=== PATIENT | male | born 1960 | race Hispanic/Latino ===

== ENCOUNTER 2019-03-11 22:20 | Emergency (ER) | payer OTHER ==
--- OUTSIDE RECORDS SUMMARY | 2019-03-11 22:22 | XMS REPORT | Summary of Care ---
:1960 Author Organization [facility] Address [address] [place] [id number] Care Team Providers Name Role Phone Oriana Albrecht MD Primary Care Provider Christos Brown MD Unavailable Unavailable Lawrence Goff MD Unavailable Reason for Visit Reason Comments Forms Encounter Details Date Type Department Care Team Description 11/08/2018 Telephone [facility] Cardiology- Andrea Cabrera MD Forms [place] [address] [facility] 146 [facility], [address] [place] [address] [place] [address] Allergies No Known Allergiesdocumented as of this encounter (statuses as of 11/18/2018) Medications Medication Sig Dispensed Refills Start Date End Date Status aspirin 81 mg chewable Take 1 tablet by 90 tablet 1 12/17/2015 Active tablet mouth daily. acetaminophen (TYLENOL Take 500 mg by 0 Active EXTRA STRENGTH) 500 mg mouth every 6 tablet (six) hours as needed for Pain. Blood-Glucose Meter Use TID, DX 1 Kit 0 03/30/2017 Active KitIndications: Type 2 E11.9 (Brand diabetes mellitus upon insurance without complication, approval) with long-term current use of insulin Insulin [place], Use as directed 1 Box 6 09/07/2017 Active Disposable, 30 gauge x 5/16" Ndle ipratropium 0.03 % Use 2 Sprays in 30 mL 3 03/21/2018 Active nasal each nostril 3 sprayIndications: (three) times Rhinorrhea daily. nitroglycerin Place 1 tablet 1 Bottle 3 03/21/2018 Active (NITROSTAT) 0.4 mg under the tongue sublingual every 5 (five) tabletIndications: minutes as Coronary artery needed for Chest disease involving pain. [place] coronary artery of [place] heart without angina pectoris insulin degludec inject 24 Units 3 Syringe 3 04/05/2018 Active (TRESIBA FLEXTOUCH under the skin U-100) 100 unit/mL (3 at bedtime. mL) InPnIndications: Type 2 diabetes mellitus without complication, without long-term current use of insulin Insulin Syringe-Needle Inject insulin 2 100 Syringe 11 06/19/2018 Active U-100 0.5 mL 31 gauge times a day. Dx x 09/05 code E11.9. SyrgIndications: Type 2 diabetes mellitus without complication, without long-term current use of insulin Insulin [place], Use with KwikPen 100 Each 3 06/19/2018 Active Disposable, once a day. (ULTRA-THIN II INS PEN E11.9 NEEDLES) 29 gauge x 1/2" NdleIndications: Type 2 diabetes mellitus without complication, with long-term current use of insulin lancets (FREESTYLE Use TID, DX 100 Each 06/19/2018 Active LANCETS) 28 gauge Misc E11.9 (Brand upon insurance approval) lancets-blood glucose 1 Each 3 (three) 100 Each 11 06/19/2018 Active strips 30 gauge Cmpk times daily. Use TID, DX E11.9 (Brand upon insurance approval) Patient request Verio flex one touch. ACCU-CHEK [place] strip Use as directed, 100 Strip 11 07/04/2018 Active TID, DX:E11.9 allopurinol 100 mg Take 1 tablet by 90 tablet 3 07/23/2018 Active tabletIndications: mouth daily. Primary osteoarthritis of left knee atorvastatin 80 mg TAKE 1 TABLET BY 90 tablet 1 09/13/2018 Active tabletIndications: MOUTH ONCE DAILY Chronic combined systolic and diastolic congestive heart failure metFORMIN 1,000 mg TAKE ONE TABLET 90 tablet 3 09/17/2018 Active tabletIndications: BY MOUTH ONCE Type 2 diabetes DAILY WITH mellitus without BREAKFAST complication, without long-term current use of insulin glipiZIDE XL 10 mg 24 Take 2 tablets 180 tablet 1 09/17/2018 Active hr tabletIndications: by mouth daily Type 2 diabetes with breakfast. mellitus without complication, without long-term current use of insulin isosorbide mononitrate Take 1 tablet by 30 tablet 2 09/18/2018 Active 30 mg 24 hr mouth daily. tabletIndications: Essential hypertension, Chronic combined systolic and diastolic congestive heart failure spironolactone 25 mg Take 1 tablet by 30 tablet 3 09/18/2018 Active tabletIndications: mouth daily. Chronic combined systolic and diastolic congestive heart failure clopidogrel 75 mg TAKE 1 TABLET BY 90 tablet 1 09/18/2018 Active tabletIndications: MOUTH ONCE DAILY Chronic combined systolic and diastolic congestive heart failure lisinopril 5 mg Take 2 tablets 30 tablet 2 09/18/2018 Active tabletIndications: by mouth daily. Essential hypertension, Type 2 diabetes mellitus without complication, without long-term current use of insulin metoprolol succinate TAKE 1 TABLET BY 30 tablet 2 09/18/2018 Active XL 50 mg 24 hr MOUTH ONCE DAILY tabletIndications: Essential hypertension furosemide 40 mg Take 0.5 tablets 45 tablet 0 11/05/2018 Active tabletIndications: by mouth daily. Essential hypertension documented as of this encounter (statuses as of 11/18/2018) Active Problems Problem Noted Date Dyspnea 07/24/2017 CASPER (dyspnea on exertion) 05/11/2017 Type 2 diabetes mellitus without complication, without long-term current 01/03 use of insulin KENYA (acute kidney injury) 09/05/2016 S/P ICD (internal cardiac defibrillator) procedure 08/08/2016 NSTEMI (non-ST elevated myocardial infarction) 12/13/2015 Hyperglycemia 12/13/2015 Chest pain 12/12/2015 Coronary artery disease involving [place] coronary artery without angina 2015 pectoris Essential hypertension 06/15/2014 Overview: ICD10 Diagnosis 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 S/p PCI ? vessel Ischemic cardiomyopathy 06/15/2014 Overview: EF 20% per pt 10/04 Smoking 1/2 pack a day or less 06/15/2014 Thyroid disease documented as of this encounter (statuses as of 11/18/2018) Resolved Problems Problem Noted Date Resolved Date Left ventricular apical thrombus 12/13/2015 01/12/2016 Overview: Likely LV apical thrombus but needs contrast ECHO to confirm. DM (diabetes mellitus) 06/15/2014 05/22/2016 documented as of this encounter (statuses as of 11/18/2018) Immunizations Name Administration Dates Next Due Influenza Virus Vaccine 01/24/2018 Influenza Virus Vaccine Quad IM 3+ YRS 02/12/2017, 02/03/2016 Pneumococcal Polysaccharide, PPSV23 (PNEUMOVAX) 01/24/2018, 02/03/2016 documented as of this encounter Social History Tobacco Use Types Packs/Day Years Used Date Former Smoker Cigarettes 1.5 25 Quit: 04/23/2015 Smokeless Tobacco: Never Used Alcohol Use Drinks/Week oz/Week Comments Yes 0 Standard drinks or equivalent 0.0 once a month Sex Assigned at Date Recorded Not on file Job Start Date Occupation Industry Not on file Not on file Not on file Travel History Travel Start Travel End No recent travel history available. documented as of this encounter Last Filed Vital Signs Not on filedocumented in this encounter Plan of Treatment Date Type Specialty Care Team Description 12/09/2018 Laboratory Only Flying Squad Worker, Adc Cardio Fac 1, Adc Cardio Fac Room 12/13/2018 Nurse Visit Cardiology Visit, Adc Nurse 05/05/2019 Office Visit Cardiology Andrea Cabrera MD [address] [place] [address] [phone] Health Maintenance Due Date Last Done Comments COLONOSCOPY 06/26/2011 LUNG CANCER SCREEN: 2016 Recommended for age 55-80 with 30 + pack year history FOOT EXAM 05/10/2018 05/10/2017, 05/10/2017, 12/20/2015 EYE EXAM 07/23/2018 07/23/2017 (Previously completed), 12/03/2013 (Previously completed) URINE MICROALBUMIN 08/15/2018 08/15/2017, 12/20/2015 INFLUENZA VACCINE 12/22/2018 01/24/2018, 02/12/2017, 02/03/2016 HgA1C 01/04/2019 07/04/2018, 03/26/2018, 11/07/2017, Additional history exists DTaP,Tdap,and Td Vaccines 03/21/2019 Postponed from (1 - Tdap) 1980 (Insurance / Financial) Zoster Recombinant Vaccine 03/21/2019 Postponed from (SHINGRIX) (1 of 2) 06/26/2011 (Insurance / Financial) LDL-C 03/26/2019 03/26/2018, 09/01/2016, 11/23/2015 CREATININE (SERUM) 11/07/2019 11/06/2018, 03/26/2018, 02/11/2018, Additional history exists HEPATITIS C (HCV) SCREEN Completed 08/15/2017 PNEUMOCOCCAL 0-64 YEARS Completed 01/24/2018, 02/03/2016 COMBINED SERIES documented as of this encounter Implants Implanted Type Area Almond Cutting Machine Tender Device Identifier Shelf Expiration Model / Date Serial / Lot Pacemaker PACEMAKER Chest documented as of this encounter Results Not on filedocumented in this encounter Insurance Payer Benefit Plan / Subscriber ID Effective Phone Address Type Group Dates [facility] MEDICARE [id number] 2016-Prese Medicare Adv HEALTHCARE - COMPLETE nt O MANAGED MEDICARE documented as of this encounter
--- OUTSIDE RECORDS SUMMARY | 2019-03-11 22:22 | XMS REPORT ---
:1960 Author Organization [facility] Address [address] [place] [address] Care Team Providers Name Role Phone Unavailable Unavailable Unavailable Problems This patient has no known problems. Allergies, Adverse Reactions, Alerts This patient has no known allergies or adverse reactions. Medications This patient has no known medications. Encounters Start End Encounter Admission Attending Care Care Encounter Date/Time Date/Time Type Type Clinicians Facility Department ID 2019-01-16 2019-01-16 Outpatient E [facility] [id number] 11:09:00 11:09:00
--- OUTSIDE RECORDS SUMMARY | 2019-03-11 22:23 | XMS REPORT | Summary of Care ---
:1960 Author Organization [facility] Address [address] [place] [address] Care Team Providers Name Role Phone Oriana Albrecht MD Primary Care Provider Christos Brown MD Unavailable Unavailable Lawrence Goff MD Unavailable Reason for Visit Reason Comments Forms Encounter Details Date Type Department Care Team Description 12/04/2018 Telephone [facility] Cardiology- Andrea Cabrera MD Forms [place] 146 [facility] 146 [facility], [address] [place] [address] [place] [address] Allergies No Known Allergiesdocumented as of this encounter (statuses as of 12/05/2018) Medications Medication Sig Dispensed Refills Start Date [...] with long-term current use of insulin Insulin [place], Use as directed 1 Box 6 09/07/2017 [...] artery needed for Chest disease involving pain. [place] coronary artery of [place] heart without angina pectoris insulin degludec inject [...] without long-term current use of insulin Insulin [place], Use with KwikPen 100 Each 3 06/19/2018 [...] as of this encounter (statuses as of 12/05/2018) Active Problems Problem Noted Date Dyspnea 07/24/2017 CASPER (dyspnea on exertion) 05/11/2017 Type 2 diabetes mellitus without complication, without long-term current 01/03 use of insulin KENYA (acute kidney injury) 09/05/2016 S/P ICD (internal cardiac defibrillator) procedure 08/08/2016 NSTEMI (non-ST elevated myocardial infarction) 12/13/2015 Hyperglycemia 12/13/2015 Chest pain 12/12/2015 Coronary artery disease involving [place] coronary artery without angina 2015 pectoris Essential hypertension 06/15/2014 Overview: ICD10 Diagnosis 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 S/p PCI ? vessel Ischemic cardiomyopathy 06/15/2014 Overview: EF 20% per pt 10/04 Smoking 1/2 pack a day or less 06/15/2014 Thyroid disease documented as of this encounter (statuses as of 12/05/2018) Resolved Problems Problem Noted Date Resolved Date Left ventricular apical thrombus 12/13/2015 01/12/2016 Overview: Likely LV apical thrombus but needs contrast ECHO to confirm. DM (diabetes mellitus) 06/15/2014 05/22/2016 documented as of this encounter (statuses as of 12/05/2018) Immunizations Name Administration Dates Next Due Influenza [...] Specialty Care Team Description 12/09/2018 Laboratory Only Contact Worker, Adc Cardio Fac 1, Adc Cardio Fac Room 12/13/2018 Nurse Visit Cardiology Visit, Adc Nurse 05/05/2019 Office Visit Cardiology Andrea Cabrera MD [address] [place] [address] [phone] Health Maintenance Due Date Last Done Comments COLONOSCOPY 06/26/2011 LUNG CANCER SCREEN: 2016 Recommended for age 55-80 with 30 + pack year history FOOT EXAM 05/10/2018 05/10/2017, 05/10/2017, 12/20/2015 EYE EXAM 07/23/2018 07/23/2017 (Previously completed), 12/03/2013 (Previously completed) URINE MICROALBUMIN 08/15/2018 08/15/2017, 12/20/2015 INFLUENZA VACCINE (#1) 2018 01/24/2018, 02/12/2017, 02/03/2016 HgA1C 01/04/2019 07/04/2018, 03/26/2018, [...] of this encounter Implants Implanted Type Area Plasma Processing Technician Device Identifier Shelf Expiration Model / Date Serial / Lot Pacemaker PACEMAKER Chest documented as of this encounter Results Not on filedocumented in this encounter Insurance Payer Benefit Plan / Subscriber ID Effective Phone Address Type Group Dates [facility] MEDICARE [id number] 2016-Prese Medicare Adv HEALTHCARE - COMPLETE nt O MANAGED MEDICARE documented as of this encounter
--- OUTSIDE RECORDS SUMMARY | 2019-03-11 22:23 | XMS REPORT | Summary of Care ---
:1960 Author Organization [facility] Address [address] [place], [place] [id number] Care Team Providers Name Role Phone Oriana Albrecht MD Primary Care Provider Christos Brown MD Unavailable Unavailable Lawrence Goff MD Unavailable Encounter Details Date Type Department Care Team Description 11/16/2018 Orders Only [facility] Doctor Unassigned, No [address] [place] [address] [place] [address] [address] [place] [address] Allergies No Known Allergiesdocumented as of this encounter (statuses as of 11/19/2018) Medications Medication Sig Dispensed Refills Start Date [...] with long-term current use of insulin Insulin [place], Use as directed 1 Box 6 09/07/2017 [...] artery needed for Chest disease involving pain. [place] coronary artery of [place] heart without angina pectoris insulin degludec inject [...] without long-term current use of insulin Insulin [place], Use with KwikPen 100 Each 3 06/19/2018 Active Disposable, once a day. (ULTRA-THIN II INS PEN E11.9 NEEDLES) 29 gauge x 1/2" NdleIndications: Type 2 diabetes mellitus without complication, with long-term current use of insulin lancets (FREESTYLE Use TID, DX 100 Each 06/19/2018 Active LANCETS) 28 gauge Misc E11.9 (Brand upon insurance approval) lancets-blood glucose 1 Each 3 (three) 100 Each 06/19/2018 Active strips 30 gauge Cmpk times [...] as of this encounter (statuses as of 11/19/2018) Active Problems Problem Noted Date Dyspnea 07/24/2017 CASPER (dyspnea on exertion) 05/11/2017 Type 2 diabetes mellitus without complication, without long-term current 01/03 use of insulin KENYA (acute kidney injury) 09/05/2016 S/P ICD (internal cardiac defibrillator) procedure 08/08/2016 NSTEMI (non-ST elevated myocardial infarction) 12/13/2015 Hyperglycemia 12/13/2015 Chest pain 12/12/2015 Coronary artery disease involving [place] coronary artery without angina 2015 pectoris Essential hypertension 06/15/2014 Overview: ICD10 Diagnosis Term Nurse Clinical Utility Acute on chronic combined systolic and diastolic congestive heart failure Overview: ICD10 Diagnosis Term Nurse Clinical Utility Hypothyroidism 06/15/2014 Myocardial infarction 06/15/2014 Overview: Indigestion -STEMI 10/04. S/p PCI ? vessel Ischemic cardiomyopathy 06/15/2014 Overview: EF 20% per pt 10/04 Smoking 1/2 pack a day or less 06/15/2014 Thyroid disease documented as of this encounter (statuses as of 11/19/2018) Resolved Problems Problem Noted Date Resolved Date Left ventricular apical thrombus 12/13/2015 01/12/2016 Overview: Likely LV apical thrombus but needs contrast ECHO to confirm. DM (diabetes mellitus) 06/15/2014 05/22/2016 documented as of this encounter (statuses as of 11/19/2018) Immunizations Name Administration Dates Next Due Influenza [...] Specialty Care Team Description 12/09/2018 Laboratory Only Continuous Dryout Operator, Adc Cardio Fac 1, Adc Cardio Fac Room 12/13/2018 Nurse Visit Cardiology Visit, Adc Nurse 05/05/2019 Office Visit Cardiology Andrea Cabrera MD [address] [place] [address] [place] [phone] Health Maintenance Due Date Last Done Comments [...] of this encounter Implants Implanted Type Area Controller Repairer And Tester Device Identifier Shelf Expiration Model / Date Serial / Lot Pacemaker PACEMAKER Chest documented as of this encounter Procedures Procedure Name Priority Date/Time Associated Diagnosis Comments PHYSICIAN CERTIFICATION Routine 11/16/2018 12:01 AM STATEMENT CDT documented in this encounter Results Not on filedocumented in this encounter Insurance Payer Benefit Plan / Subscriber ID Effective Phone Address Type Group Dates [facility] MEDICARE [id number] 2016-[facility] Medicare Adv HEALTHCARE - COMPLETE nt O MANAGED MEDICARE documented as of this encounter
--- OUTSIDE RECORDS SUMMARY | 2019-03-11 22:23 | XMS REPORT | Summary of Care ---
:1960 Author Organization [facility] Address [address] [place] [address] Care Team Providers Name Role Phone Oriana Albrecht MD Primary Care Provider Christos Brown MD Unavailable Unavailable Lawrence Goff MD Unavailable Reason for Visit Reason Comments Pacemaker Check NURSE VISIT Encounter Details Date Type Department Care Team Description 12/20/2018 Nurse Visit [facility] Andrea Cabrera MD [address] [place] [address] [address] [place] [address] Encounter for Cardiology- [place] Visit, Adc Nurse interrogation of [address] [place] [address], [address] (Primary Dx) [place] [address] Allergies No Known Allergiesdocumented as of this encounter (statuses as of 12/20/2018) Medications Medication Sig Dispensed Refills Start Date [...] with long-term current use of insulin Insulin [place], Use as directed 1 Box 6 09/07/2017 [...] artery needed for Chest disease involving pain. [place] coronary artery of [place] heart without angina pectoris insulin degludec inject [...] without long-term current use of insulin Insulin [place], Use with KwikPen 100 Each 3 06/19/2018 [...] as of this encounter (statuses as of 12/20/2018) Active Problems Problem Noted Date Dyspnea 07/24/2017 CASPER (dyspnea on exertion) 05/11/2017 Type 2 diabetes mellitus without complication, without long-term current 01/03 use of insulin KENYA (acute kidney injury) 09/05/2016 S/P ICD (internal cardiac defibrillator) procedure 08/08/2016 NSTEMI (non-ST elevated myocardial infarction) 12/13/2015 Hyperglycemia 12/13/2015 Chest pain 12/12/2015 Coronary artery disease involving [place] coronary artery without angina 2015 pectoris Essential hypertension 06/15/2014 Overview: ICD10 Diagnosis 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 S/p PCI ? vessel Ischemic cardiomyopathy 06/15/2014 Overview: EF 20% per pt 10/04 Smoking 1/2 pack a day or less 06/15/2014 Thyroid disease documented as of this encounter (statuses as of 12/20/2018) Resolved Problems Problem Noted Date Resolved Date Left ventricular apical thrombus 12/13/2015 01/12/2016 Overview: Likely LV apical thrombus but needs contrast ECHO to confirm. DM (diabetes mellitus) 06/15/2014 05/22/2016 documented as of this encounter (statuses as of 12/20/2018) Immunizations Name Administration Dates Next Due Influenza [...] Signs Not on filedocumented in this encounter Progress Notes Fawn Escalante RN - 12/20/2018 10:30 AM CDTPatient here for pacemaker check. [employer] sales development representative at bedside and performed download. Report given to MD for review/interpretation. Patient scheduled for f/u as recommended. Normal device function, no events. documented in this encounter Plan of Treatment Date Type Specialty Care Team Description 03/12/2019 Nurse Visit Cardiology Visit, Adc Nurse 05/05/2019 Office Visit Cardiology Andrea Cabrera MD [address] [place] [address] [place] [phone] Health Maintenance Due Date Last Done Comments [...] of this encounter Implants Implanted Type Area Interlocker Device Identifier Shelf Expiration Model / Date Serial / Lot Pacemaker PACEMAKER Chest documented as of this encounter Results Not on filedocumented in this encounter Visit Diagnoses Diagnosis Encounter for interrogation of cardiac defibrillator - Primary Fitting and adjustment of automatic implantable cardiac defibrillator documented in this encounter Insurance Payer Benefit Plan / Subscriber ID Effective Phone Address Type Group Dates [employer] MEDICARE [id number] 2016-Prese Medicare Adv HEALTHCARE - COMPLETE nt O MANAGED MEDICARE documented as of this encounter
--- OUTSIDE RECORDS SUMMARY | 2019-03-11 22:24 | XMS REPORT | Summary of Care ---
:1960 Author Organization [facility] - [facility] Address [address] [place] [address] Care Team Providers Name Role Phone Oriana Albrecht MD Primary Care Provider Christos Brown MD Unavailable Unavailable Lawrence Goff MD Unavailable Reason for Visit Reason Comments Pacemaker Check NURSE VISIT Encounter Details Date Type Department Care Team Description 12/20/2018 Nurse Visit [facility] Andrea Cabrera MD [address] [place] [address] [address] [place] [address] Encounter for interrogation of cardiac defibrillator ( Primary Dx); Cardiology- [place] Visit, Adc Nurse Chronic systolic heart failure; [address] [place] [address] Coronary artery disease involving [place] coronary artery of [place] heart without angina pectoris; Drive, [address] CASPER (dyspnea on exertion) [place] [address] Allergies No Known Allergiesdocumented as of this encounter (statuses as of 12/24/2018) Medications Medication Sig Dispensed Refills Start Date [...] with long-term current use of insulin Insulin [place], Use as directed 1 Box 6 09/07/2017 [...] artery needed for Chest disease involving pain. [place] coronary artery of [place] heart without angina pectoris insulin degludec inject [...] without long-term current use of insulin Insulin [place], Use with KwikPen 100 Each 3 06/19/2018 Active Disposable, once a day. (ULTRA-THIN II INS PEN E11.9 NEEDLES) 29 gauge x 1/2" NdleIndications: Type 2 diabetes mellitus without complication, with long-term current use of insulin lancets (FREESTYLE Use TID, DX 100 Each 11 06/19/2018 Active LANCETS) 28 gauge Misc E11.9 [...] as of this encounter (statuses as of 12/24/2018) Active Problems Problem Noted Date Dyspnea 07/24/2017 CASPER (dyspnea on exertion) 05/11/2017 Type 2 diabetes mellitus without complication, without long-term current 01/03 use of insulin KENYA (acute kidney injury) 09/05/2016 S/P ICD (internal cardiac defibrillator) procedure 08/08/2016 NSTEMI (non-ST elevated myocardial infarction) 12/13/2015 Hyperglycemia 12/13/2015 Chest pain 12/12/2015 Coronary artery disease involving [place] coronary artery without angina 2015 pectoris Essential hypertension 06/15/2014 Overview: ICD10 Diagnosis Term Reconditioner Utility Acute on chronic combined systolic and diastolic congestive heart failure Overview: ICD10 Diagnosis Term Reconditioner Utility Hypothyroidism 06/15/2014 Myocardial infarction 06/15/2014 Overview: Indigestion -STEMI 10/04. S/p PCI ? vessel Ischemic cardiomyopathy 06/15/2014 Overview: EF 20% per pt 10/04 Smoking 1/2 pack a day or less 06/15/2014 Thyroid disease documented as of this encounter (statuses as of 12/24/2018) Resolved Problems Problem Noted Date Resolved Date Left ventricular apical thrombus 12/13/2015 01/12/2016 Overview: Likely LV apical thrombus but needs contrast ECHO to confirm. DM (diabetes mellitus) 06/15/2014 05/22/2016 documented as of this encounter (statuses as of 12/24/2018) Immunizations Name Administration Dates Next Due Influenza [...] on filedocumented in this encounter Progress Notes Lucia Craft MD - 12/20/2018 10:30 AM CDTEP Cardiac Device Check Evaluation performed: Interrogation and programing single lead ICD Device: [employer] Inventra VR-T DX Mode: VDI 40 bpm Battery: 100 % Right Ventricular Lead: Sensin.6 mV Impedance: 461 Ohms Threshold: 1.1 V @ 0.4 ms Shock Impedance: 76 Ohms Zones: 2 zones VF 270 1 * Burst - 1 * 45.0 1 * 45.0 6 * 45.0 VT2 340 - - 1 * 45.0 1 * 45.0 6 * 45.0 Atr. Mon 300 Jim. Mon 400 Arrhythmias: none Recommendations: Normal functioning device and leads. Follow up in 6 months. Kunal Craft MD Breast Splitter, Division of Cardiology [facility] Fawn Ulloa RN - 12/20/2018 10:30 AM CDTPatient here for pacemaker check. [employer] sales representative at bedside and performed download. Report given to MD for review/interpretation. Patient scheduled for f/u as recommended. Normal device function, no events. documented in this encounter Plan of Treatment Date Type Specialty Care Team Description 01/09/2019 Laboratory Only Analysis Manager, Adc Cardio Fac 1, Adc Cardio Fac Room 03/12/2019 Nurse Visit Cardiology Visit, Adc Nurse 05/05/2019 Office Visit Cardiology Andrea Cabrera MD [address] [place] [address] [place] [address] Health Maintenance Due Date Last Done Comments [...] of this encounter Implants Implanted Type Area Computer Support Specialist Device Identifier Shelf Expiration Model / Date Serial / Lot Pacemaker PACEMAKER Chest documented as of this encounter Results Not on filedocumented in this encounter Visit Diagnoses Diagnosis Encounter for interrogation of cardiac defibrillator - Primary Fitting and adjustment of automatic implantable cardiac defibrillator Chronic systolic heart failure Coronary artery disease involving [place] coronary artery of [place] heart without angina pectoris CASPER (dyspnea on exertion) Other dyspnea and respiratory abnormality documented in this encounter Insurance Payer Benefit Plan / Subscriber ID Effective Phone Address Type Group Dates [place] AARP MEDICARE [id number] 2016-Prese Medicare Adv HEALTHCARE - COMPLETE nt [facility] [place] MEDICARE documented as of this encounter
--- OUTSIDE RECORDS SUMMARY | 2019-03-11 22:24 | XMS REPORT | Summary of Care ---
:1960 Author Organization [facility] - Health Address [address] [place] [address] Care Team Providers Name Role Phone Oriana Albrecht MD Primary Care Provider Christos Brown MD Unavailable Unavailable Lawrence Goff MD Unavailable Reason for Visit Reason Comments Lab Results Encounter Details Date Type Department Care Team Description 01/07/2019 Telephone [facility] Pediatric and Oriana Albrecht, Lab Results Adult Primary Care- MD Gomes [address] [place] [address] [address] [facility] , [address] [place] [address] [place] [address] Allergies No Known Allergiesdocumented as of this encounter (statuses as of 01/10/2019) Medications Medication Sig Dispensed Refills Start Date [...] with long-term current use of insulin Insulin [place], Use as directed 1 Box 6 09/07/2017 [...] artery needed for Chest disease involving pain. [place] coronary artery of [place] heart without angina pectoris insulin degludec inject [...] without long-term current use of insulin Insulin [place], Use with KwikPen 100 Each 3 06/19/2018 [...] as of this encounter (statuses as of 01/10/2019) Active Problems Problem Noted Date Dyspnea 07/24/2017 CASPER (dyspnea on exertion) 05/11/2017 Type 2 diabetes mellitus without complication, without long-term current 01/03 use of insulin KENYA (acute kidney injury) 09/05/2016 S/P ICD (internal cardiac defibrillator) procedure 08/08/2016 NSTEMI (non-ST elevated myocardial infarction) 12/13/2015 Hyperglycemia 12/13/2015 Chest pain 12/12/2015 Coronary artery disease involving [place] coronary artery without angina 2015 pectoris Essential hypertension 06/15/2014 Overview: ICD10 Diagnosis Term Microsoft Developer Utility Acute on chronic combined systolic and diastolic congestive heart failure Overview: ICD10 Diagnosis Term Microsoft Developer Utility Hypothyroidism 06/15/2014 Myocardial infarction 06/15/2014 Overview: Indigestion -STEMI 10/04. S/p PCI ? vessel Ischemic cardiomyopathy 06/15/2014 Overview: EF 20% per pt 10/04 Smoking 1/2 pack a day or less 06/15/2014 Thyroid disease documented as of this encounter (statuses as of 01/10/2019) Resolved Problems Problem Noted Date Resolved Date Left ventricular apical thrombus 12/13/2015 01/12/2016 Overview: Likely LV apical thrombus but needs contrast ECHO to confirm. DM (diabetes mellitus) 06/15/2014 05/22/2016 documented as of this encounter (statuses as of 01/10/2019) Immunizations Name Administration Dates Next Due Influenza [...] Treatment Date Type Specialty Care Team Description 01/24/2019 Office Visit Internal Medicine Oriana Albrecht MD [address] [place] [address] [facility] [address] [place], [place] [id number] 03/12/2019 Nurse Visit Cardiology Visit, Adc Nurse 05/05/2019 Office Visit Cardiology Andrea Cabrera MD [address] [place] [address] [address] [place], [place] [phone] Health Maintenance Due Date Last Done Comments [...] of this encounter Implants Implanted Type Area Rfid Developer Device Identifier Shelf Expiration Model / Date Serial / Lot Pacemaker PACEMAKER Chest documented as of this encounter Results Not on filedocumented in this encounter Insurance Payer Benefit Plan / Subscriber ID Effective Phone Address Type Group Dates [place] AARP MEDICARE [id number] 2016-Prese Medicare Adv HEALTHCARE - COMPLETE nt [place] MANAGED MEDICARE documented as of this encounter
--- OUTSIDE RECORDS SUMMARY | 2019-03-11 22:24 | XMS REPORT | Summary of Care ---
:1960 Author Organization [facility] - [facility] Address [address] [place] [address] Care Team Providers Name Role Phone Oriana Albrecht MD Primary Care Provider Christos Brown MD Unavailable Unavailable Lawrence Goff MD Unavailable Reason for Visit Reason Comments Pacemaker Check NURSE VISIT Encounter Details Date Type Department Care Team Description 12/20/2018 Nurse Visit [facility] Andrea Cabrera MD [address] [place] [address] DR[address] [place] [address] Encounter for Cardiology- [place] Visit, Adc Nurse interrogation of [address] [place] [address], [address] (Primary Dx) [place] [address] Allergies No Known Allergiesdocumented as [...] with long-term current use of insulin Insulin [place], Use as directed 1 Box 6 09/07/2017 [...] artery needed for Chest disease involving pain. [place] coronary artery of [place] heart without angina pectoris insulin degludec inject [...] without long-term current use of insulin Insulin [place], Use with KwikPen 100 Each 3 06/19/2018 [...] Chest pain 12/12/2015 Coronary artery disease involving [place] coronary artery without angina 2015 pectoris Essential hypertension 06/15/2014 Overview: ICD10 Diagnosis Term Hog Slaughterer Utility Acute on chronic combined systolic and diastolic congestive heart failure Overview: ICD10 Diagnosis Term Hog Slaughterer Utility Hypothyroidism 06/15/2014 Myocardial infarction 06/15/2014 Overview: [...] AM CDTPatient here for pacemaker check. [employer] business services representative at bedside and performed download. Report given to MD for review/interpretation. Patient scheduled for f/u as recommended. Normal device function, no events. documented in this encounter Plan of Treatment Date Type Specialty Care Team Description 01/09/2019 Laboratory Only Pricing Intern, Adc Cardio Fac 1, Adc Cardio Fac Room 03/12/2019 Nurse Visit Cardiology Visit, Adc Nurse 05/05/2019 Office Visit Cardiology Andrea Cabrera MD [address] [place] [address] [phone] Health Maintenance Due Date Last Done Comments [...] of this encounter Implants Implanted Type Area Lead Pressman Roto Gravure Printing Device Identifier Shelf Expiration Model / Date [...] Address Type Group Dates [place] AARP MEDICARE [id number] 2016-Prese Medicare Adv HEALTHCARE - COMPLETE nt [place] MANAGED MEDICARE documented as of this encounter
--- OUTSIDE RECORDS SUMMARY | 2019-03-11 22:24 | XMS REPORT | Summary of Care ---
:1960 Author Organization [facility] - [facility] Address [address] [place] [address] Care Team Providers Name Role Phone Oriana Albrecht MD Primary Care Provider Christos Brown MD Unavailable Unavailable Lawrence Goff MD Unavailable Reason for Referral (Routine) Status Reason Specialty Diagnoses / Procedures Referred By Contact Referred To Contact Closed Cardiology Diagnoses Chronic systolic heart failure Andrea Cabrera MD Procedures ECHO ROUTINE W/DOPPLER COLOR Preferred Location: [address] [place] [address] Reason for Visit (Routine) Status Reason Specialty Diagnoses / Procedures Referred By Contact Referred To Contact Closed Cardiology Diagnoses Chronic systolic heart failure Andrea Cabrera MD Procedures ECHO ROUTINE W/DOPPLER COLOR Preferred Location: [address] [place] [address] Encounter Details Date Type Department Care Team Description 01/09/2019 Laboratory Only [facility] Lucia Craft MD [address] [place] [phone] Chronic systolic Cardiology- [facility], [facility] Cardio Fac heart failure [address] [place] [address], [facility] Cardio Fac [facility], [address] [place] [phone] Allergies No Known Allergiesdocumented as of this encounter (statuses as of 01/09/2019) Medications Medication Sig Dispensed Refills Start Date [...] with long-term current use of insulin Insulin [place], Use as directed 1 Box 6 09/07/2017 Active Disposable, 30 gauge x /16" Ndle ipratropium 0.03 % Use 2 Sprays in 30 mL 3 03/21/2018 Active nasal each nostril 3 sprayIndications: (three) times Rhinorrhea daily. nitroglycerin Place 1 tablet 1 Bottle 3 03/21/2018 Active (NITROSTAT) 0.4 mg under the tongue sublingual every 5 (five) tabletIndications: minutes as Coronary artery needed for Chest disease involving pain. [place] coronary artery of [place] heart without angina pectoris insulin degludec inject [...] without long-term current use of insulin Insulin [place], Use with KwikPen 100 Each 3 06/19/2018 [...] Active tabletIndications: by mouth daily. Essential hypertension Hospital, Clinic, or Other Ordered Dose Route Frequency Start Date End Date Status Facility Administered Medication sulfur hexafluoride 5 mL IV ONCE 01/09/2019 01/09/2019 Ended microsphr (LUMASON) injection 5 mL documented as of this encounter (statuses as of 01/09/2019) Active Problems Problem Noted Date Dyspnea 07/24/2017 CASPER (dyspnea on exertion) 05/11/2017 Type 2 diabetes mellitus without complication, without long-term current 01/03 use of insulin KENYA (acute kidney injury) 09/05/2016 S/P ICD (internal cardiac defibrillator) procedure 08/08/2016 NSTEMI (non-ST elevated myocardial infarction) 12/13/2015 Hyperglycemia 12/13/2015 Chest pain 12/12/2015 Coronary artery disease involving [place] coronary artery without angina 2015 pectoris Essential hypertension 06/15/2014 Overview: ICD10 Diagnosis Term Public Relations Professional Utility Acute on chronic combined systolic and diastolic congestive heart failure Overview: ICD10 Diagnosis Term Public Relations Professional Utility Hypothyroidism 06/15/2014 Myocardial infarction 06/15/2014 Overview: Indigestion -STEMI 10/04. S/p PCI ? vessel Ischemic cardiomyopathy 06/15/2014 Overview: EF 20% per pt 10/04 Smoking 1/2 pack a day or less 06/15/2014 Thyroid disease documented as of this encounter (statuses as of 01/09/2019) Resolved Problems Problem Noted Date Resolved Date Left ventricular apical thrombus 12/13/2015 01/12/2016 Overview: Likely LV apical thrombus but needs contrast ECHO to confirm. DM (diabetes mellitus) 06/15/2014 05/22/2016 documented as of this encounter (statuses as of 01/09/2019) Immunizations Name Administration Dates Next Due Influenza [...] of this encounter Last Filed Vital Signs Vital Sign Reading Time Taken Comments Blood Pressure 164/85 01/09/2019 9:09 AM CDT Pulse 66 01/09/2019 9:09 AM CDT Temperature - - Respiratory Rate - - Oxygen Saturation - - Inhaled Oxygen Concentration - - Weight 86.2 kg (190 lb) 01/09/2019 9:09 AM CDT Height 175.3 cm (5' 9") 01/09/2019 9:09 AM CDT Body Mass Index 28.06 01/09/2019 9:09 AM CDT documented in this encounter Plan of Treatment Date Type Specialty Care Team Description 01/24/2019 Office Visit Internal Medicine Oriana Albrecht MD [address] [place] [address] [address] [place], [place] [address] 03/12/2019 Nurse Visit Cardiology Visit, Adc Nurse 05/05/2019 Office Visit Cardiology Andrea Cabrera MD [address] [place] [address] [address] [place] [address] Health Maintenance Due Date Last Done [...] of this encounter Implants Implanted Type Area Industrial Controller Device Identifier Shelf Expiration Model / Date Serial / Lot Pacemaker PACEMAKER Chest documented as of this encounter Results Not on filedocumented in this encounter Visit Diagnoses Diagnosis Chronic systolic heart failure documented in this encounter Administered Medications Medication Order MAR Action Action Date Dose Rate Site sulfur hexafluoride microsphr Given 01/09/2019 9:35 AM CDT 5 mL (LUMASON) injection 5 mL 5 mL, Intravenous, ONCE, 1 dose, [place] 01/09/19 at 1045, Routine documented in this encounter Insurance Payer Benefit Plan / Subscriber ID Effective Phone Address Type Group Dates [place] AARP MEDICARE [id number] 2016-Prese Medicare Adv HEALTHCARE - COMPLETE nt [place] MANAGED MEDICARE documented as of this encounter
[2019-03-11] MEDS ORDERED: ALBUTEROL 2.5 MG/3 ML NEB SOL ONE (22:46)
[2019-03-11] MEDS ORDERED: IPRATROPIUM BROM 0.5MG/2.5ML ONE (22:46)
--- NOTE | 2019-03-11 23:34 | EDPHYS ---
Physician Documentation [facility] Name: Srinivasa Hernandez Age: 58 yrs Sex: Male : 1960 Arrival Date: 03/11/2019 Time: 22:23 Bed 24 Private MD: ED Physician Tyler Fletcher HPI: 03/12 06:31 This 58 yrs old Male presents to ER via EMS with complaints of Shortness Of tw4 Breath, Cough, Nausea. 06:31 The patient has shortness of breath at rest. Duration: The symptoms are continuous, and tw4 are unchanged since they started. The patient's shortness of breath has no apparent modifying factors. Associated signs and symptoms: The patient has no apparent associated signs or symptoms. Severity of symptoms: At their worst the symptoms were moderate in the emergency department the symptoms are unchanged. The patient has not experienced similar symptoms in the past. 06:31 Onset: The symptoms/episode began/occurred 4 month(s) ago, and became worse today. tw4 Historical: - Allergies: 03/11 22:39 No Known Allergies; tr5 - Home Meds: 22:39 Aspirin Oral [Active]; clopidogrel Oral [Active]; Furosemide Oral [Active]; lisinopril tr5 Oral [Active]; Metformin Oral [Active]; Spironolactone Oral [Active]; 22:58 glipizide 10 mg Oral tab [Active]; atorvastatin 80 mg oral tab [Active]; Metoprolol tr5 Tartrate Oral [Active]; isosorbide mononitrate 30 mg Oral Tb24 [Active]; - PMHx: 22:39 Diabetes - IDDM; Hypertension; lifevest in place; Myocardial infarction; tr5 - PSHx: 22:39 CABG; Heart stents; tr5 - Immunization history:: Adult Immunizations up to date. - Social history:: Smoking status: Patient/guardian denies using tobacco. - Ebola Screening: : No symptoms or risks identified at this time. ROS: 03/12 06:31 Constitutional: Negative for fever, chills, and weight loss, Eyes: Negative for injury, tw4 pain, redness, and discharge, Cardiovascular: Negative for chest pain, palpitations, and edema, Abdomen/GI: Negative for abdominal pain, nausea, vomiting, diarrhea, and constipation, Back: Negative for injury and pain, MS/Extremity: Negative for injury and deformity, Skin: Negative for injury, rash, and discoloration, Neuro: Negative for headache, weakness, numbness, tingling, and seizure. Respiratory: Positive for cough, shortness of breath. Exam: 06:36 Constitutional: This is a well developed, well nourished patient who is awake, alert, tw4 and in no acute distress. Head/Face: Normocephalic, atraumatic. Chest/axilla: Normal chest wall appearance and motion. Nontender with no deformity. No lesions are appreciated. Cardiovascular: Regular rate and rhythm with a normal S1 and S2. No gallops, murmurs, or rubs. Normal PMI, no JVD. No pulse deficits. Abdomen/GI: Soft, non-tender, with normal bowel sounds. No distension or tympany. No guarding or rebound. No evidence of tenderness throughout. Back: No spinal tenderness. No costovertebral tenderness. Full range of motion. Skin: Warm, dry with normal turgor. Normal color with no rashes, no lesions, and no evidence of cellulitis. MS/ Extremity: Pulses equal, no cyanosis. Neurovascular intact. Full, normal range of motion. Neuro: Awake and alert, GCS 15, oriented to person, place, time, and situation. Cranial nerves II-XII grossly intact. Motor strength 5/5 in all extremities. Sensory grossly intact. Cerebellar exam normal. Normal gait. Vital Signs: 03/11 22:24 BP 161 / 81; Pulse 83; Resp 16; Temp 97.7(O); Pulse Ox 100% ; lt1 23:40 BP 145 / 66; Pulse 82; Resp 16; Pulse Ox 99% on R/A; tr5 MDM: 22:26 Patient medically screened. tw4 03/12 06:36 Differential diagnosis: asthma, CHF exacerbation, pneumonia, pulmonary edema, Pulmonary tw4 Embolism reactive airway disease. Antibiotic administration: Not indicated. Data reviewed: vital signs, nurses notes. Data reviewed: radiologic studies, plain films. Data interpreted: Pulse oximetry: Interpretation: normal. Test interpretation: by ED physician or midlevel provider: plain radiologic studies. Counseling: I had a detailed discussion with the patient and/or guardian regarding: the historical points, exam findings, and any diagnostic results supporting the discharge/admit diagnosis, radiology results. Medication response: albuterol nebulizer treatment(s) markedly relieved the patient's wheezing. Response to treatment: the patient's symptoms have resolved after treatment, and as a result, I will discharge patient. Special discussion: I discussed with the patient/guardian in detail that at this point there is no indication for admission to the hospital. It is understood, however, that if the symptoms persist or worsen the patient needs to return immediately for re-evaluation. 03/11 22:27 Order name: CXR XRAY tw4 Administered Medications: 03/11 22:53 Drug: DuoNeb (3:1) (2.5 mg - 0.5 mg) 3 ml Route: Nebulizer; tr5 Disposition: 03/12 06:38 Chart complete. tw4 Disposition: 03/11/19 23:34 Discharged to Home. Impression: Acute bronchospasm. - Condition is Stable. - Discharge Instructions: Bronchospasm, Adult, How to Use an Inhaler. - Prescriptions for Medrol (Isak) 4 mg Oral Tablets, Dose Pack - take 1 tablet by ORAL route as directed - follow package instructions; 1 packet. Albuterol Sulfate 90 mcg/actuation - inhale 1-2 puff by INHALATION route every 4-6 hours; 1 Inhaler. - Medication Reconciliation Form, Thank You Letter, Antibiotic Education, Prescription Opioid Use form. - Follow up: Private Physician; When: Upon discharge from the Emergency Department; Reason: Recheck today's complaints, Continuance of care. - Problem is new. - Symptoms have improved. Signatures: Dispatcher [employer] Tyler Felipe MD MD tw4 Davin Zvaala RN RN tr5 Corrections: (The following items were deleted from the chart) 03/11 23:42 23:34 03/11/2019 23:34 Discharged to Home. Impression: Acute bronchospasm. Condition is tr5 Stable. Forms are Medication Reconciliation Form, Thank You Letter, Antibiotic Education, Prescription Opioid Use. Follow up: Private Physician; When: Upon discharge from the Emergency Department; Reason: Recheck today's complaints, Continuance of care. Problem is new. Symptoms have improved. tw4 03/12 06:36 06:31 Onset: The symptoms/episode began/occurred today, tw4 tw4
--- NOTE | 2019-03-11 23:34 | ER ---
Nurse's Notes [facility] Name: Srinivasa Hernandez Age: 58 yrs Sex: Male : 1960 Arrival Date: 03/11/2019 Time: 22:23 Bed 24 Private MD: Diagnosis: Acute bronchospasm Presentation: 03/11 22:24 Presenting complaint: EMS states: He has been having nausea, shortness of breath and a tr5 cough for about 2 days now and his son noticed it got worse so called ems. Transition of care: patient was not received from another setting of care. Onset of symptoms was March 11, 2019. Risk Assessment: Do you want to hurt yourself or someone else? Patient reports no desire to harm self or others. Initial Sepsis Screen: Does the patient meet any 2 criteria? No. Patient's initial sepsis screen is negative. Does the patient have a suspected source of infection? No. Patient's initial sepsis screen is negative. Care prior to arrival: Glucose check: 134. 22:24 Method Of Arrival: EMS: [facility] tr5 22:24 Acuity: MARILUZ 3 tr5 Historical: - Allergies: 22:39 No Known Allergies; tr5 - Home Meds: 22:39 Aspirin Oral [Active]; clopidogrel Oral [Active]; Furosemide Oral [Active]; lisinopril tr5 Oral [Active]; Metformin Oral [Active]; Spironolactone Oral [Active]; 22:58 glipizide 10 mg Oral tab [Active]; atorvastatin 80 mg oral tab [Active]; Metoprolol tr5 Tartrate Oral [Active]; isosorbide mononitrate 30 mg Oral Tb24 [Active]; - PMHx: 22:39 Diabetes - IDDM; Hypertension; lifevest in place; Myocardial infarction; tr5 - PSHx: 22:39 CABG; Heart stents; tr5 - Immunization history:: Adult Immunizations up to date. - Social history:: Smoking status: Patient/guardian denies using tobacco. - Ebola Screening: : No symptoms or risks identified at this time. Screenin:58 Abuse screen: Denies threats or abuse. Nutritional screening: No deficits noted. tr5 Tuberculosis screening: No symptoms or risk factors identified. Fall Risk None identified. Assessment: 23:06 General: Appears in no apparent distress. Behavior is calm, cooperative, appropriate tr5 for age. Pain: Denies pain. Neuro: Level of Consciousness is awake, alert, obeys commands, Oriented to person, place, time, Blood Bank Technician are equal bilaterally. Cardiovascular: Heart tones present Capillary refill < 3 seconds Pulses are all present. Edema is absent. Rhythm is regular. Respiratory: Reports shortness of breath cough that is Airway is patent Respiratory effort is even, unlabored, Respiratory pattern is symmetrical, Breath sounds are diminished bilaterally. GI: Reports nausea. : No signs and/or symptoms were reported regarding the genitourinary system. EENT: No signs and/or symptoms were reported regarding the EENT system. Derm: No signs and/or symptoms reported regarding the dermatologic system. Musculoskeletal: No signs and/or symptoms reported regarding the musculoskeletal system. Vital Signs: 22:24 BP 161 / 81; Pulse 83; Resp 16; Temp 97.7(O); Pulse Ox 100% ; lt1 23:40 BP 145 / 66; Pulse 82; Resp 16; Pulse Ox 99% on R/A; tr5 ED Course: 22:23 Patient arrived in ED. tr5 22:26 Tyler Fletcher MD is Attending Physician. tw4 22:36 Triage completed. tr5 22:39 Arm band placed on right wrist. tr5 22:43 Davin Zavala RN is Primary Nurse. tr5 22:58 Bed in low position. Call light in reach. Side rails up X 1. tr5 23:06 CXR XRAY In Process Unspecified. EDMS 23:40 No provider procedures requiring assistance completed. Patient did not have IV access tr5 during this emergency room visit. Administered Medications: 22:53 Drug: DuoNeb (3:1) (2.5 mg - 0.5 mg) 3 ml Route: Nebulizer; tr5 Outcome: 23:34 Discharge ordered by . tw4 23:40 Discharged to home ambulatory. tr5 23:40 Condition: stable 23:40 Discharge instructions given to patient, family, Instructed on discharge instructions, follow up and referral plans. medication usage, Demonstrated understanding of instructions, follow-up care, medications, Prescriptions given X 2. 23:42 Patient left the ED. tr5 Signatures: Dispatcher [employer] EDMS Tyler Fletcher MD MD tw4 Larissa Carrillo lt1 Davin Zavala, RN RN tr5
[2019-03-11 23:54] VITALS: TEMP 97.7
[2019-03-11 23:55] VITALS: BP 145/66; O2SAT 99
--- NOTE | 2019-03-12 07:50 | RAD REPORT ---
EXAM DESCRIPTION: RAD - Chest Single View - 03/11/2019 11:07 pm CLINICAL HISTORY: COUGH Chest pain. COMPARISON: Chest Single View dated 06/21/2018; CHEST SINGLE VIEW dated 09/17/2014; CHEST SINGLE VIEW d ated 02/27/2014; CHEST PA AND LAT 2 VIEW dated 02/25/2014 FINDINGS: Portable technique limits examination quality. Mild interstitial pulmonary edema. The heart is moderately enlarged with sternotomy wires present. Si ngle lead pacer/defibrillator device present. Deformity of the right posterolateral superior thoracic cage. IMPRESSION: Mild CHF versus volume overload pattern.
== END 2019-03-11 23:42 | disposition home or self-care (01) ==
LOC: ER 22:20
DX: J98.01 Acute bronchospasm (principal); I10 Essential (primary) hypertension; I25.2 Old myocardial infarction; E11.8 Type 2 diabetes mellitus with unspecified complications; Z79.4 Long term (current) use of insulin; Z95.1 Presence of aortocoronary bypass graft; Z95.5 Presence of coronary angioplasty implant and graft
CPT/HCPCS: 71045; 94640; 99284

== ENCOUNTER 2019-12-24 17:25 | Observation (INO) | payer OTHER ==
--- OUTSIDE RECORDS SUMMARY | 2019-12-24 17:27 | XMS REPORT | Continuity of Care Document ---
:1960 Author Organization [facility] t Address [address] [place] [address] Care Team Providers Name Role Phone Trena LOPEZ, Oriana Velasco Attending Clinician [phone] Doctor Unassigned, Name Attending Clinician Unavailable Problems This patient has no known problems. Allergies, Adverse Reactions, Alerts This patient has no known allergies or adverse reactions. Medications This patient has no known medications. Procedures This patient has no known procedures. Encounters Start End Encounter Admission Attending Care Care Encounter Source Date/Time Date/Time Type Type Clinicians Facility Department ID 2019-11-18 2019-11-18 Refill [facility] [id number] 00:00:00 00:00:00 Oriana Gomes [id number] [place] [id number] Professio [id number] [address] 2019-06-30 2019-06-30 Orders Doctor GARRETT [id number] 00:00:00 00:00:00 Only UnassignedSHIKHA [id number] [place] [facility] [id number] 2019 2019 Telephone Trena [facility] [id number] 00:00:00 00:00:00 Oriana Gomes [id number] [place] [id number] Jr [id number] [address] 2019-06-11 2019-06-11 Orders Doctor GARRETT [id number] 00:00:00 00:00:00 Only Unassigned, SHIKHA [id number] [place] [facility] [id number] [id number] 2019-01-16 2019-01-16 Outpatient E [facility] [id number] 11:09:00 [facility]:09:00 [facility] Results This patient has no known results.
--- OUTSIDE RECORDS SUMMARY | 2019-12-24 17:27 | XMS REPORT | Summary of Care ---
:1960 Author Organization [facility] - Health Address [address] [place] [id number] Care Team Providers Name Role Phone Oriana Albrecht MD Primary Care Provider [phone] Leila Brown MD Unavailable Unavailable MD Shell Unavailable Reason for Visit Reason Comments Refill Request Encounter Details Date Type Department Care Team Description 11/18/2019 Refill [facility] and Susanne Albrecht, Refill Request Adult Primary Care- [address] [facility] [address] [place] [address] [place] [address] [phone] Allergies No Known Allergiesdocumented as of this encounter (statuses as of 11/18/2019) Medications Medication Sig Dispensed Refills Start Date End Date Status aspirin 81 mg Take 1 tablet 90 tablet 1 12/17/2015 A ctive chewable tablet by mouth daily. acetaminophen Take 500 mg by 0 A ctive (TYLENOL EXTRA mouth every 6 STRENGTH) 500 mg (six) hours as tablet needed for Pain. Blood-Glucose Meter Use TID, DX 1 Kit 0 03/30/2017 Active KitIndications: E11.9 (Brand Type 2 diabetes upon insurance mellitus without approval) complication, with long-term current use of insulin Insulin [place], Use as 1 Box 6 09/07/2017 Ac tive Disposable, 30 directed gauge x 5/16" Ndle ipratropium 0.03 % Use 2 Sprays 30 mL 3 03/21/2018 Active nasal in each sprayIndications: nostril 3 Rhinorrhea (three) times daily. nitroglycerin Place 1 tablet 1 Bottle 3 03/21/2018 Active (NITROSTAT) 0.4 mg under the sublingual tongue every tabletIndications: 5 (five) Coronary artery minutes as disease involving needed for [place] coronary Chest pain. artery of [place] heart without angina pectoris Insulin Inject insulin 100 Syringe 11 06/19/2018 Ac tive Syringe-Needle 2 times a day. U-100 0.5 mL 31 Dx code E11.9. gauge x 5/16 SyrgIndications: Type 2 diabetes mellitus without complication, without long-term current use of insulin lancets (FREESTYLE Use TID, DX 100 Each 06/19/2018 Active LANCETS) 28 gauge E11.9 (Brand SynGen upon insurance approval) lancets-blood 1 Each 3 100 Each 11 06/19/2018 Activ e glucose strips 30 (three) times gauge Cmpk daily. Use TID, DX E11.9 (Brand upon insurance approval) Patient request Verio flex one touch. ACCU-CHEK MASON Use as 100 Strip 11 07/04/2018 Act kerry strip directed, TID, DX:E11.9 allopurinol 100 mg Take 1 tablet 90 tablet 3 07/23/2018 Active tabletIndications: by mouth Primary daily. 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 Chronic combined systolic and diastolic congestive heart failure furosemide 40 mg Take 0.5 45 tablet 1 05/21/2019 Ac tive tabletIndications: tablets by Essential mouth daily. hypertension isosorbide Take 1 tablet 30 tablet 0 05/24/2019 Acti ve mononitrate 30 mg by mouth 24 hr daily. tabletIndications: Essential hypertension, Chronic combined systolic and diastolic congestive heart failure metoprolol TAKE 1 TABLET 30 tablet 0 05/24/2019 Acti ve succinate XL 50 mg BY MOUTH ONCE 24 hr DAILY tabletIndications: Essential hypertension lisinopril 5 mg Take 2 tablets 30 tablet 0 05/24/2019 Active tabletIndications: by mouth Essential daily. hypertension, Type 2 diabetes mellitus without complication, without long-term current use of insulin glipiZIDE XL 10 mg Take 2 tablets 180 tablet 3 06/01/2019 Active 24 hr by mouth daily tabletIndications: with Type 2 diabetes breakfast. mellitus without complication, without long-term current use of insulin TRESIBA FLEXTOUCH INJECT 24 15 mL 0 06/05/2019 A ctive U-100 100 unit/mL UNITS UNDER (3 mL) THE SKIN AT InPnIndications: BEDTIME Type 2 diabetes mellitus without complication, without long-term current use of insulin Insulin [place], USE 100 Each 0 11/18/2019 Ac tive Disposable, (BD DIRECTED WITH INSULIN PEN NEEDLE KWIKPEN ONCE UF) 29 gauge x 1/2" A DAY NdleIndications: Type 2 diabetes mellitus without complication, with long-term current use of insulin Insulin [place], Use with 100 Each 3 06/19/2018 Di scontinued Disposable, KwikPen once a 0 (ULTRA-THIN II INS day. E11.9 PEN NEEDLES) 29 gauge x 1/2" NdleIndications: Type 2 diabetes mellitus without complication, with long-term current use of insulin documented as of this encounter (statuses as of 11/18/2019) Active Problems Problem Noted Date Dyspnea 07/24/2017 CASPER (dyspnea on exertion) 05/11/2017 Type 2 diabetes mellitus without complication, without long-term current 01/03/2017 use of insulin KENYA (acute kidney injury) 09/05/2016 S/P ICD (internal cardiac defibrillator) procedure NSTEMI (non-ST elevated myocardial infarction) 016 Hyperglycemia 12/13/2015 Chest pain 12/12/2015 Coronary artery disease involving [place] coronary riki ry without angina 11/23/2015 pectoris Essential hypertension 06/15/2014 Overview: ICD10 Diagnosis Term Telemarketer Supervisor Utility Acute on chronic combined systolic and diastolic conge stive heart failure 06/15/2014 Overview: ICD10 Diagnosis Term Telemarketer Supervisor Utility Hypothyroidism 06/15/2014 Myocardial infarction 06/15/2014 Overview: Indigestion -STEMI 10/04. S/p PCI ? renetta henriquez Ischemic cardiomyopathy 06/15/2014 Overview: EF 20% per pt 10/04 Smoking 1/2 pack a day or less 06/15/2014 Thyroid disease documented as of this encounter (statuses as of 11/18/2019) Resolved Problems Problem Noted Date Resolved Date Left ventricular apical thrombus 12/13/2015 016 Overview: Likely LV apical thrombus but needs cont rast ECHO to confirm. DM (diabetes mellitus) 06/15/2014 05/22/2016 documented as of this encounter (statuses as of 11/18/2019) Immunizations Name Administration Dates Next Due Influenza Virus Vaccine 01/24/2018 Influenza Virus Vaccine Quad IM 3+ YRS 02/12/2017, 6 Pneumococcal Polysaccharide, PPSV23 (PNEUMOVAX) 01/24/2018, 02/03/2016 documented as of this encounter Social History Tobacco Use Types Packs/Day Years Used Date Former Smoker Cigarettes 1.5 25 Quit: 04/23/19 16 Smokeless Tobacco: Never Used Alcohol Use Drinks/Week [...] filedocumented in this encounter Plan of Treatment Health Maintenance Due Date Last Done Comments DTaP,Tdap,and Td Vaccines (1 - 1972 Tdap) Depression Screening 1973 Zoster Recombinant Vaccine 06/26/2011 (SHINGRIX) (1 of 2) LUNG CANCER SCREEN: Recommended 2016 for age 55-80 with 30 + pack year history FOOT EXAM 05/10/2018 05/10/2017, 05/10/2017, 12/20/2015 EYE EXAM 07/23/2018 07/23/2017 (Previously completed), 12/03/2013 (Previously completed) HgA1C 07/29/2019 01/27/2019, 07/04/2018, 03/26/2018, Additional history exists CREATININE (SERUM) 11/07/2019 11/06/2018, 03/26/2018, 02/11/2018, Additional history exists INFLUENZA VACCINE (#1) 2019 01/24/2018, 02/12/2017, 02/03/2016 COLON CANCER SCREENING ANNUAL 01/11/2020 01/10/2019 FIT/FOBT LDL-C 01/28/2020 01/27/2019, 03/26/2018, 09/01/2016, Additional history exists URINE MICROALBUMIN 01/28/2020 01/27/2019, 08/15/2017, 12/20/2015 HEPATITIS C (HCV) SCREEN Completed 08/15/2017 PNEUMOCOCCAL 0-64 YEARS COMBINED Completed 01/24/2018, SERIES documented as of this encounter Implants Implanted Type Area Learning Development Specialist Device Identifier Shelf Exp iration Model / Date Serial / L ot Pacemaker PACEMAKER Chest documented as of this encounter Results Not on filedocumented in this encounter Visit Diagnoses Diagnosis Type 2 diabetes mellitus without complic ation, with long-term current use of insulin documented in this encounter
[2019-12-24 19:37] LABS: Absolute Lymphocytes (CBC) 1.6 K/uL (0.7-4.9); Basophils % 0.7 % (0-1.3); Hematocrit 35.7 % (39.6-49.0); Lymphocytes % 22.7 % (15.3-44.8); MPV 8.6 fL (7.6-11.3); Protime INR 0.97; RBC Red Blood Cell Count 3.99 M/uL (4.33-5.43)
[2019-12-24] MEDS ORDERED: NA CHLORIDE 0.9% 1,000 ML ONE (19:38)
[2019-12-24] MEDS ORDERED: ONDANSETRON 4 MG/2 ML VIAL ONE (19:38)
[2019-12-24] MEDS ORDERED: FAMOTIDINE 20 MG/2 ML VIAL IV ONE (19:38)
[2019-12-24] MEDS ORDERED: PIPER/TAZO/NS 3.375gm 3.375 GM/100 ML BAG ONE (19:38)
[2019-12-24] MEDS ORDERED: MORPHINE 2 MG/ML SYR ONE (19:38)
[2019-12-24 19:56] LABS: ALT/SGPT 24 U/L (12-78); AST/SGOT 20 U/L (15-37); Albumin 3.4 g/dL (3.4-5.0); Alkaline Phosphatase 118 U/L (45-117); BUN Blood Urea Nitrogen 47 mg/dL (7-18); Bicarbonate 20 mmol/L (21-32); Bilirubin Direct 0.1 mg/dL (0-0.2); Bilirubin Total 0.4 mg/dL (0.2-1.0); Glucose Level 83 mg/dL (74-106); Magnesium 2.2 mg/dL (1.8-2.4); NT PRO-BNP 2250 pg/mL (<125); Potassium 4.9 mmol/L (3.5-5.1); Protein, Total 7.7 g/dL (6.4-8.2); Sodium Level 140 mmol/L (136-145); Troponin (Emerg Dept Use Only) < 0.02 ng/mL (0.0-0.045)
--- NOTE | 2019-12-24 20:21 | RAD REPORT ---
EXAM DESCRIPTION: CT - Abdomen Pelvis Wo Contrast - 12/24/2019 7:58 pm CLINICAL HISTORY: Abdominal pain COMPARISON: None TECHNIQUE: Computed axial tomography of the abdomen and pelvis was obtained. IV and oral contrast we re not requested. All CT scans are performed using dose optimization technique as appropriate and may include automated exposure control or mA/KV adjustment according to patient size. FINDINGS: The evaluation of solid organs, vessels and bowel is limited secondary to the lack of con trast administration. The liver, spleen, pancreas, adrenals and kidneys appear grossly normal. The appendix is normal. There is no evidence of diverticulitis. Small inguinal hernias contain fat The wall of proximal duodenum appears thickened IMPRESSION: Apparent thickening of the wall of the proximal duodenum may indicate inflammation
--- NOTE | 2019-12-24 20:24 | RAD REPORT ---
EXAM DESCRIPTION: Kellie Single View12/24/2019 7:55 pm CLINICAL HISTORY: Abdominal pain COMPARISON: 2014 FINDINGS: The lungs appear clear of acute infiltrate. The heart is normal size Pacemaker leads are in place. Postsurgical changes involve the chest IMPRESSION: No acute abnormalities displayed
--- NOTE | 2019-12-24 20:34 | EDPHYS ---
Physician Documentation [facility] Name: Srinivasa Hernandez Age: 59 yrs Sex: Male : 1960 Arrival Date: 12/24/2019 Time: 17:30 Bed 6 Private MD: Eduard Friedman ED Physician Rich Ramirez HPI: 12/23 19:09 This 59 yrs old Male presents to ER via Ambulatory with complaints of jameson Abdominal Pain. 19:09 The patient presents with abdominal pain abdominal distention in the epigastric area, jameson in the upper abdomen. Onset: The symptoms/episode began/occurred 3 day(s) ago. The symptoms do not radiate. Associated signs and symptoms: none. The symptoms are described as constant, crampy. Modifying factors: The symptoms are alleviated by nothing, the symptoms are aggravated by food. Severity of pain: At its worst the pain was moderate in the emergency department the pain is unchanged. Historical: - Allergies: 17:36 No Known Drug Allergies; ll1 - PMHx: 17:36 Diabetes - IDDM; Myocardial infarction; Hypertension; lifevest in place; ll1 - PSHx: 17:36 CABG; Heart stents; ll1 - Immunization history:: Adult Immunizations up to date, Flu vaccine is up to date. - Social history:: Smoking status: Smoking status: Patient reports the use of cigarette tobacco products, denies chronic smoking, but will smoke occasionally, Patient uses alcohol, only on a social basis. Patient/guardian denies using street drugs. - Family history:: not pertinent. ROS: 19:09 Constitutional: Negative for fever, chills, and weight loss, Eyes: Negative for injury, jameson pain, redness, and discharge, ENT: Negative for injury, pain, and discharge, Neck: Negative for injury, pain, and swelling, Cardiovascular: Negative for chest pain, palpitations, and edema, Respiratory: Negative for shortness of breath, cough, wheezing, and pleuritic chest pain, Back: Negative for injury and pain, : Negative for injury, bleeding, discharge, and swelling, MS/Extremity: Negative for injury and deformity, Skin: Negative for injury, rash, and discoloration, Neuro: Negative for headache, weakness, numbness, tingling, and seizure. 19:09 Abdomen/GI: Positive for abdominal pain, abdominal distension, of the right upper quadrant. Exam: 19:09 Constitutional: This is a well developed, well nourished patient who is awake, alert, jameson and in no acute distress. Head/Face: Normocephalic, atraumatic. Eyes: Pupils equal round and reactive to light, extra-ocular motions intact. Lids and lashes normal. Conjunctiva and sclera are non-icteric and not injected. Cornea within normal limits. Periorbital areas with no swelling, redness, or edema. ENT: Nares patent. No nasal discharge, no septal abnormalities noted. Tympanic membranes are normal and external auditory canals are clear. Oropharynx with no redness, swelling, or masses, exudates, or evidence of obstruction, uvula midline. Mucous membranes moist. Neck: Trachea midline, no thyromegaly or masses palpated, and no cervical lymphadenopathy. Supple, full range of motion without nuchal rigidity, or vertebral point tenderness. No Meningismus. Chest/axilla: Normal chest wall appearance and motion. Nontender with no deformity. No lesions are appreciated. Cardiovascular: Regular rate and rhythm with a normal S1 and S2. No gallops, murmurs, or rubs. Normal PMI, no JVD. No pulse deficits. Respiratory: Lungs have equal breath sounds bilaterally, clear to auscultation and percussion. No rales, rhonchi or wheezes noted. No increased work of breathing, no retractions or nasal flaring. Back: No spinal tenderness. No costovertebral tenderness. Full range of motion. Male : Normal genitalia with no discharge or lesions. Skin: Warm, dry with normal turgor. Normal color with no rashes, no lesions, and no evidence of cellulitis. MS/ Extremity: Pulses equal, no cyanosis. Neurovascular intact. Full, normal range of motion. Neuro: Awake and alert, GCS 15, oriented to person, place, time, and situation. Cranial nerves II-XII grossly intact. Motor strength 5/5 in all extremities. Sensory grossly intact. Cerebellar exam normal. Normal gait. Psych: Awake, alert, with orientation to person, place and time. Behavior, mood, and affect are within normal limits. 19:09 Abdomen/GI: Inspection: abdomen appears normal, Bowel sounds: normal, active, Palpation: moderate abdominal tenderness, in the right upper quadrant, Liver: no appreciated palpable abnormalities, Hernia: not appreciated. 20:35 ECG was reviewed by the Attending Physician. [facility] Vital Signs: 17:34 BP 131 / 69; Pulse 82; Resp 18; Temp 98.1; Pulse Ox 100% ; Weight 83.91 kg; Height 5 ll1 ft. 9 in. (175.26 cm); Pain 7/10; 20:00 BP 138 / 72; Pulse 66; Resp 18; Pulse Ox 100% on R/A; wh 21:15 BP 150 / 75; Pulse 65; Resp 18; Pulse Ox 100% on R/A; wh 17:34 Body Mass Index 27.32 (83.91 kg, 175.26 cm) ll1 MDM: 18:42 Patient medically screened. [facility] 19:11 Differential diagnosis: bowel obstruction, cholecystitis, Cholelithiasis, jameson diverticulitis, gastritis, gastroesophageal reflux disease, non-specific abd pain, pancreatitis, Peptic Ulcer Disease, Perf. Duodenal Ulcer, Perf. Gastric Ulcer, Pyelonephritis. Data reviewed: vital signs, nurses notes, lab test result(s), EKG, radiologic studies, CT scan, plain films, ultrasound. Data interpreted: monitoring tech: rate is 82 beats/min, rhythm is regular, Pulse oximetry: on room air is 100 %. Test interpretation: by ED physician or midlevel provider: ECG, plain radiologic studies. Counseling: I had a detailed discussion with the patient and/or guardian regarding: the historical points, exam findings, and any diagnostic results supporting the discharge/admit diagnosis, lab results, radiology results. 20:29 ED course: all labs discussed with patient, Ludin Pickering on the case, admit dr kristine barba consult dr cameron and dr bell. 12/23 19:08 Order name: Basic Metabolic Panel; Complete Time: 20:28 [facility] 12/23 19:08 Order name: CBC with Diff; Complete Time: 20:28 [facility] 12/23 19:08 Order name: LFT's; Complete Time: 20:28 [facility] 12/23 19:08 Order name: Magnesium; Complete Time: 20:28 [facility] 12/23 19:08 Order name: NT PRO-BNP; Complete Time: 20:28 [facility] 12/23 19:08 Order name: PT-INR; Complete Time: 20:28 [facility] 12/23 19:08 Order name: Troponin (emerg Dept Use Only); Complete Time: 20:28 [facility] 12/23 19:08 Order name: XRAY Chest (1 view); Complete Time: 20:28 [facility] 12/23 19:08 Order name: US Abdomen Limited; Complete Time: 20:48 [facility] 12/23 19:56 Order name: Abdomen ; Complete Time: 20:28 EDMD 12/23 19:08 Order name: EKG; Complete Time: 19:10 [facility] 12/23 19:08 Order name: Cardiac monitoring; Complete Time: :27 [facility] 12/23 19:08 Order name: EKG - Nurse/Tech; Complete Time: :27 [facility] 12/23 19:08 Order name: IV Saline Lock; Complete Time: :27 [facility] 12/23 19:08 Order name: Labs collected and sent; Complete Time: :28 [facility] 12/23 19:08 Order name: O2 Per Protocol; Complete Time: :28 [facility] 12/23 19:08 Order name: O2 Sat Monitoring; Complete Time: 19:28 [facility] EC:35 Rate is 82 beats/min. Rhythm is regular. QRS Edroy is Normal. W[place] interval is normal. QRS jameson interval is normal. QT interval is normal. No Q waves. T waves are Normal. T waves are Inverted in leads I, aVL, V4, V5, V6. No ST changes noted. Clinical impression: Normal ECG. Interpreted by me. Reviewed by me. Administered Medications: 19:27 Drug: NS 0.9% 1000 ml Route: IV; Rate: 125 ml/hr; Site: right forearm; 20:37 Follow up: Response: No adverse reaction; IV Status: Infusion continued upon admission 19:29 Drug: Pepcid 20 mg Route: IVP; Site: right forearm; 20:37 Follow up: Response: No adverse reaction wh 19:31 Drug: morphine 2 mg Route: IVP; Site: right forearm; wh 20:38 Follow up: Response: No adverse reaction; Pain is decreased; RASS: Alert and Calm (0) 19:33 Drug: Zofran (Ondansetron) 4 mg Route: IVP; Site: right forearm; wh 20:38 Follow up: Response: No adverse reaction; Nausea is decreased 19:35 Drug: Zosyn 3.375 grams Route: IVPB; Infused Over: 60 mins; Site: right forearm; 20:37 Follow up: Response: No adverse reaction; IV Status: Completed infusion 20:37 Drug: ProTONIX 40 mg Route: IVP; Site: right forearm; 21:27 Follow up: Response: No adverse reaction Disposition: 12/24/19 20:34 Hospitalization ordered by Shad Ahn for Inpatient Admission. Preliminary diagnosis are Abdominal tenderness, Duodenitis without bleeding, Type 1 diabetes mellitus, Unspecified kidney failure - acute on chronic. - Bed requested for Telemetry/MedSurg (Inpatient). - Status is Inpatient Admission. mw2 - Condition is Fair. - Problem is new. - Symptoms have improved. Signatures: Dispatcher [employer] EDMS Rich Ramirez MD MD cha Attema, Lee, ODD TICKET CLERK-C ODD TICKET CLERK-Cla1 María Skinner, RN RN tl1 Kimber Phillips Monica, Samy mw2 Yeimy Santos RN RN ll1 Corrections: (The following items were deleted from the chart) 19:56 19:10 Abdomen Pelvis W Con+CT.RAD.BRZ ordered. [facility] 21:19 20:34 Hospitalization Ordered by Shad Ahn MD for Inpatient Admission. Preliminary tl1 diagnosis is Abdominal tenderness; Duodenitis without bleeding; Type 1 diabetes mellitus; Unspecified kidney failure - acute on chronic. Bed requested for Telemetry/MedSurg (Inpatient). Status is Inpatient Admission. Condition is Fair. Problem is new. Symptoms have improved. [facility] 21:39 21:19 12/24/2019 20:34 Hospitalization Ordered by Shad Ahn MD for Inpatient mw2 Admission. Preliminary diagnosis is Abdominal tenderness; Duodenitis without bleeding; Type 1 diabetes mellitus; Unspecified kidney failure - acute on chronic. Bed requested for Telemetry/MedSurg (Inpatient). Status is Inpatient Admission. Condition is Fair. Problem is new. Symptoms have improved. tl1
--- NOTE | 2019-12-24 20:34 | ER ---
Nurse's Notes [facility] Name: Srinivasa Hernandez Age: 59 yrs Sex: Male : 1960 Arrival Date: 12/24/2019 Time: 17:30 Bed 6 Private MD: Eduard Friedman Diagnosis: Abdominal tenderness;Duodenitis without bleeding;Type 1 diabetes mellitus;Unspecified kidney failure-acute on chronic Presentation: 12/23 17:34 Chief complaint: Patient states: RUQ abd pain for 3 days, worse today. Denies N/V/D, no ll1 fever. Coronavirus screen: Client denies travel out of the [place] in the last 14 days. At this time, the client does not indicate any symptoms associated with coronavirus-19. Ebola Screen: Patient denies travel to an Ebola-affected area in the 21 days before illness onset. Initial Sepsis Screen: Does the patient meet any 2 criteria? No. Patient's initial sepsis screen is negative. Risk Assessment: Do you want to hurt yourself or someone else? Patient reports no desire to harm self or others. Onset of symptoms was December 22, 2019. 17:34 Method Of Arrival: Ambulatory ll1 17:34 Acuity: MARILUZ 3 ll1 19:15 Initial Sepsis Screen: Does the patient have a suspected source of infection? Yes: wh Acute abdominal pain. Historical: - Allergies: 17:36 No Known Drug Allergies; ll1 - PMHx: 17:36 Diabetes - IDDM; Myocardial infarction; Hypertension; lifevest in place; ll1 - PSHx: 17:36 CABG; Heart stents; ll1 - Immunization history:: Adult Immunizations up to date, Flu vaccine is up to date. - Social history:: Smoking status: Smoking status: Patient reports the use of cigarette tobacco products, denies chronic smoking, but will smoke occasionally, Patient uses alcohol, only on a social basis. Patient/guardian denies using street drugs. - Family history:: not pertinent. Screenin:15 Abuse screen: Denies threats or abuse. Denies injuries from another. Nutritional wh screening: No deficits noted. Tuberculosis screening: No symptoms or risk factors identified. Fall Risk None identified. Assessment: 19:10 General: Appears in no apparent distress. Behavior is calm, cooperative, appropriate wh for age. Pain: Complains of pain in right upper quadrant Pain does not radiate. Pain currently is 6 out of 10 on a pain scale. Pain began 2-3 days ago. Neuro: Level of Consciousness is awake, alert, obeys commands, Oriented to person, place, time, situation, Appropriate for age. Cardiovascular: Heart tones S1 S2. Respiratory: Airway is patent Respiratory effort is even, unlabored, Respiratory pattern is regular, symmetrical, Breath sounds are clear bilaterally. GI: Abdomen is flat, non-distended, Bowel sounds present X 4 quads. Abd is soft Abdomen is tender to palpation in right upper quadrant. : No signs and/or symptoms were reported regarding the genitourinary system. EENT: No signs and/or symptoms were reported regarding the EENT system. Derm: Skin is intact, is healthy with good turgor, Skin is pink, warm \T\ dry. normal. Musculoskeletal: Circulation, motion, and sensation intact. 20:20 Reassessment: Patient appears in no apparent distress at this time. No changes from previously documented assessment. Patient and/or family updated on plan of care and expected duration. Pain level reassessed. Patient is alert, oriented x 3, equal unlabored respirations, skin warm/dry/pink. 21:25 Reassessment: No changes from previously documented assessment. Patient and/or family wh updated on plan of care and expected duration. Pain level reassessed. Patient is alert, oriented x 3, equal unlabored respirations, skin warm/dry/pink. Explained POC need for admit. Vital Signs: 17:34 BP 131 / 69; Pulse 82; Resp 18; Temp 98.1; Pulse Ox 100% ; Weight 83.91 kg; Height 5 ll1 ft. 9 in. (175.26 cm); Pain 7/10; 20:00 BP 138 / 72; Pulse 66; Resp 18; Pulse Ox 100% on R/A; wh 21:15 BP 150 / 75; Pulse 65; Resp 18; Pulse Ox 100% on R/A; wh 17:34 Body Mass Index 27.32 (83.91 kg, 175.26 cm) ll1 ED Course: 17:30 Patient arrived in ED. ds1 17:31 Eduard Friedman is Private Physician. ds1 17:35 Triage completed. ll1 17:37 Arm band placed on. ll1 18:42 Rich Ramirez MD is Attending Physician. [facility] 19:15 Patient has correct armband on for positive identification. Bed in low position. Call light in reach. Side rails up X 1. Pulse ox on. NIBP on. 19:35 Kimber Phillips is Primary Nurse. 19:35 Inserted saline lock: 20 gauge in right forearm, using aseptic technique. Blood oe collected. 19:55 XRAY Chest (1 view) In Process Unspecified. EDMS 19:58 Abdomen In Process Unspecified. EDMS 20:30 US Abdomen Limited In Process Unspecified. EDMS 20:31 Shad Ahn MD is Hospitalizing Provider. [facility] 21:37 No provider procedures requiring assistance completed. Patient admitted, IV remains in place. Administered Medications: 19:27 Drug: NS 0.9% 1000 ml Route: IV; Rate: 125 ml/hr; Site: right forearm; 20:37 Follow up: Response: No adverse reaction; IV Status: Infusion continued upon admission 19:29 Drug: Pepcid 20 mg Route: IVP; Site: right forearm; 20:37 Follow up: Response: No adverse reaction 19:31 Drug: morphine 2 mg Route: IVP; Site: right forearm; 20:38 Follow up: Response: No adverse reaction; Pain is decreased; RASS: Alert and Calm (0) 19:33 Drug: Zofran (Ondansetron) 4 mg Route: IVP; Site: right forearm; 20:38 Follow up: Response: No adverse reaction; Nausea is decreased 19:35 Drug: Zosyn 3.375 grams Route: IVPB; Infused Over: 60 mins; Site: right forearm; 20:37 Follow up: Response: No adverse reaction; IV Status: Completed infusion 20:37 Drug: ProTONIX 40 mg Route: IVP; Site: right forearm; 21:27 Follow up: Response: No adverse reaction Outcome: 20:34 Decision to Hospitalize by Provider. [facility] 21:37 Admitted to Med/surg accompanied by tech, via wheelchair, room 208, with chart, Report called to Rossana MORGAN 21:37 Condition: stable 21:37 Instructed on the need for admit. 21:39 Patient left the ED. mw2 Signatures: Dispatcher [employer] Rich Desai MD MD cha Sanford, Demi ds1 Kirill [place] Winsy wh Monica, Samy mw2 Yeimy Santos, RN RN ll1
[2019-12-24] MEDS ORDERED: PANTOPRAZOLE 40 MG INJ ONE (20:45)
--- NOTE | 2019-12-24 20:45 | RAD REPORT ---
EXAM DESCRIPTION: US - Abdomen Exam Limited - 12/24/2019 8:30 pm CLINICAL HISTORY: Abdominal pain. COMPARISON: None. FINDINGS: The gallbladder wall is not thickened. A gallstone is not seen. The biliary tree is normal caliber. IMPRESSION: Unremarkable gallbladder ultrasound.
--- NOTE | 2019-12-24 21:15 | P.HP ---
Certification for Inpatient Patient admitted to: Inpatient With expected LOS: >2 Midnights Patient will require the following post-hospital care: None Practitioner: I am a practitioner with admitting privileges, knowledge of patient current condition, hospital course, and medical plan of care. Services: Services provided to patient in accordance with Admission requirements found in Title 42 Section 412.3 of the Code of Federal Regulations <RaheelLudin - Last Filed: 12/24/19 21:08> Patient History Date of Service: 12/24/19 Primary Care Provider: Angela Reason for admission: Duodenitis, ARF History of Present Illness: 51-year-old male with history of diabetes mellitus type 2, chronic kidney disease, CHF, CAD, hypertension presents emergency department for upper abdominal pain. Patient reports he has had the pain since approximately Sunday or Sunday. Patient was evaluated in the emergency department and found to have duodenitis with wall thickening of the duodenum on the CT scan. Patient does have upper quadrant and right upper quadrant pain, ultrasound was performed in the emergency department which did not show any acute findings of the gallbladder, liver function within normal limits at this time. ED provider wishes to admit patient for further evaluation and management. When I saw the patient in the emergency department he was awake, alert, oriented x3. Patient complaining of upper abdominal pain which is since greatly improved after the administration of morphine in the emergency department. Patient has been started on broad-spectrum antibiotics in the emergency department. Patient does not appear septic at this time vital signs within normal limits. The p atient be admitted for further evaluation and management. 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 - Family History Mother -: Heart disease, Lung disease - Social History Smoking Status: Current every day smoker Alcohol use: Yes CD- Drugs: No Caffeine use: No Place of Residence: Home <Ludin Pickering - Last Filed: 12/24/19 21:08> Date of Service: 12/25/19 <Shad Ahn - Last Filed: 12/25/19 21:16> Allergies No Known Drug Allergies Allergy (Verified 12/24/19 23:03) Unknown Home Medications: Aspirin [Aspir-Low] 81 mg PO DAILY 06/22/18 Atorvastatin Calcium [Lipitor] 80 mg PO DAILY 06/22/18 Clopidogrel Bisulfate [Plavix*] 75 mg PO DAILY 06/22/18 Furosemide 1 tab PO PRN PRN 06/22/18 Insulin Degludec [Tresiba Flextouch U-100] 24 unit SQ DAILY 06/22/18 Isosorbide Mononitrate [Isosorbide Mononitrate ER] 30 mg PO DAILY 06/22/18 Metoprolol Succinate 1 tab PO DAILY 06/22/18 Nitroglycerin [Nitrostat*] 0.4 mg SL PRN PRN 06/22/18 lisinopriL [Lisinopril] 1 tab PO DAILY 06/22/18 Spironolactone 25 mg PO DAILY 12/25/19 Review of Systems 10-point ROS is otherwise unremarkable Gastrointestinal: Nausea, Abdominal Pain <Ludin Pickering - Last Filed: 12/24/19 21:08> Physical Examination - Physical Exam General: Alert, In no apparent distress, Oriented x3 HEENT: Atraumatic, Normocephalic, Mucous membr. moist/pink Neck: Supple Respiratory: Clear to auscultation bilaterally, Normal air movement Cardiovascular: No edema, Regular rate/rhythm, Normal S1 S2 Capillary refill: <2 Seconds Gastrointestinal: Normal bowel sounds, No masses, No rebound, No guarding, Tenderness (Abdominal tenderness right upper quadrant and epigastric region) Musculoskeletal: No contractures, No erythema, No tenderness Integumentary: No significant lesion, No tenderness/swelling, No erythema, No warmth Neurological: Normal speech, Normal strength at 5/5 x4 extr, Normal tone, Sensation intact - Studies Laboratory Data (last 24 hrs) 12/24/19 19:23: PT 11.4, INR 0.97 12/24/19 19:23: WBC 7.0, Hgb 11.8 L, Hct 35.7 L, Plt Count 226 12/24/19 19:23: Sodium 140, Potassium 4.9, BUN 47 H, Creatinine 2.41 H, Glucose 83, Magnesium 2.2, Total Bilirubin 0.4, AST 20, ALT 24, Alkaline Phosphatase 118 H <Ludin Pickering - Last Filed: 12/24/19 21:08> Assessment and Plan - Plan Assessment Duodenitis without hemorrhage Acute renal failure on chronic kidney disease Chronic systolic congestive heart failure Diabetes mellitus type 2-insulin dependent CAD COPD Tobacco abuse Plan Duodenitis without hemorrhage: Continue with IV antibiotics, pain medication as needed. Initiated PPI therapy, clear liquid diet at this time. NPO after midnight. GI consult in place. Will continue to monitor closely for any signs of bleeding. DVT prophylaxis with heparin 5000 units subcutaneous twice daily. Acute renal failure on chronic kidney disease: Patient reports he has been working outside Unsocial in the heat. Patient denies any use of NSAIDs or recent antibiotic use. Suspect either pre renal or cardiorenal syndrome. Will continue gentle hydration at this time and reassess renal function in the morning. Nephrology consult in place. Chronic systolic congestive heart failure: Patient without any signs overload at this time. Will continue to monitor closely. Will continue home medications. Diabetes mellitus type 2-insulin dependent: Will continue patient's home medications, a.c. HS Accu-Cheks, sliding scale insulin therapy. CAD: Continue patient's home medications. COPD: Appears stable. Will provide medications as needed. Tobacco abuse: Discussed need for cessation with patient, offered nicotine patch patient refused Discharge Plan: Home Plan to discharge in: 48 Hours - Advance Directives Does patient have a Living Will: No Does patient have a Durable POA for Healthcare: No - Code Status/Comfort Care Code Status Assessed: Yes (Patient is full code) Critical Care: No Time Spent Managing Pts Care (In Minutes): 55 <Ludin Pickering - Last Filed: 12/24/19 21:08> Physician Review Additional Text: Plan of care discussed with Ludin Pickering, and I agree with plan as noted above. <Shad Ahn - Last Filed: 12/25/19 21:16>
[2019-12-24] MEDS ORDERED: ONDANSETRON 4 MG/2 ML VIAL IV PRN (21:53)
[2019-12-24] MEDS ORDERED: MORPHINE 2 MG/ML SYR IV PRN (21:53)
[2019-12-24] MEDS ORDERED: D50W 25 GM/50 ML SYRINGE/VIAL IV PRN (21:53)
[2019-12-24] MEDS ORDERED: HYDROCODONE/APAP 7.5/325 MG TAB PO PRN (21:53)
[2019-12-24] MEDS ORDERED: GLUCAGON 1 MG/VIAL IM PRN (21:53)
[2019-12-24] MEDS ORDERED: ACETAMINOPHEN 500 MG TAB PO PRN (21:53)
[2019-12-24] MEDS ORDERED: NA CHLORIDE 0.9% 1,000 ML IV SCH (22:00)
[2019-12-25] MEDS: METRONIDAZOLE 500mg IVPB 500 MG/100 ML BAG IV SCH ×3 (00:09→16:46)
[2019-12-25] MEDS: CIPROFLOXACIN 400mg IV 400 MG/200 ML BAG IV SCH ×3 (00:41→21:28)
[2019-12-25 05:58] LABS: Basophils % 0.9 % (0-1.3); Hematocrit 34.2 % (39.6-49.0); Lymphocytes % 21.5 % (15.3-44.8); MPV 8.6 fL (7.6-11.3); RBC Red Blood Cell Count 3.85 M/uL (4.33-5.43)
[2019-12-25 06:19] LABS: Potassium 4.7 mmol/L (3.5-5.1); Uric Acid 11.1 mg/dL (3.5-7.2)
[2019-12-25] MEDS: INSULIN -REGULAR HUMAN 50 UNIT/0.5 ML ML SQ SCH ×4 (07:30→21:00)
[2019-12-25] MEDS ORDERED: INSULIN GLARGINE 100 UNITS/ML SQ SCH (08:00)
[2019-12-25] MEDS: HEPARIN 5000 UNIT/ML 1 ML VIAL SQ SCH (08:30)
[2019-12-25] MEDS: PANTOPRAZOLE 40 MG INJ IVP SCH (08:33)
[2019-12-25] MEDS: SODIUM CHLORIDE 0.9% 10ML INJ IV PRN (08:34)
--- NOTE | 2019-12-25 08:59 | RAD REPORT ---
EXAM DESCRIPTION: US - Renal Ultrasound-Complete - 12/25/2019 7:52 am CLINICAL HISTORY: ARF Flank pain. COMPARISON: Abdomen Exam Limited dated 12/24/2019; Abdomen Pelvis Wo Contrast dated 12/24/2019 FINDINGS: Both kidneys are normal in size, shape and echotexture. The right kidney measures 10.1 x 5.8 x 4.6 cm. No hydronephrosis, focal mass or perinephric fluid. The left kidney measures 10.4 x 5.4 x 5.3 cm. No hydronephrosis, focal mass or perinephric fluid. The urinary bladder is incompletely distended without gross abnormality seen. IMPRESSION: Unremarkable renal sonogram.
[2019-12-25] MEDS ORDERED: CIPROFLOXACIN 400mg IV 400 MG/200 ML BAG IV SCH (09:00)
--- NOTE | 2019-12-25 10:50 | PN ---
Date of Progress Note: 12/24/2019 Subjective: Patient was admitted with acute kidney injury on advanced chronic kidney disease. Patient required to initiate dialysis. Patient is tolerating the dialysis. Patient had workup as outpatient of possible pancreatic mass to undergo biopsy suspected of abscess. The patient will undergo CT today to confirm possible access. Physical Examination: Vital Signs: Blood pressure 155/81, pulse of 71. Chest: Clear to auscultation. Heart: S1, S2 regular. Abdomen: Soft, nontender. Extremities: No edema. Neurologic: Alert and oriented x3. No focal. Laboratory Data: WBC 1.8, H and H 8.2/25.4, platelets 71. Sodium 142, potassium 4.2, bicarb 19, chloride 113, BUN 48, creatinine 4.8, calcium 7.1, magnesium 1.8. Current Medications: The patient on is heparin, Epogen 8000 with each dialysis, calcium carbonate 1000 t.i.d., amlodipine, atorvastatin, Pepcid, Zofran, and calcitriol. Assessment And Plan: 1. End-stage renal disease. We will continue the patient on dialysis Sunday, Sunday, Sunday. Patient is going to be scheduled for dialysis today and we will follow up. 2. Hypertension, controlled, optimal. 3. Anemia of chronic kidney disease/MDS. Continue Retacrit. 4. Secondary hyperparathyroid. Continue calcium carbonate and calcitriol. 5. 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 Corrected with dialysis. 6. Pancreatic abscess. Follow up with ID and GI. time spent discussing the case with (the staff and other transformation consultant and the patient) face to face with the patient and reviewing clinical data and placing order 35 min PRAKASH Voice ID: [id number] Report ID: [id number] ABHI
[2019-12-25] MEDS ORDERED: D5 0.45 NS 1,000 ML IV SCH (11:00)
[2019-12-25] MEDS: D5 0.45 NS 1,000 ML IV SCH ×2 (12:45→21:28)
--- NOTE | 2019-12-25 13:36 | CON ---
Date of Consultation: 12/25/2019 Reason For Consultation: Elevated BUN and creatinine fluid management. History Of Present Illness: This is a pleasant 59-year-old gentleman with significant past medical history of diabetes since age 36-year-old, complicated with neuropathy, no retinopathy, hypertension, hyperlipidemia, coronary artery disease status post ID back in September 2013, status post CABG back in March 2015, questionable complicated with congestive heart failure, chronic kidney disease with baseline creatinine of 1.5, GFR of 46 back in June 2018, the patient was in his regular state of health. Patient came to the hospital complaining of epigastric pain, found to have duodenitis. Primary workup showed elevation in BUN and creatinine with creatinine up to 2.4. GFR down to 28. The patient was started on hydration. Creatinine slightly better 2.2 with GFR of 31. The patient apparently at home being on MARIELLE inhibitor, Lasix, and metformin. The patient denied taking any nonsteroidal. No IV contrast. No recent change in his medication. Patient admits that he has been working outside in the heat in the last couple of days. Also workup showed some proteinuria, significant +3, not quantify it. Past Medical History: Includes, 1. Diabetes complicated with neuropathy. No retinopathy. 2. Hypertension. 3. Coronary artery artery disease status post ID back in September 2013, CABG in March 2015. 4. Chronic kidney disease, baseline creatinine 1.5, GFR 46 back in June 2018. Allergies: NO KNOWN DRUGS ALLERGIES. Social History: Lives with family. Denied drinking. Active smoker. Denies drugs abuse. Family History: Positive for diabetes, lung disease and coronary artery disease. Past Surgical History: Includes, 1. PTCA. 2. Coronary artery bypass grafting. 3. pacemaker placement. Review of Systems: Head and Neck: No red eye. No ear pain. GI: Has epigastric pain, has nausea, occasional vomiting. : No polyuria, no dysuria, no hematuria. SKEIN WINDER: Not applicable. Respiratory: No shortness of breath. Cardiovascular: No leg swelling. Endocrine: No polydipsia. Skin: No rash. Neuro: Has neuropathy. Musculoskeletal: Generalized fatigue. Home Medications: Include lisinopril, allopurinol, nitroglycerin, metformin, metoprolol, isosorbide, glipizide, Lasix, Plavix, tessalon, atorvastatin, and aspirin. Current Medications: In the hospital include ciprofloxacin, IV fluid, heparin, Flagyl. Physical Examination: Vital Signs: When I saw the patient, patient is lying in bed, comfortable, not in any distress. Vital Signs: Blood pressure 134/60, pulse of 68, afebrile. Chest: Clear to auscultation. Heart: S1, S2. Regular. Abdomen: Soft, nontender. Extremities: No edema. Neurologic: Alert and oriented x3. No focal. Lab Data: BNP 2250. Sodium 140, potassium 4.7, bicarb 21, BUN 42, creatinine 2.2, uric acid 11.1, calcium 8.3, magnesium of 2. WBC 4.7, H and H 11.5/34.2, platelet 206. Assessment And Plan: 1. Acute kidney injury, normal size kidney as ultrasound show 10.1/10.4, no hydronephrosis, proteinuric, possible nephrotic with anemia acute component, mostly secondary to prerenal dehydration superimposed with high uric acid and superimposed with metformin, lisinopril, and Lasix. Patient look to me still on the dry side. I am going to continue hydration. Agree with holding metformin, Lasix and lisinopril for the time being. I will send for quantification for the proteinuria given the presence of the anemia. We will rule out light chain disease. We will send for plain UA to evaluate. 2. 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 I am going to send for protein creatinine, PTH and vitamin D, and we will monitor. 3. Hypertension with the presence of acute kidney injury. Hold lisinopril and Lasix and we will follow up. Continue current treatment. 4. Gastroenteritis. The patient is on Cipro and Flagyl, which is appropriate dose. Continue PPI. Follow up with the primary. 5. Diabetes with the presence of acute kidney injury. I agree with holding the metformin. Blood sugar being controlled. I am going to increase IV fluid to 100 per hour. 6. Coronary artery disease, congestive heart failure, looked to me the patient is still on the dry side. Keep holding Lasix. We will follow up with the primary. Thank you Dr. Ahn for allowing us to participate in the care of your patient. time spend to coordinate the care , speaking with other Physician and team staff , face to face with the patient and placing order 65 min DODIE/KIM Voice ID: [id number] Report ID: [id number] MTDWill
[2019-12-25 16:19] LABS: Urine Appearance CLEAR; Urine Bilirubin NEGATIVE (NEG); Urine Blood TRACE (NEG); Urine Color YELLOW; Urine Glucose 1+ (NEG); Urine Protein 2+ (NEG); Urine Urobilinogen 0.2 mg/dL (0.2-1.0)
[2019-12-25 16:24] LABS: Urine Protein/Creatinine Ratio 2.84 ratio (<0.15)
[2019-12-25 16:25] LABS: Urine Microscopic Reflex ORDER UMIC
[2019-12-25 16:33] LABS: Urine Bacteria <20 /HPF (NONE SEEN); Urine Culture Reflex Order NOT NEEDED; Urine Mucus 1+ /HPF (NONE SEEN)
--- NOTE | 2019-12-25 17:39 | P.PN ---
Subjective Date of Service: 12/25/19 Primary Care Provider: Angela Chief Complaint: Duodenitis, ARF Subjective: No new changes Review of Systems 10-point ROS is otherwise unremarkable Physical Examination - Vital Signs Temperature: 97.3 F Blood Pressure: 143/72 Pulse: 65 Respirations: 16 Pulse Ox (%): 100 - Physical Exam General: Alert, In no apparent distress HEENT: Sclerae nonicteric Neck: No LAD Respiratory: Clear to auscultation bilaterally, Normal air movement Cardiovascular: Regular rate/rhythm, Normal S1 S2 Gastrointestinal: Soft and benign, Tenderness (epigastric, mild) Musculoskeletal: No erythema, No tenderness Integumentary: No rashes Neurological: Normal speech, Normal affect - Studies Laboratory Data (last 24 hrs) 12/24/19 19:23: PT 11.4, INR 0.97 12/24/19 19:23: WBC 7.0, Hgb 11.8 L, Hct 35.7 L, Plt Count 226 12/24/19 19:23: Sodium 140, Potassium 4.9, BUN 47 H, Creatinine 2.41 H, Glucose 83, Magnesium 2.2, Total Bilirubin 0.4, AST 20, ALT 24, Alkaline Phosphatase 118 H Assessment & Plan Physician Review Additional Text: Duodenitis without hemorrhage Acute renal failure on chronic kidney disease Chronic systolic congestive heart failure Diabetes mellitus type 2-insulin dependent CAD COPD Tobacco abuse Plan Duodenitis without hemorrhage: Continue with IV antibiotics, pain medication as needed. PPI Was NPO this morning for possible procedure, pending GI evaluation. Will continue to monitor closely for any signs of bleeding. DVT prophylaxis with heparin 5000 units subcutaneous twice daily. 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 Patient denies any use of NSAIDs or recent antibiotic use. Likely prerenal - pt reports not drinking much water when working in heat. Nephrology consulted, holding nephrotoxic meds Chronic systolic congestive heart failure: Patient without any signs overload at this time. Will continue to monitor closely. Hold home Lasix Diabetes mellitus type 2-insulin dependent: Will continue patient's home medications, a.c. HS Accu-Cheks, sliding scale insulin therapy. CAD: Continue patient's home medications. COPD: Appears stable. Will provide medications as needed. Tobacco abuse: Discussed need for cessation with patient, offered nicotine patch patient refused Time Spent Managing Pts Care (In Minutes): 35
[2019-12-25] MEDS ORDERED: NITROGLYCERIN 0.4 MG/TAB SL PRN (17:40)
[2019-12-26] MEDS: METRONIDAZOLE 500mg IVPB 500 MG/100 ML BAG IV SCH ×3 (00:57→16:51)
[2019-12-26 04:27] LABS: Absolute Lymphocytes (CBC) 0.9 K/uL (0.7-4.9); Basophils % 0.9 % (0-1.3); Hematocrit 33.4 % (39.6-49.0); Lymphocytes % 21.8 % (15.3-44.8); MPV 8.8 fL (7.6-11.3); RBC Red Blood Cell Count 3.79 M/uL (4.33-5.43)
[2019-12-26 05:04] LABS: Albumin 2.6 g/dL (3.4-5.0); Ferritin 38.7 ng/mL (26-388); Magnesium 1.6 mg/dL (1.8-2.4); Phosphorus 2.5 mg/dL (2.5-4.9)
[2019-12-26] MEDS: INSULIN -REGULAR HUMAN 50 UNIT/0.5 ML ML SQ SCH ×4 (07:30→21:00)
[2019-12-26] MEDS: D5 0.45 NS 1,000 ML IV SCH (08:00)
[2019-12-26] MEDS: CIPROFLOXACIN 400mg IV 400 MG/200 ML BAG IV SCH ×2 (08:19→20:55)
[2019-12-26] MEDS: PANTOPRAZOLE 40 MG INJ IVP SCH (08:20)
[2019-12-26] MEDS: SODIUM CHLORIDE 0.9% 10ML INJ IV PRN (08:20)
[2019-12-26] MEDS: ATORVASTATIN 80 MG TAB PO SCH (08:21)
[2019-12-26] MEDS: allopurinoL 100 MG TAB PO SCH (08:21)
[2019-12-26] MEDS: METOPROLOL XL 50 MG TAB PO SCH (08:21)
[2019-12-26] MEDS: ISOSORBIDE MONO SR 30 MG TAB PO SCH (08:22)
[2019-12-26] MEDS ORDERED: D5 0.45 NS 1,000 ML IV SCH (10:14)
--- NOTE | 2019-12-26 10:23 | P.PN ---
Subjective Date of Service: 12/26/19 Primary Care Provider: Miller Chief Complaint: Duodenitis, ARF Subjective Pt admitted with duodenitis , found to have Chandni , he has CKD baseline Cr ~1.6 , now off lasix , and MARIELLE Today no new complaints or overnight events Stable VS will reduce IVF rate scheduled for EGD today Physical exam general: AAOX3, NAD , o Neck; Supple, No elevated JVD hear: RRR, normal S1,2 no murmur or rub Chest: CTAB, no rlaes or wheezes Abdomen: Soft , Nt Extremities No edema or ulcer Assessment And Plan: CHANDNI on CKD III due to dehydration +MARIELLE and diuretics will cont to hold lasix and Diuretics US no hydro will reduce IVF rate renal dose meds HTN BP controlled Dueodenitis scheduled for EGD today on Cipro and flagyl DM as per primary team CAD HX of CABG and CHF euvolemic will cont to hold lasix and Diuretics Physical Examination - Vital Signs Temperature: 97.6 F Blood Pressure: 150/69 Pulse: 72 Respirations: 18 Pulse Ox (%): 100 Assessment And Plan Physician Review Additional Text: Plan of care discussed with Ludin Pickering, and I agree with plan as noted above.
--- NOTE | 2019-12-26 11:15 | EKG ---
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
[2019-12-26] MEDS ORDERED: NA CHLORIDE 0.9% 1,000 ML ONE (14:13)
[2019-12-26] MEDS ORDERED: LIDOCAINE 1% MPF 5 ML VIAL ONE (15:15)
[2019-12-26] MEDS ORDERED: propofoL 200 MG/20 ML VIAL IV ONE (15:16)
[2019-12-26] MEDS ORDERED: EPINEPHRINE/PF 1 MG/ML AMP ONE (15:18)
--- NOTE | 2019-12-26 15:54 | ENDO RPT ---
[address], [address] EGD PROCEDURE REPORT EXAM DATE: 12/26/2019 PATIENT NAME: Srinivasa Hernandez MR#: [id number] BIRTHDATE: 1960 ATTENDING: Butr Resendiz Dr STATUS: inpatient - 7 HYDRAULIC REPAIRER: Monie Keyes RN and Amanda Batista CST INDICATIONS: The patient is a 59 yr old Male here for an EGD due to right upper quadrant abdominal pain and CT abdomen/pelvis revealing duodenitis PROCEDURE PERFORMED: EGD with biopsy MEDICATIONS: Per Anesthesia. TOPICAL ANESTHETIC: none CONSENT: The patient understands the risks and benefits of the procedure and understands that these risks include, but are not limited to: sedation, allergic reaction, infection, perforation and/or bleeding. Alternative means of evaluation and treatment include, among others: physical exam, x-rays, and/or surgical intervention. The patient elects to proceed with this endoscopic procedure. DESCRIPTION OF PROCEDURE: During intra-op preparation period all mechanical medical equipment was checked for proper function. Hand hygiene and appropriate measures for infection prevention was taken. Procedure, possible complications, and alternatives including but not limited to the possibility of bleeding, perforation, tear, infection, sepsis, need for surgery, need for blood transfusion, and anesthesia related complications were explained to the patient. After the risks, benefits and alternatives of the procedure were thoroughly explained, Informed consent was verified, confirmed and timeout was successfully executed by the treatment team. The patient was placed in the left lateral position. The patient was anesthetized with topical anesthesia. Through the anesthetized oropharyngeal area, the scope was passed without any difficulty. The [id number] ([id number]) endoscope was introduced through the mouth and advanced to the second portion of the duodenum. Retroflexed views revealed no abnormalities. The gastroscope was then slowly withdrawn and removed. LA Class A esophagitis was found in the lower esophagus. Multiple erosions were found in the antrum. Multiple biopsies were obtained and sent to pathology. Duodenitis was found in the bulb of the duodenum. Multiple (3) clean-based ulcers (2 mm at 1 o'clock, 6 mm at 11 o'clock, 5 mm at 6 o'clock) were found in the bulb of the duodenum. ADVERSE EVENTS: There were no complications. IMPRESSIONS: 1. LA Class A esophagitis in the lower esophagus 2. Multiple (3) erosions in the pre-pyloric antrum 3. Duodenitis in the bulb of the duodenum 4. Multiple (3) clean-based ulcers (2 mm at 1 o'clock, 6 mm at 11 o'clock, 5 mm at 6 o'clock) in the bulb of the duodenum RECOMMENDATIONS: 1. await biopsy results 2. acid suppression therapy REPEAT EXAM: Burt Resendiz Dr eSigned: Burt Resendiz Dr 12/26/2019 3:53 PM cc: CPT CODES: ICD9 CODES: PATIENT NAME: Srinivasa Hernandez MR#: [id number]
--- NOTE | 2019-12-26 17:45 | P.PN ---
Subjective Date of Service: 12/26/19 Primary Care Provider: Angela Chief Complaint: Duodenitis, ARF Subjective: No new changes (continues with nausea, and abdominal pain) Physical Examination - Vital Signs Temperature: 97 F Blood Pressure: 119/67 Pulse: 64 Respirations: 12 Pulse Ox (%): 97 - Physical Exam General: Alert, Mild distress HEENT: Sclerae nonicteric Neck: Supple, JVD not distended Respiratory: Clear to auscultation bilaterally, Normal air movement Cardiovascular: Regular rate/rhythm, Normal S1 S2 Gastrointestinal: Non-distended, Tenderness (epigastric) Musculoskeletal: No tenderness Integumentary: No rashes Neurological: Normal speech, Normal affect Assessment & Plan Physician Review Additional Text: Duodenitis without hemorrhage Acute renal failure on chronic kidney disease Chronic systolic congestive heart failure Diabetes mellitus type 2-insulin dependent CAD COPD Tobacco abuse Plan Duodenitis without hemorrhage: Continue with IV antibiotics, pain medication as needed. 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 Patient denies any use of NSAIDs or recent antibiotic use. Likely prerenal - pt reports not drinking much water when working in heat. Nephrology consulted, holding nephrotoxic meds Improvement with IV fluid Chronic systolic congestive heart failure: Patient without any signs overload at this time. Will continue to monitor closely. Hold home Lasix Diabetes mellitus type 2-insulin dependent: Will continue patient's home medications, a.c. HS Accu-Cheks, sliding scale insulin therapy. CAD: Continue patient's home medications. COPD: Appears stable. Will provide medications as needed. Tobacco abuse: Discussed need for cessation with patient, offered nicotine patch patient refused Time Spent Managing Pts Care (In Minutes): 35
--- NOTE | 2019-12-26 19:49 | CON ---
Date of Consultation: 12/26/2019 Reason For Consultation: Right upper quadrant pain with CT scan revealing duodenitis. History Of Present Illness: The patient is a 59-year-old male with history of diabetes, hyp ertension, hyperlipidemia, chronic kidney disease, COPD, coronary artery disease status post [place], stat us post CABG. The patient presented to the hospital with right upper quadrant pain over past 6 days, maximum 8/10, now down on pain medications. The patient states that he has never had this pain befo re. He denies any nausea, vomiting, fevers, chills, night sweats, melena, hematochezia, melena, coff ee-ground emesis, hematuria, dysuria, polydipsia. Pain does not radiate anywhere. He states it stay s in the right upper quadrant area. CT abdomen and pelvis revealed duodenitis. The ultrasound of th e abdomen was negative. Biopsies were unremarkable for other possible etiology it appears as per ED review and evaluation, and ongoing evaluation was followed by primary care. Past Medical History: Significant for diabetes, hypertension, coronary artery disease, status post c oronary stents and CABG, congestive heart failure. COPD, hyperlipidemia, gouty arthropathy, chronic kidney disease, pacemaker defibrillator. Medications: Medications at home included aspirin, Lipitor, Plavix, Lasix, Tresiba which is insulin degludec, Isordil, metoprolol, Nitrostat, lisinopril, spironolactone 25 mg. Allergies: NKDA. Social History: He is currently going through a divorce. He states 3 children. Tobacco half pack p er day. Occasional alcohol with occasional beer. Family History: Father of myocardial infarction. Mother of cancer. Per the chart review, also she had lung disease and heart disease. Review of Systems: The patient has right upper quadrant pain, but denies any melena, hematochezia, hematemesis, coffee-g round emesis, hematuria, dysuria, polydipsia, chest pain, shortness of breath, seizure, syncope, lowe r extremity edema, muscle aches, joint aches, backaches, depression, anxiety. Physical Examination: Vital Signs: The patient is 5 feet 9 inches, 178 pounds, BMI 26.3 kg/sq m. Temperature 97 degrees F ahrenheit, pulse 64, respirations 12, blood pressure 119/67, O2 saturation 100%. General: He is a well-nourished, well-developed male, somewhat obese, lying in bed, in no acute dist ress. HEENT: Normocephalic, atraumatic. Anicteric. Pupils equal, round, and reactive to light. Extraocu lar movements intact. Oropharynx is clear. Neck: Supple. No masses. Respirations: Clear to auscultation bilaterally. Cardiac: Regular rate and rhythm. No gallops or rubs. Abdomen: Positive bowel sounds. Soft, nondistended. Mild tenderness in the right upper quadrant ar ea. No peritoneal or Santos sign. No rebound. Extremities: No clubbing, cyanosis, or edema. 2+ pulses. Neurologic: Oriented x3. Grossly nonfocal. 5/5 motor strength. Sensation intact to light touch. Laboratory Data: White count of 4.1, hemoglobin 11.6, this is somewhat low, normal being 13.6 to 17. 9. He has an MCV of 88, platelet count of 192, polys of 63%, lymphocytes 22%, monocytes of 12%, eosi nophils 3%, basophils 1%. PT of 11.4, INR 0.97. The patient has a sodium 141, potassium 5.0, chlori de 114, bicarb 23, BUN of 31, creatinine of 1.97 down from 2.41 on admission, glucose 127, calcium 8. 1, phosphorus 2.5, magnesium 1.6, ferritin of 38.7. Yesterday, the patient had a total bilirubin of 0.4, direct bilirubin of 0.1, AST of 20, ALT of 24, alkaline phosphatase 180. CK 137, troponin I les s than 0.02. B-type natriuretic peptide elevated at 2250. Serum protein of 7.7, albumin 3.7. UA sh owed 1+ glucose, trace blood, 5 to 10 squamous epithelial cells, no white blood cells, 5 to 10 red bl ood cells, 1+ mucus, 2+ urine protein. CT abdomen and pelvis revealed duodenitis in the proximal duo denum. Ultrasound of the abdomen was negative. Impression: 1.Right upper quadrant pain, maximum 8/10, now down to 0 over the past 6 days. The patient is on p. r.n. pain medicine now in hospital, doing much better. CT abdomen and pelvis revealed duodenitis of the proximal duodenum. Ultrasound of the abdomen was negative. Labs did not reveal any other possib le findings excluding his right upper quadrant pain. 2.Anemia. Hemoglobin 11.6. 3.History of diabetes, hypertension, coronary artery disease, status post coronary artery bypass gra ft and myocardial infarction, cardiac stents, hyperlipidemia, congestive heart failure, chronic kidne y disease, chronic obstructive pulmonary disease, gouty arthropathy, and pacemaker defibrillator plac ement. Recommendations: 1.PPI. 2.EGD. 3.Monitor labs. 4.P.r.n. pain medicines continued. KIM/KIM Voice ID: [id number] Report ID: [id number]
[2019-12-26] MEDS: HEPARIN 5000 UNIT/ML 1 ML VIAL SQ SCH (20:55)
[2019-12-27] MEDS: METRONIDAZOLE 500mg IVPB 500 MG/100 ML BAG IV SCH ×2 (01:26→08:17)
[2019-12-27 06:00] LABS: Albumin 2.7 g/dL (3.4-5.0); Magnesium 1.6 mg/dL (1.8-2.4); Phosphorus 2.8 mg/dL (2.5-4.9); Potassium 5.1 mmol/L (3.5-5.1)
[2019-12-27 06:58] LABS: Absolute Lymphocytes (CBC) 0.8 K/uL (0.7-4.9); Hematocrit 34.4 % (39.6-49.0); Lymphocytes % 21.7 % (15.3-44.8); MPV 8.5 fL (7.6-11.3); RBC Red Blood Cell Count 3.91 M/uL (4.33-5.43)
[2019-12-27 07:30] VITALS: BMI 26.5
[2019-12-27] MEDS: INSULIN -REGULAR HUMAN 50 UNIT/0.5 ML ML SQ SCH (07:30)
[2019-12-27] MEDS ORDERED: MAGNESIUM SULFATE 1 gm IVPB 1 GM/100 ML BAG IV ONE (07:36)
[2019-12-27] MEDS: CIPROFLOXACIN 400mg IV 400 MG/200 ML BAG IV SCH (08:16)
[2019-12-27] MEDS: allopurinoL 100 MG TAB PO SCH (08:17)
[2019-12-27] MEDS: PANTOPRAZOLE 40 MG INJ IVP SCH (08:17)
[2019-12-27] MEDS: ATORVASTATIN 80 MG TAB PO SCH (08:17)
[2019-12-27] MEDS: METOPROLOL XL 50 MG TAB PO SCH (08:17)
[2019-12-27] MEDS: ISOSORBIDE MONO SR 30 MG TAB PO SCH (08:17)
[2019-12-27] MEDS: HEPARIN 5000 UNIT/ML 1 ML VIAL SQ SCH (08:18)
[2019-12-27 08:28] VITALS: BP 165/82
[2019-12-27 08:39] VITALS: O2SAT 99
[2019-12-27 10:04] VITALS: TEMP 97.9
--- NOTE | 2019-12-27 12:12 | P.DS ---
Admission Date: 12/24/19 Discharge Date: 12/27/19 Primary Care Provider: Angela Disposition: ROUTINE DISCHARGE Discharge Condition: GOOD Reason for Admission: Duodenitis, ARF Consultations: GI - Dr. Resendiz Procedures: CT 12/23:IMPRESSION: Apparent thickening of the wall of the proximal duodenum may indicate inflammation Renal U/S: IMPRESSION: Unremarkable renal sonogram. RUQ U/S: IMPRESSION: Unremarkable gallbladder ultrasound. EGD (12/26/19): 1. LA class A esophagitis in the lower esophagus 2. Multiple (3) erosions in the pre-pyloric antrum 3. Duodenitis in the bulb of the duodenum 4. Multiple (3) clean based ulcers (2 mm at 1 o'clock, 6 mm at 11 o'clock, 5 mm at 6 o'clock) in the bulb of the duodenum Biopsies performed Problem list Duodenitis without hemorrhage KENYA on chronic kidney disease Chronic systolic congestive heart failure Diabetes mellitus type 2-insulin dependent CAD COPD Tobacco abuse Brief History of Present Illness: 51-year-old male with history of DM 2, CKD, CHF, CAD, HTN so presented to the ED with approximately 3-5 days of upper abdominal pain, associated with nausea and vomiting. The pain was described as constant and crampy. It was aggravated by food, alleviated by nothing. Hospital Course: The patient was admitted due to severe epigastric pain, found to have wall thickening of the duodenum on CT scan consistent with duodenitis. Associated with some nausea and decreased p.o. intake. He was also found to have an KENYA (Cr: 2.41) which was felt to be pre renal and improved with IV fluids. He was initially empirically treated with Cipro and Flagyl until the EGD results, patient never appeared septic. Due to the severity of his pain and the CT findings, GI (Dr. Resendiz) was consulted. The patient underwent EGD on 12/26/2019 and was found to have multiple duodenal ulcerations. Biopsies were taken. Patient was monitored overnight, hemoglobin remained stable, and patient felt well. On day of discharge, the patient reported minimal to no pain, and able to tolerate p.o. intake. He was discharged home with a new prescription for Protonix, and to follow up with GI. Vital Signs/Physical Exam: Temp Pulse Resp BP Pulse Ox 97.9 F 74 18 165/82 H 100 12/27/19 08:00 12/27/19 08:17 12/27/19 08:00 12/27/19 08:17 12/27/19 08:00 General: Alert, In no apparent distress HEENT: Sclerae nonicteric Neck: Supple, No LAD Respiratory: Clear to auscultation bilaterally, Normal air movement Cardiovascular: No edema, Regular rate/rhythm, Normal S1 S2 Gastrointestinal: Soft and benign, Non-distended, No tenderness Musculoskeletal: No tenderness Integumentary: No rashes Neurological: Normal speech, Normal affect Laboratory Data at Discharge: WBC 3.5 K/uL (4.3-10.9) L D 12/27/19 06:40 Hgb 11.7 g/dL (13.6-17.9) L 12/27/19 06:40 Hct 34.4 % (39.6-49.0) L 12/27/19 06:40 Plt Count 182 K/uL (152-406) 12/27/19 06:40 PT 11.4 SECONDS (9.5-12.5) 12/24/19 19:23 INR 0.97 12/24/19 19:23 Sodium 141 mmol/L (136-145) 12/27/19 05:26 Potassium 5.1 mmol/L (3.5-5.1) 12/27/19 05:26 BUN 29 mg/dL (7-18) H 12/27/19 05:26 Creatinine 2.01 mg/dL (0.55-1.3) H 12/27/19 05:26 Glucose 186 mg/dL (74-106) H 12/27/19 05:26 Uric Acid 11.1 mg/dL (3.5-7.2) H 12/25/19 05:47 Phosphorus 2.8 mg/dL (2.5-4.9) 12/27/19 05:26 Magnesium 1.6 mg/dL (1.8-2.4) L 12/27/19 05:26 Total Bilirubin 0.4 mg/dL (0.2-1.0) 12/24/19 19:23 AST 20 U/L (15-37) 12/24/19 19:23 ALT 24 U/L (12-78) 12/24/19 19:23 Alkaline Phosphatase 118 U/L (45-117) H 12/24/19 19:23 Home Medications: Aspirin [Aspir-Low] 81 mg PO DAILY 06/22/18 Atorvastatin Calcium [Lipitor] 80 mg PO DAILY 06/22/18 Clopidogrel Bisulfate [Plavix*] 75 mg PO DAILY 06/22/18 Furosemide 1 tab PO PRN PRN 06/22/18 Insulin Degludec [Tresiba Flextouch U-100] 24 unit SQ DAILY 06/22/18 Isosorbide Mononitrate [Isosorbide Mononitrate ER] 30 mg PO DAILY 06/22/18 Metoprolol Succinate 1 tab PO DAILY 06/22/18 Nitroglycerin [Nitrostat*] 0.4 mg SL PRN PRN 06/22/18 lisinopriL [Lisinopril] 1 tab PO DAILY 06/22/18 Spironolactone 25 mg PO DAILY 12/25/19 Pantoprazole Sodium [Protonix] 40 mg PO DAILY 30 Days #30 tablet. 12/27/19 New Medications: Pantoprazole Sodium [Protonix] 40 mg PO DAILY 30 Days #30 tablet. Patient Discharge Instructions: Follow up with Dr. Resendiz. Follow up with your PCP within 1 week to check on your bloodwork (kidney function). Hold Lasix (furosemide) and lisinopril until seen by your PCP. Diet: AHA Activity: Ad jazmin Followup: Burt Resendiz MD [ASSOCIATE-ACTIVE - CAN ADMIT] - Time spent managing pt's care (in minutes): 35
[2019-12-30 22:17] LABS: Albumin, (SPE) 2.8 g/dL (3.8-4.8); Alpha-1-Globulins 0.3 g/dL (0.2-0.3); Alpha-2-Globulins 0.6 g/dL (0.5-0.9); INTERPRETATION REPORT
[2019-12-31 11:41] LABS: Vitamin D 1,25-Dihydroxy Total 19 pg/mL (18-72); Vitamin D,1,25-OH2, D2 <8 pg/mL
== END 2019-12-27 12:02 | disposition home or self-care (01) ==
LOC: ER 17:25 → INTOOBSV 21:02 → 2ND 21:02
PROVIDERS: ADMIT Emergency Medicine; ATTEND Hospitalist
PROC: 0DB68ZX Excision of Stomach, Via Natural or Artificial Opening Endoscopic, Diagnostic (ICD-10-PCS; principal; 2019-12-26 13:30)
DX: K29.80 Duodenitis without bleeding (principal); K20.9 Esophagitis, unspecified; K26.9 Duodenal ulcer, unspecified as acute or chronic, without hemorrhage or perforation; K25.9 Gastric ulcer, unspecified as acute or chronic, without hemorrhage or perforation; K29.50 Unspecified chronic gastritis without bleeding; N17.9 Acute kidney failure, unspecified; E11.22 Type 2 diabetes mellitus with diabetic chronic kidney disease; I13.0 Hypertensive heart and chronic kidney disease with heart failure and stage 1 through stage 4 chronic kidney disease, or unspecified chronic kidney disease; N25.81 Secondary hyperparathyroidism of renal origin; N18.6 End stage renal disease; Z99.2 Dependence on renal dialysis; D63.1 Anemia in chronic kidney disease; E11.21 Type 2 diabetes mellitus with diabetic nephropathy; K85.90 Acute pancreatitis without necrosis or infection, unspecified; E85.81 Light chain (AL) amyloidosis; I50.22 Chronic systolic (congestive) heart failure; K52.9 Noninfective gastroenteritis and colitis, unspecified; I25.10 Atherosclerotic heart disease of native coronary artery without angina pectoris; J44.9 Chronic obstructive pulmonary disease, unspecified; I25.2 Old myocardial infarction; E78.5 Hyperlipidemia, unspecified; F17.210 Nicotine dependence, cigarettes, uncomplicated; Z79.4 Long term (current) use of insulin; Z79.82 Long term (current) use of aspirin; Z79.02 Long term (current) use of antithrombotics/antiplatelets; Z79.899 Other long term (current) drug therapy; Z95.1 Presence of aortocoronary bypass graft; Z95.5 Presence of coronary angioplasty implant and graft; Z95.810 Presence of automatic (implantable) cardiac defibrillator
CPT/HCPCS: 96365; 93005; 87040 ×2; 85025 ×4; 80048 ×2; 36415 ×3; 83735 ×4; 82550; 88312; 85610; 85044; 82565; 82947 ×10; 80076; 84550; 88305; 82652; 80069 ×2; 82570; 84484; 82728; 82746; 82607; 83970; 83880; 84156; 84165; 74176; 71045; 76705; 76770; 96375; 99285; 43239; J2704; J1644 ×2; C9113 ×4; J3475; J2543; J2270; G0378 ×7; J7799; J7030 ×3; J2405; J0744 ×6; 81003; 81015; J0171

== ENCOUNTER 2020-08-26 10:56 | Emergency (ER) | payer OTHER ==
--- OUTSIDE RECORDS SUMMARY | 2020-08-26 10:58 | XMS REPORT | Continuity of Care Document ---
:1960 Author Organization [facility] t Address [address] [place] [address] Care Team Providers Name Role Phone Lawrence Goff MD Attending Clinician [phone] Kathy LOPEZ, Nnamdi Attending Clinician Trena LOPEZ, Oriana Velasco Attending Clinician [phone] Doctor Unassigned, Name Attending Clinician Unavailable Problems This patient has no known problems. Allergies, Adverse Reactions, Alerts This patient has no known allergies or adverse reactions. Medications This patient has no known medications. Procedures This patient has no known procedures. Encounters Start End Encounter Admission Attending Care Care Encounter Source Date/Time Date/Time Type Type Clinicians Facility Department ID 2020-04-26 2020-04-26 [facility] Eben Cantu [id number] 10:15:00 23:59:00 Encounter Lawrence scherer [id number] [facility] [id number] 2020-01-19 2020-01-19 Hospital Alondra Chavez [id number] 11:45:00 23:59:00 Encounter Nnamdi Quintero [id number] [facility] [id number] 2020-01-13 2020-01-13 Telephone BRITT Albrecht [id number] 00:00:00 00:00:00 Oriana Gomes [id number] [place] [id number] Professio [id number] [address] 2020-01-09 2020-01-09 [facility] [id number] 00:00:00 00:00:00 Orianagrace Ignacioton [id number] [place] [id number] Professio [phone] [address] 2020-01-09 2020-01-09 Orders Doctor GARRETT [id number] 00:00:00 00:00:00 Only Unassigned, SHIKHA [id number] [place] [facility] [id number] 2019-11-18 2019-11-18 [place] [id number] 00:00:00 00:00:00 Oriana A [place] [id number] [place] [id number] [facility] [id number] [address] 2019-06-30 2019-06-30 Orders Doctor GARRETT [id number] 00:00:00 00:00:00 Only Unassigned, SHIKHA [id number] [place] [facility] [id number] [facility] [id number] 00:00:00 00:00:00 Oriana A [place] [id number] [place] [id number] [facility] [id number] [address] 2019-06-11 2019-06-11 Orders Doctor GARRETT [id number] 00:00:00 00:00:00 Only Unassigned, SHIKHA [id number] [place] [id number] [id number] 2019-01-16 2019-01-16 Outpatient E [facility] [id number] 11:09:00 11:09:00 Vickie velasco [facility] l Results This patient has no known results.
[2020-08-26 11:28] LABS: Absolute Lymphocytes (CBC) 0.9 K/uL (0.7-4.9); Basophils % 0.8 % (0-1.3); Hematocrit 34.4 % (39.6-49.0); Lymphocytes % 15.1 % (15.3-44.8); MPV 9.3 fL (7.6-11.3); Protime INR 1.05; RBC Red Blood Cell Count 3.94 M/uL (4.33-5.43)
[2020-08-26] MEDS ORDERED: FUROSEMIDE 40 MG/4 ML VIAL ONE (11:38)
[2020-08-26] MEDS ORDERED: LEVALBUTEROL 1.25 MG/3 ML NEB ONE (11:38)
[2020-08-26 11:41] LABS: ALT/SGPT 19 U/L (12-78); AST/SGOT 15 U/L (15-37); Albumin 2.5 g/dL (3.4-5.0); Alkaline Phosphatase 157 U/L (45-117); BUN Blood Urea Nitrogen 26 mg/dL (7-18); Bicarbonate 23 mmol/L (21-32); Bilirubin Direct 0.1 mg/dL (0-0.2); Bilirubin Total 0.4 mg/dL (0.2-1.0); Glucose Level 255 mg/dL (74-106); Magnesium 1.8 mg/dL (1.8-2.4); NT PRO-BNP 4469 pg/mL (<125); Potassium 4.3 mmol/L (3.5-5.1); Protein, Total 6.7 g/dL (6.4-8.2); Sodium Level 139 mmol/L (136-145); Troponin (Emerg Dept Use Only) < 0.02 ng/mL (0.0-0.045)
--- NOTE | 2020-08-26 11:55 | RAD REPORT ---
EXAM DESCRIPTION: RAD - Chest Single View - 08/26/2020 11:48 am CLINICAL HISTORY: shortness of breath Chest pain. COMPARISON: Chest Single View dated 12/24/2019; Chest Single View dated 03/11/2019; Chest Single View dated 06/21/2018; CHEST SINGLE VIEW dated 09/17/2014 FINDINGS: Portable technique limits examination quality. Mild to moderate left lung base infiltrate/pleural effusions suspected. The lungs are otherwise clear . The heart is normal in size. Sternotomy wires with single lead pacer/ defibrillator device. IMPRESSION: Mild to moderate left lung base infiltrate/ pleural effusion is suspected.
--- NOTE | 2020-08-26 13:56 | EDPHYS ---
[facility] Name: Srinivasa Hernandez Age: 60 yrs Sex: Male : 1960 Arrival Date: 08/26/2020 Time: 10:58 Bed 4 Private MD: ED Physician Rich Ramirez HPI: 08/26 11:07 This 60 yrs old Male presents to ER via Unassigned with complaints of jmm Shortness Of Breath. 11:07 The patient has shortness of breath at rest. Onset: The symptoms/episode began/occurred jmm gradually, 1 week(s) ago. Duration: The symptoms are continuous, and are steadily getting worse. The patient's shortness of breath is aggravated by nothing, is alleviated by nothing. Associated signs and symptoms: Pertinent negatives: chest pain, fever. The patient has experienced similar episodes in the past, CHF. Patient states running out of his lasix. . Historical: - Allergies: 11:02 No Known Drug Allergies; ll1 - PMHx: 11:02 Diabetes - IDDM; Hypertension; lifevest in place; Myocardial infarction; ll1 - PSHx: 11:02 CABG; Heart stents; ll1 - Immunization history:: Client reports having NOT received the Covid vaccine. Flu vaccine is up to date. - Social history:: Smoking status: Patient reports the use of cigarette tobacco products, denies chronic smoking, but will smoke occasionally, smokes one-half pack cigarettes per day. ROS: 11:07 Constitutional: Negative for fever, chills, and weight loss, Cardiovascular: Negative jmm for chest pain, palpitations, and edema. 11:07 Respiratory: Positive for shortness of breath. 11:07 All other systems are negative. Exam: 11:07 Constitutional: This is a well developed, well nourished patient who is awake, alert, jmm and in no acute distress. Head/Face: atraumatic. Eyes: EOMI, no conjunctival erythema appreciated ENT: Moist Mucus Membranes Neck: Trachea midline, Supple Chest/axilla: Normal chest wall appearance and motion. Cardiovascular: Regular rate and rhythm. No edema appreciated Respiratory: Normal respirations, no respiratory distress appreciated Abdomen/GI: Non distended, soft Back: Normal ROM Skin: General appearance color normal 11:07 Musculoskeletal/extremity: mild pedal edema bilaterally. 11:07 Skin: Appearance: Color: normal in color. 11:07 Neuro: Motor: is normal. 11:07 Psych: Behavior/mood is pleasant, cooperative. Vital Signs: 11:07 BP 149 / 85; Pulse 80; Resp 18; Temp 97.7; Pulse Ox 99% on R/A; Weight 86.18 kg; Height ll1 5 ft. 9 in. (175.26 cm); Pain 0/10; 13:54 BP 135 / 70; Pulse 77; Resp 17; Pulse Ox 100% on R/A; ll1 11:07 Body Mass Index 28.06 (86.18 kg, 175.26 cm) ll1 MDM: 11:05 Patient medically screened. [facility] 13:52 Data reviewed: vital signs, nurses notes. Counseling: I had a detailed discussion with gayle the patient and/or guardian regarding: the historical points, exam findings, and any diagnostic results supporting the discharge/admit diagnosis, lab results, radiology results, the need for outpatient follow up, to return to the emergency department if symptoms worsen or persist or if there are any questions or concerns that arise at home. ED course: Patient states feeling much better. No signs of resp distress. patient advised to follow up with pcp. patient understood and agrees with the plan of care. . 08/26 11:06 Order name: Basic Metabolic Panel [facility] 08/26 11:06 Order name: CBC with Diff [facility] 08/26 11:06 Order name: LFT's; Complete Time: 11:42 [facility] 08/26 11:06 Order name: Magnesium; Complete Time: 11:42 [facility] 08/26 11:06 Order name: NT PRO-BNP; Complete Time: 11:42 [facility] 08/26 11:06 Order name: PT-INR; Complete Time: 11:34 [facility] 08/26 11:06 Order name: Troponin (emerg Dept Use Only); Complete Time: 11:42 [facility] 08/26 11:06 Order name: XRAY Chest (1 view) [facility] 08/26 11:06 Order name: EKG; Complete Time: 11:07 [facility] 08/26 11:07 Order name: Basic Metabolic Panel; Complete Time: 11:42 [facility] 08/26 11:07 Order name: CBC with Automated Diff; Complete Time: 11:34 [facility] 05/06 11:56 Order name: RAD; Complete Time: 11:58 [facility] 08/26 11:06 Order name: Cardiac monitoring; Complete Time: 11:17 [facility] 08/26 11:06 Order name: EKG - Nurse/Tech; Complete Time: 11:17 [facility] 08/26 11:06 Order name: IV Saline Lock; Complete Time: 11:09 [facility] 08/26 11:06 Order name: Labs collected and sent; Complete Time: 11: [facility] 08/26 11:06 Order name: O2 Per Protocol; Complete Time: 11: [facility] 08/26 11:06 Order name: O2 Sat Monitoring; Complete Time: 11: [facility] Administered Medications: 11:31 Drug: Lasix (furosemide) 40 mg Route: IVP; Site: right forearm; ll1 13:55 Follow up: Response: No adverse reaction; RASS: Alert and Calm (0) ll1 11:31 Drug: Xopenex (levalbuterol) (3) 1.25 mg Route: Inhalation; ll1 13:55 Follow up: Response: No adverse reaction; RASS: Alert and Calm (0) ll1 Disposition: 08/27 07:25 Co-signature as Attending Physician, Rich Ramirez MD I agree with the assessment and jameson plan of care. Disposition: 08/26/20 13:55 Discharged to Home. Impression: Combined systolic (congestive) and diastolic (congestive) heart failure. - Condition is Stable. - Discharge Instructions: Heart Failure. - Prescriptions for furosemide 40 mg Oral tablet - take 1 tablet by ORAL route once daily; 30 tablet. Albuterol Sulfate 90 mcg/actuation - inhale 1-2 puff by INHALATION route every 4-6 hours; 1 Inhaler. - Medication Reconciliation Form, Thank You Letter, Antibiotic Education, Prescription Opioid Use form. - Follow up: Private Physician; When: 2 - 3 days; Reason: Recheck today's complaints, Continuance of care, Re-evaluation by your physician. Signatures: Dispatcher [employer] Rich Desai MD MD cha Mickail, Joel, PA PA jmm Lewis, Lynsay, RN RN ll1 Corrections: (The following items were deleted from the chart) 08/26 14:09 13:55 08/26/2020 13:55 Discharged to Home. Impression: Combined systolic (congestive) ll1 and diastolic (congestive) heart failure. Condition is Stable. Forms are Medication Reconciliation Form, Thank You Letter, Antibiotic Education, Prescription Opioid Use. Follow up: Private Physician; When: 2 - 3 days; Reason: Recheck today's complaints, Continuance of care, Re-evaluation by your physician. gayle
--- NOTE | 2020-08-26 13:56 | ER ---
Nurse's Notes [facility] Name: Srinivasa Hernandez Age: 60 yrs Sex: Male : 1960 Arrival Date: 08/26/2020 Time: 10:58 Bed 4 Private MD: Diagnosis: Combined systolic (congestive) and diastolic (congestive) heart failure Presentation: 08/26 11:07 Chief complaint: Patient states: SOB and cough for 1 week. No fever. States he has CHF, ll1 out of Lasix he states. Coronavirus screen: Client denies travel out of the [place] in the last 14 days. cough unrelated to allergies, difficulty breathing, shortness of breath, Client presents with at least one sign or symptom that may indicate coronavirus-19. Standard/surgical mask placed on the client. Ebola Screen: Patient denies travel to an Ebola-affected area in the 21 days before illness onset. Initial Sepsis Screen: Does the patient meet any 2 criteria? No. Patient's initial sepsis screen is negative. Does the patient have a suspected source of infection? Yes: Productive cough/pneumonia. Risk Assessment: Do you want to hurt yourself or someone else? Patient reports no desire to harm self or others. Onset of symptoms was August 21, 2020. 11:07 Method Of Arrival: Ambulatory ll1 11:07 Acuity: MARILUZ 3 ll1 Triage Assessment: 14:20 Respiratory: Reports shortness of breath. ll1 Historical: - Allergies: 11:02 No Known Drug Allergies; ll1 - PMHx: 11:02 Diabetes - IDDM; Hypertension; lifevest in place; Myocardial infarction; ll1 - PSHx: 11:02 CABG; Heart stents; ll1 - Immunization history:: Client reports having NOT received the Covid vaccine. Flu vaccine is up to date. - Social history:: Smoking status: Patient reports the use of cigarette tobacco products, denies chronic smoking, but will smoke occasionally, smokes one-half pack cigarettes per day. Screenin:34 Abuse screen: Denies threats or abuse. Nutritional screening: No deficits noted. ll1 Tuberculosis screening: No symptoms or risk factors identified. Fall Risk IV access (20 points). Gait- Weak (10 pts.). Total Pete Fall Scale indicates Low Risk Score (25-44 pts). Fall prevention measures have been instituted. Side Rails Up X 2 Frequent Obs/Assesments occuring As available Patient and Family Educated on Fall Prevention Program and strategies. Assessment: 11:33 General: Appears in no apparent distress. distressed, Behavior is calm, cooperative, ll1 appropriate for age. Pain: Denies pain. Neuro: No deficits noted. Cardiovascular: No deficits noted. Cardiovascular: Denies chest pain, Heart tones S1 S2 Capillary refill < 3 seconds Clubbing of nail beds is absent Patient's skin is warm and dry. Rhythm is regular Parent/caregiver reports patient has had shortness of breath. Respiratory: Airway is patent Trachea midline Respiratory effort is even, unlabored, Respiratory pattern is regular, symmetrical, Breath sounds are coarse bilaterally. Onset: The symptoms/episode began/occurred the patient has mild shortness of breath. 12:30 Reassessment: No changes from previously documented assessment. Patient and/or family ll1 updated on plan of care and expected duration. Pain level reassessed. 13:30 Reassessment: No changes from previously documented assessment. Patient and/or family ll1 updated on plan of care and expected duration. Pain level reassessed. Vital Signs: 11:07 BP 149 / 85; Pulse 80; Resp 18; Temp 97.7; Pulse Ox 99% on R/A; Weight 86.18 kg; Height ll1 5 ft. 9 in. (175.26 cm); Pain 0/10; 13:54 BP 135 / 70; Pulse 77; Resp 17; Pulse Ox 100% on R/A; ll1 11:07 Body Mass Index 28.06 (86.18 kg, 175.26 cm) ll1 ED Course: 10:58 Patient arrived in ED. ds1 11:01 Kalin Dowell PA is PHCP. jmm 11:01 Rich Ramirez MD is Attending Physician. jmm 11:01 Yeimy Santos RN is Primary Nurse. ll1 11:01 Arm band placed on Patient placed in an exam room, on a stretcher. ll1 11:08 Triage completed. ll1 11:20 EKG done, by ED staff, reviewed by Kalin SILVESTRE. jd3 11:34 Patient has correct armband on for positive identification. Bed in low position. Call ll1 light in reach. Side rails up X 1. rail transit operator on. Pulse ox on. NIBP on. 14:08 No provider procedures requiring assistance completed. IV discontinued, intact, ll1 bleeding controlled, No redness/swelling at site. Pressure dressing applied. Administered Medications: 11:31 Drug: Lasix (furosemide) 40 mg Route: IVP; Site: right forearm; ll1 13:55 Follow up: Response: No adverse reaction; RASS: Alert and Calm (0) ll1 11:31 Drug: Xopenex (levalbuterol) (3) 1.25 mg Route: Inhalation; ll1 13:55 Follow up: Response: No adverse reaction; RASS: Alert and Calm (0) 1 Outcome: 13:55 Discharge ordered by . gayle 14:09 Patient left the ED. 1 14:09 Discharged to home ambulatory. 1 14:09 Condition: stable 14:09 Discharge instructions given to patient, Instructed on discharge instructions, follow up and referral plans. medication usage, Demonstrated understanding of instructions, follow-up care, medications, Prescriptions given X 2. Signatures: Kalin Dowell PA PA jmm Sanford, Demi ds1 Maximo Tellez, RN RN jYeimy Ardon RN RN ll1
[2020-08-26 14:25] VITALS: TEMP 97.7
[2020-08-26 14:26] VITALS: BP 135/70; O2SAT 100
--- NOTE | 2020-08-27 07:51 | EKG ---
Test Date: 2020-08-26 Test Time: 11:15:53 [place]: KERRY MEASUREMENT RESULTS: Intervals: Rate: 74 CT: 162 QRSD: 112 QT: 404 QTc: 448 [place]: P: 49 CT: 162 QRS: -31 T: 122 INTERPRETIVE STATEMENTS: Normal sinus rhythm Left axis deviation ST & T wave abnormality, consider lateral ischemia Abnormal ECG Compared to ECG 12/24/2019 19:22:36 ST (T wave) deviation now present Possible ischemia now present T-wave abnormality no longer present Electronically Signed On 08-27-20 07:48:25 CDT by Gurdeep Whitaker
== END 2020-08-26 14:09 | disposition home or self-care (01) ==
LOC: ER 10:56
DX: I50.40 Unspecified combined systolic (congestive) and diastolic (congestive) heart failure (principal); I10 Essential (primary) hypertension; F17.210 Nicotine dependence, cigarettes, uncomplicated; Z95.1 Presence of aortocoronary bypass graft; Z95.818 Presence of other cardiac implants and grafts
CPT/HCPCS: 93005; 85025; 80048; 36415; 83735; 85610; 80076; 84484; 83880; 71045; 96374; 99285; J1940

== ENCOUNTER 2021-02-18 10:29 | Observation (INO) | payer OTHER ==
[2021-02-18 11:03] LABS: Basophils % 0.8 % (0-1.3); Hematocrit 36.3 % (39.6-49.0); MPV 8.7 fL (7.6-11.3); RBC Red Blood Cell Count 4.09 M/uL (4.33-5.43)
[2021-02-18 11:08] LABS: Protime INR 0.97
[2021-02-18 11:20] LABS: ALT/SGPT 19 U/L (12-78); AST/SGOT 20 U/L (15-37); Albumin 2.4 g/dL (3.4-5.0); Alkaline Phosphatase 173 U/L (45-117); BUN Blood Urea Nitrogen 22 mg/dL (7-18); Bicarbonate 24 mmol/L (21-32); Bilirubin Direct 0.1 mg/dL (0-0.2); Bilirubin Total 0.4 mg/dL (0.2-1.0); Glucose Level 239 mg/dL (74-106); Magnesium 1.7 mg/dL (1.8-2.4); NT PRO-BNP 6043 pg/mL (<125); Potassium 3.8 mmol/L (3.5-5.1); Protein, Total 7.1 g/dL (6.4-8.2); Sodium Level 140 mmol/L (136-145); Troponin (Emerg Dept Use Only) < 0.02 ng/mL (0.0-0.045)
--- NOTE | 2021-02-18 12:04 | RAD REPORT ---
EXAM DESCRIPTION: RAD - Chest Single View - 02/18/2021 10:58 am CLINICAL HISTORY: CONGESTION COMPARISON: Chest Single View dated 08/26/2020; Chest Single View dated 12/24/2019; Chest Single View da an[place]ia 03/11/2019; Chest Single View dated 06/21/2018; Abdomen Pelvis Wo Contrast dated 12/24/2019 FINDINGS: Lines: Pacemaker. Lungs: Mild pulmonary edema. Pleural: Left pleural effusion. Cardiac: Mild cardiomegaly. Bones: No acute fractures. Sternotomy. Chronic deformity of the right chest wall. Other: IMPRESSION: Left pleural effusion likely secondary to pulmonary edema. Pneumonia at the left lung ba se difficult to entirely exclude, however.
[2021-02-18] MEDS ORDERED: ASPIRIN 81 MG CHEWABLE TABLET ONE (12:05)
--- NOTE | 2021-02-18 12:24 | EDPHYS ---
Physician Documentation [facility] Name: Srinivasa Hernandez Age: 60 yrs Sex: Male : 1960 Arrival Date: 02/18/2021 Time: 10:32 Bed 5 Private MD: Eduard Friedman ED Physician Bakari Webster HPI: 02/18 11:00 This 60 yrs old Male presents to ER via Ambulatory with complaints of Chest ma2 Pain. 11:28 The patient or guardian reports chest pain that is located primarily in the substernal ma2 area. Onset: gradually, 1 day(s) ago. Associated signs and symptoms: Pertinent negatives: cough, headache, lightheadedness, nausea, shortness of breath, syncope. Severity of pain: At its worst the pain was moderate in the emergency department the pain is unchanged. The patient has experienced similar episodes in the past. Historical: - Allergies: 10:39 No Known Drug Allergies; ll1 - PMHx: 10:39 Diabetes - IDDM; Hypertension; lifevest in place; Myocardial infarction; ll1 - PSHx: 10:39 defib; triple bypass; ll1 - Immunization history:: Client reports having NOT received the Covid vaccine. Flu vaccine is up to date. - Social history:: Smoking status: Patient reports the use of cigarette tobacco products, smokes one-half pack cigarettes per day, Patient/guardian denies using alcohol, street drugs, The patient lives with family. - Family history:: not pertinent. ROS: 11:28 Constitutional: Negative for fever, chills, and weight loss. ma2 11:28 All other systems are negative. Exam: 11:28 Constitutional: This is a well developed, well nourished patient who is awake, alert, ma2 and in no acute distress. Head/Face: Normocephalic, atraumatic. Eyes: Pupils equal round and reactive to light, extra-ocular motions intact. Lids and lashes normal. Conjunctiva and sclera are non-icteric and not injected. Cornea within normal limits. Periorbital areas with no swelling, redness, or edema. ENT: Nares patent. No nasal discharge, no septal abnormalities noted. Tympanic membranes are normal and external auditory canals are clear. Oropharynx with no redness, swelling, or masses, exudates, or evidence of obstruction, uvula midline. Mucous membranes moist. Neck: Trachea midline, no thyromegaly or masses palpated, and no cervical lymphadenopathy. Supple, full range of motion without nuchal rigidity, or vertebral point tenderness. No Meningismus. Chest/axilla: Normal chest wall appearance and motion. Nontender with no deformity. No lesions are appreciated. Cardiovascular: Regular rate and rhythm with a normal S1 and S2. No gallops, murmurs, or rubs. Normal PMI, no JVD. No pulse deficits. Respiratory: Lungs have equal breath sounds bilaterally, clear to auscultation and percussion. No rales, rhonchi or wheezes noted. No increased work of breathing, no retractions or nasal flaring. Abdomen/GI: Soft, non-tender, with normal bowel sounds. No distension or tympany. No guarding or rebound. No evidence of tenderness throughout. Skin: Warm, dry with normal turgor. Normal color with no rashes, no lesions, and no evidence of cellulitis. MS/ Extremity: Pulses equal, no cyanosis. Neurovascular intact. Full, normal range of motion. Neuro: Awake and alert, GCS 15, oriented to person, place, time, and situation. Cranial nerves II-XII grossly intact. Motor strength 5/5 in all extremities. Sensory grossly intact. Cerebellar exam normal. Normal gait. Vital Signs: 10:37 BP 170 / 96; Pulse 93; Resp 18; Temp 97.4; Pulse Ox 99% ; Weight 81.65 kg; Height 5 ft. ll1 9 in. (175.26 cm); Pain 3/10; 11:41 BP 159 / 95; Pulse 83; Resp 17; Pulse Ox 100% on R/A; ap3 13:36 BP 164 / 93; Pulse 78; Resp 21; Pulse Ox 100% on R/A; ap3 14:24 BP 143 / 78; Pulse 80; Resp 18 S; Pulse Ox 98% ; aa5 17:00 BP 155 / 80; Pulse 82; Resp 16 S; Temp 98.0(TE); Pulse Ox 99% on R/A; aa5 10:37 Body Mass Index 26.58 (81.65 kg, 175.26 cm) ll1 MDM: 10:45 Patient medically screened. ma2 11:28 Differential diagnosis: abnormal EKG, anxiety, gastroesophageal reflux disease (GERD), ma2 stable angina. The patient was given aspirin in the Emergency Department. Data reviewed: vital signs, nurses notes, EMS record. 12:23 HEART Score: History: ECG: Age: Risk Factors: Troponin:. Counseling: I had a detailed ma2 discussion with the patient and/or guardian regarding: the historical points, exam findings, and any diagnostic results supporting the discharge/admit diagnosis, the presence of at least one elevated blood pressure reading (>120/80) during this emergency department visit, the need for outpatient follow up. Response to treatment: the patient's symptoms have markedly improved after treatment. 02/18 10:46 Order name: Basic Metabolic Panel; Complete Time: 11:29 ma2 02/18 10:46 Order name: CBC with Diff; Complete Time: 11:17 ma2 02/18 10:46 Order name: LFT's; Complete Time: 11:29 ma2 02/18 10:46 Order name: Magnesium; Complete Time: 11:29 ma2 02/18 10:46 Order name: NT PRO-BNP; Complete Time: 11:29 ma2 02/18 10:46 Order name: PT-INR; Complete Time: 11:17 ma2 02/18 10:46 Order name: Troponin (emerg Dept Use Only); Complete Time: 11:29 ma2 02/18 10:46 Order name: XRAY Chest (1 view); Complete Time: 12:21 ma2 02/18 10:46 Order name: EKG; Complete Time: 10:47 ma2 02/18 12:54 Order name: SARS-COV-2 RT PCR (Document "Date of Onset" if Symptomatic) 02/18 13:13 Order name: CONS Physician Consult EDND 02/18 13:21 Order name: Echo with Doppler EDND 02/18 10:46 Order name: Cardiac monitoring; Complete Time: 10:53 ma2 02/18 10:46 Order name: EKG - Nurse/Tech; Complete Time: 10:53 ma2 02/18 10:46 Order name: IV Saline Lock; Complete Time: 11:03 ma2 02/18 10:46 Order name: Labs collected and sent; Complete Time: 11:03 ma2 02/18 10:46 Order name: O2 Per Protocol; Complete Time: 10:53 ma2 02/18 10:46 Order name: O2 Sat Monitoring; Complete Time: 10:53 ma2 02/18 14:20 Order name: Diet Heart Healthy; Complete Time: 14:21 iw Administered Medications: 11:41 Drug: Aspirin Chewable Tablet 324 mg Route: PO; ap3 12:30 Follow up: Response: No adverse reaction aa5 12:08 Drug: Lasix (furosemide) 20 mg Route: IVP; Site: left antecubital; ap3 12:20 Follow up: Response: No adverse reaction aa5 Disposition Summary: 02/18/21 12:24 Hospitalization Ordered Hospitalization Status: Observation ma2 Provider: Shad Ahn ma2 Location: Telemetry/MedSurg (observation) ma2 Condition: Stable ma2 Problem: new ma2 Symptoms: are unchanged ma2 Bed/Room Type: Standard [facility] Room Assignment: 212(02/18/21 16:52) eb Diagnosis - Chest pain, unspecified ma2 - Acute diastolic (congestive) heart failure ma2 Forms: - Medication Reconciliation Form ma2 - SBAR form ma2 Signatures: Dispatcher [employer] Araceli Nugent, RN RN aa5 Bakari Webster MD MD ma2 Janet Hernandez RN RN ap3 Oriana Tapia Lynsay RN RN ll1 Corrections: (The following items were deleted from the chart) 16:15 12:24 ma2 aa5 16:15 16:15 423 aa5 aa5 16:52 16:15 aa5 eb
--- NOTE | 2021-02-18 12:24 | ER ---
Nurse's Notes [facility] Name: Srinivasa Hernandez Age: 60 yrs Sex: Male : 1960 Arrival Date: 02/18/2021 Time: 10:32 Bed 5 Private MD: Eduard Friedman Diagnosis: Chest pain, unspecified;Acute diastolic (congestive) heart failure Presentation: 02/18 10:37 Chief complaint: Patient states: R sided CP since last night, constant. Slight cough ll1 for 1 week. No fever. Coronavirus screen: Vaccine status: Patient reports being unvaccinated. Client denies travel out of the [place] in the last 14 days. cough unrelated to allergies, Client presents with at least one sign or symptom that may indicate coronavirus-19. Standard/surgical mask placed on the client. Ebola Screen: Patient denies travel to an Ebola-affected area in the 21 days before illness onset. Initial Sepsis Screen: Does the patient meet any 2 criteria? HR > 90 bpm. No. Patient's initial sepsis screen is negative. Does the patient have a suspected source of infection? Yes: Productive cough/pneumonia. Risk Assessment: Do you want to hurt yourself or someone else? Patient reports no desire to harm self or others. Onset of symptoms was February 17, 2021. 10:37 Method Of Arrival: Ambulatory ll1 10:37 Acuity: MARILUZ 3 ll1 Historical: - Allergies: 10:39 No Known Drug Allergies; ll1 - PMHx: 10:39 Diabetes - IDDM; Hypertension; lifevest in place; Myocardial infarction; ll1 - PSHx: 10:39 defib; triple bypass; ll1 - Immunization history:: Client reports having NOT received the Covid vaccine. Flu vaccine is up to date. - Social history:: Smoking status: Patient reports the use of cigarette tobacco products, smokes one-half pack cigarettes per day, Patient/guardian denies using alcohol, street drugs, The patient lives with family. - Family history:: not pertinent. Screenin:45 Abuse screen: Denies threats or abuse. Nutritional screening: No deficits noted. aa5 Tuberculosis screening: No symptoms or risk factors identified. Fall Risk None identified. Assessment: 10:40 General: Appears comfortable, Behavior is calm, cooperative. Pain: Complains of pain in aa5 anterior aspect of right upper chest Pain does not radiate. Pain currently is 2 out of 10 on a pain scale. Quality of pain is described as aching, Pain began 1 day ago. Is continuous. Neuro: Level of Consciousness is awake, alert, obeys commands, Oriented to person, place, time, situation. Cardiovascular: Heart tones S1 S2 present Rhythm is sinus rhythm. Respiratory: Reports smoker's cough Airway is patent Respiratory effort is even, unlabored, Respiratory pattern is regular, symmetrical, Breath sounds are clear bilaterally. GI: Abdomen is flat, non-distended, Patient currently denies diarrhea, nausea, vomiting. : No signs and/or symptoms were reported regarding the genitourinary system. EENT: No signs and/or symptoms were reported regarding the EENT system. Derm: Skin is pink, warm \T\ dry. Musculoskeletal: Range of motion: intact in all extremities. 11:41 Reassessment: Patient and/or family updated on plan of care and expected duration. Pain ap3 level reassessed. Patient is alert, oriented x 3, equal unlabored respirations, skin warm/dry/pink. 13:00 Reassessment: Dr. Ahn (hospitalist) at bedside . aa5 13:10 Reassessment: Patient is alert, oriented x 3, equal unlabored respirations, skin aa5 warm/dry/pink. 14:00 Reassessment: Patient is alert, oriented x 3, equal unlabored respirations, skin aa5 warm/dry/pink. Pt currently refusing COVID-19 swab needed for appropriate room assignment as explained to pt. supervisor picking crew and charge nurse notified at this time.. 14:15 Reassessment: Pt's came out of pt's room and stated pt is agreeing to covid-19 aa5 swab at this time. COVID-19 swab collected at this time. . 15:30 Reassessment: Patient is alert, oriented x 3, equal unlabored respirations, skin aa5 warm/dry/pink. 16:30 Reassessment: Patient is alert, oriented x 3, equal unlabored respirations, skin aa5 warm/dry/pink. 17:02 Reassessment: Attempted to give report to admitting nurse, nurse currently unavailable, aa5 nurse to call back for report. . 17:10 Reassessment: Patient is alert, oriented x 3, equal unlabored respirations, skin aa5 warm/dry/pink. Pt ate dinner and tolerated well. Awaiting [id number] report to be transported to Room 212, pt notified of wait time. . 17:30 Reassessment: Unsuccessful attempt to call report to admitting nurse. . aa5 18:15 Reassessment: Patient is alert, oriented x 3, equal unlabored respirations, skin aa5 warm/dry/pink. Vital Signs: 10:37 BP 170 / 96; Pulse 93; Resp 18; Temp 97.4; Pulse Ox 99% ; Weight 81.65 kg; Height 5 ft. ll1 9 in. (175.26 cm); Pain 3/10; 11:41 BP 159 / 95; Pulse 83; Resp 17; Pulse Ox 100% on R/A; ap3 13:36 BP 164 / 93; Pulse 78; Resp 21; Pulse Ox 100% on R/A; ap3 14:24 BP 143 / 78; Pulse 80; Resp 18 S; Pulse Ox 98% ; aa5 17:00 BP 155 / 80; Pulse 82; Resp 16 S; Temp 98.0(TE); Pulse Ox 99% on R/A; aa5 10:37 Body Mass Index 26.58 (81.65 kg, 175.26 cm) ll1 ED Course: 10:32 Patient arrived in ED. am2 10:33 Eduard Friedman is Private Physician. am2 10:33 Araceli Ortiz, RN is Primary Nurse. aa5 10:37 Arm band placed on Patient placed in an exam room, on a stretcher. ll1 10:39 Triage completed. ll1 10:40 Patient has correct armband on for positive identification. Bed in low position. Call aa5 light in reach. Side rails up X2. lunchroom monitor on. Pulse ox on. NIBP on. 10:45 Bakari Webster MD is Attending Physician. ma2 10:45 Missed attempt(s): 20 gauge in right antecubital area. aa5 10:50 Initial lab(s) drawn, by me, sent to lab. Inserted saline lock: 22 gauge in left aa5 antecubital area, using aseptic technique. Blood collected. 10:50 No provider procedures requiring assistance completed. Patient maintains SpO2 aa5 saturation greater than 95% on room air. 10:58 XRAY Chest (1 view) In Process Unspecified. EDMS 12:23 Shad Ahn MD is Hospitalizing Provider. ma2 13:49 ultrasound at the bedside. ap3 18:13 Patient admitted, IV remains in place. aa5 Administered Medications: 11:41 Drug: Aspirin Chewable Tablet 324 mg Route: PO; ap3 12:30 Follow up: Response: No adverse reaction aa5 12:08 Drug: Lasix (furosemide) 20 mg Route: IVP; Site: left antecubital; ap3 12:20 Follow up: Response: No adverse reaction aa5 Output: 17:10 Urine: 1000ml (Voided); Total: 1000ml. aa5 Outcome: 12:24 Decision to Hospitalize by Provider. ma2 18:13 Admitted to Tele accompanied by tech, via wheelchair, with chart, Report called to aaBabak Leong RN 18:13 Condition: stable 18:13 Instructed on the need for admit, Demonstrated understanding of instructions. 18:40 Patient left the ED. aa5 Signatures: Dispatcher [employer] EDMS Rachel Carson RN RN iw Araceli Ortiz RN RN aa5 Janet Dobbins Mohammad, MD MD ma2 Janet Hernandez RN RN ap3 Yeimy Santos RN RN ll1 Corrections: (The following items were deleted from the chart) 10:39 10:37 BP 170 / 96; Pulse 83bpm; Resp 18bpm; Pulse Ox 99%; Temp 97.4F; 81.65 kg; Height ll1 5 ft. 9 in.; BMI: 26.5; Pain 3/10; ll1 18:56 18:50 Patient left the ED. iw aa5
[2021-02-18] MEDS ORDERED: FUROSEMIDE 20 MG/ 2ML VIAL ONE (12:31)
--- NOTE | 2021-02-18 13:23 | P.HP ---
Certification for Inpatient Patient admitted to: Observation With expected LOS: <2 Midnights Practitioner: I am a practitioner with admitting privileges, knowledge of patient current condition, hospital course, and medical plan of care. Services: Services provided to patient in accordance with Admission requirements found in Title 42 Section 412.3 of the Code of Federal Regulations Patient History Date of Service: 02/18/21 Reason for admission: Chest pain, shortness of breath History of Present Illness: 60-year-old male, PMH: CAD s/p stents and CABG, DM2 (insulin-dependent), COPD, CHF, hyperlipidemia, CKD 4 Presents to the ED due to chest pain and shortness of breath. States chest pain began yesterday, difficult to describe/characterize it. It is substernal. Nothing seems to aggravate or alleviate the pain. It lasts few minutes at a time. This is a new pain for him. Does not feel similar to when he had prior cardiac events. This occurred while he was watching TV. Shortness of breath has been getting worse over the last week. He states he ran out of his Lasix (takes only as needed). He also noted some increased in his lower extremity swelling during this time as well. In the ED, EKG with no acute ischemic findings, initial troponin negative, chest x-ray consistent with some CHF exacerbation, BNP elevated, patient slightly tachypneic, but not significantly hypoxic. ED physician is asked to admit patient for ACS rule out and diuresis. Allergies No Known Drug Allergies Allergy (Verified 12/24/19 23:03) Unknown Home Medications: Aspirin [Aspir-Low] 81 mg PO DAILY 06/22/18 Atorvastatin Calcium [Lipitor] 80 mg PO DAILY 06/22/18 Clopidogrel Bisulfate [Plavix*] 75 mg PO DAILY 06/22/18 Furosemide 1 tab PO PRN PRN 06/22/18 Insulin Degludec [Tresiba Flextouch U-100] 24 unit SQ DAILY 06/22/18 Isosorbide Mononitrate [Isosorbide Mononitrate ER] 30 mg PO DAILY 06/22/18 Metoprolol Succinate 1 tab PO DAILY 06/22/18 Nitroglycerin [Nitrostat*] 0.4 mg SL PRN PRN 06/22/18 lisinopriL [Lisinopril] 1 tab PO DAILY 03/02/19 Spironolactone 25 mg PO DAILY 12/25/19 Pantoprazole Sodium [Protonix] 40 mg PO DAILY 30 Days #30 tablet. 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 - Family History Mother -: Heart disease, Lung disease - Social History Smoking Status: Current every day smoker (Half a pack a day) Alcohol use: Yes CD- Drugs: No Caffeine use: No Place of Residence: Home Review of Systems 10-point ROS is otherwise unremarkable Physical Examination - Physical Exam General: Alert, Oriented x3, Mild distress HEENT: Mucous membr. moist/pink, Sclerae nonicteric Neck: Supple Respiratory: Diminished (At bases bilaterally) Cardiovascular: Edema (1+ to 2+ bilateral lower extremity edema to knees) Capillary refill: <2 Seconds Gastrointestinal: Soft and benign, Non-distended, No tenderness Integumentary: No rashes, No significant lesion Neurological: Normal speech, Normal strength at 5/5 x4 extr, Normal affect - Studies Laboratory Data (last 24 hrs) 02/18/21 10:50: PT 11.2, INR 0.97 02/18/21 10:50: WBC 6.80, Hgb 12.2 L, Hct 36.3 L, Plt Count 233 02/18/21 10:50: Sodium 140, Potassium 3.8, BUN 22 H, Creatinine 2.32 H, Glucose 239 H, Magnesium 1.7 L, Total Bilirubin 0.4, AST 20, ALT 19, Alkaline Phosphatase 173 H Assessment and Plan - Advance Directives Does patient have a Living Will: No Does patient have a Durable POA for Healthcare: No Physician Review Additional Text: Problem list Chest pain Acute on chronic CHF exacerbation CAD s/p stents, CABG COPD Hyperlipidemia [id number] DM2 CKD4 Patient with significant cardiac history Will bring patient in for observation, trend troponin Cardiology consulted Aspirin, beta-hector, statin Obtain/confirm home medications and restart as appropriate, continue home aspirin/Plavix will diurese with IV Lasix Monitor on telemetry Echocardiogram ordered VTE: Lovenox Code: Full Dispo: Anticipate discharge in ~1 day, pending negative troponins and improvement in breathing Time Spent Managing Pts Care (In Minutes): 60
[2021-02-18] MEDS: FUROSEMIDE 40 MG/4 ML VIAL IV SCH (17:00)
[2021-02-18 19:32] VITALS: BMI 26.6
[2021-02-18] MEDS: INSULIN -REGULAR HUMAN 50 UNIT/0.5 ML ML SQ SCH ×2 (20:20→20:28)
[2021-02-18] MEDS ORDERED: ONDANSETRON 4 MG/2 ML VIAL IV PRN (20:20)
[2021-02-19 05:52] LABS: Absolute Lymphocytes (CBC) 0.8 K/uL (0.7-4.9); Basophils % 0.6 % (0-1.3); Hematocrit 35.9 % (39.6-49.0); Lymphocytes % 14.8 % (15.3-44.8); MPV 8.9 fL (7.6-11.3); RBC Red Blood Cell Count 4.06 M/uL (4.33-5.43)
[2021-02-19 06:07] LABS: Albumin 2.1 g/dL (3.4-5.0); Bilirubin Total 0.3 mg/dL (0.2-1.0); Magnesium 1.7 mg/dL (1.8-2.4); Potassium 3.6 mmol/L (3.5-5.1); Protein, Total 6.6 g/dL (6.4-8.2); Troponin I 0.02 ng/mL (0.0-0.045)
[2021-02-19] MEDS: INSULIN -REGULAR HUMAN 50 UNIT/0.5 ML ML SQ SCH (07:30)
[2021-02-19 08:46] VITALS: O2SAT 96
[2021-02-19] MEDS ORDERED: SPIRONOLACTONE 25 MG TABLET PO SCH (09:00)
[2021-02-19] MEDS ORDERED: MAGNESIUM SULFATE 1 gm IVPB 1 GM/100 ML BAG IV ONE (09:00)
[2021-02-19] MEDS ORDERED: ENOXAPARIN 40 MG/0.4 ML SQ SCH (09:00)
[2021-02-19] MEDS ORDERED: METOPROLOL XL 50 MG TAB PO SCH (09:00)
[2021-02-19] MEDS ORDERED: ATORVASTATIN 80 MG TAB PO SCH (09:00)
[2021-02-19] MEDS ORDERED: POTASSIUM CL SA 10 MEQ TAB PO ONE (09:00)
[2021-02-19] MEDS ORDERED: CLOPIDOGREL 75 MG TABLET PO SCH (09:00)
[2021-02-19] MEDS ORDERED: lisinopriL 5 MG TAB PO SCH (09:00)
[2021-02-19] MEDS ORDERED: ASPIRIN EC 81 MG TAB PO SCH (09:00)
[2021-02-19] MEDS: FUROSEMIDE 40 MG/4 ML VIAL IV SCH (09:35)
[2021-02-19 09:38] VITALS: BP 161/82
[2021-02-19] MEDS ORDERED: SPIRONOLACTONE 25 MG TABLET ONE (09:53)
[2021-02-19] MEDS ORDERED: lisinopriL 5 MG TAB ONE (09:53)
[2021-02-19 10:12] VITALS: TEMP 98.9
--- NOTE | 2021-02-19 14:23 | EKG ---
Test Date: 2021-02-18 Test Time: 10:40:03 Glass Blower: ALP MEASUREMENT RESULTS: Intervals: Rate: 85 WI: 150 QRSD: 108 QT: 380 QTc: 452 [place]: P: 58 WI: 150 QRS: -63 T: 81 INTERPRETIVE STATEMENTS: Normal sinus rhythm Possible Left atrial enlargement Left anterior fascicular block Nonspecific T wave abnormality Abnormal ECG Compared to ECG 08/26/2020 11:15:53 Left anterior fascicular block now present T-wave abnormality now present Left-axis deviation no longer present ST (T wave) deviation no longer present Possible ischemia no longer present Electronically Signed On 02-19-21 14:21:45 CDT by Gurdeep Whitaker
--- NOTE | 2021-02-19 15:55 | P.DS ---
Admission Date: 02/18/21 Discharge Date: 02/19/21 Disposition: ROUTINE DISCHARGE Discharge Condition: GOOD Reason for Admission: Chest pain, shortness of breath Procedures: CXR (02/18): FINDINGS: Lines: Pacemaker. Lungs: Mild pulmonary edema. Pleural: Left pleural effusion. Cardiac: Mild cardiomegaly. Bones: No acute fractures. Sternotomy. Chronic deformity of the right chest wall. Other: IMPRESSION: Left pleural effusion likely secondary to pulmonary edema. Pneumonia at the left lung base difficult to entirely exclude, however. Problem list Chest pain Acute on chronic CHF exacerbation (systolic CHF, last known EF: 35-39%) CAD s/p stents, CABG COPD, chronic Hyperlipidemia Lox-gygviep-awxdnnrsz DM2 CKD4 Brief History of Present Illness: 60-year-old male, PMH: CAD s/p stents and CABG, DM2 (insulin-dependent), COPD, CHF, hyperlipidemia, CKD 4 Presents to the ED due to chest pain and shortness of breath. States chest pain began yesterday, difficult to describe/characterize it. It is substernal. Nothing seems to aggravate or alleviate the pain. It lasts few minutes at a time. This is a new pain for him. Does not feel similar to when he had prior cardiac events. This occurred while he was watching TV. Shortness of breath has been getting worse over the last week. He states he ran out of his Lasix (takes only as needed). He also noted some increased in his lower extremity swelling during this time as well. In the ED, EKG with no acute ischemic findings, initial troponin negative, chest x-ray consistent with some CHF exacerbation, BNP elevated, patient slightly tachypneic, but not significantly hypoxic. ED physician is asked to admit patient for ACS rule out and diuresis. Hospital Course: Patient was found to have acute on chronic systolic CHF exacerbation. EKG and troponins remained negative/no signs of acute ischemia. Case was discussed with cardiology. Patient was effectively ruled out for ACS, and had improvement of his breathing with diuresis. He did not require oxygen supplementation. Suspect his exacerbation occurred due to running out of Lasix at home over the last week. Patient was discharged home to resume his home medications as previously prescribed. He was sent with a refill for his Lasix and he is to continue taking this daily until he follows up with cardiology. An echocardiogram was obtained prior to discharge. He will follow up with cardiology to review the results in the next few days. Vital Signs/Physical Exam: Physical Exam General: Alert, Oriented x3, NAD HEENT: Mucous membr. moist/pink, Sclerae nonicteric Respiratory: Diminished at bases bilaterally, mild crackles at bases. nonlabored on room air Cardiovascular: Edema 1+ b/l lower extremity edema to knees Gastrointestinal: Soft and benign, Non-distended, No tenderness Integumentary: No rashes, No significant lesion Neurological: Normal speech, Normal strength at 5/5 x4 extr, Normal affect Temp Pulse Resp BP Pulse Ox 98.9 F 88 23 H 161/82 H 97 02/19/21 08:00 02/19/21 09:38 02/19/21 08:00 02/19/21 09:38 02/19/21 08:00 Laboratory Data at Discharge: WBC 5.50 K/uL (4.3-10.9) D 02/19/21 05:07 Hgb 12.1 g/dL (13.6-17.9) L 02/19/21 05:07 Hct 35.9 % (39.6-49.0) L 02/19/21 05:07 Plt Count 230 K/uL (152-406) 02/19/21 05:07 PT 11.2 SECONDS (9.5-12.5) 02/18/21 10:50 INR 0.97 02/18/21 10:50 Sodium 142 mmol/L (136-145) 02/19/21 05:07 Potassium 3.6 mmol/L (3.5-5.1) 02/19/21 05:07 BUN 22 mg/dL (7-18) H 02/19/21 05:07 Creatinine 2.18 mg/dL (0.55-1.3) H 02/19/21 05:07 Glucose 181 mg/dL (74-106) H 02/19/21 05:07 Magnesium 1.7 mg/dL (1.8-2.4) L 02/19/21 05:07 Total Bilirubin 0.3 mg/dL (0.2-1.0) 02/19/21 05:07 AST 18 U/L (15-37) 02/19/21 05:07 ALT 15 U/L (12-78) 02/19/21 05:07 Alkaline Phosphatase 134 U/L (45-117) H 02/19/21 05:07 Troponin I 0.02 ng/mL (0.0-0.045) 02/19/21 05:07 Triglycerides 105 mg/dL (<150) 02/19/21 05:07 Cholesterol 128 mg/dL (<200) 02/19/21 05:07 HDL Cholesterol 42 mg/dL (40-60) 02/19/21 05:07 Cholesterol/HDL Ratio 3.05 02/19/21 05:07 Home Medications: Aspirin [Aspir-Low] 81 mg PO DAILY 06/22/18 Atorvastatin Calcium [Lipitor] 80 mg PO DAILY 06/22/18 Clopidogrel Bisulfate [Plavix*] 75 mg PO DAILY 06/22/18 Insulin Degludec [Tresiba Flextouch U-100] 24 unit SQ DAILY 06/22/18 Metoprolol Succinate 1 tab PO DAILY 06/22/18 Nitroglycerin [Nitrostat*] 0.4 mg SL PRN PRN 06/22/18 lisinopriL [Lisinopril] 1 tab PO DAILY 06/22/18 Spironolactone 25 mg PO DAILY 12/25/19 Pantoprazole Sodium [Protonix] 40 mg PO DAILY 30 Days #30 tablet. 12/27/19 Furosemide 1 tab PO PRN PRN 30 Days #30 tab 02/19/21 New Medications: Furosemide 1 tab PO PRN PRN 30 Days #30 tab PRN Reason: Edema Physician Discharge Instructions: You were found to have volume overload consistent with a mild CHF exacerbation. You improved with IV lasix, and recommend continuing to take lasix at home. A refill of your prescription has been sent. Your chest pain was evaluated by EKG and troponin (cardiac enzymes), which did not show any signs of heart damage / acute ischemia. Follow up with Dr. Whitaker in the next week. Call his office Sunday. Diet: ADA Activity: Ad jazmin Followup: Eduard Friedman PA [Primary Care Provider] - Gurdeep Whitaker MD [ACTIVE - CAN ADMIT] - Time spent managing pt's care (in minutes): 45
--- NOTE | 2021-02-21 07:14 | ECHO ---
HEIGHT: 5 ft 9 in WEIGHT: 180 lb 0 oz DATE OF STUDY: 02/18/[address]: Shad Ahn MD 2-DIMENSIONAL: YES M.MODE: YES DOPPLER: YES COLOR FLOW: YES TDS: PORTABLE: DEFINITY: BUBBLE STUDY: DIAGNOSIS: CHEST PAIN/ CONGESTIVE HEART FAILURE CARDIAC HISTORY: CATHERIZATION: SURGERY: PROSTHETIC VALVE: PACEMAKER: MEASUREMENTS (cm) DIASTOLIC (NORMALS) SYSTOLIC (NORMALS) IVSd 0.9 (0.6-1.2) LA Diam 4.1 (1.9-4.0) LVEF 29% LVIDd 5.2 (3.5-5.7) LVIDs 4.5 (2.0-3.5) %FS 14% LVPWd 0.9 (0.6-1.2) Ao Diam 2.9 (2.0-3.7) 2 DIMENSIONAL ASSESSMENT: RIGHT ATRIUM: NORMAL LEFT ATRIUM: DILATED RIGHT VENTRICLE: NORMAL LEFT VENTRICLE: NORMAL SIZE TRICUSPID VALVE: NORMAL MITRAL VALVE: NORMAL PULMONIC VALVE: NORMAL AORTIC VALVE: NORMAL PERICARDIAL EFFUSION: NONE AORTIC ROOT: NORMAL LEFT VENTRICULAR WALL MOTION: SEVERE GLOBAL HYPOKINESIS DOPPLER/COLOR FLOW: MILD TRICUSPID REGURGITATION. MILD PULMONARY HYPERTENSION COMMENTS: SEVERE GLOBAL HYPOKINESIS - EJECTION FRACTION 25-30%. MILD TRICUSPID REGURGITATION. MILD PULMONARY HYPERTENSION. RIGHT VENTRICULAR SYSTOLIC PRESSURE 43 mmHg. LEFT ATRIAL ENLARGEMENT. TECHNOLOGIST: DESHAWN WELLS
--- OUTSIDE RECORDS SUMMARY | 2021-03-04 18:48 | XMS REPORT | Continuity of Care Document ---
:1960 Author Organization [facility] t Address [address] [place] [address] Care Team Providers Name Role Phone ORIANA ALBRECHT Primary Care Physician Unavailable SARIKA Attending Clinician Unavailable Sarika LOPEZ Attending Clinician Shell LOPEZ Attending Clinician Kathy LOPEZ Attending Clinician Sravan Albrecht MD Attending Clinician Doctor Unassigned, Name Attending Clinician Unavailable Payers Payer Name Policy Type Policy Number Effective Date Expiration Date Elana blancalata SYEDA/ODILON [id number] 2021 MEDICARE ADVANTAGE 00:00:00 Problems Condition Condition Condition Status Onset Resolution Last Treating Co mments Source Name Details Category Date Date Treatment Clinician Date HFrEF HFrEF Disease Active 2020-04 Univers (heart (heart 1-09 ity of failure failure 00:00: [place] with with 00 Medical reduced reduced Branch ejection ejection fraction) fraction) Dyspnea Dyspnea Disease Active Univers 4-03 ity of 00:00: [place] 00 Medical Branch CASPER CASPER Disease Active Univers (dyspnea (dyspnea 1-19 ity of on on 00:00: [place] exertion) exertion) 00 Medi billy Branch Type 2 Type 2 Disease Active Univers diabetes diabetes 9-13 ity of mellitus mellitus 00:00: [place] without without 00 Medical complicati complicati Br anch on, on, without without long-term long-term current current use of use of insulin insulin KENYA (acute KENYA (acute Disease Active U nivers kidney kidney 5-16 ity of injury) injury) 00:00: [place] 00 Medical Branch S/P ICD S/P ICD Disease Active Univers (internal (internal 4-18 ity of cardiac cardiac 00:00: [place] defibrilla defibrilla 00 Me dical tor) tor) Branch procedure procedure NSTEMI NSTEMI Disease Active Univers (non-ST (non-ST 8-22 ity of elevated elevated 00:00: [place] myocardial myocardial 00 Me dical infarction infarction Br anch ) ) Hyperglyce Hyperglyce Disease Active U nivers suzanna suzanna 8-22 ity of 00:00: [place] 00 Medical Branch Chest pain Chest pain Disease Active U nivers 8-21 ity of 00:00: [place] 00 Medical Branch Coronary Coronary Disease Active Unive rs artery artery 8-02 ity of disease disease 00:00: [place] involving involving 00 Medi billy twenty-nine palms twenty-nine palms 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 ICD10 Diagnosis Term Stemmer Machine Utility Acute on Acute on Disease Active Overview: Un soraya chronic chronic 2-23 Formattin ity o f combined combined 00:00: g of this [place] as systolic systolic 00 note Medica l and and might be Branch diastolic diastolic different congestive congestive from the heart heart original. failure failure ICD10 Diagnosis Term [employer] Utility Hypothyroi Hypothyroi Disease Active U nivers dism dism 2-23 ity of 00:00: [place] 00 Medical Branch Myocardial Myocardial Disease Active Overview : Univers infarction infarction 2-23 Formattin ity of 00:00: g of this [place] 00 note Medical might be Branch different from the original. Indigesti on -STEMI 10/04. S/p PCI ? vessel Smoking Smoking Disease Active Univers 1/2 pack a 1/2 pack a 2-23 it y of day or day or 00:00: [place] less less 00 Medical Branch Ischemic Ischemic Disease Active Overview: Un soraya cardiomyop cardiomyop 2-23 Formattin ity of athy athy 00:00: g of this [place] 00 note Medical might be Branch different from the original. EF 20% per pt 10/04 Thyroid Thyroid Disease Active Univers disease disease ity of [facility] Allergies, Adverse Reactions, Alerts Allergy Allergy Status Severity Reaction(s) Onset Inactive Treating Comm ents Source Name Type Date Date Clinician NO KNOWN Drug Active Univers ALLERGIE Class ity of S [facility] Social History Social Habit Start Date Stop Date Quantity Comments Source Exposure to Not sure University of SARS-CoV-2 [place] Medical (event) Branch History SDOH University o f Alcohol Frequency [place] M edical Branch History SDVA University o f Alcohol Std [place] Medical Drinks Branch History SDVA University o f Alcohol Binge [place] Medic al Branch Alcohol intake 2021-03-01 2021-03-01 0 /d University of 00:00:00 00:00:00 [facility] Alcohol Comment 2015-12-10 2015-12-10 once a month Univers ity of 00:00:00 00:00:00 [facility] History of 2015-04-23 Cigarette Smoker Universi ty of tobacco use 00:00:00 [facility] Sex Ass[birth year] At [birth year] Universit y of 00:00:00 00:00:00 [facility] Smoking Status Start Date Stop Date Source Former smoker 2018-10-30 00:00:00 2018-10-30 00:00:00 [facility] Medications Ordered Filled Start Stop Current Ordering Indication Dosage Frequency Signature Comments Components Source Medication Medication Date Date Medication? Clinician (SIG) Name Name pantoprazol 2020-04 Yes 40mg Take 40 mg Univers e 40 mg EC 05-01 by mouth ity o f tablet 09:07: daily. [place] 06 [facility] Branch acetaminoph 2020-04 Yes 500mg Take 500 U nivers en (TYLENOL 1-09 mg by ity of EXTRA 09:04: mouth [place] STRENGTH) 16 every 6 Medical 500 mg (six) Branch tablet hours as needed for Pain. metoprolol 2020-04 Yes [id number] 50mg Take 1 U nivers succinate 1-09 tablet by ity o f XL 50 mg 24 00:00: mouth [place] hr tablet 00 daily. Medical TAKE 1 Branch TABLET BY MOUTH ONCE DAILY Insulin Yes [id number] USE Uni vers [place], 7-28 DIRECTED ity of Disposable, 00:00: WITH [place] (BD INSULIN 00 KWIKPEN Medic al PEN NEEDLE ONCE A Branch UF) 29 DAY gauge x 1/2" Ndle TRESIBA Yes [id number] INJECT 24 Univers FLEXTOUCH 2-13 UNITS ity of U-100 100 00:00: UNDER THE [place] as unit/mL (3 00 SKIN AT Medic al mL) InPn BEDTIME Branch glipiZIDE Yes [id number] 20mg Take 2 U nivers XL 10 mg 24 -09 tablets by it y of hr tablet 00:00: mouth [place] 00 daily with Medical breakfast. Branch isosorbide 2020- No [id number] 30mg Take 1 Univers mononitrate 05-24 9100 tablet by it y of 30 mg 24 hr 00:00: 00:00 mouth [place] tablet 00 :00 daily. Medical Branch metoprolol 2020- No [id number] TAKE 1 Univers succinate 05-24 TABLET BY ity of XL 50 mg 24 00:00: 00:00 MOUTH ONCE [place] hr tablet 00 :00 DAILY Medical Branch lisinopril 2020- No [id number] 10mg Take 2 Univers 5 mg tablet 05-24 tablets by i ty of 00:00: 00:00 mouth [place] 00 :00 daily. Medical Branch furosemide Yes [id number] 20mg Take 0.5 Univers 40 mg 1-29 tablets by ity of tablet 00:00: mouth [place] 00 daily. Medical Branch spironolact Yes [id number] 25mg Take 1 Univers one 25 mg 1-06 9100 tablet by ity o f tablet 00:00: mouth [place] 00 daily. Medical Branch clopidogrel 2018-04 Yes [id number] TAKE 1 Univers 75 mg 0-29 9100 TABLET BY ity of tablet 00:00: MOUTH ONCE [place] 00 DAILY Medical Branch atorvastati 2018- Yes [id number] TAKE 1 Univers n 80 mg 0-24 9100 TABLET BY ity of tablet 00:00: MOUTH ONCE [place] 00 DAILY Medical Branch metFORMIN 2018- Yes [id number] TAKE ONE Univers 1,000 mg 0-03 TABLET BY ity of tablet 00:00: MOUTH ONCE [place] 00 DAILY WITH Medical BREAKFAST Branch allopurinol Yes [id number] 100mg Take 1 Univers 100 mg 4- 9109 tablet by ity of tablet 00:00: mouth [place] 00 daily. Medical Branch ACCU-CHEK Yes Use as Univer s MASON strip 3-14 directed, ity of 00:00: TID, [place] 00 DX:E11.9 Medical Branch Insulin 2018- Yes [id number] Inject Uni vers Syringe-Nee 2-27 insulin 2 ity of dle U-100 00:00: times a [place] 0.5 mL day. Dx Medical gauge x code Branch 09/05 Syrg E11.9. lancets Yes Use TID, Univer s (FREESTYLE 2-27 DX E11.9 ity o f LANCETS) 28 00:00: ([facility] upon Medical insurance Branch approval) lancets-blo Yes 1{each} 1 Each 3 Univers od glucose 2-27 (three) ity of strips 30 00:00: times [place] gauge Cmpk 00 daily. Use Med ical TID, DX Branch E11.9 (Brand upon insurance approval) Patient request Verio flex one touch. ipratropium 2017-04 Yes [id number] 2{spray Use 2 Univers 0.03 % 1-29 } Sprays in ity of nasal spray 00:00: each [place] 00 nostril 3 Medical (three) Branch times daily. nitroglycer 2017-[id number] 1 Univers in 1-29 tablet ity of (NITROSTAT) 00:00: under the [place] 0.4 mg 00 tongue Medical sublingual every 5 Branc h tablet (five) minutes as needed for Chest pain. Insulin Yes Use as Univers [place], 5-18 directed ity of Disposable, 00:00: [place] 30 gauge x 00 Medical 09/05" Ndle Branch Blood-Gluco 2016-04 Yes [id number] Use TID, Univers se Meter 2-08 DX E11.9 ity of Kit 00:00: (Brand [place] 00 upon Medical insurance Branch approval) aspirin 81 Yes 81mg Take 1 Unive rs mg chewable 8-26 tablet by ity of tablet 00:00: mouth [place] 00 daily. Medical Branch Immunizations Ordered Filled Immunization Date Status Comments [facility] e Immunization Name Name TDAP 2020-01-09 Completed University of 00:00:00 [facility] Influenza Virus 2020-01-09 Completed Universit y of Vaccine Recomb Quad 00:00:00 [facility] IM, Preserv and ABX Branc h Free 18-64 YRS Influenza Virus 2018-01-24 Completed Universit y of Vaccine 00:00:00 [facility] Pneumococcal 2018-01-24 Completed University o f Polysaccharide, 00:00:00 [place] Med ical PPSV23 (PNEUMOVAX) Branch Influenza Virus 2018-01-24 Completed Universit y of Vaccine Quad .5 mL 00:00:00 [place] Medical IM 6+ MO Branch Influenza Virus 2017-02-12 Completed Universit y of Vaccine Quad IM 3+ 00:00:00 [facility] Influ[facility] Virus 2016-02-03 Completed Universit y of Vaccine Quad IM 3+ 00:00:00 [facility] Pneumococcal 2016-02-03 Completed University o f Polysaccharide, 00:00:00 [place] Med ical PPSV23 (PNEUMOVAX) [place] Vital Signs Vital Name Observation Time Observation Value Comments Source Systolic blood 2021-03-01 15:08:00 152 mm[Hg] [facility] Diastolic blood 2021-03-01 15:08:00 90 mm[Hg] [facility] Heart rate 2021-03-01 15:00:00 82 /min [facility] Body height 2021-03-01 15:00:00 175.3 cm [facility] Body weight 2021-03-01 15:00:00 86.183 kg [facility] BMI 2021-03-01 15:00:00 28.06 kg/m2 [facility] Oxygen saturation 2021-03-01 15:00:00 99 /min [facility] in Arterial blood [facility] Br anch by Pulse oximetry Procedures This patient has no known procedures. Encounters Start End Encounter Admission Attending Care Care Encounter Source Date/Time Date/Time Type Type Clinicians Facility Department ID 2021-03-07 2021-03-07 Outpatient Jacinta BAUM [facility] [id number] -[id number] [facility] 09:00:00 09:00:00 ANDREA [id number] ity o f [facility] 2021-03-07 2021-03-07 Outpatient Jacinta BAUM [facility] [id number] Univers 09:00:00 09:00:00 ANDREA harding o jyoti [facility] 2021-03-01 2021-03-01 Outpatient R SARIKA, [facility] [id number] Univers 09:00:00 09:30:40 ANDREA montes [facility] 2021-03-01 2021-03-01 [facility] [id number] Univers 08:55:17 09:30:40 Visit Andrea HONG [id number] ity [facility] [id number] Alba VIVAS [phone] Tn dical [address] 2020-04-26 2020-04-26 [facility] Eben Cantu [id number] 10:15:00 23:59:00 Encounter Lawrence scherer Shikha [id number] [facility] [id number] 2020-01-19 2020-01-19 Hospital Kathy Alondra [id number] 11:45:00 23:59:00 Encounter Nnamdijyoti Quintero [id number] [facility] [id number] 2020-01-13 2020-01-13 Telephone [facility] [id number] 00:00:00 00:00:00 Oriana Hong [id number] [place] [id number] Professio [id number] [address] 2020-01-09 2020-01-09 Telephone [facility] [id number] 00:00:00 00:00:00 Oriana Hong [id number] [place] [id number] Professio [id number] [address] 2020-01-09 2020-01-09 Orders Doctor TUCKER [id number] 00:00:00 00:00:00 Only Unassigned, SHIKHA [id number] [facility] [id number] 2019-11-18 2019-11-18 Refill Albrecht, [facility] [id number] 00:00:00 00:00:00 Oriana Hong [id number] [place] [id number] Professio [id number] [address] 2019-06-30 2019-06-30 Orders Doctor GARRETT [id number] 00:00:00 00:00:00 Only Unassigned, SHIKHA [id number] [facility] [id number] 2019 2019 [facility] [id number] 00:00:00 00:00:00 Oriana Hong [id number] [place] [id number] Professio [id number] [address] 2019-06-11 2019-06-11 Orders Doctor GARRETT [id number] 00:00:00 00:00:00 Only Unassigned, SHIKHA [id number] [facility] [id number] 2019-01-16 2019-01-16 Outpatient E [facility] [id number] 11:09:00 11:09:00 [facility] l Results This patient has no known results.
== END 2021-02-19 10:54 | disposition home or self-care (01) ==
LOC: ER 10:29 → ERHOLD 13:12 → 2ND 18:15
PROVIDERS: ADMIT Hospitalist; ATTEND Hospitalist
DX: I13.0 Hypertensive heart and chronic kidney disease with heart failure and stage 1 through stage 4 chronic kidney disease, or unspecified chronic kidney disease (principal); I50.23 Acute on chronic systolic (congestive) heart failure; N18.4 Chronic kidney disease, stage 4 (severe); E11.22 Type 2 diabetes mellitus with diabetic chronic kidney disease; I25.10 Atherosclerotic heart disease of native coronary artery without angina pectoris; J44.9 Chronic obstructive pulmonary disease, unspecified; E78.5 Hyperlipidemia, unspecified; I25.2 Old myocardial infarction; M10.9 Gout, unspecified; F17.210 Nicotine dependence, cigarettes, uncomplicated; Z95.810 Presence of automatic (implantable) cardiac defibrillator; Z95.1 Presence of aortocoronary bypass graft; Z95.5 Presence of coronary angioplasty implant and graft; Z79.02 Long term (current) use of antithrombotics/antiplatelets; Z79.82 Long term (current) use of aspirin; Z79.4 Long term (current) use of insulin; Z79.899 Other long term (current) drug therapy; Z20.822 Contact with and (suspected) exposure to COVID-19; Z82.49 Family history of ischemic heart disease and other diseases of the circulatory system
CPT/HCPCS: 93005; 93306; 85025 ×2; 80048; 36415; 83735 ×2; 85610; 80061; 82947 ×2; 80076; 84484 ×3; 80053; 83880; 71045; 94760 ×2; 96374; 99285; U0003; J1940 ×2; J1650; J3475; G0378 ×3

== ENCOUNTER 2022-04-24 16:42 | Inpatient (IN) | payer OTHER ==
--- OUTSIDE RECORDS SUMMARY | 2022-04-24 16:51 | XMS REPORT | Continuity of Care Document ---
:1960 Author Organization [facility] t Address [address] [place] [address] Care Team Providers Name Role Phone Nancy Rodriguez MD Primary Care Physician Nancy Rodriguez Attending Clinician Unavailable Andrea Baum MD Attending Clinician Doctor Unassigned, [place] Attending Clinician Unavailable Brenda Rhoades MD Attending Clinician ANDREA BAUM Attending Clinician Unavailable SALVATORE POLANCO Attending Clinician Unavailable Salvatore Polanco MD Attending Clinician BRENDA RHOADES Attending Clinician Unavailable BRENDA RHOADES Attending Clinician Unavailable Oriana Albrecht MD Attending Clinician [phone] 1, [facility] Bed Attending Clinician Unavailable Only, [facility] Test Attending Clinician Unavailable Prasanth Orellana MD Attending Clinician PRASANTH ORELLANA Attending Clinician Unavailable Tech, [facility] Attending Clinician Unavailable Maxx MORGAN, Yvonne Ochoa Attending Clinician Unavailable Enio Gross MD Attending Clinician Nir Verdugo MD Attending Clinician Francisca Goff MD Attending Clinician [phone] Marnie, Remote Device Check At Home - Attending Clinician Unava ilFRANCISCA Frankel Attending Clinician Unavailable Visit, [facility] Nurse Attending Clinician Unavailable Venancio LOPEZ, Lucia Bravo Attending Clinician Tech, [facility] Cardio Fac Attending Clinician Unavailable 1, [facility] Card[facility] Room Attending Clinician Unavailable SALVATORE POLANCO Admitting Clinician Unavailable Nir Verdugo MD Admitting Clinician ANDREA BAUM Admitting Clinician Unavailable Payers Payer Name Policy Type Policy Number Effective Date Expiration Date [facility]/AARP [id number] 2021 2021 MEDICARE 00:00:00 00:00:00 ADVANTAGE AARP MEDICARE 53 [id number] 2021 Common Spir it ADVANTAGE 00:00:00 - [facility] Problems Condition Condition Condition Status Onset Resolution Last Treating Co mments Source Name Details Category Date Date Treatment Clinician Date Troponin I Troponin I Disease Active 2020-04 U nivers above above 1-18 [place] 00 [place] Acute Acute Disease Active 2020-04 Univers right-side right-side 1-17 it y of d CHF d CHF 00:00: [place] (congestiv (congestiv 00 Me dical e heart e heart Branch failure) failure) HFrEF HFrEF Disease Active 2020-04 Univers (heart [...] disease disease 00:00: [place] involving involving 00 [facility] cahto cahto 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 failure failure ICD10 Diagnosis Term Counter Professional Utility Hypothyroi Hypothyroi Disease Active U nivers [...] y of day or day or 00:00: [facility] Medical Branch Ischemic Ischemic Disease Active Overview: Un [place] cardiomyop cardiomyop 2-23 Formattin ity of alvarado childers 00:00: g of this note Medical might be Branch different from the original. EF 20% per pt 10/04 [id number] Coronary Problem Comm on artery Spirit disease - [facility] involving [facility] coronary Medical artery of Center cahto heart without angina pectoris [id number] Anemia of Problem Com mon chronic Spirit disease - [facility] [id number] GERD Problem Common without Spirit esophagiti - [facility] s [facility] [id number] assisted Problem Com mon (current) Spirit use of - [facility] insulin [facility] [id number] Chronic Problem Commo n kidney Spirit disease, - [facility] stage 3b [facility] [id number] Mixed Problem Common hyperlipid Spirit emia - [facility] [id number] Cardiac Problem Commo n defibrilla Spirit tor in - [facility] [id number] Hypertensi Problem Com mon ve heart Spirit disease - [facility] with heart failure [facility] [id number] Type 2 Problem Common diabetes Spirit mellitus - [facility] without St complicati [facility] [id number] Type 2 [place] [id number] diabetes Spirit mellitus - [facility] with other diabetic [facility] kidney Medical complicati Center on [id number] Diabetes Problem Common mellitus Spirit due to - [facility] underlying [facility] with Medical diabetic Center chronic kidney disease Tobacco Smokes 1/2 Problem Comm on user pack per Spirit day - [facility] Thyroid Thyroid Disease Active Univers disease [facility] [place] [facility] Allergies, Adverse Reactions, Alerts Allergy Allergy Status Severity Reaction(s) Onset Inactive Treating Comm ents Source Name Type Date Date Clinician NO KNOWN Drug Active Univers ALLERGIE Class [facility] [place] [facility] Social History Social Habit Start Date Stop Date Quantity Comments Source History of Tobacco Current Smoker Co mmon Spirit - Use [facility] Sex Assigned At Common Sp yuliet - [facility] Exposure to Not sure University of SARS-CoV-2 (event) [place] [facility] History SDOH University o f Alcohol Frequency [place] M edical Branch History SDOH University o f Alcohol Std Drinks [place] [facility] [place] History SDOH University o f Alcohol Binge [facility] al Branch Alcohol intake 2021-03-01 2021-03-01 0 /d University of 00:00:00 00:00:00 [facility] Alcohol Comment 2015-12-10 2015-12-10 once a month Univers ity of 00:00:00 00:00:00 [facility] Cigarettes smoked 2015-12-10 2015-12-10 Univers ity of current (pack per 00:00:00 00:00:00 [facility] ) - Reported Branch Cigarette 2015-12-10 2015-12-10 University of pack-years 00:00:00 00:00:00 [facility] Tobacco use and 2015-12-10 2015-12-10 Smokeless Universit y of exposure 00:00:00 00:00:00 tobacco non-user [facility] Smoking Status Start Date Stop Date Source Current Smoker 2022-03-29 00:00:00 Common [facility] t - [facility] Ex-smoker 2015-12-10 00:00:00 2015-12-10 00:00:00 Universi [facility] Medications Ordered Filled Start Stop Current Ordering Indication Dosage Frequency Signature Comments Components Source Medication Medication Date Date Medication? Clinician (SIG) Name Name metoprolol 2022-0 Yes [id number] 50mg Take 1 U nivers succinate 1-02 tablet by ity o f XL 50 mg 24 00:00: [place] tablet 00 the Medical morning. Branch TAKE 1 TABLET BY MOUTH ONCE DAILY Lisinopril Lisinopril 2020-04 No 1{table QD Lisinopril 5 MG 5 MG 2-06 t} 5 MG 00:00: 00 Glimepiride Glimepiride 2020-04 No 1{table QD Glimepirid 1 MG 1 MG 2-06 t_with_ e 1 MG 00:00: break 00 st_or_t he_firs t_main_ meal_of _the_da y} Lisinopril Lisinopril 2020-04 No 1{table QD Lisinopril 5 MG 5 MG 2-06 t} 5 MG 00:00: 00 Glimepiride Glimepiride 2020-04 No 1{table QD Glimepirid 1 MG 1 MG 2-06 t_with_ e 1 MG 00:00: break 00 st_or_t he_firs t_main_ meal_of _the_da y} Glimepiride Glimepiride 2020- No 1{table QD Glimepirid 1 MG 1 MG 2-06 t_with_ e 1 MG 00:00: st_or_t he_firs t_main_ meal_of _the_da y} Lisinopril Lisinopril 2020- No 1{table QD Lisinopril 5 MG 5 MG 2-06 t} 5 MG 00:00: 00 Glimepiride Glimepiride 2020- No 1{table QD Glimepirid 1 MG 1 MG 2-06 t_with_ e 1 MG 00:00: st_or_t he_firs t_main_ meal_of _the_da y} Lisinopril Lisinopril 2020- No 1{table QD Lisinopril 5 MG 5 MG 2-06 t} 5 MG 00:00: 00 Lisinopril Lisinopril 2020- No 1{table QD Lisinopril 5 MG 5 MG 2-06 t} 5 MG 00:00: 00 Glimepiride Glimepiride 2020- No 1{table QD Glimepirid 1 MG 1 MG 2-06 t_with_ e 1 MG 00:00: st_or_t he_firs t_main_ meal_of _the_da y} Lisinopril Lisinopril 2020- No 1{table QD Lisinopril 5 MG 5 MG 2-06 t} 5 MG 00:00: 00 Glimepiride Glimepiride 2020- No 1{table QD Glimepirid 1 MG 1 MG 2-06 t_with_ e 1 MG 00:00: st_or_t he_firs t_main_ meal_of _the_da y} Lisinopril Lisinopril 2020- No 1{table QD Lisinopril 5 MG 5 MG 2-06 t} 5 MG 00:00: 00 Glimepiride Glimepiride 2020- No 1{table QD Glimepirid 1 MG 1 MG 2-06 t_with_ e 1 MG 00:00: st_or_t he_firs t_main_ meal_of _the_da y} Glimepiride Glimepiride 2020-04 No 1{table QD Glimepirid 1 MG 1 MG 2-06 t_with_ e 1 MG 00:00: st_or_t he_firs t_main_ meal_of _the_da y} Lisinopril Lisinopril 2020-04 No 1{table QD Lisinopril 5 MG 5 MG 2-06 t} 5 MG 00:00: 00 Glimepiride Glimepiride 2020-04 No 1{table QD Glimepirid 1 MG 1 MG 2-06 t_with_ e 1 MG 00:00: st_or_t he_firs t_main_ meal_of _the_da y} Lisinopril Lisinopril 2020-04 No 1{table QD Lisinopril 5 MG 5 MG 2-06 t} 5 MG 00:00: 00 magnesium 2020-04 Yes [id number] 400mg Take 400 Univers oxide 420 1-20 9100 mg by ity of mg Tab 00:00: mouth [place] 00 daily. Medical Branch magnesium 2020-04 Yes [id number] 400mg Take 400 Univers oxide 420 1-20 9100 mg by ity of mg Tab 00:00: mouth [place] 00 daily. Medical Branch magnesium 2020- Yes [id number] 400mg Take 400 Univers oxide 420 1-20 9100 mg by ity of mg Tab 00:00: mouth [place] 00 daily. Medical Branch magnesium 2020-04 Yes [id number] 400mg Take 400 Univers oxide 420 1-20 9100 mg by ity of mg Tab 00:00: mouth [place] 00 daily. Medical Branch magnesium 2020- Yes [id number] 400mg Take 400 Univers oxide 420 1-20 9100 mg by ity of mg Tab 00:00: mouth [place] 00 daily. Medical Branch magnesium 2020-04 Yes [id number] 400mg Take 400 Univers oxide 420 1-20 9100 mg by ity of mg Tab 00:00: mouth [place] 00 daily. Medical Branch magnesium 2020- Yes [id number] 400mg Take 400 Univers oxide 420 1-20 9100 mg by ity of mg Tab 00:00: mouth [place] 00 daily. Medical Branch magnesium 2020-04 Yes [id number] 400mg Take 400 Univers oxide 420 1-20 9100 mg by ity of mg Tab 00:00: mouth [place] 00 daily. Medical Branch magnesium 2020-04 Yes [id number] 400mg Take 400 Univers oxide 420 1-20 9100 mg by ity of mg Tab 00:00: mouth [place] 00 daily. Medical Branch magnesium 2020-04 Yes [id number] 400mg Take 400 Univers oxide 420 1-20 9100 mg by ity of mg Tab 00:00: mouth [place] 00 daily. Medical Branch acetaminoph 2020-04 Yes 500mg Take 500 U nivers en (TYLENOL 1-19 mg by ity of EXTRA 13:10: mouth [place] STRENGTH) 17 every 6 Medical 500 mg (six) Branch tablet hours as needed for Pain. pantoprazol 2020-04 Yes 40mg Take 40 mg Univers e 40 mg EC 1-19 by mouth ity o f tablet 13:10: daily. [place] [address] Medical Branch acetaminoph 2020-04 Yes 500mg Take 500 U nivers en (TYLENOL 1-19 mg by ity of EXTRA 13:10: mouth [place] STRENGTH) 17 every 6 Medical 500 mg (six) Branch tablet hours as needed for Pain. pantoprazol 2020-04 Yes 40mg Take 40 mg Univers e 40 mg EC 1-19 by mouth ity o f tablet 13:10: daily. [address] Branch acetaminoph 2020-04 Yes 500mg Take 500 U nivers en (TYLENOL 1-19 mg by ity of EXTRA 13:10: mouth [place] STRENGTH) 17 every 6 Medical 500 mg (six) Branch tablet hours as needed for Pain. pantoprazol 2020-04 Yes 40mg Take 40 mg Univers e 40 mg EC 1-19 by mouth ity o f tablet 13:10: daily. [address] Branch acetaminoph 2020-04 Yes 500mg Take 500 U nivers en (TYLENOL 1-19 mg by ity of EXTRA 13:10: mouth [place] STRENGTH) 17 every 6 Medical 500 mg (six) Branch tablet hours as needed for Pain. pantoprazol 2020-04 Yes 40mg Take 40 mg Univers e 40 mg EC 1-19 by mouth ity o f tablet 13:10: daily. [address] acetaminoph 2020-04 Yes 500mg Take 500 U nivers en (TYLENOL 1-19 mg by ity of EXTRA 13:10: mouth [place] STRENGTH) 17 every 6 Medical 500 mg (six) Branch tablet hours as needed for Pain. pantoprazol 2020-04 Yes 40mg Take 40 mg Univers e 40 mg EC 1-19 by mouth ity o f tablet 13:10: daily. [address] acetaminoph 2020-04 Yes 500mg Take 500 U nivers en (TYLENOL 1-19 mg by ity of EXTRA 13:10: mouth [place] STRENGTH) 17 every 6 Medical 500 mg (six) Branch tablet hours as needed for Pain. pantoprazol 2020-04 Yes 40mg Take 40 mg Univers e 40 mg EC 1-19 by mouth ity o f tablet 13:10: daily. [address] acetaminoph 2020-04 Yes 500mg Take 500 U nivers en (TYLENOL 1-19 mg by ity of EXTRA 13:10: mouth [place] STRENGTH) 17 every 6 Medical 500 mg (six) Branch tablet hours as needed for Pain. pantoprazol 2020-04 Yes 40mg Take 40 mg Univers e 40 mg EC 1-19 by mouth ity o f tablet 13:10: daily. [address] acetaminoph 2020-04 Yes 500mg Take 500 U nivers en (TYLENOL 1-19 mg by ity of EXTRA 13:10: mouth [place] STRENGTH) 17 every 6 Medical 500 mg (six) Branch tablet hours as needed for Pain. pantoprazol 2020-04 Yes 40mg Take 40 mg Univers e 40 mg EC 1-19 by mouth ity o f tablet 13:10: daily. [address] acetaminoph 2020-04 Yes 500mg Take 500 U nivers en (TYLENOL 1-19 mg by ity of EXTRA 13:10: mouth [place] STRENGTH) 17 every 6 Medical 500 mg (six) Branch tablet hours as needed for Pain. pantoprazol 2020-04 Yes 40mg Take 40 mg Univers e 40 mg EC 1-19 by mouth ity o f tablet 13:10: daily. [address] acetaminoph 2020-04 Yes 500mg Take 500 U nivers en (TYLENOL 1-19 mg by ity of EXTRA 13:10: mouth [place] STRENGTH) 17 every 6 Medical 500 mg (six) Branch tablet hours as needed for Pain. pantoprazol 2020-04 Yes 40mg Take 40 mg Univers e 40 mg EC 1-19 by mouth ity o f tablet 13:10: daily. [address] Branch acetaminoph 2020-04 Yes 500mg Take 500 U nivers en (TYLENOL 1-19 mg by ity of EXTRA 13:10: mouth [place] STRENGTH) 17 every 6 Medical 500 mg (six) Branch tablet hours as needed for Pain. pantoprazol 2020-04 Yes 40mg Take 40 mg Univers e 40 mg EC 1-19 by mouth ity o f tablet 13:10: daily. [address] Branch furosemide 2020-04 Yes [id number] 40mg Take 1 U nivers 40 mg 1-19 tablet by ity of tablet 00:00: mouth [place] 00 every Medical morning Branch and evening. spironolact 2020-04 Yes [id number] 25mg Take 1 Univers one 25 mg 1-19 9100 tablet by ity o f tablet 00:00: mouth 2 [place] 00 (two) Medical times Branch daily. furosemide 2020-04 Yes [id number] 40mg Take 1 U nivers 40 mg 1-19 tablet by ity of tablet 00:00: mouth [place] 00 every Medical morning Branch and evening. spironolact 2020-04 Yes [id number] 25mg Take 1 Univers one 25 mg 1-19 9100 tablet by ity o f tablet 00:00: mouth 2 [place] 00 (two) Medical times Branch daily. furosemide 2020-04 Yes [id number] 40mg Take 1 U nivers 40 mg 1-19 tablet by ity of tablet 00:00: mouth [place] 00 every Medical morning Branch and evening. spironolact 2020-04 Yes [id number] 25mg Take 1 Univers one 25 mg 1-19 9100 tablet by ity o f tablet 00:00: mouth 2 [place] 00 (two) Medical times Branch daily. furosemide 2020-04 Yes [id number] 40mg Take 1 U nivers 40 mg 1-19 tablet by ity of tablet 00:00: mouth [place] 00 every Medical morning Branch and evening. spironolact 2020-04 Yes [id number] 25mg Take 1 Univers one 25 mg 1-19 9100 tablet by ity o f tablet 00:00: mouth 2 [place] 00 (two) Medical times Branch daily. furosemide 2020-04 Yes [id number] 40mg Take 1 U nivers 40 mg 1-19 tablet by ity of tablet 00:00: mouth [place] 00 every Medical morning Branch and evening. spironolact 2020-04 Yes [id number] 25mg Take 1 Univers one 25 mg 1-19 9100 tablet by ity o f tablet 00:00: mouth 2 00 (two) Medical times Branch daily. furosemide 2020-04 Yes [id number] 40mg Take 1 U nivers 40 mg 1-19 tablet by ity of tablet 00:00: mouth [place] 00 every Medical morning Branch and evening. spironolact 2020-04 Yes [id number] 25mg Take 1 Univers one 25 mg 1-19 9100 tablet by ity o f tablet 00:00: mouth 2 (two) Medical times Branch daily. furosemide 2020-04 Yes [id number] 40mg Take 1 U nivers 40 mg 1-19 tablet by ity of tablet 00:00: mouth [place] 00 every Medical morning Branch and evening. spironolact 2020-04 Yes [id number] 25mg Take 1 Univers one 25 mg 1-19 9100 tablet by ity o f tablet 00:00: mouth 2 (two) Medical times Branch daily. furosemide 2020-04 Yes [id number] 40mg Take 1 U nivers 40 mg 1-19 tablet by ity of tablet 00:00: mouth [place] 00 every Medical morning Branch and evening. spironolact 2020-04 Yes [id number] 25mg Take 1 Univers one 25 mg 1-19 9100 tablet by ity o f tablet 00:00: mouth 2 (two) Medical times Branch daily. furosemide 2020-04 Yes [id number] 40mg Take 1 U nivers 40 mg 1-19 tablet by ity of tablet 00:00: mouth [place] 00 every Medical morning Branch and evening. spironolact 2020-04 Yes [id number] 25mg Take 1 Univers one 25 mg 1-19 9100 tablet by ity o f tablet 00:00: mouth 2 [place] (two) Medical times Branch daily. furosemide 2020-04 Yes [id number] 40mg Take 1 U nivers 40 mg 1-19 tablet by ity of tablet 00:00: mouth [place] 00 every Medical morning Branch and evening. spironolact 2020-04 Yes [id number] 25mg Take 1 Univers one 25 mg 05-1100 tablet by ity o f tablet 00:00: mouth 2 [place] 00 (two) Medical times Branch daily. metoprolol 2020-04 Yes [id number] 50mg Take 1 U nivers succinate 1-09 tablet by ity o f XL 50 mg 24 00:00: mouth [place] hr tablet 00 daily. Medical TAKE 1 Branch TABLET BY MOUTH ONCE DAILY metoprolol 2020-04 Yes [id number] 50mg Take 1 U nivers succinate 1-09 tablet by ity o f XL 50 mg 24 00:00: mouth [place] hr tablet 00 daily. Medical TAKE 1 Branch TABLET BY MOUTH ONCE DAILY metoprolol 2020-04 Yes [id number] 50mg Take 1 U nivers succinate 1-09 tablet by ity o f XL 50 mg 24 00:00: mouth [place] hr tablet 00 daily. Medical TAKE 1 Branch TABLET BY MOUTH ONCE DAILY metoprolol 2020-04 Yes [id number] 50mg Take 1 U nivers succinate 1-09 tablet by ity o f XL 50 mg 24 00:00: mouth [place] hr tablet 00 daily. Medical TAKE 1 Branch TABLET BY MOUTH ONCE DAILY metoprolol 2020-04 Yes [id number] 50mg Take 1 U nivers succinate 1-09 tablet by ity o f XL 50 mg 24 00:00: mouth [place] hr tablet 00 daily. Medical TAKE 1 Branch TABLET BY MOUTH ONCE DAILY metoprolol 2020-04 Yes [id number] 50mg Take 1 U nivers succinate 1-09 tablet by ity o f XL 50 mg 24 00:00: mouth [place] hr tablet 00 daily. Medical TAKE 1 Branch TABLET BY MOUTH ONCE DAILY metoprolol 2020-04 Yes [id number] 50mg Take 1 U nivers succinate 1-09 tablet by ity o f XL 50 mg 24 00:00: mouth [place] hr tablet 00 daily. Medical TAKE 1 Branch TABLET BY MOUTH ONCE DAILY metoprolol 2020-04 Yes [id number] 50mg Take 1 U nivers succinate 1-09 tablet by ity o f XL 50 mg 24 00:00: mouth [place] hr tablet 00 daily. Medical TAKE 1 Branch TABLET BY MOUTH ONCE DAILY metoprolol 2020-04 Yes [id number] 50mg Take 1 U nivers succinate 1-09 tablet by ity o f XL 50 mg 24 00:00: mouth [place] hr tablet 00 daily. Medical TAKE 1 Branch TABLET BY MOUTH ONCE DAILY metoprolol 2020-04 Yes [id number] 50mg Take 1 U nivers succinate 05-01 tablet by ity o f XL 50 mg 24 00:00: mouth [place] hr tablet 00 daily. Medical TAKE 1 Branch TABLET BY MOUTH ONCE DAILY metoprolol 2020-043- No [id number] 50mg Take 1 Univers succinate 05-01 tablet by ity of XL 50 mg 24 00:00: 00:00 mouth [place] hr tablet 00 :00 daily. Medical TAKE 1 Branch TABLET BY MOUTH ONCE DAILY Insulin 2020-0 Yes [id number] USE Uni vers [place], 7 DIRECTED ity of Disposable, 00:00: WITH [place] (BD INSULIN 00 KWIKPEN Medic al PEN NEEDLE ONCE A DAY [facility]) 29 gauge x 1/2" Ndle Insulin 2020-0 Yes [id number] USE Uni vers [place], 11-17 DIRECTED ity of Disposable, 00:00: WITH [place] (BD INSULIN 00 KWIKPEN Medic al PEN NEEDLE ONCE A DAY [facility]) 29 gauge x 1/2" Ndle Insulin 2020-0 Yes [id number] USE Uni vers [place], 11-17 DIRECTED ity of Disposable, 00:00: WITH [place] (BD INSULIN 00 KWIKPEN Medic al PEN NEEDLE ONCE A DAY [facility]) 29 gauge x 1/2" Ndle Insulin 2020-0 Yes [id number] USE Uni vers [place], 11-17 DIRECTED ity of Disposable, 00:00: WITH [place] (BD INSULIN 00 KWIKPEN Medic al PEN NEEDLE ONCE A DAY [facility]) 29 gauge x 1/2" Ndle Insulin 2020-0 Yes [id number] USE Uni vers [place], 11-17 DIRECTED ity of Disposable, 00:00: WITH [place] (BD INSULIN 00 KWIKPEN Medic al PEN NEEDLE ONCE A DAY [facility]) 29 gauge x 1/2" Ndle Insulin 2020-0 Yes [id number] USE Uni vers [place], 11-17 DIRECTED ity of Disposable, 00:00: WITH [place] (BD INSULIN 00 KWIKPEN Medic al PEN NEEDLE ONCE A DAY [facility]) 29 gauge x 1/2" Ndle Insulin 2020-0 Yes [id number] USE Uni vers [place], 11-17 DIRECTED ity of Disposable, 00:00: WITH [place] (BD INSULIN 00 KWIKPEN Medic al PEN NEEDLE ONCE A DAY [facility]) 29 gauge x 1/2" Ndle Insulin 2020-0 Yes [id number] USE Uni vers [place], 11-17 DIRECTED ity of Disposable, 00:00: WITH [place] (BD INSULIN 00 KWIKPEN Medic al PEN NEEDLE ONCE A DAY [facility]) 29 gauge x 1/2" Ndle Insulin 2020-0 Yes [id number] USE Uni vers [place], 11-17 DIRECTED ity of Disposable, 00:00: WITH [place] (BD INSULIN 00 KWIKPEN Medic al PEN NEEDLE ONCE A DAY [facility]) 29 gauge x 1/2" Ndle Insulin 2020-0 Yes [id number] USE Uni vers [place], 11-17 DIRECTED ity of Disposable, 00:00: WITH [place] (BD INSULIN 00 KWIKPEN Medic al PEN NEEDLE ONCE A DAY [facility]) 29 gauge x 1/2" Ndle Insulin 2020-0 Yes [id number] USE Uni vers [place], 11-17 DIRECTED ity of Disposable, 00:00: WITH [place] (BD INSULIN 00 KWIKPEN Medic al PEN NEEDLE ONCE A DAY [facility]) 29 gauge x 1/2" Ndle TRESIBA 2020-0 Yes [id number] INJECT 24 Univers FLEXTOUCH 2-13 UNITS ity of U-100 100 00:00: UNDER THE [place] as unit/mL (3 00 SKIN AT Medica l mL) [facility] Branch [facility] [id number] INJECT 24 Univers FLEXTOUCH 2-13 UNITS ity of U-100 100 00:00: UNDER THE [place] unit/mL (3 00 SKIN AT Medica l mL) In BEDTIME Branch TRESIBA 2020-0 Yes [id number] INJECT 24 Univers FLEXTOUCH 2-13 UNITS ity of U-100 100 00:00: UNDER THE [place] unit/mL (3 00 SKIN AT Medica l mL) In BEDTIME Branch TRESIBA 2020-0 Yes [id number] INJECT 24 Univers FLEXTOUCH 2-13 UNITS ity of U-100 100 00:00: UNDER THE [place] unit/mL (3 00 SKIN AT Medica l mL) [facility] BEDTIME Branch [facility] Yes [id number] INJECT 24 Univers FLEXTOUCH 2-13 UNITS ity of U-100 100 00:00: UNDER THE [place] unit/mL (3 00 SKIN AT Medica l mL) In BEDTIME [facility] Yes [id number] INJECT 24 Univers FLEXTOUCH 2-13 UNITS ity of U-100 100 00:00: UNDER THE [place] unit/mL (3 00 SKIN AT Medica l mL) In BEDTIME [facility] Yes [id number] INJECT 24 Univers FLEXTOUCH 2-13 UNITS ity of U-100 100 00:00: UNDER THE [place] unit/mL (3 00 SKIN AT Medica l mL) In BEDTIME [facility] Yes [id number] INJECT 24 Univers FLEXTOUCH 2-13 UNITS ity of U-100 100 00:00: UNDER THE [place] unit/mL (3 00 SKIN AT Medica l mL) [facility] [id number] INJECT 24 Univers FLEXTOUCH 2-13 UNITS ity of U-100 100 00:00: UNDER THE [place] unit/mL (3 00 SKIN AT Medica l mL[facility] [id number] INJECT 24 Univers FLEXTOUCH 2-13 UNITS ity of U-100 100 00:00: UNDER THE [place] unit/mL (3 00 SKIN AT Medica l mL) [facility] Yes [id number] INJECT 24 Univers FLEXTOUCH 2-13 UNITS ity of U-100 100 00:00: UNDER THE [place] as unit/mL (3 00 SKIN AT Medica l mL) [facility] glipiZIDE 2020- No [id number] 20mg Take 2 Univers XL 10 mg 24 06-01 tablets by i ty of hr tablet 00:00: 00:00 mouth [place] 00 :00 daily with Medical breakfast. Branch isosorbide 2020- No [id number] 30mg Take 1 Univers mononitrate 05-24 9100 tablet by it y of 30 mg 24 hr 00:00: 00:[place] tablet [place] :00 daily. Medical Branch metoprolol 2020- No [id number] TAKE 1 [facility] succinate 05-24 TABLET BY ity of XL 50 mg 24 00:00: 00:00 MOUTH ONCE [place] hr tablet 00 :00 DAILY Medical Branch lisinopril 2020- No [id number] 10mg Take 2 [facility] 5 mg tablet 05-24 tablets by i ty of 00:00: 00:00 mouth [place] 00 :00 daily. Medical Branch furosemide 2020- No [id number] 20mg Take 0.5 [facility] 40 mg 05-21 tablets by ity of tablet 00:00: 00:00 mouth [place] 00 :00 daily. Medical Branch spironolact 2020- No [id number] 25mg Take 1 [facility] one 25 mg 04-28 9100 tablet by ity of tablet 00:00: 00:00 mouth [place] 00 :00 daily. [facility] Branch clopidogrel 2019- Yes [id number] TAKE 1 [facility] 75 mg 0-29 9100 TABLET BY ity of tablet 00:00: MOUTH ONCE [place] DAILY Medical Branch clopidogrel 2019- Yes [id number] TAKE 1 [facility] 75 mg 0-29 9100 TABLET BY ity of tablet 00:00: MOUTH ONCE [place] DAILY Medical Branch clopidogrel 2019- Yes [id number] TAKE 1 [facility] 75 mg 0-29 9100 TABLET BY ity of tablet 00:00: MOUTH ONCE [place] DAILY Medical Branch clopidogrel 2019- Yes [id number] TAKE 1 [facility] 75 mg 0-29 9100 TABLET BY ity of tablet 00:00: MOUTH ONCE [place] DAILY [facility] Branch clopidogrel 2019- Yes [id number] TAKE 1 [facility] 75 mg 0-29 9100 TABLET BY ity of tablet 00:00: MOUTH ONCE [place] DAILY Medical Branch clopidogrel 2019- Yes [id number] TAKE 1 [facility] 75 mg 0-29 9100 TABLET BY ity of tablet 00:00: MOUTH ONCE [place] DAILY Medical Branch clopidogrel 2019-1 Yes [id number] TAKE 1 [facility] 75 mg 0-29 9100 TABLET BY ity of tablet 00:00: MOUTH ONCE [place] DAILY Medical Branch clopidogrel 2019- Yes [id number] TAKE 1 [facility] 75 mg 0-29 9100 TABLET BY ity of tablet 00:00: MOUTH ONCE [place] DAILY Medical Branch clopidogrel 2019- Yes [id number] TAKE 1 [facility] 75 mg 0-29 9100 TABLET BY ity of tablet 00:00: MOUTH ONCE [place] DAILY Medical Branch clopidogrel 2019- Yes [id number] TAKE 1 [facility] 75 mg 0-29 9100 TABLET BY ity of tablet 00:00: MOUTH ONCE Medical Branch clopidogrel 2018-04 Yes [id number] TAKE 1 [facility] 75 mg 0-29 9100 TABLET BY ity of tablet 00:00: MOUTH ONCE [facility] Branch atorvastati 2018-04 Yes [id number] TAKE 1 [facility] n 80 mg 0-24 9100 TABLET BY ity of tablet 00:00: MOUTH ONCE Medical Branch atorvastati 2018-04 Yes [id number] TAKE 1 [facility] n 80 mg 0-24 9100 TABLET BY ity of tablet 00:00: MOUTH ONCE Medical Branch atorvastati 2018-04 Yes [id number] TAKE 1 [facility] n 80 mg 0-24 9100 TABLET BY ity of tablet 00:00: MOUTH ONCE [facility] atorvastati 2018-04 Yes [id number] TAKE 1 Univers n 80 mg 0-24 9100 TABLET BY ity of tablet 00:00: MOUTH ONCE Medical Branch atorvastati 2018-04 Yes [id number] TAKE 1 [facility] n 80 mg 0-24 9100 TABLET BY ity of tablet 00:00: MOUTH ONCE [facility] atorvastati 2018-04 Yes [id number] TAKE 1 Univers n 80 mg 0-24 9100 TABLET BY ity of tablet 00:00: MOUTH ONCE [facility] atorvastati 2018-04 Yes [id number] TAKE 1 [facility] n 80 mg 0-24 9100 TABLET BY ity of tablet 00:00: MOUTH ONCE Medical Branch atorvastati 2018-04 Yes [id number] TAKE 1 [facility] n 80 mg 0-24 9100 TABLET BY ity of tablet 00:00: MOUTH ONCE Medical Branch atorvastati 2018-04 Yes [id number] TAKE 1 [facility] n 80 mg 0-24 9100 TABLET BY ity of tablet 00:00: MOUTH ONCE Medical Branch atorvastati 2018-04 Yes [id number] TAKE 1 [facility] n 80 mg 0-24 9100 TABLET BY ity of tablet 00:00: MOUTH ONCE [facility] atorvastati 2018-04 Yes [id number] TAKE 1 Univers n 80 mg 0-24 9100 TABLET BY ity of tablet 00:00: MOUTH ONCE [place] 00 DAILY Medical Branch metFORMIN 2018- 2021- No [id number] TAKE ONE [facility] 1,000 mg 0-03 11-17 TABLET BY ity o f tablet 00:00: 00:[place]TH [place]CE [place] 00 :[place] DAILY WITH [facility] allopurinol Yes [id number] 100mg Take 1 [facility] 100 mg 4-02 9109 tablet by ity of tablet 00:00: mouth [place] 00 daily. Medical Branch allopurinol 2018- Yes [id number] 100mg Take 1 [facility] 100 mg 4-02 9109 tablet by ity of tablet 00:00: mouth [place] 00 daily. Medical Branch allopurinol 2018- Yes [id number] 100mg Take 1 [facility] 100 mg 4-02 9109 tablet by ity of tablet 00:00: mouth [place] 00 daily. [facility] Branch allopurinol 2018- Yes [id number] 100mg Take 1 [facility] 100 mg 4-02 9109 tablet by ity of tablet 00:00: mouth [place] 00 daily. Medical Branch allopurinol 2018- Yes [id number] 100mg Take 1 [facility] 100 mg 4-02 9109 tablet by ity of tablet 00:00: mouth [place] 00 daily. Medical Branch allopurinol 2018- Yes [id number] 100mg Take 1 [facility] 100 mg 4-02 9109 tablet by ity of tablet 00:00: mouth [place] 00 daily. [facility] Branch allopurinol 2018- Yes [id number] 100mg Take 1 [facility] 100 mg 4-02 9109 tablet by ity of tablet 00:00: mouth [place] 00 daily. Medical Branch allopurinol 2018- Yes [id number] 100mg Take 1 [facility] 100 mg 4-02 9109 tablet by ity of tablet 00:00: mouth [place] 00 daily. Medical Branch allopurinol 2018- Yes [id number] 100mg Take 1 [facility] 100 mg 4-02 9109 tablet by ity of tablet 00:00: mouth [place] 00 daily. [facility] Branch allopurinol 2018- Yes [id number] 100mg Take 1 [facility] 100 mg 4-02 9109 tablet by ity of tablet 00:00: mouth [place] 00 daily. [facility] Branch allopurinol 2018- Yes [id number] 100mg Take 1 [facility] 100 mg 4-02 9109 tablet by ity of tablet 00:00: mouth [place] 00 daily. Medical Branch ACCU-CHEK 2019-0 Yes Use as Univer s FERNANDA strip 3-14 directed, ity of 00:00: TID, [place] 00 DX:E11.9 Medical Branch ACCU-CHEK 2019-0 Yes Use as Univer s FERNANDA strip 3-14 directed, ity of 00:00: TID, 00 DX:E11.9 Medical Branch ACCU-CHEK 2019-0 Yes Use as Univer s FERNANDA strip 3-14 directed, ity of 00:00: TID, [place] 00 DX:E11.9 Medical Branch ACCU-CHEK 2019-0 Yes Use as Univer s FERNANDA strip 3-14 directed, ity of 00:00: TID, 00 DX:E11.9 Medical Branch ACCU-CHEK 2019-0 Yes Use as Univer s FERNANDA strip 3-14 directed, ity of 00:00: TID, 00 DX:E11.9 Medical Branch ACCU-CHEK 2019-0 Yes Use as Univer s FERNANDA strip 3-14 directed, ity of 00:00: TID, 00 DX:E11.9 Medical Branch ACCU-CHEK 2019-0 Yes Use as Univer s FERNANDA strip 3-14 directed, ity of 00:00: TID, 00 DX:E11.9 Medical Branch ACCU-CHEK 2019-0 Yes Use as Univer s FERNANDA strip 3-14 directed, ity of 00:00: TID, 00 DX:E11.9 Medical Branch ACCU-CHEK 2019-0 Yes Use as Univer s FERNANDA strip 3-14 directed, ity of 00:00: TID, [place] 00 DX:E11.9 Medical Branch ACCU-CHEK 2019-0 Yes Use as Univer s FERNANDA strip 3-14 directed, ity of 00:00: TID, [place] 00 DX:E11.9 Medical Branch ACCU-CHEK 2019-0 Yes Use as Univer s FERNANDA strip 3-14 directed, ity of 00:00: TID, [place] 00 DX:E11.9 Medical Branch Insulin 2019-0 Yes [id number] Inject Uni vers Syringe-Nee 2-27 insulin 2 ity of dle U-100 00:00: times a [place] 0.5 mL day. Dx Medical gauge x code Branch 5/16 Syrg E11.9. lancets Yes Use TID, Univer s (FREESTYLE 2-27 DX E11.9 ity o f LANCETS) 28 00:00: (Brand [place] gauge Misc 00 upon Medical insurance Branch approval) lancets-blo 2018- Yes 1{each} 1 Each 3 Univers od glucose 2-27 (three) ity of strips 30 00:00: times [place] gauge Cmpk 00 daily. Use Med ical TID, DX Branch E11.9 (Brand upon insurance approval) Patient request Verio flex one touch. Insulin 2018- Yes [id number] Inject Uni vers Syringe-Nee 2-27 insulin 2 ity of dle U-100 00:00: times a [place] 0.5 mL day. Dx Medical gauge x code Branch 5/16 Syrg E11.9. lancets Yes Use TID, Univer s (FREESTYLE 2-27 DX E11.9 ity o f LANCETS) 28 00:00: (Brand [place] gauge Misc 00 upon Medical insurance Branch approval) lancets-blo Yes 1{each} 1 Each 3 Univers od glucose 2-27 (three) ity of strips 30 00:00: times [place] gauge Cmpk 00 daily. Use Med ical TID, DX Branch E11.9 (Brand upon insurance approval) Patient request Verio flex one touch. Insulin 2018- Yes [id number] Inject Uni vers Syringe-Nee 2-27 insulin 2 ity of dle U-100 00:00: times a [place] 0.5 mL day. Dx Medical gauge x code Branch 5/16 Syrg E11.9. lancets Yes Use TID, Univer s (FREESTYLE 2-27 DX E11.9 ity o f LANCETS) 28 00:00: (Brand [place] gauge Misc 00 upon Medical insurance Branch approval) lancets-blo 2018- Yes 1{each} 1 Each 3 Univers od glucose 2-27 (three) ity of strips 30 00:00: times [place] gauge Cmpk 00 daily. Use Med ical TID, DX Branch E11.9 (Brand upon insurance approval) Patient request Verio flex one touch. Insulin 2018- Yes [id number] Inject Uni vers Syringe-Nee 2-27 insulin 2 ity of dle U-100 00:00: times a [place] 0.5 mL day. Dx Medical gauge x code Branch 5/16 Syrg E11.9. lancets Yes Use TID, Univer s (FREESTYLE 2-27 DX E11.9 ity o f LANCETS) 28 00:00: (Brand [place] gauge Misc 00 upon Medical insurance Branch approval) lancets-blo 2018- Yes 1{each} 1 Each 3 Univers od glucose 2-27 (three) ity of strips 30 00:00: times [place] gauge Cmpk 00 daily. Use Med ical TID, DX Branch E11.9 (Brand upon insurance approval) Patient request Verio flex one touch. Insulin 2018- Yes [id number] Inject Uni vers Syringe-Nee 2-27 insulin 2 ity of dle U-100 00:00: times a [place] 0.5 mL day. Dx Medical gauge x code Branch 5/16 Syrg E11.9. lancets Yes Use TID, Univer s (FREESTYLE 2-27 DX E11.9 ity o f LANCETS) 28 00:00: (Brand [place] gauge Misc 00 upon Medical insurance Branch approval) lancets-blo 2018- Yes 1{each} 1 Each 3 Univers od glucose 2-27 (three) ity of strips 30 00:00: times [place] gauge Cmpk 00 daily. Use Med ical TID, DX Branch E11.9 (Brand upon insurance approval) Patient request Verio flex one touch. Insulin 2018- Yes [id number] Inject Uni vers Syringe-Nee 2-27 insulin 2 ity of dle U-100 00:00: times a [place] 0.5 mL day. Dx Medical gauge x code Branch 5/16 Syrg E11.9. lancets 2018- Yes Use TID, Univer s (FREESTYLE 2-27 DX E11.9 ity o f LANCETS) 28 00:00: (Brand [place] gauge Misc 00 upon Medical insurance Branch approval) lancets-blo 2018- Yes 1{each} 1 Each 3 Univers od glucose 2-27 (three) ity of strips 30 00:00: times [place] gauge Cmpk 00 daily. Use Med ical TID, DX Branch E11.9 (Brand upon insurance approval) Patient request Verio flex one touch. Insulin 2019- Yes [id number] Inject Uni vers Syringe-Nee 2-27 insulin 2 ity of dle U-100 00:00: times a [place] 0.5 mL day. Dx Medical gauge x code Branch 5/16 Syrg E11.9. lancets Yes Use TID, Univer s (FREESTYLE 2-27 DX E11.9 ity o f LANCETS) 28 00:00: (Brand [place] gauge Misc 00 upon Medical insurance Branch approval) lancets-blo Yes 1{each} 1 Each 3 Univers od glucose 2-27 (three) ity of strips 30 00:00: times [place] gauge Cmpk 00 daily. Use Med ical TID, DX Branch E11.9 (Brand upon insurance approval) Patient request Verio flex one touch. Insulin 2018- Yes [id number] Inject Uni vers Syringe-Nee 2-27 insulin 2 ity of dle U-100 00:00: times a [place] 0.5 mL day. Dx Medical gauge x code Branch 5/16 Syrg E11.9. lancets Yes Use TID, Univer s (FREESTYLE 2-27 DX E11.9 ity o f LANCETS) 28 00:00: (Brand [place] gauge Misc upon Medical insurance Branch approval) lancets-blo 2018- Yes 1{each} 1 Each 3 Univers od glucose 2-27 (three) ity of strips 30 00:00: times [place] gauge Cmpk 00 daily. Use Med ical TID, DX Branch E11.9 (Brand upon insurance approval) Patient request Verio flex one touch. Insulin 2018- Yes [id number] Inject Uni vers Syringe-Nee 2-27 insulin 2 ity of dle U-100 00:00: times a [place] 0.5 mL day. Dx Medical gauge x code Branch 5/16 Syrg E11.9. lancets 2018- Yes Use TID, Univer s (FREESTYLE 2-27 DX E11.9 ity o f LANCETS) 28 00:00: (Brand [place] gauge Misc 00 upon Medical insurance Branch approval) lancets-blo 2018- Yes 1{each} 1 Each 3 Univers od glucose 2-27 (three) ity of strips 30 00:00: times [place] gauge Cmpk 00 daily. Use Med ical TID, DX Branch E11.9 (Brand upon insurance approval) Patient request Verio flex one touch. Insulin 2019 Yes [id number] Inject Uni vers Syringe-Nee 2-27 insulin 2 ity of dle U-100 00:00: times a [place] 0.5 mL day. Dx Medical gauge x code Branch 5/16 Syrg E11.9. lancets Yes Use TID, Univer s (FREESTYLE 2-27 DX E11.9 ity o f LANCETS) 28 00:00: (Brand [place] gauge Misc 00 upon Medical insurance Branch approval) lancets-blo Yes 1{each} 1 Each 3 Univers od glucose 2-27 (three) ity of strips 30 00:00: times [place] gauge Cmpk 00 daily. Use Med ical TID, DX Branch E11.9 (Brand upon insurance approval) Patient request Verio flex one touch. Insulin Yes [id number] Inject Uni vers Syringe-Nee 2-27 insulin 2 ity of dle U-100 00:00: times a [place] 0.5 mL day. Dx Medical gauge x code Branch 5/16 Syrg E11.9. lancets Yes Use TID, Univer s (FREESTYLE 2-27 DX E11.9 ity o f LANCETS) 28 00:00: (Brand [place] gauge Misc 00 upon Medical insurance Branch approval) lancets-blo 2018- Yes 1{each} 1 Each 3 Univers od glucose 2-27 (three) ity of strips 30 00:00: times [place] gauge Cmpk 00 daily. Use Med ical TID, DX Branch E11.9 (Brand upon insurance approval) Patient request Verio flex one touch. ipratropium 2017-04 Yes [id number] 2{spray Use 2 Univers 0.03 % - } Sprays in ity of nasal spray 00:00: each [place] 00 nostril 3 Medical (three) Branch times daily. nitroglycer 2017-[id number] 1 Univers in 1-29 tablet ity of (NITROSTAT) 00:00: under the [place] 0.4 mg 00 tongue Medical sublingual every 5 Branch tablet (five) minutes as needed for Chest pain. ipratropium 2017-04 Yes [id number] 2{spray Use 2 Univers 0.03 % 1-29 } Sprays in ity of nasal spray 00:00: each [place] 00 nostril 3 Medical (three) Branch times daily. nitroglycer 2017-[id number] 1 Univers in 1-29 tablet ity of (NITROSTAT) 00:00: under the [place] 0.4 mg 00 tongue Medical sublingual every 5 Branch tablet (five) minutes as needed for Chest pain. ipratropium 2017-04 Yes [id number] 2{spray Use 2 Univers 0.03 % -29 } Sprays in ity of nasal spray 00:00: each [place] nostril 3 Medical (three) Branch times daily. nitroglycer 2017-[id number] 1 Univers in 1-29 tablet ity of (NITROSTAT) 00:00: under the [place] 0.4 mg 00 tongue Medical sublingual every 5 Branch tablet (five) minutes as needed for Chest pain. ipratropium 2017-04 Yes [id number] 2{spray Use 2 Univers 0.03 % 1-29 } Sprays in ity of nasal spray 00:00: each [place] nostril 3 Medical (three) Branch times daily. nitroglycer 2017-[id number] 1 Univers in 1-29 tablet ity of (NITROSTAT) 00:00: under the [place] 0.4 mg 00 tongue Medical sublingual every 5 Branch tablet (five) minutes as needed for Chest pain. ipratropium 2017-04 Yes [id number] 2{spray Use 2 Univers 0.03 % 29 } Sprays in ity of nasal spray 00:00: each [place] nostril 3 Medical (three) Branch times daily. nitroglycer 2017-[id number] 1 Univers in 1-29 tablet ity of (NITROSTAT) 00:00: under the [place] 0.4 mg 00 tongue Medical sublingual every 5 Branch tablet (five) minutes as needed for Chest pain. ipratropium 2017-04 Yes [id number] 2{spray Use 2 Univers 0.03 % -29 } Sprays in ity of nasal spray 00:00: each [place] nostril 3 Medical (three) Branch times daily. nitroglycer 2017-[id number] 1 Univers in 1-29 tablet ity of (NITROSTAT) 00:00: under the [place] 0.4 mg 00 tongue Medical sublingual every 5 Branch tablet (five) minutes as needed for Chest pain. ipratropium 2017-04 Yes [id number] 2{spray Use 2 Univers 0.03 % 29 } Sprays in ity of nasal spray 00:00: each [place] nostril 3 Medical (three) Branch times daily. nitroglycer 2017-[id number] 1 Univers in 1-29 tablet ity of (NITROSTAT) 00:00: under the [place] 0.4 mg 00 tongue Medical sublingual every 5 Branch tablet (five) minutes as needed for Chest pain. ipratropium 2017-04 Yes [id number] 2{spray Use 2 Univers 0.03 % 29 } Sprays in ity of nasal spray 00:00: each [place] nostril 3 Medical (three) Branch times daily. nitroglycer 2017-[id number] 1 Univers in -29 tablet ity of (NITROSTAT) 00:00: under the [place] 0.4 mg 00 tongue Medical sublingual every 5 Branch tablet (five) minutes as needed for Chest pain. ipratropium 2017-04 Yes [id number] 2{spray Use 2 Univers 0.03 % 29 } Sprays in ity of nasal spray 00:00: each [place] nostril 3 Medical (three) Branch times daily. nitroglycer 2017-[id number] 1 Univers in 1-29 tablet ity of (NITROSTAT) 00:00: under the [place] 0.4 mg 00 tongue Medical sublingual every 5 Branch tablet (five) minutes as needed for Chest pain. ipratropium 2017-04 Yes [id number] 2{spray Use 2 Univers 0.03 % -29 } Sprays in ity of nasal spray 00:00: each [place] nostril 3 Medical (three) Branch times daily. nitroglycer 2017-[id number] 1 Univers in 1-29 tablet ity of (NITROSTAT) 00:00: under the [place] 0.4 mg 00 tongue Medical sublingual every 5 Branch tablet (five) minutes as needed for Chest pain. ipratropium 2017-04 Yes [id number] 2{spray Use 2 Univers 0.03 % 05-21 } Sprays in ity of nasal spray 00:00: each [place] 00 nostril 3 Medical (three) Branch times daily. nitroglycer 2017-[id number] 1 Univers in 05-21 tablet ity of (NITROSTAT) 00:00: under the [place] 0.4 mg 00 tongue Medical sublingual every 5 Branch tablet (five) minutes as needed for Chest pain. Insulin 2017-0 Yes Use as [facility] [place], 5-18 directed ity of Disposable, 00:00: [place] 30 gauge x 00 Medical 5/16" Ndle Branch Insulin 2018-0 Yes Use as [facility] [place], 5-18 directed ity of Disposable, 00:00: [place] 30 gauge x 00 Medical 5/16" Ndle Branch Insulin 2017-0 Yes Use as [facility] [place], 5-18 directed ity of Disposable, 00:00: [place] 30 gauge x 00 Medical 5/16" Ndle Branch Insulin 2018-0 Yes Use as [facility] [place], 5-18 directed ity of Disposable, 00:00: [place] 30 gauge x 00 Medical 5/16" Ndle Branch Insulin 2018-0 Yes Use as [facility] [place], 5-18 directed ity of Disposable, 00:00: [place] 30 gauge x 00 Medical 5/16" Ndle Branch Insulin 2018-0 Yes Use as [facility] [place], 5-18 directed ity of Disposable, 00:00: [place] 30 gauge x 00 Medical 5/16" Ndle Branch Insulin 2018-0 Yes Use as [facility] [place], 5-18 directed ity of Disposable, 00:00: [place] 30 gauge x 00 Medical 5/16" Ndle Branch Insulin 2018-0 Yes Use as [facility] [place], 5-18 directed ity of Disposable, 00:00: [place] 30 gauge x 00 Medical 5/16" Ndle Branch Insulin 2018-0 Yes Use as [facility] [place], 5-18 directed ity of Disposable, 00:00: [place] 30 gauge x 00 Medical 5/16" Ndle Branch Insulin 2018-0 Yes Use as [facility] [place], 5-18 directed ity of Disposable, 00:00: [place] 30 gauge x 00 Medical 5/16" Ndle Branch Insulin 2018-0 Yes Use as [facility] [place], 5-18 directed ity of Disposable, 00:00: [place] 30 gauge x 00 Medical 5/16" Ndle Branch Blood-Gluco 2017-1 Yes [id number] Use TID, Univers se Meter 2-08 DX E11.9 ity of Kit 00:00: ([facility] upon Medical insurance Branch approval) Blood-Gluco 2016- Yes [id number] Use TID, Univers se Meter 2-08 DX E11.9 ity of Kit 00:00: ([facility] upon Medical insurance Branch approval) Blood-Gluco 2016- Yes [id number] Use TID, Univers se Meter 2-08 DX E11.9 ity of Kit 00:00: ([facility] upon [facility] Branch approval) Blood-Gluco 2016- Yes [id number] Use TID, Univers se Meter 2-08 DX E11.9 ity of Kit 00:00: ([facility] Branch approval) Blood-Gluco 2016- Yes [id number] Use TID, Univers se Meter 2-08 DX E11.9 ity of Kit 00:00: ([facility] upon [facility] insurance Branch approval) Blood-Gluco 2016- Yes [id number] Use TID, Univers se Meter 2-08 DX E11.9 ity of Kit 00:00: ([facility] insurance Branch approval) Blood-Gluco 2016- Yes [id number] Use TID, Univers se Meter 2-08 DX E11.9 ity of Kit 00:00: ([facility] insurance Branch approval) Blood-Gluco 2017- Yes [id number] Use TID, Univers se Meter 2-08 DX E11.9 ity of Kit 00:00: ([facility] upon [facility] insurance Branch approval) Blood-Gluco 2016- Yes [id number] Use TID, Univers se Meter 2-08 DX E11.9 ity of Kit 00:00: ([facility] Branch approval) Blood-Gluco 2016- Yes [id number] Use TID, Univers se Meter 2-08 DX E11.9 ity of Kit 00:00: ([facility] upon [facility] Branch approval) Blood-Gluco 2017- Yes [id number] Use TID, Univers se Meter 2-08 DX E11.9 ity of Kit 00:00: (Brand [place] 00 upon Medical insurance Branch approval) aspirin 81 2016-0 Yes 81mg Take 1 Unive rs mg chewable 8-26 tablet by ity of tablet 00:00: mouth [place] 00 daily. Medical Branch aspirin 81 2016-0 Yes 81mg Take 1 Unive rs mg chewable 8-26 tablet by ity of tablet 00:00: mouth [place] 00 daily. Medical Branch aspirin 81 2016-0 Yes 81mg Take 1 Unive rs mg chewable 8-26 tablet by ity of tablet 00:00: mouth [place] 00 daily. Medical Branch aspirin 81 2016-0 Yes 81mg Take 1 Unive rs mg chewable 8-26 tablet by ity of tablet 00:00: mouth [place] 00 daily. Medical Branch aspirin 81 2016-0 Yes 81mg Take 1 Unive rs mg chewable 8-26 tablet by ity of tablet 00:00: mouth [place] 00 daily. Medical Branch aspirin 81 2016-0 Yes 81mg Take 1 Unive rs mg chewable 8-26 tablet by ity of tablet 00:00: mouth [place] 00 daily. Medical Branch aspirin 81 2016-0 Yes 81mg Take 1 Unive rs mg chewable 8-26 tablet by ity of tablet 00:00: mouth [place] 00 daily. Medical Branch aspirin 81 2016-0 Yes 81mg Take 1 Unive rs mg chewable 8-26 tablet by ity of tablet 00:00: mouth [place] 00 daily. Medical Branch aspirin 81 2016-0 Yes 81mg Take 1 Unive rs mg chewable 8-26 tablet by ity of tablet 00:00: mouth [place] 00 daily. Medical Branch aspirin 81 2016-0 Yes 81mg Take 1 Unive rs mg chewable 8-26 tablet by ity of tablet 00:00: mouth [place] 00 daily. Medical Branch aspirin 81 2016-0 Yes 81mg Take 1 Unive rs mg chewable 8-26 tablet by ity of tablet 00:00: mouth [place] 00 daily. Medical Branch Furosemide Furosemide No 1{table BID Furosemide 40 MG 40 MG t} 40 MG Aspirin 81 Aspirin 81 No 1{table QD Aspirin 81 MG MG t} MG Clopidogrel Clopidogrel No 1{table QD Clopidogre Bisulfate Bisulfate t} l 75 MG 75 MG Bisulfate 75 MG Pantoprazol Pantoprazol No 1{table QD Pantoprazo e Sodium 40 e Sodium 40 t} le Sodium MG MG 40 MG Ipratropium Ipratropium No 2{spray BID Ipratropiu [place] s_in_ea m [place] 0.03 % 0.03 % ch_nost 0.03 % ril} Atorvastati Atorvastati No 1{table QD Atorvastat n Calcium n Calcium t} in Calcium 80 MG 80 MG 80 MG Blood Blood No Blood Glucose Glucose Glucose Monitor Monitor Monitor System System System w/Device w/Device w/Device Klor-Con Klor-Con No 1{table QD Klor-Con M20 20 MEQ M20 20 MEQ t_with_ M20 20 MEQ food} Acetaminoph Acetaminoph No 1{table QID Acetaminop en Extra en Extra t_as_ne hen Extra Strength Strength eded} Strength 500 MG 500 MG 500 MG Tresiba Tresiba No QD Tresiba FlexTouch FlexTouch FlexTouch 100 UNIT/ML 100 UNIT/ML 100 UNIT/ML Metoprolol Metoprolol No 1{capsu QD Metoprolol Succinate Succinate le} Succinate 50 MG 50 MG 50 MG Nitroglycer Nitroglycer No Nitroglyce in 0.4 MG in 0.4 MG rin 0.4 MG Magnesium Magnesium No 1{table QD Magnesium Oxide 420 Oxide 420 t_as_ne Oxide 420 MG MG eded} MG Allopurinol Allopurinol No 1{table QD Allopurino 100 MG 100 MG t} l 100 MG Accu check Accu check No BID Accu check [place] test [place]anda test [place] test strips strips strips Blood Blood No Blood Glucose Glucose Glucose Meter Meter Meter Spironolact Spironolact No 1{table BID Spironolac one 25 MG one 25 MG t} tone 25 MG Insulin Insulin No Insulin Syringe-Nee Syringe-Nee Syringe-Ne dle U-100 dle U-100 edle U-100 31G X 5/16" 31G X 5/16" 31G X 0.5 ML 0.5 ML 5/16" 0.5 ML Furosemide Furosemide No 1{table BID Furosemide 40 MG 40 MG t} 40 MG Aspirin 81 Aspirin 81 No 1{table QD Aspirin 81 MG MG t} MG Clopidogrel Clopidogrel No 1{table QD Clopidogre Bisulfate Bisulfate t} l 75 MG 75 MG Bisulfate 75 MG Pantoprazol Pantoprazol No 1{table QD Pantoprazo e Sodium 40 e Sodium 40 t} le Sodium MG MG 40 MG Ipratropium Ipratropium No 2{spray BID Ipratropiu [place] s_in_ea m [place] 0.03 % 0.03 % ch_nost 0.03 % ril} Atorvastati Atorvastati No 1{table QD Atorvastat n Calcium n Calcium t} in Calcium 80 MG 80 MG 80 MG Blood Blood No Blood Glucose Glucose Glucose Monitor Monitor Monitor System System System w/Device w/Device w/Device Klor-Con Klor-Con No 1{table QD Klor-Con M20 20 MEQ M20 20 MEQ t_with_ M20 20 MEQ food} Acetaminoph Acetaminoph No 1{table QID Acetaminop en Extra en Extra t_as_ne hen Extra Strength Strength eded} Strength 500 MG 500 MG 500 MG Tresiba Tresiba No QD Tresiba FlexTouch FlexTouch FlexTouch 100 UNIT/ML 100 UNIT/ML 100 UNIT/ML Metoprolol Metoprolol No 1{capsu QD Metoprolol Succinate Succinate le} Succinate 50 MG 50 MG 50 MG Nitroglycer Nitroglycer No Nitroglyce in 0.4 MG in 0.4 MG rin 0.4 MG Magnesium Magnesium No 1{table QD Magnesium Oxide 420 Oxide 420 t_as_ne Oxide 420 MG MG eded} MG Allopurinol Allopurinol No 1{table QD Allopurino 100 MG 100 MG t} l 100 MG Accu check Accu check No BID Accu check Fernanda test Fernanda test Fernanda test strips strips strips Blood Blood No Blood Glucose Glucose Glucose Meter Meter Meter Spironolact Spironolact No 1{table BID Spironolac one 25 MG one 25 MG t} tone 25 MG Insulin Insulin No Insulin Syringe-Nee Syringe-Nee Syringe-Ne dle U-100 dle U-100 edle U-100 31G X 5/16" 31G X 5/16" 31G X 0.5 ML 0.5 ML 5/16" 0.5 ML Aspirin 81 Aspirin 81 No 1{table QD Aspirin 81 MG MG t} MG Insulin Insulin No Insulin Syringe-Nee Syringe-Nee Syringe-Ne dle U-100 dle U-100 edle U-100 31G X 5/16" 31G X 16" 31G X 0.5 ML 0.5 ML 16" 0.5 ML Clopidogrel Clopidogrel No 1{table QD Clopidogre Bisulfate Bisulfate t} l 75 MG 75 MG Bisulfate 75 MG Allopurinol Allopurinol No 1{table QD Allopurino 100 MG 100 MG t} l 100 MG Ipratropium Ipratropium No 2{spray BID Ipratropiu [place] Hel[place] s_in_ea m [place] 0.03 % 0.03 % ch_nost 0.03 % ril} Atorvastati Atorvastati No 1{table QD Atorvastat n Calcium n Calcium t} in Calcium 80 MG 80 MG 80 MG Blood Blood No Blood Glucose Glucose Glucose Monitor Monitor Monitor System System System w/Device w/Device w/Device Klor-Con Klor-Con No 1{table QD Klor-Con M20 20 MEQ M20 20 MEQ t_with_ M20 20 MEQ food} Acetaminoph Acetaminoph No 1{table QID Acetaminop en Extra en Extra t_as_ne hen Extra Strength Strength eded} Strength 500 MG 500 MG 500 MG Tresiba Tresiba No QD Tresiba FlexTouch FlexTouch FlexTouch 100 UNIT/ML 100 UNIT/ML 100 UNIT/ML Nitroglycer Nitroglycer No Nitroglyce in 0.4 MG in 0.4 MG rin 0.4 MG Pantoprazol Pantoprazol No 1{table QD Pantoprazo e Sodium 40 e Sodium 40 t} le Sodium MG MG 40 MG Furosemide Furosemide No 1{table BID Furosemide 40 MG 40 MG t} 40 MG Accu check Accu check No BID Accu check Fernanda test Fernanda test Fernanda test strips strips strips Spironolact Spironolact No 1{table BID Spironolac one 25 MG one 25 MG t} tone 25 MG Metoprolol Metoprolol No 1{capsu QD Metoprolol Succinate Succinate le} Succinate 50 MG 50 MG 50 MG Blood Blood No Blood Glucose Glucose Glucose Meter Meter Meter Magnesium Magnesium No 1{table QD Magnesium Oxide 420 Oxide 420 t_as_ne Oxide 420 MG MG eded} MG Aspirin 81 Aspirin 81 No 1{table QD Aspirin 81 MG MG t} MG Insulin Insulin No Insulin Syringe-Nee Syringe-Nee Syringe-Ne dle U-100 dle U-100 edle U-100 31G X 5/16" 31G X 5/16" 31G X 0.5 ML 0.5 ML /16" 0.5 ML Clopidogrel Clopidogrel No 1{table QD Clopidogre Bisulfate Bisulfate t} l 75 MG 75 MG Bisulfate 75 MG Allopurinol Allopurinol No 1{table QD Allopurino 100 MG 100 MG t} l 100 MG Ipratropium Ipratropium No 2{spray BID Ipratropiu [place] s_in_ea m [place] 0.03 % 0.03 % ch_nost 0.03 % ril} Atorvastati Atorvastati No 1{table QD Atorvastat n Calcium n Calcium t} in Calcium 80 MG 80 MG 80 MG Blood Blood No Blood Glucose Glucose Glucose Monitor Monitor Monitor System System System w/Device w/Device w/Device Klor-Con Klor-Con No 1{table QD Klor-Con M20 20 MEQ M20 20 MEQ t_with_ M20 20 MEQ food} Acetaminoph Acetaminoph No 1{table QID Acetaminop en Extra en Extra t_as_ne hen Extra Strength Strength eded} Strength 500 MG 500 MG 500 MG Tresiba Tresiba No QD Tresiba FlexTouch FlexTouch FlexTouch 100 UNIT/ML 100 UNIT/ML 100 UNIT/ML Nitroglycer Nitroglycer No Nitroglyce in 0.4 MG in 0.4 MG rin 0.4 MG Pantoprazol Pantoprazol No 1{table QD Pantoprazo e Sodium 40 e Sodium 40 t} le Sodium MG MG 40 MG Furosemide Furosemide No 1{table BID Furosemide 40 MG 40 MG t} 40 MG Accu check Accu check No BID Accu check Fernanda test Fernanda test Fernanda test strips strips strips Spironolact Spironolact No 1{table BID Spironolac one 25 MG one 25 MG t} tone 25 MG Metoprolol Metoprolol No 1{capsu QD Metoprolol Succinate Succinate le} Succinate 50 MG 50 MG 50 MG Blood Blood No Blood Glucose Glucose Glucose Meter Meter Meter Magnesium Magnesium No 1{table QD Magnesium Oxide 420 Oxide 420 t_as_ne Oxide 420 MG MG eded} MG Ipratropium Ipratropium No 2{spray BID Ipratropiu [place] s_in_ea m [place] 0.03 % 0.03 % ch_nost 0.03 % ril} Blood Blood No Blood Glucose Glucose Glucose Monitor Monitor Monitor System System System w/Device w/Device w/Device Nitroglycer Nitroglycer No Nitroglyce in 0.4 MG in 0.4 MG rin 0.4 MG Clopidogrel Clopidogrel No 1{table QD Clopidogre Bisulfate Bisulfate t} l 75 MG 75 MG Bisulfate 75 MG Furosemide Furosemide No 1{table BID Furosemide 40 MG 40 MG t} 40 MG Atorvastati Atorvastati No 1{table QD Atorvastat n Calcium n Calcium t} in Calcium 80 MG 80 MG 80 MG Klor-Con Klor-Con No 1{table QD Klor-Con M20 20 MEQ M20 20 MEQ t_with_ M20 20 MEQ food} Acetaminoph Acetaminoph No 1{table QID Acetaminop en Extra en Extra t_as_ne hen Extra Strength Strength eded} Strength 500 MG 500 MG 500 MG Tresiba Tresiba No QD Tresiba FlexTouch FlexTouch FlexTouch 100 UNIT/ML 100 UNIT/ML 100 UNIT/ML Accu check Accu check No BID Accu check Fernanda test Fernanda test Fernanda test strips strips strips Metoprolol Metoprolol No 1{capsu QD Metoprolol Succinate Succinate le} Succinate 50 MG 50 MG 50 MG Spironolact Spironolact No 1{table BID Spironolac one 25 MG one 25 MG t} tone 25 MG Insulin Insulin No Insulin Syringe-Nee Syringe-Nee Syringe-Ne dle U-100 dle U-100 edle U-100 31G X 5/16" 31G X 5/16" 31G X 0.5 ML 0.5 ML 5/16" 0.5 ML Pantoprazol Pantoprazol No 1{table QD Pantoprazo e Sodium 40 e Sodium 40 t} le Sodium MG MG 40 MG Magnesium Magnesium No 1{table QD Magnesium Oxide 420 Oxide 420 t_as_ne Oxide 420 MG MG eded} MG Blood Blood No Blood Glucose Glucose Glucose Meter Meter Meter Allopurinol Allopurinol No 1{table QD Allopurino 100 MG 100 MG t} l 100 MG Aspirin 81 Aspirin 81 No 1{table QD Aspirin 81 MG MG t} MG Allopurinol Allopurinol No 1{table QD Allopurino 100 MG 100 MG t} l 100 MG Insulin Insulin No Insulin Syringe-Nee Syringe-Nee Syringe-Ne dle U-100 dle U-100 edle U-100 31G X 5/16" 31G X /16" 31G X 0.5 ML 0.5 ML /16" 0.5 ML Acetaminoph Acetaminoph No 1{table QID Acetaminop en Extra en Extra t_as_ne hen Extra Strength Strength eded} Strength 500 MG 500 MG 500 MG Blood Blood No Blood Glucose Glucose Glucose Monitor Monitor Monitor System System System w/Device w/Device w/Device Pantoprazol Pantoprazol No 1{table QD Pantoprazo e Sodium 40 e Sodium 40 t} le Sodium MG MG 40 MG Atorvastati Atorvastati No 1{table QD Atorvastat n Calcium n Calcium t} in Calcium 80 MG 80 MG 80 MG Tresiba Tresiba No QD Tresiba FlexTouch FlexTouch FlexTouch 100 UNIT/ML 100 UNIT/ML 100 UNIT/ML Blood Blood No Blood Glucose Glucose Glucose Meter Meter Meter Ranexa 500 Ranexa 500 No 1{table BID Ranexa 500 MG MG t} MG Metoprolol Metoprolol No 1{table BID Metoprolol Tartrate 25 Tartrate 25 t_with_ Tartrate MG MG food} 25 MG Klor-Con Klor-Con No 1{table QD Klor-Con M20 20 MEQ M20 20 MEQ t_with_ M20 20 MEQ food} Ipratropium Ipratropium No 2{spray BID Ipratropiu [place] Hel[place] s_in_ea m [place] 0.03 % 0.03 % ch_nost 0.03 % ril} Magnesium Magnesium No 1{table QD Magnesium Oxide 420 Oxide 420 t_as_ne Oxide 420 MG MG eded} MG Accu check Accu check No BID Accu check Fernanda test Fernanda test Fernanda test strips strips strips Furosemide Furosemide No 1{table BID Furosemide 40 MG 40 MG t} 40 MG Clopidogrel Clopidogrel No 1{table QD Clopidogre Bisulfate Bisulfate t} l 75 MG 75 MG Bisulfate 75 MG Nitroglycer Nitroglycer No Nitroglyce in 0.4 MG in 0.4 MG rin 0.4 MG Aspirin 81 Aspirin 81 No 1{table QD Aspirin 81 MG MG t} MG Allopurinol Allopurinol No 1{table QD Allopurino 100 MG 100 MG t} l 100 MG Insulin Insulin No Insulin Syringe-Nee Syringe-Nee Syringe-Ne dle U-100 dle U-100 edle U-100 31G X 5/16" 31G X /16" 31G X 0.5 ML 0.5 ML /16" 0.5 ML Acetaminoph Acetaminoph No 1{table QID Acetaminop en Extra en Extra t_as_ne hen Extra Strength Strength eded} Strength 500 MG 500 MG 500 MG Blood Blood No Blood Glucose Glucose Glucose Monitor Monitor Monitor System System System w/Device w/Device w/Device Pantoprazol Pantoprazol No 1{table QD Pantoprazo e Sodium 40 e Sodium 40 t} le Sodium MG MG 40 MG Atorvastati Atorvastati No 1{table QD Atorvastat n Calcium n Calcium t} in Calcium 80 MG 80 MG 80 MG Tresiba Tresiba No QD Tresiba FlexTouch FlexTouch FlexTouch 100 UNIT/ML 100 UNIT/ML 100 UNIT/ML Blood Blood No Blood Glucose Glucose Glucose Meter Meter Meter Ranexa 500 Ranexa 500 No 1{table BID Ranexa 500 MG MG t} MG Metoprolol Metoprolol No 1{table BID Metoprolol Tartrate 25 Tartrate 25 t_with_ Tartrate MG MG food} 25 MG Klor-Con Klor-Con No 1{table QD Klor-Con M20 20 MEQ M20 20 MEQ t_with_ M20 20 MEQ food} Ipratropium Ipratropium No 2{spray BID Ipratropiu [place] s_in_ea m [place] 0.03 % 0.03 % ch_nost 0.03 % ril} Magnesium Magnesium No 1{table QD Magnesium Oxide 420 Oxide 420 t_as_ne Oxide 420 MG MG eded} MG Accu check Accu check No BID Accu check Fernanda test Fernanda test Fernanda test strips strips strips Furosemide Furosemide No 1{table BID Furosemide 40 MG 40 MG t} 40 MG Clopidogrel Clopidogrel No 1{table QD Clopidogre Bisulfate Bisulfate t} l 75 MG 75 MG Bisulfate 75 MG Nitroglycer Nitroglycer No Nitroglyce in 0.4 MG in 0.4 MG rin 0.4 MG Aspirin 81 Aspirin 81 No 1{table QD Aspirin 81 MG MG t} MG Metoprolol Metoprolol No 1{table BID Metoprolol Tartrate 50 Tartrate 50 t_with_ Tartrate MG MG food} 50 MG Pantoprazol Pantoprazol No 1{table QD Pantoprazo e Sodium 40 e Sodium 40 t} le Sodium MG MG 40 MG Tylenol 8 Tylenol 8 No 2{table TID Tylenol 8 Hour 650 MG Hour 650 MG ts_as_n Hour 650 eeded} MG Clopidogrel Clopidogrel No 1{table QD Clopidogre Bisulfate Bisulfate t} l 75 MG 75 MG Bisulfate 75 MG Allopurinol Allopurinol No 1{table QD Allopurino 100 MG 100 MG t} l 100 MG Ipratropium Ipratropium No 2{spray BID Ipratropiu [place] s_in_ea m [place] 0.03 % 0.03 % ch_nost 0.03 % ril} Atorvastati Atorvastati No 1{table QD Atorvastat n Calcium n Calcium t} in Calcium 80 MG 80 MG 80 MG Nitroglycer Nitroglycer No Nitroglyce in 0.4 MG in 0.4 MG rin 0.4 MG Blood Blood No Blood Glucose Glucose Glucose Monitor Monitor Monitor System System System w/Device w/Device w/Device Klor-Con Klor-Con No 1{table QD Klor-Con M20 20 MEQ M20 20 MEQ t_with_ M20 20 MEQ food} Magnesium Magnesium No 1{table QD Magnesium Oxide 420 Oxide 420 t_as_ne Oxide 420 MG MG eded} MG Insulin Insulin No QD Insulin Syringe-Nee Syringe-Nee Syringe-Ne dle U-100 dle U-100 edle U-100 31G X 5/16" 31G X 5/16" 31G X 0.5 ML 0.5 ML 5/16" 0.5 ML Ranexa 500 Ranexa 500 No 1{table BID Ranexa 500 MG MG t} MG Aspirin 81 Aspirin 81 No 1{table QD Aspirin 81 MG MG t} MG Acetaminoph Acetaminoph No 1{table QID Acetaminop en Extra en Extra t_as_ne hen Extra Strength Strength eded} Strength 500 MG 500 MG 500 MG Furosemide Furosemide No 1{table BID Furosemide 40 MG 40 MG t} 40 MG Blood Blood No Blood Glucose Glucose Glucose Meter Meter Meter Tresiba Tresiba No QD Tresiba FlexTouch FlexTouch FlexTouch 100 UNIT/ML 100 UNIT/ML 100 UNIT/ML Pantoprazol Pantoprazol No 1{table QD Pantoprazo e Sodium 40 e Sodium 40 t} le Sodium MG MG 40 MG Tresiba Tresiba No QD Tresiba FlexTouch FlexTouch FlexTouch 100 UNIT/ML 100 UNIT/ML 100 UNIT/ML Aspirin 81 Aspirin 81 No 1{table QD Aspirin 81 MG MG t} MG Metoprolol Metoprolol No 1{table BID Metoprolol Tartrate 50 Tartrate 50 t_with_ Tartrate MG MG food} 50 MG Nitroglycer Nitroglycer No Nitroglyce in 0.4 MG in 0.4 MG rin 0.4 MG Tylenol 8 Tylenol 8 No 2{table TID Tylenol 8 Hour 650 MG Hour 650 MG ts_as_n Hour 650 eeded} MG Furosemide Furosemide No Furosemide 40 MG 40 MG 40 MG Atorvastati Atorvastati No 1{table QD Atorvastat n Calcium n Calcium t} in Calcium 80 MG 80 MG 80 MG Blood Blood No Blood Glucose Glucose Glucose Monitor Monitor Monitor System System System w/Device w/Device w/Device Magnesium Magnesium No 1{table QD Magnesium Oxide 420 Oxide 420 t_as_ne Oxide 420 MG MG eded} MG Clopidogrel Clopidogrel No 1{table QD Clopidogre Bisulfate Bisulfate t} l 75 MG 75 MG Bisulfate 75 MG Allopurinol Allopurinol No 1{table QD Allopurino 100 MG 100 MG t} l 100 MG Acetaminoph Acetaminoph No 1{table QID Acetaminop en Extra en Extra t_as_ne hen Extra Strength Strength eded} Strength 500 MG 500 MG 500 MG Klor-Con Klor-Con No 1{table QD Klor-Con M20 20 MEQ M20 20 MEQ t_with_ M20 20 MEQ food} Ipratropium Ipratropium No 2{spray BID Ipratropiu [place] s_in_ea m [place] 0.03 % 0.03 % ch_nost 0.03 % ril} Blood Blood No Blood Glucose Glucose Glucose Meter Meter Meter Insulin Insulin No QD Insulin Syringe-Nee Syringe-Nee Syringe-Ne dle U-100 dle U-100 edle U-100 31G X 5/16" 31G X 5/16" 31G X 0.5 ML 0.5 ML 5/16" 0.5 ML Ranexa 500 Ranexa 500 No 1{table BID Ranexa 500 MG MG t} MG Furosemide Furosemide No Furosemide 40 MG 40 MG 40 MG Tylenol 8 Tylenol 8 No 2{table TID Tylenol 8 Hour 650 MG Hour 650 MG ts_as_n Hour 650 eeded} MG Lisinopril Lisinopril No 1{table QD Lisinopril 5 MG 5 MG t} 5 MG Ranexa 500 Ranexa 500 No 1{table BID Ranexa 500 MG MG t} MG Pantoprazol Pantoprazol No Pantoprazo e Sodium 40 e Sodium 40 le Sodium MG MG 40 MG Clopidogrel Clopidogrel No 1{table QD Clopidogre Bisulfate Bisulfate t} l 75 MG 75 MG Bisulfate 75 MG Blood Blood No Blood Glucose Glucose Glucose Meter Meter Meter Aspirin 81 Aspirin 81 No 1{table QD Aspirin 81 MG MG t} MG Acetaminoph Acetaminoph No 1{table QID Acetaminop en Extra en Extra t_as_ne hen Extra Strength Strength eded} Strength 500 MG 500 MG 500 MG Furosemide Furosemide No 1{table BID Furosemide 40 MG 40 MG t} 40 MG Blood Blood No Blood Glucose Glucose Glucose Monitor Monitor Monitor System System System w/Device w/Device w/Device Ipratropium Ipratropium No 2{spray BID Ipratropiu [place] s_in_ea m [place] 0.03 % 0.03 % ch_nost 0.03 % ril} Nitroglycer Nitroglycer No Nitroglyce in 0.4 MG in 0.4 MG rin 0.4 MG Allopurinol Allopurinol No 1{table QD Allopurino 100 MG 100 MG t} l 100 MG Tresiba Tresiba No QD Tresiba FlexTouch FlexTouch FlexTouch 100 UNIT/ML 100 UNIT/ML 100 UNIT/ML Atorvastati Atorvastati No 1{table QD Atorvastat n Calcium n Calcium t} in Calcium 80 MG 80 MG 80 MG Insulin Insulin No QD Insulin Syringe-Nee Syringe-Nee Syringe-Ne dle U-100 dle U-100 edle U-100 31G X 5/16" 31G X 5/16" 31G X 0.5 ML 0.5 ML 5/16" 0.5 ML Glimepiride Glimepiride No Glimepirid 1 MG 1 MG e 1 MG Lisinopril Lisinopril No Lisinopril 5 MG 5 MG 5 MG Klor-Con Klor-Con No 1{table QD Klor-Con M20 20 MEQ M20 20 MEQ t_with_ M20 20 MEQ food} Magnesium Magnesium No 1{table QD Magnesium Oxide 420 Oxide 420 t_as_ne Oxide 420 MG MG eded} MG Metoprolol Metoprolol No 1{table BID Metoprolol Tartrate 50 Tartrate 50 t_with_ Tartrate MG MG food} 50 MG Spironolact Spironolact No Spironolac one 25 MG one 25 MG tone 25 MG Clopidogrel Clopidogrel No 1{table QD Clopidogre Bisulfate Bisulfate t} l 75 MG 75 MG Bisulfate 75 MG Furosemide Furosemide No Furosemide 40 MG 40 MG 40 MG Furosemide Furosemide No 1{table BID Furosemide 40 MG 40 MG t} 40 MG Aspirin 81 Aspirin 81 No 1{table QD Aspirin 81 MG MG t} MG Nitroglycer Nitroglycer No Nitroglyce in 0.4 MG in 0.4 MG rin 0.4 MG Ranexa 500 Ranexa 500 No 1{table BID Ranexa 500 MG MG t} MG Clopidogrel Clopidogrel No 1{table QD Clopidogre Bisulfate Bisulfate t} l 75 MG 75 MG Bisulfate 75 MG Allopurinol Allopurinol No 1{table QD Allopurino 100 MG 100 MG t} l 100 MG Lisinopril Lisinopril No Lisinopril 5 MG 5 MG 5 MG Acetaminoph Acetaminoph No 1{table QID Acetaminop en Extra en Extra t_as_ne hen Extra Strength Strength eded} Strength 500 MG 500 MG 500 MG Blood Blood No Blood Glucose Glucose Glucose Meter Meter Meter Blood Blood No Blood Glucose Glucose Glucose Monitor Monitor Monitor System System System w/Device w/Device w/Device Glimepiride Glimepiride No Glimepirid 1 MG 1 MG e 1 MG Ipratropium Ipratropium No 2{spray BID Ipratropiu [place] s_in_ea m [place] 0.03 % 0.03 % ch_nost 0.03 % ril} Metoprolol Metoprolol No 1{table BID Metoprolol Tartrate 50 Tartrate 50 t_with_ Tartrate MG MG food} 50 MG Spironolact Spironolact No Spironolac one 25 MG one 25 MG tone 25 MG Klor-Con Klor-Con No 1{table QD Klor-Con M20 20 MEQ M20 20 MEQ t_with_ M20 20 MEQ food} Furosemide Furosemide No Furosemide 40 MG 40 MG 40 MG Pantoprazol Pantoprazol No Pantoprazo e Sodium 40 e Sodium 40 le Sodium MG MG 40 MG Tresiba Tresiba No QD Tresiba FlexTouch FlexTouch FlexTouch 100 UNIT/ML 100 UNIT/ML 100 UNIT/ML Atorvastati Atorvastati No 1{table QD Atorvastat n Calcium n Calcium t} in Calcium 80 MG 80 MG 80 MG Lisinopril Lisinopril No 1{table QD Lisinopril 5 MG 5 MG t} 5 MG Magnesium Magnesium No 1{table QD Magnesium Oxide 420 Oxide 420 t_as_ne Oxide 420 MG MG eded} MG Insulin Insulin No QD Insulin Syringe-Nee Syringe-Nee Syringe-Ne dle U-100 dle U-100 edle U-100 31G X 5/16" 31G X 5/16" 31G X 0.5 ML 0.5 ML 5/16" 0.5 ML Tylenol 8 Tylenol 8 No 2{table TID Tylenol 8 Hour 650 MG Hour 650 MG ts_as_n Hour 650 eeded} MG Clopidogrel Clopidogrel No 1{table QD Clopidogre Bisulfate Bisulfate t} l 75 MG 75 MG Bisulfate 75 MG Furosemide Furosemide No Furosemide 40 MG 40 MG 40 MG Furosemide Furosemide No 1{table BID Furosemide 40 MG 40 MG t} 40 MG Furosemide Furosemide No 1{table BID Furosemide 40 MG 40 MG t} 40 MG Aspirin 81 Aspirin 81 No 1{table QD Aspirin 81 MG MG t} MG Nitroglycer Nitroglycer No Nitroglyce in 0.4 MG in 0.4 MG rin 0.4 MG Ranexa 500 Ranexa 500 No 1{table BID Ranexa 500 MG MG t} MG Allopurinol Allopurinol No 1{table QD Allopurino 100 MG 100 MG t} l 100 MG Lisinopril Lisinopril No Lisinopril 5 MG 5 MG 5 MG Acetaminoph Acetaminoph No 1{table QID Acetaminop en Extra en Extra t_as_ne hen Extra Strength Strength eded} Strength 500 MG 500 MG 500 MG Blood Blood No Blood Glucose Glucose Glucose Meter Meter Meter Blood Blood No Blood Glucose Glucose Glucose Monitor Monitor Monitor System System System w/Device w/Device w/Device Glimepiride Glimepiride No Glimepirid 1 MG 1 MG e 1 MG Aspirin 81 Aspirin 81 No 1{table QD Aspirin 81 MG MG t} MG Ipratropium Ipratropium No 2{spray BID Ipratropiu [place] s_in_ea m [place] 0.03 % 0.03 % ch_nost 0.03 % ril} Metoprolol Metoprolol No 1{table BID Metoprolol Tartrate 50 Tartrate 50 t_with_ Tartrate MG MG food} 50 MG Spironolact Spironolact No Spironolac one 25 MG one 25 MG tone 25 MG Klor-Con Klor-Con No 1{table QD Klor-Con M20 20 MEQ M20 20 MEQ t_with_ M20 20 MEQ food} Pantoprazol Pantoprazol No Pantoprazo e Sodium 40 e Sodium 40 le Sodium MG MG 40 MG Tresiba Tresiba No QD Tresiba FlexTouch FlexTouch FlexTouch 100 UNIT/ML 100 UNIT/ML 100 UNIT/ML Atorvastati Atorvastati No 1{table QD Atorvastat n Calcium n Calcium t} in Calcium 80 MG 80 MG 80 MG Lisinopril Lisinopril No 1{table QD Lisinopril 5 MG 5 MG t} 5 MG Magnesium Magnesium No 1{table QD Magnesium Oxide 420 Oxide 420 t_as_ne Oxide 420 MG MG eded} MG Insulin Insulin No QD Insulin Syringe-Nee Syringe-Nee Syringe-Ne dle U-100 dle U-100 edle U-100 31G X 5/16" 31G X 5/16" 31G X 0.5 ML 0.5 ML /16" 0.5 ML Nitroglycer Nitroglycer No Nitroglyce in 0.4 MG in 0.4 MG rin 0.4 MG Tylenol 8 Tylenol 8 No 2{table TID Tylenol 8 Hour 650 MG Hour 650 MG ts_as_n Hour 650 eeded} MG Tylenol 8 Tylenol 8 No 2{table TID Tylenol 8 Hour 650 MG Hour 650 MG ts_as_n Hour 650 eeded} MG Atorvastati Atorvastati No Atorvastat n Calcium n Calcium in Calcium 80 MG 80 MG 80 MG Clopidogrel Clopidogrel No 1{table QD Clopidogre Bisulfate Bisulfate t} l 75 MG 75 MG Bisulfate 75 MG Pantoprazol Pantoprazol No Pantoprazo e Sodium 40 e Sodium 40 le Sodium MG MG 40 MG Furosemide Furosemide No Furosemide 40 MG 40 MG 40 MG Blood Blood No Blood Glucose Glucose Glucose Meter Meter Meter Ranexa 500 Ranexa 500 No 1{table BID Ranexa 500 MG MG t} MG Ranexa 500 Ranexa 500 No 1{table BID Ranexa 500 MG MG t} MG Blood Blood No Blood Glucose Glucose Glucose Monitor Monitor Monitor System System System w/Device w/Device w/Device Acetaminoph Acetaminoph No 1{table QID Acetaminop en Extra en Extra t_as_ne hen Extra Strength Strength eded} Strength 500 MG 500 MG 500 MG Magnesium Magnesium No 1{table QD Magnesium Oxide 420 Oxide 420 t_as_ne Oxide 420 MG MG eded} MG Ipratropium Ipratropium No 2{spray BID Ipratropiu [place] s_in_ea m [place] 0.03 % 0.03 % ch_nost 0.03 % ril} Nitroglycer Nitroglycer No Nitroglyce in 0.4 MG in 0.4 MG rin 0.4 MG Allopurinol Allopurinol No 1{table QD Allopurino 100 MG 100 MG t} l 100 MG Tresiba Tresiba No QD Tresiba FlexTouch FlexTouch FlexTouch 100 UNIT/ML 100 UNIT/ML 100 UNIT/ML Klor-Con Klor-Con No 1{table QD Klor-Con M20 20 MEQ M20 20 MEQ t_with_ M20 20 MEQ food} Insulin Insulin No QD Insulin Syringe-Nee Syringe-Nee Syringe-Ne dle U-100 dle U-100 edle U-100 31G X 5/16" 31G X 5/16" 31G X 0.5 ML 0.5 ML 5/16" 0.5 ML Allopurinol Allopurinol No 1{table QD Allopurino 100 MG 100 MG t} l 100 MG Glimepiride Glimepiride No Glimepirid 1 MG 1 MG e 1 MG Aspirin 81 Aspirin 81 No 1{table QD Aspirin 81 MG MG t} MG Furosemide Furosemide No 1{table BID Furosemide 40 MG 40 MG t} 40 MG Lisinopril Lisinopril No Lisinopril 5 MG 5 MG 5 MG Metoprolol Metoprolol No 1{table BID Metoprolol Tartrate 50 Tartrate 50 t_with_ Tartrate MG MG food} 50 MG Spironolact Spironolact No Spironolac one 25 MG one 25 MG tone 25 MG Lisinopril Lisinopril No Lisinopril 5 MG 5 MG 5 MG Atorvastati Atorvastati No Atorvastat n Calcium n Calcium in Calcium 80 MG 80 MG 80 MG Tylenol 8 Tylenol 8 No 2{table TID Tylenol 8 Hour 650 MG Hour 650 MG ts_as_n Hour 650 eeded} MG Spironolact Spironolact No Spironolac one 25 MG one 25 MG tone 25 MG Lisinopril Lisinopril No Lisinopril 5 MG 5 MG 5 MG Acetaminoph Acetaminoph No 1{table QID Acetaminop en Extra en Extra t_as_ne hen Extra Strength Strength eded} Strength 500 MG 500 MG 500 MG Insulin Insulin No QD Insulin Syringe-Nee Syringe-Nee Syringe-Ne dle U-100 dle U-100 edle U-100 31G X 5/16" 31G X 5/16" 31G X 0.5 ML 0.5 ML 5/16" 0.5 ML Ranexa 500 Ranexa 500 No 1{table BID Ranexa 500 MG MG t} MG Ipratropium Ipratropium No 2{spray BID Ipratropiu [place] s_in_ea m [place] 0.03 % 0.03 % ch_nost 0.03 % ril} Glimepiride Glimepiride No Glimepirid 1 MG 1 MG e 1 MG Furosemide Furosemide No 1{table BID Furosemide 40 MG 40 MG t} 40 MG Furosemide Furosemide No Furosemide 40 MG 40 MG 40 MG Nitroglycer Nitroglycer No Nitroglyce in 0.4 MG in 0.4 MG rin 0.4 MG Aspirin 81 Aspirin 81 No 1{table QD Aspirin 81 MG MG t} MG Allopurinol Allopurinol No 1{table QD Allopurino 100 MG 100 MG t} l 100 MG Blood Blood No Blood Glucose Glucose Glucose Meter Meter Meter Blood Blood No Blood Glucose Glucose Glucose Meter Meter Meter Blood Blood No Blood Glucose Glucose Glucose Monitor Monitor Monitor System System System w/Device w/Device w/Device Pantoprazol Pantoprazol No Pantoprazo e Sodium 40 e Sodium 40 le Sodium MG MG 40 MG Clopidogrel Clopidogrel No 1{table QD Clopidogre Bisulfate Bisulfate t} l 75 MG 75 MG Bisulfate 75 MG Klor-Con Klor-Con No 1{table QD Klor-Con M20 20 MEQ M20 20 MEQ t_with_ M20 20 MEQ food} Lisinopril Lisinopril No 1{table QD Lisinopril 5 MG 5 MG t} 5 MG Tresiba Tresiba No QD Tresiba FlexTouch FlexTouch FlexTouch 100 UNIT/ML 100 UNIT/ML 100 UNIT/ML Metoprolol Metoprolol No 1{table BID Metoprolol Tartrate 50 Tartrate 50 t_with_ Tartrate MG MG food} 50 MG Acetaminoph Acetaminoph No 1{table QID Acetaminop en Extra en Extra t_as_ne hen Extra Strength Strength eded} Strength 500 MG 500 MG 500 MG Magnesium Magnesium No 1{table QD Magnesium Oxide 420 Oxide 420 t_as_ne Oxide 420 MG MG eded} MG Blood Blood No Blood Glucose Glucose Glucose Monitor Monitor Monitor System System System w/Device w/Device w/Device Glimepiride Glimepiride No Glimepirid 1 MG 1 MG e 1 MG Ipratropium Ipratropium No 2{spray BID Ipratropiu [place] s_in_ea m [place] 0.03 % 0.03 % ch_nost 0.03 % ril} Metoprolol Metoprolol No 1{table BID Metoprolol Tartrate 50 Tartrate 50 t_with_ Tartrate MG MG food} 50 MG Spironolact Spironolact No Spironolac one 25 MG one 25 MG tone 25 MG Klor-Con Klor-Con No 1{table QD Klor-Con M20 20 MEQ M20 20 MEQ t_with_ M20 20 MEQ food} Pantoprazol Pantoprazol No Pantoprazo e Sodium 40 e Sodium 40 le Sodium MG MG 40 MG Tresiba Tresiba No QD Tresiba FlexTouch FlexTouch FlexTouch 100 UNIT/ML 100 UNIT/ML 100 UNIT/ML Atorvastati Atorvastati No 1{table QD Atorvastat n Calcium n Calcium t} in Calcium 80 MG 80 MG 80 MG Lisinopril Lisinopril No 1{table QD Lisinopril 5 MG 5 MG t} 5 MG Magnesium Magnesium No 1{table QD Magnesium Oxide 420 Oxide 420 t_as_ne Oxide 420 MG MG eded} MG Insulin Insulin No QD Insulin Syringe-Nee Syringe-Nee Syringe-Ne dle U-100 dle U-100 edle U-100 31G X 5/16" 31G X 5/16" 31G X 0.5 ML 0.5 ML 5/16" 0.5 ML Tylenol 8 Tylenol 8 No 2{table TID Tylenol 8 Hour 650 MG Hour 650 MG ts_as_n Hour 650 eeded} MG Clopidogrel Clopidogrel No 1{table QD Clopidogre Bisulfate Bisulfate t} l 75 MG 75 MG Bisulfate 75 MG Furosemide Furosemide No Furosemide 40 MG 40 MG 40 MG Furosemide Furosemide No 1{table BID Furosemide 40 MG 40 MG t} 40 MG Aspirin 81 Aspirin 81 No 1{table QD Aspirin 81 MG MG t} MG Nitroglycer Nitroglycer No Nitroglyce in 0.4 MG in 0.4 MG rin 0.4 MG Ranexa 500 Ranexa 500 No 1{table BID Ranexa 500 MG MG t} MG Allopurinol Allopurinol No 1{table QD Allopurino 100 MG 100 MG t} l 100 MG Lisinopril Lisinopril No Lisinopril 5 MG 5 MG 5 MG Acetaminoph Acetaminoph No 1{table QID Acetaminop en Extra en Extra t_as_ne hen Extra Strength Strength eded} Strength 500 MG 500 MG 500 MG Blood Blood No Blood Glucose Glucose Glucose Meter Meter Meter Blood Blood No Blood Glucose Glucose Glucose Monitor Monitor Monitor System System System w/Device w/Device w/Device Glimepiride Glimepiride No Glimepirid 1 MG 1 MG e 1 MG Ipratropium Ipratropium No 2{spray BID Ipratropiu [place] s_in_ea m [place] 0.03 % 0.03 % ch_nost 0.03 % ril} Metoprolol Metoprolol No 1{table BID Metoprolol Tartrate 50 Tartrate 50 t_with_ Tartrate MG MG food} 50 MG Spironolact Spironolact No Spironolac one 25 MG one 25 MG tone 25 MG Klor-Con Klor-Con No 1{table QD Klor-Con M20 20 MEQ M20 20 MEQ t_with_ M20 20 MEQ food} Pantoprazol Pantoprazol No Pantoprazo e Sodium 40 e Sodium 40 le Sodium MG MG 40 MG Tresiba Tresiba No QD Tresiba FlexTouch FlexTouch FlexTouch 100 UNIT/ML 100 UNIT/ML 100 UNIT/ML Atorvastati Atorvastati No 1{table QD Atorvastat n Calcium n Calcium t} in Calcium 80 MG 80 MG 80 MG Lisinopril Lisinopril No 1{table QD Lisinopril 5 MG 5 MG t} 5 MG Magnesium Magnesium No 1{table QD Magnesium Oxide 420 Oxide 420 t_as_ne Oxide 420 MG MG eded} MG Insulin Insulin No QD Insulin Syringe-Nee Syringe-Nee Syringe-Ne dle U-100 dle U-100 edle U-100 31G X 5/16" 31G X 5/16" 31G X 0.5 ML 0.5 ML 5/16" 0.5 ML Tylenol 8 Tylenol 8 No 2{table TID Tylenol 8 Hour 650 MG Hour 650 MG ts_as_n Hour 650 eeded} MG Accu check Accu check 2021- No BID Accu check Fernanda test Fernanda test 11-15 Fernanda test strips strips 00:00 strips :00 Accu check Accu check 2021- No BID Accu check Fernanda test Fernanda test 11-15 Fernanda test strips strips 00:00 strips :00 Spironolact Spironolact 2021- No 1{table BID Spironolac one 25 MG one 25 MG 10-16 t} tone 25 MG 00:00 :00 Spironolact Spironolact 2021- No 1{table BID Spironolac one 25 MG one 25 MG 10-16 t} tone 25 MG 00:00 :00 Spironolact Spironolact 2021- No 1{table BID Spironolac one 25 MG one 25 MG 10-16 t} tone 25 MG 00:00 :00 Spironolact Spironolact 2021- No 1{table BID Spironolac one 25 MG one 25 MG 10-16 t} tone 25 MG 00:00 :00 Immunizations Ordered Filled Immunization Date Status Comments Sourc e Immunization Name Name Flucelvax - Flucelvax - 2022-03-30 Completed [facility] multidose [facility]ial multidose vial 14:26:00 [facility] Flucelvax - Flucelvax - 2021-02-25 Completed [facility] multidose vial multidose vial 15:40:00 [facility] Flucelvax - Flucelvax - 2021-02-25 Completed [facility] - multidose vial multidose vial 15:40:00 [facility] Flucelvax - Flucelvax - 2021-02-25 Completed [facility] - multidose vial multidose vial 15:40:00 [facility] Flucelvax - Flucelvax - 2021-02-25 Completed [facility] - multidose vial multidose vial 15:40:00 [facility] Flucelvax - Flucelvax - 2021-02-25 Completed [facility] - multidose vial multidose vial 15:40:00 [facility] Flucelvax - Flucelvax - 2021-02-25 Completed [facility] - multidose vial multidose vial 15:40:00 [facility] Flucelvax - Flucelvax - 2021-02-25 Completed [facility] - multidose vial multidose vial 15:40:00 [facility] Flucelvax - Flucelvax - 2021-02-25 Completed [facility] - multidose vial multidose vial 15:40:00 [facility] Flucelvax - Flucelvax - 2021-02-25 Completed [facility] - multidose vial multidose vial 15:40:00 [facility] Flucelvax - Flucelvax - 2021-02-25 Completed [facility] - multidose vial multidose vial 15:40:00 [facility] Flucelvax - Flucelvax - 2021-02-25 Completed [facility] - multidose vial multidose vial 15:40:00 [facility] Flucelvax - Flucelvax - 2021-02-25 Completed [facility] - multidose vial multidose vial 15:40:00 [facility] Flucelvax - Flucelvax - 2021-02-25 Completed [facility] - multidose vial multidose vial 15:40:00 [facility] Flucelvax - Flucelvax - 2021-02-25 Completed [facility] - multidose vial multidose vial 15:40:00 [facility] Flucelvax - Flucelvax - 2021-02-25 Completed [facility] - multidose vial multidose vial 15:40:00 [facility] Flucelvax - Flucelvax - 2021-02-25 Completed [facility] - multidose vial multidose vial 15:40:00 [facility] TDAP 2020-01-09 Completed University of 00:00:00 [facility] Influenza Virus 2020-01-09 Completed Universit y of Vaccine Recomb Quad 00:00:00 [facility], Preserv and ABX Branc h Free 18-64 YRS TDAP 2020-01-09 Completed University of 00:00:00 [facility] Influenza Virus 2020-01-09 Completed Universit y of Vaccine Recomb Quad 00:00:00 [facility], Preserv and ABX Branc h Free 18-64 YRS TDAP 2020-01-09 Completed University of 00:00:00 [facility] Influenza Virus 2020-01-09 Completed Universit y of Vaccine Recomb Quad 00:00:00 [facility], Preserv and ABX Branc h Free 18-64 YRS TDAP 2020-01-09 Completed University of 00:00:00 [facility] Influenza Virus 2020-01-09 Completed Universit y of Vaccine Recomb Quad 00:00:00 [facility], Preserv and ABX Branc h Free 18-64 YRS TDAP 2020-01-09 Completed University of 00:00:00 [facility] Influenza Virus 2020-01-09 Completed Universit y of Vaccine Recomb Quad 00:00:00 [facility], Preserv and ABX Branc h Free 18-64 YRS TDAP 2020-01-09 Completed University of 00:00:00 [facility] Influenza Virus 2020-01-09 Completed Universit y of Vaccine Recomb Quad 00:00:00 [facility], Preserv and ABX Branc h Free 18-64 YRS TDAP 2020-01-09 Completed University of 00:00:00 [facility] Influenza Virus 2020-01-09 Completed Universit y of Vaccine Recomb Quad 00:00:00 [facility], Preserv and ABX Branc h Free 18-64 YRS TDAP 2020-01-09 Completed University of 00:00:00 [facility] Influenza Virus 2020-01-09 Completed Universit y of Vaccine Recomb Quad 00:00:00 [facility], Preserv and ABX Branc h Free 18-64 YRS TDAP 2020-01-09 Completed University of 00:00:00 [facility] Influenza Virus 2020-01-09 Completed Universit y of Vaccine Recomb Quad 00:00:00 [facility] IM, Preserv and ABX Branc h Free 18-64 YRS TDAP 2020-01-09 Completed University of 00:00:00 [facility] Influenza Virus 2020-01-09 Completed Universit y of Vaccine Recomb Quad 00:00:00 [facility], Preserv and ABX Branc h Free 18-64 YRS TDAP 2020-01-09 Completed University of 00:00:00 [facility] Influenza Virus 2020-01-09 Completed Universit y of Vaccine Recomb Quad 00:00:00 [facility], Preserv and ABX Branc h Free 18-64 YRS Influenza Virus 2018-01-24 Completed Universit y of Vaccine 00:00:00 [facility] Pneumococcal 2018-01-24 Completed University o f Polysaccharide, 00:00:00 [place] [facility] PPSV23 (PNEUMOVAX) Branch Influenza Virus 2018-01-24 Completed Universit y of Vaccine Quad .5 mL 00:00:00 [facility] IM 6+ MO Branch Influenza Virus 2018-01-24 Completed Universit y of Vaccine 00:00:00 [facility] Pneumococcal 2018-01-24 Completed University o f Polysaccharide, 00:00:00 [place] [facility] PPSV23 (PNEUMOVAX) Branch Influenza Virus 2018-01-24 Completed Universit y of Vaccine Quad .5 mL 00:00:00 [facility] IM 6+ MO Branch Influenza Virus 2018-01-24 Completed Universit y of Vaccine 00:00:00 [facility] Pneumococcal 2018-01-24 Completed University o f Polysaccharide, 00:00:00 [place] [facility] PPSV23 (PNEUMOVAX) Branch Influenza Virus 2018-01-24 Completed Universit y of Vaccine Quad .5 mL 00:00:00 [facility] IM 6+ MO Branch Influenza Virus 2018-01-24 Completed Universit y of Vaccine 00:00:00 [facility] Pneumococcal 2018-01-24 Completed University o f Polysaccharide, 00:00:00 [place] [facility] PPSV23 (PNEUMOVAX) Branch Influenza Virus 2018-01-24 Completed Universit y of Vaccine Quad .5 mL 00:00:00 [facility] IM 6+ MO Branch Influenza Virus 2018-01-24 Completed Universit y of Vaccine 00:00:00 [facility] Pneumococcal 2018-01-24 Completed University o f Polysaccharide, 00:00:00 [place] [facility] PPSV23 (PNEUMOVAX) Branch Influenza Virus 2018-01-24 Completed Universit y of Vaccine Quad .5 mL 00:00:00 [facility] IM 6+ MO Branch Influenza Virus 2018-01-24 Completed Universit y of Vaccine 00:00:00 [facility] Pneumococcal 2018-01-24 Completed University o f Polysaccharide, 00:00:00 [place] [facility] PPSV23 (PNEUMOVAX) Branch Influenza Virus 2018-01-24 Completed Universit y of Vaccine Quad .5 mL 00:00:00 [facility] 6+ MO Branch Influenza Virus 2018-01-24 Completed Universit y of Vaccine 00:00:00 [facility] Pneumococcal 2018-01-24 Completed University o f Polysaccharide, 00:00:00 [place] [facility] PPSV23 (PNEUMOVAX) Branch Influenza Virus 2018-01-24 Completed Universit y of Vaccine Quad .5 mL 00:00:00 [facility] IM 6+ MO Branch Influenza Virus 2018-01-24 Completed Universit y of Vaccine 00:00:00 [facility] Pneumococcal 2018-01-24 Completed University o f Polysaccharide, 00:00:00 [place] [facility] PPSV23 (PNEUMOVAX) Branch Influenza Virus 2018-01-24 Completed Universit y of Vaccine Quad .5 mL 00:00:00 [facility] IM 6+ MO Branch Influenza Virus 2018-01-24 Completed Universit y of Vaccine 00:00:00 [facility] Pneumococcal 2018-01-24 Completed University o f Polysaccharide, 00:00:00 [place] [facility] PPSV23 (PNEUMOVAX) Branch Influenza Virus 2018-01-24 Completed Universit y of Vaccine Quad .5 mL 00:00:00 [facility] IM 6+ MO Branch Influenza Virus 2018-01-24 Completed Universit y of Vaccine 00:00:00 [facility] Pneumococcal 2018-01-24 Completed University o f Polysaccharide, 00:00:00 [place] [facility] PPSV23 (PNEUMOVAX) Branch Influenza Virus 2018-01-24 Completed Universit y of Vaccine Quad .5 mL 00:00:00 [facility] IM 6+ MO Branch Influenza Virus 2018-01-24 Completed Universit y of Vaccine 00:00:00 [facility] Pneumococcal 2018-01-24 Completed University o f Polysaccharide, 00:00:00 [place] [facility] PPSV23 (PNEUMOVAX) Branch Influenza Virus 2018-01-24 Completed Universit y of Vaccine Quad .5 mL 00:00:00 [facility] IM 6+ MO [place] Influenza Virus 2017-02-12 Completed Universit y of Vaccine Quad IM 3+ 00:00:00 [facility] Influenza Virus 2017-02-12 Completed Universit y of Vaccine Quad IM 3+ 00:00:00 [facility] Influenza Virus 2017-02-12 Completed Universit y of Vaccine Quad IM 3+ 00:00:00 [facility] Influenza Virus 2017-02-12 Completed Universit y of Vaccine Quad IM 3+ 00:00:00 [facility] Influenza Virus 2017-02-12 Completed Universit y of Vaccine Quad IM 3+ 00:00:00 [facility] Influenza Virus 2017-02-12 Completed Universit y of Vaccine Quad IM 3+ 00:00:00 [facility] Influenza Virus 2017-02-12 Completed Universit y of Vaccine Quad IM 3+ 00:00:00 [facility] Influenza Virus 2017-02-12 Completed Universit y of Vaccine Quad IM 3+ 00:00:00 [facility] Influenza Virus 2017-02-12 Completed Universit y of Vaccine Quad IM 3+ 00:00:00 [facility] Influenza Virus 2017-02-12 Completed Universit y of Vaccine Quad IM 3+ 00:00:00 [facility] Influenza Virus 2017-02-12 Completed Universit y of Vaccine Quad IM 3+ 00:00:00 [facility] Influenza Virus 2016-02-03 Completed Universit y of Vaccine Quad IM 3+ 00:00:00 [facility] Pneumococcal 2016-02-03 Completed University o f Polysaccharide, 00:00:00 [place] [facility] PPSV23 (PNEUMOVAX) [place] Influenza Virus 2016-02-03 Completed Universit y of Vaccine Quad IM 3+ 00:00:00 [facility] Pneumococcal 2016-02-03 Completed University o f Polysaccharide, 00:00:00 [place] [facility] PPSV23 (PNEUMOVAX) Branch Influenza Virus 2016-02-03 Completed Universit y of Vaccine Quad IM 3+ 00:00:00 [facility] Pneumococcal 2016-02-03 Completed University o f Polysaccharide, 00:00:00 [place] [facility] PPSV23 (PNEUMOVAX) Branch Influenza Virus 2016-02-03 Completed Universit y of Vaccine Quad IM 3+ 00:00:00 [facility] Pneumococcal 2016-02-03 Completed University o f Polysaccharide, 00:00:00 [place] [facility] PPSV23 (PNEUMOVAX) Branch Influenza Virus 2016-02-03 Completed Universit y of Vaccine Quad IM 3+ 00:00:00 [facility] Pneumococcal 2016-02-03 Completed University o f Polysaccharide, 00:00:00 [place] [facility] PPSV23 (PNEUMOVAX) Branch Influenza Virus 2016-02-03 Completed Universit y of Vaccine Quad IM 3+ 00:00:00 [facility] Pneumococcal 2016-02-03 Completed University o f Polysaccharide, 00:00:00 [place] [facility] PPSV23 (PNEUMOVAX) Branch Influenza Virus 2016-02-03 Completed Universit y of Vaccine Quad IM 3+ 00:00:00 [facility] Pneumococcal 2016-02-03 Completed University o f Polysaccharide, 00:00:00 [place] [facility] PPSV23 (PNEUMOVAX) Branch Influenza Virus 2016-02-03 Completed Universit y of Vaccine Quad IM 3+ 00:00:00 [facility] Pneumococcal 2016-02-03 Completed University o f Polysaccharide, 00:00:00 [place] [facility] PPSV23 (PNEUMOVAX) Branch Influenza Virus 2016-02-03 Completed Universit y of Vaccine Quad IM 3+ 00:00:00 [facility] Pneumococcal 2016-02-03 Completed University o f Polysaccharide, 00:00:00 [place] [facility] PPSV23 (PNEUMOVAX) Branch Influenza Virus 2016-02-03 Completed Universit y of Vaccine Quad IM 3+ 00:00:00 [facility] Pneumococcal 2016-02-03 Completed University o f Polysaccharide, 00:00:00 [place] [facility] PPSV23 (PNEUMOVAX) Branch Influenza Virus 2016-02-03 Completed Universit y of Vaccine Quad IM 3+ 00:00:00 [facility] Branch Pneumococcal 2016-02-03 Completed University o f Polysaccharide, 00:00:00 [facility] ical PPSV23 (PNEUMOVAX) Branch Vital Signs Vital Name Observation Time Observation Value Comments Source height 2021-11-16 08:00:00 69.5 [in_i] [facility] weight 2021-11-16 08:00:00 180 [lb_av] [facility] temperature 2021-11-16 08:00:00 98.4 [degF] [facility] bmi 2021-11-16 08:00:00 26.2 kg/m2 [facility] oximetry 2021-11-16 08:00:00 100 % [facility] respiratory rate 2021-11-16 08:00:00 16 /min [facility] on [facility] height 2021-08-17 11:20:00 69 [in_i] [facility] weight 2021-08-17 11:20:00 183 [lb_av] [facility] temperature 2021-08-17 11:20:00 98.3 [degF] [facility] bmi 2021-08-17 11:20:00 27.02 kg/m2 [facility] oximetry 2021-08-17 11:20:00 98 % [facility] respiratory rate 2021-08-17 11:20:00 16 /min Comm on [facility] blood pressure 2021-08-17 11:20:00 122 mm[Hg] [facility] [place] [place] systolic [facility] blood pressure 2021-08-17 11:20:00 74 mm[Hg] [facility] [place] [place] diastolic [facility] height 2021-07-18 13:00:00 69 [in_i] [facility] weight 2021-07-18 13:00:00 181 [lb_av] [facility] temperature 2021-07-18 13:00:00 97.4 [degF] [facility] bmi 2021-07-18 13:00:00 26.73 kg/m2 [facility] oximetry 2021-07-18 13:00:00 100 % [facility] respiratory rate 2021-07-18 13:00:00 16 /min [facility] on [facility] blood pressure 2021-07-18 13:00:00 123 mm[Hg] [facility] systolic [facility] blood pressure 2021-07-18 13:00:00 73 mm[Hg] Common [facility] - diastolic [facility] height 2021-05-10 09:40:00 69 [in_i] Common [facility] weight 2021-05-10 09:40:00 187.4 [lb_av] [facility] temperature 2021-05-10 09:40:00 97.2 [degF] Common [facility] bmi 2021-05-10 09:40:00 27.67 kg/m2 [facility] oximetry 2021-05-10 09:40:00 100 % [facility] respiratory rate 2021-05-10 09:40:00 16 /min [facility] blood pressure 2021-05-10 09:40:00 128 mm[Hg] [facility] systolic [facility] blood pressure 2021-05-10 09:40:00 70 mm[Hg] [facility] diastolic [facility] height 2021-05-10 09:20:00 69 [in_i] Common [facility] weight 2021-05-10 09:20:00 187.4 [lb_av] [facility] temperature 2021-05-10 09:20:00 97.2 [degF] [facility] bmi 2021-05-10 09:20:00 27.67 kg/m2 [facility] - [facility] oximetry 2021-05-10 09:20:00 100 % [facility] - [facility] blood pressure 2021-05-10 09:20:00 128 mm[Hg] [facility] systolic [facility] blood pressure 2021-05-10 09:20:00 70 mm[Hg] [facility] - diastolic [facility] Systolic blood 2021-03-01 15:08:00 152 mm[Hg] Univer sity of pressure [facility] Diastolic blood 2021-03-01 15:08:00 90 mm[Hg] Unive rsity of pressure [facility] Heart rate 2021-03-01 15:00:00 82 /min [facility] [place] Body height 2021-03-01 15:00:00 175.3 cm [facility] [place] Body weight 2021-03-01 15:00:00 86.183 kg [facility] [place] BMI 2021-03-01 15:00:00 28.06 kg/m2 [facility] Oxygen saturation in 2021-03-01 15:00:00 99 /min University of Arterial blood by [facility] Pulse oximetry Branch Systolic blood 2021-03-01 15:08:00 152 mm[Hg] Univer sity of pressure [facility] [place] Diastolic blood 2021-03-01 15:08:00 90 mm[Hg] Unive rsity of pressure [facility] Heart rate 2021-03-01 15:00:00 82 /min [facility] Body height 2021-03-01 15:00:00 175.3 cm [facility] Body weight 2021-03-01 15:00:00 86.183 kg [facility] [place] BMI 2021-03-01 15:00:00 28.06 kg/m2 [facility] Oxygen saturation in 2021-03-01 15:00:00 99 /min [facility] of Arterial blood by [facility] Pulse oximetry Branch Systolic blood 2021-03-01 15:08:00 152 mm[Hg] Univer sity of pressure [facility] Diastolic blood 2021-03-01 15:08:00 90 mm[Hg] [facility] [place] rsity of pressure [facility] Heart rate 2021-03-01 15:00:00 82 /min [facility] Body height 2021-03-01 15:00:00 175.3 cm [facility] Body weight 2021-03-01 15:00:00 86.183 kg [facility] BMI 2021-03-01 15:00:00 28.06 kg/m2 [facility] Oxygen saturation in 2021-03-01 15:00:00 99 /min [facility] Arterial blood by [facility] Pulse oximetry Branch Procedures Procedure Date / Time Performing Clinician Source Performed DME/SUPPLY JUSTIFICATION 2022-03-08 06:01:00 Doctor Unassigned, No [facility] DME/SUPPLY JUSTIFICATION 2022-01-18 05:01:00 Doctor Unassigned, No [facility] DME/SUPPLY JUSTIFICATION 2022-01-04 05:01:00 Doctor Unassigned, No [facility] REFERRAL- 2021-11-11 05:01:00 Doctor Unassigned, No [facility] REQUEST/RESPONSE [facility] EXTERNAL PROVIDER - ADC 2021-07-19 05:01:00 Doctor Unassigned, N o [facility] CARDIOLOGY [facility] SLEEP LAB RESULTS 2021-06-01 06:01:00 Doctor Unassigned, No [facility] HB ECG ROUTINE & RHYTHM 2021-03-01 15:12:23 Andrea Baum [facility] Plan of Care Planned Activity Planned Date Details Comments Source Encounters Start End Encounter Admission Attending Care Care Encounter Source Date/Time Date/Time Type Type Clinicians Facility Department ID 2022-03-29 Outpatient OSCAR Rodriguez [facility] [id number] Common 11:32:01 [facility] 2022-02-22 Outpatient OSCAR Rodriguez [facility] [id number] Common 08:52:02 [facility] 2022-01-25 Outpatient OSCAR Rodriguez [facility] [id number] Common 11:16:03 [facility] 2021-11-28 Outpatient Rodriguez, [facility]ML[facility] [id number] Common 16:51:01 [facility] 2021-07-15 Outpatient Rodriguez, STLMLC [facility] [id number] Common 09:35:02 [facility] 2021-05-18 Outpatient Rodriguez, STLMLC [facility] [id number] Common 14:36:44 [facility] 2022-04-24 2022-04-24 [facility] [id number] Univers 00:00:00 00:00:00 Andrea HONG [id number] [id number] [id number] Fl dical NAL 059 [facility] 2022-04-06 2022-04-06 (TEL) [facility] [id number] Co mmon 00:00:00 00:00:00 [facility] 2022-03-08 2022-03-08 Orders Doctor GARRETT [id number] Univers 00:00:00 00:00:00 Only Unassigned, SHIKHA [id number] ity of [place] [facility] [id number] [place] as [id number] [address] 2022-03-01 2022-03-01 Telephone Ju [facility] [id number] Univers 00:00:00 00:00:00 Brenda HONG [id number] [id number] [id number] Fl dical NAL 085 [facility] 2022-02-16 2022-02-[address] [facility] [id number] Univers 15:20:00 15:20:00 ANDREA browny o f [facility] 2022-01-26 2022-01-26 (TEL) [facility] [id number] Co mmon 00:00:00 00:00:00 [facility] 2022-01-18 2022-01-18 Orders Doctor GARRETT [id number] Univers 00:00:00 00:00:00 Only Unassigned, SHIKHA [id number] ity of [place] [facility] [id number] [place] as [phone] [address] 2022-01-17 2022-01-17 Outpatient R SARIKA, ST. [facility] [id number] Univers 15:40:00 15:40:00 ANDREA ity o [facility] 2022-01-10 2022-01-10 [facility]TEL[facility] [id number] Co mmon 00:00:00 00:00:00 [facility] 2022-01-04 2022-01-04 Outpatient R SARIKA, [facility] [id number] Univers 15:20:00 15:20:00 [facility] browny o [facility] 2022-01-04 2022-01-04 Orders Doctor GARRETT Espinoza2.840.114 [id number] Univers 00:00:00 00:00:00 Only Unassigned, SHIKHA 350.1.13.10 ity of [place] [facility] 4.2.7.2.686 Hansel as [phone] [address] 2021-11-29 2021-11-29 Outpatient R SARIKA, [facility] [id number] Univers 09:20:00 09:20:00 ANDREA ity o [facility] 2021-11-28 2021-11-28 Outpatient R SARIKA, [facility] [id number] Univers 09:00:00 09:00:00 [facility] ity o [facility] 2021-11-16 2021-11-16 [facility] [id number] Co mmon 00:00:00 00:00:00 VISIT Spirit [facility] - CHI LEVEL 4 [facility] 2021-11-11 2021-11-11 Orders Doctor GARRETT Espinoza2.840.114 [id number] Univers 00:00:00 00:00:00 Only Unassigned, SHIKHA 350.1.13.10 ity of [place] [facility] 4.2.7.2.686 Hansel as [phone] [facility] [address] 2021-10-03 2021-10-[address] [facility] [id number] Univers 00:00:00 23:59:00 SALVATORE ity of [facility] 2021-10-03 2021-10-03 Hospital PAPA Polanco 1.2.840.114 [id number] Univers 00:00:00 23:59:00 Encounter Salvatore SHIKHA 350.1.13.10 ity of HOSPITAL 4.2.7.2.686 [place] [phone] [place] 240424 Branch 2021-09-06 2021-09-06 (TEL) STLMLC ST[facility] [id number] Co mmon 00:00:00 00:00:00 [facility] 2021-08-22 2021-08-[address] [facility] [id number] Univers 15:00:00 15:00:00 ANDREA harding o f [facility] 2021-08-17 2021-08-17 OFFICE STLMLC STLMLC [id number] Co mmon 00:00:00 00:00:00 VISIT [facility] PT - CHI LEVEL 4 [facility] 2021-07-19 2021-07-19 Orders Doctor TUCKER 1.2.840.114 [id number] Univers 00:00:00 00:00:00 Only Unassigned, SHIKHA 350.1.13.10 ity of [place] [facility] 4.2.7.2.686 Hansel as [phone] [address] 2021-07-18 2021-07-18 OFFICE STLMLC STLMLC [id number] Co mmon 00:00:00 00:00:00 VISIT Spirit ESTAB PT - CHI LEVEL 4 [facility] 2021-07-11 2021-07-11 (TEL) STLMLC STLMLC [id number] Co mmon 00:00:00 00:00:00 Spirit - CHI [facility] 2021-06-30 2021-06-30 (TEL) STLMLC STLMLC [id number] Co mmon 00:00:00 00:00:00 [facility] 2021-06-09 2021-06-09 Outpatient R SARIKA, [facility] [id number] Univers 00:00:00 00:00:00 ANDREA meaghan o [facility] 2021-06-09 2021-06-09 Outpatient R SARIKA, [facility] [id number] Univers 00:00:00 00:00:00 RACHELBABAK meaghan o [facility] 2021-06-01 2021-06-01 [facility] 1.2.949.055 [id number] Univers 10:20:00 10:40:00 Visit Brenda HONG 350.1.13.10 ity [facility] [place].2.[place] [phone] [facility] 085 [facility] 2021-06-01 2021-06-01 Outpatient R BRENDA RHOADES [facility] [id number] Univers 10:20:00 10:20:00 BRENDA RHOADES ity [facility] 2021-06-01 2021-06-01 Orders Doctor GARRETT 1.2.840.114 [id number] Univers 00:00:00 00:00:00 Only Unassigned, SHIKHA 350.1.13.10 [facility] 4.2.7.2.686 [place] [phone] [address] 2021-05-25 2021-05-25 (TEL) [facility] [id number] Co mmon 00:00:00 00:00:00 [facility] 2021-05-20 2021-05-20 Telephone [facility] 1.2.840.114 [id number] Univers 00:00:00 00:00:00 Oriana HONG 350.1.13.10 [facility] 4.2.7.2.[place] [phone] Fl dical [facility] 231 [facility] 2021-05-10 2021-05-10 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 2.840.114 [id number] Univers 19:30:00 22:00:00 Visit JerardoMaria Luisa aparicionikhil HONG 350.1.13. 10 ity of [place] 4.2.7.2.686 [facility] [phone] [facility] [address] 2021-05-10 2021-05-10 Outpatient R MARIA LUISA RHOADESAZSole [facility] [id number] Univers 19:30:00 19:30:00 BRENDA RHOADES itfaheem [facility] 2021-05-10 2021-05-10 Outpatient R MARIA LUISA RHOADESAZSole [facility] [id number] Univers 19:30:00 19:30:00 BRENDA RHOADES itfaheem [facility] 2021-05-10 2021-05-10 OFFICE STLMLC STLMLC [id number] Co mmon 00:00:00 00:00:00 VISIT EST Spir it PT LEVEL 3 - CHI [facility] 2021-05-10 2021-05-10 (TEL) STLMLC STLMLC [id number] Co mmon 00:00:00 00:00:00 Spirit - CHI [facility] 2021-05-10 2021-05-10 SUB ANNUAL STLMLC STLMLC [id number] Common 00:00:00 00:00:00 MCR Spirit WELLNESS - CHI VISIT [facility] 2021-05-07 2021-05-07 Laboratory Only, Adc Test [facility] 1.2.840. 114 [id number] Univers 09:30:00 09:45:00 Only Prasanth Orellana 350.1.13.10 ity of [place] 4.2.7.2.686 [facility] [phone] [facility] [address] 2021-05-07 2021-05-[address] [facility] [id number] Univers 09:30:00 09:30:00 PRASANTH harding [facility] 2021-05-07 2021-05-07 Orders Doctor TUCKER 1.2.840.114 [id number] Univers 00:00:00 00:00:00 Only Unassigned, SHIKHA 350.1.13.10 [facility] 4.2.7.2.686 [place] [phone] [place] [address] Branch 2021-05-06 2021-05-[address] [facility] [id number] Univers 09:00:00 09:00:00 ity of [facility] 2021-04-02 2021-04-02 Orders Doctor GARRETT 1.2.840.114 [id number] Univers 00:00:00 00:00:00 Only Unassigned, SHIKHA 350.1.13.10 [facility] 4.2.7.2.686 [place] [phone] [facility] 009 [address] 2021-03-30 2021-03-30 Office Atanasov, [facility] 1.2.060.360 [id number] Univers 10:32:58 10:48:14 Visit Strahil T [place] 350.1.13.10 ity of [place].2.7.2.686 [place] [facility] [phone] Fl dic[place] 746235 [facility] 2021-03-30 2021-03-30 Outpatient R ATANASOV, STRAHIL 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 10 ity of [place] 4.2.7.2.686 [place] [phone] [facility] [address] 2021-03-22 2021-03-22 Outpatient R ATANASOV, STRAHIL [facility] [id number] Univers 13:00:00 13:00:00 ATANASOV, STRAHIL ity of [facility] 2021-03-21 2021-03-21 Laboratory Only, Adc Test [facility] 1.2.840. 114 [id number] Univers 08:15:40 08:30:40 Only Atanasov, Strahil T [place] 350.1.13. 10 ity of [place] 4.2.7.2.686 [place] [phone] [facility] [address] 2021-03-21 2021-03-21 Outpatient R BRENDA RHOADES [facility] [id number] Univers 08:30:00 08:30:00 BRENDA RHOADES ity of [facility] 2021-03-21 2021-03-21 Orders Doctor GARRETT 1.2.840.114 [id number] Univers 00:00:00 00:00:00 Only Unassigned, SHIKHA 350.1.13.10 ity of [place] [facility] 4.2.7.2.686 [place] as [phone] [facility] 009 [address] 2021-03-14 2021-03-14 Transition LEANN Lilly 1.2.840.114 [id number] Univers 00:00:00 00:00:00 of Care Yvonne BARROS 350.1.13.10 it y of [place]2.[place] [phone] [facility] 403 [address] 2021-03-14 2021-03-14 Telephone [facility] 1.2.076.696 [id number] Univers 00:00:00 00:00:00 Andrea HONG 350.1.13.10 ity of [place].2.7.2.686 [place] [facility] [phone] [facility] 059 [facility] 2021-03-09 2021-03-11 [facility] Renato Enio [facility] 1.2.840.1 14 [id number] Univers 05:49:00 12:45:00 Encounter Nir Verdugo 350.1.13.10 ity [facility] 4.2.7.2.[place] [phone] [facility] 080 [address] 2021-03-11 2021-03-11 Telephone Lucina, TRAUMA 1.2.840.114 [id number] Univers 00:00:00 00:00:00 Nir DE LA CRUZ 350.1.13.10 it y [place]2.[place] [phone] [facility] 014 Branch 2021-03-07 2021-03-[address] [facility] [id number] Univers 09:00:00 23:59:00 ANDREA lai [facility] 2021-03-07 2021-03-07 Outpatient R SARIKA, [facility] DARRELL [id number] Univers 09:00:00 23:59:00 ANDREA lai [facility] 2021-03-07 2021-03-07 Hospital Sarika, [facility] 1.2.840.114 [id number] Univers 08:59:21 23:59:00 Encounter Andrea HONG 350.1.13.10 [facility] 4.2.7.2.[place] [phone] [address] 2021-03-07 2021-03-07 Outpatient R SARIKA, [facility] [id number] Univers 09:00:00 09:00:00 ANDREA lai [facility] 2021-03-01 2021-03-01 Outpatient R SARIKA, [facility] [id number] Univers 09:00:00 09:30:40 ANDREA lai [facility] 2021-03-01 2021-03-01 Outpatient R SARIKA, [facility] [id number] Univers 09:00:00 09:30:40 ANDREA lai [facility] 2021-03-01 2021-03-01 Outpatient R SARIKA, [facility] [id number] Univers 09:00:00 09:30:40 ANDREA lai [facility] 2021-03-01 2021-03-01 Office [facility] 1.2.840.114 [id number] Univers 09:00:00 09:30:40 Visit Andrea HONG 350.1.13.10 ity of [place].7.2.[place] [phone] Fl dical NAL 9 [facility] 2021-03-01 2021-03-01 Office [facility] 1.2.840.114 [id number] Univers 09:00:00 09:30:40 Visit Andrea HONG 350.1.13.10 ity of [place] 4.[place].7.2.[place] [phone] Fl dical NAL 059 [facility] 2021-03-01 2021-03-01 [facility] [id number] Univers 09:00:00 09:30:40 ANDREA harding o f [facility] 2021-03-01 2021-03-01 Office [facility] 1.2.840.114 [id number] Univers 08:55:17 09:30:40 Visit Andrea HONG 350.1.13.10 ity of [address] [phone] Fl dical NAL 059 [facility] 2021-03-01 2021-03-01 Orders Doctor GARRETT 1.2.840.114 [id number] Univers 00:00:00 00:00:00 Only Unassigned, SHIKHA 350.1.13.10 ity of [place] [facility] 4.2.7.2.686 Hansel as [phone] [facility] [address] 2020-10-25 2020-10-25 [facility] Papa Polanco 1.2.840.114 [id number] Univers 00:00:00 23:59:00 Encounter Salvatore Shikha 350.1.13.10 ity of [place] [address].2.7.2.686 Hansel as [phone] [facility] 844 [place] 2020-10-25 2020-10-25 [facility] [id number] Univers 00:00:00 00:00:00 SALVATORE ity [facility] 2020-07-26 2020-07-26 Outpatient [facility] [id number] Univers 00:00:00 00:00:00 SALVATORE ity [facility] 2020-04-26 2020-04-26 [facility] Eben Cantu 1.2.840.114 [id number] 10:15:00 23:59:00 Encounter Francisca carvalho 350.1.13.[address]2.686 [phone] [facility] 2020-04-26 2020-04-26 [facility] Francisca Goff 1. 2.840.114 [id number] Univers 10:15:00 23:59:00 Encounter Marnie Remote Device Check At Ho me - [place] 350.1.13.10 ity of [facility] 4.2.7.2.686 [place] [phone] [address] 2020-04-26 2020-04-26 [address] R [address] [facility] [id number] Univers 10:15:00 10:15:00 FRANCISCA CARVALHO y of [facility] 2020-01-19 2020-01-19 [facility] Papa Polanco 1.2.840.114 [id number] 11:45:00 23:59:00 Encounter Salvatore [place] 350.1.13.10 [facility] [phone] [facility] 2020-01-19 2020-01-19 [facility] Salvatore Polanco 1.2.840.114 [id number] [facility] 11:45:00 23:59:00 Encounter Marnie, Remote Device Check At me - [place] 350.1.13.10 ity [facility] 4.2.7.2.686 [place] as [phone] [address] 2020-01-19 2020-01-19 [facility] [id number] [facility] 11:45:00 11:45:00 SALVATORE ity [facility] 2020-01-13 2020-01-13 Telephone [facility] 1.2.840.114 [id number] 00:00:00 00:00:00 Oriana Ignacioton 350.1.13.10 [place] 4.2.7.2.686 Professio [phone] [address] 2020-01-13 2020-01-13 Telephone [facility] 1.2.840.114 [id number] Univers 00:00:00 00:00:00 Oriana A [place] 350.1.13.10 ity of [place].7.2.[place] [phone] Fl dical [address] 2020-01-09 2020-01-09 Telephone [facility] 1.2.840.114 [id number] Univers 00:00:00 00:00:00 Oriana A [place] 350.1.13.10 ity of [place] 4[place]2.7.2.[place] [phone] Fl dical [address] 2020-01-09 2020-01-09 Orders Doctor GARRETT 1.2.840.114 [id number] Univers 00:00:00 00:00:00 Only Unassigned, SHIKHA 350.1.13.10 ity of [place] [facility] 4.2.7.2.686 Hansel as [phone] [address] 2020-01-09 2020-01-09 Telephone [facility] 1.2.840.114 [id number] 00:00:00 00:00:00 Orianagrace Hong 350.1.13.10 [place] 4.2.7.2.686 Professio [phone] [address] 2020-01-09 2020-01-09 Orders Doctor TUCKER 1.2.840.114 [id number] 00:00:00 00:00:00 Only Unassigned, SHIKHA 350.1.13.10 [place] [facility] [id number] [facility] 2019-11-18 2019-11-18 Refill [facility] 1.2.840.114 [id number] Univers 00:00:00 00:00:00 Orianagrace Hong 350.1.13.10 ity of [place].2.[place] [phone] [address] 2019-11-18 2019-11-18 Refill [facility] 1.2.840.114 [id number] 00:00:00 00:00:00 Orianagrace Ignacioton 350.1.13.10 [place] 4.2.7.2.686 Professio [phone] [address] 2019-10-21 2019-10-[address] [facility] [id number] Univers 13:30:00 13:30:00 ity of [facility] 2019-06-30 2019-06-30 Orders Doctor TUCKER 1.2.840.114 [id number] Univers 00:00:00 00:00:00 Only Unassigned, SHIKHA 350.1.13.10 ity of [place] [facility] 4.2.7.2.686 Hansel as [phone] [address] 2019-06-30 2019-06-30 Orders Doctor GARRETT 1.2.840.114 [id number] 00:00:00 00:00:00 Only Unassigned, SHIKHA 350.1.13.10 [place] [facility] [phone] 2019 2019 Telephone [facility] 1.2.840.114 [id number] 00:00:00 00:00:00 Oriana A [place] 350.1.13.10 [place] 4.2.7.2.686 Professio [phone] [address] 2019 2019 Telephone [facility] 1.2.840.114 [id number] Univers 00:00:00 00:00:00 Oriana A [place] 350.1.13.10 ity of [place] 4[place].2.[place] [phone] [address] 2019-06-12 2019-06-12 Telephone [facility] 1.2.840.114 [id number] Univers 00:00:00 00:00:00 Oriana A [place] 350.1.13.10 ity of [place] 4[place].7.2.[place] [phone] [address] 2019-06-11 2019-06-11 Orders Doctor TUCKER 1.2.840.114 [id number] 00:00:00 00:00:00 Only Unassigned, SHIKHA 350.1.13.10 [place] [facility] 4.2.7.2.686 [phone] 2019-06-11 2019-06-11 Orders Doctor TUCKER 1.2.840.114 [id number] Univers 00:00:00 00:00:00 Only Unassigned, SHIKHA 350.1.13.10 ity of [place] [facility] 4.2.7.2.686 Hansel as [phone] [address] 2019-06-04 2019-06-04 Refill Trena [facility] 1.2.840.114 [id number] Univers 00:00:00 00:00:00 Oriana Hong 350.1.13.10 ity of [place] 4[place]2.[place] [phone] [address] 2019-05-26 2019-05-26 Refill Trena [facility] 1.2.840.114 [id number] Univers 00:00:00 00:00:00 Oriana Hong 350.1.13.10 ity of [place] 4.2.7.2.[place] [phone] [address] 2019-05-22 2019-05-22 Orders Doctor GARRETT 1.2.840.114 [id number] Univers 00:00:00 00:00:00 Only Unassigned, SHIKHA 350.1.13.10 ity of [place] [facility] 4.2.7.2.686 Hansel as [phone] [address] 2019-05-22 2019-05-22 [facility]ill [facility] 1.2.840.114 [id number] Univers 00:00:00 00:00:00 Andrea Hong 350.1.13.10 ity of [place] 4[place].7.2.[place] [phone] [address] 2019-05-22 2019-05-22 Refill Trena [facility] 1.2.840.114 [id number] Univers 00:00:00 00:00:00 Oriana Hong 350.1.13.10 ity of [place] 4[place].2.[place] [phone] [address] 2019-05-19 2019-05-19 Refill Sarika [facility] 1.2.840.114 [id number] Univers 00:00:00 00:00:00 Andrea Hong 350.1.13.10 ity of [place] 4[place].7.2.[place] [phone] [address] Building 2019-04-25 2019-05-15 Nurse Visit, Adc Nurse [facility] 1.2.840.1 [id number] [facility] 14:24:35 23:34:51 Visit Lucia Craft 350.1.13. 10 ity of [place] 4.2.7.2.[place] [phone] [place] 673439 [facility] 2019-05-09 2019-05-09 Telephone Trena [facility] 1.2.840.114 [id number] Univers 00:00:00 00:00:00 Oriana Hong 350.1.13.10 ity of [place] 4.2.7.2.[place] [phone] [facility] 231 [facility] 2019-04-25 2019-04-25 Orders Doctor GARRETT 1.2.840.114 [id number] Univers 00:00:00 00:00:00 Only Unassigned, SHIKHA 350.1.13.10 ity of [place] [facility] 4.2.7.2.686 Hansel as [phone] [address] 2019-01-27 2019-01-27 Orders Doctor GARRETT 1.2.840.114 [id number] Univers 00:00:00 00:00:00 Only Unassigned, SHIKHA 350.1.13.10 ity of [place] [facility] 4.2.7.2.686 Hansel as [phone] [address] 2019-01-16 2019-01-16 Outpatient E MHSE CAR [id number] [facility] 11:09:00 11:09:[facility] 2019-01-09 2019-01-09 Creative Resource Manager, Adc Cardio Fac [facility] 1. 2.840.114 [id number] Univers 08:39:06 09:49:30 Only 1, Adc Cardio Fac Room Mireya 350.1. 13.10 ity of [place] 4.2.7.2.686 [place] Professio [phone] [address] 2019-01-07 2019-01-07 Telephone Trena [facility] 1.2.840.114 [id number] [facility] 00:00:00 00:00:00 Oriana Velasco Mireya 350.1.13.10 ity of [place] 4.2.7.2.[place] [phone] Fl diccandy nal 044 [facility] 2018-12-20 2018-12-24 Nurse Visit, [facility] Nurse [facility] 1.2.840.1 14 [id number] [facility] 10:17:50 14:25:36 Visit Andrea Baum 350.1.13.10 ity of [place] 4[place].7.2.[place] [phone] [facility]59 [facility] 2018-12-04 2018-12-04 Telephone [facility] 1.2.571.620 [id number] Univers 00:00:00 00:00:00 Andrea Hong 350.1.13.10 ity of [place] 4[place].7.2.[place] [phone] [facility] 059 [facility] 2018-11-16 2018-11-16 Orders Doctor GARRETT 1.2.840.114 [id number] Univers 00:00:00 00:00:00 Only Unassigned, SHIKHA 350.1.13.10 ity of [place] [facility] 4.2.7.2.686 Hansel as [phone] [address] 2018-11-08 2018-11-08 Telephone [facility] 1.2.759.138 [id number] Univers 00:00:00 00:00:00 Andrea Hong 350.1.13.10 ity of [place] 4[place].2.[place] [phone] [place] 673439 [facility] Results Test Description Test Time Test Comments Results Result Comments Source CBC W/AUTO DIFF 2022-02-14 00:00:00 Test Item Value Reference Range Interpretation Comme nts WBC (test code = 40576-1) 6.2 K/UL See_Comment [ Automated message] The system which ge nerated this result transmit antonia reference range: 3.5-11.0 K/UL. The reference range was not used to interpret th is result as normal/abnormal . RBC (test code = 85225-8) 3.38 M/UL See_Comment L [ Automated message] The system which [place] nerated this result transmit antonia reference range: 4.50-6.1 0 M/UL. The reference range was not used to interpret th is result as normal/abnormal . HEMOGLOBIN (test code = 9.2 G/DL See_Comment L [Au tomated message] The 718-7) system which [place] nerated this result transmit an[place]ia reference range: 13.5-17. 0 G/DL. The reference range was not used to interpret th is result as normal/abnormal . HEMATOCRIT (test code = 30.5 % See_Comment L [Au tomated message] The 35214-1) system which [place] nerated this result transmit antonia reference range: 40.0-51. 0 %. The reference range was not used to interpret th is result as normal/abnormal . MCV (test code = 89419-1) 90.2 fL See_Comment [ Automated message] The system which [place] nerated this result transmit antonia reference range: 80.0-99. 0 fL. The reference range was not used to interpret th is result as normal/abnormal . MCH (test code = 56060-8) 27.2 PG See_Comment [ Automated message] The system which [place] nerated this result transmit antonia reference range: 25.0-33. 0 PG. The reference range was not used to interpret th is result as normal/abnormal . MCHC (test code = 61770-2) 30.2 G/DL See_Comment L [Automated message] The system which [place] nerated this result transmit antonia reference range: 31.0-36. 0 G/DL. The reference range was not used to interpret th is result as normal/abnormal . RDW (test code = 66864-3) 14.3 % See_Comment [ Automated message] The system which [place] nerated this result transmit antonia reference range: 11.5-15. 0 %. The reference range was not used to interpret th is result as normal/abnormal . NEUTROPHILS (test code = 80.7 % 45282-0) LYMPHOCYTES (test code = 9.0 % 01055-2) MONOCYTES (test code = 8.0 % 85625-2) EOSINOPHILS (test code = 1.8 % 00986-0) BASOPHILS (test code = 0.3 % 34561-2) NUCLEATED RBCS (test code 0.0 /100 WBC'S See_Comment [Automated message] The = 38710-0) system which [place] nerated this result transmit an[place]ia reference range: 0.0 /100 WBC'S. The reference range was not used to interpret th is result as normal/abnormal . PLATELET COUNT (test code 257 K/UL See_Comment [ Automated message] The = 26867-3) system which [place] nerated this result transmit an[place]ia reference range: 130-400 K/UL. The reference range was not used to interpret th is result as normal/abnormal . HEMOGLOBIN [id number] 00:00:00 Test Item Value Reference Range Interpretation Comments HEMOGLOBIN A1c (test 7.3 % See_Comment H [Autom ated message] The code = 4548-4) system which generated this result tra nsmitted reference range : 4.2-5.6 %. The referenc e range was not used to interpret this result as normal/abnormal . UA, MICROSCOPIC, REFLEX TO [id number] 00:00:00 Test Item Value Reference Range Interpretation Comments COLOR (test code = YELLOW YELLOW-STRAW 5778-6) APPEARANCE (test code = CLEAR CLEAR 5767-9) SPECIFIC GRAVITY (test 1.012 1.005-1.035 code = 5811-5) LEUKOCYTE ESTERASE NEGATIVE NEGATIVE (test code = 5799-2) NITRITE (test code = NEGATIVE NEGATIVE 5802-4) pH (test code = 5803-2) 5.5 5.0-9.0 PROTEIN (test code = 3+ NEGATIVE A 40537-1) GLUCOSE (test code = TRACE NEGATIVE A 5792-7) KETONES (test code = NEGATIVE NEGATIVE 5797-6) UROBILINOGEN (test code 0.2 MG/DL See_Comment [Au tomated message] = 38514-6) The system ic h generated this result transmitted ref erence range: <=2.0 MG /DL. The reference r jorge alberto was not used to interpret this result as normal/abnor mal. BILIRUBIN (test code = NEGATIVE NEGATIVE 5770-3) OCCULT BLOOD (test code TRACE NEGATIVE A = 97342-3) WHITE BLOOD CELLS (test 0-5 /HPF See_Comment [Au tomated message] code = 55987-9) The system [facility] generated this result transmitted ref erence range: 0-5 /HPF . The reference range was not used to int erpret this result as normal/abnormal . RED BLOOD CELLS (test 0-2 /HPF See_Comment [Auto mated message] code = 49370-6) The system [facility] generated this result transmitted ref erence range: 0-5 /HPF . The reference range was not used to int erpret this result as normal/abnormal . EPITHELIAL CELLS (test 0-5 /HPF See_Comment [Aut omated message] code = 17920-2) The system [facility] generated this result transmitted ref erence range: 0-5 /HPF . The reference range was not used to int erpret this result as normal/abnormal . BACTERIA (test code = NONE SEEN NONE SEEN 03215-9) CASTS, HYALINE (test NONE SEEN NONE-TRACE code = 33461-4) LIPID PANEL WITH REFLEX DIRECT [id number] 00:00:00 Test Item Value Reference Range Interpretation Comments CHOLESTEROL (test code 98 MG/DL See_Comment [Aut omated message] = 2093-3) The system [facility] generated this result transmit antonia reference range : <200 MG/DL. The reference range was not used to interpret this result as normal/abnormal . TRIGLYCERIDES (test 61 MG/DL See_Comment [Automa antonia message] code = 2571-8) The system [facility] generated this result transmit antonia reference range : <150 MG/DL. The reference range was not used to interpret this result as normal/abnormal . HDL CHOLESTEROL (test 45 MG/DL See_Comment [Auto mated message] code = 2085-9) The system [facility] generated this result transmit antonia reference range : >39 MG/DL. The refe rence range was not u sed to interpret th is result as normal/abnormal . CALC LDL CHOL (test 39 MG/DL See_Comment [Automa antonia message] code = 30721-1) The system [facility] generated this result transmit antonia reference range : <100 MG/DL. The reference range was not used to interpret this result as normal/abnormal . RISK RATIO LDL/HDL 0.87 RATIO See_Comment [Automat ed message] (test code = 96839-2) The sy stem which generated this result transmit antonia reference range : <3.55 RATIO. Th e reference range was not used to interpret this result as normal/abnormal . ALBUMIN/CREATININE RATIO, RANDOM [id number] 00:00:00 Test Item Value Reference Range Interpretation Comments CREATININE, URINE, 49.8 MG/DL NOT ESTAB MG/DL CONC. (test code = 2161-8) ALBUMIN, URINE, 174.6 MG/DL NOT ESTAB MG/DL RANDOM (test code = 72165-4) CALC ALBUMIN/CREAT, 3506 MG/G See_Comment H [Automa antonia message] RND (test code = The system [facility] 09050-5) generated this result transmitted ref erence range: <30 MG/G . The reference range was not used to interpr et this result as normal/abnormal . COMPREHENSIVE METABOLIC [id number] 00:00:00 Test Item Value Reference Range Interpretation Comments GLUCOSE (test code = 233 MG/DL See_Comment H [Autom ated message] 1558-6) The system [facility] generated this result transmit antonia reference range : 70-99 MG/DL. Th e reference range was not used to interpret this result as normal/abnormal . BUN (test code = 37 MG/DL See_Comment H [Automated message] 3094-0) The system [facility] generated this result transmit antonia reference range : 8-23 MG/DL. The reference range was not used to interpret this result as normal/abnormal . CREATININE (test 2.45 MG/DL See_Comment H [Automated message] code = 2160-0) The system [employer] generated this result transmit antonia reference range : 0.80-1.40 MG/DL . The reference range was not used to interpret this result as normal/abnormal . eGFR (2020 CKD-EPI) 29 ML/MIN/1.73 See_Comment L [Auto mated message] (test code = The system [facility] 85806-7) generated this result transmit antonia reference range : >60 ML/MIN/1.73. Th e reference range was not used to interpret this result as normal/abnormal . CALC BUN/CREAT (test 15 RATIO See_Comment [Autom ated message] code = 3097-3) The system [employer] generated this result transmit antonia reference range : 6-28 RATIO. The reference range was not used to interpret this result as normal/abnormal . SODIUM (test code = 143 MEQ/L See_Comment [Automa antonia message] 2951-2) The system [facility] generated this result transmit antonia reference range : 133-146 MEQ/L. The reference range was not used to interpret this result as normal/abnormal . POTASSIUM (test code 5.6 MEQ/L See_Comment H [Autom ated message] = 9323-3) The system [facility] generated this result transmit antonia reference range : 3.5-5.4 MEQ/L. The reference range was not used to interpret this result as normal/abnormal . CHLORIDE (test code 109 MEQ/L See_Comment H [Automa antonia message] = 2065-0) The system [facility] generated this result transmit antonia reference range : 95-107 MEQ/L. T he reference range was not used to interpret this result as normal/abnormal . CARBON DIOXIDE (test 23 MEQ/L See_Comment [Autom ated message] code = 1963-8) The system [facility] generated this result transmit antonia reference range : 19-31 MEQ/L. Th e reference range was not used to interpret this result as normal/abnormal . CALCIUM (test code = 9.1 MG/DL See_Comment [Autom ated message] 04961-5) The system [facility] generated this result transmit antonia reference range : 8.5-10.5 MG/DL. The reference range was not used to interpret this result as normal/abnormal . PROTEIN, TOTAL (test 7.5 G/DL See_Comment [Autom ated message] code = 2885-2) The system [facility] generated this result transmit antonia reference range : 6.1-8.3 G/DL. T he reference range was not used to interpret this result as normal/abnormal . ALBUMIN (test code = 3.8 G/DL See_Comment [Autom ated message] 1751-7) The system [facility] generated this result transmit antonia reference range : 3.5-5.2 G/DL. T he reference range was not used to interpret this result as normal/abnormal . CALC GLOBULIN (test 3.7 G/DL See_Comment [Automa antonia message] code = 44446-1) The system [facility] generated this result transmit anotnia reference range : 1.9-3.7 G/DL. T he reference range was not used to interpret this result as normal/abnormal . CALC A/G RATIO (test 1.0 RATIO See_Comment [Autom ated message] code = 1759-0) The system [facility] generated this result transmit antonia reference range : 1.0-2.6 RATIO. The reference range was not used to interpret this result as normal/abnormal . BILIRUBIN, TOTAL 0.4 MG/DL See_Comment [Automated message] (test code = 1974-) The [facility] tem which generated this result transmit antonia reference range : <=1.2 MG/DL. Th e reference range was not used to interpret this result as normal/abnormal . ALKALINE PHOSPHATASE 166 U/L See_Comment H [Autom ated message] (test code = 6768-6) The [facility] tem which generated this result transmit antonia reference range : 40-123 U/L. The reference range was not used to interpret this result as normal/abnormal . AST (test code = 17 U/L See_Comment [Automated message] 1919-) The system [facility] generated this result transmit antonia reference range : 9-50 U/L. The reference range was not used to interpret this result as normal/abnormal . ALT (test code = 13 U/L See_Comment [Automated message] 043-) The system [facility] generated this result transmit antonia reference range : 5-50 U/L. The reference range was not used to interpret this result as normal/abnormal .
--- NOTE | 2022-04-24 18:19 | RAD REPORT ---
EXAM DESCRIPTION: Kellie Single View04/24/2022 6:05 pm CLINICAL HISTORY: Shortness of breath COMPARISON: 2020 FINDINGS: A small to moderate left pleural effusion without significant change Lungs appear clear of acute infiltrate. Heart is mildly enlarged. Postsurgical changes involve the chest. Pacemaker lead in place
[2022-04-24 20:08] LABS: Absolute Lymphocytes (CBC) 0.6 K/uL (0.7-4.9); Hematocrit 31.5 % (39.6-49.0); Lymphocytes % 13.8 % (15.3-44.8); MCV 86.8 fL (80-100); MPV 8.8 fL (7.6-11.3); RBC Red Blood Cell Count 3.63 M/uL (4.33-5.43)
[2022-04-24 20:15] LABS: Protime INR 1.23
[2022-04-24 20:31] LABS: Magnesium 1.9 mg/dL (1.6-2.4); Potassium 4.1 mmol/L (3.5-5.1); Troponin High Sensitivity 19.1 pg/mL (<58.9)
[2022-04-24] MEDS ORDERED: FUROSEMIDE 20 MG/ 2ML VIAL ONE ×2 (20:51→23:13)
[2022-04-24 20:55] LABS: SARS-COV-2 RT PCR POSITIVE (NEGATIVE)
--- NOTE | 2022-04-24 20:56 | ER ---
Nurse's Notes [facility] Name: Srinivasa Hernandez Age: 61 yrs Sex: Male : 1960 Arrival Date: 04/24/2022 Time: 16:46 Bed 13 Private MD: Diagnosis: Unspecified combined systolic (congestive) and diastolic (congestive) heart failure;Dyspnea;Unspecified kidney failure Presentation: 04/24 17:30 Chief complaint: Patient states: SOB x 3 days. PT states he has a hx of CHF and this ss feels like an exacerbation. Denies fever. Coronavirus screen: Client presents with at least one sign or symptom that may indicate coronavirus-19. Ebola Screen: Patient denies exposure to infectious person. Patient denies travel to an Ebola-affected area in the 21 days before illness onset. Initial Sepsis Screen: Does the patient meet any 2 criteria? No. Patient's initial sepsis screen is negative. Does the patient have a suspected source of infection? No. Patient's initial sepsis screen is negative. Risk Assessment: Do you want to hurt yourself or someone else? Patient reports no desire to harm self or others. Onset of symptoms was April 22, 2022. 17:30 Method Of Arrival: Ambulatory ss 17:30 Acuity: MARILUZ 3 ss Triage Assessment: 04/25 08:11 Respiratory: ha1 Historical: - Allergies: 04/24 17:32 No Known Allergies; ss - PMHx: 17:32 Diabetes - IDDM; Hypertension; Myocardial infarction; ss - PSHx: 17:32 defib; triple bypass; ss - Immunization history:: Client reports having NOT received the Covid vaccine. - Social history:: Smoking status: Patient reports the use of cigarette tobacco products, denies chronic smoking, but will smoke occasionally. Screenin/03 00:15 Abuse screen: Denies threats or abuse. Denies injuries from another. ha1 00:15 Nutritional screening: No deficits noted. Tuberculosis screening: No symptoms or risk ha1 factors identified. 07:00 [facility] ED Fall Risk Assessment (Adult) History of falling in the last 3 months, kc6 including since admission No falls in past 3 months (0 pts) Confusion or Disorientation No (0 pts) Intoxicated or Sedated No (0 pts) Impaired Gait No (0 pts) Mobility Assist Device Used No (0 pt) Altered Elimination No (0 pt) Score/Fall Risk Level 0 - 2 = Low Risk Oriented to surroundings, Maintained a safe environment, Educated pt \T\ family on fall prevention, incl call for assistance when getting out of bed, Assessed \T\ reinforced patient's understanding of fall precautions, Hourly rounding (assess needs \T\ fall precautionary measures) done. Assessment: 04/24 20:58 General: Appears in no apparent distress. uncomfortable, Behavior is calm, cooperative, kr3 appropriate for age. Neuro: Level of Consciousness is awake, alert, obeys commands, Oriented to person, place, time, situation. Cardiovascular: Patient's skin is warm and dry. Respiratory: Airway is patent Respiratory effort is even, labored, Respiratory pattern is regular, symmetrical. GI: Abdomen is round non-distended. : No signs and/or symptoms were reported regarding the genitourinary system. EENT: No signs and/or symptoms were reported regarding the EENT system. Derm: No signs and/or symptoms reported regarding the dermatologic system. Musculoskeletal: Swelling present in lower left leg. 04/25 00:15 General: Appears comfortable, Behavior is calm, cooperative. Pain: Denies pain. Neuro: ha1 Level of Consciousness is awake, alert, obeys commands, Oriented to person, place, time, situation. Cardiovascular: Reports shortness of breath, Heart tones S1 S2 present Patient's skin is warm and dry. Respiratory: Airway is patent Respiratory effort is even, unlabored, Respiratory pattern is regular, symmetrical, Breath sounds are clear bilaterally. GI: No signs and/or symptoms were reported involving the gastrointestinal system. Abdomen is round non-distended. : No signs and/or symptoms were reported regarding the genitourinary system. EENT: No deficits noted. No signs and/or symptoms were reported regarding the EENT system. Derm: Skin is healthy with good turgor, Skin is dry, Skin is normal. Musculoskeletal: Circulation, motion, and sensation intact. 02:15 Reassessment: Patient and/or family updated on plan of care and expected duration. Pain ha1 level reassessed. Patient is alert, oriented x 3, equal unlabored respirations, skin warm/dry/pink. Patient denies pain at this time. 03:15 Reassessment: Patient and/or family updated on plan of care and expected duration. Pain ha1 level reassessed. Patient is alert, oriented x 3, equal unlabored respirations, skin warm/dry/pink. Patient denies pain at this time. 07:00 Reassessment: please see [facility] for further charting. kc6 12:19 Reassessment: attempted to call report to fourth floor. on old for 5min, no answer. kc6 Vital Signs: 04/24 17:30 BP 118 / 78; Pulse 74; Resp 18; Temp 98.5(TE); Pulse Ox 100% on R/A; Weight 77.11 kg; ss Height 5 ft. 9 in. (175.26 cm); Pain 0/10; 20:17 BP 107 / 70; Pulse 75; Resp 22; Pulse Ox 99% on R/A; kr3 04/25 00:15 BP 134 / 87; Pulse 73; Resp 20 S; Pulse Ox 100% on R/A; ha1 01:15 BP 143 / 87; Pulse 73; Resp 20 S; Pulse Ox 100% on R/A; ha1 02:15 BP 124 / 78; Pulse 73; Resp 20 S; Pulse Ox 100% on R/A; ha1 03:15 BP 126 / 73; Pulse 73; Resp 20 S; Pulse Ox 99% on R/A; ha1 04:00 BP 138 / 80; Pulse 73; Resp 19 S; Pulse Ox 99% on R/A; ha1 04/24 17:30 Body Mass Index 25.10 (77.11 kg, 175.26 cm) ED Course: 04/24 16:46 Patient arrived in ED. mr 16:46 Rich Friedn PA is PHCP. cp 16:46 Chyna Trinidad MD is Attending Physician. cp 17:32 Triage completed. ss 17:32 Arm band placed on right wrist. ss 18:07 XRAY Chest (1 view) In Process Unspecified. EDMS 19:12 Efrain Piper, CATHY is Primary Nurse. as6 19:20 Primary Nurse role handed off by Efrain Piper, CATHY mw2 19:26 Debbi Faustin, CATHY is Primary Nurse. kr3 19:35 Rich Ramirez MD is Attending Physician. cp 19:58 Inserted saline lock: 22 gauge in left antecubital area, using aseptic technique. Blood kr3 collected. 20:55 Popeye, Justice, MD is Hospitalizing Provider. cp 21:50 US Extremity Venous W Compression Dontrell In Process Unspecified. EDMS 04/25 00:15 Patient has correct armband on for positive identification. Placed in gown. Bed in low ha1 position. Call light in reach. Side rails up X 1. 00:15 No provider procedures requiring assistance completed. Patient admitted, IV remains in ha1 place. Administered Medications: 04/24 20:54 Drug: Lasix (furosemide) 20 mg Route: IVP; Site: right wrist; kr3 04/25 10:39 Follow up: Response: No adverse reaction kc6 04/24 23:00 Drug: Lasix (furosemide) 20 mg Route: IVP; Site: right hand; ha1 04/25 00:15 Follow up: Response: No adverse reaction ha1 Medication: 10:39 VIS not applicable for this client. kc6 Outcome: 04/24 20:56 Decision to Hospitalize by Provider. cp 04/25 00:15 Admitted to ER Hold. Please see [facility] for further documentation. ha1 Condition: stable Discharge instructions given to patient, Instructed on the need for admit, Demonstrated understanding of instructions. 12:31 Admitted to Med/surg accompanied by tech, via stretcher, room 402, with chart, Report kc6 called to Cierra Penaloza RN 12:52 Patient left the ED. kc6 Signatures: Dispatcher [employer] [facility] Ana WatsonDuyen RN RN ss Rich Friend PA PA cp Samy Ballard mw2 Efrain Piper RN RN as6 Deonna Montano RN RN ha1 Debbi Faustin RN RN kr3 Hallie Daily RN RN kc6 Corrections: (The following items were deleted from the chart) 04/24 17:34 17:32 PMHx: lifevest in place; ss ss 19:12 17:30 Chief complaint: Patient states: SOBO x 3 days. PT states he has a hx of CHF and ss this feels like an exacerbation. Denies fever ss
--- NOTE | 2022-04-24 20:57 | EDPHYS ---
Physician Documentation [facility] Name: Srinivasa Hernandez Age: 61 yrs Sex: Male : 1960 Arrival Date: 04/24/2022 Time: 16:46 Bed 13 Private MD: ED Physician Rich Ramirez HPI: 04/24 17:35 This 61 yrs old Male presents to ER via Ambulatory with complaints of cp Breathing Difficulty. 17:35 The patient has shortness of breath that woke him/her from sleep. cp 04/25 17:35 Onset: The symptoms/episode began/occurred 3 day(s) ago. Duration: The symptoms are cp continuous, and are steadily getting worse. The patient's shortness of breath is aggravated by exertion, supine position. 17:35 Associated signs and symptoms: Pertinent negatives: chest pain, productive cough, cp diaphoresis, fever, hemoptysis, numbness in extremities, vomiting. Severity of symptoms: in the emergency department the symptoms are unchanged despite home interventions. Historical: - Allergies: 04/24 17:32 No Known Allergies; ss - PMHx: 17:32 Diabetes - IDDM; Hypertension; Myocardial infarction; ss - PSHx: 17:32 defib; triple bypass; ss - Immunization history:: Client reports having NOT received the Covid vaccine. - Social history:: Smoking status: Patient reports the use of cigarette tobacco products, denies chronic smoking, but will smoke occasionally. ROS: 17:40 Constitutional: Negative for body aches, chills, fever, poor PO intake. cp 17:40 Eyes: Negative for injury, pain, redness, and discharge. cp 17:40 ENT: Negative for drainage from ear(s), ear pain, sore throat, difficulty swallowing, difficulty handling secretions. 17:40 Cardiovascular: Positive for edema, Negative for chest pain, palpitations. 17:40 Respiratory: Positive for orthopnea, shortness of breath, on exertion. Negative for cough, wheezing. 17:40 Abdomen/GI: Negative for abdominal pain, nausea, vomiting, and diarrhea, constipation. 17:40 Skin: Negative for cellulitis, rash. 17:40 Neuro: Negative for altered mental status, dizziness, headache, syncope, weakness. 17:40 All other systems are negative. cp Exam: 17:45 Constitutional: The patient appears in no acute distress, alert, awake, cp non-diaphoretic, non-toxic, well developed, well nourished. 17:45 Head/Face: Normocephalic, atraumatic. cp 17:45 Eyes: Periorbital structures: appear normal, Conjunctiva: normal, no exudate, no injection, Sclera: no appreciated abnormality, Lids and lashes: appear normal, bilaterally. 17:45 ENT: External ear(s): are unremarkable, Nose: is normal, Mouth: Lips: moist, Oral mucosa: pink and intact, moist, Posterior pharynx: Airway: no evidence of obstruction, patent, swelling, is not appreciated, erythema, is not appreciated, exudate, is not appreciated. 17:45 Neck: ROM/movement: is normal, is supple, without pain, no range of motions limitations, no meningismus. 17:45 Chest/axilla: Inspection: normal. 17:45 Cardiovascular: Rate: normal, Rhythm: regular, Edema: ankle edema, that is moderate, JVD: is not appreciated. 17:45 Respiratory: the patient does not display signs of respiratory distress, Respirations: labored breathing, is not present, intercostal retractions, are absent, shallow respirations, are not present. 17:45 Abdomen/GI: Inspection: distension, that is mild, Bowel sounds: active, all quadrants, Palpation: abdomen is soft and non-tender, in all quadrants. 17:45 Back: pain, is absent, ROM is normal. 17:45 Skin: cellulitis, is not appreciated, no rash present. 17:45 Neuro: Orientation: to person, place \T\ time. Mentation: is normal, Motor: moves all fours, strength is normal, Sensation: is normal. 20:02 ECG was reviewed by the Attending Physician. cp Vital Signs: 17:30 BP 118 / 78; Pulse 74; Resp 18; Temp 98.5(TE); Pulse Ox 100% on R/A; Weight 77.11 kg; ss Height 5 ft. 9 in. (175.26 cm); Pain 0/10; 20:17 BP 107 / 70; Pulse 75; Resp 22; Pulse Ox 99% on R/A; kr3 01/03 00:15 BP 134 / 87; Pulse 73; Resp 20 S; Pulse Ox 100% on R/A; ha1 01:15 BP 143 / 87; Pulse 73; Resp 20 S; Pulse Ox 100% on R/A; ha1 02:15 BP 124 / 78; Pulse 73; Resp 20 S; Pulse Ox 100% on R/A; ha1 03:15 BP 126 / 73; Pulse 73; Resp 20 S; Pulse Ox 99% on R/A; ha1 04:00 BP 138 / 80; Pulse 73; Resp 19 S; Pulse Ox 99% on R/A; ha1 04/24 17:30 Body Mass Index 25.10 (77.11 kg, 175.26 cm) ss MDM: 04/24 17:35 Patient medically screened. cp 18:00 Differential diagnosis: CHF exacerbation, Chronic Obstructive Pulmonary Disease cp Myocardial Infarction pneumonia, Pneumothorax pulmonary edema, Pulmonary Embolism Sepsis Unstable Angina. 20:40 Data reviewed: vital signs, nurses notes, lab test result(s), EKG, radiologic studies, cp plain films. 20:40 Antibiotic administration: Not indicated, the patient does not have an appreciated cp infiltrate. Test interpretation: by ED physician or midlevel provider: ECG, plain radiologic studies. Counseling: I had a detailed discussion with the patient and/or guardian regarding: the historical points, exam findings, and any diagnostic results supporting the discharge/admit diagnosis, lab results, radiology results, the need for further work-up and treatment in the hospital. Physician consultation: Ludin TAYLOR was called at 20:40, was contacted at 20:40, regarding admission, to the telemetry unit. patient's condition, and will see patient in ED, shortly. 04/24 17:35 Order name: Basic Metabolic Panel; Complete Time: 20:33 cp 04/24 20:33 Interpretation: Normal except: GLUC 166; BUN 55; CRE 3.13; GFR 22; CA 8.4. cp 04/24 17:35 Order name: CBC with Diff; Complete Time: 20:14 cp 04/24 20:14 Interpretation: Normal except: RBC 3.63; HGB 10.4; HCT 31.5; RDW 18.3; ROSE% 75.7; LYM% cp 13.8; LYMA 0.6. 04/24 17:35 Order name: Magnesium; Complete Time: 20:33 cp 04/24 17:35 Order name: NT PRO-BNP; Complete Time: 20:33 cp 04/24 20:34 Interpretation: Abnormal: NT PRO-BNP 99349. cp 04/24 17:35 Order name: PT-INR; Complete Time: 20:33 cp 04/24 17:35 Order name: Troponin HS; Complete Time: 20:33 cp 04/24 17:35 Order name: COVID-19/FLU A+B; Complete Time: 21:41 cp 04/25 03:29 Order name: Comprehensive Metabolic Panel EDMS 04/25 03:29 Order name: Magnesium EDMS 04/25 03:31 Order name: Troponin High Sensitivity EDMS 04/25 03:46 Order name: CBC with Automated Diff EDMS 04/25 04:05 Order name: Hemoglobin A1c EDMS 04/25 08:06 Order name: Glucose, Ancillary Testing EDMS 04/25 08:52 Order name: Troponin High Sensitivity EDMS 04/24 17:35 Order name: XRAY Chest (1 view); Complete Time: 20:14 cp 04/24 17:35 Order name: EKG; Complete Time: 17:35 cp 04/24 17:35 Order name: Cardiac monitoring; Complete Time: 20:08 cp 04/24 17:35 Order name: EKG - Nurse/Tech; Complete Time: 19:58 cp 04/24 17:35 Order name: IV Saline Lock; Complete Time: 20:04 cp 04/24 17:35 Order name: Labs collected and sent; Complete Time: 20:05 cp 04/24 17:35 Order name: O2 Per Protocol; Complete Time: 20:04 cp 04/24 17:35 Order name: O2 Sat Monitoring; Complete Time: 20:05 cp 04/24 20:52 Order name: Extremity Venous W Compression Dontrell cp 04/25 09:14 Order name: US EDMS 04/25 10:00 Order name: Glucose, Ancillary Testing EDMS 04/25 11:34 Order name: Glucose, Ancillary Testing EDMS EC:02 Rate is 72 beats/min. Rhythm is regular. VT interval is normal. QRS interval is cp prolonged at 134 msec. QT interval is normal. T waves are Inverted in leads aVL, aVR. Interpreted by me. Reviewed by me. Administered Medications: 20:54 Drug: Lasix (furosemide) 20 mg Route: IVP; Site: right wrist; kr3 04/25 10:39 Follow up: Response: No adverse reaction 6 04/24 23:00 Drug: Lasix (furosemide) 20 mg Route: IVP; Site: right hand; ha1 04/25 00:15 Follow up: Response: No adverse reaction ha1 Disposition Summary: 04/24/22 20:56 Hospitalization Ordered Hospitalization Status: Inpatient Admission cp Provider: Justice Nye cp Condition: Stable cp Problem: an acute exacerbation cp Symptoms: are unchanged cp Bed/Room Type: Standard cp Location: Telemetry/MedSurg (Inpatient)(04/25/22 12:02) bd Room Assignment: [facility](04/25/22 12:02) bd Diagnosis - Unspecified combined systolic (congestive) and diastolic (congestive) heart failure cp - Dyspnea cp - Unspecified kidney failure cp Forms: - Medication Reconciliation Form cp - SBAR form cp Signatures: Dispatcher [employer] EDMS Evelyne Khan Brenda RN Duyen Rao RN RN Ludin Pickering, [employer] [employer]-Cla1 Rich Friend PA PA cp Deonna Montano RN RN 1 Debbi Faustin RN RN kr3 Hallie Daily RN [id number] Corrections: (The following items were deleted from the chart) 04/24 17:34 17:32 PMHx: lifevest in place; ss ss 23:03 20:56 Telemetry/MedSurg (Inpatient) cp bb 23:03 20:56 cp bb 04/25 12:02 04/24 23:03 [facility] ER HOLD bb bd 04/25 12:02 04/24 23:03 ERHOLD- bb bd 04/26 10:04 04/24 17:40 All other systems are negative, cp cp
--- NOTE | 2022-04-24 21:49 | P.HP ---
Certification for Inpatient Patient admitted to: Inpatient With expected LOS: >2 Midnights Patient will require the following post-hospital care: None Practitioner: I am a practitioner with admitting privileges, knowledge of patient current condition, hospital course, and medical plan of care. Services: Services provided to patient in accordance with Admission requirements found in Title 42 Section 412.3 of the Code of Federal Regulations <Ludin Pickering - Last Filed: 04/24/22 22:18> Patient History Date of Service: 04/24/22 Primary Care Provider: Dr. Rodriguez Reason for admission: CHF exacerbation History of Present Illness: 61-year-old male with history of chronic systolic congestive heart failure, insulin-dependent diabetes, CKD 4, CAD with pacemaker/fibrillator and previous CABG, hyperlipidemia presents emergency department for dyspnea, orthopnea, pedal edema. He reports he has been compliant with his home dose of Lasix and other medications noticed increasing edema, shortness of breath over the course last 1 week. His labs in the emergency department showed a BNP of 15,882, creatinine 3.13, GFR 22, BUN 55 chest x-ray showed small to moderate left pleural effusion without significant change. Lungs appear clear of acute infiltrate. ED provider wishes to admit for further evaluation and management of CHF exacerbation, KENYA on CKD. 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 - Family History Mother -: Heart disease, Lung disease - Social History Smoking Status: Former smoker Alcohol use: Yes CD- Drugs: No Caffeine use: No Place of Residence: Home <Ludin Pickering - Last Filed: 04/24/22 22:18> Date of Service: 04/25/22 <Justice Nye - Last Filed: 04/25/22 18:21> Allergies No Known Drug Allergies Allergy (Verified 12/24/19 23:03) Unknown Home Medications: RX: Aspirin [Aspir-Low] 81 mg PO DAILY 06/22/18 RX: Atorvastatin Calcium [Lipitor] 80 mg PO DAILY 06/22/18 RX: Clopidogrel Bisulfate [Plavix*] 75 mg PO DAILY 06/22/18 RX: Insulin Degludec [Tresiba Flextouch U-100] 24 unit SQ DAILY 06/22/18 RX: Metoprolol Succinate 1 tab PO DAILY 06/22/18 RX: Nitroglycerin [Nitrostat*] 0.4 mg SL PRN PRN 06/22/18 RX: lisinopriL [Lisinopril] 1 tab PO DAILY 06/22/18 RX: Spironolactone 25 mg PO DAILY 12/25/19 RX: Pantoprazole Sodium [Protonix] 40 mg PO DAILY 30 Days #30 tablet. 12/27/19 RX: Furosemide 1 tab PO PRN PRN 30 Days #30 tab 02/19/21 Review of Systems 10-point ROS is otherwise unremarkable Respiratory: Cough, Shortness of Breath Cardiovascular: Orthopnea, Edema <Ludin Pickering - Last Filed: 04/24/22 22:18> Physical Examination - Physical Exam General: Alert, In no apparent distress, Oriented x3 HEENT: Atraumatic, PERRLA, Mucous membr. moist/pink, EOMI, Sclerae nonicteric Neck: Supple, 2+ carotid pulse no bruit, No LAD, Without JVD or thyroid abnormality Respiratory: Diminished, Crackles/rales Cardiovascular: Regular rate/rhythm, Normal S1 S2, Edema (4+ pitting edema, ASTRID LE) Capillary refill: <2 Seconds Gastrointestinal: Normal bowel sounds, No tenderness Musculoskeletal: No tenderness Integumentary: No rashes Neurological: Normal speech, Normal strength at 5/5 x4 extr, Normal tone, Normal affect - Studies Laboratory Data (last 24 hrs) 04/24/22 19:58: PT 13.5 H, INR 1.23 04/24/22 19:58: WBC 4.40, Hgb 10.4 L, Hct 31.5 L, Plt Count 241 04/24/22 19:58: Sodium 137, Potassium 4.1, BUN 55 H, Creatinine 3.13 H, Glucose 166 H, Magnesium 1.9 <Ludin Pickering - Last Filed: 04/24/22 22:18> - Studies Laboratory Data (last 24 hrs) 04/24/22 19:58: PT 13.5 H, INR 1.23 04/24/22 19:58: WBC 4.40, Hgb 10.4 L, Hct 31.5 L, Plt Count 241 04/24/22 19:58: Sodium 137, Potassium 4.1, BUN 55 H, Creatinine 3.13 H, Glucose 166 H, Magnesium 1.9 <Justice Nye - Last Filed: 04/25/22 18:21> Assessment and Plan - Plan Assessment: Acute on chronic systolic congestive heart failure S/P pacemaker/defibrillator CAD S/P CABG KENYA on CKD 4 Diabetes mellitus type 2insulin-dependent Hypertension Hyperlipidemia Plan: Acute on chronic systolic congestive heart failure S/P pacemaker/defibrillator: Continue diuresis with IV Lasix, cardiology consult in place. Echocardiogram ordered. Nephrology also to be consulted given KENYA/CKD 4. CAD S/P CABG: Continue home medications, monitor on telemetry. Also trending troponin. KENYA on CKD 4: Nephrology consult in place, suspect CRS, continue diuresis. Renal ultrasound ordered. Diabetes mellitus type 2insulin-dependent: Patient reports that he is prescribed Tresiba 24 units daily but he has not been checking his sugar or taking his insulin routinely. Blood sugar only mildly elevated at this time. Will obtain A1c in the morning treat with sliding scale insulin for now. Hypertension: Continue home meds. Hyperlipidemia: Continue home meds. DVT PPX: Lovenox Code status: Full Discharge Plan: Home Plan to discharge in: 48 Hours - Advance Directives Does patient have a Living Will: No Does patient have a Durable POA for Healthcare: No - Code Status/Comfort Care Code Status Assessed: Yes (Full code) Critical Care: No Time Spent Managing Pts Care (In Minutes): 55 <Ludin Pickering - Last Filed: 04/24/22 22:18> Physician Review: Patient Assessed, Agree with Above Assessment and Plan <Justice Nye - Last Filed: 04/25/22 18:21>
--- NOTE | 2022-04-24 22:10 | RAD REPORT ---
EXAM DESCRIPTION: USExtrem Venous W Compress Bil04/24/2022 9:49 pm CLINICAL HISTORY: Leg swelling COMPARISON: 2019 FINDINGS: The common femoral, superficial femoral, greater saphenous, popliteal and posterior tibial veins bilaterally are compressible and demonstrate augmentation. Doppler demonstrates good flow. Grayscale, color and spectral analysis performed on all vessels IMPRESSION: No evidence of deep venous thrombosis involving either lower extremity.
[2022-04-25] MEDS ORDERED: ACETAMINOPHEN 500 MG TAB PO PRN (01:44)
[2022-04-25] MEDS: FUROSEMIDE 40 MG/4 ML VIAL IV SCH ×2 (01:44→08:21)
[2022-04-25] MEDS ORDERED: ONDANSETRON 4 MG/2 ML VIAL IV PRN (01:44)
[2022-04-25] MEDS ORDERED: FUROSEMIDE 40 MG/4 ML VIAL ONE ×2 (01:58→08:05)
[2022-04-25 03:11] LABS: Absolute Lymphocytes (CBC) 0.7 K/uL (0.7-4.9); Lymphocytes % 13.6 % (15.3-44.8); MCV 85.9 fL (80-100); MPV 8.9 fL (7.6-11.3); RBC Red Blood Cell Count 3.38 M/uL (4.33-5.43)
[2022-04-25 03:29] LABS: Albumin 2.9 g/dL (3.4-5.0); Bilirubin Total 0.4 mg/dL (0.2-1.0); Magnesium 1.8 mg/dL (1.6-2.4); Potassium 4.1 mmol/L (3.5-5.1); Protein, Total 7.7 g/dL (6.4-8.2)
[2022-04-25] MEDS: INSULIN -REGULAR HUMAN 50 UNIT/0.5 ML ML SQ SCH ×4 (07:30→20:57)
[2022-04-25] MEDS ORDERED: METOPROLOL TAR 50 MG TAB ONE (08:04)
[2022-04-25] MEDS ORDERED: CLOPIDOGREL 75 MG TABLET ONE (08:04)
[2022-04-25] MEDS ORDERED: ASPIRIN EC 81 MG TAB PO ONE (08:04)
[2022-04-25] MEDS ORDERED: HEPARIN 5000 UNIT/ML 1 ML VIAL ONE (08:04)
[2022-04-25] MEDS ORDERED: ATORVASTATIN 20 MG TAB ONE (08:05)
[2022-04-25] MEDS: ASPIRIN EC 81 MG TAB PO SCH (08:21)
[2022-04-25] MEDS: METOPROLOL XL 50 MG TAB PO SCH (08:21)
[2022-04-25] MEDS: HEPARIN 5000 UNIT/ML 1 ML VIAL SQ SCH ×2 (08:21→22:07)
[2022-04-25] MEDS: ATORVASTATIN 80 MG TAB PO SCH (08:21)
[2022-04-25] MEDS: CLOPIDOGREL 75 MG TABLET PO SCH (08:21)
--- NOTE | 2022-04-25 08:31 | EKG ---
Test Date: 2022-04-24 Test Time: 19:55:08 Signs Cleaner: RV MEASUREMENT RESULTS: Intervals: Rate: 72 NJ: 168 QRSD: 134 QT: 426 QTc: 466 [place]: P: 59 NJ: 168 QRS: -70 T: 86 INTERPRETIVE STATEMENTS: Normal sinus rhythm Possible Left atrial enlargement Left axis deviation Nonspecific intraventricular block Cannot rule out Anterior infarct, age undetermined Abnormal ECG Compared to ECG 02/18/2021 10:40:03 Left-axis deviation now present Myocardial infarct finding now present Left anterior fascicular block no longer present T-wave abnormality no longer present Electronically Signed On 04-25-22 08:31:09 HOUSE MOVER HELPER by Gurdeep Whitaker
[2022-04-25] MEDS ORDERED: INFLUENZA VACCINE (for 6+ mo) 0.5 ML DOSE IMVAC ONE (09:00)
--- NOTE | 2022-04-25 09:14 | RAD REPORT ---
EXAM DESCRIPTION: US - Renal Ultrasound-Complete - 04/25/2022 2:21 am CLINICAL HISTORY: Acute renal failure COMPARISON: 2019 FINDINGS: The right kidney measures 10 cm with an increased echotexture. The left kidney measures 11 cm with an increased echotexture. Hydronephrosis is not seen. No gross abnormality of bladder is noted IMPRESSION: Mildly increased renal echotexture may indicate parenchymal disease.
[2022-04-25] MEDS ORDERED: NA CHLORIDE 0.9% 1,000 ML IV SCH (13:00)
--- NOTE | 2022-04-25 14:04 | CON ---
Date of Consultation: 04/25/2022 Reason For Consultation: Elevated BUN and creatinine. History Of Present Illness: This is a 61-year-old gentleman, well known to me from the office with significant past medical history of hypertension, hyperlipidemia, chronic kidney disease used to be stage 3, congestive heart failure ischemic, diabetes complicated with neuropathy. The patient came to the hospital complaining from shortness of breath and leg edema. The patient found to have elevation in BUN and creatinine. For that reason, we have been consulted. The patient denied taking any nonsteroidal. No recent exposure to contrast. The patient apparently at home being on MARIELLE inhibitor and spironolactone with Lasix as needed. The patient during the hospitalization, found to be not on the over volume side. Past Medical History: 1. Chronic kidney disease. 2. Hypertension. 3. Hyperlipidemia. 4. Diabetes complicated with neuropathy. 5. CAD status post CABG, status post ICD, complicated with congestive heart failure. 6. Hyperlipidemia. Allergies: NO KNOWN DRUG ALLERGIES. Home Medications: Include aspirin, atorvastatin, Plavix, metoprolol, nitroglycerin, lisinopril, spironolactone, pantoprazole, and Lasix. Past Surgical History: 1. CABG. 2. Pacemaker placement. 3. Cardiac cath. Family History: Positive for lung disease and CAD. Social History: Ex-smoker. Active alcohol. Denies drug abuse. Review of Systems: Head and Neck: No red eye. No ear pain. GI: No nausea. No vomiting. : No polyuria. No dysuria. No hematuria. SASH FINISHER: Not applicable. Respiratory: Has shortness of breath Cardiovascular: No chest pain. Endocrine: No polydipsia. Skin: No rash. Neuro: Has neuropathy. Musculoskeletal: No joint pain. Physical Examination: Vital Signs: When I saw the patient, the patient sitting in bed, comfortable, not on any distress on room air. Blood pressure 112/43, pulse of 68. Chest: Clear to auscultation. Heart: S1, S2 regular. Abdomen: Soft, nontender. Extremities: No edema. Neuro: Alert. No focality. Laboratory Data: Chest x-ray; cardiomegaly with left-sided pleural effusion with mild congestion. WBC 5.3, H and H 9.6/29. Sodium 140, potassium 4.1, bicarb 26, BUN 60, creatinine 3, GFR 23. Calcium of 8.9, magnesium 1.8, albumin 2.9. Renal ultrasound showing normal size kidney 01/31, increased echogenicity. Assessment And Plan: 1. Acute kidney injury secondary to poor perfusion, acute tubular necrosis, superimposed with MARIELLE inhibitor and over-diuresis, look to me on the dry side. I am going to go ahead and discontinue Lasix. I agree with holding MARIELLE inhibitor and spironolactone. I am going to start the patient on gentle hydration of only 500 of normal saline and we will follow up the patient. 2. I going to go ahead and send for PTH and PC ratio giving the presence of the anemia. We will send for serum protein electrophoresis, and we will follow up the patient closely. 3. Anemia possible secondary to chronic kidney disease. I am going to send for anemia workup and we will send for serum protein electro diuresis. 4. Hypertension, controlled with the presence of acute kidney injury. Hold MARIELLE inhibitor, spironolactone, and Lasix, and we will follow up. 5. Coronary artery disease with congestive heart failure. Currently, patient on the dry side. I am going to hold on the diuresis and we will follow up. 6. Atrial fibrillation, stable. We will follow up with Cardiology. Time spent examining the patient [id number] reviewing data lab and radiology discussing the case with the patient placing order discussing the case with the shipping team leader including nursing discussing the case with the hospitalist more than 35-minute PRAKASH Voice ID: [id number] Report ID: [id number] MTDWill
--- NOTE | 2022-04-25 18:30 | P.PN ---
Subjective Date of Service: 04/25/22 Primary Care Provider: Dr. Rodriguez Chief Complaint: CHF exacerbation No acute events since admission. He reports that his symptoms are mildly improved compared to yesterday. He continues to report shortness of breath and dyspnea. His symptoms are worse when lying flat. Review of Systems 10-point ROS is otherwise unremarkable Respiratory: Shortness of Breath Cardiovascular: Orthopnea, Edema Physical Examination - Vital Signs Temperature: 98.2 F Blood Pressure: 146/84 Pulse: 69 Respirations: 16 Pulse Ox (%): 94 - Physical Exam General: Alert, In no apparent distress, Oriented x3 HEENT: Atraumatic, Mucous membr. moist/pink, EOMI, Sclerae nonicteric Neck: JVD distended Respiratory: Diminished, Crackles/rales (bibasilar) Cardiovascular: Regular rate/rhythm, Normal S1 S2, No gallops, No rubs, No murmurs, Edema (2+ BLE) Gastrointestinal: Normal bowel sounds, Soft and benign, Non-distended, No tenderness, No rebound, No guarding Musculoskeletal: No clubbing Integumentary: No rashes Neurological: Normal speech, Cranial nerves 3-12 intact, Normal affect - Studies Laboratory Data (last 24 hrs) 04/24/22 19:58: PT 13.5 H, INR 1.23 04/24/22 19:58: WBC 4.40, Hgb 10.4 L, Hct 31.5 L, Plt Count 241 04/24/22 19:58: Sodium 137, Potassium 4.1, BUN 55 H, Creatinine 3.13 H, Glucose 166 H, Magnesium 1.9 Assessment And Plan - Plan # Acute on Chronic Decompensated Systolic Congestive Heart Failure with Reduced Ejection Fraction s/p PPM/AICD - Consult Cardiology and spoke with Dr. Whitaker - recommendations appreciated - Ordered transthoracic echocardiogram - Diuresis per Cardiology and Nephrology - Chest x-ray = "A small to moderate left pleural effusion without significant change. Lungs appear clear of acute infiltrate. Heart is mildly enlarged. Postsurgical changes involve the chest. Pacemaker lead in place" - Bilateral lower extremity Doppler = "No evidence of deep venous thrombosis involving either lower extremity" - Continue home metoprolol - NT-Pro BNP = 15,882 - Daily weights - Strict I/O - Cardiac diet, 1.5 L fluid restriction, 2 g Na restriction # KDIGO Stage I Acute Kidney Injury on Chronic Kidney Disease Stage IV - Nephrology consulted and spoke with Dr. Cramer - recommendations appreciated - Creatinine = 3.13 -> 3.03 (creatinine was 2.18 on 02/19/2021) - Urinalysis = pending - Renal ultrasound = "Mildly increased renal echotexture may indicate parenchymal disease." - Monitor creatinine and urine output - Renally dose medications # Coronary Artery Disease s/p CABG # Hypertension # Hyperlipidemia - Continue home aspirin, atorvastatin, metoprolol, clopidogrel - Hold MARIELLE-inhibitor/ARB given KENYA # Type II Diabetes Mellitus - Hgb A1c = 7.9 % - Continue home insulin + correction scale insulin # COVID-19 Infection - Suspect symptoms to be secondary to CHF rather than COVID-19 - Currently doing well on room air - Encouraged incentive spirometry - Isolation precautions Justice Nye M.D.
[2022-04-26 03:56] LABS: Absolute Lymphocytes (CBC) 0.7 K/uL (0.7-4.9); Hematocrit 29.7 % (39.6-49.0); Lymphocytes % 15.3 % (15.3-44.8); MCV 85.9 fL (80-100); MPV 9.1 fL (7.6-11.3); RBC Red Blood Cell Count 3.46 M/uL (4.33-5.43)
[2022-04-26 05:37] LABS: ALT/SGPT 107 U/L (16-61); AST/SGOT 244 U/L (15-37); Albumin 2.7 g/dL (3.4-5.0); Alkaline Phosphatase 157 U/L (45-117); BUN Blood Urea Nitrogen 60 mg/dL (7-18); Bicarbonate 23 mmol/L (21-32); Bilirubin Total 0.5 mg/dL (0.2-1.0); Ferritin 207.3 ng/mL (26-388); Glomerular Filtration Rate 23 ml/min (=/>90); Glucose Level 131 mg/dL (74-106); Magnesium 1.7 mg/dL (1.6-2.4); Phosphorus 3.5 mg/dL (2.5-4.9); Potassium 4.5 mmol/L (3.5-5.1); Protein, Total 7.2 g/dL (6.4-8.2); Sodium Level 137 mmol/L (136-145); Transferrin 243 mg/dL (200-360); Uric Acid 13.4 mg/dL (3.5-7.2)
[2022-04-26 06:18] LABS: Folic Acid, (Folate) 11.7 ng/mL (3.1-17.5)
[2022-04-26] MEDS: INSULIN -REGULAR HUMAN 50 UNIT/0.5 ML ML SQ SCH ×4 (07:30→21:16)
[2022-04-26] MEDS: METOPROLOL XL 50 MG TAB PO SCH (09:40)
[2022-04-26] MEDS: ASPIRIN EC 81 MG TAB PO SCH (09:40)
[2022-04-26] MEDS: ATORVASTATIN 80 MG TAB PO SCH (09:40)
[2022-04-26] MEDS: CLOPIDOGREL 75 MG TABLET PO SCH (09:40)
[2022-04-26] MEDS: HEPARIN 5000 UNIT/ML 1 ML VIAL SQ SCH ×2 (09:40→21:08)
[2022-04-26] MEDS ORDERED: SOD FERRIC GLUC COMPLX/SUCROSE 250 MG in NA CHLORIDE 0.9% 250 ML IV SCH (10:00)
[2022-04-26] MEDS: CALCITROL 0.25 MCG CAP PO SCH (10:23)
--- NOTE | 2022-04-26 13:32 | PN ---
Subjective: Patient is doing better. Patient was admitted with acute kidney injury secondary to overdiuresis. Objective: Vital Signs: Blood pressure 159/75, pulse of 77. Chest: Clear to auscultation. Heart: S1, S2 regular. Abdomen: Soft, nontender. Extremities: No edema. Laboratory Data: Hemoglobin 9.8. Sodium 137, potassium 4.5 bicarb 23, BUN 60, creatinine 3. GFR 23. Uric acid 13.4. Calcium 8.7. Phosphorus 3.5, magnesium 1.7. Iron saturation of 10, ferritin of 207. PTH 249. Current Medications: The patient is on include Plavix, heparin, metoprolol, atorvastatin, Tylenol, Zofran. Assessment And Plan: 1. Acute kidney injury on chronic kidney disease secondary to cardiorenal, prerenal, dehydration, normal size kidney with proteinuria, stable around his baseline currently. I am going to discontinue IV fluid and we will monitor the patient. 2. Hypertension, controlled, optimal. Continue current treatment. 3. Iron deficiency anemia. I will start the patient on IV iron with the presence of chronic kidney disease, we send for serum protein electrophoresis. We will follow up as outpatient. 4. Secondary hyperparathyroidism. Start the patient on calcitriol. We will follow up as outpatient. Phosphorus on the goal. 5. Cardiorenal. Hold spironolactone and Lasix for the time being. We will follow up. Time spent examining the patient [id number] reviewing data lab and radiology discussing the case with the patient placing order discussing the case with the clinical team lead including nursing discussing the case with the hospitalist more than 35-minute PRAKASH Voice ID: [id number] Report ID: [id number] ABHI
--- NOTE | 2022-04-26 14:40 | RAD REPORT ---
EXAM DESCRIPTION: US - Liver Only - 04/26/2022 2:20 pm CLINICAL HISTORY: Abdominal pain COMPARISON: None FINDINGS: The liver has an increased echotexture. Hepatopetal flow. A lesion is not visualized. The spleen measures 10 centimeters Small pleural effusions IMPRESSION: Mildly increased hepatic echotexture may indicate mild fatty infiltration Unremarkable ultrasound spleen
--- NOTE | 2022-04-26 19:29 | P.PN ---
Subjective Date of Service: 04/26/22 Primary Care Provider: Dr. Rodriguez Chief Complaint: CHF exacerbation No acute events overnight. He reports that his symptoms are unchanged compared to yesterday. His liver enzymes are elevated today compared to yesterday. He denies any regular alcohol consumption. Review of Systems 10-point ROS is otherwise unremarkable Respiratory: Shortness of Breath Cardiovascular: Orthopnea Physical Examination - Vital Signs Temperature: 96.8 F Blood Pressure: 150/72 Pulse: 72 Respirations: 16 Pulse Ox (%): 100 Assessment And Plan - Plan - Physical Exam General: Alert, In no apparent distress, Oriented x3 HEENT: Atraumatic, Mucous membr. moist/pink, EOMI, Sclerae nonicteric Neck: JVD not distended Respiratory: Diminished, Crackles/rales (faint bibasilar) Cardiovascular: Regular rate/rhythm, Normal S1 S2, No gallops, No rubs, No murmurs, Edema (1-2+ BLE) Gastrointestinal: Normal bowel sounds, Soft and benign, Non-distended, No tenderness, No rebound, No guarding, No hepatosplenomegaly appreciated Musculoskeletal: No clubbing Integumentary: No rashes Neurological: Normal speech, Cranial nerves 3-12 intact, Normal affect # Acute on Chronic Decompensated Systolic Congestive Heart Failure with Reduced Ejection Fraction s/p PPM/AICD # Elevated LFTs - Congestive Hepatopathy? vs COVID-19 - Consult Cardiology and spoke with Dr. Whitaker - recommendations appreciated - Ordered transthoracic echocardiogram - Diuresis per Cardiology and Nephrology - Chest x-ray = "A small to moderate left pleural effusion without significant change. Lungs appear clear of acute infiltrate. Heart is mildly enlarged. Postsurgical changes involve the chest. Pacemaker lead in place" - Bilateral lower extremity Doppler = "No evidence of deep venous thrombosis involving either lower extremity" - Ordered RUQ ultrasound - Started empiric banana bag - Continue home metoprolol - NT-Pro BNP = 15,882 - Daily weights - Strict I/O - Cardiac diet, 1.5 L fluid restriction, 2 g Na restriction # KDIGO Stage I Acute Kidney Injury on Chronic Kidney Disease Stage IV - Nephrology consulted and spoke with Dr. Cramer - recommendations appreciated - Creatinine = 3.13 -> 3.03 -> 3.00 (creatinine was 2.18 on 02/19/2021) - Urinalysis = pending - Renal ultrasound = "Mildly increased renal echotexture may indicate parenchy mal disease." - Monitor creatinine and urine output - Renally dose medications # Coronary Artery Disease s/p CABG # Hypertension # Hyperlipidemia - Continue home aspirin, atorvastatin, metoprolol, clopidogrel - Hold MARIELLE-inhibitor/ARB given KENYA # Type II Diabetes Mellitus - Hgb A1c = 7.9 % - Continue home insulin + correction scale insulin # COVID-19 Infection - Suspect symptoms to be secondary to CHF rather than COVID-19 - Currently doing well on room air - Encouraged incentive spirometry - Isolation precautions Justice Nye M.D.
[2022-04-27 05:01] LABS: Albumin 2.7 g/dL (3.4-5.0); Bilirubin Total 0.5 mg/dL (0.2-1.0); Phosphorus 3.2 mg/dL (2.5-4.9); Potassium 4.6 mmol/L (3.5-5.1); Protein, Total 7.1 g/dL (6.4-8.2)
--- NOTE | 2022-04-27 07:12 | ECHO ---
HEIGHT: 5 ft 9 in WEIGHT: 170 lb 0 oz DATE OF STUDY: 04/26/[address]: Ludin Pickering NP 2-DIMENSIONAL: YES M.MODE: YES DOPPLER: YES COLOR FLOW: YES TDS: PORTABLE: YES DEFINITY: BUBBLE STUDY: DIAGNOSIS: CONGESTIVE HEART FAILURE, ACUTE KIDNEY INJURY CARDIAC HISTORY: CATHERIZATION: YES SURGERY: YES PROSTHETIC VALVE: NO PACEMAKER: YES MEASUREMENTS (cm) DIASTOLIC (NORMALS) SYSTOLIC (NORMALS) IVSd 1.2 (0.6-1.2) LA Diam 3.6 (1.9-4.0) LVEF 10-15% LVIDd 5.5 (3.5-5.7) LVIDs 4.8 (2.0-3.5) %FS 14% LVPWd 1.3 (0.6-1.2) Ao Diam 2.6 (2.0-3.7) 2 DIMENSIONAL ASSESSMENT: RIGHT ATRIUM: NORMAL LEFT ATRIUM: ENLARGED RIGHT VENTRICLE: PACEMAKER WIRE LEFT VENTRICLE: MILDLY DILATED TRICUSPID VALVE: MODERATE TRICUSPID REGURGITATION MITRAL VALVE: MILD MITRAL REGURGITATION PULMONIC VALVE: NORMAL AORTIC VALVE: NORMAL PERICARDIAL EFFUSION: TRACE AORTIC ROOT: NORMAL LEFT VENTRICULAR WALL MOTION: SEVERE GLOBAL HYPOKINESIS DOPPLER/COLOR FLOW: SEE BELOW COMMENTS: 1. SEVERELY DEPRESSED LEFT VENTRICULAR EJECTION FRACTION 10-15% 2. SEVERE GLOBAL HYPOKINESIS 3. MODERATE TRICUSPID REGURGITATION 4. MILD MITRAL REGURGITATION 5. LEFT ATRIAL ENLARGEMENT 6. SEVERE PULMONARY HYPERTENSION WITH RIGHT VENTRICULAR SYSTOLIC PRESSURE GREATER THAN 70 mmHg AND HIGH FILLING PRESSURE 7. SEVERE DIASTOLIC DYSFUNCTION (RESTRICTIVE) 8. LARGE PLEURAL EFFUSION TECHNOLOGIST: EUGENIO DOWNS
[2022-04-27] MEDS: INSULIN -REGULAR HUMAN 50 UNIT/0.5 ML ML SQ SCH ×4 (07:30→20:04)
[2022-04-27] MEDS: ASPIRIN EC 81 MG TAB PO SCH (08:42)
[2022-04-27] MEDS: CLOPIDOGREL 75 MG TABLET PO SCH (08:42)
[2022-04-27] MEDS: ATORVASTATIN 80 MG TAB PO SCH (08:42)
[2022-04-27] MEDS: HEPARIN 5000 UNIT/ML 1 ML VIAL SQ SCH ×2 (08:42→20:04)
[2022-04-27] MEDS: METOPROLOL XL 50 MG TAB PO SCH (08:42)
[2022-04-27] MEDS: FOLIC ACID 1 MG, MULTIVITAMINS INJ 10 ML, THIAMINE HCL 100 MG in NA CHLORIDE 0.9% 1,000 ML IV SCH ×2 (08:44→11:16)
--- NOTE | 2022-04-27 19:56 | P.PN ---
Subjective Date of Service: 04/27/22 Primary Care Provider: Dr. Rodriguez Chief Complaint: CHF exacerbation No acute events overnight. He reports that his symptoms are currently resolved. However, his liver enzymes remain elevated. Concern for congestive hepatopathy. Plan to continue diuresis per Cardiology + Nephrology. Review of Systems 10-point ROS is otherwise unremarkable Respiratory: Shortness of Breath (improved) Physical Examination - Vital Signs Temperature: 98 F Blood Pressure: 109/54 Pulse: 71 Respirations: 18 Pulse Ox (%): 96 Assessment And Plan - Plan - Physical Exam General: Alert, In no apparent distress, Oriented x3 HEENT: Atraumatic, Mucous membr. moist/pink, EOMI, Sclerae nonicteric Neck: JVD not distended Respiratory: Diminished, Crackles/rales (faint bibasilar) Cardiovascular: Regular rate/rhythm, Normal S1 S2, No gallops, No rubs, No murmurs, Edema (1+ BLE) Gastrointestinal: Normal bowel sounds, Soft and benign, Non-distended, No tenderness, No rebound, No guarding, No hepatosplenomegaly appreciated Musculoskeletal: No clubbing Integumentary: No rashes Neurological: Normal speech, Cranial nerves 3-12 intact, Normal affect # Acute on Chronic Decompensated Systolic Congestive Heart Failure with Reduced Ejection Fraction s/p PPM/AICD # Elevated LFTs - Congestive Hepatopathy? vs COVID-19 vs Statin-Induced - Consult Cardiology and spoke with Dr. Whitaker - recommendations appreciated - Transthoracic echocardiogram = "1. severely depressed left ventricular ejection fraction 10-15% 2. severe global hypokinesis 3. moderate tricuspid regurgitation 4. mild mitral regurgitation 5. left atrial enlargement 6. severe pulmonary hypertension with right ventricular systolic pressure greater than 70 mmhg and high filling pressure 7. severe diastolic dysfunction (restrictive) 8. large pleural effusion" - Diuresis per Cardiology and Nephrology - Chest x-ray = "A small to moderate left pleural effusion without significant change. Lungs appear clear of acute infiltrate. Heart is mildly enlarged. Postsurgical changes involve the chest. Pacemaker lead in place" - Bilateral lower extremity Doppler = "No evidence of deep venous thrombosis involving either lower extremity" - RUQ ultrasound = "Mildly increased hepatic echotexture may indicate mild fatty infiltration. Unremarkable ultrasound spleen" - Started empiric banana bag - Continue home metoprolol - Hold home atorvastatin - Ordered HCV screen - NT-Pro BNP = 15,882 - Daily weights - Strict I/O - Cardiac diet, 1.5 L fluid restriction, 2 g Na restriction # KDIGO Stage I Acute Kidney Injury on Chronic Kidney Disease Stage IV - Nephrology consulted and spoke with Dr. Cramer - recommendations appreciated - Creatinine = 3.13 -> 3.03 -> 3.00 -> 2.99 (creatinine was 2.18 on 02/19/2021) - Urinalysis = pending - Renal ultrasound = "Mildly increased renal echotexture may indicate parenchymal disease." - Monitor creatinine and urine output - Renally dose medications # Coronary Artery Disease s/p CABG # Hypertension # Hyperlipidemia - Continue home aspirin, atorvastatin, metoprolol, clopidogrel - Hold MARIELLE-inhibitor/ARB given KENYA # Type II Diabetes Mellitus - Hgb A1c = 7.9 % - Continue home insulin + correction scale insulin # COVID-19 Infection - Suspect symptoms to be secondary to CHF rather than COVID-19 - Currently doing well on room air - Encouraged incentive spirometry - Isolation precautions Justice Nye M.D.
--- NOTE | 2022-04-27 23:05 | PN ---
Date of Progress Note: 04/27/2022 Subjective: Patient was admitted with acute kidney injury on advanced chronic kidney disease secondary to overdiuresis. Patient was started on hydration. Kidney function stabilized. Physical Examination: Vital Signs: Blood pressure 141/71, pulse of 70 afebrile. Chest: Clear to auscultation. Heart: S1, S2. Systolic murmur. Abdomen: Soft, nontender. Extremities: No edema. Neurologic: Alert. No focality. Laboratory Data: Hemoglobin 9.8. Sodium 139, potassium 4.6, bicarb 26, BUN 65, creatinine 2.9, GFR 23, calcium 8.8. Phosphorus 3.2. Albumin 2.7. Corrected calcium is 9.5. PTH 249. Assessment And Plan: 1. Acute kidney injury on advanced chronic kidney disease secondary to prerenal, dehydration, overdiuresis, normal-sized kidney, proteinuric, non- nephrotic back to baseline of IV fluid. I am going to continue to monitor. Patient is cleared from the renal standpoint for discharge planning. 2. Hypertension, controlled, optimal. Continue current treatment. 3. Iron deficiency anemia. Continue IV iron. 4. Secondary hyperparathyroidism. I am going to continue on calcitriol. 5. Cardiorenal with the presence of acute kidney injury. Currently, patient looked to me on the normal volume. I am going to keep holding spironolactone and the Lasix for the time being and we will follow up. Current Medications: The patient is on include: 1. Aspirin. 2. IV iron. 3. Plavix. 4. Atorvastatin. 5. Metoprolol. 6. Zofran. 7. Folic acid. Time spent examining the patient [id number] reviewing data lab and radiology discussing the case with the patient placing order discussing the case with the bakery team member including nursing discussing the case with the hospitalist more than 35-minute PRAKASH Voice ID: [id number] Report ID: [id number] ABHI
[2022-04-28 01:40] VITALS: BMI 25.1
[2022-04-28 03:39] LABS: Specific Gravity 1.015 (1.005-1.030); Urine Bacteria <20 /HPF (<20); Urine Bilirubin NEGATIVE (Negative); Urine Blood 1+ (Negative); Urine Clarity Clear (Clear); Urine Color Yellow (Yellow); Urine Glucose 2+ (Negative); Urine Mucus Slight /HPF (None Seen); Urine Protein 3+ (Negative); Urine RBC <5 /HPF (None Seen); Urine Urobilinogen Normal (Normal)
[2022-04-28 03:41] LABS: UR PROTEIN 417.3 mg/dL (<11.9); Urine Protein/Creatinine Ratio 3.54 ratio (<0.15)
[2022-04-28 04:41] LABS: Albumin 2.6 g/dL (3.4-5.0); Bilirubin Total 0.4 mg/dL (0.2-1.0); Potassium 4.1 mmol/L (3.5-5.1); Protein, Total 6.8 g/dL (6.4-8.2)
[2022-04-28 04:49] VITALS: O2SAT 99
[2022-04-28 05:07] VITALS: TEMP 97.5
[2022-04-28] MEDS: INSULIN -REGULAR HUMAN 50 UNIT/0.5 ML ML SQ SCH (07:30)
--- NOTE | 2022-04-28 07:53 | P.DS ---
Admission Date: 04/24/22 Discharge Date: 04/28/22 Primary Care Provider: Dr. Rodriguez Disposition: ROUTINE DISCHARGE Discharge Condition: GOOD Reason for Admission: CHF exacerbation Consultations: 1. Cardiology 2. Nephrology Hospital Course: DIAGNOSES: # Acute on Chronic Decompensated Systolic Congestive Heart Failure with Reduced Ejection Fraction s/p PPM/AICD - resolved # Elevated LFTs - COVID-19 vs Statin-Induced # KDIGO Stage I Acute Kidney Injury on Chronic Kidney Disease Stage IV # Coronary Artery Disease s/p CABG # Hypertension # Hyperlipidemia # Type II Diabetes Mellitus # COVID-19 Infection HOSPITAL COURSE: Mr. Srinivasa Hernandez is a pleasant 61 year old male with a past medical history significant for chronic systolic congestive heart failure s/p PPM/AICD, chronic kidney disease stage IV, coronary artery disease s/p CABG, hypertension, hyperlipidemia, and type 2 diabetes mellitus who was admitted to the [facility] on 04/24/2022 for shortness of breath. He was admitted to the Medicine service. Upon further evaluation, he was found to have an acute on chronic decompensated congestive heart failure exacerbation as well as an acute kidney injury. Cardiology and Nephrology were consulted and he was evaluated by Dr. Whitaker and Dr. Cramer, respectively. He was initially treated with IV diuretics, and his symptoms improved significantly. However, there was concern that he may have been over-diuresed given his persistently elevated creatinine. Additionally, he developed elevated LFTs during his hospitalization. The exact etiology is unclear, but the differential included COVID-19 versus statininduced. After discussion with the specialty services, it was thought that he is at a "dry" state, and would benefit from holding his diuretics for a few days. I spoke with Dr. Leach who has cleared him for discharge with a close outpatient follow-up on 05/01/2022. On 04/28/2022, he was seen on morning rounds and deemed medically stable for discharge. He was discharged with instructions to schedule follow-up appointments with his PCP (Dr. Rodriguez), with Cardiology (Dr. Leach), and with Nephrology (Dr. Cramer). He and his , Mrs. Maher, were given the opportunity to ask questions and reported no further questions. Furthermore, all questions were answered to the best of my ability. A copy of this discharge summary will be sent to the above providers to facilitate continuity of care. Today, I personally spent 25 minutes on his case, of which greater than 50% of the time was spent in patient education, counseling, and coordination of care as described above. - Physical Exam General: Alert, In no apparent distress, Oriented x3 HEENT: Atraumatic, Mucous membr. moist/pink, EOMI, Sclerae nonicteric Neck: JVD not distended Respiratory: Diminished, Clear to auscultation bilaterally, without any wheezes, rhonchi, or rales Cardiovascular: Regular rate/rhythm, Normal S1 S2, No gallops, No rubs, No murmurs, Edema (trace BLE) Gastrointestinal: Soft and benign, Non-distended, No tenderness, No rebound, No guarding, No hepatosplenomegaly appreciated Musculoskeletal: No clubbing Integumentary: No rashes Neurological: Normal speech, Normal affect Vital Signs/Physical Exam: Temp Pulse Resp BP Pulse Ox 97.5 F 69 18 139/69 100 04/28/22 04:00 04/28/22 04:00 04/28/22 04:00 04/28/22 04:00 04/28/22 04:00 Laboratory Data at Discharge: WBC 4.40 K/uL (4.3-10.9) 04/26/22 03:25 Hgb 9.8 g/dL (13.6-17.9) L 04/26/22 03:25 Hct 29.7 % (39.6-49.0) L 04/26/22 03:25 Plt Count 216 K/uL (152-406) 04/26/22 03:25 PT 13.5 SECONDS (9.5-12.5) H 04/24/22 19:58 INR 1.23 04/24/22 19:58 Sodium 137 mmol/L (136-145) 04/28/22 04:08 Potassium 4.1 mmol/L (3.5-5.1) 04/28/22 04:08 BUN 60 mg/dL (7-18) H 04/28/22 04:08 Creatinine 3.07 mg/dL (0.70-1.30) H 04/28/22 04:08 Glucose 151 mg/dL (74-106) H 04/28/22 04:08 Uric Acid 13.4 mg/dL (3.5-7.2) H 04/26/22 03:25 Phosphorus 3.0 mg/dL (2.5-4.9) 04/28/22 04:08 Magnesium 2.0 mg/dL (1.6-2.4) 04/27/22 04:07 Total Bilirubin 0.4 mg/dL (0.2-1.0) 04/28/22 04:08 AST 131 U/L (15-37) H 04/28/22 04:08 ALT 126 U/L (16-61) H 04/28/22 04:08 Alkaline Phosphatase 167 U/L (45-117) H 04/28/22 04:08 Home Medications: Aspirin [Aspir-Low] 81 mg PO DAILY 06/22/18 Clopidogrel Bisulfate [Plavix*] 75 mg PO DAILY 06/22/18 Insulin Degludec [Tresiba Flextouch U-100] 24 unit SQ DAILY 06/22/18 Metoprolol Succinate 1 tab PO DAILY 06/22/18 Nitroglycerin [Nitrostat*] 0.4 mg SL PRN PRN 06/22/18 Pantoprazole Sodium [Protonix] 40 mg PO DAILY 30 Days #30 tablet. 12/27/19 Physician Discharge Instructions: 1. Please call and schedule follow-up appointment with your PCP (Dr. Rodriguez) in 3-5 days -Please have her repeat your blood work to recheck on your kidneys and liver tests 2. Please attend your follow-up appointment with Cardiology (Dr. Leach) on 05/01/2022 3. Please call and schedule a follow-up appointment with Nephrology (Dr. Cramer) in 3-5 days - Please hold your atorvastatin (Lipitor), furosemide (Lasix), spironolactone, and lisinopril until you see Dr. Leach Diet: Renal Activity: Ad jazmin Followup: Ravi Cramer MD [ACTIVE - CAN ADMIT] - (PLEASE CALL TO SCHEDULE A FOLLOW- UP APPOINTMENT) Nancy Henderson MD [Primary Care Provider] - (PLEASE CALL TO SCHEDULE A FOLLOW- UP APPOINTMENT) Guillermo Leach MD [ACTIVE - CAN ADMIT] - Time spent managing pt's care (in minutes): 25
[2022-04-28 09:00] VITALS: BP 140/83
[2022-04-28] MEDS: HEPARIN 5000 UNIT/ML 1 ML VIAL SQ SCH (09:00)
[2022-04-28] MEDS: FOLIC ACID 1 MG, MULTIVITAMINS INJ 10 ML, THIAMINE HCL 100 MG in NA CHLORIDE 0.9% 1,000 ML IV SCH (09:00)
[2022-04-28] MEDS: CALCITROL 0.25 MCG CAP PO SCH (09:08)
[2022-04-28] MEDS: CLOPIDOGREL 75 MG TABLET PO SCH (09:08)
[2022-04-28] MEDS: ASPIRIN EC 81 MG TAB PO SCH (09:08)
[2022-04-28] MEDS: METOPROLOL XL 50 MG TAB PO SCH (09:08)
[2022-04-29 06:35] LABS: Alpha-1-Globulins 0.4 g/dL (0.2-0.3); Alpha-2-Globulins 0.7 g/dL (0.5-0.9); Gamma Globulins 1.8 g/dL (0.8-1.7); INTERPRETATION REPORT
[2022-04-29 14:19] LABS: Vitamin D 1,25-Dihydroxy Total 12 pg/mL (18-72); Vitamin D,1,25-OH2, D2 <8 pg/mL
--- NOTE | 2022-05-02 18:58 | CON ---
Date of Consultation: 04/25/2022 Reason For Consultation: Congestive heart failure and chronic kidney disease. History Of Present Illness: Mr. Hernandez is 61. Came in with creatinine of 3, ejection is known to be 1 0% to 15%. Has a history of right ventricular systolic pressures more than 50, diastolic dysfunction , came in with shortness of breath. He is feeling better. Had diuresed significantly since he has b een in the hospital. Denied any pain in the chest. Denied any syncope. Denied any fever or chills. He had complained of PND orthopnea and pedal edema. Past Medical History: Includes CHF, hypertension, history of pacemaker, renal insufficiency, dyslipi demia, coronary artery disease, hypertension. Allergies: NONE. Review of Systems: Negative. Social History: Negative. Family History: Noncontributory. Medications: Include aspirin, Lipitor, Plavix, Lasix, and metoprolol. Physical Examination: Vital Signs: Stable. He was afebrile. He was in paced rhythm. HEENT: Negative. Neck: Supple with no bruit. Chest: Revealed some rales both bases. Cardiac: Revealed S3 gallops, tricuspid regurgitation murmur, sinus rhythm. Abdomen: Benign. Extremities: Revealed trace edema. Diagnostic Data: As stated earlier. Impression And Plan: 1.Acute on chronic systolic congestive heart failure. 2.Status post pacemaker. 3.Diastolic dysfunction. 4.Pulmonary hypertension. 5.Renal insufficiency. 6.Dyslipidemia. 7.Diabetes. 8.Hypertension. 9.Coronary artery disease. The patient is being followed by Nephrology. Cardiac obregon, he is doing well. Discussed the case with Dr. Nye. We will continue to diurese him gently while watching his kidney function. We will be happy to see him in the office as an outpatient in the near future. GUALBERTO/KIM Voice ID: [id number] Report ID: [id number]
== END 2022-04-28 11:08 | disposition home or self-care (01) | DRG 682 ==
LOC: ER 16:42 → ERHOLD 21:30 → 4TH 04-25 12:36
PROVIDERS: ADMIT Internal Medicine; ATTEND Internal Medicine
DX: N17.0 Acute kidney failure with tubular necrosis (principal); I50.23 Acute on chronic systolic (congestive) heart failure; U07.1 COVID-19; I13.0 Hypertensive heart and chronic kidney disease with heart failure and stage 1 through stage 4 chronic kidney disease, or unspecified chronic kidney disease; I50.22 Chronic systolic (congestive) heart failure; N18.4 Chronic kidney disease, stage 4 (severe); E11.22 Type 2 diabetes mellitus with diabetic chronic kidney disease; E11.40 Type 2 diabetes mellitus with diabetic neuropathy, unspecified; D63.1 Anemia in chronic kidney disease; D50.9 Iron deficiency anemia, unspecified; N25.81 Secondary hyperparathyroidism of renal origin; I27.29 Other secondary pulmonary hypertension; E78.5 Hyperlipidemia, unspecified; I08.1 Rheumatic disorders of both mitral and tricuspid valves; I25.10 Atherosclerotic heart disease of native coronary artery without angina pectoris; F17.210 Nicotine dependence, cigarettes, uncomplicated; I25.2 Old myocardial infarction; R79.89 Other specified abnormal findings of blood chemistry; Z95.1 Presence of aortocoronary bypass graft; Z79.4 Long term (current) use of insulin; Z79.82 Long term (current) use of aspirin; Z79.02 Long term (current) use of antithrombotics/antiplatelets; Z28.310 Unvaccinated for COVID-19; Z95.810 Presence of automatic (implantable) cardiac defibrillator; Z79.899 Other long term (current) drug therapy
CPT/HCPCS: 0240U; 36415; 71045; 76705; 76770; 80048; 80053; 80069; 81001; 82570; 82607; 82652; 82728; 82746; 82947; 83036; 83540; 83735; 83880; 83970; 84156; 84165; 84443; 84466; 84484; 84550; 85025; 85610; 86803; 93005; 93306; 93970; 99285; J1644; J1815; J1940; J2405; J2916; J3411; J7030; J7050

== ENCOUNTER 2024-07-26 10:07 | Inpatient (IN) | payer OTHER ==
[2024-07-26 10:35] LABS: Absolute Basophils 0.1 K/uL (0-0.5); Absolute Lymphocytes (CBC) 0.5 K/uL (0.7-4.9); Absolute Monocytes 0.7 K/uL (0.1-1.3); Absolute Neutrophil 5.7 K/uL (1.8-8.0); Basophils % 0.8 % (0-1.3); Eosinophils % 0.4 % (0-4.4); Hematocrit 26.1 % (39.6-49.0); Hemoglobin 8.5 g/dL (13.6-17.9); Lymphocytes % 7.7 % (15.3-44.8); MCH 28.2 pg (27.0-35.0); MCHC 32.5 g/dL (32.0-36.0); MCV 86.9 fL (80-100); MPV 8.2 fL (7.6-11.3); Monocytes % 10.6 % (3.3-12.3); Neutrophils % 80.5 % (41.7-73.7); Platelets 247 thou/uL (152-406); Red Cell Distribution Width 17.3 % (12.1-15.2)
[2024-07-26 10:38] LABS: PT Prothrombin Time 13.6 SECONDS (10-13.0); Protime INR 1.2
--- OUTSIDE RECORDS SUMMARY | 2024-07-26 10:43 | XMS REPORT | Continuity of Care Document ---
Author Name Unknown Address [address] [place] [address] [facility] Address [address] [place] [address] Care Team Providers Care Showroom Sales Assistant Name Role Phone SONIA DUBON Primary Care Physician Unavailab jenny Dubon, Sonia Attending Clinician Unavailable ISMAEL HUNTER Attending Clinician Unavailable ASAD MORGAN Attending Clinician Unavailable ASAD MORGAN Attending Clinician Unavailable Greg Recinos DO Attending Clinician [phone] Johnson LOPEZ, Justo Attending Clinician +[phone] Eliel LOPEZ, Sathish Tucker Attending Clinician + [phone] SATHISH FAULKNER Attending Clinician Unavailsravan barreto Doctor Unassigned, Morganza Attending Clinician U vaibhav Miles RN, Saida Attending Clinician [phone] CRISTO CHRISTIANSEN Attending Clinician Unavailable CRISTO CHRISTIANSEN Attending Clinician Unavailable Prasanth Hernandez DO Attending Clinician +- [phone] Robert LOPEZ, Cristo Attending Clinician +[phone] MOIRA CRUZ Attending Clinician Unav ailable NANCY, MOIRA GONZALEZ Attending Clinician Unav ailable Michael Herrera DO Attending Clinician +[phone] Nancy LOPEZ, Moira Gonzalez Attending Clinician + Yvonne Lilly RN Attending Clinician Unavailab jenny Mccann DO, Dulce Maria Attending Clinician [phone] Isac MORGAN, Maria A Workman Attending Clinician Unavail able BRIGETTE BARRIOS Attending Clinician Unavaila Tien Alfaro MD Attending Clinician +[phone] Jaquan LOPEZ, Julio Cesar Rashid Attending Clinician + [phone] Bibi LOPEZ, Jah Hitchcock Attending Clinician +[phone] Geraldo Mendoza MD Attending Clinician + [phone] Denis LOPEZ, Brigette Alexander Attending Clinician + [phone] Adelaide LOPEZ, Mayur Isaac Attending Clinici an Katelynn LOPEZ, Luis Attending Clinician +- [phone] Mery MORGAN, Vamsi Hinson Attending Clinician Unavail able JONY RAM Attending Clinician Unavailable Tomas Uribe DO Attending Clinician [phone] Corby LOPEZ, Pb Attending Clinician +[phone] Jony Ram DO Attending Clinician [phone] Jony Vaughan MD Attending Clinician + [phone] Miller Menon CRNA Attending Clinician +[phone] Asad Morgan MD Attending Clinician +[phone] Dale LOPEZ, Ismael Attending Clinician +[phone] JAKI DOWNS Attending Clinician Unavailab JAKI Concepcion Attending Clinician Unavailab Jaki Concepcion DO Attending Clinician +[phone] MARK TEJADA Attending Clinician Unavailable ANMARK HARKINS Attending Clinician Unavailable 2, [facility] Attending Clinician Unavailable Mallory LOPEZ, Mark Attending Clinician [phone] Adelaide LOPEZ, Mayur Isaac Attending Clinici an MAYUR MOE Attending Clinician Unavailable 2, [facility] Attending Clinician Unavailable Mery MORGAN, Vamsi Hinson Attending Clinician Unavail able Tien Gross MD Attending Clinician +[phone] Jony Ram DO Attending Clinician [phone] Nurse, [facility] Infusion Attending Clinician Unavailable Doctor Unassigned, Morganza Attending Clinician U navailable Pob, [facility] Main Attending Clinician Unavailabl codie Montanez MD, Melyssa Attending Clinician [phone] Andrea Cabrera MD Attending Clinician [phone] Testing, [facility] Pulmonary Function Attending Clinic tj Unavailable Dilia Calloway Attending Clinician + [phone] DILIA TURNER Attending Clinician Unavailab Yvonne Dobson RN Attending Clinician Unavailab ANDREA Farnsworth Attending Clinician Unavailable Benjamin KIMBROUGH Attending Clinician Unavailable Benjamin Nieves Attending Clinician [phone] Pb Tavarez MD Attending Clinician [phone] PB TAVAREZ Attending Clinician Unavailable REBECCA DOWNS Attending Clinician Unavailable Ju LOPEZ, Brenda Barker Attending Clinician + [phone] NNAMDI POLANCO Attending Clinician Unavailable Kathy LOPEZ, Nnamdi Attending Clinician +[phone] BRENDA DODD Attending Clinician UnavailBRENDA Brown Attending Clinician Unavailsravan Albrecht MD, Oriana Hinson Attending Clinician +[phone] 1, [facility] Sleep Lab Bed Attending Clinician Unavail able Only, [facility] Test Attending Clinician Unavailable Prasanth Meyers MD Attending Clinician +[phone] PRASANTH MEYERS Attending Clinician Unavailabl e [facility], [facility] Sleep Lab Attending Clinician UnavailNir Ngo MD Attending Clinician [phone] Lawrence Goff MD Attending Clinician +[phone] Marnie, Remote Device Check At Home - Attending Fernando brar Unavailable LAWRENCE GOFF Attending Clinician Unatony ilelizabeth Visit, [facility] Nurse Attending Clinician Unavailable Venancio LOPEZ, Lucia K.HJonathan Attending Clinician + [phone] [facility], [facility] Cardio Fac Attending Clinician Unavail able 1, [facility] Cardio Fac Room Attending Clinician Unava ilable ISMAEL HUNTER Admitting Clinician Unavailable PRASANTH HERNANDEZ Admitting Clinician Unavailabl Prasanth Delgado DO Admitting Clinician +[phone] JULIO CESAR PARTIDA Admitting Clinician UnavailJulio Cesar Dallas MD Admitting Clinician + [phone] PB TAVAREZ Admitting Clinician Unavailable Pb Tavarez MD Admitting Clinician +[phone] JAKI DOWNS Admitting Clinician Unavailab JONY Mireles Admitting Clinician Unavailable Jony Ram DO Admitting Clinician +[phone] MAYUR MOE Admitting Clinician Unavailable Pb Tavarez MD Admitting Clinician +[phone] NNAMDI POLANCO Admitting Clinician Unavailable Nir Verdugo MD Admitting Clinician +[phone] ANDREA CABRERA Admitting Clinician Unavailable Payers Payer Name Policy Type Policy Number Effective Date Expirati on Date Source [facility] DUAL COMPLETE [id number] 2024 00:00:00 [employer] MED[employer] DUAL COMPLETE O DSNP [id number] 2024 00:00:00 [facility] AARP MCR Advantage (HMO-POS) [id number] [facility] TOD MORRIS PLS O [id number] 2022 00:00:00 [employer] MEDICARE ADVANTAGE [employer] 53 [id number] 2021 00:00:00 [facility] Problems Condition Name Condition Details Condition Category Status Onset Date Resolution Date Last Treatment Date Treating Clinician Comments Source Gastric perforatio n Gastric perforatio n Disease Active 2-07 00:00: 00 [facility] Blood in stool Blood in stool Disease Active -22 00:00: 00 [facility] Shortness of breath Shortness of breath Disease Active 1-14 00:00: 00 [facility] Chronic kidney disease (CKD), active medical management without dialysis, stage 5 Chronic kidney disease (CKD), active medical management without dialysis, stage 5 Disease Active 2023-04 2-19 00:00: 00 [facility] Hypoglycem ia Hypoglycem ia Disease Active 518 00:00: 00 [facility] Acute on chronic combined systolic (congestiv e) and diastolic (congestiv e) heart failure Acute on chronic combined systolic (congestiv e) and diastolic (congestiv e) heart failure Disease Active 9-25 00:00: 00 [facility] Pulmonary hypertensi on Pulmonary hypertensi on Disease Active 1-28 00:00: 00 [facility] BRISSA (obstructi ve sleep apnea) BRISSA (obstructi ve sleep apnea) Disease Active 1- 00:00: 00 [facility] Troponin I above reference range Troponin I above reference range Disease Active 2020-04 00:00: 00 [facility] Acute right-side d CHF (congestiv e heart failure) Acute right-side d CHF (congestiv e heart failure) Disease Active 2020-04-17 00:00: 00 [facility] HFrEF (heart failure with reduced ejection fraction) HFrEF (heart failure with reduced ejection fraction) Disease Active 2020-04 1-09 00:00: 00 [facility] Dyspnea Dyspnea Disease Active 4-03 00:00: 00 [facility] CASPER (dyspnea on exertion) CASPER (dyspnea on exertion) Disease Active 1-19 00:00: 00 [facility] Type 2 diabetes mellitus without complicati on, without long-term current use of insulin Type 2 diabetes mellitus without complicati on, without long-term current use of insulin Disease Active 01-03 00:00: 00 [facility] Type 2 diabetes mellitus without complicati on, without long-term current use of insulin Type 2 diabetes mellitus without complicati on, without long-term current use of insulin Disease Active 01-03 00:00: 00 [facility] KENYA (acute kidney injury) KENYA (acute kidney injury) Disease Active 16 00:00: 00 [facility] S/P ICD (internal cardiac defibrilla tor) procedure S/P ICD (internal cardiac defibrilla tor) procedure Disease Active 18 00:00: 00 [facility] NSTEMI (non-ST elevated myocardial infarction ) NSTEMI (non-ST elevated myocardial infarction ) Disease Active 12-12 00:00: 00 [facility] Hyperglyce suzanna Hyperglyce suzanna Disease Active 12-12 00:00: 00 [facility] Chest pain Chest pain Disease Active 12-11 00:00: 00 [facility] Coronary artery disease involving [place] coronary artery without angina pectoris Coronary artery disease involving [place] coronary artery without angina pectoris Disease Active 11-22 00:00: 00 [facility] Coronary artery disease involving [place] coronary artery without angina pectoris Coronary artery disease involving [place] coronary artery without angina pectoris Disease Active 11-22 00:00: 00 [facility] Essential hypertensi on Essential hypertensi on Disease Active 06-15 00:00: 00 Overview: Formattin g of this note might be different from the original. 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 Indigesti on -STEMI 10/04. S/p PCI ? vessel [facility] Smoking 1/2 pack a day or less Smoking 1/2 pack a day or less Disease Active 06-15 00:00: 00 [facility] Ischemic cardiomyop athy Ischemic cardiomyop athy Disease Active 06-15 00:00: 00 Overview: Formattin g of this note might be different from the original. EF 20% per pt 10/04 [facility] Thyroid disease Thyroid disease Disease Active [facility] Allergic rhinitis Non-season al allergic rhinitis, unspecifie d trigger Problem [facility] [id number] Dependence on renal dialysis Problem [facility] [id number] End stage renal disease Problem [facility] [id number] Gastrointe stinal hemorrhage associated with duodenal ulcer Problem [facility] [id number] PUD (peptic ulcer disease) Problem [facility] Chronic duodenal ulcer with hemorrhage Problem [facility] n [facility] Hyp hrt & chr kdny dis w hrt fail and w stg 5 chr kdny/ESRD Problem [facility] [id number] Coronary artery disease involving [place] coronary artery of [place] heart without angina pectoris Problem [facility] [id number] Anemia of chronic disease Problem [facility] [id number] GERD without esophagiti s Problem [facility] 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 Problem [facility] [id number] Chronic kidney disease, stage 3b Problem [facility] [id number] Mixed hyperlipid emia Problem [facility] [id number] Cardiac defibrilla tor in place Problem [facility] [id number] Hypertensi ve heart disease with heart failure Problem [facility] [id number] Type 2 diabetes mellitus without complicati ons Problem [facility] [id number] Type 2 diabetes mellitus with other diabetic kidney complicati on Problem [facility] [id number] Diabetes mellitus due to underlying condition with diabetic chronic kidney disease Problem [facility] Tobacco user Smokes 1/2 pack per day Problem [facility] Acute on chronic systolic heart failure Acute on chronic systolic congestive heart failure Problem [facility] [id number] KENYA (acute kidney injury) Problem [facility] [id number] Anemia in chronic kidney disease Problem [facility] [id number] Type 2 diabetes mellitus with diabetic chronic kidney disease Problem [facility] [id number] Chronic kidney disease, stage 4 (severe) Problem [facility] Decreased hearing Decreased hearing Problem [facility] DM (diabetes mellitus) DM (diabetes mellitus) Disease Resolve d 2-23 00:00: 00 2016-05-22 00:00:00 2016-05-22 08:20:42 [facility] Left ventricula r apical thrombus Left ventricula r apical thrombus Disease Resolve d 12-12 00:00: 00 2016-01-12 00:00:00 2021-11-06 00:41:53 [facility] Allergies, Adverse Reactions, Alerts Allergy Name Allergy Type Status Severity Reaction(s) Onset Date Inactive Date Treating Clinician Comments Source NO KNOWN ALLERGIE S Drug Class Active [facility] Family History Family Member Diagnosis Comments Start Date Stop Date Sourc e Natural brother [facility] Natural brother [facility] Natural brother Hypert[facility] Natural father Heart Unive [facility] Natural mother Asthma Unive [facility] Natural sister [facility] Natural sister [facility] Social History Social Habit Start Date Stop Date Quantity Comments Source History SDOH Social Connections Get Together [facility] History SDOH Social Connections Mandaeism [facility] History SDOH Social Connections Membership [facility] History SDOH Social Connections Meetings [facility] Gender identity [facility] Sexual orientation [facility] History of Social function 2024-07-15 00:00:00 2024-07-15 00:00:00 [facility] Alcoholic beverage intake 2024-07-15 00:00:00 2024-07-15 00:00:00 0 /d [facility] Cigarettes smoked current (pack per day) - Reported 2024-05-30 00:00:00 2024-05-30 00:00:00 [facility] Cigarette pack-years 2024-05-30 00:00:00 2024-05-30 00:00:00 [facility] Tobacco use and exposure 2024-05-30 00:00:00 2024-05-30 00:00:00 Smokeless tobacco non-user [facility] Tobacco Comment 2023-09-08 00:00:00 2023-09-08 00:00:00 Trying to quit [facility] Alcohol intake 2023-01-22 00:00:00 2023-01-22 00:00:00 0 /d [facility] Exposure to SARS-CoV-2 (event) 2022-07-01 00:00:00 2022-07-11 14:03:00 Not sure [facility] History SDOH Food Worry 2022-05-24 00:00:00 2022-05-24 00:00:00 2 [facility] History SDOH Food Scarcity 2022-05-24 00:00:00 2022-05-24 00:00:00 2 [facility] History SDOH Social Connections Phone 2022-05-23 00:00:00 2022-05-23 00:00:00 1 [facility] History SDOH Social Connections Living 2022-05-23 00:00:00 2022-05-23 00:00:00 5 [facility] History SDOH Physical Activity DPW 2022-05-23 00:00:00 2022-05-23 00:00:00 7 [facility] History SDOH Physical Activity MPS 2022-05-23 00:00:00 2022-05-23 00:00:00 1 [facility] History SDOH Financial 2022-05-23 00:00:00 2022-05-23 00:00:00 3 [facility] History SDOH Transport Med 2022-05-23 00:00:00 2022-05-23 00:00:00 2 [facility] History SDOH Transport Non-Med 2022-05-23 00:00:00 2022-05-23 00:00:00 2 [facility] History SDOH Alcohol Frequency 2022-05-23 00:00:00 2022-05-23 00:00:00 1 [facility] History SDOH Alcohol Std Drinks 2022-05-22 00:00:00 2022-05-22 00:00:00 0 [facility] History SDOH Alcohol Binge 2022-05-22 00:00:00 2022-05-22 00:00:00 1 [facility] Alcohol Comment 2015-12-10 00:00:00 2015-12-10 00:00:00 once a month [facility] History of tobacco use 1990-04-23 00:00:00 2015-04-23 00:00:00 Cigarette Smoker [facility] Smoking Status Start Date Stop Date Source Current Smoker 2024-06-06 00:00:00 [facility] Ex-smoker 2024-05-30 00:00:00 2024-05-30 00:00:00 [facility] Occasional tobacco smoker 2023-09-08 00:00:00 [facility] Medications Ordered Medication Name Filled Medication Name Start Date Stop Date Current Medication? Ordering Clinician Indication Dosage Frequency Signature (SIG) Comments Components Source LORATADINE ORAL 07-15 10:29: 44 Yes 10mg Take 10 mg by mouth. Marisol [facility] pantoprazol e 40 mg EC tablet 07-15 00:00: 00 Yes [id number] 40mg Take 1 tablet by mouth in the morning and 1 tablet in the evening[facility] NaCl 0.9% (NS) injection 10 mL 06-02 20:30: 00 06-03 00:09 :00 No 10mL 10 mL, Slow IV Push, DIALYSIS ONCE - MARNIE DSU, 1 dose, On Sun06/02/24 at 1430, Routine [facility] heparin 1,000 unit/mL (10 mL) - dialysis catheter care 06-02 20:24: 21 Yes 2000U PRN - SEE INSTRUCTIO NS, Starting on Sun06/02/24 at 1424, Until Discontinu ed, Routine, For Priming of Ports: After initial saline flush, prime each port with heparin according to the priming volume listed on each catheter port for catheter lock. [facility] acetaminoph en (TYLENOL) tablet 1,000 mg 06-02 20:00: 00 06-03 00:28 :05 No 1000mg 1,000 mg, Oral, TID, First dose on Sun06/02/24 at 1400, Until Discontinu ed, [facility] (porcine) injection 5,000 Units 06-02 12:00: 00 06-03 00:28 :05 No 5000U 5,000 Units, Subcutaneo us, Q8H, First dose on Sun06/02/24 at 0600, Until Discontinu ed, Routine [facility] furosemide 40 mg tablet 06-02 00:00: 00 Yes 80mg Take 2 tablets by mouth every morning and evening. [facility] flucon[facility] 200 mg tablet 06-02 00:00: 00 06-07 05:59 :00 Yes [id number] 200mg Take 1 tablet by mouth in the morning for [address] [facility] amox[facility] -pot clavulanate 500 mg (AUGMENTIN) 500-125 mg tablet 06-02 00:00: 00 06-07 05:59 :00 Yes [id number] 500mg Take 1 tablet by mouth in the morning and 1 tablet in the evening. Do all this for 4 days. [facility] acetaminoph en (TYLENOL) 160 mg/5 mL oral liquid 650 mg 06-01 18:00: 00 06-02 14:05 :31 No 650mg 650 mg, Oral, Q6H, First dose on 06/01/24 at 1200, Until Discontinu ed, Routine [facility] NaCl 0.9% (NS) injection 10 mL 05-31 14:30: 00 05-31 18:51 :00 No 10mL 10 mL, Slow IV Push, DIALYSIS ONCE - MARNIE DSU, 1 dose, On 05/31/24 at 0830, Routine [facility] mupirocin (BACTROBAN OINT) 2 % oinintment 05-31 14:23: 47 06-03 00:28 :05 No [facility] heparin 1,000 unit/mL (10 mL) - dialysis catheter care 05-31 14:23: 39 06-03 00:28 :05 No 2000U PRN - SEE INSTRUCTIO NS, Starting on 05/31/24 at 0823, Until 06/02/24 at 1828, Routine, For Priming of Ports: After initial saline flush, prime each port with heparin according to the priming volume listed on each catheter port for catheter lock. [facility] iopamidol (ISOVUE 370-500 mL) injection 30 mL 05-31 01:45: 00 05-31 01:13 :00 No [id number] 30mL 30 mL, Oral, ONCE, 1 dose, On Sun05/30/24 at 1945, Routine [facility] Sliding Scale Insulin - Lispro (HumaLOG) 05-30 22:00: 00 06-03 00:28 :05 No Subcutaneo us, Q4H, First dose on Sun05/30/24 at 1600, Until Discontinu ed, Routine [facility] furosemide (LASIX) injection 40 mg 05-30 14:00: 00 05-30 14:50 :12 No 40mg 40 mg, Slow IV Push, Q12H, First dose on Sun05/30/24 at 0800, Until Discontinu ed, Routine [facility] NaCl 0.9% (NS) IV infusion 1,000 mL 05-30 11:30: 00 06-01 16:52 :43 No 1000mL at 20 mL/hr, IV Infusion, CONTINUOUS , Starting on Sun05/30/24 at 0530, Until Sun06/01/24 at 1052, Routine [facility] potassium chloride in water (KCL) 20 mEq/100 mL IV infusion 20 mEq 05-30 11:30: 00 05-30 13:19 :00 No 20meq 20 mEq, IV Infusion, at 50 mL/hr Administer over 2 Hours, ONCE, 1 dose, On Sun05/30/24 at 0530, Routine [facility] magnesium sulfate in water 4 gram/50 mL (8 %) IV Piggyback 4 g 05-30 11:30: 00 05-30 13:22 :00 No 4g 4 g, IV Piggyback, at 25 mL/hr Administer over 120 Minutes, ONCE, 1 dose, On Sun05/30/24 at 0530, Routine [facility] glucagon HCL injection 1 mg 05-30 10:14: 39 06-03 00:28 :05 No 1mg 1 mg, Intramuscu lar, PRN, Starting on Sun05/30/24 at 0414, Until 06/02/24 at 1828, MINESH, Low blood sugar, Blood Glucose < or = 70 mg/dL and patient is NPO, unable to swallow or has mental changes. [facility] dextrose 50 % in water (D50W) injection 25 mL 05-30 10:14: 39 06-03 00:28 :05 No 25mL 25 mL, Slow IV Push, PRN, Starting on Sun05/30/24 at 0414, Until 06/02/24 at 1828, MINESH, Blood Glucose < or = 70 mg/dL and patient is NPO, unable to swallow or has mental status changes. [facility] fluconazole (DIFLUCAN) Piggyback 200 mg 05-30 10:07: 00 06-03 00:28 :05 No 200mg at 100 mL/hr, IV Piggyback, Q24H ABX, 5 doses, First dose on Sun05/30/24 at 0415, Last dose on Sun06/03/24 at 0415, MINESH, Do Not Refrigerat e. [facility] ondansetron (ZOFRAN (PF)) injection 4 mg 05-30 10:03: 59 06-03 00:28 :05 No 4mg 4 mg, Slow IV Push, Q6HPRN, Starting on Sun05/30/24 at 0403, Until Sun06/02/24 at 1828, Administer over 2-5 Minutes, 2 mL [facility] pantoprazol e (PROTONIX) injection 40 mg 05-30 10:02: 00 06-03 00:28 :05 No 40mg 40 mg, Slow IV Push, Q12H ABX, 10 doses, First dose on Sun05/30/24 at 0415, Last dose on Sun06/03/24 at 1615 [facility] iopamidol (ISOVUE 370-500 mL) injection 90 mL 05-30 05:45: 00 05-30 05:45 :00 No [id number] 90mL 90 mL, Intravenou s, ONCE, 1 dose, On Sun05/29/24 at 2345, Routine [facility] pantoprazol e 40 mg EC tablet 05-20 00:00: 00 07-15 00:00 :00 No [id number] 40mg Take 1 tablet by mouth in the morning and 1 tablet in the evening. [facility] NaCl 0.9% (NS) injection 10 mL 05-19 15:30: 00 05-19 19:11 :00 No 10mL 10 mL, Slow IV Push, DIALYSIS ONCE - MARNIE DSU, 1 dose, On Sun05/19/24 at 0930, Routine [facility] heparin 1,000 unit/mL (10 mL) - dialysis catheter care 05-19 15:24: 32 05-19 23:11 :02 No 2000U PRN - SEE NOEMI WAN, Starting on Sun05/19/24 at 0924, Until Sun05/19/24 at 1711, Routine, For Priming of Ports: After initial saline flush, prime each port with heparin according to the priming volume listed on each catheter port for catheter lock. [facility] pantoprazol e (PROTONIX) EC tablet 40 mg 05-19 14:00: 00 05-19 23:11 :02 No 40mg 40 mg, Oral, BID, First dose on Sun05/19/24 at 0800, Until Discontinu ed, Routine [facility] sucralfate 1 gram tablet 05-19 00:00: 00 Yes [id number] 1g Take 1 tablet by mouth before meals and at bedtime. [facility] pantoprazol e 40 mg EC tablet 05-19 00:00: 00 05-20 00:00 :00 No [id number] 40mg Take 1 tablet by mouth in the morning for 90 days. [facility] furosemide (LASIX) tablet 80 mg 05-18 15:15: 00 05-19 23:11 :02 No 80mg 80 mg, Oral, QAM+PM, First dose on 05/18/24 at 0915, Until Discontinu ed, Routine [facility] pantoprazol e (PROTONIX) injection 40 mg 05-18 02:00: 00 05-19 12:44 :09 No 40mg 40 mg, Slow IV Push, BID, First dose on 05/17/24 at 2000, Until Discontinu ed [facility] acetaminoph en (TYLENOL) tablet 650 mg 05-17 22:31: 46 05-19 23:11 :02 No 650mg 650 mg, Oral, Q6HPRN, Starting on 05/17/24 at 1631, Until Sun05/19/24 at 1711, Routine, Pain (scale 1-3), Pain (scale 4-6) [facility] sucralfate (CARAFATE) tablet 1 g 05-17 22:30: 00 Yes 1g 1 g, Oral, AC+HS, First dose on 05/17/24 at 1630, Until Discontinu ed, Routine [facility] pantoprazol e (PROTONIX) injection 80 mg 05-17 10:30: 00 05-17 10:04 :00 No 80mg 80 mg, Slow IV Push, ONCE, 1 dose, On 05/17/24 at 0430 [facility] atorvastati n (LIPITOR) tablet 80 mg 05-17 03:00: 00 05-19 23:11 :02 No 80mg 80 mg, Oral, QHS, First dose on Sun05/16/24 at 2100, Until Discontinu ed, Routine [facility] epoetin renny-epbx (RETACRIT) injection 7,000 Units 05-17 00:30: 00 05-17 00:39 :00 No [id number] 7,000 Units, Slow IV Push, DIALYSIS ONCE - MARNIE DSU, 1 dose, On Sun05/16/24 at 1830, Routine [facility] NaCl 0.9% (NS) injection 10 mL 05-16 22:00: 00 05-17 01:00 :00 No 10mL 10 mL, Slow IV Push, DIALYSIS ONCE - MARNIE DSU, 1 dose, On Sun05/16/24 at 1600, Routine [facility] heparin 1,000 unit/mL (10 mL) - dialysis catheter care 05-16 21:57: 28 05-19 23:11 :02 No 2000U PRN - SEE INSTRUCTIO NS, Starting on Sun05/16/24 at 1557, Until Sun05/19/24 at 1711, Routine, For Priming of Ports: After initial saline flush, prime each port with heparin according to the priming volume listed on each catheter port for catheter lock. [facility] ezetimibe (ZETIA) tablet 10 mg 05-16 15:00: 05-19 23:11 :02 No 10mg 10 mg, Oral, DAILY, First dose on Sun05/16/24 at 0900, Until Discontinu ed, Routine [facility] aspirin EC tablet 81 mg 05-16 15:00: 00 05-17 12:56 :48 No 81mg 81 mg, Oral, DAILY, First dose on Sun05/16/24 at 0900, Until Discontinu ed, Routine [facility] pantoprazol e (PROTONIX) EC tablet 40 mg 05-16 15:00: 00 05-17 09:45 :59 No 40mg 40 mg, Oral, DAILY, First dose on Sun05/16/24 at 0900, Until Discontinu ed, Routine [facility] Lidocaine (LIDOCARE) 4 % patch 2 Patch 05-15 15:00: 00 05-19 23:11 :02 No 2{patch } 2 Patch, Topical, Administer over 12 Hours, DAILY, First dose on Sun05/15/24 at 0900, Until Discontinu ed, Routine [facility] pantoprazol e (PROTONIX) injection 40 mg 05-15 14:00: 00 05-16 12:57 :37 No 40mg 40 mg, Slow IV Push, Q12H, First dose on Sun05/15/24 at 0800, Until Discontinu ed [facility] HYDROcodone -acetaminop hen (NORCO 5) tablet 1 tablet 05-15 13:51: 26 05-17 22:32 :09 No 1{tbl} 1 tablet, Oral, Q6HPRN, Starting on Sun05/15/24 at 0751, Until 05/17/24 at 1632, Routine, Pain (scale 4-6), Pain (scale 7-10) [facility] polyethylen e glycol 3350 powder 17 g 05-15 04:00: 00 05-19 23:11 :02 No 17g 17 g, Oral, DAILY, First dose on Sun05/14/24 at 2200, Until Discontinu ed, Routine [facility] sennosides (SENOKOT) tablet 8.6 mg 05-15 04:00: 00 05-19 23:11 :02 No 8.6mg 8.6 mg, Oral, DAILY, First dose on Sun05/14/24 at 2200, Until Discontinu ed, Routine [facility] fentanyl PF (SUBLIMAZE (PF)) injection 25 mcg 05-15 02:58: 24 05-15 13:51 :38 No 25ug 25 mcg, Slow IV Push, Q4HPRN, Starting on Sun05/14/24 at 2058, Until Toshia 05/15/24 at 0751, Routine, Pain (scale 7-10) [facility] epoetin renny-epbx (RETACRIT) injection 8,000 Units 05-15 02:45: 00 05-15 03:37 :00 No 8000U 8,000 Units, Slow IV Push, DIALYSIS ONCE - MARNIE D[facility], 1 dose, On Sun05/14/24 at 204, Routine [facility] NaCl 0.9% (NS) injection 10 mL 05-15 02:45: 00 05-14 17:45 :00 No 10mL 10 mL, Slow IV Push, DIALYSIS ONCE - MARNIE DSU, 1 dose, On Sun05/14/24 at 204, Routine [facility] heparin 1,000 unit/mL (10 mL) - dialysis catheter care 05-15 02:30: 46 05-19 23:11 :02 No 2000U PRN - SEE INSTRUCTIO NS, Starting on Sun05/14/24 at 2030, Until Sun05/19/24 at 1711, Routine, For Priming of Ports: After initial saline flush, prime each port with heparin according to the priming volume listed on each catheter port for catheter lock. [facility] acetaminoph en (OFIRMEV) IV piggyback 1,000 mg 05-14 23:45: 00 05-14 23:54 :00 No 1000mg 1,000 mg, IV Piggyback, at 400 mL/hr Administer over 15 Minutes, ONCE, 1 dose, On Sun05/14/24 at 1745, Routine, Is the patient strict NPO and unable to tolerate oral medication s? Yes [facility] ondansetron (ZOFRAN (PF)) injection 4 mg 05-14 23:15: 41 05-17 22:32 :09 No 4mg 4 mg, Slow IV Push, Q6HPRN, Nausea and Vomiting (N/V), Starting on Sun05/14/24 at 1715, Please give medication over 2-5 minutes. [facility] cyclobenzap rine (FLEXERIL) tablet 5 mg 05-14 22:57: 39 05-19 23:11 :02 No 5mg 5 mg, Oral, TIDPRN, Starting on Sun05/14/24 at 1657, Until Sun05/19/24 at 1711, Routine, Muscle Spasms [facility] fentanyl PF (SUBLIMAZE (PF)) injection 25 mcg 05-14 22:45: 00 05-14 22:06 :00 No 25ug 25 mcg, Slow IV Push, ONCE, 1 dose, On Sun05/14/24 at 1645, Routine [facility] iopamidol (ISOVUE 300-100 mL) injection 200 mL 05-14 22:30: 00 05-14 22:30 :00 No [id number] 200mL 200 mL, Intravenou s, ONCE, 1 dose, On Sun05/14/24 at 1630, Routine [facility] ketorolac (TORADOL) injection 05-14 21:05: 52 05-14 21:05 :52 No PRN, Starting on Sun05/14/24 at 1505, Until Sun05/14/24 at 1505, Routine, Intra-op [facility] ondansetron (ZOFRAN (PF)) injection 05-14 20:54: 06 05-14 20:54 :06 No Slow IV Push, PRN, Starting on Sun05/14/24 at 1454, Until Sun05/14/24 at 1454, Administer over 2-5 Minutes, [facility] fent[facility] (SUBLIMAZE (PF)) injection 05-14 20:41: 00 05-14 21:01 :30 No Slow IV Push, PRN, Starting on Sun05/14/24 at 1441, Until Sun05/14/24 at 1501, Routine, Intra-op [facility] glucagon (GLUCAGEN DIAGNOSTIC KIT) injection 05-14 19:58: 00 05-14 19:58 :00 No Intravenou s, PRN, Starting on Sun05/14/24 at 1358, Until Sun05/14/24 at 1358, Routine, Intra-op [facility] lidocaine 1% (PF) (XYLOCAINE) injection 05-14 19:44: 52 05-14 19:44 :52 No PRN, Starting on Sun05/14/24 at 1344, Until Sun05/14/24 at 1344, Routine, Intra-op [facility] NaCl 0.9% (NS) IV Line Priming and Flushing Fluid Only 250 mL 05-14 16:45: 00 05-14 16:45 :00 No 250mL 250 mL, IV Infusion, ONCE, 1 dose, On Sun05/14/24 at 1045, 250 mL [facility] vitamin B-12 (CYANOCOBAL CALZADA) tablet 1,000 mcg 05-14 15:00: 00 05-17 14:59 :00 No 1000ug 1,000 mcg, Oral, DAILY, 3 doses, First dose on Sun05/14/24 at 0900, Last dose on Sun05/16/24 at 0900, Routine [facility] foLIC acid (FOLATE) tablet 1 mg 05-14 15:00: 00 05-17 14:59 :00 No 1mg 1 mg, Oral, DAILY, 3 doses, First dose on Sun05/14/24 at 0900, Last dose on Sun05/16/24 at 0900, Routine [facility] Sliding Scale Insulin - Lispro (HumaLOG) 05-14 14:00: 00 05-19 23:11 :02 No Subcutaneo us, TID MEALS+HS, First dose on Sun05/14/24 at 0800, Until Discontinu ed, Routine [facility] glucagon HCL injection 1 mg 05-14 06:46: 27 05-19 23:11 :02 No 1mg 1 mg, Intramuscu lar, PRN, Starting on Sun05/14/24 at 0046, Until Sun05/19/24 at 1711, MINESH, Low blood sugar, Blood Glucose < or = 70 mg/dL and patient is NPO, unable to swallow or has mental changes. [facility] dextrose 50 % in water (D50W) injection 25 mL 05-14 06:46: 27 05-19 23:11 :02 No 25mL 25 mL, Slow IV Push, PRN, Starting on Sun05/14/24 at 0046, Until Sun05/19/24 at 1711, MINESH, Blood Glucose < or = 70 mg/dL and patient is NPO, unable to swallow or has mental status changes. [facility] pantoprazol e (PROTONIX) 80 mg in NaCl 0.9% (NS) 500 mL infusion 05-14 04:15: 00 05-15 04:14 :00 No 8mg/h 8 mg/hr (50 mL/hr), IV Infusion, CONTINUOUS , Starting on Sun05/13/24 at 2215, For 24 hours [facility] iopamidol (ISOVUE 370-500 mL) injection 80 mL 05-14 03:45: 00 05-14 03:45 :00 No [id number] 80mL 80 mL, Intravenou s, ONCE, 1 dose, On Sun05/13/24 at 2145, Routine [facility] pantoprazol e (PROTONIX) injection 80 mg 05-14 03:15: 00 05-14 03:21 :00 No 80mg 80 mg, Slow IV Push, ONCE, 1 dose, On Sun05/13/24 at 2115 [facility] ondansetron (ZOFRAN (PF)) injection 4 mg 05-14 01:15: 00 05-14 01:11 :00 No 4mg 4 mg, Slow IV Push, ONCE, 1 dose, On Sun05/13/24 at 1915, Administer over 2-5 Minutes, 2 mL [facility] epoetin renny-epbx (RETACRIT) injection 10,000 Units 05-12 16:00: 00 05-12 17:01 :00 No [id number] 10,000 Units, Subcutaneo us, DIALYSIS ONCE - PT ROOM, 1 dose, On Sun05/12/24 at 1000, Routine [facility] sacubitriL- valsartan (ENTRESTO) 24-26 mg tablet 05-12 00:00: 00 Yes [id number] Take 1 tablet twice daily as long as SBP > 110 [facility] allopurinoL 100 mg tablet 05-12 00:00: 00 06-12 05:59 :00 Yes [id number] 100mg Take 1 tablet by mouth every Sunday, and Sunday in the evening for 30 days. [facility] codeine-gua ifenesin (ROBITUSSIN AC) 10-100 mg/5 mL oral solution 5 mL 05-11 12:50: 51 05-12 20:15 :54 No 5mL 5 mL, Oral, Q4HPRN, Starting on 05/11/24 at 0650, Until Sun05/12/24 at 1415, Routine, Cough [facility] atropine 0.1 mg/mL injection 1 mg 05-11 02:32: 11 05-12 20:15 :54 No 1mg 1 mg, IV Push, PRN, 1 dose, Starting on 05/10/24 at 2032, Until 05/12/24 at 1415, Routine, Symptomati c Bradycardi a [facility] sodium ferric gluconate (FERRLECIT) 125 mg in NaCl 0.9% (NS) 100 mL IV piggyback 05-10 17:00: 00 05-10 17:09 :00 No [id number] 125mg 125 mg, IV Piggyback, ONCE, 1 dose, On 05/10/24 at 1100, Administer over 60 Minutes, 100 mL [facility] ergocalcife rol (vitamin d2) (CALCIFEROL ) capsule 50,000 Units 05-10 15:45: 00 05-10 17:10 :00 No [id number] 50,000 Units, Oral, ONCE, 1 dose, On 05/10/24 at 0945, Routine [facility] NaCl 0.9% (NS) injection 5 mL 05-10 12:00: 00 05-10 16:43 :00 No 5mL 5 mL, Slow IV Push, ONCE, 1 dose, On 05/10/24 at 0600, Routine [facility] epoetin renny-epbx (RETACRIT) injection 10,000 Units 05-10 03:00: 00 05-10 03:02 :00 No [id number] 10,000 Units, Subcutaneo us, ONCE AT 2000, 1 dose, On Sun05/09/24 at 2100, Routine, membership correspondent approving Restricted medication : CHANTALE ALEX [facility] heparin 1,000 unit/mL (10 mL) - HD catheter care 05-10 02:54: 11 05-12 20:15 :54 No 1000U PRN - SEE NOEMI WAN, Starting on Sun05/09/24 at 2054, Until Sun05/12/24 at 1415, Routine, For Priming of Ports: After initial saline flush, prime each port with heparin according to the priming volume listed on each catheter port for catheter lock. [facility] heparin 1,000 unit/mL (10 mL) - dialysis catheter care 05-10 01:00: 00 05-10 00:52 :00 No [id number] 5000U ONCE, 1 dose, On Sun05/09/24 at 1900, Routine [facility] HYDROcodone -acetaminop hen (NORCO 5) tablet 1 tablet 05-09 19:42: 05 05-12 20:15 :54 No 1{tbl} 1 tablet, Oral, Q6HPRN, Starting on Sun05/09/24 at 1342, Until Sun05/12/24 at 1415, Routine, Pain (scale 4-6) [facility] albumin (ALBUMINAR) 25 % injection 12.5 g 05-09 18:30: 00 05-09 17:54 :00 No 12.5g 12.5 g, IV Infusion, ONCE, 1 dose, On Sun05/09/24 at 1230, 50 mL, PACU, Indication : NON-APPROV ED INDICATION - PHARMACY WILL CALL ORDERING PROVIDER, Specific Indication : post procedure low BP, Faculty Requesting Approval: JONY VAUGHAN, membership correspondent approving Restricted medication : JONY VAUGHAN [facility] NaCl 0.9% (NS) IV infusion 100 mL 05-09 18:00: 00 05-12 01:06 :04 No 100mL at 75 mL/hr, IV Infusion, CONTINUOUS , Starting on Sun05/09/24 at 1200, Until Sun05/11/24 at 1906, Routine, PACU [facility] FENTanyl (PF) (SUBLIMAZE) injection 25 mcg 05-09 17:51: 41 05-12 22:15 :54 No 25ug 25 mcg, Slow IV Push, Q5MIN PRN, 4 doses, Starting on Sun05/09/24 at 1151, Until Sun05/12/24 at 1615, Routine, Pain Scale 4-6, PACU [facility] sodium chloride 0.9 % irrigation solution 05-09 14:45: 00 05-12 22:15 :54 No PRN, Starting on Sun05/09/24 at 0845, Until Sun05/12/24 at 1615, Intra-op [facility] lidocaine 1% (PF) (XYLOCAINE) injection 05-09 14:30: 00 05-12 22:15 :54 No PRN, Starting on Sun05/09/24 at 0830, Until Sun05/12/24 at 1615, Routine, Intra-op [facility] heparin 1,000 unit/mL injection 05-09 14:28: 00 05-12 22:15 :54 No PRN, Starting on Sun05/09/24 at 0828, Until Sun05/12/24 at 1615, Routine, Intra-op [facility] NaCl 0.9% (NS) IV infusion 05-09 14:28: 00 05-12 22:15 :54 No CONTINUOUS PRN, Starting on Sun05/09/24 at 0828, Until Sun05/12/24 at 1615, Routine, Intra-op [facility] lidocaine 2% (XYLOCAINE) 20 mg/mL (2 %) injection 05-09 14:15: 00 05-12 22:15 :54 No PRN, Starting on Sun05/09/24 at 0815, Until Sun05/12/24 at 1615, Routine, Intra-op [facility] sodium ferric gluconate (FERRLECIT) 125 mg in NaCl 0.9% (NS) 100 mL IV piggyback 05-08 16:45: 00 05-11 14:59 :00 No [id number] 125mg 125 mg, IV Piggyback, DAILY, 3 doses, First dose on Toshia 05/08/24 at 1045, Last dose on 05/10/24 at 0900, Administer over 60 Minutes, 100 mL [facility] sulfur hexafluorid e microsphr (LUMASON) injection 5 mL 05-07 18:15: 00 05-07 18:15 :00 No [id number] 5mL 5 mL, Intravenou s, ONCE, 1 dose, On Sun05/07/24 at 1215, Routine [facility] ezetimibe (ZETIA) tablet 10 mg 05-07 15:00: 00 05-12 20:15 :54 No 10mg 10 mg, Oral, DAILY, First dose on Sun05/07/24 at 0900, Until Discontinu ed, Routine [facility] aspirin chewable tablet 81 mg 05-07 15:00: 00 05-12 20:15 :54 No 81mg 81 mg, Oral, DAILY, First dose on Sun05/07/24 at 0900, Until Discontinu ed, Routine [facility] clopidogreL (PLAVIX) 75 mg tablet 75 mg 05-07 15:00: 00 05-07 17:20 :47 No 75mg 75 mg, Oral, DAILY, First dose on Sun05/07/24 at 0900, Until Discontinu ed, Routine [facility] isosorbide dinitrate (ISORDIL) tablet 20 mg 05-07 04:00: 00 05-12 03:53 :28 No 20mg 20 mg, Oral, Q8H, First dose on Sun05/06/24 at 2200, Until Discontinu ed, Routine [facility] hydrALAZINE (APRESOLINE ) tablet 25 mg 05-07 04:00: 00 05-12 00:40 :36 No 25mg 25 mg, Oral, Q8H, First dose on Sun05/06/24 at 2200, Until Discontinu ed, Routine [facility] heparin (porcine) injection 5,000 Units 05-07 04:00: 00 05-12 20:15 :54 No 5000U 5,000 Units, Subcutaneo us, Q8H, First dose on Sun05/06/24 at 2200, Until Discontinu ed, Routine [facility] insulin glargine (LANTUS U-100) injection 10 Units 05-07 03:00: 00 05-12 20:15 :54 No 10U 10 Units, Subcutaneo us, QHS, First dose on Sun05/06/24 at 2100, Until Discontinu ed, Routine [facility] Sliding Scale Insulin - Lispro (HumaLOG) 05-07 03:00: 00 05-12 20:15 :54 No Subcutaneo us, TID MEALS+HS, First dose on Sun05/06/24 at 2100, Until Discontinu ed, Routine [facility] atorvastati n (LIPITOR) tablet 80 mg 05-07 03:00: 00 05-12 20:15 :54 No 80mg 80 mg, Oral, QHS, First dose on Sun05/06/24 at 2100, Until Discontinu ed, Routine [facility] carvediloL (COREG) tablet 12.5 mg 05-07 02:00: 00 05-11 01:52 :57 No 12.5mg 12.5 mg, Oral, BID MEALS, First dose on Sun05/06/24 at 2000, Until Discontinu ed, Routine [facility] glucagon HCL injection 1 mg 05-07 01:45: 10 05-12 20:15 :[address] [facility] dextrose 50 % in water (D50W) injection 25 mL 05-07 01:45: 10 05-12 20:15 :[address] [facility] furosemide (LASIX) injection 80 mg 05-07 01:45: 00 05-12 00:40 :36 No 80mg 80 mg, Slow IV Push, BIDPC, First dose on Sun05/06/24 at 1945, Until Discontinu ed, Routine [facility] ondansetron (ZOFRAN (PF)) injection 4 mg 05-07 01:41: 41 05-12 20:15 :54 No 4mg 4 mg, Slow IV Push, Q6HPRN, Starting on Sun05/06/24 at 1941, Until Sun05/12/24 at 1415, Administer over 2-5 Minutes, [address] [facility] acetaminoph en (TYLENOL) tablet 650 mg 05-07 01:39: 53 05-12 20:15 :[address] [facility] ferrous sulfate 325 mg (65 mg iron) EC tablet 2023-04 2-13 00:00: 00 Yes 325mg Take [address] [facility] sacubitriL- valsartan (ENTRESTO) 24-26 mg tablet 2023-04 00:00: 00 05-12 00:00 :00 No [id number] 1{tbl} Take 1 tablet by mouth in the morning and 1 tablet in the evening. [facility] HYDROcodone -acetaminop hen (NORCO 5) tablet 1 tablet 2023-04 19:15: 00 02-17 19:18 :00 No 1{tbl} 1 tablet, Oral, ONCE, 1 dose, On Sun02/18/24 at 1415, MINESH [facility] magnesium sulfate in water 2 gram/50 mL (4 %) infusion 2 g 2023-04 22:30: 00 01-29 23:21 :00 No 2g 2 g, IV Piggyback, Administer over 60 Minutes, ONCE, 1 dose, On Sun01/30/24 at 1730, Routine [facility] furosemide (LASIX) injection 40 mg 2023-04 22:00: 00 01-29 22:12 :00 No 40mg 40 mg, IV Push, ONCE, 1 dose, On Sun01/30/24 at 1700, MINEHS [facility] aspirin chewable tablet 324 mg 2023-04 21:45: 00 01-29 21:37 :00 No 324mg 324 mg, Oral, ONCE, 1 dose, On Sun01/30/24 at 1645, Routine [facility] famotidine (PEPCID (PF)) injection 20 mg 2023-04 21:00: 00 01-29 21:37 :00 No 20mg 20 mg, Slow IV Push, ONCE, 1 dose, On Sun01/30/24 at 1600, MINESH [facility] ISOSORBIDE DINITRATE 20 mg tablet 01-20 00:00: 00 05-12 00:00 :00 No [id number] TAKE 1 TABLET BY MOUTH EVERY 8 HOURS (TAKE IT WITH HYDRALAZIN E TABLETS) [facility] HYDRALAZINE 25 mg tablet 01-20 00:00: 00 05-12 00:00 :00 No [id number] TAKE 1 TABLET BY MOUTH EVERY 8 HOURS (TAKE IT TOGETHER WITH ISOSORBIDE DINITRATE) [facility] ENTRESTO 24-26 mg tablet 12-16 00:00: 00 03-21 00:00 :00 No [id number] 1{tbl} TAKE 1 TABLET BY MOUTH IN THE MORNING AND [address] [facility] ezetim[facility] (ZETIA) tablet 10 mg 09-08 14:00: 00 Yes 10mg [facility] allopurinoL (ZYLOPRIM) tablet 200 mg 09-08 14:00: 00 Yes 200mg [facility] atorvastati n (LIPITOR) tablet 80 mg 09-08 02:00: 00 Yes 80mg [facility] sacubitriL- valsartan (ENTRESTO) 24-26 mg tablet 1 tablet 09-08 01:00: 00 Yes 1{tbl} [facility] heparin (porcine) injection 5,000 Units 09-07 19:00: 00 Yes 5000U 5,000 Units, Subcutaneo us, Q8H, First dose on 09/08/23 at 1400, Until Discontinu ed, Routine [facility] hydrALAZINE (APRESOLINE ) tablet 25 mg 09-07 19:00: 00 Yes 25mg [facility] pantoprazol e (PROTONIX) EC tablet 40 mg 09-07 16:00: 00 Yes 40mg 40 mg, Oral, DAILY, First dose (after last modificati on) on 09/08/23 at 1100, Until Discontinu ed, [facility] metoprolol succinate XL (TOPROL XL) tablet 50 mg 09-07 16:00: 00 Yes 50mg 50 mg, Oral, DAILY, First dose (after last modificati on) on 09/08/23 at 1100, Until Discontinu ed, Routine [facility] isosorbide dinitrate (ISORDIL) tablet 20 mg 09-07 16:00: 00 Yes 20mg 20 mg, Oral, Q8H, First dose (after last modificati on) on 09/08/23 at 1100, Until Discontinu ed, Routine [facility] furosemide (LASIX) tablet 80 mg 09-07 16:00: 00 Yes 80mg [Order 1 Start] Name: furosemide (LASIX) tablet 80 mg Signed Summary: 80 mg, Oral, QAM, First dose (after last modificati on) on 09/08/23 at 1100, Until Discontinu ed, Routine [Order 1 End] [Order 2 Start] Name: furosemide (LASIX) tablet 80 mg Signed Summary: 80 mg, Oral, QPM, First dose (after last modificati on) on 09/08/23 at 1700, Until Discontinu ed, Routine [Order 2 End] [facility] clopidogreL (PLAVIX) 75 mg tablet 75 mg 09-07 16:00: 00 Yes 75mg 75 mg, Oral, DAILY, First dose (after last modificati on) on 09/08/23 at 1100, Until Discontinu ed, Routine [facility] aspirin chewable tablet 81 mg 09-07 16:00: 00 Yes 81mg 81 mg, Oral, DAILY, First dose (after last modificati on) on 09/08/23 at 1100, Until Discontinu ed, Routine [facility] acetaminoph en (TYLENOL EXTRA STRENGTH) 500 mg tablet 09-07 12:21: 27 Yes 500mg Take 1 tablet by mouth every 6 (six) hours as needed for Pain. [facility] pantoprazol e 40 mg EC tablet 09-07 12:21: 27 05-19 00:00 :00 No 40mg Take 1 tablet by mouth in the morning. [facility] glucagon (GLUCAGEN DIAGNOSTIC KIT) injection 1 mg 09-07 11:49: 01 Yes 1mg 1 mg, Intramuscu lar, PRN, Starting on 09/08/23 at 0649, Until Discontinu ed, MINESH, Blood Glucose < or = 70 mg/dL and patient is NPO, unable to swallow or has mental changes. [facility] dextrose 50 % in water (D50W) injection 25 mL 09-07 11:49: 01 Yes 25mL 25 mL, Slow IV Push, PRN, Starting on Sun09/08/23 at 0649, Until Discontinu ed, MINESH, Blood Glucose < or = 70 mg/dL and patient is NPO, unable to swallow or has mental status changes. [facility] sacubitriL- valsartan 24-26 mg tablet 06-20 00:00: 00 12-16 00:00 :00 No [id number] 1{tbl} Take 1 tablet by mouth in the morning and 1 tablet in the evening. [facility] epoetin renny-epbx (RETACRIT) injection 10,000 Units 05-04 17:30: 00 05-04 16:31 :00 No [id number] 10,000 Units, Subcutaneo us, ONCE, 1 dose, On Sun05/04/23 at 1130, Routine [facility] furosemide 40 mg tablet 04-25 00:00: 00 06-02 00:00 :00 No [id number] Take 2 tablets by mouth every morning AND 2 tablets every evening. [facility] lidocaine 1% (PF) (XYLOCAINE) injection 2022-04 15:43: 08 04-02 16:07 :26 No ONCE INTRA PROCEDURE, Starting on Sun04/02/23 at 0943, Until Sun04/02/23 at 1007, Routine, CV Intraproce dure [facility] midazolam (VERSED) injection 2022-04 15:23: 31 04-02 16:07 :26 No IV Push, ONCE INTRA PROCEDURE, Starting on Sun04/02/23 at 0923, Until Sun04/02/23 at 1007, Routine, CV Intraproce dure [facility] FENTanyl PF (SUBLIMAZE (PF)) injection 2022-04 15:23: 25 04-02 16:07 :26 No Slow IV Push, ONCE INTRA PROCEDURE, Starting on Sun04/02/23 at 0923, Until Sun04/02/23 at 1007, Routine, CV Intraproce dure [facility] acetaminoph en (TYLENOL EXTRA STRENGTH) 500 mg tablet 2022-04 11:51: 29 Yes 500mg Take 500 mg by mouth every 6 (six) hours as needed for Pain. [facility] pantoprazol e 40 mg EC tablet 2022-04 11:51: 29 Yes 40mg Take 1 tablet by mouth in the morning. [facility] acetaminoph en (TYLENOL EXTRA STRENGTH) 500 mg tablet 2022-04 06:28: 24 Yes 500mg Take 500 mg by mouth every 6 (six) hours as needed for Pain. [facility] pantoprazol e 40 mg EC tablet 2022-04 06:28: 24 Yes 40mg Take 1 tablet by mouth in the morning. [facility] metoprolol succinate XL 50 mg 24 hr tablet 2022-04 00:00: 00 05-12 00:00 :00 No [id number] 50mg Take 1 tablet by mouth in the morning. TAKE 1 TABLET BY MOUTH ONCE DAILY [facility] furosemide 40 mg tablet 2022-04 00:00: 00 04-25 00:00 :00 No [id number] Take 2 tablets by mouth every morning AND 1.5 tablets every evening. [facility] hydrALAZINE 25 mg tablet 2022-04 0-02 00:00: 00 01-20 00:00 :00 No [id number] 25mg Take 1 tablet by mouth every 8 (eight) hours. [facility] isosorbide dinitrate 20 mg tablet 2022-04 0-02 00:00: 00 01-20 00:00 :00 No [id number] 20mg Take 1 tablet by mouth every 8 (eight) hours. [facility] sacubitriL- valsartan 24-26 mg tablet 2022-04 0-02 00:00: 00 06-20 00:00 :00 No [id number] .5{tbl} Take 0.5 tablets by mouth in the morning and 0.5 tablets in the evening. [facility] furosemide 40 mg tablet 2022-04 00:00: 00 03-29 00:00 :00 No [id number] 80mg Take 2 tablets by mouth every morning and evening. [facility] allopurinoL (ZYLOPRIM) tablet 200 mg 01-18 14:00: 00 Yes 200mg 200 mg, Oral, DAILY, First dose (after last modificati on) on Sun01/18/23 at 0900, Until Discontinu ed, Routine [facility] insulin glargine (LANTUS U-100) injection 10 Units 01-18 02:00: 00 Yes 10U 10 Units, Subcutaneo us, QHS, First dose (after last modificati on) on Sun01/17/23 at 2100, Until Discontinu ed, Routine [facility] spironolact one 25 mg tablet 01-18 00:00: 00 01-22 00:00 :00 No [id number] 9103 12.5mg Take 0.5 tablets by mouth in the morning for 30 days. [facility] pneumoc 20-jatin conj-dip cr(PF) (PREVNAR 20 (PF)) injection 0.5 mL 01-17 15:44: 36 Yes .5mL 0.5 mL, Intramuscu lar, ONCE-PRIOR TO DISCHARGE, 1 dose, Starting on Sun01/17/23 at 1044, Until Discontinu ed, Routine, Give vaccine prior to discharge [facility] acetaminoph en (TYLENOL EXTRA STRENGTH) 500 mg tablet 01-17 13:24: 01 Yes 500mg Take 500 mg by mouth every 6 (six) hours as needed for Pain. [facility] pantoprazol e 40 mg EC tablet 01-17 13:24: 01 Yes 40mg Take 1 tablet by mouth in the morning. [facility] Sliding Scale Insulin - Lispro (HumaLOG) 01-17 13:00: 00 Yes Subcutaneo us, TID MEALS+HS, First dose (after last modificati on) on Sun01/17/23 at 0800, Until Discontinu ed, Routine [facility] atorvastati n (LIPITOR) tablet 80 mg 01-17 02:00: 00 Yes 80mg 80 mg, Oral, QHS, First dose on Sun01/16/23 at 2100, Until Discontinu ed, Routine [facility] insulin glargine (LANTUS U-100) injection 20 Units 01-17 02:00: 00 01-17 09:00 :44 No 20U 20 Units, Subcutaneo us, QHS, First dose on Sun01/16/23 at 2100, Until Discontinu ed, Routine [facility] sacubitriL- valsartan (ENTRESTO) 24-26 mg tablet 1 tablet 01-17 01:00: 00 Yes 1{tbl} 1 tablet, Oral, BID, First dose (after last modificati on) on Sun01/16/23 at 2000, Until Discontinu ed, Routine
membership correspondent approving Restricted medication : MEGADC [facility] Magnesium Oxide 420 mg Tab 01-17 00:00: 00 Yes [id number] 400mg Take 400 mg by mouth in the morning. [facility] allopurinoL 100 mg tablet 01-17 00:00: 00 05-12 00:00 :00 No [id number] 9109 200mg Take 2 tablets by mouth in the morning. [facility] sacubitriL- valsartan 24-26 mg tablet 01-17 00:00: 00 01-22 00:00 :00 No [id number] 9103 1{tbl} Take 1 tablet by mouth in the morning and 1 tablet in the evening. Do all this for 30 days. [facility] spironolact one (ALDACTONE) tablet 12.5 mg 01-16 15:45: 00 Yes 12.5mg 12.5 mg, Oral, DAILY, First dose on Sun01/16/23 at 1045, Until Discontinu ed, Routine [facility] pantoprazol e (PROTONIX) EC tablet 40 mg 01-16 14:00: 00 Yes 40mg 40 mg, Oral, DAILY, First dose on Sun01/16/23 at 0900, Until Discontinu ed, Routine [facility] metoprolol succinate XL (TOPROL XL) tablet 50 mg 01-16 14:00: 00 Yes 50mg 50 mg, Oral, DAILY, First dose on Sun01/16/23 at 0900, Until Discontinu ed, Routine [facility] magnesium oxide (MAG-OX 400) tablet 400 mg 01-16 14:00: 00 Yes 400mg 400 mg, Oral, DAILY, First dose on Sun01/16/23 at 0900, Until Discontinu ed [facility] ezetimibe (ZETIA) tablet 10 mg 01-16 14:00: 00 Yes 10mg 10 mg, Oral, DAILY, First dose on Sun01/16/23 at 0900, Until Discontinu ed, Routine [facility] clopidogreL (PLAVIX) 75 mg tablet 75 mg 01-16 14:00: 00 Yes 75mg 75 mg, Oral, DAILY, First dose on Sun01/16/23 at 0900, Until Discontinu ed, Routine [facility] aspirin chewable tablet 81 mg 01-16 14:00: 00 Yes 81mg 81 mg, Oral, DAILY, First dose on Sun01/16/23 at 0900, Until Discontinu ed, Routine [facility] sulfur hexafluorid e microsphr (LUMASON) injection 5 mL 01-16 13:53: 00 01-16 13:53 :00 No [id number] 5mL 5 mL, Intravenou s, ONCE, 1 dose, On Sun01/16/23 at 0853, Routine
membership correspondent approving Restricted medication : ANDREA CABRERA [facility] sacubitriL- valsartan (ENTRESTO) 24-26 mg tablet 0.5 tablet 01-16 13:00: 00 01-16 15:32 :38 No .5{tbl} 0.5 tablet, Oral, BID, First dose on Sun01/16/23 at 0800, Until Discontinu ed, Routine
membership correspondent approving Restricted medication : CHET [facility] heparin (porcine) injection 5,000 Units 01-16 03:00: 00 Yes 5000U 5,000 Units, Subcutaneo us, Q8H, First dose on Sun01/15/23 at 2200, Until Discontinu ed, Routine [facility] Sliding Scale Insulin - Lispro (HumaLOG) 01-16 02:00: 00 01-17 09:00 :44 No Subcutaneo us, TID MEALS+HS, First dose on Sun01/15/23 at 2100, Until Discontinu ed, Routine [facility] furosemide (LASIX) injection 40 mg 01-16 01:00: 00 Yes 40mg 40 mg, Slow IV Push, Q12H, First dose on Sun01/15/23 at 2000, Until Discontinu ed, Routine [facility] glucagon (GLUCAGEN DIAGNOSTIC KIT) injection 1 mg 01-16 00:22: 44 Yes 1mg 1 mg, Intramuscu lar, PRN, Starting on Sun01/15/23 at 1922, Until Discontinu ed, MINESH, Blood Glucose < or = 70 mg/dL and patient is NPO, unable to swallow or has mental changes. [facility] dextrose 50 % in water (D50W) injection 25 mL 01-16 00:22: 44 Yes 25mL 25 mL, Slow IV Push, PRN, Starting on Sun01/15/23 at 1922, Until Discontinu ed, MINESH, Blood Glucose < or = 70 mg/dL and patient is NPO, unable to swallow or has mental status changes. [facility] acetaminoph en (TYLENOL) tablet 650 mg 01-15 20:20: 54 Yes 650mg 650 mg, Oral, Q6HPRN, Starting on Sun01/15/23 at 1520, Until Discontinu ed, Routine, Pain (scale 1-3) [facility] metoprolol tartrate (LOPRESSOR) tablet 25 mg 07-12 01:00: 00 Yes 25mg 25 mg, Oral, BID, First dose on Sun07/11/22 at 2000, Until Discontinu ed, Routine [facility] predniSONE (DELTASONE) tablet 40 mg 07-11 20:30: 00 07-11 20:49 :00 No 40mg 40 mg, Oral, ONCE, 1 dose, On Sun07/11/22 at 1530, MINESH [facility] predniSONE 20 mg tablet 07-11 00:00: 00 01-17 00:00 :00 No [id number] 9105 1 PO BID x 4 days [facility] metoprolol succinate XL 50 mg 24 hr tablet 07-03 00:00: 00 04-02 00:00 :00 No [id number] 50mg Take 1 tablet by mouth in the morning. TAKE 1 TABLET BY MOUTH ONCE DAILY [facility] sacubitriL- valsartan 24-26 mg tablet 07-03 00:00: 00 01-17 00:00 :00 No [id number] .5{tbl} Take 0.5 tablets by mouth in the morning and 0.5 tablets in the evening. [facility] metOLazone (ZAROXOLYN) tablet 2.5 mg 05-24 15:00: 00 Yes 2.5mg 2.5 mg, Oral, Q48H, First dose (after last modificati on) on Sun05/24/22 at 0900, Until Discontinu ed, Routine [facility] sacubitriL- valsartan (ENTRESTO) 24-26 mg tablet 0.5 tablet 05-23 15:15: 00 Yes .5{tbl} 0.5 tablet, Oral, BID, First dose (after last modificati on) on Sun05/23/22 at 0915, Until Discontinu ed, Routine
membership correspondent approving Restricted medication : MARK TEJADA [facility] furosemide (LASIX) tablet 40 mg 05-23 15:00: 00 Yes 40mg 40 mg, Oral, QAM+PM, First dose on Sun05/23/22 at 0900, Until Discontinu ed, Routine [facility] acetaminoph en (TYLENOL EXTRA STRENGTH) 500 mg tablet 05-23 14:39: 12 Yes 500mg Take 500 mg by mouth every 6 (six) hours as needed for Pain. [facility] pantoprazol e 40 mg EC tablet 05-23 14:39: 12 Yes 40mg Take 40 mg by mouth daily. [facility] insulin glargine (LANTUS U-100) injection 8 Units 05-23 03:00: 00 Yes 8U 8 Units, Subcutaneo us, QHS, First dose (after last modificati on) on Sun05/22/22 at 2100, Until Discontinu ed, Routine [facility] Blood-Gluco se Meter Kit 05-23 00:00: 00 Yes [id number] Use TID, DX E11.9 (Brand upon insurance approval) [facility] Blood-Gluco se Meter Kit 05-23 00:00: 00 Yes [id number] Use TID, DX E11.9 (Brand upon insurance approval) [facility] Magnesium Oxide 420 mg Tab 05-23 00:00: 00 01-17 00:00 :00 No [id number] 9100 400mg Take 400 mg by mouth daily. [facility] sacubitriL- valsartan 24-26 mg tablet 05-23 00:00: 00 06-23 05:59 :00 No [id number] 9100 .5{tbl} Take 0.5 tablets by mouth in the morning and 0.5 tablets in the evening. Do all this for 30 days. [facility] furosemide (LASIX) injection 40 mg 05-21 02:00: 00 05-23 13:45 :35 No 40mg 40 mg, IV Push, Q12H, First dose (after last modificati on) on Sun05/20/22 at 2000, Until Discontinu ed, MINESH [facility] sacubitriL- valsartan (ENTRESTO) 24-26 mg tablet 1 tablet 05-21 02:00: 00 05-23 13:45 :10 No 1{tbl} 1 tablet, Oral, BID, First dose on 05/20/22 at 2000, Until Discontinu ed, Routine
membership correspondent approving Restricted medication : MARK TEJADA [facility] furosemide (LASIX) injection 40 mg 05-20 16:15: 00 05-20 16:18 :00 No 40mg 40 mg, Slow IV Push, ONCE, 1 dose, On 05/20/22 at 1015, Routine [facility] metOLazone (ZAROXOLYN) tablet 5 mg 05-20 15:30: 00 05-22 23:16 :20 No 5mg 5 mg, Oral, DAILY, First dose on 05/20/22 at 0930, Until Discontinu ed, Routine [facility] pantoprazol e (PROTONIX) EC tablet 40 mg 05-20 15:00: 00 Yes 40mg 40 mg, Oral, DAILY, First dose on 05/20/22 at 0900, Until Discontinu ed, Routine [facility] metoprolol succinate XL (TOPROL XL) tablet 50 mg 05-20 15:00: 00 Yes 50mg 50 mg, Oral, DAILY, First dose on 05/20/22 at 0900, Until Discontinu ed, Routine [facility] magnesium oxide (MAG-OX 400) tablet 400 mg 05-20 15:00: 00 Yes 400mg 400 mg, Oral, DAILY, First dose on 05/20/22 at 0900, Until Discontinu ed [facility] ezetimibe (ZETIA) tablet 10 mg 05-20 15:00: 00 Yes 10mg 10 mg, Oral, DAILY, First dose on 05/20/22 at 0900, Until Discontinu ed, Routine [facility] clopidogreL (PLAVIX) 75 mg tablet 75 mg 05-20 15:00: 00 Yes 75mg 75 mg, Oral, DAILY, First dose on 05/20/22 at 0900, Until Discontinu ed, Routine [facility] aspirin chewable tablet 81 mg 05-20 15:00: 00 Yes 81mg 81 mg, Oral, DAILY, First dose on Sun05/20/22 at 0900, Until Discontinu ed, Routine [facility] furosemide (LASIX) injection 40 mg 05-20 14:00: 00 05-20 15:26 :11 No 40mg 40 mg, IV Push, Q12H, First dose (after last reorder) on Sun05/20/22 at 0800, Until Discontinu ed, MINESH [facility] heparin (porcine) injection 5,000 Units 05-20 04:00: 00 Yes 5000U 5,000 Units, Subcutaneo us, Q8H, First dose on Sun05/19/22 at 2200, Until Discontinu ed, Routine [facility] Sliding Scale Insulin - Lispro (HumaLOG) + Fsbg Testing 05-20 03:00: 00 Yes Subcutaneo us, TID MEALS+HS, First dose on Sun05/19/22 at 2100, Until Discontinu ed, Routine [facility] atorvastati n (LIPITOR) tablet 80 mg 05-20 03:00: 00 Yes 80mg 80 mg, Oral, QHS, First dose on Sun05/19/22 at 2100, Until Discontinu ed, Routine [facility] insulin glargine (LANTUS U-100) injection 24 Units 05-20 03:00: 00 05-23 02:38 :35 No 24U 24 Units, Subcutaneo us, QHS, First dose on Sun05/19/22 at 2100, Until Discontinu ed, Routine [facility] furosemide (LASIX) injection 40 mg 05-20 02:00: 00 05-20 04:11 :50 No 40mg 40 mg, Slow IV Push, Q12H, First dose on Sun05/19/22 at 2000, Until Discontinu ed, Routine [facility] magnesium sulfate in water 2 gram/50 mL (4 %) infusion 2 g 05-20 01:00: 00 05-20 04:14 :00 No 2g 2 g, IV Piggyback, Administer over 60 Minutes, ONCE, 1 dose, On Sun05/19/22 at 1900, Routine [facility] glucagon (GLUCAGEN DIAGNOSTIC KIT) injection 1 mg 05-20 00:16: 53 Yes 1mg 1 mg, Intramuscu lar, PRN, Starting on Sun05/19/22 at 1816, Until Discontinu ed, MINESH, Blood Glucose < or = 70 mg/dL and patient is NPO, unable to swallow or has mental changes. [facility] dextrose 50 % in water (D50W) injection 25 mL 05-20 00:16: 53 Yes 25mL 25 mL, Slow IV Push, PRN, Starting on Sun05/19/22 at 1816, Until Discontinu ed, MINESH, Blood Glucose < or = 70 mg/dL and patient is NPO, unable to swallow or has mental status changes. [facility] acetaminoph en (TYLENOL) tablet 650 mg 05-20 00:13: 50 Yes 650mg 650 mg, Oral, Q6HPRN, Starting on Sun05/19/22 at 1813, Until Discontinu ed, Routine, Pain (scale 1-3) [facility] nitroglycer in (NITROSTAT) sublingual tablet 0.4 mg 05-20 00:13: 11 Yes .4mg 0.4 mg, Sublingual , Q5MIN PRN, Starting on Sun05/19/22 at 1813, Until Discontinu ed, Routine, Chest pain [facility] perflutren protein-A microsphr (OPTISON) injection 3 mL 05-19 20:00: 00 05-19 20:00 :00 No [id number] 3mL 3 mL, IV Push, ONCE, 1 dose, On Sun05/19/22 at 1400, Routine [facility] furosemide (LASIX) injection 40 mg 05-19 19:00: 00 05-19 18:54 :00 No 40mg 40 mg, IV Push, ONCE, 1 dose, On Sun05/19/22 at 1300, MINESH [facility] acetaminoph en (TYLENOL EXTRA STRENGTH) 500 mg tablet 05-19 18:17: 47 Yes 500mg Take 500 mg by mouth every 6 (six) hours as needed for Pain. [facility] pantoprazol e 40 mg EC tablet 05-19 18:17: 47 Yes 40mg Take 40 mg by mouth daily. [facility] ezetimibe 10 mg tablet 05-19 00:00: 00 06-02 00:00 :00 No 10mg Take 1 tablet by mouth in the morning. [facility] pantoprazol e 40 mg EC tablet 05-09 09:51: 37 Yes 40mg Take 40 mg by mouth daily. [facility] glimepiride 1 mg tablet 05-09 00:00: 00 05-12 00:00 :00 No TAKE 1 TABLET BY MOUTH ONCE DAILY WITH BREAKFAST OR THE FIRST MEAL OF THE DAY [facility] furosemide 40 mg tablet 05-09 00:00: 00 01-22 00:00 :00 No [id number] 40mg Take 1 tablet by mouth every morning and evening. [facility] lisinopriL 5 mg tablet 05-08 00:00: 00 06-12 00:00 :00 No 5mg Take 5 mg by mouth in the morning. [facility] metoprolol succinate XL 50 mg 24 hr tablet 04-24 00:00: 00 07-03 00:00 :00 No [id number] 50mg Take 1 tablet by mouth in the morning. TAKE 1 TABLET BY MOUTH ONCE DAILY [facility] magnesium oxide 420 mg Tab 2020-04 00:00: 00 05-23 00:00 :00 No [id number] 9100 400mg Take 400 mg by mouth daily. [facility] acetaminoph en (TYLENOL EXTRA STRENGTH) 500 mg tablet 2020-04 13:10: 17 Yes 500mg Take 1 tablet by mouth every 6 (six) hours as needed for Pain. [facility] pantoprazol e 40 mg EC tablet 2020-04 13:10: 17 Yes 40mg Take 1 tablet by mouth in the morning. [facility] spironolact one 25 mg tablet 2020-04 00:00: 00 05-18 00:00 :00 No [id number] 9100 25mg Take 1 tablet by mouth 2 (two) times daily. [facility] furosemide 40 mg tablet 2020-04 00:00: 00 05-09 00:00 :00 No [id number] 40mg Take 1 tablet by mouth every morning and evening. [facility] metoprolol succinate XL 50 mg 24 hr tablet 2020-04 00:00: 00 04-24 00:00 :00 No [id number] 50mg Take 1 tablet by mouth daily. TAKE 1 TABLET BY MOUTH ONCE DAILY [facility] Insulin [place], Disposable, (BD INSULIN PEN NEEDLE UF) 29 gauge x 1/2" Ndle 11-17 00:00: 00 Yes [id number] USE DIRECTED WITH KWIKPEN ONCE A DAY [facility] Insulin [place], Disposable, (BD INSULIN PEN NEEDLE UF) 29 gauge x 1/2" Ndle 11-17 00:00: 00 Yes [id number] USE DIRECTED WITH KWIKPEN ONCE A DAY [facility] TRESIBA FLEXTOUCH U-100 100 unit/mL (3 mL) InPn 06-05 00:00: 00 Yes [id number] INJECT 24 UNITS UNDER THE SKIN AT BEDTIME [facility] glipiZIDE XL 10 mg 24 hr tablet 06-01 00:00: 00 03-09 00:00 :00 No [id number] 20mg Take 2 tablets by mouth daily with breakfast. [facility] isosorbide mononitrate 30 mg 24 hr tablet 05-24 00:00: 00 03-01 00:00 :00 No [id number] 9100 30mg Take 1 tablet by mouth daily. [facility] metoprolol succinate XL 50 mg 24 hr tablet 2- 00:00: 00 03-01 00:00 :00 No [id number] TAKE 1 TABLET BY MOUTH ONCE DAILY [facility] lisinopril 5 mg tablet 2- 00:00: 00 03-01 00:00 :00 No [id number] 10mg Take 2 tablets by mouth daily. [facility] furosemide 40 mg tablet 1- 00:00: 03-11 00:00 :00 No [id number] 20mg Take 0.5 tablets by mouth daily. [facility] spironolact one 25 mg tablet 1-06 00:00: 00 03-11 00:00 :00 No [id number] 9100 25mg Take 1 tablet by mouth daily. [facility] clopidogrel 75 mg tablet 2018-04 0 00:00: 00 05-19 00:00 :00 No [id number] 9100 TAKE 1 TABLET BY MOUTH ONCE DAILY [facility] atorvastati n 80 mg tablet 2018-04 0-24 00:00: 00 Yes [id number] 9100 TAKE 1 TABLET BY MOUTH ONCE DAILY [facility] metFORMIN 1,000 mg tablet 2018-04 0-03 00:00: 00 03-09 00:00 :00 No [id number] TAKE ONE TABLET BY MOUTH ONCE DAILY WITH BREAKFAST [facility] allopurinol 100 mg tablet 4-02 00:00: 00 01-17 00:00 :00 No [id number] 9109 100mg Take 1 tablet by mouth daily. [facility] ACCU-CHEK MASON strip 3-14 00:00: 00 05-23 00:00 :00 No Use as directed, TID, DX:E11.9 [facility] Insulin Syringe-Nee dle U-100 0.5 mL 31 gauge x 5/16 Syrg - 00:00: 00 Yes [id number] Inject insulin 2 times a day. Dx code E11.9. [facility] Insulin Syringe-Nee dle U-100 0.5 mL 31 gauge x 5/16 Syrg 06-19 00:00: 00 Yes [id number] Inject insulin 2 times a day. Dx code E11.9. [facility] lancets (FREESTYLE LANCETS) 28 gauge Misc 06-19 00:00: 00 Yes Use TID, DX E11.9 (Brand upon insurance approval) [facility] lancets-blo od glucose strips 30 gauge Cmpk 06-19 00:00: 00 05-23 00:00 :00 No 1{each} 1 Each 3 (three) times daily. Use TID, DX E11.9 (Brand upon insurance approval) Patient request Verio flex one touch. [facility] ipratropium 0.03 % nasal spray 2017-04 00:00: 00 Yes [id number] 2{spray } Use 2 Sprays in each nostril 3 (three) times daily. [facility] nitroglycer in (NITROSTAT) 0.4 mg sublingual tablet 2017-04 00:00: [id number] 1 tablet under the tongue every 5 (five) minutes as needed for Chest pain. [facility] Insulin [place], Disposable, 30 gauge x 5/16" Ndle 09-07 00:00: 00 Yes Use as directed [facility] Insulin [place], Disposable, 30 gauge x 5/16" Ndle 09-07 00:00: 00 Yes Use as directed [facility] Blood-Gluco se Meter Kit 2016-04 00:00: 00 05-23 00:00 :00 No [id number] Use TID, DX E11.9 (Brand upon insurance approval) [facility] aspirin 81 mg chewable tablet 12-16 00:00: 00 06-02 00:00 :00 No 81mg Take 1 tablet by mouth daily. [facility] Allopurinol 100 MG Allopurinol 100 MG No 1{table t} QD Allopurino l 100 MG Fluticasone Propionate 50 MCG/ACT Fluticasone Propionate 50 MCG/ACT No 1{spray _in_eac h_nostr il} QD Fluticason e Propionate 50 MCG/ACT Loratadine 10 MG Loratadine 10 MG No 1{table t} QD Loratadine 10 MG Magnesium Oxide 400 MG Magnesium Oxide 400 MG No 1{table t_as_ne eded} QD Magnesium Oxide 400 MG Amoxicillin -Pot Clavulanate 500-125 MG Amoxicillin -Pot Clavulanate 500-125 MG No 1{table t} BID Amoxicilli n-Pot Clavulanat e 500-125 MG Tresiba 100 UNIT/ML Tresiba 100 UNIT/ML No Tresiba 100 UNIT/ML Midodrine HCl 10 MG Midodrine HCl 10 MG No 1{table t} BID Midodrine HCl 10 MG OneTouch Ultra - OneTouch Ultra - No Immunizations Ordered Immunization Name Filled Immunization Name Date Status Comments Source Influenza Virus Vaccine Quad IM 3+ YRS 2023-12-16 00:00:00 Completed [facility] Pneumococcal Polysaccharide, PPSV23 (PNEUMOVAX) 2023-12-16 00:00:00 Completed [facility] Influenza Virus Vaccine 2023-12-16 00:00:00 Completed [facility] TDAP 2023-12-16 00:00:00 Completed [facility] Influenza Virus Vaccine Recomb Quad IM, Preserv and ABX Free 18-64 YRS 2023-12-16 00:00:00 Completed [facility] Influenza Virus Vaccine Quad IM 3+ YRS 2023-09-10 00:00:00 Completed [facility] Pneumococcal Polysaccharide, PPSV23 (PNEUMOVAX) 2023-09-10 00:00:00 Completed [facility] Influenza Virus Vaccine 2023-09-10 00:00:00 Completed [facility] TDAP 2023-09-10 00:00:00 Completed [facility] Influenza Virus Vaccine Recomb Quad IM, Preserv and ABX Free 18-64 YRS 2023-09-10 00:00:00 Completed [facility] Influenza Virus Vaccine Quad IM 3+ YRS 2023-09-08 05:23:00 Completed [facility] Pneumococcal Polysaccharide, PPSV23 (PNEUMOVAX) 2023-09-08 05:23:00 Completed [facility] Influenza Virus Vaccine 2023-09-08 05:23:00 Completed [facility] TDAP 2023-09-08 05:23:00 Completed [facility] Influenza Virus Vaccine Recomb Quad IM, Preserv and ABX Free 18-64 YRS 2023-09-08 05:23:00 Completed [facility] Influenza Virus Vaccine 2023-06-18 00:00:00 Completed [facility] TDAP 2023-06-18 00:00:00 Completed [facility] Influenza Virus Vaccine Recomb Quad IM, Preserv and ABX Free 18-64 YRS 2023-06-18 00:00:00 Completed [facility] Influenza Virus Vaccine Quad IM 3+ YRS 2023-06-18 00:00:00 Completed [facility] Pneumococcal Polysaccharide, PPSV23 (PNEUMOVAX) 2023-06-18 00:00:00 Completed [facility] Influenza Virus Vaccine Quad IM 3+ YRS 2023-05-04 10:00:00 Completed [facility] Pneumococcal Polysaccharide, PPSV23 (PNEUMOVAX) 2023-05-04 10:00:00 Completed [facility] Influenza Virus Vaccine 2023-05-04 10:00:00 Completed [facility] TDAP 2023-05-04 10:00:00 Completed [facility] Influenza Virus Vaccine Recomb Quad IM, Preserv and ABX Free 18-64 YRS 2023-05-04 10:00:00 Completed [facility] Influenza Virus Vaccine Quad IM 3+ YRS 2023-05-04 00:00:00 Completed [facility] Pneumococcal Polysaccharide, PPSV23 (PNEUMOVAX) 2023-05-04 00:00:00 Completed [facility] Influenza Virus Vaccine 2023-05-04 00:00:00 Completed [facility] TDAP 2023-05-04 00:00:00 Completed [facility] Influenza Virus Vaccine Recomb Quad IM, Preserv and ABX Free 18-64 YRS 2023-05-04 00:00:00 Completed [facility] Influenza Virus Vaccine Quad IM 3+ YRS 2023-05-04 00:00:00 Completed [facility] Pneumococcal Polysaccharide, PPSV23 (PNEUMOVAX) 2023-05-04 00:00:00 Completed [facility] Influenza Virus Vaccine 2023-05-04 00:00:00 Completed [facility] TDAP 2023-05-04 00:00:00 Completed [facility] Influenza Virus Vaccine Recomb Quad IM, Preserv and ABX Free 18-64 YRS 2023-05-04 00:00:00 Completed [facility] Influenza Virus Vaccine Quad IM 3+ YRS 2023-05-03 10:45:00 Completed [facility] Pneumococcal Polysaccharide, PPSV23 (PNEUMOVAX) 2023-05-03 10:45:00 Completed [facility] Influenza Virus Vaccine 2023-05-03 10:45:00 Completed [facility] TDAP 2023-05-03 10:45:00 Completed [facility] Influenza Virus Vaccine Recomb Quad IM, Preserv and ABX Free 18-64 YRS 2023-05-03 10:45:00 Completed [facility] Influenza Virus Vaccine Quad IM 3+ YRS 2023-05-03 10:00:00 Completed [facility] Pneumococcal Polysaccharide, PPSV23 (PNEUMOVAX) 2023-05-03 10:00:00 Completed [facility] Influenza Virus Vaccine 2023-05-03 10:00:00 Completed [facility] TDAP 2023-05-03 10:00:00 Completed [facility] Influenza Virus Vaccine Recomb Quad IM, Preserv and ABX Free 18-64 YRS 2023-05-03 10:00:00 Completed [facility] Influenza Virus Vaccine Quad IM 3+ YRS 2023-05-03 00:00:00 Completed [facility] Pneumococcal Polysaccharide, PPSV23 (PNEUMOVAX) 2023-05-03 00:00:00 Completed [facility] Influenza Virus Vaccine 2023-05-03 00:00:00 Completed [facility] TDAP 2023-05-03 00:00:00 Completed [facility] Influenza Virus Vaccine Recomb Quad IM, Preserv and ABX Free 18-64 YRS 2023-05-03 00:00:00 Completed [facility] Influenza Virus Vaccine Quad IM 3+ YRS 2023-04-13 00:00:00 Completed [facility] Pneumococcal Polysaccharide, PPSV23 (PNEUMOVAX) 2023-04-13 00:00:00 Completed [facility] Influenza Virus Vaccine 2023-04-13 00:00:00 Completed [facility] TDAP 2023-04-13 00:00:00 Completed [facility] Influenza Virus Vaccine Recomb Quad IM, Preserv and ABX Free 18-64 YRS 2023-04-13 00:00:00 Completed [facility] Influenza Virus Vaccine 2023-04-06 14:30:00 Completed [facility] TDAP 2023-04-06 14:30:00 Completed [facility] Influenza Virus Vaccine Recomb Quad IM, Preserv and ABX Free 18-64 YRS 2023-04-06 14:30:00 Completed [facility] Influenza Virus Vaccine Quad IM 3+ YRS 2023-04-06 14:30:00 Completed [facility] Pneumococcal Polysaccharide, PPSV23 (PNEUMOVAX) 2023-04-06 14:30:00 Completed [facility] Influenza Virus Vaccine Quad IM 3+ YRS 2023-04-02 10:00:00 Completed [facility] Pneumococcal Polysaccharide, PPSV23 (PNEUMOVAX) 2023-04-02 10:00:00 Completed [facility] Influenza Virus Vaccine 2023-04-02 10:00:00 Completed [facility] TDAP 2023-04-02 10:00:00 Completed [facility] Influenza Virus Vaccine Recomb Quad IM, Preserv and ABX Free 18-64 YRS 2023-04-02 10:00:00 Completed [facility] Influenza Virus Vaccine Quad IM 3+ YRS 2023-04-02 00:00:00 Completed [facility] Pneumococcal Polysaccharide, PPSV23 (PNEUMOVAX) 2023-04-02 00:00:00 Completed [facility] Influenza Virus Vaccine 2023-04-02 00:00:00 Completed [facility] TDAP 2023-04-02 00:00:00 Completed [facility] Influenza Virus Vaccine Recomb Quad IM, Preserv and ABX Free 18-64 YRS 2023-04-02 00:00:00 Completed [facility] Influenza Virus Vaccine Quad IM 3+ YRS 2023-04-02 00:00:00 Completed [facility] Pneumococcal Polysaccharide, PPSV23 (PNEUMOVAX) 2023-04-02 00:00:00 Completed [facility] Influenza Virus Vaccine 2023-04-02 00:00:00 Completed [facility] TDAP 2023-04-02 00:00:00 Completed [facility] Influenza Virus Vaccine Recomb Quad IM, Preserv and ABX Free 18-64 YRS 2023-04-02 00:00:00 Completed [facility] Influenza Virus Vaccine Quad IM 3+ YRS 2023-03-29 14:30:00 Completed [facility] Pneumococcal Polysaccharide, PPSV23 (PNEUMOVAX) 2023-03-29 14:30:00 Completed [facility] Influenza Virus Vaccine 2023-03-29 14:30:00 Completed [facility] TDAP 2023-03-29 14:30:00 Completed [facility] Influenza Virus Vaccine Recomb Quad IM, Preserv and ABX Free 18-64 YRS 2023-03-29 14:30:00 Completed [facility] Influenza Virus Vaccine Quad IM 3+ YRS 2023-03-29 13:00:00 Completed [facility] Pneumococcal Polysaccharide, PPSV23 (PNEUMOVAX) 2023-03-29 13:00:00 Completed [facility] Influenza Virus Vaccine 2023-03-29 13:00:00 Completed [facility] TDAP 2023-03-29 13:00:00 Completed [facility] Influenza Virus Vaccine Recomb Quad IM, Preserv and ABX Free 18-64 YRS 2023-03-29 13:00:00 Completed [facility] Influenza Virus Vaccine Quad IM 3+ YRS 2023-03-23 00:00:00 Completed [facility] Pneumococcal Polysaccharide, PPSV23 (PNEUMOVAX) 2023-03-23 00:00:00 Completed [facility] Influenza Virus Vaccine 2023-03-23 00:00:00 Completed [facility] TDAP 2023-03-23 00:00:00 Completed [facility] Influenza Virus Vaccine Recomb Quad IM, Preserv and ABX Free 18-64 YRS 2023-03-23 00:00:00 Completed [facility] Influenza Virus Vaccine Quad IM 3+ YRS 2023-03-16 00:00:00 Completed [facility] Pneumococcal Polysaccharide, PPSV23 (PNEUMOVAX) 2023-03-16 00:00:00 Completed [facility] Influenza Virus Vaccine 2023-03-16 00:00:00 Completed [facility] TDAP 2023-03-16 00:00:00 Completed [facility] Influenza Virus Vaccine Recomb Quad IM, Preserv and ABX Free 18-64 YRS 2023-03-16 00:00:00 Completed [facility] Influenza Virus Vaccine Quad IM 3+ YRS 2023-03-14 07:45:00 Completed [facility] Pneumococcal Polysaccharide, PPSV23 (PNEUMOVAX) 2023-03-14 07:45:00 Completed [facility] Influenza Virus Vaccine 2023-03-14 07:45:00 Completed [facility] TDAP 2023-03-14 07:45:00 Completed [facility] Influenza Virus Vaccine Recomb Quad IM, Preserv and ABX Free 18-64 YRS 2023-03-14 07:45:00 Completed [facility] Influenza Virus Vaccine Quad IM 3+ YRS 2023-03-14 00:00:00 Completed [facility] Pneumococcal Polysaccharide, PPSV23 (PNEUMOVAX) 2023-03-14 00:00:00 Completed [facility] Influenza Virus Vaccine 2023-03-14 00:00:00 Completed [facility] TDAP 2023-03-14 00:00:00 Completed [facility] Influenza Virus Vaccine Recomb Quad IM, Preserv and ABX Free 18-64 YRS 2023-03-14 00:00:00 Completed [facility] Influenza Virus Vaccine 2023-01-22 16:30:00 Completed [facility] TDAP 2023-01-22 16:30:00 Completed [facility] Influenza Virus Vaccine Quad .5 mL IM 6+ MO (FLUZONE/FLULAVAL/F LUARIX) 2023-01-22 16:30:00 Completed [facility] Influenza Virus Vaccine Recomb Quad IM, Preserv and ABX Free 18-64 YRS 2023-01-22 16:30:00 Completed [facility] Pneumococcal Polysaccharide, PPSV23 (PNEUMOVAX) 2023-01-22 16:30:00 Completed [facility] Influenza Virus Vaccine 2023-01-18 00:00:00 Completed [facility] TDAP 2023-01-18 00:00:00 Completed [facility] Influenza Virus Vaccine Quad .5 mL IM 6+ MO (FLUZONE/FLULAVAL/F LUARIX) 2023-01-18 00:00:00 Completed [facility] Influenza Virus Vaccine Recomb Quad IM, Preserv and ABX Free 18-64 YRS 2023-01-18 00:00:00 Completed [facility] Pneumococcal Polysaccharide, PPSV23 (PNEUMOVAX) 2023-01-18 00:00:00 Completed [facility] Pneumococcal Polysaccharide, PPSV23 (PNEUMOVAX) 2023-01-15 12:30:00 Completed [facility] Influenza Virus Vaccine 2023-01-15 12:30:00 Completed [facility] TDAP 2023-01-15 12:30:00 Completed [facility] Influenza Virus Vaccine Quad .5 mL IM 6+ MO (FLUZONE/FLULAVAL/F LUARIX) 2023-01-15 12:30:00 Completed [facility] Influenza Virus Vaccine Recomb Quad IM, Preserv and ABX Free 18-64 YRS 2023-01-15 12:30:00 Completed [facility] Influenza Virus Vaccine 2023-01-11 10:40:00 Completed [facility] TDAP 2023-01-11 10:40:00 Completed [facility] Influenza Virus Vaccine Quad .5 mL IM 6+ MO (FLUZONE/FLULAVAL/F LUARIX) 2023-01-11 10:40:00 Completed [facility] Influenza Virus Vaccine Recomb Quad IM, Preserv and ABX Free 18-64 YRS 2023-01-11 10:40:00 Completed [facility] Pneumococcal Polysaccharide, PPSV23 (PNEUMOVAX) 2023-01-11 10:40:00 Completed [facility] Prevnar 20 (PCV20) Prevnar 20 (PCV20) 2022-06-14 08:49:00 Completed [facility] Boostrix (Tdap) Boostrix (Tdap) 2022-06-14 08:49:00 Completed [facility] Flucelvax - multidose vial Flucelvax - multidose vial 2022-03-30 14:26:00 Completed [facility] Flucelvax - multidose vial Flucelvax - multidose vial 2022-03-30 14:26:00 Completed [facility] Flucelvax - multidose vial Flucelvax - multidose vial 2022-03-30 14:26:00 Completed [facility] Flucelvax - multidose vial Flucelvax - multidose vial 2022-03-30 14:26:00 Completed [facility] Flucelvax - multidose vial Flucelvax - multidose vial 2022-03-30 14:26:00 Completed [facility] Flucelvax - multidose vial Flucelvax - multidose vial 2021-02-25 15:40:00 Completed [facility] Flucelvax - multidose vial Flucelvax - multidose vial 2021-02-25 15:40:00 Completed [facility] Flucelvax - multidose vial Flucelvax - multidose vial 2021-02-25 15:40:00 Completed [facility] Flucelvax - multidose vial Flucelvax - multidose vial 2021-02-25 15:40:00 Completed [facility] Flucelvax - multidose vial Flucelvax - multidose vial 2021-02-25 15:40:00 Completed [facility] Flucelvax - multidose vial Flucelvax - multidose vial 2021-02-25 15:40:00 Completed [facility] Flucelvax - multidose vial Flucelvax - multidose vial 2021-02-25 15:40:00 Completed [facility] Flucelvax - multidose vial Flucelvax - multidose vial 2021-02-25 15:40:00 Completed [facility] Flucelvax - multidose vial Flucelvax - multidose vial 2021-02-25 15:40:00 Completed [facility] Flucelvax - multidose vial Flucelvax - multidose vial 2021-02-25 15:40:00 Completed [facility] Flucelvax - multidose vial Flucelvax - multidose vial 2021-02-25 15:40:00 Completed [facility] TDAP 2020-01-09 00:00:00 Completed [facility] Influenza Virus Vaccine Recomb Quad IM, Preserv and ABX Free 18-64 YRS 2020-01-09 00:00:00 Completed [facility] TDAP 2020-01-09 00:00:00 Completed [facility] Influenza Virus Vaccine Recomb Quad IM, Preserv and ABX Free 18-64 YRS 2020-01-09 00:00:00 Completed [facility] TDAP 2020-01-09 00:00:00 Completed [facility] Influenza Virus Vaccine Recomb Quad IM, Preserv and ABX Free 18-64 YRS 2020-01-09 00:00:00 Completed [facility] TDAP 2020-01-09 00:00:00 Completed [facility] Influenza Virus Vaccine Recomb Quad IM, Preserv and ABX Free 18-64 YRS 2020-01-09 00:00:00 Completed [facility] TDAP 2020-01-09 00:00:00 Completed [facility] Influenza Virus Vaccine Recomb Quad IM, Preserv and ABX Free 18-64 YRS 2020-01-09 00:00:00 Completed [facility] TDAP 2020-01-09 00:00:00 Completed [facility] Influenza Virus Vaccine Recomb Quad IM, Preserv and ABX Free 18-64 YRS 2020-01-09 00:00:00 Completed [facility] TDAP 2020-01-09 00:00:00 Completed [facility] Influenza Virus Vaccine Recomb Quad IM, Preserv and ABX Free 18-64 YRS 2020-01-09 00:00:00 Completed [facility] TDAP 2020-01-09 00:00:00 Completed [facility] Influenza Virus Vaccine Recomb Quad IM, Preserv and ABX Free 18-64 YRS 2020-01-09 00:00:00 Completed [facility] TDAP 2020-01-09 00:00:00 Completed [facility] Influenza Virus Vaccine Recomb Quad IM, Preserv and ABX Free 18-64 YRS 2020-01-09 00:00:00 Completed [facility] TDAP 2020-01-09 00:00:00 Completed [facility] Influenza Virus Vaccine Recomb Quad IM, Preserv and ABX Free 18-64 YRS 2020-01-09 00:00:00 Completed [facility] TDAP 2020-01-09 00:00:00 Completed [facility] Influenza Virus Vaccine Recomb Quad IM, Preserv and ABX Free 18-64 YRS 2020-01-09 00:00:00 Completed [facility] TDAP 2020-01-09 00:00:00 Completed [facility] Influenza Virus Vaccine Recomb Quad IM, Preserv and ABX Free 18-64 YRS 2020-01-09 00:00:00 Completed [facility] TDAP 2020-01-09 00:00:00 Completed [facility] Influenza Virus Vaccine Recomb Quad IM, Preserv and ABX Free 18-64 YRS 2020-01-09 00:00:00 Completed [facility] TDAP 2020-01-09 00:00:00 Completed [facility] Influenza Virus Vaccine Recomb Quad IM, Preserv and ABX Free -64 [facility] 2020-01-09 00:00:00 Completed [facility] TDAP 2020-01-09 00:00:00 Completed [facility] Influenza Virus Vaccine Recomb Quad IM, Preserv and ABX Free -64 [facility] 2020-01-09 00:00:00 Completed [facility] TDAP 2020-01-09 00:00:00 Completed [facility] Influenza Virus Vaccine Recomb Quad IM, Preserv and ABX Free -64 [facility] 2020-01-09 00:00:00 Completed [facility] TDAP 2020-01-09 00:00:00 Completed [facility] Influenza Virus Vaccine Recomb Quad IM, Preserv and ABX Free 18-64 YRS 2020-01-09 00:00:00 Completed [facility] TDAP 2020-01-09 00:00:00 Completed [facility] Influenza Virus Vaccine Recomb Quad IM, Preserv and ABX Free 18-64 YRS 2020-01-09 00:00:00 Completed [facility] TDAP 2020-01-09 00:00:00 Completed [facility] Influenza Virus Vaccine Recomb Quad IM, Preserv and ABX Free 18-64 YRS 2020-01-09 00:00:00 Completed [facility] TDAP 2020-01-09 00:00:00 Completed [facility] Influenza Virus Vaccine Recomb Quad IM, Preserv and ABX Free 18-64 YRS 2020-01-09 00:00:00 Completed [facility] TDAP 2020-01-09 00:00:00 Completed [facility] Influenza Virus Vaccine Recomb Quad IM, Preserv and ABX Free 18-64 YRS 2020-01-09 00:00:00 Completed [facility] TDAP 2020-01-09 00:00:00 Completed [facility] Influenza Virus Vaccine Recomb Quad IM, Preserv and ABX Free -64 YRS 2020-01-09 00:00:00 Completed [facility] TDAP 2020-01-09 00:00:00 Completed [facility] Influenza Virus Vaccine Recomb Quad IM, Preserv and ABX Free 18-64 YRS 2020-01-09 00:00:00 Completed [facility] TDAP 2020-01-09 00:00:00 Completed [facility] Influenza Virus Vaccine Recomb Quad IM, Preserv and ABX Free -64 YRS 2020-01-09 00:00:00 Completed [facility] TDAP 2020-01-09 00:00:00 Completed [facility] Influenza Virus Vaccine Recomb Quad IM, Preserv and ABX Free 18-64 YRS 2020-01-09 00:00:00 Completed [facility] TDAP 2020-01-09 00:00:00 Completed [facility] Influenza Virus Vaccine Recomb Quad IM, Preserv and ABX Free -64 YRS 2020-01-09 00:00:00 Completed [facility] TDAP 2020-01-09 00:00:00 Completed [facility] Influenza Virus Vaccine Recomb Quad IM, Preserv and ABX Free 18-64 YRS 2020-01-09 00:00:00 Completed [facility] TDAP 2020-01-09 00:00:00 Completed [facility] Influenza Virus Vaccine Recomb Quad IM, Preserv and ABX Free 18-64 YRS 2020-01-09 00:00:00 Completed [facility] Influenza Virus Vaccine 2018-01-24 00:00:00 Completed [facility] Pneumococcal Polysaccharide, PPSV23 (PNEUMOVAX) 2018-01-24 00:00:00 Completed [facility] Influenza Virus Vaccine Quad .5 mL IM 6+ MO 2018-01-24 00:00:00 Completed [facility] Influenza Virus Vaccine 2018-01-24 00:00:00 Completed [facility] Pneumococcal Polysaccharide, PPSV23 (PNEUMOVAX) 2018-01-24 00:00:00 Completed [facility] Influenza Virus Vaccine Quad .5 mL IM 6+ MO 2018-01-24 00:00:00 Completed [facility] Influenza Virus Vaccine 2018-01-24 00:00:00 Completed [facility] Pneumococcal Polysaccharide, PPSV23 (PNEUMOVAX) 2018-01-24 00:00:00 Completed [facility] Influenza Virus Vaccine Quad .5 mL IM 6+ MO 2018-01-24 00:00:00 Completed [facility] Influenza Virus Vaccine 2018-01-24 00:00:00 Completed [facility] Pneumococcal Polysaccharide, PPSV23 (PNEUMOVAX) 2018-01-24 00:00:00 Completed [facility] Influenza Virus Vaccine Quad .5 mL IM 6+ MO 2018-01-24 00:00:00 Completed [facility] Influenza Virus Vaccine 2018-01-24 00:00:00 Completed [facility] Pneumococcal Polysaccharide, PPSV23 (PNEUMOVAX) 2018-01-24 00:00:00 Completed [facility] Influenza Virus Vaccine Quad .5 mL IM 6+ MO 2018-01-24 00:00:00 Completed [facility] Influenza Virus Vaccine 2018-01-24 00:00:00 Completed [facility] Pneumococcal Polysaccharide, PPSV23 (PNEUMOVAX) 2018-01-24 00:00:00 Completed [facility] Influenza Virus Vaccine Quad .5 mL IM 6+ MO 2018-01-24 00:00:00 Completed [facility] Influenza Virus Vaccine 2018-01-24 00:00:00 Completed [facility] Pneumococcal Polysaccharide, PPSV23 (PNEUMOVAX) 2018-01-24 00:00:00 Completed [facility] Influenza Virus Vaccine Quad .5 mL IM 6+ MO 2018-01-24 00:00:00 Completed [facility] Influenza Virus Vaccine 2018-01-24 00:00:00 Completed [facility] Pneumococcal Polysaccharide, PPSV23 (PNEUMOVAX) 2018-01-24 00:00:00 Completed [facility] Influenza Virus Vaccine Quad .5 mL IM 6+ MO 2018-01-24 00:00:00 Completed [facility] Influenza Virus Vaccine 2018-01-24 00:00:00 Completed [facility] Pneumococcal Polysaccharide, PPSV23 (PNEUMOVAX) 2018-01-24 00:00:00 Completed [facility] Influenza Virus Vaccine Quad .5 mL IM 6+ MO 2018-01-24 00:00:00 Completed [facility] Influenza Virus Vaccine 2018-01-24 00:00:00 Completed [facility] Pneumococcal Polysaccharide, PPSV23 (PNEUMOVAX) 2018-01-24 00:00:00 Completed [facility] Influenza Virus Vaccine Quad .5 mL IM 6+ MO 2018-01-24 00:00:00 Completed [facility] Influenza Virus Vaccine 2018-01-24 00:00:00 Completed [facility] Pneumococcal Polysaccharide, PPSV23 (PNEUMOVAX) 2018-01-24 00:00:00 Completed [facility] Influenza Virus Vaccine Quad .5 mL IM 6+ MO 2018-01-24 00:00:00 Completed [facility] Influenza Virus Vaccine 2018-01-24 00:00:00 Completed [facility] Pneumococcal Polysaccharide, PPSV23 (PNEUMOVAX) 2018-01-24 00:00:00 Completed [facility] Influenza Virus Vaccine Quad .5 mL IM 6+ MO 2018-01-24 00:00:00 Completed [facility] Influenza Virus Vaccine 2018-01-24 00:00:00 Completed [facility] Pneumococcal Polysaccharide, PPSV23 (PNEUMOVAX) 2018-01-24 00:00:00 Completed [facility] Influenza Virus Vaccine Quad .5 mL IM 6+ MO 2018-01-24 00:00:00 Completed [facility] Influenza Virus Vaccine 2018-01-24 00:00:00 Completed [facility] Pneumococcal Polysaccharide, PPSV23 (PNEUMOVAX) 2018-01-24 00:00:00 Completed [facility] Influenza Virus Vaccine Quad .5 mL IM 6+ MO 2018-01-24 00:00:00 Completed [facility] Influenza Virus Vaccine 2018-01-24 00:00:00 Completed [facility] Pneumococcal Polysaccharide, PPSV23 (PNEUMOVAX) 2018-01-24 00:00:00 Completed [facility] Influenza Virus Vaccine Quad .5 mL IM 6+ MO 2018-01-24 00:00:00 Completed [facility] Influenza Virus Vaccine 2018-01-24 00:00:00 Completed [facility] Pneumococcal Polysaccharide, PPSV23 (PNEUMOVAX) 2018-01-24 00:00:00 Completed [facility] Influenza Virus Vaccine Quad .5 mL IM 6+ MO 2018-01-24 00:00:00 Completed [facility] Influenza Virus Vaccine 2018-01-24 00:00:00 Completed [facility] Pneumococcal Polysaccharide, PPSV23 (PNEUMOVAX) 2018-01-24 00:00:00 Completed [facility] Influenza Virus Vaccine Quad .5 mL IM 6+ MO 2018-01-24 00:00:00 Completed [facility] Influenza Virus Vaccine 2018-01-24 00:00:00 Completed [facility] Pneumococcal Polysaccharide, PPSV23 (PNEUMOVAX) 2018-01-24 00:00:00 Completed [facility] Influenza Virus Vaccine Quad .5 mL IM 6+ MO 2018-01-24 00:00:00 Completed [facility] Influenza Virus Vaccine 2018-01-24 00:00:00 Completed [facility] Pneumococcal Polysaccharide, PPSV23 (PNEUMOVAX) 2018-01-24 00:00:00 Completed [facility] Influenza Virus Vaccine Quad .5 mL IM 6+ MO 2018-01-24 00:00:00 Completed [facility] Influenza Virus Vaccine 2018-01-24 00:00:00 Completed [facility] Pneumococcal Polysaccharide, PPSV23 (PNEUMOVAX) 2018-01-24 00:00:00 Completed [facility] Influenza Virus Vaccine Quad .5 mL IM 6+ MO 2018-01-24 00:00:00 Completed [facility] Influenza Virus Vaccine 2018-01-24 00:00:00 Completed [facility] Pneumococcal Polysaccharide, PPSV23 (PNEUMOVAX) 2018-01-24 00:00:00 Completed [facility] Influenza Virus Vaccine Quad .5 mL IM 6+ MO 2018-01-24 00:00:00 Completed [facility] Influenza Virus Vaccine 2018-01-24 00:00:00 Completed [facility] Pneumococcal Polysaccharide, PPSV23 (PNEUMOVAX) 2018-01-24 00:00:00 Completed [facility] Influenza Virus Vaccine Quad .5 mL IM 6+ MO 2018-01-24 00:00:00 Completed [facility] Influenza Virus Vaccine 2018-01-24 00:00:00 Completed [facility] Pneumococcal Polysaccharide, PPSV23 (PNEUMOVAX) 2018-01-24 00:00:00 Completed [facility] Influenza Virus Vaccine Quad .5 mL IM 6+ MO 2018-01-24 00:00:00 Completed [facility] Influenza Virus Vaccine 2018-01-24 00:00:00 Completed [facility] Pneumococcal Polysaccharide, PPSV23 (PNEUMOVAX) 2018-01-24 00:00:00 Completed [facility] Influenza Virus Vaccine Quad .5 mL IM 6+ MO 2018-01-24 00:00:00 Completed [facility] Influenza Virus Vaccine 2018-01-24 00:00:00 Completed [facility] Pneumococcal Polysaccharide, PPSV23 (PNEUMOVAX) 2018-01-24 00:00:00 Completed [facility] Influenza Virus Vaccine Quad .5 mL IM 6+ MO 2018-01-24 00:00:00 Completed [facility] Influenza Virus Vaccine 2018-01-24 00:00:00 Completed [facility] Pneumococcal Polysaccharide, PPSV23 (PNEUMOVAX) 2018-01-24 00:00:00 Completed [facility] Influenza Virus Vaccine Quad .5 mL IM 6+ MO 2018-01-24 00:00:00 Completed [facility] Influenza Virus Vaccine 2018-01-24 00:00:00 Completed [facility] Pneumococcal Polysaccharide, PPSV23 (PNEUMOVAX) 2018-01-24 00:00:00 Completed [facility] Influenza Virus Vaccine Quad .5 mL IM 6+ MO 2018-01-24 00:00:00 Completed [facility] Influenza Virus Vaccine 2018-01-24 00:00:00 Completed [facility] Pneumococcal Polysaccharide, PPSV23 (PNEUMOVAX) 2018-01-24 00:00:00 Completed [facility] Influenza Virus Vaccine Quad .5 mL IM 6+ MO 2018-01-24 00:00:00 Completed [facility] Pneumococcal Polysaccharide, PPSV23 (PNEUMOVAX) 2018-01-24 00:00:00 Completed Influenza Virus Vaccine Quad .5 mL IM 6+ MO (FLUZONE/FLULAVAL/F LUARIX) 2018-01-24 00:00:00 Completed Influenza Virus Vaccine Quad IM 3+ YRS 2017-02-12 00:00:00 Completed [facility] Influenza Virus Vaccine Quad IM 3+ YRS 2017-02-12 00:00:00 Completed [facility] Influenza Virus Vaccine Quad IM 3+ YRS 2017-02-12 00:00:00 Completed [facility] Influenza Virus Vaccine Quad IM 3+ YRS 2017-02-12 00:00:00 Completed [facility] Influenza Virus Vaccine Quad IM 3+ YRS 2017-02-12 00:00:00 Completed [facility] Influenza Virus Vaccine Quad IM 3+ YRS 2017-02-12 00:00:00 Completed [facility] Influenza Virus Vaccine Quad IM 3+ YRS 2017-02-12 00:00:00 Completed [facility] Influenza Virus Vaccine Quad IM 3+ YRS 2017-02-12 00:00:00 Completed [facility] Influenza Virus Vaccine Quad IM 3+ YRS 2017-02-12 00:00:00 Completed [facility] Influenza Virus Vaccine Quad IM 3+ YRS 2017-02-12 00:00:00 Completed [facility] Influenza Virus Vaccine Quad IM 3+ YRS 2017-02-12 00:00:00 Completed [facility] Influenza Virus Vaccine Quad IM 3+ YRS 2017-02-12 00:00:00 Completed [facility] Influenza Virus Vaccine Quad IM 3+ YRS 2017-02-12 00:00:00 Completed [facility] Influenza Virus Vaccine Quad IM 3+ YRS 2017-02-12 00:00:00 Completed [facility] Influenza Virus Vaccine Quad IM 3+ YRS 2017-02-12 00:00:00 Completed [facility] Influenza Virus Vaccine Quad IM 3+ YRS 2017-02-12 00:00:00 Completed [facility] Influenza Virus Vaccine Quad IM 3+ YRS 2017-02-12 00:00:00 Completed [facility] Influenza Virus Vaccine Quad IM 3+ YRS 2017-02-12 00:00:00 Completed [facility] Influenza Virus Vaccine Quad IM 3+ YRS 2017-02-12 00:00:00 Completed [facility] Influenza Virus Vaccine Quad IM 3+ YRS 2017-02-12 00:00:00 Completed [facility] Influenza Virus Vaccine Quad IM 3+ YRS 2017-02-12 00:00:00 Completed [facility] Influenza Virus Vaccine Quad IM 3+ YRS 2017-02-12 00:00:00 Completed [facility] Influenza Virus Vaccine Quad IM 3+ YRS 2017-02-12 00:00:00 Completed [facility] Influenza Virus Vaccine Quad IM 3+ YRS 2017-02-12 00:00:00 Completed [facility] Influenza Virus Vaccine Quad IM 3+ YRS 2017-02-12 00:00:00 Completed [facility] Influenza Virus Vaccine Quad IM 3+ YRS 2017-02-12 00:00:00 Completed [facility] Influenza Virus Vaccine Quad IM 3+ YRS 2017-02-12 00:00:00 Completed [facility] Influenza Virus Vaccine Quad IM 3+ YRS 2017-02-12 00:00:00 Completed [facility] Influenza Virus Vaccine Quad IM 3+ YRS 2017-02-12 00:00:00 Completed [facility] Influenza Virus Vaccine Quad IM 3+ YRS 2016-02-03 00:00:00 Completed [facility] Pneumococcal Polysaccharide, PPSV23 (PNEUMOVAX) 2016-02-03 00:00:00 Completed [facility] Influenza Virus Vaccine Quad IM 3+ YRS 2016-02-03 00:00:00 Completed [facility] Pneumococcal Polysaccharide, PPSV23 (PNEUMOVAX) 2016-02-03 00:00:00 Completed [facility] Influenza Virus Vaccine Quad IM 3+ YRS 2016-02-03 00:00:00 Completed [facility] Pneumococcal Polysaccharide, PPSV23 (PNEUMOVAX) 2016-02-03 00:00:00 Completed [facility] Influenza Virus Vaccine Quad IM 3+ YRS 2016-02-03 00:00:00 Completed [facility] Pneumococcal Polysaccharide, PPSV23 (PNEUMOVAX) 2016-02-03 00:00:00 Completed [facility] Influenza Virus Vaccine Quad IM 3+ YRS 2016-02-03 00:00:00 Completed [facility] Pneumococcal Polysaccharide, PPSV23 (PNEUMOVAX) 2016-02-03 00:00:00 Completed [facility] Influenza Virus Vaccine Quad IM 3+ YRS 2016-02-03 00:00:00 Completed [facility] Pneumococcal Polysaccharide, PPSV23 (PNEUMOVAX) 2016-02-03 00:00:00 Completed [facility] Influenza Virus Vaccine Quad IM 3+ YRS 2016-02-03 00:00:00 Completed [facility] Pneumococcal Polysaccharide, PPSV23 (PNEUMOVAX) 2016-02-03 00:00:00 Completed [facility] Influenza Virus Vaccine Quad IM 3+ YRS 2016-02-03 00:00:00 Completed [facility] Pneumococcal Polysaccharide, PPSV23 (PNEUMOVAX) 2016-02-03 00:00:00 Completed [facility] Influenza Virus Vaccine Quad IM 3+ YRS 2016-02-03 00:00:00 Completed [facility] Pneumococcal Polysaccharide, PPSV23 (PNEUMOVAX) 2016-02-03 00:00:00 Completed [facility] Influenza Virus Vaccine Quad IM 3+ YRS 2016-02-03 00:00:00 Completed [facility] Pneumococcal Polysaccharide, PPSV23 (PNEUMOVAX) 2016-02-03 00:00:00 Completed [facility] Influenza Virus Vaccine Quad IM 3+ YRS 2016-02-03 00:00:00 Completed [facility] Pneumococcal Polysaccharide, PPSV23 (PNEUMOVAX) 2016-02-03 00:00:00 Completed [facility] Influenza Virus Vaccine Quad IM 3+ YRS 2016-02-03 00:00:00 Completed [facility] Pneumococcal Polysaccharide, PPSV23 (PNEUMOVAX) 2016-02-03 00:00:00 Completed [facility] Influenza Virus Vaccine Quad IM 3+ YRS 2016-02-03 00:00:00 Completed [facility] Pneumococcal Polysaccharide, PPSV23 (PNEUMOVAX) 2016-02-03 00:00:00 Completed [facility] Influenza Virus Vaccine Quad IM 3+ YRS 2016-02-03 00:00:00 Completed [facility] Pneumococcal Polysaccharide, PPSV23 (PNEUMOVAX) 2016-02-03 00:00:00 Completed [facility] Influenza Virus Vaccine Quad IM 3+ YRS 2016-02-03 00:00:00 Completed [facility] Pneumococcal Polysaccharide, PPSV23 (PNEUMOVAX) 2016-02-03 00:00:00 Completed [facility] Influenza Virus Vaccine Quad IM 3+ YRS 2016-02-03 00:00:00 Completed [facility] Pneumococcal Polysaccharide, PPSV23 (PNEUMOVAX) 2016-02-03 00:00:00 Completed [facility] Influenza Virus Vaccine Quad IM 3+ YRS 2016-02-03 00:00:00 Completed [facility] Pneumococcal Polysaccharide, PPSV23 (PNEUMOVAX) 2016-02-03 00:00:00 Completed [facility] Influenza Virus Vaccine Quad IM 3+ YRS 2016-02-03 00:00:00 Completed [facility] Pneumococcal Polysaccharide, PPSV23 (PNEUMOVAX) 2016-02-03 00:00:00 Completed [facility] Influenza Virus Vaccine Quad IM 3+ YRS 2016-02-03 00:00:00 Completed [facility] Pneumococcal Polysaccharide, PPSV23 (PNEUMOVAX) 2016-02-03 00:00:00 Completed [facility] Influenza Virus Vaccine Quad IM 3+ YRS 2016-02-03 00:00:00 Completed [facility] Pneumococcal Polysaccharide, PPSV23 (PNEUMOVAX) 2016-02-03 00:00:00 Completed [facility] Influenza Virus Vaccine Quad IM 3+ YRS 2016-02-03 00:00:00 Completed [facility] Pneumococcal Polysaccharide, PPSV23 (PNEUMOVAX) 2016-02-03 00:00:00 Completed [facility] Influenza Virus Vaccine Quad IM 3+ YRS 2016-02-03 00:00:00 Completed [facility] Pneumococcal Polysaccharide, PPSV23 (PNEUMOVAX) 2016-02-03 00:00:00 Completed [facility] Influenza Virus Vaccine Quad IM 3+ YRS 2016-02-03 00:00:00 Completed [facility] Pneumococcal Polysaccharide, PPSV23 (PNEUMOVAX) 2016-02-03 00:00:00 Completed [facility] Influenza Virus Vaccine Quad IM 3+ YRS 2016-02-03 00:00:00 Completed [facility] Pneumococcal Polysaccharide, PPSV23 (PNEUMOVAX) 2016-02-03 00:00:00 Completed [facility] Influenza Virus Vaccine Quad IM 3+ YRS 2016-02-03 00:00:00 Completed [facility] Pneumococcal Polysaccharide, PPSV23 (PNEUMOVAX) 2016-02-03 00:00:00 Completed [facility] Influenza Virus Vaccine Quad IM 3+ YRS 2016-02-03 00:00:00 Completed [facility] Pneumococcal Polysaccharide, PPSV23 (PNEUMOVAX) 2016-02-03 00:00:00 Completed [facility] Influenza Virus Vaccine Quad IM 3+ YRS 2016-02-03 00:00:00 Completed [facility] Pneumococcal Polysaccharide, PPSV23 (PNEUMOVAX) 2016-02-03 00:00:00 Completed [facility] Influenza Virus Vaccine Quad IM 3+ YRS 2016-02-03 00:00:00 Completed [facility] Pneumococcal Polysaccharide, PPSV23 (PNEUMOVAX) 2016-02-03 00:00:00 Completed [facility] Prevnar 20 (PCV20) Prevnar 20 (PCV20) Unknown Completed [facility] Fluarix (IIV4) - SDS - 0.5mL Fluarix (IIV4) - SDS - 0.5mL Unknown Completed [facility] Flucelvax (ccIIV4) - MDV - 0.5mL Flucelvax (ccIIV4) - MDV - 0.5mL Unknown Completed [facility] Boostrix (Tdap) Boostrix (Tdap) Unknown Completed [facility] Prevnar 20 (PCV20) Prevnar 20 (PCV20) Unknown Completed [facility] Fluarix (IIV4) - SDS - 0.5mL Fluarix (IIV4) - SDS - 0.5mL Unknown Completed [facility] Flucelvax (ccIIV4) - MDV - 0.5mL Flucelvax (ccIIV4) - MDV - 0.5mL Unknown Completed [facility] Boostrix (Tdap) Boostrix (Tdap) Unknown Completed [facility] Prevnar 20 (PCV20) Prevnar 20 (PCV20) Unknown Completed [facility] Fluarix (IIV4) - SDS - 0.5mL Fluarix (IIV4) - SDS - 0.5mL Unknown Completed [facility] Flucelvax (ccIIV4) - MDV - 0.5mL Flucelvax (ccIIV4) - MDV - 0.5mL Unknown Completed [facility] Boostrix (Tdap) Boostrix (Tdap) Unknown Completed [facility] Prevnar 20 (PCV20) Prevnar 20 (PCV20) Unknown Completed [facility] Fluarix (IIV4) - SDS - 0.5mL Fluarix (IIV4) - SDS - 0.5mL Unknown Completed [facility] Flucelvax (ccIIV4) - MDV - 0.5mL Flucelvax (ccIIV4) - MDV - 0.5mL Unknown Completed [facility] Boostrix (Tdap) Boostrix (Tdap) Unknown Completed [facility] Prevnar 20 (PCV20) Prevnar 20 (PCV20) Unknown Completed [facility] Fluarix (IIV4) - SDS - 0.5mL Fluarix (IIV4) - SDS - 0.5mL Unknown Completed [facility] Flucelvax (ccIIV4) - MDV - 0.5mL Flucelvax (ccIIV4) - MDV - 0.5mL Unknown Completed [facility] Boostrix (Tdap) Boostrix (Tdap) Unknown Completed [facility] Prevnar 20 (PCV20) Prevnar 20 (PCV20) Unknown Completed [facility] Fluarix (IIV4) - SDS - 0.5mL Fluarix (IIV4) - SDS - 0.5mL Unknown Completed [facility] Flucelvax (ccIIV4) - MDV - 0.5mL Flucelvax (ccIIV4) - MDV - 0.5mL Unknown Completed [facility] Boostrix (Tdap) Boostrix (Tdap) Unknown Completed [facility] Prevnar 20 (PCV20) Prevnar 20 (PCV20) Unknown Completed [facility] Fluarix (IIV4) - SDS - 0.5mL Fluarix (IIV4) - SDS - 0.5mL Unknown Completed [facility] Flucelvax (ccIIV4) - MDV - 0.5mL Flucelvax (ccIIV4) - MDV - 0.5mL Unknown Completed [facility] Boostrix (Tdap) Boostrix (Tdap) Unknown Completed [facility] Prevnar 20 (PCV20) Prevnar 20 (PCV20) Unknown Completed [facility] Fluarix (IIV4) - SDS - 0.5mL Fluarix (IIV4) - SDS - 0.5mL Unknown Completed [facility] Flucelvax (ccIIV4) - MDV - 0.5mL Flucelvax (ccIIV4) - MDV - 0.5mL Unknown Completed [facility] Boostrix (Tdap) Boostrix (Tdap) Unknown Completed [facility] Prevnar 20 (PCV20) Prevnar 20 (PCV20) Unknown Completed [facility] Fluarix (IIV4) - SDS - 0.5mL Fluarix (IIV4) - SDS - 0.5mL Unknown Completed [facility] Flucelvax (ccIIV4) - MDV - 0.5mL Flucelvax (ccIIV4) - MDV - 0.5mL Unknown Completed [facility] Boostrix (Tdap) Boostrix (Tdap) Unknown Completed [facility] Prevnar 20 (PCV20) Prevnar 20 (PCV20) Unknown Completed [facility] Fluarix (IIV4) - SDS - 0.5mL Fluarix (IIV4) - SDS - 0.5mL Unknown Completed [facility] Flucelvax (ccIIV4) - MDV - 0.5mL Flucelvax (ccIIV4) - MDV - 0.5mL Unknown Completed [facility] Boostrix (Tdap) Boostrix (Tdap) Unknown Completed [facility] Prevnar 20 (PCV20) Prevnar 20 (PCV20) Unknown Completed [facility] Fluarix (IIV4) - SDS - 0.5mL Fluarix (IIV4) - SDS - 0.5mL Unknown Completed [facility] Flucelvax (ccIIV4) - MDV - 0.5mL Flucelvax (ccIIV4) - MDV - 0.5mL Unknown Completed [facility] Boostrix (Tdap) Boostrix (Tdap) Unknown Completed [facility] Prevnar 20 (PCV20) Prevnar 20 (PCV20) Unknown Completed [facility] Fluarix Fluarix Unknown Completed [facility] Flucelvax - multidose vial Flucelvax - multidose vial Unknown Completed [facility] Boostrix (Tdap) Boostrix (Tdap) Unknown Completed [facility] Prevnar 20 (PCV20) Prevnar 20 (PCV20) Unknown Completed [facility] Fluarix Fluarix Unknown Completed [facility] Flucelvax - multidose vial Flucelvax - multidose vial Unknown Completed [facility] Boostrix (Tdap) Boostrix (Tdap) Unknown Completed [facility] Prevnar 20 (PCV20) Prevnar 20 (PCV20) Unknown Completed [facility] Fluarix Fluarix Unknown Completed [facility] Flucelvax - multidose vial Flucelvax - multidose vial Unknown Completed [facility] Boostrix (Tdap) Boostrix (Tdap) Unknown Completed [facility] Prevnar 20 (PCV20) Prevnar 20 (PCV20) Unknown Completed [facility] Fluarix Fluarix Unknown Completed [facility] Flucelvax - multidose vial Flucelvax - multidose vial Unknown Completed [facility] Boostrix (Tdap) Boostrix (Tdap) Unknown Completed [facility] Prevnar 20 (PCV20) Prevnar 20 (PCV20) Unknown Completed [facility] Fluarix Fluarix Unknown Completed [facility] Flucelvax - multidose vial Flucelvax - multidose vial Unknown Completed [facility] Boostrix (Tdap) Boostrix (Tdap) Unknown Completed [facility] Prevnar 20 (PCV20) Prevnar 20 (PCV20) Unknown Completed [facility] Fluarix Fluarix Unknown Completed [facility] Flucelvax - multidose vial Flucelvax - multidose vial Unknown Completed [facility] Boostrix (Tdap) Boostrix (Tdap) Unknown Completed [facility] Prevnar 20 (PCV20) Prevnar 20 (PCV20) Unknown Completed [facility] Fluarix Fluarix Unknown Completed [facility] Flucelvax - multidose vial Flucelvax - multidose vial Unknown Completed [facility] Boostrix (Tdap) Boostrix (Tdap) Unknown Completed [facility] Prevnar 20 (PCV20) Prevnar 20 (PCV20) Unknown Completed [facility] Fluarix Fluarix Unknown Completed [facility] Flucelvax - multidose vial Flucelvax - multidose vial Unknown Completed [facility] Boostrix (Tdap) Boostrix (Tdap) Unknown Completed [facility] Prevnar 20 (PCV20) Prevnar 20 (PCV20) Unknown Completed [facility] Fluarix Fluarix Unknown Completed [facility] Flucelvax - multidose vial Flucelvax - multidose vial Unknown Completed [facility] Boostrix (Tdap) Boostrix (Tdap) Unknown Completed [facility] Vital Signs Vital Name Observation Time Observation Value Comments S luis manuel Systolic blood pressure 2024-07-15 15:27:00 103 mm[Hg] [facility] Diastolic blood pressure 2024-07-15 15:27:00 60 mm[Hg] [facility] Heart rate 2024-07-15 15:27:00 75 /min [facility] Body temperature 2024-07-15 15:27:00 36.28 Marina [facility] Respiratory rate 2024-07-15 15:27:00 18 /min [facility] Body height 2024-07-15 15:27:[address] [facility] Body weight 2024-07-15 15:27:[address] [facility] BMI 2024-07-15 15:27:00 24.07 kg/m2 [facility] Oxygen saturation in Arterial blood by Pulse oximetry 2024-07-15 15:27:00 99 /min [facility] height 2024-06-06 11:00:00 69.5 [in_i] Comm on [facility] weight 2024-06-06 11:00:00 176.8 [lb_av] Co mmon [facility] temperature 2024-06-06 11:00:00 97.2 [degF] Com mon [facility] bmi 2024-06-06 11:00:00 25.73 kg/m2 Comm on [facility] oximetry 2024-06-06 11:00:00 99 % Commo n [facility] respiratory rate 2024-06-06 11:00:00 16 /min [facility] blood pressure systolic 2024-06-06 11:00:00 118 mm[Hg] [facility] blood pressure diastolic 2024-06-06 11:00:00 58 mm[Hg] [facility] Systolic blood pressure 2024-06-03 00:12:00 117 mm[Hg] [facility] Diastolic blood pressure 2024-06-03 00:12:00 54 mm[Hg] [facility] Heart rate 2024-06-03 00:12:00 87 /min [facility] Body temperature 2024-06-02 20:47:00 36.22 Marina [facility] Respiratory rate 2024-06-02 20:47:00 18 /min [facility] Body weight 2024-06-02 20:47:00 81.7 kg [facility] BMI 2024-06-02 20:47:00 28.21 kg/m2 [facility] Oxygen saturation in Arterial blood by Pulse oximetry 2024-06-02 13:58:00 98 /min [facility] Body height 2024-05-30 23:38:00 170.2 cm [facility] Systolic blood pressure 2024-05-30 07:48:00 95 mm[Hg] [facility] Diastolic blood pressure 2024-05-30 07:48:00 57 mm[Hg] [facility] Heart rate 2024-05-30 07:48:00 94 /min [facility] Respiratory rate 2024-05-30 07:48:00 28 /min [facility] Oxygen saturation in Arterial blood by Pulse oximetry 2024-05-30 07:48:00 99 /min [facility] Body temperature 2024-05-30 07:41:00 36.78 Marina [facility] Body height 2024-05-30 00:55:00 [facility]3 [facility] 2024-05-30 00:55:[address] [facility] BMI 2024-05-30 00:55:00 24.96 kg/m2 [facility] height 2024-05-23 07:50:00 69.5 [in_i] [facility] on [facility] weight 2024-05-23 07:50:00 156 [lb_av] Comm on [facility] bmi 2024-05-23 07:50:00 22.7 kg/m2 Commo n [facility] Systolic blood pressure 2024-05-19 19:50:00 126 mm[Hg] [facility] Diastolic blood pressure 2024-05-19 19:50:00 57 mm[Hg] [facility] Heart rate 2024-05-19 19:50:00 84 /min [facility] Body temperature 2024-05-19 19:50:00 35.78 Marina [facility] Respiratory rate 2024-05-19 19:50:00 18 /min [facility] Oxygen saturation in Arterial blood by Pulse oximetry 2024-05-19 19:50:00 94 /min [facility] Body weight 2024-05-19 19:05:00 74.9 kg [facility] BMI 2024-05-19 19:05:00 24.38 kg/m2 [facility] Body height 2024-05-15 15:00:[address] [facility] Systolic blood pressure 2024-05-17 20:30:00 100 mm[Hg] [facility] Diastolic blood pressure 2024-05-17 20:30:00 58 mm[Hg] [facility] Heart rate 2024-05-17 20:30:00 76 /min [facility] Respiratory rate 2024-05-17 20:30:00 17 /min [facility] Oxygen saturation in Arterial blood by Pulse oximetry 2024-05-17 20:30:00 98 /min [facility] [facility] Body temperature 2024-05-17 20:00:00 36.39 Marina [facility] Body height 2024-05-15 15:00:[address] [facility] Body weight 2024-05-15 15:00:00 72.576 kg [facility] BMI 2024-05-15 15:00:00 24.38 kg/m2 [facility] Systolic blood pressure 2024-05-12 19:00:00 124 mm[Hg] [facility] Diastolic blood pressure 2024-05-12 19:00:00 49 mm[Hg] [facility] Heart rate 2024-05-12 19:00:00 73 /min [facility] Respiratory rate 2024-05-12 19:00:00 19 /min [facility] Oxygen saturation in Arterial blood by Pulse oximetry 2024-05-12 19:00:00 95 /min [facility] Body temperature 2024-05-12 17:20:00 36.22 Marina [facility] Body weight 2024-05-12 17:20:[address] [facility] BMI 2024-05-12 17:20:00 22.89 kg/m2 [facility] Body height 2024-05-06 23:41:[address] [facility] Systolic blood pressure 2024-05-09 12:48:00 110 mm[Hg] [facility] Diastolic blood pressure 2024-05-09 12:48:00 63 mm[Hg] [facility] Heart rate 2024-05-09 12:48:00 67 /min [facility] Body temperature 2024-05-09 12:48:00 36.94 Marina [facility] Respiratory rate 2024-05-09 12:48:00 20 /min [facility] Oxygen saturation in Arterial blood by Pulse oximetry 2024-05-09 12:48:00 96 /min [facility] Body weight 2024-05-09 09:50:[address] [facility] BMI 2024-05-09 09:50:00 22.89 kg/m2 [facility] Body height 2024-05-06 23:41:[address] [facility] Systolic blood pressure 2024-04-10 19:03:00 133 mm[Hg] [facility] Diastolic blood pressure 2024-04-10 19:03:00 64 mm[Hg] [facility] Heart rate 2024-04-10 19:03:00 79 /min [facility] Body temperature 2024-04-10 19:03:00 36.61 Marina [facility] Respiratory rate 2024-04-10 19:03:00 20 /min [facility] Body height 2024-04-10 19:03:[address] [facility] Body weight 2024-04-10 19:03:[address] [facility] BMI 2024-04-10 19:03:00 24.37 kg/m2 [facility] Oxygen saturation in Arterial blood by Pulse oximetry 2024-04-10 19:03:00 100 /min [facility] Systolic blood pressure 2024-02-18 18:47:00 124 mm[Hg] [facility] Diastolic blood pressure 2024-02-18 18:47:00 61 mm[Hg] [facility] Heart rate 2024-02-18 18:47:00 80 /min [facility] Body temperature 2024-02-18 18:47:00 36.5 Marina [facility] Respiratory rate 2024-02-18 18:47:00 16 /min [facility] Body height 2024-02-18 18:47:[address] [facility] Body weight 2024-02-18 18:47:[address] [facility] BMI 2024-02-18 18:47:00 24.37 kg/m2 [facility] Oxygen saturation in Arterial blood by Pulse oximetry 2024-02-18 18:47:00 100 /min [facility] height 2024-02-15 14:00:00 69.5 [in_i] Comm on [facility] weight 2024-02-15 14:00:00 156 [lb_av] Comm on [facility] temperature 2024-02-15 14:00:00 97.2 [degF] Com mon [facility] bmi 2024-02-15 14:00:00 22.7 kg/m2 Commo n [facility] oximetry 2024-02-15 14:00:00 97 % Commo n [facility] respiratory rate 2024-02-15 14:00:00 16 /min Common [facility] blood pressure systolic 2024-02-15 14:00:00 130 mm[Hg] [facility] blood pressure diastolic 2024-02-15 14:00:00 68 mm[Hg] [facility] Systolic blood pressure 2024-01-31 01:45:00 134 mm[Hg] [facility] Diastolic blood pressure 2024-01-31 01:45:00 73 mm[Hg] [facility] Respiratory rate 2024-01-31 01:45:00 18 /min [facility] Heart rate 2024-01-31 01:30:00 73 /min [facility] Oxygen saturation in Arterial blood by Pulse oximetry 2024-01-31 01:30:00 99 /min [facility] Body temperature 2024-01-30 20:51:00 36.39 [facility] Body height 2024-01-30 20:51:[address] [facility] Body weight 2024-01-30 20:51:[address] [facility] BMI 2024-01-30 20:51:00 24.07 kg/m2 [facility] height 2023-11-14 14:00:00 69.5 [in_i] Comm on [facility] weight 2023-11-14 14:00:00 165 [lb_av] Comm on [facility] temperature 2023-11-14 14:00:00 97.8 [degF] Com mon [facility] bmi 2023-11-14 14:00:00 24.01 kg/m2 Comm on [facility] oximetry 2023-11-14 14:00:00 97 % Commo n [facility] respiratory rate 2023-11-14 14:00:00 16 /min Common [facility] blood pressure systolic 2023-11-14 14:00:00 126 mm[Hg] [facility] blood pressure diastolic 2023-11-14 14:00:00 68 mm[Hg] [facility] Systolic blood pressure 2023-09-08 17:00:00 144 mm[Hg] [facility] Diastolic blood pressure 2023-09-08 17:00:00 69 mm[Hg] [facility] Respiratory rate 2023-09-08 17:00:00 21 /min [facility] Heart rate 2023-09-08 16:00:00 88 /min [facility] Body temperature 2023-09-08 16:00:00 36.44 Marina [facility] Oxygen saturation in Arterial blood by Pulse oximetry 2023-09-08 16:00:00 99 /min [facility] Body height 2023-09-08 12:44:[address] [facility] Body weight 2023-09-08 12:44:[address] [facility] BMI 2023-09-08 12:44:00 24.41 kg/m2 [facility] height 2023-08-15 13:20:00 69.5 [in_i] Comm on [facility] weight 2023-08-15 13:20:00 164 [lb_av] Comm on [facility] temperature 2023-08-15 13:20:00 97.6 [degF] Com mon [facility] bmi 2023-08-15 13:20:00 23.87 kg/m2 Comm on [facility] oximetry 2023-08-15 13:20:00 99 % Commo n [facility] respiratory rate 2023-08-15 13:20:00 16 /min [facility] blood pressure systolic 2023-08-15 13:20:00 128 mm[Hg] [facility] blood pressure diastolic 2023-08-15 13:20:00 70 mm[Hg] [facility] height 2023-07-17 15:00:00 69.5 [in_i] Comm on [facility] weight 2023-07-17 15:00:00 157.4 [lb_av] Co mmon [facility] temperature 2023-07-17 15:00:00 97.3 [degF] Com mon [facility] bmi 2023-07-17 15:00:00 22.91 kg/m2 Comm on [facility] oximetry 2023-07-17 15:00:00 99 % Commo n [facility] respiratory rate 2023-07-17 15:00:00 16 /min Common [facility] blood pressure systolic 2023-07-17 15:00:00 95 mm[Hg] [facility] blood pressure diastolic 2023-07-17 15:00:00 47 mm[Hg] [facility] height 2023-07-17 15:00:00 69.5 [in_i] Comm on [facility] weight 2023-07-17 15:00:00 157.4 [lb_av] Co mmon [facility] temperature 2023-07-17 15:00:00 97.3 [degF] Com mon [facility] bmi 2023-07-17 15:00:00 22.91 kg/m2 Comm on [facility] oximetry 2023-07-17 15:00:00 99 % Commo n [facility] respiratory rate 2023-07-17 15:00:00 16 /min Common [facility] blood pressure systolic 2023-07-17 15:00:00 95 mm[Hg] [facility] blood pressure diastolic 2023-07-17 15:00:00 47 mm[Hg] [facility] Systolic blood pressure 2023-05-04 15:59:00 122 mm[Hg] [facility] Diastolic blood pressure 2023-05-04 15:59:00 53 mm[Hg] [facility] Heart rate 2023-05-04 15:59:00 62 [facility] 2023-05-04 15:59:00 37.06 Marina [facility] Respiratory rate 2023-05-04 15:59:00 18 /min [facility] Body height 2023-05-04 15:59:[address] [facility] Body weight 2023-05-04 15:59:[address] [facility] BMI 2023-05-04 15:59:00 23.67 kg/m2 [facility] Oxygen saturation in Arterial blood by Pulse oximetry 2023-05-04 15:59:00 100 /min [facility] Systolic blood pressure 2023-04-02 17:00:00 145 mm[Hg] [facility] Diastolic blood pressure 2023-04-02 17:00:00 72 mm[Hg] [facility] Heart rate 2023-04-02 17:00:00 71 /min [facility] Respiratory rate 2023-04-02 17:00:00 14 /min [facility] Oxygen saturation in Arterial blood by Pulse oximetry 2023-04-02 17:00:00 97 /min [facility] Body height 2023-04-02 15:17:[address] [facility] Body weight 2023-04-02 13:00:[address] [facility] BMI 2023-04-02 13:00:00 24.87 kg/m2 [facility] height 2023-02-13 16:00:00 69.5 [in_i] Comm on [facility] weight 2023-02-13 16:00:00 165.2 [lb_av] Co mmon [facility] temperature 2023-02-13 16:00:00 97.2 [degF] Com mon [facility] bmi 2023-02-13 16:00:00 24.04 kg/m2 Comm on [facility] oximetry 2023-02-13 16:00:00 94 % Commo n [facility] respiratory rate 2023-02-13 16:00:00 16 /min [facility] blood pressure systolic 2023-02-13 16:00:00 136 mm[Hg] [facility] blood pressure diastolic 2023-02-13 16:00:00 59 mm[Hg] [facility] height 2023-01-23 15:20:00 69.5 [in_i] Comm on [facility] weight 2023-01-23 15:20:00 166.8 [lb_av] Co mmon [facility] temperature 2023-01-23 15:20:00 97.2 [degF] Com mon [facility] bmi 2023-01-23 15:20:00 24.28 kg/m2 Comm on [facility] oximetry 2023-01-23 15:20:00 95 % Commo n [facility] respiratory rate 2023-01-23 15:20:00 16 /min [facility] blood pressure systolic 2023-01-23 15:20:00 136 mm[Hg] [facility] blood pressure diastolic 2023-01-23 15:20:00 66 mm[Hg] [facility] Systolic blood pressure 2023-01-22 21:09:00 152 mm[Hg] [facility] Diastolic blood pressure 2023-01-22 21:09:00 75 mm[Hg] [facility] Heart rate 2023-01-22 21:06:00 70 /min [facility] Body temperature 2023-01-22 21:06:00 36.28 Marina [facility] Respiratory rate 2023-01-22 21:06:00 16 /min [facility] Body weight 2023-01-22 21:06:[address] [facility] BMI 2023-01-22 21:06:00 24.88 kg/m2 [facility] Oxygen saturation in Arterial blood by Pulse oximetry 2023-01-22 21:06:00 98 /min [facility] Systolic blood pressure 2023-01-17 16:38:00 134 mm[Hg] [facility] Diastolic blood pressure 2023-01-17 16:38:00 68 mm[Hg] [facility] Heart rate 2023-01-17 16:38:00 77 /min [facility] Body temperature 2023-01-17 16:38:00 36.22 Marina [facility] Respiratory rate 2023-01-17 16:38:00 18 /min [facility] Oxygen saturation in Arterial blood by Pulse oximetry 2023-01-17 16:38:00 98 /min [facility] Body weight 2023-01-17 07:58:[address] [facility] BMI 2023-01-17 07:58:00 23.76 kg/m2 [facility] Body height 2023-01-15 21:31:[address] [facility] Systolic blood pressure 2023-01-11 15:50:00 137 mm[Hg] [facility] Diastolic blood pressure 2023-01-11 15:50:00 70 mm[Hg] [facility] Heart rate 2023-01-11 15:50:00 72 /min [facility] Respiratory rate 2023-01-11 15:50:00 17 /min [facility] Body height 2023-01-11 15:50:[address] [facility] Body weight 2023-01-11 15:50:[address] [facility] BMI 2023-01-11 15:50:00 23.86 kg/m2 [facility] Oxygen saturation in Arterial blood by Pulse oximetry 2023-01-11 15:50:00 95 /min [facility] oximetry 2022-11-13 08:00:00 96 % Commo [facility] respiratory rate 2022-11-13 08:00:00 16 /min [facility] blood pressure systolic 2022-11-13 08:00:00 122 mm[Hg] [facility] blood pressure diastolic 2022-11-13 08:00:00 64 mm[Hg] [facility] height 2022-11-13 08:00:00 69.5 [in_i] Comm on [facility] weight 2022-11-13 08:00:00 160 [lb_av] Comm on [facility] temperature 2022-11-13 08:00:00 97.1 [degF] Com mon [facility] bmi 2022-11-13 08:00:00 23.29 kg/m2 Comm on [facility] height 2022-09-01 10:20:00 69.5 [in_i] Comm on [facility] weight 2022-09-01 10:20:00 170.2 [lb_av] Co mmon [facility] temperature 2022-09-01 10:20:00 98.7 [degF] Com mon [facility] bmi 2022-09-01 10:20:00 24.77 kg/m2 Comm on [facility] oximetry 2022-09-01 10:20:00 95 % Commo n [facility] respiratory rate 2022-09-01 10:20:00 16 /min [facility] blood pressure systolic 2022-09-01 10:20:00 102 mm[Hg] [facility] blood pressure diastolic 2022-09-01 10:20:00 58 mm[Hg] [facility] height 2022-08-01 09:00:00 69.5 [in_i] Comm on [facility] weight 2022-08-01 09:00:00 179 [lb_av] Comm on [facility] temperature 2022-08-01 09:00:00 97.5 [degF] Com mon [facility] bmi 2022-08-01 09:00:00 26.05 kg/m2 Comm on [facility] oximetry 2022-08-01 09:00:00 95 % Commo n [facility] respiratory rate 2022-08-01 09:00:00 16 /min Common [facility] blood pressure systolic 2022-08-01 09:00:00 132 mm[Hg] [facility] blood pressure diastolic 2022-08-01 09:00:00 76 mm[Hg] [facility] Systolic blood pressure 2022-07-11 20:48:00 165 mm[Hg] [facility] Diastolic blood pressure 2022-07-11 20:48:00 91 mm[Hg] [facility] Heart rate 2022-07-11 20:48:00 114 /min [facility] Respiratory rate 2022-07-11 20:48:00 25 /min [facility] Oxygen saturation in Arterial blood by Pulse oximetry 2022-07-11 20:48:00 97 /min [facility] Body temperature 2022-07-11 19:05:00 36.61 Marina [facility] Body height 2022-07-11 19:04:[address] [facility] Body weight 2022-07-11 19:04:[address] [facility] BMI 2022-07-11 19:04:00 24.37 kg/m2 [facility] height 2022-06-14 08:00:00 69.5 [in_i] Comm on [facility] weight 2022-06-14 08:00:00 165 [lb_av] Comm on [facility] temperature 2022-06-14 08:00:00 97 [degF] Comm on [facility] bmi 2022-06-14 08:00:00 24.01 kg/m2 Comm on [facility] oximetry 2022-06-14 08:00:00 100 % Commo n [facility] respiratory rate 2022-06-14 08:00:00 16 /min Common [facility] blood pressure systolic 2022-06-14 08:00:00 122 mm[Hg] [facility] blood pressure diastolic 2022-06-14 08:00:00 70 mm[Hg] [facility] height 2022-06-14 08:00:00 69.5 [in_i] Comm on [facility] weight 2022-06-14 08:00:00 165 [lb_av] Comm on [facility] temperature 2022-06-14 08:00:00 97 [degF] Comm on [facility] bmi 2022-06-14 08:00:00 24.01 kg/m2 Comm on [facility] oximetry 2022-06-14 08:00:00 100 % Commo n [facility] respiratory rate 2022-06-14 08:00:00 16 /min [facility] blood pressure systolic 2022-06-14 08:00:00 122 mm[Hg] [facility] blood pressure diastolic 2022-06-14 08:00:00 70 mm[Hg] [facility] Systolic blood pressure 2022-06-12 21:02:00 127 mm[Hg] [facility] Diastolic blood pressure 2022-06-12 21:02:00 63 mm[Hg] [facility] Heart rate 2022-06-12 21:02:00 69 /[facility] 2022-[facility]-12 21:02:00 36.61 Marina [facility] Body height 2022-06-12 21:02:[address] [facility] Body weight 2022-06-12 21:02:[address] [facility] BMI 2022-06-12 21:02:00 24.74 kg/m2 [facility] Oxygen saturation in Arterial blood by Pulse oximetry 2022-06-12 21:02:00 97 /min [facility] Systolic blood pressure 2022-05-23 17:44:00 110 mm[Hg] [facility] Diastolic blood pressure 2022-05-23 17:44:00 63 mm[Hg] [facility] Heart rate 2022-05-23 17:44:00 85 /min Un[facility] Body temperature 2022-05-23 17:44:00 37.11 Marina [facility] Respiratory rate 2022-05-23 17:44:00 18 /min [facility] Oxygen saturation in Arterial blood by Pulse oximetry 2022-05-23 17:44:00 96 /min [facility] Body weight 2022-05-23 09:54:[address] [facility] BMI 2022-05-23 09:54:00 25.39 kg/m2 [facility] Body height 2022-05-19 23:19:[address] [facility] Systolic blood pressure 2022-05-18 16:48:00 145 mm[Hg] [facility] Diastolic blood pressure 2022-05-18 16:48:00 90 mm[Hg] [facility] Heart rate 2022-05-18 16:48:00 80 /min Un[facility] Respiratory rate 2022-05-18 16:44:00 22 /min [facility] Body height 2022-05-18 16:44:[address] [facility] Body weight 2022-05-18 16:44:[address] [facility] BMI 2022-05-18 16:44:00 25.55 kg/m2 [facility] Oxygen saturation in Arterial blood by Pulse oximetry 2022-05-18 16:44:00 99 /min [facility] Systolic blood pressure 2022-05-09 15:43:00 156 mm[Hg] [facility] Diastolic blood pressure 2022-05-09 15:43:00 95 mm[Hg] [facility] Heart rate 2022-05-09 15:43:00 80 /min [facility] Oxygen saturation in Arterial blood by Pulse oximetry 2022-05-09 15:43:00 100 /min [facility] Respiratory rate 2022-05-09 15:40:00 19 /min [facility] Body height 2022-05-09 15:40:[address] [facility] Body weight 2022-05-09 15:40:[address] [facility] BMI 2022-05-09 15:40:00 27.02 kg/m2 [facility] height 2022-05-03 08:00:00 69.5 [in_i] Comm on [facility] weight 2022-05-03 08:00:00 175.8 [lb_av] Co mmon [facility] temperature 2022-05-03 08:00:00 97.0 [degF] Com [facility] bmi 2022-05-03 08:00:00 25.59 kg/m2 Comm on [facility] oximetry 2022-05-03 08:00:00 95 % Commo n [facility] respiratory rate 2022-05-03 08:00:00 17 /min [facility] blood pressure systolic 2022-05-03 08:00:00 116 mm[Hg] [facility] blood pressure diastolic 2022-05-03 08:00:00 66 mm[Hg] [facility] height 2022-03-30 14:20:00 69.5 [in_i] Comm on [facility] weight 2022-03-30 14:20:00 177.4 [lb_av] Co mmon [facility] temperature 2022-03-30 14:20:00 97.1 [degF] Com [facility] bmi 2022-03-30 14:20:00 25.82 kg/m2 Comm on [facility] oximetry 2022-03-30 14:20:00 96 % Commo n [facility] respiratory rate 2022-03-30 14:20:00 17 /min [facility] blood pressure systolic 2022-03-30 14:20:00 138 mm[Hg] [facility] blood pressure diastolic 2022-03-30 14:20:00 71 mm[Hg] [facility] height 2021-11-16 08:00:00 69.5 [in_i] Comm on [facility] weight 2021-11-16 08:00:00 180 [lb_av] Comm on [facility] temperature 2021-11-16 08:00:00 98.4 [degF] Com [facility] bmi 2021-11-16 08:00:00 26.2 kg/m2 Commo n [facility] oximetry 2021-11-16 08:00:00 100 % Commo n [facility] respiratory rate 2021-11-16 08:00:00 16 /min [facility] height 2021-08-17 11:20:00 69 [in_i] Commo n [facility] weight 2021-08-17 11:20:00 183 [lb_av] Comm on [facility] temperature 2021-08-17 11:20:00 98.3 [degF] Com [facility] bmi 2021-08-17 11:20:00 27.02 kg/m2 Comm on [facility] oximetry 2021-08-17 11:20:00 98 % Commo n [facility] respiratory rate 2021-08-17 11:20:00 16 /min [facility] blood pressure systolic 2021-08-17 11:20:00 122 mm[Hg] [facility] blood pressure diastolic 2021-08-17 11:20:00 74 mm[Hg] [facility] height 2021-07-18 13:00:00 69 [in_i] Commo n [facility] weight 2021-07-18 13:00:00 181 [lb_av] Comm on [facility] temperature 2021-07-18 13:00:00 97.4 [degF] Com mon [facility] bmi 2021-07-18 13:00:00 26.73 kg/m2 Comm on [facility] oximetry 2021-07-18 13:00:00 100 % Commo n [facility] respiratory rate 2021-07-18 13:00:00 16 /min Common [facility] blood pressure systolic 2021-07-18 13:00:00 123 mm[Hg] [facility] blood pressure diastolic 2021-07-18 13:00:00 73 mm[Hg] [facility] height 2021-05-10 09:40:00 69 [in_i] Commo n [facility] weight 2021-05-10 09:40:00 187.4 [lb_av] Co mmon [facility] temperature 2021-05-10 09:40:00 97.2 [degF] Com [facility] bmi 2021-05-10 09:40:00 27.67 kg/m2 Comm on [facility] oximetry 2021-05-10 09:40:00 100 % Commo n [facility] respiratory rate 2021-05-10 09:40:00 16 /min [facility] blood pressure systolic 2021-05-10 09:40:00 128 mm[Hg] [facility] blood pressure diastolic 2021-05-10 09:40:00 70 mm[Hg] [facility] height 2021-05-10 09:20:00 69 [in_i] Commo n [facility] weight 2021-05-10 09:20:00 187.4 [lb_av] Co mmon [facility] temperature 2021-05-10 09:20:00 97.2 [degF] Com [facility] bmi 2021-05-10 09:20:00 27.67 kg/m2 Comm on [facility] oximetry 2021-05-10 09:20:00 100 % Commo n [facility] blood pressure systolic 2021-05-10 09:20:00 128 mm[Hg] Common [facility] blood pressure diastolic 2021-05-10 09:20:00 70 mm[Hg] [facility] Systolic blood pressure 2021-03-01 15:08:00 152 mm[Hg] [facility] Diastolic blood pressure 2021-03-01 15:08:00 90 mm[Hg] [facility] Heart rate 2021-03-01 15:00:00 82 /[facility] [facility] Body height 2021-03-01 15:00:[address] [facility] Body weight 2021-03-01 15:00:[address] [facility] BMI 2021-03-01 15:00:00 28.06 kg/m2 [facility] Oxygen saturation in Arterial blood by Pulse oximetry 2021-03-01 15:00:00 99 /min [facility] Systolic blood pressure 2021-03-01 15:08:00 152 mm[Hg] [facility] Diastolic blood pressure 2021-03-01 15:08:00 90 mm[Hg] [facility] Heart rate 2021-03-01 15:00:00 82 /min [facility] Body height 2021-03-01 15:00:[address] [facility] Body weight 2021-03-01 15:00:[address] [facility] BMI 2021-03-01 15:00:00 28.06 kg/m2 [facility] Oxygen saturation in Arterial blood by Pulse oximetry 2021-03-01 15:00:00 99 /min [facility] Systolic blood pressure 2021-03-01 15:08:00 152 mm[Hg] [facility] Diastolic blood pressure 2021-03-01 15:08:00 90 mm[Hg] [facility] Heart rate 2021-03-01 15:00:00 82 /min [facility] Body height 2021-03-01 15:00:[address] [facility] Body weight 2021-03-01 15:00:[address] [facility] BMI 2021-03-01 15:00:00 28.06 kg/m2 [facility] Oxygen saturation in Arterial blood by Pulse oximetry 2021-03-01 15:00:00 99 /min [facility] Systolic blood pressure 2024-05-16 13:14:00 140 mm[Hg] [facility] Diastolic blood pressure 2024-05-16 13:14:00 62 mm[Hg] [facility] Heart rate 2024-05-16 13:14:00 87 /min [facility] Body temperature 2024-05-16 13:14:00 37.17 Marina [facility] Respiratory rate 2024-05-16 13:14:00 18 /min [facility] Oxygen saturation in Arterial blood by Pulse oximetry 2024-05-16 13:14:00 92 /min [facility] Body height 2024-05-15 15:00:[address] [facility] Body weight 2024-05-15 15:00:[address] [facility] BMI 2024-05-15 15:00:00 23.63 kg/m2 [facility] Procedures Procedure Date / Time Performed Performing Clinician Source POCT GLUCOSE (AUTOMATED) 2024-06-02 13:59:00 Cristo Christiansen [facility] POCT GLUCOSE (AUTOMATED) 2024-06-02 11:03:00 Cristo Christiansen [facility] PHOSPHORUS 2024-06-02 10:56:00 Daya Aldana [facility] MAGNESIUM 2024-06-02 10:56:00 Dm AldanaLázaro [facility] BASIC METABOLIC PANEL (NA, K , CL, CO2, GLUCOSE, BUN, CREATININE, CA) 2024-06-02 10:56:00 Daya Aldana [facility] CBC WITH DIFF 2024-06-02 10:56:00 [facility] ([facility]) 2024-06-02 06:38:00 Drevets [facility] POCT GLUCOSE (AUTOMATED) 2024-06-02 02:37:00 Drevets [facility] POCT GLUCOSE (AUTOMATED) 2024-06-01 22:23:00 Drevets [facility] POCT GLUCOSE (AUTOMATED) 2024-06-01 18:33:00 Drevets [facility] POCT GLUCOSE (AUTOMATED) 2024-06-01 14:56:00 Drevets [facility] CBC WITH DIFF 2024-06-01 11:53:00 [facility] 2024-06-01 10:39:00 [facility] MAGNESIUM 2024-06-01 10:39:00 [facility]IC PANEL (NA, K , CL, CO2, GLUCOSE, BUN, CREATININE, CA) 2024-06-01 10:39:[address] [facility] POCT GLUCOSE (AUTOMATED) 2024-06-01 10:24:00 John Paulvesixto [facility] POCT GLUCOSE (AUTOMATED) 2024-06-01 06:31:00 Drebernadette [facility] POCT GLUCOSE (AUTOMATED) 2024-06-01 01:15:00 Robert [facility] POCT GLUCOSE (AUTOMATED) 2024-05-31 21:43:00 Gerson [facility] POCT GLUCOSE (AUTOMATED) 2024-05-31 17:43:00 Prasanth Hernandez [facility] MRSA / MSSA SCREEN BY PCRPHUC 2024-05 17:24:00 Wes Weiner [facility] PHOSPHORUS 2024-05-31 11:11:00 Dm AldanaLázaro [facility] MAGNESIUM 2024-05-31 11:11:00 [facility]FF 2024-05-31 09:34:00 Daya Aldana [facility] POCT GLUCOSE (AUTOMATED) 2024-05-31 09:28:00 Prasanth Hernandez [facility] POCT GLUCOSE (AUTOMATED) 2024-05-31 07:56:00 Prasanth Hernandez [facility] XR ABDOMEN 1 VW 2024-05-31 02:22:00 Juan Enamorado [facility] PHOSPHORUS 2024-05-31 01:57:00 Len Mcknight [facility] MAGNESIUM 2024-05-31 01:57:00 Len Mcknight [facility] BASIC METABOLIC PANEL (NA, K , CL, CO2, GLUCOSE, BUN, CREATININE, CA) 2024-05-31 01:57:00 Len Mcknight [facility] CBC WITH DIFF 2024-05-31 01:57:00 Len Mcknight [facility] CT ABDOMEN PELVIS WO CONTRAST 2024-05-31 00:53:00 Crow Gaona [facility] POCT GLUCOSE (AUTOMATED) 2024-05-30 23:53:00 Prasanth Hernandez [facility] POCT GLUCOSE(AGE >30DAYS) 2024-05-30 18:00:00 Daya Aldana [facility] PHOSPHORUS 2024-05-30 17:59:00 Marilee Rosraio [facility] MAGNESIUM 2024-05-30 17:59:00 Marlene [facility] BASIC METABOLIC PANEL (NA, K , CL, CO2, GLUCOSE, BUN, CREATININE, CA) 2024-05-30 17:59:00 Marilee Rosario [facility] CBC WITHOUT DIFF 2024-05-30 17:59:00 Marilee Rosario [facility] POCT GLUCOSE (AUTOMATED) 2024-05-30 17:57:00 [facility] POCT GLUCOSE (AUTOMATED) 2024-05-30 13:49:00 [facility] PHOSPHORUS 2024-05-30 09:55:00 Amy Banda [facility] MAGNESIUM 2024-05-30 09:55:00 Sakthivelnathan, [facility] TROPONIN I 2024-05-30 09:55:00 Solo [facility] BASIC METABOLIC PANEL (NA, K , CL, CO2, GLUCOSE, BUN, CREATININE, CA) 2024-05-30 09:55:00 Solo [facility] CBC WITH DIFF 2024-05-30 09:55:00 Solo [facility] PROTHROMBIN TIME / INR 2024-05-30 09:55:00 Solo [facility] ACTIVATED PARTIAL THRMPLAS MATILDE 7 09:55:00 [facility] re[facility]ne [facility] FIBRINOGEN 2024-05-30 09:55:00 [facility] LACTIC ACID WHOLE BLOOD 2024-05-30 07:19:00 Moira Cruz [facility] PREPARE PACKED RBC 2024-05-30 07:13:01 [facility] [address] ANGIOGRAM ABDOMEN/PELVIS 2024-05-30 04:55:03 [facility] HB INDIRECT ANTIGLOBULIN TEST 2024-05-30 02:22:00 [facility] TROPONIN I 2024-05-30 01:39:00 [facility] COMP. METABOLIC PANEL ([id number]) 2024-05-30 01:39:00 [facility] CBC WITH DIFF 2024-05-30 01:39:00 [facility] POCT GLUCOSE (AUTOMATED) 2024-05-19 19:52:00 Brigette Barrios [facility] POCT GLUCOSE (AUTOMATED) 2024-05-19 14:10:00 Brigette Barrios [facility] POCT GLUCOSE (AUTOMATED) 2024-05-19 14:10:00 Brigette Barrios [facility] PHOSPHORUS 2024-05-19 10:38:00 Dulce Maria Mccann [facility] MAGNESIUM 2024-05-19 10:38:00 Dulce Maria Mccann [facility] BASIC METABOLIC PANEL (NA, K , CL, CO2, GLUCOSE, BUN, CREATININE, CA) 2024-05-19 10:38[facility]00 [facility] 2024-05-19 10:38:00 Dulce Maria Mccann [facility] PHOSPHORUS 2024-05-19 10:38:00 Dulce Maria Mccann [facility] MAGNESIUM 2024-05-19 10:38:00 Ramy [facility] BASIC METABOLIC PANEL (NA, K , CL, CO2, GLUCOSE, BUN, CREATININE, CA) 2024-05-19 10:38:00 Dulce Maria Mccann [facility] CBC WITH DIFF 2024-05-19 10:38:00 Ramy [facility] POCT GLUCOSE (AUTOMATED) 2024-05-19 03:29:00 Brigette Barrios [facility] POCT GLUCOSE (AUTOMATED) 2024-05-19 03:29:00 Brigette Barrios [facility] CBC WITHOUT DIFF 2024-05-19 02:46:00 [facility] CBC WITHOUT DIFF 2024-05-19 02:46:00 [facility] POCT GLUCOSE (AUTOMATED) 2024-05-18 22:06:00 Brigette Barrios [facility] POCT GLUCOSE (AUTOMATED) 2024-05-18 22:06:00 Brigette Barrios [facility] POCT GLUCOSE (AUTOMATED) 2024-05-18 17:52:00 Brigette Barrios [facility] POCT GLUCOSE (AUTOMATED) 2024-05-18 17:52:00 Brigette Barrios [facility] POCT GLUCOSE (AUTOMATED) 2024-05-18 14:04:00 Brigette Barrios [facility] POCT GLUCOSE (AUTOMATED) 2024-05-18 14:04:00 Brigette Barrios [facility] MAGNESIUM 2024-05-18 12:42:00 Mccann, [facility] BASIC METABOLIC PANEL (NA, K , CL, CO2, GLUCOSE, BUN, CREATININE, CA) 2024-05-18 12:42:00 Ramy [facility] CBC WITH DIFF 2024-05-18 12:42:00 Ramy [facility] MAGNESIUM 2024-05-18 12:42:00 Ramy [facility] BASIC METABOLIC PANEL (NA, K , CL, CO2, GLUCOSE, BUN, CREATININE, CA) 2024-05-18 12:42:00 Ramy [facility] CBC WITH DIFF 2024-05-18 12:42:00 Ramy [facility] CBC WITH DIFF 2024-05-18 02:41:00 Ramy [facility] CBC WITH DIFF 2024-05-18 02:41:00 Ramy [facility] POCT GLUCOSE (AUTOMATED) 2024-05-18 02:18:00 Brigette Barrios [facility] POCT GLUCOSE (AUTOMATED) 2024-05-18 02:18:00 Brigette Barrios [facility] POCT GLUCOSE (AUTOMATED) 2024-05-17 22:12:00 Brigette Barrios [facility] POCT GLUCOSE (AUTOMATED) 2024-05-17 22:12:00 Brigette Barrios [facility] HB ABO GROUPING 2024-05-17 22:06:00 Oscar Cox [facility] HB ABO GROUPING 2024-05-17 22:06:00 Oscar Cox [facility] POCT GLUCOSE (AUTOMATED) 2024-05-17 20:02:00 Brigette Barrios [facility] POCT GLUCOSE (AUTOMATED) 2024-05-17 20:02:00 Brigette Barrios [facility] EGD (ENDO) 2024-05-17 20:01:41 Brigette Barrios [facility] EGD (ENDO) 2024-05-17 20:01:41 Brigette Barrios [facility] ESOPHAGOGASTRODUODENOSCOPY 2024-05-17 19:12:00 [facility] 2024-05-17 19:12:00 Omid Paceeram [facility] POCT GLUCOSE (AUTOMATED) 2024-05-17 17:33:00 Brigette Barrios [facility] POCT GLUCOSE (AUTOMATED) 2024-05-17 17:33:00 Brigette Barrios [facility] POCT GLUCOSE (AUTOMATED) 2024-05-17 14:26:00 Brigette Barrios [facility] POCT GLUCOSE (AUTOMATED) 2024-05-17 14:26:00 Brigette Barrios [facility] CBC WITHOUT DIFF 2024-05-17 14:23:00 [facility] CBC WITHOUT DIFF 2024-05-17 14:23:00 Mark Uriostegui [facility] PREPARE PACKED RBC 2024-05-17 10:10:34 Mark Uriostegui [facility] PREPARE PACKED RBC 2024-05-17 10:10:34 Mark [facility] MAGNESIUM 2024-05-17 08:53:00 Ramy [facility] BASIC METABOLIC PANEL (NA, K , CL, CO2, GLUCOSE, BUN, CREATININE, CA) 2024-05-17 08:53:00 Ramy [facility] CBC WITH DIFF 2024-05-17 08:53:00 Ramy [facility] MAGNESIUM 2024-05-17 08:53:00 Ramy [facility] BASIC METABOLIC PANEL (NA, K , CL, CO2, GLUCOSE, BUN, CREATININE, CA) 2024-05-17 08:53:00 Ramy [facility] CBC WITH DIFF 2024-05-17 08:53:00 Ramy [facility] XR CHEST 1 VW 2024-05-17 08:01:55 Ramy [facility] XR CHEST 1 VW 2024-05-17 08:01:55 Dulce Maria Mccann [facility] POCT GLUCOSE (AUTOMATED) 2024-05-17 03:09:00 Geraldo Mendoza [facility] POCT GLUCOSE (AUTOMATED) 2024-05-17 03:09:00 Geraldo Mendoza [facility] POCT GLUCOSE (AUTOMATED) 2024-05-17 01:04:00 Geraldo Mendoza [facility] POCT GLUCOSE (AUTOMATED) 2024-05-17 01:04:00 [facility] POCT GLUCOSE (AUTOMATED) 2024-05-16 18:11:00 Geraldo Mendoza [facility] POCT GLUCOSE (AUTOMATED) 2024-05-16 18:11:00 Geraldo Mendoza [facility] XR CHEST 1 VW 2024-05-16 18:03:00 Ramy [facility] XR CHEST 1 VW 2024-05-16 18:03:00 Ramy [facility] POCT GLUCOSE (AUTOMATED) 2024-05-16 15:07:00 Geraldo Mendoza [facility] POCT GLUCOSE (AUTOMATED) 2024-05-16 15:07:00 Geraldo Mendoza [facility] POCT GLUCOSE (AUTOMATED) 2024-05-16 15:07:00 Geraldo Mendoza [facility] PHOSPHORUS 2024-05-16 10:50:00 [facility]16 10:50:00 [facility] (NA, K , CL, CO2, GLUCOSE, BUN, CREATININE, CA) 2024-05-16 10:50:00 [facility] CBC WITH DIFF 2024-05-16 10:50:00 Victoria Mcginnisrigoberto [facility] PHOSPHORUS 2024-05-16 10:50:00 Victoria Mcginnisrigoberto [facility] MAGNESIUM 2024-05-16 10:50:00 [facility]IC [facility]OLIC PANEL (NA, K , CL, CO2, GLUCOSE, BUN, CREATININE, CA) 2024-05-16 10:50:00 [facility] 2024-05-16 10:50:00 Ras[facility] 2024-05-16 10:50:00 Ras [facility] 2024-05-16 10:50:00 Ras [facility] BASIC METABOLIC PANEL (NA, K , CL, CO2, GLUCOSE, BUN, CREATININE, CA) 2024-05-16 10:50:00 Ras [facility] WITH DIFF 2024-05-16 10:50:00 Ras [facility] POCT GLUCOSE (AUTOMATED) 2024-05-16 02:59:00 Geraldo Mendoza [facility] POCT GLUCOSE (AUTOMATED) 2024-05-16 02:59:00 Geraldo Mendoza [facility] POCT GLUCOSE (AUTOMATED) 2024-05-16 02:59:00 Geraldo Mendoza [facility] CBC WITHOUT DIFF 2024-05-15 23:36:00 Mcginnis, [facility] CBC WITHOUT DIFF 2024-05-15 23:36:00 Ras, [facility] CBC WITHOUT DIFF 2024-05-15 23:36:00 Ras [facility] POCT GLUCOSE (AUTOMATED) 2024-05-15 21:39:00 Jah Mtz [facility] POCT GLUCOSE (AUTOMATED) 2024-05-15 21:39:00 Jah Mtz [facility] POCT GLUCOSE (AUTOMATED) 2024-05-15 21:39:00 Jah Mtz [facility] POCT GLUCOSE (AUTOMATED) 2024-05-15 17:42:00 Jah Mtz [facility] POCT GLUCOSE (AUTOMATED) 2024-05-15 17:42:00 Jah Mtz [facility] POCT GLUCOSE (AUTOMATED) 2024-05-15 17:42:00 Jah Mtz [facility] POCT GLUCOSE (AUTOMATED) 2024-05-15 13:41:00 Julio Cesar Partida [facility] POCT GLUCOSE (AUTOMATED) 2024-05-15 13:41:00 Julio Cesar Partida [facility] POCT GLUCOSE (AUTOMATED) 2024-05-15 13:41:00 Julio Cesar Partida [facility] CBC WITH DIFF 2024-05-15 11:40:00 [facility] 2024-05-15 11:40:00 Ras [facility] BASIC METABOLIC PANEL (NA, K , CL, CO2, GLUCOSE, BUN, CREATININE, CA) 2024-05-15 11:40:00 Ras [facility] INTACT PTH CALCIUM GROUP 2024-05-15 11:40:00 Ras [facility] MAGNESIUM 2024-05-15 11:40:00 Ras [facility] BASIC METABOLIC PANEL (NA, K , CL, CO2, GLUCOSE, BUN, CREATININE, CA) 2024-05-15 11:40:00 Ras [facility] INTACT PTH CALCIUM GROUP 2024-05-15 11:40:00 Ras [facility] CBC WITH DIFF 2024-05-15 11:40:00 Ras [facility] MAGNESIUM 2024-05-15 11:40:00 Ras [facility] BASIC METABOLIC PANEL (NA, K , CL, CO2, GLUCOSE, BUN, CREATININE, CA) 2024-05-15 11:40:00 Ras [facility] INTACT PTH CALCIUM GROUP 2024-05-15 11:40:00 Ras [facility] CBC WITH DIFF 2024-05-15 11:40:00 Ras [facility] POCT GLUCOSE (AUTOMATED) 2024-05-15 02:42:00 Julio Cesar Partida [facility] POCT GLUCOSE (AUTOMATED) 2024-05-15 02:42:00 Julio Cesar Partida [facility] POCT GLUCOSE (AUTOMATED) 2024-05-15 02:42:00 Julio Cesar Partida [facility] CBC WITH DIFF 2024-05-15 00:21:00 Prasanth Dumont [facility] BASIC METABOLIC PANEL (NA, K , CL, CO2, GLUCOSE, BUN, CREATININE, CA) 2024-05-15 00:21:00 Tanya [facility] BASIC METABOLIC PANEL (NA, K , CL, CO2, GLUCOSE, BUN, CREATININE, CA) 2024-05-15 00:21:00 Tanya [facility] CBC WITH DIFF 2024-05-15 00:21:00 Prasanth Dumont [facility] BASIC METABOLIC PANEL (NA, K , CL, CO2, GLUCOSE, BUN, CREATININE, CA) 2024-05-15 00:21:00 Tanya [facility] CBC WITH DIFF 2024-05-15 00:21:00 Prasanth Dumont [facility] POCT GLUCOSE (AUTOMATED) 2024-05-14 23:43:00 Julio Cesar Partida [facility] POCT GLUCOSE (AUTOMATED) 2024-05-14 23:43:00 Julio Cesar Partida [facility] POCT GLUCOSE (AUTOMATED) 2024-05-14 23:43:00 Julio Cesar Partida [facility] PREPARE PACKED RBC 2024-05-14 17:34:11 Victoria Mcginnis [facility] PREPARE PACKED RBC 2024-05-14 17:34:11 Victoria Mcginnis [facility] PREPARE PACKED RBC 2024-05-14 17:34:11 Victoria Mcginnisrigoberto [facility] POCT GLUCOSE (AUTOMATED) 2024-05-14 15:33:00 Julio Cesar Paritda [facility] POCT GLUCOSE (AUTOMATED) 2024-05-14 15:33:00 Julio Cesar Partida [facility] POCT GLUCOSE (AUTOMATED) 2024-05-14 15:33:00 Julio Cesar Partida [facility] CBC WITH DIFF 2024-05-14 14:06:00 Dumont, [facility] CBC WITH DIFF 2024-05-14 14:06:00 Dumont, [facility] CBC WITH DIFF 2024-05-14 14:06:00 Dumont, [facility] TRANSFUSE PACKED RBC 2024-05-14 11:15:00 Dumont, [facility] TRANSFUSE PACKED RBC 2024-05-14 11:15:00 Dumont, [facility] TRANSFUSE PACKED RBC 2024-05-14 11:15:00 Dumont, [facility] PREPARE PACKED RBC 2024-05-14 11:04:28 Dumont, [facility] PREPARE PACKED RBC 2024-05-14 11:04:28 Tim, [facility] PREPARE PACKED RBC 2024-05-14 11:04:28 Tim, [facility] TRANSFUSE PACKED RBC 2024-05-14 09:04:00 Dumont, [facility] TRANSFUSE PACKED RBC 2024-05-14 09:04:00 Dumont, [facility] TRANSFUSE PACKED RBC 2024-05-14 09:04:00 Tim, [facility] HB ECG ROUTINE & RHYTHM STRIP 2024-05-14 07:15:12 [facility] ROUTINE & RHYTHM STRIP 2024-05-14 07:15:12 [facility] RHYTHM STRIP 2024-05-14 07:15:12 Aubree Woodward [facility] MAGNESIUM 2024-05-14 06:53:00 Tim [facility] FERRITIN SERUM 2024-05-14 06:53:00 Tim [facility] IRON PANEL 2024-05-14 06:53:00 Tim [facility] VITAMIN B12, LEVEL 2024-05-14 06:53:00 Tim, [facility] FOLATE 2024-05-14 06:53:00 Tim, [facility] LACTATE DEHYDROGENASE 2024-05-14 06:53:00 Dumont, [facility] HAPTOGLOBIN, SERUM 2024-05-14 06:53:00 Dumont, [facility] TROPONIN I 2024-05-14 06:53:00 Dumont, [facility] LACTATE DEHYDROGENASE 2024-05-14 06:53:00 Dumont, [facility] MAGNESIUM 2024-05-14 06:53:00 Dumont, [facility] FERRITIN SERUM 2024-05-14 06:53:00 Dumont, [facility] VITAMIN B12, LEVEL 2024-05-14 06:53:00 Dumont, [facility] FOLATE 2024-05-14 06:53:00 Dumont, [facility] HAPTOGLOBIN, SERUM 2024-05-14 06:53:00 Dumont, [facility] TROPONIN I 2024-05-14 06:53:00 Dumont, [facility] IRON PANEL 2024-05-14 06:53:00 Dumont, [facility] LACTATE DEHYDROGENASE 2024-05-14 06:53:00 Dumont, [facility] MAGNESIUM 2024-05-14 06:53:00 Dumont, [facility] FERRITIN SERUM 2024-05-14 06:53:00 Dumont, [facility] VITAMIN B12, LEVEL 2024-05-14 06:53:00 Dumont, [facility] FOLATE 2024-05-14 06:53:00 Dumont, [facility] HAPTOGLOBIN, SERUM 2024-05-14 06:53:00 Dumont, [facility] TROPONIN I 2024-05-14 06:53:00 Dumont, [facility] IRON PANEL 2024-05-14 06:53:00 Dumont, [facility] MRSA / MSSA SCREEN BY PCRPHUC 2024-04 06:50:00 Dumont, [facility] HB ABO GROUPING 2024-05-14 06:50:00 Dumont, [facility] CBC WITH DIFF 2024-05-14 06:50:00 Dumont, [facility] PROTHROMBIN TIME / INR 2024-05-14 06:50:00 Dumont, [facility] FIBRINOGEN 2024-05-14 06:50:00 Dumont, [facility] RETICULOCYTES AUTOMATED 2024-05-14 06:50:00 Dumont, [facility] CBC WITH DIFF 2024-05-14 06:50:00 Dumont, [facility] PROTHROMBIN TIME / INR 2024-05-14 06:50:00 Dumont, [facility] FIBRINOGEN 2024-05-14 06:50:00 Dumont, [facility] HB ABO GROUPING 2024-05-14 06:50:00 Dumont, [facility] RETICULOCYTES AUTOMATED 2024-05-14 06:50:00 Dumont, [facility] MRSA / MSSA SCREEN BY PCR, [facility] 2024-04 06:50:00 Dumont, [facility] CBC WITH DIFF 2024-05-14 06:50:00 Dumont, [facility] PROTHROMBIN TIME / INR 2024-05-14 06:50:00 Dumont, [facility] FIBRINOGEN 2024-05-14 06:50:00 Dumont, [facility] HB ABO GROUPING 2024-05-14 06:50:00 Dumont, [facility] RETICULOCYTES AUTOMATED 2024-05-14 06:50:00 Dumont, [facility] MRSA / MSSA SCREEN BY PCR, [facility] 2024-04 06:50:00 Dumotn, [facility] FIBRINOGEN 2024-05-14 05:24:00 Renato [facility] FIBRINOGEN 2024-05-14 05:24:00 Renato [facility] FIBRINOGEN 2024-05-14 05:24:00 Tien Gross [facility] TRANSFUSE PACKED RBC 2024-05-14 03:32:00 [facility] 2024-05-14 03:32:00 Tien Gross [facility] TRANSFUSE PACKED RBC 2024-05-14 03:32:00 Tien Gross [facility] PREPARE PACKED RBC 2024-05-14 03:27:23 Tien Gross [facility] PREPARE PACKED RBC 2024-05-14 03:27:23 Tien Gross [facility] PREPARE PACKED RBC 2024-05-14 03:27:23 Tien Gross [facility] LACTIC ACID WHOLE BLOOD 2024-05-14 03:21:00 Tien Gross [facility] LACTIC ACID WHOLE BLOOD 2024-05-14 03:21:00 Tien Gross [facility] LACTIC ACID WHOLE BLOOD 2024-05-14 03:21:00 Tien Gross [facility] CT ANGIOGRAM ABDOMEN/PELVIS 2024-05-14 02:46[facility]PELVIS 2024-05-14 02:46:55 [facility]PELVIS 2024-05-14 02:46:55 [facility]OUT[facility] & RHYTHM STRIP 2024-05-14 01:35:49 [facility] & RHYTHM STRIP 2024-05-14 01:35:49 [facility] RHYTHM STRIP 2024-05-14 01:35:49 [facility] (LAB ONLY) 2024-05-14 01:03:00 [facility]LAB ONLY) 2024-05-14 01:03:00 Tien Gross [facility] ABORH CONFIRMATION (LAB ONLY) 2024-05-14 01:03:00 Tien Gross [facility] LACTIC ACID WHOLE BLOOD 2024-05-14 00:45:00 [facility] LACT[facility] WHOLE [facility]LOOD 2024-05-14 00:45:00 [facility] LACT[facility] WHOLE BLOOD 2024-05-14 00:45:00 Tien Gross [facility] CBC WITH DIFF 2024-05-14 00:42:00 Tien Gross [facility] COMP. METABOLIC PANEL ([id number]) 2024-05-14 00:42:00 Tien Gross [facility] LIPASE 2024-05-14 00:42:00 Tien Gross [facility] TROPONIN I 2024-05-14 00:42:00 Tien Gross [facility] PROTHROMBIN TIME / INR 2024-05-14 00:42:00 Tien Gross [facility] ACTIVATED PARTIAL THRMPLAS MATILDE 2024-04-24 2 00:42:00 Tien Gross [facility] HB ABO GROUPING 2024-05-14 00:42:00 Tien Gross [facility] LIPASE 2024-05-14 00:42:00 Tien Gross [facility] TROPONIN I 2024-05-14 00:42:00 [facility] COMP. METABOLIC PANEL ([id number]) 2024-05-14 00:42:00 [facility] WITH DIFF 2024-05-14 00:42:00 [facility] PROT[facility] / INR 2024-05-14 00:42:00 [facility] ACTIVATED PARTIAL THRMPLAS MATILDE 2024-04-24 2 00:42:00 [facility] 2024-05-14 00:42:00 Tien Gross [facility] LIPASE 2024-05-14 00:42:00 [facility] TROPONIN I 2024-05-14 00:42:00 Tien Gross [facility] COMP. METABOLIC PANEL ([id number]) 2024-05-14 00:42:00 [facility] DIFF 2024-05-14 00:42:00 [facility] PROT[facility] / INR 2024-05-14 00:42:00 [facility] ACTIVATED PARTIAL THRMPLAS MATILDE 2024-04-24 2 00:42:00 [facility] 2024-05-14 00:42:00 [facility] 2024-05-14 00:16:00 Tien Gross [facility] CRITICAL CARE 2024-05-14 00:16:00 Tien Gross [facility] CRITICAL CARE 2024-05-14 00:16:00 Tien Gross [facility] POCT GLUCOSE (AUTOMATED) 2024-05-12 17:48:00 [facility] POCT GLUCOSE (AUTOMATED) 2024-05-12 17:48:00 [facility]ora [facility] POCT GLUCOSE (AUTOMATED) 2024-05-12 17:48:00 [facility]ora [facility] POCT GLUCOSE (AUTOMATED) 2024-05-12 13:52:00 [facility]ora [facility] POCT GLUCOSE (AUTOMATED) 2024-05-12 13:52:00 [facility] POCT GLUCOSE (AUTOMATED) 2024-05-12 13:52:00 [facility] XR CHEST 1 VW 2024-05-12 10:41:29 [facility] XR CHEST 1 VW 2024-05-12 10:41:29 [facility] XR CHEST 1 VW 2024-05-12 10:41:29 [facility] MAGNESIUM 2024-05-12 10:34:00 [facility] BASIC METABOLIC PANEL (NA, K , CL, CO2, GLUCOSE, BUN, CREATININE, CA) 2024-05-12 10:34:00 [facility] CBC WITH DIFF 2024-05-12 10:34:00 [facility] N-TERMINAL PRO-BNP 2024-05-12 [facility]12 10:34:00 [facility] BASIC METABOLIC PANEL (NA, K , CL, CO2, GLUCOSE, BUN, CREATININE, CA) 2024-05-12 10:34:00 [facility] CBC WITH DIFF 2024-05-12 10:34:00 [facility] N-TERMINAL PRO-BNP 2024-05-12 10:34[facility] (NA, K , CL, CO2, GLUCOSE, BUN, CREATININE, CA) 2024-05-12 10:34:00 [facility] CBC WITH DIFF 2024-05-12 10:34:00 [facility] MAGNESIUM 2024-05-12 10:34:00 [facility] N-TERMINAL PRO-BNP 2024-05-12 10:34:00 Andrea Cabrera [facility] POCT GLUCOSE (AUTOMATED) 2024-05-12 03:32:00 [facility] POCT GLUCOSE (AUTOMATED) 2024-05-12 03:32:00 [facility] POCT GLUCOSE (AUTOMATED) 2024-05-12 03:32:00 [facility] POCT GLUCOSE (AUTOMATED) 2024-05-11 22:27:00 [facility] POCT GLUCOSE (AUTOMATED) 2024-05-11 22:27:00 [facility] POCT GLUCOSE (AUTOMATED) 2024-05-11 22:27:00 [facility] POCT GLUCOSE (AUTOMATED) 2024-05-11 17:25:00 [facility]ora [facility] POCT GLUCOSE (AUTOMATED) 2024-05-11 17:25:00 [facility] POCT GLUCOSE (AUTOMATED) 2024-05-11 17:25:00 [facility] POCT GLUCOSE (AUTOMATED) 2024-05-11 13:29:00 [facility] POCT GLUCOSE (AUTOMATED) 2024-05-11 13:29:00 [facility] POCT GLUCOSE (AUTOMATED) 2024-05-11 13:29:00 [facility] XR CHEST 1 VW 2024-05-11 11:48:46 Rey Mukherjee [facility] XR CHEST 1 VW 2024-05-11 11:48:46 Rey Mukherjee [facility] XR CHEST 1 VW 2024-05-11 11:48:46 Rey Mukherjee [facility] MAGNESIUM 2024-05-11 10:16:00 [facility] IRON 2024-05-11 10:16:00 [facility] BASIC METABOLIC PANEL (NA, K , CL, CO2, GLUCOSE, BUN, CREATININE, CA) 2024-05-11 10:16:00 [facility] CBC WITH DIFF 2024-05-11 10:16:00 [facility] RETICULOCYTES AUTOMATED 2024-05-11 10:16:00 [facility]ora [facility] MAGNESIUM 2024-05-11 10:16:00 [facility] IRON 2024-05-11 10:16:00 [facility] BASIC METABOLIC PANEL (NA, K , CL, CO2, GLUCOSE, BUN, CREATININE, CA) 2024-05-11 10:16:00 [facility] CBC WITH DIFF 2024-05-11 10:16:00 [facility] RETICULOCYTES AUTOMATED 2024-05-11 10:16:00 [facility] BASIC METABOLIC PANEL (NA, K , CL, CO2, GLUCOSE, BUN, CREATININE, CA) 2024-05-11 10:16:00 [facility] CBC WITH DIFF 2024-05-11 10:16:00 [facility] MAGNESIUM 2024-05-11 10:16:00 [facility] IRON 2024-05-11 10:16:00 [facility] RETICULOCYTES AUTOMATED 2024-05-11 10:16:00 [facility] HB ECG ROUTINE & RHYTHM STRIP 2024-05-11 02:36:56 Jeniffer Tang [facility] HB ECG ROUTINE & RHYTHM STRIP 2024-05-11 02:36:35 Pb Tavarez [facility] POCT GLUCOSE (AUTOMATED) 2024-05-11 02:33:00 [facility] POCT GLUCOSE (AUTOMATED) 2024-05-11 02:33:00 [facility] POCT GLUCOSE (AUTOMATED) 2024-05-11 02:33:00 [facility] POCT GLUCOSE (AUTOMATED) 2024-05-10 22:17:00 [facility] POCT GLUCOSE (AUTOMATED) 2024-05-10 22:17:00 [facility] POCT GLUCOSE (AUTOMATED) 2024-05-10 22:17:00 [facility] POCT GLUCOSE (AUTOMATED) 2024-05-10 18:04:00 [facility] POCT GLUCOSE (AUTOMATED) 2024-05-10 18:04:00 [facility] POCT GLUCOSE (AUTOMATED) 2024-05-10 18:04:00 [facility] POCT GLUCOSE (AUTOMATED) 2024-05-10 13:33:00 [facility] POCT GLUCOSE (AUTOMATED) 2024-05-10 13:33:00 [facility] POCT GLUCOSE (AUTOMATED) 2024-05-10 13:33:00 [facility] XR CHEST 1 VW 2024-05-10 11:21:02 Rey Mukherjee [facility] XR CHEST 1 VW 2024-05-10 11:21:02 Rey Mukherjee [facility] XR CHEST 1 VW 2024-05-10 11:21:02 Rey Mukherjee [facility] MAGNESIUM 2024-05-10 10:40:00 [facility] BASIC METABOLIC PANEL (NA, K , CL, CO2, GLUCOSE, BUN, CREATININE, CA) 2024-05-10 10:40:00 [facility] CBC WITH DIFF 2024-05-10 10:40:00 [facility] MAGNESIUM 2024-05-10 10:40:00 [facility] BASIC METABOLIC PANEL (NA, K , CL, CO2, GLUCOSE, BUN, CREATININE, CA) 2024-05-10 10:40:00 [facility] CBC WITH DIFF 2024-05-10 10:40:00 [facility] BASIC METABOLIC PANEL (NA, K , CL, CO2, GLUCOSE, BUN, CREATININE, CA) 2024-05-10 10:40:00 [facility] CBC WITH DIFF 2024-05-10 10:40:00 [facility] MAGNESIUM 2024-05-10 10:40:00 [facility] POCT GLUCOSE (AUTOMATED) 2024-05-10 02:18:00 Bora Jony [facility] POCT GLUCOSE (AUTOMATED) 2024-05-10 02:18:00 Bora Jony [facility] POCT GLUCOSE (AUTOMATED) 2024-05-10 02:18:00 Bora Jony [facility] XR CHEST 1 VW 2024-05-09 21:48:20 [facility] XR CHEST 1 VW 2024-05-09 21:48:20 Bora Jony [facility] XR CHEST 1 VW 2024-05-09 21:48:20 [facility] XR CHEST 1 VW 2024-05-09 18:52:03 Rey Mukherjee [facility] XR CHEST 1 VW 2024-05-09 18:52:03 Rey Mukherjee [facility] XR CHEST 1 VW 2024-05-09 18:52:03 Rey Mukherjee [facility] POCT GLUCOSE (AUTOMATED) 2024-05-09 18:30:00 [facility] POCT GLUCOSE (AUTOMATED) 2024-05-09 18:30:00 [facility] POCT GLUCOSE (AUTOMATED) 2024-05-09 18:30:00 [facility] POCT GLUCOSE (AUTOMATED) 2024-05-09 17:42:00 [facility] POCT GLUCOSE (AUTOMATED) 2024-05-09 17:42:00 [facility] POCT GLUCOSE (AUTOMATED) 2024-05-09 17:42:00 [facility] 2024-05-09 17:16:00 Rey Mukherjee [facility] FL TIME OR (NON-REPORTABLE) 2024-05-09 17:16:00 Rey Mukherjee [facility] FL TIME OR (NON-REPORTABLE) 2024-05-09 17:16:00 Rey Mukherjee [facility] NERVE BLOCK 2024-05-09 14:59:54 Jony Vaughan [facility] [id number] - OR CRTJ ARVEN FSTL X CP DIR ANGELIKA ANAST NONAUTOG GRF 2024-05-09 13:33:00 Asad Morgan [facility] [id number] - OR INSJ TUNNELED CVC W/O SUBQ PORT/THREAD CHECKER AGE 6 YR/> 2024-05-09 13:33:00 Asad Morgan [facility] [id number] - OR CRTJ ARVEN FSTL X CP DIR ARVEN ANAST NONAUTOG GRF 2024-05-09 13:33:00 Obinna Asad [facility] [id number] - OR INSJ TUNNELED CVC W/O SUBQ PORT/THREAD CHECKER AGE 6 YR/> 2024-05-09 13:33:00 Obinna Asad [facility] POCT GLUCOSE (AUTOMATED) 2024-05-09 12:57:00 [facility] POCT GLUCOSE (AUTOMATED) 2024-05-09 12:57:00 [facility] POCT GLUCOSE (AUTOMATED) 2024-05-09 12:57:00 Pb Tavarez [facility] MAGNESIUM 2024-05-09 10:44:00 Jayla Pamila [facility] BASIC METABOLIC PANEL (NA, K , CL, CO2, GLUCOSE, BUN, CREATININE, CA) 2024-05-09 10:44:00 Jayla Pamial [facility] CBC WITH DIFF 2024-05-09 10:44:00 Jayla Pamila [facility] PROTHROMBIN TIME / INR 2024-05-09 10:44:00 Ora Dickerson [facility] MAGNESIUM 2024-05-09 10:44:00 Jayla Pamila [facility] BASIC METABOLIC PANEL (NA, K , CL, CO2, GLUCOSE, BUN, CREATININE, CA) 2024-05-09 10:44:00 Jayla Pamila [facility] CBC WITH DIFF 2024-05-09 10:44:00 Jayla Pamila [facility] PROTHROMBIN TIME / INR 2024-05-09 10:44:00 Jayla Pamila [facility] BASIC METABOLIC PANEL (NA, K , CL, CO2, GLUCOSE, BUN, CREATININE, CA) 2024-05-09 10:44:00 Ora Dickerson [facility] MAGNESIUM 2024-05-09 10:44:00 [facility] CBC WITH DIFF 2024-05-09 10:44:00 [facility] PROTHROMBIN TIME / INR 2024-05-09 10:44:00 [facility] POCT GLUCOSE (AUTOMATED) 2024-05-09 02:41:00 [facility] POCT GLUCOSE (AUTOMATED) 2024-05-09 02:41:00 [facility] POCT GLUCOSE (AUTOMATED) 2024-05-09 02:41:00 [facility] POCT GLUCOSE (AUTOMATED) 2024-05-08 23:03:00 [facility] POCT GLUCOSE (AUTOMATED) 2024-05-08 23:03:00 [facility] POCT GLUCOSE (AUTOMATED) 2024-05-08 23:03:00 [facility] POCT GLUCOSE (AUTOMATED) 2024-05-08 17:36:00 [facility] POCT GLUCOSE (AUTOMATED) 2024-05-08 17:36:00 [facility] POCT GLUCOSE (AUTOMATED) 2024-05-08 17:36:00 [facility] POCT GLUCOSE (AUTOMATED) 2024-05-08 13:33:00 [facility] POCT GLUCOSE (AUTOMATED) 2024-05-08 13:33:00 [facility] POCT GLUCOSE (AUTOMATED) 2024-05-08 13:33:00 [facility] MAGNESIUM 2024-05-08 09:39:00 [facility] FERRITIN SERUM 2024-05-08 09:39:00 Mark Tejada [facility] BASIC METABOLIC PANEL (NA, K , CL, CO2, GLUCOSE, BUN, CREATININE, CA) 2024-05-08 09:39:00 Ora Dickerson [facility] IRON PANEL 2024-05-08 09:39:00 Ankrish [facility] CBC WITH DIFF 2024-05-08 09:39[facility]00 [facility] 2024-05-08 09:39:00 Anwar [facility] HEPATITIS B SURFACE ANTIGEN 2024-05-08 09:39:00 Anwar [facility] HCV ANTIBODY 2024-05-08 09:39:00 Anwar [facility] HBC ANTIBODY (IGM & IGG) 2024-05-08 09:39:00 Jony Ram [facility] HEPATITIS B CORE ANTIBODY IGM 2024-05-08 09:39:00 Anwar [facility] PROCALCITONIN 2024-05-08 09:39:00 Bakari Nesbitt [facility] MAGNESIUM 2024-05-08 09:39:00 [facility] FERRITIN SERUM 2024-05-08 09:39:00 Ankrish [facility] BASIC METABOLIC PANEL (NA, K , CL, CO2, GLUCOSE, BUN, CREATININE, CA) 2024-05-08 09:39:00 [facility] IRON PANEL 2024-05-08 09:39:00 Ankrish [facility] CBC WITH DIFF 2024-05-08 09:39:00 [facility] HEPATITIS B SURFACE ANTIBODY 2024-05-08 09:39:00 Anwar [facility] HEPATITIS B SURFACE ANTIGEN 2024-05-08 09:39:00 Anwar, [facility] HCV ANTIBODY 2024-05-08 09:39:00 Anwar, [facility] HBC ANTIBODY (IGM & IGG) 2024-05-08 09:39:00 Jony Ram [facility] HEPATITIS B CORE ANTIBODY IGM 2024-05-08 09:39:00 Anwar [facility] PROCALCITONIN 2024-05-08 09:39:00 Bakari Nesbitt [facility] PROCALCITONIN 2024-05-08 09:39:00 Bakari Nesbitt [facility] BASIC METABOLIC PANEL (NA, K , CL, CO2, GLUCOSE, BUN, CREATININE, CA) 2024-05-08 09:39:00 Ora Dickerson [facility] MAGNESIUM 2024-05-08 09:39:00 [facility] CBC WITH DIFF 2024-05-08 09:39:00 [facility] HCV ANTIBODY 2024-05-08 09:39:00 Mallory [facility] IRON PANEL 2024-05-08 09:39:00 Ankrish [facility] FERRITIN SERUM 2024-05-08 09:39:00 Ankrish [facility] HEPATITIS B CORE ANTIBODY IGM 2024-05-08 09:39:00 Anwar [facility] HEPATITIS B SURFACE ANTIBODY 2024-05-08 09:39:00 Anwar [facility] HEPATITIS B SURFACE ANTIGEN 2024-05-08 09:39:00 Anwar [facility] HBC ANTIBODY (IGM & IGG) 2024-05-08 09:39:00 Jony Ram [facility] POCT GLUCOSE (AUTOMATED) 2024-05-08 02:16:00 [facility] POCT GLUCOSE (AUTOMATED) 2024-05-08 02:16:00 [facility] POCT GLUCOSE (AUTOMATED) 2024-05-08 02:16:00 [facility] POCT GLUCOSE (AUTOMATED) 2024-05-07 22:39:00 [facility] POCT GLUCOSE (AUTOMATED) 2024-05-07 22:39:00 [facility] POCT GLUCOSE (AUTOMATED) 2024-05-07 22:39:00 [facility] POCT GLUCOSE (AUTOMATED) 2024-05-07 17:29:00 [facility] POCT GLUCOSE (AUTOMATED) 2024-05-07 17:29[facility] 2024-05-07 17:29[facility]00 [facility] COM PLETE W/ CONTRAST 2024-05-07 16:09:00 [facility] TRANSTHORACIC ECHO (TTE) COM PLETE W/ CONTRAST 2024-05-07 16:09:00 [facility]TTE[facility] COM PLETE W/ CONTRAST 2024-05-07 16:09:00 [facility] CYTO PLEURAL FLUID 2024-05-07 16:05:00 Brennan Nesbitt [facility] CYTO PLEURAL FLUID 2024-05-07 16:05:00 Brennan Nesbitt [facility] CYTO PLEURAL FLUID 2024-05-07 16:05:00 Brennan Nesbitt [facility] XR CHEST 1 VW 2024-05-07 15:59:38 Brennan Nesbitt [facility] XR CHEST 1 VW 2024-05-07 15:59:38 Brennan Nesbitt [facility] XR CHEST 1 VW 2024-05-07 15:59:38 Brennan Nesbitt [facility] GLUCOSE BODY FLUID 2024-05-07 15:55:00 Brennan Nesbitt [facility] PH, BODY FLUID 2024-05-07 15:55:00 Brennan Nesbitt [facility] ALBUMIN BODY FLUID 2024-05-07 15:55:00 Brennan Nesbitt [facility] T.PROTEIN BODY FLUID 2024-05-07 15:55:00 Brennan Nesbitt [facility] BODY FLUID DIRECT COUNT 2024-05-07 15:55:00 Brennan Nesbitt [facility] BODY FLUID CULTURE(AEROBIC/ANAEROBIC) 2024-05-07 15:55:00 Brennan Nesbitt [facility] LDH TOTAL BODY FLUID 2024-05-07 15:55:00 Brennan Nesbitt [facility] GLUCOSE BODY FLUID 2024-05-07 15:55:00 Delicia juju Huitron [facility] PH, BODY FLUID 2024-05-07 15:55:00 Delicia juju [facility] ALBUMIN BODY FLUID 2024-05-07 15:55:00 Delicia juju [facility] T.PROTEIN BODY FLUID 2024-05-07 15:55:00 Delicia juju Huitron [facility] BODY FLUID DIRECT COUNT 2024-05-07 15:55:00 Delicia [facility] BODY FLUID CULTURE(AEROBIC/ANAEROBIC) 2024-05-07 15:55:00 Delicia juju [facility] LDH TOTAL BODY FLUID 2024-05-07 15:55:00 Delicia [facility] ALBUMIN BODY FLUID 2024-05-07 15:55:00 Delicia [facility] BODY FLUID MANUAL DIFF 2024-05-07 15:55:00 [facility] BODY FLUID CULTURE(AEROBIC/ANAEROBIC) 2024-05-07 15:55:00 Delicia juju [facility] GLUCOSE BODY FLUID 2024-05-07 15:55:00 Delicia juju [facility] T.PROTEIN BODY FLUID 2024-05-07 15:55:00 Delicia juju [facility] PH, BODY FLUID 2024-05-07 15:55:00 Delicia juju [facility] LDH TOTAL BODY FLUID 2024-05-07 15:55:00 Delicia juju [facility] IR THORACENTESIS WITH IMAGING 2024-05-07 15:50:00 [facility] IR THORACENTESIS WITH IMAGING 2024-05-07 15:50:00 [facility] IR THORACENTESIS WITH IMAGING 2024-05-07 15:50:00 [facility] POCT GLUCOSE (AUTOMATED) 2024-05-07 14:04:00 [facility] POCT GLUCOSE (AUTOMATED) 2024-05-07 14:04:00 [facility] POCT GLUCOSE (AUTOMATED) 2024-05-07 14:04:00 [facility] PHOSPHORUS 2024-05-07 11:06:00 [facility] MAGNESIUM 2024-05-07 11:06:00 [facility] TROPONIN I 2024-05-07 11:06:00 [facility] BASIC METABOLIC PANEL (NA, K , CL, CO2, GLUCOSE, BUN, CREATININE, CA) 2024-05-07 11:06:00 [facility] CBC WITHOUT DIFF 2024-05-07 11:06:00 [facility] N-TERMINAL PRO-BNP 2024-05-07 11:06:00 [facility] PHOSPHORUS 2024-05-07 11:06:00 [facility] MAGNESIUM 2024-05-07 11:06:00 [facility] TROPONIN I 2024-05-07 11:06:00 [facility] BASIC METABOLIC PANEL (NA, K , CL, CO2, GLUCOSE, BUN, CREATININE, CA) 2024-05-07 11:06:00 [facility] CBC WITHOUT DIFF 2024-05-07 11:06:00 [facility] N-TERMINAL PRO-BNP 2024-05-07 11:06:00 [facility] BASIC METABOLIC PANEL (NA, K , CL, CO2, GLUCOSE, BUN, CREATININE, CA) 2024-05-07 11:06:00 [facility] MAGNESIUM 2024-05-07 11:06:00 [facility] PHOSPHORUS 2024-05-07 11:06:00 [facility] N-TERMINAL PRO-BNP 2024-05-07 11:06:00 [facility] CBC WITHOUT DIFF 2024-05-07 11:06:00 [facility] TROPONIN I 2024-05-07 11:06:00 [facility] GLYCOSYLATED HEMOGLOBIN (A1C) 2024-05-07 03:18:00 [facility] GLYCOSYLATED HEMOGLOBIN (A1C) 2024-05-07 03:18:00 [facility] GLYCOSYLATED HEMOGLOBIN (A1C) 2024-05-07 03:18:00 [facility] POCT GLUCOSE (AUTOMATED) 2024-05-07 02:35:00 [facility] POCT GLUCOSE (AUTOMATED) 2024-05-07 02:35:00 [facility] POCT GLUCOSE (AUTOMATED) 2024-05-07 02:35:00 [facility] HB ECG ROUTINE & RHYTHM STRIP 2024-05-07 00:18:23 [facility] HB ECG ROUTINE & RHYTHM STRIP 2024-05-07 00:18:23 Cathy [facility] HB ECG ROUTINE & RHYTHM STRIP 2024-05-07 00:18:23 [facility] XR CHEST 1 VW 2024-05-07 00:11:33 [facility] XR CHEST 1 VW 2024-05-07 00:11:33 [facility] XR CHEST 1 VW 2024-05-07 00:11:33 [facility] PHOSPHORUS 2024-05-07 00:09:00 [facility] MAGNESIUM 2024-05-07 00:09:00 [facility] TROPONIN I 2024-05-07 00:09:00 [facility] COMP. METABOLIC PANEL ([id number]) 2024-05-07 00:09:00 [facility] CBC WITH DIFF 2024-05-07 00:09:00 [facility] N-TERMINAL PRO-BNP 2024-05-07 00:09:00 [facility] PHOSPHORUS 2024-05-07 00:09:00 Pb Tavarez [facility] MAGNESIUM 2024-05-07 00:09[facility]-07 00:09:00 [facility] COMP. METABOLIC PANEL ([id number]) 2024-05-07 00:09:00 [facility] CBC WITH DIFF 2024-05-07 00:09:00 [facility] N-TERMINAL PRO-BNP 2024-05-07 00:09:00 [facility] CBC WITH DIFF 2024-05-07 00:09:00 [facility] COMP. METABOLIC PANEL ([id number]) 2024-05-07 00:09:00 [facility] N-TERMINAL PRO-BNP 2024-05-07 00:09:00 [facility] TROPONIN I 2024-05-07 00:09:00 [facility] MAGNESIUM 2024-05-07 00:09:00 [facility]-05-07 00:09:00 [facility] XR LUMBAR SPINE 3 VW 2024-02-18 19:47:57 Jaki Downs [facility] XR SPINE THORACIC 2 VW 2024-02-18 19:47:57 Jaki Downs [facility] XR SPINE THORACIC 2 VW 2024-02-18 19:47:57 Jaki Downs [facility] XR LUMBAR SPINE 3 VW 2024-02-18 19:47:57 Jaki Downs [facility] TROPONIN I 2024-01-30 23:20:00 Jaki Downs [facility] XR CHEST 1 VW 2024-01-30 21:28:34 Jaki Downs [facility] HB ECG ROUTINE & RHYTHM STRIP 2024-01-30 21:07:32 Jaki Downs [facility] MAGNESIUM 2024-01-30 21:03:00 Jaki Downs [facility] TROPONIN I 2024-01-30 21:03:00 Jaki Downs [facility] COMP. METABOLIC PANEL ([id number]) 2024-01-30 21:03:00 Jaki Downs [facility] CBC WITH DIFF 2024-01-30 21:03:00 Jaki Downs [facility] N-TERMINAL PRO-BNP 2024-01-30 21:03:00 Jaki Downs [facility] PHYSICIAN ORDERS 2023-12-20 16:24:18 Doctor Unassigned, [place] [facility] PHYSICIAN ORDERS 2023-11-29 19:54:09 Doctor Unassigned, [place] [facility] PHYSICIAN ORDERS 2023-11-29 19:52:22 Doctor Unassigned, [place] [facility] POCT GLUCOSE (AUTOMATED) 2023-09-08 16:10:00 Jony Ram [facility] POCT GLUCOSE (AUTOMATED) 2023-09-08 12:44:00 Jony Ram [facility] BLOOD CULTURE SCREEN 2023-09-08 12:16:00 Eder Quezada [facility] LIPASE 2023-09-08 12:16:00 Eder Quezada [facility] CRITICAL CARE 2023-09-08 11:50:30 Tien Gross [facility] POCT GLUCOSE (AUTOMATED) 2023-09-08 11:48:00 Tien Gross [facility] POCT GLUCOSE (AUTOMATED) 2023-09-08 10:28:00 Tien Gross [facility] LIPASE 2023-09-08 10:27:00 Tien Gross [facility] TROPONIN I 2023-09-08 10:27:00 Tien Gross [facility] COMP. METABOLIC PANEL (10343) 2023-09-08 10:27:00 Tien Gross [facility] ETHANOL 2023-09-08 10:27:00 Tien Gross [facility] CBC WITH DIFF 2023-09-08 10:27:00 Tien Gross [facility] EXTERNAL PROVIDER RECORDS 2023-05-04 06:01:00 Doctor Unassigned, Morganza [facility] CBC WITH DIFF 2023-05-03 20:16:00 Mallory [facility] FERRITIN SERUM 2023-05-03 20:16:00 Mallory [facility] IRON 2023-05-03 20:16:00 Mallory [facility] BASIC METABOLIC PANEL (NA, K , CL, CO2, GLUCOSE, BUN, CREATININE, CA) 2023-04-06 20:35:00 Mayur Carolina [facility] N-TERMINAL PRO-BNP 2023-04-06 20:35:00 Mayur Carolina [facility] CARDIAC CATHETERIZATION 2023-04-02 15:51:00 Dilia Turner [facility] CATH PROCEDURE LOG 2023-04-02 15:43:33 Dilia Turner [facility] CBC WITH DIFF 2023-04-02 12:57:00 Mayur Carolina [facility] PROTHROMBIN TIME / INR 2023-04-02 12:57:00 Mayur Carolina [facility] OUTPATIENT CARDIAC CATHETERI ZATION DOCUMENTS 2023-04-02 06:01:00 Doctor Unassigned, Morganza [facility] PULMONARY FUNCTION TEST (RESULTS) 2022-04 20:16:30 Chris Salmon [facility] PULMONARY FUNCTION TEST (RESULTS) 2022-04 19:02:34 Chris Salmonahim [facility] DISCLOSURE AND CONSENT, MEDI MEDINA AND SURGICAL PROCEDURES 2023-03-29 06:01:00 Doctor Unassigned, Morganza [facility] POCT GLUCOSE (AUTOMATED) 2023-01-17 16:36:00 Jony Ram [facility] POCT GLUCOSE (AUTOMATED) 2023-01-17 12:34:00 Jony Ram [facility] MAGNESIUM 2023-01-17 09:08:00 Pb Tavarez [facility] BASIC METABOLIC PANEL (NA, K , CL, CO2, GLUCOSE, BUN, CREATININE, CA) 2023-01-17 09:08:00 Pb Tavarez [facility] N-TERMINAL PRO-BNP 2023-01-17 09:08:00 Pb Tavarez [facility] POCT GLUCOSE (AUTOMATED) 2023-01-17 08:51:00 Jony Ram [facility] POCT GLUCOSE (AUTOMATED) 2023-01-17 07:56:00 Jony Ram [facility] POCT GLUCOSE (AUTOMATED) 2023-01-17 01:58:00 Jony Ram [facility] POCT GLUCOSE (AUTOMATED) 2023-01-16 21:41:00 Jony Ram [facility] US RETROPERITONEAL LIMITED 2023-01-16 19:36:20 Ora Dickerson [facility] URIC ACID 2023-01-16 16:54:00 Mallory [facility] MAGNESIUM 2023-01-16 16:54:00 Mallory [facility] BASIC METABOLIC PANEL (NA, K , CL, CO2, GLUCOSE, BUN, CREATININE, CA) 2023-01-16 16:54:00 Mallory [facility] N-TERMINAL PRO-BNP 2023-01-16 16:54:00 Lucia Craft [facility] POCT GLUCOSE (AUTOMATED) 2023-01-16 16:30:00 Bora [facility] TRANSTHORACIC ECHO (TTE) COM PLETE W/ CONTRAST 2023-01-16 13:55:00 Bora [facility] POCT GLUCOSE (AUTOMATED) 2023-01-16 13:24:00 Jony Ram [facility] XR CHEST 1 VW 2023-01-16 12:53:00 Bakari Nesbitt [facility] GLUCOSE BODY FLUID 2023-01-16 12:24:00 Bakari Nesbitt [facility] PH, BODY FLUID 2023-01-16 12:24:00 Bakari Nesbitt [facility] T.PROTEIN BODY FLUID 2023-01-16 12:24:00 Bakari Nesbitt [facility] BODY FLUID DIRECT COUNT 2023-01-16 12:24:00 Bakari Nesbitt [facility] BODY FLUID CULTURE(AEROBIC/ANAEROBIC) 2023-01-16 12:24:00 Bakari Nesbitt [facility] LDH TOTAL BODY FLUID 2023-01-16 12:24:00 Bakari Nesbitt [facility] GLYCOSYLATED HEMOGLOBIN (A1C) 2023-01-16 09:23:00 Jony Ram [facility] POCT GLUCOSE (AUTOMATED) 2023-01-16 02:28:00 Jony Ram [facility] CT THORAX WO CONTRAST 2023-01-15 19:29:24 Tien Gross [facility] CT THORAX WO CONTRAST 2023-01-15 19:29:24 Tien Gross [facility] XR CHEST 1 VW 2023-01-15 18:05:04 [facility]23-01-15 17:50:00 [facility] COMP. METABOLIC PANEL (25753) 2023-01-15 17:50:00 [facility] WITH DIFF 2023-01-15 17:50:00 [facility] PROT[facility] / INR 2023-01-15 17:50:00 Renato [facility] ACTIVATED PARTIAL THRMPLAS MATILDE 2022-12-23 5 17:50:00 Renato [facility] N-TERMINAL PRO-BNP 2023-01-15 17:50:00 Renato [facility] HB ECG ROUTINE & RHYTHM STRIP 2023-01-15 17:44:13 Renato [facility] CONSENT/REFUSAL FOR DIAGNOSI S AND TREATMENT 2023-01-15 17:12:24 Doctor Unassigned, Morganza [facility] ASSIGNMENT OF BENEFITS 2022-08-03 15:51:54 Doctor Unassigned, Morganza [facility] POCT GLUCOSE(AGE >30DAYS) 2022-07-11 20:27:00 Benjamin Kimbrough [facility] POCT GLUCOSE (AUTOMATED) 2022-07-11 20:15:00 Benjamin Kimbrough [facility] POCT GLUCOSE (AUTOMATED) 2022-05-23 17:45:00 Pb Tavarez [facility] POCT GLUCOSE (AUTOMATED) 2022-05-23 13:41:00 [place], [facility] MAGNESIUM 2022-05-23 10:00:00 Corby [facility] BASIC METABOLIC PANEL (NA, K , CL, CO2, GLUCOSE, BUN, CREATININE, CA) 2022-05-23 10:00:00 [facility] N-TERMINAL PRO-BNP 2022-05-23 10:00:00 Cor[facility] POCT GLUCOSE (AUTOMATED) 2022-05-23 09:55:00 [facility] POCT GLUCOSE (AUTOMATED) 2022-05-23 06:06:00 [facility] POCT GLUCOSE (AUTOMATED) 2022-05-23 05:34:00 [facility] POCT GLUCOSE (AUTOMATED) 2022-05-23 02:46:00 [facility] POCT GLUCOSE (AUTOMATED) 2022-05-22 22:33:00 O[facility] POCT GLUCOSE (AUTOMATED) 2022-05-22 17:35:00 [facility] POCT GLUCOSE (AUTOMATED) 2022-05-22 13:28:00 [facility] POCT GLUCOSE (AUTOMATED) 2022-05-22 10:31:00 [facility] POCT GLUCOSE (AUTOMATED) 2022-05-22 10:00:00 [facility] MAGNESIUM 2022-05-22 09:49:00 [facility] TROPONIN I 2022-05-22 09:49:00 Lucia Craft [facility] BASIC METABOLIC PANEL (NA, K , CL, CO2, GLUCOSE, BUN, CREATININE, CA) 2022-05-22 09:49:00 [facility] N-TERMINAL PRO-BNP 2022-05-22 09:49:00 [facility] POCT GLUCOSE (AUTOMATED) 2022-05-22 02:27:00 [facility] POCT GLUCOSE (AUTOMATED) 2022-05-21 22:50:00 [facility] POCT GLUCOSE (AUTOMATED) 2022-05-21 17:17:00 [facility] POCT GLUCOSE (AUTOMATED) 2022-05-21 13:25:00 [facility] MAGNESIUM 2022-05-21 10:42:00 [facility] BASIC METABOLIC PANEL (NA, K , CL, CO2, GLUCOSE, BUN, CREATININE, CA) 2022-05-21 10:42:00 [facility] CBC WITHOUT DIFF 2022-05-21 10:42:00 [facility] N-TERMINAL PRO-BNP 2022-05-21 10:42:00 [facility] POCT GLUCOSE (AUTOMATED) 2022-05-21 10:31:00 [facility] POCT GLUCOSE (AUTOMATED) 2022-05-21 06:03:00 [facility] POCT GLUCOSE (AUTOMATED) 2022-05-21 02:32:00 [facility] POCT GLUCOSE (AUTOMATED) 2022-05-20 22:30:00 [facility] POCT GLUCOSE (AUTOMATED) 2022-05-20 17:17:00 [facility] POCT GLUCOSE (AUTOMATED) 2022-05-20 14:29:00 [facility] MAGNESIUM 2022-05-20 09:58:00 [facility] BASIC METABOLIC PANEL (NA, K , CL, CO2, GLUCOSE, BUN, CREATININE, CA) 2022-05-20 09:58:00 [facility] N-TERMINAL PRO-BNP 2022-05-20 09:58:00 [facility] POCT GLUCOSE (AUTOMATED) 2022-05-20 07:10:00 [facility] POCT GLUCOSE (AUTOMATED) 2022-05-20 02:51:00 Pb Tavarez [facility] POCT GLUCOSE (AUTOMATED) 2022-05-19 23:21:00 Pb Tavarez [facility] TRANSTHORACIC ECHO (TTE) COM PLETE W/ CONTRAST 2022-05-19 19:39:00 Benjamin Kimbrough [facility] URINALYSIS 2022-05-19 17:31:00 Benjamin Kimbrough [facility] XR CHEST 1 VW 2022-05-19 17:14:04 Benjamin Kimbrough Radha [facility] MAGNESIUM 2022-05-19 17:01:00 Benjamin Kimbrough [facility] TROPONIN I 2022-05-19 17:01:00 Benjamin Kimbrough [facility] COMP. METABOLIC PANEL (33631) 2022-05-19 17:01:00 Benjamin Kimbrough [facility] CBC WITH DIFF 2022-05-19 17:01:00 Benjamin Kimbrough [facility] GLYCOSYLATED HEMOGLOBIN (A1C) 2022-05-19 [facility]:01[facility] 2022-05-19 17:01:00 Benjamin Kimbrough [facility] COVID-19 (ID NOW RAPID TESTING) 17:01:00 Benjamin Kimbrough [facility] LAB ONLY COVID INTERPRETATION 2022-05-19 17:01:00 Benjamin Kimbrough [facility] HB ECG ROUTINE & RHYTHM STRIP 2022-05-19 17:00:35 Benjamin Kimbrough [facility] CONSENT/REFUSAL FOR DIAGNOSI S AND TREATMENT 2022-05-19 16:02:02 Doctor Unassigned, Morganza [facility] LIPID PANEL (44425)(TOTAL CHOLESTEROL, TRIGLYCERIDES, HDL) 2022-05-18 17:16:00 Andrea Cabrera [facility] CONSENT/REFUSAL FOR DIAGNOSI S AND TREATMENT 2022-05-09 14:48:11 Doctor Unassigned, Morganza [facility] DME/SUPPLY JUSTIFICATION 2022-03-08 06:01:00 Doctor Unassigned, Morganza [facility] DME/SUPPLY JUSTIFICATION 2022-01-18 05:01:00 Doctor Unassigned, Morganza [facility] DME/SUPPLY JUSTIFICATION 2022-01-04 05:01:00 Doctor Unassigned, Morganza [facility] REFERRAL- REQUEST/RESPONSE 2021-11-11 05:01:00 Doctor Unassigned, Morganza [facility] EXTERNAL PROVIDER - ADC CARDIOLOGY 07-19 05:01:00 Doctor Unassigned, Morganza [facility] SLEEP LAB RESULTS 2021-06-01 06:01:00 Doctor Unassigned, Morganza [facility] HB ECG ROUTINE & RHYTHM STRIP 2021-03-01 15:12:23 Andrea Cabrera [facility] Encounters Start Date/Time End Date/Time Encounter Type Admission Type Attending [facility] Care Facility Care Department Encounter ID Source 2024-05-28 11:08:00 Outpatient Jennifer Sonia STLML[facility] ST[facility] [id number] [facility] 2024-05-15 14:09:00 Outpatient Jennifer Sonia STLMLC STLMLC [id number] [facility] 2024-04-21 14:13:09 Outpatient ISMAEL BAGLEY [facility] [id number] [facility] 2024-02-13 09:53:00 Outpatient Jennifer Sonia STLMLC STLMLC [id number] [facility] 2023-11-14 13:57:00 Outpatient Dubon Sonia STLMLC STLMLC [id number] [facility] 2023-11-12 09:57:00 Outpatient Dubon Sonia STLMLC STLMLC [id number] [facility] 2023-08-13 08:34:00 Outpatient Jennifer Sonia STLMLC STLMLC [id number] [facility] 2023-07-16 13:55:00 Outpatient Dubon, Sonia STLMLC STLMLC [id number] [facility] 2023-06-28 13:35:01 Outpatient Dubon, Sonia STLMLC STLMLC [id number] [facility] 2023-06-14 10:27:01 Outpatient Dubon, Sonia STLMLC STLMLC [id number] [facility] 2023-03-19 16:22:00 Outpatient Dubon, Sonia STLMLC STLMLC [id number] [facility] 2023-02-13 16:00:00 Outpatient Dubon, Sonia STLMLC STLMLC [id number] [facility] 2022-09-01 10:11:00 Outpatient Dubon, Sonia STLMLC STLMLC [id number] [facility] 2022-07-12 09:07:01 Outpatient Dubon, Sonia STLMLC STLMLC [id number] [facility] 2022-06-14 10:56:02 Outpatient Dubon, Sonia STLMLC STLMLC [id number] [facility] 2022-06-13 14:04:02 Outpatient Dubon, Sonia STLMLC STLMLC [id number] [facility] 2022-06-12 09:10:01 Outpatient Dubon, Sonia STLMLC STLMLC [id number] [facility] 2022-06-05 09:30:02 Outpatient Dubon, Sonia STLMLC STLMLC [id number] [facility] 2022-03-29 11:32:01 Outpatient Dubon, Sonia STLMLC STLMLC [id number] [facility] 2022-02-22 08:52:02 Outpatient Dubon, Sonia STLMLC STLMLC [id number] [facility] 2022-01-25 11:16:03 Outpatient Sonia Dubon STLC [id number] [facility] 2021-11-28 16:51:01 Outpatient DubonSonia [facility] [id number] [facility] 2021-07-15 09:35:02 Outpatient DubonSonia rapp [facility] [id number] [facility] 2021-05-18 14:36:44 Outpatient Sonia Dubon [facility] [id number] [facility] 2024-08-04 13:00:00 2024-08-04 13:00:00 Outpatient ASAD POND [facility] [id number] [facility] 2024-07-22 00:00:00 2024-07-22 00:00:00 [facility] [id number] [facility] 2024-07-15 00:00:00 2024-07-15 14:29:25 Letter (Out) Greg Recinos [facility] 1.2.840.114 350.1.13.10 4.2.7.2.686 [id number] [facility] 2024-07-15 10:00:00 2024-07-15 10:30:00 Office Visit Justo Ornelas Joseph Marc [facility] 1.2.840.114 350.1.13.10 4.2.7.2.686 [id number] [facility] 2024-07-15 10:00:00 2024-07-15 10:00:00 Outpatient SATHISH HENDRICKS [facility] [id number] [facility] 2024-07-10 14:00:00 2024-07-10 15:06:46 Outpatient R ISMAEL HUNTER [facility] [id number] [facility] 2023-11-29 00:00:00 2024-06-07 07:10:33 Orders Only Doctor Unassigned, Morganza Doctor Unassigned, Morganza [facility] 1.2.840.114 350.1.13.10 4.2.7.2.686 [id number] [facility] 2023-11-29 00:00:00 2024-06-07 07:10:21 Orders Only Doctor Unassigned, Morganza Doctor Unassigned, Morganza [facility] 1.2.840.114 350.1.13.10 4.2.7.2.686 [id number] [facility] 2023-12-20 00:00:00 2024-06-07 07:02:59 Orders Only Doctor Unassigned, Morganza Doctor Unassigned, Morganza [facility] 1.2.840.114 350.1.13.10 4.2.7.2.686 [id number] [facility] 2024-06-06 00:00:00 2024-06-06 00:00:00 (HOSP F/U) Hospital Follow Up [facility] [id number] [facility] 2024-06-03 00:00:00 2024-06-03 16:34:29 Transition of Care Saida Miles Maria [facility] [place] 1.2.840.114 350.1.13.10 4.2.7.2.686 [id number] [facility] 2024-06-03 00:00:00 2024-06-03 00:00:00 (TEL) [facility] [id number] [facility] 2024-05-30 03:03:00 2024-06-02 18:27:00 Inpatient CRISTO BLANK, PETER [facility] CARL [id number] [facility] 2024-05-30 03:03:00 2024-06-02 18:27:00 Hospital Encounter Prasanth Hernandez Cristo Christiansen [facility] 1.2.840.114 350.1.13.10 4.2.7.2.686 [id number] [facility] 2024-05-29 19:02:00 2024-05-30 01:54:00 Emergency X ROSA MARIAERJOZEF , MOIRA WILSON [facility] ERT [id number] [facility] 2024-05-29 19:02:00 2024-05-30 01:54:00 Emergency Michael Herrera Erin Laura [facility] 1.2.840.114 350.1.13.10 4.2.7.2.686 [id number] [facility] 2024-05-28 00:00:00 2024-05-28 00:00:00 (TEL) [facility] [id number] [facility] 2024-05-27 00:00:00 2024-05-27 10:26:33 Transition of Care Yvonne Lilly Donna B [place] [place] 1.2.840.114 350.1.13.10 4.2.7.2.686 [id number] [facility] 2024-05-23 00:00:00 2024-05-23 00:00:00 (EST. VIDEO) EST VIRTUAL VIDEO VISIT [facility] [id number] [facility] 2024-05-23 00:00:00 2024-05-23 00:00:00 (TEL) [facility] [id number] [facility] 2024-05-20 00:00:00 2024-05-20 16:10:50 Telephone Dulce Maria Mccann [facility] ([place] 1.0.114 350.1.13.10 4.2.7.2.686 [id number] [facility] 2024-05-20 00:00:00 2024-05-20 11:59:47 Transition of Care Maria A Chau Miatha R [facility] 1.0.114 350.1.13.10 4.2.7.2.686 [id number] [facility] 2024-05-20 00:00:00 2024-05-20 00:00:00 [facility]TEL[facility] [id number] [facility] 2024-05-13 18:25:00 2024-05-19 16:10:00 Inpatient X FROILAN BARRIOSSAY [facility] [id number] [facility] 2024-05-13 18:25:00 2024-05-19 16:10:00 Hospital Encounter Tien Gross, Julio Cesar Mtz, Jah Mendoza, Geraldo Trimble [facility] [place] [facility] ([place] 1..114 350.1.13.10 4.2.7.2.686 [id number] [facility] 2024-05-17 00:00:00 2024-05-19 13:32:56 Refill Mayur Silva [facility] 1..114 350.1.13.10 4.2.7.2.686 [id number] [facility] 2024-05-19 00:00:00 2024-05-19 00:00:00 (TEL) [facility] [id number] [facility] 2024-05-17 13:40:00 2024-05-17 14:41:00 Surgery Luis Pace [facility] ([place] 1.20.114 350.1.13.10 4.2.7.2.686 [id number] [facility] 2024-05-16 00:00:00 2024-05-16 00:00:00 (TEL) [facility] [id number] [facility] 2024-05-15 00:00:00 2024-05-15 00:00:00 (TEL) [facility] ST[facility] [id number] [facility] 2024-05-15 00:00:00 2024-05-15 00:00:00 (TEL) [facility] [id number] [facility] 2024-05-14 00:00:00 2024-05-14 08:12:55 Transition of Care Vamsi Ordonez 1.2.840.1 71264.1.1 3.104.2.7 .3.579198 .8 [id number] [facility] 2024-05-13 00:00:00 2024-05-13 00:00:00 (TEL) [facility] [id number] [facility] 2024-05-13 00:00:00 2024-05-13 00:00:00 Travel 1.2.840.1 [id number] 3.104.2.7 .3.166636 .8 1.2.840.114 350.1.13.10 4.2.7.3.698 [id number] [facility] 2024-05-06 17:42:00 2024-05-12 14:05:00 Inpatient X JONY RAM [facility] [id number] [facility] 2024-05-06 17:42:00 2024-05-12 14:05:00 Hospital Encounter Tomas Uribe Jelani Morris, David 1.2.840.1 [id number] 3.104.2.7 .3.998488 .8 [id number] [facility] 2024-05-09 07:53:00 2024-05-09 10:57:00 Anesthesia Event Jony Vaughan Brian 1.2.840.1 63517.1.1 3.104.2.7 .3.935503 .8 [id number] [facility] 2024-05-09 07:10:00 2024-05-09 10:05:00 Surgery Asad Morgan 1.2.840.1 03389.1.1 3.104.2.7 .3.879519 .8 [id number] [facility] 2024-05-06 00:00:00 2024-05-06 00:00:00 Travel 1.2.840.1 [id number] 3.104.2.7 .3.373448 .8 1.2.840.114 350.1.13.10 4.2.7.3.698 [id number] [facility] 2024-04-10 13:00:00 2024-04-10 13:19:04 Outpatient R ISMAEL HUNTER [facility] [id number] [facility] 2024-04-10 13:00:00 2024-04-10 13:19:04 Office Visit Ismael Hunter 1.2.840.1 05308.1.1 3.104.2.7 .3.026420 .8 [id number] [facility] 2024-04-10 00:00:00 2024-04-10 00:00:00 Travel 1.2.840.1 81888.1.1 3.104.2.7 .3.377415 .8 1.2.840.114 350.1.13.10 4.2.7.3.698 [id number] [facility] 2024-03-26 00:00:00 2024-03-26 13:55:46 Mayur Albright 1.2.840.1 47390.1.1 3.104.2.7 .3.021659 .8 [id number] [facility] 2024-03-21 00:00:00 2024-03-24 13:33:49 Refill Mayur Silva 1.2.840.1 85182.1.1 3.104.2.7 .3.122443 .8 [id number] [facility] 2024-03-15 00:00:00 2024-03-21 06:00:01 Refill Mayur Silva 1.2.840.1 29395.1.1 3.104.2.7 .3.362192 .8 [id number] [facility] 2024-02-18 13:51:00 2024-02-18 16:40:00 Emergency X JAKI DOWNS SANDRA [facility] ERT [id number] [facility] 2024-02-18 13:51:00 2024-02-18 16:40:00 Emergency Jaki Downs 1.2.840.1 24700.1.1 3.104.2.7 .3.265468 .8 [id number] [facility] 2024-02-15 00:00:00 2024-02-15 00:00:00 OFFICE VISIT ESTAB PT LEVEL [address] [facility] [facility] [id number] [facility] 2024-02-08 11:20:00 2024-02-08 11:20:00 Outpatient R [facility] [id number] [facility] 2024-01-30 15:54:00 2024-01-30 20:49:00 Emergency X MOIRA CRUZ ERIN [facility] ERT [id number] [facility] 2024-01-30 15:54:00 2024-01-30 20:49:00 Emergency Jaki Downs Erin Laura [facility] 1.840.114 350.1.13.10 4.2.7.2.686 [id number] [facility] 2024-01-22 00:00:00 2024-01-22 00:00:00 (TEL) [facility] [id number] [facility] 2024-01-19 00:00:00 2024-01-21 14:13:43 Refill Mayur [facility] 1.0.114 350.1.13.10 4.2.7.2.686 [id number] [facility] 2023-12-16 00:00:00 2023-12-17 09:40:23 Refill Mayur [facility] 1.0.114 350.1.13.10 4.2.7.2.686 [id number] [facility] 2023-12-13 08:15:00 2023-12-13 08:20:21 Outpatient R MARK TEJADA NAVEED [facility] [id number] [facility] 2023-12-13 08:15:00 2023-12-13 08:20:21 [employer] 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 Visit 2, [facility] Mark Tejada 2, Adc Lab [facility] 1.0.114 350.1.13.10 4.2.7.2.686 [id number] [facility] 2023-11-12 00:00:00 2023-11-19 09:20:44 Telephone Mayur Silva [facility] 1.840.114 350.1.13.10 4.2.7.2.686 [id number] [facility] 2023-11-14 00:00:00 2023-11-14 00:00:00 OFFICE VISIT ESTAB PT LEVEL 4 [facility]LMLC [facility] [id number] [facility] 2023-11-12 16:30:00 2023-11-12 16:30:00 Outpatient R MAYUR SILVA [facility] [id number] [facility] 2023-11-08 00:00:00 2023-11-08 13:11:08 Telephone Mayur Silva [facility] 1.2.840.114 350.1.13.10 4.2.7.2.686 [id number] [facility] 2023-11-08 00:00:00 2023-11-08 11:46:03 Telephone Mayur Silva [facility] 1.2.840.114 350.1.13.10 4.2.7.2.686 [id number] [facility] 2023-11-06 09:00:00 2023-11-06 09:02:58 Outpatient R MAYUR SILVA [facility] [id number] [facility] 2023-11-06 09:00:00 2023-11-06 09:02:58 Dowel 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 Visit 2, Adc Lab Mayur Silva [facility] 1.2.840.114 350.1.13.10 4.2.7.2.686 [id number] [facility] 2023-10-22 00:00:00 2023-10-22 14:10:59 Telephone Mayur Silva [facility] 1.2840.114 350.1.13.10 4.2.7.2.686 [id number] [facility] 2023-10-19 09:15:00 2023-10-19 09:30:00 Dowel 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 Visit 2, Adc Lab Anwar, Mark [facility] 1.2.840.114 350.1.13.10 4.2.7.2.686 [id number] [facility] 2023-10-19 09:15:00 2023-10-19 09:15:04 Outpatient R MARK TEJADA NAVEED [facility] [id number] [facility] 2023-10-18 09:15:00 2023-10-18 09:15:00 Outpatient R [facility] [id number] [facility] 2023-10-17 15:00:00 2023-10-17 15:00:00 Outpatient R [facility] [id number] [facility] 2023-09-10 00:00:00 2023-09-11 11:36:33 Transition of Care Vamsi Ordonez [place] 1..840.114 350.1.13.10 4.2.7.2.686 [id number] [facility] 2023-09-08 05:23:00 2023-09-08 12:21:00 Outpatient JONY SALINAS [facility] [id number] [facility] 2023-09-08 05:23:00 2023-09-08 12:21:00 Hospital Encounter Tien Gross David [facility] 1..840.114 350.1.13.10 4.2.7.2.686 [id number] [facility] 2023-08-15 00:00:00 2023-08-15 00:00:00 OFFICE VISIT ESTAB PT LEVEL 4 STLMLC STLC [id number] [facility] 2023-07-17 00:00:00 2023-07-17 00:00:00 OFFICE VISIT ESTAB PT LEVEL 4 STLMLC STLMLC [id number] [facility] 2023-07-17 00:00:00 2023-07-17 00:00:00 SUB ANNUAL [facility] WELLNESS VISIT STLMLC STLMLC [id number] [facility] 2023-07-16 13:00:00 2023-07-16 13:00:00 Outpatient R MAYUR SILVA [facility] [id number] [facility] 2023-07-06 10:00:00 2023-07-06 10:00:00 Outpatient R [facility] [id number] [facility] 2023-06-18 00:00:00 2023-06-18 00:00:00 Telephone Mayur Silva [facility] .840.114 350.1.13.10 4.2.7.2.686 [id number] [facility] 2023-06-15 10:00:00 2023-06-15 10:00:00 Outpatient R [facility] [id number] [facility] 2023-06-08 10:00:00 2023-06-08 10:00:00 Outpatient R [facility] [id number] [facility] 2023-05-11 08:00:00 2023-05-11 08:00:00 Outpatient R [facility] [id number] [facility] 2023-05-10 00:00:00 2023-05-10 00:00:00 (TEL) [facility] [id number] [facility] 2023-05-04 10:00:00 2023-05-04 13:52:06 Outpatient R MARK TEJADA NAVEED [facility] [id number] [facility] 2023-05-04 10:00:00 2023-05-04 10:15:00 Nurse Visit Nurse, Mark Dong [facility] 1..840.114 350.1.13.10 4.2.7.2.686 [id number] [facility] 2023-05-04 00:00:00 2023-05-04 00:00:00 Orders Only Doctor Unassigned, Morganza [facility] 1.2.840.114 350.1.13.10 4.2.7.2.686 [id number] [facility] 2023-05-04 00:00:00 2023-05-04 00:00:00 Telephone krish [facility] 1.2.840.114 350.1.13.10 4.2.7.2.686 [id number] [facility] 2023-05-03 13:00:00 2023-05-03 13:00:00 Outpatient R [facility] [id number] [facility] 2023-05-03 10:45:00 2023-05-03 11:40:36 Dowel 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 Visit 2, Adc Lab [facility] 1.2.840.114 350.1.13.10 4.2.7.2.686 [id number] [facility] 2023-05-03 10:00:00 2023-05-03 10:15:00 Nurse Visit Nurse, [facility] Pob Amb Infusion [facility] 1.2.840.114 350.1.13.10 4.2.7.2.686 [id number] [facility] 2023-05-03 10:00:00 2023-05-03 10:00:00 Outpatient R MARK HARKINS [facility] [id number] [facility] 2023-05-03 00:00:00 2023-05-03 00:00:00 Telephone [facility] 1.2.840.114 350.1.13.10 4.2.7.2.686 [id number] [facility] 2023-04-13 00:00:00 2023-04-13 00:00:00 Telephone Augustinedward Gonzalez Mayur Isaac [facility] BU[facility] 1.20.114 350.1.13.10 4.2.7.2.686 [id number] [facility] 2023-04-06 14:30:00 2023-04-06 14:45:00 Dowel 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 Visit Pob, Adc Lab Main LindahopeFloyd Lisa Mayur Isaac [facility] BUILD[facility] 1.0.114 350.1.13.10 4.2.7.2.686 [id number] [facility] 2023-04-06 14:30:00 2023-04-06 14:30:00 Outpatient R MAYUR SILVA [facility] [id number] [facility] 2023-04-02 06:28:00 2023-04-02 11:51:00 Outpatient R LINDAANA LISA [facility] [id number] [facility] 2023-04-02 10:00:00 2023-04-02 11:00:00 Surgery Khanh lashonda Vedajuan manuel [facility] 1.840.114 350.1.13.10 4.2.7.2.686 [id number] [facility] 2023-04-02 00:00:00 2023-04-02 00:00:00 Refill Andrea Cabrera [facility] BUILD[facility] 1.2840.114 350.1.13.10 4.2.7.2.686 [id number] [facility] 2023-04-02 00:00:00 2023-04-02 00:00:00 Orders Only Doctor Unassigned, Morganza [facility] 1.2840.114 350.1.13.10 4.2.7.2.686 [id number] [facility] 2023-03-29 14:30:00 2023-03-29 16:00:00 Dowel 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 Visit Testing, [facility] Pulmonary Function StandeferDilia [facility] 1.2840.114 350.1.13.10 4.2.7.2.686 [id number] [facility] 2023-03-29 14:30:00 2023-03-29 14:30:00 Outpatient R LALITHADILIA VAZQUEZ [facility] [id number] [facility] 2023-03-29 13:00:00 2023-03-29 14:10:49 Dowel 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 Visit Testing, [facility] Pulmonary Function StandDilia vazquez [facility] 1.0.114 350.1.13.10 4.2.7.2.686 [id number] [facility] 2023-03-23 00:00:00 2023-03-23 00:00:00 Telephone Mayur Silva [facility] 1..114 350.1.13.10 4.2.7.2.686 [id number] [facility] 2023-03-19 14:30:00 2023-03-19 14:30:00 Outpatient R MAYUR SILVA [facility] [id number] [facility] 2023-03-16 00:00:00 2023-03-16 00:00:00 Telephone Mayur Silva [facility] 1..114 350.1.13.10 4.2.7.2.686 [id number] [facility] 2023-03-14 07:45:00 2023-03-14 08:00:00 Dowel 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 Visit Pob, Adc Lab Main Mayur Silva [facility] 1..840.114 350.1.13.10 4.2.7.2.686 [id number] [facility] 2023-03-14 07:45:00 2023-03-14 07:45:00 Outpatient MAYUR GERARD [facility] [id number] [facility] 2023-03-14 00:00:00 2023-03-14 00:00:00 Case Management Dilia Turner [facility] .840.114 350.1.13.10 4.2.7.2.686 [id number] [facility] 2023-02-27 00:00:00 2023-02-27 00:00:00 (TEL) STLMLC STLMLC [id number] [facility] 2023-02-14 00:00:00 2023-02-14 00:00:00 (TEL) STLMLC STLMLC [id number] [facility] 2023-02-13 00:00:00 2023-02-13 00:00:00 OFFICE VISIT ESTAB PT LEVEL 4 STLMLC STLMLC [id number] [facility] 2023-01-23 00:00:00 2023-01-23 00:00:00 (HOSP F/U) Hospital Follow Up STLMLC STLMLC [id number] [facility] 2023-01-22 16:30:00 2023-01-22 16:57:24 Outpatient R MAYUR SILVA [facility] [id number] [facility] 2023-01-22 16:30:00 2023-01-22 16:57:24 Office Visit Mayur Silva [facility] 1..840.114 350.1.13.10 4.2.7.2.686 [id number] [facility] 2023-01-18 00:00:00 2023-01-18 00:00:00 Transition of Care Yvonne Lilly 1..840.114 350.1.13.10 4.2.7.2.686 [id number] [facility] 2023-01-15 12:30:00 2023-01-17 13:20:00 Inpatient X JONY RAM [facility] [id number] [facility] 2023-01-15 12:30:00 2023-01-17 13:20:00 Hospital Encounter Tien Gross [facility] 1..840.114 350.1.13.10 4.2.7.2.686 [id number] [facility] 2023-01-15 00:00:00 2023-01-15 00:00:00 [facility]EL[facility] [id number] [facility] 2023-01-11 10:40:00 2023-01-11 11:12:49 [facility] [id number] [facility] 2023-01-11 10:40:00 2023-01-11 11:12:49 Office Visit Sarika [facility] BUILDING 1..840.114 350.1.13.10 4.2.7.2.686 [id number] [facility] 2023-01-09 15:00:00 2023-01-09 15:00:00 Outpatient R SARIKA [facility] [id number] [facility] 2022-12-29 00:00:00 2022-12-29 00:00:00 (TEL) [facility] [id number] [facility] 2022-11-24 00:00:00 2022-11-24 00:00:00 [facility] 1..840.114 350.1.13.10 4.2.7.2.686 [id number] [facility] 2022-11-13 00:00:00 2022-11-13 00:00:00 OFFICE VISIT ESTAB PT LEVEL 4 STLMLC STLMLC [id number] [facility] 2022-09-01 00:00:00 2022-09-01 00:00:00 OFFICE VISIT ESTAB PT LEVEL 4 STLMLC STLMLC [id number] [facility] 2022-08-10 13:00:00 2022-08-10 13:00:00 [facility] [id number] [facility] 2022-08-03 11:00:00 2022-08-03 12:52:13 Outpatient R MARK TEJADA [facility] [id number] [facility] 2022-08-03 11:00:00 2022-08-03 11:15:00 Dowel 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 Visit Pob, Adc Lab [facility] 1..840.114 350.1.13.10 4.2.7.2.686 [id number] [facility] 2022-08-03 00:00:00 2022-08-03 00:00:00 Orders Only Doctor Unassigned, Morganza [facility] 1.840.114 350.1.13.10 4.2.7.2.686 [id number] [facility] 2022-08-03 00:00:00 2022-08-03 00:00:00 Telephone Andrea Cabrera [facility] BU[facility] 1..840.114 350.1.13.10 4.2.7.2.686 [id number] [facility] 2022-08-01 00:00:00 2022-08-01 00:00:00 OFFICE VISIT ESTAB PT LEVEL 4 STLMLC STLMLC [id number] [facility] 2022-07-30 00:00:00 2022-07-30 00:00:00 (TEL) STLMLC STLMLC [id number] [facility] 2022-07-11 14:01:00 2022-07-11 16:29:00 Emergency X Benjamin KIMBROUGH [facility] ERT [id number] [facility] 2022-07-11 14:01:00 2022-07-11 16:29:00 Emergency Benjamin Kimbrough Radha [facility] 1.2.840.114 350.1.13.10 4.2.7.2.686 [id number] [facility] 2022-07-11 00:00:00 2022-07-11 00:00:00 [facility] [id number] 2022-07-10 10:40:00 2022-07-10 10:40:00 Outpatient R ANDREA CABRERA [facility] [id number] [facility] 2022-07-03 00:00:00 2022-07-03 00:00:00 [facility] 1.2.840.114 350.1.13.10 4.2.7.2.686 [id number] [facility] 2022-07-03 00:00:00 2022-07-03 00:00:00 [facility] 1.2.840.114 350.1.13.10 4.2.7.2.686 [id number] [facility] 2022-06-14 00:00:00 2022-06-14 00:00:00 SUB ANNUAL [facility] ST[facility] [id number] [facility] 2022-06-14 00:00:00 2022-06-14 00:00:00 OFFICE VISIT ESTAB PT LEVEL 4 STLMLC STLC [id number] [facility] 2022-06-12 15:00:00 2022-06-12 15:19:49 [facility] [id number] [facility] 2022-06-12 15:00:00 2022-06-12 15:19:49 Office Visit Sarika [place] [address].2.840.114 350.1.13.10 4.2.7.2.686 [id number] [facility] 2022-06-08 09:00:00 2022-06-08 09:00:00 Outpatient [facility] [id number] [facility] 2022-06-01 09:45:00 2022-06-01 10:00:00 Dowel 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 Visit Pob, Adc Lab [place] [address].2.840.114 350.1.13.10 4.2.7.2.686 [id number] [facility] 2022-06-01 09:45:00 2022-06-01 09:45:00 Out[facility] [id number] [facility] 2022-06-01 00:00:00 2022-06-01 00:00:00 (TEL) STLC STLC [id number] [facility] 2022-05-31 16:20:00 2022-05-31 16:20:00 Outpatient R REBECCA DOWNS [facility] [id number] [facility] 2022-05-26 00:00:00 2022-05-26 00:00:00 (TEL) STLC STLMLC [id number] [facility] 2022-05-24 00:00:00 2022-05-24 00:00:00 Transition of Care Vamsi Ordonez 1.2.840.114 350.1.13.10 4.2.7.2.686 [id number] [facility] 2022-05-19 10:08:00 2022-05-23 14:35:00 Hospital Encounter KaylanBenjamin winters Pb [facility] 1.2.840.114 350.1.13.10 4.2.7.2.686 [id number] [facility] 2022-05-19 00:00:00 2022-05-19 00:00:00 Telephone Sarika [facility] BUILDING 1.2.840.114 350.1.13.10 4.2.7.2.686 [id number] [facility] 2022-05-19 00:00:00 2022-05-19 00:00:00 Telephone Sarika [facility] BUILDING 1.2.840.114 350.1.13.10 4.2.7.2.686 [id number] [facility] 2022-05-18 11:15:00 2022-05-18 11:30:00 Dowel 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 Visit 2, Adc Lab [facility] 1.2.840.114 350.1.13.10 4.2.7.2.686 [id number] [facility] 2022-05-18 10:40:00 2022-05-18 11:02:28 [facility] [id number] [facility] 2022-05-18 10:40:00 2022-05-18 11:02:28 Office Visit Sarika [facility] NAL BUILDING 1.2.840.114 350.1.13.10 4.2.7.2.686 [id number] [facility] 2022-05-18 10:40:00 2022-05-18 11:02:28 [facility] [id number] [facility] 2022-05-10 13:00:00 2022-05-10 13:00:00 Outpatient R REEBCCA DOWNS [facility] [id number] [facility] 2022-05-09 09:20:00 2022-05-09 10:11:04 Outpatient R [facility] [id number] [facility] 2022-05-09 09:20:00 2022-05-09 10:11:04 Office Visit Sarika [facility] 1.2.840.114 350.1.13.10 4.2.7.2.686 [id number] [facility] 2022-05-09 00:00:00 2022-05-09 00:00:00 Orders Only Doctor Unassigned, Morganza [facility] 1..840.114 350.1.13.10 4.2.7.2.686 [id number] [facility] 2022-05-03 00:00:00 2022-05-03 00:00:00 (TEL) [facility] [id number] [facility] 2022-05-03 00:00:00 2022-05-03 00:00:00 OFFICE VISIT ESTAB PT LEVEL 4 [facility] [id number] [facility] 2022-05-03 00:00:00 2022-05-03 00:00:00 Telephone Sarika [facility] 1.2.840.114 350.1.13.10 4.2.7.2.686 [id number] [facility] 2022-04-24 00:00:00 2022-04-24 00:00:00 Refill Sarika, Q[facility]jun [facility] 1.2.840.114 350.1.13.10 4.2.7.2.686 [id number] [facility] 2022-04-06 00:00:00 2022-04-06 00:00:00 (TEL) STLC STLC [id number] [facility] 2022-03-30 00:00:00 2022-03-30 00:00:00 OFFICE VISIT ESTAB [facility] [id number] [facility] 2022-03-08 00:00:00 2022-03-08 00:00:00 Orders Only Doctor Unassigned, Morganza [facility] 1.2.840.114 350.1.13.10 4.2.7.2.686 [id number] [facility] 2022-03-01 00:00:00 2022-03-01 00:00:00 Telephone Brenda Dodd [facility] 1..840.114 350.1.13.10 4.2.7.2.686 [id number] [facility] 2022-02-16 15:20:00 2022-02-16 15:20:00 Outpatient [facility] [id number] [facility] 2022-01-26 00:00:00 2022-01-26 00:00:00 (TEL) [facility] [id number] [facility] 2022-01-18 00:00:00 2022-01-18 00:00:00 Orders Only Doctor Unassigned, Morganza [facility] 1.2840.114 350.1.13.10 4.2.7.2.686 [id number] [facility] 2022-01-17 15:40:00 2022-01-17 15:40:00 Outpatient R SARIKA, [facility] [id number] [facility] 2022-01-10 00:00:00 2022-01-10 00:00:00 [facility]TEL[facility] [id number] [facility] 2022-01-04 15:20:00 2022-01-04 15:20:00 Outpatient Jacinta [facility] [id number] [facility] 2022-01-04 00:00:00 2022-01-04 00:00:00 Orders Only Doctor Unassigned, Morganza [facility] 1.840.114 350.1.13.10 4.2.7.2.686 [id number] [facility] 2021-11-29 09:20:00 2021-11-29 09:20:00 Outpatient Jacinta [facility] [id number] [facility] 2021-11-28 09:00:00 2021-11-28 09:00:00 Outpatient Jacinta [facility] [id number] [facility] 2021-11-16 00:00:00 2021-11-16 00:00:00 OFFICE VISIT ESTAB PT LEVEL [address] [facility] [id number] [facility] 2021-11-11 00:00:00 2021-11-11 00:00:00 Orders Only Doctor Unassigned, Morganza [facility] 1.840.114 350.1.13.10 4.2.7.2.686 [id number] [facility] 2021-10-03 00:00:00 2021-10-03 23:59:00 Outpatient NNAMDI MAX [facility] [id number] [facility] 2021-10-03 00:00:00 2021-10-03 23:59:00 Hospital Encounter Nnamdi Polanco [facility] 1.840.114 350.1.13.10 4.2.7.2.686 [id number] [facility] 2021-09-06 00:00:00 2021-09-06 00:00:00 (TEL) STLMLC STLMLC [id number] [facility] 2021-08-29 00:00:00 2021-08-29 00:00:00 (TEL) STLMLC STLMLC [id number] [facility] 2021-08-22 15:00:00 2021-08-22 15:00:00 Outpatient ANDREA TURNER [facility] [id number] [facility] 2021-08-17 00:00:00 2021-08-17 00:00:00 OFFICE VISIT ESTAB PT LEVEL 4 STLMLC STLMLC [id number] [facility] 2021-07-19 00:00:00 2021-07-19 00:00:00 Orders Only Doctor Unassigned, Morganza [facility] 1.2.840.114 350.1.13.10 4.2.7.2.686 [id number] [facility] 2021-07-18 00:00:00 2021-07-18 00:00:00 OFFICE VISIT ESTAB PT LEVEL 4 STLMLC STLMLC [id number] [facility] 2021-07-11 00:00:00 2021-07-11 00:00:00 (TEL) STLMLC STLMLC [id number] [facility] 2021-06-30 00:00:00 2021-06-30 00:00:00 (TEL) STLMLC STLMLC [id number] [facility] 2021-06-09 00:00:00 2021-06-09 00:00:00 Outpatient ANDREA TURNER [facility] [id number] [facility] 2021-06-09 00:00:00 2021-06-09 00:00:00 [facility] [id number] [facility] 2021-06-01 10:20:00 2021-06-01 10:40:00 Office Visit Brenda Dodd [facility] 1.2.840.114 350.1.13.10 4.2.7.2.686 [id number] [facility] 2021-06-01 10:20:00 2021-06-01 10:20:00 Outpatient R BRENDA DODD STRAHIL [facility] [id number] [facility] 2021-06-01 00:00:00 2021-06-01 00:00:00 Orders Only Doctor Unassigned, [place] [facility] 1..840.114 350.1.13.10 4.2.7.2.686 [id number] [facility] 2021-05-25 00:00:00 2021-05-25 00:00:00 [facility]TEL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 1, [facility] Sleep Lab Bed Brenda Dodd [facility] 1.2.840.114 350.1.13.10 4.2.7.2.686 [id number] [facility] 2021-05-10 19:30:00 2021-05-10 19:30:00 Outpatient R BRENDA DODD [facility]AH[facility] [id number] [facility] 2021-05-10 19:30:00 2021-05-10 19:30:00 Outpatient R BRENDA DODD [facility] [id number] [facility] 2021-05-10 00:00:00 2021-05-10 00:00:00 [facility]ISIT [id number] 2021-05-10 00:00:00 2021-05-10 00:00:00 [facility]TEL[facility] [id number] [facility] 2021-05-10 00:00:00 2021-05-10 00:00:00 SUB ANNUAL [facility] WELLNESS VISIT [facility] [id number] [facility] 2021-05-07 09:30:00 2021-05-07 09:45:00 Laboratory Only Only, Adc Test Prasanth Meyers [facility] 1.2.840.114 350.1.13.10 4.2.7.2.686 [id number] [facility] 2021-05-07 09:30:00 2021-05-07 09:30:00 Outpatient R PRASANTH MEYERS [facility] [id number] [facility] 2021-05-07 00:00:00 2021-05-07 00:00:00 Orders Only Doctor Unassigned, [place] [facility] 1.2.840.114 350.1.13.10 4.2.7.2.686 [id number] [facility] 2021-05-06 09:00:00 2021-05-06 09:00:00 Outpatient R [facility] [id number] [facility] 2021-04-02 00:00:00 2021-04-02 00:00:00 Orders Only Doctor Unassigned, [place] [facility] 1.2.840.114 350.1.13.10 4.2.7.2.686 [id number] [facility] 2021-03-30 10:32:58 2021-03-30 10:48:14 Office Visit Brenda Dodd [facility] 1..840.114 350.1.13.10 4.2.7.2.686 [id number] [facility] 2021-03-30 10:40:00 2021-03-30 10:40:00 Outpatient R BRENDA DODD [facility] [id number] [facility] 2021-03-22 12:51:51 2021-03-22 13:06:51 [employer] 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 Visit [facility] Sleep Lab Brenda Dodd [facility] 1..840.114 350.1.13.10 4.2.7.2.686 [id number] [facility] 2021-03-22 13:00:00 2021-03-22 13:00:00 Outpatient R BRENDA DODD STRAPRSole [facility] [id number] [facility] 2021-03-21 08:15:40 2021-03-21 08:30:40 Laboratory Only Only, Adc Test Brenda Dodd [facility] 1.2.840.114 350.1.13.10 4.2.7.2.686 [id number] [facility] 2021-03-21 08:30:00 2021-03-21 08:30:00 Outpatient R BRENDA DODD STRAHIL [facility] [id number] [facility] 2021-03-21 00:00:00 2021-03-21 00:00:00 Orders Only Doctor Unassigned, [place] [facility] 1.2.840.114 350.1.13.10 4.2.7.2.686 [id number] [id number] [facility] 2021-03-14 00:00:00 2021-03-14 00:00:00 Transition of Care Yvonne Lilly 1.2.840.114 350.1.13.10 4.2.7.2.686 [id number] [facility] 2021-03-14 00:00:00 2021-03-14 00:00:00 Telephone Sarika [facility] 1.2.840.114 350.1.13.10 4.2.7.2.686 [id number] [facility] 2021-03-09 05:49:00 2021-03-11 12:45:00 Hospital Encounter Tien Gross Yaman [facility] 1.2.840.114 350.1.13.10 4.2.7.2.686 [id number] [facility] 2021-03-11 00:00:00 2021-03-11 00:00:00 Telephone Nir Verdu[facility] 1.20.114 350.1.13.10 4.2.7.2.686 [id number] [facility] 2021-03-07 09:00:00 2021-03-07 23:59:00 Outpatient R SARIKA [facility] [id number] [facility] 2021-03-07 09:00:00 2021-03-07 23:59:00 [facility] [id number] [facility] 2021-03-07 08:59:21 2021-03-07 23:59:00 [facility] 1.2840.114 350.1.13.10 4.2.7.2.686 [id number] [facility] 2021-03-07 09:00:00 2021-03-07 09:00:00 [facility] [id number] [facility] 2021-03-01 09:00:00 2021-03-01 09:30:40 [facility] R [facility]IKA[facility] [id number] [facility] 2021-03-01 09:00:00 2021-03-01 09:30:40 Outpatient R SARIKA, [facility] [id number] [facility] 2021-03-01 09:00:00 2021-03-01 09:30:40 Outpatient R SARIKA, [facility] [id number] [facility] 2021-03-01 09:00:00 2021-03-01 09:30:40 Office Visit Sarika, [facility] BUILDING 1.2.840.114 350.1.13.10 4.2.7.2.686 [id number] [id number] [facility] 2021-03-01 09:00:00 2021-03-01 09:30:40 Office Visit Sarika, [facility] BUILDING 1.2840.114 350.1.13.10 4.2.7.2.686 [id number] [id number] [facility] 2021-03-01 09:00:00 2021-03-01 09:30:40 Outpatient R SARIKA, [facility] [id number] [facility] 2021-03-01 08:55:17 2021-03-01 09:30:40 Office Visit Sarika, [facility] BUILDING 1.2840.114 350.1.13.10 4.2.7.2.686 [id number] [id number] [facility] 2021-03-01 00:00:00 2021-03-01 00:00:00 Orders Only Doctor Unassigned, Morganza [facility] 1.2840.114 350.1.13.10 4.2.7.2.686 [id number] [facility] 2020-10-25 00:00:00 2020-10-25 23:59:00 Hospital Encounter Nnamdi Polanco [facility] 1.2.840.114 350.1.13.10 4.2.7.2.686 [id number] [facility] 2020-10-25 00:00:00 2020-10-25 00:00:00 Outpatient NNAMDI POLANCO [facility] [id number] [facility] 2020-07-26 00:00:00 2020-07-26 00:00:00 Outpatient NNAMDI POLANCO [facility] [id number] [facility] 2020-04-26 10:15:00 2020-04-26 23:59:00 Hospital Encounter Lawrence Bone Remote Device Check At Home - [facility] 1.2.840.114 350.1.13.10 4.2.7.2.686 [id number] [facility] 2020-04-26 10:15:00 2020-04-26 23:59:00 [facility] 1.2.840.114 350.1.13.10 4.2.7.2.686 [id number] 2020-04-26 10:15:00 2020-04-26 10:15:00 Outpatient R SEBASTIAN SCHERER LAWRENCE [facility] [id number] [facility] 2020-01-19 11:45:00 2020-01-19 23:59:00 Hospital Encounter Taniyarossi Nnamdi Marnie, Remote Device Check At Home - [facility] 1.2.840.114 350.1.13.10 4.2.7.2.686 [id number] [facility] 2020-01-19 11:45:00 2020-01-19 23:59:00 Hospital Encounter Kathy Nnamdi [facility] 1.2.840.114 350.1.13.10 4.2.7.2.686 [id number] 2020-01-19 11:45:00 2020-01-19 11:45:00 Outpatient NNAMDI MAX [facility] [id number] [facility] 2020-01-13 00:00:00 2020-01-13 00:00:00 Telephone Oriana Albrecht [facility] Building 1.2.840.114 350.1.13.10 4.2.7.2.686 [id number] [facility] 2020-01-13 00:00:00 2020-01-13 00:00:00 Telephone Oriana Albrecht [facility] 1.2.840.114 350.1.13.10 4.2.7.2.686 [id number] 2020-01-09 00:00:00 2020-01-09 00:00:00 Telephone AlbrechtOriana vora [facility] 1.2.840.114 350.1.13.10 4.2.7.2.686 [id number] [facility] 2020-01-09 00:00:00 2020-01-09 00:00:00 Orders Only Doctor Unassigned, Morganza [facility] 1.2840.114 350.1.13.10 4.2.7.2.686 [id number] [id number] [facility] 2020-01-09 00:00:00 2020-01-09 00:00:00 Telephone AlbrechtOriana vora Sravan [facility] 1.2.840.114 350.1.13.10 4.2.7.2.686 [id number] 2020-01-09 00:00:00 2020-01-09 00:00:00 Orders Only Doctor Unassigned, Morganza [facility] 1.2.840.114 350.1.13.10 4.2.7.2.686 [id number] [id number] 2019-11-18 00:00:00 2019-11-18 00:00:00 Refill AlbrechtJose oroscoreanna Hinson [facility] Building 1.2.840.114 350.1.13.10 4.2.7.2.686 [id number] [facility] 2019-11-18 00:00:00 2019-11-18 00:00:00 Refill AlbrechtPricilaOriana A [facility] 1.2840.114 350.1.13.10 4.2.7.2.686 [id number] 2019-10-21 13:30:00 2019-10-21 13:30:00 Outpatient R [facility] [id number] [facility] 2019-06-30 00:00:00 2019-06-30 00:00:00 Orders Only Doctor Unassigned, Morganza [facility] 1.2840.114 350.1.13.10 4.2.7.2.686 [id number] [id number] [facility] 2019-06-30 00:00:00 2019-06-30 00:00:00 Orders Only Doctor Unassigned, Morganza [facility] 1.2.840.114 350.1.13.10 4.2.7.2.686 [id number] [id number] 2019 00:00:00 2019 00:00:00 Telephone Oriana Albrecht [facility] 1.2840.114 350.1.13.10 4.2.7.2.686 [id number] 2019 00:00:00 2019 00:00:00 Telephone Oriana Albrecht [facility] 1.2840.114 350.1.13.10 4.2.7.2.686 [id number] [facility] 2019-06-12 00:00:00 2019-06-12 00:00:00 Telephone Oriana Albrecht [facility] 1.2.840.114 350.1.13.10 4.2.7.2.686 [id number] [facility] 2019-06-11 00:00:00 2019-06-11 00:00:00 Orders Only Doctor Unassigned, Morganza [facility] 1.2.840.114 350.1.13.10 4.2.7.2.686 [id number] [id number] [facility] 2019-06-11 00:00:00 2019-06-11 00:00:00 Orders Only Doctor Unassigned, Morganza [facility] 1.2.840.114 350.1.13.10 4.2.7.2.686 [id number] [id number] 2019-06-04 00:00:00 2019-06-04 00:00:00 Refill Oriana Albrecht [facility] 1.2.840.114 350.1.13.10 4.2.7.2.686 [id number] [facility] 2019-05-26 00:00:00 2019-05-26 00:00:00 Refill Oriana Albrecht [facility] 1.2.840.114 350.1.13.10 4.2.7.2.686 [id number] [facility] 2019-05-22 00:00:00 2019-05-22 00:00:00 Orders Only Doctor Unassigned, Morganza [facility] 1.2.840.114 350.1.13.10 4.2.7.2.686 [id number] [id number] [facility] 2019-05-22 00:00:00 2019-05-22 00:00:00 Refill Andrea Cabrera [facility] 1.2.840.114 350.1.13.10 4.2.7.2.686 [id number] 059 [id number] [facility] 2019-05-22 00:00:00 2019-05-22 00:00:00 Refill AlbrechtOriana vora Sravan [facility] 1.2.840.114 350.1.13.10 4.2.7.2.686 [id number] [facility] 2019-05-19 00:00:00 2019-05-19 00:00:00 Refill Andrea Cabrera [facility] 1.2.840.114 350.1.13.10 4.2.7.2.686 [id number] [facility] 2019-04-25 14:24:35 2019-05-15 23:34:51 Nurse Visit Visit, Adc Nurse Lucia Craft [facility] Building 1.2.840.114 350.1.13.10 4.2.7.2.686 [id number] [facility] 2019-05-09 00:00:00 2019-05-09 00:00:00 Telephone Oriana Albrecht [facility] 1.2.840.114 350.1.13.10 4.2.7.2.686 [id number] [facility] 2019-04-25 00:00:00 2019-04-25 00:00:00 Orders Only Doctor Unassigned, Morganza [facility] 1.2.840.114 350.1.13.10 4.2.7.2.686 [id number] [id number] [facility] 2019-01-27 00:00:00 2019-01-27 00:00:00 Orders Only Doctor Unassigned, Morganza [facility] 1.2840.114 350.1.13.10 4.2.7.2.686 [id number] [id number] [facility] 2019-01-16 11:09:00 2019-01-16 11:09:00 Outpatient E MHSE CAR 7502 [facility] 2019-01-09 08:39:06 2019-01-09 09:49:30 Laboratory Only Tech, Adc Cardio Fac 1, Adc Cardio Fac Room Lucia Craft [facility] 1.2.840.114 350.1.13.10 4.2.7.2.686 [id number] 059 [id number] [facility] 2019-01-07 00:00:00 2019-01-07 00:00:00 Telephone Oriana Albrecht [facility] 1.2.840.114 350.1.13.10 4.2.7.2.686 [id number] [id number] [facility] 2018-12-20 10:17:50 2018-12-24 14:25:36 Nurse Visit Visit, [facility] Nurse Rachel Cabreralarisa [facility] 1.2.840.114 350.1.13.10 4.2.7.2.686 [id number] 059 [id number] [facility] 2018-12-04 00:00:00 2018-12-04 00:00:00 Telephone Andrea Cabrera [facility] 1.2.840.114 350.1.13.10 4.2.7.2.686 [id number] 059 [id number] [facility] 2018-11-16 00:00:00 2018-11-16 00:00:00 Orders Only Doctor Unassigned, Morganza [facility] 1.2840.114 350.1.13.10 4.2.7.2.686 [id number] [id number] [facility] 2018-11-08 00:00:00 2018-11-08 00:00:00 Telephone Andrea Cabrera [facility] Mireya [facility] 1.2.840.114 350.1.13.10 4.2.7.2.686 [id number] 059 [id number] [facility] Results Test Description Test Time Test Comments Results Result Co mments Source [facility] GLUCOSE (AUTOMATED)2024-06-02 11:04:23* Test Item Value Reference Range Interpretation Comme nts POCT GLU (test code = 6450579727) 125 mg/dL 70-110 H Lab Interpretation (test cod e = 90290-1) Abnormal [facility] GLUCOSE (AUTOMATED)2024-06-02 06:39:49* Test Item Value Reference Range Interpretation Comme nts POCT GLU (test code = 9820614375) 82 mg/dL 70-110 Lab Interpretation (test cod e = 92880-1) Normal [facility] GLUCOSE (AUTOMATED)2024-06-02 02:38:48* Test Item Value Reference Range Interpretation Comme nts POCT GLU (test code = 7388467380) 172 mg/dL 70-110 H Lab Interpretation (test cod e = 63041-4) Abnormal [facility] GLUCOSE (AUTOMATED)2024-06-01 22:24:19* Test Item Value Reference Range Interpretation Comme nts POCT GLU (test code = 9893252604) 172 mg/dL 70-110 H Lab Interpretation (test cod e = 47054-4) Abnormal [facility] GLUCOSE (AUTOMATED)2024-06-01 18:34:16* Test Item Value Reference Range Interpretation Comme nts POCT GLU (test code = 6124483368) 186 mg/dL 70-110 H Lab Interpretation (test cod e = 39881-8) Abnormal [facility] GLUCOSE (AUTOMATED)2024-06-01 14:56:42* Test Item Value Reference Range Interpretation Comme nts POCT GLU (test code = 1493185511) 181 mg/dL 70-110 H Lab Interpretation (test cod e = 39408-1) Abnormal [facility] GLUCOSE (AUTOMATED)2024-06-01 10:25:42* Test Item Value Reference Range Interpretation Comme nts POCT GLU (test code = 0038709976) 106 mg/dL 70-110 Lab Interpretation (test cod e = 88018-0) Normal [facility] GLUCOSE (AUTOMATED)2024-06-01 06:32:11* Test Item Value Reference Range Interpretation Comme nts POCT GLU (test code = 5820620615) 180 mg/dL 70-110 H Lab Interpretation (test cod e = 68041-7) Abnormal [facility] GLUCOSE (AUTOMATED)2024-06-01 01:18:12* Test Item Value Reference Range Interpretation Comme nts POCT GLU (test code = 4487300565) 199 mg/dL 70-110 H Lab Interpretation (test cod e = 93410-3) Abnormal [facility] GLUCOSE (AUTOMATED)2024-05-31 21:44:43* Test Item Value Reference Range Interpretation Comme nts POCT GLU (test code = 4958237462) 184 mg/dL 70-110 H Lab Interpretation (test cod e = 10914-8) Abnormal [facility] GLUCOSE (AUTOMATED)2024-05-31 17:44:12* Test Item Value Reference Range Interpretation Comme nts POCT GLU (test code = 6277102032) 149 mg/dL 70-110 H Lab Interpretation (test cod e = 71769-3) Abnormal [facility]2025-[facility] 12:17:56* Test Item Value Reference Range Interpretation Comme nts MAGNESIUM (test code = 1587049490) 1.4 mg/dL 1.7-2.4 L Lab Interpretation (test cod e = 96158-6) Abnormal [facility]2025-02-08 12:17:56* Test Item Value Reference Range Interpretation Comme nts PHOSPHORUS (test code = 2520492428) 3.0 mg/dL 2.5-5.0 Lab Interpretation (test cod e = 93753-0) Normal [facility] GLUCOSE (AUTOMATED)2024-05-31 09:39:09* Test Item Value Reference Range Interpretation Comme nts POCT GLU (test code = 2580676488) 137 mg/dL 70-110 H Lab Interpretation (test cod e = 08013-5) Abnormal [facility]2024-05-31 07:58:05* Test Item Value Reference Range Interpretation Comme nts POCT GLU (test code = 4934624704) 133 mg/dL 70-110 H Lab Interpretation (test cod e = 44993-9) Abnormal [facility] View - To confirm nasogastric tube placement.2024-05-31 02:34:58EXAM: XR ABDOMEN 1 VW HISTORY: 63 years-old Male; Provided indication: Confirm NGT placement . TECHNIQUE: Frontal view of the abdomen and pelvis COMPAR[facility] wo [id number] 01:59:13CT ABDOMEN PELVIS WO CONTRAST Indication: PO contrast to evaluate for antral/duodenal perforation (10 minafter contrast admin) PO contrast to evaluate for antral/duodenalperforation (10 min after contrast admin) Comparison: Prior day CT Ordering Clinician: MOIRA HUI Technique: Axial CT images of the abdomen and pelvis were performed withoutiv contrast. Oral contrast was administered. Sagittal and coronal reformatswere created. Dose reduction techniques were used (ALARA). Technical Quality: Adequate Discussion: Chest/Vessels: Large left pleural effusion. Moderate right-sided pleuraleffusion. Organs: No acute liver pathology. ?Vicarious excretion of contrast into thegallbladder. Atrophic pancreas. ?No splenic masses. ?The adrenal glands arenormal. : No hydronephrosis. No renal stones. The ureters are normal. ?Thebladder is decompressed. GI: Stomach: Oral contrast is seen within the stomach. Coils are seen along thegastric antrum. Foci of extraluminal gas immediately anterior to thegastric antrum along the region of wall thickening, axial series, image 48.Small bowel: Multiple coils are seen along the second and third segments ofthe duodenum. Foci of extraluminal gas seen along the medial aspect of thefirst/second segment of the duodenum best seen on coronal series, image 36.No extraluminal oral contrast. Few jejunal loops are mildly dilated by sizecriteria measuring up to 3.7 cm, may suggest an aspect of ileus.Large bowel: Normal caliber. Appendix isnot clearly seen. Misc.: Extensive large volume intra-abdominal fluid with a hyperattenuatingappearance,, mean Hounsfield units 30. Skeleton: No acute osseous pathology.[facility]2024-05-30 23:55:36* Test Item Value Reference Range Interpretation Comme nts POCT GLU (test code = 5425982763) 226 mg/dL 70-110 H Lab Interpretation (test cod e = 18226-0) Abnormal [facility]2025-02-07 18:49:31* Test Item Value Reference Range Interpretation Comme nts PHOSPHORUS (test code = 5589989289) 4.0 mg/dL 2.5-5.0 Lab Interpretation (test cod e = 11369-8) Normal [facility]2025-02-07 18:49:31* Test Item Value Reference Range Interpretation Comme nts MAGNESIUM (test code = 9048461932) 2.3 mg/dL 1.7-2.4 Lab Interpretation (test cod e = 67970-5) Normal [facility] (NA, K, CL, CO2, GLUCOSE, BUN, CREATININE, CA)2024-05-30 18:49:31* Test Item Value Reference Range Interpretation Comme nts NA (test code = 3115567262) 135 mmol/L 135-145 K (test code = 0742738509) 3.7 mmol/L 3.5-5.0 CL (test code = 2212397642) 105 mmol/L 98-108 CO2 TOTAL (test code = 6724893748) 23 mmol/L 23-31 AGAP (test code = 6146662502) 7 2-16 BUN (test code = 4355412766) 41 mg/dL 7-23 H GLUCOSE (test code = 8007630758) 199 mg/dL 70-110 H CREATININE (test code = 2160-0) 3.24 mg/dL 0.60-1.25 H CALCIUM (test code = 8919101224) 7.7 mg/dL 8.6-10.6 L eGFR (test code = 04622-8) 20.8 mL/min/1.73m2 CKD-EPI eGFR (2020). Assuming creatinine has been stable day-to-day for at least three months, the eGFR indicates Category G4 (15 - 29 mL/min/1.73 m2) Lab Interpretation (test code = 94467-9) Abnormal [facility] without [id number] 18:09:42* Test Item Value Reference Range Interpretation Comme nts WBC (test code = 6690-2) 12.36 4.20-10.70 H RBC (test code = 789-8) 2.74 4.26-5.52 L HGB (test code = 718-7) 8.3 g/dL 12.2-16.4 L HCT (test code = 4544-3) 24.4 % 38.4-49.3 L MCH (test code = 785-6) 30.3 pg 26.1-32.7 MCV (test code = 787-2) 89.1 fL 81.7-95.6 MCHC (test code = 786-4) 34.0 g/dL 31.2-35.0 PLT (test code = 777-3) 226 150-328 MPV (test code = 14566-5) 10.7 fL 9.8-13.0 RDW-CV (test code = 788-0) 17.9 % 12.1-15.4 H RDW-SD (test code = 49395-4) 52.0 fL 38.5-51.6 H NRBC x10^3 (test code = 8292503352) See_Comment [Automated messa ge] The system which generated this result transmitted reference range: 10*3/?L. The reference range was not used to interpret this result as normal/abnormal. NRBC/100 WBC (test code = 3618111663) 0.0 0.0-10.0 IPF % (test code = 0296958131) Lab Interpretation (test code = 53378-9) Abnormal [facility] GLUCOSE (AUTOMATED)2024-05-30 18:02:36* Test Item Value Reference Range Interpretation Comme nts POCT GLU (test code = 3172920771) 220 mg/dL 70-110 H Lab Interpretation (test cod e = 44087-3) Abnormal [facility] Glucose (Age >30 Days)2024-05-30 18:00:00 * Test Item Value Reference Range Interpretation Comme nts POCT Glu (age>30days) (test code = 3342) 220 mg/dL 70-110 A Lab Interpretation (test cod e = 52499-9) Abnormal [facility] GLUCOSE (AUTOMATED)2024-05-30 13:50:10* Test Item Value Reference Range Interpretation Comme nts POCT GLU (test code = 0954494387) 224 mg/dL 70-110 H Lab Interpretation (test cod e = 38536-8) Abnormal [facility] Glucose (Age >30 Days)2024-05-30 13:49:00 * Test Item Value Reference Range Interpretation Comme nts POCT Glu (age>30days) (test code = 3342) 224 mg/dL 70-110 A Lab Interpretation (test cod e = 20662-1) Abnormal [facility]land[facility]roponin [id number] 10:39:53* Test Item Value Reference Range Interpretation Comme nts TROPONIN I (test code = 9257062401) 0.048 ng/mL <=0.034 H KELLE (test code = KELLE) Reference (Normal) Range (defined by the 99th percentile reference limit): <= 0.034 ng/mL Note: Cardiac troponin begins to rise 3-4 hours after the onset of ischemia. Repeat in 4-6 hours if the sample was drawn within 3-4 hours of the onset of the symptom and found normal. Diagnosis of myocardial injury is made with acute changes in cTn concentrations with at least one serial sample above the 99th percentile upper reference limit (URL), taken together with the patient's clinical presentation. Biotin has been reported to cause a negative bias, interpret results relative to patient's use of biotin. Lab Interpretation (test code = 23856-4) Abnormal [facility]2025-02-07 10:34:14* Test Item Value Reference Range Interpretation Comme nts Fibrinogen (test code = 3011643294) 396 mg/dL 167-453 Lab Interpretation (test cod e = 40646-6) Normal [facility]landActivated Partial Thrmplas [id number] 10:34:14* Test Item Value Reference Range Interpretation Comme nts APTT Patient (test code = 3173-2) 46 26-36 H Lab Interpretation (test cod e = 63074-9) Abnormal [facility]landProthrombin Time / [id number] 10:34:14* Test Item Value Reference Range Interpretation Comme nts PROTIME PATIENT (test code = 5964-2) 15.3 10.1-12.6 H INR (test code = 6301-6) 1.4 Normal INR <1.1; Warfarin Therapeutic range 2.0 to 3.0 or 2.5 to 3.5, depending upon the indications. Lab Interpretation (test code = 33709-8) Abnormal [facility] Metabolic Panel (NA, K, CL, CO2, GLUCOSE, BUN, CREATININE, CA)2024-05-30 10:28:50* Test Item Value Reference Range Interpretation Comme nts NA (test code = 3552699050) 133 mmol/L 135-145 L K (test code = 9487543715) 3.3 mmol/L 3.5-5.0 L CL (test code = 6385425972) 102 mmol/L 98-108 CO2 TOTAL (test code = 0897224646) 23 mmol/L 23-31 AGAP (test code = 8680085634) 8 2-16 BUN (test code = 1183175111) 38 mg/dL 7-23 H GLUCOSE (test code = 0653079599) 217 mg/dL 70-110 H CREATININE (test code = 2160-0) 3.05 mg/dL 0.60-1.25 H CALCIUM (test code = 3284602946) 7.7 mg/dL 8.6-10.6 L eGFR (test code = 23712-6) 22.3 mL/min/1.73m2 CKD-EPI eGFR (2020). Assuming creatinine has been stable day-to-day for at least three months, the eGFR indicates Category G4 (15 - 29 mL/min/1.73 m2) Lab Interpretation (test code = 05448-2) Abnormal [facility]2025-02-07 10:28:50* Test Item Value Reference Range Interpretation Comme nts MAGNESIUM (test code = 9473762387) 1.6 mg/dL 1.7-2.4 L Lab Interpretation (test cod e = 64107-7) Abnormal [facility]2025-02-07 10:28:50* Test Item Value Reference Range Interpretation Comme nts PHOSPHORUS (test code = 5948751686) 3.8 mg/dL 2.5-5.0 Lab Interpretation (test cod e = 09150-3) Normal [facility] with [id number] 10:22:31* Test Item Value Reference Range Interpretation Comme nts WBC (test code = 6690-2) 9.86 4.20-10.70 RBC (test code = 789-8) 2.51 4.26-5.52 L HGB (test code = 718-7) 7.6 g/dL 12.2-16.4 L HCT (test code = 4544-3) 22.4 % 38.4-49.3 L MCV (test code = 787-2) 89.2 fL 81.7-95.6 MCH (test code = 785-6) 30.3 pg 26.1-32.7 MCHC (test code = 786-4) 33.9 g/dL 31.2-35.0 RDW-SD (test code = 74800-3) 50.4 fL 38.5-51.6 RDW-CV (test code = 788-0) 16.7 % 12.1-15.4 H PLT (test code = 777-3) 200 150-328 MPV (test code = 25584-6) 11.0 fL 9.8-13.0 NRBC/100 WBC (test code = 6965356993) 0.2 0.0-10.0 NRBC x10^3 (test code = 3353475629) 0.02 See_Comment [Automated messa ge] The system which generated this result transmitted reference range: 10*3/?L. The reference range was not used to interpret this result as normal/abnormal. GRAN MAT (NEUT) % (test code = 770-8) 86.7 % IMM GRAN % (test code = 0360713490) 0.60 % LYMPH % (test code = 736-9) 3.0 % MONO % (test code = 5905-5) 9.4 % EOS % (test code = 713-8) 0.2 % BASO % (test code = 706-2) 0.1 % GRAN MAT x10^3(ANC) (test code = 1965300396) 8.54 10*3/uL 1.99-6.95 H IMM GRAN x10^3 (test code = 4956736647) 0.06 10*3/uL 0.00-0.06 LYMPH x10^3 (test code = 731-0) 0.30 10*3/uL 1.09-3.23 L MONO x10^3 (test code = 742-7) 0.93 10*3/uL 0.36-1.02 EOS x10^3 (test code = 711-2) 0.06-0.53 L BASO x10^3 (test code = 704-7) 0.01-0.09 Lab Interpretation (test code = 79842-7) [facility]normal [facility] Whole [id number] 07:29:06* Test Item Value Reference Range Interpretation Comme nts LACTIC ACID (test code = 0518693964) 1.68 mmol/L 0.50-2.20 Lab Interpretation (test cod e = 25811-2) Normal [facility] Packed RBC (in units), 2 Units 2024-05-30 07:13:01* Test Item Value Reference Range Interpretation Comme nts Cross Match Result (test code = 4409) Compatible ISBT Blood Type Code (test code = 403192) 5100 Unit Blood Type (test code = 4410) O Pos Unit Number (test code = 4411) [id number] Blood Expiration Date & Time (test code = 008085) 428430138331 Status Information (test code = 4412) Issued Product Identification (test code = 4413) Red Blood Cells Product Code (test code = 4414) [id number] Performed at [facility] B Laboratory Services - [facility] Blood [id number] [place] [id number] Free: [phone] No. [id number] [facility] abdomen/qulntd6002-08-39 06:32:00 Ordering physician: MICHAEL HERRERA Indication: Lower GI bleed COMPARISON: CTA of the abdomen and pelvis dated 05/13/2024 TECHNIQUE: CTA of the abdomen and pelvis performed before and after theadministration of intravenous contrast material. Three-dimensionalreformats were generated following completion of the exam. CT scan wasperformed according to ALARA (as low as reasonably achievable) policy. 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 There is a moderate right and large left pleuraleffusion, with associated atelectasis. The liver, gallbladder, spleen andadrenal glands are within normal limits. There is a new ?hypoattenuatingfocus in the neck of the pancreas, measuring 2.9 cm (series 16, image 62).This communicates with a hypoattenuating and air-containing focus at thehead of the pancreas (series 16, image 69). The kidneys are normal inappearance bilaterally without hydronephrosis. No abdominal aortic aneurysmor dissection is appreci ated. Compared to the previous exam, there is new extraluminal air in theanterior abdomen, predominantly adjacent to the anterior wall of thestomach. There are multiple new embolization coils in the stomach. There issome hyperdense material in the stomach on precontrast imaging. No definiteactive ex travasation is appreciated. There are small to moderate free fluid in the abdomen and pelvis. Thereisno bowel obstruction, widespread diverticulosis or acute diverticulitis. Nointraluminal extravasation of contrast is appreciated. The appendix isidentified and within normal limits. ?Bone windows through the abdomen andpelvis demonstrate no osseous destructive lesion.[facility]landType and Screen - ONCE [id number] 03:26:00* Test Item Value Reference Range Interpretation Comme nts ABO & RH (test code = 20) O POSITIVE IAT (test code = 1185) Negative [facility] GLUCOSE (AUTOMATED)2024-05-19 19:53:58* Test Item Value Reference Range Interpretation Comme nts POCT GLU (test code = 7928904357) 133 mg/dL 70-110 H Lab Interpretation (test cod e = 23625-1) Abnormal [facility] GLUCOSE (AUTOMATED)2024-05-19 14:11:28* Test Item Value Reference Range Interpretation Comme nts POCT GLU (test code = 3963776013) 181 mg/dL 70-110 H Lab Interpretation (test cod e = 36912-1) Abnormal [facility] GLUCOSE (AUTOMATED)2024-05-19 14:11:28* Test Item Value Reference Range Interpretation Comme nts POCT GLU (test code = 6562643044) 181 mg/dL 70-110 H Lab Interpretation (test cod e = 82541-1) Abnormal [facility] GLUCOSE (AUTOMATED)2024-05-19 03:29:53* Test Item Value Reference Range Interpretation Comme nts POCT GLU (test code = 3507218732) 230 mg/dL 70-110 H Lab Interpretation (test cod e = 34857-3) Abnormal [facility] GLUCOSE (AUTOMATED)2024-05-19 03:29:53* Test Item Value Reference Range Interpretation Comme nts POCT GLU (test code = 4113219351) 230 mg/dL 70-110 H Lab Interpretation (test cod e = 93085-1) Abnormal [facility] GLUCOSE (AUTOMATED)2024-05-18 22:08:55* Test Item Value Reference Range Interpretation Comme nts POCT GLU (test code = 4560658391) 247 mg/dL 70-110 H Lab Interpretation (test cod e = 75817-9) Abnormal [facility] GLUCOSE (AUTOMATED)2024-05-18 22:08:55* Test Item Value Reference Range Interpretation Comme nts POCT GLU (test code = 5489918509) 247 mg/dL 70-110 H Lab Interpretation (test cod e = 69428-9) Abnormal [facility] GLUCOSE (AUTOMATED)2024-05-18 17:54:26* Test Item Value Reference Range Interpretation Comme nts POCT GLU (test code = 9127157581) 192 mg/dL 70-110 H Lab Interpretation (test cod e = 96800-6) Abnormal [facility] GLUCOSE (AUTOMATED)2024-05-18 17:54:26* Test Item Value Reference Range Interpretation Comme nts POCT GLU (test code = 1211088190) 192 mg/dL 70-110 H Lab Interpretation (test cod e = 95401-7) Abnormal [facility] GLUCOSE (AUTOMATED)2024-05-18 14:05:28* Test Item Value Reference Range Interpretation Comme nts POCT GLU (test code = 6264297263) 168 mg/dL 70-110 H Lab Interpretation (test cod e = 48877-8) Abnormal [facility] GLUCOSE (AUTOMATED)2024-05-18 14:05:28* Test Item Value Reference Range Interpretation Comme nts POCT GLU (test code = 7659438110) 168 mg/dL 70-110 H Lab Interpretation (test cod e = 97141-2) [facility]2024-05-18 02:18:50* Test Item Value Reference Range Interpretation Comme nts POCT GLU (test code = 8048410864) 237 mg/dL 70-110 H Lab Interpretation (test cod e = 12403-3) [facility]normal [facility]2024-05-18 02:18:50* Test Item Value Reference Range Interpretation Comme nts POCT GLU (test code = 3995813374) 237 mg/dL 70-110 H Lab Interpretation (test cod e = 52609-1) Abnormal [facility] - ONCE [id number] 22:16:00 * Test Item Value Reference Range Interpretation Comme nts ABO & RH (test code = 20) O POSITIVE IAT (test code = 1185) Negative [facility] Screen - ONCE [id number] 22:16:00 * Test Item Value Reference Range Interpretation Comme nts ABO & RH (test code = 20) O POSITIVE IAT (test code = 1185) Negative [facility] GLUCOSE (AUTOMATED)2024-05-17 22:13:49* Test Item Value Reference Range Interpretation Comme nts POCT GLU (test code = 7784915278) 165 mg/dL 70-110 H Lab Interpretation (test cod e = 23740-2) Abnormal [facility] GLUCOSE (AUTOMATED)2024-05-17 22:13:49* Test Item Value Reference Range Interpretation Comme nts POCT GLU (test code = 3355613416) 165 mg/dL 70-110 H Lab Interpretation (test cod e = 44845-7) [facility]normal [facility]2024-05-17 20:02:53* Test Item Value Reference Range Interpretation Comme nts POCT GLU (test code = 1838796522) 146 mg/dL 70-110 H Lab Interpretation (test cod e = 91162-6) Abnormal [facility] GLUCOSE (AUTOMATED)2024-05-17 20:02:53* Test Item Value Reference Range Interpretation Comme nts POCT GLU (test code = 8140444809) 146 mg/dL 70-110 H Lab Interpretation (test cod e = 60616-2) Abnormal [facility] GLUCOSE (AUTOMATED)2024-05-17 17:34:52* Test Item Value Reference Range Interpretation Comme nts POCT GLU (test code = 8475438274) 138 mg/dL 70-110 H Lab Interpretation (test cod e = 10445-2) Abnormal [facility] GLUCOSE (AUTOMATED)2024-05-17 17:34:52* Test Item Value Reference Range Interpretation Comme nts POCT GLU (test code = 4969785442) 138 mg/dL 70-110 H Lab Interpretation (test cod e = 26158-1) Abnormal [facility] without [id number] 14:54:55* Test Item Value Reference Range Interpretation Comme [facility] WBC (test code = 6690-2) 12.56 4.20-10.70 H RBC (test code = 789-8) 2.62 4.26-5.52 L HGB (test code = 718-7) 7.7 g/dL 12.2-16.4 L HCT (test code = 4544-3) 22.9 % 38.4-49.3 L MCH (test code = 785-6) 29.4 pg 26.1-32.7 MCV (test code = 787-2) 87.4 fL 81.7-95.6 MCHC (test code = 786-4) 33.6 g/dL 31.2-35.0 PLT (test code = 777-3) 130 150-328 L MPV (test code = 98340-8) 10.3 fL 9.8-13.0 RDW-CV (test code = 788-0) 20.8 % 12.1-15.4 H RDW-SD (test code = 57122-0) 57.7 fL 38.5-51.6 H NRBC x10^3 (test code = 8474693757) 0.08 See_Comment [Automated messa ge] The system which generated this result transmitted reference range: 10*3/?L. The reference range was not used to interpret this result as normal/abnormal. NRBC/100 WBC (test code = 7431599722) 0.6 0.0-10.0 IPF % (test code = 5317575566) Lab Interpretation (test code = 88396-4) Abnormal [facility] without [id number] 14:54:55* Test Item Value Reference Range Interpretation Comme [facility] WBC (test code = 6690-2) 12.56 4.20-10.70 H RBC (test code = 789-8) 2.62 4.26-5.52 L HGB (test code = 718-7) 7.7 g/dL 12.2-16.4 L HCT (test code = 4544-3) 22.9 % 38.4-49.3 L MCH (test code = 785-6) 29.4 pg 26.1-32.7 MCV (test code = 787-2) 87.4 fL 81.7-95.6 MCHC (test code = 786-4) 33.6 g/dL 31.2-35.0 PLT (test code = 777-3) 130 150-328 L MPV (test code = 98561-2) 10.3 fL 9.8-13.0 RDW-CV (test code = 788-0) 20.8 % 12.1-15.4 H RDW-SD (test code = 16557-3) 57.7 fL 38.5-51.6 H NRBC x10^3 (test code = 9758235149) 0.08 See_Comment [Automated [place] ge] The system which generated this result transmitted reference range: 10*3/?L. The reference range was not used to interpret this result as normal/abnormal. NRBC/100 WBC (test code = 6834392048) 0.6 0.0-10.0 IPF % (test code = 4264478707) Lab Interpretation (test code = 64375-3) Abnormal [facility] GLUCOSE (AUTOMATED)2024-05-17 14:26:51* Test Item Value Reference Range Interpretation Comme [facility] POCT GLU (test code = 7491194550) 146 mg/dL 70-110 H Lab Interpretation (test cod e = 54635-0) Abnormal [facility] GLUCOSE (AUTOMATED)2024-05-17 14:26:51* Test Item Value Reference Range Interpretation Comme nts POCT GLU (test code = 1997384572) 146 mg/dL 70-110 H Lab Interpretation (test cod e = 58642-6) Abnormal [facility] Chest 1 [id number] 12:00:06History: assess hydropneumothorax . Exam: XR CHEST 1 VW Date: 05/17/2024 6:00 AM Ordering provider: GERALDO MENDOZA Comparison: 05/16/2024. Findings: Frontal view of the chest is obtained. Sternotomy wires and left-sided pacemaker ICD are noted. There is a rightIJ catheter in the right atrium. Smallleft apical pneumothorax is stable.The pleural separation measures 2.7 cm. Moderate left pleural effusion hasincreased in size. There are moderate bilateral interstitial opacities,which are slightly increased. Trace right pleural effusion is noted. Thereare chronic- appearing right upper rib deformities.[facility] Chest 1 [id number] 12:00:06History: assess hydropneumothorax . Exam: XR CHEST 1 VW Date: 05/17/2024 6:00 AM Ordering provider: GERALDO MENDOZA Comparison: 05/16/2024. Findings: Frontal view of the chest is obtained. Sternotomy wires and left-sided pacemaker ICD are noted. There is a rightIJ catheter in the right atrium. Smallleft apical pneumothorax is stable.The pleural separation measures 2.7 cm. Moderate left pleural effusion hasincreased in size. There are moderate bilateral interstitial opacities,which are slightly increased. Trace right pleural effusion is noted. Thereare chronic-appearing right upper rib deformit ies.[facility] Packed RBC (in units), 1 Units 2024-05-17 10:10:34* Test Item Value Reference Range Interpretation Comme nts Cross Match Result (test code = 4409) Compatible ISBT Blood Type Code (test code = 682480) 5100 Unit Blood Type (test code = 4410) O Pos Unit Number (test code = 4411) [id number] Blood Expiration Date & Time (test code = 064428) 613023379047 Status Information (test code = 4412) Issued Product Identification (test code = 4413) Red Blood Cells Product Code (test code = 4414) [id number] Performed at [facility] Laboratory [facility] Blood [address] [address]Iizm Free: [phone] No. [id number] [facility] Packed RBC (in units), 1 Units 2024-05-17 10:10:34* Test Item Value Reference Range Interpretation Comme nts Cross Match Result (test code = 4409) Compatible ISBT Blood Type Code (test code = 498605) 5100 Unit Blood Type (test code = 4410) O Pos Unit Number (test code = 4411) [id number] Blood Expiration Date & Time (test code = 449979) 555809866903 Status Information (test code = 4412) Issued Product Identification (test code = 4413) Red Blood Cells Product Code (test code = 4414) [id number] Performed at [facility] Laboratory [facility] Blood [address] [address]Qqot Free: [phone] No. [id number] [facility] GLUCOSE (AUTOMATED)2024-05-17 03:10:21* Test Item Value Reference Range Interpretation Comme nts POCT GLU (test code = 1669515438) 153 mg/dL 70-110 H Lab Interpretation (test cod e = 71636-0) Abnormal [facility] GLUCOSE (AUTOMATED)2024-05-17 03:10:21* Test Item Value Reference Range Interpretation Comme nts POCT GLU (test code = 3754909459) 153 mg/dL 70-110 H Lab Interpretation (test cod e = 95371-1) Abnormal [facility] GLUCOSE (AUTOMATED)2024-05-17 01:05:18* Test Item Value Reference Range Interpretation Comme nts POCT GLU (test code = 7162768741) 124 mg/dL 70-110 H Lab Interpretation (test cod e = 85551-3) Abnormal [facility] GLUCOSE (AUTOMATED)2024-05-17 01:05:18* Test Item Value Reference Range Interpretation Comme nts POCT GLU (test code = 1230268633) 124 mg/dL 70-110 H Lab Interpretation (test cod e = 93448-1) Abnormal [facility] 1 [id number] 20:45:33EXAM: XR CHEST 1 VW HISTORY: 63 years-old Male with [place] pneumothorax . TECHNIQUE: Single frontal view of the chest. COMPARISON: None FINDINGS: Lines, tubes and devices: Partially imaged left chest wall ICD projectsover the right ventricle. There is a right IJ approach central venouscatheter with tip terminating over the right atrium. Lungs and pleura: The lungs are adequately expanded. Unchanged moderateleft hydropneumothorax accounting for technique. Diffuse prominentinterstitial markings. Heart/Mediastinum: The cardiac silhouette appears normal accounting fortechnique and degree of inspiration. Bones and soft tissues: No acute fracture, aggressive osseous lesion, ordislocation. No soft t issue abnormality.[facility] Chest 1 [id number] 20:45:33EXAM: XR CHEST 1 VW HISTORY: 63 years-old Male with [place] pneumothorax . TECHNIQUE: Single frontal view of the chest. COMPARISON: None FINDINGS: Lines, tubes and devices: Partially imaged left chest wall ICD projectsover the right ventricle. There is a right IJ approach central venouscatheter with tip terminating over the right atrium. Lungs and pleura: The lungs are adequately expanded. Unchanged moderateleft hydropneumothorax accounting for technique. Diffuse prominentinterstitial markings. Heart/Mediastinum: The cardiac silhouette appears normal accounting fortechnique and degree of inspiration. Bones and soft tissues: No acute fracture, aggressive osseous lesion, ordislocation. No soft tissue abnormality.[facility] GLUCOSE (AUTOMATED)2024-05-16 18:12:20* Test Item Value Reference Range Interpretation Comme nts POCT GLU (test code = 3849441580) 202 mg/dL 70-110 H Lab Interpretation (test cod e = 89129-8) Abnormal [facility] GLUCOSE (AUTOMATED)2024-05-16 18:12:20* Test Item Value Reference Range Interpretation Comme nts POCT GLU (test code = 2548294897) 202 mg/dL 70-110 H Lab Interpretation (test cod e = 25732-4) Abnormal [facility] GLUCOSE (AUTOMATED)2024-05-16 15:15:49* Test Item Value Reference Range Interpretation Comme nts POCT GLU (test code = 5686406440) 184 mg/dL 70-110 H Lab Interpretation (test cod e = 54042-3) [facility]2024-05-16 15:15:49* Test Item Value Reference Range Interpretation Comme nts POCT GLU (test code = 4376929542) 184 mg/dL 70-110 H Lab Interpretation (test cod e = 28524-2) [facility]normal [facility]2024-05-16 03:00:17* Test Item Value Reference Range Interpretation Comme nts POCT GLU (test code = 2515179135) 157 mg/dL 70-110 H Lab Interpretation (test cod e = 71459-6) [facility]normal [facility]2024-05-16 03:00:17* Test Item Value Reference Range Interpretation Comme nts POCT GLU (test code = 5264337506) 157 mg/dL 70-110 H Lab Interpretation (test cod e = 92459-6) Abnormal [facility] GLUCOSE (AUTOMATED)2024-05-15 21:40:14* Test Item Value Reference Range Interpretation Comme nts POCT GLU (test code = 3446645270) 143 mg/dL 70-110 H Lab Interpretation (test cod e = 79383-9) [facility]normal [facility])2024-05-15 21:40:14* Test Item Value Reference Range Interpretation Comme nts POCT GLU (test code = 9070352917) 143 mg/dL 70-110 H Lab Interpretation (test cod e = 69172-8) [facility]normal [facility])2024-05-15 17:43:46* Test Item Value Reference Range Interpretation Comme nts POCT GLU (test code = 4517216319) 127 mg/dL 70-110 H Lab Interpretation (test cod e = 03266-1) Abnormal [facility])2024-05-15 17:43:46* Test Item Value Reference Range Interpretation Comme nts POCT GLU (test code = 3367847889) 127 mg/dL 70-110 H Lab Interpretation (test cod e = 87655-1) Abnormal [facility] GLUCOSE (AUTOMATED)2024-05-15 13:42:15* Test Item Value Reference Range Interpretation Comme nts POCT GLU (test code = 6091679542) 118 mg/dL 70-110 H Lab Interpretation (test cod e = 87352-9) Abnormal [facility] GLUCOSE (AUTOMATED)2024-05-15 13:42:15* Test Item Value Reference Range Interpretation Comme nts POCT GLU (test code = 9533382451) 118 mg/dL 70-110 H Lab Interpretation (test cod e = 01804-5) Abnormal [facility] GLUCOSE (AUTOMATED)2024-05-15 02:43:43* Test Item Value Reference Range Interpretation Comme nts POCT GLU (test code = 9214556380) 151 mg/dL 70-110 H Lab Interpretation (test cod e = 97393-6) Abnormal [facility] GLUCOSE (AUTOMATED)2024-05-15 02:43:43* Test Item Value Reference Range Interpretation Comme nts POCT GLU (test code = 8895868464) 151 mg/dL 70-110 H Lab Interpretation (test cod e = 82081-8) Abnormal [facility] GLUCOSE (AUTOMATED)2024-05-14 23:44:13* Test Item Value Reference Range Interpretation Comme nts POCT GLU (test code = 4534140599) 149 mg/dL 70-110 H Lab Interpretation (test cod e = 07084-0) Abnormal [facility] GLUCOSE (AUTOMATED)2024-05-14 23:44:13* Test Item Value Reference Range Interpretation Comme nts POCT GLU (test code = 1659554315) 149 mg/dL 70-110 H Lab Interpretation (test cod e = 57361-9) Abnormal [facility] Packed RBC (in units), 1 Units 2024-05-14 17:34:11* Test Item Value Reference Range Interpretation Comme nts Cross Match Result (test code = 4409) Compatible ISBT Blood Type Code (test code = 191212) 5100 Unit Blood Type (test code = 4410) O Pos Unit Number (test code = 4411) [id number] Blood Expiration Date & Time (test code = 456124) 815047635182 Status Information (test code = 4412) Issued Product Identification (test code = 4413) Red Blood Cells Product Code (test code = 4414) [id number] Performed at [facility] Laboratory [facility] Blood [address] [address]Wqab Free: [phone] No. [id number] [facility] Packed RBC (in units), 1 Units 2024-05-14 17:34:11* Test Item Value Reference Range Interpretation Comme nts Cross Match Result (test code = 4409) Compatible ISBT Blood Type Code (test code = 176105) 5100 Unit Blood Type (test code = 4410) O Pos Unit Number (test code = 4411) [id number] Blood Expiration Date & Time (test code = 593052) 837223054284 Status Information (test code = 4412) Issued Product Identification (test code = 4413) Red Blood Cells Product Code (test code = 4414) [id number] Performed at [facility] Laboratory [facility] Blood [address] [address]Aoya Free: [phone] No. [id number] [facility] GLUCOSE (AUTOMATED)2024-05-14 15:34:42* Test Item Value Reference Range Interpretation Comme [facility] POCT GLU (test code = 4343442512) 155 mg/dL 70-110 H Lab Interpretation (test cod e = 86470-2) Abnormal [facility] GLUCOSE (AUTOMATED)2024-05-14 15:34:42* Test Item Value Reference Range Interpretation Comme [facility] POCT GLU (test code = 0772608955) 155 mg/dL 70-110 H Lab Interpretation (test cod e = 27272-1) Abnormal [facility] abdomen/wbxupc5750-69-95 15:02:16 EXAM: CT ANGIOGRAM ABDOMEN/PELVIS HISTORY: 63-year-old male with history of ESRD on hemodialysis MWFpresenting with one day history of dark stools. The current examination wasordered to assess for active gastrointestinal bleeding. TECHNIQUE: Contiguous axial imaging from the level of the lung basesthrough the proximal thighs was performed with and without intravenouscontrast. Coronal and sagittalreconstructions were obtained. COMPARISON: Prior CT abdomen and pelvis obtained on 02/11/2018 FINDINGS: VESSELS: Active contrast extravasation with pooling on delayed phases seenat the proximal duodenal segments corresponding to the territory of thegastroduodenal artery (11:48, 17:48, 23:47). Mild a ortoiliacatherosclerotic disease; no critical stenosis present at any level orwithin the visceral branch vessels. There is a prominent focus of softplaque in the proximal left common iliac artery. Noaneurysmal dilation. Notraumatic dissection. The portal and systemic venous vasculature are patentto the extent visualized. LOWER THORAX: Large left and moderate right pleural effusions with adjacentrelaxation atelectasis. Mild cardiomegaly. Partially profiled AICD leadcourses into the heart and terminates within the right ventricle. LIVER: The liver is normal in size and contour. No focal hepatic lesion.The hepatic veins and portal veins are patent. GALLBLADDER AND BILIARY TREE: The gallbladder is contracted. Trace volumepericholecystic fluid, likely related to fluid overload state. Noradiopaque gallstones. No intrahepatic or extrahepatic biliary ductaldilation. SPLEEN: The spleen is normal in size. PANCREAS: No ductal dilation or masses. ADRENAL GLANDS: No adrenal nodules. KIDNEYS: No hy dronephrosis, stones or suspicious masses. PELVIS/BLADDER: There is circumferential urinary bladderwall thickening.The prostate is normal in size. GI TRACT: Contrast extravasation within the proximal duodenum, describedabove. Marked distention of the stomach with multiple loops of fluid-filledbowel. No bowel dilation or wall thickening. Normal appendix. PERITONEUM AND RETROPERITONEUM: Mild, diffuse mesenteric edema likelycorresponding to fluid overload state. No free air. LYMPH NODES: No lymphadenopathy. BONES AND SOFT TISSUES: No suspicious lytic or sclerotic bony lesions. Mildmultilevel spo ndylotic changes manifested by marginal osteophytes, facetarthrosis and endplate sclerosis.[facility] [facility]/pelvis 2024-05-14 15:02:16EXAM: CT ANGIOGRAM ABDOMEN/PELVIS HISTORY: 63-year-old male with history of ESRD on hemodialysis MWFpresenting with one day history of dark stools. The current examination wasordered to assess for active gastrointestinal bleeding. TECHNIQUE: Contiguous axial imaging from the level of the lung basest hrough the proximal thighs was performed with and without intravenouscontrast. Coronal and sagittalreconstructions were obtained. COMPARISON: Prior CT abdomen and pelvis obtained on 02/11/2018 FINDINGS: VESSELS: Active contrast extravasation with pooling on delayed phases seenat the proximal duodenal segments corresponding to the territory of thegastroduodenal artery (11:48, 17:48, 23:47). Mild aortoiliacatherosclerotic disease; no critical stenosis present at any level orwithin the visceral branch vessels. There is a prominent focus of softplaque in the proximal left common iliac artery. Noaneurysmal dilation. Notraumatic dissection. The portal and systemic venous vasculature are patentto the extent visualized. LOWER THORAX: Large left and moderate right pleural effusions with adjacentrelaxation atelectasis. Mild cardiomegaly. Partially profiled AICD leadcourses into the heart and terminates within the right ventricle. LIVER: The liver is normal in size and contour. No focal hepatic lesion.The hepatic veins and portal veins are patent. GALLBLADDER AND BILIARY TREE: The gallbladder is contracted. Trace volumepericholecystic fluid, likely related to fluid overload state. Noradiopaque gallstones. No intrahepatic or extrahepatic biliary ductaldilation. SPLEEN: The spleen is normal in size. PANCREAS: No ductal dilation or masses. ADRENAL GLANDS: No adrenal nodules. KIDNEYS: No hydronephrosis, stones or suspicious masses. PELVIS/BLADDER: There is circumferential urinary bladderwall thickening.The prostate is normal in size. GI TRACT: Contrast extravasation within the proximal duodenum, describedabove. Marked distention of the stomach with multiple loops of fluid-filledbowel. No bowel dilation or wall thickening. Normal appendix. PERITONEUM AND RETROPERITONEUM: Mild, diffuse mesenteric edema likelycorresponding to fluid overload state. No free air. LYMPH NODES: No lympha denopathy. BONES AND SOFT TISSUES: No suspicious lytic or sclerotic bony lesions. Mildmultilevel spondylotic changes manifested by marginal osteophytes, facetarthrosis and endplate sclerosis.[facility] Packed RBC (in units), 2 [id number] 11:04:28* Test Item Value Reference Range Interpretation Comme nts Cross Match Result (test code = 4409) Compatible ISBT Blood Type Code (test code = 626230) 5100 Unit Blood Type (test code = 4410) O Pos Unit Number (test code = 4411) [id number] Blood Expiration Date & Time (test code = 845275) [id number] Status Information (test code = 4412) Issued Product Identification (test code = 4413) Red Blood Cells Product Code (test code = 4414) [id number] Performed at [facility] Blood [place] [id number] Free: [phone] No. [id number] [facility] Packed RBC (in units), 2 Units 2024-05-14 11:04:28* Test Item Value Reference Range Interpretation Comme nts Cross Match Result (test code = 4409) Compatible ISBT Blood Type Code (test code = 466568) 5100 Unit Blood Type (test code = 4410) O Pos Unit Number (test code = 4411) [id number] Blood Expiration Date & Time (test code = 249634) [id number] Status Information (test code = 4412) Issued Product Identification (test code = 4413) Red Blood Cells Product Code (test code = 4414) [id number] Performed at [facility] Blood [place] [id number] Free: [phone] No. [id number] [facility]2025-01-22 06:33:14* Test Item Value Reference Range Interpretation Comme nts Fibrinogen (test code = 6459662155) 273 mg/dL 167-453 Lab Interpretation (test cod e = 54217-1) [facility] 06:33:14* Test Item Value Reference Range Interpretation Comme nts Fibrinogen (test code = 6412669471) 273 mg/dL 167-453 Lab Interpretation (test cod e = 83012-2) Normal [facility] Acid Whole [id number] 03:28:01* Test Item Value Reference Range Interpretation Comme nts LACTIC ACID (test code = 8288483448) 2.61 mmol/L 0.50-2.20 H Lab Interpretation (test cod e = 59728-4) Abnormal [facility] Acid Whole [id number] 03:28:01* Test Item Value Reference Range Interpretation Comme nts LACTIC ACID (test code = 3814077526) 2.61 mmol/L 0.50-2.20 H Lab Interpretation (test cod e = 29492-7) Abnormal [facility] Packed RBC (in units), 1 Units 2024-05-14 03:27:23* Test Item Value Reference Range Interpretation Comme nts Cross Match Result (test code = 4409) Compatible ISBT Blood Type Code (test code = 496433) 5100 Unit Blood Type (test code = 4410) O Pos Unit Number (test code = 4411) [id number] Blood Expiration Date & Time (test code = 788615) [id number] Status Information (test code = 4412) Issued Product Identification (test code = 4413) Red Blood Cells Product Code (test code = 4414) [id number] Performed at [facility] Laboratory [facility] Blood [address] [place], [place] [id number] Free: [phone] No. [id number] [facility] Packed RBC (in units), 1 Units 2024-05-14 03:27:23* Test Item Value Reference Range Interpretation Comme nts Cross Match Result (test code = 4409) Compatible ISBT Blood Type Code (test code = 233948) 5100 Unit Blood Type (test code = 4410) O Pos Unit Number (test code = 4411) [id number] Blood Expiration Date & Time (test code = 005767) [id number] Status Information (test code = 4412) Issued Product Identification (test code = 4413) Red Blood Cells Product Code (test code = 4414) [id number] Performed at [facility] Laboratory [facility] Blood [address] [place], [place] [id number] Free: [phone] No. [id number] [facility] Confirm[facility] (Lab Only)2024-05-14 01:21:00* Test Item Value Reference Range Interpretation Comme nts ABO & RH (test code = 20) O Positive [facility] Confirmation (Lab Only)2024-05-14 01:21:00* Test Item Value Reference Range Interpretation Comme nts ABO & RH (test code = 20) O Positive [facility]landL[facility] Acid Whole [id number] 00:55:03* Test Item Value Reference Range Interpretation Comme nts LACTIC ACID (test code = 3773240605) 2.14 mmol/L 0.50-2.20 Lab Interpretation (test cod e = 47802-9) Normal [facility]landLactic Acid Whole [id number] 00:55:03* Test Item Value Reference Range Interpretation Comme nts LACTIC ACID (test code = 6803420530) 2.14 mmol/L 0.50-2.20 Lab Interpretation (test cod e = 90163-9) Normal [facility]Critical [id number] 00:16:00Tien Gross MD ? ? 05/13/2024 11:12 PMCritical Care Performed by: Tien Gross MDAuthorizedby: Tien Gross MD ?Critical care provider statement: ?Critical care time was exclusive of: ?Separately billable procedures and treating other patients and teaching time ?Critical care was necessary to treat or prevent imminent or life-threatening deterioration of the following conditions: ?Cir culatory failure ?Critical care was time spent personally by me on the following activities: ?Development of treatment plan with patient or surrogate, evaluation of patient's response to treatment, examination of patient, obtaining history from patient or surrogate, ordering and performing treatments and interventions, ordering and review of laboratory studies, ordering and review of radiographic studies, pulse oximetry, re-evaluation of patient's condition and review of old charts ?Care discussed with: admitting provider ?Comments: ? Due to a high probability of clinically significant, life threatening deterioration, the patient required my highest level of preparedness to intervene emergently and I personally spent this critical care time directly and personally managing the patient. This critical care time included obtaining a history; examining the patient; pulse oximetry; ordering and review of studies; arranging urgent treatment with development of a management plan; evaluation of patient's response to treatment; frequent reassessment; and, discussions with other providers.This critical care time was performed to assess and manage the high probability of imminent, life-threatening deterioration that could result in multi-organ failure. It was exclusive of separately billable procedures and treating other patients.[facility] GLUCOSE (AUTOMATED)2024-05-12 17:49:07* Test Item Value Reference Range Interpretation Comme nts POCT GLU (test code = 6477767057) 148 mg/dL 70-110 H Lab Interpretation (test cod e = 27611-6) Abnormal [facility] GLUCOSE (AUTOMATED)2024-05-12 17:49:07* Test Item Value Reference Range Interpretation Comme nts POCT GLU (test code = 8525601381) 148 mg/dL 70-110 H Lab Interpretation (test cod e = 00846-8) Abnormal [facility] Chest 1 [id number] 14:09:08EXAM: ?XR CHEST 1 VW HISTORY: ?Pneumothorax Portable Ordering physician: JONY RAM COMPARISON: Chest x-ray from May 11, 2024. TECHNIQUE: Frontal chest x-ray. ? FINDINGS: Right jugular catheterand left pacemaker are again in place. A small leftpneumothorax of 10% is stable of 1.8 cm. Heart size is stable. Pulmonaryvessels are indistinct. Moderate left lung basilar patchy opacities arestable. Small left and trace right pleural effusions are stable.Mediastinal contour is normal. ?[facility] Chest 1 [id number] 14:09:08EXAM: ?XR CHEST 1 VW HISTORY: ?Pneumothorax Portable Ordering physician: JONY RAM COMPARISON: Chest x-ray from May 11, 2024. TECHNIQUE: Frontal chest x-ray. ? FINDINGS: Right jugular catheterand left pacemaker are again in place. A small leftpneumothorax of 10% is stable of 1.8 cm. Heart size is stable. Pulmonaryvessels are indistinct. Moderate left lung basilar patchy opacities arestable. Small left and trace right pleural effusions are stable.Mediastinal contour is normal. ?[facility] GLUCOSE (AUTOMATED)2024-05-12 13:53:35* Test Item Value Reference Range Interpretation Comme nts POCT GLU (test code = 9327747265) 79 mg/dL 70-110 Lab Interpretation (test cod e = 42761-2) Normal [facility] GLUCOSE (AUTOMATED)2024-05-12 13:53:35* Test Item Value Reference Range Interpretation Comme nts POCT GLU (test code = 8159784818) 79 mg/dL 70-110 Lab Interpretation (test cod e = 28309-7) [facility]2024-05-12 03:42:30* Test Item Value Reference Range Interpretation Comme nts POCT GLU (test code = 7712211382) 221 mg/dL 70-110 H Lab Interpretation (test cod e = 36906-3) Abnormal [facility]2024-05-12 03:42:30* Test Item Value Reference Range Interpretation Comme nts POCT GLU (test code = 2105181672) 221 mg/dL 70-110 H Lab Interpretation (test cod e = 86182-5) [facility]normal [facility]2024-05-11 22:28:02* Test Item Value Reference Range Interpretation Comme nts POCT GLU (test code = 8629500689) 118 mg/dL 70-110 H Lab Interpretation (test cod e = 60599-3) Abnormal [facility] GLUCOSE (AUTOMATED)2024-05-11 22:28:02* Test Item Value Reference Range Interpretation Comme nts POCT GLU (test code = 2722048410) 118 mg/dL 70-110 H Lab Interpretation (test cod e = 55768-5) Abnormal [facility] GLUCOSE (AUTOMATED)2024-05-11 17:27:00* Test Item Value Reference Range Interpretation Comme nts POCT GLU (test code = 6544602971) 183 mg/dL 70-110 H Lab Interpretation (test cod e = 56383-3) Abnormal [facility] GLUCOSE (AUTOMATED)2024-05-11 17:27:00* Test Item Value Reference Range Interpretation Comme nts POCT GLU (test code = 0161748131) 183 mg/dL 70-110 H Lab Interpretation (test cod e = 78028-0) [facility]2024-05-11 13:30:28* Test Item Value Reference Range Interpretation Comme nts POCT GLU (test code = 5139343875) 66 mg/dL 70-110 L Lab Interpretation (test cod e = 40039-9) Abnormal [facility] GLUCOSE (AUTOMATED)2024-05-11 13:30:28* Test Item Value Reference Range Interpretation Comme nts POCT GLU (test code = 7703691877) 66 mg/dL 70-110 L Lab Interpretation (test cod e = 04906-2) Abnormal [facility] 1 [id number] 13:17:44History: L ptx . Exam: XR CHEST 1 VW Date: 05/11/2024 4:00 AM Ordering provider: ASAD MORGAN Comparison: 05/10/2024. Findings: Frontal view of the chest is obtained. Sternotomy wires and left-sided pacemaker ICD are noted. There is a rightIJ catheter at the cavoatrial junction. The cardiac silhouette is mildlyenlarged. Small left apical pneumothorax is similar on the prior. Chronicappearing right u pper rib deformities are noted. Mild bilateralinterstitial opacities are stable. Small to moderate left and trace rightpleural effusions are unchanged.[facility] 1 [id number] 13:17:44History: L ptx . Exam: XR CHEST 1 VW Date: 05/11/2024 4:00 AM Ordering provider: ASAD MORGAN Comparison: 05/10/2024. Findings: Frontal view of the chest is obtained. Sternotomy wires and left-sided pacemaker ICD are noted. There is a rightIJ catheter at the cavoatrial junction. The cardiac silhouette is mildlyenlarged. Small left apical pneumothorax is similar on the prior. Chronicappearing right upper rib deformities are noted. Mild bilateralinterstitial opacities are stable. Small to moderate left and trace rightpleural effusions are unchanged.[facility] GLUCOSE (AUTOMATED)2024-05-11 02:34:32* Test Item Value Reference Range Interpretation Comme nts POCT GLU (test code = 4186739640) 140 mg/dL 70-110 H Lab Interpretation (test cod e = 91056-5) Abnormal [facility] GLUCOSE (AUTOMATED)2024-05-11 02:34:32* Test Item Value Reference Range Interpretation Comme nts POCT GLU (test code = 4677846716) 140 mg/dL 70-110 H Lab Interpretation (test cod e = 20418-1) Abnormal [facility] GLUCOSE (AUTOMATED)2024-05-10 22:18:30* Test Item Value Reference Range Interpretation Comme nts POCT GLU (test code = 6937694913) 111 mg/dL 70-110 H Lab Interpretation (test cod e = 73031-1) Abnormal [facility] GLUCOSE (AUTOMATED)2024-05-10 22:18:30* Test Item Value Reference Range Interpretation Comme nts POCT GLU (test code = 4215308092) 111 mg/dL 70-110 H Lab Interpretation (test cod e = 26660-5) Abnormal [facility] GLUCOSE (AUTOMATED)2024-05-10 18:05:23* Test Item Value Reference Range Interpretation Comme nts POCT GLU (test code = 0903839445) 178 mg/dL 70-110 H Lab Interpretation (test cod e = 97578-9) Abnormal [facility] GLUCOSE (AUTOMATED)2024-05-10 18:05:23* Test Item Value Reference Range Interpretation Comme nts POCT GLU (test code = 0368441357) 178 mg/dL 70-110 H Lab Interpretation (test cod e = 34451-9) Abnormal [facility] 1 [id number] 17:02:20EXAM: XR CHEST 1 VW HISTORY: 63 years-old Male; LT apical pneumo Portable COMPARISON: CXR dated 05/09/2024 FINDINGS: Lines/Devices: The right-sided dual-lumen catheter is unchanged in positionwith thetips projecting over the atriocaval junction and right atrium.Unchanged position of the left-sided AICD with its lead tip projecting overthe right ventricle. Lungs: The lung volumes are normal on the right and decreased on the left.Left basilar consolidation and small bilateral pleural effusions are againseen. The small left apical pneumothorax appears unchanged in sizemeasuring approximately 1.5cm. Heart/Mediastinum: The cardiomediastinal silhouette appears normal. Bones and soft tissues: No acute osseous findings are detected. Sternotomywires appear intact and unchanged in position.[facility] 1 [id number] 17:02:20EXAM: XR CHEST 1 VW HISTORY: 63 years-old Male; LT apical pneumo Portable COMPARISON: CXR dated 05/09/2024 FINDINGS: Lines/Devices: The right-sided dual-lumen catheter is unchanged in positionwith thetips projecting over the atriocaval junction and right atrium.Unchanged position of the left-sided AICD with its lead tip projecting overthe right ventricle. Lungs: The lung volumes are normal on the right and decreased on the left.Left basilar consolidation and small bilateral pleural effusions are againseen. The small left apical pneumothorax appears unchanged in sizemeasuring approximately 1.5cm. Heart/Mediastinum: The cardiomediastinal silhouette appears normal. Bones and soft tissues: No acute osseous findings are detected. Sternotomywires appear intact and unchanged in position.[facility] GLUCOSE (AUTOMATED)2024-05-10 13:34:26* Test Item Value Reference Range Interpretation Comme [facility] POCT GLU (test code = 1854567277) 111 mg/dL 70-110 H Lab Interpretation (test cod e = 17269-1) Abnormal [facility] GLUCOSE (AUTOMATED)2024-05-10 13:34:26* Test Item Value Reference Range Interpretation Comme nts POCT GLU (test code = 0901347487) 111 mg/dL 70-110 H Lab Interpretation (test cod e = 63310-1) Abnormal [facility] 1 [id number] 13:11:01History: ptx . Exam: XR CHEST 1 VW Date: 05/10/2024 4:00 AM Ordering provider: ASAD MORGAN Comparison: 05/09/2024. Findings: Frontal view of the chest is obtained. Sternotomy wires, left-sided pacemaker ICD, and right IJ catheter are againnoted. The cardiac silhouette is mildly enlarged. There is chronicappearing right upper rib deformity. Small left apical pneumothorax is stable. Small to moderate left and traceright pleural effusions are noted. Mild bilateral perihilar interstitialopacities are unchanged.[facility] XR Chest 1 [id number] 13:11:01History: ptx . Exam: XR CHEST 1 VW Date: 05/10/2024 4:00 AM Ordering provider: ASAD MORGAN Comparison: 05/09/2024. Findings: Frontal view of the chest is obtained. Sternotomy wires, left-sided pacemaker ICD, and right IJ catheter are againnoted. The cardiac silhouette is mildly enlarged. There is chronicappearing right upper rib deformity. Small left apical pneumothorax is stable. Small to moderate left and traceright pleural effusions are noted. Mild bilateral perihilar interstitialopacities are unchanged.[facility] GLUCOSE (AUTOMATED)2024-05-10 02:19:54* Test Item Value Reference Range Interpretation Comme nts POCT GLU (test code = 1265100231) 240 mg/dL 70-110 H Lab Interpretation (test cod e = 38512-0) Abnormal [facility] GLUCOSE (AUTOMATED)2024-05-10 02:19:54* Test Item Value Reference Range Interpretation Comme nts POCT GLU (test code = 6398017379) 240 mg/dL 70-110 H Lab Interpretation (test cod e = 94368-8) Abnormal [facility]bc Antibody (IgM & IgG)2024-05-09 22:23:44* Test Item Value Reference Range Interpretation Comme nts HBC (test code = 6926031548) Negative HBC Semi-Quantitative (test code = 2779266270) 3.19 [facility] Antibody (IgM & IgG)2024-05-09 22:23:44* Test Item Value Reference Range Interpretation Comme nts HBC (test code = 2299693352) Negative HBC Semi-Quantitative (test code = 0957484047) 3.19 [facility] Chest 1 [id number] 20:43:00ORDERING PHYSICIAN: ASAD MORGAN. HISTORY: permacath TECHNIQUE: AP. COMPARISON: 05/07/2024 FINDINGS:Support equipment: ?A right IJ central line terminates at the cavoatrialjunction. A single lead left-sided AICD is present. Sternotomy wires arepresent. Lungs: ?Moderate left basilar consolidation ispresent. Pleura: ?Small pleural effusions are unchanged. There is a left apicalpneumothorax measuring 1.5 cm. Mediastinum/Jessie: ?No masses or adenopathy. Heart: ?The heart is not enlarged. Other: ?Noacute osseous abnormality is seen.[facility] Chest 1 [id number] 20:43:00ORDERING PHYSICIAN: ASAD MORGAN. HISTORY: permacath TECHNIQUE: AP. COMPARISON: 05/07/2024 FINDINGS:Support equipment: ?A right IJ central line terminates at the cavoatrialjunction. A single lead left-sided AICD is present. Sternotomy wires arepresent. Lungs: ?Moderate left basilar consolidation ispresent. Pleura: ?Small pleural effusions are unchanged. There is a left apicalpneumothorax measuring 1.5 cm. Mediastinum/Jessie: ?No masses or adenopathy. Heart: ?The heart is not enlarged. Other: ?Noacute osseous abnormality is seen.[facility] POCT GLUCOSE (AUTOMATED)2024-05-09 18:31:55* Test Item Value Reference Range Interpretation Comme nts POCT GLU (test code = 9180803472) 78 mg/dL 70-110 Lab Interpretation (test cod e = 06963-3) Normal [facility] GLUCOSE (AUTOMATED)2024-05-09 18:31:55* Test Item Value Reference Range Interpretation Comme nts POCT GLU (test code = 1437398863) 78 mg/dL 70-110 Lab Interpretation (test cod e = 68149-7) Normal [facility] GLUCOSE (AUTOMATED)2024-05-09 17:43:54* Test Item Value Reference Range Interpretation Comme nts POCT GLU (test code = 8808925102) 76 mg/dL 70-110 Lab Interpretation (test cod e = 15446-1) Normal [facility] GLUCOSE (AUTOMATED)2024-05-09 17:43:54* Test Item Value Reference Range Interpretation Comme nts POCT GLU (test code = 5996380479) 76 mg/dL 70-110 Lab Interpretation (test cod e = 17346-9) Normal [facility] Time OR(non-reportable)2024-05-09 17:19:41 These images do not require a Radiology diagnostic report.[facility] Time OR(non-reportable)2024-05-09 17:19:41These images do not require a Radiology diagnostic report.[facility]landNerve [id number] 14:59:54EppersonJony MD ? ? 05/09/2024 ?9:03 AM Nerve Block Procedure: Axillary Nerve Block and Interscalene Nerve Block Patient Location: HoldingLaterality: RightSurgical Anesthesia: Start Time: 05/09/2024 7:17 AMEnd Time: 05/09/2024 7:25 AMAnesthesiologist: Jony Vaughan MDPerformed by: anesthesiologistPreanesthetic timeout completed prior to procedure: patient identified,IV checked, site marked, risks and benefits discussed, surgical consent, monitors and equipment checked, pre-op evaluation, timeout performedInformed consent obtained patient wishes to proceed: yesPatient Position: supineSterile Prep/Drape: YesMonitoring: continuous pulse ox, blood pressure and ECGInjection Technique: single-shotNeedle Type: StimuplexNeedle Gauge: 22 GNumber of Attempts: 2Needle Insertion Depth: 2Technique: Ultrasound guided, Negative aspiration and Intermittent aspiration during injectionSensory Effect: AdequateEvents: No symptoms of intraneural or IV injection Medications Given: Regional:Bupiv 0.5% 20 mL Additional Notes:Interscalene block done with 10 cc 2% lidocaine [facility]UnWar[facility]2024-05-09 12:58:21* Test Item Value Reference Range Interpretation Comme [facility] POCT GLU (test code = 8257604680) 117 mg/dL 70-110 H Lab Interpretation (test cod e = 71786-0) Abnormal [facility] GLUCOSE (AUTOMATED)2024-05-09 12:58:21* Test Item Value Reference Range Interpretation Comme [facility] POCT GLU (test code = 1418618907) 117 mg/dL 70-110 H Lab Interpretation (test cod e = 73717-5) Abnormal [facility] Metabolic Panel (NA, K, CL, CO2, GLUCOSE, BUN, CREATININE, CA)2024-05-09 12:42:53* Test Item Value Reference Range Interpretation Comme [facility] NA (test code = 5926415138) 134 mmol/L 135-145 L K (test code = 6883494415) 4.3 mmol/L 3.5-5.0 CL (test code = 6900278059) 105 mmol/L 98-108 CO2 TOTAL (test code = 0924868672) 20 mmol/L 23-31 L AGAP (test code = 4497220136) 9 2-16 BUN (test code = 2583345678) 86 mg/dL 7-23 H GLUCOSE (test code = 0487852128) 118 mg/dL 70-110 H CREATININE (test code = 2160-0) 5.19 mg/dL 0.60-1.25 H CALCIUM (test code = 5453565674) 7.7 mg/dL 8.6-10.6 L eGFR (test code = 82057-4) 11.8 mL/min/1.73m2 CKD-EPI eGFR (2020). Assuming creatinine has been stable day-to-day for at least three months, the eGFR indicates Category G5 (<= 14mL/min/1.73 m2) Lab Interpretation (test code = 06515-3) Abnormal [facility]2025-01-17 12:42:53* Test Item Value Reference Range Interpretation Comme nts MAGNESIUM (test code = 4141035942) 1.9 mg/dL 1.7-2.4 Lab Interpretation (test cod e = 92498-9) Normal [facility] Metabolic Panel (NA, K, CL, CO2, GLUCOSE, BUN, CREATININE, CA)2024-05-09 12:42:53* Test Item Value Reference Range Interpretation Comme nts NA (test code = 6897191977) 134 mmol/L 135-145 L K (test code = 6417301103) 4.3 mmol/L 3.5-5.0 CL (test code = 7823677806) 105 mmol/L 98-108 CO2 TOTAL (test code = 1356530593) 20 mmol/L 23-31 L AGAP (test code = 1575326825) 9 2-16 BUN (test code = 2409927820) 86 mg/dL 7-23 H GLUCOSE (test code = 5067164298) 118 mg/dL 70-110 H CREATININE (test code = 2160-0) 5.19 mg/dL 0.60-1.25 H CALCIUM (test code = 8988114848) 7.7 mg/dL 8.6-10.6 L eGFR (test code = 83761-5) 11.8 mL/min/1.73m2 CKD-EPI eGFR (2020). Assuming creatinine has been stable day-to-day for at least three months, the eGFR indicates Category G5 (<= 14mL/min/1.73 m2) Lab Interpretation (test code = 13444-7) Abnormal [facility]2025-01-17 12:42:53* Test Item Value Reference Range Interpretation Comme nts MAGNESIUM (test code = 4860039452) 1.9 mg/dL 1.7-2.4 Lab Interpretation (test cod e = 78220-6) [facility] / [id number] 12:37:30* Test Item Value Reference Range Interpretation Comme nts PROTIME PATIENT (test code = 5964-2) 13.4 10.1-12.6 H INR (test code = 6301-6) 1.1 Normal INR <1.1; Warfarin Therapeutic range 2.0 to 3.0 or 2.5 to 3.5, depending upon the indications. Lab Interpretation (test code = 56050-7) Abnormal [facility] / [id number] 12:37:30* Test Item Value Reference Range Interpretation Comme nts PROTIME PATIENT (test code = 5964-2) 13.4 10.1-12.6 H INR (test code = 6301-6) 1.1 Normal INR <1.1; Warfarin Therapeutic range 2.0 to 3.0 or 2.5 to 3.5, depending upon the indications. Lab Interpretation (test code = 90175-9) Abnormal [facility] with Clht3331-11-24 12:12:29* Test Item Value Reference Range Interpretation Comme nts WBC (test code = 6690-2) 4.19 4.20-10.70 L RBC (test code = 789-8) 2.45 4.26-5.52 L HGB (test code = 718-7) 7.5 g/dL 12.2-16.4 L HCT (test code = 4544-3) 23.6 % 38.4-49.3 L MCV (test code = 787-2) 96.3 fL 81.7-95.6 H MCH (test code = 785-6) 30.6 pg 26.1-32.7 MCHC (test code = 786-4) 31.8 g/dL 31.2-35.0 RDW-SD (test code = 12595-4) 46.4 fL 38.5-51.6 RDW-CV (test code = 788-0) 13.2 % 12.1-15.4 PLT (test code = 777-3) 169 150-328 MPV (test code = 29234-0) 12.2 fL 9.8-13.0 NRBC/100 WBC (test code = 7451283989) 0.0 0.0-10.0 NRBC x10^3 (test code = 9463872696) See_Comment [Automated messa ge] The system which generated this result transmitted reference range: 10*3/?L. The reference range was not used to interpret this result as normal/abnormal. GRAN MAT (NEUT) % (test code = 770-8) 69.1 % IMM GRAN % (test code = 1443810923) 0.20 % LYMPH % (test code = 736-9) 10.0 % MONO % (test code = 5905-5) 14.8 % EOS % (test code = 713-8) 5.7 % BASO % (test code = 706-2) 0.2 % GRAN MAT x10^3(ANC) (test code = 3504215985) 2.89 10*3/uL 1.99-6.95 IMM GRAN x10^3 (test code = 9171395216) 0.00-0.06 LYMPH x10^3 (test code = 731-0) 0.42 10*3/uL 1.09-3.23 L MONO x10^3 (test code = 742-7) 0.62 10*3/uL 0.36-1.02 EOS x10^3 (test code = 711-2) 0.24 10*3/uL 0.06-0.53 BASO x10^3 (test code = 704-7) 0.01-0.09 Lab Interpretation (test code = 22640-8) Abnormal [facility] with Olaa9176-98-83 12:12:29* Test Item Value Reference Range Interpretation Comme nts WBC (test code = 6690-2) 4.19 4.20-10.70 L RBC (test code = 789-8) 2.45 4.26-5.52 L HGB (test code = 718-7) 7.5 g/dL 12.2-16.4 L HCT (test code = 4544-3) 23.6 % 38.4-49.3 L MCV (test code = 787-2) 96.3 fL 81.7-95.6 H MCH (test code = 785-6) 30.6 pg 26.1-32.7 MCHC (test code = 786-4) 31.8 g/dL 31.2-35.0 RDW-SD (test code = 33208-2) 46.4 fL 38.5-51.6 RDW-CV (test code = 788-0) 13.2 % 12.1-15.4 PLT (test code = 777-3) 169 150-328 MPV (test code = 99716-2) 12.2 fL 9.8-13.0 NRBC/100 WBC (test code = 7298035841) 0.0 0.0-10.0 NRBC x10^3 (test code = 9082913334) See_Comment [Automated [place] ge] The system which generated this result transmitted reference range: 10*3/?L. The reference range was not used to interpret this result as normal/abnormal. GRAN MAT (NEUT) % (test code = 770-8) 69.1 % IMM GRAN % (test code = 4788777448) 0.20 % LYMPH % (test code = 736-9) 10.0 % MONO % (test code = 5905-5) 14.8 % EOS % (test code = 713-8) 5.7 % BASO % (test code = 706-2) 0.2 % GRAN MAT x10^3(ANC) (test code = 6139570073) 2.89 10*3/uL 1.99-6.95 IMM GRAN x10^3 (test code = 9140742295) 0.00-0.06 LYMPH x10^3 (test code = 731-0) 0.42 10*3/uL 1.09-3.23 L MONO x10^3 (test code = 742-7) 0.62 10*3/uL 0.36-1.02 EOS x10^3 (test code = 711-2) 0.24 10*3/uL 0.06-0.53 BASO x10^3 (test code = 704-7) 0.01-0.09 Lab Interpretation (test code = 95778-8) Abnormal [facility] GLUCOSE (AUTOMATED)2024-05-09 02:42:21* Test Item Value Reference Range Interpretation Comme nts POCT GLU (test code = 0017614497) 227 mg/dL 70-110 H Lab Interpretation (test cod e = 16424-4) Abnormal [facility] GLUCOSE (AUTOMATED)2024-05-09 02:42:21* Test Item Value Reference Range Interpretation Comme nts POCT GLU (test code = 5564928745) 227 mg/dL 70-110 H Lab Interpretation (test cod e = 90584-7) Abnormal [facility] GLUCOSE (AUTOMATED)2024-05-08 23:03:51* Test Item Value Reference Range Interpretation Comme nts POCT GLU (test code = 3644821612) 157 mg/dL 70-110 H Lab Interpretation (test cod e = 15822-2) Abnormal [facility] GLUCOSE (AUTOMATED)2024-05-08 23:03:51* Test Item Value Reference Range Interpretation Comme nts POCT GLU (test code = 4560002039) 157 mg/dL 70-110 H Lab Interpretation (test cod e = 76405-8) [facility]normal [facility] Core Antibody (HBcAb) IGM 2024-05-08 22:49:01* Test Item Value Reference Range Interpretation Comme nts HBCM Semi-Quantitative (test code = 98984-3) 0.04 KELLE (test code = KELLE) Biotin has been reported to cause a negative bias, interpret results relative to patient's use of biotin. [facility] B Core Antibody (HBcAb) IGM 2024-05-08 22:49:01* Test Item Value Reference Range Interpretation Comme nts HBCM Semi-Quantitative (test code = 19770-1) 0.04 KELLE (test code = KELLE) Biotin has been reported to cause a negative bias, interpret results relative to patient's use of biotin. [facility]land[facility] Ueaqfyex4612-38-38 17:54:58* Test Item Value Reference Range Interpretation Comme nts HCV Ab (test code = 86152-1) Negative HCV Semi-Quantitative (test code = 28540-6) 0.06 [facility] B Surface Antibody (HBsAb)2024-05-08 17:54:58* Test Item Value Reference Range Interpretation Comme nts HBsAB (test code = 6037925886) Negative HBsAb Semi-Quantitative (test code = 8267177594) 0.00 mIU/mL KELLE (test code = KELLE) Interpretation: ?Hepatitis B Surface Antibody ? Negative - Patient is considered to be not immune to infection with HBV. ? ? Positive - Anti-HBs detected at greater than or equal to 12 mIU/mL. ?Patient is considered to be immune to infection with HBV. ? [facility] Ydycydep6469-94-68 17:54:58* Test Item Value Reference Range Interpretation Comme [facility] HCV Ab (test code = 55777-4) Negative HCV Semi-Quantitative (test code = 83891-5) 0.06 [facility] Antibody (HBsAb)2024-05-08 17:54:58* Test Item Value Reference Range Interpretation Comme [facility] HBsAB (test code = 3529029076) Negative HBsAb Semi-Quantitative (test code = 6412244342) 0.00 mIU/mL KELLE (test code = KELLE) Interpretation: ?Hepatitis B Surface Antibody ? Negative - Patient is considered to be not immune to infection with HBV. ? ? Positive - Anti-HBs detected at greater than or equal to 12 mIU/mL. ?Patient is considered to be immune to infection with HBV. ? [facility]cal[facility]2025-01-16 17:51:49* Test Item Value Reference Range Interpretation Comme [facility] Procalcitonin (test code = 6234090712) 0.30 ng/mL <=0.07 H KELLE (test code = KELLE) INTERPRETATION OF PROCALCITONIN RESULTS IN ADULTS >= 18 YEARS OF AGE Initiation and discontinuation of antibiotics on patients with suspected or confirmed Lower Respiratory Tract Infection in Adults >= 18 years of age. + +-------- --------+ + -----+|Procalcitonin |Interpretation ?|Antibiotic ? ? |Considerations ? |ng/mL ? | ?|recommendation | ? + +-------- --------+ + -----+| <0.1 ? | Bacterial ? ? ?| Strongly ? ? ?| ? | ?| infection very | discouraged ? | Overruling: ? | ?| unlikely ? ? ? | ? | ? Clinically unstable ? ? ? + +-------- --------+ + ? High risk for adverse ? ? | <0.25 ?| Bacterial ? ? ?| Discouraged ? | ? outcome ? | ?| infection ? ? ?| ? | ? SEE IMPORTANT NOTE ?| ?| unlikely ? ? ? | ? | ? + +-------- --------+ + -----+| >=0.25 ? ? ? | Bacterial ? ? ?| Encouraged ? ?| ? | ?| infection ? ? ?| ? | ? | ?| likely ? | ? | Consider treatment failure ?+ +------- ---------+ -+ if levels does not decrease | >0.5 ? | Bacterial ? ? ?| Strongly ? ? ?| appropriately ? | ?| infection very | encouraged ? ?| ? | ?| likely ? | ? | ? + +-------- --------+ + -----+ Discontinuation of antibiotics in high-acuity patients with suspected or confirmed sepsis in Adults >= 18 years of age. + +-------- --------+ + -----+|Procalcitonin |Interpretation ?|Antibiotic ? ? |Considerations ? |ng/mL ? | ?|recommendation | ? + +-------- --------+ + -----+| <0.25 ?| Bacterial ? ? ?| Strongly ? ? ?| ? | ?| infection very | discouraged ? | Overruling: ? | ?| unlikely ? ? ? | ? | ? Clinically unstable ? ? ? + +-------- --------+ + ? High risk for adverse ? ? | <0.5 or drop | Bacterial ? ? ?| Discouraged ? | ? outcome ? | >80% from ? ?| infection ? ? ?| ? | ? SEE IMPORTANT NOTE ?| highest PCT ?| unlikely ? ? ? | ? | ? | level ?| ?| ? | ? + +-------- --------+ + -----+| >=0.5 ?| Bacterial ? ? ?| Encouraged ? ?| ? | ?| infection ? ? ?| ? | ? | ?| likely ? | ? | Consider treatment failure ?+ +------- ---------+ -+ if levels does not decrease | >1.0 ? | Bacterial ? ? ?| Strongly ? ? ?| appropriately ? | ?| infection very | encouraged ? ?| ? | ?| likely ? | ? | ? + +-------- --------+ + -----+ Percentage of drop of Procalcitonin calculation for Discontinuation of antibiotics in high-acuity patients with suspected or confirmed sepsis in Adults >= 18 years of age. ? Procalcitonin highest{}-Procalcitonin current{}Delta Procalcitonin = x100% ? Procalcitonin current {} IMPORTANT NOTE: Procalcitonin may be elevated without bacterial infection by physiologic stress related to trauma, humphrey, chronic dialysis, metastatic cancer, surgery in the past seven days, malaria, some fungal infections, and some forms of vasculitis. The interpretation algorithm may not apply to patients with immunosuppression (equivalent of >10 mg of prednisone daily), HIV with CD4 cell count < 350 cells/mm3, active malignancy on systemic chemotherapy, solid organ transplant or hematopoietic stem cell transplantation, or hospital acquired pneumonia. Additionally, some clinical trials of procalcitonin have excluded patients with shock requiring vasopressor use, acute respiratory failure requiring mechanical ventilation, or those with known lung abscess/empyema. For further information please refer to:[email or web address] Lab Interpretation (test code = 57781-2) Abnormal [facility]2025-[facility]16 17:51:49* Test Item Value Reference Range Interpretation Comme nts Procalcitonin (test code = 7555879808) 0.30 ng/mL <=0.07 H KELLE (test code = KELLE) INTERPRETATION OF PROCALCITONIN RESULTS IN ADULTS >= 18 YEARS OF AGE Initiation and discontinuation of antibiotics on patients with suspected or confirmed Lower Respiratory Tract Infection in Adults >= 18 years of age. + +-------- --------+ + -----+|Procalcitonin |Interpretation ?|Antibiotic ? ? |Considerations ? |ng/mL ? | ?|recommendation | ? + +-------- --------+ + -----+| <0.1 ? | Bacterial ? ? ?| Strongly ? ? ?| ? | ?| infection very | discouraged ? | Overruling: ? | ?| unlikely ? ? ? | ? | ? Clinically unstable ? ? ? + +-------- --------+ + ? High risk for adverse ? ? | <0.25 ?| Bacterial ? ? ?| Discouraged ? | ? outcome ? | ?| infection ? ? ?| ? | ? SEE IMPORTANT NOTE ?| ?| unlikely ? ? ? | ? | ? + +-------- --------+ + -----+| >=0.25 ? ? ? | Bacterial ? ? ?| Encouraged ? ?| ? | ?| infection ? ? ?| ? | ? | ?| likely ? | ? | Consider treatment failure ?+ +------- ---------+ -+ if levels does not decrease | >0.5 ? | Bacterial ? ? ?| Strongly ? ? ?| appropriately ? | ?| infection very | encouraged ? ?| ? | ?| likely ? | ? | ? + +-------- --------+ + -----+ Discontinuation of antibiotics in high-acuity patients with suspected or confirmed sepsis in Adults >= 18 years of age. + +-------- --------+ + -----+|Procalcitonin |Interpretation ?|Antibiotic ? ? |Considerations ? |ng/mL ? | ?|recommendation | ? + +-------- --------+ + -----+| <0.25 ?| Bacterial ? ? ?| Strongly ? ? ?| ? | ?| infection very | discouraged ? | Overruling: ? | ?| unlikely ? ? ? | ? | ? Clinically unstable ? ? ? + +-------- --------+ + ? High risk for adverse ? ? | <0.5 or drop | Bacterial ? ? ?| Discouraged ? | ? outcome ? | >80% from ? ?| infection ? ? ?| ? | ? SEE IMPORTANT NOTE ?| highest PCT ?| unlikely ? ? ? | ? | ? | level ?| ?| ? | ? + +-------- --------+ + -----+| >=0.5 ?| Bacterial ? ? ?| Encouraged ? ?| ? | ?| infection ? ? ?| ? | ? | ?| likely ? | ? | Consider treatment failure ?+ +------- ---------+ -+ if levels does not decrease | >1.0 ? | Bacterial ? ? ?| Strongly ? ? ?| appropriately ? | ?| infection very | encouraged ? ?| ? | ?| likely ? | ? | ? + +-------- --------+ + -----+ Percentage of drop of Procalcitonin calculation for Discontinuation of antibiotics in high-acuity patients with suspected or confirmed sepsis in Adults >= 18 years of age. ? Procalcitonin highest{}-Procalcitonin current{}Delta Procalcitonin = x100% ? Procalcitonin current {} IMPORTANT NOTE: Procalcitonin may be elevated without bacterial infection by physiologic stress related to trauma, humphrey, chronic dialysis, metastatic cancer, surgery in the past seven days, malaria, some fungal infections, and some forms of vasculitis. The interpretation algorithm may not apply to patients with immunosuppression (equivalent of >10 mg of prednisone daily), HIV with CD4 cell count < 350 cells/mm3, active malignancy on systemic chemotherapy, solid organ transplant or hematopoietic stem cell transplantation, or hospital acquired pneumonia. Additionally, some clinical trials of procalcitonin have excluded patients with shock requiring vasopressor use, acute respiratory failure requiring mechanical ventilation, or those with known lung abscess/empyema. For further information please refer to:[email or web address] Lab Interpretation (test code = 63139-5) Abnormal [facility] B Surface Antigen (HBsAg)2024-05-08 17:37:35* Test Item Value Reference Range Interpretation Comme nts HBsAg Semi-Quantitative (calderon t code = 5195-3) 0.10 Negative [facility] B Surface Antigen (HBsAg)2024-05-08 17:37:35* Test Item Value Reference Range Interpretation Comme nts HBsAg Semi-Quantitative (calderon t code = 5195-3) 0.10 Negative [facility] GLUCOSE (AUTOMATED)2024-05-08 17:37:20* Test Item Value Reference Range Interpretation Comme nts POCT GLU (test code = 1818493904) 160 mg/dL 70-110 H Lab Interpretation (test cod e = 77680-4) Abnormal [facility] GLUCOSE (AUTOMATED)2024-05-08 17:37:20* Test Item Value Reference Range Interpretation Comme nts POCT GLU (test code = 7568068325) 160 mg/dL 70-110 H Lab Interpretation (test cod e = 63917-1) Abnormal [facility] GLUCOSE (AUTOMATED)2024-05-08 13:33:48* Test Item Value Reference Range Interpretation Comme nts POCT GLU (test code = 4771358997) 73 mg/dL 70-110 Lab Interpretation (test cod e = 28173-0) Normal [facility] GLUCOSE (AUTOMATED)2024-05-08 13:33:48* Test Item Value Reference Range Interpretation Comme nts POCT GLU (test code = 9408580860) 73 mg/dL 70-110 Lab Interpretation (test cod e = 30277-3) Normal [facility] Pdooe4390-94-93 11:23:05* Test Item Value Reference Range Interpretation Comme nts FERRITIN (test code = 8473926697) 77.4 ng/mL 18.0-464.0 KELLE (test code = KELLE) Biotin has been reported to cause a negative bias, interpret results relative to patient's use of biotin. Lab Interpretation (test code = 80334-4) Normal [facility] Cvblr6381-94-32 11:23:05* Test Item Value Reference Range Interpretation Comme nts FERRITIN (test code = 6452799904) 77.4 ng/mL 18.0-464.0 KELLE (test code = KELLE) Biotin has been reported to cause a negative bias, interpret results relative to patient's use of biotin. Lab Interpretation (test code = 55432-2) Normal [facility] Lpgnk8888-54-97 10:57:01* Test Item Value Reference Range Interpretation Comme nts IRON (test code = 0725781023) 36 ug/dL 50-160 L TIBC (test code = 6483064825) 250 ug/dL 250-410 % FE SAT (test code = 0658940677) 14 % 20-50 L Lab Interpretation (test cod e = 88486-2) Abnormal [facility] Unyoj2252-68-71 10:57:01* Test Item Value Reference Range Interpretation Comme nts IRON (test code = 5601184430) 36 ug/dL 50-160 L TIBC (test code = 8623205707) 250 ug/dL 250-410 % FE SAT (test code = 4629407043) 14 % 20-50 L Lab Interpretation (test cod e = 12087-5) Abnormal [facility] Metabolic Panel (NA, K, CL, CO2, GLUCOSE, BUN, CREATININE, CA)2024-05-08 10:39:16* Test Item Value Reference Range Interpretation Comme nts NA (test code = 2701874298) 136 mmol/L 135-145 K (test code = 4691565001) 4.1 mmol/L 3.5-5.0 CL (test code = 8053663082) 106 mmol/L 98-108 CO2 TOTAL (test code = 0649826342) 24 mmol/L 23-31 AGAP (test code = 6106891036) 6 2-16 BUN (test code = 6429474078) 77 mg/dL 7-23 H GLUCOSE (test code = 7492959579) 116 mg/dL 70-110 H CREATININE (test code = 2160-0) 4.71 mg/dL 0.60-1.25 H CALCIUM (test code = 7153460310) 8.3 mg/dL 8.6-10.6 L eGFR (test code = 64390-1) 13.3 mL/min/1.73m2 CKD-EPI eGFR (2020). Assuming creatinine has been stable day-to-day for at least three months, the eGFR indicates Category G5 (<= 14mL/min/1.73 m2) Lab Interpretation (test code = 31810-8) [facility]normal [facility]25-[facility] 10:39:16* Test Item Value Reference Range Interpretation Comme nts MAGNESIUM (test code = 8179627350) 1.9 mg/dL 1.7-2.4 Lab Interpretation (test cod e = 70898-2) Normal [facility] Metabolic Panel (NA, K, CL, CO2, GLUCOSE, BUN, CREATININE, CA)2024-05-08 10:39:16* Test Item Value Reference Range Interpretation Comme nts NA (test code = 5138985335) 136 mmol/L 135-145 K (test code = 6807649137) 4.1 mmol/L 3.5-5.0 CL (test code = 3460165575) 106 mmol/L 98-108 CO2 TOTAL (test code = 2545870073) 24 mmol/L 23-31 AGAP (test code = 2899955363) 6 2-16 BUN (test code = 3734190201) 77 mg/dL 7-23 H GLUCOSE (test code = 9048237014) 116 mg/dL 70-110 H CREATININE (test code = 2160-0) 4.71 mg/dL 0.60-1.25 H CALCIUM (test code = 5849228129) 8.3 mg/dL 8.6-10.6 L eGFR (test code = 46825-4) 13.3 mL/min/1.73m2 CKD-EPI eGFR (2020). Assuming creatinine has been stable day-to-day for at least three months, the eGFR indicates Category G5 (<= 14mL/min/1.73 m2) Lab Interpretation (test code = 58656-8) Abnormal [facility]25-[facility] 10:39:16* Test Item Value Reference Range Interpretation Comme nts MAGNESIUM (test code = 4837368578) 1.9 mg/dL 1.7-2.4 Lab Interpretation (test cod e = 33910-9) Normal [facility] with Nqfa2011-43-03 10:24:58* Test Item Value Reference Range Interpretation Comme nts WBC (test code = 6690-2) 4.62 4.20-10.70 RBC (test code = 789-8) 2.63 4.26-5.52 L HGB (test code = 718-7) 8.3 g/dL 12.2-16.4 L HCT (test code = 4544-3) 25.2 % 38.4-49.3 L MCV (test code = 787-2) 95.8 fL 81.7-95.6 H MCH (test code = 785-6) 31.6 pg 26.1-32.7 MCHC (test code = 786-4) 32.9 g/dL 31.2-35.0 RDW-SD (test code = 55305-9) 45.6 fL 38.5-51.6 RDW-CV (test code = 788-0) 13.1 % 12.1-15.4 PLT (test code = 777-3) 174 150-328 MPV (test code = 70060-9) 11.8 fL 9.8-13.0 NRBC/100 WBC (test code = 9787169955) 0.0 0.0-10.0 NRBC x10^3 (test code = 7159934353) See_Comment [Automated messa ge] The system which generated this result transmitted reference range: 10*3/?L. The reference range was not used to interpret this result as normal/abnormal. GRAN MAT (NEUT) % (test code = 770-8) 73.0 % IMM GRAN % (test code = 7586730750) 0.20 % LYMPH % (test code = 736-9) 10.6 % MONO % (test code = 5905-5) 11.3 % EOS % (test code = 713-8) 4.3 % BASO % (test code = 706-2) 0.6 % GRAN MAT x10^3(ANC) (test code = 2065369701) 3.37 10*3/uL 1.99-6.95 IMM GRAN x10^3 (test code = 5523768642) 0.00-0.06 LYMPH x10^3 (test code = 731-0) 0.49 10*3/uL 1.09-3.23 L MONO x10^3 (test code = 742-7) 0.52 10*3/uL 0.36-1.02 EOS x10^3 (test code = 711-2) 0.20 10*3/uL 0.06-0.53 BASO x10^3 (test code = 704-7) 0.03 10*3/uL 0.01-0.09 Lab Interpretation (test code = 12836-0) Abnormal [facility] with Cgjx6664-29-49 10:24:58* Test Item Value Reference Range Interpretation Comme nts WBC (test code = 6690-2) 4.62 4.20-10.70 RBC (test code = 789-8) 2.63 4.26-5.52 L HGB (test code = 718-7) 8.3 g/dL 12.2-16.4 L HCT (test code = 4544-3) 25.2 % 38.4-49.3 L MCV (test code = 787-2) 95.8 fL 81.7-95.6 H MCH (test code = 785-6) 31.6 pg 26.1-32.7 MCHC (test code = 786-4) 32.9 g/dL 31.2-35.0 RDW-SD (test code = 77131-8) 45.6 fL 38.5-51.6 RDW-CV (test code = 788-0) 13.1 % 12.1-15.4 PLT (test code = 777-3) 174 150-328 MPV (test code = 35345-7) 11.8 fL 9.8-13.0 NRBC/100 WBC (test code = 0060200071) 0.0 0.0-10.0 NRBC x10^3 (test code = 7509808927) See_Comment [Automated messa ge] The system which generated this result transmitted reference range: 10*3/?L. The reference range was not used to interpret this result as normal/abnormal. GRAN MAT (NEUT) % (test code = 770-8) 73.0 % IMM GRAN % (test code = 9308049540) 0.20 % LYMPH % (test code = 736-9) 10.6 % MONO % (test code = 5905-5) 11.3 % EOS % (test code = 713-8) 4.3 % BASO % (test code = 706-2) 0.6 % GRAN MAT x10^3(ANC) (test code = 3266050608) 3.37 10*3/uL 1.99-6.95 IMM GRAN x10^3 (test code = 5604039841) 0.00-0.06 LYMPH x10^3 (test code = 731-0) 0.49 10*3/uL 1.09-3.23 L MONO x10^3 (test code = 742-7) 0.52 10*3/uL 0.36-1.02 EOS x10^3 (test code = 711-2) 0.20 10*3/uL 0.06-0.53 BASO x10^3 (test code = 704-7) 0.03 10*3/uL 0.01-0.09 Lab Interpretation (test code = 54147-9) Abnormal [facility] GLUCOSE (AUTOMATED)2024-05-08 02:16:50* Test Item Value Reference Range Interpretation Comme nts POCT GLU (test code = 8581028362) 203 mg/dL 70-110 H Lab Interpretation (test cod e = 99322-4) Abnormal [facility] GLUCOSE (AUTOMATED)2024-05-08 02:16:50* Test Item Value Reference Range Interpretation Comme nts POCT GLU (test code = 9743908575) 203 mg/dL 70-110 H Lab Interpretation (test cod e = 06092-3) Abnormal [facility] GLUCOSE (AUTOMATED)2024-05-07 22:39:45* Test Item Value Reference Range Interpretation Comme [facility] POCT GLU (test code = 4426777220) 135 mg/dL 70-110 H Lab Interpretation (test cod e = 59470-5) [facility] 22:39:45* Test Item Value Reference Range Interpretation Comme nts POCT GLU (test code = 9624418729) 135 mg/dL 70-110 H Lab Interpretation (test cod e = 19007-2) [facility]normal [facility]2024-[facility]-07 22:28:40* Test Item Value Reference Range Interpretation Comme nts Height (test code = 6721784333) 69 in Weight (test code = 0975259038) 170 lbs Systolic BP (test code = 8835048545) 121 mmHg Diastolic BP (test code = 6785201725) 62 mmHg Heart Rate (test code = 9500669331) 64 bpm BSA (test code = 7533398944) 1.93 m2 LVOT diameter (test code = 7686821053) 1.97 cm LVOT area (test code = 3417949231) 3.00 cm2 LA size (test code = 6506497522) 3.9 cm Ao root diam (test code = 7753764774) 3.50 cm Aortic root (test code = 1282248731) 3.5 cm Ao root annulus (test code = 2791874651) 3.5 cm TR Peak Sylvain (test code = 0087965868) 282.9 cm/s Triscuspid Valve Regurgitation Peak Gradient (test code = 4438742323) 32.1 mmHg E wave decelartion time (test code = 8928651767) 0.22 s MV Peak E Sylvain (test code = 9735274453) 121.1 cm/s MV stenosis pressure 1/2 time (test code = 5919535162) 66.0 ms MV Peak A Sylvain (test code = 7162032405) 76.0 cm/s E/A ratio (test code = 4556965988) 1.59 ratio MV Prop V (test code = 4992422968) 40.60 cm/s MV E/e' septal (test code = 2852788943) 10.2 cm/s LAV(MOD-sp4) (test code = 2716962074) 95.70 mL Tapse (test code = 1279618654) 1.37 cm LVOT stroke volume (test code = 5078961889) 66.10 cm3 LVOT peak sylvain (test code = 8563239882) 100.1 cm/s LVOT mn grad (test code = 4886509012) 2.0 mmHg AV LVOT peak gradient (test code = 8934727519) 4.0 mmHg LVOT peak VTI (test code = 6131535039) 21.8 cm LV V1 mean (test code = 2115738365) 65.70 cm/s Aortic valve mean velocity (test code = 5574043572) 119.7 cm/s Ao peak sylvain (test code = 4788734682) 162.0 cm/s Ao VTI (test code = 9375514618) 34.6 cm AV area by cont VTI (test code = 8977441429) 1.9 cm2 AV area peak sylvain (test code = 3448925952) 1.9 cm2 Ao max PG (test code = 2449317952) 10.50 mm[Hg] AV peak gradient (test code = 2165448247) 10.5 mmHg AV valve area (test code = 5139888202) 1.91 cm2 AV mean gradient (test code = 6328950693) 6.1 mmHg LVIDD (test code = 5368440929) 6.30 cm Left Ventricular End Diastolic Volume by Teichholz Method (test code = 8834142) 201.1 mL IVS (test code = 1100370328) 0.92 cm Interventricular Septum Diastolic Thickness by 2D (test code = 1681991) 0.92 cm LVPWD (test code = 8428044743) 0.94 cm PW (test code = 1182710574) 0.94 cm 0.6-1.1 EF(Teich) (test code = 9851392041) 32.30 % LVIDS (test code = 5925917328) 5.30 cm Left Ventricular End Systolic Volume by Teichholz Method (test code = 8511856) 136.1 mL FS (test code = 0137001237) 16 % EF - 2D (test code = 92039425) 32.30 % Radiology Study observation (narrative) (test code = 79258-0) KELLE (test code = KELLE) ?Left?Ventricle: Left ventricle is mildly dilated. Normal wall thickness. See diagram for wall motion findings. Severely reduced systolic function with a visually estimated EF of 20 - 25%. There is pseudonormal diastolic dysfunction. Elevated left ventricular filling pressure. ?Tricuspid?Valve: Mild transvalvular regurgitation. Right ventricular systolic pressure is 35-40 mmHg. ?RA pressure is 0-5 mmHg. ?Left?Atrium: Left atrium is mildly dilated. ?Right?Ventricle: Right ventricle is mildly dilated. Mildly reduced systolic function. Left VentricleLeft ventricle is mildly dilated. Normal wall thickness. See diagram for wall motion findings. Severely reduced systolic function with a visually estimated EF of 20 - 25%. There is pseudonormal diastolic dysfunction. Elevated left ventricular filling pressure.Right VentricleRight ventricle is mildly dilated. Mildly reduced systolic function. There is a pacemaker lead in the right ventricle.Left AtriumLeft atrium is mildly dilated.Right AtriumRight atrium is dilated. Lead present in the right atrium.IVC/SVCIVC diameter is less than or equal to 21 mm and decreases greater than 50% during inspiration; therefore the estimated right atrial pressure is normal (~0-5 mmHg).Mitral ValveMitral valve structure is normal. Trace transvalvular regurgitation.Tricusp id ValveTricuspid valve structure is normal. Mild transvalvular regurgitation. Right ventricular systolic pressure is 35-40 mmHg. RA pressure is 0-5 mmHg.Aortic ValveTricuspid.Pulmon ic ValveNot well visualized. Trace transvalvular regurgitation.Ascendi ng AortaNormal sized aorta.PericardiumNo pericardial effusion.Study DetailsStudy quality was adequate. A complete echocardiogram was performed using 2D, color flow Doppler and spectral Doppler. 5 mL of Lumason ultrasound enhancing agent used.Wall Scoring BaselineScore Index: 2.47The following segments are akinetic: mid anteroseptal, mid inferoseptal, mid inferior, apical anterior, apical septal, apical inferior, apical lateral and apex.The following segments are hypokinetic: basal anterior, basal anteroseptal, basal inferoseptal, basal inferior, basal inferolateral, basal anterolateral, mid anterior, mid inferolateral and mid anterolateral. [facility] 22:28:40* Test Item Value Reference Range Interpretation Comme nts Height (test code = 1537040735) 69 in Weight (test code = 9572873381) 170 lbs Systolic BP (test code = 6249865828) 121 mmHg Diastolic BP (test code = 3802365309) 62 mmHg Heart Rate (test code = 4472364944) 64 bpm BSA (test code = 0218548527) 1.93 m2 LVOT diameter (test code = 9973133814) 1.97 cm LVOT area (test code = 3204448517) 3.00 cm2 LA size (test code = 8768966283) 3.9 cm Ao root diam (test code = 3201402914) 3.50 cm Aortic root (test code = 6837500815) 3.5 cm Ao root annulus (test code = 4473793930) 3.5 cm TR Peak Sylvain (test code = 0025093905) 282.9 cm/s Triscuspid Valve Regurgitation Peak Gradient (test code = 3496093927) 32.1 mmHg E wave decelartion time (test code = 7773550423) 0.22 s MV Peak E Sylvain (test code = 9820254800) 121.1 cm/s MV stenosis pressure 1/2 time (test code = 2953319312) 66.0 ms MV Peak A Sylvain (test code = 2726968343) 76.0 cm/s E/A ratio (test code = 7164913176) 1.59 ratio MV Prop V (test code = 2202067736) 40.60 cm/s MV E/e' septal (test code = 7400609131) 10.2 cm/s LAV(MOD-sp4) (test code = 0181408829) 95.70 mL Tapse (test code = 5041621325) 1.37 cm LVOT stroke volume (test code = 1657324344) 66.10 cm3 LVOT peak sylvain (test code = 6857743621) 100.1 cm/s LVOT mn grad (test code = 5905962700) 2.0 mmHg AV LVOT peak gradient (test code = 8712961522) 4.0 mmHg LVOT peak VTI (test code = 9441052989) 21.8 cm LV V1 mean (test code = 8652677038) 65.70 cm/s Aortic valve mean velocity (test code = 1503636450) 119.7 cm/s Ao peak sylvain (test code = 3538782518) 162.0 cm/s Ao VTI (test code = 4913503724) 34.6 cm AV area by cont VTI (test code = 1785487577) 1.9 cm2 AV area peak sylvain (test code = 3994103541) 1.9 cm2 Ao max PG (test code = 7777483339) 10.50 mm[Hg] AV peak gradient (test code = 8628274799) 10.5 mmHg AV valve area (test code = 9876707515) 1.91 cm2 AV mean gradient (test code = 0137038380) 6.1 mmHg LVIDD (test code = 4464285764) 6.30 cm Left Ventricular End Diastolic Volume by Teichholz Method (test code = 7716314) 201.1 mL IVS (test code = 3605110893) 0.92 cm Interventricular Septum Diastolic Thickness by 2D (test code = 9028029) 0.92 cm LVPWD (test code = 8657930604) 0.94 cm PW (test code = 2000022983) 0.94 cm 0.6-1.1 EF(Teich) (test code = 9688846282) 32.30 % LVIDS (test code = 0582610300) 5.30 cm Left Ventricular End Systolic Volume by Teichholz Method (test code = 6321078) 136.1 mL FS (test code = 0677093317) 16 % EF - 2D (test code = 63091375) 32.30 % Radiology Study observation (narrative) (test code = 33446-4) KELLE (test code = KELLE) ?Left?Ventricle: Left ventricle is mildly dilated. Normal wall thickness. See diagram for wall motion findings. Severely reduced systolic function with a visually estimated EF of 20 - 25%. There is pseudonormal diastolic dysfunction. Elevated left ventricular filling pressure. ?Tricuspid?Valve: Mild transvalvular regurgitation. Right ventricular systolic pressure is 35-40 mmHg. ?RA pressure is 0-5 mmHg. ?Left?Atrium: Left atrium is mildly dilated. ?Right?Ventricle: Right ventricle is mildly dilated. Mildly reduced systolic function. Left VentricleLeft ventricle is mildly dilated. Normal wall thickness. See diagram for wall motion findings. Severely reduced systolic function with a visually estimated EF of 20 - 25%. There is pseudonormal diastolic dysfunction. Elevated left ventricular filling pressure.Right VentricleRight ventricle is mildly dilated. Mildly reduced systolic function. There is a pacemaker lead in the right ventricle.Left AtriumLeft atrium is mildly dilated.Right AtriumRight atrium is dilated. Lead present in the right atrium.IVC/SVCIVC diameter is less than or equal to 21 mm and decreases greater than 50% during inspiration; therefore the estimated right atrial pressure is normal (~0-5 mmHg).Mitral ValveMitral valve structure is normal. Trace transvalvular regurgitation.Tricusp id ValveTricuspid valve structure is normal. Mild transvalvular regurgitation. Right ventricular systolic pressure is 35-40 mmHg. RA pressure is 0-5 mmHg.Aortic ValveTricuspid.Pulmon ic ValveNot well visualized. Trace transvalvular regurgitation.Ascendi ng AortaNormal sized aorta.PericardiumNo pericardial effusion.Study DetailsStudy quality was adequate. A complete echocardiogram was performed using 2D, color flow Doppler and spectral Doppler. 5 mL of Lumason ultrasound enhancing agent used.Wall Scoring BaselineScore Index: 2.47The following segments are akinetic: mid anteroseptal, mid inferoseptal, mid inferior, apical anterior, apical septal, apical inferior, apical lateral and apex.The following segments are hypokinetic: basal anterior, basal anteroseptal, basal inferoseptal, basal inferior, basal inferolateral, basal anterolateral, mid anterior, mid inferolateral and mid anterolateral. [facility] with [id number] 19:46:22EXAMINATION: ULTRASOUND GUIDED THORACENTESIS HISTORY/INDICATION: 63 years-old male with left pleural effusion. FACULTY: Brennan Nesbitt M.D. SEDATION: The patient did not require conscious sedation forthe procedure. Local lidocaine was administered. TECHNIQUE: The risks, benefits and alternatives were discussed and informedconsent was obtained. Prior to beginning the procedure, Leander Protocolwas performed to confirm the patient's identity and the planned procedure.Maximum sterile barriers including cap, mask, hand hygiene, sterile gloves,sterile gown, large sterile drape and cutaneous antisepsis were used. The patient's left posterior chest was examined with ultrasound and freeflowing pleural fluid was identified. The skin overlying this area wasanesthetized with 1% lidocaine. Using real-time ultrasound guidance a Yuehneedle was advanced into the pleural space. Approximately 1800 cc of serous fluid was drained. Samples were sent to lab for analysis At the conclusion of the procedure the catheter was removed and a steriledressing applied to the site. ESTIMATED BLOOD LOSS: Minimal,less than 1 cc. CONDITION: Unchanged. DISCHARGED TO: Performed at bedside. FINDINGS: Ultrasound demonstrated a large amount of pleural fluid.[facility] Thoracentesis with [id number] 19:46:22EXAMINATION: ULTRASOUND GUIDED THORACENTESIS HISTORY/INDICATION: 63 years-old male with left pleural effusion. FACULTY: Brennan Nesbitt M.D. SEDATION: The patient did not require conscious sedation forthe procedure. Local lidocaine was administered. TECHNIQUE: The risks, benefits and alternatives were discussed and informedconsent was obtained. Prior to beginning the procedure, Leander Protocolwas performed to confirm the patient's identity and the planned procedure.Maximum sterile barriers including cap, mask, hand hygiene, sterile gloves,sterile gown, large sterile drape and cutaneous antisepsis were used. The patient's left posterior chest was examined with ultrasound and freeflowing pleural fluid was identified. The skin overlying this area wasanesthetized with 1% lidocaine. Using real-time ultrasound guidance a Yuehneedle was advanced into the pleural space. Approximately 1800 cc of serous fluid was drained. Samples were sent to lab for analysis At the conclusion of the procedure the catheter was removed and a steriledressing applied to the site. ESTIMATED BLOOD LOSS: Minimal,less than 1 cc. CONDITION: Unchanged. DISCHARGED TO: Performed at bedside. FINDINGS: Ultrasound demonstrated a large amount of pleural fluid.[facility] GLUCOSE (AUTOMATED)2024-05-07 17:29:49* Test Item Value Reference Range Interpretation Comme [facility] POCT GLU (test code = 3804692674) 122 mg/dL 70-110 H Lab Interpretation (test cod e = 38033-8) Abnormal [facility] GLUCOSE (AUTOMATED)2024-05-07 17:29:49* Test Item Value Reference Range Interpretation Comme [facility] POCT GLU (test code = 5648998940) 122 mg/dL 70-110 H Lab Interpretation (test cod e = 98873-0) Abnormal [facility] 1 [id number] 16:04:41HISTORY: Post paracentesis. TECHNIQUE: Portable AP view of the chest is obtained. FINDINGS: S/P left thoracentesis is noted with decreased left-sided pleuraleffusion. There is small residual left pleural effusion. Small rightpleural effusion noted. No pneumothorax. Cardiac size is upper normal. No significant pulmonary edema. Midlinesternotomy sutures and unipolar pacemaker inserted through left s ubclaviannoted with its tip in right ventricle region. 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 CONCLUSIONS: S/P left thoracentesis with small residual bilateral pleuraleffusion. No pneumothorax. [facility] 1 [id number] 16:04:41HISTORY: Post paracentesis. TECHNIQUE: Portable AP view of the chest is obtained. FINDINGS: S/P left thoracentesis is noted with decreased left-sided pleuraleffusion. There is small residual left pleural effusion. Small rightpleural effusion noted. No pneumothorax. Cardiac size is upper normal. No significant pulmonary edema. Midlinesternotomy sutures and unipolar pacemaker inserted through left s ubclaviannoted with its tip in right ventricle region. 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 CONCLUSIONS: S/P left thoracentesis with small residual bilateral pleuraleffusion. No pneumothorax. [facility] GLUCOSE (AUTOMATED)2024-05-07 14:04:49* Test Item Value Reference Range Interpretation Comme [facility] POCT GLU (test code = 8799126768) 104 mg/dL 70-110 Lab Interpretation (test cod e = 63735-1) Normal [facility] GLUCOSE (AUTOMATED)2024-05-07 14:04:49* Test Item Value Reference Range Interpretation Comme [facility] POCT GLU (test code = 2378054532) 104 mg/dL 70-110 Lab Interpretation (test cod e = 68060-1) Normal [facility] [id number]-[id number] 13:27:29* Test Item Value Reference Range Interpretation Comme [facility] NT-proBNP (test code = 64480-0) 39504 pg/mL <=125 H KELLE (test code = KELLE) Positive: Heart Failure Likely Lab Interpretation (test code = 74558-7) Abnormal [facility] Sve-Eyk2627-04-15 13:27:29* Test Item Value Reference Range Interpretation Comme nts NT-proBNP (test code = 83232-4) 71581 pg/mL <=125 H KELLE (test code = KELLE) Positive: Heart Failure Likely Lab Interpretation (test code = 57747-1) Abnormal [facility] [id number] 13:13:55* Test Item Value Reference Range Interpretation Comme nts TROPONIN I (test code = 9116141345) 0.035 ng/mL <=0.034 H KELLE (test code = KELLE) Reference (Normal) Range (defined by the 99th percentile reference limit): <= 0.034 ng/mL Note: Cardiac troponin begins to rise 3-4 hours after the onset of ischemia. Repeat in 4-6 hours if the sample was drawn within 3-4 hours of the onset of the symptom and found normal. Diagnosis of myocardial injury is made with acute changes in cTn concentrations with at least one serial sample above the 99th percentile upper reference limit (URL), taken together with the patient's clinical presentation. Biotin has been reported to cause a negative bias, interpret results relative to patient's use of biotin. Lab Interpretation (test code = 76233-5) Abnormal [facility] [id number] 13:13:55* Test Item Value Reference Range Interpretation Comme nts TROPONIN I (test code = 4866154797) 0.035 ng/mL <=0.034 H KELLE (test code = KELLE) Reference (Normal) Range (defined by the 99th percentile reference limit): <= 0.034 ng/mL Note: Cardiac troponin begins to rise 3-4 hours after the onset of ischemia. Repeat in 4-6 hours if the sample was drawn within 3-4 hours of the onset of the symptom and found normal. Diagnosis of myocardial injury is made with acute changes in cTn concentrations with at least one serial sample above the 99th percentile upper reference limit (URL), taken together with the patient's clinical presentation. Biotin has been reported to cause a negative bias, interpret results relative to patient's use of biotin. Lab Interpretation (test code = 94414-0) Abnormal [facility] Metabolic Panel (NA, K, CL, CO2, GLUCOSE, BUN, CREATININE, CA)2024-05-07 13:06:33* Test Item Value Reference Range Interpretation Comme nts NA (test code = 3910882062) 139 mmol/L 135-145 K (test code = 4030527461) 4.2 mmol/L 3.5-5.0 CL (test code = 8195313188) 108 mmol/L 98-108 CO2 TOTAL (test code = 9246312790) 25 mmol/L 23-31 AGAP (test code = 6246933049) 6 2-16 BUN (test code = 4021847242) 75 mg/dL 7-23 H GLUCOSE (test code = 3036836668) 85 mg/dL 70-110 CREATININE (test code = 2160-0) 4.08 mg/dL 0.60-1.25 H CALCIUM (test code = 1061092527) 8.6 mg/dL 8.6-10.6 eGFR (test code = 53986-5) 15.7 mL/min/1.73m2 CKD-EPI eGFR (2020). Assuming creatinine has been stable day-to-day for at least three months, the eGFR indicates Category G4 (15 - 29 mL/min/1.73 m2) Lab Interpretation (test code = 05082-6) Abnormal [facility]2025-[facility]-15 13:06:33* Test Item Value Reference Range Interpretation Comme nts MAGNESIUM (test code = 0225633475) 1.9 mg/dL 1.7-2.4 Lab Interpretation (test cod e = 20348-0) Normal [facility] (NA, K, CL, CO2, GLUCOSE, BUN, CREATININE, CA)2024-05-07 13:06:33* Test Item Value Reference Range Interpretation Comme nts NA (test code = 0223077826) 139 mmol/L 135-145 K (test code = 1525655715) 4.2 mmol/L 3.5-5.0 CL (test code = 6411403437) 108 mmol/L 98-108 CO2 TOTAL (test code = 1600553772) 25 mmol/L 23-31 AGAP (test code = 3298927751) 6 2-16 BUN (test code = 7867981611) 75 mg/dL 7-23 H GLUCOSE (test code = 1902600119) 85 mg/dL 70-110 CREATININE (test code = 2160-0) 4.08 mg/dL 0.60-1.25 H CALCIUM (test code = 9631786707) 8.6 mg/dL 8.6-10.6 eGFR (test code = 08853-7) 15.7 mL/min/1.73m2 CKD-EPI eGFR (2020). Assuming creatinine has been stable day-to-day for at least three months, the eGFR indicates Category G4 (15 - 29 mL/min/1.73 m2) Lab Interpretation (test code = 72735-9) Abnormal [facility]2025-01-15 13:06:33* Test Item Value Reference Range Interpretation Comme nts MAGNESIUM (test code = 3053817537) 1.9 mg/dL 1.7-2.4 Lab Interpretation (test cod e = 86563-9) Normal [facility]osph[facility]2025-01-15 13:05:53* Test Item Value Reference Range Interpretation Comme nts PHOSPHORUS (test code = 4228545265) 4.3 mg/dL 2.5-5.0 Lab Interpretation (test cod e = 23148-6) Normal [facility]2025-01-15 13:05:53* Test Item Value Reference Range Interpretation Comme nts PHOSPHORUS (test code = 5314510171) 4.3 mg/dL 2.5-5.0 Lab Interpretation (test cod e = 22813-0) Normal [facility]land[facility]b without [id number] 12:16:04* Test Item Value Reference Range Interpretation Comme nts WBC (test code = 6690-2) 4.69 4.20-10.70 RBC (test code = 789-8) 2.74 4.26-5.52 L HGB (test code = 718-7) 8.6 g/dL 12.2-16.4 L HCT (test code = 4544-3) 25.9 % 38.4-49.3 L MCH (test code = 785-6) 31.4 pg 26.1-32.7 MCV (test code = 787-2) 94.5 fL 81.7-95.6 MCHC (test code = 786-4) 33.2 g/dL 31.2-35.0 PLT (test code = 777-3) 174 150-328 MPV (test code = 74353-3) 11.4 fL 9.8-13.0 RDW-CV (test code = 788-0) 13.2 % 12.1-15.4 RDW-SD (test code = 41486-4) 45.6 fL 38.5-51.6 NRBC x10^3 (test code = 4564388097) See_Comment [Automated [place] ge] The system which generated this result transmitted reference range: 10*3/?L. The reference range was not used to interpret this result as normal/abnormal. NRBC/100 WBC (test code = 8146281615) 0.0 0.0-10.0 IPF % (test code = 0180264718) Lab Interpretation (test code = 93945-7) Abnormal [facility] without [id number] 12:16:04* Test Item Value Reference Range Interpretation Comme nts WBC (test code = 6690-2) 4.69 4.20-10.70 RBC (test code = 789-8) 2.74 4.26-5.52 L HGB (test code = 718-7) 8.6 g/dL 12.2-16.4 L HCT (test code = 4544-3) 25.9 % 38.4-49.3 L MCH (test code = 785-6) 31.4 pg 26.1-32.7 MCV (test code = 787-2) 94.5 fL 81.7-95.6 MCHC (test code = 786-4) 33.2 g/dL 31.2-35.0 PLT (test code = 777-3) 174 150-328 MPV (test code = 54817-5) 11.4 fL 9.8-13.0 RDW-CV (test code = 788-0) 13.2 % 12.1-15.4 RDW-SD (test code = 47706-6) 45.6 fL 38.5-51.6 NRBC x10^3 (test code = 6167569064) See_Comment [Automated [place]yokey[place] ge] The system which generated this result transmitted reference range: 10*3/?L. The reference range was not used to interpret this result as normal/abnormal. NRBC/100 WBC (test code = 7820102730) 0.0 0.0-10.0 IPF % (test code = 3113477472) Lab Interpretation (test code = 97170-1) Abnormal [facility]land[facility]cosylated Hemoglobin (A1C)2024-05-07 04:04:13* Test Item Value Reference Range Interpretation Comme nts HGB A1C (test code = 4548-4) 6.6 % 4.0-5.7 H KELLE (test code = KELLE) Reference RangesNormal: <5.7%Prediabetes: 5.7 - 6.4%Diabetes: > 6.5% Lab Interpretation (test code = 99346-7) Abnormal [facility]land[facility]cosylated Hemoglobin (A1C)2024-05-07 04:04:13* Test Item Value Reference Range Interpretation Comme nts HGB A1C (test code = 4548-4) 6.6 % 4.0-5.7 H KELLE (test code = KELLE) Reference RangesNormal: <5.7%Prediabetes: 5.7 - 6.4%Diabetes: > 6.5% Lab Interpretation (test code = 17239-3) Abnormal [facility] 1 [id number] 03:19:07EXAM: XR CHEST 1 VW HISTORY: 63 years-old Male; dyspnea COMPARISON: CXR dated 01/30/2024 FINDINGS: Lines/Devices: Unchanged position of unipolar pacemaker projecting over theleft chest wall with its lead projecting over the right ventricle with thetip partially out of the [id number].. Lungs: The lung volumes are normal on the right and decreased on the left.Mild interval worsening of moderate-sized left pleural effusion withassociated atelectasis. Right-sided patchy infrahilar opacities partiallyobscure the right heart border. Biapical pleural parenchymal scarring isseen. No pneumothorax. Heart/Mediastinum: The cardiomediastinal silhouette is partially obscured. Bones and soft tissues: Noacute osseous findings are detected. Sternotomywires appear intact and unchanged in position [facility] 1 [id number] 03:19:07EXAM: XR CHEST 1 VW HISTORY: 63 years-old Male; dyspnea COMPARISON: CXR dated 01/30/2024 FINDINGS: Lines/Devices: Unchanged position of unipolar pacemaker projecting over theleft chest wall with its lead projecting over the right ventricle with thetip partially out of the [id number]-ek-jffa.. Lungs: The lung volumes are normal on the right and decreased on the left.Mild interval worsening of moderate-sized left pleural effusion withassociated atelectasis. Right-sided patchy infrahilar opacities partiallyobscure the right heart border. Biapical pleural parenchymal scarring isseen. No pneumothorax. Heart/Mediastinum: The cardiomediastinal silhouette is partially obscured. Bones and soft tissues: Noacute osseous findings are detected. Sternotomywires appear intact and unchanged in position [facility] GLUCOSE (AUTOMATED)2024-05-07 02:36:45* Test Item Value Reference Range Interpretation Comme nts POCT GLU (test code = 9672142943) 186 mg/dL 70-110 H Lab Interpretation (test cod e = 32586-8) Abnormal [facility] GLUCOSE (AUTOMATED)2024-05-07 02:36:45* Test Item Value Reference Range Interpretation Comme nts POCT GLU (test code = 2202462942) 186 mg/dL 70-110 H Lab Interpretation (test cod e = 65360-0) [facility]* Test Item Value Reference Range Interpretation Comme nts MAGNESIUM (test code = 5005906439) 1.9 mg/dL 1.7-2.4 Lab Interpretation (test cod e = 29637-8) [facility]:06:54* Test Item Value Reference Range Interpretation Comme nts PHOSPHORUS (test code = 6295626018) 4.4 mg/dL 2.5-5.0 Lab Interpretation (test cod e = 52657-0) [facility]:06:54* Test Item Value Reference Range Interpretation Comme nts MAGNESIUM (test code = 3408024606) 1.9 mg/dL 1.7-2.4 Lab Interpretation (test cod e = 73799-1) Normal [facility] 02:06:54* Test Item Value Reference Range Interpretation Comme nts PHOSPHORUS (test code = 7003442409) 4.4 mg/dL 2.5-5.0 Lab Interpretation (test cod e = 14975-2) Normal [facility] [id number] 01:43:06* Test Item Value Reference Range Interpretation Comme nts NT-proBNP (test code = 03849-7) 71588 pg/mL <=125 H KELLE (test code = KELLE) Positive: Heart Failure Likely Lab Interpretation (test code = 33195-2) [facility]normal [facility] [id number] 01:43:06* Test Item Value Reference Range Interpretation Comme nts NT-proBNP (test code = 18469-1) 94577 pg/mL <=125 H KELLE (test code = KELLE) Positive: Heart Failure Likely Lab Interpretation (test code = 24909-9) [id number]:01:47* Test Item Value Reference Range Interpretation Comme nts TROPONIN I (test code = 4836701234) 0.019 ng/mL <=0.034 KELLE (test code = KELLE) Reference (Normal) Range (defined by the 99th percentile reference limit): <= 0.034 ng/mL Note: Cardiac troponin begins to rise 3-4 hours after the onset of ischemia. Repeat in 4-6 hours if the sample was drawn within 3-4 hours of the onset of the symptom and found normal. Diagnosis of myocardial injury is made with acute changes in cTn concentrations with at least one serial sample above the 99th percentile upper reference limit (URL), taken together with the patient's clinical presentation. Biotin has been reported to cause a negative bias, interpret results relative to patient's use of biotin. Lab Interpretation (test code = 66254-3) Normal [facility] [id number] 01:01:47* Test Item Value Reference Range Interpretation Comme nts TROPONIN I (test code = 2204594195) 0.019 ng/mL <=0.034 KELLE (test code = KELLE) Reference (Normal) Range (defined by the 99th percentile reference limit): <= 0.034 ng/mL Note: Cardiac troponin begins to rise 3-4 hours after the onset of ischemia. Repeat in 4-6 hours if the sample was drawn within 3-4 hours of the onset of the symptom and found normal. Diagnosis of myocardial injury is made with acute changes in cTn concentrations with at least one serial sample above the 99th percentile upper reference limit (URL), taken together with the patient's clinical presentation. Biotin has been reported to cause a negative bias, interpret results relative to patient's use of biotin. Lab Interpretation (test code = 08342-8) Normal [facility]. METABOLIC PANEL (17500)2024-05-07 00:50:24* Test Item Value Reference Range Interpretation Comme nts NA (test code = 1849386842) 141 mmol/L 135-145 K (test code = 0977856912) 4.6 mmol/L 3.5-5.0 CL (test code = 9016539053) 107 mmol/L 98-108 CO2 TOTAL (test code = 0981363452) 24 mmol/L 23-31 AGAP (test code = 1194024438) 10 2-16 BUN (test code = 2100857945) 72 mg/dL 7-23 H GLUCOSE (test code = 6185144946) 223 mg/dL 70-110 H CREATININE (test code = 2160-0) 4.11 mg/dL 0.60-1.25 H TOTAL BILI (test code = 5751993416) 0.7 mg/dL 0.1-1.1 CALCIUM (test code = 2065496757) 9.5 mg/dL 8.6-10.6 T PROTEIN (test code = 0628261759) 8.7 g/dL 6.3-8.2 H ALBUMIN (test code = 1179481633) 4.5 g/dL 3.5-5.0 ALK PHOS (test code = 7131249833) 127 U/L 34-122 H ALTv (test code = 1742-6) 18 U/L 5-50 AST(SGOT) (test code = 5340031833) 26 U/L 13-40 eGFR (test code = 38293-1) 15.6 mL/min/1.73m2 CKD-EPI eGFR (2020). Assuming creatinine has been stable day-to-day for at least three months, the eGFR indicates Category G4 (15 - 29 mL/min/1.73 m2) Lab Interpretation (test code = 41196-6) Abnormal [facility]. METABOLIC PANEL (19727)2024-05-07 00:50:24* Test Item Value Reference Range Interpretation Comme nts NA (test code = 1980821624) 141 mmol/L 135-145 K (test code = 7959028392) 4.6 mmol/L 3.5-5.0 CL (test code = 4545518042) 107 mmol/L 98-108 CO2 TOTAL (test code = 2665913879) 24 mmol/L 23-31 AGAP (test code = 0064891173) 10 2-16 BUN (test code = 9261386645) 72 mg/dL 7-23 H GLUCOSE (test code = 9223275190) 223 mg/dL 70-110 H CREATININE (test code = 2160-0) 4.11 mg/dL 0.60-1.25 H TOTAL BILI (test code = 9267901930) 0.7 mg/dL 0.1-1.1 CALCIUM (test code = 8020402543) 9.5 mg/dL 8.6-10.6 T PROTEIN (test code = 0067675937) 8.7 g/dL 6.3-8.2 H ALBUMIN (test code = 1147167844) 4.5 g/dL 3.5-5.0 ALK PHOS (test code = 6649189586) 127 U/L 34-122 H ALTv (test code = 1742-6) 18 U/L 5-50 AST(SGOT) (test code = 2658497848) 26 U/L 13-40 eGFR (test code = 40501-6) 15.6 mL/min/1.73m2 CKD-EPI eGFR (2020). Assuming creatinine has been stable day-to-day for at least three months, the eGFR indicates Category G4 (15 - 29 mL/min/1.73 m2) Lab Interpretation (test code = 61460-7) Abnormal [facility] WITH [id number] 00:36:04* Test Item Value Reference Range Interpretation Comme nts WBC (test code = 6690-2) 5.66 4.20-10.70 RBC (test code = 789-8) 3.44 4.26-5.52 L HGB (test code = 718-7) 10.8 g/dL 12.2-16.4 L HCT (test code = 4544-3) 33.3 % 38.4-49.3 L MCV (test code = 787-2) 96.8 fL 81.7-95.6 H MCH (test code = 785-6) 31.4 pg 26.1-32.7 MCHC (test code = 786-4) 32.4 g/dL 31.2-35.0 RDW-SD (test code = 91694-9) 47.1 fL 38.5-51.6 RDW-CV (test code = 788-0) 13.2 % 12.1-15.4 PLT (test code = 777-3) 202 150-328 MPV (test code = 20862-8) 11.6 fL 9.8-13.0 NRBC/100 WBC (test code = 6039697387) 0.0 0.0-10.0 NRBC x10^3 (test code = 9448538075) See_Comment [Automated messa ge] The system which generated this result transmitted reference range: 10*3/?L. The reference range was not used to interpret this result as normal/abnormal. GRAN MAT (NEUT) % (test code = 770-8) 79.4 % IMM GRAN % (test code = 6552676845) 0.40 % LYMPH % (test code = 736-9) 8.5 % MONO % (test code = 5905-5) 8.5 % EOS % (test code = 713-8) 2.7 % BASO % (test code = 706-2) 0.5 % GRAN MAT x10^3(ANC) (test code = 1446196347) 4.50 10*3/uL 1.99-6.95 IMM GRAN x10^3 (test code = 9533321767) 0.00-0.06 LYMPH x10^3 (test code = 731-0) 0.48 10*3/uL 1.09-3.23 L MONO x10^3 (test code = 742-7) 0.48 10*3/uL 0.36-1.02 EOS x10^3 (test code = 711-2) 0.15 10*3/uL 0.06-0.53 BASO x10^3 (test code = 704-7) 0.03 10*3/uL 0.01-0.09 Lab Interpretation (test code = 98495-3) Abnormal [facility] WITH [id number] 00:36:04* Test Item Value Reference Range Interpretation Comme nts WBC (test code = 6690-2) 5.66 4.20-10.70 RBC (test code = 789-8) 3.44 4.26-5.52 L HGB (test code = 718-7) 10.8 g/dL 12.2-16.4 L HCT (test code = 4544-3) 33.3 % 38.4-49.3 L MCV (test code = 787-2) 96.8 fL 81.7-95.6 H MCH (test code = 785-6) 31.4 pg 26.1-32.7 MCHC (test code = 786-4) 32.4 g/dL 31.2-35.0 RDW-SD (test code = 07610-1) 47.1 fL 38.5-51.6 RDW-CV (test code = 788-0) 13.2 % 12.1-15.4 PLT (test code = 777-3) 202 150-328 MPV (test code = 54186-5) 11.6 fL 9.8-13.0 NRBC/100 WBC (test code = 6871233021) 0.0 0.0-10.0 NRBC x10^3 (test code = 4733301143) See_Comment [Automated messa ge] The system which generated this result transmitted reference range: 10*3/?L. The reference range was not used to interpret this result as normal/abnormal. GRAN MAT (NEUT) % (test code = 770-8) 79.4 % IMM GRAN % (test code = 5004252157) 0.40 % LYMPH % (test code = 736-9) 8.5 % MONO % (test code = 5905-5) 8.5 % EOS % (test code = 713-8) 2.7 % BASO % (test code = 706-2) 0.5 % GRAN MAT x10^3(ANC) (test code = 5151674638) 4.50 10*3/uL 1.99-6.95 IMM GRAN x10^3 (test code = 0526184593) 0.00-0.06 LYMPH x10^3 (test code = 731-0) 0.48 10*3/uL 1.09-3.23 L MONO x10^3 (test code = 742-7) 0.48 10*3/uL 0.36-1.02 EOS x10^3 (test code = 711-2) 0.15 10*3/uL 0.06-0.53 BASO x10^3 (test code = 704-7) 0.03 10*3/uL 0.01-0.09 Lab Interpretation (test code = 52945-5) [facility] [id number] 20:43:39Exam: XR LUMBAR SPINE 3 VW, 02/18/2024 2:15 PM. Ordering Physician: JAKI DOWNS. History: back pain . Technique: XR LUMBAR SPINE 3 VW Comparison: None. Findings: Preserved vertebral body heights. No acute fracture. Degenerative changesas evidence by endplate osteophyte formation of L1-L5. Preserved disc heights. No traumatic malalignment. Soft tissues are unremarkable.[facility] [id number] 20:19:06XR THORACIC SPINE 2 VW HISTORY: back pain COMPARISON: 03/09/2018 FINDINGS:Thoracic:The vertebral bodies are normal in height and alignment within thelimitations of shoulder girdle overlap which obscures upper thoraciclevels. Cardiomegaly and left pleural effusion. Prior CABG. Left chest wallAICD. Lumbar:There is straightening of the normal lumbar lordosis. The vertebral bodiesare normal in heightand alignment. Paravertebral and to lesser extentanterior near bridging osteophytosis. The sacral and visualized pelviccortices are intact.[facility] METABOL[facility] [id number] 00:00:00* Test Item Value Reference Range Interpretation Comme nts NUCLEATED RBCS (test code = 58916-3) 0.0 /100 WBC'S See_Comment [Automated message] The system which generated this result transmitted reference range: 0.0 /100 WBC'S. The reference range was not used to interpret this result as normal/abnormal. ABSOLUTE EOSINOPHILS (test code = 89365-3) 0.41 K/UL See_Comment [Automated message] The system which generated this result transmitted reference range: 0.00-0.50 K/UL. The reference range was not used to interpret this result as normal/abnormal. ABSOLUTE LYMPHOCYTES (test code = 01575-0) 0.60 K/UL See_Comment L [Automated message] The system which generated this result transmitted reference range: 1.00-4.00 K/UL. The reference range was not used to interpret this result as normal/abnormal. ABSOLUTE MONOCYTES (test code = 24983-6) 0.47 K/UL See_Comment [Automated message] The system which generated this result transmitted reference range: 0.20-1.00 K/UL. The reference range was not used to interpret this result as normal/abnormal. ABSOLUTE NEUTROPHILS (test code = 79744-6) 2.51 K/UL See_Comment [Automated message] The system which generated this result transmitted reference range: 1.50-7.50 K/UL. The reference range was not used to interpret this result as normal/abnormal. BASOPHILS (test code = 92018-7) 0.5 % EOSINOPHILS (test code = 12943-4) 10.2 % HEMATOCRIT (test code = 37728-2) 28.8 % See_Comment L [Automated messa ge] The system which generated this result transmitted reference range: 40.0-51.0 %. The reference range was not used to interpret this result as normal/abnormal. HEMOGLOBIN (test code = 718-7) 9.2 G/DL See_Comment L [Automated messa ge] The system which generated this result transmitted reference range: 13.5-17.0 G/DL. The reference range was not used to interpret this result as normal/abnormal. LYMPHOCYTES (test code = 54625-4) 14.9 % MCH (test code = 68965-2) 32.1 PG See_Comment [Automated messa ge] The system which generated this result transmitted reference range: 25.0-33.0 PG. The reference range was not used to interpret this result as normal/abnormal. MCHC (test code = 39968-6) 31.9 G/DL See_Comment [Automated messa ge] The system which generated this result transmitted reference range: 31.0-36.0 G/DL. The reference range was not used to interpret this result as normal/abnormal. MCV (test code = 77210-4) 100.3 fL See_Comment H [Automated messa ge] The system which generated this result transmitted reference range: 80.0-99.0 fL. The reference range was not used to interpret this result as normal/abnormal. MONOCYTES (test code = 43568-1) 11.7 % NEUTROPHILS (test code = 25518-4) 62.5 % PLATELET COUNT (test code = 87128-5) 183 K/UL See_Comment [Automated messa ge] The system which generated this result transmitted reference range: 130-400 K/UL. The reference range was not used to interpret this result as normal/abnormal. RBC (test code = 32714-7) 2.87 M/UL See_Comment L [Automated messa ge] The system which generated this result transmitted reference range: 4.50-6.10 M/UL. The reference range was not used to interpret this result as normal/abnormal. RDW (test code = 61755-2) 14.5 % See_Comment [Automated messa ge] The system which generated this result transmitted reference range: 11.5-15.0 %. The reference range was not used to interpret this result as normal/abnormal. WBC (test code = 35527-1) 4.0 K/UL See_Comment [Automated messa ge] The system which generated this result transmitted reference range: 3.5-11.0 K/UL. The reference range was not used to interpret this result as normal/abnormal. HEMOGLOBIN A1c (test code = 4548-4) 6.3 % See_Comment H [Automated messa ge] The system which generated this result transmitted reference range: 4.2-5.6 %. The reference range was not used to interpret this result as normal/abnormal. CALC LDL CHOL (test code = 12790-1) 31 MG/DL See_Comment [Automated messa ge] The system which generated this result transmitted reference range: <100 MG/DL. The reference range was not used to interpret this result as normal/abnormal. CHOLESTEROL (test code = 2093-3) 89 MG/DL See_Comment [Automated messa ge] The system which generated this result transmitted reference range: <200 MG/DL. The reference range was not used to interpret this result as normal/abnormal. HDL CHOLESTEROL (test code = 2085-9) 44 MG/DL See_Comment [Automated [place] ge] The system which generated this result transmitted reference range: >39 MG/DL. The reference range was not used to interpret this result as normal/abnormal. RISK RATIO LDL/HDL (test code = 38963-5) 0.70 RATIO See_Comment [Automated message] The system which generated this result transmitted reference range: <3.55 RATIO. The reference range was not used to interpret this result as normal/abnormal. TRIGLYCERIDES (test code = 2571-8) 48 MG/DL See_Comment [Automated [place] ge] The system which generated this result transmitted reference range: <150 MG/DL. The reference range was not used to interpret this result as normal/abnormal. ALBUMIN, URINE, RANDOM (test code = 17380-2) 70.1 MG/DL NOT ESTAB MG/DL CALC ALBUMIN/CREAT, RND (test code = 05303-9) 1348 MG/G See_Comment H [Automated [place] ge] The system which generated this result transmitted reference range: <30 MG/G. The reference range was not used to interpret this result as normal/abnormal. CREATININE, URINE, CONC. (test code = 2161-8) 52.0 MG/DL NOT ESTAB MG/DL ALBUMIN (test code = 1751-7) 3.8 G/DL See_Comment [Automated [place] ge] The system which generated this result transmitted reference range: 3.5-5.2 G/DL. The reference range was not used to interpret this result as normal/abnormal. ALKALINE PHOSPHATASE (test code = 6768-6) 129 U/L See_Comment H [Automated message] The system which generated this result transmitted reference range: 40-123 U/L. The reference range was not used to interpret this result as normal/abnormal. BILIRUBIN, TOTAL (test code = 1975-2) 0.4 MG/DL See_Comment [Automated [place] ge] The system which generated this result transmitted reference range: <=1.2 MG/DL. The reference range was not used to interpret this result as normal/abnormal. BUN (test code = 3094-0) 54 MG/DL See_Comment H [Automated messa ge] The system which generated this result transmitted reference range: 8-23 MG/DL. The reference range was not used to interpret this result as normal/abnormal. CALCIUM (test code = 86861-4) 8.7 MG/DL See_Comment [Automated messa ge] The system which generated this result transmitted reference range: 8.5-10.5 MG/DL. The reference range was not used to interpret this result as normal/abnormal. CALC A/G RATIO (test code = 1759-0) 1.2 RATIO See_Comment [Automated messa ge] The system which generated this result transmitted reference range: 1.0-2.6 RATIO. The reference range was not used to interpret this result as normal/abnormal. CALC BUN/CREAT (test code = 3097-3) 14 RATIO See_Comment [Automated messa ge] The system which generated this result transmitted reference range: 6-28 RATIO. The reference range was not used to interpret this result as normal/abnormal. CALC GLOBULIN (test code = 18039-1) 3.2 G/DL See_Comment [Automated messa ge] The system which generated this result transmitted reference range: 1.9-3.7 G/DL. The reference range was not used to interpret this result as normal/abnormal. CARBON DIOXIDE (test code = 1963-8) 24 MEQ/L See_Comment [Automated messa ge] The system which generated this result transmitted reference range: 19-31 MEQ/L. The reference range was not used to interpret this result as normal/abnormal. CHLORIDE (test code = 2075-0) 102 MEQ/L See_Comment [Automated messa ge] The system which generated this result transmitted reference range: 95-107 MEQ/L. The reference range was not used to interpret this result as normal/abnormal. CREATININE (test code = 2160-0) 3.92 MG/DL See_Comment H [Automated messa ge] The system which generated this result transmitted reference range: 0.80-1.40 MG/DL. The reference range was not used to interpret this result as normal/abnormal. eGFR (2020 CKD-EPI) (test code = 07462-3) 17 ML/MIN/1.73 See_Comment L [Automated message] The system which generated this result transmitted reference range: >60 ML/MIN/1.73. The reference range was not used to interpret this result as normal/abnormal. GLUCOSE (test code = 1558-6) 158 MG/DL See_Comment H [Automated messa ge] The system which generated this result transmitted reference range: 70-99 MG/DL. The reference range was not used to interpret this result as normal/abnormal. POTASSIUM (test code = 2823-3) 4.1 MEQ/L See_Comment [Automated messa ge] The system which generated this result transmitted reference range: 3.5-5.4 MEQ/L. The reference range was not used to interpret this result as normal/abnormal. PROTEIN, TOTAL (test code = 2885-2) 7.0 G/DL See_Comment [Automated messa ge] The system which generated this result transmitted reference range: 6.1-8.3 G/DL. The reference range was not used to interpret this result as normal/abnormal. AST (test code = 1920-8) 19 U/L See_Comment [Automated messa ge] The system which generated this result transmitted reference range: 9-50 U/L. The reference range was not used to interpret this result as normal/abnormal. ALT (test code = 1742-6) 10 U/L See_Comment [Automated messa ge] The system which generated this result transmitted reference range: 5-50 U/L. The reference range was not used to interpret this result as normal/abnormal. SODIUM (test code = 2951-2) 138 MEQ/L See_Comment [Automated messa ge] The system which generated this result transmitted reference range: 133-146 MEQ/L. The reference range was not used to interpret this result as normal/abnormal. Troponin [id number] 00:54:41* Test Item Value Reference Range Interpretation Comme nts TROPONIN I (test code = 2483929155) 0.014 ng/mL <=0.034 KELLE (test code = KELLE) Reference (Normal) Range (defined by the 99th percentile reference limit): <= 0.034 ng/mL Note: Cardiac troponin begins to rise 3-4 hours after the onset of ischemia. Repeat in 4-6 hours if the sample was drawn within 3-4 hours of the onset of the symptom and found normal. Diagnosis of myocardial injury is made with acute changes in cTn concentrations with at least one serial sample above the 99th percentile upper reference limit (URL), taken together with the patient's clinical presentation. Biotin has been reported to cause a negative bias, interpret results relative to patient's use of biotin. Lab Interpretation (test code = 74815-1) Normal [facility] [id number] 21:54:07* Test Item Value Reference Range Interpretation Comme nts TROPONIN I (test code = 4377004985) 0.014 ng/mL <=0.034 KELLE (test code = KELLE) Reference (Normal) Range (defined by the 99th percentile reference limit): <= 0.034 ng/mL Note: Cardiac troponin begins to rise 3-4 hours after the onset of ischemia. Repeat in 4-6 hours if the sample was drawn within 3-4 hours of the onset of the symptom and found normal. Diagnosis of myocardial injury is made with acute changes in cTn concentrations with at least one serial sample above the 99th percentile upper reference limit (URL), taken together with the patient's clinical presentation. Biotin has been reported to cause a negative bias, interpret results relative to patient's use of biotin. Lab Interpretation (test code = 17990-8) Normal [facility] [id number] 21:51:49* Test Item Value Reference Range Interpretation Comme nts NT-proBNP (test code = 28934-2) 6830 pg/mL <=125 H KELLE (test code = KELLE) Positive: Heart Failure Likely Lab Interpretation (test code = 56399-1) Abnormal [facility]land[facility]esium2024-10-09 21:43:25* Test Item Value Reference Range Interpretation Comme nts MAGNESIUM (test code = 9151071620) 1.6 mg/dL 1.7-2.4 L Lab Interpretation (test cod e = 26199-1) Abnormal [facility] METABOLIC PANEL (01382)2024-01-30 21:43:04* Test Item Value Reference Range Interpretation Comme nts NA (test code = 1215547524) 134 mmol/L 135-145 L K (test code = 1323410553) 4.2 mmol/L 3.5-5.0 CL (test code = 9396093403) 103 mmol/L 98-108 CO2 TOTAL (test code = 3666149603) 21 mmol/L 23-31 L AGAP (test code = 6696100928) 10 2-16 BUN (test code = 5060272166) 59 mg/dL 7-23 H GLUCOSE (test code = 8752460923) 234 mg/dL 70-110 H CREATININE (test code = 2160-0) 3.98 mg/dL 0.60-1.25 H TOTAL BILI (test code = 5238953460) 0.5 mg/dL 0.1-1.1 CALCIUM (test code = 6943117797) 8.3 mg/dL 8.6-10.6 L T PROTEIN (test code = 3001968457) 7.4 g/dL 6.3-8.2 ALBUMIN (test code = 9233823748) 3.9 g/dL 3.5-5.0 ALK PHOS (test code = 6722850168) 125 U/L 34-122 H ALTv (test code = 1742-6) 14 U/L 5-50 AST(SGOT) (test code = 4038763817) 29 U/L 13-40 eGFR (test code = 93219-9) 16.2 mL/min/1.73m2 CKD-EPI eGFR (2020). Assuming creatinine has been stable day-to-day for at least three months, the eGFR indicates Category G4 (15 - 29 mL/min/1.73 m2) Lab Interpretation (test code = 76734-7) Abnormal [facility] WITH [id number] 21:31:03* Test Item Value Reference Range Interpretation Comme nts WBC (test code = 6690-2) 4.04 4.20-10.70 L RBC (test code = 789-8) 2.86 4.26-5.52 L HGB (test code = 718-7) 9.2 g/dL 12.2-16.4 L HCT (test code = 4544-3) 28.3 % 38.4-49.3 L MCV (test code = 787-2) 99.0 fL 81.7-95.6 H MCH (test code = 785-6) 32.2 pg 26.1-32.7 MCHC (test code = 786-4) 32.5 g/dL 31.2-35.0 RDW-SD (test code = 95245-1) 52.5 fL 38.5-51.6 H RDW-CV (test code = 788-0) 14.5 % 12.1-15.4 PLT (test code = 777-3) 161 150-328 MPV (test code = 84652-4) 11.0 fL 9.8-13.0 NRBC/100 WBC (test code = 2453339718) 0.0 0.0-10.0 NRBC x10^3 (test code = 4157773577) See_Comment [Automated messa ge] The system which generated this result transmitted reference range: 10*3/?L. The reference range was not used to interpret this result as normal/abnormal. GRAN MAT (NEUT) % (test code = 770-8) 65.6 % IMM GRAN % (test code = 3672535337) 0.50 % LYMPH % (test code = 736-9) 13.1 % MONO % (test code = 5905-5) 9.4 % EOS % (test code = 713-8) 10.9 % BASO % (test code = 706-2) 0.5 % GRAN MAT x10^3(ANC) (test code = 1983150765) 2.65 10*3/uL 1.99-6.95 IMM GRAN x10^3 (test code = 3475857872) 0.00-0.06 LYMPH x10^3 (test code = 731-0) 0.53 10*3/uL 1.09-3.23 L MONO x10^3 (test code = 742-7) 0.38 10*3/uL 0.36-1.02 EOS x10^3 (test code = 711-2) 0.44 10*3/uL 0.06-0.53 BASO x10^3 (test code = 704-7) 0.01-0.09 Lab Interpretation (test code = 92640-1) [facility]normal [facility] 1 [id number] 21:30:43HISTORY: Chest pain. TECHNIQUE: 2 Portable AP view of the chest are submitted. Comparison madewith 09/08/2023 study. FINDINGS: Persistent small to medium size left pleural effusion withcongestion/atelectatic changes in the left lung base noted with probableminimal increase in the amount of pleural effusion since previous study.Cardiac size is upper normal. 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 CONCLUSIONS: Persistent small to medium-sized left pleural effusion withcongestion/atelectatic changes in the left lung base. Minimal increase inthe amount of pleural effusion suspected since 09/08/2023 study.[facility]landPHYSIAN [id number] 16:24:18Ordered by an unspecified provider.[facility] [id number] 19:54:09 Ordered by an unspecified provider.[facility] [id number] 19:52:22Ordered by an unspecified provider.[facility]landCB W/AUTO [id number] 00:00:00* Test Item Value Reference Range Interpretation Comme nts NUCLEATED RBCS (test code = 51841-0) 0.0 /100 WBC'S See_Comment [Automated messa ge] The system which generated this result transmitted reference range: 0.0 /100 WBC'S. The reference range was not used to interpret this result as normal/abnormal. ABSOLUTE EOSINOPHILS (test code = 70084-9) 0.45 K/UL See_Comment [Automated messa ge] The system which generated this result transmitted reference range: 0.00-0.50 K/UL. The reference range was not used to interpret this result as normal/abnormal. ABSOLUTE LYMPHOCYTES (test code = 01102-7) 0.68 K/UL See_Comment L [Automated messa ge] The system which generated this result transmitted reference range: 1.00-4.00 K/UL. The reference range was not used to interpret this result as normal/abnormal. ABSOLUTE MONOCYTES (test code = 60138-3) 0.44 K/UL See_Comment [Automated messa ge] The system which generated this result transmitted reference range: 0.20-1.00 K/UL. The reference range was not used to interpret this result as normal/abnormal. ABSOLUTE NEUTROPHILS (test code = 44245-9) 4.02 K/UL See_Comment [Automated messa ge] The system which generated this result transmitted reference range: 1.50-7.50 K/UL. The reference range was not used to interpret this result as normal/abnormal. BASOPHILS (test code = 28815-7) 0.5 % EOSINOPHILS (test code = 43407-2) 8.0 % HEMATOCRIT (test code = 80512-6) 29.9 % See_Comment L [Automated messa ge] The system which generated this result transmitted reference range: 40.0-51.0 %. The reference range was not used to interpret this result as normal/abnormal. HEMOGLOBIN (test code = 718-7) 9.7 G/DL See_Comment L [Automated messa ge] The system which generated this result transmitted reference range: 13.5-17.0 G/DL. The reference range was not used to interpret this result as normal/abnormal. LYMPHOCYTES (test code = 95377-5) 12.1 % MCH (test code = 06992-8) 32.9 PG See_Comment [Automated messa ge] The system which generated this result transmitted reference range: 25.0-33.0 PG. The reference range was not used to interpret this result as normal/abnormal. MCHC (test code = 18748-7) 32.4 G/DL See_Comment [Automated messa ge] The system which generated this result transmitted reference range: 31.0-36.0 G/DL. The reference range was not used to interpret this result as normal/abnormal. MCV (test code = 46569-8) 101.4 fL See_Comment H [Automated messa ge] The system which generated this result transmitted reference range: 80.0-99.0 fL. The reference range was not used to interpret this result as normal/abnormal. MONOCYTES (test code = 78028-3) 7.8 % NEUTROPHILS (test code = 87439-4) 71.2 % PLATELET COUNT (test code = 15697-1) 193 K/UL See_Comment [Automated messa ge] The system which generated this result transmitted reference range: 130-400 K/UL. The reference range was not used to interpret this result as normal/abnormal. RBC (test code = 09300-6) 2.95 M/UL See_Comment L [Automated messa ge] The system which generated this result transmitted reference range: 4.50-6.10 M/UL. The reference range was not used to interpret this result as normal/abnormal. RDW (test code = 91509-5) 13.7 % See_Comment [Automated messa ge] The system which generated this result transmitted reference range: 11.5-15.0 %. The reference range was not used to interpret this result as normal/abnormal. WBC (test code = 73277-2) 5.6 K/UL See_Comment [Automated messa ge] The system which generated this result transmitted reference range: 3.5-11.0 K/UL. The reference range was not used to interpret this result as normal/abnormal. POCT GLUCOSE (AUTOMATED)2023-09-08 16:11:25* Test Item Value Reference Range Interpretation Comme [facility] POCT GLU (test code = 0943915401) 138 mg/dL 70-110 H Lab Interpretation (test cod e = 80573-9) Abnormal [facility]landLipase2024-05-18 13:18:43* Test Item Value Reference Range Interpretation Comme nts LIPASE (test code = 2689630822) 84 U/L 0-220 Lab Interpretation (test cod e = 49336-7) Normal [facility]landPOCT GLU[facility]SE (AUTOMATED)2023-09-08 12:44:54* Test Item Value Reference Range Interpretation Comme [facility] POCT GLU (test code = 5272779052) 98 mg/dL 70-110 Lab Interpretation (test cod e = 03147-7) Normal [facility]landCritical [id number] 11:50:30Tien Gross MD ? ? 09/08/2023 ?6:50 AMCritical Care Performed by: Tien Gross MDAuthorizedby: Tien Gross MD ?Critical care provider statement: ?Critical care time (minutes): ?45 ?Critical care time was exclusive of: ?Separately billable procedures and treating other patients and teaching time ?Critical care was necessary to treat or prevent imminent or life-threatening deterioration of the following conditions: ?Metabolic crisis ?Critical care was time spent personally by me on the following activities: ?Development of treatment plan with patient or surrogate, evaluation of patient's response to treatment, examination of patient, obtaining history from patient or surrogate, ordering and performing treatments and interventions, ordering and review of laboratory studies, ordering and review of radiographic studies, pulse oximetry, re- evaluation of patient's condition and review of old charts ?Care discussed with: admitting provider ?Comments: ? Due to a high probability of clinically significant, life threatening deterioration, the patient required my highest level of preparedness to intervene emergently and I personally spent this critical care time directly and personally managing the patient. This critical care time included obtaining a history; examining the patient; pulse oximetry; ordering and review of studies; arranging urgent treatment with development of a management plan; evaluation of patient's response to treatment; frequent reassessment; and, discussions with other providers.This critical care time was performed to assess and manage the high probability of imminent, life- threatening deterioration that could result in multi-organ failure. It was exclusive of separately billable procedures and treating other patients. [facility]landPOCT GLUCOSE (AUTOMATED)2023-09-08 11:49:43* Test Item Value Reference Range Interpretation Comme nts POCT GLU (test code = 6709336844) 80 mg/dL 70-110 Lab Interpretation (test cod e = 99078-6) Normal [facility] PearlandTROPONIN [id number] 11:36:59* Test Item Value Reference Range Interpretation Comme nts TROPONIN I (test code = 4055666827) 0.019 ng/mL <=0.034 KELLE (test code = KELLE) Reference (Normal) Range (defined by the 99th percentile reference limit): <= 0.034 ng/mL Note: Cardiac troponin begins to rise 3-4 hours after the onset of ischemia. Repeat in 4-6 hours if the sample was drawn within 3-4 hours of the onset of the symptom and found normal. Diagnosis of myocardial injury is made with acute changes in cTn concentrations with at least one serial sample above the 99th percentile upper reference limit (URL), taken together with the patient's clinical presentation. Biotin has been reported to cause a negative bias, interpret results relative to patient's use of biotin. Lab Interpretation (test code = 71295-1) Normal [facility]landETHANOL2024-05-18 11:26:56* Test Item Value Reference Range Interpretation Comme nts ALCOHOL (test code = 5083933934) 13 mg/dL KELLE (test code = KELLE) <10 Hrufpcst04-370 Toxic>100 Depression of GRAPPLE YARDER OPERATOR>400 Fatalities Reported [facility]landCOM. METABOLIC PANEL (89276)2023-09-08 11:26:16* Test Item Value Reference Range Interpretation Comme nts NA (test code = 2053265098) 133 mmol/L 135-145 L K (test code = 9870329656) 3.3 mmol/L 3.5-5.0 L CL (test code = 4655778733) 102 mmol/L 98-108 CO2 TOTAL (test code = 4991274627) 17 mmol/L 23-31 L AGAP (test code = 3198542209) 14 2-16 BUN (test code = 6195987797) 53 mg/dL 7-23 H GLUCOSE (test code = 4358628940) 99 mg/dL 70-110 CREATININE (test code = 2160-0) 3.35 mg/dL 0.60-1.25 H TOTAL BILI (test code = 9210722125) 0.4 mg/dL 0.1-1.1 CALCIUM (test code = 0583342136) 8.1 mg/dL 8.6-10.6 L T PROTEIN (test code = 3629531247) 7.3 g/dL 6.3-8.2 ALBUMIN (test code = 2411629206) 3.7 g/dL 3.5-5.0 ALK PHOS (test code = 1723378595) 124 U/L 34-122 H ALTv (test code = 1742-6) 12 U/L 5-50 AST(SGOT) (test code = 4407991907) 24 U/L 13-40 eGFR (test code = 15521-2) 19.9 mL/min/1.73m2 CKD-EPI eGFR (2020). Assuming creatinine has been stable day-to-day for at least three months, the eGFR indicates Category G4 (15 - 29 mL/min/1.73 m2) Lab Interpretation (test code = 31853-3) Abnormal [facility]landLIPASE2024-05-18 11:25:56* Test Item Value Reference Range Interpretation Comme nts LIPASE (test code = 9587719297) 76 U/L 0-220 Lab Interpretation (test cod e = 98699-8) Normal [facility] WITH [id number] 10:47:57* Test Item Value Reference Range Interpretation Comme nts WBC (test code = 6690-2) 4.44 4.20-10.70 RBC (test code = 789-8) 2.50 4.26-5.52 L HGB (test code = 718-7) 8.3 g/dL 12.2-16.4 L HCT (test code = 4544-3) 25.2 % 38.4-49.3 L MCV (test code = 787-2) 100.8 fL 81.7-95.6 H MCH (test code = 785-6) 33.2 pg 26.1-32.7 H MCHC (test code = 786-4) 32.9 g/dL 31.2-35.0 RDW-SD (test code = 06026-1) 53.2 fL 38.5-51.6 H RDW-CV (test code = 788-0) 14.6 % 12.1-15.4 PLT (test code = 777-3) 212 150-328 MPV (test code = 19816-9) 11.2 fL 9.8-13.0 NRBC/100 WBC (test code = 1478300520) 0.0 0.0-10.0 NRBC x10^3 (test code = 9609951539) See_Comment [Automated messa ge] The system which generated this result transmitted reference range: 10*3/?L. The reference range was not used to interpret this result as normal/abnormal. GRAN MAT (NEUT) % (test code = 770-8) 73.4 % IMM GRAN % (test code = 3100242473) 0.00 % LYMPH % (test code = 736-9) 12.4 % MONO % (test code = 5905-5) 8.1 % EOS % (test code = 713-8) 5.4 % BASO % (test code = 706-2) 0.7 % GRAN MAT x10^3(ANC) (test code = 6925587941) 3.26 10*3/uL 1.99-6.95 IMM GRAN x10^3 (test code = 9514662556) 0.00-0.06 LYMPH x10^3 (test code = 731-0) 0.55 10*3/uL 1.09-3.23 L MONO x10^3 (test code = 742-7) 0.36 10*3/uL 0.36-1.02 EOS x10^3 (test code = 711-2) 0.24 10*3/uL 0.06-0.53 BASO x10^3 (test code = 704-7) 0.03 10*3/uL 0.01-0.09 Lab Interpretation (test code = 16538-0) Abnormal [facility]landPODC GLUCOSE (AUTOMATED)2023-09-08 10:33:40* Test Item Value Reference Range Interpretation Comme nts POCT GLU (test code = 6174052754) 108 mg/dL 70-110 Lab Interpretation (test cod e = 05533-0) Normal [facility]landN-TERMINAL [id number] 23:41:14* Test Item Value Reference Range Interpretation Comme [facility] NT-proBNP (test code = 25067-1) 5770 pg/mL <=125 H KELLE (test code = KELLE) Positive: Heart Failure Likely Lab Interpretation (test code = 25515-6) Abnormal [facility] (96903)(NA, K, CL, CO2, GLUCOSE, BUN, CREATININE, CA)2023-04-06 23:32:54* Test Item Value Reference Range Interpretation Comme nts NA (test code = 4934956628) 137 mmol/L 135-145 K (test code = 6222006265) 4.0 mmol/L 3.5-5.0 CL (test code = 4436585467) 99 mmol/L 98-108 CO2 TOTAL (test code = 9397704172) 26 mmol/L 23-31 AGAP (test code = 6713277722) 12 2-16 BUN (test code = 0264585306) 44 mg/dL 7-23 H GLUCOSE (test code = 3354914243) 152 mg/dL 70-110 H CREATININE (test code = 8993146506) 2.85 mg/dL 0.60-1.25 H CALCIUM (test code = 7729472805) 8.9 mg/dL 8.6-10.6 eGFR (test code = 17836-0) 24.4 mL/min/1.73m2 CKD-EPI eGFR (2020). Assuming creatinine has been stable day-to-day for at least three months, the eGFR indicates Category G4 (15 - 29 mL/min/1.73 m2) Lab Interpretation (test code = 81322-6) Abnormal [facility]landProthrombin Time / [id number] 13:30:06* Test Item Value Reference Range Interpretation Comme [facility] PROTIME PATIENT (test code = 5964-2) 13.0 See_Comment H [Automated Oyokeya HLR Properties] The system which generated this result transmitted reference range: 10.1 - 12.6 Seconds. The reference range was not used to interpret this result as normal/abnormal. INR (test code = 6301-6) 1.1 Normal INR <1.1; Warfarin Therapeutic range 2.0 to 3.0 or 2.5 to 3.5, depending upon the indications. Lab Interpretation (test code = 38406-0) Abnormal [facility]landCBC WITH [id number] 13:29:06* Test Item Value Reference Range Interpretation Comme [facility] WBC (test code = 6690-2) 5.70 See_Comment [Automated Oyokeya HLR Properties] The system which generated this result transmitted reference range: 4.20 - 10.70 10*3/?L. The reference range was not used to interpret this result as normal/abnormal. RBC (test code = 789-8) 2.58 See_Comment L [Automated Oyokeya HLR Properties] The system which generated this result transmitted reference range: 4.26 - 5.52 10*6/?L. The reference range was not used to interpret this result as normal/abnormal. HGB (test code = 718-7) 7.9 g/dL 12.2-16.4 L HCT (test code = 4544-3) 24.0 % 38.4-49.3 L MCV (test code = 787-2) 93.0 fL 81.7-95.6 MCH (test code = 785-6) 30.6 pg 26.1-32.7 MCHC (test code = 786-4) 32.9 g/dL 31.2-35.0 RDW-SD (test code = 83726-4) 50.8 fL 38.5-51.6 RDW-CV (test code = 788-0) 15.0 % 12.1-15.4 PLT (test code = 777-3) 224 See_Comment [Automated messa ge] The system which generated this result transmitted reference range: 150 - 328 10*3/?L. The reference range was not used to interpret this result as normal/abnormal. MPV (test code = 23729-6) 10.4 fL 9.8-13.0 NRBC/100 WBC (test code = 9284885048) 0.0 See_Comment [Automated me ssage] The system which generated this result transmitted reference range: 0.0 - 10.0 /100 WBCs. The reference range was not used to interpret this result as normal/abnormal. NRBC x10^3 (test code = 8469020107) See_Comment [Automated messa ge] The system which generated this result transmitted reference range: 10*3/?L. The reference range was not used to interpret this result as normal/abnormal. GRAN MAT (NEUT) % (test code = 770-8) 69.2 % IMM GRAN % (test code = 5677455142) 0.20 % LYMPH % (test code = 736-9) 12.1 % MONO % (test code = 5905-5) 9.1 % EOS % (test code = 713-8) 8.9 % BASO % (test code = 706-2) 0.5 % GRAN MAT x10^3(ANC) (test code = 9151617222) 3.94 10*3/uL 1.99-6.95 IMM GRAN x10^3 (test code = 7235456873) 0.00-0.06 LYMPH x10^3 (test code = 731-0) 0.69 10*3/uL 1.09-3.23 L MONO x10^3 (test code = 742-7) 0.52 10*3/uL 0.36-1.02 EOS x10^3 (test code = 711-2) 0.51 10*3/uL 0.06-0.53 BASO x10^3 (test code = 704-7) 0.03 10*3/uL 0.01-0.09 Lab Interpretation (test code = 93906-7) Abnormal [facility]landPULMONARY FUNCTION TEST (RESULTS)2023-03-29 19:02:34* Test Item Value Reference Range Interpretation Comme nts FVC Actual (test code = 3994) 2.42 L FEV1 Actual (test code = 3993) 1.61 L FEV1/FVC Actual (test code = 3995) 66 % [facility]landCBC W/AUTO [id number] 00:00:00* Test Item Value Reference Range Interpretation Comme nts NUCLEATED RBCS (test code = 19907-5) 0.0 /100 WBC'S See_Comment [Automated messa ge] The system which generated this result transmitted reference range: 0.0 /100 WBC'S. The reference range was not used to interpret this result as normal/abnormal. ABSOLUTE EOSINOPHILS (test code = 67835-4) 0.24 K/UL See_Comment [Automated messa ge] The system which generated this result transmitted reference range: 0.00-0.50 K/UL. The reference range was not used to interpret this result as normal/abnormal. ABSOLUTE LYMPHOCYTES (test code = 10613-1) 0.63 K/UL See_Comment L [Automated messa ge] The system which generated this result transmitted reference range: 1.00-4.00 K/UL. The reference range was not used to interpret this result as normal/abnormal. ABSOLUTE MONOCYTES (test code = 30919-8) 0.49 K/UL See_Comment [Automated messa ge] The system which generated this result transmitted reference range: 0.20-1.00 K/UL. The reference range was not used to interpret this result as normal/abnormal. ABSOLUTE NEUTROPHILS (test code = 85050-6) 4.42 K/UL See_Comment [Automated messa ge] The system which generated this result transmitted reference range: 1.50-7.50 K/UL. The reference range was not used to interpret this result as normal/abnormal. BASOPHILS (test code = 80586-6) 0.5 % EOSINOPHILS (test code = 15159-8) 4.1 % HEMATOCRIT (test code = 63312-8) 28.8 % See_Comment L [Automated messa ge] The system which generated this result transmitted reference range: 40.0-51.0 %. The reference range was not used to interpret this result as normal/abnormal. HEMOGLOBIN (test code = 718-7) 9.4 G/DL See_Comment L [Automated messa ge] The system which generated this result transmitted reference range: 13.5-17.0 G/DL. The reference range was not used to interpret this result as normal/abnormal. LYMPHOCYTES (test code = 64635-4) 10.8 % MCH (test code = 66732-6) 30.5 PG See_Comment [Automated messa ge] The system which generated this result transmitted reference range: 25.0-33.0 PG. The reference range was not used to interpret this result as normal/abnormal. MCHC (test code = 31606-1) 32.6 G/DL See_Comment [Automated messa ge] The system which generated this result transmitted reference range: 31.0-36.0 G/DL. The reference range was not used to interpret this result as normal/abnormal. MCV (test code = 69027-8) 93.5 fL See_Comment [Automated messa ge] The system which generated this result transmitted reference range: 80.0-99.0 fL. The reference range was not used to interpret this result as normal/abnormal. MONOCYTES (test code = 30964-5) 8.4 % NEUTROPHILS (test code = 05910-8) 75.9 % PLATELET COUNT (test code = 78558-9) 265 K/UL See_Comment [Automated messa ge] The system which generated this result transmitted reference range: 130-400 K/UL. The reference range was not used to interpret this result as normal/abnormal. RBC (test code = 06664-4) 3.08 M/UL See_Comment L [Automated messa ge] The system which generated this result transmitted reference range: 4.50-6.10 M/UL. The reference range was not used to interpret this result as normal/abnormal. RDW (test code = 08304-1) 13.8 % See_Comment [Automated messa ge] The system which generated this result transmitted reference range: 11.5-15.0 %. The reference range was not used to interpret this result as normal/abnormal. WBC (test code = 51341-0) 5.8 K/UL See_Comment [Automated messa ge] The system which generated this result transmitted reference range: 3.5-11.0 K/UL. The reference range was not used to interpret this result as normal/abnormal. POCT GLUCOSE (AUTOMATED)2023-01-17 16:40:03* Test Item Value Reference Range Interpretation Comme nts POCT GLU (test code = 6701051651) 240 mg/dL 70-110 H Lab Interpretation (test cod e = 63482-6) Abnormal [facility] GLUCOSE (AUTOMATED)2023-01-17 12:54:13* Test Item Value Reference Range Interpretation Comme nts POCT GLU (test code = 5384780872) 123 mg/dL 70-110 H Lab Interpretation (test cod e = 60326-3) Abnormal [facility] GLUCOSE (AUTOMATED)2023-01-17 08:52:33* Test Item Value Reference Range Interpretation Comme nts POCT GLU (test code = 8631595948) 87 mg/dL 70-110 Lab Interpretation (test cod e = 05462-3) Normal [facility] GLUCOSE (AUTOMATED)2023-01-17 08:01:45* Test Item Value Reference Range Interpretation Comme nts POCT GLU (test code = 6841728206) 54 mg/dL 70-110 L Lab Interpretation (test cod e = 92029-0) Abnormal [facility] GLUCOSE (AUTOMATED)2023-01-17 01:59:46* Test Item Value Reference Range Interpretation Comme nts POCT GLU (test code = 9393716737) 275 mg/dL 70-110 H Lab Interpretation (test cod e = 54435-8) Abnormal [facility] GLUCOSE (AUTOMATED)2023-01-16 21:43:09* Test Item Value Reference Range Interpretation Comme nts POCT GLU (test code = 5202124687) 96 mg/dL 70-110 Lab Interpretation (test cod e = 25029-2) Normal [facility] Protein Body [id number] 20:24:09* Test Item Value Reference Range Interpretation Comme nts T.PROT BF (test code = 2057515217) 1800.0 mg/dL UNSPUN BODY FLUID COLOR (test code = 2877431473) Light Yellow UNSPUN BODY FLUID CLARITY (test code = 3521356518) Clear SPUN BODY FLUID COLOR (test code = 1037607291) Light Yellow SPUN BODY FLUID CLARITY (test code = 0227803390) Clear Sediment (test code = 5807652166) The sediment volume is <0.01 mLs of the total fluid volume of 5 mLs and its color is red. KELLE (test code = KELLE) Test developed and characteristics determined by [facility] Laboratory Services. [facility] PearlandBODY FLUID MANUAL [id number] 17:03:24* Test Item Value Reference Range Interpretation Comme nts BF SEGS% (test code = 61778-7) 25 % BF LYMPHS% (test code = 95801-7) 29 % BF MACROPHAGE% (test code = 36556-3) 43 % BF MESOS% (test code = 52152-2) 3 % BF #CELLS CNTD (test code = 6441265009) 100 cells/u L [facility]landPOCT GLUCOSE (AUTOMATED)2023-01-16 16:46:08* Test Item Value Reference Range Interpretation Comme nts POCT GLU (test code = 5863677855) 152 mg/dL 70-110 H Lab Interpretation (test cod e = 06966-7) Abnormal [facility] PearlandBODY FLUID DIRECT [id number] 16:27:50* Test Item Value Reference Range Interpretation Comme nts BF COLOR (test code = 8092877429) Light Yellow BF WBC Count (test code = 3051220224) 175 See_Comment [Automated Oyokeya ge] The system which generated this result transmitted reference range: /?L. The reference range was not used to interpret this result as normal/abnormal. BF RBC Count (test code = 2013275049) 1000 See_Comment [Automated messa ge] The system which generated this result transmitted reference range: /?L. The reference range was not used to interpret this result as normal/abnormal. KELLE (test code = KELLE) The reference range and other method performance specifications have not been established for this body fluid. ?The test results must be integrated into the clinical context for interpretation. [facility] PearlandTransthoracic echo (TTE)2023-01-16 15:47:09* Test Item Value Reference Range Interpretation Comme nts Height (test code = 7918976129) 69 in Weight (test code = 0011857715) 164 lbs Systolic BP (test code = 0349809345) 159 mmHg Diastolic BP (test code = 7416528722) 84 mmHg Heart Rate (test code = 6615045787) 86 bpm BSA (test code = 6408838657) 1.90 m2 Ao root diam (test code = 8673505409) 3.30 cm Aortic root (test code = 0863216722) 3.3 cm Ao root annulus (test code = 0742306866) 3.3 cm LA size (test code = 9539756101) 4.3 cm LVOT diameter (test code = 0564193449) 1.99 cm LVOT area (test code = 1462469658) 3.10 cm2 TR Peak Sylvain (test code = 4973016923) 377.9 cm/s Triscuspid Valve Regurgitation Peak Gradient (test code = 9342919769) 57.1 mmHg MV Prop V (test code = 1607613887) 49.30 cm/s MV Peak E Sylvain (test code = 5478134394) 129.4 cm/s MV Peak A Sylvain (test code = 4227844060) 51.9 cm/s E/A ratio (test code = 0310969404) 2.49 ratio E wave decelartion time (test code = 4810432551) 0.13 s LAV(MOD-sp4) (test code = 2386863781) 79.00 mL Aortic valve mean velocity (test code = 7061880106) 97.7 cm/s Ao peak sylvain (test code = 1380013465) 136.5 cm/s Ao VTI (test code = 9733935656) 26.5 cm Ao max PG (test code = 9210924410) 7.50 mm[Hg] AV peak gradient (test code = 2860515860) 7.5 mmHg AV mean gradient (test code = 6452715270) 4.2 mmHg LVOT stroke volume (test code = 2734991685) 48.00 cm3 LVOT peak sylvain (test code = 3318652866) 83.3 cm/s LVOT mn grad (test code = 2525633332) 1.2 mmHg AV LVOT peak gradient (test code = 0387024839) 2.8 mmHg LVOT peak VTI (test code = 7109435122) 15.5 cm AV area by cont VTI (test code = 7833655012) 1.8 cm2 AV area peak sylvain (test code = 4806613184) 1.9 cm2 LV V1 mean (test code = 4421667105) 51.70 cm/s AV valve area (test code = 7811484461) 1.81 cm2 Tapse (test code = 6597245348) 1.75 cm LA Volume Index (BP) (test code = 6586876003) 46.4 mL/m2 LA volume (BP) (test code = 8871420250) 88.1 mL LAV(MOD-sp2) (test code = 8796982358) 82.80 mL IVS (test code = 0433169936) 0.77 cm Interventricular Septum Diastolic Thickness by 2D (test code = 6697148) 0.77 cm LVIDD (test code = 2802304615) 5.90 cm Left Ventricular End Diastolic Volume by Teichholz Method (test code = 3669856) 176.0 mL LVPWD (test code = 0378672759) 0.77 cm PW (test code = 2186729863) 0.77 cm 0.6-1.1 EF(Teich) (test code = 7634963728) 36.20 % LVIDS (test code = 7083889122) 4.90 cm Left Ventricular End Systolic Volume by Teichholz Method (test code = 8337832) 112.2 mL FS (test code = 8914628612) 18 % EF - 2D (test code = 56002356) 36.20 % Radiology Study observation (narrative) (test code = 96130-2) KELLE (test code = KELLE) ?Left?Ventricle: Left ventricle size is normal. Normal wall thickness. See diagram for wall motion findings. Severely reduced systolic function with a visually estimated EF of 25 - 30%. 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 Elevated left ventricular filling pressure. ?Tricuspid?Valve: Mild transvalvular regurgitation. Right ventricular systolic pressure is greater than 60 mmHg. ?RA pressure is 0-5 mmHg. ?Left?Atrium: Left atrium is mildly dilated. ?Right?Ventricle: Right ventricle is mildly dilated. Mildly reduced systolic function. ?Pericardium: No pericardial effusion. Left VentricleLeft ventricle size is normal. Normal wall thickness. See diagram for wall motion findings. Severely reduced systolic function with a visually estimated EF of 25 - 30%. 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 Elevated left ventricular filling pressure.Right VentricleRight ventricle is mildly dilated. Mildly reduced systolic function. There is a pacemaker lead in the right ventricle.Left AtriumLeft atrium is mildly dilated.Right AtriumRight atrium is dilated. Lead present in the right atrium.IVC/SVCIVC diameter is less than or equal to 21 mm and decreases greater than 50% during inspiration; therefore the estimated right atrial pressure is normal (~0-5 mmHg).Mitral ValveMitral valve structure is normal. Mild transvalvular regurgitation.Tricusp id ValveTricuspid valve structure is normal. Mild transvalvular regurgitation. Right ventricular systolic pressure is greater than 60 mmHg. RA pressure is 0-5 mmHg.Aortic ValveTricuspid.Pulmon ic ValveNot well visualized. Trace transvalvular regurgitation.Ascendi ng AortaNormal sized aorta.PericardiumNo pericardial effusion.Study DetailsStudy quality was adequate. A complete echocardiogram was performed using 2D, color flow Doppler and spectral Doppler. The apical, parasternal and subcostal views were obtained. 5 mL of Lumason ultrasound enhancing agent used.Wall Scoring BaselineScore Index: 2.47The following segments are akinetic: mid anteroseptal, mid inferoseptal, mid inferior, apical anterior, apical septal, apical inferior, apical lateral and apex.The following segments are hypokinetic: basal anterior, basal anteroseptal, basal inferoseptal, basal inferior, basal inferolateral, basal anterolateral, mid anterior, mid inferolateral and mid anterolateral. [facility] GLUCOSE (AUTOMATED)2023-01-16 13:26:10* Test Item Value Reference Range Interpretation Comme nts POCT GLU (test code = 0332032831) 92 mg/dL 70-110 Lab Interpretation (test cod e = 18815-7) Normal [facility] GLUCOSE (AUTOMATED)2023-01-16 02:29:58* Test Item Value Reference Range Interpretation Comme nts POCT GLU (test code = 2458535982) 280 mg/dL 70-110 H Lab Interpretation (test cod e = 00493-8) [facility] [id number] 19:01:16* Test Item Value Reference Range Interpretation Comme nts TROPONIN I (test code = 2558472066) 0.023 ng/mL <=0.034 KELLE (test code = KELLE) Reference (Normal) Range (defined by the 99th percentile reference limit): <= 0.034 ng/mL Note: Cardiac troponin begins to rise 3-4 hours after the onset of ischemia. Repeat in 4-6 hours if the sample was drawn within 3-4 hours of the onset of the symptom and found normal. Diagnosis of myocardial injury is made with acute changes in cTn concentrations with at least one serial sample above the 99th percentile upper reference limit (URL), taken together with the patient's clinical presentation. Biotin has been reported to cause a negative bias, interpret results relative to patient's use of biotin. Lab Interpretation (test code = 08191-3) Normal [facility] [id number] 18:58:33* Test Item Value Reference Range Interpretation Comme nts NT-proBNP (test code = 41741-3) 31842 pg/mL <=125 H KELLE (test code = KELLE) Positive: Heart Failure Likely Lab Interpretation (test code = 21127-9) [facility]normal [facility] (03101)2023-01-15 18:49:53* Test Item Value Reference Range Interpretation Comme nts NA (test code = 6102073877) 139 mmol/L 135-145 K (test code = 0119276769) 4.0 mmol/L 3.5-5.0 CL (test code = 6820592724) 102 mmol/L 98-108 CO2 TOTAL (test code = 4456677501) 28 mmol/L 23-31 AGAP (test code = 0930341639) 9 2-16 BUN (test code = 1915057724) 48 mg/dL 7-23 H GLUCOSE (test code = 0812890351) 189 mg/dL 70-110 H CREATININE (test code = 7718558431) 2.63 mg/dL 0.60-1.25 H TOTAL BILI (test code = 3735760951) 0.5 mg/dL 0.1-1.1 CALCIUM (test code = 0703598515) 8.4 mg/dL 8.6-10.6 L T PROTEIN (test code = 3879193656) 7.5 g/dL 6.3-8.2 ALBUMIN (test code = 8229085795) 3.4 g/dL 3.5-5.0 L ALK PHOS (test code = 5570111084) 130 U/L 34-122 H ALTv (test code = 1742-6) 20 U/L 5-50 AST(SGOT) (test code = 8250229661) 31 U/L 13-40 eGFR (test code = 4635473617) 24.9 mL/min/1.73m2 KELLE (test code = KELLE) Association of Glomerular Filtration Rate (GFR) and Staging of Kidney Disease* + --+ --+ ------+| GFR (mL/min/1.73 m2) ?| With Kidney Damage ?| ?Without Kidney Damage+ --------+ --------+ +| ?>90 ?| ?Stage one ?| ? Normal ?+ ---+ ---+ -------+| ?60-89 ?| ?Stage two ?| ? Decreased GFR ? + --+ --+ ------+| ?30-59 ?| ?Stage three ?| ? Stage three ? + --+ --+ ------+| ?15-29 ?| ?Stage four ? | ? Stage four ?+ ---+ ---+ -------+| ?<15 (or dialysis) ? ?| ?Stage five ? | ? Stage five ?+ ---+ ---+ -------+ *Each stage assumes the associated GFR level has been in effect for at least three months. ?Stages 1 to 5, with or without kidney disease, indicate chronic kidney disease. Notes: Determination of stages one and two (with eGFR >59mL/min/1.73 m2) requires estimation of kidney damage for at least three months as defined by structural or functional abnormalities of the kidney, manifested by either:Pathological abnormalities or Markers of kidney damage (including abnormalities in the composition of the blood or urine or abnormalities in imaging tests). Lab Interpretation (test code = 86065-4) [facility]normal [facility] THRMPLAS [id number] 18:45:30* Test Item Value Reference Range Interpretation Comme nts APTT Patient (test code = 3173-2) 36 See_Comment [Automated message] The system which generated this result transmitted reference range: 23 - 38 Seconds. The reference range was not used to interpret this result as normal/abnormal. KELLE (test code = KELLE) The [facility] patient population mean normal value for aPTT is 30 seconds. Lab Interpretation (test code = 84312-0) Normal [facility]landPROTHROMBIN TIME / [id number] 18:43:13* Test Item Value Reference Range Interpretation Comme nts PROTIME PATIENT (test code = 5964-2) 14.6 See_Comment [Automated messa ge] The system which generated this result transmitted reference range: 12.0 - 14.7 Seconds. The reference range was not used to interpret this result as normal/abnormal. INR (test code = 6301-6) 1.2 Normal INR <1.1; Warfarin Therapeutic range 2.0 to 3.0 or 2.5 to 3.5, depending upon the indications. Lab Interpretation (test code = 94697-5) Normal [facility]land[facility] WITH [id number] 18:28:10* Test Item Value Reference Range Interpretation Comme nts WBC (test code = 6690-2) 6.18 See_Comment [Automated messa ge] The system which generated this result transmitted reference range: 4.20 - 10.70 10*3/?L. The reference range was not used to interpret this result as normal/abnormal. RBC (test code = 789-8) 3.17 See_Comment L [Automated messa ge] The system which generated this result transmitted reference range: 4.26 - 5.52 10*6/?L. The reference range was not used to interpret this result as normal/abnormal. HGB (test code = 718-7) 9.6 g/dL 12.2-16.4 L HCT (test code = 4544-3) 29.6 % 38.4-49.3 L MCV (test code = 787-2) 93.4 fL 81.7-95.6 MCH (test code = 785-6) 30.3 pg 26.1-32.7 MCHC (test code = 786-4) 32.4 g/dL 31.2-35.0 RDW-SD (test code = 51323-8) 49.1 fL 38.5-51.6 RDW-CV (test code = 788-0) 14.4 % 12.1-15.4 PLT (test code = 777-3) 220 See_Comment [Automated messa ge] The system which generated this result transmitted reference range: 150 - 328 10*3/?L. The reference range was not used to interpret this result as normal/abnormal. MPV (test code = 63029-8) 10.9 fL 9.8-13.0 NRBC/100 WBC (test code = 9702786365) 0.0 See_Comment [Automated [employer] ssage] The system which generated this result transmitted reference range: 0.0 - 10.0 /100 WBCs. The reference range was not used to interpret this result as normal/abnormal. NRBC x10^3 (test code = 4260612054) See_Comment [Automated messa ge] The system which generated this result transmitted reference range: 10*3/?L. The reference range was not used to interpret this result as normal/abnormal. GRAN MAT (NEUT) % (test code = 770-8) 79.8 % IMM GRAN % (test code = 5881037829) 0.20 % LYMPH % (test code = 736-9) 8.6 % MONO % (test code = 5905-5) 8.1 % EOS % (test code = 713-8) 2.8 % BASO % (test code = 706-2) 0.5 % GRAN MAT x10^3(ANC) (test code = 2256587697) 4.94 10*3/uL 1.99-6.95 IMM GRAN x10^3 (test code = 4093610259) 0.00-0.06 LYMPH x10^3 (test code = 731-0) 0.53 10*3/uL 1.09-3.23 L MONO x10^3 (test code = 742-7) 0.50 10*3/uL 0.36-1.02 EOS x10^3 (test code = 711-2) 0.17 10*3/uL 0.06-0.53 BASO x10^3 (test code = 704-7) 0.03 10*3/uL 0.01-0.09 Lab Interpretation (test code = 29197-7) Abnormal [facility] W/AUTO [id number] 00:00:00* Test Item Value Reference Range Interpretation Comme nts NUCLEATED RBCS (test code = 78026-7) 0.0 /100 WBC'S See_Comment [Automated messa ge] The system which generated this result transmitted reference range: 0.0 /100 WBC'S. The reference range was not used to interpret this result as normal/abnormal. ABSOLUTE EOSINOPHILS (test code = 91521-2) 0.16 K/UL See_Comment [Automated messa ge] The system which generated this result transmitted reference range: 0.00-0.50 K/UL. The reference range was not used to interpret this result as normal/abnormal. ABSOLUTE LYMPHOCYTES (test code = 87016-1) 0.71 K/UL See_Comment L [Automated messa ge] The system which generated this result transmitted reference range: 1.00-4.00 K/UL. The reference range was not used to interpret this result as normal/abnormal. ABSOLUTE MONOCYTES (test code = 07013-8) 0.65 K/UL See_Comment [Automated messa ge] The system which generated this result transmitted reference range: 0.20-1.00 K/UL. The reference range was not used to interpret this result as normal/abnormal. ABSOLUTE NEUTROPHILS (test code = 21315-4) 3.67 K/UL See_Comment [Automated messa ge] The system which generated this result transmitted reference range: 1.50-7.50 K/UL. The reference range was not used to interpret this result as normal/abnormal. BASOPHILS (test code = 38894-4) 0.6 % EOSINOPHILS (test code = 46584-0) 3.1 % HEMATOCRIT (test code = 98598-0) 33.8 % See_Comment L [Automated messa ge] The system which generated this result transmitted reference range: 40.0-51.0 %. The reference range was not used to interpret this result as normal/abnormal. HEMOGLOBIN (test code = 718-7) 10.4 G/DL See_Comment L [Automated messa ge] The system which generated this result transmitted reference range: 13.5-17.0 G/DL. The reference range was not used to interpret this result as normal/abnormal. LYMPHOCYTES (test code = 04838-5) 13.6 % MCH (test code = 83032-2) 29.6 PG See_Comment [Automated messa ge] The system which generated this result transmitted reference range: 25.0-33.0 PG. The reference range was not used to interpret this result as normal/abnormal. MCHC (test code = 83599-8) 30.8 G/DL See_Comment L [Automated messa ge] The system which generated this result transmitted reference range: 31.0-36.0 G/DL. The reference range was not used to interpret this result as normal/abnormal. MCV (test code = 72410-8) 96.3 fL See_Comment [Automated messa ge] The system which generated this result transmitted reference range: 80.0-99.0 fL. The reference range was not used to interpret this result as normal/abnormal. MONOCYTES (test code = 48402-6) 12.4 % NEUTROPHILS (test code = 90345-0) 70.1 % PLATELET COUNT (test code = 61931-2) 262 K/UL See_Comment [Automated messa ge] The system which generated this result transmitted reference range: 130-400 K/UL. The reference range was not used to interpret this result as normal/abnormal. RBC (test code = 75556-9) 3.51 M/UL See_Comment L [Automated messa ge] The system which generated this result transmitted reference range: 4.50-6.10 M/UL. The reference range was not used to interpret this result as normal/abnormal. RDW (test code = 95701-4) 14.3 % See_Comment [Automated messa ge] The system which generated this result transmitted reference range: 11.5-15.0 %. The reference range was not used to interpret this result as normal/abnormal. WBC (test code = 45650-9) 5.2 K/UL See_Comment [Automated messa ge] The system which generated this result transmitted reference range: 3.5-11.0 K/UL. The reference range was not used to interpret this result as normal/abnormal. POCT GLUCOSE (AUTOMATED)2022-07-11 20:27:38* Test Item Value Reference Range Interpretation Comme [facility] POCT GLU (test code = 4167363920) 238 mg/dL 70-110 H Lab Interpretation (test cod e = 75648-3) Abnormal [facility] GLUCOSE(AGE >30DAYS)2022-07-11 20:27:00* Test Item Value Reference Range Interpretation Comme [facility] POCT Glu (age>30days) (test code = 3342) 238 mg/dL 70-110 A Lab Interpretation (test cod e = 85451-6) Abnormal [facility] GLUCOSE (AUTOMATED)2022-05-23 17:49:01* Test Item Value Reference Range Interpretation Comme nts POCT GLU (test code = 8831653589) 255 mg/dL 70-110 H Lab Interpretation (test cod e = 00408-0) Abnormal [facility] GLUCOSE (AUTOMATED)2022-05-23 13:53:50* Test Item Value Reference Range Interpretation Comme nts POCT GLU (test code = 1690332098) 119 mg/dL 70-110 H Lab Interpretation (test cod e = 76847-3) Abnormal [facility] GLUCOSE (AUTOMATED)2022-05-23 10:55:26* Test Item Value Reference Range Interpretation Comme nts POCT GLU (test code = 9398787337) 74 mg/dL 70-110 Lab Interpretation (test cod e = 67031-8) Normal [facility] GLUCOSE (AUTOMATED)2022-05-23 10:55:26* Test Item Value Reference Range Interpretation Comme nts POCT GLU (test code = 6007143771) 104 mg/dL 70-110 Lab Interpretation (test cod e = 78906-3) Normal [facility] GLUCOSE (AUTOMATED)2022-05-23 10:12:43* Test Item Value Reference Range Interpretation Comme nts POCT GLU (test code = 2711728473) 137 mg/dL 70-110 H Lab Interpretation (test cod e = 02445-1) Abnormal [facility] GLUCOSE (AUTOMATED)2022-05-23 02:49:14* Test Item Value Reference Range Interpretation Comme nts POCT GLU (test code = 2314834260) 187 mg/dL 70-110 H Lab Interpretation (test cod e = 82626-8) Abnormal [facility] GLUCOSE (AUTOMATED)2022-05-22 22:40:24* Test Item Value Reference Range Interpretation Comme nts POCT GLU (test code = 0542310452) 157 mg/dL 70-110 H Lab Interpretation (test cod e = 20600-9) Abnormal [facility] GLUCOSE (AUTOMATED)2022-05-22 17:40:20* Test Item Value Reference Range Interpretation Comme nts POCT GLU (test code = 6092764718) 168 mg/dL 70-110 H Lab Interpretation (test cod e = 05017-3) Abnormal [facility] GLUCOSE (AUTOMATED)2022-05-22 13:31:16* Test Item Value Reference Range Interpretation Comme nts POCT GLU (test code = 1575966289) 123 mg/dL 70-110 H Lab Interpretation (test cod e = 51702-1) Abnormal [facility] GLUCOSE (AUTOMATED)2022-05-22 10:48:58* Test Item Value Reference Range Interpretation Comme nts POCT GLU (test code = 6625787908) 66 mg/dL 70-110 L Lab Interpretation (test cod e = 88706-8) Abnormal [facility] GLUCOSE (AUTOMATED)2022-05-22 10:33:51* Test Item Value Reference Range Interpretation Comme nts POCT GLU (test code = 7348533202) 102 mg/dL 70-110 Lab Interpretation (test cod e = 73888-9) Normal [facility] GLUCOSE (AUTOMATED)2022-05-22 02:29:52* Test Item Value Reference Range Interpretation Comme nts POCT GLU (test code = 2966838643) 210 mg/dL 70-110 H Lab Interpretation (test cod e = 26307-0) Abnormal [facility] GLUCOSE (AUTOMATED)2022-05-21 23:05:17* Test Item Value Reference Range Interpretation Comme nts POCT GLU (test code = 6611202368) 114 mg/dL 70-110 H Lab Interpretation (test cod e = 90218-6) Abnormal [facility] GLUCOSE (AUTOMATED)2022-05-21 17:22:57* Test Item Value Reference Range Interpretation Comme nts POCT GLU (test code = 7121042066) 168 mg/dL 70-110 H Lab Interpretation (test cod e = 19360-0) Abnormal [facility] GLUCOSE (AUTOMATED)2022-05-21 13:41:32* Test Item Value Reference Range Interpretation Comme nts POCT GLU (test code = 9602842936) 107 mg/dL 70-110 Lab Interpretation (test cod e = 64186-5) Normal [facility] GLUCOSE (AUTOMATED)2022-05-21 10:36:02* Test Item Value Reference Range Interpretation Comme nts POCT GLU (test code = 9547755077) 82 mg/dL 70-110 Lab Interpretation (test cod e = 89512-3) Normal [facility] GLUCOSE (AUTOMATED)2022-05-21 06:08:17* Test Item Value Reference Range Interpretation Comme nts POCT GLU (test code = 4106058139) 131 mg/dL 70-110 H Lab Interpretation (test cod e = 41593-4) Abnormal [facility] GLUCOSE (AUTOMATED)2022-05-21 02:34:12* Test Item Value Reference Range Interpretation Comme nts POCT GLU (test code = 5894384741) 230 mg/dL 70-110 H Lab Interpretation (test cod e = 55986-1) Abnormal [facility] GLUCOSE (AUTOMATED)2022-05-20 22:53:14* Test Item Value Reference Range Interpretation Comme nts POCT GLU (test code = 7342327780) 102 mg/dL 70-110 Lab Interpretation (test cod e = 96054-6) Normal [facility] GLUCOSE (AUTOMATED)2022-05-20 17:33:36* Test Item Value Reference Range Interpretation Comme nts POCT GLU (test code = 6009549210) 210 mg/dL 70-110 H Lab Interpretation (test cod e = 05975-3) Abnormal [facility] GLUCOSE (AUTOMATED)2022-05-20 14:33:47* Test Item Value Reference Range Interpretation Comme nts POCT GLU (test code = 3278276245) 157 mg/dL 70-110 H Lab Interpretation (test cod e = 14734-1) Abnormal [facility] GLUCOSE (AUTOMATED)2022-05-20 07:13:08* Test Item Value Reference Range Interpretation Comme nts POCT GLU (test code = 6592372754) 116 mg/dL 70-110 H Lab Interpretation (test cod e = 23663-6) Abnormal [facility] GLUCOSE (AUTOMATED)2022-05-20 03:12:25* Test Item Value Reference Range Interpretation Comme nts POCT GLU (test code = 0106213292) 213 mg/dL 70-110 H Lab Interpretation (test cod e = 55860-8) [facility]A1C)2022-05-20 01:29:37* Test Item Value Reference Range Interpretation Comme [facility] HGB A1C (test code = 4548-4) 8.2 % 4.0-5.7 H KELLE (test code = KELLE) Reference RangesNormal: <5.7%Prediabetes: 5.7 - 6.4%Diabetes: > 6.5% Lab Interpretation (test code = 45765-0) [facility] 23:25:45* Test Item Value Reference Range Interpretation Comme [facility] POCT GLU (test code = 2320781974) 183 mg/dL 70-110 H Lab Interpretation (test cod e = 75710-0) [facility]normal [facility] [id number] 17:39:13* Test Item Value Reference Range Interpretation Comments TROPONIN I (test code = 9255573394) 0.022 ng/mL See_Comment [Automated message] The system which generated this result transmitted reference range: <=0.034. The reference range was not used to interpret this result as normal/abnormal. KELLE (test code = KELLE) Reference (Normal) Range (defined by the 99th percentile reference limit): <= 0.034 ng/mL Note: Cardiac troponin begins to rise 3-4 hours after the onset of ischemia. Repeat in 4-6 hours if the sample was drawn within 3-4 hours of the onset of the symptom and found normal. Diagnosis of myocardial injury is made with acute changes in cTn concentrations with at least one serial sample above the 99th percentile upper reference limit (URL), taken together with the patient's clinical presentation. Biotin has been reported to cause a negative bias, interpret results relative to patient's use of biotin. Lab Interpretation (test code = 45667-1) Normal [facility] [id number] 17:36:11* Test Item Value Reference Range Interpretation Comme [facility] NT-proBNP (test code = 3797778097) 69401 pg/mL See_Comment H [Automated message] The system which generated this result transmitted reference range: <=125. The reference range was not used to interpret this result as normal/abnormal. KELLE (test code = KELLE) Biotin has been reported to cause a negative bias, interpret results relative to patient's use of biotin. Lab Interpretation (test code = 71268-3) [facility] (44765)2022-05-19 17:27:52* Test Item Value Reference Range Interpretation Comme nts NA (test code = 6195667810) 136 mmol/L 135-145 K (test code = 3879072530) 5.0 mmol/L 3.5-5.0 CL (test code = 1401172746) 101 mmol/L 98-108 CO2 TOTAL (test code = 7531723828) 27 mmol/L 23-31 AGAP (test code = 2585634473) 8 2-16 BUN (test code = 6654901467) 42 mg/dL 7-23 H GLUCOSE (test code = [id number]) 254 mg/dL 70-110 H CREATININE (test code = 1667614444) 2.41 mg/dL 0.60-1.25 H TOTAL BILI (test code = 0451469813) 1.0 mg/dL 0.1-1.1 CALCIUM (test code = 8835750318) 8.5 mg/dL 8.6-10.6 L T PROTEIN (test code = 1224938305) 7.7 g/dL 6.3-8.2 ALBUMIN (test code = 1984396680) 3.7 g/dL 3.5-5.0 ALK PHOS (test code = 6739153186) 150 U/L 34-122 H ALTv (test code = 1742-6) 15 U/L 5-50 AST(SGOT) (test code = 8385196752) 26 U/L 13-40 eGFR (test code = 6038187890) 27.6 mL/min/1.73m2 KELLE (test code = KELLE) Association of Glomerular Filtration Rate (GFR) and Staging of Kidney Disease* + --+ --+ ------+| GFR (mL/min/1.73 m2) ?| With Kidney Damage ?| ?Without Kidney Damage+ --------+ --------+ +| ?>90 ?| ?Stage one ?| ? Normal ?+ ---+ ---+ -------+| ?60-89 ?| ?Stage two ?| ? Decreased GFR ? + --+ --+ ------+| ?30-59 ?| ?Stage three ?| ? Stage three ? + --+ --+ ------+| ?15-29 ?| ?Stage four ? | ? Stage four ?+ ---+ ---+ -------+| ?<15 (or dialysis) ? ?| ?Stage five ? | ? Stage five ?+ ---+ ---+ -------+ *Each stage assumes the associated GFR level has been in effect for at least three months. ?Stages 1 to 5, with or without kidney disease, indicate chronic kidney disease. Notes: Determination of stages one and two (with eGFR >59mL/min/1.73 m2) requires estimation of kidney damage for at least three months as defined by structural or functional abnormalities of the kidney, manifested by either:Pathological abnormalities or Markers of kidney damage (including abnormalities in the composition of the blood or urine or abnormalities in imaging tests). Lab Interpretation (test code = 32870-9) [facility]* Test Item Value Reference Range Interpretation Comme nts MAGNESIUM (test code = 9502439576) 1.6 mg/dL 1.7-2.4 L Lab Interpretation (test cod e = 91614-1) Abnormal [facility] WITH [id number] 17:23:30* Test Item Value Reference Range Interpretation Comme nts WBC (test code = 6690-2) 5.84 See_Comment [Automated [place] HLR Properties] The system which generated this result transmitted reference range: 4.20 - 10.70 10*3/?L. The reference range was not used to interpret this result as normal/abnormal. RBC (test code = 789-8) 3.81 See_Comment L [Automated [place] HLR Properties] The system which generated this result transmitted reference range: 4.26 - 5.52 10*6/?L. The reference range was not used to interpret this result as normal/abnormal. HGB (test code = 718-7) 10.8 g/dL 12.2-16.4 L HCT (test code = 4544-3) 34.6 % 38.4-49.3 L MCV (test code = 787-2) 90.8 fL 81.7-95.6 MCH (test code = 785-6) 28.3 pg 26.1-32.7 MCHC (test code = 786-4) 31.2 g/dL 31.2-35.0 RDW-SD (test code = 30318-2) 61.1 fL 38.5-51.6 H RDW-CV (test code = 788-0) 18.4 % 12.1-15.4 H PLT (test code = 777-3) 261 See_Comment [Automated messa ge] The system which generated this result transmitted reference range: 150 - 328 10*3/?L. The reference range was not used to interpret this result as normal/abnormal. MPV (test code = 00661-9) 11.6 fL 9.8-13.0 NRBC/100 WBC (test code = 5172570081) 0.0 See_Comment [Automated [employer] ssage] The system which generated this result transmitted reference range: 0.0 - 10.0 /100 WBCs. The reference range was not used to interpret this result as normal/abnormal. NRBC x10^3 (test code = 1800048483) See_Comment [Automated messa ge] The system which generated this result transmitted reference range: 10*3/?L. The reference range was not used to interpret this result as normal/abnormal. GRAN MAT (NEUT) % (test code = 770-8) 81.1 % IMM GRAN % (test code = 8047723807) 0.30 % LYMPH % (test code = 736-9) 8.9 % MONO % (test code = 5905-5) 8.2 % EOS % (test code = 713-8) 1.0 % BASO % (test code = 706-2) 0.5 % GRAN MAT x10^3(ANC) (test code = 8467894838) 4.73 10*3/uL 1.99-6.95 IMM GRAN x10^3 (test code = 8984152477) 0.00-0.06 LYMPH x10^3 (test code = 731-0) 0.52 10*3/uL 1.09-3.23 L MONO x10^3 (test code = 742-7) 0.48 10*3/uL 0.36-1.02 EOS x10^3 (test code = 711-2) 0.06 10*3/uL 0.06-0.53 BASO x10^3 (test code = 704-7) 0.03 10*3/uL 0.01-0.09 Lab Interpretation (test code = 65214-1) Abnormal [facility] W/AUTO [id number] 00:00:00* Test Item Value Reference Range Interpretation Comme nts WBC (test code = 85535-3) 6.2 K/UL See_Comment [Automated messa ge] The system which generated this result transmitted reference range: 3.5-11.0 K/UL. The reference range was not used to interpret this result as normal/abnormal. RBC (test code = 82911-5) 3.38 M/UL See_Comment L [Automated messa ge] The system which generated this result transmitted reference range: 4.50-6.10 M/UL. The reference range was not used to interpret this result as normal/abnormal. HEMOGLOBIN (test code = 718-7) 9.2 G/DL See_Comment L [Automated messa ge] The system which generated this result transmitted reference range: 13.5-17.0 G/DL. The reference range was not used to interpret this result as normal/abnormal. HEMATOCRIT (test code = 03445-2) 30.5 % See_Comment L [Automated messa ge] The system which generated this result transmitted reference range: 40.0-51.0 %. The reference range was not used to interpret this result as normal/abnormal. MCV (test code = 26788-3) 90.2 fL See_Comment [Automated messa ge] The system which generated this result transmitted reference range: 80.0-99.0 fL. The reference range was not used to interpret this result as normal/abnormal. MCH (test code = 58563-5) 27.2 PG See_Comment [Automated messa ge] The system which generated this result transmitted reference range: 25.0-33.0 PG. The reference range was not used to interpret this result as normal/abnormal. MCHC (test code = 83638-7) 30.2 G/DL See_Comment L [Automated messa ge] The system which generated this result transmitted reference range: 31.0-36.0 G/DL. The reference range was not used to interpret this result as normal/abnormal. RDW (test code = 28845-0) 14.3 % See_Comment [Automated [employer] HLR Properties] The system which generated this result transmitted reference range: 11.5-15.0 %. The reference range was not used to interpret this result as normal/abnormal. NEUTROPHILS (test code = 49686-6) 80.7 % LYMPHOCYTES (test code = 33361-3) 9.0 % MONOCYTES (test code = 70966-1) 8.0 % EOSINOPHILS (test code = 44501-0) 1.8 % BASOPHILS (test code = 65165-1) 0.3 % NUCLEATED RBCS (test code = 29290-0) 0.0 /100 WBC'S See_Comment [Automated [employer] HLR Properties] The system which generated this result transmitted reference range: 0.0 /100 WBC'S. The reference range was not used to interpret this result as normal/abnormal. PLATELET COUNT (test code = 26191-2) 257 K/UL See_Comment [Automated [employer] HLR Properties] The system which generated this result transmitted reference range: 130-400 K/UL. The reference range was not used to interpret this result as normal/abnormal. Consult Notes Date/Time Note Provider Source 2024-06-02 11:58:40 Associated Order(s): CONSULT PS PASTORAL CARE Visit Encounter: The Material Dispatcher visited the patient at bedside. Family member was at bedside. Gnosticism:Shinto Spiritual Assessment: active member of the Shinto mormon Patient Encounter: Alert and comfortable, seated upright in bed Patient was polite and receptive to the Material Dispatcher's presence. Visitors present: No Room setting: Well-lit, shades opened / lights turned on. Spiritual Intervention: Explored patient's spiritual, emotional and psychosocial needs Ministry of Listening with Empathy The [facility] Pres[facility] Meditative Prayer/Taylor Validated feelings where appropriate Outcome: Requested prayer for healing, peace, comfort and renewed strength to endure multiple health and personal challenges. Patient openly shared information about health, life story, and expressed concerns Patient expressed desire for renewed spiritual strength and comfort Patient appeared receptive to spiritual support and indicated he/she was comforted by the project management director's visit. Patient thanked the project management director for the prayer and visit Plan of Care: Spiritual, emotional and psychosocial care will be available when the patient has a need. Pastoral Care Follow-Up: As Needed Rev.Crystal Nitin BURNETT Material Dispatcher I [facility] Department of Pastoral Care Pager: [phone] CONSULTANT Sarah Taveras [facility] - Health 2024-05-30 15:19:03 Associated Order(s): CONSULT CARDIOLOGY Images from the original note were not included. Cardiology Consult Note Date of Service: 05/30/2024 Reason for Consultation: Srinivasa Hernandez is a 63 year old male with history of CAD s/p CABG, EF 20-25% admitted with gastric perforation that may warrant operation, also elevated troponins- please eval and provide any recs for preop optimization CHIEF COMPLAINT: GIB HISTORY OF PRESENT ILLNESS Srinivasa Hernandez is a 63 year old male with a PMHx of CAD s/p PCI in 2013 and 3-v CABG (GALAVIZ to LAD. SVG to OM3/PDA) in 03/2015, ICD in 2016,DMII/Ischemic CM/HTN/DLP/Hypothyroidism and ESRD on HD is presenting for GIB and was found to have contained gastric perforation. Patient had a recent admission for GIB for which he underwent embolization with IR of gastroduodenal artery. On arrival, hgb is 4.9, received 2 units of PRBCs and hgb improved to 7.6>8.3. Patient's troponin is 0.048. 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 Gout Ischemic cardiomyopathy 06/15/2014 EF 20% per pt 10/04, 15-20% 11/2015 LA (myocardial infarction) Pacemaker S/P CABG x 3 Type 2 diabetes mellitus without complication 11/23/2015 Past Surgical History: Past Surgical History: Procedure Laterality Date CABG, ARTERIAL, THREE 03/2015 [place] Tech ESOPHAGOGASTRODUODENOSCOPY N/A 05/17/2024 Surgeon: Luis Pace MD; Location: [facility] OR LOCATION IMPLANTABLE CARDIOVERTER DEFIBRILLATOR PLACEMENT 08/2016 PACEMAKERS INSERTION 08/2016 PERMACATH PLACEMENT Right 05/09/2024 Surgeon: Asad Morgan MD; Location: [facility] OR LOCATION PTCA W/POSSIBLE STENT 09/2013 [facility] PTFE GRAFT INSERTION Right 05/09/2024 Surgeon: Asad Morgan MD; Location: [facility] OR LOCATION Family History: Family History Problem Relation Age of Onset Asthma Mother Heart Father Hypertension Sister Diabetes Sister Diabetes Brother Hypertension Brother Heart Brother No Significant Medical Problems Daughter No Significant Medical Problems Son No Significant Medical Problems Son Allergies: No Known Allergies Medications: Current Facility-Administered Medications Medication Dose Route Frequency Last Rate Last Admin acetaminophen (OFIRMEV) IV piggyback 1,000 mg 1,000 mg IV Piggyback ONCE PRN dextrose 50 % in water (D50W) injection 25 mL 25 mL Slow IV Push PRN fentanyl PF (SUBLIMAZE (PF)) injection 25 mcg 25 mcg Slow IV Push Q4HPRN fluconazole (DIFLUCAN) Piggyback 200 mg 200 mg IV Piggyback Q24H ABX 100 mL/hr at 05/30/24 0757 200 mg at 05/30/24 0757 glucagon HCL injection 1 mg 1 mg Intramuscular PRN NaCl 0.9% (NS) IV infusion 1,000 mL 1,000 mL IV Infusion CONTINUOUS 20 mL/hr at 05/30/24 0509 1,000 mL at 05/30/24 0509 ondansetron (ZOFRAN (PF)) injection 4 mg 4 mg Slow IV Push Q6HPRN 4 mg at 05/30/24 1200 pantoprazole (PROTONIX) injection 40 mg 40 mg Slow IV Push Q12H ABX 40 mg at 05/30/24 0518 piperacillin-tazobactam (ZOSYN) 3.375 g in NaCl 0.9% (NS) 100 mL MINI-BAG 3.375 g IV Piggyback Q12H ABX Sliding Scale Insulin - Lispro (HumaLOG) Subcutaneous Q4H Current Outpatient Medications Medication Sig Dispense Refill pantoprazole 40 mg EC tablet Take 1 tablet by mouth in the morning and 1 tablet in the evening. 60 tablet 2 sucralfate 1 gram tablet Take 1 tablet by mouth before meals and at bedtime. 120 tablet 1 ferrous sulfate 325 mg (65 mg iron) EC tablet Take 1 tablet by mouth. allopurinoL 100 mg tablet Take 1 tablet by mouth every Sunday, and Sunday in the evening for 30 days. 12 tablet 0 sacubitriL-valsartan (ENTRESTO) 24-26 mg tablet Take 1 tablet twice daily as long as SBP > 110 180 tablet 1 furosemide 40 mg tablet Take 2 tablets by mouth every morning AND 2 tablets every evening. 120 tablet 5 Magnesium Oxide 420 mg Tab Take 400 mg by mouth in the morning. 30 tablet 0 Blood-Glucose Meter Kit Use TID, DX E11.9 (Brand upon insurance approval) 1 Kit 0 ezetimibe 10 mg tablet Take 1 tablet by mouth in the morning. 90 tablet 3 Insulin [place], Disposable, (BD INSULIN PEN NEEDLE UF) 29 gauge x 1/2" Ndle USE DIRECTED WITH LUIS ANTONIO ONCE A DAY 100 Each 0 TRESIBA FLEXTOUCH U-100 100 unit/mL (3 mL) InPn INJECT 24 UNITS UNDER THE SKIN AT BEDTIME 15 mL 0 atorvastatin 80 mg tablet TAKE 1 TABLET BY MOUTH ONCE DAILY 90 tablet 1 Insulin Syringe-Needle U-100 0.5 mL 31 gauge x 5/16 Syrg Inject insulin 2 times a day. Dx code E11.9. 100 Syringe 11 lancets (FREESTYLE LANCETS) 28 gauge Misc Use TID, DX E11.9 (Brand upon insurance approval) 100 Each 11 ipratropium 0.03 % nasal spray Use 2 Sprays in each nostril 3 (three) times daily. 30 mL 3 nitroglycerin (NITROSTAT) 0.[address] 1 tablet under the tongue every 5 (five) minutes as needed for Chest pain. 1 Bottle 3 Insulin [place], Disposable, 30 gauge x 5/16" Ndle Use as directed 1 Box 6 acetaminophen (TYLENOL EXTRA STRENGTH) 500 mg tablet Take 1 tablet by mouth every 6 (six) hours as needed for Pain. aspirin 81 mg chewable tablet Take 1 tablet by mouth daily. 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 He is , but they have been for 2 years. She accompanies him on his doctor's appointments. Mr. Hernandez is on disability for a [place] in 2013. Exercise: walking and yard work. Social Determinants of Health Financial Resource Strain: Low Risk (01/16/2023) Overall Financial Resource Strain (CARDIA) Difficulty of Paying Living Expenses: Not hard at all Food Insecurity: No Food Insecurity (05/14/2024) NCSS - Food Insecurity Worried About Running Out of Food in the Last Year: No Ran Out of Food in the Last Year: No Transportation Needs: Unmet Transportation Needs (05/14/2024) NCSS - Transportation Lack of Transportation: Yes Physical Activity: Inactive (01/16/2023) Exercise Vital Sign Days of Exercise per Week: 0 days Minutes of Exercise per Session: 0 min Stress: Not on file Social Connections: Unknown (01/16/2023) Social Connection and Isolation Panel [NHANES] Frequency of Communication with Friends and Family: More than three times a week Frequency of Social Gatherings with Friends and Family: Not on file Attends Anabaptism Services: Not on file Active Member of Clubs or Organizations: Not on file Attends Club or Organization Meetings: Not on file Marital Status: Housing Stability: Not At Risk (05/14/2024) NCSS - Housing/Utilities Has Housing: Yes Worried About Losing Housing: No Unable to Get Utilities: No REVIEW OF SYSTEMS: All 12 systems negative except as above VITALS: Temp: [36.1 ?C (97 ?F)-36.8 ?C (98.3 ?F)] Heart Rate (monitor): [78-103] Pulse: [55-103] Resp: [11-28] BP: (95-130)/(43-77) MAP (mmHg): [60-89] O2 Delivery: room air Intake/Output: Intake/Output Summary (Last 24 hours) at 05/30/2024 1519 Last data filed at 05/30/2024 0700 Gross per 24 hour Intake 0 ml Output 75 ml Net -75 ml Wt Readings from Last 4 Encounters: 05/30/24 76.7 kg (169 lb) 05/29/24 76.7 kg (169 lb) 05/19/24 74.9 kg (165 lb 2 oz) 05/12/24 70.3 kg (154 lb 15.7 oz) PHYSICAL EXAMINATION Physical Exam Constitutional: General: He is not in acute distress. HENT: Head: Normocephalic and atraumatic. Mouth/Throat: Mouth: Mucous membranes are dry. Eyes: Extraocular Movements: Extraocular movements intact. Pupils: Pupils are equal, round, and reactive to light. Comments: Pale cojunctiva Cardiovascular: Rate and Rhythm: Normal rate and regular rhythm. Heart sounds: No murmur heard. Pulmonary: Effort: No respiratory distress. Breath sounds: Normal breath sounds. No wheezing. Abdominal: General: There is no distension. Palpations: Abdomen is soft. Tenderness: There is no abdominal tenderness. Musculoskeletal: Cervical back: Normal range of motion and neck supple. Right lower leg: No edema. Left lower leg: No edema. Skin: General: Skin is warm. Coloration: Skin is pale. Neurological: General: No focal deficit present. Mental Status: He is alert and oriented to person, place, and time. Psychiatric: Mood and Affect: Mood normal. Behavior: Behavior normal. Labs, reviewed- pertinent results as below: Labs (last 24 hours): Chemistry CBC LFTs Coags, other 135 105 41 (H) 199 (H) 12.36 (H) 8.3 (L) 226 AST: 30 ALT: 14 PT: 15.3 (H) INR: 1.4 3.7 23 3.24 (H) 24.4 (L) AP: 75 T Dontrell: 0.8 PTT: 46 (H) eGFR: 20.8 Ca: 7.7 (L) % Ibis: 86.7 Prot: 6.5 Alb: 3.0 (L) Lact: 1.68 Procal: - M.3 PO4: 4.0 ANC: 8.54 (H) pBNP: - Trop I: 0.048 (H) Narrative & Impression Ordering physician: MICHAEL HERRERA Indication: Lower GI bleed COMPARISON: CTA of the abdomen and pelvis dated 05/13/2024 TECHNIQUE: CTA of the abdomen and pelvis performed before and after the administration of intravenous contrast material. Three-dimensional reformats were generated following completion of the exam. CT scan was performed according to ALARA (as low as reasonably achievable) policy. FINDINGS: The patient is status post median sternotomy with a multiple lead pacemaker in place. There is a moderate right and large left pleural effusion, with associated atelectasis. The liver, gallbladder, spleen and adrenal glands are within normal limits. There is a new hypoattenuating focus in the neck of the pancreas, measuring 2.9 cm (series 16, image 62). This communicates with a hypoattenuating and air-containing focus at the head of the pancreas (series 16, image 69). The kidneys are normal in appearance bilaterally without hydronephrosis. No abdominal aortic aneurysm or dissection is appreciated. Compared to the previous exam, there is new extraluminal air in the anterior abdomen, predominantly adjacent to the anterior wall of the stomach. There are multiple new embolization coils in the stomach. There is some hyperdense material in the stomach on precontrast imaging. No definite active extravasation is appreciated. There are small to moderate free fluid in the abdomen and pelvis. There is no bowel obstruction, widespread diverticulosis or acute diverticulitis. No intraluminal extravasation of contrast is appreciated. The appendix is identified and within normal limits. Bone windows through the abdomen and pelvis demonstrate no osseous destructive lesion. IMPRESSION Compared to the previous exam, there is new extraluminal air predominantly pancreas is negative [facility] palatine weeks adjacent to the anterior wall of the stomach, suggestive of gastric perforation. The patient is status post interval embolization of multiple arterial structures adjacent to the distal stomach. Small to moderate free fluid in the abdomen and pelvis. Bilateral pleural effusions, large on the left, with associated atelectasis. New hypoattenuating focus in the neck of the pancreas, measuring 2.9 cm. This communicates with a hypoattenuating and air-containing structure near the head of the pancreas. Differential considerations could include pancreatic necrosis and a peripancreatic abscess. RL: [id number] AFC: [id number] Critical Result: Gastric perforation Findings discussed with Dr Davey at 05/30/2024 12:31 AM, who acknowledged receipt and understanding of the findings. : TTE 05/07/24 Left Ventricle Left ventricle is mildly dilated. Normal wall thickness. See diagram for wall motion findings. Severely reduced systolic function with a visually estimated EF of 20 - 25%. There is pseudonormal diastolic dysfunction. Elevated left ventricular filling pressure. Right Ventricle Right ventricle is mildly dilated. Mildly reduced systolic function. There is a pacemaker lead in the right ventricle. Left Atrium Left atrium is mildly dilated. Right Atrium Right atrium is dilated. Lead present in the right atrium. IVC/SVC IVC diameter is less than or equal to 21 mm and decreases greater than 50% during inspiration; therefore the estimated right atrial pressure is normal (~0-5 mmHg). Mitral Valve Mitral valve structure is normal. Trace transvalvular regurgitation. Tricuspid Valve Tricuspid valve structure is normal. Mild transvalvular regurgitation. Right ventricular systolic pressure is 35-40 mmHg. RA pressure is 0-5 mmHg. Aortic Valve Tricuspid. Pulmonic Valve Not well visualized. Trace transvalvular regurgitation. Ascending Aorta Normal sized aorta. Pericardium No pericardial effusion. ASSESSMENT/PLAN Sriinvasa Hernandez is a 63 year old male with PMH as listed above, consulted cardiology for preop evaluation Acute on chronic anemia 2nd to perforated gastric ulcer Troponin elevation most likely chronic myocardial injury CAD S/P CABG Ischemic CM, ICD in 2017 DMII HTN HL ESRD on HD Recommendations: - Patient needs emergent surgery given GIB so no additional cardiac workup is indicated before surgery. We recommend volume optimization through HD since he has receive blood transfusion - When safe, please start baby aspirin, entresto, ezetimibe, and atorvastatin - Telemetry - Optimize electrolytes. Keep K>4, Mg>2. - Cardiology will continue to follow. Discussed with Dr. Gillian MD 05/30/2024 3:19 PM Pouch Maker, PGY IV CONSULTANT Associated attestation - Rosa Summers MD - 06/02/2024 8:34 AM IT CONSULTANT I personally examined the patient on the date of service and agree with Dr. Rubalcava's fellow note. I actively participated in the decision-making process. Please see the resident's note for additional details. CARDIOVASCULAR DISEASE [facility] 2024-05-30 10:42:37 Associated Order(s): CONSULT NEPHROLOGY NEPHROLOGY CONSULT NOTE Consultation requested by: Service: ER Reason for Consultation: ESRD Date of Service: 05/30/2024 History of Present Illness: Srinivasa Hernandez is a 63 year old male has a past medical history of CHF (congestive heart failure), Chronic kidney disease, Coronary artery disease involving [place] coronary artery without angina pectoris (11/23/2015), Essential hypertension (06/15/2014), Gout, Ischemic cardiomyopathy (06/15/2014), LA (myocardial infarction), Pacemaker, S/P CABG x 3, and Type 2 diabetes mellitus without complication (11/23/2015).. Admitted for concerns for gastric perforation.Of note, patient was admitted on 05/13/24 to MICU for upper GI Bleed. Patient underwent IR embolization of gastroduodenal artery and branches on 05/14/24. Endoscopy on 05/17 showed large ischemic gastric ulcer and a nonbleeding duodenal ulcer. Nephro consulted as patient gets HD via Permcath MWF. Last done Sunday. Currently HDS after 2 units of blood. No acute abdomen and current plan is to closely observe with no emergent need to take to OR. Patient is relatively new to HD, as he was started 05/09/2024. Will plan for cHD tomorrow AM given availability of dialysis staff for ICU level of care. 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 Gout Ischemic cardiomyopathy 06/15/2014 EF 20% per pt 10/04, 15-20% 11/2015 [place] (myocardial infarction) Pacemaker S/P CABG x 3 Type 2 diabetes mellitus without complication 11/23/2015 Past Surgical History: Procedure Laterality Date CABG, ARTERIAL, THREE 03/2015 [place] Tech ESOPHAGOGASTRODUODENOSCOPY N/A 05/17/2024 Surgeon: Luis Pace MD; Location: [facility] OR LOCATION IMPLANTABLE CARDIOVERTER DEFIBRILLATOR PLACEMENT 08/2016 PACEMAKERS INSERTION 08/2016 PERMACATH PLACEMENT Right 05/09/2024 Surgeon: Asad Morgan MD; Location: [facility] OR LOCATION PTCA W/POSSIBLE STENT 09/2013 [facility] PTFE GRAFT INSERTION Right 05/09/2024 Surgeon: Asad Morgan MD; Location: [facility] OR LOCATION No Known Allergies Past Medical History: Diagnosis Date CHF (congestive heart failure) Chronic kidney disease Coronary artery disease involving sauk-suiattle coronary artery without angina pectoris 11/23/2015 Essential hypertension 06/15/2014 ICD10 Diagnosis 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 Lungs: clear to auscultation bilaterally, no crackles, or no wheezes. Cardio: S1, S2 normal; no murmurs, rubs or gallops, regular rate and rhythm. Abdomen: BS4Q, soft; non-tender; non-distended. No guarding, rebound. Extremities: no clubbing, cyanosis. + BLE edema. Skin: no rashes Neuro: cranial nerves II through XII grossly intact; sensation grossly intact; muscle strength 5 out of 5 in all four extremities HD access: Right permcath LABORATORY Recent Results (from the past 24 hour(s)) Cbc with Diff Collection Time: 05/29/24 7:39 PM Result Value Ref Range WBC 9.63 4.20 - 10.70 10*3/?L RBC 1.70 (L) 4.26 - 5.52 10*6/?L HGB 4.9 (LL) 12.2 - 16.4 g/dL HCT 15.9 (L) 38.4 - 49.3 % MCV 93.5 81.7 - 95.6 fL MCH 28.8 26.1 - 32.7 pg MCHC 30.8 (L) 31.2 - 35.0 g/dL RDW-SD 68.7 (H) 38.5 - 51.6 fL RDW-CV 21.2 (H) 12.1 - 15.4 % PLT 262 150 - 328 10*3/?L MPV 12.0 9.8 - 13.0 fL NRBC/100 WBC 0.0 0.0 - 10.0 /100 WBCs NRBC x10 3 <0.01 10*3/?L GRAN MAT (NEUT) % 86.6 % IMM GRAN % 0.60 % LYMPH % 4.2 % MONO % 8.1 % EOS % 0.2 % BASO % 0.3 % GRAN MAT x10 3 (ANC) 8.34 (H) 1.99 - 6.95 10*3/uL IMM GRAN x10 3 0.06 0.00 - 0.06 10*3/uL LYMPH x10 3 0.40 (L) 1.09 - 3.23 10*3/uL MONO x10 3 0.78 0.36 - 1.02 10*3/uL EOS x10 3 <0.03 (L) 0.06 - 0.53 10*3/uL BASO x10 3 0.03 0.01 - 0.09 10*3/uL Comp. Metabolic Panel (78591) Collection Time: 05/29/24 7:39 PM Result Value Ref Range NA 130 (L) 135 - 145 mmol/L K 4.1 3.5 - 5.0 mmol/L CL 101 98 - 108 mmol/L CO2 TOTAL 23 23 - 31 mmol/L AGAP 6 2 - 16 BUN 36 (H) 7 - 23 mg/dL GLUCOSE 251 (H) 70 - 110 mg/dL CREATININE 2.89 (H) 0.60 - 1.25 mg/dL TOTAL BILI 0.8 0.1 - 1.1 mg/dL CALCIUM 8.1 (L) 8.6 - 10.6 mg/dL T PROTEIN 6.5 6.3 - 8.2 g/dL ALBUMIN 3.0 (L) 3.5 - 5.0 g/dL ALK PHOS 75 34 - 122 U/L ALTv 14 5 - 50 U/L AST(SGOT) 30 13 - 40 U/L eGFR 23.8 mL/min/1.73m2 Troponin I Collection Time: 05/29/24 7:39 PM Result Value Ref Range TROPONIN I 0.048 (H) <=0.034 ng/mL Type and Screen - ONCE Routine Collection Time: 05/29/24 8:22 PM Result Value Ref Range ABO & RH O POSITIVE IAT Negative Prepare Packed RBC (in units), 2 Units Collection Time: 05/30/24 1:13 AM Result Value Ref Range Cross Match Result Compatible ISBT Blood Type Code 5100 Unit Blood Type O Pos Unit Number [id number] Blood Expiration Date & Time [id number] Status Information Issued Product Identification Red Blood Cells Product Code [id number] Cross Match Result Compatible ISBT Blood Type Code 5100 Unit Blood Type O Pos Unit Number [id number] Blood Expiration Date & Time [id number] Status Information Issued Product Identification Red Blood Cells Product Code [id number] Lactic Acid Whole Blood Collection Time: 05/30/24 1:19 AM Result Value Ref Range LACTIC ACID 1.68 0.50 - 2.20 mmol/L Cbc with Diff Collection Time: 05/30/24 3:55 AM Result Value Ref Range WBC 9.86 4.20 - 10.70 10*3/?L RBC 2.51 (L) 4.26 - 5.52 10*6/?L HGB 7.6 (L) 12.2 - 16.4 g/dL HCT 22.4 (L) 38.4 - 49.3 % MCV 89.2 81.7 - 95.6 fL MCH 30.3 26.1 - 32.7 pg MCHC 33.9 31.2 - 35.0 g/dL RDW-SD 50.4 38.5 - 51.6 fL RDW-CV 16.7 (H) 12.1 - 15.4 % PLT 200 150 - 328 10*3/?L MPV 11.0 9.8 - 13.0 fL NRBC/100 WBC 0.2 0.0 - 10.0 /100 WBCs NRBC x10 3 0.02 10*3/?L GRAN MAT (NEUT) % 86.7 % IMM GRAN % 0.60 % LYMPH % 3.0 % MONO % 9.4 % EOS % 0.2 % BASO % 0.1 % GRAN MAT x10 3 (ANC) 8.54 (H) 1.99 - 6.95 10*3/uL IMM GRAN x10 3 0.06 0.00 - 0.06 10*3/uL LYMPH x10 3 0.30 (L) 1.09 - 3.23 10*3/uL MONO x10 3 0.93 0.36 - 1.02 10*3/uL EOS x10 3 <0.03 (L) 0.06 - 0.53 10*3/uL BASO x10 3 <0.03 0.01 - 0.09 10*3/uL Basic Metabolic Panel (NA, K, CL, CO2, GLUCOSE, BUN, CREATININE, CA) Collection Time: 05/30/24 3:55 AM Result Value Ref Range NA 133 (L) 135 - 145 mmol/L K 3.3 (L) 3.5 - 5.0 mmol/L CL 102 98 - 108 mmol/L CO2 TOTAL 23 23 - 31 mmol/L AGAP 8 2 - 16 BUN 38 (H) 7 - 23 mg/dL GLUCOSE 217 (H) 70 - 110 mg/dL CREATININE 3.05 (H) 0.60 - 1.25 mg/dL CALCIUM 7.7 (L) 8.6 - 10.6 mg/dL eGFR 22.3 mL/min/1.73m2 Magnesium Collection Time: 05/30/24 3:55 AM Result Value Ref Range MAGNESIUM 1.6 (L) 1.7 - 2.4 mg/dL Phosphorus Collection Time: 05/30/24 3:55 AM Result Value Ref Range PHOSPHORUS 3.8 2.5 - 5.0 mg/dL Troponin I Collection Time: 05/30/24 3:55 AM Result Value Ref Range TROPONIN I 0.048 (H) <=0.034 ng/mL Fibrinogen Collection Time: 05/30/24 3:55 AM Result Value Ref Range Fibrinogen 396 167 - 453 mg/dL Activated Partial Thrmplas Matilde Collection Time: 05/30/24 3:55 AM Result Value Ref Range APTT Patient 46 (H) 26 - 36 Seconds Prothrombin Time / INR Collection Time: 05/30/24 3:55 AM Result Value Ref Range PROTIME PATIENT 15.3 (H) 10.1 - 12.6 Seconds INR 1.4 POCT Glucose (Age >30 Days) Collection Time: 05/30/24 7:49 AM Result Value Ref Range POCT Glu (age>30days) 224 (A) 70 - 110 mg/dL POCT GLUCOSE (AUTOMATED) Collection Time: 05/30/24 7:49 AM Result Value Ref Range POCT GLU 224 (H) 70 - 110 mg/dL RADIOLOGY: CT Angiogram abdomen/pelvis Result Date: 05/30/2024 Compared to the previous exam, there is new extraluminal air predominantly pancreas is negative Lisa radiology palatine weeks adjacent to the anterior wall of the stomach, suggestive of gastric perforation. The patient is status post interval embolization of multiple arterial structures adjacent to the distal stomach. Small to moderate free fluid in the abdomen and pelvis. Bilateral pleural effusions, large on the left, with associated atelectasis. New hypoattenuating focus in the neck of the pancreas, measuring 2.9 cm. This communicates with a hypoattenuating and air-containing structure near the head of the pancreas. Differential considerations could include pancreatic necrosis and a peripancreatic abscess. RL: 460 AFC: [id number] Critical Result: Gastric perforation Findings discussed with Dr Davey at 05/30/2024 12:31 AM, who acknowledged receipt and understanding of the findings. SSMENT Srinivasa Hernandez is a 63 year old male with PMH as noted above. Nephrology is consulted for ESRD. # ESRD MWF: Access via Right Permcath. Hemodialysis consent obtained. Last hemodialysis session 05/28. EDW: unknown kg Admission weight: 76.7 kg - HD tomorrow and will plan TTS inpatient - Check BMP, Phosphorous on HD days - Strict I&O's, Daily weights, avoid nephrotoxins/contrast studies # Electrolytes: - Correct with HD # Acid/Base: - Correct with HD # Volume status: - UF removal per HD # Hemodynamics: -HTN -Hold in setting of active bleed, but if starts to be come significantly hypertensive, then can resume home antihypertensives # Anemia of chronic disease: -Hemoglobin: Target 10-11 g/dL, Hb at 7.6 g/dL after 2 pRBC's -Iron studies will be inaccurate after transfusions, but last month was at goal at 67% -Once GIB/perf resolved will resume EPO # CKD-MBD: - 171 PTH - obtain Phosphorous on dialysis days - Ca acceptable - Phos goal < 5 - Continue phosphate binder Patient was seen and staffed with Dr. Wu. Wes Weiner MD Nephrology and Hypertension Fellow Pager: [phone] CONSULTANT Associated attestation - Husam Wu MD - 05/30/2024 2:55 PM IT CONSULTANT I have discussed this patient with the fellow on 05/30/2024 . I have reviewed the assessment and plan as outlined in the progress note and agree with the overall approach to this patient. I personally participated in the decision-making process as relates to this patient's medical condition. Please refer to above progress note for details of the medical care provided. Husam Wu MD [facility] Division of Nephrology & Hypertension NEPHROLOGY [facility] 2024-05-30 09:21:13 Associated Order(s): CONSULT GASTROENTEROLOGY Department of Gastroenterology & Hepatology Consult Note Requesting Physician: Prasanth Hernandez DO Service: Carl Reason for Consultation: Abnormal CT Date of Service: 05/30/2024 History of Present Illness Srinivasa Hernandez is a 63 year old /White male with past medical history as below who presents with complaints of abnormal labs. Patient presents to ED after was told from his dialysis center that his hemoglobin was low. Patient denies nausea, vomiting, diarrhea, constipation, blood in stool. Patient was admitted last month for upper GI bleeding status post IR empiric embolization of GDA. Subsequent endoscopy showed large ischemic gastric ulcer without signs of perforation. Patient was transferred 2 units PRBC before transfer to [place]. CT scan with concerns for contained gastric perforation extending to the pancreas. GI consulted. 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 Gout Ischemic cardiomyopathy 06/15/2014 EF 20% per pt 6/14, 15-20% 11/2015 [place] (myocardial infarction) Pacemaker S/P CABG x 3 Type 2 diabetes mellitus without complication 11/23/2015 PAST SURGICAL HISTORY Past Surgical History: Procedure Laterality Date CABG, ARTERIAL, THREE 03/2015 [place] Tech ESOPHAGOGASTRODUODENOSCOPY N/A 05/17/2024 Surgeon: Luis Pace MD; Location: [facility] OR LOCATION IMPLANTABLE CARDIOVERTER DEFIBRILLATOR PLACEMENT 08/2016 PACEMAKERS INSERTION 08/2016 PERMACATH PLACEMENT Right 05/09/2024 Surgeon: Asad Morgan MD; Location: [facility] OR LOCATION PTCA W/POSSIBLE STENT 09/2013 [facility] PTFE GRAFT INSERTION Right 05/09/2024 Surgeon: Asad Morgan MD; Location: [facility] OR LOCATION FAMILY HISTORY Family History Problem Relation Age of Onset Asthma Mother Heart Father Hypertension Sister Diabetes Sister Diabetes Brother Hypertension Brother Heart Brother No Significant Medical Problems Daughter No Significant Medical Problems Son No Significant Medical Problems Son ALLERGIES No Known Allergies MEDICATIONS Current Facility-Administered Medications Medication Dose Route Frequency Last Rate Last Admin acetaminophen (OFIRMEV) IV piggyback 1,000 mg 1,000 mg IV Piggyback ONCE PRN dextrose 50 % in water (D50W) injection 25 mL 25 mL Slow IV Push PRN fentanyl PF (SUBLIMAZE (PF)) injection 25 mcg 25 mcg Slow IV Push Q4HPRN fluconazole (DIFLUCAN) Piggyback 200 mg 200 mg IV Piggyback Q24H ABX 100 mL/hr at 05/30/24 0757 200 mg at 05/30/24 0757 glucagon HCL injection 1 mg 1 mg Intramuscular PRN NaCl 0.9% (NS) IV infusion 1,000 mL 1,000 mL IV Infusion CONTINUOUS 20 mL/hr at 05/30/24 0509 1,000 mL at 05/30/24 0509 ondansetron (ZOFRAN (PF)) injection 4 mg 4 mg Slow IV Push Q6HPRN pantoprazole (PROTONIX) injection 40 mg 40 mg Slow IV Push Q12H ABX 40 mg at 05/30/24 0518 piperacillin-tazobactam (ZOSYN) 3.375 g in NaCl 0.9% (NS) 100 mL MINI-BAG 3.375 g IV Piggyback Q12H ABX Sliding Scale Insulin - Lispro (HumaLOG) Subcutaneous Q4H Current Outpatient Medications Medication Sig Dispense Refill pantoprazole 40 mg EC tablet Take 1 tablet by mouth in the morning and 1 tablet in the evening. 60 tablet 2 sucralfate 1 gram tablet Take 1 tablet by mouth before meals and at bedtime. 120 tablet 1 ferrous sulfate 325 mg (65 mg iron) EC tablet Take 1 tablet by mouth. allopurinoL 100 mg tablet Take 1 tablet by mouth every Sunday, and Sunday in the evening for 30 days. 12 tablet 0 sacubitriL-valsartan (ENTRESTO) 24-26 mg tablet Take 1 tablet twice daily as long as SBP > 110 180 tablet 1 furosemide 40 mg tablet Take 2 tablets by mouth every morning AND 2 tablets every evening. 120 tablet 5 Magnesium Oxide 420 mg Tab Take 400 mg by mouth in the morning. 30 tablet 0 Blood-Glucose Meter Kit Use TID, DX E11.9 (Brand upon insurance approval) 1 Kit 0 ezetimibe 10 mg tablet Take 1 tablet by mouth in the morning. 90 tablet 3 Insulin [place], Disposable, (BD INSULIN PEN NEEDLE UF) 29 gauge x 1/2" Ndle USE DIRECTED WITH LUIS ANTONIO ONCE A DAY 100 Each 0 TRESIBA FLEXTOUCH U-100 100 unit/mL (3 mL) InPn INJECT 24 UNITS UNDER THE SKIN AT BEDTIME 15 mL 0 atorvastatin 80 mg tablet TAKE 1 TABLET BY MOUTH ONCE DAILY 90 tablet 1 Insulin Syringe-Needle U-100 0.5 mL 31 gauge x 5/16 Syrg Inject insulin 2 times a day. Dx code E11.9. 100 Syringe 11 lancets (FREESTYLE LANCETS) 28 gauge Misc Use TID, DX E11.9 (Brand upon insurance approval) 100 Each 11 ipratropium 0.03 % nasal spray Use 2 Sprays in each nostril 3 (three) times daily. 30 mL 3 nitroglycerin (NITROSTAT) 0.[address] 1 tablet under the tongue every 5 (five) minutes as needed for Chest pain. 1 Bottle 3 Insulin [place], Disposable, 30 gauge x 5/16" Ndle Use as directed 1 Box 6 acetaminophen (TYLENOL EXTRA STRENGTH) 500 mg tablet Take 1 tablet by mouth every 6 (six) hours as needed for Pain. aspirin 81 mg chewable tablet Take 1 tablet by mouth daily. 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 He is , but they have been for 2 years. She accompanies him on his doctor's appointments. Mr. Hernandez is on disability for a LA in 2013. Exercise: walking and yard work. Social Determinants of Health Financial Resource Strain: Low Risk (01/16/2023) Overall Financial Resource Strain (CARDIA) Difficulty of Paying Living Expenses: Not hard at all Food Insecurity: No Food Insecurity (05/14/2024) NCSS - Food Insecurity Worried About Running Out of Food in the Last Year: No Ran Out of Food in the Last Year: No Transportation Needs: Unmet Transportation Needs (05/14/2024) NCSS - Transportation Lack of Transportation: Yes Physical Activity: Inactive (01/16/2023) Exercise Vital Sign Days of Exercise per Week: 0 days Minutes of Exercise per Session: 0 min Stress: Not on file Social Connections: Unknown (01/16/2023) Social Connection and Isolation Panel [NHANES] Frequency of Communication with Friends and Family: More than three times a week Frequency of Social Gatherings with Friends and Family: Not on file Attends Anabaptism Services: Not on file Active Member of Clubs or Organizations: Not on file Attends Club or Organization Meetings: Not on file Marital Status: Housing Stability: Not At Risk (05/14/2024) NCSS - Housing/Utilities Has Housing: Yes Worried About Losing Housing: No Unable to Get Utilities: No ROS: 10 point review of systems was negative except for the above mentioned PE: BP 130/77 | Pulse 96 | Temp 36.5 ?C (97.7 ?F) | Resp 19 | Ht 1.702 m (5' 7") | Wt 76.7 kg (169 lb) | SpO2 97% | BMI 26.47 kg/m? General: alert, in no apparent distress HEENT: EOMI, no scleral icterus Lungs: clear to auscultation bilaterally Cardio: regular rate and rhythm Abdomen: soft, non-tender, non-distended, no ascites, no hepatosplenomegaly Extremities: no edema, no clubbing or cyanosis Skin: no jaundice Neuro: no focal deficits, no asterixis LABORATORY HGB (g/dL) Date Value 05/30/2024 7.6 (L) 05/29/2024 4.9 (LL) 05/19/2024 8.1 (L) PLT (10*3/?L) Date Value 05/30/2024 200 05/29/2024 262 05/19/2024 153 INR (no units) Date Value 05/30/2024 1.4 05/14/2024 1.5 05/13/2024 1.3 Hepatic Function Panel ALBUMIN (g/dL) Date Value 05/29/2024 3.0 (L) T PROTEIN (g/dL) Date Value 05/29/2024 6.5 TOTAL BILI (mg/dL) Date Value 05/29/2024 0.8 BILI UNCON (mg/dL) Date Value 05/18/2022 0.5 BILI CONJ (mg/dL) Date Value 05/18/2022 0.0 ALT(SGPT) (U/L) Date Value 02/11/2018 26 ALTv (U/L) Date Value 05/29/2024 14 AST(SGOT) (U/L) Date Value 05/29/2024 30 ALK PHOS (U/L) Date Value 05/29/2024 75 BMP NA (mmol/L) Date Value 05/30/2024 133 (L) K (mmol/L) Date Value 05/30/2024 3.3 (L) CALCIUM (mg/dL) Date Value 05/30/2024 7.7 (L) CL (mmol/L) Date Value 05/30/2024 102 BUN (mg/dL) Date Value 05/30/2024 38 (H) CREATININE (mg/dL) Date Value 05/30/2024 3.05 (H) GLUCOSE (mg/dL) Date Value 05/30/2024 217 (H) CO2 TOTAL (mmol/L) Date Value 05/30/2024 23 RADIOLOGY: CT Angiogram abdomen/pelvis Result Date: 05/30/2024 Compared to the previous exam, there is new extraluminal air predominantly pancreas is negative Lisa radiology palatine weeks adjacent to the anterior wall of the stomach, suggestive of gastric perforation. The patient is status post interval embolization of multiple arterial structures adjacent to the distal stomach. Small to moderate free fluid in the abdomen and pelvis. Bilateral pleural effusions, large on the left, with associated atelectasis. New hypoattenuating focus in the neck of the pancreas, measuring 2.9 cm. This communicates with a hypoattenuating and air-containing structure near the head of the pancreas. Differential considerations could include pancreatic necrosis and a peripancreatic abscess. RL: 460 AFC: [id number] Critical Result: Gastric perforation Findings discussed with Dr Davey at 05/30/2024 12:31 AM, who acknowledged receipt and understanding of the findings. Embolization arterial or venous hemorrhage or lymphatic extravasation Result Date: 05/24/2024 Negative mesenteric angiogram for active contrast extravasation or pseudoaneurysm. Empiric embolization of the gastroduodenal artery and its branches was performed utilizing metallic coils and Gelfoam. Preliminary Report Dictated by Resident: Berry Bell Attestation Signer name: Tino Li I attest that I was present for the entire procedure. I reviewed the stored images and agree with the report as written. I, Tino Li MD., have reviewed this study and agree with the above report. XR Chest 1 vw Result Date: 05/17/2024 Impression: Stable, small left apical pneumothorax. Moderate left pleural effusion has increased in size. Moderate interstitial opacities are slightly increased. Trace right pleural effusion. RL: 781 HS: Y Chest 1 vw Result Date: 05/16/2024 Unchanged moderate left hydropneumothorax accounting for technique. Preliminary Report Dictated by Resident: Smiley Zarate MD., have reviewed this study and agree with the above report. CT Angiogram abdomen/pelvis Addendum Date: 05/14/2024 * * * * * * * * ADDENDUM: * * * * * * * * Additional finding: A small to moderate left pneumothorax is also present. Findings and report change were discussed with the patient's Interventional Radiology consulting team on 05/14/2024 at 1:13 PM. These findings were also discussed with the patient's primary MICU team via phone call on 05/14/2024 at 2:20 PM. Preliminary Report Dictated by Resident: Feli Joseph MD., have reviewed this study and agree with the above report. Result Date: 05/14/2024 1. Contrast extravasation with delayed pooling in the proximal duodenum corresponding to active GI bleed in the territory of the gastroduodenal artery (11:48, 17:48, 23:47). 2. Multiple findings suggestive of fluid overload state including: Large left and moderate right pleural effusions, trace pericholecystic fluid and mesenteric edema. Mild cardiomegaly. Mild aortoiliac atherosclerotic disease. 3. Nonspecific circumferential urinary bladder wall thickening. Correlate with urinalysis and physical examination. These findings were discussed with the emergency room physician, Dr. Gross on 05/13/2024 at 9:09 PM. Preliminary Report Dictated by Resident: Feli Joseph MD., have reviewed this study and agree with the above report. XR Chest 1 vw Result Date: 05/12/2024 1. Small left pneumothorax of 10% is stable. 2. Stable moderate left lung basilar patchy opacities. 3. Again mild pulmonary vascular congestion RL: 231 End of report. Chest 1 vw Addendum Date: 05/11/2024 The pleural separation of the pneumothorax is 2.5 cm on the inspiration view and 3.5 cm on the expiration view. Result Date: 05/11/2024 Impression: Essentially stable exam. Small left apical pneumothorax. Mild interstitial opacities with small to moderate left and trace right pleural effusions. These could reflect edema or pneumonitis. RL: 781 HS: Y Chest 1 vw Result Date: 05/10/2024 Unchanged small left apical pneumothorax. Unchanged left basilar consolidation and small pleural effusions. Preliminary Report Dictated by Resident: David Salcido I, Shon Castellon MD., have reviewed this study and agree with the above report. XR Chest 1 vw Result Date: 05/10/2024 Impression: Stable, small left apical pneumothorax. Mild interstitial opacities suggestive of edema or pneumonia. Small to moderate left and trace right pleural effusions. RL: 781 HS: Y Chest 1 vw Result Date: 05/09/2024 1. Small left apical pneumothorax is new. 2. Expected appearance of right IJ central line. 3. Unchanged left basilar consolidation and small pleural effusions. Results were called to Dr. Gibson at 05/09/2024 2:27 PM. End of Report Thoracentesis with imaging Result Date: 05/07/2024 Successful ultrasound guided left thoracentesis. Samples were sent to lab for analysis. PLAN: Post procedure chest radiograph will be obtained. XR Chest 1 vw Result Date: 05/06/2024 Mild interval worsening of moderate-sized left pleural effusion with associated atelectasis. Right-sided patchy infrahilar opacities may represent aspiration, atelectasis and/or developing infection. Recommend clinical correlation with procalcitonin. Preliminary Report Dictated by Resident: David Salcido I, Brennan Nesbitt MD., have reviewed this study and agree with the above report. CHART REVIEW: 05/13 ontrast extravasation with delayed pooling in the proximal duodenum corresponding to active GI bleed in the territory of the gastroduodenal artery (11:48, 17:48, 23:47). 05/14 Negative mesenteric angiogram for active contrast extravasation or pseudoaneurysm. Empiric embolization of the gastroduodenal artery and its branches was performed utilizing metallic coils and Gelfoam. Previous Endoscopy: 05/17 - Normal cricopharyngeus, upper third of esophagus and middle third of esophagus. - LA Grade B reflux esophagitis with no bleeding. - Z-line regular, 40 cm from the incisors. - Bilious gastric fluid. - Non-obstructing non-bleeding gastric ulcer with pigmented material. There is no evidence of perforation. - Normal antrum. - Non-bleeding duodenal ulcer with no stigmata of bleeding. - Normal second portion of the duodenum. - No specimens collected. ASSESSMENT and PLAN Srinivasa Hernandez is a 63 year old male with PMH as listed above, consulted Gastroenterology for Acute on chronic anemia Recent upper GI bleed status post IR empiric embolization of GDA with subsequent EGD revealing large gastric ulcer Patient presents with acute on chronic anemia. Denies nausea, vomiting. Has reported some abdominal discomfort since procedure however abdomen is soft. CT scan on arrival showing extraluminal air near stomach with extension to the pancreas suggestive of gastric perforation. Abdomen is soft and patient denies symptoms at this time. EGD post embolization with appearance of deep penetrating ulcer. Given concern for contained perforation, will not plan on endoscopic procedures at this time. Recommend ongoing clinical observation. If patient is to develop peritoneal signs, definitive management per surgery. -No plans for endoscopy at this time -Serial abdominal exams -IV PPI twice daily -Strict n.p.o. -Surgical recommendations Patient was seen and discussed with Dr. Pace , please call with any questions. Jb Barrera DO Gastroenterology & Hepatology PGY 6 CONSULTANT Associated attestation - Luis Pace MD - 06/01/2024 9:33 PM IT CONSULTANT I have examined the patient and discussed the findings and management plan with Dr Barrera. I agree with the GI Consult note dated 05/30/24 as above. GASTROENTEROLOGY [facility] 2024-05-17 08:24:01 Associated Order(s): CONSULT GASTROENTEROLOGY Department of Gastroenterology & Hepatology Consult Note Requesting Physician: Julio Cesar Partida,* Service: Medicine Reason for Consultation: Melena Date of Service: 05/17/2024 CHIEF COMPLAINT: Dark stool with bight re blood History of Present Illness Srinivasa Hernandez is a 63 year old male with PMH of HFrEF(LV EF at 20-25% on TTE 01/16/23) secondary to ICM; h/o CAD s/p Mi s/p PCI in 2013 ([facility]) and 3V-CABG 03/2015 ([place], [place]), systemic hypertension, dyslipidemia, pulmonary hypertension, s/p ICD placement in 2016, CKD stage 5 on HD MWF who presents with upper GI bleed. Patient was admitted to the MICU on 05/13 with dark stool and bright red blood, CTA showed contrast extravasation with pulling in the proximal duodenum corresponding to active GI bleed in the territory of the gastroduodenal artery, status post embolization of GDA with IR on 05/13. He remained hemodynamically stable since with no further episodes of GI bleed until last night where he had 1 episode of melena for which we are consulted. No Bms since Sun until last night. Patient is hemodynamically stable with blood pressure in the 110s over 50s, heart rate in the 70s Hemoglobin during this hospitalization has been between 6.6 and 8.8. Hemoglobin last night dropped from 8.8-7 s/p 1 unit of blood. Was on DAPT last dose ASA 05/16, last plavix unclear. 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 Gout Ischemic cardiomyopathy 06/15/2014 EF 20% per pt 10/04, 15-20% 11/2015 LA (myocardial infarction) Pacemaker S/P CABG x 3 Type 2 diabetes mellitus without complication 11/23/2015 PAST SURGICAL HISTORY Past Surgical History: Procedure Laterality Date CABG, ARTERIAL, THREE 03/2015 [place] Tech IMPLANTABLE CARDIOVERTER DEFIBRILLATOR PLACEMENT 08/2016 PACEMAKERS INSERTION 08/2016 PERMACATH PLACEMENT Right 05/09/2024 Surgeon: Asad Morgan MD; Location: [facility] OR [place] PTCA W/POSSIBLE STENT 09/2013 [facility] PTFE GRAFT INSERTION Right 05/09/2024 Surgeon: Asad Morgan MD; Location: [facility] OR LOCATION FAMILY HISTORY Family History Problem Relation Age of Onset Asthma Mother Heart Father Hypertension Sister Diabetes Sister Diabetes Brother Hypertension Brother Heart Brother No Significant Medical Problems Daughter No Significant Medical Problems Son No Significant Medical Problems Son ALLERGIES No Known Allergies MEDICATIONS Current Facility-Administered Medications Medication Dose Route Frequency Last Rate Last Admin pantoprazole (PROTONIX) injection 40 mg 40 mg Slow IV Push BID atorvastatin (LIPITOR) tablet 80 mg 80 mg Oral QHS 80 mg at 05/16/24 2133 ezetimibe (ZETIA) tablet 10 mg 10 mg Oral DAILY 10 mg at 05/17/24 0817 heparin 1,000 unit/mL (10 mL) - dialysis catheter care 2,000 Units Slow IV Push PRN - SEE INSTRUCTIONS 4,100 Units at 05/16/24 1901 HYDROcodone-acetaminophen (NORCO 5) tablet 1 tablet 1 tablet Oral Q6HPRN 1 tablet at 05/16/24 2204 cyclobenzaprine (FLEXERIL) tablet 5 mg 5 mg Oral TIDPRN dextrose 50 % in water (D50W) injection 25 mL 25 mL Slow IV Push PRN foLIC acid (FOLATE) tablet 1 mg 1 mg Oral DAILY 1 mg at 05/16/24 0808 glucagon HCL injection 1 mg 1 mg Intramuscular PRN heparin 1,000 unit/mL (10 mL) - dialysis catheter care 2,000 Units Slow IV Push PRN - SEE INSTRUCTIONS 4,100 Units at 05/14/24 2328 Lidocaine (LIDOCARE) 4 % patch 2 Patch 2 Patch Topical DAILY 2 Patch at 05/17/24 0816 ondansetron (ZOFRAN (PF)) injection 4 mg 4 mg Slow IV Push Q6HPRN 4 mg at 05/15/24 0503 polyethylene glycol 3350 powder 17 g 17 g Oral DAILY 17 g at 05/16/24 0808 sennosides (SENOKOT) tablet 8.6 mg 8.6 mg Oral DAILY 8.6 mg at 05/17/24 0816 Sliding Scale Insulin - Lispro (HumaLOG) Subcutaneous TID MEALS+HS 1 Units at 05/16/24 1303 vitamin B-12 (CYANOCOBALAMIN) tablet 1,000 mcg 1,000 mcg Oral DAILY 1,000 mcg at 05/16/24 0808 SOCIAL HISTORY Social History Socioeconomic History Marital status: Spouse name: Not on file Number of children: Not on file Years of education: Not on file Highest education level: Not on file Occupational History Occupation: [employer] Tobacco Use Smoking status: Some Days Current packs/day: 0.00 Average packs/day: 1.5 packs/day for 25.0 years (37.5 ttl pk-yrs) Types: Cigarettes Start date: 04/23/1990 Last attempt to quit: 04/23/2015 Years since quittin.0 Smokeless tobacco: Never Tobacco comments: Trying to quit Substance and Sexual Activity Alcohol use: Yes Alcohol/week: 0.0 standard drinks of alcohol Comment: once a month Drug use: Not on file Sexual activity: Not Currently Partners: Female control/protection: None Other Topics Concern Not on file Social History Narrative Lives with one of his brothers. He is , but they have been for 2 years. She accompanies him on his doctor's appointments. Mr. Hernandez is on disability for a LA in 2013. Exercise: walking and yard work. Social Determinants of Health Financial Resource Strain: Low Risk (01/16/2023) Overall Financial Resource Strain (CARDIA) Difficulty of Paying Living Expenses: Not hard at all Food Insecurity: No Food Insecurity (05/07/2024) NCSS - Food Insecurity Worried About Running Out of Food in the Last Year: No Ran Out of Food in the Last Year: No Transportation Needs: No Transportation Needs (05/07/2024) NCSS - Transportation Lack of Transportation: No Physical Activity: Inactive (01/16/2023) Exercise Vital Sign Days of Exercise per Week: 0 days Minutes of Exercise per Session: 0 min Stress: Not on file Social Connections: Unknown (01/16/2023) Social Connection and Isolation Panel [NHANES] Frequency of Communication with Friends and Family: More than three times a week Frequency of Social Gatherings with Friends and Family: Not on file Attends Anabaptism Services: Not on file Active Member of Clubs or Organizations: Not on file Attends Club or Organization Meetings: Not on file Marital Status: Housing Stability: Not At Risk (05/07/2024) NCSS - Housing/Utilities Has Housing: Yes Worried About Losing Housing: No Unable to Get Utilities: No ROS: See above PE: BP 116/51 (BP Location: Left arm, Patient Position: Sitting) | Pulse 78 | Temp 36.6 ?C (97.9 ?F) | Resp 18 | Ht 1.753 m (5' 9") | Wt 72.6 kg (160 lb) | SpO2 100% | BMI 23.63 kg/m? Gen: Alert, no acute distress Lungs: Normal work of breathing Abdomen: soft, non-tender, non-distended LABORATORY HGB (g/dL) Date Value 05/17/2024 7.0 (L) 05/16/2024 8.8 (L) 05/15/2024 8.8 (L) PLT (10*3/?L) Date Value 05/17/2024 136 (L) 05/16/2024 180 05/15/2024 168 INR (no units) Date Value 05/14/2024 1.5 05/13/2024 1.3 05/09/2024 1.1 Hepatic Function Panel ALBUMIN (g/dL) Date Value 05/13/2024 3.5 T PROTEIN (g/dL) Date Value 05/13/2024 6.8 TOTAL BILI (mg/dL) Date Value 05/13/2024 0.7 BILI UNCON (mg/dL) Date Value 05/18/2022 0.5 BILI CONJ (mg/dL) Date Value 05/18/2022 0.0 ALT(SGPT) (U/L) Date Value 02/11/2018 26 ALTv (U/L) Date Value 05/13/2024 56 (H) AST(SGOT) (U/L) Date Value 05/13/2024 107 (H) ALK PHOS (U/L) Date Value 05/13/2024 128 (H) BMP NA (mmol/L) Date Value 05/17/2024 132 (L) K (mmol/L) Date Value 05/17/2024 4.5 CALCIUM (mg/dL) Date Value 05/17/2024 8.1 (L) CL (mmol/L) Date Value 05/17/2024 102 BUN (mg/dL) Date Value 05/17/2024 45 (H) CREATININE (mg/dL) Date Value 05/17/2024 3.18 (H) GLUCOSE (mg/dL) Date Value 05/17/2024 137 (H) CO2 TOTAL (mmol/L) Date Value 05/17/2024 21 (L) RADIOLOGY: XR Chest 1 vw Narrative: History: assess hydropneumothorax . Exam: XR CHEST 1 VW Date: 05/17/2024 6:00 AM Ordering provider: GERALDO MENDOZA Comparison: 05/16/2024. Findings: Frontal view of the chest is obtained. Sternotomy wires and left-sided pacemaker ICD are noted. There is a right IJ catheter in the right atrium. Small left apical pneumothorax is stable. The pleural separation measures 2.7 cm. Moderate left pleural effusion has increased in size. There are moderate bilateral interstitial opacities, which are slightly increased. Trace right pleural effusion is noted. There are chronic-appearing right upper rib deformities. Impression: Impression: Stable, small left apical pneumothorax. Moderate left pleural effusion has increased in size. Moderate interstitial opacities are slightly increased. Trace right pleural effusion. RL: 781 HS: Y Previous Endoscopy None ASSESSMENT and PLAN Srinivasa Hernandez is a 63 year old male with PMH as listed above, GI consulted for: UGIB S/p GDA embolization with IR 05/13 Remain stable but had another of episode of melena last ann marie/this AM. Hgb from 8.8 to 7 s/p 1 unit > 7.7 HDS. No prior EGD. Discussed thoroughly with the family risk and benefits, they want to proceed with EGD. 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 Pace. Please call with any questions. Alison Boggs MD Gastroenterology and Hepatology | PGY-4 CONSULTANT Associated attestation - Luis Pace MD - 05/17/2024 1:12 PM IT CONSULTANT I have examined the patient and discussed the findings and management plan with Dr Boggs. I agree with the GI Consult note as above. [facility] [employer] 2024-05-16 15:02:52 Associated Order(s): CONSULT ADULT PHYSICAL THERAPY Patient agreeable to working with physical therapy. Patient semireclining in bed, ex- present . Recommend nursing staff utilize rolling walker to safely assist patient with mobility out of the bed or chair. PHYSICAL THERAPY EVALUATION Consult received, chart reviewed and evaluation complete this date. Patient is referred to PT for evaluation and treatment. Patient is a 63 year old male who presents to hospital for Blood in stool [K92.1] Upper GI bleed [K92.2] Duodenal UGIB (s/p gastroduodenal artery embolization, coiling 05/14) Anemia 2/2 blood loss and iron deficiency. HFrEF (NYHA III, ICM, EF 20-25%, s/p ICD 2016) CAD (hx LA, s/p CABG x3 2014, PCI 2013) Type II LA in the setting of GI bleed pHTN HTN HLD Discharge Recommendations: Therapy Needs and Potential: Patient would benefit from continued physical therapy services to address: decline in bed mobility decline in transfers decline in gait and/or balance decreased strength decreased endurance decreased coordination Patient demonstrates good potential to improve and meet therapy goals with further physical therapy services. Patient appears motivated to improve their functional mobility and return to their previous level of function. Patient demonstrates ability to tolerate atleast 30-60 minutes of physical therapy with active participation. Challenges to Home Transition: increased risk of falls decreased caregiver availability decreased safety awareness environmental barriers Equipment recommendations: rolling walker Current Functional Status and/or Treatment: AM-PAC 6 Clicks (Raw Score 0=Dependent, 24=Independent; Low function Raw Score 0= Dependent, 32=Independent): 05/16/24 1500 AM-PAC? Basic Mobility Inpatient Short Form (6-Clicks) 1) Turning from your back to your side while in a flat bed without using bedrails? 4 2) Moving from lying on back to sitting on the side of the bed without using bedrails? 4 3) Moving to and from a bed to a chair (including a wheelchair)? 3 4) Standing up from a chair using your arms (e.g., wheelchair, or bedside chair)? 3 5) Walking in hospital room? 3 6) Climbing 3-5 steps with a railing? 2 Raw Score - Basic Mobility 19 T-Scale Score - Basic Mobility 42.48 Bed Mobility: Rolling: Independent Reclined to sitting: Independent Sitting balance Good Scooting to edge of bed: Independent Pt stated having SOB during bed mobility and was instructed on deep breathing for slower breath and was educated on the importance of energy conservation after doing a task. Dizziness No Transfers: Sit to stand: Minimal Assistance using RW Stand to sit: Minimal Assistance using RW Static/dynamic standing balance: Good Verbal cueing provided for correct hand placement and correct use of AD . Pt stated having SOB during transfers and was instructed on deep breathing for slower breath and was educated on the importance of energy conservation after doing a task. Dizziness No Ambulation: Assisted patient with ambulation as follows: 100ft feet using RW and Minimal Assistance needing 2L of oxygen. Pt was able to ambulate 100ft then needing a rest break. During rest break, SPO2 was monitored and reported at 100% while on 2L of oxygen. After rest break, pt was able to ambulate another 80ft. SPO2 was checked post ambulation and reported at 96% while on 2L of oxygen. Pt stated having SOB during ambulation and was instructed on deep breathing for slower breath and was educated on the importance of energy conservation after doing a task. Dizziness No Therapeutic exercise: patient educated in Deep breathing, Energy conservation, Fall prevention, General strengthening, Gross motor coordination of LEs, Positioning, Relaxation/breathing techniques, and Safety awareness., instructed patient in the following: ankle pumps, heel slides, straight leg raises, long arc quads, seated marching, heel raises, and patient/caregiver instructed to perform HEP 2 times per day, 10 repetitions. Functional Outcome Measures: (Values within the past 12 hours) 05/16/24 1500 Tinetti Gait Score- # / 12 Initiation of gait 1 Step length 2 Foot clearance 2 Step Symmetry 0 Step continuity 1 Path 1 Trunk 0 Walking 0 Tinetti Gait Score 7 Tinetti Gait Score Interpretation >= 7 - Low risk for falls After session, patient semireclining in bed, ex- . Call button provided. PLAN OF CARE: While in the hospital, PT will follow patient at least 2 times per week,once or twice a day, per patient's tolerance and needs. See below for complete details. Admit Date: 05/13/2024 Hospital Diagnosis:Blood in stool [K92.1] Upper GI bleed [K92.2] PT Diagnosis: Difficulty walking, Weakness, Malaise/fatigue, Dyspnea, Pain, and Abnormality of gait and balance Weight Bearing Precaution: NA General Precautions: PPE used:Gloves, General, Fall,IV peripheral, oxygen: Nasal canula on 2L Bracing/Cast present or required:N/A PMH: Past Medical History: Diagnosis Date CHF (congestive heart failure) Chronic kidney disease Coronary artery disease involving sa[place] coronary artery without angina pectoris 11/23/2015 Essential hypertension 06/15/2014 ICD10 Diagnosis 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 Gout Ischemic cardiomyopathy 06/15/2014 EF 20% per pt 10/04, 15-20% 11/2015 LA (myocardial infarction) Pacemaker S/P CABG x 3 Type 2 diabetes mellitus without complication 11/23/2015 PSH: Past Surgical History: Procedure Laterality Date CABG, ARTERIAL, THREE 03/2015 [place] Tech IMPLANTABLE CARDIOVERTER DEFIBRILLATOR PLACEMENT 08/2016 PACEMAKERS INSERTION 08/2016 PERMACATH PLACEMENT Right 05/09/2024 Surgeon: Asad Morgan MD; Location: [facility] OR [facility] PTCA W/POSSIBLE STENT 09/2013 [facility] PTFE GRAFT INSERTION Right 05/09/2024 Surgeon: Asad Morgan MD; Location: [facility] OR [facility] PRIOR LIVING SITUATION: Lives with ex-, 13/11 supervision/assistance is available, Pt states living in an apartment on the 1st floor. DME: No device Prior level of Mobility: community ambulation, house hold ambulation Suspected ischemic or hemorraghic stroke:No Subjective: "I can move, but I'll be tired." Patient/Family Goals: "I want to go home." Patient/Family verbalizes understanding of condition: Yes PAIN: -Pain rating before treatment: 8, After treatment: no change COMMUNICATION Primary Language: Martiniquais Able to Verbalize needs: Yes Vision:good; no issues reported Hearing:good; no issues reported ORIENTATION/COGNITION: Oriented to: person, place, date/time, and situation Awake: Yes Alert: Yes Dizzy: No Follows Commands: Yes 1-Step Yes Multi-Step Yes Inconsistent: No NEUROLOGICAL Light Touch: within functional limits bilateral LE BALANCE: Sitting: Static: Good Dynamic: Good Standing: Static: Fair+ Dynamic: Fair RANGE OF MOTION: within functional limits bilateral LE, STRENGTH: 3+/5 (F+), bilateral LE ENDURANCE: Fair, Nasal canula on 2L SKIN INTEGRITY: see surgical incisions PROBLEM LIST: Decline in bed mobility, Decline in gait, Decline in transfers, Decreased strength, Decreased endurance, Decreased balance, Safety awareness deficits, Pain, and Decreased Coordination ASSESSMENT: Patient is a 63 year old male seen secondary to the above listed diagnosis. Patient would benefit from continued PT to address the above listed deficits to maximize independence and safety with functional mobility. Rehabilitation Potential: good Goals: The following goals are to maximize independence and safety with functional mobility to eventually return to prior living situation and prior functional status. 1. Sit to stand: Independent using RW Stand to sit: Independent using RW 2. Independent with ambulation, Feet: 300ft using least assistive device. Treatment Plan: Gait training, Therapeutic exercise, Transfer training, Balance training, Bed mobility training, Pain management, and Neuromuscular Re-Education PATIENT EDUCATION: Patient provided with preferred teaching of verbal information and demonstration on role of PT, plan of care, Shows readiness to learn. Verbal instruction and Demonstration teaching provided. Individual is able to read and verbalizes understanding of teaching provided and accurately returns demonstration of skill. Total Time Tx Codes in Minutes: 23 min Total Treatment Time in Minutes: 30 min Joann Gibbons PT, DPT CONSULTANT Joann Gibbons PT [facility] 2024-05-16 14:35:28 Associated Order(s): CONSULT PULMONARY MEDICINE PULMONARY MEDICINE CONSULTATION NOTE Consultation requested by: Julio Cesar Patrida MD Date of Service: 05/16/2024 14:35 HD #: 2 CC: Pneumothorax Reason for Consultation: Pneumothorax seen on Xray History of Present Illness Srinivasa Hernandez is a 63 year old male with PMH HrEF, CKD, HTN CAD that had finding on pneumothorax on chest xray. Per chart patient had thoracentesis on 05/07 and has had stable pneumothorax since then. Patient states that he's overall feeling better, does not have chest pain or shortness of breath Social History Tobacco Use Smoking Status Some Days Current packs/day: 0.00 Average packs/day: 1.5 packs/day for 25.0 years (37.5 ttl pk-yrs) Types: Cigarettes Start date: 04/23/1990 Last attempt to quit: 04/23/2015 Years since quittin.0 Smokeless Tobacco Never Tobacco Comments Trying to quit 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 Gout Ischemic cardiomyopathy 06/15/2014 EF 20% per pt 10/04, 15-20% 11/2015 LA (myocardial infarction) Pacemaker S/P CABG x 3 Type 2 diabetes mellitus without complication 11/23/2015 Past Surgical History: Procedure Laterality Date CABG, ARTERIAL, THREE 03/2015 [place] Tech IMPLANTABLE CARDIOVERTER DEFIBRILLATOR PLACEMENT 08/2016 PACEMAKERS INSERTION 08/2016 PERMACATH PLACEMENT Right 05/09/2024 Surgeon: Asad Morgan MD; Location: [facility] OR [facility] PTCA W/POSSIBLE STENT 09/2013 [facility] PTFE GRAFT INSERTION Right 05/09/2024 Surgeon: Asad Morgan MD; Location: [facility] OR [facility] Family History Problem Relation Age of Onset Asthma Mother Heart Father Hypertension Sister Diabetes Sister Diabetes Brother Hypertension Brother Heart Brother No Significant Medical Problems Daughter No Significant Medical Problems Son No Significant Medical Problems Son Social History Socioeconomic History Marital status: Occupational History Occupation: [employer] Tobacco Use Smoking status: Some Days Current packs/day: 0.00 Average packs/day: 1.5 packs/day for 25.0 years (37.5 ttl pk-yrs) Types: Cigarettes Start date: 04/23/1990 Last attempt to quit: 04/23/2015 Years since quittin.0 Smokeless tobacco: Never Tobacco comments: Trying to quit Substance and Sexual Activity Alcohol use: Yes Alcohol/week: 0.0 standard drinks of alcohol Comment: once a month Sexual activity: Not Currently Partners: Female control/protection: None Social History Narrative Lives with one of his brothers. He is , but they have been for 2 years. She accompanies him on his doctor's appointments. Mr. Hernandez is on disability for a LA in 2013. Exercise: walking and yard work. Social Determinants of Health Financial Resource Strain: Low Risk (01/16/2023) Overall Financial Resource Strain (CARDIA) Difficulty of Paying Living Expenses: Not hard at all Food Insecurity: No Food Insecurity (05/07/2024) NCSS - Food Insecurity Worried About Running Out of Food in the Last Year: No Ran Out of Food in the Last Year: No Transportation Needs: No Transportation Needs (05/07/2024) NCSS - Transportation Lack of Transportation: No Physical Activity: Inactive (01/16/2023) Exercise Vital Sign Days of Exercise per Week: 0 days Minutes of Exercise per Session: 0 min Social Connections: Unknown (01/16/2023) Social Connection and Isolation Panel [NHANES] Frequency of Communication with Friends and Family: More than three times a week Marital Status: Housing Stability: Not At Risk (05/07/2024) NCSS - Housing/Utilities Has Housing: Yes Worried About Losing Housing: No Unable to Get Utilities: No Allergies: Patient has no known allergies. Current Hospital Medications: Current Facility-Administered Medications Medication Dose Route Frequency Last Rate Last Admin aspirin EC tablet 81 mg 81 mg Oral DAILY 81 mg at 05/16/24 0808 atorvastatin (LIPITOR) tablet 80 mg 80 mg Oral QHS ezetimibe (ZETIA) tablet 10 mg 10 mg Oral DAILY 10 mg at 05/16/24 0808 pantoprazole (PROTONIX) EC tablet 40 mg 40 mg Oral DAILY 40 mg at 05/16/24 0808 HYDROcodone-acetaminophen (NORCO 5) tablet 1 tablet 1 tablet Oral Q6HPRN 1 tablet at 05/15/242002 cyclobenzaprine (FLEXERIL) tablet 5 mg 5 mg Oral TIDPRN dextrose 50 % in water (D50W) injection 25 mL 25 mL Slow IV Push PRN foLIC acid (FOLATE) tablet 1 mg 1 mg Oral DAILY 1 mg at 05/16/24 0808 glucagon HCL injection 1 mg 1 mg Intramuscular PRN heparin 1,000 unit/mL (10 mL) - dialysis catheter care 2,000 Units Slow IV Push PRN - SEE INSTRUCTIONS 4,100 Units at 05/14/24 2328 Lidocaine (LIDOCARE) 4 % patch 2 Patch 2 Patch Topical DAILY 2 Patch at 05/16/24 0819 ondansetron (ZOFRAN (PF)) injection 4 mg 4 mg Slow IV Push Q6HPRN 4 mg at 05/15/24 0503 polyethylene glycol 3350 powder 17 g 17 g Oral DAILY 17 g at 05/16/24 0808 sennosides (SENOKOT) tablet 8.6 mg 8.6 mg Oral DAILY 8.6 mg at 05/16/24 0808 Sliding Scale Insulin - Lispro (HumaLOG) Subcutaneous TID MEALS+HS 1 Units at 05/16/24 1303 vitamin B-12 (CYANOCOBALAMIN) tablet 1,000 mcg 1,000 mcg Oral DAILY 1,000 mcg at 05/16/24 0808 Home Medications: Current Facility-Administered Medications Medication Dose Route Frequency Last Rate Last Admin aspirin EC tablet 81 mg 81 mg Oral DAILY 81 mg at 05/16/24 0808 atorvastatin (LIPITOR) tablet 80 mg 80 mg Oral QHS ezetimibe (ZETIA) tablet 10 mg 10 mg Oral DAILY 10 mg at 05/16/24 0808 pantoprazole (PROTONIX) EC tablet 40 mg 40 mg Oral DAILY 40 mg at 05/16/24 08 HYDROcodone-acetaminophen (NORCO 5) tablet 1 tablet 1 tablet Oral Q6HPRN 1 tablet at 05/15/242002 cyclobenzaprine (FLEXERIL) tablet 5 mg 5 mg Oral TIDPRN dextrose 50 % in water (D50W) injection 25 mL 25 mL Slow IV Push PRN foLIC acid (FOLATE) tablet 1 mg 1 mg Oral DAILY 1 mg at 05/16/24 08 glucagon HCL injection 1 mg 1 mg Intramuscular PRN heparin 1,000 unit/mL (10 mL) - dialysis catheter care 2,000 Units Slow IV Push PRN - SEE INSTRUCTIONS 4,100 Units at 05/14/24 2328 Lidocaine (LIDOCARE) 4 % patch 2 Patch 2 Patch Topical DAILY 2 Patch at 05/16/24 0819 ondansetron (ZOFRAN (PF)) injection 4 mg 4 mg Slow IV Push Q6HPRN 4 mg at 05/15/24 0503 polyethylene glycol 3350 powder 17 g 17 g Oral DAILY 17 g at 05/16/24 0808 sennosides (SENOKOT) tablet 8.6 mg 8.6 mg Oral DAILY 8.6 mg at 05/16/24 0808 Sliding Scale Insulin - Lispro (HumaLOG) Subcutaneous TID MEALS+HS 1 Units at 05/16/24 1303 vitamin B-12 (CYANOCOBALAMIN) tablet 1,000 mcg 1,000 mcg Oral DAILY 1,000 mcg at 05/16/24 0808 Physical Exam and Objective Data BP (!) 140/62 (BP Location: Left arm, Patient Position: Sitting) | Pulse 87 | Temp 37.2 ?C (98.9 ?F) | Resp 18 | Ht 5' 9" (1.753 m) | Wt 160 lb (72.6 kg) | SpO2 92% | BMI 23.63 kg/m? Clear lung summers Mild pitting edema Intake/Output Summary (Last 24 hours) at 05/16/2024 1435 Last data filed at 05/16/2024 0508 Gross per 24 hour Intake -- Output 150 ml Net -150 ml LABORATORY CBC BMP LFTs WBC (10*3/?L) Date Value 05/16/2024 13.38 (H) NA (mmol/L) Date Value 05/16/2024 135 ALK PHOS (U/L) Date Value 05/13/2024 128 (H) HGB (g/dL) Date Value 05/16/2024 8.8 (L) K (mmol/L) Date Value 05/16/2024 5.8 (H) ALT(SGPT) (U/L) Date Value 02/11/2018 26 ALTv (U/L) Date Value 05/13/2024 56 (H) HCT (%) Date Value 05/16/2024 26.3 (L) CALCIUM (mg/dL) Date Value 05/16/2024 8.5 (L) AST(SGOT) (U/L) Date Value 05/13/2024 107 (H) PLT (10*3/?L) Date Value 05/16/2024 180 CL (mmol/L) Date Value 05/16/2024 104 RBC (10*6/?L) Date Value 05/16/2024 3.05 (L) BUN (mg/dL) Date Value 05/16/2024 74 (H) Cardio CREATININE (mg/dL) Date Value 05/16/2024 4.73 (H) NT-proBNP (pg/mL) Date Value 05/12/2024 28,400 (H) 08/03/2022 25,200 (H) Thyroid TSH (mIU/L) Date Value 03/09/2021 4.17 No components found for: "GLUC" RESULTS REVIEWED: No final results containing an impression from the past 2 days were found. CXR - stable left pneumothorax Assessment & Plan Srinivasa Hernandez is a 63 year old male with Pneumothorax 2/2 to thoracentesis HFrEF CAD Plan: Seen on prior x-rays 9 days ago, appears stable and has not expanded. At this time can be managed conservatively with oxygen. Avoid Positive pressure ventilation. If at any point patient has hemodynamic instability, call MICU/Pulm fellow and obtain stat chest x-ray Plan was reviewed with Dr Son and discussed with the patient. All concerns were addressed and all questions answered. Alex Castellon MD Pulmonary & Critical Care Medicine Fellow Pager [phone] CONSULTANT Associated attestation - Burt Son MD - 05/19/2024 9:50 AM IT CONSULTANT Attestation: Today 16 May 2024 I examined and discussed this patient with Dr Castellon. I agree with the observations, assessments, and recommendations. [facility] PULMONARY DISEASE [facility] 2024-05-16 11:30:00 Associated Order(s): CONSULT ADULT OCCUPATIONAL THERAPY OT GENERAL EVALUATION Consult received via [employer], EMR reviewed and evaluation completed 05/16/24. Patient referred to occupational therapy for evaluation and treatment secondary to Hematochezia. Patient agreeable to participate in occupational therapy. Patient found semireclining in bed and Heels offloaded? No: not required as patient is alert and oriented, as well as exhibits sufficient LE strength and ability to move/reposition LEs/heels throughout the day, ex-Spouse present. Discharge Recommendations: Therapy Needs and Potential:- Patient would benefit from continued skilled occupational therapy services to address: Decline in basic activities of daily living, Decline in instrumental activities of daily living, Decreased strength, Decreased range of motion, and Decreased endurance - Patient demonstrates good potential to improve and meet therapy goals with further skilled occupational therapy services. - Patient appears motivated to improve their BADLS and IADLs and return to their previous level of function. - Patient exhibits limited activity tolerance. - Patient able to follow commands: 1-step Yes, Multi-step NT, Inconsistencies No Challenges to Home Transition:- Requires physical assistance for BADLS - Requires physical assistance for IADLS - Requires supervision or verbal cues for BADLS - Requires supervision or verbal cues for IADLS - Limited caregiver availability - Increased risk of falls - Environmental barriers -combo tub/shower Equipment Recommendations:Shower chair PLAN OF CARE: At least 2x/week Precautions: Weight bearing status: NA General: PPE Utilized: Gloves, Fall, and O2 per NC Bracing: N/A Subjective: Pt stated "I already worked two times with PT" when asked if PT had already been by to see pt. Current Occupational Performance and/or Treatment: AM-PAC 6 Clicks (Raw Score 0=Dependent, 24=Independent; Low function Raw Score 0= Dependent, 32=Independent): Raw Score - Daily Activity: 21 T-Scale Score - Daily Activity: 44.27 Feeding: Independent, pt demonstrated functional ROM to bring cup/utensil to mouth. Grooming: Independent, pt demonstrated ROM/coordination to complete oral care at bed level; pt unable to tolerate standing at sink secondary to fatigue. Bathing: NT, educated pt on use of shower chair to prevent falls in the shower. UB Dressing: Independent, pt dressed in robe/gown and managed both throughout evaluation. Full functional ROM to complete dressing task. LB Dressing: Minimal Assistance, pt used trunk on hip flexion to adjust bilateral socks. Pt shown technique to use bed surface to support DONTRELL LE in hip abduction to prevent compression on abdomen. Toilet Transfer: Supervision, pt descended/ascended with cue to use grab bar for support. Functional Mobility: HOB elevated; supine<>sit Independent, sit<>stand Supervision without assistive device, ambulation <>bathroom without assistive device. Pt noted to have LOB >bathroom and recovered by using wall for support. Patient/caregiver educated on: Adaptive equipment , ADL training, Compensatory techniques/adaptive strategies, Energy conservation (handout issued/reviewed), Fall prevention (handout issued/reviewed), and Role of OT Patient left semireclining in bed with call sanford in reach. Spouse present. Please, see full evaluation below for more detail. 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 Gout Ischemic cardiomyopathy 06/15/2014 EF 20% per pt /, 15-20% 11/2015 LA (myocardial infarction) Pacemaker S/P CABG x 3 Type 2 diabetes mellitus without complication 11/23/2015 PSH: Past Surgical History: Procedure Laterality Date CABG, ARTERIAL, THREE 03/2015 [place] Tech IMPLANTABLE CARDIOVERTER DEFIBRILLATOR PLACEMENT 08/2016 PACEMAKERS INSERTION 08/2016 PERMACATH PLACEMENT Right 05/09/2024 Surgeon: Asad Morgan MD; Location: [facility] OR [facility] PTCA W/POSSIBLE STENT 09/2013 [facility] PTFE GRAFT INSERTION Right 05/09/2024 Surgeon: Asad Morgan MD; Location: [facility] OR LOCATION PAIN: Pain Location: abdomen Pain rating before treatment: 8, After treatment: does not rate Pain Management: Decreased movement aides in some pain reduction and Repositioning Provided OCCUPATIONAL ROLES/HOME ENVIRONMENT: Home environment: Lives with ex-spouse, 13/11 supervision/assistance is available, and Downstairs apartment. Bathroom access: Yes Bathroom setup: Combo Occupation(s): Disabled Function prior to admission: Household ambulation, Community ambulation, Independent with BADLs, and Independent with IADLs Suspected ischemic or hemorraghic stroke patient: No Equipment prior to admission: None PERFORMANCE SKILLS/FACTORS: UE Muscle Tone: bilateral WNL UE ROM: bilateral AROM WFL UE Strength: DONTRELL UE 4/5 Hand dominance: left Dexterity/Coordination: bilateral Intact Endurance - Sitting: Fair+ Standing: Fair - Sitting Balance - Static: Good Dynamic: Fair+ Standing: Balance - Static Fair Dynamic: Poor+ Dizziness: No Skin Integrity: defer full skin assessment to nursing Sensation: Patient denies numbness and tingling. Oral Motor: WFL and Dentures Communication: Able to verbalize needs Yes Other: N/A Vision: WFL Yes Other: glasses or contacts Hearing: good; no issues reported COGNITION: Orientation: person, place, date/time, and situation Follows Commands: 1-step Yes Multi-step NT Inconsistencies No Safety Awareness/Judgment: Fair PROBLEM LIST: Decreased independence with ADL and Decreased strength/endurance for functional activity REHAB POTENTIAL/PROGNOSIS: fair PATIENT/FAMILY GOALS: To get pain better managed TREATMENT/INTERVENTION PLAN: Patient/Caregiver Education, Equipment recommendations, Daily living activities, and Therapeutic exercises GOAL(S): By discharge, patient will increase independence in daily living skills as follows: 1 Patient will perform toilet transfer with independence. 2 Patient will perform LB dressing with independence. 3 Patient will complete 1 grooming tasks with independence while standing at the sink. 4 Patient will complete toileting hygiene, including clothing management, with independence. 5 Patient will increase endurance for functional activity as evidenced by ability to sustain 20 minutes of active participation. 6 Patient/caregiver will verbalize/demonstrate understanding/proficiency in the following home programs: Compensatory techniques/adaptive strategies and 7 General strengthening PATIENT-FAMILY TEACHING Patient and Significant other provided with preferred teaching of verbal information, written information, and demonstration on Adaptive equipment , ADL training, Compensatory techniques/adaptive strategies, Energy conservation (handout issued/reviewed), Fall prevention (handout issued/reviewed), and Role of OT. Shows readiness to learn. Verbal instruction, Written material, and Demonstration teaching provided. Individual verbalizes understanding of teaching provided. DANA Umana, MOT Total Timed Treatment Codes: 8 Min Total Treatment Time: 25 Min Patient Complexity Level Moderate - An occupational therapy evaluation of moderate complexity was completed using the above tests and measures. The following information was obtained: An occupational profile and medical and therapy history, including an expanded review of medical and/or therapy records and additional review of physical, cognitive, or psychosocial history related to current functional performance, Various standardized and non-standardized assessments were used to identify at least 3-5 performance deficits related to physical, cognitive, or psychosocial skills that result in activity limitations and/or participation restrictions, and Clinical decision making of moderate analytic complexity, which includes an analysis of the occupational profile, analysis of data from detailed assessment(s), and consideration of several treatment options. Patient may present with comorbidities that affect occupational performance. Minimal to moderate modification of tasks or assistance (e.g., physical or verbal) with assessment(s) is necessary to enable patient to complete evaluation component. CONSULTANT Elijah Rangel OT [facility] 2024-05-08 09:12:28 Associated Order(s): CONSULT PERFECT BINDER OPERATOR-ADULT Will submit clinicals to [facility] and await chair time. [facility] Dialysis: [phone], fax: [phone] CECELIA Bui Power Screwdriver Operator - Care Management [facility] [phone] [email or web address] CONSULTANT [facility] - Health 2024-05-07 11:21:15 Associated Order(s): CONSULT NEPHROLOGY Consultation requested by: IM/Hospitalist, Dr. Tavarez Reason for Consultation: CKD V, shortness of breath Date of Service: 05/07/24 History of Present Illness: Srinivasa Hernandez is a 63 year old male with hx of ischemic CMP, chronic systolic congestive heart failure, advanced CKD under clinic f/u with me over the past 1.5-2 years although at times lost to f/u but whose GFR has further declined over the past 9 mo and he has had greater CASPER, fatigue and other in the setting of his CHF and anemia 2nd to CKD. Pt has had a few ER visits for CP, dyspnea, with findings of Lt pleural effusion. He reports compliance with his Lasix and has been taking a higher dose of 80 mg BID. He has seen the HF team in the past although not recently. He was admitted through the ER last night and underwent left pleural thoracentesis this AM, he has some dry cough. He has some intermittent nausea. 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 Gout Ischemic cardiomyopathy 06/15/2014 EF 20% per pt 10/04, 15-20% 11/2015 LA (myocardial infarction) Pacemaker S/P CABG x 3 Type 2 diabetes mellitus without complication 11/23/2015 Past Surgical History: Procedure Laterality Date CABG, ARTERIAL, THREE 03/2015 [place] Tech IMPLANTABLE CARDIOVERTER DEFIBRILLATOR PLACEMENT 08/2016 PACEMAKERS INSERTION 08/2016 PTCA W/POSSIBLE STENT 09/2013 [facility] Family History Problem Relation Age of Onset Asthma Mother Heart Father Hypertension Sister Diabetes Sister Diabetes Brother Hypertension Brother Heart Brother No Significant Medical Problems Daughter No Significant Medical Problems Son No Significant Medical Problems Son Allergies: Patient has no known allergies. MEDICATIONS Hospital Medications: Current Facility-Administered Medications Medication Dose Route Frequency Last Rate Last Admin [START ON 05/14/2024] clopidogreL (PLAVIX) 75 mg tablet 75 mg 75 mg Oral DAILY acetaminophen (TYLENOL) tablet 650 mg 650 mg Oral Q6HPRN aspirin chewable tablet 81 mg 81 mg Oral DAILY 81 mg at 05/07/24838 atorvastatin (LIPITOR) tablet 80 mg 80 mg Oral QHS 80 mg at 05/06/242117 carvediloL (COREG) tablet 12.5 mg 12.5 mg Oral BID MEALS 12.5 mg at 05/07/24838 dextrose 50 % in water (D50W) injection 25 mL 25 mL Slow IV Push PRN ezetimibe (ZETIA) tablet 10 mg 10 mg Oral DAILY 10 mg at 05/07/24838 furosemide (LASIX) injection 80 mg 80 mg Slow IV Push BIDPC 80 mg at 05/07/24838 glucagon HCL injection 1 mg 1 mg Intramuscular PRN heparin (porcine) injection 5,000 Units 5,000 Units Subcutaneous Q8H 5,000 Units at 05/07/24506 hydrALAZINE (APRESOLINE) tablet 25 mg 25 mg Oral Q8H 25 mg at 05/07/24506 insulin glargine (LANTUS U-100) injection 10 Units 10 Units Subcutaneous QHS 10 Units at 05/06/242117 isosorbide dinitrate (ISORDIL) tablet 20 mg 20 mg Oral Q8H 20 mg at 05/07/24506 ondansetron (ZOFRAN (PF)) injection 4 mg 4 mg Slow IV Push Q6HPRN Sliding Scale Insulin - Lispro (HumaLOG) Subcutaneous TID MEALS+HS 1 Units at 05/06/242117 SOCIAL HISTORY Social History Tobacco Use Smoking Status Some Days Current packs/day: 0.00 Average packs/day: 1.5 packs/day for 25.0 years (37.5 ttl pk-yrs) Types: Cigarettes Start date: 04/23/1990 Last attempt to quit: 04/23/2015 Years since quittin.0 Smokeless Tobacco Never Tobacco Comments Trying to quit Social History Substance and Sexual Activity Alcohol Use Yes Alcohol/week: 0.0 standard drinks of alcohol Comment: once a month Social History Substance and Sexual Activity Drug Use Not on file REVIEW OF SYSTEMS ROS: Constitutional: No fevers or chills reported Vision: No double vision or blurry vision reported ENT: No sinusitis or dysphagia reported Resp: As mentioned above CVS: No CP or palpitations reported currently GI: Some N/V : No dysuria or hematuria reported Heme: Chronic anemia 2nd to CKD Endo: Hx of DM Neuro: No hx of CVA or seizures Psych: No reports of depression or anxiety Derm: No reports of rashes or ulcers Allergic: No reports of anaphylaxis or urticaria PHYSICAL EXAMINATION BP 123/64 | Pulse 69 | Temp 36.3 ?C (97.4 ?F) | Resp 18 | Ht 1.753 m (5' 9") | Wt 71.5 kg (157 lb 9.6 oz) | SpO2 96% | BMI 23.27 kg/m? PE: Gen: NAD, non tachypnec, appears chronically ill, uremic pallor HEENT: Atraumatic, sclera anicteric Neck: Supple, JVD difficult to appreciate Resp: b/l air entry, coughing during inspiration, mild left wheeze, reduced BS at bases CVS: Non tachy, irregular, extra heart sound GI: Soft, ND, NT : keane not present Ext: No significant LE edema, shins non tender Derm: No skin rashes noted Neuro: Awake, responsive, non encephalopathic, non focal LABORATORY Reviewed in the EMR CHART REVIEW: Done ASSESSMENT and PLAN Srinivasa Hernandez is a 63 year old male with PMH as listed above, consulted for above mentioned CKD IV historically 2nd to DM/HTN with prior KENYA episodes and some fluctuation in levels 2nd to cardio-renal syndrome/diuretic escalation and now progression of disease to Stage V/ESRD Acute on chronic systolic + diastolic CHF Ischemic cardiomyopathy with biventricular HF Acute pulm edema, left pleural effusion Proteinuria, unspecified Anemia 2nd to CKD, other -Recent labs showed Cr level climbing as high as 4.75, eGFR now ~ 13 ml/min. While admission levels are marginally lower, his eGFR is now low enough that with some early uremic symptoms, pleural effusion development and other that recommend (earlier) initiation of FINISHER COLD ROLLING on this admission. Unfortunately pt was not able to get his vascular access as OP as could not afford the co pay so will pursue a TDC although will need to be off Plavix. Will also touch base with vascular service, Dr. Hunter Will order hepatitis studies and send off referral for anticipated OP HD at the [facility] unit in -Acute on chronic systolic CHF, biventricular HF. Cont lower dose Entresto, with initiation of HD, will see if additional GDMT such as MRA can be added although his lower BP may preclude Cont IV lasix for now, pt is non anuric, monitor UOP. Repeat CXR today does not show overt pulm edema but BNP level higher than in prior mo although GFR state low so interpretation is more challenging. Prior RHC performed in . -Anemia 2nd to CKD other. Has not been able to get GREGORY therapy as OP due to co-pay issues, currently Hb dropped on repeat check this AM. Will obtain iron studies and if T sat is > 20%, will dose Retacrit/Procrit this week and cont at unit as OP Mark Tejada MD, FASN CONSULTANT [facility] 2024-05-07 08:09:39 Associated Order(s): CONSULT CARDIOLOGY [facility] Cardiology Consult Note Patient: Srinivasa Hernandez Date of : 1960 Date of service:05/07/2024 Primary Care Physician: Sonia Dubon CHIEF COMPLAINT: Chief Complaint Patient presents with Shortness of Breath HISTORY OF PRESENT ILLNESS: Srinivasa Hernandez is a 63 year old male presented to the ER for evaluation for shortness of breath. History from patient. Pertinent cardiac related history reviewed from chart Presented to the ER for the evaluation of underlying shortness of breath. Patient was last seen by [facility] Cardiology dated January of 2023. Since then, patient not followed up with [facility] Cardiology. Per patient documentation and reports, the patient has been following up with Dr. Cantu in [facility] Cardiology office on a regular basis. Patient presented to the ER for worsening shortness of breath and noted to have NYHA class 3 to 4. No typical exertion chest pain history. Reports compliance with the medications. Due to worsening shortness of breath, patient was admitted to the hospital for aggressive diuresis. Cardiology has been consulted due to significant heart failure and CAD. CASPER NYHA class III-IV noted. No chest pain at rest. No exertional palpitations or palpitations at rest. No syncopal attacks. PMHx of CAD s/p PCI in 2013 and 3-v CABG in 03/2015/DM/Ischemic CMP/HTN/DLP/Hypothyroidism. He had an LA in 10/04 and received a stent at [facility]. In 03/2015 he underwent 3-v CABG in [facility]. ECHO showed LVEF 25-30% with RWMA. He presented with NSTEMI in 11/2015. LHC showed distal LAD disease but MRI showed no significant viability. He was put on lifevest. Repeat ECHO in 02/2016 showed LVEF 15-20%: No improvement on medical therapy. He underwent ICD in 2016. Patient also with history of chronic kidney disease. Patient's GFR has been running in the low 30s and high 20s. Previous Cardiac Studies: IMAGING - I personally reviewed, pertinent results as below: EKG 01/15/2023 shows sinus rhythm, LAD, nonspecific ST-T changes noted. Chest x-ray dated 01/15/2023 reviewed shows cardiomegaly with heart failure pattern. Bilateral pleural effusion noted. Echocardiogram dated 05/19/2022 reviewed shows LVEF severely reduced 2024. Elevated filling pressures noted. RVSP more than 60. Coronary angiogram dated 12/14/2015 reviewed shows severe [place] CAD, patent grafts noted. Device check dated 10/03/2021 reviewed shows normal device function. No arrhythmias noted. 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 Gout Ischemic cardiomyopathy 06/15/2014 EF 20% per pt 10/04, 15-20% 11/2015 LA (myocardial infarction) Pacemaker S/P CABG x 3 Type 2 diabetes mellitus without complication 11/23/2015 Past Surgical History: Procedure Laterality Date CABG, ARTERIAL, THREE 03/2015 [place] Tech IMPLANTABLE CARDIOVERTER DEFIBRILLATOR PLACEMENT 08/2016 PACEMAKERS INSERTION 08/2016 PTCA W/POSSIBLE STENT 09/2013 [facility] Family History Problem Relation Age of Onset Asthma Mother Heart Father Hypertension Sister Diabetes Sister Diabetes Brother Hypertension Brother Heart Brother No Significant Medical Problems Daughter No Significant Medical Problems Son No Significant Medical Problems Son SOCIAL HISTORY Social History Socioeconomic History Marital status: Occupational History 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 He is , but they have been for 2 years. She accompanies him on his doctor's appointments. Mr. Hernandez is on disability for a [place] in 2013. Exercise: walking and yard work. Social Determinants of Health Financial Resource Strain: Low Risk (01/16/2023) Overall Financial Resource Strain (CARDIA) Difficulty of Paying Living Expenses: Not hard at all Food Insecurity: No Food Insecurity (01/16/2023) Hunger Vital Sign Worried About Running Out of Food in the Last Year: Never true Ran Out of Food in the Last Year: Never true Transportation Needs: No Transportation Needs (01/16/2023) PRAPARE - Transportation Lack of Transportation (Medical): No Lack of Transportation (Non-Medical): No Physical Activity: Inactive (01/16/2023) Exercise Vital Sign Days of Exercise per Week: 0 days Minutes of Exercise per Session: 0 min Social Connections: Unknown (01/16/2023) Social Connection and Isolation Panel [NHANES] Frequency of Communication with Friends and Family: More than three times a week Marital Status: Housing Stability: Low Risk (01/16/2023) Housing Stability Vital Sign Unable to Pay for Housing in the Last Year: No Number of Places Lived in the Last Year: 1 Unstable Housing in the Last Year: No ALLERGIES No Known Allergies MEDICATIONS Current Discharge Medication List STOP taking these medications sacubitriL-valsartan (ENTRESTO) 24-26 mg tablet Comments: Reason for Stopping: HYDRALAZINE 25 mg tablet Comments: Reason for Stopping: ISOSORBIDE DINITRATE 20 mg tablet Comments: Reason for Stopping: furosemide 40 mg tablet Comments: Reason for Stopping: metoprolol succinate XL 50 mg 24 hr tablet Comments: Reason for Stopping: allopurinoL 100 mg tablet Comments: Reason for Stopping: Magnesium Oxide 420 mg Tab Comments: Reason for Stopping: glimepiride 1 mg tablet Comments: Reason for Stopping: Blood-Glucose Meter Kit Comments: Reason for Stopping: ezetimibe 10 mg tablet Comments: Reason for Stopping: pantoprazole 40 mg EC tablet Comments: Reason for Stopping: Insulin [place], Disposable, (BD INSULIN PEN NEEDLE UF) 29 gauge x 1/2" Ndle Comments: Reason for Stopping: TRESIBA FLEXTOUCH U-100 100 unit/mL (3 mL) InPn Comments: Reason for Stopping: clopidogrel 75 mg tablet Comments: Reason for Stopping: atorvastatin 80 mg tablet Comments: Reason for Stopping: Insulin Syringe-Needle U-100 0.5 mL 31 gauge x 5/16 Syrg Comments: Reason for Stopping: lancets (FREESTYLE LANCETS) 28 gauge Misc Comments: Reason for Stopping: ipratropium 0.03 % nasal spray Comments: Reason for Stopping: nitroglycerin (NITROSTAT) 0.4 mg sublingual tablet Comments: Reason for Stopping: Insulin [place], Disposable, 30 gauge x 5/16" Ndle Comments: Reason for Stopping: acetaminophen (TYLENOL EXTRA STRENGTH) 500 mg tablet Comments: Reason for Stopping: aspirin 81 mg chewable tablet Comments: Reason for Stopping: Current Facility-Administered Medications: acetaminophen (TYLENOL) tablet 650 mg, 650 mg, Oral, Q6HPRN, Pb Tavarez MD aspirin chewable tablet 81 mg, 81 mg, Oral, DAILY, Pb Tavarez MD atorvastatin (LIPITOR) tablet 80 mg, 80 mg, Oral, QHS, Pb Tavarez MD, 80 mg at 05/06/242117 carvediloL (COREG) tablet 12.5 mg, 12.5 mg, Oral, BID MEALS, Pb Tavarez MD, 12.5 mg at 05/06/242117 clopidogreL (PLAVIX) 75 mg tablet 75 mg, 75 mg, Oral, DAILY, Pb Tavarez MD dextrose 50 % in water (D50W) injection 25 mL, 25 mL, Slow IV Push, PRN, Pb Tavarez MD ezetimibe (ZETIA) tablet 10 mg, 10 mg, Oral, DAILY, Pb Tavarez MD furosemide (LASIX) injection 80 mg, 80 mg, Slow IV Push, BIDPC, Pb Tavarez MD, 80 mg at 05/06/241958 glucagon HCL injection 1 mg, 1 mg, Intramuscular, PRN, Pb Tavarez MD heparin (porcine) injection 5,000 Units, 5,000 Units, Subcutaneous, Q8H, Pb Tavarez MD, 5,000 Units at 05/07/24 0507 hydrALAZINE (APRESOLINE) tablet 25 mg, 25 mg, Oral, Q8H, Pb Tavarez MD, 25 mg at 05/07/24 0507 insulin glargine (LANTUS U-100) injection 10 Units, 10 Units, Subcutaneous, QHS, Pb Tavarez MD, 10 Units at 05/06/242117 isosorbide dinitrate (ISORDIL) tablet 20 mg, 20 mg, Oral, Q8H, Pb Tavarez MD, 20 mg at 05/07/24 050 ondansetron (ZOFRAN (PF)) injection 4 mg, 4 mg, Slow IV Push, Q6HPRN, Pb Tavarez MD Sliding Scale Insulin - Lispro (HumaLOG), , Subcutaneous, TID MEALS+HS, Pb Tavarez MD, 1 Units at 05/06/242117 REVIEW OF SYSTEMS: Comprehensive 10-system review was conducted and were negative except for what's noted in the HPI. The following systems were reviewed: Constitutional, cardiovascular, respiratory, gastrointestinal, genitourinary, musculoskeletal, neurologic, psychiatric, endocrinological, and hematological. PHYSICAL EXAMINATION: Vitals: 05/06/24 2014 05/06/24 2327 05/07/24 0342 05/07/24 0803 BP: (!) 161/94 105/56 121/62 123/64 Pulse: 100 56 64 69 Resp: 20 16 16 18 Temp: 36.2 ?C (97.1 ?F) 35.9 ?C (96.6 ?F) 36.1 ?C (97 ?F) 36.3 ?C (97.4 ?F) TempSrc: SpO2: 96% 95% 92% 96% Weight: 72.5 kg (159 lb 12.8 oz) 71.5 kg (157 lb 9.6 oz) Height: General: no apparent distress HEENT: normocephalic atraumatic Neck: supple, no lymphadenopathy, no bruits, no JVD Lungs: clear to auscultation bilaterally. No wheezes or rhonchi. No increased work of breathing. Cardio: Regular rate and rhythm, S1&S2 normal, no murmurs, rubs or gallops Abdomen: soft; non-tender; non-distended; normoactive bowel sounds. : not examined Rectal: not examined Extremities: no clubbing, cyanosis. ++ edema. Skin: no rashes, no visible lesions. Neuro: no gross focal deficits LABS - Reviewed pertinent labs as below: CBC BMP PT/INR WBC (10*3/?L) Date Value 05/07/2024 4.69 NA (mmol/L) Date Value 05/07/2024 139 No results found for: "PT" PLT (10*3/?L) Date Value 05/07/2024 174 K (mmol/L) Date Value 05/07/2024 4.2 INR (no units) Date Value 04/02/2023 1.1 HGB (g/dL) Date Value 05/07/2024 8.6 (L) BUN (mg/dL) Date Value 05/07/2024 75 (H) HCT (%) Date Value 05/07/2024 25.9 (L) CREATININE (mg/dL) Date Value 05/07/2024 4.08 (H) LIPID PROFILE GLUCOSE (mg/dL) Date Value 05/07/2024 85 CHOL (mg/dL) Date Value 05/18/2022 144 TSH LDL CHOL (mg/dL) Date Value 05/18/2022 87 TSH (mIU/L) Date Value 03/09/2021 4.17 CARDIAC ENZYMES HDL (mg/dL) Date Value 05/18/2022 40 (L) CK (U/L) Date Value 03/09/2021 111 TRIG (mg/dL) Date Value 05/18/2022 86 LFTs CK-MB (ng/mL) Date Value 12/28/2016 4.28 (H) AST(SGOT) (U/L) Date Value 05/06/2024 26 TROPONIN I (ng/mL) Date Value 05/07/2024 0.035 (H) ALT(SGPT) (U/L) Date Value 02/11/2018 26 ALTv (U/L) Date Value 05/06/2024 18 No results found for: "BNP" LDL CHOL (mg/dL) Date Value 05/18/2022 87 Recent Labs 05/07/24 0506 TROPNI 0.035* There are no current results on file for these tests and/or test for 1 year. LDL CHOL (mg/dL) Date Value 05/18/2022 87 NT-proBNP (pg/mL) Date Value 05/07/2024 38,300 (H) 08/03/2022 25,200 (H) ASSESSMENT/PLAN Principal Problem: Shortness of breath Active Problems: Essential hypertension Ischemic cardiomyopathy Coronary artery disease involving [place] coronary artery without angina pectoris S/P ICD (internal cardiac defibrillator) procedure Type 2 diabetes mellitus without complication, without long-term current use of insulin CASPER (dyspnea on exertion) HFrEF (heart failure with reduced ejection fraction) BRISSA (obstructive sleep apnea) Pulmonary hypertension Acute on chronic combined systolic (congestive) and diastolic (congestive) heart failure Chronic kidney disease (CKD), active medical management without dialysis, stage 5 Labs dated 05/07/2024, reviewed from the cardiovascular standpoint, shows hemoglobin reduced at 8.6, WBC count noted to be at 1.34, potassium stable at 4.2, creatinine noted to be at 0.48, troponin is mildly elevated at 0.035, NT-proBNP significantly elevated 00195. Acute on Chronic HFrEF: NYHA III-IV. S/p ICD Recommended aggressive diuresis. Due to underlying history of significant CKD, recommend to follow-up with nephrology team for aggressive volume management. Currently on IV Lasix 80 mg BID. Strongly recommended if aggressive diuresis is not achieved, would recommend starting the patient on hemodialysis during this stay in the hospital for aggressive volume management. No typical chest pain is treated. Discussed to monitor daily weights and edema status and call for adjustment if no improvement. Not on SGLT2 inhibitor due to significant renal dysfunction. Echocardiogram dated 01/16/2023 shows EF noted to be at 25 to 30%, elevated filling pressures noted, RVSP noted to be more than 60. Device check dated 10/03/2021 shows normal device function, with no significant arrhythmias. S/p ICD: Device check on 10/03/2021: normal function. EKG 01/15/2023 shows sinus rhythm, LAD, nonspecific ST-T changes noted. Echocardiogram dated 05/19/2022 reviewed shows LVEF severely reduced 2024. Elevated filling pressures noted. RVSP more than 60. Coronary angiogram dated 12/14/2015 reviewed shows severe sa[place] CAD, patent grafts noted. NT-proBNP (pg/mL) Date Value 05/07/2024 38,300 (H) 08/03/2022 25,200 (H) Elevated troponins: mildly elevated as setting of underlying CKD/heart failure. Likely type 2 LA. Recommended serial troponins times 2. Recommend to continue with telemetry monitoring. Continue with aspirin 81 mg daily. No typical chest pain is treated. Continue with aspirin/Plavix combination. Recent Labs 05/06/24 1809 05/07/24 0506 TROPNI 0.019 0.035* CAD: Continue with aspirin 81 mg daily along with carvedilol 12.5 mg BID. Continue with Plavix 75 mg daily. Continue with Isordil 20 mg TID along with hydralazine 25 mg QID. Continue with Lipitor 80 mg daily, along with Zetia 10 mg daily. Hypertension: Management as per the nephrology team. Currently on carvedilol 12.5 mg BID along with isosorbide/hydralazine combination 20/25 mg TID, home dose of Entresto 24/26 mg, 1 tablet BID noted. May consider restarting it while in the hospital if acceptable from the nephrology team. Dyslipidemia: Currently on Lipitor 80 mg daily along with Zetia 10 mg daily. LDL CHOL (mg/dL) Date Value 05/18/2022 87 Pulm hypertension: Likely due to heart failure and sleep apnea. Continue with IV diuresis. Anemia: Recommend to keep hemoglobin more than 8 from the cardiac standpoint Obstructive sleep apnea: Unable to tolerate CPAP treatment. T2DM: Follows PCP. Last Two A1C Results ([facility]/LC, POCT, [facility]) Recent Labs 05/06/24 2118 HGBA1C 6.6* Primary cardiology team: Dr. Cantu in [place]. Total Visit Time: 60 mins The total Visit time for today's visit with Srinivasa Hernandez encompassed 60 minutes. Time was spent reviewing the chart before, during and after the visit, reviewing laboratory results, taking interval history, performing the documented physical examination, completing and "cleaning up" the electronic medical record as well as addressing any questions and concerns. The time spent for patient care includes: PreCharting (eg, review of tests, notes, etc.), Obtaining and/or reviewing separately obtained history (Care Everywhere or paper records), Counseling and educating the patient/family/caregiver, Ordering medications, tests, or procedures, Ordering referrals and/or communicating with other health women's health care nurse practitioner (when not separately reported), Documenting clinical information in the electronic or other health record, and Independently interpreting results (not separately reported) and/or communicating results to the patient/family/caregiver. This report was dictated using [employer] and is subject to voice recognition errors. Please excuse any unusual inaccuracies. My diagnostic impression and treatment plans were discussed at length with the patient and family member present. Thank you for allowing us to participate in the care of Srinivasa Hernandez. If you have any questions or concerns please feel free to call our office at [phone]. I would be happy to be of further assistance for Srniivasa Hernandez wellbeing. Voice recognition software has been used to create portions of this document. An attempt to proofread has been made to minimize errors. Please do not hesitate to call with any questions. Kunal Craft MD Flap Curer, Division of Cardiology [facility] CONSULTANT [facility] - Health History and Physical Notes Date/Time Note Provider Source 2024-05-30 03:58:28 Acute Care SURGERY H&P NOTE Date of Service: 05/30/2024 Chief Complaint: Anemia, Stomach pain HPI Srinivasa Hernandez 63 year old male with PMH of HTN, IDDM2,HFrEF (EF 20-25%) s/p PCI and CABGx3 and stage 5 CKD on dialysis (TThS per patient), who presents as a transfer from [facility] due to anemia and concern for gastric perforation. Patient was initially worked up at [facility] for anemia, weakness, dizziness, SOB, and epigastric abdominal pain. Endorses intermittent episodes of dark bloody bowel movements since his most recent discharge. Denies nausea, and vomiting. Last PO intake and bowel movement was yesterday. Workup at [facility] revealed anemia and concern for gastric perforation. Transfusion of 2 units of pRBC was started en route and to [facility] for higher level of care. Of note, patient was admitted on 05/13/24 to MICU for upper GI Bleed. Patient underwent IR embolization of gastroduodenal artery and branches on 05/14/24. Endoscopy on 05/17 showed large ischemic gastric ulcer and a nonbleeding duodenal ulcer. CURRENT HOSPITAL MEDICATIONS No current facility-administered medications for this encounter. Current Outpatient Medications Medication Sig Dispense Refill pantoprazole 40 mg EC tablet Take 1 tablet by mouth in the morning and 1 tablet in the evening. 60 tablet 2 sucralfate 1 gram tablet Take 1 tablet by mouth before meals and at bedtime. 120 tablet 1 ferrous sulfate 325 mg (65 mg iron) EC tablet Take 1 tablet by mouth. allopurinoL 100 mg tablet Take 1 tablet by mouth every Sunday, and Sunday in the evening for 30 days. 12 tablet 0 sacubitriL-valsartan (ENTRESTO) 24-26 mg tablet Take 1 tablet twice daily as long as SBP > 110 180 tablet 1 furosemide 40 mg tablet Take 2 tablets by mouth every morning AND 2 tablets every evening. 120 tablet 5 Magnesium Oxide 420 mg Tab Take 400 mg by mouth in the morning. 30 tablet 0 Blood-Glucose Meter Kit Use TID, DX E11.9 (Brand upon insurance approval) 1 Kit 0 ezetimibe 10 mg tablet Take 1 tablet by mouth in the morning. 90 tablet 3 Insulin [place], Disposable, (BD INSULIN PEN NEEDLE UF) 29 gauge x 1/2" Ndle USE DIRECTED WITH LUIS ANTONIO ONCE A DAY 100 Each 0 TRESIBA FLEXTOUCH U-100 100 unit/mL (3 mL) InPn INJECT 24 UNITS UNDER THE SKIN AT BEDTIME 15 mL 0 atorvastatin 80 mg tablet TAKE 1 TABLET BY MOUTH ONCE DAILY 90 tablet 1 Insulin Syringe-Needle U-100 0.5 mL 31 gauge x 5/16 Syrg Inject insulin 2 times a day. Dx code E11.9. 100 Syringe 11 lancets (FREESTYLE LANCETS) 28 gauge Misc Use TID, DX E11.9 (Brand upon insurance approval) 100 Each 11 ipratropium 0.03 % nasal spray Use 2 Sprays in each nostril 3 (three) times daily. 30 mL 3 nitroglycerin (NITROSTAT) 0.[address] 1 tablet under the tongue every 5 (five) minutes as needed for Chest pain. 1 Bottle 3 Insulin [place], Disposable, 30 gauge x 5/16" Ndle Use as directed 1 Box 6 acetaminophen (TYLENOL EXTRA STRENGTH) 500 mg tablet Take 1 tablet by mouth every 6 (six) hours as needed for Pain. aspirin 81 mg chewable tablet Take 1 tablet by mouth daily. 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 Gout Ischemic cardiomyopathy 06/15/2014 EF 20% per pt 10/04, 15-20% 11/2015 LA (myocardial infarction) Pacemaker S/P CABG x 3 Type 2 diabetes mellitus without complication 11/23/2015 Past Surgical History: Procedure Laterality Date CABG, ARTERIAL, THREE 03/2015 [place] Tech ESOPHAGOGASTRODUODENOSCOPY N/A 05/17/2024 Surgeon: Luis Pace MD; Location: [facility]ATION IMPLANTABLE CARDIOVERTER DEFIBRILLATOR PLACEMENT 08/2016 PACEMAKERS INSERTION 08/2016 PERMACATH PLACEMENT Right 05/09/2024 Surgeon: Asad Morgan MD; Location: [facility] OR LOCATION PTCA W/POSSIBLE STENT 09/2013 [facility] PTFE GRAFT INSERTION Right 05/09/2024 Surgeon: Asad Morgan MD; [facility] Family History Problem Relation Age of Onset Asthma Mother Heart Father Hypertension Sister Diabetes Sister Diabetes Brother Hypertension Brother Heart Brother No Significant Medical Problems Daughter No Significant Medical Problems Son No Significant Medical Problems Son Social History Socioeconomic History Marital status: Occupational History Occupation: [employer] Tobacco Use Smoking status: Some Days Current packs/day: 0.00 Average packs/day: 1.5 packs/day for 25.0 years (37.5 ttl pk-yrs) Types: Cigarettes Start date: 04/23/1990 Last attempt to quit: 04/23/2015 Years since quittin.1 Smokeless tobacco: Never Tobacco comments: Trying to quit Substance and Sexual Activity Alcohol use: Yes Alcohol/week: 0.0 standard drinks of alcohol Comment: once a month Sexual activity: Not Currently Partners: Female control/protection: None Social History Narrative Lives with one of his brothers. He is , but they have been for 2 years. She accompanies him on his doctor's appointments. Mr. Hernandez is on disability for a LA in 2014. Exercise: walking and yard work. Social Determinants of Health Financial Resource Strain: Low Risk (01/16/2023) Overall Financial Resource Strain (CARDIA) Difficulty of Paying Living Expenses: Not hard at all Food Insecurity: No Food Insecurity (05/14/2024) NCSS - Food Insecurity Worried About Running Out of Food in the Last Year: No Ran Out of Food in the Last Year: No Transportation Needs: Unmet Transportation Needs (05/14/2024) NCSS - Transportation Lack of Transportation: Yes Physical Activity: Inactive (01/16/2023) Exercise Vital Sign Days of Exercise per Week: 0 days Minutes of Exercise per Session: 0 min Social Connections: Unknown (01/16/2023) Social Connection and Isolation Panel [NHANES] Frequency of Communication with Friends and Family: More than three times a week Marital Status: Housing Stability: Not At Risk (05/14/2024) NCSS - Housing/Utilities Has Housing: Yes Worried About Losing Housing: No Unable to Get Utilities: No Physical Exam Vitals: Afebrile, hemodynamically stable on admission. Vitals: 05/30/24 0305 05/30/24 0353 BP: 101/61 122/51 Pulse: 80 82 Resp: 18 24 Temp: 36.8 ?C (98.3 ?F) 36.4 ?C (97.6 ?F) TempSrc: Oral Oral SpO2: 96% 97% Weight: 169 lb (76.7 kg) General: alert and oriented in no apparent distress Head: normocephalic, atraumatic ENT: moist mucus membranes CV: hemodynamically stable Resp: unlabored, no increased work of breathing, equal bilateral chest rise Gi: abdomen soft, nondistended, no peritonitis, mild TTP at the epigastrium and periumbilical regions Extremities/Musculoskeletal : moves extremities well, bilateral LE edema LABORATORY Labs (last 24 hours): Chemistry CBC LFTs Coags, other 130 (L) 101 36 (H) 251 (H) 9.63 4.9 (LL) 262 AST: 30 ALT: 14 PT: - INR: - 4.1 23 2.89 (H) 15.9 (L) AP: 75 T Dontrell: 0.8 PTT: - eGFR: 23.8 Ca: 8.1 (L) % Ibis: 86.6 Prot: 6.5 Alb: 3.0 (L) Lact: 1.68 Procal: - Mg: - PO4: - ANC: 8.34 (H) pBNP: - Trop I: 0.048 (H) Labs reviewed independently. CBC: Hgb 4.9 and MCV 93.5 - normocytic anemia CMP: Hyponatremia, Cr 2.89 and BUN 36 , hyperglycemia Elevated Troponin elevated at 0.048 Hepatic function panel: within normal limits Hypoalbuminemia RADIOLOGY CT Angiogram Abd/Pelvis (05/29/24): I independently reviewed imaging and radiologist's reading. Free air noted around the anterior wall of the stomach, without active bleeding. Pleural effusion noted. Collection of simple fluid noted in the peritoneal and pelvic cavities. EGD 05/17/24 Non-obstructing non-bleeding gastric ulcer with pigmented material. There is no evidence of perforation. Non-bleeding duodenal ulcer with no stigmata of bleeding PATHOLOGY No new pathology. ASSESSMENT Srinivasa Hernandez is a 63 year old male with PMH of HTN, IDDM2,HFrEF (EF of 20-25%), CAD s/p PCI and CABG ,and stage 5 CKD on dialysis, recent upper GI bleed requiring IR embolization, EGD with evidence of gastric and duodenal ulcers, who presents with anemia, and evidence of gastric perforation on CT Abdomen and Pelvis. Patient is currently hemodynamically stable, without signs of generalized peritonitis. High suspicion for need for procedural intervention this admission, with consideration of multiple comorbidities. RECOMMENDATIONS: - Admit patient to SICU - Serial abdominal examination - NPO, monitored IVF resuscitation in the setting of ESRD and HFrEF - IV Zosyn and Fluconazole - Protonix 40 mg BID - SSI - Consult cardiology for optimization, elevated troponin on admission - Consult nephrology for recs ESRD on hemodialysis - Consult GI for gastric perforation - Will discuss further imaging vs procedural intervention based on evolution of clinical picture Patient was discussed with Dr. Gerson Lilly, MS3 I personally examined the patient on 05/30/2024 and have verified that Dianne Lilly's note and/or findings, including the history, physical exam, and medical decision making. Additionally, I have personally performed or re-performed the physical exam and medical decision making activities of this patient's evaluation and management service. Amy Banda MD General Surgery, PGY1 CONSULTANT Associated attestation - Prasanth Hernandez DO - 05/30/2024 3:33 PM IT CONSULTANT I personally examined the patient on 05/30/24 and agree with the resident's note as written, including any changes or additions that the resident may have made to the medical student's note. I actively participated in the decision making process. Please see the resident's note for additional details. 63 year old man who present with gastric perforation from [facility] -Last month pt underwent EGD and IR embolization of a gastric ulcer -Since then has had malaise and some dizziness -Abdominal pain brought him in; at time of exam no peritonitis, but there is some epigastric tenderness -Cannot be sure that he has been compliant with his PPI -CT demonstrates localized air outside the stomach with some ascites -Pt is on HD and has an EF of about 20% as of Apr 2024 -Hb of 4; currently obtaining RBC transfusion -Since the pt is currently HD normal and without peritonitis, no operative management urgently -Engage IR and GI -May need acid reducing procedure, but in current state the risks are not outweighed by the benefit. -Zosyn and diflucan for abx -PPI BID -Nephrology for dialysis -Follow up recs from consults Prasanth Hernandez DO SURGERY [facility] 2024-05-17 11:49:05 Endoscopy H & P Age: [age] year old Sex: male ASA Class: IV Indication: UGIB Antiplatelets/Anticoagulant s: DAPT, unclear last dose of plavix but off since admission, ASA 05/16 Labs: reviewed Previous Endoscopy: none Histories: Past Medical History: Diagnosis Date CHF (congestive heart failure) Chronic kidney disease Coronary artery disease involving sa[place] coronary artery without angina pectoris 11/23/2015 Essential hypertension 06/15/2014 ICD10 Diagnosis 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 Gout Ischemic cardiomyopathy 06/15/2014 EF 20% per pt 10/04, 15-20% 11/2015 LA (myocardial infarction) Pacemaker S/P CABG x 3 Type 2 diabetes mellitus without complication 11/23/2015 Family History Problem Relation Age of Onset Asthma Mother Heart Father Hypertension Sister Diabetes Sister Diabetes Brother Hypertension Brother Heart Brother No Significant Medical Problems Daughter No Significant Medical Problems Son No Significant Medical Problems Son Past Surgical History: Procedure Laterality Date CABG, ARTERIAL, THREE 03/2015 [place] [employer] IMPLANTABLE CARDIOVERTER DEFIBRILLATOR PLACEMENT 08/2016 PACEMAKERS INSERTION 08/2016 PERMACATH PLACEMENT Right 05/09/2024 Surgeon: Asad Morgan MD; Location: [facility] OR LOCATION PTCA W/POSSIBLE STENT 09/2013 [facility] PTFE GRAFT INSERTION Right 05/09/2024 Surgeon: Asad Morgan MD; Location: [facility] OR [facility] Current Facility-Administered Medications Medication Dose Route Frequency Last Rate Last Admin pantoprazole (PROTONIX) injection 40 mg 40 mg Slow IV Push BID atorvastatin (LIPITOR) tablet 80 mg 80 mg Oral QHS 80 mg at 05/16/24 2133 ezetimibe (ZETIA) tablet 10 mg 10 mg Oral DAILY 10 mg at 05/17/24 0817 heparin 1,000 unit/mL (10 mL) - dialysis catheter care 2,000 Units Slow IV Push PRN - SEE INSTRUCTIONS 4,100 Units at 05/16/24 1901 HYDROcodone-acetaminophen (NORCO 5) tablet 1 tablet 1 tablet Oral Q6HPRN 1 tablet at 05/16/24 2204 cyclobenzaprine (FLEXERIL) tablet 5 mg 5 mg Oral TIDPRN dextrose 50 % in water (D50W) injection 25 mL 25 mL Slow IV Push PRN glucagon HCL injection 1 mg 1 mg Intramuscular PRN heparin 1,000 unit/mL (10 mL) - dialysis catheter care 2,000 Units Slow IV Push PRN - SEE INSTRUCTIONS 4,100 Units at 05/14/24 2328 Lidocaine (LIDOCARE) 4 % patch 2 Patch 2 Patch Topical DAILY 2 Patch at 05/17/24 0816 ondansetron (ZOFRAN (PF)) injection 4 mg 4 mg Slow IV Push Q6HPRN 4 mg at 05/15/24 0503 polyethylene glycol 3350 powder 17 g 17 g Oral DAILY 17 g at 05/16/24 0808 sennosides (SENOKOT) tablet 8.6 mg 8.6 mg Oral DAILY 8.6 mg at 05/17/24 0816 Sliding Scale Insulin - Lispro (HumaLOG) Subcutaneous TID MEALS+HS 1 Units at 05/16/24 1303 No Known Allergies Social History Socioeconomic History Marital status: Occupational History 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 He is , but they have been for 2 years. She accompanies him on his doctor's appointments. Mr. Hernandez is on disability for a LA in 2013. Exercise: walking and yard work. Social Determinants of Health Financial Resource Strain: Low Risk (01/16/2023) Overall Financial Resource Strain (CARDIA) Difficulty of Paying Living Expenses: Not hard at all Food Insecurity: No Food Insecurity (05/07/2024) NCSS - Food Insecurity Worried About Running Out of Food in the Last Year: No Ran Out of Food in the Last Year: No Transportation Needs: No Transportation Needs (05/07/2024) NCSS - Transportation Lack of Transportation: No Physical Activity: Inactive (01/16/2023) Exercise Vital Sign Days of Exercise per Week: 0 days Minutes of Exercise per Session: 0 min Social Connections: Unknown (01/16/2023) Social Connection and Isolation Panel [NHANES] Frequency of Communication with Friends and Family: More than three times a week Marital Status: Housing Stability: Not At Risk (05/07/2024) NCSS - Housing/Utilities Has Housing: Yes Worried About Losing Housing: No Unable to Get Utilities: No Physical Exam: Mental Status: alert, oriented x3 Chest: unlabored on room air Abdomen: soft, non-distended, non-tender Impression and Plan: Srinivasa Hernandez is a 63 year old male with PMH as above who presents for UGIB. Will proceed with EGD. Benefits, risks, alternatives, and likelihood of achieving patient's goals of care discussed. Risks discussed including but not limited to aspiration, infection, bleeding, injury to the GI tract or surrounding vessels/structures, perforation, missed polyps/lesions, failure to obtain a diagnosis, failure to complete the procedure, cardiovascular complications such as LA, stroke, arrhythmia, and . Informed consent obtained/verified. Education provided to the patient about the procedure. Alison Boggs MD 05/17/2024 11:49 AM CONSULTANT Associated attestation - Luis Pace MD - 05/17/2024 1:12 PM IT CONSULTANT I have evaluated the patient and discussed the history, examination findings and procedure plan with Dr Boggs. I agree with the above pre-op note. GASTROENTEROLOGY [facility] 2024-05-14 00:48:24 Medicine Intensive Care History and Physical Date of Service: 05/14/2024 00:49 Intubation Day: NA Hospital Day: 0 CHIEF COMPLAINT: Upper GIB History of Present Illness Srinivasa Hernandez is a 63 year old male w/ hx of HFrEF(LV EF at 20-25% on TTE 01/16/23) secondary to ICM; h/o CAD s/p Mi s/p PCI in 2013 ([facility]) and 3V-CABG 03/2015 ([place], [place]), systemic hypertension, dyslipidemia, pulmonary hypertension, s/p ICD placement in 2016, CPAP (not on treatment - can't tolerate), CKD stage 5 on HD MWF, tobacco use via permacath who presented to MICU due to upper duodenal GIB. Patient had dark stool with bright red blood. Associated with nausea, headache, and dizziness. CT angiogram revealed contrast extravasation with pooling in the proximal duodenum coresponding to active GIB in the territory of the gastroduodenal artery, fluid overload noted, cardiomegaly, atherosclerotic disease, and bladder thickening. Hgb 8.6->7, plt 271, K 5.2, ast/alt/alk phos 107/56/128, lipase 50, troponin 0.078, INR 1.3, aptt 41, lactic acid 2.14-->2.61. He received 1 u RBC prior to transport. Reports last stool 1 hour ago was dark and bloody. Reports epigastric abdominal pain. Denies CP, SOB, orthopnea. Of note patient was recently admitted for CHF exacerbation. He received a thoracentesis for pulmonary edema with L pleural effusion which was complicated by left pneumothorax. Surgery recommended monitoring. He received HD with improvement to SOB and volume overload. He was anemic on the previous admission. PAST MEDICAL HISTORY has a past medical history of CHF (congestive heart failure), Chronic kidney disease, Coronary artery disease involving sa[place] coronary artery without angina pectoris (11/23/2015), Essential hypertension (06/15/2014), Gout, Ischemic cardiomyopathy (06/15/2014), LA (myocardial infarction), Pacemaker, S/P CABG x 3, and Type 2 diabetes mellitus without complication (11/23/2015). PAST SURGICAL HISTORY has a past surgical history that includes cabg, arterial, three (03/2015); ptca w/possible stent (09/2013); pacemakers insertion (08/2016); implantable cardioverter defibrillator placement (08/2016); ptfe graft insertion (Right, 05/09/2024); and permacath placement (Right, 05/09/2024). FAMILY HISTORY family history includes Asthma in his mother; Diabetes in his brother and sister; Heart in his brother and father; Hypertension in his brother and sister; No Significant Medical Problems in his daughter, son, and son. SOCIAL HISTORY reports that he has been smoking cigarettes. He started smoking about 34 years ago. He has a 37.5 pack-year smoking history. He has never used smokeless tobacco. He reports current alcohol use. ALLERGIES No Known Allergies REVIEW OF SYSTEMS (-)=Negative,(+)=Positive Per HPI PHYSICAL EXAMINATION Vitals: 05/13/24 2318 05/13/24 2327 05/13/24 2331 05/14/24 0045 BP: 119/51 95/47 Pulse: 71 81 66 Resp: 20 19 15 Temp: 36.7 ?C (98.1 ?F) 36.6 ?C (97.9 ?F) 36.6 ?C (97.9 ?F) 35.3 ?C (95.5 ?F) TempSrc: Oral Oral Axillary SpO2: 94% 97% 91% Weight: 72.6 kg (160 lb) Height: 1.753 m (5' 9") PHYSICAL EXAM Appearance: patient alert and NAD HEENT: neck supple Cardiovascular: RRR Respiratory: bibasilar crackles Abdomen: soft, non-tender, non-distended, no peritoneal signs Extremities: trace Labs (pertinent only)/Imaging: LABS: CBC WBC (10*3/?L) Date Value 05/13/2024 10.08 RBC (10*6/?L) Date Value 05/13/2024 2.21 (L) PLT (10*3/?L) Date Value 05/13/2024 271 HGB (g/dL) Date Value 05/13/2024 7.0 (L) HCT (%) Date Value 05/13/2024 21.9 (L) Recent Labs 10/19/23 0912 URICACID 8.0 There are no current results on file for these tests and/or test for 1 year. BMP NA (mmol/L) Date Value 05/13/2024 136 K (mmol/L) Date Value 05/13/2024 5.2 (H) CALCIUM (mg/dL) Date Value 05/13/2024 8.2 (L) CL (mmol/L) Date Value 05/13/2024 99 BUN (mg/dL) Date Value 05/13/2024 88 (H) CREATININE (mg/dL) Date Value 05/13/2024 5.39 (H) GLUCOSE (mg/dL) Date Value 05/13/2024 163 (H) CO2 TOTAL (mmol/L) Date Value 05/13/2024 27 Hepatic Function Panel ALBUMIN (g/dL) Date Value 05/13/2024 3.5 T PROTEIN (g/dL) Date Value 05/13/2024 6.8 TOTAL BILI (mg/dL) Date Value 05/13/2024 0.7 BILI UNCON (mg/dL) Date Value 05/18/2022 0.5 BILI CONJ (mg/dL) Date Value 05/18/2022 0.0 ALT(SGPT) (U/L) Date Value 02/11/2018 26 ALTv (U/L) Date Value 05/13/2024 56 (H) AST(SGOT) (U/L) Date Value 05/13/2024 107 (H) ALK PHOS (U/L) Date Value 05/13/2024 128 (H) Coagulation Panel: Recent Labs 05/09/24 0444 05/13/24 1842 PTINR 1.1 1.3 PTPAT 13.4* 15.5* APTTPAT -- 41* ABG:There are no current results on file for these tests and/or test for 1 year. DM & HLD Panel:There are no current results on file for these tests and/or test for 1 year. XR Chest 1 vw Result Date: 05/12/2024 1. Small left pneumothorax of 10% is stable. 2. Stable moderate left lung basilar patchy opacities. 3. Again mild pulmonary vascular congestion RL: 231 End of report. Microbiology: Body fluid cx 05/07 negative TTE 05/07/24 Left Ventricle Left ventricle is mildly dilated. Normal wall thickness. See diagram for wall motion findings. Severely reduced systolic function with a visually estimated EF of 20 - 25%. There is pseudonormal diastolic dysfunction. Elevated left ventricular filling pressure. Right Ventricle Right ventricle is mildly dilated. Mildly reduced systolic function. There is a pacemaker lead in the right ventricle. Left Atrium Left atrium is mildly dilated. Right Atrium Right atrium is dilated. Lead present in the right atrium. IVC/SVC IVC diameter is less than or equal to 21 mm and decreases greater than 50% during inspiration; therefore the estimated right atrial pressure is normal (~0-5 mmHg). Mitral Valve Mitral valve structure is normal. Trace transvalvular regurgitation. Tricuspid Valve Tricuspid valve structure is normal. Mild transvalvular regurgitation. Right ventricular systolic pressure is 35-40 mmHg. RA pressure is 0-5 mmHg. Aortic Valve Tricuspid. Pulmonic Valve Not well visualized. Trace transvalvular regurgitation. Ascending Aorta Normal sized aorta. Pericardium No pericardial effusion. Assessment/Plan: Srinivasa Hernandez is a 63 year old male admitted to the medical ICU with the following problems: Neuro/Psych NA Respiratory BRISSA cannot tolerate CPAP Monitoring Cardiovascular HFrEF NYHA III (LV EF at 20-25% on TTE 01/16/23) secondary to ICM s/p ICD placement in 2016 h/o CAD s/p Mi s/p PCI in 2013 ([facility]) and 3V-CABG 03/2015 ([place], [place]) Hypertension Dyslipidemia Pulmonary hypertension Elevated troponin likely type II LA Patient hypotensive, concerning for active bleed. Consider 500 cc, 1 rbc, vs pressors if needed to stabilize patient. Recommend HD with UF. Nephrology consult -hold home aspirin, plavix, lasix, entresto, statin, zetia Pressors (mcg/kg/min): NA FEN/GI Dudodenal GIB Elevated lactic acid Duodenal upper gib on CTA. IR consulted for embolization who recommended embolization in the morning. Monitoring hgb. -2 large bore IV lines. -Monitor Hgb q6h, transfuse if there is active bleeding or Hb<8. -Check INR and correct to 1.5 or below. -Give plts if less than 50. -Check fibrinogen and give cryo if less than 200. -Protonix 80 mg IV bolus and then 8 mg/hr. -NPO Stress ulcer prophylaxis: PPI Nutrition: Nothing by mouth (NPO) ID NA Renal, fluid, and electrolytes: CKD 5/ESRD on HD Nephrology consult. Last HD session Sunday Endo Diabetes mellitus 2 Takes 24 u of insulin as needed at home. Heme/Onc/Other: Normocytic anemia Acute blood loss anemia Gout Resume home medications when tolerated. Anemia work up, transfuse as needed ICU Issues: Peripheral IV 05/13/241839 Left Antecubital (Active) Site assessment Clean;Dry;Intact 05/13/241839 Line status Blood return;Saline Lock;Flushed 05/13/241839 Line interventions None required 05/13/241839 Dressing status Clean;Dry;Transparent;Intac t 05/13/241839 Dressing intervention New 05/13/241839 Number of days: 1 Peripheral IV 05/13/241842 Left;Anterior Hand Ultrasound not used (Active) Site assessment Clean;Dry;Intact 05/13/241842 Line status Flushed;Saline Lock;Blood return 05/13/241842 Line interventions None required 05/13/241842 Dressing status Transparent;Intact;Dry;Maritza n 05/13/241842 Dressing intervention New 05/13/241842 Number of days: 1 HD Catheter Tunneled (permanent) Right Subclavian (Active) Site assessment Clean;Dry;Intact 05/12/24 1115 Red lumen status Capped & Clamped 05/12/24 1115 Blue lumen status Capped & Clamped 05/12/24 1115 Dressing status Clean;Dry;Intact;CHG gel dressing;Transparent;Remove d 05/12/24 1115 Dressing intervention New 05/12/24 1115 Daily review of necessity Continued need discussed with provider 05/12/241114 Dressing Changed Today? (Chart Today's Date) 05/12/24 05/12/24 111 Number of days: 5 VTE Prophylaxis: contraindicated GI Prophylaxis: Pantoprazole Prognosis: guarded Code Status: Full MPOA/surrogate decision maker: self Prasanth Dumont MD Department of Internal Medicine CONSULTANT Associated attestation - Julio Cesar Partida MD - 05/14/2024 1:29 PM IT CONSULTANT Attending History Supplement:I personally examined the patient on 05/14/[address] Dumont's resident note as written. I actively participated in the decision-making process. Please see the resident's note for additional details. Srinivasa Hernandez is a 63 year old male with ESRD, HFrEF, CAD admitted with an upper GI bleed requiring fluid resuscitation and PRBC transfusion. Initiated iv pantoprazole. To consult interventional radiology to identify and intervene regarding GI bleed. [facility] 2024-05-06 23:02:00 [facility] Hospitalist Admission H&P Date of Service: 05/06/2024 CHIEF COMPLAINT: Shortness of breath HISTORY OF PRESENT ILLNESS Srinivasa Hernandez is a 63 year old male who presents with shortness of breath. Patient has a history of congestive heart failure with cardiomyopathy who presented to the ER with shortness of breath. Patient has a history of an ejection fraction of 20 to 25%. Patient has a defibrillator placed and has been on Entresto for the last year. Repeat echocardiogram is pending. Patient has also had progressive worsening of his renal function. Patient's baseline GFR over the last year was roughly 20. Currently patient's GFR is around 15. Patient was scheduled to get AV fistula placed. Patient will be diuresed and will get an echocardiogram. Cardiology consult as well as nephrology consult. Patient will be admitted for inpatient hospitalization for acute CHF exacerbation. 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 Jahaira Ischemic cardiomyopathy 06/15/2014 EF 20% per pt 10/04, 15-20% 11/2015 LA (myocardial infarction) Pacemaker S/P CABG x 3 Type 2 diabetes mellitus without complication 11/23/2015 PAST SURGICAL HISTORY Past Surgical History: Procedure Laterality Date CABG, ARTERIAL, THREE 03/2015 [place] [employer] IMPLANTABLE CARDIOVERTER DEFIBRILLATOR PLACEMENT 08/2016 PACEMAKERS INSERTION 08/2016 PTCA W/POSSIBLE STENT 09/2013 [facility] ALLERGIES No Known Allergies MEDICATIONS Current home medication list reviewed: Current Discharge Medication List STOP taking these medications sacubitriL-valsartan (ENTRESTO) 24-26 mg tablet Comments: Reason for Stopping: HYDRALAZINE 25 mg tablet Comments: Reason for Stopping: ISOSORBIDE DINITRATE 20 mg tablet Comments: Reason for Stopping: furosemide 40 mg tablet Comments: Reason for Stopping: metoprolol succinate XL 50 mg 24 hr tablet Comments: Reason for Stopping: allopurinoL 100 mg tablet Comments: Reason for Stopping: Magnesium Oxide 420 mg Tab Comments: Reason for Stopping: glimepiride 1 mg tablet Comments: Reason for Stopping: Blood-Glucose Meter Kit Comments: Reason for Stopping: ezetimibe 10 mg tablet Comments: Reason for Stopping: pantoprazole 40 mg EC tablet Comments: Reason for Stopping: Insulin [place], Disposable, (BD INSULIN PEN NEEDLE UF) 29 gauge x 1/2" Ndle Comments: Reason for Stopping: TRESIBA FLEXTOUCH U-100 100 unit/mL (3 mL) InPn Comments: Reason for Stopping: clopidogrel 75 mg tablet Comments: Reason for Stopping: atorvastatin 80 mg tablet Comments: Reason for Stopping: Insulin Syringe-Needle U-100 0.5 mL 31 gauge x 5/16 Syrg Comments: Reason for Stopping: lancets (FREESTYLE LANCETS) 28 gauge Misc Comments: Reason for Stopping: ipratropium 0.03 % nasal spray Comments: Reason for Stopping: nitroglycerin (NITROSTAT) 0.4 mg sublingual tablet Comments: Reason for Stopping: Insulin [place], Disposable, 30 gauge x 5/16" Ndle Comments: Reason for Stopping: acetaminophen (TYLENOL EXTRA STRENGTH) 500 mg tablet Comments: Reason for Stopping: aspirin 81 mg chewable tablet Comments: Reason for Stopping: FAMILY HISTORY Family History Problem Relation Age of Onset Asthma Mother Heart Father Hypertension Sister Diabetes Sister Diabetes Brother Hypertension Brother Heart Brother No Significant Medical Problems Daughter No Significant Medical Problems Son No Significant Medical Problems Son SOCIAL HISTORY Social History Socioeconomic History Marital status: Occupational History Occupation: [employer] Tobacco Use Smoking status: Some Days Current packs/day: 0.00 Average packs/day: 1.5 packs/day for 25.0 years (37.5 ttl pk-yrs) Types: Cigarettes Start date: 04/23/1990 Last attempt to quit: 04/23/2015 Years since quittin.0 Smokeless tobacco: Never Tobacco comments: Trying to quit Substance and Sexual Activity Alcohol use: Yes Alcohol/week: 0.0 standard drinks of alcohol Comment: once a month Sexual activity: Not Currently Partners: Female control/protection: None Social History Narrative Lives with one of his brothers. He is , but they have been for 2 years. She accompanies him on his doctor's appointments. Mr. Hernandez is on disability for a LA in 2013. Exercise: walking and yard work. Social Determinants of Health Financial Resource Strain: Low Risk (01/16/2023) Overall Financial Resource Strain (CARDIA) Difficulty of Paying Living Expenses: Not hard at all Food Insecurity: No Food Insecurity (01/16/2023) Hunger Vital Sign Worried About Running Out of Food in the Last Year: Never true Ran Out of Food in the Last Year: Never true Transportation Needs: No Transportation Needs (01/16/2023) PRAPARE - Transportation Lack of Transportation (Medical): No Lack of Transportation (Non-Medical): No Physical Activity: Inactive (01/16/2023) Exercise Vital Sign Days of Exercise per Week: 0 days Minutes of Exercise per Session: 0 min Social Connections: Unknown (01/16/2023) Social Connection and Isolation Panel [NHANES] Frequency of Communication with Friends and Family: More than three times a week Marital Status: Housing Stability: Low Risk (01/16/2023) Housing Stability Vital Sign Unable to Pay for Housing in the Last Year: No Number of Places Lived in the Last Year: 1 Unstable Housing in the Last Year: No REVIEW OF SYSTEMS 10 systems negative except per HPI PHYSICAL EXAMINATION BP 105/56 | Pulse 56 | Temp 35.9 ?C (96.6 ?F) | Resp 16 | Ht 1.753 m (5' 9") | Wt 72.5 kg (159 lb 12.8 oz) | SpO2 95% | BMI 23.60 kg/m? General: No acute distress HEENT: Normal oral mucosa, anicteric sclerae, NCAT Cardiovascular: RRR with systolic ejection murmur 2/6 Lungs: Basilar crackles Abdomen: Soft, NTND Musculoskeletal: No synovitis, normal muscle mass Genitourinary: Deferred Skin: No rash, no skin lesions Extremities: No clubbing, no cyanosis, minimal bilaterally lower extremity edema Neuro: AAOx3, no focal deficits Psych: Normal affect LABS - reviewed pertinent labs as below: CBC BMP PT/INR WBC (10*3/?L) Date Value 05/06/2024 5.66 NA (mmol/L) Date Value 05/06/2024 141 No results found for: "PT" RBC (10*6/?L) Date Value 05/06/2024 3.44 (L) K (mmol/L) Date Value 05/06/2024 4.6 INR (no units) Date Value 04/02/2023 1.1 PLT (10*3/?L) Date Value 05/06/2024 202 CALCIUM (mg/dL) Date Value 05/06/2024 9.5 HGB (g/dL) Date Value 05/06/2024 10.8 (L) CL (mmol/L) Date Value 05/06/2024 107 aPTT HCT (%) Date Value 05/06/2024 33.3 (L) BUN (mg/dL) Date Value 05/06/2024 72 (H) APTT Patient (Seconds) Date Value 01/15/2023 36 CREATININE (mg/dL) Date Value 05/06/2024 4.11 (H) IMAGING - reviewed, pertinent results as below: Hospital Encounter on 05/06/24 XR Chest 1 vw Narrative EXAM: XR CHEST 1 VW HISTORY: 63 years-old Male; dyspnea COMPARISON: CXR dated 01/30/2024 FINDINGS: Lines/Devices: Unchanged position of unipolar pacemaker projecting over the left chest wall with its lead projecting over the right ventricle with the tip partially out of the [id number].. Lungs: The lung volumes are normal on the right and decreased on the left. Mild interval worsening of moderate-sized left pleural effusion with associated atelectasis. Right-sided patchy infrahilar opacities partially obscure the right heart border. Biapical pleural parenchymal scarring is seen. No pneumothorax. Heart/Mediastinum: The cardiomediastinal silhouette is partially obscured. Bones and soft tissues: No acute osseous findings are detected. Sternotomy wires appear intact and unchanged in position Impression Mild interval worsening of moderate-sized left pleural effusion with associated atelectasis. Right-sided patchy infrahilar opacities may represent aspiration, atelectasis and/or developing infection. Recommend clinical correlation with procalcitonin. Preliminary Report Dictated by Resident: David Salcido I, Brennan Nesbitt MD., have reviewed this study and agree with the above report. ASSESSMENT: 1. Acute CHF exacerbation/heart failure with reduced ejection fraction 2. Acute on chronic kidney failure stage V 3. History of CAD s/p CABG 4. Essential HTN 5. Type II DM PLAN: 1. Acute CHF exacerbation/HFrEF; continue with diuretics at this time. Echocardiogram pending for in the morning. Cardiology consultation pending. Continue with Entresto, Aldactone, and additional cardiac meds. Patient probably has a component of cardiorenal syndrome with slow progressively worsening of renal function. 2. Acute on chronic kidney failure; patient with stage V chronic kidney disease. Renal function is progressively worsening over the last 10 years. Patient is following up with nephrology. Nephrology consulted. Continue with cardiac meds to optimize systolic functioning. 3. History of CAD status post CABG; continue with cardiac meds including antiplatelet therapy and statin therapy 4. History of hypertension; continue with antihypertensives 5. Type 2 diabetes; strict blood sugar control DVT prophylaxis: heparin Stress ulcer prophylaxis: pantoprazole Code status: FULL Advanced Care Planning (Z71.89) Above assessment and plan discussed at length with patient, patient expressed full understanding. Questions and concerned addressed. Surrogate decision maker: NO Level of care expected after discharge: HOME Time spent: 3 minutes discussing the advanced care plan Smoking Cessation: (Z71.6) Tobacco user?: NO Patient will require inpatient stay of 2 midnights or more given high risk of morbidity and mortality. [place] THREAD CHECKER was verified during stay Bakari Nesbitt MD CONSULTANT IM-INTERNAL MEDICINE STAFF [facility] 2023-09-08 10:45:37 Medicine History & Physical Date of Service: 09/08/2023 Pt presents from: Home CC: Altered mental status History of Present Illness: Srinivasa Hernandez is a 63 year old male with past md hx including coronary disease status post PCI, hypertension, hyperlipidemia, diabetes mellitus type 2 on insulin, ischemic cardiomyopathy, congestive heart failure that presents to the ED for altered mental status. Per patient and at bedside he does have a history of diabetes and takes approximately 25 units of insulin daily along with glipizide. Per patient and he had a friend over yesterday and had 6 [place] Light's with his friend afterwards he did not eat. He states his blood sugar was approximately 140 so instead of 25 units he gave himself 15 units of insulin. Overnight he awoke feeling his blood sugar was low he went to the kitchen called his who attempted to give him sugar of some sort but was unsuccessful and called 911 instead. EMS found him with a blood glucose of 49 he was given D10 and was brought to the hospital for evaluation. In the emergency department his blood glucose was noted be 99 mg/dL. His initial temperature was 93.5 degrees. He was placed on Bear Hugger and temperature corrected in the emergency department to 98.3 degrees. Patient did eat at some point this morning. Repeat blood sugar was 80 mg/dL. Hospitalist call for admission. On my exam patient is alert asymptomatic he has eaten breakfast ambulating in the room anxious to be discharged home. He does state compliance with medications including glipizide and insulin. He drinks on rare occasion (per patient and he only drank that much because he had a budy come over). Prior smoker denies drugs. 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 Family Hx: Noncontributory unless mentioned above Social History Tobacco Use Smoking status: Some Days Current packs/day: 0.00 Average packs/day: 1.5 packs/day for 25.0 years (37.5 ttl pk-yrs) Types: Cigarettes Start date: 04/23/1990 Last attempt to quit: 04/23/2015 Years since quittin.3 Smokeless tobacco: Never Tobacco comments: Trying to quit Substance Use Topics Alcohol use: Yes Alcohol/week: 0.0 standard drinks of alcohol Comment: once a month Current Scheduled Medications Current IV Current Facility-Administered Medications: [START ON 09/09/2023] allopurinoL (ZYLOPRIM) tablet 200 mg, 200 mg, Oral, DAILY, Jony Ram DO [START ON 09/09/2023] aspirin chewable tablet 81 mg, 81 mg, Oral, DAILY, Jony aRm DO atorvastatin (LIPITOR) tablet 80 mg, 80 mg, Oral, QHS, Jony Ram DO [START ON 09/09/2023] clopidogreL (PLAVIX) 75 mg tablet 75 mg, 75 mg, Oral, DAILY, Jony Ram DO dextrose 50 % in water (D50W) injection 25 mL, 25 mL, Slow IV Push, PRN, Eder Quezada MD [START ON 09/09/2023] ezetimibe (ZETIA) tablet 10 mg, 10 mg, Oral, DAILY, Jony Ram DO [START ON 09/09/2023] furosemide (LASIX) tablet 80 mg, 80 mg, Oral, QAM AND furosemide (LASIX) tablet 80 mg, 80 mg, Oral, QPM, Jony Ram DO glucagon (GLUCAGEN DIAGNOSTIC KIT) injection 1 mg, 1 mg, Intramuscular, PRN, Eder Quezada MD hydrALAZINE (APRESOLINE) tablet 25 mg, 25 mg, Oral, Q8H, Jony Ram DO isosorbide dinitrate (ISORDIL) tablet 20 mg, 20 mg, Oral, Q8H, Jony Ram DO [START ON 09/09/2023] metoprolol succinate XL (TOPROL XL) tablet 50 mg, 50 mg, Oral, DAILY, Jony Ram DO [START ON 09/09/2023] pantoprazole (PROTONIX) EC tablet 40 mg, 40 mg, Oral, DAILY, Jony Ram DO sacubitriL-valsartan (ENTRESTO) 24-26 mg tablet 1 tablet, 1 tablet, Oral, BID, Jony Ram DO Objective: Vitals: Vitals: 09/08/23 0744 09/08/23 0800 09/08/23 0939 09/08/23 1000 BP: 133/52 120/52 122/55 121/57 Pulse: 85 83 83 83 Resp: 14 Temp: 36.2 ?C (97.1 ?F) TempSrc: Tympanic SpO2: 99% 99% 100% 99% Weight: 75 kg (165 lb 4.8 oz) Height: 1.753 m (5' 9") I/O's: Intake/Output Summary (Last 24 hours) at 09/08/2023 1045 Last data filed at 09/08/2023 0900 Gross per 24 hour Intake 250 ml Output -- Net 250 ml Physical Exam: General: NAD, Alert, lying in bed comfortable, cogent speech. HEENT: anicteric, oral mucosa dry Neck: supple, no JVD, no bruits. Chest: CTA B/L, no W/R/C. Heart: RRR, S1/S2, no M/G/R Abdominal: BS normoactive, soft, ND, NT. Skin/Extremities: no rash, no cyanosis, warm and dry, no LE edema. Neurological: CN II-XII grossly intact, no focal deficits. Labs: BMP:BMP NA (mmol/L) Date Value 09/08/2023 133 (L) 04/06/2023 137 03/14/2023 140 01/17/2023 138 01/16/2023 138 K (mmol/L) Date Value 09/08/2023 3.3 (L) 04/06/2023 4.0 03/14/2023 3.4 (L) 01/17/2023 3.7 01/16/2023 3.9 CALCIUM (mg/dL) Date Value 09/08/2023 8.1 (L) 04/06/2023 8.9 03/14/2023 8.8 01/17/2023 8.1 (L) 01/16/2023 8.5 (L) CL (mmol/L) Date Value 09/08/2023 102 04/06/2023 99 03/14/2023 104 01/17/2023 103 01/16/2023 100 BUN (mg/dL) Date Value 09/08/2023 53 (H) 04/06/2023 44 (H) 03/14/2023 47 (H) 01/17/2023 51 (H) 01/16/2023 46 (H) CREATININE (mg/dL) Date Value 09/08/2023 3.35 (H) 04/06/2023 2.85 (H) 03/14/2023 3.16 (H) 01/17/2023 2.86 (H) 01/16/2023 2.55 (H) GLUCOSE (mg/dL) Date Value 09/08/2023 99 04/06/2023 152 (H) 03/14/2023 126 (H) 01/17/2023 93 01/16/2023 137 (H) CO2 TOTAL (mmol/L) Date Value 09/08/2023 17 (L) 04/06/2023 26 03/14/2023 28 01/17/2023 28 01/16/2023 31 CBC:CBC WBC (10*3/?L) Date Value 09/08/2023 4.44 RBC (10*6/?L) Date Value 09/08/2023 2.50 (L) PLT (10*3/?L) Date Value 09/08/2023 212 HGB (g/dL) Date Value 09/08/2023 8.3 (L) HCT (%) Date Value 09/08/2023 25.2 (L) BMP:Hepatic Function Panel ALBUMIN (g/dL) Date Value 09/08/2023 3.7 T PROTEIN (g/dL) Date Value 09/08/2023 7.3 TOTAL BILI (mg/dL) Date Value 09/08/2023 0.4 BILI UNCON (mg/dL) Date Value 05/18/2022 0.5 BILI CONJ (mg/dL) Date Value 05/18/2022 0.0 ALT(SGPT) (U/L) Date Value 02/11/2018 26 ALTv (U/L) Date Value 09/08/2023 12 AST(SGOT) (U/L) Date Value 09/08/2023 24 ALK PHOS (U/L) Date Value 09/08/2023 124 (H) Troponin: Recent Labs 09/08/23 0527 TROPNI 0.019 I have reviewed all relevant labs Imaging: XR CHEST 1 VW Result Date: 09/08/2023 EXAM: XR CHEST 1 VW COMPARISON: Multiple prior studies with the most recent one on 01/16/2023. HISTORY: 63 years-old Male; cough FINDINGS: An AICD projects over the left chest with its projecting the right ventricle. Post CABG surgical changes. Lungs: The lung volumes are normal. Very small hazy opacity at the right medial lung lobe. Possible consolidation at the left lower lung cannot be evaluated due to overlying fluid. No pneumothorax. Redemonstrated trace right and medium left pleural effusion. Heart/Mediastinum: The cardiac silhouette appears normal. Bones and soft tissues: No acute osseous findings are detected. Trace right and moderate pleural effusion. Suspected focus of aspiration versus consolidation at the right middle lung. Preliminary Report Dictated by Resident: Anthony Hoover Assessment and plan: Principal Problem: Hypoglycemia Acute encephalopathy: Metabolic in nature secondary to hypoglycemia, resolved - Continue to monitor Symptomatic hypoglycemia: In the setting of missing a meal given both glipizide and insulin -Resume home regime as patient is returned to diet, will hold glipizide today -Counseled on the importance of compliance with diet and medication. Instructed to hold insulin if he is not eating -I have asked him to follow-up with PCP regarding sliding scale instructions for insulin going forward Hypothermia: Resolved, suspect secondary to hypoglycemia - Continue to monitor Coronary disease: Status post PCI/CABG - Continue aspirin and Plavix - Continue statin - Continue metoprolol - Continue Isordil Ischemic cardiomyopathy: - Continue Entresto, metoprolol and Lasix Macrocytic anemia: Unclear underlying etiology will need to be worked up outpatient to rule out anemia of chronic disease versus other causes - Follow-up PCP Patient was counseled on importance of cessation or moderation of alcohol consumption. Per both patient and family state he does drink rarely and they are aware of the dangers. DVT prophylaxis: Heparin [place] THREAD CHECKER was verified Disposition: Await [facility] Procedure Notes Date/Time Note Provider Source 2024-05-14 16:41:00 VASCULAR AND INTERVENTIONAL RADIOLOGY PROCEDURE NOTE Pre-procedure diagnosis: Upper GI bleed with extravasation noted on CTA Post-procedure diagnosis: Same Procedure: Ultrasound guided common femoral artery access sheath placement (CPT code: 83822 and 89413) Limited retrograde angiogram through common femoral artery access sheath with interpretation (CPT code: 40368) Celiac artery catheterization (CPT code: 76405) and angiography with interpretation (CPT code: 53291). Superior mesenteric artery catheterization (CPT code: 89720) and angiography with interpretation (CPT code: 56666). Common hepatic artery catheterization (CPT code: 89899) and angiography with interpretation (CPT code: 46274). Gastroduodenal artery catheterization (CPT code: 53814) and angiography with interpretation (CPT code: 04666). Gastroepiploic artery catheterization (CPT code: 60491) and angiography with interpretation (CPT code: 90828). Superior pancreaticoduodenal catheterization (CPT code: 09447) and angiography with interpretation (CPT code: 73788). Right gastric artery catheterization (CPT code: 10372) and angiography with interpretation (CPT code: 90360). Embolization of gastroduodenal artery and its branches utilizing gelfoam and metallic coils (CPT code: 42564) Closure of CF arteriotomy site with 6Fr Angioseal (CPT code: G0269). Findings: Diagnostic angiograms of the celiac and superior mesenteric arteries show a replaced common hepatic artery. No pseudoaneurysm or extravasation was seen. Successful embolization of the gastroduodenal artery and its branches using gelfoam and coils. Complications: None immediate Condition: Unchange Estimated blood loss: < 5 mL Recommendation -Plan: ICU care and hemodynamic monitoring. If patient continues to bleed, recommend endoscopy. - Keep right and left leg straight for four hours. - Monitor for hemodynamic instability and any evidence of brisk GI bleeding. - IR on board and will continue to follow, please page IR for any questions. Thank you for allowing us participate in the care of this patient. Full dictated note to follow in PACS. [facility] Interventional Radiology #: [id number] CONSULTANT Associated attestation - Tino Li MD - 05/18/2024 12:51 PM IT CONSULTANT I was present for and supervised the entire procedure(s). [facility] 2024-05-07 13:23:44 VASCULAR AND INTERVENTIONAL RADIOLOGY PROCEDURE NOTE Pre-procedure diagnosis: Left pleural effusion Post-procedure diagnosis: Same Procedure: Ultrasound guided left thoracentesis. Findings: Large volume left pleural effusion. Successful ultrasound guided thoracentesis. 1800 cc serous fluid aspirated. Samples sent to lab for analysis. Post procedure CXR pending. Complications: None immediate. Condition: Unchanged. Estimated blood loss: Minimal, less than 1 cc. Full dictated note to follow in PACS. CONSULTANT RAD-DIAGNOSTIC RADIOLOGY STAFF [facility] 2024-05-07 09:07:08 Patient recieved to Radiology for pleural effusion . Indication for procedure is Thoracentesis Pt identified using name and . lab animal technologist monitoring is Marquita mazariegos IR Faculty supervising is Karlie Nesbitt obtained consent as 912 Invasive procedure checklist completed at 920 Time out completed at 922 Pre-procedure vitals are: BP 132/62 HR 69 O2 99 Procedural vitals are: BP 115/47 HR 72 O2 97 Post procedure vitals are: BP 114/49 HR 71 O2 97 Specimen: 1800 cc removed from the left chest Post procedure disposition Procedure performed bedside. CONSULTANT Dia Cardoso [facility] Notes Date/Time Note Provider Source 2024-06-02 17:36:27 Hemodialysis: consent verification, pt identified by name & MR number by 2 staff members, call light in reach. Education: HD UF time & goal, s/s to report to healthcare team during and post treatment: Nausea/vomiting Muscle cramping Headache Low blood pressure Weakness Dizziness Blurred vision Bleeding at access site Problem: Procedure Routine Goal: Knowledge of procedure Outcome: Resolved [facility] 2024-06-02 13:46:57 Problem: Falls, Risk of Goal: Absence of falls Outcome: Resolved Problem: Bleeding, Risk of Goal: Absence of impaired coagulation signs and symptoms Outcome: Resolved Goal: Absence of active bleeding Outcome: Resolved Problem: Procedure Routine Goal: Absence of post-procedure complications Outcome: Resolved Goal: Knowledge of procedure Outcome: Resolved IDA Walker RN [facility] 2024-06-02 13:15:52 Images from the original note were not included. Pharmacy Recommendations for Patient Admission: Patient reported that he was instructed to take Ezetimibe and furosemide however orders were discontinued. Check the need before patient discharge. The [facility] medication list has been updated and reflected in the chart below. Please use the [facility] Med List for ordering home doses during admission. Patient Adherence: Adherent to all medications. Source(s) used in interview: Patient and Medical Records Interview limitations: None Medications Added Medications Removed Medications Modified NA Ferrous sulphate Entresto NA Allergies as of 05/30/2024 (No Known Allergies) Pharmacy Updated [facility] Med List Medication Sig amoxicillin-pot clavulanate 500 mg (AUGMENTIN) 500-125 mg tablet Take 1 tablet by mouth in the morning and 1 tablet in the evening. Do all this for 4 days. fluconazole 200 mg tablet Take 1 tablet by mouth in the morning for 4 days. pantoprazole 40 mg EC tablet Take 1 tablet by mouth in the morning and 1 tablet in the evening. sucralfate 1 gram tablet Take 1 tablet by mouth before meals and at bedtime. allopurinoL 100 mg tablet Take 1 tablet by mouth every Sunday, and Sunday in the evening for 30 days. [DISCONTINUED] furosemide 40 mg tablet Take 2 tablets by mouth every morning AND 2 tablets every evening. Magnesium Oxide 420 mg Tab Take 400 mg by mouth in the morning. Blood-Glucose Meter Kit Use TID, DX E11.9 (Brand upon insurance approval) [DISCONTINUED] ezetimibe 10 mg tablet Take 1 tablet by mouth in the morning. Insulin [place], Disposable, (BD INSULIN PEN NEEDLE UF) 29 gauge x 1/2" Ndle USE DIRECTED WITH KWIKPEN ONCE A DAY TRESIBA FLEXTOUCH U-100 100 unit/mL (3 mL) InPn INJECT 24 UNITS UNDER THE SKIN AT BEDTIME atorvastatin 80 mg tablet TAKE 1 TABLET BY MOUTH ONCE DAILY Insulin Syringe-Needle U-100 0.5 mL 31 gauge x 5/16 Syrg Inject insulin 2 times a day. Dx code E11.9. lancets (FREESTYLE LANCETS) 28 gauge Misc Use TID, DX E11.9 (Brand upon insurance approval) ipratropium 0.03 % nasal spray Use 2 Sprays in each nostril 3 (three) times daily. Insulin [place], Disposable, 30 gauge x 5/16" Ndle Use as directed acetaminophen (TYLENOL EXTRA STRENGTH) 500 mg tablet Take 1 tablet by mouth every 6 (six) hours as needed for Pain. Outpatient Pharmacy Contact Information: [facility] [address] [place] [id number] Thank you for the opportunity to participate in the care of this patient. Yaya Gutierrez RPH 1:09 PM, 06/02/2024 [facility] Department of Pharmacy [facility] Phone: GAL: [phone] IDA Gutierrez RPH [facility] 2024-06-02 01:42:51 Problem: Falls, Risk of Goal: Absence of falls Outcome: Progressing as expected Problem: Bleeding, Risk of Goal: Absence of impaired coagulation signs and symptoms Outcome: Progressing as expected Goal: Absence of active bleeding Outcome: Progressing as expected Problem: Procedure Routine Goal: Absence of post-procedure complications Outcome: Progressing as expected Goal: Knowledge of procedure Outcome: Progressing as expected IDA Noland RN [facility] 2024-06-01 09:38:51 Problem: Falls, Risk of Goal: Absence of falls Outcome: Progressing as expected Problem: Bleeding, Risk of Goal: Absence of impaired coagulation signs and symptoms Outcome: Progressing as expected Goal: Absence of active bleeding Outcome: Progressing as expected Problem: Procedure Routine Goal: Absence of post-procedure complications Outcome: Progressing as expected Goal: Knowledge of procedure Outcome: Progressing as expected IDA De Paz RN [facility] 2024-06-01 00:10:37 Problem: Bleeding, Risk of Goal: Absence of impaired coagulation signs and symptoms Outcome: Progressing as expected Goal: Absence of active bleeding Outcome: Progressing as expected Problem: Procedure Routine Goal: Absence of post-procedure complications Outcome: Progressing as expected Goal: Knowledge of procedure Outcome: Progressing as expected [facility] 2024-05-31 13:16:59 HEMODIALYSIS NURSING NOTE Number Hours: 4.0 hours Bath: 3K 3 Calcium Heparin: zero Access: right Catheter permanent IJ Net UF: 1liter Weight: pre 81 kg, post 80 kg Post BP 109/58 Post Pulse 82 Antibiotics/Medications Given: none Complications/Events of Treatment: 915- drop in BP. No complaints. UF placed off. No NS needed. 930- BP improved, UF placed on, UF goal remains at 1 liter. 1100- circuit clotted. Blood returned. Lumens flushed with NS 1115- treatment resumed with new circuit. Nephrology notified of issues during beside rounds while patient received treatment. Handoff report completed and attached to Patient Chart Verbal report given to: CATHY Stevens Mode of Transport Back to Unit: NA - patient done at bedside See hemodialysis flowsheet for details of treatment. [facility] 2024-05-31 08:34:37 Hemodialysis Plan of care reviewed r/t treatment time, UF goal. I reviewed care of dialysis perm cath during tx. Pt updated during tx as needed. I reviewed possible side effects of HD tx, such as s/s of hypotension, weakness, dizziness, H/A, cramping (during tx and at rare times after tx), n/v, vision changes, CP or any other concerns. Patient acknowledge understanding of treatment plan. Problem: Procedure Routine Goal: Absence of post-procedure complications Outcome: Progressing as expected Note: Hemodialysis tx Goal: Knowledge of procedure Outcome: Progressing as expected Note: Hemodialysis tx [facility] 2024-05-31 05:14:38 Problem: Bleeding, Risk of Goal: Absence of impaired coagulation signs and symptoms Outcome: Progressing as expected Goal: Absence of active bleeding Outcome: Progressing as expected IDA Page RN [facility] 2024-05-30 17:10:31 Pt stable for transfer to ICU 832. Pt to floor with ED RN, cost recovery technician. Pt on stretcher Zoll defibrillator and ambu bag present on bed, pt on tele monitoring monitored by RN. [facility] Yoselin Gaines RN [facility] 2024-05-30 16:56:39 Pt report given to CATHY Humphrey receiving pt to room 832. Updated pt on plan of care. Verbalized understanding awaiting transport to ICU [facility] 2024-05-30 16:44:22 Attempt to call pt report to 8B. Unsuccessful d/t no answer. Will attempt again in 5 min [facility] 2024-05-30 16:10:54 SICU not able to take patient at this time due to staffing. IDA Blackwood RN [facility] 2024-05-30 12:00:00 Pt medicated for nausea per JUN. Checked allergies and Name and of pt. Explained to the pt why medication is given.updated pt and his son at bedside on plan of care. Awaiting ICU bed assignment. Collected labs ordered. Pt remains NPO. Denies any complaints of pain. [facility] 2024-05-30 10:30:32 Assisted pt to the chair at bedside as requested for comfort. Pts son remains at bedside. Pt remains on bedside nurse monitoring. NAD noted [facility] 2024-05-30 10:13:31 Pts son at bedside, updated on pts plan of care. Verbalized understanding. [facility] 2024-05-30 09:32:32 GI consult at bedside [facility] 2024-05-30 09:09:04 Pt lying in bed, with head on head raised for comfort, respirations even and unlabored, no distress noted. Bed locked and lowered with side rail up. Pt understands plan of care and verbalizes understanding. No medications, labs or interventions due at this time. Call sanford with in reach, awaiting ICU bed assignment [facility] 2024-05-30 08:32:24 Pt awaiting GI consult arrival Nephrology discussing consent for HD, signed by pt and witnessed by CATHY Barclay [facility] 2024-05-30 08:31:49 Nephrology at bedside [facility] 2024-05-30 08:02:21 Pt medicated per JUN. Checked allergies and Name and of pt. Explained to the pt why medication is given. Updated pt on plan of care, verbalized understanding. Remains on bedside nurse monitoring. Pt refusing keane cath at this time. States he can urinate in the urinal. Urinal at bedside within pt reach. Pt reports he wants something to eat; instructed pt he is NPO at this time meaning he is unable to have anything to eat or drink. Verbalized understanding. Denies any complaints at this time. Warm blanket provided as requested. [facility] 2024-05-30 06:59:42 Pt requested fluconazole IV from pharmacy. Awaiting arrival for admnistration [facility] 2024-05-30 06:58:54 Pt report received from CATHY Garcia. Pt pending ICU bed assignment. Pt remains on bedside nurse monitoring [facility] 2024-05-30 05:39:19 Patient medicated per JUN, EKG completed, pt repositioned in stretcher. No other needs at this time. Pt resting in stretcher, pending ICU bed assignment. CONSULTANT [facility] 2024-05-30 03:52:23 Unit of blood finished infusing at this time. Vitals updated in flow sheet IDA Grover RN [facility] 2024-05-30 03:27:46 Gen surg at bedside CONSULTANT [facility] 2024-05-30 03:05:05 Srinivasa Hernandez is a 63 year old male arrives to ED stretcher via EMS as transfer from [facility] ER accepted by General Surgery. Pt arrives with pRBCs infusing at 150 mL/hr. Unit # [id number]. This is pts second unit of pRBCs tonight. Pt awake, alert, answering questions appropriately. Bilateral lower extremity swelling. Pt with dialysis fistula to R arm, HD cath to R subclavian. Last full dialysis Sunday. Gen Surg paged, returned page and notified of patient arrival. IDA Garcia RN [facility] 2024-05-30 01:50:52 Patient transferred to [facility] ED for diagnosis of anemia and gastric perforation Patient agrees to transfer/admit plan and verbalized understanding of plan of care, family aware of plan Patient awake alert, oriented, resp reg unlabored, skin w/d PIV patent, no s/s infiltration noted, No adverse reaction to medications given while in ED. Report given to [facility] EMS personnel IDA Cardenas RN [facility] 2024-05-30 01:46:38 [facility] ambulance personnel concerned about BP prior to dispo. ERP consulted, no new orders. Patient remains alert, A&Ox4, able to transfer from ED stretcher to EMS stretcher. No suspected transfusion reaction. Care transferred to [facility] at this time. [facility] 2024-05-30 01:15:26 Nurse Report Report given to CATHY Huertas. Chief complaint, assessment findings, infusion verify and orders reviewed. Plan of care discussed via phone with both nurses. Patient/family members verbalized understanding. Sheryl Mckeon RN [facility] Sheryl Mckeon RN [facility] 2024-05-30 00:40:00 Blood transfusion stopped; total volume per infusion pump 423 mL; no apparent S&S of transfusion reaction; pt. Tolerated well; bed locked & lowered with SR upx2; call light within reach; spouse at bedside; plan of care ongoing [facility] 2024-05-29 22:31:00 Blood transfusing @ 150 mL/hr; no apparent S&S of transfusion reaction; bed locked & lowered with SR upx2; call light within reach; spouse at bedside; plan of care ongoing [facility] 2024-05-29 22:16:00 Blood transfusing @ 150 mL/hr; no apparent S&S of transfusion reaction; bed locked & lowered with SR upx2; call light within reach; spouse at bedside; plan of care ongoing [facility] 2024-05-29 22:01:00 Blood transfusing @ 150 mL/hr; no apparent S&S of transfusion reaction; bed locked & lowered with SR upx2; call light within reach; spouse at bedside; plan of care ongoing [facility] 2024-05-29 21:47:00 Blood Infusion Rate Change to 150 mL; no apparent S&S of transfusion reaction; bed locked & lowered with SR upx2; call light within reach; spouse at bedside; plan of care ongoing [facility] 2024-05-29 21:32:00 Transfusion Started @ 75 mL/hr; bed locked & lowered with SR upx2; call light within reach; spouse at bedside; plan of care ongoing [facility] 2024-05-29 21:30:00 System Downtime; unable to scan unit; utilized system downtime flowsheet; bed locked & lowered with SR upx2; call light within reach; spouse at bedside; plan of care ongoing [facility] 2024-05-29 21:30:00 Blood verified with second RN at bedside; Second nurse CATHY Gastelum [facility] 2024-05-29 21:25:00 Pre-transfusion V/S documented [facility] 2024-05-29 18:51:58 Patient arrived via WC with family c/o low Hgb numbers. Hgb 4.2 per Dialysis nurse. Patient I weak, dizzy, SOB. Dialysis yesterday (MWF) no fluids pulled off due to a low BP. Patient prescribed Midodrine picked up today. Hasn't started yet.Fistula to right arm and tunneled cath to right subclavian. CONSULTANT Jeny Rodriguez RN [facility] 2024-05-29 18:44:00 Srinivasa Hernandez is a 63 year old male signed out to me by Dr. Herrera. Patient anemic to 4.9. Patient consented and to receive 2U PRBC. Patient pending imaging, reassessment and anticipated admission. Hospital Encounter on 05/29/24 CT Angiogram abdomen/pelvis Narrative Ordering physician: MICHAEL HERRERA Indication: Lower GI bleed COMPARISON: CTA of the abdomen and pelvis dated 05/13/2024 TECHNIQUE: CTA of the abdomen and pelvis performed before and after the administration of intravenous contrast material. Three-dimensional reformats were generated following completion of the exam. CT scan was performed according to ALARA (as low as reasonably achievable) policy. FINDINGS: The patient is status post median sternotomy with a multiple lead pacemaker in place. There is a moderate right and large left pleural effusion, with associated atelectasis. The liver, gallbladder, spleen and adrenal glands are within normal limits. There is a new hypoattenuating focus in the neck of the pancreas, measuring 2.9 cm (series 16, image 62). This communicates with a hypoattenuating and air-containing focus at the head of the pancreas (series 16, image 69). The kidneys are normal in appearance bilaterally without hydronephrosis. No abdominal aortic aneurysm or dissection is appreciated. Compared to the previous exam, there is new extraluminal air in the anterior abdomen, predominantly adjacent to the anterior wall of the stomach. There are multiple new embolization coils in the stomach. There is some hyperdense material in the stomach on precontrast imaging. No definite active extravasation is appreciated. There are small to moderate free fluid in the abdomen and pelvis. There is no bowel obstruction, widespread diverticulosis or acute diverticulitis. No intraluminal extravasation of contrast is appreciated. The appendix is identified and within normal limits. Bone windows through the abdomen and pelvis demonstrate no osseous destructive lesion. Impression Compared to the previous exam, there is new extraluminal air predominantly pancreas is negative Lisa radiology palatine weeks adjacent to the anterior wall of the stomach, suggestive of gastric perforation. The patient is status post interval embolization of multiple arterial structures adjacent to the distal stomach. Small to moderate free fluid in the abdomen and pelvis. Bilateral pleural effusions, large on the left, with associated atelectasis. New hypoattenuating focus in the neck of the pancreas, measuring 2.9 cm. This communicates with a hypoattenuating and air-containing structure near the head of the pancreas. Differential considerations could include pancreatic necrosis and a peripancreatic abscess. RL: [id number] AFC: [id number] Critical Result: Gastric perforation Findings discussed with Dr Davey at 05/30/2024 12:31 AM, who acknowledged receipt and understanding of the findings. Latest Reference Range & Units 05/29/24 19:39 WBC x10 3 4.20 - 10.70 10*3/?L 9.63 RBC x10 6 4.26 - 5.52 10*6/?L 1.70 (L) HGB 12.2 - 16.4 g/dL 4.9 (LL) HCT 38.4 - 49.3 % 15.9 (L) MCV 81.7 - 95.6 fL 93.5 MCH 26.1 - 32.7 pg 28.8 MCHC 31.2 - 35.0 g/dL 30.8 (L) RDW-SD 38.5 - 51.6 fL 68.7 (H) RDW-CV 12.1 - 15.4 % 21.2 (H) PLT x10 3 150 - 328 10*3/?L 262 MPV 9.8 - 13.0 fL 12.0 NRBC /100 WBC 0.0 - 10.0 /100 WBCs 0.0 NRBC x10 3 10*3/?L <0.01 GRAN MAT (NEUT) % % 86.6 IMM GRAN % % 0.60 LYMPH% % 4.2 MONO % % 8.1 EOS % % 0.2 BASO % % 0.3 GRAN MAT x10 3 (ANC) 1.99 - 6.95 10*3/uL 8.34 (H) IMM GRAN x10 3 0.00 - 0.06 10*3/uL 0.06 LYMPH x10 3 1.09 - 3.23 10*3/uL 0.40 (L) MONO x10 3 0.36 - 1.02 10*3/uL 0.78 EOS x10 3 0.06 - 0.53 10*3/uL <0.03 (L) BASO x10 3 0.01 - 0.09 10*3/uL 0.03 NA 135 - 145 mmol/L 130 (L) K 3.5 - 5.0 mmol/L 4.1 CL 98 - 108 mmol/L 101 CO2 TOTAL 23 - 31 mmol/L 23 AGAP 2 - 16 6 BUN 7 - 23 mg/dL 36 (H) GLUCOSE 70 - 110 mg/dL 251 (H) CREATININE 0.60 - 1.25 mg/dL 2.89 (H) eGFR mL/min/1.73m2 23.8 TOTAL BILI 0.1 - 1.1 mg/dL 0.8 (LL): Data is critically low (L): Data is abnormally low (H): Data is abnormally high Patient's VS on my examination. BP 114/57 | Pulse 79 | Temp 36.7 ?C (98.1 ?F) | Resp 17 | Ht 1.753 m (5' 9") | Wt 76.7 kg (169 lb) | SpO2 98% | BMI 24.96 kg/m? Patient with epigastric and upper abdominal TTP. Medical Decision Making Srinivasa Hernandez is a 63 year-old male with PMHx of CHF, HTN, ESRD on dialysis (MWF) presenting with SOB and lightheadedness. Patient did not have fluids pulled off yesterday at dialysis secondary to low blood pressure. Patient was prescribed midodrine, but has not yet started. Per chart review, patient was recently admitted 05/13 to 05/19/24 for upper GI bleed secondary to gastric ulcer and duodenal ulcer. Patient had an endoscopy on 05/17/24. As above patient with anemia. Consented for blood by Dr. Herrera and 2UPRBCs to be given, currently receiving the first. Patient tender on examination, but without peritonitis on examination. Radiology called to notify that CT imaging shows anterior gastric perforation, air in fluid collection in pancreatic head and neck, embolization coils close to the pancreatic head. Patient with ischemia in gastric wall which is likely what led to the perforation. Spoke with [facility] general surgeon in [place] regarding patient who requested that patient be transferred to [place]. Spoke with Dr. Hernandez (general surgery) at [place] and patient accepted for ER to ER evaluation . Problems Addressed: Anemia, unspecified type: acute illness or injury Gastric perforation: acute illness or injury Amount and/or Complexity of Data Reviewed Labs: ordered. Radiology: ordered. Risk Prescription drug management. Moira Cruz MD 05/30/24 0149 [facility] 2024-05-20 16:03:55 Called Mr. Hernandez and spoke with and patient regarding medications including dosing of pantoprazole to twice per day. Family states they were aware of this. Notified family that I sent a new prescription to the pharmacy to mimic this and that he will be taking pantoprazole twice per day for 3 months total. Family reported understanding and were able to relay the instructions back to me. Dulce Maria Mccann DO Internal Medicine, PGY-3 [facility] 2024-05-19 16:14:22 Yellow cab voucher given. Called and set up pending patient to leave the floor once cab is downstairs. [facility] Radha Rawls RN [facility] 2024-05-19 15:24:34 Pt awake, alert and oriented at the time of discharge. Pt spouse at bedside. IV removed, all personal belongings are with the patient. Pt understands his follow up appointment and RX at the pharmacy. Pt aware of all medications that need to be taken today. Spouse at bedside understand instructions as well. [facility] 2024-05-19 13:31:16 CURRENTLY HOSPITALIZED. UNABLE TO FILL MEDICATION AT THIS TIME. Received refill request for: Requested Prescriptions Pending Prescriptions Disp Refills FUROSEMIDE 40 mg tablet [Pharmacy Med Name: Furosemide 40 MG Oral Tablet] 120 tablet 0 Sig: TAKE 2 TABLETS BY MOUTH IN THE MORNING , THEN TAKE 2 TABLETS IN THE EVENING JANIYA: 01/22/23-Dr. Gardner NOV : Not Scheduled. Pharmacy: [facility] [address] [address] [facility] Nancy Cox MA [facility] 2024-05-19 13:19:22 HEMODIALYSIS NURSING NOTE Number Hours: 4.0 hours Bath: 2K 3 Calcium (standard dialysate) Heparin: zero Access: right Catheter permanent subclavian Net UF: 2.0 L Weight: pre 76.9 kg, post 74.9 kg (standing scale) Post HD: BP 126/63 Pulse 95 Antibiotics/Medications Given: None Complications/Events of Treatment: Pt HD catheter clean, no signs of infection, & dressing intact. Both cath ports able to aspirate & flush briskly. Treatment completed. Blood returned. Cath access packed w/ Heparin, clamped & capped. Pt's vital signs stable and left HD unit without distress. Handoff report: Completed HD treatment sheet and attached it to the patients chart. Completed and given via phone to CATHY Garcia Mode of Transport Back to Unit: bed and accompanied by transporter See hemodialysis flowsheet for further details of the treatment. [facility] 2024-05-19 09:46:00 Problem: Procedure Routine Goal: Knowledge of procedure Outcome: Progressing as expected Hemodialysis Plan of care reviewed r/t treatment time, UF goal, dry wgt and fluid restrictions. Also reviewed care of dialysis access during tx. Pt updated during tx as needed with teaching done. Also reviewed possible side effects of HD tx, such as s/s of hypotension, cramping (during tx and at rare times after tx), n/v, CP or any other concerns. Patient acknowledge understanding of treatment plan. [facility] 2024-05-19 09:20:23 Problem: Falls, Risk of Goal: Absence of falls Outcome: Progressing as expected Problem: Discharge Planning Goal: Adequate for discharge Outcome: Progressing as expected Problem: Bleeding, Risk of Goal: Absence of impaired coagulation signs and symptoms Outcome: Progressing as expected Goal: Absence of active bleeding Outcome: Progressing as expected Problem: Infection Risk Goal: Absence of infection Outcome: Progressing as expected Problem: Skin integrity Impaired (Risk or Actual) Goal: Wound healing Outcome: Progressing as expected Goal: Prevention of new skin breakdown Outcome: Progressing as expected Problem: Glucose control Goal: Glucose level within specified parameters Outcome: Progressing as expected [facility] 2024-05-18 23:32:46 Problem: Falls, Risk of Goal: Absence of falls 05/18/2024 233 by Iliana Flores RN Outcome: Progressing as expected 05/18/2024 233 by Iliana Flores RN Outcome: Progressing as expected Problem: Discharge Planning Goal: Adequate for discharge 05/18/2024 233 by Iliana Flores RN Outcome: Progressing as expected 05/18/2024 233 by Iliana Flores RN Outcome: Progressing as expected Problem: Bleeding, Risk of Goal: Absence of impaired coagulation signs and symptoms 05/18/2024 233 by Iliana Flores RN Outcome: Progressing as expected 05/18/2024 2330 by Iliana Flores RN Outcome: Progressing as expected Goal: Absence of active bleeding 05/18/20242331 by Iliana Flores RN Outcome: Progressing as expected 05/18/2024 233 by Iliana Flores RN Outcome: Progressing as expected Problem: Infection Risk Goal: Absence of infection 05/18/20242331 by Iliana Flores RN Outcome: Progressing as expected 05/18/2024 2330 by Iliana Flores RN Outcome: Progressing as expected Problem: Skin integrity Impaired (Risk or Actual) Goal: Wound healing 05/18/2024 2332 by Iliana Flores RN Outcome: Progressing as expected 05/18/2024 2330 by Iliana Flores RN Outcome: Progressing as expected Goal: Prevention of new skin breakdown 05/18/2024 233 by Iliana Flores RN Outcome: Progressing as expected 05/18/2024 233 by Iliana Flores RN Outcome: Progressing as expected Problem: Glucose control Goal: Glucose level within specified parameters Outcome: Progressing as expected [facility] Iliana Flores RN [facility] 2024-05-18 23:30:19 Problem: Falls, Risk of Goal: Absence of falls Outcome: Progressing as expected Problem: Discharge Planning Goal: Adequate for discharge Outcome: Progressing as expected Problem: Bleeding, Risk of Goal: Absence of impaired coagulation signs and symptoms Outcome: Progressing as expected Goal: Absence of active bleeding Outcome: Progressing as expected Problem: Infection Risk Goal: Absence of infection Outcome: Progressing as expected Problem: Skin integrity Impaired (Risk or Actual) Goal: Wound healing Outcome: Progressing as expected Goal: Prevention of new skin breakdown Outcome: Progressing as expected [facility] 2024-05-18 07:19:38 Problem: Falls, Risk of Goal: Absence of falls Outcome: Progressing as expected Problem: Procedure Routine Goal: Knowledge of procedure Outcome: Progressing as expected Problem: Discharge Planning Goal: Adequate for discharge Outcome: Progressing as expected Problem: Bleeding, Risk of Goal: Absence of impaired coagulation signs and symptoms Outcome: Progressing as expected Goal: Absence of active bleeding Outcome: Progressing as expected Problem: Infection Risk Goal: Absence of infection Outcome: Progressing as expected Problem: Skin integrity Impaired (Risk or Actual) Goal: Wound healing Outcome: Progressing as expected Goal: Prevention of new skin breakdown Outcome: Progressing as expected IDA Isaac RN [facility] 2024-05-16 23:32:12 Problem: Falls, Risk of Goal: Absence of falls Outcome: Progressing as expected Problem: Procedure Routine Goal: Knowledge of procedure Outcome: Progressing as expected Problem: Discharge Planning Goal: Adequate for discharge Outcome: Progressing as expected Problem: Bleeding, Risk of Goal: Absence of impaired coagulation signs and symptoms Outcome: Progressing as expected Goal: Absence of active bleeding Outcome: Progressing as expected Problem: Infection Risk Goal: Absence of infection Outcome: Progressing as expected Problem: Skin integrity Impaired (Risk or Actual) Goal: Wound healing Outcome: Progressing as expected Goal: Prevention of new skin breakdown Outcome: Progressing as expected IDA Pemberton RN [facility] 2024-05-16 21:21:45 HEMODIALYSIS NURSING NOTE Number Hours: 3.0 hours Bath: 2K 3 Calcium (standard dialysate) Heparin: zero -- NS flushes used as needed Access: right Catheter permanent IJ Net UF: 0 ml -- as ordered Weight: ALTAGRACIA -- floor bed -- ?? -- showed 10 kg more then 05/15/24 Post BP 127/57 Post Pulse 78 Antibiotics/Medications Given: Epogen 7,000 units IV Complications/Events of Treatment: Patient tolerated his treatment well. No complications noted during HD. Patient left the unit post HD without complaints nor distress. Handoff report completed and attached to Patient Chart Mode of Transport Back to Unit: bed, oxygen, and accompanied by transporter See hemodialysis flowsheet for details of treatment. IDA Hogan RN [facility] 2024-05-16 16:00:00 Hemodialysis Plan of care reviewed r/t treatment time, UF goal. I reviewed care of dialysis perm cath during tx. Pt updated during tx as needed. I reviewed possible side effects of HD tx, such as s/s of hypotension, weakness, dizziness, H/A, cramping (during tx and at rare times after tx), n/v, vision changes, CP or any other concerns. Patient acknowledge understanding of treatment plan. [facility] 2024-05-16 13:06:44 Hospital Course Mr. Hernandez is a 63ym w/ PMH HFrEF (ICM, EF 20-25%, s/p ICD), CAD (hx LA, s/p CABG x3 2014, PCI 2013), ESRD (HD MWF), IDDM2, HTN, HLD. He was recently hospitalized 05/06-05/12 for 3 weeks of SOB; he was found to have a large left-sided pleural effusion and underwent thoracentesis with removal of 1800cc. During the hospitalization he also underwent AVF creation (RUE), permacath placement, and hemodialysis initiation; the procedures were complicated by a small left-sided apical pneumothorax (managed conservatively) and mild hypotension requiring a brief stay in the ICU for monitoring. The day after discharge (05/13) he noticed dark stool with bright red blood associated with dizziness; he presented to the [facility] ED, CTA showed a duodenal GIB, he was life flighted to [place] for IR intervention, and was admitted to the MICU. He received 4u pRBCs and underwent embolization and coiling of the gastroduodenal artery on 05/14. [facility] 2024-05-16 00:54:17 Problem: Falls, Risk of Goal: Absence of falls Outcome: Progressing as expected Problem: Procedure Routine Goal: Knowledge of procedure Outcome: Progressing as expected Problem: Discharge Planning Goal: Adequate for discharge Outcome: Progressing as expected Problem: Bleeding, Risk of Goal: Absence of impaired coagulation signs and symptoms Outcome: Progressing as expected Goal: Absence of active bleeding Outcome: Progressing as expected Problem: Infection Risk Goal: Absence of infection Outcome: Progressing as expected Problem: Skin integrity Impaired (Risk or Actual) Goal: Wound healing Outcome: Progressing as expected Goal: Prevention of new skin breakdown Outcome: Progressing as expected [facility] 2024-05-15 00:05:00 HEMODIALYSIS NURSING NOTE Number Hours: 3.0 hours Bath: 2K 3 Calcium (standard dialysate) Heparin: none Access: right Catheter permanent subclavian Net UF: NO UF Weight: pre 73.9 kg, post 73.9 kg Post BP 126/49 Post Pulse 74 Antibiotics/Medications Given: Epogen 8000 units IV Complications/Events of Treatment: Well tolerated HD. HD access working well during HD, no issues.With Permanent catheter clean and dry, dressed aseptically. No complication. Heparin lock done as per ordered, covered aseptically. Alert ,awake not in distress, denies any complaint when left the unit, call sanford within reach. Verbal report given to RN Tracee Mode of Transport Back to Unit: NA - patient done at bedside at [place] [address] ICU See hemodialysis flowsheet for details of treatment. IDA Zendejas RN [facility] 2024-05-14 20:48:24 Hemodialysis: consent verification, pt identified by name & [facility] number by 2 staff members, call light in reach. Education: HD UF time & goal, s/s to report to healthcare team during and post treatment: Nausea/vomiting, muscle cramping, headache, low blood pressure, weakness, dizziness, blurred vision, bleeding access and other concerns. [facility] 2024-05-14 20:46:57 Problem: Procedure Routine Goal: Knowledge of procedure Outcome: Progressing as expected Hemodialysis Plan of care reviewed r/t treatment time, UF goal, dry wgt and fluid restrictions. Also reviewed care of dialysis access during tx. Pt updated during tx as needed with teaching done. Also reviewed possible side effects of HD tx, such as s/s of hypotension, cramping (during tx and at rare times after tx), n/v, CP or any other concerns. Patient acknowledge understanding of treatment plan. CONSULTANT [facility] 2024-05-14 18:36:41 Problem: Falls, Risk of Goal: Absence of falls Outcome: Progressing as expected CONSULTANT [facility] 2024-05-14 08:11:47 TRANSITIONAL CARE MANAGEMENT ASSESSMENT 05/14/2024 Srinivasa Hernandez [id number] Srinivasa Hernandez is a 63 year old /White male was admitted on 05/06/24 to [facility] ICU. He was discharged on 05/12/24 with discharge disposition of HR- Routine Discharge. Admitting Physician: Pb Tavarez Discharge Diagnosis: Principal Diagnosis: Shortness of breath No linked episodes TCM [id number] outreach documentation: Discharge Assessment Chart Assessed: 05/14/24 Chart Reviewed - Post Discharge Call Deferred due to Change in Discharge Status.: (Pt is currently admitted to [facility] TCM Outreach Completed: 05/14/24 Future Appointments: IDA Ordonez RN [facility] 2024-05-14 04:20:18 Problem: Falls, Risk of Goal: Absence of falls Outcome: Progressing as expected IDA Corona RN [facility] 2024-05-13 23:40:00 Pt. Transferred via life flight; 2 RNs at life flight crew IDA Mckeon RN [facility] 2024-05-13 23:05:28 PHI ETA 14 mins (2422) CONSULTANT Miri Evans RN [facility] 2024-05-13 22:42:54 Called report to CATHY Easley to [facility] 2024-05-13 22:27:43 PHI ETA 1hr-1hr and20 mins ([id number]) [facility] 2024-05-13 21:56:22 [facility] canceled, Dr. Gross states pt going to [place] via PHI [facility] 2024-05-13 20:27:24 CT called by CATHY Gonzales [facility] 2024-05-13 19:55:[address] Gross at bedside [facility] 2024-05-13 19:35:21 Pt. Vomited mild x1; negative for blood [facility] 2024-05-13 18:21:52 Patient reports noticing dark stool this morning with some bright red blood in it. States he doesn't have history of rectal bleeding. States has a little nausea and headache and felt a little dizzy while coming here. Just released from here yesterday, does dialysis M/W/F, did it Sunday here through permacath. Can't use right arm. CONSULTANT Chilo Cintron RN [facility] 2024-05-13 18:16:00 EMERGENCY DEPARTMENT ENCOUNTER [facility] Patient Name: Srinivasa Hernandez Date of : 1960 63 year old [facility] Primary Care Physician: Sonia Dubon Pre- Hospital Patient Escorted by: Family [5] Mode of Arrival: Personal means [1] EMS Treatment Prior to ED Arrival: [facility] treatment: None ED Events Date/Time Event User Comments 05/13/241818 Medical Screening Begins TIEN GROSS MD -- 05/13/241818 First Provider Evaluation TIEN GROSS MD -- Chief Complaint Chief Complaint Patient presents with BLOOD IN STOOL ED Triage Notes Chilo Cintron RN 05/13/2024 18:23 Patient reports noticing dark stool this morning with some bright red blood in it. States he doesn't have history of rectal bleeding. States has a little nausea and headache and felt a little dizzy while coming here. Just released from here yesterday, does dialysis M/W/F, did it Sunday here through [facility]. Can't use right arm. HPI History provided by: Patient Rectal Bleeding Quality: Bright red Amount: Moderate Duration: 1 day Timing: Constant Context: spontaneously Similar prior episodes: no Relieved by: Nothing Worsened by: Nothing Associated symptoms: no abdominal pain, no dizziness, no fever, no light-headedness and no vomiting Risk factors: anticoagulant use Risk factors comment: Aspirin and plavix Past Medical History / Immunizations Past Medical History: Diagnosis Date CHF (congestive heart failure) Chronic kidney disease Coronary artery disease involving [place] coronary artery without angina pectoris 11/23/2015 Essential hypertension 06/15/2014 ICD10 Diagnosis 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 Gout Ischemic cardiomyopathy 06/15/2014 EF 20% per pt 10/04, 15-20% 11/2015 LA (myocardial infarction) Pacemaker S/P CABG x 3 Type 2 diabetes mellitus without complication 11/23/2015 Tetanus received in last 5 years: Unknown Childhood immunizations: Up-to-date Past Surgical History Past Surgical History: Procedure Laterality Date CABG, ARTERIAL, THREE 03/2015 [place] [employer] IMPLANTABLE CARDIOVERTER DEFIBRILLATOR PLACEMENT 08/2016 PACEMAKERS INSERTION 08/2016 PERMACATH PLACEMENT Right 05/09/2024 Surgeon: Asad Morgan MD; Location: [facility] OR [facility] PTCA W/POSSIBLE STENT 09/2013 [facility] PTFE GRAFT INSERTION Right 05/09/2024 Surgeon: Asad Morgan MD; Location: [facility] OR [facility] Allergies No Known Allergies Social History Tobacco Use Some Days; Cigarettes: Started 04/23/1990; Last attempted to quit 04/23/2015; Smoked an average of 1.5 packs/day for 25.0 years Smokeless Tobacco: Never used smokeless tobacco. Comments: Trying to quit Alcohol Use Yes; 0.0 standard drinks of alcohol per week; 0 Standard drinks or equivalent. Comments: once a month Sexual Activity Not currently sexually active; Partners: Female; Control/Protection: None. Review of Systems Review of Systems Constitutional: Negative. Negative for chills, fatigue, fever and unexpected weight change. HENT: Negative. Eyes: Negative. Negative for discharge and itching. Respiratory: Negative. Negative for cough, chest tightness, shortness of breath and wheezing. Cardiovascular: Negative. Negative for chest pain and palpitations. Gastrointestinal: Positive for blood in stool. Negative for abdominal distention, abdominal pain, nausea and vomiting. Genitourinary: Negative. Negative for dysuria, urgency, frequency and flank pain. Musculoskeletal: Negative. Skin: Negative. Negative for color change, pallor and wound. Neurological: Negative. Negative for dizziness, syncope, light-headedness and headaches. Psychiatric/Behavioral: Negative. Negative for agitation and behavioral problems. All other systems reviewed and are negative. Endocrine: Endocrine negative Physical Exam ED Triage Vitals Weight 05/13/241818 69.9 kg (154 lb) Actual or estimated -- Height 05/13/241818 1.753 m (5' 9") BP 05/13/241818 93/51 Pulse 05/13/24 1819 74 Resp 05/13/241818 20 Temp 05/13/241818 36.7 ?C (98 ?F) Temp source 05/13/242127 Oral SpO2 05/13/241818 100 % Measured on -- Physical Exam Vitals reviewed. Constitutional: Appearance: He is well-developed. HENT: Head: Normocephalic and atraumatic. Eyes: Conjunctiva/sclera: Conjunctivae normal. Cardiovascular: Rate and Rhythm: Normal rate and regular rhythm. Heart sounds: Normal heart sounds. Pulmonary: Effort: Pulmonary effort is normal. No respiratory distress. Breath sounds: Normal breath sounds. No stridor. No wheezing or rales. Abdominal: General: Bowel sounds are normal. There is no distension. Palpations: Abdomen is soft. Tenderness: There is no abdominal tenderness. There is no guarding or rebound. Musculoskeletal: General: Normal range of motion. Skin: General: Skin is warm and dry. Neurological: Mental Status: He is alert and oriented to person, place, and time. Cranial Nerves: No cranial nerve deficit. Sensory: No sensory deficit. Psychiatric: Behavior: Behavior normal. Labs Lab Results CBC WITH DIFF - Abnormal Result Value Ref Range WBC 10.08 4.20 - 10.70 10*3/?L RBC 2.21 (*) 4.26 - 5.52 10*6/?L HGB 7.0 (*) 12.2 - 16.4 g/dL HCT 21.9 (*) 38.4 - 49.3 % MCV 99.1 (*) 81.7 - 95.6 fL MCH 31.7 26.1 - 32.7 pg MCHC 32.0 31.2 - 35.0 g/dL RDW-SD 48.8 38.5 - 51.6 fL RDW-CV 13.7 12.1 - 15.4 % PLT 271 150 - 328 10*3/?L MPV 11.4 9.8 - 13.0 fL NRBC/100 WBC 0.0 0.0 - 10.0 /100 WBCs NRBC x10 3 <0.01 10*3/?L GRAN MAT (NEUT) % 78.0 % IMM GRAN % 0.40 % LYMPH % 8.4 % MONO % 10.8 % EOS % 2.0 % BASO % 0.4 % GRAN MAT x10 3 (ANC) 7.86 (*) 1.99 - 6.95 10*3/uL IMM GRAN x10 3 0.04 0.00 - 0.06 10*3/uL LYMPH x10 3 0.85 (*) 1.09 - 3.23 10*3/uL MONO x10 3 1.09 (*) 0.36 - 1.02 10*3/uL EOS x10 3 0.20 0.06 - 0.53 10*3/uL BASO x10 3 0.04 0.01 - 0.09 10*3/uL COMP. METABOLIC PANEL (84044) - Abnormal NA 136 135 - 145 mmol/L K 5.2 (*) 3.5 - 5.0 mmol/L CL 99 98 - 108 mmol/L CO2 TOTAL 27 23 - 31 mmol/L AGAP 10 2 - 16 BUN 88 (*) 7 - 23 mg/dL GLUCOSE 163 (*) 70 - 110 mg/dL CREATININE 5.39 (*) 0.60 - 1.25 mg/dL TOTAL BILI 0.7 0.1 - 1.1 mg/dL CALCIUM 8.2 (*) 8.6 - 10.6 mg/dL T PROTEIN 6.8 6.3 - 8.2 g/dL ALBUMIN 3.5 3.5 - 5.0 g/dL ALK PHOS 128 (*) 34 - 122 U/L ALTv 56 (*) 5 - 50 U/L AST(SGOT) 107 (*) 13 - 40 U/L eGFR 11.3 mL/min/1.73m2 TROPONIN I - Abnormal TROPONIN I 0.078 (*) <=0.034 ng/mL PROTHROMBIN TIME / INR - Abnormal PROTIME PATIENT 15.5 (*) 10.1 - 12.6 Seconds INR 1.3 ACTIVATED PARTIAL THRMPLAS MATILDE - Abnormal APTT Patient 41 (*) 26 - 36 Seconds LACTIC ACID WHOLE BLOOD - Abnormal LACTIC ACID 2.61 (*) 0.50 - 2.20 mmol/L LIPASE - Normal LIPASE 50 0 - 220 U/L LACTIC ACID WHOLE BLOOD - Normal LACTIC ACID 2.14 0.50 - 2.20 mmol/L TYPE AND SCREEN ABO & RH O POSITIVE IAT Negative ABORH CONFIRMATION (LAB ONLY) ABO & RH O Positive FIBRINOGEN PREPARE PACKED RBC Cross Match Result Compatible ISBT Blood Type Code 5100 Unit Blood Type O Pos Unit Number [id number] Blood Expiration Date & Time [id number] Status Information Issued Product Identification Red Blood Cells Product Code [id number] Imaging CT Angiogram abdomen/pelvis Preliminary Result EXAM: CT ANGIOGRAM ABDOMEN/PELVIS HISTORY: 63-year-old male with history of ESRD on hemodialysis MWF presenting with one day history of dark stools. The current examination was ordered to assess for active gastrointestinal bleeding. TECHNIQUE: Contiguous axial imaging from the level of the lung bases through the proximal thighs was performed with and without intravenous contrast. Coronal and sagittal reconstructions were obtained. COMPARISON: Prior CT abdomen and pelvis obtained on 02/11/2018 FINDINGS: VESSELS: Active contrast extravasation noted at the level of the proximal duodenal segments corresponding to the territory of the gastroduodenal artery (11:48, 17:48). Mild aortoiliac atherosclerotic disease is present; no critical stenosis noted at any level or within the visceral branch vessels. A prominent focus of soft plaque is noted in the proximal left common iliac artery. No aneurysmal dilation. The visualized extent of the portal and systemic venous vasculature are patent. LOWER THORAX: Large left and small right pleural effusions are present with adjacent relaxation atelectasis. Mild cardiomegaly. Partially profiled AICD lead courses into the heart and terminates within the right ventricle. LIVER: The liver is normal in size and contour. No focal hepatic lesion is seen. The hepatic veins and portal veins are patent. GALLBLADDER AND BILIARY TREE: The gallbladder appears contracted. Trace volume pericholecystic fluid likely related to fluid overload state. No radiopaque gallstones. No intrahepatic or extrahepatic biliary ductal dilation. SPLEEN: The spleen is normal in size. PANCREAS: No ductal dilation or masses. ADRENAL GLANDS: No adrenal nodules. KIDNEYS: No hydronephrosis, stones or suspicious masses. PELVIS/BLADDER: Circumferential urinary bladder wall thickening is present. The prostate is normal in size. GI TRACT: Contrast extravasation noted at the level of the the proximal duodenum as noted above. Marked distention of the stomach with multiple loops of fluid-filled bowel. No bowel dilation or wall thickening. Normal appendix. PERITONEUM AND RETROPERITONEUM: Mild diffuse mesenteric edema likely corresponding to fluid overload state. No free air. LYMPH NODES: No lymphadenopathy. BONES AND SOFT TISSUES: No suspicious lytic or sclerotic bony lesions are present. Mild multilevel spondylotic changes manifested by marginal osteophytes, facet arthrosis and endplate sclerosis. IMPRESSION Contrast extravasation with pooling in the proximal duodenum corresponding to active GI bleed in the territory of the gastroduodenal artery (11:48, 17:48). Multiple findings suggestive of fluid overload state including: Large left and small right pleural effusions, trace pericholecystic fluid and mesenteric edema. Mild cardiomegaly. Mild aortoiliac atherosclerotic disease without critical stenosis. Nonspecific circumferential urinary bladder wall thickening. These findings were discussed with the emergency room physician, Dr. Gross on 05/13/2024 at 9:09 PM. Preliminary Report Dictated by Resident: Murali Ngo Orders and Treatments Orders Placed This Encounter Procedures Critical Care CT Angiogram abdomen/pelvis IR Other CBC WITH DIFF COMP. METABOLIC PANEL (70170) LIPASE TROPONIN I Lactic Acid Whole Blood Lactic Acid Whole Blood PROTHROMBIN TIME / INR ACTIVATED PARTIAL THRMPLAS MATILDE Type and Screen - ONCE Routine ABORH Confirmation (Lab Only) Transfusion Reaction Investigation Urinalysis (Spun) Lactic Acid Whole Blood Fibrinogen Orders Placed This Encounter Medications ondansetron (ZOFRAN (PF)) injection 4 mg iopamidol (ISOVUE 370-500 mL) injection 80 mL pantoprazole (PROTONIX) injection 80 mg pantoprazole (PROTONIX) 80 mg in NaCl 0.9% (NS) 500 mL infusion ferrous sulfate 325 mg (65 mg iron) EC tablet Procedures EKG Time 0735 Rate 77 Normal sinus Left axis deviation Intervals normal Abnormal EKG MDM Patient was evaluated for an emergency medical condition related to BLOOD IN STOOL Diagnoses considered but not limited to: Malignancy Polyps Diverticulosis Labs:were ordered, and resulted, any relevant abnormalities were considered. Abnormal Labs Reviewed CBC WITH DIFF - Abnormal; Notable for the following components: Result Value RBC 2.21 (*) HGB 7.0 (*) HCT 21.9 (*) MCV 99.1 (*) GRAN MAT x10 3 (ANC) 7.86 (*) LYMPH x10 3 0.85 (*) MONO x10 3 1.09 (*) All other components within normal limits COMP. METABOLIC PANEL (92652) - Abnormal; Notable for the following components: K 5.2 (*) BUN 88 (*) GLUCOSE 163 (*) CREATININE 5.39 (*) CALCIUM 8.2 (*) ALK PHOS 128 (*) ALTv 56 (*) AST(SGOT) 107 (*) All other components within normal limits TROPONIN I - Abnormal; Notable for the following components: TROPONIN I 0.078 (*) All other components within normal limits Narrative: Reference (Normal) Range (defined by the 99th percentile reference limit): <= 0.034 ng/mL Note: Cardiac troponin begins to rise 3-4 hours after the onset of ischemia. Repeat in 4-6 hours if the sample was drawn within 3-4 hours of the onset of the symptom and found normal. Diagnosis of myocardial injury is made with acute changes in cTn concentrations with at least one serial sample above the 99th percentile upper reference limit (URL), taken together with the patient's clinical presentation. Biotin has been reported to cause a negative bias, interpret results relative to patient's use of biotin. PROTHROMBIN TIME / INR - Abnormal; Notable for the following components: PROTIME PATIENT 15.5 (*) All other components within normal limits ACTIVATED PARTIAL THRMPLAS MATILDE - Abnormal; Notable for the following components: APTT Patient 41 (*) All other components within normal limits Narrative: The [facility] patient population mean normal value for aPTT is 30 seconds. LACTIC ACID WHOLE BLOOD - Abnormal; Notable for the following components: LACTIC ACID 2.61 (*) All other components within normal limits Imaging:This is a teaching institution and preliminary studies are read by physicians in training. A final read by a radiologist will be confirmatory of preliminary studies or may include addenda. A reasonable attempt will be made to contact the patient or family to communicate findings if necessary. ED Course as of 05/13/242312May 13, [id number] Dr. Gibson accepted the patient [DN] 2024 Dr. Vazquez VAZQUEZ notified by phone spoke to him directly [DN] 2010 Transfer initiated [DN] ED Course User Index [DN] Tien Gross MD Diagnosis/Impression as of 05/13/242312 Blood in stool Elevated troponin Lower GI bleed Acute duodenal ulcer with bleeding Medical Decision Making Problems Addressed: Acute duodenal ulcer with bleeding: acute illness or injury Blood in stool: acute illness or injury Elevated troponin: chronic illness or injury Lower GI bleed: acute illness or injury Amount and/or Complexity of Data Reviewed Labs: ordered. Decision-making details documented in ED Course. Radiology: ordered and independent interpretation performed. Decision-making details documented in ED Course. Risk Prescription drug management. Decision regarding hospitalization. Pulse Oximetry: is not hypoxic. Interpreted. Reassessment:stable Communication with python consultant: Dr. Andrew Gibson ICU Limitations to patient care and compliance: none. Plan & Summary: The patient is a 63-year-old male who presents for bright red blood per rectum. Imaging today demonstrates that he has an acute duodenal bleed. Hemoglobin is gone from 8.6-7 today. He was placed on Protonix bolus and drip. He was also given a unit of blood. Due to the IC conditions the patient cannot be transferred by ground. He will be flown to [place] to the MICU for IR and GI evaluation. Srinivasa Hernandez is a 63 year old male presenting for complaint(s) listed within the note.. Transferred for higher level of care. History, physical exam findings, results of visit, diagnosis, medication regimens and plan of future care have been considered. Additional MDM may be found in the ED course. Vital signs were rechecked before final disposition and determined to be expected for patient's clinical condition.. Disposition & Follow Up ED Disposition None Patient's Medications START taking these medications No medications on file CONTINUE taking these medications which have NOT CHANGED ACETAMINOPHEN (TYLENOL EXTRA STRENGTH) 500 MG TABLET Take 1 tablet by mouth every 6 (six) hours as needed for Pain. ALLOPURINOL 100 MG TABLET Take 1 tablet by mouth every Sunday, and Sunday in the evening for 30 days. ASPIRIN 81 MG CHEWABLE TABLET Take 1 tablet by mouth daily. ATORVASTATIN 80 MG TABLET TAKE 1 TABLET BY MOUTH ONCE DAILY BLOOD-GLUCOSE METER KIT Use TID, DX E11.9 (Brand upon insurance approval) CLOPIDOGREL 75 MG TABLET TAKE 1 TABLET BY MOUTH ONCE DAILY EZETIMIBE 10 MG TABLET Take 1 tablet by mouth in the morning. FERROUS SULFATE 325 MG (65 MG IRON) EC TABLET Take 1 tablet by mouth. FUROSEMIDE 40 MG TABLET Take 2 tablets by mouth every morning AND 2 tablets every evening. INSULIN NEEDLES, DISPOSABLE, (BD INSULIN PEN NEEDLE UF) 29 GAUGE X 1/2" NDLE USE DIRECTED WITH LUIS ANTONIO ONCE A DAY INSULIN NEEDLES, DISPOSABLE, 30 GAUGE X 5/16" NDLE Use as directed INSULIN SYRINGE-NEEDLE U-100 0.5 ML 31 GAUGE X 5/16 SYRG Inject insulin 2 times a day. Dx code E11.9. IPRATROPIUM 0.03 % NASAL SPRAY Use 2 Sprays in each nostril 3 (three) times daily. LANCETS (FREESTYLE LANCETS) 28 GAUGE MISC Use TID, DX E11.9 (Brand upon insurance approval) MAGNESIUM OXIDE 420 MG TAB Take 400 mg by mouth in the morning. NITROGLYCERIN (NITROSTAT) 0.[address] 1 tablet under the tongue every 5 (five) minutes as needed for Chest pain. PANTOPRAZOLE 40 MG EC TABLET Take 1 tablet by mouth in the morning. SACUBITRIL-VALSARTAN (ENTRESTO) 24-26 MG TABLET Take 1 tablet twice daily as long as SBP > 110 TRESIBA FLEXTOUCH U-100 100 UNIT/ML (3 ML) INPN INJECT 24 UNITS UNDER THE SKIN AT BEDTIME START taking Modified Medications as Prescribed No medications on file STOP taking these medications No medications on file Tien Gross Jr., MD Clinical Flap Curer [facility] Emergency Department [employer] Dictation Software is used frequently and may produce errors. Promptly contact for obvious discrepancies. Tien Gross MD 05/13/242314 [facility] 2024-05-13 18:16:00 Associated Order(s): Critical Care Critical Care Performed by: Tien rGoss MD Authorized by: Tien Gross MD Critical care provider statement: Critical care time was exclusive of: Separately billable procedures and treating other patients and teaching time Critical care was necessary to treat or prevent imminent or life-threatening deterioration of the following conditions: Circulatory failure Critical care was time spent personally by me on the following activities: Development of treatment plan with patient or surrogate, evaluation of patient's response to treatment, examination of patient, obtaining history from patient or surrogate, ordering and performing treatments and interventions, ordering and review of laboratory studies, ordering and review of radiographic studies, pulse oximetry, re-evaluation of patient's condition and review of old charts Care discussed with: admitting provider Comments: Due to a high probability of clinically significant, life threatening deterioration, the patient required my highest level of preparedness to intervene emergently and I personally spent this critical care time directly and personally managing the patient. This critical care time included obtaining a history; examining the patient; pulse oximetry; ordering and review of studies; arranging urgent treatment with development of a management plan; evaluation of patient's response to treatment; frequent reassessment; and, discussions with other providers. This critical care time was performed to assess and manage the high probability of imminent, life-threatening deterioration that could result in multi-organ failure. It was exclusive of separately billable procedures and treating other patients. [facility] 2024-05-12 13:30:00 Discharge instructions reviewed with pt and spouse. Discussed medications, follow ups and dialysis center info. No questions or concerns voiced at this time. IDA Shearer RN [facility] 2024-05-12 11:44:01 Problem: Falls, Risk of Goal: Absence of falls Outcome: Progressing as expected Problem: Pain Goal: Control of pain at or below patient's documented comfort goal Outcome: Progressing as expected Goal: Reduction in pain sensation Outcome: Progressing as expected Problem: Discharge Planning Goal: Adequate for discharge Outcome: Progressing as expected Goal: Effective communication Outcome: Progressing as expected Problem: Glucose control Goal: Glucose level within specified parameters Outcome: Progressing as expected Problem: Respiratory Function - Impaired Goal: Adequate oxygenation Outcome: Progressing as expected Goal: Adequate work of breathing Outcome: Progressing as expected Goal: Patent airway Outcome: Progressing as expected Problem: Procedure Routine Goal: Knowledge of procedure Outcome: Progressing as expected Problem: Venous Thromboembolism, (actual or risk of) Goal: Absence of venous thromboembolism (Risk) Outcome: Progressing as expected Problem: Fluid Volume - Imbalanced Goal: Absence of imbalanced fluid volume signs and symptoms Outcome: Progressing as expected [facility] 2024-05-12 11:41:13 HEMODIALYSIS NURSING NOTE Number Hours: 3.0 hours Bath: 2K 3 Ca (standard dialysate) Heparin: None Access: right Catheter permanent IJ Antibiotics/Medications Given: Flush Dialysis Circuit w/ 100mL of 0.9% NaCl (NS) - [id number] Retacrit 51289 units IV Complications/Events of Treatment: Pt completed HD tx w/o any issues or complications. Blood returned & cath access packed w/ Heparin then Clear Guard cath caps placed. Net UF: 1500 mL Weight: Pre HD weight - 71.5 kg. Post HD weight - 70.3 kg. Used bed scale. Post Dialysis Treatment: BP 124/56 Pulse 69 Handoff Report: Completed and given verbally at bedside to CATHY Hernandez Mode of Transport Back to Unit: Treatment performed at bedside. [facility] ICU 2107 See hemodialysis flowsheet for further details of the treatment. IDA Westfall RN [facility] 2024-05-12 08:12:32 Hemodialysis: consent verification, pt identified by name & [facility] number by 2 staff members, call light in reach. Education: HD UF time & goal, s/s to report to healthcare team during and post treatment: Nausea/vomiting Muscle cramping SOB Chest pain Headache Low blood pressure Weakness Dizziness Blurred vision Bleeding at access site [facility] 2024-05-12 05:50:44 Hemodynamically stable this shift. For hemodialysis this morning IDA Bryant RN [facility] 2024-05-11 16:07:48 Problem: Falls, Risk of Goal: Absence of falls Outcome: Progressing as expected Problem: Pain Goal: Control of pain at or below patient's documented comfort goal Outcome: Progressing as expected Goal: Reduction in pain sensation Outcome: Progressing as expected Problem: Discharge Planning Goal: Adequate for discharge Outcome: Progressing as expected Goal: Effective communication Outcome: Progressing as expected Problem: Glucose control Goal: Glucose level within specified parameters Outcome: Progressing as expected Problem: Respiratory Function - Impaired Goal: Adequate oxygenation Outcome: Progressing as expected Goal: Adequate work of breathing Outcome: Progressing as expected Goal: Patent airway Outcome: Progressing as expected Problem: Procedure Routine Goal: Knowledge of procedure Outcome: Progressing as expected Problem: Venous Thromboembolism, (actual or risk of) Goal: Absence of venous thromboembolism (Risk) Outcome: Progressing as expected Problem: Fluid Volume - Imbalanced Goal: Absence of imbalanced fluid volume signs and symptoms Outcome: Progressing as expected IDA Cheung RN [facility] 2024-05-10 15:35:10 Problem: Falls, Risk of Goal: Absence of falls Outcome: Progressing as expected Problem: Pain Goal: Control of pain at or below patient's documented comfort goal Outcome: Progressing as expected Goal: Reduction in pain sensation Outcome: Progressing as expected Problem: Discharge Planning Goal: Adequate for discharge Outcome: Progressing as expected Goal: Effective communication Outcome: Progressing as expected Problem: Glucose control Goal: Glucose level within specified parameters Outcome: Progressing as expected Problem: Respiratory Function - Impaired Goal: Adequate oxygenation Outcome: Progressing as expected Goal: Adequate work of breathing Outcome: Progressing as expected Goal: Patent airway Outcome: Progressing as expected Problem: Procedure Routine Goal: Knowledge of procedure Outcome: Progressing as expected Problem: Venous Thromboembolism, (actual or risk of) Goal: Absence of venous thromboembolism (Risk) Outcome: Progressing as expected Problem: Fluid Volume - Imbalanced Goal: Absence of imbalanced fluid volume signs and symptoms Outcome: Progressing as expected [facility] [employer] 2024-05-10 10:54:34 HEMODIALYSIS NURSING NOTE Number Hours: 2.0 hours Bath: 4K 3 Ca Heparin: None Access: right Catheter permanent IJ Antibiotics/Medications Given: Ferrric piggyback 125 mg IV infusion Complications/Events of Treatment: Pt has CÉSAR AVF creation recently, maturation period thrill(+), bruit(+). Dr Le rounded bedsite during dialysis. Pt completed HD tx w/o any issues or complications. Blood returned & cath access packed w/ Heparin then Clear Guard cath caps placed. Net UF: 500 mL Weight: Pre HD weight - 72.6 kg. Post HD weight - 72.2 kg. Used bed scale. Post Dialysis Treatment: BP 114/66 Pulse 77 Handoff Report: Completed and given verbally at bedside to CATHY Johnson Mode of Transport Back to Unit: Treatment performed at bedside. [facility] ICU 8 See hemodialysis flowsheet for further details of the treatment. HD new initiation 2nd day [facility] [employer] 2024-05-10 09:07:25 Hemodialysis: consent verification, pt identified by name & UH number by 2 staff members, call light in reach. Education: HD UF time & goal, s/s to report to healthcare team during and post treatment: Nausea/vomiting Muscle cramping SOB Chest pain Headache Low blood pressure Weakness Dizziness Blurred vision Bleeding at access site [facility] 2024-05-09 19:32:41 HEMODIALYSIS NURSING NOTE Number Hours: 2.0 hours (fist treatment) Bath: 3K 3 Calcium Heparin: zero Access: right AVG upper arm and Catheter permanent IJ Net UF: 0 Weight: pre 72.6 kg Post BP 97/51 Post Pulse 65 Antibiotics/Medications Given: None Complications/Events of Treatment: Started first HD treatment through right permanent catheter -- dressing dry, intact, with old blood clots on exit site but no active bleeding. Newly inserted today, lines cleared for use. Both lumen are patent and with good flow. Rounded by Dr. Alex, may decrease DFR to 100 since this is the patient's first treatment. BP in the 90s-100s during the whole treatment, patient is asymptomatic, conversational and denies complaints. No UF removal set up for this treatment. HD treatment completed and tolerated well without complications. HD catheter packed with heparin according to length of lumens. Left patient in room, vitals stable. No acute distress and denies complaints. Alert and oriented. Bed at lowest position, call light within reach, at bedside. Verbal report given to primary nurse CATHY Stanford Mode of Transport Back to Unit: NA - patient done at bedside See hemodialysis flowsheet for details of treatment. [facility] 2024-05-09 17:09:33 Hemodialysis Plan of care reviewed r/t treatment time & UF goal. Also reviewed possible side effects of HD tx, such as s/s of hypotension, cramping (during tx and at rare times after tx), N/V, CP or any other concerns. Patient acknowledge understanding of treatment plan. [facility] 2024-05-09 08:28:33 BRIEF OPERATIVE NOTE Date of Surgery: 05/09/2024 Surgeons and Role: * Asad Morgan MD - Primary * Rey Mukherjee MD - Resident - Assisting Pre-Op Diagnosis: Chronic kidney disease (CKD), active medical management without dialysis, stage 5 [N18.5] Post-Op Diagnosis Codes: * Chronic kidney disease (CKD), active medical management without dialysis, stage 5 [N18.5] Procedures: Procedure(s) (LRB): ARTERIOVENOUS FISTULA CREATION (Right) PERMACATH PLACEMENT (Right) CPT: 28437, CODINGHELP, Any Complications Encounters: None Estimated Blood Loss: 25 cc Specimens Removed: * No specimens in log * Implant Name Type Inv. Item Serial No. Compliance Vice President Lot No. LRB No. Used Action GRAFT GORE STRETCH 6MM X 40CM #[id number] - [id number] Graft GRAFT GORE STRETCH 6MM X 40CM #[id number] [employer] N/A Right 1 Implanted KIT CATHETER HMSPLT XK ARGD PLYURTHNE PTFE 360D STD STR 23 #[id number] - SN/A Dialysis Catheter KIT CATHETER HMSPLT XK ARGD PLYURTHNE PTFE 360D STD STR 23 #[id number] N/A BARD [employer] [id number] Right 1 Implanted Patient's Condition: Stable to PACU Findings: -RUE AV graft (brachio-axillary) placed with good thrill at the end of the case -Right IJ tunneled central venous catheter placed with fluoro confirmation Any other important information: -CXR in PACU for line clearance -Do not use AV graft for dialysis until cleared by vascular surgery -Renal diet Please see dictated operative report for additional detail. Rey Woods MD PGY- 2 General Surgery [facility] 2024-05-09 05:37:46 Problem: Falls, Risk of Goal: Absence of falls Outcome: Progressing as expected Problem: Pain Goal: Control of pain at or below patient's documented comfort goal Outcome: Progressing as expected Goal: Reduction in pain sensation Outcome: Progressing as expected Problem: Glucose control Goal: Glucose level within specified parameters Outcome: Progressing as expected CONSULTANT Amanda Napoles RN [facility] 2024-05-08 11:57:30 Problem: Falls, Risk of Goal: Absence of falls 05/08/2024 1157 by Michelle Prince RN Outcome: Progressing as expected 05/08/2024 1132 by Michelle Prince RN Outcome: Progressing as expected Problem: Pain Goal: Control of pain at or below patient's documented comfort goal 05/08/2024 1157 by Michelle Prince RN Outcome: Progressing as expected 05/08/2024 1132 by Michelle Prince RN Outcome: Progressing as expected Goal: Reduction in pain sensation 05/08/2024 1157 by Michelle Prince RN Outcome: Progressing as expected 05/08/2024 1132 by Michelle Prince RN Outcome: Progressing as expected Problem: Discharge Planning Goal: Adequate for discharge 05/08/2024 1157 by Michelle Prince RN Outcome: Progressing as expected 05/08/2024 1132 by Michelle Prince RN Outcome: Progressing as expected Goal: Effective communication 05/08/2024 1157 by Michelle Prince RN Outcome: Progressing as expected 05/08/2024 1132 by Michelle Prince RN Outcome: Progressing as expected Problem: Glucose control Goal: Glucose level within specified parameters 05/08/2024 1157 by Michelle Prince RN Outcome: Progressing as expected 05/08/2024 1132 by Michelle Prince RN Outcome: Progressing as expected Problem: Respiratory Function - Impaired Goal: Adequate oxygenation 05/08/2024 1157 by Michelle Prince RN Outcome: Progressing as expected 05/08/2024 1132 by Michelle Prince RN Outcome: Progressing as expected Goal: Adequate work of breathing 05/08/2024 1157 by Michelle Prince RN Outcome: Progressing as expected 05/08/2024 1132 by Michelle Prince RN Outcome: Progressing as expected Goal: Patent airway 05/08/2024 1157 by Michelle Prince RN Outcome: Progressing as expected 05/08/2024 1132 by Michelle Prince RN Outcome: Progressing as expected [facility] Michelle Prince RN [facility] 2024-05-08 11:32:31 Problem: Falls, Risk of Goal: Absence of falls Outcome: Progressing as expected Problem: Pain Goal: Control of pain at or below patient's documented comfort goal Outcome: Progressing as expected Goal: Reduction in pain sensation Outcome: Progressing as expected Problem: Discharge Planning Goal: Adequate for discharge Outcome: Progressing as expected Goal: Effective communication Outcome: Progressing as expected Problem: Respiratory Function - Impaired Goal: Adequate oxygenation Outcome: Progressing as expected Goal: Adequate work of breathing Outcome: Progressing as expected Goal: Patent airway Outcome: Progressing as expected [facility] 2024-05-08 04:35:08 Problem: Falls, Risk of Goal: Absence of falls Outcome: Progressing as expected Problem: Pain Goal: Control of pain at or below patient's documented comfort goal Outcome: Progressing as expected Goal: Reduction in pain sensation Outcome: Progressing as expected Problem: Glucose control Goal: Glucose level within specified parameters Outcome: Progressing as expected [facility] 2024-05-07 15:06:13 Problem: Falls, Risk of Goal: Absence of falls Outcome: Progressing as expected Problem: Pain Goal: Control of pain at or below patient's documented comfort goal Outcome: Progressing as expected Goal: Reduction in pain sensation Outcome: Progressing as expected Problem: Discharge Planning Goal: Adequate for discharge Outcome: Progressing as expected Goal: Effective communication Outcome: Progressing as expected Problem: Glucose control Goal: Glucose level within specified parameters Outcome: Progressing as expected Problem: Respiratory Function - Impaired Goal: Adequate oxygenation Outcome: Progressing as expected Goal: Adequate work of breathing Outcome: Progressing as expected Goal: Patent airway Outcome: Progressing as expected [facility] 2024-05-07 12:52:17 Images from the original note were not included. Pharmacy Recommendations for Patient Admission: Consider the following medication changes to continue the patient's home regimen (if clinically appropriate) Add sacubitril/valsartan 24-26 mg PO BID Add metoprolol succinate XL 50 mg PO QD Add allopurinol 100 mg PO QD Add magnesium oxide 400 mg PO QAM Add pantoprazole 40 mg PO QD Add ipratropium 0.03% nasal spray - 2 sprays in each nostril TID The [facility] medication list has been updated and reflected in the chart below. Please use the [facility] Med List for ordering home doses during admission. Patient Adherence: Systematically Non-Adherentto some medications. Source(s) used in interview: Patient, Outpatient Pharmacy, and Medical Records Interview limitations: None Medications Added Medications Removed Medications Modified None Glimepiride 1 mg Allopurinol 100 mg Tresiba Flextouch Allergies as of 05/06/2024 (No Known Allergies) Pharmacy Updated [facility] Med List Medication Sig sacubitriL-valsartan (ENTRESTO) 24-26 mg tablet Take 1 tablet by mouth in the morning and 1 tablet in the evening. HYDRALAZINE 25 mg tablet TAKE 1 TABLET BY MOUTH EVERY 8 HOURS (TAKE IT TOGETHER WITH ISOSORBIDE DINITRATE) ISOSORBIDE DINITRATE 20 mg tablet TAKE 1 TABLET BY MOUTH EVERY 8 HOURS (TAKE IT WITH HYDRALAZINE TABLETS) furosemide 40 mg tablet Take 2 tablets by mouth every morning AND 2 tablets every evening. metoprolol succinate XL 50 mg 24 hr tablet Take 1 tablet by mouth in the morning. TAKE 1 TABLET BY MOUTH ONCE DAILY allopurinoL 100 mg tablet Take 2 tablets by mouth in the morning. (Patient taking differently: Take 1 tablet by mouth in the morning.) Magnesium Oxide 420 mg Tab Take 400 mg by mouth in the morning. ezetimibe 10 mg tablet Take 1 tablet by mouth in the morning. pantoprazole 40 mg EC tablet Take 1 tablet by mouth in the morning. clopidogrel 75 mg tablet TAKE 1 TABLET BY MOUTH ONCE DAILY atorvastatin 80 mg tablet TAKE 1 TABLET BY MOUTH ONCE DAILY ipratropium 0.03 % nasal spray Use 2 Sprays in each nostril 3 (three) times daily. acetaminophen (TYLENOL EXTRA STRENGTH) 500 mg tablet Take 1 tablet by mouth every 6 (six) hours as needed for Pain. aspirin 81 mg chewable tablet Take 1 tablet by mouth daily. Outpatient Pharmacy Contact Information: [facility] [address] [place] [phone] Thank you for the opportunity to participate in the care of this patient. Carole Glover RPH 12:52 PM, 05/07/2024 [facility] Department of Pharmacy [facility] Phone: ADC: [phone] [facility] Carole Glover [facility] 2024-05-07 06:18:43 Problem: Falls, Risk of Goal: Absence of falls Outcome: Progressing as expected Problem: Pain Goal: Control of pain at or below patient's documented comfort goal Outcome: Progressing as expected Goal: Reduction in pain sensation Outcome: Progressing as expected Problem: Glucose control Goal: Glucose level within specified parameters Outcome: Progressing as expected [facility] 2024-05-06 20:08:00 Patient admitted to [facility] for diagnosis of SOB, CKD, pleural effusion, and hyperglycemia due to DM. Patient agrees to admission, discussed plan of care with patient and family. Patient is awake, A&Ox4, RR even and unlabored on RA. Color appropriate for race. PIV intact x1. No adverse reaction to medications administered while in ED. Belongings with patient to unit. IDA Richards RN [facility] 2024-05-06 17:40:10 CC: patient presents to the ER with complaints of shortness of breath that began 2-3 weeks [facility]. Patient states he is due to start dialysis but financially cannot begin treatment yet. Awake, alert, oriented, resp reg unlabored, skin warm and dry, color appropriate for race, moves all ext without difficulty, amb with minimal assistance. Appears in no distress. CONSULTANT Martha Watson RN [facility] 2024-05-06 17:25:00 Associated Order(s): EKG-12 Lead ROUTINE ONCE Pre-Procedure Diagnose(s): Shortness of breath Post-Procedure Diagnose(s): Shortness of breath [facility] Emergency Department Note Patient Name: Srinivasa Hernandez Date of : 1960 63 year old male Treatment Room: [place] [address] Primary Care Physician: Sonia Dubon Patient Escorted by: Family [5] Mode of Arrival: Personal means [1] EMS Treatment Prior to ED Arrival: [facility] treatment: Medication (comment) [facility] treatment comments: daily medications Travel and Exposure Screening: Symptoms Does patient have any of these symptoms?: (not recorded) Exposure Screening Has patient had contact with someone with a communicable disease in the last month?: (not recorded) Diseases exposed to:: (not recorded) Is Patient ?: (not recorded) Exposure Date: (not recorded) Chief Complaint: Chief Complaint Patient presents with Shortness of Breath History of Present Illness: History provided by: Patient Shortness of Breath Severity: Moderate Onset quality: Sudden Duration: 3 weeks Timing: Constant Progression: Worsening Chronicity: New Relieved by: Nothing Worsened by: Activity Ineffective treatments: Rest and sitting up Associated symptoms: no abdominal pain, no chest pain, no cough, no diaphoresis, no fever, no neck pain and no sore throat Past Medical History/Immunizations: Past Medical History: Diagnosis Date CHF (congestive heart failure) Chronic kidney disease Coronary artery disease involving [place] coronary artery without angina pectoris 11/23/2015 Essential hypertension 06/15/2014 ICD10 Diagnosis 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 Comments: Trying to quit Alcohol Use Yes; 0.0 standard drinks of alcohol per week; 0 Standard drinks or equivalent. Comments: once a month Sexual Activity Not currently sexually active; Partners: Female; Control/Protection: None. Past Surgical History: Past Surgical History: Procedure Laterality Date CABG, ARTERIAL, THREE 03/2015 [place] [employer] IMPLANTABLE CARDIOVERTER DEFIBRILLATOR PLACEMENT 08/2016 PACEMAKERS INSERTION 08/2016 PTCA W/POSSIBLE STENT 09/2013 [facility] Review of Systems: Review of Systems Constitutional: Positive for activity change. Negative for diaphoresis and fever. HENT: Negative for sore throat. Eyes: Negative for pain, discharge, redness and itching. Respiratory: Positive for shortness of breath. Negative for cough. Cardiovascular: Negative for chest pain and leg swelling. Gastrointestinal: Negative for abdominal pain. Genitourinary: Negative for urgency and difficulty urinating. Musculoskeletal: Negative for neck pain and neck stiffness. Physical Exam: ED Triage Vitals [05/06/24 1741] Weight 77.1 kg (170 lb) Actual or estimated Estimated by patient/family report Height 1.753 m (5' 9") BP (!) 159/87 Pulse 97 Resp 16 Temp 36.6 ?C (97.9 ?F) Temp source Oral SpO2 96 % Measured on Room air Physical Exam Vitals reviewed. Constitutional: General: He is not in acute distress. Appearance: Normal appearance. He is not ill-appearing, toxic-appearing or diaphoretic. HENT: Head: Normocephalic and atraumatic. Right Ear: Tympanic membrane, ear canal and external ear normal. There is no impacted cerumen. Left Ear: Tympanic membrane, ear canal and external ear normal. There is no impacted cerumen. Nose: Nose normal. No congestion or rhinorrhea. Mouth/Throat: Mouth: Mucous membranes are dry. Pharynx: Oropharynx is clear. Eyes: General: No scleral icterus. Right eye: No discharge. Left eye: No discharge. Extraocular Movements: Extraocular movements intact. Conjunctiva/sclera: Conjunctivae normal. Pupils: Pupils are equal, round, and reactive to light. Cardiovascular: Rate and Rhythm: Regular rhythm. Tachycardia present. Pulses: Normal pulses. Heart sounds: Normal heart sounds. No murmur heard. No friction rub. No gallop. Pulmonary: Effort: Pulmonary effort is normal. No respiratory distress. Breath sounds: Normal breath sounds. No stridor. No wheezing or rales. Chest: Chest wall: No tenderness. Abdominal: General: Bowel sounds are normal. There is no distension. Palpations: Abdomen is soft. There is no mass. Tenderness: There is no abdominal tenderness. There is no right CVA tenderness, left CVA tenderness or rebound. Musculoskeletal: General: No swelling, tenderness, deformity or signs of injury. Normal range of motion. Cervical back: Neck supple. No rigidity. Right lower leg: No edema. Left lower leg: No edema. Lymphadenopathy: Cervical: No cervical adenopathy. Skin: General: Skin is warm and dry. Capillary Refill: Capillary refill takes less than 2 seconds. Coloration: Skin is not pale. Findings: No erythema or rash. Neurological: General: No focal deficit present. Mental Status: He is alert and oriented to person, place, and time. Mental status is at baseline. Cranial Nerves: No cranial nerve deficit. Motor: No weakness. Coordination: Coordination normal. Psychiatric: Mood and Affect: Mood normal. Behavior: Behavior normal. Thought Content: Thought content normal. Judgment: Judgment normal. Radiology: XR Chest 1 vw Preliminary Result EXAM: XR CHEST 1 VW HISTORY: 63 years-old Male; dyspnea COMPARISON: CXR dated 01/30/2024 FINDINGS: Lines/Devices: Unchanged position of unipolar pacemaker projecting over the left chest wall with its lead projecting over the right ventricle. Lungs: The lung volumes are normal on the right and decreased on the left. Slight interval worsening of moderate-sized left pleural effusion with associated atelectasis. Right-sided patchy infrahilar opacities partially obscure the right heart border. Biapical pleural parenchymal scarring is seen. No pneumothorax. Heart/Mediastinum: The cardiomediastinal silhouette is partially obscured. Bones and soft tissues: No acute osseous findings are detected. Sternotomy wires appear intact and unchanged in position IMPRESSION Slight interval worsening of moderate-sized left pleural effusion with associated atelectasis. Right-sided patchy infrahilar opacities may represent aspiration or developing infection. Preliminary Report Dictated by Resident: David Salcido Lab Results: Lab Results CBC WITH DIFF - Abnormal Result Value Ref Range WBC 5.66 4.20 - 10.70 10*3/?L RBC 3.44 (*) 4.26 - 5.52 10*6/?L HGB 10.8 (*) 12.2 - 16.4 g/dL HCT 33.3 (*) 38.4 - 49.3 % MCV 96.8 (*) 81.7 - 95.6 fL MCH 31.4 26.1 - 32.7 pg MCHC 32.4 31.2 - 35.0 g/dL RDW-SD 47.1 38.5 - 51.6 fL RDW-CV 13.2 12.1 - 15.4 % PLT 202 150 - 328 10*3/?L MPV 11.6 9.8 - 13.0 fL NRBC/100 WBC 0.0 0.0 - 10.0 /100 WBCs NRBC x10 3 <0.01 10*3/?L GRAN MAT (NEUT) % 79.4 % IMM GRAN % 0.40 % LYMPH % 8.5 % MONO % 8.5 % EOS % 2.7 % BASO % 0.5 % GRAN MAT x10 3 (ANC) 4.50 1.99 - 6.95 10*3/uL IMM GRAN x10 3 <0.03 0.00 - 0.06 10*3/uL LYMPH x10 3 0.48 (*) 1.09 - 3.23 10*3/uL MONO x10 3 0.48 0.36 - 1.02 10*3/uL EOS x10 3 0.15 0.06 - 0.53 10*3/uL BASO x10 3 0.03 0.01 - 0.09 10*3/uL COMP. METABOLIC PANEL (38312) - Abnormal NA 141 135 - 145 mmol/L K 4.6 3.5 - 5.0 mmol/L CL 107 98 - 108 mmol/L CO2 TOTAL 24 23 - 31 mmol/L AGAP 10 2 - 16 BUN 72 (*) 7 - 23 mg/dL GLUCOSE 223 (*) 70 - 110 mg/dL CREATININE 4.11 (*) 0.60 - 1.25 mg/dL TOTAL BILI 0.7 0.1 - 1.1 mg/dL CALCIUM 9.5 8.6 - 10.6 mg/dL T PROTEIN 8.7 (*) 6.3 - 8.2 g/dL ALBUMIN 4.5 3.5 - 5.0 g/dL ALK PHOS 127 (*) 34 - 122 U/L ALTv 18 5 - 50 U/L AST(SGOT) 26 13 - 40 U/L eGFR 15.6 mL/min/1.73m2 N-TERMINAL PRO-BNP -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 - 1.1 mg/dL CALCIUM 8.3 (*) 8.6 - 10.6 mg/dL T PROTEIN 7.4 6.3 - 8.2 g/dL ALBUMIN 3.9 3.5 - 5.0 g/dL ALK PHOS 125 (*) 34 - 122 U/L ALTv 14 5 - 50 U/L AST(SGOT) 29 13 - 40 U/L eGFR 16.2 mL/min/1.73m2 N-TERMINAL PRO-BNP - Abnormal NT-proBNP 6,830 (*) <=125 pg/mL MAGNESIUM - Abnormal MAGNESIUM 1.6 (*) 1.7 - 2.4 mg/dL TROPONIN I - Normal TROPONIN I 0.014 <=0.034 ng/mL TROPONIN I EKG: If EKG completed, see Procedure Note. Orders and Treatments: Orders Placed This Encounter Procedures XR CHEST 1 VW CBC WITH DIFF COMP. METABOLIC PANEL (15400) TROPONIN I N-TERMINAL PRO-BNP Magnesium Troponin I Orders Placed This Encounter Medications aspirin chewable tablet 324 mg famotidine (PEPCID (PF)) injection 20 mg magnesium sulfate in water 2 gram/50 mL (4 %) infusion 2 g furosemide (LASIX) injection 40 mg First Provider Eval: ED Events Date/Time Event User Comments 01/30/24 1544 Medical Screening Begins JAKI DOWNS DO -- 01/30/24 1544 First Provider Evaluation JAKI DOWNS DO -- ED COURSE Diagnosis/Impression as of 01/30/24 1805 Chest pain, unspecified type Hypomagnesemia Procedures: EKG-12 Lead ROUTINE ONCE Date/Time: 01/30/2024 4:19 PM Performed by: Jaki Downs DO Authorized by: Jaki Downs DO ECG interpreted by ED Physician in the absence of a wire strander: yes Interpretation: Interpretation: normal Rate: ECG rate: 82 ECG rate assessment: normal Rhythm: Rhythm: sinus rhythm Ectopy: Ectopy: none QRS: QRS axis: Left QRS intervals: Wide QRS conduction: LBBB ST segments: ST segments: Normal T waves: T waves: normal Q waves: Abnormal Q-waves: not present MDM: Medical Decision Making The patient presents from home for evaluation for left-sided anterior chest wall pain that he has had since Sunday. It is Sunday. He reports the pain has waxed and waned in intensity but has never resolved. The pain does not radiate to his back, neck or jaw. No shortness of breath. No fevers or chills. No change in the pain with exertion or deep breathing. No medications tried for symptoms. He does have a history of high blood pressure, diabetes, congestive heart failure, coronary disease and is status post CABG in the past. He reports he has a follow-up appointment with cardiology for the of this month. He normally takes aspirin every day but ran out several days ago. No change in his pain with movement of his arms. Vital signs are stable in the ER. His heart is regular rhythm. His lungs are clear bilaterally. His EKG shows a normal sinus rhythm, no STEMI. The patient does have risk factors for ACS however his presentation is atypical for this. Will give aspirin here in the ER and check laboratory studies including a troponin. Will also obtain a chest x-ray. Final disposition pending 1802 -the patient is doing well here in the ER. His laboratory studies show a low magnesium level which was replaced here in the ER. His initial troponin is unremarkable. His chest x-ray shows slight pulmonary congestion and he was given a dose of IV Lasix here in the ER. His BNP is less than prior values. Will repeat his troponin and if it remains unremarkable plan for discharge home with outpatient follow-up with cardiology on February 06 as previously scheduled. Problems Addressed: Chest pain, unspecified type: acute illness or injury Hypomagnesemia: acute illness or injury Amount and/or Complexity of Data Reviewed Labs: ordered. Decision-making details documented in ED Course. Radiology: ordered and independent interpretation performed. Decision-making details documented in ED Course. ECG/medicine tests: ordered and independent interpretation performed. Decision-making details documented in ED Course. Risk OTC drugs. Prescription drug management. Flowsheet Documentation: Scoring Tools: No data recorded HEART Score: 3 Disposition/Condition: ED Disposition ED Disposition Disch - Home Condition Stable Comment -- Discharge Medications: Patient's Medications START taking these medications No medications on file CONTINUE taking these medications which have NOT CHANGED ACETAMINOPHEN (TYLENOL EXTRA STRENGTH) 500 MG TABLET Take 1 tablet by mouth every 6 (six) hours as needed for Pain. ALLOPURINOL 100 MG TABLET Take 2 tablets by mouth in the morning. ASPIRIN 81 MG CHEWABLE TABLET Take 1 tablet by mouth daily. ATORVASTATIN 80 MG TABLET TAKE 1 TABLET BY MOUTH ONCE DAILY BLOOD-GLUCOSE METER KIT Use TID, DX E11.9 (Brand upon insurance approval) CLOPIDOGREL 75 MG TABLET TAKE 1 TABLET BY MOUTH ONCE DAILY ENTRESTO 24-26 MG TABLET TAKE 1 TABLET BY MOUTH IN THE MORNING AND 1 IN THE EVENING EZETIMIBE 10 MG TABLET Take 1 tablet by mouth in the morning. FUROSEMIDE 40 MG TABLET Take 2 tablets by mouth every morning AND 2 tablets every evening. GLIMEPIRIDE 1 MG TABLET TAKE 1 TABLET BY MOUTH ONCE DAILY WITH BREAKFAST OR THE FIRST MEAL OF THE DAY HYDRALAZINE 25 MG TABLET TAKE 1 TABLET BY MOUTH EVERY 8 HOURS (TAKE IT TOGETHER WITH ISOSORBIDE DINITRATE) INSULIN NEEDLES, DISPOSABLE, (BD INSULIN PEN NEEDLE UF) 29 GAUGE X 1/2" NDLE USE DIRECTED WITH KWIKPEN ONCE A DAY INSULIN NEEDLES, DISPOSABLE, 30 GAUGE X 5/16" NDLE Use as directed INSULIN SYRINGE-NEEDLE U-100 0.5 ML 31 GAUGE X 5/16 SYRG Inject insulin 2 times a day. Dx code E11.9. IPRATROPIUM 0.03 % NASAL SPRAY Use 2 Sprays in each nostril 3 (three) times daily. ISOSORBIDE DINITRATE 20 MG TABLET TAKE 1 TABLET BY MOUTH EVERY 8 HOURS (TAKE IT WITH HYDRALAZINE TABLETS) LANCETS (FREESTYLE LANCETS) 28 GAUGE MISC Use TID, DX E11.9 (Brand upon insurance approval) MAGNESIUM OXIDE 420 MG TAB Take 400 mg by mouth in the morning. METOPROLOL SUCCINATE XL 50 MG 24 HR TABLET Take 1 tablet by mouth in the morning. TAKE 1 TABLET BY MOUTH ONCE DAILY NITROGLYCERIN (NITROSTAT) 0.[address] 1 tablet under the tongue every 5 (five) minutes as needed for Chest pain. PANTOPRAZOLE 40 MG EC TABLET Take 1 tablet by mouth in the morning. TRESIBA FLEXTOUCH U-100 100 UNIT/ML (3 ML) INPN INJECT 24 UNITS UNDER THE SKIN AT BEDTIME START taking Modified Medications as Prescribed No medications on file STOP taking these medications No medications on file Follow-up: Electronically signed by: Jaki Downs DO 01/30/241805 [facility] 2024-01-30 15:41:00 Srinivasa Hernandez is a 63 year old male signed out to me by Dr. Downs presenting with chest pain. Patient pending second troponin. If troponin negative anticipate discharge home. Repeat troponin of 0.014, same as initial troponin. Plan as above for discharge home with close cardiology follow up. Moira Cruz MD 01/30/242044 [employer] EMERGENCY PHYSICIAN STAFF [facility] 2024-01-21 13:25:02 Images from the original note were not included. Please advise on refills for Isosorbide & Hydralazine. Per protocol Creatinine is out of range. JANIYA: 01/22/23-Dr. 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/08/23 Labs: 12/13/23-BMP Received refill request for: Requested Prescriptions Pending Prescriptions Disp Refills ISOSORBIDE DINITRATE 20 mg tablet [Pharmacy Med Name: Isosorbide Dinitrate 20 MG Oral Tablet] 180 tablet 0 Sig: TAKE 1 TABLET BY MOUTH EVERY 8 HOURS (TAKE IT WITH HYDRALAZINE TABLETS) HYDRALAZINE 25 mg tablet [Pharmacy Med Name: hydrALAZINE HCl 25 MG Oral Tablet] 180 tablet 0 Sig: TAKE 1 TABLET BY MOUTH EVERY 8 HOURS (TAKE IT TOGETHER WITH ISOSORBIDE DINITRATE) Pharmacy: [facility] [address] [place] [id number] Nancy Cox MA [facility] 2023-12-13 08:15:00 Images from the original note were not included. Venipuncture collection performed by clean technique on the left anticubitus. Total of 1 attempts were made. Slight pressure and a bandage/dressing were applied to the site(s). The patient experienced no complications. The following specimens were processed according to instructions and sent to [facility] laboratories per lab order on 12/13/2023 : LT BLUE SST 1 RED LAV 1 PPT DK GREEN (LiHep) DK GREEN (SodH) MUSA DK BLUE (K2) DK BLUE (S) ACD Blood Culture NIPT/NTD [facility] 2023-11-19 09:19:29 Call placed to Mr. Hernandez and offered appt today in [place], however patient unable to come today. Advised I will continue to monitor the schedule for availably and call with any further opening. Pt only prefers [facility], so unable to offer other locations Jada Avalos RN [facility] 2023-11-12 13:22:28 Call placed to Mr. Hernandez to confirm appt with Dr. Gardner. Mr. Hernandez states his car broke down and he is currently fixing it. He asked to be rescheduled. Chart reviewed and no availability in [place] until December. Advised I will call him back with other options once schedule reviewed [facility] 2023-11-08 13:10:51 See other 11/07 encounter Jada Avalos RN [facility] 2023-11-08 12:17:45 Copied from [facility] #[id number]. Topic: Clinical - Medical Advice >> Nov 08, 2023 12:17 PM Patient Hearing Aid Consultant wrote: Srinivasa Hernandez is a 63 year old male. Pt returning Radha call. Please advise Dami Calabrese [facility] 2023-11-08 11:44:46 Call placed to Mr. Hernandez and reviewed providers results/recommendations. He denies any worsening SOB or LLE at this time. Verbalized understanding. No further questions or concerns at this time Jada Avalos RN [facility] 2023-11-08 10:29:42 Images from the original note were not included. Called patient regarding providers recommendation / results, VM left to call HF/clinic back at earliest convenience. ( numbers provided) Result Care Coordination Result Notes Mayur Moe MD 11/06/2023 1:35 PM CDT Back to [facility] Pressure inside the heart is markedly elevated Electrolytes WNL Kidney function elevated but stable. Would discuss with Nephrology service Continue with current medications if remains clinically stable and no worsening SOB/AGUS. Thanks! Radha Walker RN [facility] 2023-11-06 09:00:00 Images from the original note were not included. Venipuncture collection performed by clean technique on the right anticubitus. Total of 1 attempts were made. Slight pressure and a bandage/dressing were applied to the site(s). The patient experienced no complications. The following specimens were processed according to instructions and sent to [facility] laboratories per lab order on 11/06/2023: LT BLUE SST 1 RED LAV PPT DK GREEN (LiHep) DK GREEN (SodH) MUSA DK BLUE (K2) DK BLUE (S) ACD Blood Culture NIPT/NTD T [facility] 2023-10-23 09:54:52 Addended by: JADA WADSWORTH RN, V on: 10/23/2023 09:54 AM Modules accepted: Orders [facility] 2023-10-23 09:39:41 Please review lawanda advise Call placed to Mr. Hernandez and reviewed providers results/recommendations. Verbalized understanding. Mr. Hernandez states that he recently followed up with his graphics production specialist and will see them again this week where they will draw labs again. He will also repeat the labs as requested before his upcoming appointment with Dr. Gardner 11/12/23. He also states that they made the medication adjustments below. Advised I will notify Dr. Gardner and contact him back if any further recommendations. Verbalized understanding. No further questions or concerns at this time Decrease Entresto 24-26 mg tablets: Take 0.5 tablets by mouth BID Stopped- hydralazine Hold metoprolol if SBP <100 Decrease Lasix to 40 mg PO daily [facility] 2023-10-22 14:08:28 Images from the original note were not included. Attempted to call Mr. Hernandez and review providers results/recommendations. No answer at this time. left to return call at his earliest convenience. Mayur Moe MD Parson, Haleigh V, RN; P Heart Failure Nurse Electrolytes WNL Kidney function slightly worse (but no labs suggesting over diuresis) Can we add NTproBNP to previous sample? If not, would repeat both in 1-2 weeks. Need f/u antoine with Nephrology MINESH. Would continue with current meds for now. Thanks! Jada Avalos RN [facility] 2023-10-19 09:15:00 Images from the original note were not included. Venipuncture collection performed by clean technique on the left anticubitus. Total of 2 attempts were made. Slight pressure and a bandage/dressing were applied to the site(s). The patient experienced no complications. The following specimens were processed according to instructions and sent to [facility] laboratories per lab order on 10/19/2023: LT BLUE SST 1 RED LAV PPT DK GREEN (LiHep) DK GREEN (SodH) MUSA DK BLUE (K2) DK BLUE (S) ACD Blood Culture NIPT/NTD [facility] 2023-09-11 11:35:20 TRANSITIONAL CARE MANAGEMENT ASSESSMENT 09/11/2023 Srinivasa Hernandez [id number] Srinivasa Hernandez is a 63 year old /White male was admitted on 09/08/23 to [facility] ICU. He was discharged on 09/08/23 with discharge disposition of HR- Routine Discharge. Admitting Physician: Jony Ram Discharge Diagnosis: Principal Diagnosis: Hypoglycemia No linked episodes TCM [id number] outreach documentation: Discharge Assessment Chart Assessed: 09/11/23 TCM Outreach Completed: 09/11/23 Do you have a few minutes to speak with me about how you are doing at home?: Yes (Pt states he is doing good.) Discharge Instructions Do you understand your at-home instructions?: Yes (No questions at this time.) Medications Have you filled your prescriptions and do you have them in your home? : N/A (No new medications prescribed at discharge.) Do you know how to take your medications?: Yes (No questions.) Supplies Did you receive applicable home medical supplies/equipment?: N/A Follow Up Appointment Has a follow up appointment been scheduled?: No May I assist with scheduling this appointment?: Patient has outside PCP Do you have any questions about your follow up appointments?: No Are you able to get to your appointment? Who will be taking you?: Yes (Pt states he has transportation.) Home Health Assistance Has the home health nurse contacted you since you've been home?: N/A Survey - Recognition Is there anything you would like to share about your recent hospitalization, or anyone you would like to recognize?: No Do you have any suggestions for improvement?: No Do you have any other questions or concerns at this time?: No Future Appointments: Pending. Ordonez RN [facility] 2023-09-10 16:30:49 CM made follow up call to patient post-discharge. No answer and call went to voicemail. CM left a discreet message with purpose of call and CM's call back information. [facility] 2023-09-08 10:41:46 Problem: Falls, Risk of Goal: Absence of falls Outcome: Adequate for discharge Problem: Glucose control Goal: Glucose level within specified parameters Outcome: Adequate for discharge Problem: Venous Thromboembolism, (actual or risk of) Goal: Absence of venous thromboembolism (Risk) Outcome: Adequate for discharge Goal: Prevent further complications associated with VTE diagnosis (Actual) Outcome: Adequate for discharge Problem: Discharge Planning Goal: Adequate for discharge Outcome: Adequate for discharge Cheung RN [facility] 2023-09-08 08:17:59 Problem: Falls, Risk of Goal: Absence of falls Outcome: Progressing as expected Problem: Glucose control Goal: Glucose level within specified parameters Outcome: Progressing as expected Problem: Discharge Planning Goal: Adequate for discharge Outcome: Progressing as expected [facility] 2023-09-08 07:28:29 Patient admitted to 2107-04 for diagnosis of hypoglycemia. Patient agrees to admission, discussed plan of care with patient and family. Patient is awake, alert, oriented, resp reg unlabored, color appropriate for race, PIV intact Belongings with patient to unit Smith RN [facility] 2023-09-08 07:25:33 Nurse Report Report given to CATHY Johnson. Chief complaint, assessment findings, infusion verify and orders reviewed. Plan of care discussed at bedside with patient and both nurses. Patient/family members verbalized understanding. Mohini Smith RN [facility] 2023-09-08 06:50:30 Associated Order(s): Critical Care Critical Care Performed by: Tien Gross MD Authorized by: Tien Gross MD Critical care provider statement: Critical care time (minutes): 45 Critical care time was exclusive of: Separately billable procedures and treating other patients and teaching time Critical care was necessary to treat or prevent imminent or life-threatening deterioration of the following conditions: Metabolic crisis Critical care was time spent personally by me on the following activities: Development of treatment plan with patient or surrogate, evaluation of patient's response to treatment, examination of patient, obtaining history from patient or surrogate, ordering and performing treatments and interventions, ordering and review of laboratory studies, ordering and review of radiographic studies, pulse oximetry, re-evaluation of patient's condition and review of old charts Care discussed with: admitting provider Comments: Due to a high probability of clinically significant, life threatening deterioration, the patient required my highest level of preparedness to intervene emergently and I personally spent this critical care time directly and personally managing the patient. This critical care time included obtaining a history; examining the patient; pulse oximetry; ordering and review of studies; arranging urgent treatment with development of a management plan; evaluation of patient's response to treatment; frequent reassessment; and, discussions with other providers. This critical care time was performed to assess and manage the high probability of imminent, life-threatening deterioration that could result in multi-organ failure. It was exclusive of separately billable procedures and treating other patients. [facility] 2023-09-08 05:23:59 CC: Pt found unresponsive by family, diaphoretic. Pt had BGL 49. [facility] gave 250 of D10 and BGL came up to 124. Pt ate at 1500 yesterday and took insulin 22 hrs ago. Pt reports drinking alcohol yesterday. PMHx: see chart Awake, alert, oriented, resp reg unlabored, skin warm, color appropriate for race, moves all ext without difficulty Janet Martinez RN [facility] 2023-09-08 05:21:00 EMERGENCY DEPARTMENT ENCOUNTER [facility] Patient Name: Srinivasa Hernandez Date of : 1960 63 year old Exam Room:NJ4/NJ4 Primary Care Physician: Sonia Dubon Pre- Hospital Patient Escorted by: Self [9] Mode of Arrival: EMS - [facility] ([place]) [43] EMS Treatment Prior to ED Arrival: BUNCH MAKER treatment: Medication (comment) BUNCH MAKER treatment comments: 250 mL D10 ED Events Date/Time Event User Comments 09/08/23524 Medical Screening Begins TIEN GROSS MD -- 09/08/23524 First Provider Evaluation TIEN GROSS MD -- Chief Complaint Chief Complaint Patient presents with Hypoglycemia ED Triage Notes Janet Martinez RN 09/08/2023 05:26 CC: Pt found unresponsive by family, diaphoretic. Pt had BGL 49. [facility] gave 250 of D10 and BGL came up to 124. Pt ate at 1500 yesterday and took insulin 22 hrs ago. Pt reports drinking alcohol yesterday. PMHx: see chart Awake, alert, oriented, resp reg unlabored, skin warm, color appropriate for race, moves all ext without difficulty HPI History provided by: Patient Illness Location: Hypoglycemia Severity: Moderate Timing: Constant Chronicity: New Relieved by: Nothing Worsened by: Nothing Associated symptoms: no abdominal pain, no chest pain, no cough, no fatigue, no fever, no headaches, no nausea, no shortness of breath, no vomiting and no wheezing Past Medical History / Immunizations Past Medical History: Diagnosis Date CHF (congestive heart failure) Chronic kidney disease Coronary artery disease involving [place] coronary artery without angina pectoris 11/23/2015 Essential hypertension 06/15/2014 ICD10 Diagnosis 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 Gout Ischemic cardiomyopathy 06/15/2014 EF 20% per pt 10/04, 15-20% 11/2015 LA (myocardial infarction) Pacemaker S/P CABG x 3 Type 2 diabetes mellitus without complication 11/23/2015 Tetanus received in last 5 years: Unknown Past Surgical History Past Surgical History: Procedure Laterality Date CABG, ARTERIAL, THREE 03/2015 [employer] IMPLANTABLE CARDIOVERTER DEFIBRILLATOR PLACEMENT 08/2016 PACEMAKERS INSERTION 08/2016 PTCA W/POSSIBLE STENT 09/2013 [facility] Allergies No Known Allergies Social History Tobacco Use Former; Cigarettes: 04/23/1990 - 04/23/2015; Smoked an average of 1.5 packs/day for 25.0 years Smokeless Tobacco: Former user of smokeless tobacco. Comments: Quit one month ago Alcohol Use Yes; 0.0 standard drinks of alcohol per week; 0 Standard drinks or equivalent. Comments: once a month Sexual Activity Not currently sexually active; Partners: Female; Control/Protection: None. Review of Systems Review of Systems Constitutional: Negative. Negative for chills, fatigue, fever and unexpected weight change. HENT: Negative. Eyes: Negative. Negative for discharge and itching. Respiratory: Negative. Negative for cough, chest tightness, shortness of breath and wheezing. Cardiovascular: Negative. Negative for chest pain and palpitations. Gastrointestinal: Negative. Negative for abdominal distention, abdominal pain, nausea and vomiting. Genitourinary: Negative. Negative for dysuria, urgency, frequency and flank pain. Musculoskeletal: Negative. Skin: Negative. Negative for color change, pallor and wound. Neurological: Negative. Negative for dizziness, syncope, light-headedness and headaches. Psychiatric/Behavioral: Negative. Negative for agitation and behavioral problems. All other systems reviewed and are negative. Endocrine: Endocrine negative Physical Exam ED Triage Vitals [09/08/23 0524] Weight 74.8 kg (165 lb) Actual or estimated Height 1.753 m (5' 9") BP 111/51 Pulse 79 Resp 17 Temp 34.2 ?C (93.5 ?F) Temp source Axillary SpO2 100 % Measured on Physical Exam Vitals reviewed. Constitutional: Appearance: He is well-developed. HENT: Head: Normocephalic and atraumatic. Eyes: Conjunctiva/sclera: Conjunctivae normal. Cardiovascular: Rate and Rhythm: Normal rate and regular rhythm. Heart sounds: Normal heart sounds. Pulmonary: Effort: Pulmonary effort is normal. No respiratory distress. Breath sounds: Normal breath sounds. No stridor. No wheezing or rales. Abdominal: General: Bowel sounds are normal. There is no distension. Palpations: Abdomen is soft. Tenderness: There is no abdominal tenderness. There is no guarding or rebound. Musculoskeletal: General: Normal range of motion. Skin: General: Skin is warm and dry. Neurological: Mental Status: He is alert and oriented to person, place, and time. Cranial Nerves: No cranial nerve deficit. Sensory: No sensory deficit. Psychiatric: Behavior: Behavior normal. Labs Lab Results CBC WITH DIFF - Abnormal Result Value Ref Range WBC 4.44 4.20 - 10.70 10*3/?L RBC 2.50 (*) 4.26 - 5.52 10*6/?L HGB 8.3 (*) 12.2 - 16.4 g/dL HCT 25.2 (*) 38.4 - 49.3 % MCV 100.8 (*) 81.7 - 95.6 fL MCH 33.2 (*) 26.1 - 32.7 pg MCHC 32.9 31.2 - 35.0 g/dL RDW-SD 53.2 (*) 38.5 - 51.6 fL RDW-CV 14.6 12.1 - 15.4 % PLT 212 150 - 328 10*3/?L MPV 11.2 9.8 - 13.0 fL NRBC/100 WBC 0.0 0.0 - 10.0 /100 WBCs NRBC x10 3 <0.01 10*3/?L GRAN MAT (NEUT) % 73.4 % IMM GRAN % 0.00 % LYMPH % 12.4 % MONO % 8.1 % EOS % 5.4 % BASO % 0.7 % GRAN MAT x10 3 (ANC) 3.26 1.99 - 6.95 10*3/uL IMM GRAN x10 3 <0.03 0.00 - 0.06 10*3/uL LYMPH x10 3 0.55 (*) 1.09 - 3.23 10*3/uL MONO x10 3 0.36 0.36 - 1.02 10*3/uL EOS x10 3 0.24 0.06 - 0.53 10*3/uL BASO x10 3 0.03 0.01 - 0.09 10*3/uL COMP. METABOLIC PANEL (98117) - Abnormal NA 133 (*) 135 - 145 mmol/L K 3.3 (*) 3.5 - 5.0 mmol/L CL 102 98 - 108 mmol/L CO2 TOTAL 17 (*) 23 - 31 mmol/L AGAP 14 2 - 16 BUN 53 (*) 7 - 23 mg/dL GLUCOSE 99 70 - 110 mg/dL CREATININE 3.35 (*) 0.60 - 1.25 mg/dL TOTAL BILI 0.4 0.1 - 1.1 mg/dL CALCIUM 8.1 (*) 8.6 - 10.6 mg/dL T PROTEIN 7.3 6.3 - 8.2 g/dL ALBUMIN 3.7 3.5 - 5.0 g/dL ALK PHOS 124 (*) 34 - 122 U/L ALTv 12 5 - 50 U/L AST(SGOT) 24 13 - 40 U/L eGFR 19.9 mL/min/1.73m2 TROPONIN I - Normal TROPONIN I 0.019 <=0.034 ng/mL LIPASE - Normal LIPASE 76 0 - 220 U/L POCT GLUCOSE (AUTOMATED) - Normal POCT GLU 108 70 - 110 mg/dL POCT GLUCOSE (AUTOMATED) - Normal POCT GLU 80 70 - 110 mg/dL ETHANOL ALCOHOL 13 mg/dL URINE DRUG (IMMUNOASSAY) - COMPREHENSIVE DRUG SCREEN W/O REFLEX URINALYSIS BLOOD CULTURE SCREEN BLOOD CULTURE SCREEN LIPASE POCT GLUCOSE(AGE >30DAYS) Imaging No orders to display Orders and Treatments Orders Placed This Encounter Procedures Critical Care XR CHEST 1 VW CBC WITH DIFF COMP. METABOLIC PANEL (72582) TROPONIN I LIPASE URINE DRUG (IMMUNOASSAY) - COMPREHENSIVE DRUG SCREEN W/O REFLEX ETHANOL POCT GLUCOSE (AUTOMATED) Urinalysis BLOOD CULTURE SCREEN BLOOD CULTURE SCREEN Lipase POCT Glucose (Age >30 Days) POCT GLUCOSE (AUTOMATED) Orders Placed This Encounter Medications dextrose 50 % in water (D50W) injection 25 mL glucagon (GLUCAGEN DIAGNOSTIC KIT) injection 1 mg Procedures EKG Time 0532 Rate 84 Normal sinus LBBB QTc prolonged Abnormal EKG Notes & MDM Patient was evaluated for an emergency medical condition related to Hypoglycemia Diagnosis/Impression as of 09/08/23 0701 Hypoglycemia Chronic kidney disease, unspecified CKD stage Anemia, unspecified type Cough, unspecified type Hypokalemia Medical Decision Making Problems Addressed: Anemia, unspecified type: chronic illness or injury Chronic kidney disease, unspecified CKD stage: chronic illness or injury Cough, unspecified type: acute illness or injury Hypoglycemia: acute illness or injury Amount and/or Complexity of Data Reviewed Labs: ordered. Decision-making details documented in ED Course. Radiology: ordered and independent interpretation performed. Decision-making details documented in ED Course. ECG/medicine tests: independent interpretation performed. Decision-making details documented in ED Course. Limitations to patient care and compliance: none. Assessment/Summary: The patient is a 63-year-old gentleman with history of CKD, anemia, and diabetes who presents for hypoglycemia. He is a insulin-dependent diabetic. He notes he has not eaten since 3 PM yesterday and forgot to take his insulin as well. He was noted to be slightly confused with a blood sugar of 49 at home. EMS was activated. He received dextrose prior to arrival. Workup today demonstrates a chronic anemia of 8. He also has acute on chronic renal failure with a creatinine of 3.35. He is mildly hypokalemic as well. He was also found to be extremely hypothermic. Eliazar hugger was placed on the patient. The patient will be admitted to the medicine service for further inpatient management. History, physical exam findings, results of visit, differential diagnosis, medication regimens and plan of future care have been considered. Additional MDM may be found in the ED course. Differential diagnosis considered and final disposition made based on information gathered during evaluation and may not be completely ruled out or specifically listed. Vital signs were rechecked before final disposition. Diagnosis Final diagnoses: [E16.2] Hypoglycemia (Primary) [N18.9] Chronic kidney disease, unspecified CKD stage [D64.9] Anemia, unspecified type [R05.9] Cough, unspecified type [E87.6] Hypokalemia Disposition & Follow Up ED Disposition None Patient's Medications START taking these medications No medications on file CONTINUE taking these medications which have NOT CHANGED ACETAMINOPHEN (TYLENOL EXTRA STRENGTH) 500 MG TABLET Take 500 mg by mouth every 6 (six) hours as needed for Pain. ALLOPURINOL 100 MG TABLET Take 2 tablets by mouth in the morning. ASPIRIN 81 MG CHEWABLE TABLET Take 1 tablet by mouth daily. ATORVASTATIN 80 MG TABLET TAKE 1 TABLET BY MOUTH ONCE DAILY BLOOD-GLUCOSE METER KIT Use TID, DX E11.9 (Brand upon insurance approval) CLOPIDOGREL 75 MG TABLET TAKE 1 TABLET BY MOUTH ONCE DAILY EZETIMIBE 10 MG TABLET Take 1 tablet by mouth in the morning. FUROSEMIDE 40 MG TABLET Take 2 tablets by mouth every morning AND 2 tablets every evening. GLIMEPIRIDE 1 MG TABLET TAKE 1 TABLET BY MOUTH ONCE DAILY WITH BREAKFAST OR THE FIRST MEAL OF THE DAY HYDRALAZINE 25 MG TABLET Take 1 tablet by mouth every 8 (eight) hours. INSULIN NEEDLES, DISPOSABLE, (BD INSULIN PEN NEEDLE UF) 29 GAUGE X 1/2" NDLE USE DIRECTED WITH KWIKPEN ONCE A DAY INSULIN NEEDLES, DISPOSABLE, 30 GAUGE X 5/16" NDLE Use as directed INSULIN SYRINGE-NEEDLE U-100 0.5 ML 31 GAUGE X 5/16 SYRG Inject insulin 2 times a day. Dx code E11.9. IPRATROPIUM 0.03 % NASAL SPRAY Use 2 Sprays in each nostril 3 (three) times daily. ISOSORBIDE DINITRATE 20 MG TABLET Take 1 tablet by mouth every 8 (eight) hours. LANCETS (FREESTYLE LANCETS) 28 GAUGE MISC Use TID, DX E11.9 (Brand upon insurance approval) MAGNESIUM OXIDE 420 MG TAB Take 400 mg by mouth in the morning. METOPROLOL SUCCINATE XL 50 MG 24 HR TABLET Take 1 tablet by mouth in the morning. TAKE 1 TABLET BY MOUTH ONCE DAILY NITROGLYCERIN (NITROSTAT) 0.[address] 1 tablet under the tongue every 5 (five) minutes as needed for Chest pain. PANTOPRAZOLE 40 MG EC TABLET Take 1 tablet by mouth in the morning. SACUBITRIL-VALSARTAN 24-26 MG TABLET Take 1 tablet by mouth in the morning and 1 tablet in the evening. TRESIBA FLEXTOUCH U-100 100 UNIT/ML (3 ML) INPN INJECT 24 UNITS UNDER THE SKIN AT BEDTIME START taking Modified Medications as Prescribed No medications on file STOP taking these medications No medications on file Tien Gross Jr., MD Clinical Fl[employer] C[employer] [facility] Emergency Department [employer] is used frequently and may produce errors. Promptly contact for obvious discrepancies. Tien Gross MD 09/08/23 07 [facility] 2023-06-20 15:24:45 Addended by: JADA WADSWOTRH RN, V on: 06/20/2023 03:24 PM Modules accepted: Orders [facility] 2023-06-20 15:19:[address] Gardner, telephone order: Keep same dose patient is currently taking of entresto 24-26 mg PO BID and send refill at this time to update [facility]. Repeat BMP in 1 week. Read back Call placed to Mr. Hernandez and reviewed providers results/recommendations. Verbalized understanding. No further questions or concerns at this time [facility] 2023-06-20 10:15:[address] Gardner increased dose of Entresto to 24-26 mg tablets 1 tablet BID. He states he has been taking it that way " for a while". BP average - per pt - 135-145/5960 HR 75-80. No issues or concerns. Advised Message will be sent to the provider for refill. He request to have it filled by 06/22/2023 insurance is changing and he will be out of network. Plan: HFrEF (heart failure with reduced ejection fraction) (primary encounter diagnosis) Comment: clinically stable Plan: In fluid overload Secondary to ICM NYHA functional class III symptoms, stage C Continue with optimization of HF meds as tolerated: -Continue with metoprolol succinate 50 mg daily. -Decrease Entresto to 1/2 tablet (24-26 dose) BID and monitor response (patient was actually taking only once daily) IDA Walker RN [facility] 2023-06-20 10:05:57 Copied from [facility] #[id number]. Topic: Clinical - Order >> Jun 20, 2023 10:05 AM [facility] Team wrote: Patient out of sacubitriL 24 mg-valsartan 26 mg tablet (ENTRESTO) x 2 days, He also needs another medication but does not know the name of it Encounter placed 06/18/23 with no response Can a nurse speak with patient and send this in for the patient today IDA Napoles [facility] 2023-06-18 11:40:10 Srinivasa Hernandez is a 62 year old male Patient states he is on his last one today. Patient is calling and states rx: sacubitriL 24 mg-valsartan 26 mg tablet (ENTRESTO) was changed to 2 pills a day and needing a new prescription to reflect that change. Sent to : [facility] [address] [place] [address] Please advise [phone] (home) IDA Gonzalez [facility] 2023-05-04 10:27:[address] Tejada at 0915 on 05.04.2023 in regards to patients visit and remaining labs that needed to be drawn today at [facility] In[facility]. Dr. Tejada given results for this patient of Ferritin 95.5, Iron 86, HGB 8.4 and HCT 25.5 from 05.03.2023 and MD informed that TIBC and Transferrin will be a send out today. Also provided with pts weight for Retacrit dosing. Verbal orders received, today only by Dr. Tejada to administer Retactrit 10,000 subq units x1 one dose today. Orders initiated. IDA Gordillo RN [facility] 2023-05-03 10:45:00 Pt had to wait for Fax orders. Did not want to wait long. I will give pt a call once orders are faxed in. Elena Vargas 05/03/2023 12:08 PM CONSULTANT Elena Vargas [facility] 2023-05-03 10:23:[address] Tejada at 1020 on 05.03.2023 for order clarification on regarding pts iron studies/treatment for 05.03.2023, [facility] visit. MD to submit external orders as requested, as soon as possible. Patient to come to [facility] today for labs and return tomorrow for treatment. MD confirmed plan of care. IDA Gordillo RN [facility] 2023-05-03 10:00:00 Addended by: MARY KAY GORDILLO RN on: 05/03/2023 04:57 PM Modules accepted: Orders [facility] 2023-05-01 14:39:08 Call placed to mr. Hernandez and reviewed providers recommendations. Verbalized understanding. Assisted with scheduling f/u for june in [place]. No further questions or concerns at this time [facility] 2023-05-01 12:39:21 I reviewed results from [facility] on 04/02/2023 Numbers look great Would continue with all current medications and keep antoine in June (or earlier with FLOORING SALESPERSON at different location, if needed or if any new clinical change). Thanks! [facility] 2023-04-25 11:38:51 Addended by: JADA WADSWORTH RN, V on: 04/25/2023 11:38 AM Modules accepted: Orders [facility] 2023-04-25 11:33:54 Please review and advise on follow up appointment Call placed to Mr. Hernandez and reviewed providers recommendations. Verbalized understanding. Noted on chart that pt does not currently have a follow up in HF clinic. Chart reviewed and JANIYA note specified to follow up in 4 weeks. Soonest appointment available in [place] july 08, then july 15. Advised I will review with the provider and call him back for scheduling. MAR updated with correct lasix dose [facility] 2023-04-24 16:36:25 Attempted to call Mr. Hernandez to review providers recommendations. No answer at this time. Vm left to return call at his earliest convenience. [facility] Jada Avalos RN [facility] 2023-04-24 15:24:22 Please keep at current dose of lasix at 80 mg BID (especially since symptoms resolved). Adding Dr. Tejada to thread. Thanks! [facility] 2023-04-19 11:21:36 Call placed to Mr. Hernandez and reviewed providers results/recommendations from [facility] and labs. Verbalized understanding. Mr. Hernandez states he has already followed up with his kidney doctor, Dr. Tejada. They decreased his lasix down to 60 mg PO BID, but then he started having swelling and "not doing well" so he increased it back up to 80 BID on his own, which is what Dr. Gardner had him on. Educated on the importance of not self adjusting medications on his own and to notify the provider when he is having symptoms. Advised to contact Dr. Hfufman office at this time to notify them for any further recommendations since they made the most recent medication adjustments. Verbalized understanding. Mr. Hernandez states his swelling has completely resolved at this time. He states Dr. Huffman office is hard to get ahold of but he will try again at this time CONSULTANT Jada Avalos RN [facility] 2023-04-13 14:50:30 Images from the original note were not included. Result Notes Oriana Escalante RN 04/13/2023 2:49 PM IT CONSULTANT Back to Top left requesting call back for review of results/recommendations. Please see encounter note Mayur Moe MD 04/13/2023 2:33 PM IT CONSULTANT Recently sent results from [facility] Here are the labs. Electrolytes WNL Kidney function remains elevated but slightly improved (still CKD stage 4) Needs Nephrology to follow Since [facility] showed normal pressures and good pumping, would continue current meds and dietary restrictions. Thanks! Result Notes Orinaa Escalante RN 04/13/2023 2:51 PM IT CONSULTANT Back to Top left requesting call back for review of results/recommendations. Please see encounter note Mayur Moe MD 04/13/2023 2:31 PM IT CONSULTANT Results from [facility] are WNL Pressures are normal, as well as amount of blood pumped. Continue current medications. Thank CONSULTANT Oriana Escalante RN [facility] 2022-11-24 11:19:18 Formatting of this n ote might be different from the original. Received forms from [facility] and [facility] will put in Dr. Cabrera folder for review. Brooke Robert MA [facility]
[2024-07-26 11:04] LABS: AST/SGOT 16 U/L (15-37); Albumin/Globulin Ratio 0.4 (1.1-1.8); Alkaline Phosphatase 119 U/L (45-117); Anion Gap 9.7 mEq/L (5.0-15.0); BUN Blood Urea Nitrogen 19 mg/dL (7-18); Bicarbonate 29 mEq/L (21-32); Bilirubin Direct 0.3 mg/dL (0-0.2); Bilirubin Indirect, Calculated 0.2 mg/dL (0.2-0.8); Bilirubin Total 0.5 mg/dL (0.2-1.0); Globulin 5.5 g/dL (2.3-3.5); Glomerular Filtration Rate 21 ml/min (=/>90); Glucose Level 256 mg/dL (74-106); Lipase 27 U/L (13-75); Magnesium 2.1 mg/dL (1.6-2.4); NT PRO-BNP 84029 pg/mL (<125); Potassium 3.7 mEq/L (3.5-5.1); Protein, Total 7.5 g/dL (6.4-8.2); Sodium Level 132 mEq/L (136-145); Troponin High Sensitivity 17.3 pg/mL (<58.9)
[2024-07-26 11:06] LABS: ALT/SGPT < 14 U/L (16-61)
--- NOTE | 2024-07-26 11:35 | RAD REPORT ---
EXAMINATION: ONE VIEW CHEST XR CLINICAL INDICATION: CHEST PAIN TECHNIQUE: Frontal chest projection is submitted. Examination is limited by patient positioning and t echnique. COMPARISON: 04/24/2022 FINDINGS: Moderate to large left pleural effusion. Small right pleural effusion. Hazy opacities in both lung ba ses may represent pulmonary edema. Heart is moderately enlarged. Sternotomy wires are present. Single-lead pacer/defibrillator device.
--- NOTE | 2024-07-26 12:02 | RAD REPORT ---
EXAM: CT CHEST, ABDOMEN AND PELVIS WITHOUT CONTRAST CLINICAL INDICATION: abd pain;Chest pain TECHNIQUE: CT chest, abdomen and pelvis was performed without contrast, as per department protocol. A xial, sagittal and coronal reconstructions were obtained. One or more of the following dose reduction techniques were used: Automated exposure control, adjustment of the mA and/or kV according to patient size, and/or iterative reconstruction. Unless otherwise specified, incidental findings do not require dedicated imaging follow-up. Examination is limited by the lack of intravenous contrast material. COMPARISON: 02/26/2014 FINDINGS: LUNGS: Areas of lung consolidation in both posterior lung bases, greater on the left. This is probabl y atelectasis. PLEURA: Small to moderate right and moderate to large left pleural effusions. MEDIASTINUM AND LYMPH NODES: No mediastinal mass or fluid collection. Normal size mediastinal, hilar, and axillary lymph nodes. OSSEOUS STRUCTURES AND CHEST WALL: Status post CABG. Pacer device is in place. LIVER: Normal in size and contour. No focal lesion or biliary dilatation. Mild gallbladder wall thick ening suspected. PANCREAS: No mass, ductal dilation, or trish-pancreatic fluid. Surgical clips seen in the region of th e pancreatic head and distal stomach. SPLEEN: Normal size. No focal lesion. ADRENALS: Normal; no mass. KIDNEYS: Normal size and contour. No hydronephrosis. URINARY BLADDER: Normal contour. GASTROINTESTINAL TRACT: No bowel obstruction. Moderate ascites. No free air or abscess. APPENDIX: Normal appendix. LYMPH NODES: No lymphadenopathy. MUSCULOSKELETAL: No acute or suspicious osseous abnormality. OTHER: Prominent gastric distention. IMPRESSION: Bilateral pleural effusions, greater on the left as detailed with moderate basilar lung consolidation . Moderate ascites. Prominent gastric distention noted.
--- NOTE | 2024-07-26 12:07 | EDPHYS ---
Physician Documentation [facility] Name: Srinivasa Hernandez Age: 64 yrs Sex: Male : 1960 Arrival Date: 07/26/2024 Time: 10:07 Bed 17 Private MD: ED Physician Juana Mccann HPI: 07/26 10:12 This 64 yrs old Male presents to ER via Wheelchair with complaints of Chest sb4 Pain. 10:12 Patient states he woke up this morning with nausea and vomiting, later started sb4 experiencing chest pain. Does report a significant cardiac history- CAD s/p CABG, CHF, IDDM. Denies any current blood thinner use. Is unable to characterize the pain. States it does not radiate anywhere. States that he does feel it in his upper abdomen. Historical: - Allergies: 10:12 No Known Allergies; iw - Home Meds: 10:23 midodrine 10 mg oral tablet one hour before dialysis [Active]; pantoprazole 40 mg oral iw tablet, delayed release (enteric coated) 2 times per day [Active]; Claritin 10 mg Oral tablet daily [Active]; sucralfate 1 gram Oral tablet before meals [Active]; insulin [Active]; - PMHx: 10:12 Diabetes - IDDM; Hypertension; Myocardial infarction; iw 12:09 End stage renal disease; sb4 - PSHx: 10:12 defib; triple bypass; iw - Immunization history:: Adult Immunizations up to date. - Infectious Disease History:: Denies. - Social history:: Smoking status: unknown. ROS: 10:12 Constitutional: Negative for fever, chills, and weight loss, sb4 10:12 Cardiovascular: Positive for chest pain, 10:12 Abdomen/GI: Positive for nausea and vomiting, 10:12 All other systems are negative, Exam: 10:25 Head/Face: Normocephalic, atraumatic. ENT: Mucous membranes moist. Cardiovascular: sb4 Regular rate and rhythm with a normal S1 and S2. Respiratory: No increased work of breathing, no retractions or nasal flaring. Abdomen/GI: Soft, non-tender, no distension. 10:25 Constitutional: The patient appears alert, awake, uncomfortable, 10:25 Eyes: Sclera: icterus, is present, 10:25 Chest/axilla: Inspection: Sternotomy scar, 10:25 Skin: Appearance: Color: jaundiced, Vital Signs: 10:16 BP 109 / 55; Pulse 90; Resp 24 S; Temp 97.8; Pulse Ox 100% on R/A; Weight 70.31 kg; iw Height 5 ft. 9 in. ; Pain 3/10; 12:47 BP 117 / 62; Pulse 96; Resp 24 S; Pulse Ox 98% on R/A; kc6 10:16 Body Mass Index 22.89 (70.31 kg, 175.26 cm) iw 10:16 Pain Scale: Adult iw MDM: 10:08 Medical Screening Exam initiated sb4 10:29 Differential diagnosis: abnormal EKG, acute myocardial infarction, coronary artery sb4 disease cholecystitis, Cholelithiasis esophagitis, pancreatitis, stable angina, unstable angina, acute liver failure. 12:07 The patient was given aspirin in the Emergency Department. Data reviewed: vital signs, sb4 nurses notes, lab test result(s), EKG, radiologic studies, I have discussed the patient's presentation/case with the attending Emergency Department Physician; and as a result, I will admit patient. Consideration of Admission/Observation Patient was admitted/placed on observation. Care significantly affected by the following chronic conditions: Diabetes, Hypertension, Chronic Kidney Disease. Counseling: I had a detailed discussion with the patient and/or guardian regarding the historical points, exam findings, and any diagnostic results supporting the discharge/admit diagnosis, lab results, radiology results, the need for further work-up and treatment in the hospital. 12:07 Scoring Tools HEART Score: History: ECG: Age: Risk Factors: > or = 3 Risk factors for sb4 atherosclerotic disease (2), Troponin: Total Score = 6. 07/26 10:12 Order name: Basic Metabolic Panel; Complete Time: 11:12 sb4 07/26 10:12 Order name: CBC with Diff; Complete Time: 10:42 sb4 07/26 10:12 Order name: LFT's; Complete Time: 11:12 sb4 07/26 10:12 Order name: Magnesium; Complete Time: 11:12 sb4 07/26 10:12 Order name: NT PRO-BNP; Complete Time: 11:12 sb4 07/26 10:12 Order name: PT-INR; Complete Time: 10:38 sb4 07/26 10:12 Order name: Troponin HS; Complete Time: 11:12 sb4 07/26 10:12 Order name: Lipase; Complete Time: 11:12 sb4 07/26 13:46 Order name: T4 Free; Complete Time: 09:26 EDMS 07/26 13:46 Order name: Thyroid Stimulating Hormone; Complete Time: 09:26 EDMS 07/26 13:46 Order name: Basic Metabolic Panel EDMS 07/26 13:46 Order name: Basic Metabolic Panel; Complete Time: 09:26 EDMS 07/26 13:46 Order name: CBC with Automated Diff EDMS 07/26 13:46 Order name: CBC with Automated Diff; Complete Time: 09:26 EDMS 07/26 13:46 Order name: Hemoglobin A1c EDMS 07/26 13:46 Order name: Hemoglobin A1c EDMS 07/26 13:46 Order name: Lipid Profile EDMS 07/26 13:46 Order name: Lipid Profile; Complete Time: 09:26 EDMS 07/26 13:46 Order name: Magnesium EDMS 07/26 13:46 Order name: Magnesium; Complete Time: 09:26 EDMS 07/26 13:46 Order name: Phosphorus EDMS 07/26 13:46 Order name: Phosphorus; Complete Time: 09:26 EDMS 07/26 13:46 Order name: Troponin High Sensitivity EDMS 07/26 13:46 Order name: Troponin High Sensitivity; Complete Time: 09:26 EDMS 07/26 13:46 Order name: Troponin High Sensitivity; Complete Time: 09:26 EDMS 07/26 13:46 Order name: Urinalysis w/ reflexes EDMS 07/26 10:12 Order name: XRAY Chest (1 view); Complete Time: 11:36 sb4 07/26 11:13 Order name: CT Chest Abdomen Pelvis W/O Contrast; Complete Time: 12:03 sb4 07/26 13:46 Order name: Echo with Doppler EDMS 07/26 10:12 Order name: Cardiac monitoring; Complete Time: 10:31 sb4 07/26 10:12 Order name: EKG - Nurse/Tech; Complete Time: 10:18 sb4 07/26 10:12 Order name: IV Saline Lock; Complete Time: 10:24 sb4 07/26 10:12 Order name: Labs collected and sent; Complete Time: 10:24 sb4 07/26 10:12 Order name: O2 Per Protocol; Complete Time: 10:18 sb4 07/26 10:12 Order name: O2 Sat Monitoring; Complete Time: 10:18 sb4 EC:23 Rate is 91 beats/min. Rhythm is regular, Normal Sinus Rhythm with Left bundle branch sb4 block. Left axis deviation noted. DC interval is normal at 156 msec. QRS interval is normal at 130 msec. QT interval is normal at 376 msec. Clinical impression: Abnormal EKG without significant change. No change from previous ECG on April 24, 2022. Interpreted by me. Reviewed by me. Administered Medications: 12:35 Drug: Aspirin PO Chewable Tablet 162 mg PO once Route: PO; kc6 12:48 Follow up: Response: No adverse reaction kc6 12:35 Drug: Pantoprazole IVP 40 mg IVP once Route: IVP; Site: left forearm; kc6 12:48 Follow up: Response: No adverse reaction kc6 Disposition Summary: 07/26/24 12:06 Hospitalization Ordered Notes: Hospitalization Status: Observation sb4 Provider: Luca Vital sb4 Location: Telemetry/MedSurg (observation) sb4 Condition: Fair sb4 Problem: new sb4 Symptoms: are unchanged sb4 Bed/Room Type: Standard sb4 Room Assignment: 208(07/26/24 13:57) eb Diagnosis - Chest pain, unspecified sb4 Forms: - Medication Reconciliation Form sb4 - SBAR form sb4 - Leadership Thank You Letter sb4 Signatures: Dispatcher [employer] Rachel Wu RN RN iw Botello, Elizabeth eb Campbell, Kaitlyn, RN RN kc6 Thao Bales PA-C PA-C sb4 Corrections: (The following items were deleted from the chart) 10:12 10:12 BASIC METABOLIC PANEL+C.LAB.BRZ ordered. EDMS EDMS 10:12 10:12 CBC+H.LAB.BRZ ordered. EDMS EDMS 10:12 10:12 HEPATIC FUNCTION+C.LAB.BRZ ordered. EDMS EDMS 10:12 10:12 MAGNESIUM+C.LAB.BRZ ordered. EDMS EDMS 10:12 10:12 PROBNP+C.LAB.BRZ ordered. EDMS EDMS 10:12 10:12 PROTIME (+INR)+COAG.LAB.BRZ ordered. EDMS EDMS 10:12 10:12 Troponin High Sensitivity+C.LAB.BRZ ordered. EDMS EDMS 10:12 10:12 LIPASE+C.LAB.BRZ ordered. EDMS EDMS 10:12 10:12 Chest Single View+RAD.RAD.BRZ ordered. EDMS EDMS 10:30 10:29 ECG: sb4 sb4 13:57 12:06 sb4 eb
--- NOTE | 2024-07-26 12:07 | ER ---
Nurse's Notes [facility] Name: Srinivasa Hernandez Age: 64 yrs Sex: Male : 1960 Arrival Date: 07/26/2024 Time: 10:07 Bed 17 Private MD: Diagnosis: Chest pain, unspecified Presentation: 07/26 10:11 Chief complaint: Patient states: midsternal chest pain started this morning. iw Coronavirus screen: At this time, the client does not indicate any symptoms associated with coronavirus-19. Ebola Screen: No symptoms or risks identified at this time. Risk Assessment: Do you want to hurt yourself or someone else? Patient reports no desire to harm self or others. Onset of symptoms was July 26, 2024. 10:11 Method Of Arrival: Wheelchair iw 10:11 Acuity: MARILUZ 2 iw 10:20 Initial Sepsis Screen: Does the patient meet any 2 criteria? No. Patient's initial iw sepsis screen is negative. Does the patient have a suspected source of infection? No. Patient's initial sepsis screen is negative. Historical: - Allergies: 10:12 No Known Allergies; iw - Home Meds: 10:23 midodrine 10 mg oral tablet one hour before dialysis [Active]; pantoprazole 40 mg oral iw tablet, delayed release (enteric coated) 2 times per day [Active]; Claritin 10 mg Oral tablet daily [Active]; sucralfate 1 gram Oral tablet before meals [Active]; insulin [Active]; - PMHx: 10:12 Diabetes - IDDM; Hypertension; Myocardial infarction; iw 12:09 End stage renal disease; sb4 - PSHx: 10:12 defib; triple bypass; iw - Immunization history:: Adult Immunizations up to date. - Infectious Disease History:: Denies. - Social history:: Smoking status: unknown. Screenin:17 [facility] ED Fall Risk Assessment (Adult) History of falling in the last 3 months, iw including since admission Yes- single mechanical fall (1 pt) Confusion or Disorientation No (0 pts) Intoxicated or Sedated No (0 pts) Impaired Gait No (0 pts) Mobility Assist Device Used No (0 pt) Altered Elimination No (0 pt) Score/Fall Risk Level 0 - 2 = Low Risk Oriented to surroundings, Maintained a safe environment. Abuse screen: Denies threats or abuse. Denies injuries from another. Nutritional screening: No deficits noted. Tuberculosis screening: No symptoms or risk factors identified. Assessment: 10:25 General: Appears in no apparent distress. comfortable, slender, well groomed, Behavior kc6 is calm, cooperative, appropriate for age. Pain: Complains of pain in mid-sternal area Pain does not radiate. Pain began suddenly. Neuro: Level of Consciousness is awake, alert, obeys commands, Oriented to person, place, time, situation, Appropriate for age. Cardiovascular: Heart tones S1 S2 present Capillary refill < 3 seconds Rhythm is regular Dialysis shunt: in the right arm, with palpable thrill, with auscultated bruit, with no erythema, with no edema, no bleeding noted. Respiratory: Airway is patent Trachea midline Respiratory effort is even, unlabored, Respiratory pattern is regular, symmetrical. GI: No signs and/or symptoms were reported involving the gastrointestinal system. : No signs and/or symptoms were reported regarding the genitourinary system. EENT: No signs and/or symptoms were reported regarding the EENT system. Derm: No signs and/or symptoms reported regarding the dermatologic system. Skin is intact, is fragile, is thin, with poor turgor Skin is dry, Skin is pale, Skin temperature is warm. Musculoskeletal: No signs and/or symptoms reported regarding the musculoskeletal system. Circulation, motion, and sensation intact. Range of motion: intact in all extremities. 11:25 Reassessment: Patient appears in no apparent distress at this time. No changes from kc6 previously documented assessment. Patient and/or family updated on plan of care and expected duration. Pain level reassessed. Patient is alert, oriented x 3, equal unlabored respirations, skin warm/dry/pink. 12:25 Reassessment: Patient appears in no apparent distress at this time. No changes from kc6 previously documented assessment. Patient and/or family updated on plan of care and expected duration. Pain level reassessed. Patient is alert, oriented x 3, equal unlabored respirations, skin warm/dry/pink. Vital Signs: 10:16 BP 109 / 55; Pulse 90; Resp 24 S; Temp 97.8; Pulse Ox 100% on R/A; Weight 70.31 kg; iw Height 5 ft. 9 in. ; Pain 3/10; 12:47 BP 117 / 62; Pulse 96; Resp 24 S; Pulse Ox 98% on R/A; kc6 10:16 Body Mass Index 22.89 (70.31 kg, 175.26 cm) iw 10:16 Pain Scale: Adult iw ED Course: 10:08 Patient arrived in ED. im 10:08 Thao Bales PA-C is PHCP. sb4 10:08 Juana Mccann MD is Attending Physician. sb4 10:12 Triage completed. iw 10:15 Arm band placed on. iw 10:15 Patient has correct armband on for positive identification. Bed in low position. Call kc6 light in reach. Side rails up X2. Adult w/ patient. desk monitor on. Pulse ox on. NIBP on. Door closed. Noise minimized. Lights dimmed. Warm blanket given. Pillow given. Verbal reassurance given. 10:24 Initial lab(s) drawn, by me, sent to lab. Inserted saline lock: 22 gauge in left wrist, zm using aseptic technique. Blood collected. Flushed with 10 mL NS. 10:24 Troponin HS Sent. zm 10:24 PT-INR Sent. zm 10:24 NT PRO-BNP Sent. zm 10:24 Magnesium Sent. zm 10:24 LFT's Sent. zm 10:24 CBC with Diff Sent. zm 10:24 Basic Metabolic Panel Sent. zm 10:24 Lipase Sent. zm 10:25 Patient maintains SpO2 saturation greater than 95% on room air. kc6 11:14 Hallie Daily, RN is Primary Nurse. kc6 11:26 XRAY Chest (1 view) In Process Unspecified. EDMS 11:49 CT Chest Abdomen Pelvis W/O Contrast In Process Unspecified. EDMS 12:06 Luca Vital PA is Hospitalizing Provider. sb4 14:55 No provider procedures requiring assistance completed. Patient admitted, IV remains in kc6 place. Administered Medications: 12:35 Drug: Aspirin PO Chewable Tablet 162 mg PO once Route: PO; kc6 12:48 Follow up: Response: No adverse reaction kc6 12:35 Drug: Pantoprazole IVP 40 mg IVP once Route: IVP; Site: left forearm; kc6 12:48 Follow up: Response: No adverse reaction kc6 Medication: 14:55 VIS not applicable for this client. kc6 Outcome: 12:06 Decision to Hospitalize by Provider. sb4 14:55 Admitted to Med/surg accompanied by tech, via stretcher, with chart, kc6 14:55 Condition: good 14:55 Instructed on the need for admit, 14:56 Patient left the ED. kc6 Signatures: Dispatcher [employer] EDRachel Alvarado, CATHY RN Angelina Mcdaniels Kaitlyn, RN RN kc6 Thao Bales PABryson PABryson sb4 Lilo Martino Corrections: (The following items were deleted from the chart) 10:28 10:16 Pulse 90bpm; Resp 19bpm; Pulse Ox 100% RA; Temp 97.8F; kevin brown
[2024-07-26] MEDS ORDERED: ASPIRIN 81 MG CHEWABLE TABLET ONE (12:26)
[2024-07-26] MEDS ORDERED: PANTOPRAZOLE 40 MG INJ ONE (12:26)
--- NOTE | 2024-07-26 14:11 | P.HP ---
Certification for Inpatient Patient admitted to: Observation With expected LOS: <2 Midnights Patient will require the following post-hospital care: None Practitioner: I am a practitioner with admitting privileges, knowledge of patient current condition, hospital course, and medical plan of care. Services: Services provided to patient in accordance with Admission requirements found in Title 42 Section 412.3 of the Code of Federal Regulations Patient History Date of Service: 07/26/24 Reason for admission: Chest pain r/o History of Present Illness: Srinivasa Hernandez is a 64 year old male with Pmhx DM- IDDM, HTN, GERD, ESRD with dialysis MWF, [place] s/p 3 vessel bypass who presents to the ED with chest pain that began at 7 am this morning. He reports the chest pain felt the same as his chest pain that required a CABG in 2013. During the examination, he is belching while conversing, denies radiating and reproducible chest pain. Laboratory evaluation significant for left shift neutrophils 80.5, H&H 8.5/26.1, sodium 132, BUN/creatinine 19/3.25, GFR 21, serum glucose 256, BNP 84,029. Chest x-ray reports "Moderate to large left pleural effusion. Small right pleural effusion. Hazy opacities in both lung bases may represent pulmonary edema. Heart is moderately enlarged. Sternotomy wires are present. Single-lead pacer/defibrillator device" CT CAP Reports Bilateral pleural effusions, greater on the left as detailed with moderate basilar lung consolidation. Moderate ascites. Prominent gastric distention noted." Srinivasa will be admitted to hospitalist service for further evaluation and treatment of Chest pain r/o and ESRD. Allergies No Known Drug Allergies Allergy (Verified 12/24/19 23:03) Unknown Home Medications: Aspirin [Aspir-Low] 81 mg PO DAILY 06/22/18 Clopidogrel Bisulfate [Plavix*] 75 mg PO DAILY 06/22/18 Insulin Degludec [Tresiba Flextouch U-100] 24 unit SQ DAILY 06/22/18 Metoprolol Succinate 1 tab PO DAILY 06/22/18 Nitroglycerin [Nitrostat*] 0.4 mg SL PRN PRN 06/22/18 Pantoprazole Sodium [Protonix] 40 mg PO DAILY 30 Days #30 tablet. 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 - Family History Mother -: Heart disease, Lung disease - Social History Smoking Status: Never smoker Alcohol use: Yes CD- Drugs: No Caffeine use: No Review of Systems Other: Per HPI Physical Examination - Physical Exam General: Alert, In no apparent distress, Oriented x3 HEENT: Atraumatic, Normocephalic, PERRLA Neck: Supple Respiratory: Clear to auscultation bilaterally, Normal air movement Cardiovascular: No edema, Regular rate/rhythm, Systolic murmur Capillary refill: <2 Seconds Gastrointestinal: Normal bowel sounds Musculoskeletal: No clubbing Integumentary: No rashes Neurological: Normal speech, Normal tone - Studies Laboratory Data (last 24 hrs) 07/26/24 07/26/24 07/26/24 10:22 10:22 10:22 WBC 7.10 Hgb 8.5 L Hct 26.1 L Plt Count 247 PT 13.6 H INR 1.20 Sodium 132 L Potassium 3.7 BUN 19 H Creatinine 3.25 H Glucose 256 H Magnesium 2.1 Total Bilirubin 0.5 AST 16 ALT < 14 L Alkaline Phosphatase 119 H Lipase 27 Assessment and Plan - Plan Assessment and plan Chest pain rule out CAD s/p CABG (2013) Svere pulmonary HTN - EKG: No obvious ST segment changes - troponin 17.3, Serial pending - Ordered transthoracic echocardiogram - Consult Cardiology - recommendations appreciated - S/P aspirin 324 mg PO x 1 in ED - Start daily baby aspirin and statin - Symptom control with PRN acetaminophen, morphine - continuous telemetry - TSH/FreeT4, A1C, lipid panel pending Fluid volume overload 2/2 CKD 4 with dialysis MWF Hyponatremia - Dr. Holley consulted - Lasix IV 40 mg twice daily - I and O, daily weights Anemia of chronic disease - H&H 8.5/26.1 - Monitoring a.m. labs - Transfuse as needed Diabetes mellitusIDDM -Serum glucose 256 - Accu-Chek with sliding scale insulin GERD -Protonix BID DVT PPx heparin Full code LOS 24-hour OBS Discharge Plan: Home Plan to discharge in: 48 Hours - Advance Directives Does patient have a Living Will: No Does patient have a Durable POA for Healthcare: No
[2024-07-26] MEDS: FUROSEMIDE 40 MG/4 ML VIAL IV SCH (14:42)
--- NOTE | 2024-07-26 14:45 | P.PN ---
This is an attestation to LIQUIFIED NATURAL GAS TECHNICIAN note. Subjective: Presented with chest pain, better now. Complaining of on and off shortness of breath. had Nausea, better now. No abdominal pain. No obvious bleeding. Looks comfortable in the bed. Objective: General appearance: Alert and comfortable CVS: Normal S1 and S2 Lungs: Clear to auscultation bilaterally Abdomen: Soft, bowel sounds present, no tenderness Extremities: mild b/l lower extremity edema 64-year-old patient with chest pain, troponin negative, chest x-ray and CTA chest and abdomen showed volume overload and ascites, follow-up on repeat troponins, cardiology consult requested, get an echo, start IV Lasix, I think he will need extra run of dialysis, discussed with nephrology. End-stage renal disease, dialysis as per nephrology. Chronic anemia, monitor closely. Full code. Plan Discussed with the patient, answered all questions.
[2024-07-26] MEDS: ENOXAPARIN 30 MG/0.3 ML SQ SCH (15:00)
--- NOTE | 2024-07-26 15:38 | P.PN ---
Brief Renal note (chart review only, full note to follow) Recently declared ESRD and initiated on HD 2nd to progressive CKD in the setting of severe CMP/systolic CHF, other. Recent course complicated by upper GI bleeding episodes. Did receive OP HD yesterday, left below EDW. Imaging shows pleural effusions, ascites likely c/w with his CHF, low albumin state, other. Will plan for SEQ/UF alone dialysis treatment today. Metab profile acceptable.
[2024-07-26] MEDS: ATORVASTATIN 40 MG TAB PO SCH (22:05)
[2024-07-26] MEDS: SODIUM CHLORIDE 0.9% 10ML INJ IV PRN (22:05)
[2024-07-26] MEDS: PANTOPRAZOLE 40 MG INJ IVP SCH (22:05)
[2024-07-26 22:57] VITALS: BMI 22.8
[2024-07-27 04:53] LABS: Absolute Eosinophils 0.1 K/uL (0-0.5); Absolute Lymphocytes (CBC) 0.5 K/uL (0.7-4.9); Absolute Monocytes 0.7 K/uL (0.1-1.3); Absolute Neutrophil 3.7 K/uL (1.8-8.0); Basophils % 0.7 % (0-1.3); Eosinophils % 2.6 % (0-4.4); Hematocrit 23.2 % (39.6-49.0); Hemoglobin 7.6 g/dL (13.6-17.9); Lymphocytes % 10.4 % (15.3-44.8); MCH 28.6 pg (27.0-35.0); MCHC 32.8 g/dL (32.0-36.0); MCV 87.2 fL (80-100); MPV 8.3 fL (7.6-11.3); Monocytes % 13.1 % (3.3-12.3); Neutrophils % 73.2 % (41.7-73.7); Nucleated Red Blood Cells % 0.1 % (0-0); Platelets 210 thou/uL (152-406); RBC Red Blood Cell Count 2.66 M/uL (4.33-5.43); Red Cell Distribution Width 17.2 % (12.1-15.2)
[2024-07-27 05:22] LABS: Anion Gap 8.7 mEq/L (5.0-15.0); Magnesium 2.1 mg/dL (1.6-2.4); Phosphorus 1.6 mg/dL (2.5-4.9); Potassium 3.7 mEq/L (3.5-5.1)
[2024-07-27 05:25] LABS: Thyroid Stimulating Hormone 5.02 uIU/mL (0.358-3.740)
[2024-07-27] MEDS: POTASS/SODIUM PHOSPHATE 1 PKT POWD.PACK PO SCH (09:02)
[2024-07-27] MEDS: ASPIRIN EC 81 MG TAB PO SCH (10:35)
--- NOTE | 2024-07-27 11:06 | P.PN ---
This is an attestation to NEW ACCOUNTS REPRESENTATIVE note. Subjective: No chest pain or shortness of breath today, better with dialysis yesterday. No nausea or vomiting. No abdominal pain. No obvious bleeding. Looks comfortable in the bed. Objective: General appearance: Alert and comfortable CVS: Normal S1 and S2 Lungs: Clear to auscultation bilaterally Abdomen: Soft, bowel sounds present, no tenderness Extremities: lower extremity edema better today 64-year-old patient with chest pain, troponin negative, chest x-ray and CTA chest and abdomen showed volume overload and ascites, repeat troponins neg, cardiology consult requested, f/u echo, started on IV Lasix, feels better with extra run of dialysis. End-stage renal disease, dialysis as per nephrology. Chronic anemia, monitor closely. Plan Discussed with the patient, answered all questions.
--- NOTE | 2024-07-27 12:18 | P.PN ---
Date of Service: 07/27/24 Subjective Reports feeling better, and he hopes to be dialyzed again today if possible Denies chest pain and SOB Dr. Tejada following ROS 10 point ROS as noted above, otherwise negative Physical Exam General: Alert and Oriented x3, NAD HEENT: Atraumatic, Normocephalic, PERRLA Neck: Supple Respiratory: Clear BBS, Normal air movement, on RA Cardiovascular: No edema, RRR, Systolic murmur Capillary refill: <2 Seconds Gastrointestinal: Normal bowel sounds Musculoskeletal: No clubbing Integumentary: No rashes Neurological: Normal speech, Normal tone Vitals Reviewed Problem list Chest pain rule out CAD s/p CABG (2013) Severe pulmonary HTN Fluid volume overload 2/2 CKD 4 with dialysis MWF Hyponatremia Anemia of chronic disease Diabetes mellitusIDDM GERD Assessment and Plan Chest pain rule out CAD s/p CABG (2013) Severe pulmonary HTN - EKG: No obvious ST segment changes - troponin 17.3/13.2/12.0 - Ordered transthoracic echocardiogram - Consult Cardiology - recommendations appreciated - S/P aspirin 324 mg PO x 1 in ED -Continue daily baby aspirin and statin - Symptom control with PRN acetaminophen, morphine - continuous telemetry - TSH/FreeT4 5.020/1.25, A1C pending, lipid panel WNL Fluid volume overload 2/2 CKD 4 with dialysis MWF Hyponatremia - Dr. Holley consulted - Lasix IV 40 mg twice daily - I and O, daily weights -Dialysis (07/26) with 1800 off Anemia of chronic disease - H&H 7.6/23.2 - Monitoring a.m. labs - Transfuse as needed Diabetes mellitusIDDM -Serum glucose 256 - Accu-Chek with sliding scale insulin GERD -Protonix BID DVT PPx heparin Full code LOS 24-hour OBS
--- NOTE | 2024-07-27 12:55 | P.CNS ---
Date of Consult: 07/27/24 Reason for Consult: ESRD, continuation of HD, pleural effusions, ascites Chief Complaint: Chest pain r/o History of Present Illness: Pt is a 64 yo HM with a hx of ischemic CMP, severe systolic CHF, HTN, DM, progressive CKD leading to declaration of ESRD and initiation of HD earlier this year at [facility] but then admitted twice since over a short period of time with upper GI bleed and findings of a large either gastric ulcer with possible contained perforation that was treated conservatively per review of records given his high surgical risk and pt has been on PPI/Carafate with slow improvement since. Pt's last OP HD was on Sun, he reports episode of dyspepsia and nausea/vomiting since leading him to come in. He reports last vomiting episode yesterday AM, he denies current epigastric pain. He denies coffee ground emesis or melena. He is tolerating PO intake. Allergies No Known Drug Allergies Allergy (Verified 12/24/19 23:03) Unknown Home Medications: Pantoprazole Sodium [Protonix] 40 mg PO DAILY 30 Days #30 tablet. 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 - Family History Mother Medical History: Heart disease, Lung disease, GI disease, Diabetes, Kidney disease - Social History Smoking Status: Unknown if ever smoked Alcohol use: Yes CD- Drugs: No Caffeine use: No Place of Residence: Home Review of Systems General: Weakness Eyes: Unremarkable ENT: Unremarkable Respiratory: Shortness of Breath Cardiovascular: As per HPI Gastrointestinal: Nausea, Vomiting Musculoskeletal: Unremarkable Neurological: Unremarkable Physical Examination Temp Pulse Resp BP Pulse Ox 97.5 F 89 18 113/66 100 07/27/24 12:00 07/27/24 12:00 07/27/24 12:07/27/24 12:07/27/24 12:00 General: In no apparent distress, Cooperative HEENT: Atraumatic, Normocephalic Neck: Supple, Other (Rt IJ TDC) Respiratory: Normal air movement, Other (non tachypned, reduced at bases) Cardiovascular: No edema, Regular rate/rhythm, Other Gastrointestinal: Soft and benign, No tenderness, No guarding, Other (mild distention) Integumentary: No rashes, No tenderness/swelling Neurological: Normal speech, Normal tone, Normal affect Conclusions/Impression: A/P) 1. Recently declared ESRD 2nd to chronic conditions, on iHD MWF. SEQ/UF alone dialysis performed last night. Next HD tmrw 2. Ischemic CMP, severe systolic CHF. Pleural effusios NOS, ascites. Cont to establish dry weight, UF on HD as tolerated. Cont lasix as non anuric. Clarify if taking Entresto at home. 3. Hypotension of dialysis -better recently, on Midodrine support, clarify if still sierra entresto for the cardiomyopathy 4. Recent acute loss anemia on chronic 2nd to CKD, recent upper GI bleed, PUD - Hb remains quite low, iron counts low last mo, will cont iron series, will dose GREGORY tmrw, with his cardiac history, may want to maintain Hb > 8, will review with IM team about consulting GI for repeating scope to assess healing of the gastric ulcer. Cont PPI +/- carafate. Anti platelet therapy remains on hold other than ASA
[2024-07-27] MEDS: SOD FERRIC GLUC COMPLX/SUCROSE 125 MG in NA CHLORIDE 0.9% 100 ML IV SCH (15:00)
--- NOTE | 2024-07-27 18:17 | P.CNS ---
Date of Consult: 07/27/24 Chief Complaint: Chest pain r/o History of Present Illness: Patient with PMH of CAD s/p CABG 2013, advanced systolic and diastolic heart failure and severey pulmonary HTN, ESRD on dialysis, report having an episode of chest pain, epigastric region, associated with nausea and dyspepsia, denies shoulder, neck pain, no palpitations, no syncope. Allergies No Known Drug Allergies Allergy (Verified 12/24/19 23:03) Unknown Home medications list reviewed: Yes Home Medications: Pantoprazole Sodium [Protonix] 40 mg PO DAILY 30 Days #30 tablet. 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 - Family History Mother Medical History: Heart disease, Lung disease, GI disease, Diabetes, Kidney disease - Social History Smoking Status: Unknown if ever smoked Alcohol use: Yes CD- Drugs: No Caffeine use: No Place of Residence: Home Review of Systems 10-point ROS is otherwise unremarkable Physical Examination Temp Pulse Resp BP Pulse Ox 98.0 F 98 H 18 101/59 L 99 07/27/24 16:00 07/27/24 16:00 07/27/24 16:00 07/27/24 16:07/27/24 16:00 General: Alert, In no apparent distress HEENT: Atraumatic, PERRLA, Mucous membr. moist/pink, EOMI, Sclerae nonicteric Neck: Supple, 2+ carotid pulse no bruit, No LAD, Without JVD or thyroid abnormality Respiratory: Clear to auscultation bilaterally, Normal air movement Cardiovascular: Regular rate/rhythm, Normal S1 S2 Gastrointestinal: Normal bowel sounds, No tenderness Musculoskeletal: No tenderness Integumentary: No rashes Neurological: Normal gait, Normal speech, Normal tone, Normal affect Lymphatics: No axilla or inguinal lymphadenopathy - Problems (1) Chest pain Onset Date: 09/18/14 Current Visit: No Status: Acute Plan: patient is not having any active chest pain at this moment, troponin negative x3. ACS ruled out No further inpatient cardiac testing needed. Outpatient follow up with cardiology. (2) CHF (congestive heart failure) Onset Date: 02/26/14 Current Visit: No Status: Acute Plan: chronic combined systolic and diastolic. Patient BP is soft to tolerate GDMT continue lasix and continue volume adjustment through dialysis. Qualifiers: Heart failure type: unspecified Heart failure chronicity: chronic Qualified Code(s): I50.9 - Heart failure, unspecified
[2024-07-28 03:43] LABS: Hepatitis B Surface Ab - Quant < 3.10 mIU/mL (<8.0); Hepatitis B surface AG Interp. Nonreactive (Nonreactive)
[2024-07-28 03:45] LABS: HBsAG Nonreactive Report Report
[2024-07-28 06:14] LABS: Absolute Eosinophils 0.1 K/uL (0-0.5); Absolute Lymphocytes (CBC) 0.5 K/uL (0.7-4.9); Absolute Monocytes 0.5 K/uL (0.1-1.3); Absolute Neutrophil 2.9 K/uL (1.8-8.0); Basophils % 0.8 % (0-1.3); Eosinophils % 2.2 % (0-4.4); Hematocrit 24.5 % (39.6-49.0); Lymphocytes % 13.1 % (15.3-44.8); MCH 28.2 pg (27.0-35.0); MCHC 32.5 g/dL (32.0-36.0); MCV 86.8 fL (80-100); MPV 8.3 fL (7.6-11.3); Neutrophils % 70.9 % (41.7-73.7); Nucleated Red Blood Cells % 0.1 % (0-0); Platelets 241 thou/uL (152-406); RBC Red Blood Cell Count 2.82 M/uL (4.33-5.43); Red Cell Distribution Width 17.5 % (12.1-15.2)
[2024-07-28 06:26] LABS: Anion Gap 9.7 mEq/L (5.0-15.0); Potassium 3.7 mEq/L (3.5-5.1)
[2024-07-28] MEDS ORDERED: MIDODRINE HCL 5 MG TABLET PO PRN (07:00)
--- NOTE | 2024-07-28 11:32 | EKG ---
Test Date: 2024-07-26 Test Time: 10:12:44 It Data Architect: POOJA MEASUREMENT RESULTS: Intervals: Rate: 91 WI: 156 QRSD: 130 QT: 376 QTc: 462 [place]: P: 50 WI: 156 QRS: -69 T: 92 INTERPRETIVE STATEMENTS: Normal sinus rhythm Possible Left atrial enlargement Left axis deviation Left bundle branch block Abnormal ECG Compared to ECG 04/24/2022 19:55:08 Left bundle-branch block now present Myocardial infarct finding no longer present Electronically Signed On 07-28-24 11:29:23 CDT by Marcelino Cantu
--- NOTE | 2024-07-28 12:19 | ECHO ---
HEIGHT: 5 ft 9 in WEIGHT: 155 lb 0 oz DATE OF STUDY: 07/28/[address]: Brittney Nuñez NP 2-DIMENSIONAL: YES M.MODE: YES DOPPLER: YES COLOR FLOW: YES TDS: NO PORTABLE: YES DEFINITY: NO BUBBLE STUDY: NO DIAGNOSIS: CHEST PAIN CARDIAC HISTORY: CATHERIZATION:YES SURGERY: NO PROSTHETIC VALVE: NO PACEMAKER: YES MEASUREMENTS (cm) DIASTOLIC (NORMALS) SYSTOLIC (NORMALS) IVSd 1.0 (0.6-1.2) LA Diam 4.0 (1.9-4.0) LVEF 10-15% LVIDd 5.1 (3.5-5.7) LVIDs 4.6 (2.0-3.5) %FS 10% LVPWd 1.2 (0.6-1.2) Ao Diam 2.9 (2.0-3.7) 2 DIMENSIONAL ASSESSMENT: RIGHT ATRIUM: NORMAL LEFT ATRIUM: DILATED RIGHT VENTRICLE: NORMAL LEFT VENTRICLE: DILATED TRICUSPID VALVE: MILD TRICUSPID REGURGITATION MITRAL VALVE: MILD MITRAL REGURGITATION PULMONIC VALVE: NORMAL AORTIC VALVE: NORMAL PERICARDIAL EFFUSION: MILD CIRCUMFRINTAL AORTIC ROOT: NORMAL LEFT VENTRICULAR WALL MOTION: SEVERE GLOBAL HYPOKINESIS. DOPPLER/COLOR FLOW: GRADE III DIASTOLIC DYSFUNCTION. COMMENTS: 1. SEVERELY REDUCED LEFT VENTRICULAR SYSTOLIC FUNCTION. LEFT VENTRICULAR EJECTION FRACTION 10-15%. SEVERE GLOBAL HYPOKINESIS. 2. RESTRICTIVE DIASTOLIC FUNCTION. 3. LARGE PLEURAL EFFUSION. 4. NORMAL FILLING PRESSURE. RIGHT ATRIAL PRESSURE 0-5 mmHg. TECHNOLOGIST: EUGENIO DOWNS
--- NOTE | 2024-07-28 12:39 | P.PN ---
Date of Service: 07/28/24 Subjective Some SOB today Dr. Resendiz will perform EGD Dialysis today Denies Fever, chills, and abdominal pain Dr. Tejada following ROS 10 point ROS as noted above, otherwise negative Physical Exam General: AAOx3, NAD HEENT: Atraumatic, Normocephalic, PERRLA Respiratory: Clear BBS, nonlabored breathing, on RA Cardiovascular: No edema, Mild tachycardia, Systolic murmur Capillary refill: <2 Seconds Gastrointestinal: Normal bowel sounds Musculoskeletal: No clubbing Integumentary: No rashes Neurological: Normal speech, Normal tone Vitals Reviewed Problem list Chest pain rule out CAD s/p CABG (2013) Severe pulmonary HTN Fluid volume overload 2/2 ESRD with dialysis MWF Hyponatremia Anemia of chronic disease Diabetes mellitusIDDM GERD Assessment and Plan Chest pain rule out CAD s/p CABG (2013) Severe pulmonary HTN - EKG: No obvious ST segment changes - troponin 17.3/13.2/12.0 - Ordered transthoracic echocardiogram - Consult Cardiology - recommendations appreciated - S/P aspirin 324 mg PO x 1 in ED -Continue daily baby aspirin and statin - Symptom control with PRN acetaminophen, morphine - continuous telemetry-no acute events overnight - TSH/FreeT4 5.020/1.25, A1C 6, lipid panel WNL Fluid volume overload 2/2 ESRD 4 with dialysis MWF Hyponatremia - Dr. Holley following - Lasix IV 40 mg twice daily - I and O, daily weights -Dialysis (07/26) with 1800 off Anemia of chronic disease - H&H 12/14.5 - Monitoring a.m. labs - Transfuse as needed Diabetes mellitusIDDM -Serum glucose 178 - Accu-Chek with sliding scale insulin GERD -Protonix BID DVT PPx heparin Full code LOS 24-hour OBS
[2024-07-28 14:13] LABS: Specific Gravity 1.024 (1.005-1.030); Sqamous Epithelial <5 /HPF (None Seen); Urine Bacteria None Seen /HPF (<20); Urine Bilirubin 1+ (Negative); Urine Blood 1+ (Negative); Urine Clarity Extremely Turbid (Clear); Urine Color Yellow (Yellow); Urine Culture Reflex Order NOT NEEDED; Urine Glucose TRACE (Negative); Urine Ketones NEGATIVE (Negative); Urine Microscopic Reflex YN ORDER UMIC; Urine Mucus Slight /HPF (None Seen); Urine Nitrite NEGATIVE (Negative); Urine Protein 1+ (Negative); Urine Urobilinogen 1+ (Normal); Urine pH 5.5 (5.0-7.0)
--- NOTE | 2024-07-28 14:56 | P.PN ---
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 Subjective: No chest pain. c/o some shortness of breath today. No nausea or vomiting. No abdominal pain. No obvious bleeding. Looks comfortable in the bed. Objective: General appearance: Alert and comfortable CVS: Normal S1 and S2 Lungs: Clear to auscultation bilaterally Abdomen: Soft, bowel sounds present, no tenderness Extremities: mild lower extremity edema 64-year-old patient with chest pain, troponin negative, chest x-ray and CTA chest and abdomen showed volume overload and ascites, repeat troponins neg, cardiology consult requested, f/u echo, started on IV Lasix, no further w/u per cardiology, felt better with extra run of dialysis over the weekend but feels SOB again today, plan for routine dialysis today. End-stage renal disease, dialysis as per nephrology. Chronic anemia, monitor closely, GI to see re: repeat endooscopy for f/u. Plan Discussed with the patient, answered all ?'s. d/w family at bedside. Probably home tomorrow, if symptoms better and cleared by consultants, he may need extra run of dialysis tomorrow as well prior to discharge depending on volume status. Physical Examination - Vital Signs Temperature: 97.7 F Blood Pressure: 110/56 Pulse: 92 Respirations: 20 Pulse Ox (%): 90 - Studies Laboratory Data (last 24 hrs) 07/28/24 07/28/24 05:46 05:46 WBC 4.10 L Hgb 8.0 L Hct 24.5 L Plt Count 241 Sodium 130 L Potassium 3.7 BUN 30 H Creatinine 4.40 H Glucose 178 H
[2024-07-28] MEDS: NA CHLORIDE 0.9% 500 ML ONE (17:46)
[2024-07-28] MEDS ORDERED: Phenylephrine HCl 10 MG/ML 1 ML VIAL ONE (18:52)
[2024-07-28] MEDS ORDERED: propofoL 200 MG/20 ML VIAL IV ONE (18:52)
[2024-07-28] MEDS ORDERED: LIDOCAINE 1% MPF 5 ML VIAL ONE (19:06)
[2024-07-28] MEDS: NEPRO SHAKE 237 ML CAN PO SCH (21:00)
--- NOTE | 2024-07-28 21:02 | P.PN ---
Date of Service: 07/28/24 Vital Signs Temp Pulse Resp BP Pulse Ox 97.5 F 91 H 19 99/53 L 90 L 07/28/24 19:25 07/28/24 19:40 07/28/24 19:40 07/28/24 19:40 07/28/24 14:56 Medications Aspirin (Aspirin Ec 81 Mg Tab) 81 mg PO DAILY [facility] Last Admin: 07/28/24 09:00 Dose: Not Given Atorvastatin Calcium (Atorvastatin 40 Mg Tab) 40 mg PO BEDTIME [facility] Last Admin: 07/27/24 21:42 Dose: 40 mg Enoxaparin Sodium (Enoxaparin 30 Mg/0.3 Ml) 30 mg SQ DAILY [facility] Last Admin: 07/28/24 09:00 Dose: Not Given Furosemide (Furosemide 40 Mg/4 Ml Vial) 40 mg IV BIDL [facility] Last Admin: 07/28/24 17:00 Dose: Not Given Ferric Sodium Gluconate Complex 125 mg/ Sodium Chloride 110 mls @ 100 mls/hr IV DAILY [facility] Stop: 07/29/24 10:05 Last Admin: 07/28/24 09:17 Dose: 110 mls Midodrine (Midodrine Hcl 5 Mg Tablet) 5 mg PO EVERY HD PRN PRN Reason: FOR BLOOD PRESSURE SUPPORT Pantoprazole Sodium (Pantoprazole 40 Mg Inj) 40 mg IVP Q12HR [facility]; Protocol Last Admin: 07/28/24 09:16 Dose: 40 mg Sodium Chloride (Sodium Chloride 0.9% 10ml Inj) 10 ml IV UD PRN PRN Reason: Diluant Last Admin: 07/26/24 22:05 Dose: 10 ml Lab Results (last 24 hrs) 07/28/24 05:46: Sodium 130 L, Potassium 3.7, Chloride 96 L, Carbon Dioxide 28, Anion Gap 9.7, BUN 30 H, Creatinine 4.40 H, Est GFR (CKD-EPI) 14 L, Glucose 178 H, Calcium 8.4 L 07/28/24 05:46: WBC 4.10 L, RBC 2.82 L, Hgb 8.0 L, Hct 24.5 L, MCV 86.8, MCH 28.2, MCHC 32.5, RDW 17.5 H, Plt Count 241, MPV 8.3, Neutrophils % 70.9, Lymphocytes % 13.1 L, Monocytes % 13.0 H, Eosinophils % 2.2, Basophils % 0.8, Absolute Neutrophils 2.9, Absolute Lymphocytes 0.5 L, Absolute Monocytes 0.5, Absolute Eosinophils 0.1, Absolute Basophils 0.0 07/27/24 04:21: Hemoglobin A1c 6.0 07/26/24 21:30: Hep Bs Antigen Nonreactive, Hep B Surface Ag Comm Report, Hep Bs Antibody Nonreactive, Hep Bs Antibody, Quant < 3.10 Assessment/ Plan: Nephrology No dyspnea No chest pain and feeling better No acute events overnight Vitals, medications, blood work and imaging reviewed in the chart NAD. MMM. NCAT. Normal Respiratory Effort. S1S2. ND Abd. No C/C/E. No rash. AAO. Normal speech. ESRD on HD -HD today Chronic Hypotension -Continue Midodrine Systolic CHF, A/C Ischemic CMP -UF with HD Anemia in CKD Hx GI Bleed -Continue IV Iron -Retacrit X1 -EGD planned Hospitalist note reviewed
[2024-07-28] MEDS: EPOETIN ALFA-EPBX 10,000 UNIT/ML VIAL SQ ONE (21:17)
--- NOTE | 2024-07-29 00:38 | CON ---
Date of Consultation: 07/28/2024 Reason For Consultation: Anemia and history of recent GI bleed. Hemoglobin down to 7.6. History Of Present Illness: This patient is a 64-year-old male with history of diabetes; hy pertension; coronary artery disease; status post VA; congestive heart failure with ejection fraction recently noted in the hospital 10%; end-stage renal disease; severe pulmonary hypertension; gastric r eflux disease; anemia of chronic disease; three-vessel CABG and defibrillator. The patient presented to the hospital with chest pain, shortness of breath, and nausea. An echocardiogram was found to [place] ve an ejection fraction of 10% CT of the chest, with CT angiogram of the chest and abdomen showed volume overload and ascites. The patient was noted to have history of recent GI bleeding; st ates that he had not seen anything recently, but it is noted he has had a low hemoglobin of 7.6 since in the hospital. for further evaluation with the gastroenterology. I am asked to ilya carroll. Past Medical History: Significant for diabetes, hypertension, coronary artery disease, status post m yocardial infarction, 3-vessel CABG, defibrillator, congestive heart failure with ejection fraction n oted in the hospital at 10%, end-stage renal disease, severe pulmonary hypertension, acid reflux dise ase, anemia of chronic disease in the past, also has history of cardiac stents, gout. Medicines: At home, aspirin, Plavix, insulin, metoprolol, Nitrostat, Protonix. Allergies: NKDA. Social History: He is , 3 children. No tobacco. No alcohol. Family History: Father of myocardial infarction. Mother of cancer. Also had heart diseas e and lung disease per chart review. Review of Systems: The patient had chest pain, shortness of breath, dyspnea on exertion on admission, hyponatremia. He denies any hematemesis, coffee ground emesis, melena, hematochezia, epistaxis, hemoptysis, hematuria, dysuria, polydipsia, polyuria, Alzheimer's, depression, anxiety, muscle/joint aches, back aches. No seizure or syncope. Physical Examination: Vital Signs: The patient is 5 feet 9 inches, 155 pounds, BMI 22.9 kg/square meter. Temperature 97.7 degrees Fahrenheit, pulse 92, respirations 20, blood pressure 110/56, O2 saturation 98% o n room air. HEENT: Normocephalic, atraumatic. Anicteric. Pupils equal, round, and reactive to light, though th e patient's vision is limited. He stares into space. Very poor vision. Oropharynx is clear. Neck: Supple. Respirations: Decreased breath sounds at bases. Cardiac: Regular rate and rhythm, though slightly tachycardic. Abdomen: Positive bowel sounds. Soft, nondistended, nontender. Somewhat obese. Question equivocal fluid wave. Extremities: Mild edema. Able to move all extremities. Laboratory Data: The patient has a hemoglobin of 4.1, hematocrit of 8.0 up from 7.6 yesterday, hemat ocrit of 25, MCV of 87, platelets of 241, polys of 71%, lymphocytes 30%, monocytes 13%, eosinophils 2 %. PT of 13.6, INR of 1.2. Sodium 130, potassium 3.7, chloride 96, bicarb 28, BUN of 30, creatinine of 4.4, glucose 178. Calcium 8.4 phosphorus 1.6, low magnesium 2.1. Troponin I of 12. Triglycerides 105, cholesterol 88, LDL 45, HDL 22. TSH 5.02, free T4 normal at 1.25. B-type natriur etic peptide elevated at 84,029. Total protein 7.5, albumin 2.0, globulin 5.5, lipase 27. AST 16, A LT less than 14, alkaline phosphatase 119. Troponin I is 17.3. Total bilirubin 0.5, direct bilirubi n 0.3, indirect bilirubin 0.2. UA: Trace glucose, 1+ blood, 1+ bilirubin, 1+ urobilinogen, 75 leuko cyte esterase, 5 to 10 RBCs, 5 to 10 white cells, less than 5 squamous epithelial cells, h yaline casts, 1+ protein. Negative hepatitis B serologies. Chest CT abdomen and pelvis, CT angiogram, impression: Bilateral pleural effusions, greater on the left bibasilar lung consolidation, moderate ascites, prominent gastric distention noted. Impression: 1. Anemia. 2. History of recent gastrointestinal bleed. Hemoglobin 7. No prior colonoscopy, but has left ventr icular ejection fraction of 10% or less. 3. Hyponatremia, sodium 130. 4. History of diabetes. 5. Hypertension. 6. Coronary artery disease, status post myocardial infarction, three-vessel coronary artery bypass gr afting, defibrillator. 7. Congestive heart failure with ejection fraction 10%. 8. End-stage renal disease. 9. Severe pulmonary hypertension. 10. Gastroesophageal reflux disease. 11. Anemia of chronic disease. Recommendations: 1. EGD. 2. Continue IV fluids in general with CHF and end-stage renal disease. 3. PPI therapy. 4. Keep the patient n.p.o. for procedure. KIM/KIM Voice ID: [id number] Report ID: [id number]
[2024-07-29 04:57] LABS: Absolute Eosinophils 0.1 K/uL (0-0.5); Absolute Lymphocytes (CBC) 0.5 K/uL (0.7-4.9); Absolute Monocytes 0.6 K/uL (0.1-1.3); Absolute Neutrophil 4.6 K/uL (1.8-8.0); Basophils % 0.6 % (0-1.3); Eosinophils % 1.2 % (0-4.4); Hemoglobin 7.9 g/dL (13.6-17.9); Lymphocytes % 7.8 % (15.3-44.8); MCH 28.6 pg (27.0-35.0); MCHC 32.8 g/dL (32.0-36.0); MCV 87.1 fL (80-100); MPV 8.4 fL (7.6-11.3); Neutrophils % 79.4 % (41.7-73.7); Nucleated Red Blood Cells % 0.1 % (0-0); Platelets 241 thou/uL (152-406); RBC Red Blood Cell Count 2.76 M/uL (4.33-5.43); Red Cell Distribution Width 17.6 % (12.1-15.2)
[2024-07-29 05:13] LABS: Anion Gap 7.6 mEq/L (5.0-15.0); Potassium 3.6 mEq/L (3.5-5.1)
[2024-07-29] MEDS: POTASSIUM 25 MEQ EFFERV TAB PO ONE (09:00)
[2024-07-29] MEDS: DRISDOL (VITAMIN D=ERGOCALCIFEROL) 50000 UNIT CAP PO SCH (09:01)
[2024-07-29] MEDS: MULTIVITAMINS,THERAPEUT 1 TAB PO SCH (09:04)
[2024-07-29] MEDS ORDERED: GLUCAGON 1 MG/VIAL IM PRN (12:46)
[2024-07-29] MEDS: INSULIN REGULAR (HUMAN) 100 UNIT/ML SQ SCH (13:32)
[2024-07-29 13:53] VITALS: O2SAT 99
--- NOTE | 2024-07-29 14:15 | P.PN ---
Subjective Date of Service: 07/29/24 Chief Complaint: Chest pain r/o No acute events overnight. Lying in bed, comfortable. Son at bedside Review of Systems 10-point ROS is otherwise unremarkable General: Unremarkable Eyes: Unremarkable ENT: Unremarkable Respiratory: Unremarkable Cardiovascular: Unremarkable Gastrointestinal: Unremarkable Neurological: Unremarkable Physical Examination - Vital Signs Temperature: 97.5 F Blood Pressure: 105/57 Pulse: 97 Respirations: 20 Pulse Ox (%): 99 - Physical Exam General: Alert HEENT: Atraumatic Neck: Supple Respiratory: Clear to auscultation bilaterally Cardiovascular: No edema Gastrointestinal: Normal bowel sounds Musculoskeletal: No clubbing, No swelling, No contractures Neurological: Normal gait, Normal speech, Normal tone Assessment And Plan - Plan Chest pain rule out CAD s/p CABG (2013) Severe pulmonary HTN -Chest pain resolved - Seen by cardiology, medical therapy recommended Fluid volume overload 2/2 ESRD 4 with dialysis MWF Hyponatremia - Dr. Holley following - Lasix IV 40 mg twice daily -Underwent hemodialysis yesterday with improvement in volume status Anemia of chronic disease - H&H 12/14.5 - Monitoring a.m. 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
[2024-07-29] MEDS ORDERED: INSULIN REGULAR (HUMAN) 100 UNIT/ML SQ SCH (16:30)
--- NOTE | 2024-07-29 20:04 | RAD REPORT ---
EXAM: Chest Abdomen Pelvis W Cont CLINICAL INDICATION: Chest and abdominal pain. Possible duodenal neoplasm TECHNIQUE: CT chest, abdomen and pelvis was performed, with 100 cc Isovue-300 IV contrast, as per de partment protocol. Axial, sagittal and coronal reconstructions were obtained. One or more of the following dose reduction techniques were used: Automated exposure control, adjustment of the mA and/o r kV according to the patient size, and/or iterative reconstruction. Unless otherwise specified, incidental findings do not require dedicated imaging follow-up. [id number]. Oral contrast not given. This limits evaluation of the bowel. COMPARISON: July 27, 2024 FINDINGS: Large left and moderate right pleural effusions with bibasilar atelectasis. Upper lobes are clear. 9 mm lymph node right internal mammary chain. Subcentimeter hilar and mediastinal nodes. Wall of the proximal duodenum appears mildly thickened. Small collection of air and fluid lies medial to the proximal duodenum. Free air into the peritoneal cavity not seen. Liver, spleen, pancreas, adrenals, and kidneys appear unremarkable. Surgical clips are present within the right abdomen. Large amount of ascites is present. There is no evidence of diverticulitis IMPRESSION: Large left and moderate right pleural effusions Large amount of ascites Wall of the proximal duodenum appears mildly thickened which could indicate inflammation. 2.5 cm collection of air and fluid medial to the proximal duodenum. This may represent a diverticulum . A contained perforation of a duodenal ulcer is another consideration. CT abdomen with oral contrast may be helpful.
--- NOTE | 2024-07-29 21:27 | P.PN ---
Date of Service: 07/29/24 Vital Signs Temp Pulse Resp BP Pulse Ox 97.5 F 102 H 20 108/58 L 99 07/29/24 16:00 07/29/24 16:00 07/29/24 16:00 07/29/24 16:00 07/29/24 16:00 Medications Aspirin (Aspirin Ec 81 Mg Tab) 81 mg PO DAILY [facility] Last Admin: 07/29/24 09:00 Dose: 81 mg Atorvastatin Calcium (Atorvastatin 40 Mg Tab) 40 mg PO BEDTIME [facility] Last Admin: 07/28/24 21:18 Dose: 40 mg Enoxaparin Sodium (Enoxaparin 30 Mg/0.3 Ml) 30 mg SQ DAILY [facility] Last Admin: 07/29/24 09:03 Dose: 30 mg Enteral Nutritional Formula (Nepro Shake 237 Ml Can) 237 ml PO TID [facility] Last Admin: 07/29/24 14:00 Dose: Not Given Ergocalciferol (Drisdol (Vitamin D=Ergocalciferol) 31641 Unit Cap) 50,000 unit PO DAILY [facility] Stop: 07/30/24 09:01 Last Admin: 07/29/24 09:01 Dose: 50,000 unit Furosemide (Furosemide 40 Mg/4 Ml Vial) 40 mg IV BIDL [facility] Last Admin: 07/29/24 09:00 Dose: Not Given Glucagon (Glucagon 1 Mg/Vial) 1 mg IM 1X PRN PRN Reason: HYPOGLYCEMIA Dextrose (Dextrose 10% Water Iv Soln.) 125 mls @ 0 mls/hr IV PRN PRN; Protocol PRN Reason: HYPOGLYCEMIA Insulin Human Regular (Insulin Regular (Human) 100 Unit/Ml) 0 unit SQ ACHS [facility]; Protocol Last Admin: 07/29/24 16:23 Dose: 5 unit Midodrine (Midodrine Hcl 5 Mg Tablet) 5 mg PO EVERY HD PRN PRN Reason: FOR BLOOD PRESSURE SUPPORT Pantoprazole Sodium (Pantoprazole 40 Mg Inj) 40 mg IVP Q12HR [facility]; Protocol Last Admin: 07/29/24 09:05 Dose: 40 mg Sodium Chloride (Sodium Chloride 0.9% 10ml Inj) 10 ml IV UD PRN PRN Reason: Diluant Last Admin: 07/26/24 22:05 Dose: 10 ml Vitamin B Complex/Vit C/Folic Acid (Multivitamins,Therapeut 1 Tab) 1 tab PO DAILY [facility] Last Admin: 07/29/24 09:04 Dose: 1 tab Assessment/ Plan: Nephrology No dyspnea No chest pain No acute events overnight Vitals, medications, blood work and imaging reviewed in the chart NAD. MMM. NCAT. Normal Respiratory Effort. S1S2. ND Abd. No C/C/E. No rash. AAO. Normal speech. ESRD on HD -HD tomorrow Chronic Hypotension -Continue Midodrine Systolic CHF, A/C Ischemic CMP -UF with HD -Continue Lasix DM II with CKD -RISS Anemia in CKD Hx GI Bleed -Continue IV Iron -Retacrit prn -EGD yesterday Hospitalist note reviewed
[2024-07-29] MEDS: D10W 125 ML IV PRN (22:10)
[2024-07-30 05:42] LABS: Absolute Basophils 0.1 K/uL (0-0.5)
[2024-07-30 06:05] LABS: Absolute Lymphocytes (CBC) 0.5 K/uL (0.7-4.9); Absolute Monocytes 0.4 K/uL (0.1-1.3); Absolute Neutrophil 4.6 K/uL (1.8-8.0); Basophils % 1.2 % (0-1.3); Eosinophils % 0.9 % (0-4.4); Hematocrit 25.4 % (39.6-49.0); Hemoglobin 8.2 g/dL (13.6-17.9); Lymphocytes % 8.5 % (15.3-44.8); MCH 27.9 pg (27.0-35.0); MCHC 32.3 g/dL (32.0-36.0); MCV 86.3 fL (80-100); MPV 8.5 fL (7.6-11.3); Monocytes % 7.7 % (3.3-12.3); Neutrophils % 81.7 % (41.7-73.7); Nucleated Red Blood Cells % 0.3 % (0-0); Platelets 249 thou/uL (152-406); RBC Red Blood Cell Count 2.95 M/uL (4.33-5.43); Red Cell Distribution Width 17.6 % (12.1-15.2)
[2024-07-30 08:56] LABS: Anion Gap 8.8 mEq/L (5.0-15.0); Magnesium 1.9 mg/dL (1.6-2.4); Phosphorus 2.7 mg/dL (2.5-4.9); Potassium 3.8 mEq/L (3.5-5.1)
--- NOTE | 2024-07-30 10:03 | P.PN ---
Subjective Date of Service: 07/29/24 Chief Complaint: Anemia with history of prior GI bleeds Subjective: No new changes (EGD revealed large 10 X 2 cm gastric ulcer from body to antrum, s/p biopsy. No bleeding noted overnight. On PPI bid. CT abdomen negative for possible neoplastic signs.) Physical Examination - Vital Signs Temperature: 97.7 F Blood Pressure: 129/65 Pulse: 103 Respirations: 24 Pulse Ox (%): 98 Assessment And Plan - Current Problems (Diagnosis) (1) Anemia due to GI blood loss Current Visit: Yes Status: Acute (2) Ulcer, gastric, acute, with hemorrhage or perforation Current Visit: Yes Status: Acute (3) CHF (congestive heart failure) Onset Date: 02/26/14 Current Visit: No Status: Acute Qualifiers: Heart failure type: unspecified Heart failure chronicity: chronic Qualified Code(s): I50.9 - Heart failure, unspecified (4) COPD exacerbation Onset Date: 02/26/14 Current Visit: No Status: Acute (5) Diabetes mellitus Current Visit: No Status: Acute Qualifiers: Diabetes mellitus type: type 2 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
--- NOTE | 2024-07-30 10:06 | P.PN ---
Subjective Date of Service: 07/30/24 Chief Complaint: Anemia with history of prior GI bleeds Subjective: No new changes (Feels well on PPI bid. No GI bleeding. CT abdomen negative for neoplastic signs. Pathology of large 10 cm ulcer from EGD pending.) Review of Systems 10-point ROS is otherwise unremarkable General: Weakness (Improved. ) Physical Examination - Vital Signs Temperature: 97.7 F Blood Pressure: 129/65 Pulse: 103 Respirations: 24 Pulse Ox (%): 98 - Physical Exam General: Alert, In no apparent distress, Oriented x3 HEENT: Atraumatic, Normocephalic, Other (Poor reactive pupils ), EOMI Neck: Supple Respiratory: Normal air movement Cardiovascular: Normal pulses Gastrointestinal: Soft and benign, No tenderness, No rebound, No guarding Neurological: Normal speech Assessment And Plan - Current Problems (Diagnosis) (1) Anemia due to GI blood loss Current Visit: Yes Status: Acute (2) Ulcer, gastric, acute, with hemorrhage or perforation Current Visit: Yes Status: Acute (3) CHF (congestive heart failure) Onset Date: 02/26/14 Current Visit: No Status: Acute Qualifiers: Heart failure type: unspecified Heart failure chronicity: chronic Qualified Code(s): I50.9 - Heart failure, unspecified (4) COPD exacerbation Onset Date: 02/26/14 Current Visit: No Status: Acute (5) Diabetes mellitus Current Visit: No Status: Acute Qualifiers: Diabetes mellitus type: type 2 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
--- NOTE | 2024-07-30 12:59 | P.PN ---
Subjective Date of Service: 07/30/24 Chief Complaint: Anemia with history of prior GI bleeds No acute events overnight. Lying in bed, comfortable. Son at bedside Review of Systems 10-point ROS is otherwise unremarkable Physical Examination - Vital Signs Temperature: 97.8 F Blood Pressure: 110/58 Pulse: 107 Respirations: 26 Pulse Ox (%): 98 Assessment And Plan - Plan Chest pain rule out CAD s/p CABG (2013) Severe pulmonary HTN -Chest pain resolved - Seen by cardiology, medical therapy recommended Fluid volume overload 2/2 ESRD 4 with dialysis MWF Hyponatremia - Dr. Holley following - Lasix IV 40 mg twice daily -Undergoing hemodialysis with improvement in volume status Anemia of chronic disease - H&H 12/14.5 - Monitoring a.m. 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 Resendiz and he recommended keeping patient in house till biopsy results are back DVT PPx heparin Full code LOS 24-hour OBS
[2024-07-30] MEDS: ALBUMIN HUMAN 25% 100 ML IV ONE (14:29)
[2024-07-30] MEDS: HEPARIN 5000 UNIT/ML 1 ML VIAL SQ SCH (20:27)
--- NOTE | 2024-07-30 21:33 | P.PN ---
Date of Service: 07/30/24 Vital Signs Temp Pulse Resp BP Pulse Ox 97.8 F 107 H 26 H 110/58 L 98 07/30/24 12:58 07/30/24 12:58 07/30/24 12:58 07/30/24 12:58 07/30/24 12:58 Medications Aspirin (Aspirin Ec 81 Mg Tab) 81 mg PO DAILY [facility] Last Admin: 07/30/24 09:21 Dose: 81 mg Atorvastatin Calcium (Atorvastatin 40 Mg Tab) 40 mg PO BEDTIME [facility] Last Admin: 07/30/24 21:00 Dose: 40 mg Enteral Nutritional Formula (Nepro Shake 237 Ml Can) 237 ml PO TID [facility] Last Admin: 07/30/24 21:00 Dose: Not Given Furosemide (Furosemide 40 Mg/4 Ml Vial) 40 mg IV BIDL [facility] Last Admin: 07/30/24 09:00 Dose: 40 mg Glucagon (Glucagon 1 Mg/Vial) 1 mg IM 1X PRN PRN Reason: HYPOGLYCEMIA Heparin Sodium (Porcine) (Heparin 5000 Unit/Ml 1 Ml Vial) 5,000 unit SQ Q12HR [facility] Last Admin: 07/30/24 20:27 Dose: 5,000 unit Dextrose (Dextrose 10% Water Iv Soln.) 125 mls @ 0 mls/hr IV PRN PRN; Protocol PRN Reason: HYPOGLYCEMIA Last Admin: 07/29/24 22:10 Dose: 125 mls Insulin Human Regular (Insulin Regular (Human) 100 Unit/Ml) 0 unit SQ ACHS [facility]; Protocol Last Admin: 07/30/24 16:30 Dose: Not Given Midodrine (Midodrine Hcl 5 Mg Tablet) 5 mg PO EVERY HD PRN PRN Reason: FOR BLOOD PRESSURE SUPPORT Pantoprazole Sodium (Pantoprazole 40 Mg Inj) 40 mg IVP Q12HR [facility]; Protocol Last Admin: 07/30/24 21:01 Dose: 40 mg Sodium Chloride (Sodium Chloride 0.9% 10ml Inj) 10 ml IV UD PRN PRN Reason: Diluant Last Admin: 07/26/24 22:05 Dose: 10 ml Vitamin B Complex/Vit C/Folic Acid (Multivitamins,Therapeut 1 Tab) 1 tab PO DAILY [facility] Last Admin: 07/30/24 09:21 Dose: 1 tab Assessment/ Plan: Nephrology No dyspnea No chest pain No acute events overnight Vitals, medications, blood work and imaging reviewed in the chart NAD. MMM. NCAT. Normal Respiratory Effort. S1S2. ND Abd. No C/C/E. No rash. AAO. Normal speech. ESRD on HD -HD today Chronic Hypotension -Continue Midodrine Systolic CHF, A/C Ischemic CMP Pleaural effusion -UF with HD -Continue Lasix DM II with CKD -RISS Anemia in CKD Hx GI Bleed -Continue IV Iron -Retacrit prn -GI following Hospitalist note reviewed Case reviewed with Dr. Francois EXAM: Chest Abdomen Pelvis W Cont CLINICAL INDICATION: Chest and abdominal pain. Possible duodenal neoplasm TECHNIQUE: CT chest, abdomen and pelvis was performed, with 100 cc Isovue-300 IV contrast, as per department protocol. Axial, sagittal and coronal reconstructions were obtained. One or more of the following dose reduction techniques were used: Automated exposure control, adjustment of the mA and/or kV according to the patient size, and/or iterative reconstruction. Unless otherwise specified, incidental findings do not require dedicated imaging follow-up. [id number]. Oral contrast not given. This limits evaluation of the bowel. COMPARISON: July 27, 2024 FINDINGS: Large left and moderate right pleural effusions with bibasilar atelectasis. Upper lobes are clear. 9 mm lymph node right internal mammary chain. Subcentimeter hilar and mediastinal nodes. Wall of the proximal duodenum appears mildly thickened. Small collection of air and fluid lies medial to the proximal duodenum. Free air into the peritoneal cavity not seen. Liver, spleen, pancreas, adrenals, and kidneys appear unremarkable. Surgical clips are present within the right abdomen. Large amount of ascites is present. There is no evidence of diverticulitis IMPRESSION: Large left and moderate right pleural effusions Large amount of ascites Wall of the proximal duodenum appears mildly thickened which could indicate inflammation. 2.5 cm collection of air and fluid medial to the proximal duodenum. This may represent a diverticulum. A contained perforation of a duodenal ulcer is another consideration. CT abdomen with oral contrast may be helpful.
[2024-07-31 06:09] LABS: Absolute Basophils 0.1 K/uL (0-0.5); Absolute Eosinophils 0.1 K/uL (0-0.5); Absolute Lymphocytes (CBC) 0.4 K/uL (0.7-4.9); Absolute Monocytes 0.7 K/uL (0.1-1.3); Eosinophils % 1.1 % (0-4.4); Hematocrit 24.1 % (39.6-49.0); Lymphocytes % 7.8 % (15.3-44.8); MCHC 33.2 g/dL (32.0-36.0); MCV 87.3 fL (80-100); MPV 7.7 fL (7.6-11.3); Neutrophils % 77.1 % (41.7-73.7); Nucleated Red Blood Cells % 0.1 % (0-0); Platelets 227 thou/uL (152-406); RBC Red Blood Cell Count 2.76 M/uL (4.33-5.43); Red Cell Distribution Width 17.4 % (12.1-15.2)
--- NOTE | 2024-07-31 15:42 | P.PN ---
Subjective Date of Service: 07/31/24 Chief Complaint: Anemia with history of prior GI bleeds No acute events overnight. Lying in bed, comfortable. Son at bedside Review of Systems 10-point ROS is otherwise unremarkable Physical Examination - Vital Signs Temperature: 98.0 F Blood Pressure: 115/56 Pulse: 105 Respirations: 20 Pulse Ox (%): 99 - Physical Exam General: Alert, Oriented x3 HEENT: Atraumatic Neck: Supple Respiratory: Diminished Cardiovascular: No edema Gastrointestinal: Normal bowel sounds, Distended Musculoskeletal: No clubbing, No swelling Neurological: Normal gait, Normal speech Assessment And Plan - Plan Chest pain rule out CAD s/p CABG (2013) Severe pulmonary HTN -Chest pain resolved - Seen by cardiology, medical therapy recommended Fluid volume overload 2/2 ESRD 4 with dialysis MWF Hyponatremia - Dr. Holley following - Lasix IV 40 mg twice daily -Undergoing hemodialysis with improvement in volume status Anemia of chronic disease - H&H 12/14.5 - Monitoring a.m. 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 Astrid VAZQUEZ: Plan for repeat EGD tomorrow - Continue PPI twice daily Diabetes mellitusIDDM -Serum glucose 178 - Accu-Chek with sliding scale insulin GERD -Protonix BID Disposition: Discussed with Dr. Astrid VAZQUEZ : Plan for repeat EGD tomorrow DVT PPx heparin Full code LOS 24-hour OBS
[2024-07-31] MEDS: ALBUMIN HUMAN 25% 100 ML IV ONE (16:00)
--- NOTE | 2024-07-31 21:54 | P.PN ---
Date of Service: 07/31/24 Vital Signs Temp Pulse Resp BP Pulse Ox 98.3 F 82 18 114/58 L 96 07/31/24 20:00 07/31/24 20:00 07/31/24 20:00 07/31/24 20:00 07/31/24 20:00 Medications Aspirin (Aspirin Ec 81 Mg Tab) 81 mg PO DAILY [facility] Last Admin: 07/31/24 09:14 Dose: 81 mg Atorvastatin Calcium (Atorvastatin 40 Mg Tab) 40 mg PO BEDTIME [facility] Last Admin: 07/31/24 21:06 Dose: 40 mg Enteral Nutritional Formula (Nepro Shake 237 Ml Can) 237 ml PO TID [facility] Last Admin: 07/31/24 21:00 Dose: Not Given Furosemide (Furosemide 40 Mg/4 Ml Vial) 40 mg IV BIDL [facility] Last Admin: 07/31/24 17:00 Dose: Not Given Glucagon (Glucagon 1 Mg/Vial) 1 mg IM 1X PRN PRN Reason: HYPOGLYCEMIA Heparin Sodium (Porcine) (Heparin 5000 Unit/Ml 1 Ml Vial) 5,000 unit SQ Q12HR [facility] Last Admin: 07/31/24 21:06 Dose: 5,000 unit Heparin Sodium (Porcine) (Heparin 1,000 Unit/Ml Vial) 2,000 unit IV EVERY HD PRN PRN Reason: Prevent HD System Clotting Dextrose (Dextrose 10% Water Iv Soln.) 125 mls @ 0 mls/hr IV PRN PRN; Protocol PRN Reason: HYPOGLYCEMIA Last Admin: 07/29/24 22:10 Dose: 125 mls Insulin Human Regular (Insulin Regular (Human) 100 Unit/Ml) 0 unit SQ ACHS [facility]; Protocol Last Admin: 07/31/24 21:00 Dose: Not Given Midodrine (Midodrine Hcl 5 Mg Tablet) 5 mg PO EVERY HD PRN PRN Reason: FOR BLOOD PRESSURE SUPPORT Pantoprazole Sodium (Pantoprazole 40 Mg Inj) 40 mg IVP Q12HR [facility]; Protocol Last Admin: 07/31/24 21:07 Dose: 40 mg Sodium Chloride (Sodium Chloride 0.9% 10ml Inj) 10 ml IV UD PRN PRN Reason: Diluant Last Admin: 07/26/24 22:05 Dose: 10 ml Vitamin B Complex/Vit C/Folic Acid (Multivitamins,Therapeut 1 Tab) 1 tab PO DAILY [facility] Last Admin: 07/31/24 09:14 Dose: 1 tab Assessment/ Plan: Nephrology No dyspnea. 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 MMM. NCAT. Normal Respiratory Effort. S1S2. ND Abd. No C/C/E. No rash. AAO. Normal speech. ESRD on HD -UF today Chronic Hypotension -Continue Midodrine Systolic CHF, A/C Ischemic CMP Pleaural effusion -UF today -Continue Lasix DM II with CKD -RISS Anemia in CKD Hx GI Bleed -Continue IV Iron -Retacrit prn -GI following; plan for repeat EGD Hospitalist note reviewed Case reviewed with Dr. Francois EXAM: Chest Abdomen Pelvis W Cont CLINICAL INDICATION: Chest and abdominal pain. Possible duodenal neoplasm TECHNIQUE: CT chest, abdomen and pelvis was performed, with 100 cc Isovue-300 IV contrast, as per department protocol. Axial, sagittal and coronal reconstructions were obtained. One or more of the following dose reduction techniques were used: Automated exposure control, adjustment of the mA and/or kV according to the patient size, and/or iterative reconstruction. Unless otherwise specified, incidental findings do not require dedicated imaging follow-up. [id number]. Oral contrast not given. This limits evaluation of the bowel. COMPARISON: July 27, 2024 FINDINGS: Large left and moderate right pleural effusions with bibasilar atelectasis. Upper lobes are clear. 9 mm lymph node right internal mammary chain. Subcentimeter hilar and mediastinal nodes. Wall of the proximal duodenum appears mildly thickened. Small collection of air and fluid lies medial to the proximal duodenum. Free air into the peritoneal cavity not seen. Liver, spleen, pancreas, adrenals, and kidneys appear unremarkable. Surgical clips are present within the right abdomen. Large amount of ascites is present. There is no evidence of diverticulitis IMPRESSION: Large left and moderate right pleural effusions Large amount of ascites Wall of the proximal duodenum appears mildly thickened which could indicate inflammation. 2.5 cm collection of air and fluid medial to the proximal duodenum. This may represent a diverticulum. A contained perforation of a duodenal ulcer is another consideration. CT abdomen with oral contrast may be helpful.
[2024-08-01 05:53] LABS: Absolute Eosinophils 0.1 K/uL (0-0.5); Absolute Lymphocytes (CBC) 0.5 K/uL (0.7-4.9); Absolute Monocytes 0.7 K/uL (0.1-1.3); Absolute Neutrophil 3.6 K/uL (1.8-8.0); Basophils % 0.9 % (0-1.3); Eosinophils % 1.4 % (0-4.4); Hematocrit 23.5 % (39.6-49.0); Hemoglobin 7.7 g/dL (13.6-17.9); Lymphocytes % 9.6 % (15.3-44.8); MCH 28.4 pg (27.0-35.0); MCHC 32.7 g/dL (32.0-36.0); MPV 7.6 fL (7.6-11.3); Monocytes % 13.8 % (3.3-12.3); Neutrophils % 74.3 % (41.7-73.7); Platelets 219 thou/uL (152-406); Red Cell Distribution Width 17.9 % (12.1-15.2)
[2024-08-01 06:02] LABS: Anion Gap 8.7 mEq/L (5.0-15.0); Potassium 3.7 mEq/L (3.5-5.1)
--- NOTE | 2024-08-01 11:46 | P.PN ---
Renal note (S) Pt seen sitting up on the side of the bed, reports some improvement in dyspnea, additional tx done yesterday, some cough/phlegm. Not needing O2 when seen, ambulating short distances, no abd pain or N/V reported (O) vitals reviewed in the EMR General: In no apparent distress, Cooperative HEENT: Atraumatic, Normocephalic Neck: Supple, Other (Rt IJ TDC) Respiratory: Normal air movement, Other (non tachypnec, scattered rales/rhonchi, reduced at bases) Cardiovascular: No edema, Regular rate/rhythm, Other Gastrointestinal: Soft and benign, No tenderness, No guarding, Other (mild distention) Integumentary: No rashes, No tenderness/swelling Neurological: Normal speech, Normal tone, Normal affect Conclusions/Impression: A/P) 1. Recently declared ESRD 2nd to chronic conditions, on iHD MWF. HD today, see orders for details 2. Ischemic CMP, severe systolic CHF. Pleural effusios NOS, ascites. Cont to establish dry weight, UF on HD as tolerated. Cont lasix as non anuric. Clarify if taking Entresto at home. 3. Hypotension of dialysis -better recently, on Midodrine support, f/u post HD BP 4. Recent acute loss anemia on chronic 2nd to CKD, recent upper GI bleed, PUD - Hb remains quite low, iron counts low last mo, will cont iron series, will dose GREGORY today, with his cardiac history, will want to maintain Hb > 8, s/p EGD showed large cratered ulcer, biopsy neg for malignancy and H pylori. Cont PPI +/- carafate. Anti platelet therapy remains on hold other than ASA Cleared from my standpoint to discharge post HD
[2024-08-01] MEDS ORDERED: EPOETIN ALFA-EPBX 10,000 UNIT/ML VIAL SQ ONE (12:00)
--- NOTE | 2024-08-01 14:44 | P.DS ---
Admission Date: 07/28/24 Discharge Date: 08/01/24 Disposition: DC HOME/HOME HEALTH CARE Discharge Condition: GOOD Reason for Admission: Anemia with history of prior GI bleeds Brief History of Present Illness: 64-year-old patient with chest pain, troponin negative, chest x-ray and CTA chest and abdomen showed volume overload and ascites, follow-up on repeat troponins, cardiology consult requested, get an echo, start IV Lasix, I think he will need extra run of dialysis, discussed with nephrology. End-stage renal disease, dialysis as per nephrology. Chronic anemia, monitor closely. Full code. Hospital Course: 64-year-old male with a history of anemia of chronic disease, ESRD on hemodialysis MWF, initially admitted for volume overload. CT of chest/abdomen/pelvis possible bilateral pleural effusions and ascites. Patient underwent multiple sessions of hemodialysis with removal of excess fluid. Pulm status improved prior to discharge. Of note, on admission, patient stated that he was diagnosed with peptic ulcer at an outside hospital a few weeks ago and was told that he needed a repeat endoscopy. On current admission, patient underwent EGD on 07/28/2024 which showed a deep chronic malignant appearing gastric ulcer measuring 10 x 2 cm deep, with biopsy of lesion. Path results of biopsy was negative for malignancy. Repeat CT of chest/abdomen/pel with contrast showed no evidence of malignancy or lymphadenopathy. Discussed plan of care with GI Dr. Resendiz and he recommended outpatient follow-up for repeat EGD. Also recommended initiating PPI twice daily x 30 days upon discharge. Patient was seen by PT/OT and cleared for discharge. 2 wheeled walker was arranged by case work aide prior to discharge Vital Signs/Physical Exam: Temp Pulse Resp BP Pulse Ox 97.7 F 92 H 20 101/54 L 100 08/01/24 12:00 08/01/24 12:00 08/01/24 12:00 08/01/24 12:00 08/01/24 12:00 Laboratory Data at Discharge: WBC 4.90 thou/uL (4.3-10.9) 08/01/24 05:39 Hgb 7.7 g/dL (13.6-17.9) L 08/01/24 05:39 Hct 23.5 % (39.6-49.0) L 08/01/24 05:39 Plt Count 219 thou/uL (152-406) 08/01/24 05:39 PT 13.6 SECONDS (10-13.0) H 07/26/24 10:22 INR 1.20 07/26/24 10:22 Sodium 133 mEq/L (136-145) L 08/01/24 05:39 Potassium 3.7 mEq/L (3.5-5.1) 08/01/24 05:39 BUN 22 mg/dL (7-18) H 08/01/24 05:39 Creatinine 4.23 mg/dL (0.70-1.30) H 08/01/24 05:39 Glucose 135 mg/dL (74-106) H 08/01/24 05:39 Phosphorus 2.7 mg/dL (2.5-4.9) 07/30/24 05:23 Magnesium Cancelled 07/30/24 06:00 Total Bilirubin 0.5 mg/dL (0.2-1.0) 07/26/24 10:22 AST 16 U/L (15-37) 07/26/24 10:22 ALT < 14 U/L (16-61) L 07/26/24 10:22 Alkaline Phosphatase 119 U/L (45-117) H 07/26/24 10:22 Triglycerides 105 mg/dL (<150) 07/27/24 04:21 Cholesterol 88 mg/dL (<200) 07/27/24 04:21 HDL Cholesterol 22 mg/dL (40-60) L 07/27/24 04:21 Cholesterol/HDL Ratio 4.00 07/27/24 04:21 Lipase 27 U/L (13-75) 07/26/24 10:22 Home Medications: Loratadine [Claritin*] 1 tab PO PRN PRN 07/26/24 Mag Oxide/D3/Turmeric Rt Xt [Magnesium-Vit D3-Turmeric Tab] 1 tab PO ONCE 07/26/24 Midodrine HCl 1 tab PO PRN 07/26/24 Sucralfate [Carafate*] 1 tab PO BEDTIME 07/26/24 Furosemide 40 mg PO BID 60 Days 08/01/24 Pantoprazole Sodium [Protonix] 40 mg PO BID 30 Days #30 tablet. 08/01/24 New Medications: Furosemide 40 mg PO BID 60 Days Pantoprazole Sodium [Protonix] 40 mg PO BID 30 Days #30 tablet. Followup: Sudheer Rodriguez, [employer] [Primary Care Provider] - 1-2 Weeks
[2024-08-01 15:11] VITALS: BP 111/54; TEMP 97.6
[2024-08-01] MEDS ORDERED: ALBUMIN HUMAN 25% 100 ML IV ONE (15:26)
--- NOTE | 2024-08-01 17:20 | P.PN ---
Subjective Date of Service: 08/01/24 Chief Complaint: Anemia with history of prior GI bleeds Physical Examination - Vital Signs Temperature: 97.6 F Blood Pressure: 111/54 Pulse: 103 Respirations: 19 Pulse Ox (%): 100 Assessment And Plan - Current Problems (Diagnosis) (1) Anemia due to GI blood loss Current Visit: Yes Status: Acute (2) Ulcer, gastric, acute, with hemorrhage or perforation Current Visit: Yes Status: Acute (3) CHF (congestive heart failure) Onset Date: 02/26/14 Current Visit: No Status: Acute Qualifiers: Heart failure type: unspecified Heart failure chronicity: chronic Qualified Code(s): I50.9 - Heart failure, unspecified (4) COPD exacerbation Onset Date: 02/26/14 Current Visit: No Status: Acute (5) Diabetes mellitus Current Visit: No Status: Acute Qualifiers: Diabetes mellitus type: type 2 Diabetes mellitus fdc insulin use: with termite treater use Diabetes mellitus complication status: with hyperglycemia Qualified Code(s): E11.65 - Type 2 diabetes mellitus with hyperglycemia; 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
== END 2024-08-01 19:32 | disposition home health service (06) | DRG 291 ==
LOC: ER 10:07 → ERHOLD 13:39 → 2ND 14:41 → OBSVTOIN 07-28 08:04
PROVIDERS: ADMIT Hospitalist; ATTEND Internal Medicine
PROC: 5A1D70Z Performance of Urinary Filtration, Intermittent, Less than 6 Hours Per Day (ICD-10-PCS; 2024-07-26)
PROC: 0DB78ZX Excision of Stomach, Pylorus, Via Natural or Artificial Opening Endoscopic, Diagnostic (ICD-10-PCS; 2024-07-28)
PROC: 0DB68ZX Excision of Stomach, Via Natural or Artificial Opening Endoscopic, Diagnostic (ICD-10-PCS; principal; 2024-07-28 18:30)
DX: I13.2 Hypertensive heart and chronic kidney disease with heart failure and with stage 5 chronic kidney disease, or end stage renal disease (principal); I50.23 Acute on chronic systolic (congestive) heart failure; N18.6 End stage renal disease; K25.0 Acute gastric ulcer with hemorrhage; E87.1 Hypo-osmolality and hyponatremia; J44.1 Chronic obstructive pulmonary disease with (acute) exacerbation; F02.84 Dementia in other diseases classified elsewhere, unspecified severity, with anxiety; F02.83 Dementia in other diseases classified elsewhere, unspecified severity, with mood disturbance; G30.9 Alzheimer's disease, unspecified; E11.22 Type 2 diabetes mellitus with diabetic chronic kidney disease; E11.65 Type 2 diabetes mellitus with hyperglycemia; D63.1 Anemia in chronic kidney disease; E78.5 Hyperlipidemia, unspecified; I25.5 Ischemic cardiomyopathy; I27.20 Pulmonary hypertension, unspecified; K21.9 Gastro-esophageal reflux disease without esophagitis; I25.10 Atherosclerotic heart disease of native coronary artery without angina pectoris; I25.2 Old myocardial infarction; Z95.1 Presence of aortocoronary bypass graft; Z79.4 Long term (current) use of insulin; Z99.2 Dependence on renal dialysis; Z79.82 Long term (current) use of aspirin; Z79.02 Long term (current) use of antithrombotics/antiplatelets; Z79.899 Other long term (current) drug therapy; Z91.158 Patient's noncompliance with renal dialysis for other reason; Z95.810 Presence of automatic (implantable) cardiac defibrillator
CPT/HCPCS: 36415; 71045; 71250; 71260; 74176; 74177; 80048; 80061; 80076; 81001; 82947; 83036; 83690; 83735; 83880; 84100; 84439; 84443; 84484; 85025; 85610; 86706; 87340; 88305; 88312; 90935; 93005; 93306; 96374; 99285; G0378; J1644; J1650; J1815; J1938; J2003; J2371; J2470; J2704; J2916; J7040; P9047; Q5106; Q9967

== ENCOUNTER 2024-12-18 11:25 | Emergency (ER) | payer OTHER ==
--- OUTSIDE RECORDS SUMMARY | 2024-12-18 12:01 | XMS REPORT | Continuity of Care Document ---
Author Name Unknown Address [address] [facility] [address] [place] [address] [facility] Address [address] [facility] [address] [place] [address] Care Team Providers Care [employer] Teacher Name Role Phone Jennifer LOPEZ, Nancy Primary Care Physician [phone] MAYUR WINTER Attending Clinician Unavailable Nancy Rodriguez Attending Clinician Unavailable ISMAEL HUNTER Attending Clinician Unavailable Mallory LOPEZ, Mark Attending Clinician [phone] Sarika LOPEZ, Andrea Attending Clinician +[phone] ASAD MORGAN Attending Clinician Unavailable ASAD MORGAN Attending Clinician Unavailable Greg Recinos DO Attending Clinician +[phone] Justo Ornelas MD Attending Clinician +[phone] Eliel LOPEZ, Sathish Tucker Attending Clinician + [phone] SATHISH FAULKNER Attending Clinician Unavaila mary lou Doctor Unassigned, [place] Attending Clinician U vaibhav Miles RN, Saida Attending Clinician +[phone] CRISTO CHRISTIANSEN Attending Clinician Unavailable CRISTO CHRISTIANSEN Attending Clinician Unavailable Prasanth Hernandez DO Attending Clinician +- [phone] Robert LOPEZ, Cristo Attending Clinician +[phone] MOIRA CRUZ Attending Clinician Unav ailable NANCY, MOIRA GONZALEZ Attending Clinician Unav ailable Michael Herrera DO Attending Clinician +[phone] Nancy LOPEZ, Moira Gonzalez Attending Clinician + Yvonne Lilly RN Attending Clinician Unavailab Dulce Maria Veloz DO Attending Clinician +[phone] Isac MORGAN, Maria A Workman Attending Clinician Unavail able BRIGETTE BARRIOS Attending Clinician UnavailTien Hawthorne MD Attending Clinician +[phone] Julio Cesar Partida MD Attending Clinician + [phone] Jah Mtz MD Attending Clinician +[phone] Geraldo Mendoza MD Attending Clinician + [phone] Brigette Barrios MD Attending Clinician + [phone] Adelaide LOPEZ, Mayur Isaac Attending Clinici an Katelynn LOPEZ, Luis Attending Clinician + [phone] Mery MORGAN, Vamsi Hinson Attending Clinician Unavail able JONY RAM Attending Clinician Unavailable Tomas Uribe DO Attending Clinician + Corby LOPEZ, Pb Attending Clinician +[phone] Jony Ram DO Attending Clinician +[phone] Jony Vaughan MD Attending Clinician + Miller Menon CRNA Attending Clinician + Asad Morgan MD Attending Clinician +[phone] Dale LOPEZ, Ismael Attending Clinician + [phone] JAKI DOWNS Attending Clinician Unavailab JAKI Concepcion Attending Clinician Unavailab Jaki Concepcion DO Attending Clinician +[phone] MARK TEJADA Attending Clinician Unavailable MARK TEJADA Attending Clinician Unavailable 2, [facility] Attending Clinician Unavailable Mayur Moe MD Attending Clinici an MAYUR MOE Attending Clinician Unavailable 2, [facility] Attending Clinician Unavailable Mery MORGAN, Vamsi Hinson Attending Clinician Unavail able Tien Gross MD Attending Clinician +[phone] Jony Ram DO Attending Clinician [phone] Nurse, [facility] Pob Amb Infusion Attending Clinician Unavailable Doctor Unassigned, [place] Attending Clinician U navailable Pob, [facility] Main Attending Clinician Unavailkuldip Montanez MD, Melyssa Attending Clinician [phone] Andrea Cabrera MD Attending Clinician [phone] Testing, [facility] Pulmonary Function Attending Clinic tj Unavailable Dilia Calloway Attending Clinician + [phone] DILIA TURNER Attending Clinician Unavailab Yvonne Dobson RN Attending Clinician Unavailab ANDREA Farnsworth Attending Clinician Unavailable Benjamin KIMBROUGH Attending Clinician Unavailable Benjamin Nieves Attending Clinician + [phone] Corby LOPEZ, Pb Attending Clinician + PB TAVAREZ Attending Clinician Unavailable HIMANSHU REBECCA Sole Attending Clinician Unavailable Brenda Dodd MD Attending Clinician + [phone] NNAMDI POLANCO Attending Clinician Unavailable Kathy LOPEZ, Nnamdi Attending Clinician +[phone] BRENDA DODD Attending Clinician UnavailBRENDA Brown Attending Clinician UnavailOriana Holly MD Attending Clinician +[phone] 1, [facility] Sleep Lab Bed Attending Clinician Unavail able Only, [facility] Test Attending Clinician Unavailable Prasanth Meyers MD Attending Clinician +[phone] PRASANTH MEYERS Attending Clinician Unavailabl e Tech, [facility] Attending Clinician UnavailNir Ngo MD Attending Clinician [phone] Lawrence Goff MD Attending Clinician +[phone] Marnie, Remote Device Check At Home - Attending Fernando brar Unavailable LAWRENCE GOFF Attending Clinician Unava ilable Visit, [facility] Nurse Attending Clinician Unavailable Venancio LOPEZ, Sendil K.H. Attending Clinician +[phone] [facility] Cardio Fac Attending Clinician Unavail able 1, [facility] Cardio Fac Room Attending Clinician Unava ilable MAYUR WINTER Admitting Clinician Unavailable ISMAEL HUNTER Admitting Clinician Unavailable PRASANTH HERNANDEZ Admitting Clinician Unavailabl Prasanth Delgado DO Admitting Clinician [phone] JULIO CESAR PARTIDA Admitting Clinician UnavailJulio Cesar [place] MD Admitting Clinician + [phone] PB TAVAREZ Admitting Clinician Unavailable Pb Tavarez MD Admitting Clinician +[phone] JAKI DOWNS Admitting Clinician Unavailab JONY Mireles Admitting Clinician Unavailable Jony Ram DO Admitting Clinician +[phone] MAUYR MOE Admitting Clinician Unavailable Pb Tavarez MD Admitting Clinician +[phone] NNAMDI POLANCO Admitting Clinician Unavailable Nir Verdugo MD Admitting Clinician + [phone] ANDREA CABRERA Admitting Clinician Unavailable Payers Payer Name Policy Type Policy Number Effective Date Expirati on Date Source [facility] DUAL COMP HMO-POS D SNP [id number] 2024 00:00:00 [facility] AARP MCR Advantage (HMO-POS) [id number] [facility] WELLMED MEDICAID DUAL COMPLETE HMO DSNP [id number] 2024 00:00:00 [employer] HMO [id number] 2022 00:00:00 [employer] MEDICARE ADVANTAGE WELLMED 53 [id number] 2021 00:00:00 [facility] Problems Condition Name Condition Details Condition Category Status Onset Date Resolution Date Last Treatment Date Treating Clinician Comments Source Gastric perforatio n Gastric perforatio n Disease Active 2-07 00:00: 00 [facility] Blood in stool Blood in stool Disease Active 05-14 00:00: 00 [facility] Shortness of breath Shortness of breath Disease Active -14 00:00: 00 [facility] Chronic kidney disease (CKD), active medical management without dialysis, stage 5 Chronic kidney disease (CKD), active medical management without dialysis, stage 5 Disease Active 2023-04-19 00:00: 00 [facility] Hypoglycem ia Hypoglycem ia Disease Active 09-07 00:00: 00 [facility] Acute on chronic combined systolic (congestiv e) and diastolic (congestiv e) heart failure Acute on chronic combined systolic (congestiv e) and diastolic (congestiv e) heart failure Disease Active 01-15 00:00: 00 [facility] Pulmonary hypertensi on Pulmonary hypertensi on Disease Active 05-20 00:00: 00 [facility] BRISSA (obstructi ve sleep apnea) BRISSA (obstructi ve sleep apnea) Disease Active - 00:00: 00 [facility] Troponin I above reference range Troponin I above reference range Disease Active 2020-04 00:00: 00 [facility] Acute right-side d CHF (congestiv e heart failure) Acute right-side d CHF (congestiv e heart failure) Disease Active 2020-04 00:00: 00 [facility] HFrEF (heart failure with reduced ejection fraction) HFrEF (heart failure with reduced ejection fraction) Disease Active 2020-04 00:00: 00 [facility] Dyspnea Dyspnea Disease Active 07-24 00:00: 00 [facility] CASPER (dyspnea on exertion) CASPER (dyspnea on exertion) Disease Active 05-11 00:00: 00 [facility] Type 2 diabetes mellitus without complicati on, without long-term current use of insulin Type 2 diabetes mellitus without complicati on, without long-term current use of insulin Disease Active 01-03 00:00: 00 [facility] Type 2 diabetes mellitus without complicati on, without long-term current use of insulin Type 2 diabetes mellitus without complicati on, without long-term current use of insulin Disease Active 01-03 00:00: 00 [facility] KENYA (acute kidney injury) KENYA (acute kidney injury) Disease Active 09-05 00:00: 00 [facility] S/P ICD (internal cardiac defibrilla tor) procedure S/P ICD (internal cardiac defibrilla tor) procedure Disease Active 08-08 00:00: 00 [facility] NSTEMI (non-ST elevated myocardial infarction ) NSTEMI (non-ST elevated myocardial infarction ) Disease Active 12-12 00:00: 00 [facility] Hyperglyce suzanna Hyperglyce suzanna Disease Active 12-12 00:00: 00 [facility] Chest pain Chest pain Disease Active 12-11 00:00: 00 [facility] Coronary artery disease involving te-moak coronary artery without angina pectoris Coronary artery disease involving te-moak coronary artery without angina pectoris Disease Active 11-22 00:00: 00 [facility] Coronary artery disease involving te-moak coronary artery without angina pectoris Coronary artery disease involving te-moak coronary artery without angina pectoris Disease Active 11-22 00:00: 00 [facility] Essential hypertensi on Essential hypertensi on Disease Active 06-15 00:00: 00 Overview: Formattin g of this note might be different from the original. 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 Indigesti on -STEMI 10/04. S/p PCI ? vessel [facility] Smoking 1/2 pack a day or less Smoking 1/2 pack a day or less Disease Active 06-15 00:00: 00 [facility] Ischemic cardiomyop athy Ischemic cardiomyop athy Disease Active 06-15 00:00: 00 Overview: Formattin g of this note might be different from the original. EF 20% per pt 10/04 [facility] Thyroid disease Thyroid disease Disease Active [facility] Allergic rhinitis Non-season al allergic rhinitis, unspecifie d trigger Problem [facility] [id number] Dependence on renal dialysis Problem [facility] [id number] End stage renal disease Problem [facility] [id number] Gastrointe stinal hemorrhage associated with duodenal ulcer Problem [facility] [id number] PUD (peptic ulcer disease) Problem [facility] Chronic duodenal ulcer with hemorrhage Chronic or unspecifie d duodenal ulcer with hemorrhage Problem [facility] Hyp hrt & chr kdny dis w hrt fail and w stg 5 chr kdny/ESRD Hyp hrt & chr kdny dis w hrt fail and w stg 5 chr kdny/ESRD Problem [facility] [id number] Chronic systolic congestive heart failure Problem [facility] [id number] Multiple falls Problem [facility] [id number] Generalize d osteoarthr itis Problem [facility] [id number] Coronary artery disease involving te-moak coronary artery of te-moak heart without angina pectoris Problem [facility] [id number] Anemia of chronic disease Problem [facility] [id number] GERD without esophagiti s Problem [facility] 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 Problem [facility] [id number] Chronic kidney disease, stage 3b Problem [facility] [id number] Mixed hyperlipid emia Problem [facility] [id number] Cardiac defibrilla tor in place Problem [facility] [id number] Hypertensi ve heart disease with heart failure Problem [facility] [id number] Type 2 diabetes mellitus without complicati ons Problem [facility] [id number] Type 2 diabetes mellitus with other diabetic kidney complicati on Problem [facility] [id number] Diabetes mellitus due to underlying condition with diabetic chronic kidney disease Problem [facility] Tobacco user Smokes 1/2 pack per day Problem [facility] Acute on chronic systolic heart failure Acute on chronic systolic congestive heart failure Problem [facility] [id number] KENYA (acute kidney injury) Problem [facility] [id number] Anemia in chronic kidney disease Problem [facility] [id number] Type 2 diabetes mellitus with diabetic chronic kidney disease Problem [facility] [id number] Chronic kidney disease, stage 4 (severe) Problem [facility] Decreased hearing Decreased hearing Problem [facility] DM (diabetes mellitus) DM (diabetes mellitus) Disease Resolve d 06-15 00:00: 00 2016-05-22 00:00:00 2016-05-22 08:20:42 [facility] Left ventricula r apical thrombus Left ventricula r apical thrombus Disease Resolve d 2016-0 8-22 00:00: 00 2016-01-12 00:00:00 2021-11-06 00:41:53 [facility] Allergies, Adverse Reactions, Alerts Allergy Name Allergy Type Status Severity Reaction(s) Onset Date Inactive Date Treating Clinician Comments Source NO KNOWN ALLERGIE S Drug Class Active [facility] Family History Family Member Diagnosis Comments Start Date Stop Date Sourc e Natural brother Diabetes [facility] Natural [facility] Natural brother Hypertension [facility] Natural father Heart Unive [facility] Natural mother Ast[facility] Natural sister [facility] Natural sister Hy[facility] Social History Social Habit Start Date Stop Date Quantity Comments Source History SDOH Social Connections Get Together [facility] History SDOH Social Connections [facility] History SDOH Social Connections Membership [facility] History SDOH Social Connections Meetings [facility] Gender identity [facility] Sexual orientation [facility] History of Occupation [facility] Sex Assigned [facility] [employer] [facility] History of Social function 2024-07-15 00:00:00 2024-07-15 00:00:00 [facility] Alcoholic beverage intake 2024-07-15 00:00:00 2024-07-15 00:00:00 0 /d [facility] Cigarettes smoked current (pack per day) - Reported 2024-05-30 00:00:00 2024-05-30 00:00:00 [facility] Cigarette pack-years 2024-05-30 00:00:00 2024-05-30 00:00:00 [facility] Tobacco use and exposure 2024-05-30 00:00:00 2024-05-30 00:00:00 Smokeless tobacco non-user [facility] Tobacco Comment 2023-09-08 00:00:00 2023-09-08 00:00:00 Trying to quit [facility] Alcohol intake 2023-01-22 00:00:00 2023-01-22 00:00:00 0 /d [facility] Exposure to SARS-CoV-2 (event) 2022-07-01 00:00:00 2022-07-11 14:03:00 Not sure [facility] History SDOH Food Worry 2022-05-24 00:00:00 2022-05-24 00:00:00 2 [facility] History SDOH Food Scarcity 2022-05-24 00:00:00 2022-05-24 00:00:00 2 [facility] History SDOH Social Connections Phone 2022-05-23 00:00:00 2022-05-23 00:00:00 1 [facility] History SDOH Social Connections Living 2022-05-23 00:00:00 2022-05-23 00:00:00 5 [facility] History SDOH Physical Activity DPW 2022-05-23 00:00:00 2022-05-23 00:00:00 7 [facility] History SDOH Physical Activity MPS 2022-05-23 00:00:00 2022-05-23 00:00:00 1 [facility] History SDOH Financial 2022-05-23 00:00:00 2022-05-23 00:00:00 3 [facility] History SDOH Transport Med 2022-05-23 00:00:00 2022-05-23 00:00:00 2 [facility] History SDOH Transport Non-Med 2022-05-23 00:00:00 2022-05-23 00:00:00 2 [facility] History SDOH Alcohol Frequency 2022-05-23 00:00:00 2022-05-23 00:00:00 1 [facility] History SDOH Alcohol Std Drinks 2022-05-22 00:00:00 2022-05-22 00:00:00 0 [facility] History SDOH Alcohol Binge 2022-05-22 00:00:00 2022-05-22 00:00:00 1 [facility] Alcohol Comment 2015-12-10 00:00:00 2015-12-10 00:00:00 once a month [facility] History of tobacco use 1990-04-23 00:00:00 2015-04-23 00:00:00 Cigarette Smoker [facility] Smoking Status Start Date Stop Date Source Current Smoker 2024-11-25 00:00:00 [facility] Ex-smoker 2024-05-30 00:00:00 2024-05-30 00:00:00 [facility] Occasional tobacco smoker 2023-09-08 00:00:00 [facility] Medications Ordered Medication Name Filled Medication Name Start Date Stop Date Current Medication? Ordering Clinician Indication Dosage Frequency Signature (SIG) Comments Components Source Ezetimibe 10 MG Ezetimibe 10 MG 11-25 00:00: 00 No 1{table t} QD Ezetimibe 10 MG HANDICAP PLACARD 1 HANDICAP PLACARD 1 11-25 00:00: 00 No BID HANDICAP PLACARD 1 LORATADINE ORAL 07-15 10:29: 44 Yes 10mg Take 10 mg by mouth. [facility] pantoprazol e 40 mg EC tablet 07-15 00:00: 00 Yes [id number] 40mg Take 1 tablet by mouth in the morning and 1 tablet in the evening. [facility] NaCl 0.9% (NS) injection 10 mL 06-02 20:30: 00 06-03 00:09 :00 No 10mL 10 mL, Slow IV Push, DIALYSIS ONCE - MARNIE DSU, 1 dose, On Sun06/02/24 at 1430, Routine [facility] heparin 1,000 unit/mL (10 mL) - dialysis catheter care 06-02 20:24: 21 Yes 2000U PRN - SEE INSTRUCTIO NS, Starting on Sun06/02/24 at 1424, Until Discontinu ed, Routine, For Priming of Ports: After initial saline flush, prime each port with heparin according to the priming volume listed on each catheter port for catheter lock. [facility] acetaminoph en (TYLENOL) tablet 1,000 mg 06-02 20:00: 00 06-03 00:28 :05 No 1000mg 1,000 mg, Oral, TID, First dose on Sun06/02/24 at 1400, Until Discontinu ed, Routine [facility] heparin (porcine) injection 5,000 Units 10 12:00: 00 06-03 00:28 :05 No 5000U 5,000 Units, Subcutaneo us, Q8H, First dose on Sun06/02/24 at 0600, Until Discontinu ed, Routine [facility] furosemide 40 mg tablet 06-02 00:00: 00 Yes 80mg Take 2 tablets by mouth every morning and evening. [facility] fluconazole 200 mg tablet 06-02 00:00: 00 06-07 05:59 :00 No [id number] 200mg Take 1 tablet by mouth in the morning for 4 days. [facility] amoxicillin -pot clavulanate 500 mg (AUGMENTIN) 500-125 mg tablet 06-02 00:00: 00 06-07 05:59 :00 No [id number] 500mg Take 1 tablet by mouth in the morning and 1 tablet in the evening. Do all this for 4 days. [facility] acetaminoph en (TYLENOL) 160 mg/5 mL oral liquid 650 mg 06-01 18:00: 00 06-02 14:05 :31 No 650mg 650 mg, Oral, Q6H, First dose on Sun06/01/24 at 1200, Until Discontinu ed, Routine [facility] NaCl 0.9% (NS) injection 10 mL 05-31 14:30: 00 05-31 18:51 :00 No 10mL 10 mL, Slow IV Push, DIALYSIS ONCE - MARNIE DSU, 1 dose, On 05/31/24 at 0830, Routine [facility] mupirocin (BACTROBAN OINT) 2 % oinintment 05-31 14:23: 47 06-03 00:28 :05 No [facility] heparin 1,000 unit/mL (10 mL) - dialysis catheter care 05-31 14:23: 39 06-03 00:28 :05 No 2000U PRN - SEE INSTRUCTIO NS, Starting on 05/31/24 at 0823, Until Sun06/02/24 at 1828, Routine, For Priming of Ports: After initial saline flush, prime each port with heparin according to the priming volume listed on each catheter port for catheter lock. [facility] iopamidol (ISOVUE 370-500 mL) injection 30 mL 05-31 01:45: 00 05-31 01:13 :00 No [id number] 30mL 30 mL, Oral, ONCE, 1 dose, On Sun05/30/24 at 1945, Routine [facility] Sliding Scale Insulin - Lispro (HumaLOG) 05-30 22:00: 00 06-03 00:28 :05 No Subcutaneo us, Q4H, First dose on Sun05/30/24 at 1600, Until Discontinu ed, Routine [facility] furosemide (LASIX) injection 40 mg 05-30 14:00: 00 05-30 14:50 :12 No 40mg 40 mg, Slow IV Push, Q12H, First dose on Sun05/30/24 at 0800, Until Discontinu ed, Routine [facility] NaCl 0.9% (NS) IV infusion 1,000 mL 05-30 11:30: 00 06-01 16:52 :43 No 1000mL at 20 mL/hr, IV Infusion, CONTINUOUS , Starting on Sun05/30/24 at 0530, Until Sun06/01/24 at 1052, Routine [facility] potassium chloride in water (KCL) 20 mEq/100 mL IV infusion 20 mEq 05-30 11:30: 00 05-30 13:19 :00 No 20meq 20 mEq, IV Infusion, at 50 mL/hr Administer over 2 Hours, ONCE, 1 dose, On Sun05/30/24 at 0530, Routine [facility] magnesium sulfate in water 4 gram/50 mL (8 %) IV Piggyback 4 g 05-30 11:30: 00 05-30 13:22 :00 No 4g 4 g, IV Piggyback, at 25 mL/hr Administer over 120 Minutes, ONCE, 1 dose, On Sun05/30/24 at 0530, Routine [facility] glucagon HCL injection 1 mg 2-07 10:14: 39 06-03 00:28 :05 No 1mg 1 mg, Intramuscu lar, PRN, Starting on Sun05/30/24 at 0414, Until Sun06/02/24 at 1828, MINESH, Low blood sugar, Blood Glucose < or = 70 mg/dL and patient is NPO, unable to swallow or has mental changes. [facility] dextrose 50 % in water (D50W) injection 25 mL 05-30 10:14: 39 06-03 00:28 :05 No 25mL 25 mL, Slow IV Push, PRN, Starting on Sun05/30/24 at 0414, Until Sun06/02/24 at 1828, MINESH, Blood Glucose < or = 70 mg/dL and patient is NPO, unable to swallow or has mental status changes. [facility] fluconazole (DIFLUCAN) Piggyback 200 mg 05-30 10:07: 00 06-03 00:28 :05 No 200mg at 100 mL/hr, IV Piggyback, Q24H ABX, 5 doses, First dose on Sun05/30/24 at 0415, Last dose on Sun06/03/24 at 0415, MINESH, Do Not Refrigerat e. [facility] ondansetron (ZOFRAN (PF)) injection 4 mg 05-30 10:03: 59 06-03 00:28 :05 No 4mg 4 mg, Slow IV Push, Q6HPRN, Starting on Sun05/30/24 at 0403, Until Sun06/02/24 at 1828, Administer over 2-5 Minutes, 2 mL [facility] pantoprazol e (PROTONIX) injection 40 mg 2- 10:02: 00 06-03 00:28 :05 No 40mg 40 mg, Slow IV Push, Q12H ABX, 10 doses, First dose on Sun05/30/24 at 0415, Last dose on Sun06/03/24 at 1615 [facility] iopamidol (ISOVUE 370-500 mL) injection 90 mL 207 05:45: 00 05-30 05:45 :00 No [id number] 90mL 90 mL, Intravenou s, ONCE, 1 dose, On Toshia 05/29/24 at 2345, Routine [facility] pantoprazol e 40 mg EC tablet 05-20 00:00: 00 07-15 00:00 :00 No [id number] 40mg Take 1 tablet by mouth in the morning and 1 tablet in the evening. [facility] NaCl 0.9% (NS) injection 10 mL 05-19 15:30: 00 05-19 19:11 :00 No 10mL 10 mL, Slow IV Push, DIALYSIS ONCE - MARNIE DSU, 1 dose, On Sun05/19/24 at 0930, Routine [facility] heparin 1,000 unit/mL (10 mL) - dialysis catheter care 05-19 15:24: 32 05-19 23:11 :02 No 2000U PRN - SEE INSTRUCTIO NS, Starting on Sun05/19/24 at 0924, Until Sun05/19/24 at 1711, Routine, For Priming of Ports: After initial saline flush, prime each port with heparin according to the priming volume listed on each catheter port for catheter lock. [facility] pantoprazol e (PROTONIX) EC tablet 40 mg 05-19 14:00: 00 05-19 23:11 :02 No 40mg 40 mg, Oral, BID, First dose on Sun05/19/24 at 0800, Until Discontinu ed, Routine [facility] sucralfate 1 gram tablet 05-19 00:00: 00 Yes [id number] 1g Take 1 tablet by mouth before meals and at bedtime. [facility] pantoprazol e 40 mg EC tablet 05-19 00:00: 00 05-20 00:00 :00 No [id number] 40mg Take 1 tablet by mouth in the morning for 90 days. [facility] furosemide (LASIX) tablet 80 mg 05-18 15:15: 00 05-19 23:11 :02 No 80mg 80 mg, Oral, QAM+PM, First dose on Sun05/18/24 at 0915, Until Discontinu ed, Routine [facility] pantoprazol e (PROTONIX) injection 40 mg 05-18 02:00: 00 05-19 12:44 :09 No 40mg 40 mg, Slow IV Push, BID, First dose on 05/17/24 at 2000, Until Discontinu ed [facility] acetaminoph en (TYLENOL) tablet 650 mg 05-17 22:31: 46 05-19 23:11 :02 No 650mg 650 mg, Oral, Q6HPRN, Starting on 05/17/24 at 1631, Until 05/19/24 at 1711, Routine, Pain (scale 1-3), Pain (scale 4-6) [facility] sucralfate (CARAFATE) tablet 1 g 05-17 22:30: 00 Yes 1g 1 g, Oral, AC+HS, First dose on 05/17/24 at 1630, Until Discontinu ed, Routine [facility] pantoprazol e (PROTONIX) injection 80 mg 05-17 10:30: 00 05-17 10:04 :00 No 80mg 80 mg, Slow IV Push, ONCE, 1 dose, On 05/17/24 at 0430 [facility] atorvastati n (LIPITOR) tablet 80 mg 05-17 03:00: 00 05-19 23:11 :02 No 80mg 80 mg, Oral, QHS, First dose on Sun05/16/24 at 2100, Until Discontinu ed, Routine [facility] epoetin renny-epbx (RETACRIT) injection 7,000 Units 05-17 00:30: 00 05-17 00:39 :00 No [id number] 7,000 Units, Slow IV Push, DIALYSIS ONCE - [facility], 1 dose, On Sun05/16/24 at 1830, Routine [facility] NaCl 0.9% (NS) injection 10 mL 05-16 22:00: 00 05-17 01:00 :00 No 10mL 10 mL, Slow IV Push, DIALYSIS ONCE - [facility] DSU, 1 dose, On Sun05/16/24 at 1600, Routine [facility] heparin 1,000 unit/mL (10 mL) - dialysis catheter care 05-16 21:57: 28 05-19 23:11 :02 No 2000U PRN - SEE INSTRUCTIO NS, Starting on Sun05/16/24 at 1557, Until Sun05/19/24 at 1711, Routine, For Priming of Ports: After initial saline flush, prime each port with heparin according to the priming volume listed on each catheter port for catheter lock. [facility] ezetimibe (ZETIA) tablet 10 mg 05-16 15:00: 00 05-19 23:11 :02 No 10mg 10 mg, Oral, DAILY, First dose on Sun05/16/24 at 0900, Until Discontinu ed, [facility] 81 mg 05-16 15:00: 00 05-17 12:56 :48 No 81mg 81 mg, Oral, DAILY, First dose on Sun05/16/24 at 0900, Until Discontinu ed, Routine [facility] pantoprazol e (PROTONIX) EC tablet 40 mg 05-16 15:00: 05-17 09:45 :59 No 40mg 40 mg, Oral, DAILY, First dose on Sun05/16/24 at 0900, Until Discontinu ed, Routine [facility] Lidocaine (LIDOCARE) 4 % patch 2 Patch 05-15 15:00: 00 05-19 23:11 :02 No 2{patch } 2 Patch, Topical, Administer over 12 Hours, DAILY, First dose on Toshia 05/15/24 at 0900, Until Discontinu ed, Routine [facility] pantop[facility]ol [facility] (PROTONIX) injection 40 mg 05-15 14:00: 00 05-16 12:57 :37 No 40mg 40 mg, Slow IV Push, Q12H, First dose on Sun05/15/24 at 0800, Until Discontinu ed [facility] HYDROcodone -acetaminop hen (NORCO 5) tablet 1 tablet 05-15 13:51: 26 05-17 22:32 :09 No 1{tbl} 1 tablet, Oral, Q6HPRN, Starting on Sun05/15/24 at 0751, Until 05/17/24 at 1632, Routine, Pain (scale 4-6), Pain (scale 7-10) [facility] polyethylen e glycol 3350 powder 17 g 05-15 04:00: 00 05-19 23:11 :02 No 17g 17 g, Oral, DAILY, First dose on Sun05/14/24 at 2200, Until Discontinu ed, Routine [facility] sennosides (SENOKOT) tablet 8.6 mg 05-15 04:00: 00 05-19 23:11 :02 No 8.6mg 8.6 mg, Oral, DAILY, First dose on Sun05/14/24 at 2200, Until Discontinu ed, Routine [facility] fentanyl PF (SUBLIMAZE (PF)) injection 25 mcg 05-15 02:58: 24 05-15 13:51 :38 No 25ug 25 mcg, Slow IV Push, Q4HPRN, Starting on Sun05/14/24 at 2058, Until Toshia 05/15/24 at 0751, Routine, Pain (scale 7-10) [facility] epoetin renny-epbx (RETACRIT) injection 8,000 Units 05-15 02:45: 00 05-15 03:37 :00 No 8000U 8,000 Units, Slow IV Push, DIALYSIS ONCE - [facility], 1 dose, On Sun05/14/24 at 2045, Routine [facility] NaCl 0.9% (NS) injection 10 mL 05-15 02:45: 00 05-14 17:45 :00 No 10mL 10 mL, Slow IV Push, DIALYSIS ONCE - [facility], 1 dose, On Sun05/14/24 at 2045, Routine [facility] heparin 1,000 unit/mL (10 mL) - dialysis catheter care 05-15 02:30: 46 05-19 23:11 :02 No 2000U PRN - SEE INSTRUCTIO NS, Starting on Sun05/14/24 at 2030, Until Sun05/19/24 at 1711, Routine, For Priming of Ports: After initial saline flush, prime each port with heparin according to the priming volume listed on each catheter port for catheter lock. [facility] acetaminoph en (OFIRMEV) IV piggyback 1,000 mg 05-14 23:45: 00 05-14 23:54 :00 No 1000mg 1,000 mg, IV Piggyback, at 400 mL/hr Administer over 15 Minutes, ONCE, 1 dose, On Sun05/14/24 at 1745, Routine, Is the patient strict NPO and unable to tolerate oral medication s? Yes [facility] ondansetron (ZOFRAN (PF)) injection 4 mg 05-14 23:15: 41 05-17 22:32 :09 No 4mg 4 mg, Slow IV Push, Q6HPRN, Nausea and Vomiting (N/V), Starting on Sun05/14/24 at 1715, Please give medication over 2-5 minutes. [facility] cyclobenzap rine (FLEXERIL) tablet 5 mg 05-14 22:57: 39 05-19 23:11 :02 No 5mg 5 mg, Oral, TIDPRN, Starting on Sun05/14/24 at 1657, Until Sun05/19/24 at 1711, Routine, Muscle Spasms [facility] fentanyl PF (SUBLIMAZE (PF)) injection 25 mcg 05-14 22:45: 00 05-14 22:06 :00 No 25ug 25 mcg, Slow IV Push, ONCE, 1 dose, On Sun05/14/24 at 1645, Routine [facility] iopamidol (ISOVUE 300-100 mL) injection 200 mL 05-14 22:30: 00 05-14 22:30 :00 No [id number] 200mL 200 mL, Intravenou s, ONCE, 1 dose, On Sun05/14/24 at 1630, Routine [facility] ketorolac (TORADOL) injection 05-14 21:05: 52 05-14 21:05 :52 No PRN, Starting on Sun05/14/24 at 1505, Until Sun05/14/24 at 1505, Routine, [facility]-op [facility] ondansetron (ZOFRAN (PF)) injection 05-14 20:54: 06 05-14 20:54 :06 No Slow IV Push, PRN, Starting on Sun05/14/24 at 1454, Until Sun05/14/24 at 1454, Administer over 2-5 Minutes, Intra-op [facility] fentanyl PF (SUBLIMAZE (PF)) injection 05-14 20:41: 00 05-14 21:01 :30 No Slow IV Push, PRN, Starting on Sun05/14/24 at 1441, Until Sun05/14/24 at 1501, Routine, Intra-op [facility] glucagon (GLUCAGEN DIAGNOSTIC KIT) injection 05-14 19:58: 00 05-14 19:58 :00 No Intravenou s, PRN, Starting on Sun05/14/24 at 1358, Until Sun05/14/24 at 1358, Routine, Intra-op [facility] lidocaine 1% (PF) (XYLOCAINE) injection 05-14 19:44: 52 05-14 19:44 :52 No PRN, Starting on Sun05/14/24 at 1344, Until Sun05/14/24 at 1344, Routine, Intra-op [facility] NaCl 0.9% (NS) IV Line Priming and Flushing Fluid Only 250 mL 05-14 16:45: 00 05-14 16:45 :00 No 250mL 250 mL, IV Infusion, ONCE, 1 dose, On Sun05/14/24 at 1045, 250 mL [facility] vitamin B-12 (CYANOCOBAL CALZADA) tablet 1,000 mcg 05-14 15:00: 00 05-17 14:59 :00 No 1000ug 1,000 mcg, Oral, DAILY, 3 doses, First dose on Sun05/14/24 at 0900, Last dose on Sun05/16/24 at 0900, Routine [facility] foLIC acid (FOLATE) tablet 1 mg 05-14 15:00: 00 05-17 14:59 :00 No 1mg 1 mg, Oral, DAILY, 3 doses, First dose on Sun05/14/24 at 0900, Last dose on Sun05/16/24 at 0900, Routine [facility] Sliding Scale Insulin - Lispro (HumaLOG) 05-14 14:00: 00 05-19 23:11 :02 No Subcutaneo us, TID MEALS+HS, First dose on Sun05/14/24 at 0800, Until Discontinu ed, Routine [facility] glucagon HCL injection 1 mg 05-14 06:46: 27 05-19 23:11 :02 No 1mg 1 mg, Intramuscu lar, PRN, Starting on Sun05/14/24 at 0046, Until Sun05/19/24 at 1711, MINESH, Low blood sugar, Blood Glucose < or = 70 mg/dL and patient is NPO, unable to swallow or has mental changes. [facility] dextrose 50 % in water (D50W) injection 25 mL 05-14 06:46: 27 05-19 23:11 :02 No 25mL 25 mL, Slow IV Push, PRN, Starting on Sun05/14/24 at 0046, Until 05/19/24 at 1711, MINESH, Blood Glucose < or = 70 mg/dL and patient is NPO, unable to swallow or has mental status changes. [facility] pantoprazol e (PROTONIX) 80 mg in NaCl 0.9% (NS) 500 mL infusion 05-14 04:15: 00 05-15 04:14 :00 No 8mg/h 8 mg/hr (50 mL/hr), IV Infusion, CONTINUOUS , Starting on Sun05/13/24 at 2215, For 24 hours [facility] iopamidol (ISOVUE 370-500 mL) injection 80 mL 05-14 03:45: 00 05-14 03:45 :00 No [id number] 80mL 80 mL, Intravenou s, ONCE, 1 dose, On Sun05/13/24 at 2145, Routine [facility] pantoprazol e (PROTONIX) injection 80 mg 05-14 03:15: 00 05-14 03:21 :00 No 80mg 80 mg, Slow IV Push, ONCE, 1 dose, On Sun05/13/24 at 2115 [facility] ondansetron (ZOFRAN (PF)) injection 4 mg 05-14 01:15: 00 05-14 01:11 :00 No 4mg 4 mg, Slow IV Push, ONCE, 1 dose, On Sun05/13/24 at 1915, Administer over 2-5 Minutes, 2 mL [facility] epoetin renny-epbx (RETACRIT) injection 10,000 Units 05-12 16:00: 00 05-12 17:01 :00 No [id number] 10,000 Units, Subcutaneo us, DIALYSIS ONCE - PT ROOM, 1 dose, On Sun05/12/24 at 1000, Routine [facility] sacubitriL- valsartan (ENTRESTO) 24-26 mg tablet 05-12 00:00: 00 Yes [id number] Take 1 tablet twice daily as long as SBP > 110 [facility] allopurinoL 100 mg tablet 05-12 00:00: 00 06-12 05:59 :00 No [id number] 100mg Take 1 tablet by mouth every Sunday, and Sunday in the evening for 30 days. [facility] codeine-gua ifenesin (ROBITUSSIN AC) 10-100 mg/5 mL oral solution 5 mL 05-11 12:50: 51 05-12 20:15 :54 No 5mL 5 mL, Oral, Q4HPRN, Starting on 05/11/24 at 0650, Until 05/12/24 at 1415, Routine, Cough [facility] atropine 0.1 mg/mL injection 1 mg 05-11 02:32: 11 05-12 20:15 :54 No 1mg 1 mg, IV Push, PRN, 1 dose, Starting on 05/10/24 at 2032, Until 05/12/24 at 1415, Routine, Symptomati c Bradycardi a [facility] sodium ferric gluconate (FERRLECIT) 125 mg in NaCl 0.9% (NS) 100 mL IV piggyback 05-10 17:00: 00 05-10 17:09 :00 No [id number] 125mg 125 mg, IV Piggyback, ONCE, 1 dose, On 05/10/24 at 1100, Administer over 60 Minutes, 100 mL [facility] ergocalcife rol (vitamin d2) (CALCIFEROL ) capsule 50,000 Units 05-10 15:45: 00 05-10 17:10 :00 No [id number] 50,000 Units, Oral, ONCE, 1 dose, On 05/10/24 at 0945, Routine [facility] NaCl 0.9% (NS) injection 5 mL 05-10 12:00: 00 05-10 16:43 :00 No 5mL 5 mL, Slow IV Push, ONCE, 1 dose, On 05/10/24 at 0600, Routine [facility] epoetin renny-epbx (RETACRIT) injection 10,000 Units 05-10 03:00: 00 05-10 03:02 :00 No [id number] 10,000 Units, Subcutaneo us, ONCE AT 2000, 1 dose, On Sun05/09/24 at 2100, Routine, 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 [facility] heparin 1,000 unit/mL (10 mL) - dialysis catheter care 05-10 01:00: 00 05-10 00:52 :00 No [id number] 5000U ONCE, 1 dose, On Sun05/09/24 at 1900, Routine [facility] HYDROcodone -acetaminop hen (NORCO 5) tablet 1 tablet 05-09 19:42: 05 05-12 20:15 :54 No 1{tbl} 1 tablet, Oral, Q6HPRN, Starting on Sun05/09/24 at 1342, Until 05/12/24 at 1415, Routine, Pain (scale 4-6) [facility] albumin (ALBUMINAR) 25 % injection 12.5 g 05-09 18:30: 00 05-09 17:54 :00 No 12.5g 12.5 g, IV Infusion, ONCE, 1 dose, On Sun05/09/24 at 1230, 50 mL, PACU, Indication : NON-APPROV ED INDICATION - PHARMACY WILL CALL ORDERING PROVIDER, Specific Indication : post procedure low BP, Faculty Requesting Approval: JONY VAUGHAN, 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 Restricted medication : JONY VAUGHAN [facility] NaCl 0.9% (NS) IV infusion 100 mL 05-09 18:00: 00 05-12 01:06 :04 No 100mL at 75 mL/hr, IV Infusion, CONTINUOUS , Starting on Sun05/09/24 at 1200, Until Sun05/11/24 at 1906, Routine, PACU [facility] FENTanyl (PF) (SUBLIMAZE) injection 25 mcg 05-09 17:51: 41 05-12 22:15 :54 No 25ug 25 mcg, Slow IV Push, Q5MIN PRN, 4 doses, Starting on Sun05/09/24 at 1151, Until Sun05/12/24 at 1615, Routine, Pain Scale 4-6, PACU [facility] sodium chloride 0.9 % irrigation solution 05-09 14:45: 00 05-12 22:15 :54 No PRN, Starting on Sun05/09/24 at 0845, Until Sun05/12/24 at 1615, Intra-op [facility] lidocaine 1% (PF) (XYLOCAINE) injection 05-09 14:30: 00 05-12 22:15 :54 No PRN, Starting on Sun05/09/24 at 0830, Until Sun05/12/24 at 1615, Routine, Intra-op [facility] heparin 1,000 unit/mL injection 05-09 14:28: 00 05-12 22:15 :54 No PRN, Starting on Sun05/09/24 at 0828, Until Sun05/12/24 at 1615, Routine, Intra-op [facility] NaCl 0.9% (NS) IV infusion 05-09 14:28: 00 05-12 22:15 :54 No CONTINUOUS PRN, Starting on Sun05/09/24 at 0828, Until Sun05/12/24 at 1615, Routine, Intra-op [facility] lidocaine 2% (XYLOCAINE) 20 mg/mL (2 %) injection 05-09 14:15: 00 05-12 22:15 :54 No PRN, Starting on Sun05/09/24 at 0815, Until Sun05/12/24 at 1615, Routine, Intra-op [facility] sodium ferric gluconate (FERRLECIT) 125 mg in NaCl 0.9% (NS) 100 mL IV piggyback 05-08 16:45: 00 05-11 14:59 :00 No [id number] 125mg 125 mg, IV Piggyback, DAILY, 3 doses, First dose on Toshia 05/08/24 at 1045, Last dose on Sun05/10/24 at 0900, Administer over 60 Minutes, 100 mL [facility] sulfur hexafluorid e microsphr (LUMASON) injection 5 mL 05-07 18:15: 00 05-07 18:15 :00 No [id number] 5mL 5 mL, Intravenou s, ONCE, 1 dose, On Sun05/07/24 at 1215, Routine [facility] ezetimibe (ZETIA) tablet 10 mg 05-07 15:00: 00 05-12 20:15 :54 No 10mg 10 mg, Oral, DAILY, First dose on Sun05/07/24 at 0900, Until Discontinu ed, Routine [facility] aspirin chewable tablet 81 mg 05-07 15:00: 00 05-12 20:15 :54 No 81mg 81 mg, Oral, DAILY, First dose on Sun05/07/24 at 0900, Until Discontinu ed, Routine [facility] clopidogreL (PLAVIX) 75 mg tablet 75 mg 05-07 15:00: 00 05-07 17:20 :47 No 75mg 75 mg, Oral, DAILY, First dose on Sun05/07/24 at 0900, Until Discontinu ed, Routine [facility] isosorbide dinitrate (ISORDIL) tablet 20 mg 05-07 04:00: 00 05-12 03:53 :28 No 20mg 20 mg, Oral, Q8H, First dose on Sun05/06/24 at 2200, Until Discontinu ed, Routine [facility] hydrALAZINE (APRESOLINE ) tablet 25 mg 05-07 04:00: 00 05-12 00:40 :36 No 25mg 25 mg, Oral, Q8H, First dose on Sun05/06/24 at 2200, Until Discontinu ed, Routine [facility] heparin (porcine) injection 5,000 Units 05-07 04:00: 00 05-12 20:15 :54 No 5000U 5,000 Units, Subcutaneo us, Q8H, First dose on Sun05/06/24 at 2200, Until Discontinu ed, Routine [facility] insulin glargine (LANTUS U-100) injection 10 Units 05-07 03:00: 00 05-12 20:15 :54 No 10U 10 Units, Subcutaneo us, QHS, First dose on Sun05/06/24 at 2100, Until Discontinu ed, Routine [facility] Sliding Scale Insulin - Lispro (HumaLOG) 05-07 03:00: 00 05-12 20:15 :54 No Subcutaneo us, TID MEALS+HS, First dose on Sun05/06/24 at 2100, Until Discontinu ed, Routine [facility] atorvastati n (LIPITOR) tablet 80 mg 05-07 03:00: 00 05-12 20:15 :54 No 80mg 80 mg, Oral, QHS, First dose on Sun05/06/24 at 2100, Until Discontinu ed, Routine [facility] carvediloL (COREG) tablet 12.5 mg 05-07 02:00: 00 05-11 01:52 :57 No 12.5mg 12.5 mg, Oral, BID MEALS, First dose on Sun05/06/24 at 2000, Until Discontinu ed, Routine [facility] glucagon HCL injection 1 mg 05-07 01:45: 10 05-12 20:15 :54 No 1mg [facility] dextrose 50 % in water (D50W) injection 25 mL 05-07 01:45: 10 05-12 20:15 :54 No 25mL [facility] furosemide (LASIX) injection 80 mg 05-07 01:45: 00 05-12 00:40 :36 No 80mg 80 mg, Slow IV Push, BIDPC, First dose on Sun05/06/24 at 1945, Until Discontinu ed, Routine [facility] ondansetron (ZOFRAN (PF)) injection 4 mg 05-07 01:41: 41 05-12 20:15 :54 No 4mg 4 mg, Slow IV Push, Q6HPRN, Starting on Sun05/06/24 at 1941, Until Sun05/12/24 at 1415, Administer over 2-5 Minutes, 2 mL [facility] acetaminoph en (TYLENOL) tablet 650 mg 05-07 01:39: 53 05-12 20:15 :54 No 650mg [facility] ferrous sulfate 325 mg (65 mg iron) EC tablet 2023-04 00:00: 00 Yes 325mg Take 1 tablet by mouth. [facility] sacubitriL- valsartan (ENTRESTO) 24-26 mg tablet 2023-04 00:00: 00 05-12 00:00 :00 No [id number] 1{tbl} Take 1 tablet by mouth in the morning and 1 tablet in the evening. [facility] HYDROcodone -acetaminop hen (NORCO 5) tablet 1 tablet 2023-04 19:15: 00 02-17 19:18 :00 No 1{tbl} 1 tablet, Oral, ONCE, 1 dose, On Sun02/18/24 at 1415, MINESH [facility] magnesium sulfate in water 2 gram/50 mL (4 %) infusion 2 g 2023-04 0 22:30: 00 01-29 23:21 :00 No 2g 2 g, IV Piggyback, Administer over 60 Minutes, ONCE, 1 dose, On Sun01/30/24 at 1730, Routine [facility] furosemide (LASIX) injection 40 mg 2023-04 0 22:00: 00 01-29 22:12 :00 No 40mg 40 mg, IV Push, ONCE, 1 dose, On Sun01/30/24 at 1700, MINESH [facility] aspirin chewable tablet 324 mg 2023-04 21:45: 00 01-29 21:37 :00 No 324mg 324 mg, Oral, ONCE, 1 dose, On Sun01/30/24 at 1645, Routine [facility] famotidine (PEPCID (PF)) injection 20 mg 2023-04 21:00: 00 01-29 21:37 :00 No 20mg 20 mg, Slow IV Push, ONCE, 1 dose, On Sun01/30/24 at 1600, MINESH [facility] ISOSORBIDE DINITRATE 20 mg tablet 30 00:00: 00 05-12 00:00 :00 No [id number] TAKE 1 TABLET BY MOUTH EVERY 8 HOURS (TAKE IT WITH HYDRALAZIN E TABLETS) [facility] ENTRESTO 24-26 mg tablet 8-26 00:00: 00 03-21 00:00 :00 No [id number] 1{tbl} TAKE 1 TABLET BY MOUTH IN THE MORNING AND 1 IN THE EVENING [facility] ezetimibe (ZETIA) tablet 10 mg 09-08 14:00: 00 Yes 10mg [facility] allopurinoL (ZYLOPRIM) tablet 200 mg 09-08 14:00: 00 Yes 200mg [facility] atorvastati n (LIPITOR) tablet 80 mg 09-08 02:00: 00 Yes 80mg [facility] sacubitriL- valsartan (ENTRESTO) 24-26 mg tablet 1 tablet 09-08 01:00: 00 Yes 1{tbl} [facility] heparin (porcine) injection 5,000 Units 09-07 19:00: 00 Yes 5000U 5,000 Units, Subcutaneo us, Q8H, First dose on Sun09/08/23 at 1400, Until Discontinu ed, Routine [facility] hydrALAZINE (APRESOLINE ) tablet 25 mg 09-07 19:00: 00 Yes 25mg [facility] pantoprazol e (PROTONIX) EC tablet 40 mg 09-07 16:00: 00 Yes 40mg 40 mg, Oral, DAILY, First dose (after last modificati on) on 09/08/23 at 1100, Until Discontinu ed, Routine [facility] metoprolol succinate XL (TOPROL XL) tablet 50 mg 09-07 16:00: 00 Yes 50mg 50 mg, Oral, DAILY, First dose (after last modificati on) on 09/08/23 at 1100, Until Discontinu ed, Routine [facility] isosorbide dinitrate (ISORDIL) tablet 20 mg 09-07 16:00: 00 Yes 20mg 20 mg, Oral, Q8H, First dose (after last modificati on) on 09/08/23 at 1100, Until Discontinu ed, Routine [facility] furosemide (LASIX) tablet 80 mg 09-07 16:00: [...] Until Discontinu ed, Routine [Order 2 End] [facility] clopidogreL (PLAVIX) 75 mg tablet 75 mg 09-07 16:00: 00 Yes 75mg 75 mg, Oral, DAILY, First dose (after last modificati on) on 09/08/23 at 1100, Until Discontinu ed, Routine [facility] aspirin chewable tablet 81 mg 09-07 16:00: 00 Yes 81mg 81 mg, Oral, DAILY, First dose (after last modificati on) on 09/08/23 at 1100, Until Discontinu ed, Routine [facility] acetaminoph en (TYLENOL EXTRA STRENGTH) 500 mg tablet 09-07 12:21: 27 Yes 500mg Take 1 tablet by mouth every 6 (six) hours as needed for Pain. [facility] pantoprazol e 40 mg EC tablet 09-07 12:21: 27 05-19 00:00 :00 No 40mg Take 1 tablet by mouth in the morning. [facility] glucagon (GLUCAGEN DIAGNOSTIC KIT) injection 1 mg 09-07 11:49: 01 Yes 1mg 1 mg, Intramuscu lar, PRN, Starting on 09/08/23 at 0649, Until Discontinu ed, MINESH, Blood Glucose < or = 70 mg/dL and patient is NPO, unable to swallow or has mental changes. [facility] dextrose 50 % in water (D50W) injection 25 mL 09-07 11:49: 01 Yes 25mL 25 mL, Slow IV Push, PRN, Starting on 09/08/23 at 0649, Until Discontinu ed, MINESH, Blood Glucose < or = 70 mg/dL and patient is NPO, unable to swallow or has mental status changes. [facility] sacubitriL- valsartan 24-26 mg tablet 06-20 00:00: 00 12-16 00:00 :00 No [id number] 1{tbl} Take 1 tablet by mouth in the morning and 1 tablet in the evening. [facility] epoetin renny-epbx (RETACRIT) injection 10,000 Units 05-04 17:30: 00 05-04 16:31 :00 No [id number] 10,000 Units, Subcutaneo us, ONCE, 1 dose, On Sun05/04/23 at 1130, Routine [facility] lidocaine 1% (PF) (XYLOCAINE) injection 2022-04 15:43: 08 04-02 16:07 :26 No ONCE INTRA PROCEDURE, Starting on Sun04/02/23 at 0943, Until Sun04/02/23 at 1007, Routine, CV Intraproce dure [facility] midazolam (VERSED) injection 2022-04 15:23: 31 04-02 16:07 :26 No IV Push, ONCE INTRA PROCEDURE, Starting on Sun04/02/23 at 0923, Until Sun04/02/23 at 1007, Routine, CV Intraproce dure [facility] FENTanyl PF (SUBLIMAZE (PF)) injection 2022-04 15:23: 25 04-02 16:07 :26 No Slow IV Push, ONCE INTRA PROCEDURE, Starting on Sun04/02/23 at 0923, Until Sun04/02/23 at 1007, Routine, CV Intraproce dure [facility] acetaminoph en (TYLENOL EXTRA STRENGTH) 500 mg tablet 2022-04 11:51: 29 Yes 500mg Take 500 mg by mouth every 6 (six) hours as needed for Pain. [facility] pantoprazol e 40 mg EC tablet 2022-04 11:51: 29 Yes 40mg Take 1 tablet by mouth in the morning. [facility] acetaminoph en (TYLENOL EXTRA STRENGTH) 500 mg tablet 2022-04 06:28: 24 Yes 500mg Take 500 mg by mouth every 6 (six) hours as needed for Pain. [facility] pantoprazol e 40 mg EC tablet 2022-04 06:28: 24 Yes 40mg Take 1 tablet by mouth in the morning. [facility] metoprolol succinate XL 50 mg 24 hr tablet 2022-04 00:00: 00 05-12 00:00 :00 No [id number] 50mg Take 1 tablet by mouth in the morning. TAKE 1 TABLET BY MOUTH ONCE DAILY [facility] hydrALAZINE 25 mg tablet 2022-04 00:00: 00 01-20 00:00 :00 No [id number] 25mg Take 1 tablet by mouth every 8 (eight) hours. [facility] isosorbide dinitrate 20 mg tablet 2022-04 0-02 00:00: 00 01-20 00:00 :00 No [id number] 20mg Take 1 tablet by mouth every 8 (eight) hours. [facility] sacubitriL- valsartan 24-26 mg tablet 2022-04 00:00: 00 06-20 00:00 :00 No [id number] .5{tbl} Take 0.5 tablets by mouth in the morning and 0.5 tablets in the evening. [facility] furosemide 40 mg tablet 2022-04 00:00: 00 03-29 00:00 :00 No [id number] 80mg Take 2 tablets by mouth every morning and evening. [facility] allopurinoL (ZYLOPRIM) tablet 200 mg 01-18 14:00: 00 Yes 200mg 200 mg, Oral, DAILY, First dose (after last modificati on) on Sun01/18/23 at 0900, Until Discontinu ed, Routine [facility] insulin glargine (LANTUS U-100) injection 10 Units 01-18 02:00: 00 Yes 10U 10 Units, Subcutaneo us, QHS, First dose (after last modificati on) on Sun01/17/23 at 2100, Until Discontinu ed, Routine [facility] spironolact one 25 mg tablet 01-18 00:00: 00 01-22 00:00 :00 No [id number] 9103 12.5mg Take 0.5 tablets by mouth in the morning for 30 days. [facility] pneumoc 20-jatin conj-dip cr(PF) (PREVNAR 20 (PF)) injection 0.5 mL 01-17 15:44: 36 Yes .5mL 0.5 mL, Intramuscu lar, ONCE-PRIOR TO DISCHARGE, 1 dose, Starting on Sun01/17/23 at 1044, Until Discontinu ed, Routine, Give vaccine prior to discharge [facility] acetaminoph en (TYLENOL EXTRA STRENGTH) 500 mg tablet 01-17 13:24: 01 Yes 500mg Take 500 mg by mouth every 6 (six) hours as needed for Pain. [facility] pantoprazol e 40 mg EC tablet 01-17 13:24: 01 Yes 40mg Take 1 tablet by mouth in the morning. [facility] Sliding Scale Insulin - Lispro (HumaLOG) 01-17 13:00: 00 Yes Subcutaneo us, TID MEALS+HS, First dose (after last modificati on) on Sun01/17/23 at 0800, Until Discontinu ed, Routine [facility] atorvastati n (LIPITOR) tablet 80 mg 01-17 02:00: 00 Yes 80mg 80 mg, Oral, QHS, First dose on Sun01/16/23 at 2100, Until Discontinu ed, Routine [facility] insulin glargine (LANTUS U-100) injection 20 Units 01-17 02:00: 00 01-17 09:00 :44 No 20U 20 Units, Subcutaneo us, QHS, First dose on Sun01/16/23 at 2100, Until Discontinu ed, Routine [facility] sacubitriL- valsartan (ENTRESTO) 24-26 mg tablet 1 tablet 01-17 01:00: 00 Yes 1{tbl} 1 tablet, Oral, BID, First dose (after last modificati on) on Sun01/16/23 at 2000, Until Discontinu ed, Routine
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 Restricted medication : MEGADC [facility] Magnesium Oxide 420 mg Tab 01-17 00:00: 00 Yes [id number] 400mg Take 400 mg by mouth in the morning. [facility] allopurinoL 100 mg tablet 01-17 00:00: 00 05-12 00:00 :00 No [id number] 200mg Take 2 tablets by mouth in the morning. [facility] sacubitriL- valsartan 24-26 mg tablet 01-17 00:00: 00 01-22 00:00 :00 No [id number] 9103 1{tbl} Take 1 tablet by mouth in the morning and 1 tablet in the evening. Do all this for 30 days. [facility] spironolact one (ALDACTONE) tablet 12.5 mg 01-16 15:45: 00 Yes 12.5mg 12.5 mg, Oral, DAILY, First dose on Sun01/16/23 at 1045, Until Discontinu ed, Routine [facility] pantoprazol e (PROTONIX) EC tablet 40 mg 01-16 14:00: 00 Yes 40mg 40 mg, Oral, DAILY, First dose on Sun01/16/23 at 0900, Until Discontinu ed, Routine [facility] metoprolol succinate XL (TOPROL XL) tablet 50 mg 01-16 14:00: 00 Yes 50mg 50 mg, Oral, DAILY, First dose on Sun01/16/23 at 0900, Until Discontinu ed, Routine [facility] magnesium oxide (MAG-OX 400) tablet 400 mg 01-16 14:00: 00 Yes 400mg 400 mg, Oral, DAILY, First dose on Sun01/16/23 at 0900, Until Discontinu ed [facility] ezetimibe (ZETIA) tablet 10 mg 01-16 14:00: 00 Yes 10mg 10 mg, Oral, DAILY, First dose on Sun01/16/23 at 0900, Until Discontinu ed, Routine [facility] clopidogreL (PLAVIX) 75 mg tablet 75 mg 01-16 14:00: 00 Yes 75mg 75 mg, Oral, DAILY, First dose on Sun01/16/23 at 0900, Until Discontinu ed, Routine [facility] aspirin chewable tablet 81 mg 01-16 14:00: 00 Yes 81mg 81 mg, Oral, DAILY, First dose on Sun01/16/23 at 0900, Until Discontinu ed, Routine [facility] sulfur hexafluorid e microsphr (LUMASON) injection 5 mL 01-16 13:53: 00 01-16 13:53 :00 No [id number] 5mL 5 mL, Intravenou s, ONCE, 1 dose, On Sun01/16/23 at 0853, Routine
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 Restricted medication : JEWELSDC [facility] heparin (porcine) injection 5,000 Units 01-16 03:00: 00 Yes 5000U 5,000 Units, Subcutaneo us, Q8H, First dose on Sun01/15/23 at 2200, Until Discontinu ed, Routine [facility] Sliding Scale Insulin - Lispro (HumaLOG) 01-16 02:00: 00 01-17 09:00 :44 No Subcutaneo us, TID MEALS+HS, First dose on Sun01/15/23 at 2100, Until Discontinu ed, Routine [facility] furosemide (LASIX) injection 40 mg 01-16 01:00: 00 Yes 40mg 40 mg, Slow IV Push, Q12H, First dose on Sun01/15/23 at 2000, Until Discontinu ed, Routine [facility] glucagon (GLUCAGEN DIAGNOSTIC KIT) injection 1 mg 01-16 00:22: 44 Yes 1mg 1 mg, Intramuscu lar, PRN, Starting on Sun01/15/23 at 1922, Until Discontinu ed, MINESH, Blood Glucose < or = 70 mg/dL and patient is NPO, unable to swallow or has mental changes. [facility] dextrose 50 % in water (D50W) injection 25 mL 01-16 00:22: 44 Yes 25mL 25 mL, Slow IV Push, PRN, Starting on Sun01/15/23 at 1922, Until Discontinu ed, MINESH, Blood Glucose < or = 70 mg/dL and patient is NPO, unable to swallow or has mental status changes. [facility] acetaminoph en (TYLENOL) tablet 650 mg 01-15 20:20: 54 Yes 650mg 650 mg, Oral, Q6HPRN, Starting on Sun01/15/23 at 1520, Until Discontinu ed, Routine, Pain (scale 1-3) [facility] metoprolol tartrate (LOPRESSOR) tablet 25 mg 07-12 01:00: 00 Yes 25mg 25 mg, Oral, BID, First dose on Sun07/11/22 at 2000, Until Discontinu ed, Routine [facility] predniSONE (DELTASONE) tablet 40 mg 07-11 20:30: 00 07-11 20:49 :00 No 40mg 40 mg, Oral, ONCE, 1 dose, On Sun07/11/22 at 1530, MINESH [facility] predniSONE 20 mg tablet 07-11 00:00: 00 01-17 00:00 :00 No [id number] 9105 1 PO BID x 4 days [facility] metoprolol succinate XL 50 mg 24 hr tablet 07-03 00:00: 00 04-02 00:00 :00 No [id number] 50mg Take 1 tablet by mouth in the morning. TAKE 1 TABLET BY MOUTH ONCE DAILY [facility] sacubitriL- valsartan 24-26 mg tablet 07-03 00:00: 00 01-17 00:00 :00 No [id number] .5{tbl} Take 0.5 tablets by mouth in the morning and 0.5 tablets in the evening. [facility] metOLazone (ZAROXOLYN) tablet 2.5 mg 05-24 15:00: 00 Yes 2.5mg 2.5 mg, Oral, Q48H, First dose (after last modificati on) on Sun05/24/22 at 0900, Until Discontinu ed, Routine [facility] sacubitriL- valsartan (ENTRESTO) 24-26 mg tablet 0.5 tablet 05-23 15:15: 00 Yes .5{tbl} 0.5 tablet, Oral, BID, First dose (after last modificati on) on Sun05/23/22 at 0915, Until Discontinu ed, Routine
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 [facility] pantoprazol e 40 mg EC tablet 05-23 14:39: 12 Yes 40mg Take 40 mg by mouth daily. [facility] insulin glargine (LANTUS U-100) injection 8 Units 05-23 03:00: 00 Yes 8U 8 Units, Subcutaneo us, QHS, First dose (after last modificati on) on Sun05/22/22 at 2100, Until Discontinu ed, Routine [facility] Blood-Gluco se Meter Kit 05-23 00:00: 00 Yes [id number] Use TID, DX E11.9 (Brand upon insurance approval) [facility] Blood-Gluco se Meter Kit 05-23 00:00: 00 Yes [id number] Use TID, DX E11.9 (Brand upon insurance approval) [facility] Magnesium Oxide 420 mg Tab 05-23 00:00: 00 01-17 00:00 :00 No [id number] 9100 400mg Take 400 mg by mouth daily. [facility] sacubitriL- valsartan 24-26 mg tablet 05-23 00:00: 00 06-23 05:59 :00 No [id number] 9100 .5{tbl} Take 0.5 tablets by mouth in the morning and 0.5 tablets in the evening. Do all this for 30 days. [facility] furosemide (LASIX) injection 40 mg 05-21 02:00: 00 05-23 13:45 :35 No 40mg 40 mg, IV Push, Q12H, First dose (after last modificati on) on 05/20/22 at 2000, Until Discontinu ed, MINESH [facility] sacubitriL- valsartan (ENTRESTO) 24-26 mg tablet 1 tablet 05-21 02:00: 00 05-23 13:45 :10 No 1{tbl} 1 tablet, Oral, BID, First dose on 05/20/22 at 2000, Until Discontinu ed, Routine
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 Restricted medication : MARK TEJADA [facility] furosemide (LASIX) injection 40 mg 05-20 16:15: 00 05-20 16:18 :00 No 40mg 40 mg, Slow IV Push, ONCE, 1 dose, On 05/20/22 at 1015, Routine [facility] metOLazone (ZAROXOLYN) tablet 5 mg 05-20 15:30: 00 05-22 23:16 :20 No 5mg 5 mg, Oral, DAILY, First dose on 05/20/22 at 0930, Until Discontinu ed, Routine [facility] pantoprazol e (PROTONIX) EC tablet 40 mg 05-20 15:00: 00 Yes 40mg 40 mg, Oral, DAILY, First dose on 05/20/22 at 0900, Until Discontinu ed, Routine [facility] metoprolol succinate XL (TOPROL XL) tablet 50 mg 05-20 15:00: 00 Yes 50mg 50 mg, Oral, DAILY, First dose on 05/20/22 at 0900, Until Discontinu ed, Routine [facility] magnesium oxide (MAG-OX 400) tablet 400 mg 05-20 15:00: 00 Yes 400mg 400 mg, Oral, DAILY, First dose on 05/20/22 at 0900, Until Discontinu ed [facility] ezetimibe (ZETIA) tablet 10 mg 05-20 15:00: 00 Yes 10mg 10 mg, Oral, DAILY, First dose on 05/20/22 at 0900, Until Discontinu ed, Routine [facility] clopidogreL (PLAVIX) 75 mg tablet 75 mg 05-20 15:00: 00 Yes 75mg 75 mg, Oral, DAILY, First dose on Sun05/20/22 at 0900, Until Discontinu ed, Routine [facility] aspirin chewable tablet 81 mg 05-20 15:00: 00 Yes 81mg 81 mg, Oral, DAILY, First dose on Sun05/20/22 at 0900, Until Discontinu ed, Routine [facility] furosemide (LASIX) injection 40 mg 05-20 14:00: 00 05-20 15:26 :11 No 40mg 40 mg, IV Push, Q12H, First dose (after last reorder) on Sun05/20/22 at 0800, Until Discontinu ed, MINESH [facility] heparin (porcine) injection 5,000 Units 05-20 04:00: 00 Yes 5000U 5,000 Units, Subcutaneo us, Q8H, First dose on Sun05/19/22 at 2200, Until Discontinu ed, Routine [facility] Sliding Scale Insulin - Lispro (HumaLOG) + Fsbg Testing 05-20 03:00: 00 Yes Subcutaneo us, TID MEALS+HS, First dose on Sun05/19/22 at 2100, Until Discontinu ed, Routine [facility] atorvastati n (LIPITOR) tablet 80 mg 05-20 03:00: 00 Yes 80mg 80 mg, Oral, QHS, First dose on Sun05/19/22 at 2100, Until Discontinu ed, Routine [facility] insulin glargine (LANTUS U-100) injection 24 Units 05-20 03:00: 00 05-23 02:38 :35 No 24U 24 Units, Subcutaneo us, QHS, First dose on Sun05/19/22 at 2100, Until Discontinu ed, Routine [facility] furosemide (LASIX) injection 40 mg 05-20 02:00: 00 05-20 04:11 :50 No 40mg 40 mg, Slow IV Push, Q12H, First dose on Sun05/19/22 at 2000, Until Discontinu ed, Routine [facility] magnesium sulfate in water 2 gram/50 mL (4 %) infusion 2 g 05-20 01:00: 00 05-20 04:14 :00 No 2g 2 g, IV Piggyback, Administer over 60 Minutes, ONCE, 1 dose, On Sun05/19/22 at 1900, Routine [facility] glucagon (GLUCAGEN DIAGNOSTIC KIT) injection 1 mg 05-20 00:16: 53 Yes 1mg 1 mg, Intramuscu lar, PRN, Starting on Sun05/19/22 at 1816, Until Discontinu ed, MINESH, Blood Glucose < or = 70 mg/dL and patient is NPO, unable to swallow or has mental changes. [facility] dextrose 50 % in water (D50W) injection 25 mL 05-20 00:16: 53 Yes 25mL 25 mL, Slow IV Push, PRN, Starting on Sun05/19/22 at 1816, Until Discontinu ed, MINESH, Blood Glucose < or = 70 mg/dL and patient is NPO, unable to swallow or has mental status changes. [facility] acetaminoph en (TYLENOL) tablet 650 mg 05-20 00:13: 50 Yes 650mg 650 mg, Oral, Q6HPRN, Starting on Sun05/19/22 at 1813, Until Discontinu ed, Routine, Pain (scale 1-3) [facility] nitroglycer in (NITROSTAT) sublingual tablet 0.4 mg 05-20 00:13: 11 Yes .4mg 0.4 mg, Sublingual , Q5MIN PRN, Starting on Sun05/19/22 at 1813, Until Discontinu ed, Routine, Chest pain [facility] perflutren protein-A microsphr (OPTISON) injection 3 mL 05-19 20:00: 00 05-19 20:00 :00 No [id number] 3mL 3 mL, IV Push, ONCE, 1 dose, On Sun05/19/22 at 1400, Routine [facility] furosemide (LASIX) injection 40 mg 05-19 19:00: 00 05-19 18:54 :00 No 40mg 40 mg, IV Push, ONCE, 1 dose, On Sun05/19/22 at 1300, MINESH [facility] acetaminoph en (TYLENOL EXTRA STRENGTH) 500 mg tablet 05-19 18:17: 47 Yes 500mg Take 500 mg by mouth every 6 (six) hours as needed for Pain. [facility] pantoprazol e 40 mg EC tablet 05-19 18:17: 47 Yes 40mg Take 40 mg by mouth daily. [facility] ezetimibe 10 mg tablet 05-19 00:00: 00 06-02 00:00 :00 No 10mg Take 1 tablet by mouth in the morning. [facility] pantoprazol e 40 mg EC tablet 05-09 09:51: 37 Yes 40mg Take 40 mg by mouth daily. [facility] glimepiride 1 mg tablet 05-09 00:00: 00 05-12 00:00 :00 No TAKE 1 TABLET BY MOUTH ONCE DAILY WITH BREAKFAST OR THE FIRST MEAL OF THE DAY [facility] furosemide 40 mg tablet 05-09 00:00: 00 01-22 00:00 :00 No [id number] 40mg Take 1 tablet by mouth every morning and evening. [facility] lisinopriL 5 mg tablet 05-08 00:00: 00 06-12 00:00 :00 No 5mg Take 5 mg by mouth in the morning. [facility] metoprolol succinate XL 50 mg 24 hr tablet 04-24 00:00: 00 07-03 00:00 :00 No [id number] 50mg Take 1 tablet by mouth in the morning. TAKE 1 TABLET BY MOUTH ONCE DAILY [facility] magnesium oxide 420 mg Tab 2020-04 00:00: 00 05-23 00:00 :00 No [id number] 9100 400mg Take 400 mg by mouth daily. [facility] acetaminoph en (TYLENOL EXTRA STRENGTH) 500 mg tablet 2020-04 13:10: 17 Yes 500mg Take 1 tablet by mouth every 6 (six) hours as needed for Pain. [facility] pantoprazol e 40 mg EC tablet 2020-04 13:10: 17 Yes 40mg Take 1 tablet by mouth in the morning. [facility] spironolact one 25 mg tablet 2020-04 00:00: 00 05-18 00:00 :00 No [id number] 9100 25mg Take 1 tablet by mouth 2 (two) times daily. [facility] furosemide 40 mg tablet 2020-04 00:00: 00 05-09 00:00 :00 No [id number] 40mg Take 1 tablet by mouth every morning and evening. [facility] metoprolol succinate XL 50 mg 24 hr tablet 2020-04 00:00: 00 04-24 00:00 :00 No [id number] 50mg Take 1 tablet by mouth daily. TAKE 1 TABLET BY MOUTH ONCE DAILY [facility] Insulin [place], Disposable, (BD INSULIN PEN NEEDLE UF) 29 gauge x 1/2" Ndle 11-17 00:00: 00 Yes [id number] USE DIRECTED WITH KWIKPEN ONCE A DAY [facility] Insulin [place], Disposable, (BD INSULIN PEN NEEDLE UF) 29 gauge x 1/2" Ndle 11-17 00:00: 00 Yes [id number] USE DIRECTED WITH KWIKPEN ONCE A DAY [facility] TRESIBA FLEXTOUCH U-100 100 unit/mL (3 mL) InPn 06-05 00:00: 00 Yes [id number] INJECT 24 UNITS UNDER THE SKIN AT BEDTIME [facility] glipiZIDE XL 10 mg 24 hr tablet 06-01 00:00: 00 03-09 00:00 :00 No [id number] 20mg Take 2 tablets by mouth daily with breakfast. [facility] isosorbide mononitrate 30 mg 24 hr tablet 05-24 00:00: 00 03-01 00:00 :00 No [id number] 9100 30mg Take 1 tablet by mouth daily. [facility] lisinopril 5 mg tablet 2- 00:00: 00 03-01 00:00 :00 No [id number] 10mg Take 2 tablets by mouth daily. [facility] furosemide 40 mg tablet 1-29 00:00: 03-11 00:00 :00 No [id number] 20mg Take 0.5 tablets by mouth daily. [facility] spironolact one 25 mg tablet 1-06 00:00: 00 03-11 00:00 :00 No [id number] 9100 25mg Take 1 tablet by mouth daily. [facility] clopidogrel 75 mg tablet 2018-04 0- 00:00: 00 05-19 00:00 :00 No [id number] 9100 TAKE 1 TABLET BY MOUTH ONCE DAILY [facility] metFORMIN 1,000 mg tablet 2018-04 0-03 00:00: 00 03-09 00:00 :00 No [id number] TAKE ONE TABLET BY MOUTH ONCE DAILY WITH BREAKFAST [facility] allopurinol 100 mg tablet 4-02 00:00: 00 01-17 00:00 :00 No [id number] 9109 100mg Take 1 tablet by mouth daily. [facility] ACCU-CHEK MASON strip 3-14 00:00: 00 05-23 00:00 :00 No Use as directed, TID, DX:E11.9 [facility] Insulin Syringe-Nee dle U-100 0.5 mL 31 gauge x 5/16 Syrg 2- 00:00: 00 Yes [id number] Inject insulin 2 times a day. Dx code E11.9. [facility] Insulin Syringe-Nee dle U-100 0.5 mL 31 gauge x 5/16 Syrg 2-27 00:00: 00 Yes [id number] Inject insulin 2 times a day. Dx code E11.9. [facility] lancets (FREESTYLE LANCETS) [facility] 00:00: 00 Yes Use TID, DX E11.9 (Brand upon insurance approval) [facility] lancets (FREESTYLE LANCETS) 28 gauge [facility] [place] [place] 27 00:00: 00 Yes Use TID, DX E11.9 (Brand upon insurance approval) [facility] lancets-blo od glucose strips 30 gauge Cmpk 06-19 00:00: 00 05-23 00:00 :00 No 1{each} 1 Each 3 (three) times daily. Use TID, DX E11.9 (Brand upon insurance approval) Patient request Verio flex one touch. [facility] ipratropium 0.03 % nasal spray 2017-04 00:00: 00 Yes [id number] 2{spray } Use 2 Sprays in each nostril 3 (three) times daily. [facility] nitroglycer in (NITROSTAT) 0.4 mg sublingual tablet 2017-04 00:00: [id number] 1 tablet under the tongue every 5 (five) minutes as needed for Chest pain. [facility] Insulin [place], Disposable, 30 gauge x 5/16" Ndle 09-07 00:00: 00 Yes Use as directed [facility] Insulin [place], Disposable, 30 gauge x 5/16" Ndle 09-07 00:00: 00 Yes Use as directed [facility] Blood-Gluco se Meter Kit 2016-04 00:00: 00 05-23 00:00 :00 No [id number] Use TID, DX E11.9 (Brand upon insurance approval) [facility] aspirin 81 mg chewable tablet 12-16 00:00: 00 06-02 00:00 :00 No 81mg Take 1 tablet by mouth daily. [facility] Magnesium Oxide 400 MG Magnesium Oxide 400 MG No 1{table t_as_ne eded} QD Magnesium Oxide 400 MG Amoxicillin -Pot Clavulanate 500-125 MG Amoxicillin -Pot Clavulanate 500-125 MG No 1{table t} BID Amoxicilli n-Pot Clavulanat e 500-125 MG Tresiba 100 UNIT/ML Tresiba 100 UNIT/ML No Tresiba 100 UNIT/ML Midodrine HCl 10 MG Midodrine HCl 10 MG No 1{table t} BID Midodrine HCl 10 MG Furosemide 40 MG Furosemide 40 MG No 1{table t} BID Furosemide 40 MG Plavix 75 MG Plavix 75 MG No 1{table t} QD Plavix 75 MG hydrALAZINE HCl 25 MG hydrALAZINE HCl 25 MG No 1{table t_with_ food} BID hydrALAZIN E HCl 25 MG Ferrous Sulfate 325 (65 Fe) MG Ferrous Sulfate 325 (65 Fe) MG No 1{table t} QD Ferrous Sulfate 325 (65 Fe) MG Atorvastati n Calcium 80 MG Atorvastati n Calcium 80 MG No 1{table t} QD Atorvastat in Calcium 80 MG Metoprolol Succinate ER 50 MG Metoprolol Succinate ER 50 MG No 1{table t} QD Metoprolol Succinate ER 50 MG Immunizations Ordered Immunization Name Filled Immunization Name Date Status Comments Source Influenza Virus Vaccine Quad IM 3+ YRS 2023-12-16 00:00:00 Completed [facility] Pneumococcal Polysaccharide, PPSV23 (PNEUMOVAX) 2023-12-16 00:00:00 Completed [facility] Influenza Virus Vaccine 2023-12-16 00:00:00 Completed [facility] TDAP 2023-12-16 00:00:00 Completed [facility] Influenza Virus Vaccine Recomb Quad IM, Preserv and ABX Free 18-64 YRS 2023-12-16 00:00:00 Completed [facility] Influenza Virus Vaccine Quad IM 3+ YRS 2023-09-10 00:00:00 Completed [facility] Pneumococcal Polysaccharide, PPSV23 (PNEUMOVAX) 2023-09-10 00:00:00 Completed [facility] Influenza Virus Vaccine 2023-09-10 00:00:00 Completed [facility] TDAP 2023-09-10 00:00:00 Completed [facility] Influenza Virus Vaccine Recomb Quad IM, Preserv and ABX Free 18-64 YRS 2023-09-10 00:00:00 Completed [facility] Influenza Virus Vaccine Quad IM 3+ YRS 2023-09-08 05:23:00 Completed [facility] Pneumococcal Polysaccharide, PPSV23 (PNEUMOVAX) 2023-09-08 05:23:00 Completed [facility] Influenza Virus Vaccine 2023-09-08 05:23:00 Completed [facility] TDAP 2023-09-08 05:23:00 Completed [facility] Influenza Virus Vaccine Recomb Quad IM, Preserv and ABX Free 18-64 YRS 2023-09-08 05:23:00 Completed [facility] Influenza Virus Vaccine 2023-06-18 00:00:00 Completed [facility] TDAP 2023-06-18 00:00:00 Completed [facility] Influenza Virus Vaccine Recomb Quad IM, Preserv and ABX Free 18-64 YRS 2023-06-18 00:00:00 Completed [facility] Influenza Virus Vaccine Quad IM 3+ YRS 2023-06-18 00:00:00 Completed [facility] Pneumococcal Polysaccharide, PPSV23 (PNEUMOVAX) 2023-06-18 00:00:00 Completed [facility] Influenza Virus Vaccine Quad IM 3+ YRS 2023-05-04 10:00:00 Completed [facility] Pneumococcal Polysaccharide, PPSV23 (PNEUMOVAX) 2023-05-04 10:00:00 Completed [facility] Influenza Virus Vaccine 2023-05-04 10:00:00 Completed [facility] TDAP 2023-05-04 10:00:00 Completed [facility] Influenza Virus Vaccine Recomb Quad IM, Preserv and ABX Free 18-64 YRS 2023-05-04 10:00:00 Completed [facility] Influenza Virus Vaccine Quad IM 3+ YRS 2023-05-04 00:00:00 Completed [facility] Pneumococcal Polysaccharide, PPSV23 (PNEUMOVAX) 2023-05-04 00:00:00 Completed [facility] Influenza Virus Vaccine 2023-05-04 00:00:00 Completed [facility] TDAP 2023-05-04 00:00:00 Completed [facility] Influenza Virus Vaccine Recomb Quad IM, Preserv and ABX Free 18-64 YRS 2023-05-04 00:00:00 Completed [facility] Influenza Virus Vaccine Quad IM 3+ YRS 2023-05-04 00:00:00 Completed [facility] Pneumococcal Polysaccharide, PPSV23 (PNEUMOVAX) 2023-05-04 00:00:00 Completed [facility] Influenza Virus Vaccine 2023-05-04 00:00:00 Completed [facility] TDAP 2023-05-04 00:00:00 Completed [facility] Influenza Virus Vaccine Recomb Quad IM, Preserv and ABX Free 18-64 YRS 2023-05-04 00:00:00 Completed [facility] Influenza Virus Vaccine Quad IM 3+ YRS 2023-05-03 10:45:00 Completed [facility] Pneumococcal Polysaccharide, PPSV23 (PNEUMOVAX) 2023-05-03 10:45:00 Completed [facility] Influenza Virus Vaccine 2023-05-03 10:45:00 Completed [facility] TDAP 2023-05-03 10:45:00 Completed [facility] Influenza Virus Vaccine Recomb Quad IM, Preserv and ABX Free 18-64 YRS 2023-05-03 10:45:00 Completed [facility] Influenza Virus Vaccine Quad IM 3+ YRS 2023-05-03 10:00:00 Completed [facility] Pneumococcal Polysaccharide, PPSV23 (PNEUMOVAX) 2023-05-03 10:00:00 Completed [facility] Influenza Virus Vaccine 2023-05-03 10:00:00 Completed [facility] TDAP 2023-05-03 10:00:00 Completed [facility] Influenza Virus Vaccine Recomb Quad IM, Preserv and ABX Free 18-64 YRS 2023-05-03 10:00:00 Completed [facility] Influenza Virus Vaccine Quad IM 3+ YRS 2023-05-03 00:00:00 Completed [facility] Pneumococcal Polysaccharide, PPSV23 (PNEUMOVAX) 2023-05-03 00:00:00 Completed [facility] Influenza Virus Vaccine 2023-05-03 00:00:00 Completed [facility] TDAP 2023-05-03 00:00:00 Completed [facility] Influenza Virus Vaccine Recomb Quad IM, Preserv and ABX Free 18-64 YRS 2023-05-03 00:00:00 Completed [facility] Influenza Virus Vaccine Quad IM 3+ YRS 2023-04-13 00:00:00 Completed [facility] Pneumococcal Polysaccharide, PPSV23 (PNEUMOVAX) 2023-04-13 00:00:00 Completed [facility] Influenza Virus Vaccine 2023-04-13 00:00:00 Completed [facility] TDAP 2023-04-13 00:00:00 Completed [facility] Influenza Virus Vaccine Recomb Quad IM, Preserv and ABX Free 18-64 YRS 2023-04-13 00:00:00 Completed [facility] Influenza Virus Vaccine 2023-04-06 14:30:00 Completed [facility] TDAP 2023-04-06 14:30:00 Completed [facility] Influenza Virus Vaccine Recomb Quad IM, Preserv and ABX Free 18-64 YRS 2023-04-06 14:30:00 Completed [facility] Influenza Virus Vaccine Quad IM 3+ YRS 2023-04-06 14:30:00 Completed [facility] Pneumococcal Polysaccharide, PPSV23 (PNEUMOVAX) 2023-04-06 14:30:00 Completed [facility] Influenza Virus Vaccine Quad IM 3+ YRS 2023-04-02 10:00:00 Completed [facility] Pneumococcal Polysaccharide, PPSV23 (PNEUMOVAX) 2023-04-02 10:00:00 Completed [facility] Influenza Virus Vaccine 2023-04-02 10:00:00 Completed [facility] TDAP 2023-04-02 10:00:00 Completed [facility] Influenza Virus Vaccine Recomb Quad IM, Preserv and ABX Free 18-64 YRS 2023-04-02 10:00:00 Completed [facility] Influenza Virus Vaccine Quad IM 3+ YRS 2023-04-02 00:00:00 Completed [facility] Pneumococcal Polysaccharide, PPSV23 (PNEUMOVAX) 2023-04-02 00:00:00 Completed [facility] Influenza Virus Vaccine 2023-04-02 00:00:00 Completed [facility] TDAP 2023-04-02 00:00:00 Completed [facility] Influenza Virus Vaccine Recomb Quad IM, Preserv and ABX Free 18-64 YRS 2023-04-02 00:00:00 Completed [facility] Influenza Virus Vaccine Quad IM 3+ YRS 2023-04-02 00:00:00 Completed [facility] Pneumococcal Polysaccharide, PPSV23 (PNEUMOVAX) 2023-04-02 00:00:00 Completed [facility] Influenza Virus Vaccine 2023-04-02 00:00:00 Completed [facility] TDAP 2023-04-02 00:00:00 Completed [facility] Influenza Virus Vaccine Recomb Quad IM, Preserv and ABX Free 18-64 YRS 2023-04-02 00:00:00 Completed [facility] Influenza Virus Vaccine Quad IM 3+ YRS 2023-03-29 14:30:00 Completed [facility] Pneumococcal Polysaccharide, PPSV23 (PNEUMOVAX) 2023-03-29 14:30:00 Completed [facility] Influenza Virus Vaccine 2023-03-29 14:30:00 Completed [facility] TDAP 2023-03-29 14:30:00 Completed [facility] Influenza Virus Vaccine Recomb Quad IM, Preserv and ABX Free 18-64 YRS 2023-03-29 14:30:00 Completed [facility] Influenza Virus Vaccine Quad IM 3+ YRS 2023-03-29 13:00:00 Completed [facility] Pneumococcal Polysaccharide, PPSV23 (PNEUMOVAX) 2023-03-29 13:00:00 Completed [facility] Influenza Virus Vaccine 2023-03-29 13:00:00 Completed [facility] TDAP 2023-03-29 13:00:00 Completed [facility] Influenza Virus Vaccine Recomb Quad IM, Preserv and ABX Free 18-64 YRS 2023-03-29 13:00:00 Completed [facility] Influenza Virus Vaccine Quad IM 3+ YRS 2023-03-23 00:00:00 Completed [facility] Pneumococcal Polysaccharide, PPSV23 (PNEUMOVAX) 2023-03-23 00:00:00 Completed [facility] Influenza Virus Vaccine 2023-03-23 00:00:00 Completed [facility] TDAP 2023-03-23 00:00:00 Completed [facility] Influenza Virus Vaccine Recomb Quad IM, Preserv and ABX Free 18-64 YRS 2023-03-23 00:00:00 Completed [facility] Influenza Virus Vaccine Quad IM 3+ YRS 2023-03-16 00:00:00 Completed [facility] Pneumococcal Polysaccharide, PPSV23 (PNEUMOVAX) 2023-03-16 00:00:00 Completed [facility] Influenza Virus Vaccine 2023-03-16 00:00:00 Completed [facility] TDAP 2023-03-16 00:00:00 Completed [facility] Influenza Virus Vaccine Recomb Quad IM, Preserv and ABX Free 18-64 YRS 2023-03-16 00:00:00 Completed [facility] Influenza Virus Vaccine Quad IM 3+ YRS 2023-03-14 07:45:00 Completed [facility] Pneumococcal Polysaccharide, PPSV23 (PNEUMOVAX) 2023-03-14 07:45:00 Completed [facility] Influenza Virus Vaccine 2023-03-14 07:45:00 Completed [facility] TDAP 2023-03-14 07:45:00 Completed [facility] Influenza Virus Vaccine Recomb Quad IM, Preserv and ABX Free 18-64 YRS 2023-03-14 07:45:00 Completed [facility] Influenza Virus Vaccine Quad IM 3+ YRS 2023-03-14 00:00:00 Completed [facility] Pneumococcal Polysaccharide, PPSV23 (PNEUMOVAX) 2023-03-14 00:00:00 Completed [facility] Influenza Virus Vaccine 2023-03-14 00:00:00 Completed [facility] TDAP 2023-03-14 00:00:00 Completed [facility] Influenza Virus Vaccine Recomb Quad IM, Preserv and ABX Free 18-64 YRS 2023-03-14 00:00:00 Completed [facility] Influenza Virus Vaccine 2023-01-22 16:30:00 Completed [facility] TDAP 2023-01-22 16:30:00 Completed [facility] Influenza Virus Vaccine Quad .5 mL IM 6+ MO (FLUZONE/FLULAVAL/F LUARIX) 2023-01-22 16:30:00 Completed [facility] Influenza Virus Vaccine Recomb Quad IM, Preserv and ABX Free 18-64 YRS 2023-01-22 16:30:00 Completed [facility] Pneumococcal Polysaccharide, PPSV23 (PNEUMOVAX) 2023-01-22 16:30:00 Completed [facility] Influenza Virus Vaccine 2023-01-18 00:00:00 Completed [facility] TDAP 2023-01-18 00:00:00 Completed [facility] Influenza Virus Vaccine Quad .5 mL IM 6+ MO (FLUZONE/FLULAVAL/F LUARIX) 2023-01-18 00:00:00 Completed [facility] Influenza Virus Vaccine Recomb Quad IM, Preserv and ABX Free 18-64 YRS 2023-01-18 00:00:00 Completed [facility] Pneumococcal Polysaccharide, PPSV23 (PNEUMOVAX) 2023-01-18 00:00:00 Completed [facility] Pneumococcal Polysaccharide, PPSV23 (PNEUMOVAX) 2023-01-15 12:30:00 Completed [facility] Influenza Virus Vaccine 2023-01-15 12:30:00 Completed [facility] TDAP 2023-01-15 12:30:00 Completed [facility] Influenza Virus Vaccine Quad .5 mL IM 6+ MO (FLUZONE/FLULAVAL/F LUARIX) 2023-01-15 12:30:00 Completed [facility] Influenza Virus Vaccine Recomb Quad IM, Preserv and ABX Free 18-64 YRS 2023-01-15 12:30:00 Completed [facility] Influenza Virus Vaccine 2023-01-11 10:40:00 Completed [facility] TDAP 2023-01-11 10:40:00 Completed [facility] Influenza Virus Vaccine Quad .5 mL IM 6+ MO (FLUZONE/FLULAVAL/F LUARIX) 2023-01-11 10:40:00 Completed [facility] Influenza Virus Vaccine Recomb Quad IM, Preserv and ABX Free 18-64 YRS 2023-01-11 10:40:00 Completed [facility] Pneumococcal Polysaccharide, PPSV23 (PNEUMOVAX) 2023-01-11 10:40:00 Completed [facility] Prevnar 20 (PCV20) Prevnar 20 (PCV20) 2022-06-14 08:49:00 Completed [facility] Boostrix (Tdap) Boostrix (Tdap) 2022-06-14 08:49:00 Completed [facility] Flucelvax - multidose vial Flucelvax - multidose vial 2022-03-30 14:26:00 Completed [facility] Flucelvax - multidose vial Flucelvax - multidose vial 2022-03-30 14:26:00 Completed [facility] Flucelvax - multidose vial Flucelvax - multidose vial 2022-03-30 14:26:00 Completed [facility] Flucelvax - multidose vial Flucelvax - multidose vial 2022-03-30 14:26:00 Completed [facility] Flucelvax - multidose vial Flucelvax - multidose vial 2022-03-30 14:26:00 Completed [facility] Flucelvax - multidose vial Flucelvax - multidose vial 2021-02-25 15:40:00 Completed [facility] Flucelvax - multidose vial Flucelvax - multidose vial 2021-02-25 15:40:00 Completed [facility] Flucelvax - multidose vial Flucelvax - multidose vial 2021-02-25 15:40:00 Completed [facility] Flucelvax - multidose vial Flucelvax - multidose vial 2021-02-25 15:40:00 Completed [facility] Flucelvax - multidose vial Flucelvax - multidose vial 2021-02-25 15:40:00 Completed [facility] Flucelvax - multidose vial Flucelvax - multidose vial 2021-02-25 15:40:00 Completed [facility] Flucelvax - multidose vial Flucelvax - multidose vial 2021-02-25 15:40:00 Completed [facility] Flucelvax - multidose vial Flucelvax - multidose vial 2021-02-25 15:40:00 Completed [facility] Flucelvax - multidose vial Flucelvax - multidose vial 2021-02-25 15:40:00 Completed [facility] Flucelvax - multidose vial Flucelvax - multidose vial 2021-02-25 15:40:00 Completed [facility] Flucelvax - multidose vial Flucelvax - multidose vial 2021-02-25 15:40:00 Completed [facility] TDAP 2020-01-09 00:00:00 Completed [facility] Influenza Virus Vaccine Recomb Quad IM, Preserv and ABX Free 65 [facility] 2020-01-09 00:00:00 Completed [facility] TDAP 2020-01-09 00:00:00 Completed [facility] Influenza Virus Vaccine Recomb Quad IM, Preserv and ABX Free 65 [facility] 2020-01-09 00:00:00 Completed [facility] TDAP 2020-01-09 00:00:00 Completed [facility] Influenza Virus Vaccine Recomb Quad IM, Preserv and ABX Free 65 [facility] 2020-01-09 00:00:00 Completed [facility] TDAP 2020-01-09 00:00:00 Completed [facility] Influenza Virus Vaccine Recomb Quad IM, Preserv and ABX Free -64 [facility] 2020-01-09 00:00:00 Completed [facility] TDAP 2020-01-09 00:00:00 Completed [facility] Influenza Virus Vaccine Recomb Quad IM, Preserv and ABX Free [facility]64 [facility] 2020-01-09 00:00:00 Completed [facility] TDAP 2020-01-09 00:00:00 Completed [facility] Influenza Virus Vaccine Recomb Quad IM, Preserv and ABX Free 64 [facility] 2020-01-09 00:00:00 Completed [facility] TDAP 2020-01-09 00:00:00 Completed [facility] Influenza Virus Vaccine Recomb Quad IM, Preserv and ABX Free 18-64 [facility] 2020-01-09 00:00:00 Completed [facility] TDAP 2020-01-09 00:00:00 Completed [facility] Influenza Virus Vaccine Recomb Quad IM, Preserv and ABX Free 18-64 YRS 2020-01-09 00:00:00 Completed [facility] TDAP 2020-01-09 00:00:00 Completed [facility] Influenza Virus Vaccine Recomb Quad IM, Preserv and ABX Free 18-64 YRS 2020-01-09 00:00:00 Completed [facility] TDAP 2020-01-09 00:00:00 Completed [facility] Influenza Virus Vaccine Recomb Quad IM, Preserv and ABX Free 18-64 YRS 2020-01-09 00:00:00 Completed [facility] TDAP 2020-01-09 00:00:00 Completed [facility] Influenza Virus Vaccine Recomb Quad IM, Preserv and ABX Free 18-64 YRS 2020-01-09 00:00:00 Completed [facility] TDAP 2020-01-09 00:00:00 Completed [facility] Influenza Virus Vaccine Recomb Quad IM, Preserv and ABX Free 18-64 YRS 2020-01-09 00:00:00 Completed [facility] TDAP 2020-01-09 00:00:00 Completed [facility] Influenza Virus Vaccine Recomb Quad IM, Preserv and ABX Free 18-64 YRS 2020-01-09 00:00:00 Completed [facility] TDAP 2020-01-09 00:00:00 Completed [facility] Influenza Virus Vaccine Recomb Quad IM, Preserv and ABX Free 18-64 YRS 2020-01-09 00:00:00 Completed [facility] TDAP 2020-01-09 00:00:00 Completed [facility] Influenza Virus Vaccine Recomb Quad IM, Preserv and ABX Free 18-64 YRS 2020-01-09 00:00:00 Completed [facility] TDAP 2020-01-09 00:00:00 Completed [facility] Influenza Virus Vaccine Recomb Quad IM, Preserv and ABX Free 18-64 YRS 2020-01-09 00:00:00 Completed [facility] TDAP 2020-01-09 00:00:00 Completed [facility] Influenza Virus Vaccine Recomb Quad IM, Preserv and ABX Free 18-64 YRS 2020-01-09 00:00:00 Completed [facility] TDAP 2020-01-09 00:00:00 Completed [facility] Influenza Virus Vaccine Recomb Quad IM, Preserv and ABX Free 18-64 YRS 2020-01-09 00:00:00 Completed [facility] TDAP 2020-01-09 00:00:00 Completed [facility] Influenza Virus Vaccine Recomb Quad IM, Preserv and ABX Free 18-64 YRS 2020-01-09 00:00:00 Completed [facility] TDAP 2020-01-09 00:00:00 Completed [facility] Influenza Virus Vaccine Recomb Quad IM, Preserv and ABX Free 18-64 YRS 2020-01-09 00:00:00 Completed [facility] TDAP 2020-01-09 00:00:00 Completed [facility] Influenza Virus Vaccine Recomb Quad IM, Preserv and ABX Free 18-64 YRS 2020-01-09 00:00:00 Completed [facility] TDAP 2020-01-09 00:00:00 Completed [facility] Influenza Virus Vaccine Recomb Quad IM, Preserv and ABX Free 18-64 YRS 2020-01-09 00:00:00 Completed [facility] TDAP 2020-01-09 00:00:00 Completed [facility] Influenza Virus Vaccine Recomb Quad IM, Preserv and ABX Free 18-64 YRS 2020-01-09 00:00:00 Completed [facility] TDAP 2020-01-09 00:00:00 Completed [facility] Influenza Virus Vaccine Recomb Quad IM, Preserv and ABX Free 18-64 YRS 2020-01-09 00:00:00 Completed [facility] TDAP 2020-01-09 00:00:00 Completed [facility] Influenza Virus Vaccine Recomb Quad IM, Preserv and ABX Free 18-64 YRS 2020-01-09 00:00:00 Completed [facility] TDAP 2020-01-09 00:00:00 Completed [facility] Influenza Virus Vaccine Recomb Quad IM, Preserv and ABX Free 18-64 YRS 2020-01-09 00:00:00 Completed [facility] TDAP 2020-01-09 00:00:00 Completed [facility] Influenza Virus Vaccine Recomb Quad IM, Preserv and ABX Free 18-64 YRS 2020-01-09 00:00:00 Completed [facility] TDAP 2020-01-09 00:00:00 Completed [facility] Influenza Virus Vaccine Recomb Quad IM, Preserv and ABX Free 18-64 YRS 2020-01-09 00:00:00 Completed [facility] Influenza Virus Vaccine 2018-01-24 00:00:00 Completed [facility] Pneumococcal Polysaccharide, PPSV23 (PNEUMOVAX) 2018-01-24 00:00:00 Completed [facility] Influenza Virus Vaccine Quad .5 mL IM 6+ MO 2018-01-24 00:00:00 Completed [facility] Influenza Virus Vaccine 2018-01-24 00:00:00 Completed [facility] Pneumococcal Polysaccharide, PPSV23 (PNEUMOVAX) 2018-01-24 00:00:00 Completed [facility] Influenza Virus Vaccine Quad .5 mL IM 6+ MO 2018-01-24 00:00:00 Completed [facility] Influenza Virus Vaccine 2018-01-24 00:00:00 Completed [facility] Pneumococcal Polysaccharide, PPSV23 (PNEUMOVAX) 2018-01-24 00:00:00 Completed [facility] Influenza Virus Vaccine Quad .5 mL IM 6+ MO 2018-01-24 00:00:00 Completed [facility] Influenza Virus Vaccine 2018-01-24 00:00:00 Completed [facility] Pneumococcal Polysaccharide, PPSV23 (PNEUMOVAX) 2018-01-24 00:00:00 Completed [facility] Influenza Virus Vaccine Quad .5 mL IM 6+ MO 2018-01-24 00:00:00 Completed [facility] Influenza Virus Vaccine 2018-01-24 00:00:00 Completed [facility] Pneumococcal Polysaccharide, PPSV23 (PNEUMOVAX) 2018-01-24 00:00:00 Completed [facility] Influenza Virus Vaccine Quad .5 mL IM 6+ MO 2018-01-24 00:00:00 Completed [facility] Influenza Virus Vaccine 2018-01-24 00:00:00 Completed [facility] Pneumococcal Polysaccharide, PPSV23 (PNEUMOVAX) 2018-01-24 00:00:00 Completed [facility] Influenza Virus Vaccine Quad .5 mL IM 6+ MO 2018-01-24 00:00:00 Completed [facility] Influenza Virus Vaccine 2018-01-24 00:00:00 Completed [facility] Pneumococcal Polysaccharide, PPSV23 (PNEUMOVAX) 2018-01-24 00:00:00 Completed [facility] Influenza Virus Vaccine Quad .5 mL IM 6+ MO 2018-01-24 00:00:00 Completed [facility] Influenza Virus Vaccine 2018-01-24 00:00:00 Completed [facility] Pneumococcal Polysaccharide, PPSV23 (PNEUMOVAX) 2018-01-24 00:00:00 Completed [facility] Influenza Virus Vaccine Quad .5 mL IM 6+ MO 2018-01-24 00:00:00 Completed [facility] Influenza Virus Vaccine 2018-01-24 00:00:00 Completed [facility] Pneumococcal Polysaccharide, PPSV23 (PNEUMOVAX) 2018-01-24 00:00:00 Completed [facility] Influenza Virus Vaccine Quad .5 mL IM 6+ MO 2018-01-24 00:00:00 Completed [facility] Influenza Virus Vaccine 2018-01-24 00:00:00 Completed [facility] Pneumococcal Polysaccharide, PPSV23 (PNEUMOVAX) 2018-01-24 00:00:00 Completed [facility] Influenza Virus Vaccine Quad .5 mL IM 6+ MO 2018-01-24 00:00:00 Completed [facility] Influenza Virus Vaccine 2018-01-24 00:00:00 Completed [facility] Pneumococcal Polysaccharide, PPSV23 (PNEUMOVAX) 2018-01-24 00:00:00 Completed [facility] Influenza Virus Vaccine Quad .5 mL IM 6+ MO 2018-01-24 00:00:00 Completed [facility] Influenza Virus Vaccine 2018-01-24 00:00:00 Completed [facility] Pneumococcal Polysaccharide, PPSV23 (PNEUMOVAX) 2018-01-24 00:00:00 Completed [facility] Influenza Virus Vaccine Quad .5 mL IM 6+ MO 2018-01-24 00:00:00 Completed [facility] Influenza Virus Vaccine 2018-01-24 00:00:00 Completed [facility] Pneumococcal Polysaccharide, PPSV23 (PNEUMOVAX) 2018-01-24 00:00:00 Completed [facility] Influenza Virus Vaccine Quad .5 mL IM 6+ MO 2018-01-24 00:00:00 Completed [facility] [facility] Influenza Virus Vaccine 2018-01-24 00:00:00 Completed [facility] Pneumococcal Polysaccharide, PPSV23 (PNEUMOVAX) 2018-01-24 00:00:00 Completed [facility] Influenza Virus Vaccine Quad .5 mL IM 6+ MO 2018-01-24 00:00:00 Completed [facility] Influenza Virus Vaccine 2018-01-24 00:00:00 Completed [facility] Pneumococcal Polysaccharide, PPSV23 (PNEUMOVAX) 2018-01-24 00:00:00 Completed [facility] Influenza Virus Vaccine Quad .5 mL IM 6+ MO 2018-01-24 00:00:00 Completed [facility] Influenza Virus Vaccine 2018-01-24 00:00:00 Completed [facility] Pneumococcal Polysaccharide, PPSV23 (PNEUMOVAX) 2018-01-24 00:00:00 Completed [facility] Influenza Virus Vaccine Quad .5 mL IM 6+ MO 2018-01-24 00:00:00 Completed [facility] Influenza Virus Vaccine 2018-01-24 00:00:00 Completed [facility] Pneumococcal Polysaccharide, PPSV23 (PNEUMOVAX) 2018-01-24 00:00:00 Completed [facility] Influenza Virus Vaccine Quad .5 mL IM 6+ MO 2018-01-24 00:00:00 Completed [facility] Influenza Virus Vaccine 2018-01-24 00:00:00 Completed [facility] Pneumococcal Polysaccharide, PPSV23 (PNEUMOVAX) 2018-01-24 00:00:00 Completed [facility] Influenza Virus Vaccine Quad .5 mL IM 6+ MO 2018-01-24 00:00:00 Completed [facility] Influenza Virus Vaccine 2018-01-24 00:00:00 Completed [facility] Pneumococcal Polysaccharide, PPSV23 (PNEUMOVAX) 2018-01-24 00:00:00 Completed [facility] Influenza Virus Vaccine Quad .5 mL IM 6+ MO 2018-01-24 00:00:00 Completed [facility] Influenza Virus Vaccine 2018-01-24 00:00:00 Completed [facility] Pneumococcal Polysaccharide, PPSV23 (PNEUMOVAX) 2018-01-24 00:00:00 Completed [facility] Influenza Virus Vaccine Quad .5 mL IM 6+ MO 2018-01-24 00:00:00 Completed [facility] Influenza Virus Vaccine 2018-01-24 00:00:00 Completed [facility] Pneumococcal Polysaccharide, PPSV23 (PNEUMOVAX) 2018-01-24 00:00:00 Completed [facility] Influenza Virus Vaccine Quad .5 mL IM 6+ MO 2018-01-24 00:00:00 Completed [facility] Influenza Virus Vaccine 2018-01-24 00:00:00 Completed [facility] Pneumococcal Polysaccharide, PPSV23 (PNEUMOVAX) 2018-01-24 00:00:00 Completed [facility] Influenza Virus Vaccine Quad .5 mL IM 6+ MO 2018-01-24 00:00:00 Completed [facility] Influenza Virus Vaccine 2018-01-24 00:00:00 Completed [facility] Pneumococcal Polysaccharide, PPSV23 (PNEUMOVAX) 2018-01-24 00:00:00 Completed [facility] Influenza Virus Vaccine Quad .5 mL IM 6+ MO 2018-01-24 00:00:00 Completed [facility] Influenza Virus Vaccine 2018-01-24 00:00:00 Completed [facility] Pneumococcal Polysaccharide, PPSV23 (PNEUMOVAX) 2018-01-24 00:00:00 Completed [facility] Influenza Virus Vaccine Quad .5 mL IM 6+ MO 2018-01-24 00:00:00 Completed [facility] Influenza Virus Vaccine 2018-01-24 00:00:00 Completed [facility] Pneumococcal Polysaccharide, PPSV23 (PNEUMOVAX) 2018-01-24 00:00:00 Completed [facility] Influenza Virus Vaccine Quad .5 mL IM 6+ MO 2018-01-24 00:00:00 Completed [facility] Influenza Virus Vaccine 2018-01-24 00:00:00 Completed [facility] Pneumococcal Polysaccharide, PPSV23 (PNEUMOVAX) 2018-01-24 00:00:00 Completed [facility] Influenza Virus Vaccine Quad .5 mL IM 6+ MO 2018-01-24 00:00:00 Completed [facility] Influenza Virus Vaccine 2018-01-24 00:00:00 Completed [facility] Pneumococcal Polysaccharide, PPSV23 (PNEUMOVAX) 2018-01-24 00:00:00 Completed [facility] Influenza Virus Vaccine Quad .5 mL IM 6+ MO 2018-01-24 00:00:00 Completed [facility] Influenza Virus Vaccine 2018-01-24 00:00:00 Completed [facility] Pneumococcal Polysaccharide, PPSV23 (PNEUMOVAX) 2018-01-24 00:00:00 Completed [facility] Influenza Virus Vaccine Quad .5 mL IM 6+ MO 2018-01-24 00:00:00 Completed [facility] Pneumococcal Polysaccharide, PPSV23 (PNEUMOVAX) 2018-01-24 00:00:00 Completed Influenza Virus Vaccine Quad .5 mL IM 6+ MO (FLUZONE/FLULAVAL/F LUARIX) 2018-01-24 00:00:00 Completed Influenza Virus Vaccine Quad IM 3+ YRS 2017-02-12 00:00:00 Completed [facility] Influenza Virus Vaccine Quad IM 3+ YRS 2017-02-12 00:00:00 Completed [facility] Influenza Virus Vaccine Quad IM 3+ YRS 2017-02-12 00:00:00 Completed [facility] Influenza Virus Vaccine Quad IM 3+ YRS 2017-02-12 00:00:00 Completed [facility] Influenza Virus Vaccine Quad IM 3+ YRS 2017-02-12 00:00:00 Completed [facility] Influenza Virus Vaccine Quad IM 3+ YRS 2017-02-12 00:00:00 Completed [facility] Influenza Virus Vaccine Quad IM 3+ YRS 2017-02-12 00:00:00 Completed [facility] Influenza Virus Vaccine Quad IM 3+ YRS 2017-02-12 00:00:00 Completed [facility] Influenza Virus Vaccine Quad IM 3+ YRS 2017-02-12 00:00:00 Completed [facility] Influenza Virus Vaccine Quad IM 3+ YRS 2017-02-12 00:00:00 Completed [facility] Influenza Virus Vaccine Quad IM 3+ YRS 2017-02-12 00:00:00 Completed [facility] Influenza Virus Vaccine Quad IM 3+ YRS 2017-02-12 00:00:00 Completed [facility] Influenza Virus Vaccine Quad IM 3+ YRS 2017-02-12 00:00:00 Completed [facility] Influenza Virus Vaccine Quad IM 3+ YRS 2017-02-12 00:00:00 Completed [facility] Influenza Virus Vaccine Quad IM 3+ YRS 2017-02-12 00:00:00 Completed [facility] Influenza Virus Vaccine Quad IM 3+ YRS 2017-02-12 00:00:00 Completed [facility] Influenza Virus Vaccine Quad IM 3+ YRS 2017-02-12 00:00:00 Completed [facility] Influenza Virus Vaccine Quad IM 3+ YRS 2017-02-12 00:00:00 Completed [facility] Influenza Virus Vaccine Quad IM 3+ YRS 2017-02-12 00:00:00 Completed [facility] Influenza Virus Vaccine Quad IM 3+ YRS 2017-02-12 00:00:00 Completed [facility] Influenza Virus Vaccine Quad IM 3+ YRS 2017-02-12 00:00:00 Completed [facility] Influenza Virus Vaccine Quad IM 3+ YRS 2017-02-12 00:00:00 Completed [facility] Influenza Virus Vaccine Quad IM 3+ YRS 2017-02-12 00:00:00 Completed [facility] Influenza Virus Vaccine Quad IM 3+ YRS 2017-02-12 00:00:00 Completed [facility] Influenza Virus Vaccine Quad IM 3+ YRS 2017-02-12 00:00:00 Completed [facility] Influenza Virus Vaccine Quad IM 3+ YRS 2017-02-12 00:00:00 Completed [facility] Influenza Virus Vaccine Quad IM 3+ YRS 2017-02-12 00:00:00 Completed [facility] Influenza Virus Vaccine Quad IM 3+ YRS 2017-02-12 00:00:00 Completed [facility] Influenza Virus Vaccine Quad IM 3+ YRS 2017-02-12 00:00:00 Completed [facility] Influenza Virus Vaccine Quad IM 3+ YRS 2016-02-03 00:00:00 Completed [facility] Pneumococcal Polysaccharide, PPSV23 (PNEUMOVAX) 2016-02-03 00:00:00 Completed [facility] Influenza Virus Vaccine Quad IM 3+ YRS 2016-02-03 00:00:00 Completed [facility] Pneumococcal Polysaccharide, PPSV23 (PNEUMOVAX) 2016-02-03 00:00:00 Completed [facility] Influenza Virus Vaccine Quad IM 3+ YRS 2016-02-03 00:00:00 Completed [facility] Pneumococcal Polysaccharide, PPSV23 (PNEUMOVAX) 2016-02-03 00:00:00 Completed [facility] Influenza Virus Vaccine Quad IM 3+ YRS 2016-02-03 00:00:00 Completed [facility] Pneumococcal Polysaccharide, PPSV23 (PNEUMOVAX) 2016-02-03 00:00:00 Completed [facility] Influenza Virus Vaccine Quad IM 3+ YRS 2016-02-03 00:00:00 Completed [facility] Pneumococcal Polysaccharide, PPSV23 (PNEUMOVAX) 2016-02-03 00:00:00 Completed [facility] Influenza Virus Vaccine Quad IM 3+ YRS 2016-02-03 00:00:00 Completed [facility] Pneumococcal Polysaccharide, PPSV23 (PNEUMOVAX) 2016-02-03 00:00:00 Completed [facility] Influenza Virus Vaccine Quad IM 3+ YRS 2016-02-03 00:00:00 Completed [facility] Pneumococcal Polysaccharide, PPSV23 (PNEUMOVAX) 2016-02-03 00:00:00 Completed [facility] Influenza Virus Vaccine Quad IM 3+ YRS 2016-02-03 00:00:00 Completed [facility] Pneumococcal Polysaccharide, PPSV23 (PNEUMOVAX) 2016-02-03 00:00:00 Completed [facility] Influenza Virus Vaccine Quad IM 3+ YRS 2016-02-03 00:00:00 Completed [facility] Pneumococcal Polysaccharide, PPSV23 (PNEUMOVAX) 2016-02-03 00:00:00 Completed [facility] Influenza Virus Vaccine Quad IM 3+ YRS 2016-02-03 00:00:00 Completed [facility] Pneumococcal Polysaccharide, PPSV23 (PNEUMOVAX) 2016-02-03 00:00:00 Completed [facility] Influenza Virus Vaccine Quad IM 3+ YRS 2016-02-03 00:00:00 Completed [facility] Pneumococcal Polysaccharide, PPSV23 (PNEUMOVAX) 2016-02-03 00:00:00 Completed [facility] Influenza Virus Vaccine Quad IM 3+ YRS 2016-02-03 00:00:00 Completed [facility] Pneumococcal Polysaccharide, PPSV23 (PNEUMOVAX) 2016-02-03 00:00:00 Completed [facility] Influenza Virus Vaccine Quad IM 3+ YRS 2016-02-03 00:00:00 Completed [facility] Pneumococcal Polysaccharide, PPSV23 (PNEUMOVAX) 2016-02-03 00:00:00 Completed [facility] Influenza Virus Vaccine Quad IM 3+ YRS 2016-02-03 00:00:00 Completed [facility] Pneumococcal Polysaccharide, PPSV23 (PNEUMOVAX) 2016-02-03 00:00:00 Completed [facility] Influenza Virus Vaccine Quad IM 3+ YRS 2016-02-03 00:00:00 Completed [facility] Pneumococcal Polysaccharide, PPSV23 (PNEUMOVAX) 2016-02-03 00:00:00 Completed [facility] Influenza Virus Vaccine Quad IM 3+ YRS 2016-02-03 00:00:00 Completed [facility] Pneumococcal Polysaccharide, PPSV23 (PNEUMOVAX) 2016-02-03 00:00:00 Completed [facility] Influenza Virus Vaccine Quad IM 3+ YRS 2016-02-03 00:00:00 Completed [facility] Pneumococcal Polysaccharide, PPSV23 (PNEUMOVAX) 2016-02-03 00:00:00 Completed [facility] Influenza Virus Vaccine Quad IM 3+ YRS 2016-02-03 00:00:00 Completed [facility] Pneumococcal Polysaccharide, PPSV23 (PNEUMOVAX) 2016-02-03 00:00:00 Completed [facility] Influenza Virus Vaccine Quad IM 3+ YRS 2016-02-03 00:00:00 Completed [facility] Pneumococcal Polysaccharide, PPSV23 (PNEUMOVAX) 2016-02-03 00:00:00 Completed [facility] Influenza Virus Vaccine Quad IM 3+ YRS 2016-02-03 00:00:00 Completed [facility] Pneumococcal Polysaccharide, PPSV23 (PNEUMOVAX) 2016-02-03 00:00:00 Completed [facility] Influenza Virus Vaccine Quad IM 3+ YRS 2016-02-03 00:00:00 Completed [facility] Pneumococcal Polysaccharide, PPSV23 (PNEUMOVAX) 2016-02-03 00:00:00 Completed [facility] Influenza Virus Vaccine Quad IM 3+ YRS 2016-02-03 00:00:00 Completed [facility] Pneumococcal Polysaccharide, PPSV23 (PNEUMOVAX) 2016-02-03 00:00:00 Completed [facility] Influenza Virus Vaccine Quad IM 3+ YRS 2016-02-03 00:00:00 Completed [facility] Pneumococcal Polysaccharide, PPSV23 (PNEUMOVAX) 2016-02-03 00:00:00 Completed [facility] Influenza Virus Vaccine Quad IM 3+ YRS 2016-02-03 00:00:00 Completed [facility] Pneumococcal Polysaccharide, PPSV23 (PNEUMOVAX) 2016-02-03 00:00:00 Completed [facility] Influenza Virus Vaccine Quad IM 3+ YRS 2016-02-03 00:00:00 Completed [facility] Pneumococcal Polysaccharide, PPSV23 (PNEUMOVAX) 2016-02-03 00:00:00 Completed [facility] Influenza Virus Vaccine Quad IM 3+ YRS 2016-02-03 00:00:00 Completed [facility] Pneumococcal Polysaccharide, PPSV23 (PNEUMOVAX) 2016-02-03 00:00:00 Completed [facility] Influenza Virus Vaccine Quad IM 3+ YRS 2016-02-03 00:00:00 Completed [facility] Pneumococcal Polysaccharide, PPSV23 (PNEUMOVAX) 2016-02-03 00:00:00 Completed [facility] Influenza Virus Vaccine Quad IM 3+ YRS 2016-02-03 00:00:00 Completed [facility] Pneumococcal Polysaccharide, PPSV23 (PNEUMOVAX) 2016-02-03 00:00:00 Completed [facility] Prevnar 20 (PCV20) Prevnar 20 (PCV20) Unknown Completed [facility] Fluarix (IIV4) - SDS - 0.5mL Fluarix (IIV4) - SDS - 0.5mL Unknown Completed [facility] Flucelvax (ccIIV4) - MDV - 0.5mL Flucelvax (ccIIV4) - MDV - 0.5mL Unknown Completed [facility] Boostrix (Tdap) Boostrix (Tdap) Unknown Completed [facility] Prevnar 20 (PCV20) Prevnar 20 (PCV20) Unknown Completed [facility] Fluarix (IIV4) - SDS - 0.5mL Fluarix (IIV4) - SDS - 0.5mL Unknown Completed [facility] Flucelvax (ccIIV4) - MDV - 0.5mL Flucelvax (ccIIV4) - MDV - 0.5mL Unknown Completed [facility] Boostrix (Tdap) Boostrix (Tdap) Unknown Completed [facility] Prevnar 20 (PCV20) Prevnar 20 (PCV20) Unknown Completed [facility] Fluarix (IIV4) - SDS - 0.5mL Fluarix (IIV4) - SDS - 0.5mL Unknown Completed [facility] Flucelvax (ccIIV4) - MDV - 0.5mL Flucelvax (ccIIV4) - MDV - 0.5mL Unknown Completed [facility] Boostrix (Tdap) Boostrix (Tdap) Unknown Completed [facility] Prevnar 20 (PCV20) Prevnar 20 (PCV20) Unknown Completed [facility] Fluarix (IIV4) - SDS - 0.5mL Fluarix (IIV4) - SDS - 0.5mL Unknown Completed [facility] Flucelvax (ccIIV4) - MDV - 0.5mL Flucelvax (ccIIV4) - MDV - 0.5mL Unknown Completed [facility] Boostrix (Tdap) Boostrix (Tdap) Unknown Completed [facility] Prevnar 20 (PCV20) Prevnar 20 (PCV20) Unknown Completed [facility] Fluarix (IIV4) - SDS - 0.5mL Fluarix (IIV4) - SDS - 0.5mL Unknown Completed [facility] Flucelvax (ccIIV4) - MDV - 0.5mL Flucelvax (ccIIV4) - MDV - 0.5mL Unknown Completed [facility] Boostrix (Tdap) Boostrix (Tdap) Unknown Completed [facility] Prevnar 20 (PCV20) Prevnar 20 (PCV20) Unknown Completed [facility] Fluarix (IIV4) - SDS - 0.5mL Fluarix (IIV4) - SDS - 0.5mL Unknown Completed [facility] Flucelvax (ccIIV4) - MDV - 0.5mL Flucelvax (ccIIV4) - MDV - 0.5mL Unknown Completed [facility] Boostrix (Tdap) Boostrix (Tdap) Unknown Completed [facility] Prevnar 20 (PCV20) Prevnar 20 (PCV20) Unknown Completed [facility] Fluarix (IIV4) - SDS - 0.5mL Fluarix (IIV4) - SDS - 0.5mL Unknown Completed [facility] Flucelvax (ccIIV4) - MDV - 0.5mL Flucelvax (ccIIV4) - MDV - 0.5mL Unknown Completed [facility] Boostrix (Tdap) Boostrix (Tdap) Unknown Completed [facility] Prevnar 20 (PCV20) Prevnar 20 (PCV20) Unknown Completed [facility] Fluarix (IIV4) - SDS - 0.5mL Fluarix (IIV4) - SDS - 0.5mL Unknown Completed [facility] Flucelvax (ccIIV4) - MDV - 0.5mL Flucelvax (ccIIV4) - MDV - 0.5mL Unknown Completed [facility] Boostrix (Tdap) Boostrix (Tdap) Unknown Completed [facility] Prevnar 20 (PCV20) Prevnar 20 (PCV20) Unknown Completed [facility] Fluarix (IIV4) - SDS - 0.5mL Fluarix (IIV4) - SDS - 0.5mL Unknown Completed [facility] Flucelvax (ccIIV4) - MDV - 0.5mL Flucelvax (ccIIV4) - MDV - 0.5mL Unknown Completed [facility] Boostrix (Tdap) Boostrix (Tdap) Unknown Completed [facility] Prevnar 20 (PCV20) Prevnar 20 (PCV20) Unknown Completed [facility] Fluarix (IIV4) - SDS - 0.5mL Fluarix (IIV4) - SDS - 0.5mL Unknown Completed [facility] Flucelvax (ccIIV4) - MDV - 0.5mL Flucelvax (ccIIV4) - MDV - 0.5mL Unknown Completed [facility] Boostrix (Tdap) Boostrix (Tdap) Unknown Completed [facility] Prevnar 20 (PCV20) Prevnar 20 (PCV20) Unknown Completed [facility] Fluarix (IIV4) - SDS - 0.5mL Fluarix (IIV4) - SDS - 0.5mL Unknown Completed [facility] Flucelvax (ccIIV4) - MDV - 0.5mL Flucelvax (ccIIV4) - MDV - 0.5mL Unknown Completed [facility] Boostrix (Tdap) Boostrix (Tdap) Unknown Completed [facility] Prevnar 20 (PCV20) Prevnar 20 (PCV20) Unknown Completed [facility] Fluarix Fluarix Unknown Completed [facility] Flucelvax - multidose vial Flucelvax - multidose vial Unknown Completed [facility] Boostrix (Tdap) Boostrix (Tdap) Unknown Completed [facility] Prevnar 20 (PCV20) Prevnar 20 (PCV20) Unknown Completed [facility] Fluarix Fluarix Unknown Completed [facility] Flucelvax - multidose vial Flucelvax - multidose vial Unknown Completed [facility] Boostrix (Tdap) Boostrix (Tdap) Unknown Completed [facility] Prevnar 20 (PCV20) Prevnar 20 (PCV20) Unknown Completed [facility] Fluarix Fluarix Unknown Completed [facility] Flucelvax - multidose vial Flucelvax - multidose vial Unknown Completed [facility] Boostrix (Tdap) Boostrix (Tdap) Unknown Completed [facility] Prevnar 20 (PCV20) Prevnar 20 (PCV20) Unknown Completed [facility] Fluarix Fluarix Unknown Completed [facility] Flucelvax - multidose vial Flucelvax - multidose vial Unknown Completed [facility] Boostrix (Tdap) Boostrix (Tdap) Unknown Completed [facility] Prevnar 20 (PCV20) Prevnar 20 (PCV20) Unknown Completed [facility] Fluarix Fluarix Unknown Completed [facility] Flucelvax - multidose vial Flucelvax - multidose vial Unknown Completed [facility] Boostrix (Tdap) Boostrix (Tdap) Unknown Completed [facility] Prevnar 20 (PCV20) Prevnar 20 (PCV20) Unknown Completed [facility] Fluarix Fluarix Unknown Completed [facility] Flucelvax - multidose vial Flucelvax - multidose vial Unknown Completed [facility] Boostrix (Tdap) Boostrix (Tdap) Unknown Completed [facility] Prevnar 20 (PCV20) Prevnar 20 (PCV20) Unknown Completed [facility] Fluarix Fluarix Unknown Completed [facility] Flucelvax - multidose vial Flucelvax - multidose vial Unknown Completed [facility] Boostrix (Tdap) Boostrix (Tdap) Unknown Completed [facility] Prevnar 20 (PCV20) Prevnar 20 (PCV20) Unknown Completed [facility] Fluarix Fluarix Unknown Completed [facility] Flucelvax - multidose vial Flucelvax - multidose vial Unknown Completed [facility] Boostrix (Tdap) Boostrix (Tdap) Unknown Completed [facility] Prevnar 20 (PCV20) Prevnar 20 (PCV20) Unknown Completed [facility] Fluarix Fluarix Unknown Completed [facility] Flucelvax - multidose vial Flucelvax - multidose vial Unknown Completed [facility] Boostrix (Tdap) Boostrix (Tdap) Unknown Completed [facility] Vital Signs Vital Name Observation Time Observation Value Comments S ource height 2024-11-25 09:45:00 69.5 [in_i] Comm on [facility] weight 2024-11-25 09:45:00 144 [lb_av] Comm on [facility] temperature 2024-11-25 09:45:00 98.1 [degF] Com mon [facility] bmi 2024-11-25 09:45:00 20.96 kg/m2 Comm on [facility] oximetry 2024-11-25 09:45:00 99 % Commo n [facility] respiratory rate 2024-11-25 09:45:00 16 /min [facility] blood pressure systolic 2024-11-25 09:45:00 112 mm[Hg] [facility] blood pressure diastolic 2024-11-25 09:45:00 52 mm[Hg] [facility] Systolic blood pressure 2024-07-15 15:27:00 103 mm[Hg] General acute hospital Diastolic blood pressure 2024-07-15 15:27:00 60 mm[Hg] General acute hospital Heart rate 2024-07-15 15:27:00 75 /min [facility] Body temperature 2024-07-15 15:27:00 36.28 Marina [facility] Respiratory rate 2024-07-15 15:27:00 18 /min [facility] Body height 2024-07-15 15:27:00 175.3 cm [facility] Body weight 2024-07-15 15:27:00 73.936 kg [facility] 2024-07-15 15:27:00 24.07 kg/m2 [facility] Oxygen saturation in Arterial blood by Pulse oximetry 2024-07-15 15:27:00 99 /min General acute hospital height 2024-06-06 11:00:00 69.5 [in_i] Comm on [facility] weight 2024-06-06 11:00:00 176.8 [lb_av] Co mmon [facility] temperature 2024-06-06 11:00:00 97.2 [degF] Com mon [facility] bmi 2024-06-06 11:00:00 25.73 kg/m2 Comm on [facility] oximetry 2024-06-06 11:00:00 99 % Commo n [facility] respiratory rate 2024-06-06 11:00:00 16 /min [facility] blood pressure systolic 2024-06-06 11:00:00 118 mm[Hg] [facility] blood pressure diastolic 2024-06-06 11:00:00 58 mm[Hg] [facility] Systolic blood pressure 2024-06-03 00:12:00 117 mm[Hg] General acute hospital Diastolic blood pressure 2024-06-03 00:12:00 54 mm[Hg] General acute hospital Heart rate 2024-06-03 00:12:00 87 /min [facility] Body temperature 2024-06-02 20:47:00 36.22 Marina [facility] Respiratory rate 2024-06-02 20:47:00 18 /min [facility] Body weight 2024-06-02 20:47:00 81.7 kg [facility] BMI 2024-06-02 20:47:00 28.21 kg/m2 [facility] Oxygen saturation in Arterial blood by Pulse oximetry 2024-06-02 13:58:00 98 /min General acute hospital Body height 2024-05-30 23:38:00 170.2 cm [facility] Systolic blood pressure 2024-05-30 07:48:00 95 mm[Hg] General acute hospital Diastolic blood pressure 2024-05-30 07:48:00 57 mm[Hg] General acute hospital Heart rate 2024-05-30 07:48:00 94 /min [facility] Respiratory rate 2024-05-30 07:48:00 28 /min [facility] Oxygen saturation in Arterial blood by Pulse oximetry 2024-05-30 07:48:00 99 /min General acute hospital Body temperature 2024-05-30 07:41:00 36.78 Marina [facility] Body height 2024-05-30 00:55:00 175.3 cm [facility] Body weight 2024-05-30 00:55:00 76.658 kg [facility] BMI 2024-05-30 00:55:00 24.96 kg/m2 [facility] height 2024-05-23 07:50:00 69.5 [in_i] Comm on [facility] weight 2024-05-23 07:50:00 156 [lb_av] Comm on [facility] bmi 2024-05-23 07:50:00 22.7 kg/m2 Commo n [facility] Systolic blood pressure 2024-05-19 19:50:00 126 mm[Hg] General acute hospital Diastolic blood pressure 2024-05-19 19:50:00 57 mm[Hg] General acute hospital Heart rate 2024-05-19 19:50:00 84 /min [facility] Body temperature 2024-05-19 19:50:00 35.78 Marina [facility] Respiratory rate 2024-05-19 19:50:00 18 /min [facility] Oxygen saturation in Arterial blood by Pulse oximetry 2024-05-19 19:50:00 94 /min [facility] acute hospital Body weight 2024-05-19 19:05:00 74.9 kg [facility] BMI 2024-05-19 19:05:00 24.38 kg/m2 [facility] Body height 2024-05-15 15:00:00 175.3 cm [facility] Systolic blood pressure 2024-05-17 20:30:00 100 mm[Hg] General acute hospital Diastolic blood pressure 2024-05-17 20:30:00 58 mm[Hg] General acute hospital Heart rate 2024-05-17 20:30:00 76 /min Un[facility] Respiratory rate 2024-05-17 20:30:00 17 /min [facility] Oxygen saturation in Arterial blood by Pulse oximetry 2024-05-17 20:30:00 98 /min General acute hospital Body temperature 2024-05-17 20:00:00 36.39 Marina [facility] Body height 2024-05-15 15:00:00 175.3 cm [facility] Body weight 2024-05-15 15:00:00 72.576 kg [facility] BMI 2024-05-15 15:00:00 24.38 kg/m2 [facility] Systolic blood pressure 2024-05-12 19:00:00 124 mm[Hg] General acute hospital Diastolic blood pressure 2024-05-12 19:00:00 49 mm[Hg] General acute hospital Heart rate 2024-05-12 19:00:00 73 /min Unive [facility] Respiratory rate 2024-05-12 19:00:00 19 /min [facility] Oxygen saturation in Arterial blood by Pulse oximetry 2024-05-12 19:00:00 95 /min [facility] acute hospital Body temperature 2024-05-12 17:20:00 36.22 Marina [facility] Body weight 2024-05-12 17:20:00 70.3 kg [facility] BMI 2024-05-12 17:20:00 22.89 kg/m2 [facility] Body height 2024-05-06 23:41:00 175.3 cm [facility] Systolic blood pressure 2024-05-09 12:48:00 110 mm[Hg] General acute hospital Diastolic blood pressure 2024-05-09 12:48:00 63 mm[Hg] General acute hospital Heart rate 2024-05-09 12:48:00 67 /min Un[facility] Body temperature 2024-05-09 12:48:00 36.94 Marina [facility] Respiratory rate 2024-05-09 12:48:00 20 /min [facility] Oxygen saturation in Arterial blood by Pulse oximetry 2024-05-09 12:48:00 96 /min [facility] acute hospital Body weight 2024-05-09 09:50:00 72.485 kg [facility] BMI 2024-05-09 09:50:00 22.89 kg/m2 [facility] Body height 2024-05-06 23:41:00 175.3 cm [facility] Systolic blood pressure 2024-04-10 19:03:00 133 mm[Hg] General acute hospital Diastolic blood pressure 2024-04-10 19:03:00 64 mm[Hg] General acute hospital Heart rate 2024-04-10 19:03:00 79 /min Unive [facility] Body temperature 2024-04-10 19:03:00 36.61 Marina [facility] Respiratory rate 2024-04-10 19:03:00 20 /min [facility] Body height 2024-04-10 19:03:00 175.3 cm [facility] Body weight 2024-04-10 19:03:00 74.844 kg [facility] BMI 2024-04-10 19:03:00 24.37 kg/m2 [facility] Oxygen saturation in Arterial blood by Pulse oximetry 2024-04-10 19:03:00 100 /min [facility] acute hospital Systolic blood pressure 2024-02-18 18:47:00 124 mm[Hg] General acute hospital Diastolic blood pressure 2024-02-18 18:47:00 61 mm[Hg] General acute hospital Heart rate 2024-02-18 18:47:00 80 /min Un[facility] Body temperature 2024-02-18 18:47:00 36.5 Marina [facility] Respiratory rate 2024-02-18 18:47:00 16 /min [facility] Body height 2024-02-18 18:47:00 175.3 cm [facility] Body weight 2024-02-18 18:47:00 74.844 kg [facility] BMI 2024-02-18 18:47:00 24.37 kg/m2 [facility] Oxygen saturation in Arterial blood by Pulse oximetry 2024-02-18 18:47:00 100 /min General acute hospital height 2024-02-15 14:00:00 69.5 [in_i] Comm on [facility] weight 2024-02-15 14:00:00 156 [lb_av] Comm on [facility] temperature 2024-02-15 14:00:00 97.2 [degF] Com mon [facility] bmi 2024-02-15 14:00:00 22.7 kg/m2 Commo n [facility] oximetry 2024-02-15 14:00:00 97 % Commo n [facility] respiratory rate 2024-02-15 14:00:00 16 /min [facility] blood pressure systolic 2024-02-15 14:00:00 130 mm[Hg] [facility] blood pressure diastolic 2024-02-15 14:00:00 68 mm[Hg] [facility] Systolic blood pressure 2024-01-31 01:45:00 134 mm[Hg] General acute hospital Diastolic blood pressure 2024-01-31 01:45:00 73 mm[Hg] General acute hospital Respiratory rate 2024-01-31 01:45:00 18 /min [facility] Heart rate 2024-01-31 01:30:00 73 /min [facility]terial [facility] by Pulse oximetry 2024-01-31 01:30:00 99 /min [facility] acute hospital Body temperature 2024-01-30 20:51:00 36.39 Marina [facility] Body height 2024-01-30 20:51:00 175.3 cm [facility] Body weight 2024-01-30 20:51:00 73.936 kg [facility] BMI 2024-01-30 20:51:00 24.07 kg/m2 [facility] height 2023-11-14 14:00:00 69.5 [in_i] Comm on [facility] weight 2023-11-14 14:00:00 165 [lb_av] Comm on [facility] temperature 2023-11-14 14:00:00 97.8 [degF] Com mon [facility] bmi 2023-11-14 14:00:00 24.01 kg/m2 Comm on [facility] oximetry 2023-11-14 14:00:00 97 % Commo n [facility] respiratory rate 2023-11-14 14:00:00 16 /min [facility] blood pressure systolic 2023-11-14 14:00:00 126 mm[Hg] [facility] blood pressure diastolic 2023-11-14 14:00:00 68 mm[Hg] [facility] Systolic blood pressure 2023-09-08 17:00:00 144 mm[Hg] General acute hospital Diastolic blood pressure 2023-09-08 17:00:00 69 mm[Hg] General acute hospital Respiratory rate 2023-09-08 17:00:00 21 /min [facility] Heart rate 2023-09-08 16:00:00 88 /min [facility] Body temperature 2023-09-08 16:00:00 36.44 Marina [facility] Oxygen saturation in Arterial blood by Pulse oximetry 2023-09-08 16:00:00 99 /min [facility] acute hospital Body height 2023-09-08 12:44:00 175.3 cm [facility] Body weight 2023-09-08 12:44:00 74.98 kg [facility] BMI 2023-09-08 12:44:00 24.41 kg/m2 [facility] height 2023-08-15 13:20:00 69.5 [in_i] Comm on [facility] weight 2023-08-15 13:20:00 164 [lb_av] Comm on [facility] temperature 2023-08-15 13:20:00 97.6 [degF] Com mon [facility] bmi 2023-08-15 13:20:00 23.87 kg/m2 Comm on [facility] oximetry 2023-08-15 13:20:00 99 % Commo n [facility] respiratory rate 2023-08-15 13:20:00 16 /min Common [facility] blood pressure systolic 2023-08-15 13:20:00 128 mm[Hg] Common [facility] blood pressure diastolic 2023-08-15 13:20:00 70 mm[Hg] [facility] height 2023-07-17 15:00:00 69.5 [in_i] Comm on [facility] weight 2023-07-17 15:00:00 157.4 [lb_av] Co mmon [facility] temperature 2023-07-17 15:00:00 97.3 [degF] Com mon [facility] bmi 2023-07-17 15:00:00 22.91 kg/m2 Comm on [facility] oximetry 2023-07-17 15:00:00 99 % Commo n [facility] respiratory rate 2023-07-17 15:00:00 16 /min Common [facility] blood pressure systolic 2023-07-17 15:00:00 95 mm[Hg] [facility] blood pressure diastolic 2023-07-17 15:00:00 47 mm[Hg] [facility] height 2023-07-17 15:00:00 69.5 [in_i] Comm on [facility] weight 2023-07-17 15:00:00 157.4 [lb_av] Co mmon [facility] temperature 2023-07-17 15:00:00 97.3 [degF] Com mon [facility] bmi 2023-07-17 15:00:00 22.91 kg/m2 Comm on [facility] oximetry 2023-07-17 15:00:00 99 % Commo n [facility] respiratory rate 2023-07-17 15:00:00 16 /min [facility] blood pressure systolic 2023-07-17 15:00:00 95 mm[Hg] [facility] blood pressure diastolic 2023-07-17 15:00:00 47 mm[Hg] [facility] Systolic blood pressure 2023-05-04 15:59:00 122 mm[Hg] General acute hospital Diastolic blood pressure 2023-05-04 15:59:00 53 mm[Hg] General acute hospital Heart rate 2023-05-04 15:59:00 62 /min [facility] Body temperature 2023-05-04 15:59:00 37.06 Marina [facility] Respiratory rate 2023-05-04 15:59:00 18 /min [facility] Body height 2023-05-04 15:59:00 175.3 cm [facility] Body weight 2023-05-04 15:59:00 72.712 kg [facility] BMI 2023-05-04 15:59:00 23.67 kg/m2 [facility] Oxygen saturation in Arterial blood by Pulse oximetry 2023-05-04 15:59:00 100 /min [facility] acute hospital Systolic blood pressure 2023-04-02 17:00:00 145 mm[Hg] General acute hospital Diastolic blood pressure 2023-04-02 17:00:00 72 mm[Hg] General acute hospital Heart rate 2023-04-02 17:00:00 71 /min [facility] Respiratory rate 2023-04-02 17:00:00 14 /min [facility] Oxygen saturation in Arterial blood by Pulse oximetry 2023-04-02 17:00:00 97 /min [place] [facility] Body height 2023-04-02 15:17:13 175.3 cm [facility] Body weight 2023-04-02 13:00:00 76.4 kg [facility] BMI 2023-04-02 13:00:00 24.87 kg/m2 [facility] height 2023-02-13 16:00:00 69.5 [in_i] Comm on [facility] weight 2023-02-13 16:00:00 165.2 [lb_av] Co mmon [facility] temperature 2023-02-13 16:00:00 97.2 [degF] Com [facility] bmi 2023-02-13 16:00:00 24.04 kg/m2 Comm on [facility] oximetry 2023-02-13 16:00:00 94 % Commo n [facility] respiratory rate 2023-02-13 16:00:00 16 /min [facility] blood pressure systolic 2023-02-13 16:00:00 136 mm[Hg] [facility] blood pressure diastolic 2023-02-13 16:00:00 59 mm[Hg] [facility] height 2023-01-23 15:20:00 69.5 [in_i] Comm on [facility] weight 2023-01-23 15:20:00 166.8 [lb_av] Co mmon [facility] temperature 2023-01-23 15:20:00 97.2 [degF] Com [facility] bmi 2023-01-23 15:20:00 24.28 kg/m2 Comm on [facility] oximetry 2023-01-23 15:20:00 95 % Commo [facility] respiratory rate 2023-01-23 15:20:00 16 /min [facility] blood pressure systolic 2023-01-23 15:20:00 136 mm[Hg] [facility] blood pressure diastolic 2023-01-23 15:20:00 66 mm[Hg] [facility] Systolic blood pressure 2023-01-22 21:09:00 152 mm[Hg] General acute hospital Diastolic blood pressure 2023-01-22 21:09:00 75 mm[Hg] General acute hospital Heart rate 2023-01-22 21:06:00 70 /min Unive [facility] Body temperature 2023-01-22 21:06:00 36.28 Marina [facility] Respiratory rate 2023-01-22 21:06:00 16 /min [facility] Body weight 2023-01-22 21:06:00 76.431 kg [facility] BMI 2023-01-22 21:06:00 24.88 kg/m2 [facility] Oxygen saturation in Arterial blood by Pulse oximetry 2023-01-22 21:06:00 98 /min [facility] acute hospital Systolic blood pressure 2023-01-17 16:38:00 134 mm[Hg] General acute hospital Diastolic blood pressure 2023-01-17 16:38:00 68 mm[Hg] General acute hospital Heart rate 2023-01-17 16:38:00 77 /min [facility] Body temperature 2023-01-17 16:38:00 36.22 Marina [facility] Respiratory rate 2023-01-17 16:38:00 18 /min [facility] Oxygen saturation in Arterial blood by Pulse oximetry 2023-01-17 16:38:00 98 /min [facility] acute hospital Body weight 2023-01-17 07:58:00 72.984 kg [facility] BMI 2023-01-17 07:58:00 23.76 kg/m2 [facility] Body height 2023-01-15 21:31:00 175.3 cm [facility] Systolic blood pressure 2023-01-11 15:50:00 137 mm[Hg] General acute hospital Diastolic blood pressure 2023-01-11 15:50:00 70 mm[Hg] General acute hospital Heart rate 2023-01-11 15:50:00 72 /min [facility] 2023-01-11 15:50:00 17 /min [facility] Body height 2023-01-11 15:50:00 175.3 cm [facility] Body weight 2023-01-11 15:50:00 73.301 kg [facility] BMI 2023-01-11 15:50:00 23.86 kg/m2 [facility] Oxygen saturation in Arterial blood by Pulse oximetry 2023-01-11 15:50:00 95 /min [facility] acute hospital oximetry 2022-11-13 08:00:00 96 % Commo n [facility] respiratory rate 2022-11-13 08:00:00 16 /min [facility] blood pressure systolic 2022-11-13 08:00:00 122 mm[Hg] Common [facility] blood pressure diastolic 2022-11-13 08:00:00 64 mm[Hg] Common [facility] height 2022-11-13 08:00:00 69.5 [in_i] Comm on [facility] weight 2022-11-13 08:00:00 160 [lb_av] Comm on [facility] temperature 2022-11-13 08:00:00 97.1 [degF] Com mon [facility] bmi 2022-11-13 08:00:00 23.29 kg/m2 Comm on [facility] height 2022-09-01 10:20:00 69.5 [in_i] Comm on [facility] weight 2022-09-01 10:20:00 170.2 [lb_av] Co mmon [facility] temperature 2022-09-01 10:20:00 98.7 [degF] Com mon [facility] bmi 2022-09-01 10:20:00 24.77 kg/m2 Comm on [facility] oximetry 2022-09-01 10:20:00 95 % Commo n [facility] respiratory rate 2022-09-01 10:20:00 16 /min Common [facility] blood pressure systolic 2022-09-01 10:20:00 102 mm[Hg] [facility] blood pressure diastolic 2022-09-01 10:20:00 58 mm[Hg] [facility] height 2022-08-01 09:00:00 69.5 [in_i] Comm on [facility] weight 2022-08-01 09:00:00 179 [lb_av] Comm on [facility] temperature 2022-08-01 09:00:00 97.5 [degF] Com [facility] bmi 2022-08-01 09:00:00 26.05 kg/m2 Comm on [facility] oximetry 2022-08-01 09:00:00 95 % Commo n [facility] respiratory rate 2022-08-01 09:00:00 16 /min [facility] blood pressure systolic 2022-08-01 09:00:00 132 mm[Hg] [facility] blood pressure diastolic 2022-08-01 09:00:00 76 mm[Hg] [facility] Systolic blood pressure 2022-07-11 20:48:00 165 mm[Hg] General acute hospital Diastolic blood pressure 2022-07-11 20:48:00 91 mm[Hg] General acute hospital Heart rate 2022-07-11 20:48:00 114 /min [facility] Respiratory rate 2022-07-11 20:48:00 25 /min [facility] Oxygen saturation in Arterial blood by Pulse oximetry 2022-07-11 20:48:00 97 /min [facility] acute hospital Body temperature 2022-07-11 19:05:00 36.61 Marina [facility] Body height 2022-07-11 19:04:00 175.3 cm [facility] Body weight 2022-07-11 19:04:00 74.844 kg [facility] BMI 2022-07-11 19:04:00 24.37 kg/m2 [facility] height 2022-06-14 08:00:00 69.5 [in_i] Comm on [facility] weight 2022-06-14 08:00:00 165 [lb_av] Comm on [facility] temperature 2022-06-14 08:00:00 97 [degF] Comm on [facility] bmi 2022-06-14 08:00:00 24.01 kg/m2 Comm on [facility] oximetry 2022-06-14 08:00:00 100 % Commo n [facility] respiratory rate 2022-06-14 08:00:00 16 /min [facility] blood pressure systolic 2022-06-14 08:00:00 122 mm[Hg] [facility] blood pressure diastolic 2022-06-14 08:00:00 70 mm[Hg] [facility] height 2022-06-14 08:00:00 69.5 [in_i] Comm on [facility] weight 2022-06-14 08:00:00 165 [lb_av] Comm on [facility] temperature 2022-06-14 08:00:00 97 [degF] Comm on [facility] bmi 2022-06-14 08:00:00 24.01 kg/m2 Comm on [facility] oximetry 2022-06-14 08:00:00 100 % Commo n [facility] respiratory rate 2022-06-14 08:00:00 16 /min [facility] blood pressure systolic 2022-06-14 08:00:00 122 mm[Hg] [facility] blood pressure diastolic 2022-06-14 08:00:00 70 mm[Hg] [facility] Systolic blood pressure 2022-06-12 21:02:00 127 mm[Hg] General acute hospital Diastolic blood pressure 2022-06-12 21:02:00 63 mm[Hg] General acute hospital Heart rate 2022-06-12 21:02:00 69 /min Unive [facility] Body temperature 2022-06-12 21:02:00 36.61 Marina [facility] Body height 2022-06-12 21:02:00 175.3 cm [facility] Body weight 2022-06-12 21:02:00 75.978 kg [facility] BMI 2022-06-12 21:02:00 24.74 kg/m2 [facility] Oxygen saturation in Arterial blood by Pulse oximetry 2022-06-12 21:02:00 97 /min [facility] acute hospital Systolic blood pressure 2022-05-23 17:44:00 110 mm[Hg] General acute hospital Diastolic blood pressure 2022-05-23 17:44:00 63 mm[Hg] General acute hospital Heart rate 2022-05-23 17:44:00 85 /min Un[facility] Body temperature 2022-05-23 17:44:00 37.11 Marina [facility] Respiratory rate 2022-05-23 17:44:00 18 /min [facility] Oxygen saturation in Arterial blood by Pulse oximetry 2022-05-23 17:44:00 96 /min [facility] acute hospital Body weight 2022-05-23 09:54:00 77.973 kg [facility] BMI 2022-05-23 09:54:00 25.39 kg/m2 [facility] Body height 2022-05-19 23:19:00 175.3 cm [facility] Systolic blood pressure 2022-05-18 16:48:00 145 mm[Hg] General acute hospital Diastolic blood pressure 2022-05-18 16:48:00 90 mm[Hg] General acute hospital Heart rate 2022-05-18 16:48:00 80 /min Un[facility] Respiratory rate 2022-05-18 16:44:00 22 /min [facility] Body height 2022-05-18 16:44:00 175.3 cm [facility] Body weight 2022-05-18 16:44:00 78.472 kg [facility] BMI 2022-05-18 16:44:00 25.55 kg/m2 [facility] Oxygen saturation in Arterial blood by Pulse oximetry 2022-05-18 16:44:00 99 /min [facility] acute hospital Systolic blood pressure 2022-05-09 15:43:00 156 mm[Hg] General acute hospital Diastolic blood pressure 2022-05-09 15:43:00 95 mm[Hg] General acute hospital Heart rate 2022-05-09 15:43:00 80 /min [facility] Oxygen saturation in Arterial blood by Pulse oximetry 2022-05-09 15:43:00 100 /min General acute hospital Respiratory rate 2022-05-09 15:40:00 19 /min [facility] Body height 2022-05-09 15:40:00 175.3 cm [facility] Body weight 2022-05-09 15:40:00 83.008 kg [facility] BMI 2022-05-09 15:40:00 27.02 kg/m2 [facility] height 2022-05-03 08:00:00 69.5 [in_i] Comm on [facility] weight 2022-05-03 08:00:00 175.8 [lb_av] Co mmon [facility] temperature 2022-05-03 08:00:00 97.0 [degF] Com mon [facility] bmi 2022-05-03 08:00:00 25.59 kg/m2 Comm on [facility] oximetry 2022-05-03 08:00:00 95 % Commo n [facility] respiratory rate 2022-05-03 08:00:00 17 /min Common [facility] blood pressure systolic 2022-05-03 08:00:00 116 mm[Hg] Common [facility] blood pressure diastolic 2022-05-03 08:00:00 66 mm[Hg] [facility] height 2022-03-30 14:20:00 69.5 [in_i] Comm on [facility] weight 2022-03-30 14:20:00 177.4 [lb_av] Co mmon [facility] temperature 2022-03-30 14:20:00 97.1 [degF] Com [facility] bmi 2022-03-30 14:20:00 25.82 kg/m2 Comm on [facility] oximetry 2022-03-30 14:20:00 96 % Commo n [facility] respiratory rate 2022-03-30 14:20:00 17 /min [facility] blood pressure systolic 2022-03-30 14:20:00 138 mm[Hg] Common [facility] blood pressure diastolic 2022-03-30 14:20:00 71 mm[Hg] Common [facility] height 2021-11-16 08:00:00 69.5 [in_i] Comm on [facility] weight 2021-11-16 08:00:00 180 [lb_av] Comm on [facility] temperature 2021-11-16 08:00:00 98.4 [degF] Com [facility] bmi 2021-11-16 08:00:00 26.2 kg/m2 Commo n [facility] oximetry 2021-11-16 08:00:00 100 % Commo n [facility] respiratory rate 2021-11-16 08:00:00 16 /min Common [facility] height 2021-08-17 11:20:00 69 [in_i] Commo n [facility] weight 2021-08-17 11:20:00 183 [lb_av] Comm on [facility] temperature 2021-08-17 11:20:00 98.3 [degF] Com mon [facility] bmi 2021-08-17 11:20:00 27.02 kg/m2 Comm on [facility] oximetry 2021-08-17 11:20:00 98 % Commo n [facility] respiratory rate 2021-08-17 11:20:00 16 /min [facility] blood pressure systolic 2021-08-17 11:20:00 122 mm[Hg] Common [facility] blood pressure diastolic 2021-08-17 11:20:00 74 mm[Hg] Common [facility] height 2021-07-18 13:00:00 69 [in_i] Commo n [facility] weight 2021-07-18 13:00:00 181 [lb_av] Comm on [facility] temperature 2021-07-18 13:00:00 97.4 [degF] Com mon [facility] bmi 2021-07-18 13:00:00 26.73 kg/m2 Comm on [facility] oximetry 2021-07-18 13:00:00 100 % Commo n [facility] respiratory rate 2021-07-18 13:00:00 16 /min [facility] blood pressure systolic 2021-07-18 13:00:00 123 mm[Hg] [facility] blood pressure diastolic 2021-07-18 13:00:00 73 mm[Hg] Common [facility] height 2021-05-10 09:40:00 69 [in_i] Commo n [facility] weight 2021-05-10 09:40:00 187.4 [lb_av] Co mmon [facility] temperature 2021-05-10 09:40:00 97.2 [degF] Com [facility] bmi 2021-05-10 09:40:00 27.67 kg/m2 Comm on [facility] oximetry 2021-05-10 09:40:00 100 % Commo n [facility] respiratory rate 2021-05-10 09:40:00 16 /min Common [facility] blood pressure systolic 2021-05-10 09:40:00 128 mm[Hg] Common [facility] blood pressure diastolic 2021-05-10 09:40:00 70 mm[Hg] [facility] height 2021-05-10 09:20:00 69 [in_i] Commo n [facility] weight 2021-05-10 09:20:00 187.4 [lb_av] Co on [facility] temperature 2021-05-10 09:20:00 97.2 [degF] Com [facility] bmi 2021-05-10 09:20:00 27.67 kg/m2 Comm on [facility] oximetry 2021-05-10 09:20:00 100 % Commo n [facility] blood pressure systolic 2021-05-10 09:20:00 128 mm[Hg] Common [facility] blood pressure diastolic 2021-05-10 09:20:00 70 mm[Hg] [facility] Systolic blood pressure 2021-03-01 15:08:00 152 mm[Hg] General acute hospital Diastolic blood pressure 2021-03-01 15:08:00 90 mm[Hg] General acute hospital Heart rate 2021-03-01 15:00:00 82 /min [facility] Body height 2021-03-01 15:00:00 175.3 cm Univ [facility] Body weight 2021-03-01 15:00:00 86.183 kg [facility] BMI 2021-03-01 15:00:00 28.06 kg/m2 [facility] Oxygen saturation in Arterial blood by Pulse oximetry 2021-03-01 15:00:00 99 /min General acute hospital Systolic blood pressure 2021-03-01 15:08:00 152 mm[Hg] [facility] Diastolic blood pressure 2021-03-01 15:08:00 90 mm[Hg] General acute hospital Heart rate 2021-03-01 15:00:00 82 /min [facility] Body height 2021-03-01 15:00:00 175.3 cm [facility] Body weight 2021-03-01 15:00:00 86.183 kg [facility] BMI 2021-03-01 15:00:00 28.06 kg/m2 [facility] Oxygen saturation in Arterial blood by Pulse oximetry 2021-03-01 15:00:00 99 /min General acute hospital Systolic blood pressure 2021-03-01 15:08:00 152 mm[Hg] General acute hospital Diastolic blood pressure 2021-03-01 15:08:00 90 mm[Hg] General acute hospital Heart rate 2021-03-01 15:00:00 82 /min [facility] Body height 2021-03-01 15:00:00 175.3 cm [facility] Body weight 2021-03-01 15:00:00 86.183 kg [facility] BMI 2021-03-01 15:00:00 28.06 kg/m2 [facility] Oxygen saturation in Arterial blood by Pulse oximetry 2021-03-01 15:00:00 99 /min General acute hospital Systolic blood pressure 2024-05-16 13:14:00 140 mm[Hg] [facility] [place] Diastolic blood pressure 2024-05-16 13:14:00 62 mm[Hg] General acute hospital Heart rate 2024-05-16 13:14:00 87 /min [facility] Body temperature 2024-05-16 13:14:00 37.17 Marina [facility] Respiratory rate 2024-05-16 13:14:00 18 /min [facility] Oxygen saturation in Arterial blood by Pulse oximetry 2024-05-16 13:14:00 92 /min [facility] Body height 2024-05-15 15:00:00 175.3 cm [facility] Body weight 2024-05-15 15:00:00 72.576 kg [facility] BMI 2024-05-15 15:00:00 23.63 kg/m2 [facility] Procedures Procedure Date / Time Performed Performing Clinician Source POCT GLUCOSE (AUTOMATED) 2024-06-02 13:59:00 Cristo Christiansen [facility] POCT GLUCOSE (AUTOMATED) 2024-06-02 11:03:00 Cristo Christiansen [facility] PHOSPHORUS 2024-06-02 10:56:00 [facility] 2024-06-02 10:56:00 [facility]OL[facility] PAN[facility] (NA, K , CL, CO2, GLUCOSE, BUN, CREATININE, CA) 2024-06-02 10:56:00 [facility] WITH [facility]FF 2024-06-02 10:56:00 [facility]SE (AUTOMATED) 2024-06-02 06:38:00 Cristo Christiansen [facility] POCT GLUCOSE (AUTOMATED) 2024-06-02 02:37:00 Drebernadette [facility] POCT GLUCOSE (AUTOMATED) 2024-06-01 22:23:00 Drevesixto [facility] POCT GLUCOSE (AUTOMATED) 2024-06-01 18:33:00 Drevesixto [facility] POCT GLUCOSE (AUTOMATED) 2024-06-01 14:56:00 Robert [facility] CBC WITH DIFF 2024-06-01 11:53:00 [facility] 2024-06-01 10:39:00 [facility] 2024-06-01 10:39:00 [facility] BASIC MET[facility]OLIC PANEL (NA, K , CL, CO2, GLUCOSE, BUN, CREATININE, CA) 2024-06-01 10:39:00 [facility] PO[facility]SE (AUTOMATED) 2024-06-01 10:24:00 Cristo Christiansen [facility] POCT GLUCOSE (AUTOMATED) 2024-06-01 06:31:00 Cristo Christiansen [facility] POCT GLUCOSE (AUTOMATED) 2024-06-01 01:15:00 Cristo Christiansen [facility] POCT GLUCOSE (AUTOMATED) 2024-05-31 21:43:00 [facility] POCT GLUCOSE (AUTOMATED) 2024-05-31 17:43:00 [facility] MRSA / MSSA SCREEN BY PCRPHUC 2024-05 17:24:00 Wes Weiner [facility] PHOSPHORUS 2024-05-31 11:11:[address] [facility] MAGNESIUM 2024-05-31 11:11:[address] [facility] CBC WITH DIFF 2024-05-31 09:34:[address] [facility] POCT GLUCOSE (AUTOMATED) 2024-05-31 09:28:00 Prasanth Hernandez [facility] POCT GLUCOSE (AUTOMATED) 2024-05-31 07:56:00 Prasanth Hernandez [facility] XR ABDOMEN 1 VW 2024-05-31 02:22:00 Juan Enamorado [facility] PHOSPHORUS 2024-05-31 01:57:00 Len Mcknight Karla [facility] MAGNESIUM 2024-05-31 01:57:00 Len Mcknight Karla [facility] BASIC METABOLIC PANEL (NA, K , CL, CO2, GLUCOSE, BUN, CREATININE, CA) 2024-05-31 01:57:00 Len Mcknight Karla [facility] CBC WITH DIFF 2024-05-31 01:57:00 Len Mcknight [facility] CT ABDOMEN PELVIS WO CONTRAST 2024-05-31 00:53:00 Crow Gaona [facility] POCT GLUCOSE (AUTOMATED) 2024-05-30 23:53:00 Prasanth Hernandez [facility] POCT GLUCOSE(AGE >30DAYS) 2024-05-30 18:00:00 Jovan DmOdell [facility] PHOSPHORUS 2024-05-30 17:59:00 [facility] MAGNESIUM 2024-05-30 17:59:00 Marlene [facility] BASIC METABOLIC PANEL (NA, K , CL, CO2, GLUCOSE, BUN, CREATININE, CA) 2024-05-30 17:59:00 Marlene [facility] CBC WITHOUT DIFF 2024-05-30 17:59:00 Marlene [facility] POCT GLUCOSE (AUTOMATED) 2024-05-30 17:57:00 [facility] POCT GLUCOSE (AUTOMATED) 2024-05-30 13:49:00 Prasanth Hernandez [facility] PHOSPHORUS 2024-05-30 09:55:00 Solo [facility] MAGNESIUM 2024-05-30 09:55:00 Solo [facility] TROPONIN I 2024-05-30 09:55:00 Solo [facility] BASIC METABOLIC PANEL (NA, K , CL, CO2, GLUCOSE, BUN, CREATININE, CA) 2024-05-30 09:55:00 Solo [facility] CBC WITH DIFF 2024-05-30 09:55:00 Solo [facility] PROTHROMBIN TIME / INR 2024-05-30 09:55:00 Solo [facility] ACTIVATED PARTIAL THRMPLAS MATILDE 7 09:55:00 Solo [facility] FIBRINOGEN 2024-05-30 09:55:00 Solo [facility] LACTIC ACID WHOLE BLOOD 2024-05-30 07:19:00 Moira Cruz [facility] PREPARE PACKED RBC 2024-05-30 07:13:01 Michael Herrera [facility] CT ANGIOGRAM ABDOMEN/PELVIS 2024-05-30 04:55:03 Singer [facility] HB INDIRECT ANTIGLOBULIN TEST 2024-05-30 02:22:00 Singer [facility] TROPONIN I 2024-05-30 01:39:00 Singer [facility] COMP. METABOLIC PANEL ([id number]) 2024-05-30 01:39:00 Singer [facility] CBC WITH DIFF 2024-05-30 01:39:00 Singer [facility] POCT GLUCOSE (AUTOMATED) 2024-05-19 19:52:00 Brigette Barrios [facility] POCT GLUCOSE (AUTOMATED) 2024-05-19 14:10:00 Brigette Barrios [facility] POCT GLUCOSE (AUTOMATED) 2024-05-19 14:10:00 Brigette Barrios [facility] PHOSPHORUS 2024-05-19 10:38:00 Dulce Maria Mccann [facility] MAGNESIUM 2024-05-19 10:38:00 Ramy [facility] BASIC METABOLIC PANEL (NA, K , CL, CO2, GLUCOSE, BUN, CREATININE, CA) 2024-05-19 10:38:00 Dulce Maria Mccann [facility] CBC WITH DIFF 2024-05-19 10:38:00 Dulce Maria Mccann [facility] PHOSPHORUS 2024-05-19 10:38:00 Dulce Maria Mccann [facility] MAGNESIUM 2024-05-19 10:38:[address] [facility] BASIC METABOLIC PANEL (NA, K , CL, CO2, GLUCOSE, BUN, CREATININE, CA) 2024-05-19 10:38:00 Froy Mccanncacarlos [facility] CBC WITH DIFF 2024-05-19 10:38:[address] [facility] POCT GLUCOSE (AUTOMATED) 2024-05-19 03:29:00 Brigette Barrios [facility] POCT GLUCOSE (AUTOMATED) 2024-05-19 03:29:00 Brigette Barrios [facility] CBC WITHOUT DIFF 2024-05-19 02:46:00 Mark Uriostegui [facility] CBC WITHOUT DIFF 2024-05-19 02:46:00 Mark Uriostegui [facility] POCT GLUCOSE (AUTOMATED) 2024-05-18 22:06:00 Brigette Barrios [facility] POCT GLUCOSE (AUTOMATED) 2024-05-18 22:06:00 Brigette Barrios [facility] POCT GLUCOSE (AUTOMATED) 2024-05-18 17:52:00 Brigette Barrios [facility] POCT GLUCOSE (AUTOMATED) 2024-05-18 17:52:00 Brigette Barrios [facility] POCT GLUCOSE (AUTOMATED) 2024-05-18 14:04:00 Brigette Barrios [facility] POCT GLUCOSE (AUTOMATED) 2024-05-18 14:04:00 Brigette Barrios [facility] MAGNESIUM 2024-05-18 12:42:00 [facility]IC PANEL (NA, K , CL, CO2, GLUCOSE, BUN, CREATININE, CA) 2024-05-18 12:42:00 [facility]FF 2024-05-18 12:42:00 [facility] 2024-05-18 12:42:00 Ramy [facility] BASIC METABOLIC PANEL (NA, K , CL, CO2, GLUCOSE, BUN, CREATININE, CA) 2024-05-18 12:42:00 Dulce Maria Mccann [facility] CBC WITH DIFF 2024-05-18 12:42:00 Ramy [facility] CBC WITH DIFF 2024-05-18 02:41:00 Dulce Maria Mccann [facility] CBC WITH DIFF 2024-05-18 02:41:00 Ramy Vamilo [facility] POCT GLUCOSE (AUTOMATED) 2024-05-18 02:18:00 Brigette Barrios [facility] POCT GLUCOSE (AUTOMATED) 2024-05-18 02:18:00 Brigette Barrios [facility] POCT GLUCOSE (AUTOMATED) 2024-05-17 22:12:00 Brigette Barrios [facility] POCT GLUCOSE (AUTOMATED) 2024-05-17 22:12:00 Brigette Barrios [facility] HB ABO GROUPING 2024-05-17 22:06:00 Oscar Cox [facility] HB ABO GROUPING 2024-05-17 22:06:00 Oscar Cox [facility] POCT GLUCOSE (AUTOMATED) 2024-05-17 20:02:00 Brigette Barrios [facility] POCT GLUCOSE (AUTOMATED) 2024-05-17 20:02:00 Brigette Barrios [facility] EGD (ENDO) 2024-05-17 20:01:41 Brigette Barrios [facility] EGD (ENDO) 2024-05-17 20:01:41 Brigette Barrios [facility] ESOPHAGOGASTRODUODENOSCOPY 2024-05-17 19:12:00 Katelynn [facility] ESOPHAGOGASTRODUODENOSCOPY 2024-05-17 19:12:00 Luis Pace [facility] POCT GLUCOSE (AUTOMATED) 2024-05-17 17:33:00 Brigette Barrios [facility] POCT GLUCOSE (AUTOMATED) 2024-05-17 17:33:00 Brigette Barrios [facility] POCT GLUCOSE (AUTOMATED) 2024-05-17 14:26:00 Brigette Barrios [facility] POCT GLUCOSE (AUTOMATED) 2024-05-17 14:26:00 Brigette Barrios [facility] CBC WITHOUT DIFF 2024-05-17 14:23:00 Mark Uriostegui [facility] CBC WITHOUT DIFF 2024-05-17 14:23:00 [facility] PREPARE PACKED RBC 2024-05-17 10:10:34 [facility] PREPARE PACKED RBC 2024-05-17 10:10:34 [facility] MAGNESIUM 2024-05-17 08:53:00 Ramy [facility] BASIC METABOLIC PANEL (NA, K , CL, CO2, GLUCOSE, BUN, CREATININE, CA) 2024-05-17 08:53:00 Ramy [facility] CBC WITH DIFF 2024-05-17 08:53:00 Ramy [facility] MAGNESIUM 2024-05-17 08:53:00 Ramy [facility] BASIC METABOLIC PANEL (NA, K , CL, CO2, GLUCOSE, BUN, CREATININE, CA) 2024-05-17 08:53:00 Ramy [facility] CBC WITH DIFF 2024-05-17 08:53:00 Ramy [facility] XR CHEST 1 VW 2024-05-17 08:01:55 Ramy [facility] XR CHEST 1 VW 2024-05-17 08:01:55 Ramy [facility] POCT GLUCOSE (AUTOMATED) 2024-05-17 03:09:00 Geraldo Mendoza [facility] POCT GLUCOSE (AUTOMATED) 2024-05-17 03:09:00 Geraldo Mendoza [facility] POCT GLUCOSE (AUTOMATED) 2024-05-17 01:04:00 Geraldo Mendoza [facility] POCT GLUCOSE (AUTOMATED) 2024-05-17 01:04:00 Geraldo Mendoza [facility] POCT GLUCOSE (AUTOMATED) 2024-05-16 18:11:00 Geraldo Mendoza [facility] POCT GLUCOSE (AUTOMATED) 2024-05-16 18:11:00 Geraldo Mendoza [facility] XR CHEST 1 VW 2024-05-16 18:03:00 Ramy [facility] XR CHEST 1 VW 2024-05-16 18:03:00 Dulce Maria Mccann [facility] POCT GLUCOSE (AUTOMATED) 2024-05-16 15:07:00 Geraldo Mendoza [facility] POCT GLUCOSE (AUTOMATED) 2024-05-16 15:07:00 Geraldo Mendoza [facility] POCT GLUCOSE (AUTOMATED) 2024-05-16 15:07:00 Geraldo Mendoza [facility] PHOSPHORUS 2024-05-16 10:50:00 [facility] 2024-05-16 10:50:00 Ras [facility] BASIC METABOLIC PANEL (NA, K , CL, CO2, GLUCOSE, BUN, CREATININE, CA) 2024-05-16 10:50:00 [facility]FF 2024-05-16 10:50[facility]-05-16 10:50:00 [facility] 2024-05-16 10:50:00 Ras [facility] BASIC METABOLIC PANEL (NA, K , CL, CO2, GLUCOSE, BUN, CREATININE, CA) 2024-05-16 10:50:00 Ras [facility] CBC WITH DIFF 2024-05-16 10:50:00 [facility] 2024-05-16 10:50:00 [facility] 2024-05-16 10:50:00 Ras Victoria [facility] BASIC METABOLIC PANEL (NA, K , CL, CO2, GLUCOSE, BUN, CREATININE, CA) 2024-05-16 10:50:00 Ras [facility] CBC WITH DIFF 2024-05-16 10:50:00 Ras [facility] POCT GLUCOSE (AUTOMATED) 2024-05-16 02:59:00 Geraldo Mendoza [facility] POCT GLUCOSE (AUTOMATED) 2024-05-16 02:59:00 Geraldo Mendoza [facility] POCT GLUCOSE (AUTOMATED) 2024-05-16 02:59:00 Geraldo Mendoza [facility] CBC WITHOUT DIFF 2024-05-15 23:36:00 Victoria Mcginnis [facility] CBC WITHOUT DIFF 2024-05-15 23:36:00 Victoria Mcginnis [facility] CBC WITHOUT DIFF 2024-05-15 23:36:00 Victoria Mcginnisrigoberto [facility] POCT GLUCOSE (AUTOMATED) 2024-05-15 21:39:00 Jah Mtz [facility] POCT GLUCOSE (AUTOMATED) 2024-05-15 21:39:00 Jah Mtz [facility] POCT GLUCOSE (AUTOMATED) 2024-05-15 21:39:00 Jah Mtz [facility] POCT GLUCOSE (AUTOMATED) 2024-05-15 17:42:00 Jah Mtz [facility] POCT GLUCOSE (AUTOMATED) 2024-05-15 17:42:00 Jah Mtz [facility] POCT GLUCOSE (AUTOMATED) 2024-05-15 17:42:00 Jah Mtz [facility] POCT GLUCOSE (AUTOMATED) 2024-05-15 13:41:00 Julio Cesar Partida [facility] POCT GLUCOSE (AUTOMATED) 2024-05-15 13:41:00 Julio Cesar Partida [facility] POCT GLUCOSE (AUTOMATED) 2024-05-15 13:41:00 Julio Cesar Partida [facility] CBC WITH DIFF 2024-05-15 11:40:00 Victoria Mcginnis [facility] MAGNESIUM 2024-05-15 11:40:00 Victoria Mcginnis [facility] BASIC METABOLIC PANEL (NA, K , CL, CO2, GLUCOSE, BUN, CREATININE, CA) 2024-05-15 11:40:00 Victoria Mcginnis [facility] INTACT PTH CALCIUM GROUP 2024-05-15 11:40:00 Victoria Mcginnis-rigoberto [facility] MAGNESIUM 2024-05-15 11:40:00 [facility] BASIC METABOLIC PANEL (NA, K , CL, CO2, GLUCOSE, BUN, CREATININE, CA) 2024-05-15 11:40:00 Victoria Mcginnisrigoberto [facility] INTACT PTH CALCIUM GROUP 2024-05-15 11:40:00 Victoria Mcginnisrigoberto [facility] CBC WITH DIFF 2024-05-15 11:40:00 [facility] 2024-05-15 11:40:00 [facility] BASIC METABOLIC PANEL (NA, K , CL, CO2, GLUCOSE, BUN, CREATININE, CA) 2024-05-15 11:40:00 [facility] INTACT PTH CALCIUM GROUP 2024-05-15 11:40:00 Sadi Mcginnisa [facility] CBC WITH DIFF 2024-05-15 11:40:00 Victoria [facility] POCT GLUCOSE (AUTOMATED) 2024-05-15 02:42:00 Julio Cesar Partida [facility] POCT GLUCOSE (AUTOMATED) 2024-05-15 02:42:00 Julio Cesar Partida [facility] POCT GLUCOSE (AUTOMATED) 2024-05-15 02:42:00 Julio Cesar Partida [facility] CBC WITH DIFF 2024-05-15 00:21:00 Prasanth Dumont [facility] BASIC METABOLIC PANEL (NA, K , CL, CO2, GLUCOSE, BUN, CREATININE, CA) 2024-05-15 00:21:00 [facility]OL[facility] PANEL (NA, K , CL, CO2, GLUCOSE, BUN, CREATININE, CA) 2024-05-15 00:21:00 [facility] DIFF 2024-05-15 00:21:00 Prasanth Dumont [facility] BASIC METABOLIC PANEL (NA, K , CL, CO2, GLUCOSE, BUN, CREATININE, CA) 2024-05-15 00:21:00 Shadijuan manuelAdriel Marielena [facility] CBC WITH DIFF 2024-05-15 00:21:00 Tim [facility] POCT GLUCOSE (AUTOMATED) 2024-05-14 23:43:00 Julio Cesar Partida [facility] POCT GLUCOSE (AUTOMATED) 2024-05-14 23:43:00 Julio Cesar Partida [facility] POCT GLUCOSE (AUTOMATED) 2024-05-14 23:43:00 Julio Cesar Partida [facility] PREPARE PACKED RBC 2024-05-14 17:34:11 [facility] 2024-05-14 17:34:11 [facility] 2024-05-14 17:34:11 [facility] PO[facility] GLUCOSE (AUTOMATED) 2024-05-14 15:33:00 Julio Cesar Partida [facility] POCT GLUCOSE (AUTOMATED) 2024-05-14 15:33:00 Julio Cesar Partida [facility] POCT GLUCOSE (AUTOMATED) 2024-05-14 15:33:00 Julio Cesar Partida [facility] CBC WITH DIFF 2024-05-14 14:06:00 Dumont, [facility] CBC WITH DIFF 2024-05-14 14:06:00 Dumont, [facility] CBC WITH DIFF 2024-05-14 14:06:00 Tim [facility] TRANSFUSE PACKED RBC 2024-05-14 11:15:00 Tim [facility] TRANSFUSE PACKED RBC 2024-05-14 11:15:00 Tim [facility] TRANSFUSE PACKED RBC 2024-05-14 11:15:00 Tim [facility] PREPARE PACKED RBC 2024-05-14 11:04:28 Tim [facility] PREPARE PACKED RBC 2024-05-14 11:04:28 Tim [facility] PREPARE PACKED RBC 2024-05-14 11:04:28 Dumont, [facility] TRANSFUSE PACKED RBC 2024-05-14 09:04:00 Dumont, [facility] TRANSFUSE PACKED RBC 2024-05-14 09:04:00 Dumont, [facility] TRANSFUSE PACKED RBC 2024-05-14 09:04:00 Dumont, [facility] HB ECG ROUTINE & RHYTHM STRIP 2024-05-14 07:15:12 Aubree Woodward [facility] HB ECG ROUTINE & RHYTHM STRIP 2024-05-14 07:15:12 Aubree Woodward [facility] HB ECG ROUTINE & RHYTHM STRIP 2024-05-14 07:15:12 Aubree Woodward [facility] MAGNESIUM 2024-05-14 06:53:00 Dumont, [facility] FERRITIN SERUM 2024-05-14 06:53:00 Dumont, [facility] IRON PANEL 2024-05-14 06:53:00 Dumont, [facility] VITAMIN B12, LEVEL 2024-05-14 06:53:00 Dumont, [facility] FOLATE 2024-05-14 06:53:00 Dumont, [facility] LACTATE DEHYDROGENASE 2024-05-14 06:53:00 Dumont, [facility] HAPTOGLOBIN, SERUM 2024-05-14 06:53:00 Dumont, [facility] TROPONIN I 2024-05-14 06:53:00 Dumont, [facility] LACTATE DEHYDROGENASE 2024-05-14 06:53:00 Dumont, [facility] MAGNESIUM 2024-05-14 06:53:00 Dumont, [facility] FERRITIN SERUM 2024-05-14 06:53:00 Dumont, [facility] VITAMIN B12, LEVEL 2024-05-14 06:53:00 Dumont, [facility] FOLATE 2024-05-14 06:53:00 Dumont, [facility] HAPTOGLOBIN, SERUM 2024-05-14 06:53:00 Dumont, [facility] TROPONIN I 2024-05-14 06:53:00 Dumont, [facility] IRON PANEL 2024-05-14 06:53:00 Dumont, [facility] LACTATE DEHYDROGENASE 2024-05-14 06:53:00 Dumont, [facility] MAGNESIUM 2024-05-14 06:53:00 Dumont, [facility] FERRITIN SERUM 2024-05-14 06:53:00 Dumont, [facility] VITAMIN B12, LEVEL 2024-05-14 06:53:00 Dumont, [facility] FOLATE 2024-05-14 06:53:00 Dumont, [facility] HAPTOGLOBIN, SERUM 2024-05-14 06:53:00 Dumont, [facility] TROPONIN I 2024-05-14 06:53:00 Dumont, [facility] IRON PANEL 2024-05-14 06:53:00 Dumont, [facility] MRSA / MSSA SCREEN BY PCR, [facility] 2024-04 06:50:00 Dumont, [facility] HB ABO GROUPING 2024-05-14 06:50:00 Dumont, [facility] CBC WITH DIFF 2024-05-14 06:50:00 Dumont, [facility] PROTHROMBIN TIME / INR 2024-05-14 06:50:00 Dumont, [facility] FIBRINOGEN 2024-05-14 06:50:00 Dumont, [facility] RETICULOCYTES AUTOMATED 2024-05-14 06:50:00 Dumont, [facility] CBC WITH DIFF 2024-05-14 06:50:00 Dumont, [facility] PROTHROMBIN TIME / INR 2024-05-14 06:50:00 Dumont, [facility] FIBRINOGEN 2024-05-14 06:50:00 Dumont, [facility] HB ABO GROUPING 2024-05-14 06:50:00 Dumont, [facility] RETICULOCYTES AUTOMATED 2024-05-14 06:50:00 Dumont, [facility] MRSA / MSSA SCREEN BY PCR, [facility] 2024-04 06:50:00 Dumont, [facility] CBC WITH DIFF 2024-05-14 06:50:00 Dumont, [facility] PROTHROMBIN TIME / INR 2024-05-14 06:50:00 Dumont, [facility] FIBRINOGEN 2024-05-14 06:50:00 Dumont, [facility] HB ABO GROUPING 2024-05-14 06:50:00 Dumont, [facility] RETICULOCYTES AUTOMATED 2024-05-14 06:50:00 Dumont, [facility] MRSA / MSSA SCREEN BY PCR, [facility] 2024-04 06:50:00 Dumont, [facility] FIBRINOGEN 2024-05-14 05:24:00 [facility] FIBRINOGEN 2024-05-14 05:24:00 [facility] FIBRINOGEN 2024-05-14 05:24:00 [facility] TRANSFUSE PACKED RBC 2024-05-14 03:32:00 [facility] TRANSFUSE PACKED RBC 2024-05-14 03:32:00 [facility] TRANSFUSE PACKED RBC 2024-05-14 03:32:00 [facility] PREPARE PACKED RBC 2024-05-14 03:27:23 [facility] PREPARE PACKED RBC 2024-05-14 03:27:23 [facility] PREPARE PACKED RBC 2024-05-14 03:27:23 [facility] LACTIC ACID WHOLE BLOOD 2024-05-14 03:21:00 [facility] LACTIC ACID WHOLE BLOOD 2024-05-14 03:21:00 [facility] LACTIC ACID WHOLE BLOOD 2024-05-14 03:21:00 [facility] CT ANGIOGRAM ABDOMEN/PELVIS 2024-05-14 02:46:55 [facility] CT ANGIOGRAM ABDOMEN/PELVIS 2024-05-14 02:46:[address] [facility] CT ANGIOGRAM ABDOMEN/PELVIS 2024-05-14 02:46:55 [facility] HB ECG ROUTINE & RHYTHM STRIP 2024-05-14 01:35:49 Tien Gross [facility] HB ECG ROUTINE & RHYTHM STRIP 2024-05-14 01:35:49 Tien Gross [facility] HB ECG ROUTINE & RHYTHM STRIP 2024-05-14 01:35:49 Tien Gross [facility] ABORH CONFIRMATION (LAB ONLY) 2024-05-14 01:03:00 Tien Gross [facility] ABORH CONFIRMATION (LAB ONLY) 2024-05-14 01:03:00 Tien Gross [facility] ABORH CONFIRMATION (LAB ONLY) 2024-05-14 01:03:00 Tien Gross [facility] LACTIC ACID WHOLE BLOOD 2024-05-14 00:45:00 [facility] 2024-05-14 00:45:00 Tien Gross [facility] LACTIC ACID WHOLE BLOOD 2024-05-14 00:45:00 Tien Gross [facility] CBC WITH DIFF 2024-05-14 00:42:00 [facility] COMP. METABOLIC PANEL (78386) 2024-05-14 00:42:00 Tien Gross [facility] LIPASE 2024-05-14 00:42:00 Tien Gross [facility] TROPONIN I 2024-05-14 00:42:00 Tien Gross [facility] PROTHROMBIN TIME / INR 2024-05-14 00:42:00 Tien Gross [facility] ACTIVATED PARTIAL THRMPLAS MATILDE 2024-04-24 2 00:42:00 Tien Gross [facility] HB ABO GROUPING 2024-05-14 00:42:00 Tien Gross [facility] LIPASE 2024-05-14 00:42:00 Tien Gross [facility] TROPONIN I 2024-05-14 00:42:00 [facility] COMP. METABOLIC PANEL ([id number]) 2024-05-14 00:42:00 [facility] WITH [facility]FF 2024-05-14 00:42:00 [facility] PROT[facility] / INR 2024-05-14 00:42:00 [facility] ACTIVATED PARTIAL THRMPLAS MATILDE 2024-04-24 2 00:42:00 [facility] HB ABO GROUPING 2024-05-14 00:42:00 [facility] 2024-05-14 00:42:00 [facility] TROPONIN I 2024-05-14 00:42:00 [facility] COMP. METABOLIC PANEL ([id number]) 2024-05-14 00:42:00 [facility] CBC WITH DIFF 2024-05-14 00:42:00 [facility] PROTHROMBIN TIME / INR 2024-05-14 00:42:00 [facility] ACTIV[facility] PARTIAL THRMPLAS MATILDE 2024-04-24 2 00:42:00 [facility] HB ABO GROUPING 2024-05-14 00:42:00 [facility] CRITICAL CARE 2024-05-14 00:16:00 [facility] 2024-05-14 00:16:00 [facility] CRITICAL CARE 2024-05-14 00:16:00 [facility] POCT GLUCOSE (AUTOMATED) 2024-05-12 17:48:00 [facility] POCT GLUCOSE (AUTOMATED) 2024-05-12 17:48:00 [facility] POCT GLUCOSE (AUTOMATED) 2024-05-12 17:48:00 [facility] POCT GLUCOSE (AUTOMATED) 2024-05-12 13:52:00 [facility] POCT GLUCOSE (AUTOMATED) 2024-05-12 13:52:00 [facility] POCT GLUCOSE (AUTOMATED) 2024-05-12 13:52:00 [facility] XR CHEST 1 VW 2024-05-12 10:41:29 [facility] XR CHEST 1 VW 2024-05-12 10:41:29 [facility] XR CHEST 1 VW 2024-05-12 10:41:29 [facility] MAGNESIUM 2024-05-12 10:34:00 [facility] BASIC METABOLIC PANEL (NA, K , CL, CO2, GLUCOSE, BUN, CREATININE, CA) 2024-05-12 10:34:00 [facility] CBC WITH DIFF 2024-05-12 10:34:00 [facility] N-TERMINAL PRO-BNP 2024-05-12 10:34:00 [facility]24-05-12 10:34:00 [facility] BASIC METABOLIC PANEL (NA, K , CL, CO2, GLUCOSE, BUN, CREATININE, CA) 2024-05-12 10:34:00 [facility] CBC WITH DIFF 2024-05-12 10:34:00 [facility] N-TERMINAL PRO-BNP 2024-05-12 10:34:00 [facility]OLIC PANEL (NA, K , CL, CO2, GLUCOSE, BUN, CREATININE, CA) 2024-05-12 10:34:00 [facility] CBC WITH DIFF 2024-05-12 10:34:00 [facility] MAGNESIUM 2024-05-12 10:34:00 [facility] N-TERMINAL PRO-BNP 2024-05-12 10:34:00 [facility] 2024-05-12 03:32:00 [facility] POCT GLUCOSE (AUTOMATED) 2024-05-12 03:32:00 [facility] POCT GLUCOSE (AUTOMATED) 2024-05-12 03:32:00 [facility] POCT GLUCOSE (AUTOMATED) 2024-05-11 22:27:00 [facility] POCT GLUCOSE (AUTOMATED) 2024-05-11 22:27:00 [facility] POCT GLUCOSE (AUTOMATED) 2024-05-11 22:27:00 [facility] POCT GLUCOSE (AUTOMATED) 2024-05-11 17:25:00 [facility] POCT GLUCOSE (AUTOMATED) 2024-05-11 17:25:00 [facility] POCT GLUCOSE (AUTOMATED) 2024-05-11 17:25:00 [facility] POCT GLUCOSE (AUTOMATED) 2024-05-11 13:29:00 [facility] POCT GLUCOSE (AUTOMATED) 2024-05-11 13:29:00 [facility] POCT GLUCOSE (AUTOMATED) 2024-05-11 13:29:00 [facility] XR CHEST 1 VW 2024-05-11 11:48:46 Rey Mukherjee [facility] XR CHEST 1 VW 2024-05-11 11:48:46 Rey Mukherjee [facility] XR CHEST 1 VW 2024-05-11 11:48:46 Rey Mukherjee [facility] MAGNESIUM 2024-05-11 10:16:00 [facility] IRON 2024-05-11 10:16:00 [facility] BASIC METABOLIC PANEL (NA, K , CL, CO2, GLUCOSE, BUN, CREATININE, CA) 2024-05-11 10:16:00 [facility] CBC WITH DIFF 2024-05-11 10:16:00 [facility] RETICULOCYTES AUTOMATED 2024-05-11 10:16:00 [facility] MAGNESIUM 2024-05-11 10:16:00 [facility] IRON 2024-05-11 10:16:00 [facility] BASIC METABOLIC PANEL (NA, K , CL, CO2, GLUCOSE, BUN, CREATININE, CA) 2024-05-11 10:16:00 [facility] CBC WITH DIFF 2024-05-11 10:16:00 [facility] RETICULOCYTES AUTOMATED 2024-05-11 10:16:00 [facility] BASIC METABOLIC PANEL (NA, K , CL, CO2, GLUCOSE, BUN, CREATININE, CA) 2024-05-11 10:16:00 [facility] CBC WITH DIFF 2024-05-11 10:16:00 [facility] MAGNESIUM 2024-05-11 10:16:00 [facility] IRON 2024-05-11 10:16:00 [facility] RETICULOCYTES AUTOMATED 2024-05-11 10:16:00 [facility] HB ECG ROUTINE & RHYTHM STRIP 2024-05-11 02:36:56 Jeniffer Tang [facility] HB ECG ROUTINE & RHYTHM STRIP 2024-05-11 02:36:35 Pb Tavarez [facility] POCT GLUCOSE (AUTOMATED) 2024-05-11 02:33:00 [facility] POCT GLUCOSE (AUTOMATED) 2024-05-11 02:33:00 [facility] POCT GLUCOSE (AUTOMATED) 2024-05-11 02:33:00 [facility] POCT GLUCOSE (AUTOMATED) 2024-05-10 22:17:00 [facility] POCT GLUCOSE (AUTOMATED) 2024-05-10 22:17:00 [facility] POCT GLUCOSE (AUTOMATED) 2024-05-10 22:17:00 [facility] POCT GLUCOSE (AUTOMATED) 2024-05-10 18:04:00 [facility] POCT GLUCOSE (AUTOMATED) 2024-05-10 18:04:00 [facility] POCT GLUCOSE (AUTOMATED) 2024-05-10 18:04:00 [facility] POCT GLUCOSE (AUTOMATED) 2024-05-10 13:33:00 [facility] POCT GLUCOSE (AUTOMATED) 2024-05-10 13:33:00 [facility] POCT GLUCOSE (AUTOMATED) 2024-05-10 13:33:00 [facility] XR CHEST 1 VW 2024-05-10 11:21:02 Rey Mukherjee [facility] XR CHEST 1 VW 2024-05-10 11:21:02 Rey Mukherjee [facility] XR CHEST 1 VW 2024-05-10 11:21:02 Rey Mukherjee [facility] MAGNESIUM 2024-05-10 10:40:00 [facility] BASIC METABOLIC PANEL (NA, K , CL, CO2, GLUCOSE, BUN, CREATININE, CA) 2024-05-10 10:40:00 [facility] CBC WITH DIFF 2024-05-10 10:40:00 Jony Ram [facility] MAGNESIUM 2024-05-10 10:40:00 [facility] BASIC METABOLIC PANEL (NA, K , CL, CO2, GLUCOSE, BUN, CREATININE, CA) 2024-05-10 10:40:00 [facility] CBC WITH DIFF 2024-05-10 10:40:00 [facility] BASIC METABOLIC PANEL (NA, K , CL, CO2, GLUCOSE, BUN, CREATININE, CA) 2024-05-10 10:40:00 [facility] CBC WITH DIFF 2024-05-10 10:40:00 [facility] MAGNESIUM 2024-05-10 10:40:00 [facility] POCT GLUCOSE (AUTOMATED) 2024-05-10 02:18:00 [facility] POCT GLUCOSE (AUTOMATED) 2024-05-10 02:18:00 [facility] POCT GLUCOSE (AUTOMATED) 2024-05-10 02:18:00 [facility] XR CHEST 1 VW 2024-05-09 21:48:20 [facility] XR CHEST 1 VW 2024-05-09 21:48:20 [facility] XR CHEST 1 VW 2024-05-09 21:48:20 [facility] XR CHEST 1 VW 2024-05-09 18:52:03 Rey Mukherjee [facility] XR CHEST 1 VW 2024-05-09 18:52:03 Rey Mukherjee [facility] XR CHEST 1 VW 2024-05-09 18:52:03 Rey Mukherjee [facility] POCT GLUCOSE (AUTOMATED) 2024-05-09 18:30:00 Pb Tavarez [facility] POCT GLUCOSE (AUTOMATED) 2024-05-09 18:30:00 Pb Tavarez [facility] POCT GLUCOSE (AUTOMATED) 2024-05-09 18:30:00 Pb Tavarez [facility] POCT GLUCOSE (AUTOMATED) 2024-05-09 17:42:00 Corby Pb [facility] POCT GLUCOSE (AUTOMATED) 2024-05-09 17:42[facility] 2024-05-09 17:42:00 Pb Tavarez [facility] FL TIME OR (NON-REPORTABLE) 2024-05-09 17:16:00 Rey Mukherjee [facility] FL TIME OR (NON-REPORTABLE) 2024-05-09 17:16:00 Rey Mukherjee [facility] FL TIME OR (NON-REPORTABLE) 2024-05-09 17:16:00 Rey Mukherjee [facility] NERVE BLOCK 2024-05-09 14:59:54 Jony Vaughan [facility] [id number] - [place] CRTJ ARVEN FSTL X CP DIR ARVWILBERTO SCHMITT NONAUTOG DAY [facility] 2024-05-09 13:33:00 Asad Morgan [facility] [id number] - [place] INSJ TUNNELED CVC W/O SUBQ PORT/PHYSICIST LIGHT AND OPTICS AGE 6 YR/> 2024-05-09 13:33:00 Obinna [facility] [id number] - [place] CRTJ ARVEN FSTL X CP DIR ARVEN ANAST NONAUTOG DAY [facility] 2024-05-09 13:33:00 Obinna [facility] [id number] - [place] INSJ TUNNELED CVC W/O SUBQ PORT/PHYSICIST LIGHT AND OPTICS AGE 6 YR/> 2024-05-09 13:33:00 Asad Morgan [facility] POCT GLUCOSE (AUTOMATED) 2024-05-09 12:57:00 [place], [facility] POCT GLUCOSE (AUTOMATED) 2024-05-09 12:57:00 Corby [facility] POCT GLUCOSE (AUTOMATED) 2024-05-09 12:57:00 [facility] 2024-05-09 10:44:00 Jayla [facility] BASIC METABOLIC PANEL (NA, K , CL, CO2, GLUCOSE, BUN, CREATININE, CA) 2024-05-09 10:44:00 Jayla [facility] CBC WITH DIFF 2024-05-09 10:44:00 Jayla [facility] PROTHROMBIN TIME / INR 2024-05-09 10:44:00 Jayla [facility] MAGNESIUM 2024-05-09 10:44:00 Jayla [facility] BASIC METABOLIC PANEL (NA, K , CL, CO2, GLUCOSE, BUN, CREATININE, CA) 2024-05-09 10:44:00 Jayla [facility] CBC WITH DIFF 2024-05-09 10:44:00 Jayla [facility] PROTHROMBIN TIME / INR 2024-05-09 10:44:00 Jayla [facility] BASIC METABOLIC PANEL (NA, K , CL, CO2, GLUCOSE, BUN, CREATININE, CA) 2024-05-09 10:44:00 Jayla [facility] MAGNESIUM 2024-05-09 10:44:00 Jayla [facility] CBC WITH DIFF 2024-05-09 10:44:00 Jayla [facility] PROTHROMBIN TIME / INR 2024-05-09 10:44:00 Jayla [facility] POCT GLUCOSE (AUTOMATED) 2024-05-09 02:41:00 Corby [facility] POCT GLUCOSE (AUTOMATED) 2024-05-09 02:41:00 Corby [facility] POCT GLUCOSE (AUTOMATED) 2024-05-09 02:41:00 Corby [facility] POCT GLUCOSE (AUTOMATED) 2024-05-08 23:03:00 Corby [facility] POCT GLUCOSE (AUTOMATED) 2024-05-08 23:03:00 Corby [facility] POCT GLUCOSE (AUTOMATED) 2024-05-08 23:03:00 Corby [facility] POCT GLUCOSE (AUTOMATED) 2024-05-08 17:36:00 Corby [facility] POCT GLUCOSE (AUTOMATED) 2024-05-08 17:36:00 Corby [facility] POCT GLUCOSE (AUTOMATED) 2024-05-08 17:36:00 Corby [facility] POCT GLUCOSE (AUTOMATED) 2024-05-08 13:33:00 Corby [facility] POCT GLUCOSE (AUTOMATED) 2024-05-08 13:33:00 Corby [facility] POCT GLUCOSE (AUTOMATED) 2024-05-08 13:33:00 Corby [facility] MAGNESIUM 2024-05-08 09:39:00 Jayla [facility] FERRITIN SERUM 2024-05-08 09:39:00 Mallory [facility] BASIC METABOLIC PANEL (NA, K , CL, CO2, GLUCOSE, BUN, CREATININE, CA) 2024-05-08 09:39:00 Jayla [facility] IRON PANEL 2024-05-08 09:39:00 Mallory [facility] CBC WITH DIFF 2024-05-08 09:39:00 Ora Dickerson [facility] HEPATITIS B SURFACE ANTIBODY 2024-05-08 09:39:00 Mallory [facility] HEPATITIS B SURFACE ANTIGEN 2024-05-08 09:39:00 Mallory [facility] HCV ANTIBODY 2024-05-08 09:39:00 Mallory [facility] HBC ANTIBODY (IGM & IGG) 2024-05-08 09:39:00 Jony Ram [facility] HEPATITIS B CORE ANTIBODY IGM 2024-05-08 09:39:00 Mallory [facility] PROCALCITONIN 2024-05-08 09:39:00 Bakari Nesbitt [facility] MAGNESIUM 2024-05-08 09:39:00 Ora Dickerson [facility] FERRITIN SERUM 2024-05-08 09:39:00 Ankrish [facility] BASIC METABOLIC PANEL (NA, K , CL, CO2, GLUCOSE, BUN, CREATININE, CA) 2024-05-08 09:39:00 Ora Dickerson [facility] IRON PANEL 2024-05-08 09:39:00 Ankrish [facility] CBC WITH DIFF 2024-05-08 09:39:00 Ora Dickerson [facility] HEPATITIS B SURFACE ANTIBODY 2024-05-08 09:39:00 Ankrish [facility] HEPATITIS B SURFACE ANTIGEN 2024-05-08 09:39:00 Mallory [facility] HCV ANTIBODY 2024-05-08 09:39:00 Mallory [facility] HBC ANTIBODY (IGM & IGG) 2024-05-08 09:39:00 Jony Ram [facility] HEPATITIS B CORE ANTIBODY IGM 2024-05-08 09:39:00 Ankrish [facility] PROCALCITONIN 2024-05-08 09:39:00 Bakari Nesbitt [facility] PROCALCITONIN 2024-05-08 09:39:00 Bakari Nesbitt [facility] BASIC METABOLIC PANEL (NA, K , CL, CO2, GLUCOSE, BUN, CREATININE, CA) 2024-05-08 09:39:00 Ora Dickerson [facility] MAGNESIUM 2024-05-08 09:39[facility]24-05-08 09:39[facility]00 [facility] 2024-05-08 09:39:00 Ankrish [facility] IRON PANEL 2024-05-08 09:39:00 Mallory [facility] FERRITIN SERUM 2024-05-08 09:39:00 Mallory [facility] HEPATITIS B CORE ANTIBODY IGM 2024-05-08 09:39:00 Mallory [facility] HEPATITIS B SURFACE ANTIBODY 2024-05-08 09:39:00 [facility]ory [facility] HEPATITIS B SURFACE ANTIGEN 2024-05-08 09:39:00 Mallory [facility] HBC ANTIBODY (IGM & IGG) 2024-05-08 09:39:00 Jony Ram [facility] POCT GLUCOSE (AUTOMATED) 2024-05-08 02:16:00 [facility] POCT GLUCOSE (AUTOMATED) 2024-05-08 02:16:00 [facility] POCT GLUCOSE (AUTOMATED) 2024-05-08 02:16:00 [facility] POCT GLUCOSE (AUTOMATED) 2024-05-07 22:39:00 [facility] POCT GLUCOSE (AUTOMATED) 2024-05-07 22:39:00 [facility] POCT GLUCOSE (AUTOMATED) 2024-05-07 22:39:00 [facility] POCT GLUCOSE (AUTOMATED) 2024-05-07 17:29:00 [facility] POCT GLUCOSE (AUTOMATED) 2024-05-07 17:29:00 [facility] POCT GLUCOSE (AUTOMATED) 2024-05-07 17:29:00 [facility] TRANSTHORACIC ECHO (TTE) COM PLETE W/ CONTRAST 2024-05-07 16:09:00 [facility] TRANSTHORACIC ECHO (TTE) COM PLETE W/ CONTRAST 2024-05-07 16:09:00 [facility] TRANSTHORACIC ECHO (TTE) COM PLETE W/ CONTRAST 2024-05-07 16:09:00 [place] [place] [facility] CYTO PLEURAL FLUID 2024-05-07 16:05:00 Brennan Nesbitt [facility] CYTO PLEURAL FLUID 2024-05-07 16:05:00 Delicia juju [facility] CYTO PLEURAL FLUID 2024-05-07 16:05:00 Brennan Nesbitt [facility] XR CHEST 1 VW 2024-05-07 15:59:38 Brennan Nesbitt [facility] XR CHEST 1 VW 2024-05-07 15:59:38 Brennan Nesbitt [facility] XR CHEST 1 VW 2024-05-07 15:59:38 Brennan Nesbitt [facility] GLUCOSE BODY FLUID 2024-05-07 15:55:00 Brennan Nesbitt [facility] PH, BODY FLUID 2024-05-07 15:55:00 Brennan Nesbitt [facility] ALBUMIN BODY FLUID 2024-05-07 15:55:00 Brennan Nesbitt [facility] T.PROTEIN BODY FLUID 2024-05-07 15:55:00 Brennan Nesbitt [facility] BODY FLUID DIRECT COUNT 2024-05-07 15:55:00 Delicia juju [employer] [facility] BODY FLUID CULTURE(AEROBIC/ANAEROBIC) 2024-05-07 15:55:00 Brennan Nesbitt [facility] LDH TOTAL BODY FLUID 2024-05-07 15:55:00 Brennan Nesbitt [facility] GLUCOSE BODY FLUID 2024-05-07 15:55:00 Brennan Nesbitt [facility] PH, BODY FLUID 2024-05-07 15:55:00 Brennan Nesbitt [facility] ALBUMIN BODY FLUID 2024-05-07 15:55:00 Brennan Nesbitt [facility] T.PROTEIN BODY FLUID 2024-05-07 15:55:00 Brennan Nesbitt [facility] BODY FLUID DIRECT COUNT 2024-05-07 15:55:00 Delicia juju [employer] [facility] BODY FLUID CULTURE(AEROBIC/ANAEROBIC) 2024-05-07 15:55:00 Delicia juju [employer] [facility] LDH TOTAL BODY FLUID 2024-05-07 15:55:00 Delicia [facility] ALBUMIN BODY FLUID 2024-05-07 15:55:00 Delicia juju [employer] [facility] BODY FLUID MANUAL DIFF 2024-05-07 15:55:00 Brennan Nesbitt [facility] BODY FLUID CULTURE(AEROBIC/ANAEROBIC) 2024-05-07 15:55:00 Delicia juju [facility] GLUCOSE BODY FLUID 2024-05-07 15:55:00 Delicia juju [facility] T.PROTEIN BODY FLUID 2024-05-07 15:55:00 Delicia [facility] PH, BODY FLUID 2024-05-07 15:55:00 Delicia [facility] LDH TOTAL BODY FLUID 2024-05-07 15:55:00 Delicia [facility] IR THORACENTESIS WITH IMAGING 2024-05-07 15:50:00 Corby [facility] IR THORACENTESIS WITH IMAGING 2024-05-07 15:50:00 Corby [facility] IR THORACENTESIS WITH IMAGING 2024-05-07 15:50:00 Corby [facility] POCT GLUCOSE (AUTOMATED) 2024-05-07 14:04:00 Corby [facility] POCT GLUCOSE (AUTOMATED) 2024-05-07 14:04:00 Corby [facility] POCT GLUCOSE (AUTOMATED) 2024-05-07 14:04:00 Corby [facility] PHOSPHORUS 2024-05-07 11:06:00 Corby [facility] MAGNESIUM 2024-05-07 11:06:00 Corby [facility] TROPONIN I 2024-05-07 11:06:00 Corby [facility] BASIC METABOLIC PANEL (NA, K , CL, CO2, GLUCOSE, BUN, CREATININE, CA) 2024-05-07 11:06:00 Corby [facility] CBC WITHOUT DIFF 2024-05-07 11:06:00 Corby [facility] N-TERMINAL PRO-BNP 2024-05-07 11:06:00 Corby [facility] PHOSPHORUS 2024-05-07 11:06:00 Corby [facility] MAGNESIUM 2024-05-07 11:06:00 Corby [facility] TROPONIN I 2024-05-07 11:06:00 Corby [facility] BASIC METABOLIC PANEL (NA, K , CL, CO2, GLUCOSE, BUN, CREATININE, CA) 2024-05-07 11:06:00 Corby [facility] CBC WITHOUT DIFF 2024-05-07 11:06:00 Corby [facility] N-TERMINAL PRO-BNP 2024-05-07 11:06:00 Corby [facility] BASIC METABOLIC PANEL (NA, K , CL, CO2, GLUCOSE, BUN, CREATININE, CA) 2024-05-07 11:06:00 Corby [facility] MAGNESIUM 2024-05-07 11:06:00 Corby [facility] PHOSPHORUS 2024-05-07 11:06:00 Corby [facility] N-TERMINAL PRO-BNP 2024-05-07 11:06:00 Corby [facility] CBC WITHOUT DIFF 2024-05-07 11:06:00 Corby [facility] TROPONIN I 2024-05-07 11:06:00 Corby [facility] GLYCOSYLATED HEMOGLOBIN (A1C) 2024-05-07 03:18:00 Corby [facility] GLYCOSYLATED HEMOGLOBIN (A1C) 2024-05-07 03:18:00 Corby [facility] GLYCOSYLATED HEMOGLOBIN (A1C) 2024-05-07 03:18:00 Corby [facility] POCT GLUCOSE (AUTOMATED) 2024-05-07 02:35:00 Corby [facility] POCT GLUCOSE (AUTOMATED) 2024-05-07 02:35:00 Corby [facility] POCT GLUCOSE (AUTOMATED) 2024-05-07 02:35:00 Corby [facility] HB ECG ROUTINE & RHYTHM STRIP 2024-05-07 00:18:23 Cathy [facility] HB ECG ROUTINE & RHYTHM STRIP 2024-05-07 00:18:23 Uribe, [facility] HB ECG ROUTINE & RHYTHM STRIP 2024-05-07 00:18:23 Uribe, [facility] XR CHEST 1 VW 2024-05-07 00:11:33 Cathy [facility] XR CHEST 1 VW 2024-05-07 00:11:33 Cathy [facility] XR CHEST 1 VW 2024-05-07 00:11:33 Cathy [facility] PHOSPHORUS 2024-05-07 00:09:00 Corby [facility] MAGNESIUM 2024-05-07 00:09:00 Corby [facility] TROPONIN I 2024-05-07 00:09:00 Cathy [facility] COMP. METABOLIC PANEL (41820) 2024-05-07 00:09:00 Cathy [facility] CBC WITH DIFF 2024-05-07 00:09:00 Cathy [facility] N-TERMINAL PRO-BNP 2024-05-07 00:09:00 Cathy [facility] PHOSPHORUS 2024-05-07 00:09:00 Corby [facility] MAGNESIUM 2024-05-07 00:09:00 Corby [facility] TROPONIN I 2024-05-07 00:09:00 Cathy [facility] COMP. METABOLIC PANEL ([id number]) 2024-05-07 00:09:00 Cathy [facility] CBC WITH DIFF 2024-05-07 00:09:00 Cathy [facility] N-TERMINAL PRO-BNP 2024-05-07 00:09:00 Cathy [facility] CBC WITH DIFF 2024-05-07 00:09:00 Cathy [facility] COMP. METABOLIC PANEL ([id number]) 2024-05-07 00:09:00 Cathy [facility] N-TERMINAL PRO-BNP 2024-05-07 00:09:00 Tomas Uribe [facility] TROPONIN I 2024-05-07 00:09:00 Tomas Uribe [facility] MAGNESIUM 2024-05-07 00:09:00 Corby Pb [facility] PHOSPHORUS 2024-05-07 00:09:00 Pb Tavarez [facility] XR LUMBAR SPINE 3 VW 2024-02-18 19:47:57 Jaki Downs [facility] XR SPINE THORACIC 2 VW 2024-02-18 19:47:57 Jaki Downs [facility] XR SPINE THORACIC 2 VW 2024-02-18 19:47:57 Jaki Downs [facility] XR LUMBAR SPINE 3 VW 2024-02-18 19:47:57 Jaki Downs [facility] TROPONIN I 2024-01-30 23:20:00 Jaki Downs [facility] XR CHEST 1 VW 2024-01-30 21:28:34 Jaki Downs [facility] HB ECG ROUTINE & RHYTHM STRIP 2024-01-30 21:07:32 Jaki Downs [facility] MAGNESIUM 2024-01-30 21:03:00 Jaki Downs [facility] TROPONIN I 2024-01-30 21:03:00 Jaki Downs [facility] COMP. METABOLIC PANEL ([id number]) 2024-01-30 21:03:00 Jaki Downs [facility] CBC WITH DIFF 2024-01-30 21:03:00 Jaki Downs [facility] N-TERMINAL PRO-BNP 2024-01-30 21:03:00 Jaki Downs [facility] PHYSICIAN ORDERS 2023-12-20 16:24:18 Doctor Unassigned, [place] [facility] PHYSICIAN ORDERS 2023-11-29 19:54:09 Doctor Unassigned, [place] [facility] PHYSICIAN ORDERS 2023-11-29 19:52:22 Doctor Unassigned, [place] [facility] POCT GLUCOSE (AUTOMATED) 2023-09-08 16:10:00 Jony Ram [facility] POCT GLUCOSE (AUTOMATED) 2023-09-08 12:44:00 Jony Ram [facility] BLOOD CULTURE SCREEN 2023-09-08 12:16:00 Eder Quezada [facility] LIPASE 2023-09-08 12:16:00 Eder Quezada [facility] CRITICAL CARE 2023-09-08 11:50:30 Tien Gross [facility] POCT GLUCOSE (AUTOMATED) 2023-09-08 11:48:00 Tien Gross [facility] POCT GLUCOSE (AUTOMATED) 2023-09-08 10:28:00 Tien Gross [facility] LIPASE 2023-09-08 10:27:00 Tien Gross [facility] TROPONIN I 2023-09-08 10:27[facility]00 [facility] METABOLIC PANEL ([id number]) 2023-09-08 10:27:00 Tien Gross [facility] ETHANOL 2023-09-08 10:27:00 [facility] WITH [facility]FF 2023-09-08 10:27:00 [facility] EXTERNAL PROVIDER RECORDS 2023-05-04 06:01:00 Doctor Unassigned, [place] [facility] CBC WITH DIFF 2023-05-03 20:16:00 Mallory [facility] FERRITIN SERUM 2023-05-03 20:16:00 Mallory [facility] IRON 2023-05-03 20:16:00 Mallory [facility] BASIC METABOLIC PANEL (NA, K , CL, CO2, GLUCOSE, BUN, CREATININE, CA) 2023-04-06 20:35:00 Mayur Carolina [facility] N-TERMINAL PRO-BNP 2023-04-06 20:35:00 Mayur Carolina [facility] CARDIAC CATHETERIZATION 2023-04-02 15:51:00 Dilia Turner [facility] CATH PROCEDURE LOG 2023-04-02 15:43:33 Dilia Turner [facility] CBC WITH DIFF 2023-04-02 12:57:00 Mayur Carolina [facility] PROTHROMBIN TIME / INR 2023-04-02 12:57:00 Mayur Carolina [facility] OUTPATIENT CARDIAC CATHETERI ZATION DOCUMENTS 2023-04-02 06:01:00 Doctor Unassigned, [place] [facility] PULMONARY FUNCTION TEST (RESULTS) 2022-04 20:16:30 Chris Salmonahim [facility] PULMONARY FUNCTION TEST (RESULTS) 2022-04 19:02:34 Chris Salmonahim [facility] DISCLOSURE AND CONSENT, MEDI MEDINA AND SURGICAL PROCEDURES 2023-03-29 06:01:00 Doctor Unassigned, [place] [facility] POCT GLUCOSE (AUTOMATED) 2023-01-17 16:36:00 Jony Ram [facility] POCT GLUCOSE (AUTOMATED) 2023-01-17 12:34:00 Jony Ram [facility] MAGNESIUM 2023-01-17 09:08:00 [facility]OLIC PANEL (NA, K , CL, CO2, GLUCOSE, BUN, CREATININE, CA) 2023-01-17 09:08:00 Corby [facility] N-TERMINAL PRO-BNP 2023-01-17 09:08:00 [facility] ([facility]OMATED) 2023-01-17 08:51:00 Jony Ram [facility] POCT GLUCOSE (AUTOMATED) 2023-01-17 07:56:00 Jony Ram [facility] POCT GLUCOSE (AUTOMATED) 2023-01-17 01:58:00 Jony Ram [facility] POCT GLUCOSE (AUTOMATED) 2023-01-16 21:41:00 Jony Ram [facility] US RETROPERITONEAL LIMITED 2023-01-16 19:36:20 Ora Dickerson [facility] URIC ACID 2023-01-16 16:54:00 Mallory Mark [facility] MAGNESIUM 2023-01-16 16:54:00 Mallory [facility] BASIC METABOLIC PANEL (NA, K , CL, CO2, GLUCOSE, BUN, CREATININE, CA) 2023-01-16 16:54:00 Mark Tejada [facility] N-TERMINAL PRO-BNP 2023-01-16 16:54:00 Lucia Craft [facility] POCT GLUCOSE (AUTOMATED) 2023-01-16 16:30:00 [facility] TRANSTHORACIC ECHO (TTE) COM PLETE W/ CONTRAST 2023-01-16 13:55:00 [facility] POCT GLUCOSE (AUTOMATED) 2023-01-16 13:24:00 [facility] XR CHEST 1 VW 2023-01-16 12:53:00 Bakari Nesbitt [facility] GLUCOSE BODY FLUID 2023-01-16 12:24:00 Bakari Nesbitt [facility] PH, BODY FLUID 2023-01-16 12:24:00 Bakari Nesbitt [facility] T.PROTEIN BODY FLUID 2023-01-16 12:24:00 Bakari Nesbitt [facility] BODY FLUID DIRECT COUNT 2023-01-16 12:24:00 Bakari Nesbitt [facility] BODY FLUID CULTURE(AEROBIC/ANAEROBIC) 2023-01-16 12:24:00 Bakari Nesbitt [facility] LDH TOTAL BODY FLUID 2023-01-16 12:24:00 Bakari Nesbitt [facility] GLYCOSYLATED HEMOGLOBIN (A1C) 2023-01-16 09:23:00 Jony Ram [facility] POCT GLUCOSE (AUTOMATED) 2023-01-16 02:28:00 [facility] CT THORAX WO CONTRAST 2023-01-15 19:29:24 Tien Gross [facility] CT THORAX WO CONTRAST 2023-01-15 19:29:24 [facility] XR CHEST 1 VW 2023-01-15 18:05:04 Renato [facility] TROPONIN I 2023-01-15 17:50:00 Ren[facility] COMP. METABOLIC PANEL ([id number]) 2023-01-15 17:50:00 Tien Gross [facility] CBC WITH DIFF 2023-01-15 17:50:00 Tien Gross [facility] PROTHROMBIN TIME / INR 2023-01-15 17:50:00 Tien Gross [facility] ACTIVATED PARTIAL THRMPLAS MATILDE 2022-12-23 5 17:50:00 Tien Gross [facility] N-TERMINAL PRO-BNP 2023-01-15 17:50:00 Tien Gross [facility] HB ECG ROUTINE & RHYTHM STRIP 2023-01-15 17:44:13 Tien Gross [facility] CONSENT/REFUSAL FOR DIAGNOSI S AND TREATMENT 2023-01-15 17:12:24 Doctor Unassigned, [place] [facility] ASSIGNMENT OF BENEFITS 2022-08-03 15:51:54 Doctor Unassigned, [place] [facility] POCT GLUCOSE(AGE >30DAYS) 2022-07-11 20:27:00 Benjamin Kimbrough [facility] POCT GLUCOSE (AUTOMATED) 2022-07-11 20:15:00 Benjamin Kimbrough [facility] POCT GLUCOSE (AUTOMATED) 2022-05-23 17:45:00 Corby [facility] POCT GLUCOSE (AUTOMATED) 2022-05-23 13:41:00 Corby [facility] MAGNESIUM 2022-05-23 10:00:00 Corby [facility] BASIC METABOLIC PANEL (NA, K , CL, CO2, GLUCOSE, BUN, CREATININE, CA) 2022-05-23 10:00:00 [facility] 2022-05-23 10:00:00 Corby [facility] POCT GLUCOSE (AUTOMATED) 2022-05-23 09:55:00 Corby [facility] POCT GLUCOSE (AUTOMATED) 2022-05-23 06:06:00 Corby [facility] POCT GLUCOSE (AUTOMATED) 2022-05-23 05:34:00 Corby [facility] POCT GLUCOSE (AUTOMATED) 2022-05-23 02:46:00 [place], [facility] POCT GLUCOSE (AUTOMATED) 2022-05-22 22:33:00 Corby [facility] POCT GLUCOSE (AUTOMATED) 2022-05-22 17:35:00 Corby [facility] POCT GLUCOSE (AUTOMATED) 2022-05-22 13:28:00 Corby [facility] POCT GLUCOSE (AUTOMATED) 2022-05-22 10:31:00 Corby [facility] POCT GLUCOSE (AUTOMATED) 2022-05-22 10:00:00 Corby [facility] MAGNESIUM 2022-05-22 09:49:00 Corby [facility] TROPONIN I 2022-05-22 09:49:00 Lucia Craft [facility] BASIC METABOLIC PANEL (NA, K , CL, CO2, GLUCOSE, BUN, CREATININE, CA) 2022-05-22 09:49:00 Corby [facility] N-TERMINAL PRO-BNP 2022-05-22 09:49:00 Corby [facility] POCT GLUCOSE (AUTOMATED) 2022-05-22 02:27:00 Corby [facility] POCT GLUCOSE (AUTOMATED) 2022-05-21 22:50:00 Corby [facility] POCT GLUCOSE (AUTOMATED) 2022-05-21 17:17:00 Corby [facility] POCT GLUCOSE (AUTOMATED) 2022-05-21 13:25:00 Corby [facility] MAGNESIUM 2022-05-21 10:42:00 Corby [facility] BASIC METABOLIC PANEL (NA, K , CL, CO2, GLUCOSE, BUN, CREATININE, CA) 2022-05-21 10:42:00 Corby [facility] CBC WITHOUT DIFF 2022-05-21 10:42:00 Corby [facility] N-TERMINAL PRO-BNP 2022-05-21 10:42:00 Corby [facility] POCT GLUCOSE (AUTOMATED) 2022-05-21 10:31:00 Corby [facility] POCT GLUCOSE (AUTOMATED) 2022-05-21 06:03:00 Corby [facility] POCT GLUCOSE (AUTOMATED) 2022-05-21 02:32:00 Corby [facility] POCT GLUCOSE (AUTOMATED) 2022-05-20 22:30:00 Corby [facility] POCT GLUCOSE (AUTOMATED) 2022-05-20 17:17:00 Corby [facility] POCT GLUCOSE (AUTOMATED) 2022-05-20 14:29:00 Corby [facility] MAGNESIUM 2022-05-20 09:58:00 Corby [facility] BASIC METABOLIC PANEL (NA, K , CL, CO2, GLUCOSE, BUN, CREATININE, CA) 2022-05-20 09:58:00 Corby [facility] N-TERMINAL PRO-BNP 2022-05-20 09:58:00 Corby [facility] POCT GLUCOSE (AUTOMATED) 2022-05-20 07:10:00 Corby [facility] POCT GLUCOSE (AUTOMATED) 2022-05-20 02:51:00 Corby [facility] POCT GLUCOSE (AUTOMATED) 2022-05-19 23:21:00 Corby [facility] TRANSTHORACIC ECHO (TTE) COM PLETE W/ CONTRAST 2022-05-19 19:39:00 Benjamin Kimbrough [facility] URINALYSIS 2022-05-19 17:31:00 Benjamin Kimbrough [facility] XR CHEST 1 VW 2022-05-19 17:14:04 Benjamin Kimbrough [facility] MAGNESIUM 2022-05-19 17:01:00 Benjamin Kimbrough [facility] TROPONIN I 2022-05-19 17:01:00 Benjamin Kimbrough [facility] COMP. METABOLIC PANEL ([id number]) 2022-05-19 17:01:00 Benjamin Kimbrough [facility] CBC WITH DIFF 2022-05-19 17:01:00 Benjamin Kimbrough [facility] GLYCOSYLATED HEMOGLOBIN (A1C) 2022-05-19 17:01:00 Pb Tavarez [facility] N-TERMINAL PRO-BNP 2022-05-19 17:01:00 Benjamin Kimbrough [facility] COVID-19 (ID NOW RAPID TESTING) 17:01:00 Benjamin Kimbrough [facility] LAB ONLY COVID INTERPRETATION 2022-05-19 17:01:00 Benjamin Kimbrough [facility] HB ECG ROUTINE & RHYTHM STRIP 2022-05-19 17:00:35 Benjamin Kimbrough Radha [facility] CONSENT/REFUSAL FOR DIAGNOSI S AND TREATMENT 2022-05-19 16:02:02 Doctor Unassigned, [place] [facility] LIPID PANEL ([id number])(TOTAL CHOLESTEROL, TRIGLYCERIDES, HDL) 2022-05-18 17:16:00 Andrea Cabrera [facility] CONSENT/REFUSAL FOR DIAGNOSI S AND TREATMENT 2022-05-09 14:48:11 Doctor Unassigned, [place] [facility] DME/SUPPLY JUSTIFICATION 2022-03-08 06:01:00 Doctor Unassigned, [place] [facility] DME/SUPPLY JUSTIFICATION 2022-01-18 05:01:00 Doctor Unassigned, [place] [facility] DME/SUPPLY JUSTIFICATION 2022-01-04 05:01:00 Doctor Unassigned, [place] [facility] REFERRAL- REQUEST/RESPONSE 2021-11-11 05:01:00 Doctor Unassigned, [place] [facility] EXTERNAL PROVIDER - ADC CARDIOLOGY 07-19 05:01:00 Doctor Unassigned, [place] [facility] SLEEP LAB RESULTS 2021-06-01 06:01:00 Doctor Unassigned, [place] [facility] HB ECG ROUTINE & RHYTHM STRIP 2021-03-01 15:12:23 Andrea Cabrera [facility] Encounters Start Date/Time End Date/Time Encounter Type Admission Type Attending [facility] Care Facility Care Department Encounter ID Source 2024-09-19 09:45:38 Outpatient Jacinta [facility] [id number] [facility] 2024-05-28 11:08:00 Outpatient Rodriguez Nancy STLMLC STLMLC [id number] [facility] 2024-05-15 14:09:00 Outpatient Rodriguez, Nancy STLMLC STLMLC [id number] [facility] 2024-04-21 14:13:09 Outpatient ISMAEL BAGLEY [facility] [id number] [facility] 2024-02-13 09:53:00 Outpatient Rodriguez, Nancy STLMLC STLMLC [id number] [facility] 2023-11-14 13:57:00 Outpatient Rodriguez, Nancy STLMLC STLMLC [id number] [facility] 2023-11-12 09:57:00 Outpatient Rodriguez, Nancy STLMLC STLMLC [id number] [facility] 2023-08-13 08:34:00 Outpatient Rodriguez, Nancy STLMLC STLMLC [id number] [facility] 2023-07-16 13:55:00 Outpatient Rodriguez, Nancy STLMLC STLMLC [id number] [facility] 2023-06-28 13:35:01 Outpatient Rodriguez, Nancy STLMLC STLMLC [id number] [facility] 2023-06-14 10:27:01 Outpatient Rodriguez, Nancy STLMLC STLMLC [id number] [facility] 2023-03-19 16:22:00 Outpatient Rodriguez, Nancy STLMLC STLMLC [id number] [facility] 2023-02-13 16:00:00 Outpatient Rodriguez, Nancy STLMLC STLMLC [id number] [facility] 2022-09-01 10:11:00 Outpatient RodriguezNoemyi STGLORYLC STLMLC [id number] [facility] 2022-07-12 09:07:01 Outpatient RodriguezNoemyi STLMLC STLMLC [id number] [facility] 2022-06-14 10:56:02 Outpatient RodriguezNoemyi STLMLC STLMLC [id number] [facility] 2022-06-13 14:04:02 Outpatient RodriguezNoemyi STLMLC STLMLC [id number] [facility] 2022-06-12 09:10:01 Outpatient RodriguezNoemyi STLMLC STLMLC [id number] [facility] 2022-06-05 09:30:02 Outpatient RodriguezNoemyi STLMLC STLMLC [id number] [facility] 2022-03-29 11:32:01 Outpatient RodriguezNoemyi STLMLC STLMLC [id number] [facility] 2022-02-22 08:52:02 Outpatient RodriguezNoemyi STLMLC STLMLC [id number] [facility] 2022-01-25 11:16:03 Outpatient RodriguezNoemyi STLMLC STLMLC [id number] [facility] 2021-11-28 16:51:01 Outpatient Rodriguez Nancy STLMLC STLMLC [id number] [facility] 2021-07-15 09:35:02 Outpatient Rodriguez Nancy STLMLC STLMLC [id number] [facility] 2021-05-18 14:36:44 Outpatient Rodriguez Nancy STLMLC STLMLC [id number] [facility] 2024-12-09 00:00:00 2024-12-09 16:45:44 Letter (Out) Mark Tejada [facility] [id number] [facility] 2024-11-27 00:00:00 2024-11-27 16:46:[address] [facility] BUILDING 1.2.840.114 350.1.13.10 4.2.7.2.686 [id number] [facility] 2024-11-27 00:00:00 2024-11-27 16:38:24 [facility] 1.2.840.114 350.1.13.10 4.2.7.2.686 [id number] [facility] 2024-11-26 00:00:00 2024-11-26 00:00:00 (TEL) STLMLC STLMLC [id number] [facility] 2024-11-26 00:00:00 2024-11-26 00:00:00 (TEL) STLMLC STLMLC [id number] [facility] 2024-11-25 00:00:00 2024-11-25 00:00:00 OFFICE VISIT ESTAB PT LEVEL 4 STLMLC STLMLC [id number] [facility] 2024-09-09 00:00:00 2024-09-09 00:00:00 (TEL) STLMLC STLMLC [id number] [facility] 2024-09-09 00:00:00 2024-09-09 00:00:00 (TEL) STLMLC STLMLC [id number] [facility] 2024-09-05 00:00:00 2024-09-05 00:00:00 (TEL) STLMLC STLMLC [id number] [facility] 2024-09-02 00:00:00 2024-09-02 00:00:00 (TEL) STLMLC STLMLC [id number] [facility] 2024-08-19 00:00:00 2024-08-19 00:00:00 (TEL) STLMLC STLMLC [id number] [facility] 2024-08-07 00:00:00 2024-08-07 00:00:00 (TEL) STLMLC STLMLC [id number] [facility] 2024-08-04 13:00:00 2024-08-04 13:00:00 Outpatient ASAD POND [facility] [id number] [facility] 2024-08-04 00:00:00 2024-08-04 00:00:00 (TEL) STLMLC STLMLC [id number] [facility] 2024-08-04 00:00:00 2024-08-04 00:00:00 (TEL) STLMLC STLMLC [id number] [facility] 2024-07-30 00:00:00 2024-07-30 00:00:00 (TEL) STLMLC STLMLC [id number] [facility] 2024-07-29 00:00:00 2024-07-29 00:00:00 (TEL) STLMLC STLMLC [id number] [facility] 2024-07-22 00:00:00 2024-07-22 00:00:00 (TEL) STLMLC STLMLC [id number] [facility] 2024-07-15 00:00:00 2024-07-15 14:29:25 Letter (Out) Greg Recinos [facility] 1.2.840.114 350.1.13.10 4.2.7.2.686 [id number] [facility] 2024-07-15 10:00:00 2024-07-15 10:30:00 Office Visit Justo Ornelas Joseph Marc [facility] [place] [facility] 1.2.840.114 350.1.13.10 4.2.7.2.686 [id number] [facility] 2024-07-15 10:00:00 2024-07-15 10:00:00 Outpatient SATHISH HENDRICKS [facility] [id number] [facility] 2024-07-10 14:00:00 2024-07-10 15:06:46 Outpatient ISMAEL BAGLEY [facility] [id number] [facility] 2023-11-29 00:00:00 2024-06-07 07:10:33 Orders Only Doctor Unassigned, [place] Doctor Unassigned, [place] [facility] ([facility]) 1.2.840.114 350.1.13.10 4.2.7.2.686 [id number] [facility] 2023-11-29 00:00:00 2024-06-07 07:10:21 Orders Only Doctor Unassigned, [place] Doctor Unassigned, [place] [facility] [place] ([facility]) 1.2.840.114 350.1.13.10 4.2.7.2.686 [id number] [facility] 2023-12-20 00:00:00 2024-06-07 07:02:59 Orders Only Doctor Unassigned, [place] Doctor Unassigned, [place] [facility] [place] ([facility]) 1.2.840.114 350.1.13.10 4.2.7.2.686 [id number] [facility] 2024-06-06 00:00:00 2024-06-06 00:00:00 (HOSP F/U) Hospital Follow Up STLMLC STLMLC [id number] [facility] 2024-06-03 00:00:00 2024-06-03 16:34:29 Transition of Care Saida Miles Maria [facility] 1.20.114 350.1.13.10 4.2.7.2.686 [id number] [facility] 2024-06-03 00:00:00 2024-06-03 00:00:00 (TEL) [facility] [id number] [facility] 2024-05-30 03:03:00 2024-06-02 18:27:00 Inpatient X CRISTO CHRISTIANSEN PETER [facility] CAR[facility] [id number] [facility] 2024-05-30 03:03:00 2024-06-02 18:27:00 Hospital Encounter Prasanth Hernandez Peter [facility] ([place]) 1.2.114 350.1.13.10 4.2.7.2.686 [id number] [facility] 2024-05-29 19:02:00 2024-05-30 01:54:00 Emergency X ROSA MARIAERJOZEF , MOIRA CRUZ , MOIRA [facility] ERT [id number] [facility] 2024-05-29 19:02:00 2024-05-30 01:54:00 Emergency Michael Herrera , Moira Gonzalez [facility] 1.2.114 350.1.13.10 4.2.7.2.686 [id number] [facility] 2024-05-28 00:00:00 2024-05-28 00:00:00 (TEL) [facility] [id number] [facility] 2024-05-27 00:00:00 2024-05-27 10:26:33 Transition of Care Yvonne Lilly Donna B [place] 1.2.114 350.1.13.10 4.2.7.2.686 [id number] [facility] 2024-05-23 00:00:00 2024-05-23 00:00:00 (EST. VIDEO) [facility] [id number] [facility] 2024-05-23 00:00:00 2024-05-23 00:00:00 (TEL) STLMLC STLC [id number] [facility] 2024-05-20 00:00:00 2024-05-20 16:10:50 Telephone Dulce Maria Mccann [facility] ([place] 1.2.840.114 350.1.13.10 4.2.7.2.686 [id number] [facility] 2024-05-20 00:00:00 2024-05-20 11:59:47 Transition of Care Maria A Chau Miatha R [place] 1.2.840.114 350.1.13.10 4.2.7.2.686 [id number] [facility] 2024-05-20 00:00:00 2024-05-20 00:00:00 (TEL) [facility] [id number] [facility] 2024-05-13 18:25:00 2024-05-19 16:10:00 Inpatient X BRIGETTE BARRIOS [facility] [id number] [facility] 2024-05-13 18:25:00 2024-05-19 16:10:00 Hospital Encounter Tien Gross, Julio Cesar Mtz, [facility] ([place] 1.2.840.114 350.1.13.10 4.2.7.2.686 [id number] [facility] 2024-05-17 00:00:00 2024-05-19 13:32:56 Refill Mayur Silva [facility] MEDICAL OFFICE BUILDING 1.2.840.114 350.1.13.10 4.2.7.2.686 [id number] [facility] 2024-05-19 00:00:00 2024-05-19 00:00:00 (TEL) STLMLC STLMLC [id number] [facility] 2024-05-17 13:40:00 2024-05-17 14:41:00 Surgery Luis Pace [facility] ([place] 1.2.840.114 350.1.13.10 4.2.7.2.686 [id number] [facility] 2024-05-16 00:00:00 2024-05-16 00:00:00 (TEL) STLMLC STLMLC [id number] [facility] 2024-05-15 00:00:00 2024-05-15 00:00:00 (TEL) STLMLC STLMLC [id number] [facility] 2024-05-15 00:00:00 2024-05-15 00:00:00 (TEL) STLMLC STLMLC [id number] [facility] 2024-05-14 00:00:00 2024-05-14 08:12:55 Transition of Care Vamsi Ordonez 1.2.840.1 89721.1.1 3.104.2.7 .3.703016 .8 [id number] [facility] 2024-05-13 00:00:00 2024-05-13 00:00:00 (TEL) STLMLC STLMLC [id number] [facility] 2024-05-13 00:00:00 2024-05-13 00:00:00 Travel 1.2.840.1 25287.1.1 3.104.2.7 .3.798775 .8 1.2.840.114 350.1.13.10 4.2.7.3.698 084.8 [id number] [facility] 2024-05-06 17:42:00 2024-05-12 14:05:00 Inpatient X JONY RAM [facility] [id number] [facility] 2024-05-06 17:42:00 2024-05-12 14:05:00 Hospital Encounter Uribe Tomas Corby, Jony Howard 1.2.840.1 85992.1.1 3.104.2.7 .3.178724 .8 [id number] [facility] 2024-05-09 07:53:00 2024-05-09 10:57:00 Anesthesia Event Jony Vaughan Brian 1.2.840.1 87556.1.1 3.104.2.7 .3.929678 .8 [id number] [facility] 2024-05-09 07:10:00 2024-05-09 10:05:00 Surgery Asad Morgan 1.2.840.1 62401.1.1 3.104.2.7 .3.186068 .8 [id number] [facility] 2024-05-06 00:00:00 2024-05-06 00:00:00 Travel 1.2.840.1 15130.1.1 3.104.2.7 .3.889047 .8 1.2.840.114 350.1.13.10 4.2.7.3.698 084.8 [id number] [facility] 2024-04-10 13:00:00 2024-04-10 13:19:04 Outpatient R ISMAEL HUNTER [facility] [id number] [facility] 2024-04-10 13:00:00 2024-04-10 13:19:04 Office Visit Ismael Hunter 1.2.840.1 27947.1.1 3.104.2.7 .3.792150 .8 [id number] [facility] 2024-04-10 00:00:00 2024-04-10 00:00:00 Travel 1.2.840.1 34238.1.1 3.104.2.7 .3.954052 .8 1.2.840.114 350.1.13.10 4.2.7.3.698 084.8 [id number] [facility] 2024-03-26 00:00:00 2024-03-26 13:55:46 Refill Mayur Silva 1.2.840.1 60611.1.1 3.104.2.7 .3.140036 .8 [id number] [facility] 2024-03-21 00:00:00 2024-03-24 13:33:49 Refill Mayur Silva 1.2.840.1 55302.1.1 3.104.2.7 .3.290931 .8 [id number] [facility] 2024-03-15 00:00:00 2024-03-21 06:00:01 Refill Mayur Silva 1.2.840.1 31765.1.1 3.104.2.7 .3.345549 .8 [id number] [facility] 2024-02-18 13:51:00 2024-02-18 16:40:00 Emergency X JAKI DOWNS SANDRA [facility] ERT [id number] [facility] 2024-02-18 13:51:00 2024-02-18 16:40:00 Emergency Jaki Downs 1.2.840.1 47842.1.1 3.104.2.7 .3.432106 .8 [id number] [facility] 2024-02-15 00:00:00 2024-02-15 00:00:00 OFFICE VISIT ESTAB PT LEVEL 4 STLMLC STLMLC [id number] [facility] 2024-02-08 11:20:00 2024-02-08 11:20:00 Outpatient R [facility] [id number] [facility] 2024-01-30 15:54:00 2024-01-30 20:49:00 Emergency X MOIRA CRUZ ERIN [facility] ERT [id number] [facility] 2024-01-30 15:54:00 2024-01-30 20:49:00 Emergency Jaki Downs Erin Laura [facility] 1.84.114 350.1.13.10 4.2.7.2.686 [id number] [facility] 2024-01-22 00:00:00 2024-01-22 00:00:00 (TEL) STLMLC STLMLC [id number] [facility] 2024-01-19 00:00:00 2024-01-21 14:13:43 Refill Mayur Silva [facility] 1..114 350.1.13.10 4.2.7.2.686 [id number] [facility] 2023-12-16 00:00:00 2023-12-17 09:40:23 Refill Mayur Silva [facility] 1.0.114 350.1.13.10 4.2.7.2.686 [id number] [facility] 2023-12-13 08:15:00 2023-12-13 08:20:21 Outpatient R MARK TEJADA NAVEED [facility] [id number] [facility] 2023-12-13 08:15:00 2023-12-13 08:20:21 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 2, Adc Lab Mark Tejada 2, [facility] BUILDING 1.840.114 350.1.13.10 4.2.7.2.686 [id number] [facility] 2023-11-12 00:00:00 2023-11-19 09:20:44 Telephone Mayur Silva [facility] 1.2840.114 350.1.13.10 4.2.7.2.686 [id number] [facility] 2023-11-14 00:00:00 2023-11-14 00:00:00 OFFICE VISIT ESTAB PT LEVEL 4 STLMLC STLMLC [id number] [facility] 2023-11-12 16:30:00 2023-11-12 16:30:00 Outpatient R MAYUR SILVA [facility] [id number] [facility] 2023-11-08 00:00:00 2023-11-08 13:11:08 Telephone Mayur Silva [facility] MEDICAL OFFICE BUILDING 1..840.114 350.1.13.10 4.2.7.2.686 [id number] [facility] 2023-11-08 00:00:00 2023-11-08 11:46:03 Telephone Mayur Silva [facility] MEDICAL OFFICE BUILDING 1.2.840.114 350.1.13.10 4.2.7.2.686 [id number] [facility] 2023-11-06 09:00:00 2023-11-06 09:02:58 Outpatient R MAYUR SILVA [facility] [id number] [facility] 2023-11-06 09:00:00 2023-11-06 09:02:58 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 2, Adc Lab Mayur Silva [facility] BUILDING 1.2.840.114 350.1.13.10 4.2.7.2.686 [id number] [facility] 2023-10-22 00:00:00 2023-10-22 14:10:[address] [facility] 1..114 350.1.13.10 4.2.7.2.686 [id number] [facility] 2023-10-19 09:15:00 2023-10-19 09:30:00 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 2, Adc Lab [facility] 1..114 350.1.13.10 4.2.7.2.686 [id number] [facility] 2023-10-19 09:15:00 2023-10-19 09:15:04 Outpatient R MINH TEJADAFELICE BAUTISTAKRISHMARK [facility] [id number] [facility] 2023-10-18 09:15:00 2023-10-18 09:15:00 Outpatient R [facility] [id number] [facility] 2023-10-17 15:00:00 2023-10-17 15:00:00 Outpatient R [facility] [id number] [facility] 2023-09-10 00:00:00 2023-09-11 11:36:33 Transition of Care Vamsi Ordonez 1..114 350.1.13.10 4.2.7.2.686 [id number] [facility] 2023-09-08 05:23:00 2023-09-08 12:21:00 Outpatient X JNOY RAM [facility] [id number] [facility] 2023-09-08 05:23:00 2023-09-08 12:21:00 Hospital Encounter Tien Gross David [facility] 1..114 350.1.13.10 4.2.7.2.686 [id number] [facility] 2023-08-15 00:00:00 2023-08-15 00:00:00 OFFICE VISIT ESTAB PT LEVEL 4 STLMLC STLMLC [id number] [facility] 2023-07-17 00:00:00 2023-07-17 00:00:00 OFFICE VISIT ESTAB PT LEVEL 4 STLMLC STLMLC [id number] [facility] 2023-07-17 00:00:00 2023-07-17 00:00:00 SUB ANNUAL MCR WELLNESS VISIT STLMLC STLMLC [id number] [facility] 2023-07-16 13:00:00 2023-07-16 13:00:00 Outpatient MAYUR GERARD [facility] [id number] [facility] 2023-07-06 10:00:00 2023-07-06 10:00:00 Outpatient R [facility] [id number] [facility] 2023-06-18 00:00:00 2023-06-18 00:00:00 Telephone Mayur Silva [facility] 1.2.840.114 350.1.13.10 4.2.7.2.686 [id number] [facility] 2023-06-15 10:00:00 2023-06-15 10:00:00 Outpatient R [facility] [id number] [facility] 2023-06-08 10:00:00 2023-06-08 10:00:00 Outpatient R [facility] [id number] [facility] 2023-05-11 08:00:00 2023-05-11 08:00:00 Outpatient R [facility] [id number] [facility] 2023-05-10 00:00:00 2023-05-10 00:00:00 (TEL) [facility] [id number] [facility] 2023-05-04 10:00:00 2023-05-04 13:52:06 Outpatient R MARK TEJADA [facility] [id number] [facility] 2023-05-04 10:00:00 2023-05-04 10:15:00 Nurse Visit Nurse, Wai Pob Amb Infusion [facility] 1.2.840.114 350.1.13.10 4.2.7.2.686 [id number] [facility] 2023-05-04 00:00:00 2023-05-04 00:00:00 Orders Only Doctor Unassigned, [place] [facility] 1.2.840.114 350.1.13.10 4.2.7.2.686 [id number] [facility] 2023-05-04 00:00:00 2023-05-04 00:00:00 Telephone Mallory [facility] 1.2.840.114 350.1.13.10 4.2.7.2.686 [id number] [facility] 2023-05-03 13:00:00 2023-05-03 13:00:00 Outpatient R [facility] [id number] [facility] 2023-05-03 10:45:00 2023-05-03 11:40:36 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 2, Wai Lab [facility] 1.2.840.114 350.1.13.10 4.2.7.2.686 [id number] [facility] 2023-05-03 10:00:00 2023-05-03 10:15:00 Nurse Visit Nurse, Wai Pob Amb Infusion [facility] 1.2.840.114 350.1.13.10 4.2.7.2.686 [id number] [facility] 2023-05-03 10:00:00 2023-05-03 10:00:00 Out[facility] [id number] [facility] 2023-05-03 00:00:00 2023-05-03 00:00:00 [facility] 1.2.840.114 350.1.13.10 4.2.7.2.686 [id number] [facility] 2023-04-13 00:00:00 2023-04-13 00:00:00 Telephone Mayur Silva [facility] OFFICE BUILDING 1.2.840.114 350.1.13.10 4.2.7.2.686 [id number] [facility] 2023-04-06 14:30:00 2023-04-06 14:45:00 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 Pob, Adc Lab Main Mayur Silva [facility] BUILDING 1.2.840.114 350.1.13.10 4.2.7.2.686 [id number] [facility] 2023-04-06 14:30:00 2023-04-06 14:30:00 Outpatient R MAYUR SILVA [facility] [id number] [facility] 2023-04-02 06:28:00 2023-04-02 11:51:00 Outpatient MAYUR GERARD [facility] [id number] [facility] 2023-04-02 10:00:00 2023-04-02 11:00:00 Surgery Khanh gallego [facility] 1.2.840.114 350.1.13.10 4.2.7.2.686 [id number] [facility] 2023-04-02 00:00:00 2023-04-02 00:00:00 Andrea Harrington [facility] GELY VIVAS [facility] 1.114 350.1.13.10 4.2.7.2.686 [id number] [facility] 2023-04-02 00:00:00 2023-04-02 00:00:00 Orders Only Doctor Unassigned, [place] [facility] 1..114 350.1.13.10 4.2.7.2.686 [id number] [facility] 2023-03-29 14:30:00 2023-03-29 16:00:00 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 Testing, [facility] Pulmonary Function StandeferDilia [facility] 1.114 350.1.13.10 4.2.7.2.686 [id number] [facility] 2023-03-29 14:30:00 2023-03-29 14:30:00 Outpatient DILIA HOWELL [facility] [id number] [facility] 2023-03-29 13:00:00 2023-03-29 14:10:49 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 Testing, [facility] Pulmonary Function StandeferDilia [facility] 1.114 350.1.13.10 4.2.7.2.686 [id number] [facility] 2023-03-23 00:00:00 2023-03-23 00:00:00 Telephone Mayur Silva [facility] 1.114 350.1.13.10 4.2.7.2.686 [id number] [facility] 2023-03-19 14:30:00 2023-03-19 14:30:00 Outpatient R MAYUR SILVA [facility] [id number] [facility] 2023-03-16 00:00:00 2023-03-16 00:00:[address] [facility] 1.840.114 350.1.13.10 4.2.7.2.686 [id number] [facility] 2023-03-14 07:45:00 2023-03-14 08:00:00 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 Pob, Adc Lab Main [facility]ur [facility] 1..840.114 350.1.13.10 4.2.7.2.686 [id number] [facility] 2023-03-14 07:45:00 2023-03-14 07:45:00 Outpatient R MAYUR SILVA [facility] [id number] [facility] 2023-03-14 00:00:00 2023-03-14 00:00:00 Case Management Dilia Turner [facility] 1..840.114 350.1.13.10 4.2.7.2.686 [id number] [facility] 2023-02-27 00:00:00 2023-02-27 00:00:00 (TEL) STLMLC STLC [id number] [facility] 2023-02-14 00:00:00 2023-02-14 00:00:00 (TEL) STLMLC STLMLC [id number] [facility] 2023-02-13 00:00:00 2023-02-13 00:00:00 OFFICE VISIT ESTAB PT LEVEL 4 STLMLC STLMLC [id number] [facility] 2023-01-23 00:00:00 2023-01-23 00:00:00 (HOSP F/U) Hospital Follow Up STLMLC STLMLC [id number] [facility] 2023-01-22 16:30:00 2023-01-22 16:57:24 Outpatient R MAYUR SILVA [facility] [id number] [facility] 2023-01-22 16:30:00 2023-01-22 16:57:24 Office Visit Mayur Silva [facility] 1.114 350.1.13.10 4.2.7.2.686 [id number] [facility] 2023-01-18 00:00:00 2023-01-18 00:00:00 Transition of Care Yvonne Lilly [facility] 1..114 350.1.13.10 4.2.7.2.686 [id number] [facility] 2023-01-15 12:30:00 2023-01-17 13:20:00 Inpatient X JONY RAM [facility] [id number] [facility] 2023-01-15 12:30:00 2023-01-17 13:20:00 Hospital Encounter Tien Gross David [facility] 1.114 350.1.13.10 4.2.7.2.686 [id number] [facility] 2023-01-15 00:00:00 2023-01-15 00:00:00 (TEL) STLC STLC [id number] [facility] 2023-01-11 10:40:00 2023-01-11 11:12:49 Outpatient R ANDREA CABRERA [facility] [id number] [facility] 2023-01-11 10:40:00 2023-01-11 11:12:49 [facility] 1..114 350.1.13.10 4.2.7.2.686 [id number] [facility] 2023-01-09 15:00:00 2023-01-09 15:00:00 [facility] [id number] 2022-12-29 00:00:00 2022-12-29 00:00:00 (TEL) STLMLC STLMLC [id number] [facility] 2022-11-24 00:00:00 2022-11-24 00:00:00 [facility] 1..840.114 350.1.13.10 4.2.7.2.686 [id number] [facility] 2022-11-13 00:00:00 2022-11-13 00:00:00 OFFICE VISIT ESTAB PT LEVEL 4 STLMLC STLMLC [id number] [facility] 2022-09-01 00:00:00 2022-09-01 00:00:00 OFFICE VISIT ESTAB PT LEVEL 4 STLMLC STLMLC [id number] [facility] 2022-08-10 13:00:00 2022-08-10 13:00:00 [facility] [id number] [facility] 2022-08-03 11:00:00 2022-08-03 12:52:13 Outpatient R MARK TEJADA [facility] [id number] [facility] 2022-08-03 11:00:00 2022-08-03 11:15:00 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 Pob, Adc Lab Anjel Tejada [facility] 1..840.114 350.1.13.10 4.2.7.2.686 [id number] [facility] 2022-08-03 00:00:00 2022-08-03 00:00:00 Orders Only Doctor Unassigned, [place] [facility] 1..840.114 350.1.13.10 4.2.7.2.686 [id number] [facility] 2022-08-03 00:00:00 2022-08-03 00:00:00 Telephone Sarika Andrea [facility] 1.2.840.114 350.1.13.10 4.2.7.2.686 [id number] [facility] 2022-08-01 00:00:00 2022-08-01 00:00:00 OFFICE VISIT ESTAB PT LEVEL 4 STLMLC STLMLC [id number] [facility] 2022-07-30 00:00:00 2022-07-30 00:00:00 (TEL) STLMLC STLMLC [id number] [facility] 2022-07-11 14:01:00 2022-07-11 16:29:00 Emergency X Benjamin [facility] E[facility] [id number] [facility] 2022-07-11 14:01:00 2022-07-11 16:29:00 Emergency Benjamin [facility] 1..840.114 350.1.13.10 4.2.7.2.686 [id number] [facility] 2022-07-11 00:00:00 2022-07-11 00:00:00 (TEL) STLMLC STLMLC [id number] [facility] 2022-07-10 10:40:00 2022-07-10 10:40:00 Outpatient R SARIKA [facility] [id number] [facility] 2022-07-03 00:00:00 2022-07-03 00:00:00 Refill Sarika Andrea [facility] 1..840.114 350.1.13.10 4.2.7.2.686 [id number] [facility] 2022-07-03 00:00:00 2022-07-03 00:00:00 [facility] 1.2.840.114 350.1.13.10 4.2.7.2.686 [id number] [facility] 2022-06-14 00:00:00 2022-06-14 00:00:00 SUB ANNUAL [facility] [id number] [facility] 2022-06-14 00:00:00 2022-06-14 00:00:00 OFFICE VISIT ESTAB PT LEVEL 4 [facility] [id number] [facility] 2022-06-12 15:00:00 2022-06-12 15:19:49 [facility] [id number] [facility] [facility]-12 15:00:00 2022-06-12 15:19:49 Office Visit Sarika [facility] 1.2.840.114 350.1.13.10 4.2.7.2.686 [id number] [facility] 2022-06-08 09:00:00 2022-06-08 09:00:00 [facility] [id number] [facility] 2022-06-01 09:45:00 2022-06-01 10:00:00 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 Pob, Adc Lab Main Corby Pb [facility] 1.2.840.114 350.1.13.10 4.2.7.2.686 [id number] [facility] 2022-06-01 09:45:00 2022-06-01 09:45:00 Outpatient R [facility]BY [facility] [id number] [facility] 2022-06-01 00:00:00 2022-06-01 00:00:00 [facility] [id number] 2022-05-31 16:20:00 2022-05-31 16:20:00 Outpatient REBECCA RODRIGUEZ [facility] [id number] [facility] 2022-05-26 00:00:00 2022-05-26 00:00:00 [facility]EL[facility] [id number] [facility] 2022-05-24 00:00:00 2022-05-24 00:00:00 Transition of Care Vamsi Ordonez [facility] 1.2.840.114 350.1.13.10 4.2.7.2.686 [id number] [facility] 2022-05-19 10:08:00 2022-05-23 14:35:00 Hospital Encounter Benjamin Kimbrough Jelani [facility] 1.2.840.114 350.1.13.10 4.2.7.2.686 [id number] [facility] 2022-05-19 00:00:00 2022-05-19 00:00:00 Telephone Sarika [facility] 1.2.840.114 350.1.13.10 4.2.7.2.686 [id number] [facility] 2022-05-19 00:00:00 2022-05-19 00:00:00 [facility] 1.2.840.114 350.1.13.10 4.2.7.2.686 [id number] [facility] 2022-05-18 11:15:00 2022-05-18 11:30:00 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 2, Adc Lab Sarika [facility] 1.2.840.114 350.1.13.10 4.2.7.2.686 [id number] [facility] 2022-05-18 10:40:00 2022-05-18 11:02:28 [facility] [id number] [facility] 2022-05-18 10:40:00 2022-05-18 11:02:28 Office Visit Sarika [facility] 1.2840.114 350.1.13.10 4.2.7.2.686 [id number] [facility] 2022-05-18 10:40:00 2022-05-18 11:02:28 Outpatient R SARIKA [facility] [id number] [facility] 2022-05-10 13:00:00 2022-05-10 13:00:00 Outpatient R REBECCA DOWNS [facility] [id number] [facility] 2022-05-09 09:20:00 2022-05-09 10:11:04 Outpatient R SARIKA [facility] [id number] [facility] 2022-05-09 09:20:00 2022-05-09 10:11:04 Office Visit Sarika [facility] 1.84.114 350.1.13.10 4.2.7.2.686 [id number] [facility] 2022-05-09 00:00:00 2022-05-09 00:00:00 Orders Only Doctor Unassigned, [place] [facility] 1..114 350.1.13.10 4.2.7.2.686 [id number] [facility] 2022-05-03 00:00:00 2022-05-03 00:00:[address] [facility] 1.2840.114 350.1.13.10 4.2.7.2.686 [id number] [facility] 2022-05-03 00:00:00 2022-05-03 00:00:00 (TEL) STLMLC STLMLC [id number] [facility] 2022-05-03 00:00:00 2022-05-03 00:00:00 OFFICE VISIT ESTAB PT LEVEL 4 STLMLC STLMLC [id number] [facility] 2022-04-24 00:00:00 2022-04-24 00:00:00 Refill Andrea Cabrera [facility] 1.2.840.114 350.1.13.10 4.2.7.2.686 [id number] [facility] 2022-04-06 00:00:00 2022-04-06 00:00:00 (TEL) STLC STLMLC [id number] [facility] 2022-03-30 00:00:00 2022-03-30 00:00:00 OFFICE VISIT ESTAB PT LEVEL 4 STLC STLC [id number] [facility] 2022-03-08 00:00:00 2022-03-08 00:00:00 Orders Only Doctor Unassigned, [place] [facility] 1.2.840.114 350.1.13.10 4.2.7.2.686 [id number] [facility] 2022-03-01 00:00:00 2022-03-01 00:00:00 Telephone Brenda Dodd [facility] 1.2.840.114 350.1.13.10 4.2.7.2.686 [id number] [facility] 2022-02-16 15:20:00 2022-02-16 15:20:00 Outpatient ANDREA TURNER [facility] [id number] [facility] 2022-01-26 00:00:00 2022-01-26 00:00:00 (TEL) STLC STLC [id number] [facility] 2022-01-18 00:00:00 2022-01-18 00:00:00 Orders Only Doctor Unassigned, [place] 1.2.840.114 350.1.13.10 4.2.7.2.686 [id number] [facility] 2022-01-17 15:40:00 2022-01-17 15:40:00 Outpatient Jacinta CABRERA [facility] [id number] [facility] 2022-01-10 00:00:00 2022-01-10 00:00:00 ([facility]EL[facility] [id number] [facility] 2022-01-04 15:20:00 2022-01-04 15:20:00 Outpatient Jacinta CABRERA [facility] [id number] [facility] 2022-01-04 00:00:00 2022-01-04 00:00:00 Orders Only Doctor Unassigned, [place] 1.2840.114 350.1.13.10 4.2.7.2.686 [id number] [facility] 2021-11-29 09:20:00 2021-11-29 09:20:00 [facility] [id number] [facility] 2021-11-28 09:00:00 2021-11-28 09:00:00 Outpatient Jacinta CABRERA [facility] [id number] [facility] 2021-11-16 00:00:00 2021-11-16 00:00:00 OFFICE VISIT ESTAB PT LEVEL 4 [facility] [id number] [facility] 2021-11-11 00:00:00 2021-11-11 00:00:00 Orders Only Doctor Unassigned, [place] [facility] 1.2.840.114 350.1.13.10 4.2.7.2.686 [id number] [id number] [facility] 2021-10-03 00:00:00 2021-10-03 23:59:00 Outpatient R NNAMDI POLANCO [facility] [id number] [facility] 2021-10-03 00:00:00 2021-10-03 23:59:00 Hospital Encounter Nnamdi Polanco [facility] 1.2.840.114 350.1.13.10 4.2.7.2.686 [id number] [facility] 2021-09-06 00:00:00 2021-09-06 00:00:00 (TEL) STLMLC STLMLC [id number] [facility] 2021-08-29 00:00:00 2021-08-29 00:00:00 (TEL) STLMLC STLMLC [id number] [facility] 2021-08-22 15:00:00 2021-08-22 15:00:00 Outpatient R ANDREA CABRERA [facility] [id number] [facility] 2021-08-17 00:00:00 2021-08-17 00:00:00 OFFICE VISIT ESTAB PT LEVEL 4 STLMLC STLMLC [id number] [facility] 2021-07-19 00:00:00 2021-07-19 00:00:00 Orders Only Doctor Unassigned, [place] [facility] 1.2.840.114 350.1.13.10 4.2.7.2.686 [id number] [id number] [facility] 2021-07-18 00:00:00 2021-07-18 00:00:00 OFFICE VISIT ESTAB PT LEVEL 4 STLMLC STLMLC [id number] [facility] 2021-07-11 00:00:00 2021-07-11 00:00:00 (TEL) STLMLC STLMLC [id number] [facility] 2021-06-30 00:00:00 2021-06-30 00:00:00 (TEL) [facility] [id number] [facility] 2021-06-09 00:00:00 2021-06-09 00:00:00 Outpatient Jacinta ANDREA CABRERA [facility] [id number] [facility] 2021-06-09 00:00:00 2021-06-09 00:00:00 [facility]patient [facility] [id number] [facility] 2021-06-01 10:20:00 2021-06-01 10:40:00 Office Visit Brenda Dodd [facility] 1.2.840.114 350.1.13.10 4.2.7.2.686 [id number] [facility] 2021-06-01 10:20:00 2021-06-01 10:20:00 Outpatient R BRENDA DODD STRAHIL [facility] [id number] [facility] 2021-06-01 00:00:00 2021-06-01 00:00:00 Orders Only Doctor Unassigned, [place] [facility] 1.2.840.114 350.1.13.10 4.2.7.2.686 [id number] [id number] [facility] 2021-05-25 00:00:00 2021-05-25 00:00:00 (TEL) [facility] [id number] [facility] 2021-05-20 00:00:00 2021-05-20 00:00:00 Telephone Oriana Albrecht [facility] 1.2.840.114 350.1.13.10 4.2.7.2.686 [id number] [facility] 2021-05-10 19:30:00 2021-05-10 22:00:00 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 1, [facility] Bed Brenda Dodd [facility] 1.84114 350.1.13.10 4.2.7.2.686 [id number] [facility] 2021-05-10 19:30:00 2021-05-10 19:30:00 Outpatient R BRENDA DODD STRAINSole [facility] [id number] [facility] 2021-05-10 19:30:00 2021-05-10 19:30:00 [facility] [id number] [facility] 2021-05-10 00:00:00 2021-05-10 00:00:00 [facility]ISIT [facility] [id number] [facility] 2021-05-10 00:00:00 2021-05-10 00:00:00 (TEL) [facility] [id number] [facility] 2021-05-10 00:00:00 2021-05-10 00:00:00 SUB ANNUAL [facility] [id number] [facility] 2021-05-07 09:30:00 2021-05-07 09:45:00 Laboratory Only Only, Adc Test Prasanth Meyers [facility] 1.84.114 350.1.13.10 4.2.7.2.686 [id number] [facility] 2021-05-07 09:30:00 2021-05-07 09:30:00 Outpatient Jacinta PRASANTH MEYERS [facility] [id number] [facility] 2021-05-07 00:00:00 2021-05-07 00:00:00 Orders Only Doctor Unassigned, [place] [facility] 1.840.114 350.1.13.10 4.2.7.2.686 [id number] [facility] 2021-05-06 09:00:00 2021-05-06 09:00:00 Outpatient R [facility] [id number] [facility] 2021-04-02 00:00:00 2021-04-02 00:00:00 Orders Only Doctor Unassigned, [place] [facility] 1.2.840.114 350.1.13.10 4.2.7.2.686 [id number] [id number] [facility] 2021-03-30 10:32:58 2021-03-30 10:48:14 Office Visit Brenda Dodd [facility] 1.84.114 350.1.13.10 4.2.7.2.686 [id number] [facility] 2021-03-30 10:40:00 2021-03-30 10:40:00 Outpatient R BRENDA DODD STRAHIL [facility] [id number] [facility] 2021-03-22 12:51:51 2021-03-22 13:06:51 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 Tech, [facility] Brenda Dodd [facility] 1.2840.114 350.1.13.10 4.2.7.2.686 [id number] [facility] 2021-03-22 13:00:00 2021-03-22 13:00:00 Outpatient R BRENDA DODD STRAHIL [facility] [id number] [facility] 2021-03-21 08:15:40 2021-03-21 08:30:40 Laboratory Only Only, Adc Test Brenda Dodd [facility] 1.2.840.114 350.1.13.10 4.2.7.2.686 [id number] [facility] 2021-03-21 08:30:00 2021-03-21 08:30:00 Outpatient R BRENDA DODD STRAHIL [facility] [id number] [facility] 2021-03-21 00:00:00 2021-03-21 00:00:00 Orders Only Doctor Unassigned, [place] [facility] 1.2.840.114 350.1.13.10 4.2.7.2.686 [id number] [id number] [facility] 2021-03-14 00:00:00 2021-03-14 00:00:00 Transition of Care Yvonne Lilly 1.2.840.114 350.1.13.10 4.2.7.2.686 [id number] [facility] 2021-03-14 00:00:00 2021-03-14 00:00:00 [facility] 1.2.840.114 350.1.13.10 4.2.7.2.686 [id number] [facility] 2021-03-09 05:49:00 2021-03-11 12:45:00 Hospital Encounter Tien Gross Yaman [facility] 1.2.840.114 350.1.13.10 4.2.7.2.686 [id number] [facility] 2021-03-11 00:00:00 2021-03-11 00:00:00 Telephone Nir Verdugo [facility] 1.2.840.114 350.1.13.10 4.2.7.2.686 [id number] [facility] 2021-03-07 09:00:00 2021-03-07 23:59:00 Outpatient ANDREA TURNER [facility] [id number] [facility] 2021-03-07 09:00:00 2021-03-07 23:59:00 [facility] [id number] [facility] 2021-03-07 08:59:21 2021-03-07 23:59:00 [facility] 1.2.840.114 350.1.13.10 4.2.7.2.686 [id number] [facility] 2021-03-07 09:00:00 2021-03-07 09:00:00 [facility] [id number] 2021-03-01 09:00:00 2021-03-01 09:30:40 Outpatient R SARIKA, [facility] [id number] [facility] 2021-03-01 09:00:00 2021-03-01 09:30:40 Outpatient R SARIKA, [facility] [id number] [facility] 2021-03-01 09:00:00 2021-03-01 09:30:40 Outpatient R SARIKA [facility] [id number] [facility] 2021-03-01 09:00:00 2021-03-01 09:30:40 Office Visit Sarika [facility] 1.2.840.114 350.1.13.10 4.2.7.2.686 [id number] [facility] 2021-03-01 09:00:00 2021-03-01 09:30:40 Office Visit Sarika [facility] 1.2.840.114 350.1.13.10 4.2.7.2.686 [id number] [facility] 2021-03-01 09:00:00 2021-03-01 09:30:40 Outpatient R SARIKA [facility] [id number] [facility] 2021-03-01 08:55:17 2021-03-01 09:30:40 Office Visit Andrea Cabrera [facility] 1.2840.114 350.1.13.10 4.2.7.2.686 [id number] [facility] 2021-03-01 00:00:00 2021-03-01 00:00:00 Orders Only Doctor Unassigned, [place] [facility] 1.2.840.114 350.1.13.10 4.2.7.2.686 [id number] [facility] 2020-10-25 00:00:00 2020-10-25 23:59:00 Hospital Encounter Kathy Nnamdi [facility] 1.840.114 350.1.13.10 4.2.7.2.686 [id number] [facility] 2020-10-25 00:00:00 2020-10-25 00:00:00 Outpatient NNAMDI POLANCO [facility] [id number] [facility] 2020-07-26 00:00:00 2020-07-26 00:00:00 Outpatient NNAMDI POLANCO [facility] [id number] [facility] 2020-04-26 10:15:00 2020-04-26 23:59:00 Hospital Encounter Lawrence Laguna, Remote Device Check At Home - [facility] 1.20.114 350.1.13.10 4.2.7.2.686 [id number] [facility] 2020-04-26 10:15:00 2020-04-26 23:59:00 Hospital Encounter Lawrence Laguna [facility] 1.2840.114 350.1.13.10 4.2.7.2.686 [id number] 2020-04-26 10:15:00 2020-04-26 10:15:00 Outpatient R LAWRENCE LAGUNA [facility] [id number] [facility] 2020-01-19 11:45:00 2020-01-19 23:59:00 Hospital Encounter Nnamdi Polanco, Remote Device Check At Home - [facility] 1.2840.114 350.1.13.10 4.2.7.2.686 [id number] [facility] 2020-01-19 11:45:00 2020-01-19 23:59:00 Hospital Encounter Nnamdi Polanco [facility] 1.2840.114 350.1.13.10 4.2.7.2.686 [id number] 2020-01-19 11:45:00 2020-01-19 11:45:00 Outpatient R NNAMDI POLANCO [facility] [id number] [facility] 2020-01-13 00:00:00 2020-01-13 00:00:00 Telephone Oriana Albrecht [facility] 1.0.114 350.1.13.10 4.2.7.2.686 [id number] [facility] 2020-01-13 00:00:00 2020-01-13 00:00:00 Telephone Oriana Albrecht [facility] 1.2840.114 350.1.13.10 4.2.7.2.686 [id number] 2020-01-09 00:00:00 2020-01-09 00:00:00 Telephone Oriana Albrecht [facility] 1.2840.114 350.1.13.10 4.2.7.2.686 [id number] [facility] 2020-01-09 00:00:00 2020-01-09 00:00:00 Orders Only Doctor Unassigned, [place] [facility] 1.2840.114 350.1.13.10 4.2.7.2.686 [id number] [id number] [facility] 2020-01-09 00:00:00 2020-01-09 00:00:00 Telephone Oriana Albrecht [facility] 1.2.840.114 350.1.13.10 4.2.7.2.686 [id number] 2020-01-09 00:00:00 2020-01-09 00:00:00 Orders Only Doctor Unassigned, [place] [facility] 1.2.840.114 350.1.13.10 4.2.7.2.686 [id number] 2019-11-18 00:00:00 2019-11-18 00:00:00 Refill Pricila Albrechtzabereanna Hinson [facility] 1.2840.114 350.1.13.10 4.2.7.2.686 [id number] [facility] 2019-11-18 00:00:00 2019-11-18 00:00:00 Refill Oriana Albrecht [facility] 1.2.840.114 350.1.13.10 4.2.7.2.686 [id number] 2019-10-21 13:30:00 2019-10-21 13:30:00 Outpatient R [facility] [id number] [facility] 2019-06-30 00:00:00 2019-06-30 00:00:00 Orders Only Doctor Unassigned, [place] [facility] 1.2.840.114 350.1.13.10 4.2.7.2.686 [id number] [id number] [facility] 2019-06-30 00:00:00 2019-06-30 00:00:00 Orders Only Doctor Unassigned, [place] [facility] 1.2.840.114 350.1.13.10 4.2.7.2.686 [id number] [id number] 2019 00:00:00 2019 00:00:00 Telephone Oriana Albrecht [facility] 1.2.840.114 350.1.13.10 4.2.7.2.686 [id number] 2019 00:00:00 2019 00:00:00 Telephone Oriana Albrecht [facility] 1.2.840.114 350.1.13.10 4.2.7.2.686 [id number] [facility] 2019-06-12 00:00:00 2019-06-12 00:00:00 Telephone Oriana Albrecht [facility] 1.2.840.114 350.1.13.10 4.2.7.2.686 [id number] [facility] 2019-06-11 00:00:00 2019-06-11 00:00:00 Orders Only Doctor Unassigned, [place] [facility] 1.2.840.114 350.1.13.10 4.2.7.2.686 [id number] 2019-06-11 00:00:00 2019-06-11 00:00:00 Orders Only Doctor Unassigned, [place] [facility] 1.2.840.114 350.1.13.10 4.2.7.2.686 [id number] [id number] [facility] 2019-06-04 00:00:00 2019-06-04 00:00:00 Refill Albrecht Oriana Sravan [facility] 1.2.840.114 350.1.13.10 4.2.7.2.686 [id number] [facility] 2019-05-26 00:00:00 2019-05-26 00:00:00 Refill Oriana Albrecht [facility] 1.2.840.114 350.1.13.10 4.2.7.2.686 [id number] [facility] 2019-05-22 00:00:00 2019-05-22 00:00:00 Orders Only Doctor Unassigned, [place] [facility] 1.2.840.114 350.1.13.10 4.2.7.2.686 [id number] [facility] 2019-05-22 00:00:00 2019-05-22 00:00:00 Refill Rachel Cabrerayessylarisa [facility] 1.2.840.114 350.1.13.10 4.2.7.2.686 [id number] [facility] 2019-05-22 00:00:00 2019-05-22 00:00:00 Refill Oriana Albrecht [facility] 1.2.840.114 350.1.13.10 4.2.7.2.686 [id number] [facility] 2019-05-19 00:00:00 2019-05-19 00:00:00 Refill Rachel Cabrerayessylarisa [facility] 1.2.840.114 350.1.13.10 4.2.7.2.686 [id number] [facility] 2019-04-25 14:24:35 2019-05-15 23:34:51 Nurse Visit Visit, Adc Nurse Lucia Craft [facility] 1.2.840.114 350.1.13.10 4.2.7.2.686 [id number] [facility] 2019-05-09 00:00:00 2019-05-09 00:00:00 Telephone Oriana Albrecht [facility] 1.2.840.114 350.1.13.10 4.2.7.2.686 [id number] [facility] 2019-04-25 00:00:00 2019-04-25 00:00:00 Orders Only Doctor Unassigned, [place] [facility] 1.2.840.114 350.1.13.10 4.2.7.2.686 [id number] [id number] [facility] 2019-01-27 00:00:00 2019-01-27 00:00:00 Orders Only Doctor Unassigned, [place] [facility] 1.2840.114 350.1.13.10 4.2.7.2.686 [id number] [id number] [facility] 2019-01-16 11:09:00 2019-01-16 11:09:00 Outpatient E [facility] CAR [id number] 2019-01-09 08:39:06 2019-01-09 09:49:30 Laboratory Only Tech, Adc Cardio Fac 1, Adc Cardio Fac Room Lucia Craft [facility] 1.2.840.114 350.1.13.10 4.2.7.2.686 [id number] [id number] [facility] 2019-01-07 00:00:00 2019-01-07 00:00:00 Telephone Oriana Albrecht [facility] 1.2.840.114 350.1.13.10 4.2.7.2.686 [id number] [id number] [facility] 2018-12-20 10:17:50 2018-12-24 14:25:36 Nurse Visit Visit, Adc Nurse Andrea Cabrera [facility] 1.2.840.114 350.1.13.10 4.2.7.2.686 [id number] [id number] [facility] 2018-12-04 00:00:00 2018-12-04 00:00:00 Telephone Andrea Cabrera [facility] 1.2.840.114 350.1.13.10 4.2.7.2.686 [id number] [id number] [facility] 2018-11-16 00:00:00 2018-11-16 00:00:00 Orders Only Doctor Unassigned, [place] [facility] 1.2.840.114 350.1.13.10 4.2.7.2.686 [id number] [facility] 2018-11-08 00:00:00 2018-11-08 00:00:00 Telephone Andrea Cabrera [facility] 1.2.840.114 350.1.13.10 4.2.7.2.686 [id number] [id number] [facility] Results Test Description Test Time Test Comments Results Result Co mments Source [facility] GLUCOSE (AUTOMATED)2024-06-02 11:04:23* Test Item Value Reference Range Interpretation Comme nts POCT GLU (test code = 8268283227) 125 mg/dL 70-110 H Lab Interpretation (test cod e = 17023-2) Abnormal [facility] GLUCOSE (AUTOMATED)2024-06-02 06:39:49* Test Item Value Reference Range Interpretation Comme nts POCT GLU (test code = 3597193417) 82 mg/dL 70-110 Lab Interpretation (test cod e = 98983-6) Normal [facility] GLUCOSE (AUTOMATED)2024-06-02 02:38:48* Test Item Value Reference Range Interpretation Comme nts POCT GLU (test code = 5585236420) 172 mg/dL 70-110 H Lab Interpretation (test cod e = 33270-5) Abnormal [facility] GLUCOSE (AUTOMATED)2024-06-01 22:24:19* Test Item Value Reference Range Interpretation Comme nts POCT GLU (test code = 4771369809) 172 mg/dL 70-110 H Lab Interpretation (test cod e = 10365-7) Abnormal [facility] GLUCOSE (AUTOMATED)2024-06-01 18:34:16* Test Item Value Reference Range Interpretation Comme nts POCT GLU (test code = 1265185004) 186 mg/dL 70-110 H Lab Interpretation (test cod e = 72912-5) Abnormal [facility] GLUCOSE (AUTOMATED)2024-06-01 14:56:42* Test Item Value Reference Range Interpretation Comme nts POCT GLU (test code = 2867251494) 181 mg/dL 70-110 H Lab Interpretation (test cod e = 67491-2) Abnormal [facility] GLUCOSE (AUTOMATED)2024-06-01 10:25:42* Test Item Value Reference Range Interpretation Comme nts POCT GLU (test code = 9969430070) 106 mg/dL 70-110 Lab Interpretation (test cod e = 92863-0) Normal [facility] GLUCOSE (AUTOMATED)2024-06-01 06:32:11* Test Item Value Reference Range Interpretation Comme nts POCT GLU (test code = 9349445993) 180 mg/dL 70-110 H Lab Interpretation (test cod e = 72106-3) Abnormal [facility] GLUCOSE (AUTOMATED)2024-06-01 01:18:12* Test Item Value Reference Range Interpretation Comme nts POCT GLU (test code = 2460089367) 199 mg/dL 70-110 H Lab Interpretation (test cod e = 48570-0) Abnormal [facility] GLUCOSE (AUTOMATED)2024-05-31 21:44:43* Test Item Value Reference Range Interpretation Comme nts POCT GLU (test code = 7301943394) 184 mg/dL 70-110 H Lab Interpretation (test cod e = 85200-8) Abnormal [facility] GLUCOSE (AUTOMATED)2024-05-31 17:44:12* Test Item Value Reference Range Interpretation Comme nts POCT GLU (test code = 0093560282) 149 mg/dL 70-110 H Lab Interpretation (test cod e = 47710-9) [facility]esium2025-02-08 12:17:56* Test Item Value Reference Range Interpretation Comme nts MAGNESIUM (test code = 4104059976) 1.4 mg/dL 1.7-2.4 L Lab Interpretation (test cod e = 33941-9) [facility]normal [facility]Phosphorus2025-02-08 12:17:56* Test Item Value Reference Range Interpretation Comme nts PHOSPHORUS (test code = 0251465235) 3.0 mg/dL 2.5-5.0 Lab Interpretation (test cod e = 76664-9) Normal [facility] GLUCOSE (AUTOMATED)2024-05-31 09:39:09* Test Item Value Reference Range Interpretation Comme nts POCT GLU (test code = 7351414860) 137 mg/dL 70-110 H Lab Interpretation (test cod e = 74788-6) Abnormal [facility] GLUCOSE (AUTOMATED)2024-05-31 07:58:05* Test Item Value Reference Range Interpretation Comme nts POCT GLU (test code = 0126460855) 133 mg/dL 70-110 H Lab Interpretation (test cod e = 79935-2) [facility]normal [facility] CampusAbdominal 1 View - To confirm nasogastric tube placement.2024-05-31 02:34:58EXAM: XR ABDOMEN 1 VW HISTORY: 63 years-old Male; Provided indication: Confirm NGT placement . TECHNIQUE: Frontal view of the abdomen and pelvis COMPAR[facility] krksjlql9888-92-47 01:59:13CT ABDOMEN PELVIS WO CONTRAST Indication: PO [...] Hounsfield units 30. Skeleton: No acute osseous pathology.[facility] CampusP[facility] GLUCOSE (AUTOMATED)2024-05-30 23:55:36* Test Item Value Reference Range Interpretation Comme nts POCT GLU (test code = 3246459731) 226 mg/dL 70-110 H Lab Interpretation (test cod e = 25114-5) [facility]normal [facility] CampusPhosphorus2025-02-07 18:49:31* Test Item Value Reference Range Interpretation Comme nts PHOSPHORUS (test code = 2788187728) 4.0 mg/dL 2.5-5.0 Lab Interpretation (test cod e = 50441-6) Normal [facility] CampusMagnesium2025-02-07 18:49:31* Test Item Value Reference Range Interpretation Comme nts MAGNESIUM (test code = 8391836171) 2.3 mg/dL 1.7-2.4 Lab Interpretation (test cod e = 16734-8) Normal [facility] CampusBasi Metabolic Panel (NA, K, CL, CO2, GLUCOSE, BUN, CREATININE, CA)2024-05-30 18:49:31* Test Item Value Reference Range Interpretation Comme nts NA (test code = 4466564011) 135 mmol/L 135-145 K (test code = 3815449603) 3.7 mmol/L 3.5-5.0 CL (test code = 9401125679) 105 mmol/L 98-108 CO2 TOTAL (test code = 8779982027) 23 mmol/L 23-31 AGAP (test code = 0408292956) 7 2-16 BUN (test code = 2212053354) 41 mg/dL 7-23 H GLUCOSE (test code = 9363388311) 199 mg/dL 70-110 H CREATININE (test code = 2160-0) 3.24 mg/dL 0.60-1.25 H CALCIUM (test code = 2437047542) 7.7 mg/dL 8.6-10.6 L eGFR (test code = 62301-8) 20.8 mL/min/1.73m2 CKD-EPI eGFR (2020). Assuming creatinine has been stable day-to-day for at least three months, the eGFR indicates Category G4 (15 - 29 mL/min/1.73 m2) Lab Interpretation (test code = 41422-7) Abnormal [facility] without Rlfg0914-52-20 18:09:42* Test Item Value Reference Range Interpretation [...] 777-3) 226 150-328 MPV (test code = 56172-6) 10.7 fL 9.8-13.0 RDW-CV (test code = 788-0) 17.9 % 12.1-15.4 H RDW-SD (test code = 42425-4) 52.0 fL 38.5-51.6 H NRBC x10^3 (test code = 8832921570) See_Comment [Automated messa ge] The system which generated this result transmitted reference range: 10*3/?L. The reference range was not used to interpret this result as normal/abnormal. NRBC/100 WBC (test code = 2003356957) 0.0 0.0-10.0 IPF % (test code = 0297871480) Lab Interpretation (test code = 44862-9) Abnormal [facility] GLUCOSE (AUTOMATED)2024-05-30 18:02:36* Test Item Value Reference Range Interpretation Comme nts POCT GLU (test code = 4319357987) 220 mg/dL 70-110 H Lab Interpretation (test cod e = 64746-6) Abnormal [facility] Glucose (Age >30 Days)2024-05-30 18:00:00 * Test Item Value Reference Range Interpretation Comme nts POCT Glu (age>30days) (test code = 3342) 220 mg/dL 70-110 A Lab Interpretation (test cod e = 37544-6) Abnormal [facility] GLUCOSE (AUTOMATED)2024-05-30 13:50:10* Test Item Value Reference Range Interpretation Comme nts POCT GLU (test code = 2140662454) 224 mg/dL 70-110 H Lab Interpretation (test cod e = 22461-0) Abnormal [facility] Glucose (Age >30 Days)2024-05-30 13:49:00 * Test Item Value Reference Range Interpretation Comme nts POCT Glu (age>30days) (test code = 3342) 224 mg/dL 70-110 A Lab Interpretation (test cod e = 40876-6) Abnormal [facility] CampusTroponin [id number] 10:39:53* Test Item Value Reference Range Interpretation Comme nts TROPONIN I (test code = 0868218032) 0.048 ng/mL <=0.034 H KELLE (test code [...] of biotin. Lab Interpretation (test code = 35452-2) Abnormal [facility] CampusFibrinogen2025-02-07 10:34:14* Test Item Value Reference Range Interpretation Comme [facility] Fibrinogen (test code = 6096749626) 396 mg/dL 167-453 Lab Interpretation (test cod e = 66038-4) Normal [facility] CampusActivated Partial Thrmplas Npc1085-44-17 10:34:14* Test Item Value Reference Range Interpretation Comme [facility] APTT Patient (test code = 3173-2) 46 26-36 H Lab Interpretation (test cod e = 12726-3) Abnormal [facility] CampusProthrombin Time / [id number] 10:34:14* Test Item Value Reference Range Interpretation Comme [facility] PROTIME PATIENT (test code = 5964-2) 15.3 10.1-12.6 H INR (test code = 6301-6) 1.4 Normal INR <1.1; Warfarin Therapeutic range 2.0 to 3.0 or 2.5 to 3.5, depending upon the indications. Lab Interpretation (test code = 32635-6) Abnormal [facility] CampusBasic Metabolic Panel (NA, K, CL, CO2, GLUCOSE, BUN, CREATININE, CA)2024-05-30 10:28:50* Test Item Value Reference Range Interpretation Comme [facility] NA (test code = 4502912286) 133 mmol/L 135-145 L K (test code = 8124478230) 3.3 mmol/L 3.5-5.0 L CL (test code = 6217368797) 102 mmol/L 98-108 CO2 TOTAL (test code = 1782462895) 23 mmol/L 23-31 AGAP (test code = 7234068946) 8 2-16 BUN (test code = 6704658098) 38 mg/dL 7-23 H GLUCOSE (test code = 8786983482) 217 mg/dL 70-110 H CREATININE (test code = 2160-0) 3.05 mg/dL 0.60-1.25 H CALCIUM (test code = 4179746674) 7.7 mg/dL 8.6-10.6 L eGFR (test code = 78848-5) 22.3 mL/min/1.73m2 CKD-EPI eGFR (2020). Assuming creatinine has been stable day-to-day for at least three months, the eGFR indicates Category G4 (15 - 29 mL/min/1.73 m2) Lab Interpretation (test code = 77689-4) Abnormal [facility] CampusMagnesium2025-02-07 10:28:50* Test Item Value Reference Range Interpretation Comme nts MAGNESIUM (test code = 0973118679) 1.6 mg/dL 1.7-2.4 L Lab Interpretation (test cod e = 90282-1) Abnormal [facility] CampusPhosphorus2025-02-07 10:28:50* Test Item Value Reference Range Interpretation Comme nts PHOSPHORUS (test code = 8232068990) 3.8 mg/dL 2.5-5.0 Lab Interpretation (test cod e = 45871-3) Normal [facility] CampusCb with Ksbo5196-95-95 10:22:31* Test Item Value Reference Range Interpretation [...] 33.9 g/dL 31.2-35.0 RDW-SD (test code = 92117-4) 50.4 fL 38.5-51.6 RDW-CV (test code = 788-0) 16.7 % 12.1-15.4 H PLT (test code = 777-3) 200 150-328 MPV (test code = 40727-2) 11.0 fL 9.8-13.0 NRBC/100 WBC (test code = 7551760743) 0.2 0.0-10.0 NRBC x10^3 (test code = 4152542749) 0.02 See_Comment [Automated messa ge] The system which generated this result transmitted reference range: 10*3/?L. The reference range was not used to interpret this result as normal/abnormal. GRAN MAT (NEUT) % (test code = 770-8) 86.7 % IMM GRAN % (test code = 4903556196) 0.60 % LYMPH % (test code = 736-9) 3.0 % MONO % (test code = 5905-5) 9.4 % EOS % (test code = 713-8) 0.2 % BASO % (test code = 706-2) 0.1 % GRAN MAT x10^3(ANC) (test code = 6314415670) 8.54 10*3/uL 1.99-6.95 H IMM GRAN x10^3 (test code = 9543298733) 0.06 10*3/uL 0.00-0.06 LYMPH x10^3 (test code = 731-0) 0.30 10*3/uL 1.09-3.23 L MONO x10^3 (test code = 742-7) 0.93 10*3/uL 0.36-1.02 EOS x10^3 (test code = 711-2) 0.06-0.53 L BASO x10^3 (test code = 704-7) 0.01-0.09 Lab Interpretation (test code = 03868-1) Abnormal [facility] CampusLactic Acid Whole Xnjpb2819-43-11 07:29:06* Test Item Value Reference Range Interpretation Comme nts LACTIC ACID (test code = 9208924439) 1.68 mmol/L 0.50-2.20 Lab Interpretation (test cod e = 97309-7) Normal [facility] CampusPrepare Packed RBC (in units), 2 Units 2024-05-30 07:13:01* Test Item Value Reference Range Interpretation Comme nts Cross Match Result (test code = 4409) Compatible ISBT Blood Type Code (test code = 702464) 5100 Unit Blood Type (test code = 4410) O Pos Unit Number (test code = 4411) [id number] Blood Expiration Date & Time (test code = 932614) [id number] Status Information (test code = 4412) Issued Product Identification (test code = 4413) Red Blood Cells Product Code (test code = 4414) [id number] Performed at [facility] B Laboratory Services - [facility] [address] [place] [id number] Free: [phone] No. [id number] [facility] Angiogram abdomen/exlgby6498-36-17 06:32:00 Ordering physician: MICHAEL HERRERA Indication: Lower [...] the abdomen andpelvis demonstrate no osseous destructive lesion.[facility] CampusType and Screen - ONCE Icnotax2178-48-86 03:26:00* Test Item Value Reference Range Interpretation Comme nts ABO & RH (test code = 20) O POSITIVE IAT (test code = 1185) Negative [facility] CampusPOCO GLUCOSE (AUTOMATED)2024-05-19 19:53:58* Test Item Value Reference Range Interpretation Comme nts POCT GLU (test code = 0126581249) 133 mg/dL 70-110 H Lab Interpretation (test cod e = 93170-3) Abnormal [facility] GLUCOSE (AUTOMATED)2024-05-19 14:11:28* Test Item Value Reference Range Interpretation Comme nts POCT GLU (test code = 6850724599) 181 mg/dL 70-110 H Lab Interpretation (test cod e = 32676-9) Abnormal [facility] GLUCOSE (AUTOMATED)2024-05-19 14:11:28* Test Item Value Reference Range Interpretation Comme nts POCT GLU (test code = 5007521817) 181 mg/dL 70-110 H Lab Interpretation (test cod e = 15919-8) Abnormal [facility] GLUCOSE (AUTOMATED)2024-05-19 03:29:53* Test Item Value Reference Range Interpretation Comme nts POCT GLU (test code = 3029197183) 230 mg/dL 70-110 H Lab Interpretation (test cod e = 72292-8) Abnormal [facility] GLUCOSE (AUTOMATED)2024-05-19 03:29:53* Test Item Value Reference Range Interpretation Comme nts POCT GLU (test code = 5061566533) 230 mg/dL 70-110 H Lab Interpretation (test cod e = 66937-9) Abnormal [facility] GLUCOSE (AUTOMATED)2024-05-18 22:08:55* Test Item Value Reference Range Interpretation Comme nts POCT GLU (test code = 1833932286) 247 mg/dL 70-110 H Lab Interpretation (test cod e = 80157-7) Abnormal [facility] GLUCOSE (AUTOMATED)2024-05-18 22:08:55* Test Item Value Reference Range Interpretation Comme nts POCT GLU (test code = 9543744609) 247 mg/dL 70-110 H Lab Interpretation (test cod e = 04665-4) Abnormal [facility] GLUCOSE (AUTOMATED)2024-05-18 17:54:26* Test Item Value Reference Range Interpretation Comme nts POCT GLU (test code = 2390488613) 192 mg/dL 70-110 H Lab Interpretation (test cod e = 69857-6) [facility] 17:54:26* Test Item Value Reference Range Interpretation Comme nts POCT GLU (test code = 0322804915) 192 mg/dL 70-110 H Lab Interpretation (test cod e = 74857-3) [facility]2024-05-18 14:05:28* Test Item Value Reference Range Interpretation Comme nts POCT GLU (test code = 5870755265) 168 mg/dL 70-110 H Lab Interpretation (test cod e = 14966-5) [facility]normal [facility]PO[facility] GLUCOSE (AUTOMATED)2024-05-18 14:05:28* Test Item Value Reference Range Interpretation Comme nts POCT GLU (test code = 0275166271) 168 mg/dL 70-110 H Lab Interpretation (test cod e = 42507-3) Abnormal [facility] CampusPOCT [facility]UCOSE (AUTOMATED)2024-05-18 02:18:50* Test Item Value Reference Range Interpretation Comme nts POCT GLU (test code = 4524154829) 237 mg/dL 70-110 H Lab Interpretation (test cod e = 81901-5) Abnormal [facility] CampusPO[facility]UCOSE (AUTOMATED)2024-05-18 02:18:50* Test Item Value Reference Range Interpretation Comme nts POCT GLU (test code = 7861994837) 237 mg/dL 70-110 H Lab Interpretation (test cod e = 56808-9) Abnormal [facility] CampusType and Screen - ONCE [id number] 22:16:00 * Test Item Value Reference Range Interpretation Comme nts ABO & RH (test code = 20) O POSITIVE IAT (test code = 1185) Negative [facility] CampusType and Screen - ONCE [id number] 22:16:00 * Test Item Value Reference Range Interpretation Comme nts ABO & RH (test code = 20) O POSITIVE IAT (test code = 1185) Negative [facility] CampusP[facility] GLUCOSE (AUTOMATED)2024-05-17 22:13:49* Test Item Value Reference Range Interpretation Comme nts POCT GLU (test code = 8264959563) 165 mg/dL 70-110 H Lab Interpretation (test cod e = 72537-1) Abnormal [facility] CampusPO[facility]SE (AUTOMATED)2024-05-17 22:13:49* Test Item Value Reference Range Interpretation Comme nts POCT GLU (test code = 2740314248) 165 mg/dL 70-110 H Lab Interpretation (test cod e = 92023-0) Abnormal [facility] GLUCOSE (AUTOMATED)2024-05-17 20:02:53* Test Item Value Reference Range Interpretation Comme nts POCT GLU (test code = 3559013772) 146 mg/dL 70-110 H Lab Interpretation (test cod e = 07469-9) Abnormal [facility] GLUCOSE (AUTOMATED)2024-05-17 20:02:53* Test Item Value Reference Range Interpretation Comme nts POCT GLU (test code = 7196991156) 146 mg/dL 70-110 H Lab Interpretation (test cod e = 48748-6) Abnormal [facility] GLUCOSE (AUTOMATED)2024-05-17 17:34:52* Test Item Value Reference Range Interpretation Comme nts POCT GLU (test code = 5873509071) 138 mg/dL 70-110 H Lab Interpretation (test cod e = 61497-0) Abnormal [facility] GLUCOSE (AUTOMATED)2024-05-17 17:34:52* Test Item Value Reference Range Interpretation Comme nts POCT GLU (test code = 9136738791) 138 mg/dL 70-110 H Lab Interpretation (test cod e = 95498-2) Abnormal [facility] without Axlq8117-01-70 14:54:55* Test Item Value Reference Range Interpretation Comme nts WBC (test code = 6690-2) 12.56 4.20-10.70 [...] 130 150-328 L MPV (test code = 01509-3) 10.3 fL 9.8-13.0 RDW-CV (test code = 788-0) 20.8 % 12.1-15.4 H RDW-SD (test code = 97994-7) 57.7 fL 38.5-51.6 H NRBC x10^3 (test code = 1504078949) 0.08 See_Comment [Automated [employer]] The system which generated this result transmitted reference range: 10*3/?L. The reference range was not used to interpret this result as normal/abnormal. NRBC/100 WBC (test code = 2441133671) 0.6 0.0-10.0 IPF % (test code = 5369104382) Lab Interpretation (test code = 86228-7) Abnormal [facility] without Nnaf6643-67-31 14:54:55* Test Item Value Reference Range Interpretation Comme nts WBC (test code = 6690-2) 12.56 4.20-10.70 [...] 130 150-328 L MPV (test code = 19000-1) 10.3 fL 9.8-13.0 RDW-CV (test code = 788-0) 20.8 % 12.1-15.4 H RDW-SD (test code = 53579-7) 57.7 fL 38.5-51.6 H NRBC x10^3 (test code = 2420779080) 0.08 See_Comment [Automated [employer]] The system which generated this result transmitted reference range: 10*3/?L. The reference range was not used to interpret this result as normal/abnormal. NRBC/100 WBC (test code = 1151130795) 0.6 0.0-10.0 IPF % (test code = 7226673811) Lab Interpretation (test code = 15946-9) Abnormal [facility] GLUCOSE (AUTOMATED)2024-05-17 14:26:51* Test Item Value Reference Range Interpretation Comme nts POCT GLU (test code = 6319085026) 146 mg/dL 70-110 H Lab Interpretation (test cod e = 47761-8) Abnormal [facility] GLUCOSE (AUTOMATED)2024-05-17 14:26:51* Test Item Value Reference Range Interpretation Comme nts POCT GLU (test code = 6214962702) 146 mg/dL 70-110 H Lab Interpretation (test cod e = 85948-7) Abnormal [facility] CampusXR Chest 1 [id number] 12:00:06History: assess hydropneumothorax . Exam: XR CHEST [...] noted. Thereare chronic- appearing right upper rib deformities.[facility] CampusXR Chest 1 od8988-58-91 12:00:06History: assess hydropneumothorax . Exam: XR CHEST [...] noted. Thereare chronic-appearing right upper rib deformit ies.[facility] CampusPrepare Packed RBC (in units), 1 Units 2024-05-17 10:10:34* Test Item Value Reference Range Interpretation Comme nts Cross Match Result (test code = 4409) Compatible ISBT Blood Type Code (test code = 460399) 5100 Unit Blood Type (test code = 4410) O Pos Unit Number (test code = 4411) [id number] Blood Expiration Date & Time (test code = 883869) [id number] Status Information (test code = 4412) Issued Product Identification (test code = 4413) Red Blood Cells Product Code (test code = 4414) [id number] Performed at [place] [id number] Free: [phone] No. [id number] [facility] Packed RBC (in units), 1 Units 2024-05-17 10:10:34* Test Item Value Reference Range Interpretation Comme nts Cross Match Result (test code = 4409) Compatible ISBT Blood Type Code (test code = 909268) 5100 Unit Blood Type (test code = 4410) O Pos Unit Number (test code = 4411) [id number] Blood Expiration Date & Time (test code = 115662) 199489333229 Status Information (test code = 4412) Issued Product Identification (test code = 4413) Red Blood Cells Product Code (test code = 4414) [id number] Performed at [place] [id number] Free: [phone] No. [id number] [facility] GLUCOSE (AUTOMATED)2024-05-17 03:10:21* Test Item Value Reference Range Interpretation Comme nts POCT GLU (test code = 0551539829) 153 mg/dL 70-110 H Lab Interpretation (test cod e = 88677-8) Abnormal [facility] GLUCOSE (AUTOMATED)2024-05-17 03:10:21* Test Item Value Reference Range Interpretation Comme nts POCT GLU (test code = 3088462583) 153 mg/dL 70-110 H Lab Interpretation (test cod e = 42852-9) Abnormal [facility] GLUCOSE (AUTOMATED)2024-05-17 01:05:18* Test Item Value Reference Range Interpretation Comme nts POCT GLU (test code = 1141452445) 124 mg/dL 70-110 H Lab Interpretation (test cod e = 08358-0) Abnormal [facility] GLUCOSE (AUTOMATED)2024-05-17 01:05:18* Test Item Value Reference Range Interpretation Comme nts POCT GLU (test code = 5377560141) 124 mg/dL 70-110 H Lab Interpretation (test cod e = 21700-1) Abnormal [facility]XR [facility] 1 iu2110-10-02 20:45:33EXAM: XR CHEST 1 VW HISTORY: 63 years-old Male with [place] pneumothorax . TECHNIQUE: Single frontal view of [...] osseous lesion, ordislocation. No soft t issue abnormality.[facility]XR Chest 1 [id number] 20:45:33EXAM: XR CHEST 1 VW HISTORY: 63 years-old Male with [place] pneumothorax . TECHNIQUE: Single frontal view of [...] aggressive osseous lesion, ordislocation. No soft tissue abnormality.[facility] GLUCOSE (AUTOMATED)2024-05-16 18:12:20* Test Item Value Reference Range Interpretation Comme nts POCT GLU (test code = 5395743872) 202 mg/dL 70-110 H Lab Interpretation (test cod e = 23440-4) Abnormal [facility] GLUCOSE (AUTOMATED)2024-05-16 18:12:20* Test Item Value Reference Range Interpretation Comme nts POCT GLU (test code = 2115851380) 202 mg/dL 70-110 H Lab Interpretation (test cod e = 77040-0) Abnormal [facility] GLUCOSE (AUTOMATED)2024-05-16 15:15:49* Test Item Value Reference Range Interpretation Comme nts POCT GLU (test code = 6208558198) 184 mg/dL 70-110 H Lab Interpretation (test cod e = 90920-3) Abnormal [facility] GLUCOSE (AUTOMATED)2024-05-16 15:15:49* Test Item Value Reference Range Interpretation Comme nts POCT GLU (test code = 5106928028) 184 mg/dL 70-110 H Lab Interpretation (test cod e = 70083-3) Abnormal [facility] GLUCOSE (AUTOMATED)2024-05-16 03:00:17* Test Item Value Reference Range Interpretation Comme nts POCT GLU (test code = 8285599726) 157 mg/dL 70-110 H Lab Interpretation (test cod e = 46867-3) Abnormal [facility] GLUCOSE (AUTOMATED)2024-05-16 03:00:17* Test Item Value Reference Range Interpretation Comme nts POCT GLU (test code = 9594254146) 157 mg/dL 70-110 H Lab Interpretation (test cod e = 21311-1) Abnormal [facility] GLUCOSE (AUTOMATED)2024-05-15 21:40:14* Test Item Value Reference Range Interpretation Comme nts POCT GLU (test code = 2237060857) 143 mg/dL 70-110 H Lab Interpretation (test cod e = 43500-1) Abnormal [facility] GLUCOSE (AUTOMATED)2024-05-15 21:40:14* Test Item Value Reference Range Interpretation Comme nts POCT GLU (test code = 5143012105) 143 mg/dL 70-110 H Lab Interpretation (test cod e = 12689-0) Abnormal [facility] GLUCOSE (AUTOMATED)2024-05-15 17:43:46* Test Item Value Reference Range Interpretation Comme nts POCT GLU (test code = 0579131770) 127 mg/dL 70-110 H Lab Interpretation (test cod e = 75419-2) Abnormal [facility] GLUCOSE (AUTOMATED)2024-05-15 17:43:46* Test Item Value Reference Range Interpretation Comme nts POCT GLU (test code = 0825601161) 127 mg/dL 70-110 H Lab Interpretation (test cod e = 69694-5) Abnormal [facility] GLUCOSE (AUTOMATED)2024-05-15 13:42:15* Test Item Value Reference Range Interpretation Comme nts POCT GLU (test code = 8014080289) 118 mg/dL 70-110 H Lab Interpretation (test cod e = 93327-3) Abnormal [facility] GLUCOSE (AUTOMATED)2024-05-15 13:42:15* Test Item Value Reference Range Interpretation Comme nts POCT GLU (test code = 4334084538) 118 mg/dL 70-110 H Lab Interpretation (test cod e = 27959-8) Abnormal [facility] GLUCOSE (AUTOMATED)2024-05-15 02:43:43* Test Item Value Reference Range Interpretation Comme nts POCT GLU (test code = 5529013275) 151 mg/dL 70-110 H Lab Interpretation (test cod e = 63862-9) Abnormal [facility] GLUCOSE (AUTOMATED)2024-05-15 02:43:43* Test Item Value Reference Range Interpretation Comme nts POCT GLU (test code = 5910229166) 151 mg/dL 70-110 H Lab Interpretation (test cod e = 37810-9) Abnormal [facility] GLUCOSE (AUTOMATED)2024-05-14 23:44:13* Test Item Value Reference Range Interpretation Comme nts POCT GLU (test code = 9969589203) 149 mg/dL 70-110 H Lab Interpretation (test cod e = 11544-7) Abnormal [facility] GLUCOSE (AUTOMATED)2024-05-14 23:44:13* Test Item Value Reference Range Interpretation Comme nts POCT GLU (test code = 0878879739) 149 mg/dL 70-110 H Lab Interpretation (test cod e = 75894-6) [facility]normal [facility] Packed RBC (in units), 1 Units 2024-05-14 17:34:11* Test Item Value Reference Range Interpretation Comme nts Cross Match Result (test code = 4409) Compatible ISBT Blood Type Code (test code = 985894) 5100 Unit Blood Type (test code = 4410) O Pos Unit Number (test code = 4411) [id number] Blood Expiration Date & Time (test code = 845310) [id number] Status Information (test code = 4412) Issued Product Identification (test code = 4413) Red Blood Cells Product Code (test code = 4414) [id number] Performed at [place] [id number] Free: [phone] No. [id number] [facility] Packed RBC (in units), 1 Units 2024-05-14 17:34:11* Test Item Value Reference Range Interpretation Comme nts Cross Match Result (test code = 4409) Compatible ISBT Blood Type Code (test code = 000850) 5100 Unit Blood Type (test code = 4410) O Pos Unit Number (test code = 4411) [id number] Blood Expiration Date & Time (test code = 654224) 820842116271 Status Information (test code = 4412) Issued Product Identification (test code = 4413) Red Blood Cells Product Code (test code = 4414) [id number] Performed at [address] Free: [phone] No. [id number] [facility] GLUCOSE (AUTOMATED)2024-05-14 15:34:42* Test Item Value Reference Range Interpretation Comme nts POCT GLU (test code = 8015038449) 155 mg/dL 70-110 H Lab Interpretation (test cod e = 22808-4) Abnormal [facility] GLUCOSE (AUTOMATED)2024-05-14 15:34:42* Test Item Value Reference Range Interpretation Comme nts POCT GLU (test code = 3584198138) 155 mg/dL 70-110 H Lab Interpretation (test cod e = 47867-3) Abnormal [facility] Angiogram abdomen/brtbyz1328-19-15 15:02:16 EXAM: CT ANGIOGRAM ABDOMEN/PELVIS HISTORY: 63-year-old [...] manifested by marginal osteophytes, facetarthrosis and endplate sclerosis.[facility]CT [facility] abdomen/pelvis 2024-05-14 15:02:16EXAM: CT ANGIOGRAM ABDOMEN/PELVIS [...] manifested by marginal osteophytes, facetarthrosis and endplate sclerosis.[facility] Packed RBC (in units), 2 Zdzhe3579-82-32 11:04:28* Test Item Value Reference Range Interpretation Comme nts Cross Match Result (test code = 4409) Compatible ISBT Blood Type Code (test code = 866060) 5100 Unit Blood Type (test code = 4410) O Pos Unit Number (test code = 4411) [id number] Blood Expiration Date & Time (test code = 618168) 593618004682 Status Information (test code = 4412) Issued Product Identification (test code = 4413) Red Blood Cells Product Code (test code = 4414) [id number] Performed at [facility] Laboratory [facility] Blood [place] [id number] Free: [phone] No. [id number] [facility] Packed RBC (in units), 2 Units 2024-05-14 11:04:28* Test Item Value Reference Range Interpretation Comme nts Cross Match Result (test code = 4409) Compatible ISBT Blood Type Code (test code = 903006) 5100 Unit Blood Type (test code = 4410) O Pos Unit Number (test code = 4411) [id number] Blood Expiration Date & Time (test code = 692492) 356555975398 Status Information (test code = 4412) Issued Product Identification (test code = 4413) Red Blood Cells Product Code (test code = 4414) [id number] Performed at [facility] Laboratory [facility] Blood [place] [id number] Free: [phone] No. [id number] [facility] CampusFibrinogen2025-01-22 06:33:14* Test Item Value Reference Range Interpretation Comme nts Fibrinogen (test code = 2838080818) 273 mg/dL 167-453 Lab Interpretation (test cod e = 01099-3) [facility]:14* Test Item Value Reference Range Interpretation Comme nts Fibrinogen (test code = 0599111524) 273 mg/dL 167-453 Lab Interpretation (test cod e = 60263-0) Normal [facility] CampusLactic Acid Whole Hzthz4078-43-86 03:28:01* Test Item Value Reference Range Interpretation Comme nts LACTIC ACID (test code = 2544870836) 2.61 mmol/L 0.50-2.20 H Lab Interpretation (test cod e = 70911-3) [facility] Esylp8057-15-02 03:28:01* Test Item Value Reference Range Interpretation Comme nts LACTIC ACID (test code = 8509524933) 2.61 mmol/L 0.50-2.20 H Lab Interpretation (test cod e = 52288-4) Abnormal [facility] Packed RBC (in units), 1 Units 2024-05-14 03:27:23* Test Item Value Reference Range Interpretation Comme nts Cross Match Result (test code = 4409) Compatible ISBT Blood Type Code (test code = 325931) 5100 Unit Blood Type (test code = 4410) O Pos Unit Number (test code = 4411) [id number] Blood Expiration Date & Time (test code = 685712) 126070452208 Status Information (test code = 4412) Issued Product Identification (test code = 4413) Red Blood Cells Product Code (test code = 4414) [id number] Performed at [facility] B Laboratory Services [facility] Blood [address] [place], [place] [address]Toll Free: [phone] No. [id number] [facility] Packed RBC (in units), 1 Units 2024-05-14 03:27:23* Test Item Value Reference Range Interpretation Comme nts Cross Match Result (test code = 4409) Compatible ISBT Blood Type Code (test code = 637512) 5100 Unit Blood Type (test code = 4410) O Pos Unit Number (test code = 4411) [id number] Blood Expiration Date & Time (test code = 310518) 825994843800 Status Information (test code = 4412) Issued Product Identification (test code = 4413) Red Blood Cells Product Code (test code = 4414) [id number] Performed at [facility] B Laboratory Services - [facility] Blood [address] [place] [address]Lrye Free: [phone] No. [id number] [facility] CampusABORH Confirmation (Lab Only)2024-05-14 01:21:00* Test Item Value Reference Range Interpretation Comme nts ABO & RH (test code = 20) O Positive [facility]AB[facility] Confirm[facility] (Lab Only)2024-05-14 01:21:00* Test Item Value Reference Range Interpretation Comme nts ABO & RH (test code = 20) O Positive [facility] CampusLactic Acid Whole Naahn0312-65-98 00:55:03* Test Item Value Reference Range Interpretation Comme nts LACTIC ACID (test code = 5498523061) 2.14 mmol/L 0.50-2.20 Lab Interpretation (test cod e = 59415-9) Normal [facility] CampusLactic Acid Whole Guuze3684-36-93 00:55:03* Test Item Value Reference Range Interpretation Comme nts LACTIC ACID (test code = 9319236543) 2.14 mmol/L 0.50-2.20 Lab Interpretation (test cod e = 18261-9) Normal [facility] CampusCritical Gtko5232-35-71 00:16:00Tien Gross MD ? ? 05/13/2024 11:12 PMCritical Care Performed by: Tien Gorss MDAuthorizedby: Tien Gross MD ?Critical care provider statement: ?Critical care time was exclusive of: ?Separately billable procedures and treating other patients and teaching time ?Critical care was necessary to treat or prevent imminent or life-threatening deterioration of the following conditions: ?Circulatory failure ?Critical care was time spent personally [...] a history; examining the patient; pulse oximetry; orderingand review of studies; arranging urgent treatment with development of a management plan; evaluationof patient's response to treatment; frequent reassessment; and, discussions with other providers.This critical care time was performed to assess and manage the high probability of imminent, life-threatening deterioration that could result in multi-organ failure. It was exclusive of separately billable procedures and treating other patients.[facility] GLUCOSE (AUTOMATED)2024-05-12 17:49:07* Test Item Value Reference Range Interpretation Comme nts POCT GLU (test code = 2005909515) 148 mg/dL 70-110 H Lab Interpretation (test cod e = 78168-5) Abnormal [facility] GLUCOSE (AUTOMATED)2024-05-12 17:49:07* Test Item Value Reference Range Interpretation Comme nts POCT GLU (test code = 9451433202) 148 mg/dL 70-110 H Lab Interpretation (test cod e = 46104-1) Abnormal [facility] CampusXR Chest 1 [id number] 14:09:08EXAM: ?XR CHEST 1 VW HISTORY: ?Pneumothorax [...] pleural effusions are stable.Mediastinal contour is normal. ?[facility] CampusXR Chest 1 [id number] 14:09:08EXAM: ?XR CHEST 1 VW HISTORY: ?Pneumothorax [...] pleural effusions are stable.Mediastinal contour is normal. ?[facility] GLUCOSE (AUTOMATED)2024-05-12 13:53:35* Test Item Value Reference Range Interpretation Comme nts POCT GLU (test code = 9017421908) 79 mg/dL 70-110 Lab Interpretation (test cod e = 43642-8) Normal [facility] GLUCOSE (AUTOMATED)2024-05-12 13:53:35* Test Item Value Reference Range Interpretation Comme nts POCT GLU (test code = 3307699980) 79 mg/dL 70-110 Lab Interpretation (test cod e = 18554-5) Normal [facility] GLUCOSE (AUTOMATED)2024-05-12 03:42:30* Test Item Value Reference Range Interpretation Comme nts POCT GLU (test code = 1077339430) 221 mg/dL 70-110 H Lab Interpretation (test cod e = 30740-8) Abnormal [facility] GLUCOSE (AUTOMATED)2024-05-12 03:42:30* Test Item Value Reference Range Interpretation Comme nts POCT GLU (test code = 7108178886) 221 mg/dL 70-110 H Lab Interpretation (test cod e = 60648-3) [facility] 22:28:02* Test Item Value Reference Range Interpretation Comme nts POCT GLU (test code = 2222603662) 118 mg/dL 70-110 H Lab Interpretation (test cod e = 69976-8) [facility]2024-[facility]-11 22:28:02* Test Item Value Reference Range Interpretation Comme nts POCT GLU (test code = 4115135770) 118 mg/dL 70-110 H Lab Interpretation (test cod e = 29055-5) [facility]2024-05-11 17:27:00* Test Item Value Reference Range Interpretation Comme nts POCT GLU (test code = 9363858122) 183 mg/dL 70-110 H Lab Interpretation (test cod e = 87514-1) Abnormal [facility] GLUCOSE (AUTOMATED)2024-05-11 17:27:00* Test Item Value Reference Range Interpretation Comme nts POCT GLU (test code = 9043296394) 183 mg/dL 70-110 H Lab Interpretation (test cod e = 77389-1) Abnormal [facility] GLUCOSE (AUTOMATED)2024-05-11 13:30:28* Test Item Value Reference Range Interpretation Comme nts POCT GLU (test code = 9056551428) 66 mg/dL 70-110 L Lab Interpretation (test cod e = 94319-4) Abnormal [facility] GLUCOSE (AUTOMATED)2024-05-11 13:30:28* Test Item Value Reference Range Interpretation Comme nts POCT GLU (test code = 3224264267) 66 mg/dL 70-110 L Lab Interpretation (test cod e = 63707-9) Abnormal [facility] 1 [id number] 13:17:44History: L ptx . Exam: XR CHEST [...] moderate left and trace rightpleural effusions are unchanged.[facility] 1 ot4538-78-32 13:17:44History: L ptx . Exam: XR CHEST [...] moderate left and trace rightpleural effusions are unchanged.[facility] GLUCOSE (AUTOMATED)2024-05-11 02:34:32* Test Item Value Reference Range Interpretation Comme nts POCT GLU (test code = 2088189128) 140 mg/dL 70-110 H Lab Interpretation (test cod e = 71151-6) Abnormal [facility] GLUCOSE (AUTOMATED)2024-05-11 02:34:32* Test Item Value Reference Range Interpretation Comme nts POCT GLU (test code = 8628180703) 140 mg/dL 70-110 H Lab Interpretation (test cod e = 73814-5) Abnormal [facility] GLUCOSE (AUTOMATED)2024-05-10 22:18:30* Test Item Value Reference Range Interpretation Comme nts POCT GLU (test code = 4029269850) 111 mg/dL 70-110 H Lab Interpretation (test cod e = 97668-7) Abnormal [facility] GLUCOSE (AUTOMATED)2024-05-10 22:18:30* Test Item Value Reference Range Interpretation Comme nts POCT GLU (test code = 4142326758) 111 mg/dL 70-110 H Lab Interpretation (test cod e = 22536-0) Abnormal [facility] GLUCOSE (AUTOMATED)2024-05-10 18:05:23* Test Item Value Reference Range Interpretation Comme nts POCT GLU (test code = 9867438575) 178 mg/dL 70-110 H Lab Interpretation (test cod e = 79404-1) Abnormal [facility] GLUCOSE (AUTOMATED)2024-05-10 18:05:23* Test Item Value Reference Range Interpretation Comme nts POCT GLU (test code = 1989318813) 178 mg/dL 70-110 H Lab Interpretation (test cod e = 80034-3) Abnormal [facility] 1 [id number] 17:02:20EXAM: XR CHEST 1 VW HISTORY: 63 [...] detected. Sternotomywires appear intact and unchanged in position.[facility]XR [facility] 1 [id number] 17:02:20EXAM: XR CHEST 1 VW HISTORY: 63 [...] detected. Sternotomywires appear intact and unchanged in position.[facility] GLUCOSE (AUTOMATED)2024-05-10 13:34:26* Test Item Value Reference Range Interpretation Comme nts POCT GLU (test code = 8963327674) 111 mg/dL 70-110 H Lab Interpretation (test cod e = 63957-0) Abnormal [facility] GLU[facility] ([facility]ATED)2024-05-10 13:34:26* Test Item Value Reference Range Interpretation Comme nts POCT GLU (test code = 6283022463) 111 mg/dL 70-110 H Lab Interpretation (test cod e = 79510-8) Abnormal [facility] 1 [id number] 13:11:01History: ptx . Exam: XR CHEST 1 [...] are noted. Mild bilateral perihilar interstitialopacities are unchanged.[facility] XR Chest 1 [id number] 13:11:01History: ptx . Exam: XR CHEST 1 [...] are noted. Mild bilateral perihilar interstitialopacities are unchanged.[facility] GLUCOSE (AUTOMATED)2024-05-10 02:19:54* Test Item Value Reference Range Interpretation Comme nts POCT GLU (test code = 6692194914) 240 mg/dL 70-110 H Lab Interpretation (test cod e = 80188-8) Abnormal [facility] GLUCOSE (AUTOMATED)2024-05-10 02:19:54* Test Item Value Reference Range Interpretation Comme nts POCT GLU (test code = 2889385802) 240 mg/dL 70-110 H Lab Interpretation (test cod e = 59144-6) Abnormal [facility] CampusHbc Antibody (IgM & IgG)2024-05-09 22:23:44* Test Item Value Reference Range Interpretation Comme nts HBC (test code = 3517993098) Negative HBC Semi-Quantitative (test code = 0594577048) 3.19 [facility] CampusHbc Antibody (IgM & IgG)2024-05-09 22:23:44* Test Item Value Reference Range Interpretation Comme nts HBC (test code = 0837891021) Negative HBC Semi-Quantitative (test code = 8995033455) 3.19 [facility] 1 [id number] 20:43:00ORDERING PHYSICIAN: ASAD MORGAN. HISTORY: permacath TECHNIQUE: [...] not enlarged. Other: ?Noacute osseous abnormality is seen.[facility] Chest 1 [id number] 20:43:00ORDERING PHYSICIAN: ASAD MORGAN. HISTORY: permacath TECHNIQUE: [...] not enlarged. Other: ?Noacute osseous abnormality is seen.[facility] POCT GLUCOSE (AUTOMATED)2024-05-09 18:31:55* Test Item Value Reference Range Interpretation Comme nts POCT GLU (test code = 8630513985) 78 mg/dL 70-110 Lab Interpretation (test cod e = 08130-4) Normal [facility] GLUCOSE (AUTOMATED)2024-05-09 18:31:55* Test Item Value Reference Range Interpretation Comme nts POCT GLU (test code = 2053543374) 78 mg/dL 70-110 Lab Interpretation (test cod e = 85754-9) Normal [facility] GLUCOSE (AUTOMATED)2024-05-09 17:43:54* Test Item Value Reference Range Interpretation Comme nts POCT GLU (test code = 8745849186) 76 mg/dL 70-110 Lab Interpretation (test cod e = 07538-1) Normal [facility] GLUCOSE (AUTOMATED)2024-05-09 17:43:54* Test Item Value Reference Range Interpretation Comme nts POCT GLU (test code = 8208317223) 76 mg/dL 70-110 Lab Interpretation (test cod e = 67575-4) Normal [facility] Time OR(non-reportable)2024-05-09 17:19:41 These images do not require a Radiology diagnostic report.[facility] Time OR(non-reportable)2024-05-09 17:19:41These images do not require a Radiology diagnostic report.[facility] CampusNerve [id number] 14:59:54EpJony loving MD ? ? 05/09/2024 ?9:03 AM Nerve [...] block done with 10 cc 2[facility]oc[facility]Un[facility]2024-05-09 12:58:21* Test Item Value Reference Range Interpretation Comme [facility] POCT GLU (test code = 7573957597) 117 mg/dL 70-110 H Lab Interpretation (test cod e = 40255-8) Abnormal [facility] GLUCOSE (AUTOMATED)2024-05-09 12:58:21* Test Item Value Reference Range Interpretation Comme [facility] POCT GLU (test code = 9568841160) 117 mg/dL 70-110 H Lab Interpretation (test cod e = 31650-5) Abnormal [facility] Metabolic Panel (NA, K, CL, CO2, GLUCOSE, BUN, CREATININE, CA)2024-05-09 12:42:53* Test Item Value Reference Range Interpretation Comme [facility] NA (test code = 9726509913) 134 mmol/L 135-145 L K (test code = 4280129537) 4.3 mmol/L 3.5-5.0 CL (test code = 1840070444) 105 mmol/L 98-108 CO2 TOTAL (test code = 0320502907) 20 mmol/L 23-31 L AGAP (test code = 0906053004) 9 2-16 BUN (test code = 3210222921) 86 mg/dL 7-23 H GLUCOSE (test code = 7720783574) 118 mg/dL 70-110 H CREATININE (test code = 2160-0) 5.19 mg/dL 0.60-1.25 H CALCIUM (test code = 7954393638) 7.7 mg/dL 8.6-10.6 L eGFR (test code = 76434-5) 11.8 mL/min/1.73m2 CKD-EPI eGFR (2020). Assuming creatinine has been stable day-to-day for at least three months, the eGFR indicates Category G5 (<= 14mL/min/1.73 m2) Lab Interpretation (test code = 90626-6) Abnormal [facility] CampusMagnesium2025-01-17 12:42:53* Test Item Value Reference Range Interpretation Comme nts MAGNESIUM (test code = 6799533942) 1.9 mg/dL 1.7-2.4 Lab Interpretation (test cod e = 51806-8) Normal [facility] CampusBaarh [facility] (NA, K, CL, CO2, GLUCOSE, BUN, CREATININE, CA)2024-05-09 12:42:53* Test Item Value Reference Range Interpretation Comme nts NA (test code = 9649660488) 134 mmol/L 135-145 L K (test code = 2533423564) 4.3 mmol/L 3.5-5.0 CL (test code = 4804551115) 105 mmol/L 98-108 CO2 TOTAL (test code = 8875445713) 20 mmol/L 23-31 L AGAP (test code = 1346087578) 9 2-16 BUN (test code = 1388941641) 86 mg/dL 7-23 H GLUCOSE (test code = 1822536552) 118 mg/dL 70-110 H CREATININE (test code = 2160-0) 5.19 mg/dL 0.60-1.25 H CALCIUM (test code = 7182329048) 7.7 mg/dL 8.6-10.6 L eGFR (test code = 75723-2) 11.8 mL/min/1.73m2 CKD-EPI eGFR (2020). Assuming creatinine has been stable day-to-day for at least three months, the eGFR indicates Category G5 (<= 14mL/min/1.73 m2) Lab Interpretation (test code = 72240-7) Abnormal [facility] CampusMagnesium2025-01-17 12:42:53* Test Item Value Reference Range Interpretation Comme nts MAGNESIUM (test code = 3383895232) 1.9 mg/dL 1.7-2.4 Lab Interpretation (test cod e = 74691-5) Normal [facility] CampusProthrombin Time / [id number] 12:37:30* Test Item Value Reference Range Interpretation Comme nts PROTIME PATIENT (test code = 5964-2) 13.4 10.1-12.6 H INR (test code = 6301-6) 1.1 Normal INR <1.1; Warfarin Therapeutic range 2.0 to 3.0 or 2.5 to 3.5, depending upon the indications. Lab Interpretation (test code = 78916-6) Abnormal [facility] CampusProthrombin Time / [id number] 12:37:30* Test Item Value Reference Range Interpretation Comme nts PROTIME PATIENT (test code = 5964-2) 13.4 10.1-12.6 H INR (test code = 6301-6) 1.1 Normal INR <1.1; Warfarin Therapeutic range 2.0 to 3.0 or 2.5 to 3.5, depending upon the indications. Lab Interpretation (test code = 59836-7) Abnormal [facility] CampusCb with [id number] 12:12:29* Test Item Value Reference Range Interpretation [...] 31.8 g/dL 31.2-35.0 RDW-SD (test code = 83904-6) 46.4 fL 38.5-51.6 RDW-CV (test code = 788-0) 13.2 % 12.1-15.4 PLT (test code = 777-3) 169 150-328 MPV (test code = 92868-7) 12.2 fL 9.8-13.0 NRBC/100 WBC (test code = 6757454873) 0.0 0.0-10.0 NRBC x10^3 (test code = 6359549635) See_Comment [Automated messa ge] The system which generated this result transmitted reference range: 10*3/?L. The reference range was not used to interpret this result as normal/abnormal. GRAN MAT (NEUT) % (test code = 770-8) 69.1 % IMM GRAN % (test code = 9240704105) 0.20 % LYMPH % (test code = 736-9) 10.0 % MONO % (test code = 5905-5) 14.8 % EOS % (test code = 713-8) 5.7 % BASO % (test code = 706-2) 0.2 % GRAN MAT x10^3(ANC) (test code = 4075267535) 2.89 10*3/uL 1.99-6.95 IMM GRAN x10^3 (test code = 8520121442) 0.00-0.06 LYMPH x10^3 (test code = 731-0) 0.42 10*3/uL 1.09-3.23 L MONO x10^3 (test code = 742-7) 0.62 10*3/uL 0.36-1.02 EOS x10^3 (test code = 711-2) 0.24 10*3/uL 0.06-0.53 BASO x10^3 (test code = 704-7) 0.01-0.09 Lab Interpretation (test code = 71575-6) Abnormal [facility] with Iafy8955-65-56 12:12:29* Test Item Value Reference Range Interpretation [...] 31.8 g/dL 31.2-35.0 RDW-SD (test code = 04346-8) 46.4 fL 38.5-51.6 RDW-CV (test code = 788-0) 13.2 % 12.1-15.4 PLT (test code = 777-3) 169 150-328 MPV (test code = 79031-6) 12.2 fL 9.8-13.0 NRBC/100 WBC (test code = 7149206504) 0.0 0.0-10.0 NRBC x10^3 (test code = 6099348568) See_Comment [Automated messa ge] The system which generated this result transmitted reference range: 10*3/?L. The reference range was not used to interpret this result as normal/abnormal. GRAN MAT (NEUT) % (test code = 770-8) 69.1 % IMM GRAN % (test code = 0904811438) 0.20 % LYMPH % (test code = 736-9) 10.0 % MONO % (test code = 5905-5) 14.8 % EOS % (test code = 713-8) 5.7 % BASO % (test code = 706-2) 0.2 % GRAN MAT x10^3(ANC) (test code = 9930824719) 2.89 10*3/uL 1.99-6.95 IMM GRAN x10^3 (test code = 0420378235) 0.00-0.06 LYMPH x10^3 (test code = 731-0) 0.42 10*3/uL 1.09-3.23 L MONO x10^3 (test code = 742-7) 0.62 10*3/uL 0.36-1.02 EOS x10^3 (test code = 711-2) 0.24 10*3/uL 0.06-0.53 BASO x10^3 (test code = 704-7) 0.01-0.09 Lab Interpretation (test code = 99084-9) Abnormal [facility] GLUCOSE (AUTOMATED)2024-05-09 02:42:21* Test Item Value Reference Range Interpretation Comme nts POCT GLU (test code = 2622813699) 227 mg/dL 70-110 H Lab Interpretation (test cod e = 29302-1) Abnormal [facility] GLUCOSE (AUTOMATED)2024-05-09 02:42:21* Test Item Value Reference Range Interpretation Comme nts POCT GLU (test code = 4543144181) 227 mg/dL 70-110 H Lab Interpretation (test cod e = 24430-2) Abnormal [facility] GLUCOSE (AUTOMATED)2024-05-08 23:03:51* Test Item Value Reference Range Interpretation Comme nts POCT GLU (test code = 1139248048) 157 mg/dL 70-110 H Lab Interpretation (test cod e = 99418-9) Abnormal [facility] GLUCOSE (AUTOMATED)2024-05-08 23:03:51* Test Item Value Reference Range Interpretation Comme nts POCT GLU (test code = 4709157101) 157 mg/dL 70-110 H Lab Interpretation (test cod e = 84226-6) Abnormal [facility] B Core Antibody (HBcAb) IGM 2024-05-08 22:49:01* Test Item Value Reference Range Interpretation Comme nts HBCM Semi-Quantitative (test code = 07257-8) 0.04 KELLE (test code = KELLE) Biotin has been reported to cause a negative bias, interpret results relative to patient's use of biotin. [facility] B Core Antibody (HBcAb) IGM 2024-05-08 22:49:01* Test Item Value Reference Range Interpretation Comme nts HBCM Semi-Quantitative (test code = 05537-8) 0.04 KELLE (test code = KELLE) Biotin has been reported to cause a negative bias, interpret results relative to patient's use of biotin. [facility] CampusH[facility] Tjztqkor5726-27-82 17:54:58* Test Item Value Reference Range Interpretation Comme nts HCV Ab (test code = 29033-0) Negative HCV Semi-Quantitative (test code = 89307-6) 0.06 [facility] CampusHepatitis B Surface Antibody (HBsAb)2024-05-08 17:54:58* Test Item Value Reference Range Interpretation Comme nts HBsAB (test code = 2511744442) Negative HBsAb Semi-Quantitative (test code = 9781854703) 0.00 mIU/mL KELLE (test code = KELLE) Interpretation: ?Hepatitis B Surface Antibody ? Negative - Patient is considered to be not immune to infection with HBV. ? ? Positive - Anti-HBs detected at greater than or equal to 12 mIU/mL. ?Patient is considered to be immune to infection with HBV. ? [facility] CampusHcv Roqbxpcq7194-31-44 17:54:58* Test Item Value Reference Range Interpretation Comme nts HCV Ab (test code = 86840-9) Negative HCV Semi-Quantitative (test code = 70915-1) 0.06 [facility] CampusHepatitis B Surface Antibody (HBsAb)2024-05-08 17:54:58* Test Item Value Reference Range Interpretation Comme nts HBsAB (test code = 3383042423) Negative HBsAb Semi-Quantitative (test code = 8868603851) 0.00 mIU/mL KELLE (test code = KELLE) Interpretation: ?Hepatitis B Surface Antibody ? Negative - Patient is considered to be not immune to infection with HBV. ? ? Positive - Anti-HBs detected at greater than or equal to 12 mIU/mL. ?Patient is considered to be immune to infection with HBV. ? [facility] CampusProcalcitonin2025-01-16 17:51:49* Test Item Value Reference Range Interpretation Comme nts Procalcitonin (test code = 8987870219) 0.30 ng/mL <=0.07 H KELLE (test code [...] lung abscess/empyema. For further information please refer to:[email or web address] Lab Interpretation (test code = 81924-9) Abnormal [facility] CampusProcalcitonin2025-01-16 17:51:49* Test Item Value Reference Range Interpretation Comme nts Procalcitonin (test code = 9418382113) 0.30 ng/mL <=0.07 H KELLE (test code [...] lung abscess/empyema. For further information please refer to:[email or web address] Lab Interpretation (test code = 05348-2) Abnormal [facility] B Surface Antigen (HBsAg)2024-05-08 17:37:35* Test Item Value Reference Range Interpretation Comme nts HBsAg Semi-Quantitative (calderon t code = 5195-3) 0.10 Negative [facility] B Surface Antigen (HBsAg)2024-05-08 17:37:35* Test Item Value Reference Range Interpretation Comme nts HBsAg Semi-Quantitative (calderon t code = 5195-3) 0.10 Negative [facility] GLUCOSE (AUTOMATED)2024-05-08 17:37:20* Test Item Value Reference Range Interpretation Comme nts POCT GLU (test code = 6465902437) 160 mg/dL 70-110 H Lab Interpretation (test cod e = 95982-2) Abnormal [facility] GLUCOSE (AUTOMATED)2024-05-08 17:37:20* Test Item Value Reference Range Interpretation Comme nts POCT GLU (test code = 4168561097) 160 mg/dL 70-110 H Lab Interpretation (test cod e = 61675-4) Abnormal [facility] GLUCOSE (AUTOMATED)2024-05-08 13:33:48* Test Item Value Reference Range Interpretation Comme nts POCT GLU (test code = 9947536639) 73 mg/dL 70-110 Lab Interpretation (test cod e = 70765-3) Normal [facility] GLUCOSE (AUTOMATED)2024-05-08 13:33:48* Test Item Value Reference Range Interpretation Comme nts POCT GLU (test code = 8610567762) 73 mg/dL 70-110 Lab Interpretation (test cod e = 89633-0) Normal [facility] CampusFerritin Gswcw7505-02-62 11:23:05* Test Item Value Reference Range Interpretation Comme nts FERRITIN (test code = 3639318589) 77.4 ng/mL 18.0-464.0 KELLE (test code = KELLE) Biotin has been reported to cause a negative bias, interpret results relative to patient's use of biotin. Lab Interpretation (test code = 42023-4) Normal [facility] CampusFeriatin Xldtd8651-00-36 11:23:05* Test Item Value Reference Range Interpretation Comme nts FERRITIN (test code = 7258241064) 77.4 ng/mL 18.0-464.0 KELLE (test code = KELLE) Biotin has been reported to cause a negative bias, interpret results relative to patient's use of biotin. Lab Interpretation (test code = 65879-9) Normal [facility] Sdyeu4016-04-69 10:57:01* Test Item Value Reference Range Interpretation Comme nts IRON (test code = 9916074369) 36 ug/dL 50-160 L TIBC (test code = 0177968654) 250 ug/dL 250-410 % FE SAT (test code = 2167140450) 14 % 20-50 L Lab Interpretation (test cod e = 74322-2) Abnormal [facility] Fgubu8434-06-40 10:57:01* Test Item Value Reference Range Interpretation Comme nts IRON (test code = 7608444825) 36 ug/dL 50-160 L TIBC (test code = 5801435161) 250 ug/dL 250-410 % FE SAT (test code = 8499415386) 14 % 20-50 L Lab Interpretation (test cod e = 38488-7) Abnormal [facility] Metabolic Panel (NA, K, CL, CO2, GLUCOSE, BUN, CREATININE, CA)2024-05-08 10:39:16* Test Item Value Reference Range Interpretation Comme nts NA (test code = 7148001900) 136 mmol/L 135-145 K (test code = 0851763198) 4.1 mmol/L 3.5-5.0 CL (test code = 9012259259) 106 mmol/L 98-108 CO2 TOTAL (test code = 5494007587) 24 mmol/L 23-31 AGAP (test code = 5706280915) 6 2-16 BUN (test code = 7451945158) 77 mg/dL 7-23 H GLUCOSE (test code = 5071155564) 116 mg/dL 70-110 H CREATININE (test code = 2160-0) 4.71 mg/dL 0.60-1.25 H CALCIUM (test code = 5403841761) 8.3 mg/dL 8.6-10.6 L eGFR (test code = 26781-7) 13.3 mL/min/1.73m2 CKD-EPI eGFR (2020). Assuming creatinine has been stable day-to-day for at least three months, the eGFR indicates Category G5 (<= 14mL/min/1.73 m2) Lab Interpretation (test code = 08178-3) Abnormal [facility] CampusMagnesium2025-01-16 10:39:16* Test Item Value Reference Range Interpretation Comme nts MAGNESIUM (test code = 5845144141) 1.9 mg/dL 1.7-2.4 Lab Interpretation (test cod e = 89526-5) Normal [facility] Metabolic Panel (NA, K, CL, CO2, GLUCOSE, BUN, CREATININE, CA)2024-05-08 10:39:16* Test Item Value Reference Range Interpretation Comme nts NA (test code = 5037229561) 136 mmol/L 135-145 K (test code = 1205287308) 4.1 mmol/L 3.5-5.0 CL (test code = 8218183115) 106 mmol/L 98-108 CO2 TOTAL (test code = 3165962360) 24 mmol/L 23-31 AGAP (test code = 7382057980) 6 2-16 BUN (test code = 5285146291) 77 mg/dL 7-23 H GLUCOSE (test code = 0470755306) 116 mg/dL 70-110 H CREATININE (test code = 2160-0) 4.71 mg/dL 0.60-1.25 H CALCIUM (test code = 3668070100) 8.3 mg/dL 8.6-10.6 L eGFR (test code = 71973-0) 13.3 mL/min/1.73m2 CKD-EPI eGFR (2020). Assuming creatinine has been stable day-to-day for at least three months, the eGFR indicates Category G5 (<= 14mL/min/1.73 m2) Lab Interpretation (test code = 28695-2) Abnormal [facility] CampusMagnesium2025-01-16 10:39:16* Test Item Value Reference Range Interpretation Comme nts MAGNESIUM (test code = 1656426492) 1.9 mg/dL 1.7-2.4 Lab Interpretation (test cod e = 70416-3) Normal [facility] with Huay9204-57-98 10:24:58* Test Item Value Reference Range Interpretation [...] 32.9 g/dL 31.2-35.0 RDW-SD (test code = 66573-6) 45.6 fL 38.5-51.6 RDW-CV (test code = 788-0) 13.1 % 12.1-15.4 PLT (test code = 777-3) 174 150-328 MPV (test code = 04147-3) 11.8 fL 9.8-13.0 NRBC/100 WBC (test code = 2326987212) 0.0 0.0-10.0 NRBC x10^3 (test code = 4975610130) See_Comment [Automated messa ge] The system which generated this result transmitted reference range: 10*3/?L. The reference range was not used to interpret this result as normal/abnormal. GRAN MAT (NEUT) % (test code = 770-8) 73.0 % IMM GRAN % (test code = 2062601927) 0.20 % LYMPH % (test code = 736-9) 10.6 % MONO % (test code = 5905-5) 11.3 % EOS % (test code = 713-8) 4.3 % BASO % (test code = 706-2) 0.6 % GRAN MAT x10^3(ANC) (test code = 9007192958) 3.37 10*3/uL 1.99-6.95 IMM GRAN x10^3 (test code = 6354610223) 0.00-0.06 LYMPH x10^3 (test code = 731-0) 0.49 10*3/uL 1.09-3.23 L MONO x10^3 (test code = 742-7) 0.52 10*3/uL 0.36-1.02 EOS x10^3 (test code = 711-2) 0.20 10*3/uL 0.06-0.53 BASO x10^3 (test code = 704-7) 0.03 10*3/uL 0.01-0.09 Lab Interpretation (test code = 40865-6) Abnormal [facility] with Vhzi3853-06-01 10:24:58* Test Item Value Reference Range Interpretation [...] 32.9 g/dL 31.2-35.0 RDW-SD (test code = 33061-0) 45.6 fL 38.5-51.6 RDW-CV (test code = 788-0) 13.1 % 12.1-15.4 PLT (test code = 777-3) 174 150-328 MPV (test code = 31189-3) 11.8 fL 9.8-13.0 NRBC/100 WBC (test code = 9401122720) 0.0 0.0-10.0 NRBC x10^3 (test code = 6966969840) See_Comment [Automated messa ge] The system which generated this result transmitted reference range: 10*3/?L. The reference range was not used to interpret this result as normal/abnormal. GRAN MAT (NEUT) % (test code = 770-8) 73.0 % IMM GRAN % (test code = 9425065699) 0.20 % LYMPH % (test code = 736-9) 10.6 % MONO % (test code = 5905-5) 11.3 % EOS % (test code = 713-8) 4.3 % BASO % (test code = 706-2) 0.6 % GRAN MAT x10^3(ANC) (test code = 8957357002) 3.37 10*3/uL 1.99-6.95 IMM GRAN x10^3 (test code = 4571506677) 0.00-0.06 LYMPH x10^3 (test code = 731-0) 0.49 10*3/uL 1.09-3.23 L MONO x10^3 (test code = 742-7) 0.52 10*3/uL 0.36-1.02 EOS x10^3 (test code = 711-2) 0.20 10*3/uL 0.06-0.53 BASO x10^3 (test code = 704-7) 0.03 10*3/uL 0.01-0.09 Lab Interpretation (test code = 29167-2) Abnormal [facility] GLUCOSE (AUTOMATED)2024-05-08 02:16:50* Test Item Value Reference Range Interpretation Comme nts POCT GLU (test code = 5023501271) 203 mg/dL 70-110 H Lab Interpretation (test cod e = 43071-0) Abnormal [facility] GLUCOSE (AUTOMATED)2024-05-08 02:16:50* Test Item Value Reference Range Interpretation Comme nts POCT GLU (test code = 3917110634) 203 mg/dL 70-110 H Lab Interpretation (test cod e = 94833-0) Abnormal [facility] GLUCOSE (AUTOMATED)2024-05-07 22:39:45* Test Item Value Reference Range Interpretation Comme nts POCT GLU (test code = 5872483781) 135 mg/dL 70-110 H Lab Interpretation (test cod e = 98192-4) Abnormal [facility] GLUCOSE (AUTOMATED)2024-05-07 22:39:45* Test Item Value Reference Range Interpretation Comme nts POCT GLU (test code = 6106062711) 135 mg/dL 70-110 H Lab Interpretation (test cod e = 75638-1) Abnormal [facility] CampusTransthoracic echo (TTE)2024-05-07 22:28:40* Test Item Value Reference Range Interpretation Comme nts Height (test code = 1188622985) 69 in Weight (test code = 4206247849) 170 lbs Systolic BP (test code = 3665314974) 121 mmHg Diastolic BP (test code = 7323906494) 62 mmHg Heart Rate (test code = 4183278079) 64 bpm BSA (test code = 3606045333) 1.93 m2 LVOT diameter (test code = 5358754805) 1.97 cm LVOT area (test code = 7716309925) 3.00 cm2 LA size (test code = 8416358906) 3.9 cm Ao root diam (test code = 0769939662) 3.50 cm Aortic root (test code = 0686957630) 3.5 cm Ao root annulus (test code = 8257008395) 3.5 cm TR Peak Sylvain (test code = 8865233162) 282.9 cm/s Triscuspid Valve Regurgitation Peak Gradient (test code = 9549937208) 32.1 mmHg E wave decelartion time (test code = 3991864231) 0.22 s MV Peak E Sylvain (test code = 3553766236) 121.1 cm/s MV stenosis pressure 1/2 time (test code = 3732905478) 66.0 ms MV Peak A Sylvain (test code = 0605003107) 76.0 cm/s E/A ratio (test code = 7279714963) 1.59 ratio MV Prop V (test code = 9707785782) 40.60 cm/s MV E/e' septal (test code = 1840715887) 10.2 cm/s LAV(MOD-sp4) (test code = 9812056770) 95.70 mL Tapse (test code = 5756680980) 1.37 cm LVOT stroke volume (test code = 9082361191) 66.10 cm3 LVOT peak sylvain (test code = 7336269149) 100.1 cm/s LVOT mn grad (test code = 6871097717) 2.0 mmHg AV LVOT peak gradient (test code = 1834396941) 4.0 mmHg LVOT peak VTI (test code = 4672138602) 21.8 cm LV V1 mean (test code = 1258862985) 65.70 cm/s Aortic valve mean velocity (test code = 4228324262) 119.7 cm/s Ao peak sylvain (test code = 9504658943) 162.0 cm/s Ao VTI (test code = 4232143912) 34.6 cm AV area by cont VTI (test code = 7995537999) 1.9 cm2 AV area peak sylvain (test code = 7365946465) 1.9 cm2 Ao max PG (test code = 9563723181) 10.50 mm[Hg] AV peak gradient (test code = 3533152772) 10.5 mmHg AV valve area (test code = 8119994344) 1.91 cm2 AV mean gradient (test code = 5856015374) 6.1 mmHg LVIDD (test code = 8900565684) 6.30 cm Left Ventricular End Diastolic Volume by Teichholz Method (test code = 4827597) 201.1 mL IVS (test code = 1275605514) 0.92 cm Interventricular Septum Diastolic Thickness by 2D (test code = 6780824) 0.92 cm LVPWD (test code = 2104761063) 0.94 cm PW (test code = 4141374722) 0.94 cm 0.6-1.1 EF(Teich) (test code = 0679470112) 32.30 % LVIDS (test code = 2627845920) 5.30 cm Left Ventricular End Systolic Volume by Teichholz Method (test code = 7739103) 136.1 mL FS (test code = 0589396531) 16 % EF - 2D (test code = 33753181) 32.30 % Radiology Study observation (narrative) (test code = 79430-8) KELLE (test code = KELLE) ?Left?Ventricle: Left [...] mid anterior, mid inferolateral and mid anterolateral. [facility]Transthoracic echo (TTE)2024-05-07 22:28:40* Test Item Value Reference Range Interpretation Comme nts Height (test code = 3726264393) 69 in Weight (test code = 4437160992) 170 lbs Systolic BP (test code = 1656883292) 121 mmHg Diastolic BP (test code = 3261182585) 62 mmHg Heart Rate (test code = 1664115234) 64 bpm BSA (test code = 4037810824) 1.93 m2 LVOT diameter (test code = 2769929761) 1.97 cm LVOT area (test code = 3684293413) 3.00 cm2 LA size (test code = 8477139903) 3.9 cm Ao root diam (test code = 8349692524) 3.50 cm Aortic root (test code = 0593755827) 3.5 cm Ao root annulus (test code = 5208757950) 3.5 cm TR Peak Sylvain (test code = 0789474118) 282.9 cm/s Triscuspid Valve Regurgitation Peak Gradient (test code = 5090335977) 32.1 mmHg E wave decelartion time (test code = 0236571642) 0.22 s MV Peak E Sylvain (test code = 1690987777) 121.1 cm/s MV stenosis pressure 1/2 time (test code = 8256109692) 66.0 ms MV Peak A Sylvain (test code = 4945583635) 76.0 cm/s E/A ratio (test code = 9997822643) 1.59 ratio MV Prop V (test code = 9873868890) 40.60 cm/s MV E/e' septal (test code = 3751112224) 10.2 cm/s LAV(MOD-sp4) (test code = 3348107606) 95.70 mL Tapse (test code = 2410958424) 1.37 cm LVOT stroke volume (test code = 2560389309) 66.10 cm3 LVOT peak sylvain (test code = 3997405810) 100.1 cm/s LVOT mn grad (test code = 8082448799) 2.0 mmHg AV LVOT peak gradient (test code = 5470493876) 4.0 mmHg LVOT peak VTI (test code = 1259004038) 21.8 cm LV V1 mean (test code = 1707804860) 65.70 cm/s Aortic valve mean velocity (test code = 5360920811) 119.7 cm/s Ao peak sylvain (test code = 8557654474) 162.0 cm/s Ao VTI (test code = 5047548888) 34.6 cm AV area by cont VTI (test code = 2445375839) 1.9 cm2 AV area peak sylvain (test code = 9370875273) 1.9 cm2 Ao max PG (test code = 1044901554) 10.50 mm[Hg] AV peak gradient (test code = 7589449889) 10.5 mmHg AV valve area (test code = 3793428018) 1.91 cm2 AV mean gradient (test code = 0387227680) 6.1 mmHg LVIDD (test code = 3575810405) 6.30 cm Left Ventricular End Diastolic Volume by Teichholz Method (test code = 6541840) 201.1 mL IVS (test code = 6692824522) 0.92 cm Interventricular Septum Diastolic Thickness by 2D (test code = 2592295) 0.92 cm LVPWD (test code = 9559584413) 0.94 cm PW (test code = 5222065689) 0.94 cm 0.6-1.1 EF(Teich) (test code = 8838514800) 32.30 % LVIDS (test code = 4344044198) 5.30 cm Left Ventricular End Systolic Volume by Teichholz Method (test code = 8485227) 136.1 mL FS (test code = 5528858584) 16 % EF - 2D (test code = 31726173) 32.30 % Radiology Study observation (narrative) (test code = 68183-6) KELLE (test code = KELLE) ?Left?Ventricle: Left [...] mid anterior, mid inferolateral and mid anterolateral. [facility] with pnkmjri7204-14-20 19:46:22EXAMINATION: ULTRASOUND GUIDED THORACENTESIS HISTORY/INDICATION: 63 years-old male with left pleural effusion. FACULTY: Brennan Nesbitt M.D. SEDATION: The patient did not require conscious sedation forthe procedure. Local lidocaine was administered. TECHNIQUE: The risks, benefits and alternatives were discussed and informedconsent was obtained. Prior to beginning the procedure, [place] Protocolwas performed to confirm the patient's identity [...] Ultrasound demonstrated a large amount of pleural fluid.[facility] Thoracentesis with rdkleyd2484-02-77 19:46:22EXAMINATION: ULTRASOUND GUIDED THORACENTESIS HISTORY/INDICATION: 63 years-old male with left pleural effusion. FACULTY: Brennan Nesbitt M.D. SEDATION: The patient did not require conscious sedation forthe procedure. Local lidocaine was administered. TECHNIQUE: The risks, benefits and alternatives were discussed and informedconsent was obtained. Prior to beginning the procedure, [place] Protocolwas performed to confirm the patient's identity [...] Ultrasound demonstrated a large amount of pleural fluid.[facility]POCT GLU[facility]SE (AUTOMATED)2024-05-07 17:29:49* Test Item Value Reference Range Interpretation Comme nts POCT GLU (test code = 9727493633) 122 mg/dL 70-110 H Lab Interpretation (test cod e = 06170-9) Abnormal [facility] GLUCOSE (AUTOMATED)2024-05-07 17:29:49* Test Item Value Reference Range Interpretation Comme nts POCT GLU (test code = 6235842695) 122 mg/dL 70-110 H Lab Interpretation (test cod e = 06774-8) [facility] Spev9223-24-76 16:04:41HISTORY: Post paracentesis. TECHNIQUE: Portable AP view [...] with small residual bilateral pleuraleffusion. [facility] pneumothorax[facility] Mtcc7093-40-39 16:04:41HISTORY: Post paracentesis. TECHNIQUE: Portable AP view [...] with small residual bilateral pleuraleffusion. No pneumothorax. [facility] GLUCOSE (AUTOMATED)2024-05-07 14:04:49* Test Item Value Reference Range Interpretation Comme nts POCT GLU (test code = 9419971047) 104 mg/dL 70-110 Lab Interpretation (test cod e = 53768-3) Normal [facility] GLUCOSE (AUTOMATED)2024-05-07 14:04:49* Test Item Value Reference Range Interpretation Comme nts POCT GLU (test code = 4038584930) 104 mg/dL 70-110 Lab Interpretation (test cod e = 92557-3) Normal [facility]N-Terminal Byt-Esh7612-40-15 13:27:29* Test Item Value Reference Range Interpretation Comme nts NT-proBNP (test code = 58570-9) 47431 pg/mL <=125 H KELLE (test code = KELLE) Positive: Heart Failure Likely Lab Interpretation (test code = 92720-1) Abnormal [facility]N-Terminal Tvt-Smx7379-57-15 13:27:29* Test Item Value Reference Range Interpretation Comme nts NT-proBNP (test code = 97404-3) 42999 pg/mL <=125 H KELLE (test code = KELLE) Positive: Heart Failure Likely Lab Interpretation (test code = 83107-7) Abnormal [facility] [id number] 13:13:55* Test Item Value Reference Range Interpretation Comme nts TROPONIN I (test code = 4383449136) 0.035 ng/mL <=0.034 H KELLE (test code [...] of biotin. Lab Interpretation (test code = 26474-5) Abnormal [facility] [id number] 13:13:55* Test Item Value Reference Range Interpretation Comme nts TROPONIN I (test code = 1667289068) 0.035 ng/mL <=0.034 H KELLE (test code [...] of biotin. Lab Interpretation (test code = 47607-4) Abnormal [facility] Metabolic Panel (NA, K, CL, CO2, GLUCOSE, BUN, CREATININE, CA)2024-05-07 13:06:33* Test Item Value Reference Range Interpretation Comme nts NA (test code = 0399088148) 139 mmol/L 135-145 K (test code = 0829011332) 4.2 mmol/L 3.5-5.0 CL (test code = 5871685663) 108 mmol/L 98-108 CO2 TOTAL (test code = 7905417871) 25 mmol/L 23-31 AGAP (test code = 6151157032) 6 2-16 BUN (test code = 6448595290) 75 mg/dL 7-23 H GLUCOSE (test code = 3196410132) 85 mg/dL 70-110 CREATININE (test code = 2160-0) 4.08 mg/dL 0.60-1.25 H CALCIUM (test code = 7779765861) 8.6 mg/dL 8.6-10.6 eGFR (test code = 17651-0) 15.7 mL/min/1.73m2 CKD-EPI eGFR (2020). Assuming creatinine has been stable day-to-day for at least three months, the eGFR indicates Category G4 (15 - 29 mL/min/1.73 m2) Lab Interpretation (test code = 54273-0) [facility]normal [facility] CampusMagnesium2025-01-15 13:06:33* Test Item Value Reference Range Interpretation Comme nts MAGNESIUM (test code = 4039935645) 1.9 mg/dL 1.7-2.4 Lab Interpretation (test cod e = 28412-6) Normal [facility] Metabolic Panel (NA, K, CL, CO2, GLUCOSE, BUN, CREATININE, CA)2024-05-07 13:06:33* Test Item Value Reference Range Interpretation Comme nts NA (test code = 7541609192) 139 mmol/L 135-145 K (test code = 4554262473) 4.2 mmol/L 3.5-5.0 CL (test code = 0590855334) 108 mmol/L 98-108 CO2 TOTAL (test code = 4666731044) 25 mmol/L 23-31 AGAP (test code = 1741250513) 6 2-16 BUN (test code = 9871101423) 75 mg/dL 7-23 H GLUCOSE (test code = 2879088882) 85 mg/dL 70-110 CREATININE (test code = 2160-0) 4.08 mg/dL 0.60-1.25 H CALCIUM (test code = 8526166157) 8.6 mg/dL 8.6-10.6 eGFR (test code = 49950-6) 15.7 mL/min/1.73m2 CKD-EPI eGFR (2020). Assuming creatinine has been stable day-to-day for at least three months, the eGFR indicates Category G4 (15 - 29 mL/min/1.73 m2) Lab Interpretation (test code = 17412-5) [facility]normal [facility] CampusMagnesium2025-01-15 13:06:33* Test Item Value Reference Range Interpretation Comme nts MAGNESIUM (test code = 5174489413) 1.9 mg/dL 1.7-2.4 Lab Interpretation (test cod e = 34046-7) Normal [facility] CampusPhosphorus2025-01-15 13:05:53* Test Item Value Reference Range Interpretation Comme nts PHOSPHORUS (test code = 9848694506) 4.3 mg/dL 2.5-5.0 Lab Interpretation (test cod e = 78426-8) Normal [facility] CampusPhosphorus2025-01-15 13:05:53* Test Item Value Reference Range Interpretation Comme nts PHOSPHORUS (test code = 0492984662) 4.3 mg/dL 2.5-5.0 Lab Interpretation (test cod e = 11395-4) Normal [facility] CampusCbc without Jegp1654-50-10 12:16:04* Test Item Value Reference Range Interpretation [...] 777-3) 174 150-328 MPV (test code = 73228-5) 11.4 fL 9.8-13.0 RDW-CV (test code = 788-0) 13.2 % 12.1-15.4 RDW-SD (test code = 47476-3) 45.6 fL 38.5-51.6 NRBC x10^3 (test code = 7959581940) See_Comment [Automated messa ge] The system which generated this result transmitted reference range: 10*3/?L. The reference range was not used to interpret this result as normal/abnormal. NRBC/100 WBC (test code = 9644601561) 0.0 0.0-10.0 IPF % (test code = 8812140002) Lab Interpretation (test code = 88207-3) Abnormal [facility] without Epew3663-17-40 12:16:04* Test Item Value Reference Range Interpretation [...] 777-3) 174 150-328 MPV (test code = 19769-3) 11.4 fL 9.8-13.0 RDW-CV (test code = 788-0) 13.2 % 12.1-15.4 RDW-SD (test code = 66207-1) 45.6 fL 38.5-51.6 NRBC x10^3 (test code = 1570135631) See_Comment [Automated messa ge] The system which generated this result transmitted reference range: 10*3/?L. The reference range was not used to interpret this result as normal/abnormal. NRBC/100 WBC (test code = 9889609470) 0.0 0.0-10.0 IPF % (test code = 9328633304) Lab Interpretation (test code = 09514-3) [facility]24-[facility]-07 04:04:13* Test Item Value Reference Range Interpretation Comme nts HGB A1C (test code = 4548-4) 6.6 % 4.0-5.7 H KELLE (test code = KELLE) Reference RangesNormal: <5.7%Prediabetes: 5.7 - 6.4%Diabetes: > 6.5% Lab Interpretation (test code = 39814-1) [facility]normal [facility]A1C[facility]2024-05-07 04:04:13* Test Item Value Reference Range Interpretation Comme nts HGB A1C (test code = 4548-4) 6.6 % 4.0-5.7 H KELLE (test code = KELLE) Reference RangesNormal: <5.7%Prediabetes: 5.7 - 6.4%Diabetes: > 6.5% Lab Interpretation (test code = 90033-4) [facility] 1 [id number] 03:19:07EXAM: XR CHEST 1 VW HISTORY: 63 years-old Male; dyspnea COMPARISON: CXR dated 01/30/2024 FINDINGS: Lines/Devices: Unchanged position of unipolar pacemaker projecting over theleft chest wall with its lead projecting over the right ventricle with thetip partially out of the muvcm-gz-vyyu.. Lungs: The lung volumes are normal on the right and decreased on the left.Mild interval worsening of moderate-sized left pleural effusion withassociated atelectasis. Right-sided patchy infrahilar opacities partiallyobscure the right heart border. Biapical pleural parenchymal scarring isseen. No pneumothorax. Heart/Mediastinum: The cardiomediastinal silhouette is partially obscured. Bones and soft tissues: Noacute osseous findings are detected. Sternotomywires appear intact and unchanged in position [facility] 1 [id number] 03:19:07EXAM: XR CHEST 1 VW HISTORY: 63 years-old Male; dyspnea COMPARISON: CXR dated 01/30/2024 FINDINGS: Lines/Devices: Unchanged position of unipolar pacemaker projecting over theleft chest wall with its lead projecting over the right ventricle with thetip partially out of the eqzsw-cv-rcam.. Lungs: The lung volumes are normal on the right and decreased on the left.Mild interval worsening of moderate-sized left pleural effusion withassociated atelectasis. Right-sided patchy infrahilar opacities partiallyobscure the right heart border. Biapical pleural parenchymal scarring isseen. No pneumothorax. Heart/Mediastinum: The cardiomediastinal silhouette is partially obscured. Bones and soft tissues: Noacute osseous findings are detected. Sternotomywires appear intact and unchanged in position [facility] GLUCOSE (AUTOMATED)2024-05-07 02:36:45* Test Item Value Reference Range Interpretation Comme nts POCT GLU (test code = 5421903995) 186 mg/dL 70-110 H Lab Interpretation (test cod e = 57488-2) Abnormal [facility] GLUCOSE (AUTOMATED)2024-05-07 02:36:45* Test Item Value Reference Range Interpretation Comme nts POCT GLU (test code = 6486772635) 186 mg/dL 70-110 H Lab Interpretation (test cod e = 93067-3) [facility]normal [facility] CampusMagnesium2025-01-15 02:06:54* Test Item Value Reference Range Interpretation Comme nts MAGNESIUM (test code = 5269491182) 1.9 mg/dL 1.7-2.4 Lab Interpretation (test cod e = 13259-0) Normal [facility]Phosphorus2025-01-15 02:06:54* Test Item Value Reference Range Interpretation Comme nts PHOSPHORUS (test code = 9454275375) 4.4 mg/dL 2.5-5.0 Lab Interpretation (test cod e = 53026-0) [facility] CampusMagnesium2025-01-15 02:06:54* Test Item Value Reference Range Interpretation Comme nts MAGNESIUM (test code = 6002205409) 1.9 mg/dL 1.7-2.4 Lab Interpretation (test cod e = 24947-9) [facility]2025-01-15 02:06:54* Test Item Value Reference Range Interpretation Comme nts PHOSPHORUS (test code = 1944709359) 4.4 mg/dL 2.5-5.0 Lab Interpretation (test cod e = 12058-5) [facility]MINAL [id number] 01:43:06* Test Item Value Reference Range Interpretation Comme nts NT-proBNP (test code = 85832-5) 54678 pg/mL <=125 H KELLE (test code = KELLE) Positive: Heart Failure Likely Lab Interpretation (test code = 36642-9) [facility]normal [facility]MINAL [id number] 01:43:06* Test Item Value Reference Range Interpretation Comme nts NT-proBNP (test code = 78523-5) 51671 pg/mL <=125 H KELLE (test code = KELLE) Positive: Heart Failure Likely Lab Interpretation (test code = 49013-7) [facility]normal [facility] CampusTROPONIN [id number] 01:01:47* Test Item Value Reference Range Interpretation Comme nts TROPONIN I (test code = 3900019283) 0.019 ng/mL <=0.034 KELLE (test code = [...] of biotin. Lab Interpretation (test code = 91107-4) [facility]TR[facility] [id number] 01:01:47* Test Item Value Reference Range Interpretation Comme nts TROPONIN I (test code = 0232173479) 0.019 ng/mL <=0.034 KELLE (test code = [...] of biotin. Lab Interpretation (test code = 12281-1) [facility] CampusCOMP. METABOLIC PANEL (55714)2024-05-07 00:50:24* Test Item Value Reference Range Interpretation Comme nts NA (test code = 4661020828) 141 mmol/L 135-145 K (test code = 8832590682) 4.6 mmol/L 3.5-5.0 CL (test code = 7519192119) 107 mmol/L 98-108 CO2 TOTAL (test code = 3759253651) 24 mmol/L 23-31 AGAP (test code = 0424049868) 10 2-16 BUN (test code = 2594015291) 72 mg/dL 7-23 H GLUCOSE (test code = 2416722888) 223 mg/dL 70-110 H CREATININE (test code = 2160-0) 4.11 mg/dL 0.60-1.25 H TOTAL BILI (test code = 2544854506) 0.7 mg/dL 0.1-1.1 CALCIUM (test code = 5357592432) 9.5 mg/dL 8.6-10.6 T PROTEIN (test code = 9184533760) 8.7 g/dL 6.3-8.2 H ALBUMIN (test code = 2272238963) 4.5 g/dL 3.5-5.0 ALK PHOS (test code = 2042214279) 127 U/L 34-122 H ALTv (test code = 1742-6) 18 U/L 5-50 AST(SGOT) (test code = 8943911245) 26 U/L 13-40 eGFR (test code = 12182-0) 15.6 mL/min/1.73m2 CKD-EPI eGFR (2020). Assuming creatinine has been stable day-to-day for at least three months, the eGFR indicates Category G4 (15 - 29 mL/min/1.73 m2) Lab Interpretation (test code = 75260-9) Abnormal [facility]. METABOLIC PANEL (96749)2024-05-07 00:50:24* Test Item Value Reference Range Interpretation Comme nts NA (test code = 5259760694) 141 mmol/L 135-145 K (test code = 2919536706) 4.6 mmol/L 3.5-5.0 CL (test code = 4153881645) 107 mmol/L 98-108 CO2 TOTAL (test code = 4634947251) 24 mmol/L 23-31 AGAP (test code = 4227910539) 10 2-16 BUN (test code = 1900605267) 72 mg/dL 7-23 H GLUCOSE (test code = 5772744956) 223 mg/dL 70-110 H CREATININE (test code = 2160-0) 4.11 mg/dL 0.60-1.25 H TOTAL BILI (test code = 2120006871) 0.7 mg/dL 0.1-1.1 CALCIUM (test code = 9013702483) 9.5 mg/dL 8.6-10.6 T PROTEIN (test code = 9103007396) 8.7 g/dL 6.3-8.2 H ALBUMIN (test code = 7469960921) 4.5 g/dL 3.5-5.0 ALK PHOS (test code = 7912244423) 127 U/L 34-122 H ALTv (test code = 1742-6) 18 U/L 5-50 AST(SGOT) (test code = 2740232779) 26 U/L 13-40 eGFR (test code = 08696-0) 15.6 mL/min/1.73m2 CKD-EPI eGFR (2020). Assuming creatinine has been stable day-to-day for at least three months, the eGFR indicates Category G4 (15 - 29 mL/min/1.73 m2) Lab Interpretation (test code = 38625-8) Abnormal [facility] WITH [id number] 00:36:04* Test Item Value Reference Range Interpretation [...] 32.4 g/dL 31.2-35.0 RDW-SD (test code = 92592-6) 47.1 fL 38.5-51.6 RDW-CV (test code = 788-0) 13.2 % 12.1-15.4 PLT (test code = 777-3) 202 150-328 MPV (test code = 70234-4) 11.6 fL 9.8-13.0 NRBC/100 WBC (test code = 5007642531) 0.0 0.0-10.0 NRBC x10^3 (test code = 5148968904) See_Comment [Automated messa ge] The system which generated this result transmitted reference range: 10*3/?L. The reference range was not used to interpret this result as normal/abnormal. GRAN MAT (NEUT) % (test code = 770-8) 79.4 % IMM GRAN % (test code = 2613777202) 0.40 % LYMPH % (test code = 736-9) 8.5 % MONO % (test code = 5905-5) 8.5 % EOS % (test code = 713-8) 2.7 % BASO % (test code = 706-2) 0.5 % GRAN MAT x10^3(ANC) (test code = 8903069476) 4.50 10*3/uL 1.99-6.95 IMM GRAN x10^3 (test code = 6512935044) 0.00-0.06 LYMPH x10^3 (test code = 731-0) 0.48 10*3/uL 1.09-3.23 L MONO x10^3 (test code = 742-7) 0.48 10*3/uL 0.36-1.02 EOS x10^3 (test code = 711-2) 0.15 10*3/uL 0.06-0.53 BASO x10^3 (test code = 704-7) 0.03 10*3/uL 0.01-0.09 Lab Interpretation (test code = 62594-2) Abnormal [facility] WITH [id number] 00:36:04* Test Item Value Reference Range Interpretation [...] 32.4 g/dL 31.2-35.0 RDW-SD (test code = 65847-8) 47.1 fL 38.5-51.6 RDW-CV (test code = 788-0) 13.2 % 12.1-15.4 PLT (test code = 777-3) 202 150-328 MPV (test code = 09645-2) 11.6 fL 9.8-13.0 NRBC/100 WBC (test code = 6222032581) 0.0 0.0-10.0 NRBC x10^3 (test code = 3279789857) See_Comment [Automated messa ge] The system which generated this result transmitted reference range: 10*3/?L. The reference range was not used to interpret this result as normal/abnormal. GRAN MAT (NEUT) % (test code = 770-8) 79.4 % IMM GRAN % (test code = 8755397167) 0.40 % LYMPH % (test code = 736-9) 8.5 % MONO % (test code = 5905-5) 8.5 % EOS % (test code = 713-8) 2.7 % BASO % (test code = 706-2) 0.5 % GRAN MAT x10^3(ANC) (test code = 6992241634) 4.50 10*3/uL 1.99-6.95 IMM GRAN x10^3 (test code = 5193978995) 0.00-0.06 LYMPH x10^3 (test code = 731-0) 0.48 10*3/uL 1.09-3.23 L MONO x10^3 (test code = 742-7) 0.48 10*3/uL 0.36-1.02 EOS x10^3 (test code = 711-2) 0.15 10*3/uL 0.06-0.53 BASO x10^3 (test code = 704-7) 0.03 10*3/uL 0.01-0.09 Lab Interpretation (test code = 83052-0) [facility] 3 [id number] 20:43:39Exam: XR LUMBAR SPINE 3 VW, 02/18/2024 2:15 PM. Ordering Physician: JAKI DOWNS. History: back pain . Technique: XR LUMBAR SPINE 3 VW Comparison: None. Findings: Preserved vertebral body heights. No acute fracture. Degenerative changesas evidence by endplate osteophyte formation of L1-L5. Preserved disc heights. No traumatic malalignment. Soft tissues are unremarkable.[facility] THORACIC SPINE 2 [id number] 20:19:06XR THORACIC SPINE 2 VW HISTORY: back [...] osteophytosis. The sacral and visualized pelviccortices are intact.[facility] CampusCOMPREHENSIVE METABOLIC [id number] 00:00:00* Test Item Value Reference Range Interpretation Comme nts NUCLEATED RBCS (test code = 99050-2) 0.0 /100 WBC'S See_Comment [Automated message] The system which generated this result transmitted reference range: 0.0 /100 WBC'S. The reference range was not used to interpret this result as normal/abnormal. ABSOLUTE EOSINOPHILS (test code = 50278-7) 0.41 K/UL See_Comment [Automated message] The system which generated this result transmitted reference range: 0.00-0.50 K/UL. The reference range was not used to interpret this result as normal/abnormal. ABSOLUTE LYMPHOCYTES (test code = 24731-0) 0.60 K/UL See_Comment L [Automated message] The system which generated this result transmitted reference range: 1.00-4.00 K/UL. The reference range was not used to interpret this result as normal/abnormal. ABSOLUTE MONOCYTES (test code = 73559-1) 0.47 K/UL See_Comment [Automated message] The system which generated this result transmitted reference range: 0.20-1.00 K/UL. The reference range was not used to interpret this result as normal/abnormal. ABSOLUTE NEUTROPHILS (test code = 19164-8) 2.51 K/UL See_Comment [Automated message] The system which generated this result transmitted reference range: 1.50-7.50 K/UL. The reference range was not used to interpret this result as normal/abnormal. BASOPHILS (test code = 76254-3) 0.5 % EOSINOPHILS (test code = 21126-2) 10.2 % HEMATOCRIT (test code = 67339-9) 28.8 % See_Comment L [Automated messa ge] [...] result as normal/abnormal. LYMPHOCYTES (test code = 09678-0) 14.9 % MCH (test code = 36333-9) 32.1 PG See_Comment [Automated messa ge] The system which generated this result transmitted reference range: 25.0-33.0 PG. The reference range was not used to interpret this result as normal/abnormal. MCHC (test code = 60379-2) 31.9 G/DL See_Comment [Automated messa ge] The system which generated this result transmitted reference range: 31.0-36.0 G/DL. The reference range was not used to interpret this result as normal/abnormal. MCV (test code = 67173-5) 100.3 fL See_Comment H [Automated messa ge] The system which generated this result transmitted reference range: 80.0-99.0 fL. The reference range was not used to interpret this result as normal/abnormal. MONOCYTES (test code = 82548-3) 11.7 % NEUTROPHILS (test code = 33402-0) 62.5 % PLATELET COUNT (test code = 51839-8) 183 K/UL See_Comment [Automated messa ge] The system which generated this result transmitted reference range: 130-400 K/UL. The reference range was not used to interpret this result as normal/abnormal. RBC (test code = 35887-4) 2.87 M/UL See_Comment L [Automated messa ge] The system which generated this result transmitted reference range: 4.50-6.10 M/UL. The reference range was not used to interpret this result as normal/abnormal. RDW (test code = 48217-5) 14.5 % See_Comment [Automated messa ge] The system which generated this result transmitted reference range: 11.5-15.0 %. The reference range was not used to interpret this result as normal/abnormal. WBC (test code = 15003-3) 4.0 K/UL See_Comment [Automated messa ge] The [...] normal/abnormal. CALC LDL CHOL (test code = 56730-9) 31 MG/DL See_Comment [Automated messa ge] The [...] code = 2085-9) 44 MG/DL See_Comment [Automated messa ge] The system which generated this result transmitted reference range: >39 MG/DL. The reference range was not used to interpret this result as normal/abnormal. RISK RATIO LDL/HDL (test code = 62146-2) 0.70 RATIO See_Comment [Automated message] The system which generated this result transmitted reference range: <3.55 RATIO. The reference range was not used to interpret this result as normal/abnormal. TRIGLYCERIDES (test code = 2571-8) 48 MG/DL See_Comment [Automated messa ge] The system which generated this result transmitted reference range: <150 MG/DL. The reference range was not used to interpret this result as normal/abnormal. ALBUMIN, URINE, RANDOM (test code = 50380-9) 70.1 MG/DL NOT ESTAB MG/DL CALC ALBUMIN/CREAT, RND (test code = 66054-8) 1348 MG/G See_Comment H [Automated messa ge] The system which generated this result transmitted reference range: <30 MG/G. The reference range was not used to interpret this result as normal/abnormal. CREATININE, URINE, CONC. (test code = 2161-8) 52.0 MG/DL NOT ESTAB MG/DL ALBUMIN (test code = 1751-7) 3.8 G/DL See_Comment [Automated messa ge] The system [...] code = 1975-2) 0.4 MG/DL See_Comment [Automated messa ge] The system [...] result as normal/abnormal. CALCIUM (test code = 75483-2) 8.7 MG/DL See_Comment [Automated messa ge] The [...] as normal/abnormal. CALC GLOBULIN (test code = 74045-6) 3.2 G/DL See_Comment [Automated messa ge] The [...] normal/abnormal. eGFR (2020 CKD-EPI) (test code = 17375-4) 17 ML/MIN/1.73 See_Comment L [Automated message] The [...] code = 1920-8) 19 U/L See_Comment [Automated [employer]] The system which generated this result [...] to interpret this result as normal/abnormal. Troponin [id number] 00:54:41* Test Item Value Reference Range Interpretation Comme nts TROPONIN I (test code = 2210671987) 0.014 ng/mL <=0.034 KELLE (test code = [...] of biotin. Lab Interpretation (test code = 36014-0) [facility]TR[facility] [id number] 21:54:07* Test Item Value Reference Range Interpretation Comme nts TROPONIN I (test code = 7155137417) 0.014 ng/mL <=0.034 KELLE (test code = [...] of biotin. Lab Interpretation (test code = 79937-5) Normal [facility] CampusN-[facility]MINAL [id number] 21:51:49* Test Item Value Reference Range Interpretation Comme nts NT-proBNP (test code = 92517-0) 6830 pg/mL <=125 H KELLE (test code = KELLE) Positive: Heart Failure Likely Lab Interpretation (test code = 57730-1) Abnormal [facility] CampusMagnesium2024-10-09 21:43:25* Test Item Value Reference Range Interpretation Comme nts MAGNESIUM (test code = 4024979587) 1.6 mg/dL 1.7-2.4 L Lab Interpretation (test cod e = 09468-9) Abnormal [facility]. METABOLIC PANEL (67720)2024-01-30 21:43:04* Test Item Value Reference Range Interpretation Comme nts NA (test code = 6479794955) 134 mmol/L 135-145 L K (test code = 7738065101) 4.2 mmol/L 3.5-5.0 CL (test code = 4178062661) 103 mmol/L 98-108 CO2 TOTAL (test code = 8710077758) 21 mmol/L 23-31 L AGAP (test code = 1222344141) 10 2-16 BUN (test code = 5470097861) 59 mg/dL 7-23 H GLUCOSE (test code = 9391899797) 234 mg/dL 70-110 H CREATININE (test code = 2160-0) 3.98 mg/dL 0.60-1.25 H TOTAL BILI (test code = 8837889894) 0.5 mg/dL 0.1-1.1 CALCIUM (test code = 2464567256) 8.3 mg/dL 8.6-10.6 L T PROTEIN (test code = 5733639562) 7.4 g/dL 6.3-8.2 ALBUMIN (test code = 6892377426) 3.9 g/dL 3.5-5.0 ALK PHOS (test code = 5566464292) 125 U/L 34-122 H ALTv (test code = 1742-6) 14 U/L 5-50 AST(SGOT) (test code = 0547039732) 29 U/L 13-40 eGFR (test code = 98326-3) 16.2 mL/min/1.73m2 CKD-EPI eGFR (2020). Assuming creatinine has been stable day-to-day for at least three months, the eGFR indicates Category G4 (15 - 29 mL/min/1.73 m2) Lab Interpretation (test code = 42972-3) Abnormal [facility] WITH [id number] 21:31:03* Test Item Value Reference Range Interpretation [...] 32.5 g/dL 31.2-35.0 RDW-SD (test code = 57588-9) 52.5 fL 38.5-51.6 H RDW-CV (test code = 788-0) 14.5 % 12.1-15.4 PLT (test code = 777-3) 161 150-328 MPV (test code = 37279-3) 11.0 fL 9.8-13.0 NRBC/100 WBC (test code = 1987442730) 0.0 0.0-10.0 NRBC x10^3 (test code = 5135259998) See_Comment [Automated messa ge] The system which generated this result transmitted reference range: 10*3/?L. The reference range was not used to interpret this result as normal/abnormal. GRAN MAT (NEUT) % (test code = 770-8) 65.6 % IMM GRAN % (test code = 8889110091) 0.50 % LYMPH % (test code = 736-9) 13.1 % MONO % (test code = 5905-5) 9.4 % EOS % (test code = 713-8) 10.9 % BASO % (test code = 706-2) 0.5 % GRAN MAT x10^3(ANC) (test code = 1776909147) 2.65 10*3/uL 1.99-6.95 IMM GRAN x10^3 (test code = 6303434600) 0.00-0.06 LYMPH x10^3 (test code = 731-0) 0.53 10*3/uL 1.09-3.23 L MONO x10^3 (test code = 742-7) 0.38 10*3/uL 0.36-1.02 EOS x10^3 (test code = 711-2) 0.44 10*3/uL 0.06-0.53 BASO x10^3 (test code = 704-7) 0.01-0.09 Lab Interpretation (test code = 77677-2) [facility] 1 [id number] 21:30:43HISTORY: Chest pain. TECHNIQUE: 2 Portable AP [...] amount of pleural effusion suspected since 09/08/2023 study.[facility] CampusPHYSIAN [id number] 16:24:18Ordered by an unspecified provider.[facility] CampusPHYCAP[facility] [id number] 19:54:09 Ordered by an unspecified provider.[facility] CampusPHYDU[facility]ITALAN [id number] 19:52:22Ordered by an unspecified provider.[facility] W/AUTO [id number] 00:00:00* Test Item Value Reference Range Interpretation Comme nts NUCLEATED RBCS (test code = 23861-4) 0.0 /100 WBC'S See_Comment [Automated [employer]] The system which generated this result transmitted reference range: 0.0 /100 WBC'S. The reference range was not used to interpret this result as normal/abnormal. ABSOLUTE EOSINOPHILS (test code = 34672-3) 0.45 K/UL See_Comment [Automated [employer]] The system which generated this result transmitted reference range: 0.00-0.50 K/UL. The reference range was not used to interpret this result as normal/abnormal. ABSOLUTE LYMPHOCYTES (test code = 86686-2) 0.68 K/UL See_Comment L [Automated messa ge] The system which generated this result transmitted reference range: 1.00-4.00 K/UL. The reference range was not used to interpret this result as normal/abnormal. ABSOLUTE MONOCYTES (test code = 79233-1) 0.44 K/UL See_Comment [Automated messa ge] The system which generated this result transmitted reference range: 0.20-1.00 K/UL. The reference range was not used to interpret this result as normal/abnormal. ABSOLUTE NEUTROPHILS (test code = 26421-4) 4.02 K/UL See_Comment [Automated messa ge] The system which generated this result transmitted reference range: 1.50-7.50 K/UL. The reference range was not used to interpret this result as normal/abnormal. BASOPHILS (test code = 10126-5) 0.5 % EOSINOPHILS (test code = 44045-1) 8.0 % HEMATOCRIT (test code = 11502-1) 29.9 % See_Comment L [Automated messa ge] [...] result as normal/abnormal. LYMPHOCYTES (test code = 52075-8) 12.1 % MCH (test code = 59104-0) 32.9 PG See_Comment [Automated messa ge] The system which generated this result transmitted reference range: 25.0-33.0 PG. The reference range was not used to interpret this result as normal/abnormal. MCHC (test code = 60792-0) 32.4 G/DL See_Comment [Automated messa ge] The system which generated this result transmitted reference range: 31.0-36.0 G/DL. The reference range was not used to interpret this result as normal/abnormal. MCV (test code = 24103-2) 101.4 fL See_Comment H [Automated messa ge] The system which generated this result transmitted reference range: 80.0-99.0 fL. The reference range was not used to interpret this result as normal/abnormal. MONOCYTES (test code = 45042-6) 7.8 % NEUTROPHILS (test code = 08218-9) 71.2 % PLATELET COUNT (test code = 14441-7) 193 K/UL See_Comment [Automated messa ge] The system which generated this result transmitted reference range: 130-400 K/UL. The reference range was not used to interpret this result as normal/abnormal. RBC (test code = 16674-5) 2.95 M/UL See_Comment L [Automated messa ge] The system which generated this result transmitted reference range: 4.50-6.10 M/UL. The reference range was not used to interpret this result as normal/abnormal. RDW (test code = 82809-0) 13.7 % See_Comment [Automated messa ge] The system which generated this result transmitted reference range: 11.5-15.0 %. The reference range was not used to interpret this result as normal/abnormal. WBC (test code = 11588-4) 5.6 K/UL See_Comment [Automated messa ge] The system which generated this result transmitted reference range: 3.5-11.0 K/UL. The reference range was not used to interpret this result as normal/abnormal. POCT GLUCOSE (AUTOMATED)2023-09-08 16:11:25* Test Item Value Reference Range Interpretation Comme nts POCT GLU (test code = 1557515854) 138 mg/dL 70-110 H Lab Interpretation (test cod e = 36366-0) [facility]normal [facility] CampusLipase2024-05-18 13:18:43* Test Item Value Reference Range Interpretation Comme nts LIPASE (test code = 9189075582) 84 U/L 0-220 Lab Interpretation (test cod e = 47555-7) Normal [facility] CampusPOCT GLUCOSE (AUTOMATED)2023-09-08 12:44:54* Test Item Value Reference Range Interpretation Comme nts POCT GLU (test code = 7993649571) 98 mg/dL 70-110 Lab Interpretation (test cod e = 78151-1) Normal [facility] CampusCritical [id number] 11:50:30Tien Gross MD ? ? 09/08/2023 ?6:50 [...] separately billable procedures and treating other patients. [facility] CampusPOCT GLUCOSE (AUTOMATED)2023-09-08 11:49:43* Test Item Value Reference Range Interpretation Comme nts POCT GLU (test code = 7076010720) 80 mg/dL 70-110 Lab Interpretation (test cod e = 73727-4) Normal [facility] CampusTROPONIN [id number] 11:36:59* Test Item Value Reference Range Interpretation Comme nts TROPONIN I (test code = 5980904186) 0.019 ng/mL <=0.034 KELLE (test code = [...] of biotin. Lab Interpretation (test code = 01979-1) Normal [facility] CampusETHANOL2024-05-18 11:26:56* Test Item Value Reference Range Interpretation Comme nts ALCOHOL (test code = 9524511251) 13 mg/dL KELLE (test code = KELLE) <10 Fjzbwugg84-617 Toxic>100 Depression of [employer] ATTENDANT>400 Fatalities Reported [facility] CampusCOM. METABOLIC PANEL (78743)2023-09-08 11:26:16* Test Item Value Reference Range Interpretation Comme nts NA (test code = 2266752823) 133 mmol/L 135-145 L K (test code = 9068839979) 3.3 mmol/L 3.5-5.0 L CL (test code = 4075142786) 102 mmol/L 98-108 CO2 TOTAL (test code = 7806907741) 17 mmol/L 23-31 L AGAP (test code = 1304884663) 14 2-16 BUN (test code = 1154626929) 53 mg/dL 7-23 H GLUCOSE (test code = 6276413059) 99 mg/dL 70-110 CREATININE (test code = 2160-0) 3.35 mg/dL 0.60-1.25 H TOTAL BILI (test code = 9251640820) 0.4 mg/dL 0.1-1.1 CALCIUM (test code = 0378114769) 8.1 mg/dL 8.6-10.6 L T PROTEIN (test code = 4795395617) 7.3 g/dL 6.3-8.2 ALBUMIN (test code = 5553249220) 3.7 g/dL 3.5-5.0 ALK PHOS (test code = 6140192629) 124 U/L 34-122 H ALTv (test code = 1742-6) 12 U/L 5-50 AST(SGOT) (test code = 5049536098) 24 U/L 13-40 eGFR (test code = 71396-9) 19.9 mL/min/1.73m2 CKD-EPI eGFR (2020). Assuming creatinine has been stable day-to-day for at least three months, the eGFR indicates Category G4 (15 - 29 mL/min/1.73 m2) Lab Interpretation (test code = 99115-8) [facility]2024-[facility] 11:25:56* Test Item Value Reference Range Interpretation Comme nts LIPASE (test code = 3688629015) 76 U/L 0-220 Lab Interpretation (test cod e = 35403-5) Normal [facility] CampusCB WITH [id number] 10:47:57* Test Item Value Reference Range Interpretation [...] 32.9 g/dL 31.2-35.0 RDW-SD (test code = 88565-9) 53.2 fL 38.5-51.6 H RDW-CV (test code = 788-0) 14.6 % 12.1-15.4 PLT (test code = 777-3) 212 150-328 MPV (test code = 75282-0) 11.2 fL 9.8-13.0 NRBC/100 WBC (test code = 1816263087) 0.0 0.0-10.0 NRBC x10^3 (test code = 5296606324) See_Comment [Automated messa ge] The system which generated this result transmitted reference range: 10*3/?L. The reference range was not used to interpret this result as normal/abnormal. GRAN MAT (NEUT) % (test code = 770-8) 73.4 % IMM GRAN % (test code = 4289140570) 0.00 % LYMPH % (test code = 736-9) 12.4 % MONO % (test code = 5905-5) 8.1 % EOS % (test code = 713-8) 5.4 % BASO % (test code = 706-2) 0.7 % GRAN MAT x10^3(ANC) (test code = 4354262974) 3.26 10*3/uL 1.99-6.95 IMM GRAN x10^3 (test code = 9653844411) 0.00-0.06 LYMPH x10^3 (test code = 731-0) 0.55 10*3/uL 1.09-3.23 L MONO x10^3 (test code = 742-7) 0.36 10*3/uL 0.36-1.02 EOS x10^3 (test code = 711-2) 0.24 10*3/uL 0.06-0.53 BASO x10^3 (test code = 704-7) 0.03 10*3/uL 0.01-0.09 Lab Interpretation (test code = 09431-6) [facility]normal [facility] CampusPOCO GLUCOSE (AUTOMATED)2023-09-08 10:33:40* Test Item Value Reference Range Interpretation Comme nts POCT GLU (test code = 3669646026) 108 mg/dL 70-110 Lab Interpretation (test cod e = 65018-2) Normal [facility] CampusN-TERMINAL [id number] 23:41:14* Test Item Value Reference Range Interpretation Comme nts NT-proBNP (test code = 60790-7) 5770 pg/mL <=125 H KELLE (test code = KELLE) Positive: Heart Failure Likely Lab Interpretation (test code = 25729-5) [facility]normal [facility]21565[facility]NA, K, CL, CO2, GLUCOSE, BUN, CREATININE, CA)2023-04-06 23:32:54* Test Item Value Reference Range Interpretation Comme nts NA (test code = 8340365673) 137 mmol/L 135-145 K (test code = 0344616884) 4.0 mmol/L 3.5-5.0 CL (test code = 2997387062) 99 mmol/L 98-108 CO2 TOTAL (test code = 8495844845) 26 mmol/L 23-31 AGAP (test code = 1394152585) 12 2-16 BUN (test code = 7171848151) 44 mg/dL 7-23 H GLUCOSE (test code = 5922742736) 152 mg/dL 70-110 H CREATININE (test code = 6819558204) 2.85 mg/dL 0.60-1.25 H CALCIUM (test code = 1268953157) 8.9 mg/dL 8.6-10.6 eGFR (test code = 96288-9) 24.4 mL/min/1.73m2 CKD-EPI eGFR (2020). Assuming creatinine has been stable day-to-day for at least three months, the eGFR indicates Category G4 (15 - 29 mL/min/1.73 m2) Lab Interpretation (test code = 32324-4) [facility]normal [facility] CampusProthrombin Time / [id number] 13:30:06* Test Item Value Reference Range Interpretation Comme nts PROTIME PATIENT (test code = 5964-2) 13.0 See_Comment H [Automated messa [employer]] The system which generated this result transmitted reference range: 10.1 - 12.6 Seconds. The reference range was not used to interpret this result as normal/abnormal. INR (test code = 6301-6) 1.1 Normal INR <1.1; Warfarin Therapeutic range 2.0 to 3.0 or 2.5 to 3.5, depending upon the indications. Lab Interpretation (test code = 43358-8) [facility]normal [facility] CampusCBC WITH [id number] 13:29:06* Test Item Value Reference Range Interpretation Comme nts WBC (test code = 6690-2) 5.70 See_Comment [Automated messa ge] The system which generated this result transmitted reference range: 4.20 - 10.70 10*3/?L. The reference range was not used to interpret this result as normal/abnormal. RBC (test code = 789-8) 2.58 See_Comment L [Automated messa ge] The system [...] 32.9 g/dL 31.2-35.0 RDW-SD (test code = 97950-0) 50.8 fL 38.5-51.6 RDW-CV (test code = 788-0) 15.0 % 12.1-15.4 PLT (test code = 777-3) 224 See_Comment [Automated messa ge] The system which generated this result transmitted reference range: 150 - 328 10*3/?L. The reference range was not used to interpret this result as normal/abnormal. MPV (test code = 07219-4) 10.4 fL 9.8-13.0 NRBC/100 WBC (test code = 3895230198) 0.0 See_Comment [Automated [employer]] The system which generated this result transmitted reference range: 0.0 - 10.0 /100 WBCs. The reference range was not used to interpret this result as normal/abnormal. NRBC x10^3 (test code = 5726806645) See_Comment [Automated messa ge] The system which generated this result transmitted reference range: 10*3/?L. The reference range was not used to interpret this result as normal/abnormal. GRAN MAT (NEUT) % (test code = 770-8) 69.2 % IMM GRAN % (test code = 3432458703) 0.20 % LYMPH % (test code = 736-9) 12.1 % MONO % (test code = 5905-5) 9.1 % EOS % (test code = 713-8) 8.9 % BASO % (test code = 706-2) 0.5 % GRAN MAT x10^3(ANC) (test code = 4600188946) 3.94 10*3/uL 1.99-6.95 IMM GRAN x10^3 (test code = 4746702722) 0.00-0.06 LYMPH x10^3 (test code = 731-0) 0.69 10*3/uL 1.09-3.23 L MONO x10^3 (test code = 742-7) 0.52 10*3/uL 0.36-1.02 EOS x10^3 (test code = 711-2) 0.51 10*3/uL 0.06-0.53 BASO x10^3 (test code = 704-7) 0.03 10*3/uL 0.01-0.09 Lab Interpretation (test code = 45768-7) Abnormal [facility] CampusPULMONARY FUNCTION TEST (RESULTS)2023-03-29 19:02:34* Test Item Value Reference Range Interpretation Comme nts FVC Actual (test code = 3994) 2.42 L FEV1 Actual (test code = 3993) 1.61 L FEV1/FVC Actual (test code = 3995) 66 % [facility] CampusCBC W/AUTO [id number] 00:00:00* Test Item Value Reference Range Interpretation Comme nts NUCLEATED RBCS (test code = 58428-5) 0.0 /100 WBC'S See_Comment [Automated messa ge] The system which generated this result transmitted reference range: 0.0 /100 WBC'S. The reference range was not used to interpret this result as normal/abnormal. ABSOLUTE EOSINOPHILS (test code = 40259-2) 0.24 K/UL See_Comment [Automated messa ge] The system which generated this result transmitted reference range: 0.00-0.50 K/UL. The reference range was not used to interpret this result as normal/abnormal. ABSOLUTE LYMPHOCYTES (test code = 65963-6) 0.63 K/UL See_Comment L [Automated messa ge] The system which generated this result transmitted reference range: 1.00-4.00 K/UL. The reference range was not used to interpret this result as normal/abnormal. ABSOLUTE MONOCYTES (test code = 86391-3) 0.49 K/UL See_Comment [Automated messa ge] The system which generated this result transmitted reference range: 0.20-1.00 K/UL. The reference range was not used to interpret this result as normal/abnormal. ABSOLUTE NEUTROPHILS (test code = 26952-7) 4.42 K/UL See_Comment [Automated messa ge] The system which generated this result transmitted reference range: 1.50-7.50 K/UL. The reference range was not used to interpret this result as normal/abnormal. BASOPHILS (test code = 30664-7) 0.5 % EOSINOPHILS (test code = 53809-6) 4.1 % HEMATOCRIT (test code = 54633-9) 28.8 % See_Comment L [Automated messa ge] [...] result as normal/abnormal. LYMPHOCYTES (test code = 89148-0) 10.8 % MCH (test code = 80400-2) 30.5 PG See_Comment [Automated messa ge] The system which generated this result transmitted reference range: 25.0-33.0 PG. The reference range was not used to interpret this result as normal/abnormal. MCHC (test code = 66590-2) 32.6 G/DL See_Comment [Automated messa ge] The system which generated this result transmitted reference range: 31.0-36.0 G/DL. The reference range was not used to interpret this result as normal/abnormal. MCV (test code = 00710-5) 93.5 fL See_Comment [Automated messa ge] The system which generated this result transmitted reference range: 80.0-99.0 fL. The reference range was not used to interpret this result as normal/abnormal. MONOCYTES (test code = 56378-9) 8.4 % NEUTROPHILS (test code = 82695-5) 75.9 % PLATELET COUNT (test code = 95352-3) 265 K/UL See_Comment [Automated messa ge] The system which generated this result transmitted reference range: 130-400 K/UL. The reference range was not used to interpret this result as normal/abnormal. RBC (test code = 80958-2) 3.08 M/UL See_Comment L [Automated messa ge] The system which generated this result transmitted reference range: 4.50-6.10 M/UL. The reference range was not used to interpret this result as normal/abnormal. RDW (test code = 16754-9) 13.8 % See_Comment [Automated messa ge] The system which generated this result transmitted reference range: 11.5-15.0 %. The reference range was not used to interpret this result as normal/abnormal. WBC (test code = 73381-0) 5.8 K/UL See_Comment [Automated messa ge] The system which generated this result transmitted reference range: 3.5-11.0 K/UL. The reference range was not used to interpret this result as normal/abnormal. POCT GLUCOSE (AUTOMATED)2023-01-17 16:40:03* Test Item Value Reference Range Interpretation Comme nts POCT GLU (test code = 4532904288) 240 mg/dL 70-110 H Lab Interpretation (test cod e = 00363-3) Abnormal [facility] GLUCOSE (AUTOMATED)2023-01-17 12:54:13* Test Item Value Reference Range Interpretation Comme nts POCT GLU (test code = 7421492726) 123 mg/dL 70-110 H Lab Interpretation (test cod e = 63565-9) Abnormal [facility] GLUCOSE (AUTOMATED)2023-01-17 08:52:33* Test Item Value Reference Range Interpretation Comme nts POCT GLU (test code = 9645175662) 87 mg/dL 70-110 Lab Interpretation (test cod e = 97951-5) Normal [facility] GLUCOSE (AUTOMATED)2023-01-17 08:01:45* Test Item Value Reference Range Interpretation Comme nts POCT GLU (test code = 1956915032) 54 mg/dL 70-110 L Lab Interpretation (test cod e = 29234-7) Abnormal [facility] GLUCOSE (AUTOMATED)2023-01-17 01:59:46* Test Item Value Reference Range Interpretation Comme nts POCT GLU (test code = 7614004431) 275 mg/dL 70-110 H Lab Interpretation (test cod e = 14531-5) Abnormal [facility] GLUCOSE (AUTOMATED)2023-01-16 21:43:09* Test Item Value Reference Range Interpretation Comme nts POCT GLU (test code = 7807729621) 96 mg/dL 70-110 Lab Interpretation (test cod e = 45907-3) Normal [facility] Protein Body [id number] 20:24:09* Test Item Value Reference Range Interpretation Comme nts T.PROT BF (test code = 0864595594) 1800.0 mg/dL UNSPUN BODY FLUID COLOR (test code = 4036027412) Light Yellow UNSPUN BODY FLUID CLARITY (test code = 2536452241) Clear SPUN BODY FLUID COLOR (test code = 1108951103) Light Yellow SPUN BODY FLUID CLARITY (test code = 1683991904) Clear Sediment (test code = 2542288822) The sediment volume is <0.01 mLs of the total fluid volume of 5 mLs and its color is red. KELLE (test code = KELLE) Test developed and characteristics determined by [facility] Laboratory Services. [facility] CampusBODY FLUID MANUAL [id number] 17:03:24* Test Item Value Reference Range Interpretation Comme nts BF SEGS% (test code = 57363-2) 25 % BF LYMPHS% (test code = 32158-3) 29 % BF MACROPHAGE% (test code = 16439-1) 43 % BF MESOS% (test code = 84428-2) 3 % BF #CELLS CNTD (test code = 8580509459) 100 cells/u L [facility] GLUCOSE (AUTOMATED)2023-01-16 16:46:08* Test Item Value Reference Range Interpretation Comme nts POCT GLU (test code = 2027335101) 152 mg/dL 70-110 H Lab Interpretation (test cod e = 90692-9) Abnormal [facility] CampusBODY FLUID DIRECT [id number] 16:27:50* Test Item Value Reference Range Interpretation Comme nts BF COLOR (test code = 9299096676) Light Yellow BF WBC Count (test code = 7485043993) 175 See_Comment [Automated messa ge] The system which generated this result transmitted reference range: /?L. The reference range was not used to interpret this result as normal/abnormal. BF RBC Count (test code = 6181851946) 1000 See_Comment [Automated messa ge] The system which generated this result transmitted reference range: /?L. The reference range was not used to interpret this result as normal/abnormal. KELLE (test code = KELLE) The reference range and other method performance specifications have not been established for this body fluid. ?The test results must be integrated into the clinical context for interpretation. [facility] CampusTransthoracic echo (TTE)2023-01-16 15:47:09* Test Item Value Reference Range Interpretation Comme nts Height (test code = 5613320375) 69 in Weight (test code = 4352979026) 164 lbs Systolic BP (test code = 5418415593) 159 mmHg Diastolic BP (test code = 2012019502) 84 mmHg Heart Rate (test code = 8200803759) 86 bpm BSA (test code = 8022776981) 1.90 m2 Ao root diam (test code = 5500922225) 3.30 cm Aortic root (test code = 4914024093) 3.3 cm Ao root annulus (test code = 5747084736) 3.3 cm LA size (test code = 5614262684) 4.3 cm LVOT diameter (test code = 0464257440) 1.99 cm LVOT area (test code = 3935113550) 3.10 cm2 TR Peak Sylvain (test code = 3476161462) 377.9 cm/s Triscuspid Valve Regurgitation Peak Gradient (test code = 0678585316) 57.1 mmHg MV Prop V (test code = 7229514667) 49.30 cm/s MV Peak E Sylvain (test code = 6333031383) 129.4 cm/s MV Peak A Sylvain (test code = 4568089547) 51.9 cm/s E/A ratio (test code = 1039116648) 2.49 ratio E wave decelartion time (test code = 5905577020) 0.13 s LAV(MOD-sp4) (test code = 5246884912) 79.00 mL Aortic valve mean velocity (test code = 4254051495) 97.7 cm/s Ao peak sylvain (test code = 1394652749) 136.5 cm/s Ao VTI (test code = 7693194908) 26.5 cm Ao max PG (test code = 3312431464) 7.50 mm[Hg] AV peak gradient (test code = 0235214329) 7.5 mmHg AV mean gradient (test code = 0219306312) 4.2 mmHg LVOT stroke volume (test code = 0087339057) 48.00 cm3 LVOT peak sylvain (test code = 2623059345) 83.3 cm/s LVOT mn grad (test code = 2149807348) 1.2 mmHg AV LVOT peak gradient (test code = 4527083952) 2.8 mmHg LVOT peak VTI (test code = 3163072700) 15.5 cm AV area by cont VTI (test code = 3690806221) 1.8 cm2 AV area peak sylvain (test code = 2785281607) 1.9 cm2 LV V1 mean (test code = 9833806724) 51.70 cm/s AV valve area (test code = 2655721341) 1.81 cm2 Tapse (test code = 7458130361) 1.75 cm LA Volume Index (BP) (test code = 9234159962) 46.4 mL/m2 LA volume (BP) (test code = 0792694464) 88.1 mL LAV(MOD-sp2) (test code = 6013203835) 82.80 mL IVS (test code = 8621757206) 0.77 cm Interventricular Septum Diastolic Thickness by 2D (test code = 9109522) 0.77 cm LVIDD (test code = 1725134054) 5.90 cm Left Ventricular End Diastolic Volume by Teichholz Method (test code = 4374276) 176.0 mL LVPWD (test code = 8878065685) 0.77 cm PW (test code = 6057997048) 0.77 cm 0.6-1.1 EF(Teich) (test code = 9451735294) 36.20 % LVIDS (test code = 7604515870) 4.90 cm Left Ventricular End Systolic Volume by Teichholz Method (test code = 3603934) 112.2 mL FS (test code = 2771937442) 18 % EF - 2D (test code = 81514483) 36.20 % Radiology Study observation (narrative) (test code = 42261-5) KELLE (test code = KELLE) ?Left?Ventricle: Left [...] mid anterior, mid inferolateral and mid anterolateral. [facility] 13:26:10* Test Item Value Reference Range Interpretation Comme nts POCT GLU (test code = 5691534686) 92 mg/dL 70-110 Lab Interpretation (test cod e = 94154-0) Normal [facility] CampusPO[facility]SE (AUTOMATED)2023-01-16 02:29:58* Test Item Value Reference Range Interpretation Comme nts POCT GLU (test code = 0206745919) 280 mg/dL 70-110 H Lab Interpretation (test cod e = 15282-6) Abnormal [facility] CampusTROPONIN [id number] 19:01:16* Test Item Value Reference Range Interpretation Comme nts TROPONIN I (test code = 6689739907) 0.023 ng/mL <=0.034 KELLE (test code = [...] of biotin. Lab Interpretation (test code = 49294-2) Normal [facility] CampusN-TERMINAL [id number] 18:58:33* Test Item Value Reference Range Interpretation Comme nts NT-proBNP (test code = 78287-8) 47581 pg/mL <=125 H KELLE (test code = KELLE) Positive: Heart Failure Likely Lab Interpretation (test code = 47643-9) Abnormal [facility] CampusCOMP. METABOLIC PANEL (94564)2023-01-15 18:49:53* Test Item Value Reference Range Interpretation Comme nts NA (test code = 6331103936) 139 mmol/L 135-145 K (test code = 2253420200) 4.0 mmol/L 3.5-5.0 CL (test code = 2532020205) 102 mmol/L 98-108 CO2 TOTAL (test code = 8251569215) 28 mmol/L 23-31 AGAP (test code = 7941286216) 9 2-16 BUN (test code = 5023058286) 48 mg/dL 7-23 H GLUCOSE (test code = 3457055107) 189 mg/dL 70-110 H CREATININE (test code = 6581828920) 2.63 mg/dL 0.60-1.25 H TOTAL BILI (test code = 6751740007) 0.5 mg/dL 0.1-1.1 CALCIUM (test code = 4489643370) 8.4 mg/dL 8.6-10.6 L T PROTEIN (test code = 0615052956) 7.5 g/dL 6.3-8.2 ALBUMIN (test code = 6064816373) 3.4 g/dL 3.5-5.0 L ALK PHOS (test code = 3923927950) 130 U/L 34-122 H ALTv (test code = 1742-6) 20 U/L 5-50 AST(SGOT) (test code = 6802711329) 31 U/L 13-40 eGFR (test code = 6072279931) 24.9 mL/min/1.73m2 KELLE (test code = KELLE) [...] imaging tests). Lab Interpretation (test code = 77720-0) Abnormal [facility] CampusACTIVATED PARTIAL THRMPLAS [id number] 18:45:30* Test Item Value Reference Range Interpretation Comme [facility] APTT Patient (test code = 3173-2) 36 See_Comment [Automated message] The system which generated this result transmitted reference range: 23 - 38 Seconds. The reference range was not used to interpret this result as normal/abnormal. KELLE (test code = KELLE) The [facility] patient population mean normal value for aPTT is 30 seconds. Lab Interpretation (test code = 35077-3) Normal [facility] CampusPROTHROMBIN TIME / [id number] 18:43:13* Test Item Value Reference Range Interpretation Comme [facility] PROTIME PATIENT (test code = 5964-2) 14.6 See_Comment [Automated [employer]] The system which generated this result transmitted reference range: 12.0 - 14.7 Seconds. The reference range was not used to interpret this result as normal/abnormal. INR (test code = 6301-6) 1.2 Normal INR <1.1; Warfarin Therapeutic range 2.0 to 3.0 or 2.5 to 3.5, depending upon the indications. Lab Interpretation (test code = 14549-2) Normal [facility] CampusCBC WITH [id number] 18:28:10* Test Item Value Reference Range Interpretation Comme [facility] WBC (test code = 6690-2) 6.18 See_Comment [Automated [employer]] The system which generated this result transmitted reference range: 4.20 - 10.70 10*3/?L. The reference range was not used to interpret this result as normal/abnormal. RBC (test code = 789-8) 3.17 See_Comment L [Automated [employer]] The system which generated this result transmitted [...] 32.4 g/dL 31.2-35.0 RDW-SD (test code = 65278-9) 49.1 fL 38.5-51.6 RDW-CV (test code = 788-0) 14.4 % 12.1-15.4 PLT (test code = 777-3) 220 See_Comment [Automated messa ge] The system which generated this result transmitted reference range: 150 - 328 10*3/?L. The reference range was not used to interpret this result as normal/abnormal. MPV (test code = 52023-7) 10.9 fL 9.8-13.0 NRBC/100 WBC (test code = 5983088404) 0.0 See_Comment [Automated [employer]] The system which generated this result transmitted reference range: 0.0 - 10.0 /100 WBCs. The reference range was not used to interpret this result as normal/abnormal. NRBC x10^3 (test code = 1587864964) See_Comment [Automated messa ge] The system which generated this result transmitted reference range: 10*3/?L. The reference range was not used to interpret this result as normal/abnormal. GRAN MAT (NEUT) % (test code = 770-8) 79.8 % IMM GRAN % (test code = 3570050557) 0.20 % LYMPH % (test code = 736-9) 8.6 % MONO % (test code = 5905-5) 8.1 % EOS % (test code = 713-8) 2.8 % BASO % (test code = 706-2) 0.5 % GRAN MAT x10^3(ANC) (test code = 6035237492) 4.94 10*3/uL 1.99-6.95 IMM GRAN x10^3 (test code = 9746816756) 0.00-0.06 LYMPH x10^3 (test code = 731-0) 0.53 10*3/uL 1.09-3.23 L MONO x10^3 (test code = 742-7) 0.50 10*3/uL 0.36-1.02 EOS x10^3 (test code = 711-2) 0.17 10*3/uL 0.06-0.53 BASO x10^3 (test code = 704-7) 0.03 10*3/uL 0.01-0.09 Lab Interpretation (test code = 74850-1) Abnormal [facility] W/AUTO [id number] 00:00:00* Test Item Value Reference Range Interpretation Comme nts NUCLEATED RBCS (test code = 05047-1) 0.0 /100 WBC'S See_Comment [Automated messa ge] The system which generated this result transmitted reference range: 0.0 /100 WBC'S. The reference range was not used to interpret this result as normal/abnormal. ABSOLUTE EOSINOPHILS (test code = 32005-7) 0.16 K/UL See_Comment [Automated messa ge] The system which generated this result transmitted reference range: 0.00-0.50 K/UL. The reference range was not used to interpret this result as normal/abnormal. ABSOLUTE LYMPHOCYTES (test code = 97451-1) 0.71 K/UL See_Comment L [Automated messa ge] The system which generated this result transmitted reference range: 1.00-4.00 K/UL. The reference range was not used to interpret this result as normal/abnormal. ABSOLUTE MONOCYTES (test code = 95933-0) 0.65 K/UL See_Comment [Automated messa ge] The system which generated this result transmitted reference range: 0.20-1.00 K/UL. The reference range was not used to interpret this result as normal/abnormal. ABSOLUTE NEUTROPHILS (test code = 90135-9) 3.67 K/UL See_Comment [Automated messa ge] The system which generated this result transmitted reference range: 1.50-7.50 K/UL. The reference range was not used to interpret this result as normal/abnormal. BASOPHILS (test code = 90808-9) 0.6 % EOSINOPHILS (test code = 43332-0) 3.1 % HEMATOCRIT (test code = 37515-9) 33.8 % See_Comment L [Automated messa ge] [...] result as normal/abnormal. LYMPHOCYTES (test code = 31440-6) 13.6 % MCH (test code = 32544-5) 29.6 PG See_Comment [Automated messa ge] The system which generated this result transmitted reference range: 25.0-33.0 PG. The reference range was not used to interpret this result as normal/abnormal. MCHC (test code = 27313-9) 30.8 G/DL See_Comment L [Automated messa ge] The system which generated this result transmitted reference range: 31.0-36.0 G/DL. The reference range was not used to interpret this result as normal/abnormal. MCV (test code = 87045-2) 96.3 fL See_Comment [Automated messa ge] The system which generated this result transmitted reference range: 80.0-99.0 fL. The reference range was not used to interpret this result as normal/abnormal. MONOCYTES (test code = 37323-5) 12.4 % NEUTROPHILS (test code = 94097-4) 70.1 % PLATELET COUNT (test code = 28128-9) 262 K/UL See_Comment [Automated messa ge] The system which generated this result transmitted reference range: 130-400 K/UL. The reference range was not used to interpret this result as normal/abnormal. RBC (test code = 41489-0) 3.51 M/UL See_Comment L [Automated messa ge] The system which generated this result transmitted reference range: 4.50-6.10 M/UL. The reference range was not used to interpret this result as normal/abnormal. RDW (test code = 98610-3) 14.3 % See_Comment [Automated messa ge] The system which generated this result transmitted reference range: 11.5-15.0 %. The reference range was not used to interpret this result as normal/abnormal. WBC (test code = 31974-8) 5.2 K/UL See_Comment [Automated messa ge] The system which generated this result transmitted reference range: 3.5-11.0 K/UL. The reference range was not used to interpret this result as normal/abnormal. POCT GLUCOSE (AUTOMATED)2022-07-11 20:27:38* Test Item Value Reference Range Interpretation Comme nts POCT GLU (test code = 7804418766) 238 mg/dL 70-110 H Lab Interpretation (test cod e = 66678-4) Abnormal [facility] GLUCOSE(AGE >30DAYS)2022-07-11 20:27:00* Test Item Value Reference Range Interpretation Comme nts POCT Glu (age>30days) (test code = 3342) 238 mg/dL 70-110 A Lab Interpretation (test cod e = 34042-8) Abnormal [facility] GLUCOSE (AUTOMATED)2022-05-23 17:49:01* Test Item Value Reference Range Interpretation Comme nts POCT GLU (test code = 9525402401) 255 mg/dL 70-110 H Lab Interpretation (test cod e = 96631-2) Abnormal [facility] GLUCOSE (AUTOMATED)2022-05-23 13:53:50* Test Item Value Reference Range Interpretation Comme nts POCT GLU (test code = 5835607365) 119 mg/dL 70-110 H Lab Interpretation (test cod e = 51932-0) Abnormal [facility] GLUCOSE (AUTOMATED)2022-05-23 10:55:26* Test Item Value Reference Range Interpretation Comme nts POCT GLU (test code = 1925613043) 74 mg/dL 70-110 Lab Interpretation (test cod e = 71392-6) Normal [facility] GLUCOSE (AUTOMATED)2022-05-23 10:55:26* Test Item Value Reference Range Interpretation Comme nts POCT GLU (test code = 3497655284) 104 mg/dL 70-110 Lab Interpretation (test cod e = 09175-4) Normal [facility] GLUCOSE (AUTOMATED)2022-05-23 10:12:43* Test Item Value Reference Range Interpretation Comme nts POCT GLU (test code = 8818930927) 137 mg/dL 70-110 H Lab Interpretation (test cod e = 61911-3) Abnormal [facility] GLUCOSE (AUTOMATED)2022-05-23 02:49:14* Test Item Value Reference Range Interpretation Comme nts POCT GLU (test code = 7730624223) 187 mg/dL 70-110 H Lab Interpretation (test cod e = 20200-0) Abnormal [facility] GLUCOSE (AUTOMATED)2022-05-22 22:40:24* Test Item Value Reference Range Interpretation Comme nts POCT GLU (test code = 2514466846) 157 mg/dL 70-110 H Lab Interpretation (test cod e = 36675-6) Abnormal [facility] GLUCOSE (AUTOMATED)2022-05-22 17:40:20* Test Item Value Reference Range Interpretation Comme nts POCT GLU (test code = 8217974916) 168 mg/dL 70-110 H Lab Interpretation (test cod e = 81597-9) Abnormal [facility] GLUCOSE (AUTOMATED)2022-05-22 13:31:16* Test Item Value Reference Range Interpretation Comme nts POCT GLU (test code = 1210488508) 123 mg/dL 70-110 H Lab Interpretation (test cod e = 91362-2) Abnormal [facility] GLUCOSE (AUTOMATED)2022-05-22 10:48:58* Test Item Value Reference Range Interpretation Comme nts POCT GLU (test code = 9208997818) 66 mg/dL 70-110 L Lab Interpretation (test cod e = 95115-3) Abnormal [facility] GLUCOSE (AUTOMATED)2022-05-22 10:33:51* Test Item Value Reference Range Interpretation Comme nts POCT GLU (test code = 6024864754) 102 mg/dL 70-110 Lab Interpretation (test cod e = 43227-0) Normal [facility] GLUCOSE (AUTOMATED)2022-05-22 02:29:52* Test Item Value Reference Range Interpretation Comme nts POCT GLU (test code = 0648957852) 210 mg/dL 70-110 H Lab Interpretation (test cod e = 94871-0) Abnormal [facility] GLUCOSE (AUTOMATED)2022-05-21 23:05:17* Test Item Value Reference Range Interpretation Comme nts POCT GLU (test code = 2482749363) 114 mg/dL 70-110 H Lab Interpretation (test cod e = 23623-6) Abnormal [facility] GLUCOSE (AUTOMATED)2022-05-21 17:22:57* Test Item Value Reference Range Interpretation Comme nts POCT GLU (test code = 3810338071) 168 mg/dL 70-110 H Lab Interpretation (test cod e = 33831-3) Abnormal [facility] GLUCOSE (AUTOMATED)2022-05-21 13:41:32* Test Item Value Reference Range Interpretation Comme nts POCT GLU (test code = 8021562543) 107 mg/dL 70-110 Lab Interpretation (test cod e = 89202-0) Normal [facility] GLUCOSE (AUTOMATED)2022-05-21 10:36:02* Test Item Value Reference Range Interpretation Comme nts POCT GLU (test code = 2241783888) 82 mg/dL 70-110 Lab Interpretation (test cod e = 30938-0) Normal [facility] GLUCOSE (AUTOMATED)2022-05-21 06:08:17* Test Item Value Reference Range Interpretation Comme nts POCT GLU (test code = 6022746516) 131 mg/dL 70-110 H Lab Interpretation (test cod e = 65150-3) Abnormal [facility] GLUCOSE (AUTOMATED)2022-05-21 02:34:12* Test Item Value Reference Range Interpretation Comme nts POCT GLU (test code = 5424988953) 230 mg/dL 70-110 H Lab Interpretation (test cod e = 90540-0) Abnormal [facility] GLUCOSE (AUTOMATED)2022-05-20 22:53:14* Test Item Value Reference Range Interpretation Comme nts POCT GLU (test code = 2907619050) 102 mg/dL 70-110 Lab Interpretation (test cod e = 36521-2) Normal [facility] GLUCOSE (AUTOMATED)2022-05-20 17:33:36* Test Item Value Reference Range Interpretation Comme nts POCT GLU (test code = 5886978526) 210 mg/dL 70-110 H Lab Interpretation (test cod e = 18797-8) Abnormal [facility] GLUCOSE (AUTOMATED)2022-05-20 14:33:47* Test Item Value Reference Range Interpretation Comme nts POCT GLU (test code = 9800140650) 157 mg/dL 70-110 H Lab Interpretation (test cod e = 70089-1) Abnormal [facility] GLUCOSE (AUTOMATED)2022-05-20 07:13:08* Test Item Value Reference Range Interpretation Comme nts POCT GLU (test code = 4614108807) 116 mg/dL 70-110 H Lab Interpretation (test cod e = 23396-1) Abnormal [facility] GLUCOSE (AUTOMATED)2022-05-20 03:12:25* Test Item Value Reference Range Interpretation Comme nts POCT GLU (test code = 8244825180) 213 mg/dL 70-110 H Lab Interpretation (test cod e = 97335-4) [facility]A1C)2022-05-20 01:29:37* Test Item Value Reference Range Interpretation Comme nts HGB A1C (test code = 4548-4) 8.2 % 4.0-5.7 H KELLE (test code = KELLE) Reference RangesNormal: <5.7%Prediabetes: 5.7 - 6.4%Diabetes: > 6.5% Lab Interpretation (test code = 46203-9) Abnormal [facility] GLUCOSE (AUTOMATED)2022-05-19 23:25:45* Test Item Value Reference Range Interpretation Comme nts POCT GLU (test code = 4167149421) 183 mg/dL 70-110 H Lab Interpretation (test cod e = 20983-7) [facility]normal [facility] [id number] 17:39:13* Test Item Value Reference Range Interpretation Comments TROPONIN I (test code = 0023618746) 0.022 ng/mL See_Comment [Automated message] The system [...] of biotin. Lab Interpretation (test code = 05536-2) Normal [facility] [id number] 17:36:11* Test Item Value Reference Range Interpretation Comme nts NT-proBNP (test code = 4209565123) 06701 pg/mL See_Comment H [Automated message] The system which generated this result transmitted reference range: <=125. The reference range was not used to interpret this result as normal/abnormal. KLELE (test code = KELLE) Biotin has been reported to cause a negative bias, interpret results relative to patient's use of biotin. Lab Interpretation (test code = 50843-5) Abnormal [facility]. METABOLIC PANEL (01842)2022-05-19 17:27:52* Test Item Value Reference Range Interpretation Comme nts NA (test code = 4840282368) 136 mmol/L 135-145 K (test code = 1291582549) 5.0 mmol/L 3.5-5.0 CL (test code = 6876160195) 101 mmol/L 98-108 CO2 TOTAL (test code = 7362112008) 27 mmol/L 23-31 AGAP (test code = 0993745833) 8 2-16 BUN (test code = 5811416566) 42 mg/dL 7-23 H GLUCOSE (test code = 9217932923) 254 mg/dL 70-110 H CREATININE (test code = 1085050215) 2.41 mg/dL 0.60-1.25 H TOTAL BILI (test code = 9700036699) 1.0 mg/dL 0.1-1.1 CALCIUM (test code = 4702261919) 8.5 mg/dL 8.6-10.6 L T PROTEIN (test code = 6903103494) 7.7 g/dL 6.3-8.2 ALBUMIN (test code = 9847086634) 3.7 g/dL 3.5-5.0 ALK PHOS (test code = 9367619748) 150 U/L 34-122 H ALTv (test code = 1742-6) 15 U/L 5-50 AST(SGOT) (test code = 4387052366) 26 U/L 13-40 eGFR (test code = 2422788817) 27.6 mL/min/1.73m2 KELLE (test code = KELLE) [...] imaging tests). Lab Interpretation (test code = 65518-6) [facility]normal [facility] 17:27:52* Test Item Value Reference Range Interpretation Comme nts MAGNESIUM (test code = 7008903986) 1.6 mg/dL 1.7-2.4 L Lab Interpretation (test cod e = 69584-6) Abnormal [facility] WITH [id number] 17:23:30* Test Item Value Reference Range Interpretation Comme nts WBC (test code = 6690-2) 5.84 See_Comment [Automated Atonometrics] The system which generated this result transmitted reference range: 4.20 - 10.70 10*3/?L. The reference range was not used to interpret this result as normal/abnormal. RBC (test code = 789-8) 3.81 See_Comment L [Automated messa ge] The system [...] 31.2 g/dL 31.2-35.0 RDW-SD (test code = 94807-9) 61.1 fL 38.5-51.6 H RDW-CV (test code = 788-0) 18.4 % 12.1-15.4 H PLT (test code = 777-3) 261 See_Comment [Automated messa ge] The system which generated this result transmitted reference range: 150 - 328 10*3/?L. The reference range was not used to interpret this result as normal/abnormal. MPV (test code = 65194-5) 11.6 fL 9.8-13.0 NRBC/100 WBC (test code = 6575185101) 0.0 See_Comment [Automated Denty's ssage] The system which generated this result transmitted reference range: 0.0 - 10.0 /100 WBCs. The reference range was not used to interpret this result as normal/abnormal. NRBC x10^3 (test code = 3063556452) See_Comment [Automated messa ge] The system which generated this result transmitted reference range: 10*3/?L. The reference range was not used to interpret this result as normal/abnormal. GRAN MAT (NEUT) % (test code = 770-8) 81.1 % IMM GRAN % (test code = 5081529419) 0.30 % LYMPH % (test code = 736-9) 8.9 % MONO % (test code = 5905-5) 8.2 % EOS % (test code = 713-8) 1.0 % BASO % (test code = 706-2) 0.5 % GRAN MAT x10^3(ANC) (test code = 5525091801) 4.73 10*3/uL 1.99-6.95 IMM GRAN x10^3 (test code = 9952530081) 0.00-0.06 LYMPH x10^3 (test code = 731-0) 0.52 10*3/uL 1.09-3.23 L MONO x10^3 (test code = 742-7) 0.48 10*3/uL 0.36-1.02 EOS x10^3 (test code = 711-2) 0.06 10*3/uL 0.06-0.53 BASO x10^3 (test code = 704-7) 0.03 10*3/uL 0.01-0.09 Lab Interpretation (test code = 37813-3) Abnormal [facility] W/AUTO [id number] 00:00:00* Test Item Value Reference Range Interpretation Comme nts WBC (test code = 45954-0) 6.2 K/UL See_Comment [Automated messa ge] The system which generated this result transmitted reference range: 3.5-11.0 K/UL. The reference range was not used to interpret this result as normal/abnormal. RBC (test code = 63357-3) 3.38 M/UL See_Comment L [Automated messa ge] [...] result as normal/abnormal. HEMATOCRIT (test code = 88407-7) 30.5 % See_Comment L [Automated messa ge] The system which generated this result transmitted reference range: 40.0-51.0 %. The reference range was not used to interpret this result as normal/abnormal. MCV (test code = 02919-2) 90.2 fL See_Comment [Automated messa ge] The system which generated this result transmitted reference range: 80.0-99.0 fL. The reference range was not used to interpret this result as normal/abnormal. MCH (test code = 19603-6) 27.2 PG See_Comment [Automated messa ge] The system which generated this result transmitted reference range: 25.0-33.0 PG. The reference range was not used to interpret this result as normal/abnormal. MCHC (test code = 31894-6) 30.2 G/DL See_Comment L [Automated messa ge] The system which generated this result transmitted reference range: 31.0-36.0 G/DL. The reference range was not used to interpret this result as normal/abnormal. RDW (test code = 07279-5) 14.3 % See_Comment [Automated messa ge] The system which generated this result transmitted reference range: 11.5-15.0 %. The reference range was not used to interpret this result as normal/abnormal. NEUTROPHILS (test code = 93387-4) 80.7 % LYMPHOCYTES (test code = 37188-9) 9.0 % MONOCYTES (test code = 04979-6) 8.0 % EOSINOPHILS (test code = 09110-4) 1.8 % BASOPHILS (test code = 41654-4) 0.3 % NUCLEATED RBCS (test code = 92977-7) 0.0 /100 WBC'S See_Comment [Automated messa ge] The system which generated this result transmitted reference range: 0.0 /100 WBC'S. The reference range was not used to interpret this result as normal/abnormal. PLATELET COUNT (test code = 23349-5) 257 K/UL See_Comment [Automated messa ge] The system which generated this result transmitted reference range: 130-400 K/UL. The reference range was not used to interpret this result as normal/abnormal. Consult Notes Date/Time Note Provider Source 2024-06-02 11:58:40 Associated Order(s): CONSULT PS PASTORAL CARE Visit Encounter: The Hat Trimmer visited the patient at bedside. Family member was at bedside. Tenriism:Protestant Spiritual Assessment: active member of the Protestant hinduism Patient Encounter: Alert and comfortable, seated upright in bed Patient was polite and receptive to the Hat Trimmer's presence. Visitors present: No Room setting: Well-lit, shades opened / lights turned on. Spiritual Intervention: Explored patient's spiritual, emotional and psychosocial needs [facility] List[facility] with Empathy [facility] Meditative Prayer/[place] Validated feelings where appropriate Outcome: Requested prayer for healing, peace, comfort and renewed strength to endure multiple health and personal challenges. Patient openly shared information about health, life story, and expressed concerns Patient expressed desire for renewed spiritual strength and comfort Patient appeared receptive to spiritual support and indicated he/she was comforted by the radio station audio engineer's visit. Patient thanked the radio station audio engineer for the prayer and visit Plan of Care: Spiritual, emotional and psychosocial care will be available when the patient has a need. Pastoral Care Follow-Up: As Needed Rev.Crystal Nitin Gardner Chaplain Woodruff [facility] Department of Pastoral Care Pager: [phone] IDA Taveras [facility] - Health 2024-05-30 15:19:03 Associated Order(s): [...] SVG to OM3/PDA) in 03/2015, ICD in 2017,DMII/Ischemic CM/HTN/DLP/Hypothyroidism and ESRD on HD is presenting [...] Chronic kidney disease Coronary artery disease involving te-moak coronary artery without angina pectoris 11/23/2015 Essential hypertension 06/15/2014 ICD10 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 Gout Ischemic cardiomyopathy 06/15/2014 EF 20% per pt 10/04, 15-20% 11/2015 [place] (myocardial infarction) Pacemaker S/P CABG x 3 Type 2 diabetes mellitus without complication 11/23/2015 Past Surgical History: Past Surgical History: Procedure Laterality Date CABG, ARTERIAL, THREE 03/2015 [place] Tech ESOPHAGOGASTRODUODENOSCOPY N/A 05/17/2024 Surgeon: Luis Pace MD; Location: [facility] OR LOCATION IMPLANTABLE CARDIOVERTER DEFIBRILLATOR PLACEMENT 08/2016 PACEMAKERS INSERTION 08/2016 PERMACATH PLACEMENT Right 05/09/2024 Surgeon: Asad Morgan MD; Location: [facility] OR LOCATION PTCA W/POSSIBLE STENT 09/2013 [facility] PTFE GRAFT INSERTION Right 05/09/2024 Surgeon: Asad Morgan MD; Location[facility] Family History: Family History [...] in the morning. 90 tablet 3 Insulin [place], Disposable, (BD INSULIN PEN NEEDLE UF) 29 [...] for Chest pain. 1 Bottle 3 Insulin [place], Disposable, 30 gauge x 5/16" Ndle Use [...] level: Not on file Occupational History Occupation: [employer] Tobacco Use Smoking status: Some Days [...] Mr. Hernandez is on disability for a [place] in [place]. Exercise: walking and yard work. [...] Friends and Family: Not on file Attends [employer]: Not on file Active Member of [...] and a peripancreatic abscess. RL: 460 AFC: 47600 Critical Result: Gastric perforation Findings discussed with [...] sized aorta. Pericardium No pericardial effusion. ASSESSMENT/PLAN Srinivasa Hernandez is a 63 year old [...] with Dr. Gillian MD 05/30/2024 3:19 PM Stripe Matcher, PGY IV TAL CUTTER Associated attestation - Rosa Summers MD - 06/02/2024 8:34 AM CRYSTAL CUTTER I personally examined the patient on the date of service and agree with Dr. Rubalcava's fellow note. I actively participated in the decision-making process. Please see the resident's note for additional details. CARDIOVASCULAR DISEASE [facility] 2024-05-30 10:42:37 Associated Order(s): CONSULT NEPHROLOGY NEPHROLOGY CONSULT NOTE Consultation requested by: Service: ER Reason for Consultation: ESRD Date of Service: 05/30/2024 History of Present Illness: Srinivasa Hernandez is a 63 year old male has a past medical history of CHF (congestive heart failure), Chronic kidney disease, Coronary artery disease involving te-moak coronary artery without angina pectoris (11/23/2015), Essential hypertension (06/15/2014), Gout, Ischemic cardiomyopathy (06/15/2014), [place] (myocardial infarction), Pacemaker, S/P CABG x 3, [...] Nephro consulted as patient gets HD via [facility]. Last done Sunday. 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 Gout Ischemic cardiomyopathy 06/15/2014 EF 20% per pt 10/04, 15-20% 11/2015 [place] (myocardial infarction) Pacemaker S/P CABG x 3 Type 2 diabetes mellitus without complication 11/23/2015 Past Surgical History: Procedure Laterality Date CABG, ARTERIAL, THREE 03/2015 [place] Tech ESOPHAGOGASTRODUODENOSCOPY N/A 05/17/2024 Surgeon: Luis Pace MD; Location: [facility] OR LOCATION IMPLANTABLE CARDIOVERTER DEFIBRILLATOR PLACEMENT 08/2016 PACEMAKERS INSERTION 08/2016 PERMACATH PLACEMENT Right 05/09/2024 Surgeon: Asad Morgan MD; Location: [facility] LOCATION PTCA W/POSSIBLE STENT 09/2013 [facility] PTFE GRAFT INSERTION Right 05/09/2024 Surgeon: Asad Morgan MD; Location: [facility] OR LOCATION No Known Allergies Past Medical History: Diagnosis Date CHF (congestive heart failure) Chronic kidney disease Coronary artery disease involving te-moak coronary artery without angina pectoris 11/23/2015 Essential hypertension 06/15/2014 ICD10 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 Gout Ischemic cardiomyopathy 06/15/2014 EF 20% per pt 10/04, 15-20% 11/2015 [place] (myocardial infarction) Pacemaker S/P CABG x 3 [...] 0.01 - 0.09 10*3/uL Comp. Metabolic Panel (60948) Collection Time: 05/29/24 7:39 PM Result Value [...] Unit Blood Type O Pos Unit Number [id number] Blood Expiration Date & Time 920671455811 Status Information Issued Product Identification Red Blood Cells Product Code [id number] Cross Match Result Compatible ISBT Blood Type Code 5100 Unit Blood Type O Pos Unit Number [id number] Blood Expiration Date & Time 058358016072 Status Information Issued Product Identification Red Blood Cells Product Code [id number] Lactic Acid Whole Blood Collection Time: 05/30/24 [...] and a peripancreatic abscess. RL: 460 AFC: 11016 Critical Result: Gastric perforation Findings discussed with [...] Weiner MD Nephrology and Hypertension Fellow Pager: [phone] TAL CUTTER Associated attestation - Husam Wu MD - 05/30/2024 2:55 PM CRYSTAL CUTTER I have discussed this patient with the fellow on 05/30/2024 . I have reviewed the assessment and plan as outlined in the progress note and agree with the overall approach to this patient. I personally participated in the decision-making process as relates to this patient's medical condition. Please refer to above progress note for details of the medical care provided. Husam Wu MD [facility] Division of Nephrology & Hypertension NEPHROLOGY [facility] 2024-05-30 09:21:13 Associated Order(s): CONSULT GASTROENTEROLOGY Department [...] transferred 2 units PRBC before transfer to [place]. CT scan with concerns for contained gastric perforation extending to the pancreas. GI consulted. 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 Gout Ischemic cardiomyopathy 06/15/2014 EF 20% per pt 10/04, 15-20% 11/2015 [place] (myocardial infarction) Pacemaker S/P CABG x 3 Type 2 diabetes mellitus without complication 11/23/2015 PAST SURGICAL HISTORY Past Surgical History: Procedure Laterality Date CABG, ARTERIAL, THREE 03/2015 [place] Tech ESOPHAGOGASTRODUODENOSCOPY N/A 05/17/2024 Surgeon: Luis Pcae MD; Location: [facility] OR LOCATION IMPLANTABLE CARDIOVERTER DEFIBRILLATOR PLACEMENT 08/2016 PACEMAKERS INSERTION 08/2016 PERMACATH PLACEMENT Right 05/09/2024 Surgeon: Asad Morgan MD; Location: [facility] OR LOCATION PTCA W/POSSIBLE STENT 09/2013 [facility] PTFE GRAFT INSERTION Right 05/09/2024 Surgeon: Asad Morgan MD; Location: [facility] OR LOCATION FAMILY HISTORY Family History Problem [...] in the morning. 90 tablet 3 Insulin [place], Disposable, (BD INSULIN PEN NEEDLE UF) 29 [...] for Chest pain. 1 Bottle 3 Insulin [place], Disposable, 30 gauge x 5/16" Ndle Use [...] level: Not on file Occupational History Occupation: [employer] Tobacco Use Smoking status: Some Days [...] Mr. Hernandez is on disability for a [place] in 2013. Exercise: walking and yard work. [...] Friends and Family: Not on file Attends [employer]: Not on file Active Member of [...] and a peripancreatic abscess. RL: 460 AFC: 99544 Critical Result: Gastric perforation Findings discussed with [...] Resident: Berry Bell Attestation Signer name: Tino Guillermo I attest that I was present for [...] Barrera DO Gastroenterology & Hepatology PGY 6 TAL CUTTER Associated attestation - Luis Pace MD - 06/01/2024 9:33 PM CRYSTAL CUTTER I have examined the patient and discussed the findings and management plan with Dr Barrera. I agree with the GI Consult note dated 05/30/24 as above. 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 Gout Ischemic cardiomyopathy 06/15/2014 EF 20% per pt 10/04, 15-20% 11/2015 [place] (myocardial infarction) Pacemaker S/P CABG x 3 Type 2 diabetes mellitus without complication 11/23/2015 PAST SURGICAL HISTORY Past Surgical History: Procedure Laterality Date CABG, ARTERIAL, THREE 03/2015 [place] [employer] IMPLANTABLE CARDIOVERTER DEFIBRILLATOR PLACEMENT 08/2016 PACEMAKERS INSERTION 08/2016 PERMACATH PLACEMENT Right 05/09/2024 Surgeon: Asad Morgan MD; Location: [facility] PTCA W/POSSIBLE STENT 09/2013 [facility] PTFE GRAFT INSERTION Right 05/09/2024 Surgeon: Asad Morgan MD; Location: [facility] OR LOCATION FAMILY HISTORY Family History Problem [...] level: Not on file Occupational History Occupation: [employer] Tobacco Use Smoking status: Some Days [...] Mr. Hernandez is on disability for a [place] in 2013. Exercise: walking and yard work. [...] Friends and Family: Not on file Attends [employer]: Not on file Active Member of [...] - EGD today - Notify GI fellow sales applications engineer with any changes Patient was seen and discussed with Dr. Pace. Please call with any questions. Alison Boggs MD Gastroenterology and Hepatology | PGY-4 TAL CUTTER Associated attestation - Luis Pace MD - 05/17/2024 1:12 PM CRYSTAL CUTTER I have examined the patient and discussed the findings and management plan with Dr Boggs. I agree with the GI Consult note as above. 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 Gout Ischemic cardiomyopathy 06/15/2014 EF 20% per pt 10/04, 15-20% 11/2015 WV (myocardial infarction) Pacemaker S/P CABG x 3 Type 2 diabetes mellitus without complication 11/23/2015 PSH: Past Surgical History: Procedure Laterality Date CABG, ARTERIAL, THREE 03/2015 [place] Tech IMPLANTABLE CARDIOVERTER DEFIBRILLATOR PLACEMENT 08/2016 PACEMAKERS INSERTION 08/2016 PERMACATH PLACEMENT Right 05/09/2024 Surgeon: Asad Morgan MD; Location: [facility] PTCA W/POSSIBLE STENT 09/2013 [facility] PTFE GRAFT INSERTION Right 05/09/2024 Surgeon: Asad Morgan MD; Location: [facility] PRIOR LIVING SITUATION: Lives with ex-, 13/11 [...] After treatment: no change COMMUNICATION Primary Language: [place] Able to Verbalize needs: Yes Vision:good; no [...] Minutes: 30 min Joann Gibbons PT, DPT TAL CUTTER Joann Gibbons PT [facility] 2024-05-16 14:35:28 Associated Order(s): CONSULT PULMONARY MEDICINE PULMONARY MEDICINE CONSULTATION NOTE Consultation requested by: Julio Cesar Partida MD Date of Service: 05/16/2024 14:35 HD [...] Chronic kidney disease Coronary artery disease involving te-moak coronary artery without angina pectoris 11/23/2015 Essential hypertension 06/15/2014 ICD10 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 Gout Ischemic cardiomyopathy 06/15/2014 EF 20% per pt 10/04, 15-20% 11/2015 WV (myocardial infarction) Pacemaker S/P CABG x 3 Type 2 diabetes mellitus without complication 11/23/2015 Past Surgical History: Procedure Laterality Date CABG, ARTERIAL, THREE 03/2015 [place] Tech IMPLANTABLE CARDIOVERTER DEFIBRILLATOR PLACEMENT 08/2016 PACEMAKERS INSERTION 08/2016 PERMACATH PLACEMENT Right 05/09/2024 Surgeon: Asad Morgan MD; Location: [facility] PTCA W/POSSIBLE STENT 09/2013 [facility] PTFE GRAFT INSERTION Right 05/09/2024 Surgeon: Asad Morgan MD; Location: [facility] Family History Problem Relation Age of Onset Asthma Mother Heart Father Hypertension Sister Diabetes Sister Diabetes Brother Hypertension Brother Heart Brother No Significant Medical Problems Daughter No Significant Medical Problems Son No Significant Medical Problems Son Social History Socioeconomic History Marital status: Occupational History Occupation: [employer] Tobacco Use Smoking status: Some Days [...] Mr. Hernandez is on disability for a [place] in 2014. Exercise: walking and yard work. [...] - SEE INSTRUCTIONS 4,100 Units at 05/14/24 8141 Lidocaine (LIDOCARE) 4 % patch 2 Patch [...] Pulmonary & Critical Care Medicine Fellow Pager [phone] TAL CUTTER Associated attestation - Burt Son MD - 05/19/2024 9:50 AM CRYSTAL CUTTER Attestation: Today 16 May 2024 I examined and discussed this patient with Dr Castellon. I agree with the observations, assessments, and recommendations. [facility] PULMONARY DISEASE [facility] 2024-05-16 11:30:00 Associated Order(s): CONSULT ADULT OCCUPATIONAL THERAPY OT GENERAL EVALUATION Consult received via [employer], EMR reviewed and evaluation completed 05/16/24. 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 Gout Ischemic cardiomyopathy 06/15/2014 EF 20% per pt 10/04, 15-20% 11/2015 WV (myocardial infarction) Pacemaker S/P CABG x 3 Type 2 diabetes mellitus without complication 11/23/2015 PSH: Past Surgical History: Procedure Laterality Date CABG, ARTERIAL, THREE 03/2015 [place] Tech IMPLANTABLE CARDIOVERTER DEFIBRILLATOR PLACEMENT 08/2016 PACEMAKERS INSERTION 08/2016 PERMACATH PLACEMENT Right 05/09/2024 Surgeon: Asad Morgan MD; Location: [facility] OR LOCATION PTCA W/POSSIBLE STENT 09/2013 [facility] PTFE GRAFT INSERTION Right 05/09/2024 Surgeon: Asad Morgan MD; Location: [facility] OR LOCATION PAIN: Pain Location: abdomen Pain [...] provided. Individual verbalizes understanding of teaching provided. Lyndsay OTR, MOT Total Timed Treatment Codes: 8 Min [...] to enable patient to complete evaluation component. TAL CUTTER Elijah Rangel OT [facility] 2024-05-08 09:12:28 Associated Order(s): CONSULT KERRICK KLEANER OPERATOR-ADULT Will submit clinicals to [facility] and await chair time. 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 Gout Ischemic cardiomyopathy 06/15/2014 EF 20% per pt 10/04, 15-20% 11/2015 WV (myocardial infarction) Pacemaker S/P CABG x 3 Type 2 diabetes mellitus without complication 11/23/2015 Past Surgical History: Procedure Laterality Date CABG, ARTERIAL, THREE 03/2015 [place] Tech IMPLANTABLE CARDIOVERTER DEFIBRILLATOR PLACEMENT 08/2016 PACEMAKERS INSERTION 08/2016 PTCA W/POSSIBLE STENT 09/2013 [facility] Family History Problem Relation Age of Onset [...] 81 mg Oral DAILY 81 mg at 05/07/24 0839 atorvastatin (LIPITOR) tablet 80 mg 80 mg Oral QHS 80 mg at 05/06/242117 carvediloL (COREG) tablet 12.5 mg 12.5 mg Oral BID MEALS 12.5 mg at 05/07/2439 dextrose 50 % in water (D50W) injection 25 mL 25 mL Slow IV Push PRN ezetimibe (ZETIA) tablet 10 mg 10 mg Oral DAILY 10 mg at 05/07/2439 furosemide (LASIX) injection 80 mg 80 mg Slow IV Push BIDPC 80 mg at 05/07/2439 glucagon HCL injection 1 mg 1 mg Intramuscular PRN heparin (porcine) injection 5,000 Units 5,000 Units Subcutaneous Q8H 5,000 Units at 05/07/24 050 hydrALAZINE (APRESOLINE) tablet 25 mg 25 mg Oral Q8H 25 mg at 05/07/247 insulin glargine (LANTUS U-100) injection 10 Units 10 Units Subcutaneous QHS 10 Units at 05/06/242117 isosorbide dinitrate (ISORDIL) tablet 20 mg 20 mg Oral Q8H 20 mg at 05/07/24 0507 ondansetron (ZOFRAN (PF)) injection 4 mg 4 [...] and other that recommend (earlier) initiation of CHUCK BONER on this admission. Unfortunately pt was not able to get his vascular access as OP as could not afford the co pay so will pursue a TDC although will need to be off Plavix. Will also touch base with vascular service, Dr. Hunter Will order hepatitis studies and send off referral for [facility] -Acute on chronic systolic [...] unit as OP Mark Tejada MD, FASN [facility] 2024-05-07 08:09:39 Associated Order(s): CONSULT CARDIOLOGY [facility] Cardiology Consult Note Patient: Srinivasa Hernandez Date of : 1960 Date of service:05/07/2024 Primary Care Physician: Nancy Rodriguez CHIEF COMPLAINT: Chief Complaint Patient presents with Shortness of Breath HISTORY OF PRESENT ILLNESS: Srinivasa Hernandez is a 63 year old male presented to the ER for evaluation for shortness of breath. History from patient. Pertinent cardiac related history reviewed from chart Presented to the ER for the evaluation of underlying shortness of breath. Patient was last seen by [facility] Cardiology dated January of 2023. Since then, patient not followed up with [facility] Cardiology. Per patient documentation and reports, the patient has been following up with Dr. Cantu in [facility] Cardiology office on a regular basis. Patient [...] CABG in 03/2015/DM/Ischemic CMP/HTN/DLP/Hypothyroidism. He had an WV in 10/04 and received a stent at [facility]. In 03/2015 he underwent 3-v CABG in [facility]. ECHO showed LVEF 25-30% with RWMA. He presented with NSTEMI in 11/2015. LHC showed distal LAD disease but MRI showed no significant viability. He was put on lifevest. Repeat ECHO in 02/2016 showed LVEF 15-20%: No improvement on medical therapy. He underwent ICD in 2017. Patient also with history of chronic kidney [...] Coronary angiogram dated 12/14/2015 reviewed shows severe te-moak CAD, patent grafts noted. Device check dated 10/03/2021 reviewed shows normal device function. No arrhythmias noted. 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 Gout Ischemic cardiomyopathy 06/15/2014 EF 20% per pt 10/04, 15-20% 11/2015 WV (myocardial infarction) Pacemaker S/P CABG x 3 Type 2 diabetes mellitus without complication 11/23/2015 Past Surgical History: Procedure Laterality Date CABG, ARTERIAL, THREE 03/2015 [place] Tech IMPLANTABLE CARDIOVERTER DEFIBRILLATOR PLACEMENT 08/2016 PACEMAKERS INSERTION 08/2016 PTCA W/POSSIBLE STENT 09/2013 [facility] Family History Problem Relation Age of Onset Asthma Mother Heart Father Hypertension Sister Diabetes Sister Diabetes Brother Hypertension Brother Heart Brother No Significant Medical Problems Daughter No Significant Medical Problems Son No Significant Medical Problems Son SOCIAL HISTORY Social History Socioeconomic History Marital status: Occupational History Occupation: [employer] Tobacco Use Smoking status: Some Days [...] Mr. Hernandez is on disability for a [place] in 2013. Exercise: walking and yard work. [...] EC tablet Comments: Reason for Stopping: Insulin [place], Disposable, (BD INSULIN PEN NEEDLE UF) 29 [...] sublingual tablet Comments: Reason for Stopping: Insulin [place], Disposable, 30 gauge x 5/16" Ndle Comments: [...] Q8H, Pb Tavarez MD, 5,000 Units at 05/07/24506 hydrALAZINE (APRESOLINE) tablet 25 mg, 25 mg, Oral, Q8H, Pb Tavarez MD, 25 mg at 05/07/24506 insulin glargine (LANTUS U-100) injection 10 Units, 10 Units, Subcutaneous, QHS, Pb Tavarez MD, 10 Units at 05/06/242117 isosorbide dinitrate (ISORDIL) tablet 20 mg, 20 mg, Oral, Q8H, Pb Tavarez MD, 20 mg at 05/07/24506 ondansetron (ZOFRAN (PF)) injection 4 mg, 4 [...] Vitals: 05/06/24 2014 05/06/24 2327 05/07/24 0342 01/15/25 0803 BP: (!) 161/94 105/56 121/62 123/64 [...] hypertension Ischemic cardiomyopathy Coronary artery disease involving te-moak coronary artery without angina pectoris S/P ICD [...] mildly elevated at 0.035, NT-proBNP significantly elevated 28249. Acute on Chronic HFrEF: NYHA III-IV. S/p [...] Coronary angiogram dated 12/14/2015 reviewed shows severe te-moak CAD, patent grafts noted. NT-proBNP (pg/mL) Date Value 05/07/2024 38,300 (H) 08/03/2022 25,200 (H) Elevated troponins: mildly elevated as setting of underlying CKD/heart failure. Likely type 2 WV. Recommended serial troponins times 2. Recommend to [...] A1C Results (UTMB/LC, POCT, QUEST) Recent Labs 05/06/242117 HGBA1C 6.6* Primary cardiology team: Dr. Cantu in [place]. Total Visit Time: 60 mins The total [...] Ordering referrals and/or communicating with other health customer care representative (when not separately reported), Documenting clinical information in the electronic or other health record, and Independently interpreting results (not separately reported) and/or communicating results to the patient/family/caregiver. This report was dictated using Prediculous and is subject to voice recognition errors. Please excuse any unusual inaccuracies. My diagnostic impression and treatment plans were discussed at length with the patient and family member present. Thank you for allowing us to participate in the care of Srinivasa Hernandez. If you have any questions or concerns please feel free to call our office at [phone]. I would be happy to be of further assistance for Srinivasa Hernandez wellbeing. Voice recognition software has been used to create portions of this document. An attempt to proofread has been made to minimize errors. Please do not hesitate to call with any questions. Kunal Craft MD Broadcast Correspondent, Division of Cardiology [facility] TAL CUTTER [facility] - Health History and Physical Notes Date/Time Note Provider Source 2024-05-30 03:58:28 Acute Care SURGERY H&P NOTE Date of Service: 05/30/2024 Chief Complaint: Anemia, Stomach pain HPI Srinivasa Hernandez 63 year old male with PMH of HTN, IDDM2,HFrEF (EF 20-25%) s/p PCI and CABGx3 and stage 5 CKD on dialysis (TThS per patient), who presents as a transfer from [facility] due to anemia and concern for gastric perforation. Patient was initially worked up at [facility] for anemia, weakness, dizziness, SOB, and epigastric abdominal pain. Endorses intermittent episodes of dark bloody bowel movements since his most recent discharge. Denies nausea, and vomiting. Last PO intake and bowel movement was yesterday. Workup at [place] revealed anemia and concern for gastric perforation. Transfusion of 2 units of pRBC was started en route and to [facility] for higher level of care. Of note, [...] in the morning. 90 tablet 3 Insulin [place], Disposable, (BD INSULIN PEN NEEDLE UF) 29 [...] for Chest pain. 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 Gout Ischemic cardiomyopathy 06/15/2014 EF 20% per pt 10/04, 15-20% 11/2015 WV (myocardial infarction) Pacemaker S/P CABG x 3 Type 2 diabetes mellitus without complication 11/23/2015 Past Surgical History: Procedure Laterality Date CABG, ARTERIAL, THREE 03/2015 [place] Tech ESOPHAGOGASTRODUODENOSCOPY N/A 05/17/2024 Surgeon: Luis Pace MD; Location: [facility] OR LOCATION IMPLANTABLE CARDIOVERTER DEFIBRILLATOR PLACEMENT 08/2016 PACEMAKERS INSERTION 08/2016 PERMACATH PLACEMENT Right 05/09/2024 Surgeon: Asad Morgan MD; Location: [facility] OR LOCATION PTCA W/POSSIBLE STENT 09/2013 [facility] PTFE GRAFT INSERTION Right 05/09/2024 Surgeon: Asad Morgan MD; Location: [facility] OR LOCATION Family History Problem Relation Age of Onset Asthma Mother Heart Father Hypertension Sister Diabetes Sister Diabetes Brother Hypertension Brother Heart Brother No Significant Medical Problems Daughter No Significant Medical Problems Son No Significant Medical Problems Son Social History Socioeconomic History Marital status: Occupational History Occupation: [employer] Tobacco Use Smoking status: Some Days [...] Mr. Hernandez is on disability for a [place] in 2013. Exercise: walking and yard work. [...] service. Amy Banda MD General Surgery, PGY1 TAL CUTTER Associated attestation - Prasanth Hernandez DO - 05/30/2024 3:33 PM CRYSTAL CUTTER I personally examined the patient on 05/30/24 and agree with the resident's note as written, including any changes or additions that the resident may have made to the medical student's note. I actively participated in the decision making process. Please see the resident's note for additional details. 63 year old man who present with gastric perforation from [facility] -Last month pt underwent EGD and IR [...] recs from consults Prasanth Hernandez DO SURGERY [facility] 2024-05-17 11:49:05 Endoscopy H & P Age: [age] year old Sex: male ASA Class: IV Indication: UGIB Antiplatelets/Anticoagulant s: DAPT, unclear last dose of plavix but off since admission, ASA 05/16 Labs: reviewed Previous Endoscopy: none Histories: Past Medical History: Diagnosis Date CHF (congestive heart failure) Chronic kidney disease Coronary artery disease involving te-moak coronary artery without angina pectoris 11/23/2015 Essential hypertension 06/15/2014 ICD10 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 Gout Ischemic cardiomyopathy 06/15/2014 EF 20% per pt 10/04, 15-20% 11/2015 WV (myocardial infarction) Pacemaker S/P CABG x 3 [...] Right 05/09/2024 Surgeon: Asad Morgan MD; Location: [facility] OR LOCATION PTCA W/POSSIBLE STENT 09/2013 [facility] PTFE GRAFT INSERTION Right 05/09/2024 Surgeon: Asad Morgan MD; Location: [facility] OR LOCATION Current Facility-Administered Medications Medication Dose Route Frequency [...] Socioeconomic History Marital status: Occupational History Occupation: [employer] Tobacco Use Smoking status: Some Days [...] Mr. Hernandez is on disability for a [place] in 2013. Exercise: walking and yard work. [...] complete the procedure, cardiovascular complications such as WV, stroke, arrhythmia, and . Informed consent obtained/verified. Education provided to the patient about the procedure. Alison Boggs MD 05/17/2024 11:49 AM TAL CUTTER Associated attestation - Luis Pace MD - 05/17/2024 1:12 PM CRYSTAL CUTTER I have evaluated the patient and discussed the history, examination findings and procedure plan with Dr Boggs. I agree with the above pre-op note. GASTROENTEROLOGY [facility] 2024-05-14 00:48:24 Medicine Intensive Care History and Physical Date of Service: 05/14/2024 00:49 Intubation Day: NA Hospital Day: 0 CHIEF COMPLAINT: Upper GIB History of Present Illness Srinivasa Hernandez is a 63 year old male w/ hx of HFrEF(LV EF at 20-25% on TTE 01/16/23) secondary to ICM; h/o CAD s/p Mi s/p PCI in 2013 ([facility]) and 3V-CABG 03/2015 ([place]), systemic hypertension, dyslipidemia, pulmonary hypertension, s/p [...] Chronic kidney disease, Coronary artery disease involving te-moak coronary artery without angina pectoris (11/23/2015), Essential hypertension (06/15/2014), Gout, Ischemic cardiomyopathy (06/15/2014), WV (myocardial infarction), Pacemaker, S/P CABG x 3, [...] 95/47 Pulse: 71 81 66 Resp: 20 15 Temp: 36.7 ?C (98.1 ?F) 36.6 [...] s/p Mi s/p PCI in 2013 ([facility]) and 3V-CABG 03/2015 ([place]) Hypertension Dyslipidemia Pulmonary hypertension Elevated troponin likely type II WV Patient hypotensive, concerning for active bleed. Consider [...] Right Subclavian (Active) Site assessment Clean;Dry;Intact 05/12/24 111 Red lumen status Capped & Clamped 05/12/24 111 Blue lumen status Capped & Clamped 05/12/24 111 Dressing status Clean;Dry;Intact;CHG gel dressing;Transparent;Remove d 05/12/241114 Dressing intervention New 05/12/241114 Daily review of necessity Continued need discussed with provider 05/12/241114 Dressing Changed Today? (Chart Today's Date) 05/12/24 05/12/24 111 Number of days: 5 VTE Prophylaxis: contraindicated GI Prophylaxis: Pantoprazole Prognosis: guarded Code Status: Full MPOA/surrogate decision maker: self Prasanth Dumont MD Department of Internal Medicine TAL CUTTER Associated attestation - Julio Cesar Partida MD - 05/14/2024 1:29 PM CRYSTAL CUTTER Attending History Supplement:I personally examined the patient [...] to identify and intervene regarding GI bleed. 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 Gout Ischemic cardiomyopathy 06/15/2014 EF 20% per pt 10/04, 15-20% 11/2015 WV (myocardial infarction) Pacemaker S/P CABG x 3 Type 2 diabetes mellitus without complication 11/23/2015 PAST SURGICAL HISTORY Past Surgical History: Procedure Laterality Date CABG, ARTERIAL, THREE 03/2015 [place] Tech IMPLANTABLE CARDIOVERTER DEFIBRILLATOR PLACEMENT 08/2016 PACEMAKERS INSERTION 08/2016 PTCA W/POSSIBLE STENT 09/2013 [facility] ALLERGIES No Known Allergies MEDICATIONS Current home [...] EC tablet Comments: Reason for Stopping: Insulin [place], Disposable, (BD INSULIN PEN NEEDLE UF) 29 [...] sublingual tablet Comments: Reason for Stopping: Insulin [place], Disposable, 30 gauge x 5/16" Ndle Comments: [...] Socioeconomic History Marital status: Occupational History Occupation: [employer] Tobacco Use Smoking status: Some Days [...] Mr. Hernandez is on disability for a [place] in 2013. Exercise: walking and yard work. [...] with the tip partially out of the [id number].. Lungs: The lung volumes are normal on [...] given high risk of morbidity and mortality. 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 DVT prophylaxis: Heparin [place] [employer] was verified Disposition: Await stability T [facility] Procedure Notes Date/Time Note Provider Source 2024-05-14 16:41:00 VASCULAR AND INTERVENTIONAL RADIOLOGY PROCEDURE NOTE Pre-procedure diagnosis: Upper GI bleed with extravasation noted on CTA Post-procedure diagnosis: Same Procedure: Ultrasound guided common femoral artery access sheath placement (CPT code: 62164 and 51975) Limited retrograde angiogram through common femoral artery access sheath with interpretation (CPT code: 09178) Celiac artery catheterization (CPT code: 20835) and angiography with interpretation (CPT code: 56970). Superior mesenteric artery catheterization (CPT code: 18177) and angiography with interpretation (CPT code: 04070). Common hepatic artery catheterization (CPT code: 13931) and angiography with interpretation (CPT code: 65788). Gastroduodenal artery catheterization (CPT code: 10680) and angiography with interpretation (CPT code: 35173). Gastroepiploic artery catheterization (CPT code: 75276) and angiography with interpretation (CPT code: 05759). Superior pancreaticoduodenal catheterization (CPT code: 47931) and angiography with interpretation (CPT code: 83208). Right gastric artery catheterization (CPT code: 30355) and angiography with interpretation (CPT code: 11991). Embolization of gastroduodenal artery and its branches utilizing gelfoam and metallic coils (CPT code: 80403) Closure of CF arteriotomy site with 6Fr [...] in PACS. [facility] Interventional Radiology #: [id number] TAL CUTTER Associated attestation - Tino Li MD - 05/18/2024 12:51 PM CRYSTAL CUTTER I was present for and supervised the entire procedure(s). [facility] 2024-05-07 13:23:44 VASCULAR AND INTERVENTIONAL RADIOLOGY PROCEDURE [...] Full dictated note to follow in PACS. TAL CUTTER RAD-DIAGNOSTIC RADIOLOGY STAFF [facility] 2024-05-07 09:07:08 Patient recieved to Radiology for pleural effusion . Indication for procedure is Thoracentesis Pt identified using name and . wind commissioning technician monitoring is Marquita mazariegos IR Faculty supervising [...] chest Post procedure disposition Procedure performed bedside. IDA Alvares Do [facility] Notes Date/Time Note Provider Source 2024-11-27 16:46:29 See previous encounter. Dhara García RN [facility] 2024-11-27 16:41:15 Copied from CRM #[id number]. Topic: Customer Service - Missed Call from Provider >> Nov 27, 2024 4:39 PM Patient Glass Processing Worker wrote: Srinivasa Hernandez is a 64 year old male Pt states that he just missed a call regarding his pacemaker. Please advise. Judith Carney [facility] 2024-11-27 16:36:22 Per procedure note, AICD device is Device: Biotronik Single lead Defibrillator. Model#: Iventra 7 VR-T Dx. LVM details and callback number Dhara García RN [facility] 2024-11-27 16:25:55 Copied from CRM #[id number]. Topic: Clinical - Medical Advice >> Nov 27, 2024 4:24 PM Patient Glass Processing Worker wrote: Srinivasa Hernandez Clinic Name: [facility] CARDIOLOGY FACULTY [id number] male / 64 year old (1960) Pt calling wanting to know what brand defibrillator he had put in. Please advise [phone] (home) Perla Chanel [facility] 2024-06-02 17:36:27 Hemodialysis: consent verification, pt identified by name & MR number by 2 staff members, call light in reach. Education: HD UF time & goal, s/s to report to healthcare team during and post treatment: Nausea/vomiting Muscle cramping Headache Low blood pressure Weakness Dizziness Blurred vision Bleeding at access site Problem: Procedure Routine Goal: Knowledge of procedure Outcome: Resolved TAL CUTTER [facility] 2024-06-02 13:46:57 Problem: Falls, Risk of Goal: Absence of falls Outcome: Resolved Problem: Bleeding, Risk of Goal: Absence of impaired coagulation signs and symptoms Outcome: Resolved Goal: Absence of active bleeding Outcome: Resolved Problem: Procedure Routine Goal: Absence of post-procedure complications Outcome: Resolved Goal: Knowledge of procedure Outcome: Resolved TAL CUTTER Liz Walker RN [facility] 2024-06-02 13:15:52 Images from the original note were not included. Pharmacy Recommendations for Patient Admission: Patient reported that he was instructed to take Ezetimibe and furosemide however orders were discontinued. Check the need before patient discharge. The [facility] medication list has been updated and reflected in the chart below. Please use the [facility] Med List for ordering home doses during admission. Patient Adherence: Adherent to all medications. Source(s) used in interview: Patient and Medical Records Interview limitations: None Medications Added Medications Removed Medications Modified NA Ferrous sulphate Entresto NA Allergies as of 05/30/2024 (No Known Allergies) Pharmacy Updated SYSTEM SUPPORT DEVELOPER Med List Medication Sig amoxicillin-pot clavulanate 500 [...] tablet by mouth in the morning. Insulin [place], Disposable, (BD INSULIN PEN NEEDLE UF) 29 [...] each nostril 3 (three) times daily. Insulin [place], Disposable, 30 gauge x 5/16" Ndle Use as directed acetaminophen (TYLENOL EXTRA STRENGTH) 500 mg tablet Take 1 tablet by mouth every 6 (six) hours as needed for Pain. Outpatient Pharmacy Contact Information: [facility] [address] [place] [phone] Thank you for the opportunity to participate in the care of this patient. Yaya Gutierrez RPH 1:09 PM, 06/02/2024 [facility] Department of Pharmacy - [facility] Phone: GAL: [phone] IDA Gutierrez RPH [facility] 2024-06-02 01:42:51 Problem: Falls, Risk of Goal: Absence of falls Outcome: Progressing as expected Problem: Bleeding, Risk of Goal: Absence of impaired coagulation signs and symptoms Outcome: Progressing as expected Goal: Absence of active bleeding Outcome: Progressing as expected Problem: Procedure Routine Goal: Absence of post-procedure complications Outcome: Progressing as expected Goal: Knowledge of procedure Outcome: Progressing as expected IDA Noland RN [facility] 2024-06-01 09:38:51 Problem: Falls, Risk of Goal: Absence of falls Outcome: Progressing as expected Problem: Bleeding, Risk of Goal: Absence of impaired coagulation signs and symptoms Outcome: Progressing as expected Goal: Absence of active bleeding Outcome: Progressing as expected Problem: Procedure Routine Goal: Absence of post-procedure complications Outcome: Progressing as expected Goal: Knowledge of procedure Outcome: Progressing as expected IDA De Paz RN [facility] 2024-06-01 00:10:37 Problem: Bleeding, Risk of Goal: Absence of impaired coagulation signs and symptoms Outcome: Progressing as expected Goal: Absence of active bleeding Outcome: Progressing as expected Problem: Procedure Routine Goal: Absence of post-procedure complications Outcome: Progressing as expected Goal: Knowledge of procedure Outcome: Progressing as expected [facility] 2024-05-31 13:16:59 HEMODIALYSIS NURSING NOTE Number Hours: [...] See hemodialysis flowsheet for details of treatment. [facility] 2024-05-31 08:34:37 Hemodialysis Plan of care reviewed [...] Outcome: Progressing as expected Note: Hemodialysis tx [facility] 2024-05-31 05:14:38 Problem: Bleeding, Risk of Goal: Absence of impaired coagulation signs and symptoms Outcome: Progressing as expected Goal: Absence of active bleeding Outcome: Progressing as expected IDA Page RN [facility] 2024-05-30 17:10:31 Pt stable for transfer to ICU 832. Pt to floor with ED RN, power lineman technician. Pt on stretcher Zoll defibrillator and ambu bag present on bed, pt on tele monitoring monitored by RN. [facility] Yoselin Gaines RN [facility] 2024-05-30 16:56:39 Pt report given to CATHY Humphrey receiving pt to room 832. Updated pt on plan of care. Verbalized understanding awaiting transport to ICU [facility] 2024-05-30 16:44:22 Attempt to call pt report to 8B. Unsuccessful d/t no answer. Will attempt again in 5 min [facility] 2024-05-30 16:10:54 SICU not able to take patient at this time due to staffing. TAL CUTTER Ning Blackwood RN [facility] 2024-05-30 12:00:00 Pt medicated for nausea per JUN. Checked allergies and Name and of pt. Explained to the pt why medication is given.updated pt and his son at bedside on plan of care. Awaiting ICU bed assignment. Collected labs ordered. Pt remains NPO. Denies any complaints of pain. [facility] 2024-05-30 10:30:32 Assisted pt to the chair at bedside as requested for comfort. Pts son remains at bedside. Pt remains on bedside color television console monitor. NAD noted [facility] 2024-05-30 10:13:31 Pts son at bedside, updated on pts plan of care. Verbalized understanding. [facility] 2024-05-30 09:32:32 GI consult at bedside [facility] 2024-05-30 09:09:04 Pt lying in bed, with head on head raised for comfort, respirations even and unlabored, no distress noted. Bed locked and lowered with side rail up. Pt understands plan of care and verbalizes understanding. No medications, labs or interventions due at this time. Call sanford with in reach, awaiting ICU bed assignment [facility] 2024-05-30 08:32:24 Pt awaiting GI consult arrival Nephrology discussing consent for HD, signed by pt and witnessed by CATHY Barclay [facility] 2024-05-30 08:31:49 Nephrology at bedside [facility] 2024-05-30 08:02:21 Pt medicated per JUN. Checked allergies and Name and of pt. Explained to the pt why medication is given. Updated pt on plan of care, verbalized understanding. Remains on bedside color television console monitor. Pt refusing keane cath at this time. States he can urinate in the urinal. Urinal at bedside within pt reach. Pt reports he wants something to eat; instructed pt he is NPO at this time meaning he is unable to have anything to eat or drink. Verbalized understanding. Denies any complaints at this time. Warm blanket provided as requested. [facility] 2024-05-30 06:59:42 Pt requested fluconazole IV from pharmacy. Awaiting arrival for admnistration [facility] 2024-05-30 06:58:54 Pt report received from CATHY Garcia. Pt pending ICU bed assignment. Pt remains on bedside color television console monitor [facility] 2024-05-30 05:39:19 Patient medicated per JUN, EKG completed, pt repositioned in stretcher. No other needs at this time. Pt resting in stretcher, pending ICU bed assignment. [facility] 2024-05-30 03:52:23 Unit of blood finished infusing at this time. Vitals updated in flow sheet IDA Grover RN [facility] 2024-05-30 03:27:46 Gen surg at bedside [facility] 2024-05-30 03:05:05 Srinivasa Hernandez is a 63 year old male arrives to ED stretcher via EMS as transfer from [facility] ER accepted by General Surgery. Pt arrives with pRBCs infusing at 150 mL/hr. Unit # [id number]. This is pts second unit of pRBCs tonight. Pt awake, alert, answering questions appropriately. Bilateral lower extremity swelling. Pt with dialysis fistula to R arm, HD cath to R subclavian. Last full dialysis Sunday. Gen Surg paged, returned page and notified of patient arrival. IDA Garcia RN [facility] 2024-05-30 01:50:52 Patient transferred to [facility] ED for diagnosis of anemia and gastric perforation Patient agrees to transfer/admit plan and verbalized understanding of plan of care, family aware of plan Patient awake alert, oriented, resp reg unlabored, skin w/d PIV patent, no s/s infiltration noted, No adverse reaction to medications given while in ED. Report given to [facility] EMS personnel IDA Cardenas RN [facility] 2024-05-30 01:46:38 [facility] ambulance personnel concerned about BP prior to dispo. ERP consulted, no new orders. Patient remains alert, A&Ox4, able to transfer from ED stretcher to EMS stretcher. No suspected transfusion reaction. Care transferred to [facility] EMS at this time. [facility] 2024-05-30 01:15:26 Nurse Report Report given to CATHY Huertas. Chief complaint, assessment findings, infusion verify and orders reviewed. Plan of care discussed via phone with both nurses. Patient/family members verbalized understanding. Sheryl Mckeon RN IDA Mckeon RN [facility] 2024-05-30 00:40:00 Blood transfusion stopped; total volume per infusion pump 423 mL; no apparent S&S of transfusion reaction; pt. Tolerated well; bed locked & lowered with SR upx2; call light within reach; spouse at bedside; plan of care ongoing [facility] 2024-05-29 22:31:00 Blood transfusing @ 150 mL/hr; no apparent S&S of transfusion reaction; bed locked & lowered with SR upx2; call light within reach; spouse at bedside; plan of care ongoing [facility] 2024-05-29 22:16:00 Blood transfusing @ 150 mL/hr; no apparent S&S of transfusion reaction; bed locked & lowered with SR upx2; call light within reach; spouse at bedside; plan of care ongoing [facility] 2024-05-29 22:01:00 Blood transfusing @ 150 mL/hr; no apparent S&S of transfusion reaction; bed locked & lowered with SR upx2; call light within reach; spouse at bedside; plan of care ongoing [facility] 2024-05-29 21:47:00 Blood Infusion Rate Change to 150 mL; no apparent S&S of transfusion reaction; bed locked & lowered with SR upx2; call light within reach; spouse at bedside; plan of care ongoing [facility] 2024-05-29 21:32:00 Transfusion Started @ 75 mL/hr; bed locked & lowered with SR upx2; call light within reach; spouse at bedside; plan of care ongoing [facility] 2024-05-29 21:30:00 System Downtime; unable to scan unit; utilized system downtime flowsheet; bed locked & lowered with SR upx2; call light within reach; spouse at bedside; plan of care ongoing [facility] 2024-05-29 21:30:00 Blood verified with second RN at bedside; Second nurse CATHY Gastelum [facility] 2024-05-29 21:25:00 Pre-transfusion V/S documented [facility] 2024-05-29 18:51:58 Patient arrived via with family c/o low Hgb numbers. Hgb 4.2 per Dialysis nurse. Patient I weak, dizzy, SOB. Dialysis yesterday (MWF) no fluids pulled off due to a low BP. Patient prescribed Midodrine picked up today. Hasn't started yet.Fistula to right arm and tunneled cath to right subclavian. TAL CUTTER Jeny Rodriguez RN [facility] 2024-05-29 18:44:00 Srinivasa Hernandez is a 63 [...] and a peripancreatic abscess. RL: [id number] AFC: [id number] Critical Result: Gastric perforation Findings discussed with [...] what led to the perforation. Spoke with [facility] general surgeon in [place] regarding patient who requested that patient be transferred to [place]. Spoke with Dr. Hernandez (general surgery) at [place] and patient accepted for ER to ER evaluation . Problems Addressed: Anemia, unspecified type: acute illness or injury Gastric perforation: acute illness or injury Amount and/or Complexity of Data Reviewed Labs: ordered. Radiology: ordered. Risk Prescription drug management. Moira Cruz MD 05/30/24 0149 [facility] 2024-05-20 16:03:55 Called Mr. Hernandez and spoke [...] Dulce Maria Mccann DO Internal Medicine, PGY-3 [facility] 2024-05-19 16:14:22 Yellow cab voucher given. Called and set up pending patient to leave the floor once cab is downstairs. IDA Rawls RN [facility] 2024-05-19 15:24:34 Pt awake, alert and oriented at the time of discharge. Pt spouse at bedside. IV removed, all personal belongings are with the patient. Pt understands his follow up appointment and RX at the pharmacy. Pt aware of all medications that need to be taken today. Spouse at bedside understand instructions as well. [facility] 2024-05-19 13:31:16 CURRENTLY HOSPITALIZED. UNABLE TO FILL MEDICATION AT THIS TIME. Received refill request for: Requested Prescriptions Pending Prescriptions Disp Refills FUROSEMIDE 40 mg tablet [Pharmacy Med Name: Furosemide 40 MG Oral Tablet] 120 tablet 0 Sig: TAKE 2 TABLETS BY MOUTH IN THE MORNING , THEN TAKE 2 TABLETS IN THE EVENING JANIYA: 01/22/23-Dr. Gardner NOV : Not Scheduled. Pharmacy: [facility] [address] [place] [id number] [facility] Nancy Cox MA [facility] 2024-05-19 13:19:22 HEMODIALYSIS NURSING NOTE Number Hours: [...] flowsheet for further details of the treatment. [facility] 2024-05-19 09:46:00 Problem: Procedure Routine Goal: Knowledge [...] concerns. Patient acknowledge understanding of treatment plan. [facility] 2024-05-19 09:20:23 Problem: Falls, Risk of Goal: [...] within specified parameters Outcome: Progressing as expected [facility] 2024-05-18 23:32:46 Problem: Falls, Risk of Goal: Absence of falls 05/18/20242331 by Iliana Flores RN Outcome: Progressing as expected 05/18/20242329 by Iliana Flores RN Outcome: Progressing as expected Problem: Discharge Planning Goal: Adequate for discharge 05/18/20242331 by Iliana Flores RN Outcome: Progressing as expected 05/18/20242329 by Iliana Flores RN Outcome: Progressing as expected Problem: Bleeding, Risk of Goal: Absence of impaired coagulation signs and symptoms 05/18/20242331 by Iliana Flores RN Outcome: Progressing as expected 05/18/20242329 by Iliana Flores RN Outcome: Progressing as expected Goal: Absence of active bleeding 05/18/20242331 by Iliana Flores RN Outcome: Progressing as expected 05/18/20242329 by Iliana Flores RN Outcome: Progressing as expected Problem: Infection Risk Goal: Absence of infection 05/18/2024 233 by Iliana Flores RN Outcome: Progressing as expected 05/18/2024 233 by Iliana Flores RN Outcome: Progressing as expected Problem: Skin integrity Impaired (Risk or Actual) Goal: Wound healing 05/18/2024 233 by Iliana Flores RN Outcome: Progressing as expected 05/18/2024 233 by Iliana Flores RN Outcome: Progressing as expected Goal: Prevention of new skin breakdown 05/18/2024 233 by Iliana Flores RN Outcome: Progressing as expected 05/18/20242329 by Iliana Flores RN Outcome: Progressing as expected Problem: Glucose control Goal: Glucose level within specified parameters Outcome: Progressing as expected [facility] Iliana Flores RN [facility] 2024-05-18 23:30:19 Problem: Falls, Risk of Goal: [...] new skin breakdown Outcome: Progressing as expected TAL CUTTER [facility] 2024-05-18 07:19:38 Problem: Falls, Risk of [...] Outcome: Progressing as expected IDA Isaac RN [facility] 2024-05-16 23:32:12 Problem: Falls, Risk of Goal: [...] Outcome: Progressing as expected IDA Pemberton RN [facility] 2024-05-16 21:21:45 HEMODIALYSIS NURSING NOTE Number Hours: [...] for details of treatment. IDA Hogan RN [facility] 2024-05-16 16:00:00 Hemodialysis Plan of care reviewed [...] concerns. Patient acknowledge understanding of treatment plan. [facility] 2024-05-16 13:06:44 Hospital Course Mr. Hernandez is a 63ym w/ PMH HFrEF (ICM, EF 20-25%, s/p ICD), CAD (hx [place], s/p CABG x3 2014, PCI 2013), ESRD [...] associated with dizziness; he presented to the [facility] ED, CTA showed a duodenal GIB, he was life flighted to [place] for IR intervention, and was admitted to the MICU. He received 4u pRBCs and underwent embolization and coiling of the gastroduodenal artery on 05/14. [facility] 2024-05-16 00:54:17 Problem: Falls, Risk of Goal: [...] new skin breakdown Outcome: Progressing as expected [facility] 2024-05-15 00:05:00 HEMODIALYSIS NURSING NOTE Number Hours: [...] NA - patient done at bedside at [place] [address] ICU See hemodialysis flowsheet for details of treatment. [facility] Amanda Zendejas RN [facility] 2024-05-14 20:48:24 Hemodialysis: consent verification, pt identified by name & UH number by 2 staff members, call light in reach. Education: HD UF time & goal, s/s to report to healthcare team during and post treatment: Nausea/vomiting, muscle cramping, headache, low blood pressure, weakness, dizziness, blurred vision, bleeding access and other concerns. [facility] 2024-05-14 20:46:57 Problem: Procedure Routine Goal: Knowledge [...] concerns. Patient acknowledge understanding of treatment plan. TAL CUTTER [facility] 2024-05-14 18:36:41 Problem: Falls, Risk of Goal: Absence of falls Outcome: Progressing as expected TAL CUTTER [facility] 2024-05-14 08:11:47 TRANSITIONAL CARE MANAGEMENT ASSESSMENT 05/14/2024 Srinivasa Hernandez [id number] Srinivasa Hernandez is a 63 year old /White male was admitted on 05/06/24 to [facility], [facility] ICU. He was discharged on 05/12/24 with discharge disposition of HR- Routine Discharge. Admitting Physician: Pb Tavarez Discharge Diagnosis: Principal Diagnosis: Shortness of breath No linked episodes TCM [id number]-dmml-hl-face outreach documentation: Discharge Assessment Chart Assessed: 05/14/24 Chart Reviewed - Post Discharge Call Deferred due to Change in Discharge Status.: (Pt is currently admitted to [facility] TCM Outreach Completed: 05/14/24 Future Appointments: IDA Ordonez RN [facility] 2024-05-14 04:20:18 Problem: Falls, Risk of Goal: Absence of falls Outcome: Progressing as expected DDA Corona RN [facility] 2024-05-13 23:40:00 Pt. Transferred via life flight; 2 RNs at life flight crew IDA Mckeon RN [facility] 2024-05-13 23:05:28 PHI ETA 14 mins (2320) TAL CUTTER Miri Evans RN [facility] 2024-05-13 22:42:54 Called report to CATHY Easley to [facility] 2024-05-13 22:27:43 PHI ETA 1hr-1hr and20 mins ([id number]) [facility] 2024-05-13 21:56:22 [facility], Dr. Gross states pt going to [facility] via PHI [facility] 2024-05-13 20:27:24 CT called by CATHY Gonzales [facility] 2024-05-13 19:55:[address] Gross at bedside [facility] 2024-05-13 19:35:21 Pt. Vomited mild x1; negative for blood [facility] 2024-05-13 18:21:52 Patient reports noticing dark stool this morning with some bright red blood in it. States he doesn't have history of rectal bleeding. States has a little nausea and headache and felt a little dizzy while coming here. Just released from here yesterday, does dialysis M/W/F, did it Sunday here through [facility]. Can't use right arm. TAL CUTTER Chilo Cintron RN [facility] 2024-05-13 18:16:00 EMERGENCY DEPARTMENT ENCOUNTER [facility] Patient Name: Srinivasa Hernandez Date of : 1960 63 year old Exam [facility] Primary Care Physician: Nancy Rodriguez Pre- Hospital Patient Escorted by: Family [5] Mode of Arrival: Personal means [1] EMS Treatment Prior to ED Arrival: SYSTEM SUPPORT DEVELOPER treatment: None ED Events Date/Time Event User [...] Chronic kidney disease Coronary artery disease involving [place] coronary artery without angina pectoris 11/23/2015 Essential hypertension 06/15/2014 ICD10 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 Gout Ischemic cardiomyopathy 06/15/2014 EF 20% per pt 10/04, 15-20% 11/2015 [place] (myocardial infarction) Pacemaker S/P CABG x 3 Type 2 diabetes mellitus without complication 11/23/2015 Tetanus received in last 5 years: Unknown Childhood immunizations: Up-to-date Past Surgical History Past Surgical History: Procedure Laterality Date CABG, ARTERIAL, THREE 03/2015 [place] [employer] IMPLANTABLE CARDIOVERTER DEFIBRILLATOR PLACEMENT 08/2016 PACEMAKERS INSERTION 08/2016 PERMACATH PLACEMENT Right 05/09/2024 Surgeon: Asad Morgan MD; Location: [facility] PTCA W/POSSIBLE STENT 09/2013 [facility] PTFE GRAFT INSERTION Right 05/09/2024 Surgeon: Asad Morgan MD; Location: [facility] Allergies No Known Allergies Social History Tobacco [...] 05/13/241818 93/51 Pulse 05/13/24 1819 74 Resp 05/13/24 181 20 Temp 05/13/241818 36.7 ?C (98 ?F) Temp source 01/21/25 2128 Oral SpO2 05/13/24 1819 100 % Measured on -- Physical Exam [...] 0.01 - 0.09 10*3/uL COMP. METABOLIC PANEL (48103) - Abnormal NA 136 135 - 145 [...] Unit Blood Type O Pos Unit Number [id number] Blood Expiration Date & Time [id number] Status Information Issued Product Identification Red Blood Cells Product Code [id number] Imaging CT Angiogram abdomen/pelvis Preliminary Result EXAM: [...] Other CBC WITH DIFF COMP. METABOLIC PANEL (39398) LIPASE TROPONIN I Lactic Acid Whole Blood [...] components within normal limits COMP. METABOLIC PANEL (91044) - Abnormal; Notable for the following components: [...] other components within normal limits Narrative: The [facility] patient population mean normal value for [...] is not hypoxic. Interpreted. Reassessment:stable Communication with senior business consultant: Dr. Andrew Gibson ICU Limitations to [...] by ground. He will be flown to [place] to the MICU for IR and GI [...] on file Tien Gross Jr., MD Clinical Broadcast Correspondent [facility] Emergency Department [employer] is used frequently and may produce errors. Promptly contact for obvious discrepancies. Tien Gross MD 05/13/242314 [facility] 2024-05-13 18:16:00 Associated Order(s): Critical Care Critical [...] separately billable procedures and treating other patients. [facility] 2024-05-12 13:30:00 Discharge instructions reviewed with pt and spouse. Discussed medications, follow ups and dialysis center info. No questions or concerns voiced at this time. IDA Shearer RN [facility] 2024-05-12 11:44:01 Problem: Falls, Risk of Goal: [...] signs and symptoms Outcome: Progressing as expected [facility] 2024-05-12 11:41:13 HEMODIALYSIS NURSING NOTE Number Hours: 3.0 hours Bath: 2K 3 Ca (standard dialysate) Heparin: None Access: right Catheter permanent IJ Antibiotics/Medications Given: Flush Dialysis Circuit w/ 100mL of 0.9% NaCl (NS) - [id number] Retacrit 93534 units IV Complications/Events of Treatment: Pt completed [...] Back to Unit: Treatment performed at bedside. [facility] ICU 2107 See hemodialysis flowsheet for further details of the treatment. IDA Westfall RN [facility] 2024-05-12 08:12:32 Hemodialysis: consent verification, pt identified by name & UH number by 2 staff members, call light in reach. Education: HD UF time & goal, s/s to report to healthcare team during and post treatment: Nausea/vomiting Muscle cramping SOB Chest pain Headache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 to submit external orders as requested, as soon as possible. Patient to come to [facility] today for labs and return tomorrow for treatment. MD confirmed plan of care. IDA Gordillo RN [facility] 2023-05-03 10:00:00 Addended by: MARY KYA GORDILLO RN on: 05/03/2023 04:57 PM Modules accepted: Orders [facility] 2023-05-01 14:39:08 Call placed to mr. Hernandez and reviewed providers recommendations. Verbalized understanding. Assisted with scheduling f/u for june in [place]. No further questions or concerns at this time [facility] 2023-05-01 12:39:21 I reviewed results from [facility] on 04/02/2023 Numbers look great Would continue with all current medications and keep antoine in June (or earlier with [employer] at different location, if needed or if any new clinical change). Thanks! [facility] 2023-04-25 11:38:51 Addended by: JADA WADSWORTH RN, V on: 04/25/2023 11:38 AM Modules accepted: Orders [facility] 2023-04-25 11:33:54 Please review and advise on follow up appointment Call placed to Mr. Hernandez and reviewed providers recommendations. Verbalized understanding. Noted on chart that pt does not currently have a follow up in HF clinic. Chart reviewed and JANIYA note specified to follow up in 4 weeks. Soonest appointment available in [place] july 08, then july 15. Advised I will review with the provider and call him back for scheduling. MAR updated with correct lasix dose [facility] 2023-04-24 16:36:25 Attempted to call Mr. Hernandez to review providers recommendations. No answer at this time. Vm left to return call at his earliest convenience. [facility] Jada Avalos RN [facility] 2023-04-24 15:24:22 Please keep at current dose of lasix at 80 mg BID (especially since symptoms resolved). Adding Dr. Tejada to thread. Thanks! TAL CUTTER [facility] 2023-04-19 11:21:36 Call placed to Mr. Hernandez and reviewed providers results/recommendations from [facility] and labs. Verbalized understanding. Mr. Hernandez states [...] is having symptoms. Advised to contact Dr. Huffman office at this time to notify them for any further recommendations since they made the most recent medication adjustments. Verbalized understanding. Mr. Hernandez states his swelling has completely resolved at this time. He states Dr. Huffman office is hard to get ahold of but he will try again at this time [facility] Jada Avalos RN [facility] 2023-04-13 14:50:30 Images from the original note were not included. Result Notes Oriana Escalante RN 04/13/2023 2:49 PM CRYSTAL CUTTER Back to Top left requesting call back for review of results/recommendations. Please see encounter note Mayur Moe MD 04/13/2023 2:33 PM CRYSTAL CUTTER Recently sent results from [facility] Here are the labs. Electrolytes WNL Kidney function remains elevated but slightly improved (still CKD stage 4) Needs Nephrology to follow Since [facility] showed normal pressures and good pumping, would continue current meds and dietary restrictions. Thanks! Result Notes Oriana Escalante RN 04/13/2023 2:51 PM CRYSTAL CUTTER Back to Top left requesting call back for review of results/recommendations. Please see encounter note Mayur Moe MD 04/13/2023 2:31 PM CRYSTAL CUTTER Results from [facility] are WNL Pressures are normal, as well as amount of blood pumped. Continue current medications. Thank TAL CUTTER Oriana Escalante RN [facility] 2022-11-24 11:19:18 Formatting of this n ote might be different from the original. Received forms from [facility] and [facility] will put in Dr. Cabrera folder for review. Brooke Robert MA [facility]
[2024-12-18] MEDS ORDERED: NA CHLORIDE 0.9% 250 ML ONE (12:22)
[2024-12-18 12:35] LABS: Absolute Lymphocytes (CBC) 0.5 K/uL (0.7-4.9); Hematocrit 42.9 % (39.6-49.0); Hemoglobin 14.0 g/dL (13.6-17.9); MCH 30.1 pg (27.0-35.0); MCHC 32.6 g/dL (32.0-36.0); MCV 92.4 fL (80-100); MPV 8.2 fL (7.6-11.3); Nucleated RBC Absolute Count 0.0 (0-0); Nucleated Red Blood Cells % 0.1 % (0-0); RBC Red Blood Cell Count 4.65 M/uL (4.33-5.43); White Blood Count 5.60 thou/uL (4.3-10.9)
[2024-12-18 12:53] LABS: ALT/SGPT 70.0 U/L (16-61); Albumin 2.6 g/dL (3.4-5.0); Albumin/Globulin Ratio 0.4 (1.1-1.8); Alkaline Phosphatase 156.0 U/L (45-117); Anion Gap 11.3 mEq/L (5.0-15.0); BUN Blood Urea Nitrogen 39.0 mg/dL (7-18); Globulin 6.4 g/dL (2.3-3.5); Glucose Level 152.0 mg/dL (74-106)
[2024-12-18] MEDS ORDERED: MIDODRINE HCL 5 MG TABLET ONE (12:53)
[2024-12-18 12:54] LABS: AST/SGOT 112.0 U/L (15-37); Potassium 3.3 mEq/L (3.5-5.1)
--- NOTE | 2024-12-18 13:25 | RAD REPORT ---
EXAMINATION: CT Abdomen Pelvis Wo Contrast CLINICAL INDICATION: Male, 64 years old. ABD PAIN TECHNIQUE: CT abdomen and pelvis was performed, without IV contrast, as per department protocol. Axia l, sagittal and coronal reconstructions were obtained. One or more of the following dose reduction techniques were used: Automated exposure control, adjustment of the mA and kV according to the patien t size, and iterative reconstruction. Unless otherwise specified, incidental findings do not require dedicated imaging follow-up. COMPARISON: 12/24/2019 and 07/29/2024. FINDINGS: The lack of intravenous contrast limits the sensitivity of this exam for evaluation of solid visceral organs, vascular structures, and retroperitoneum. LOWER CHEST: Moderate to large left layering pleural effusion with underlying dependent airspace opac ification suggesting atelectasis. Trace left pleural effusion.. LIVER: Normal in size and contour. No focal lesion. BILIARY SYSTEM: No suspicious abnormalities. SPLEEN: Normal size. No focal lesion. PANCREAS: No mass, ductal dilation, or trish-pancreatic fluid. ADRENALS: Normal; no mass. KIDNEYS AND URETERS: Normal size and contour. No hydronephrosis. URINARY BLADDER: Decompressed limiting evaluation. GASTROINTESTINAL TRACT: No evidence of bowel obstruction, free air or abscess. Large volume free asci calderon. APPENDIX: Normal appendix. LYMPH NODES: No lymphadenopathy. MUSCULOSKELETAL: No acute or suspicious osseous abnormality. ADDITIONAL FINDINGS: None. IMPRESSION: Large volume free ascites, progressive since prior exam. Moderate to large left pleural effusion, likely stable. Trace right pleural effusion, improved since prior exam. No other acute process visualized.
--- NOTE | 2024-12-18 14:05 | EDPHYS ---
Physician Documentation [facility] Name: Srinivasa Hernandez Age: 64 yrs Sex: Male : 1960 Arrival Date: 12/18/2024 Time: 11:25 Bed 23 Private MD: ED Physician Rich Ramirez HPI: 12/18 15:11 This 64 yrs old Male presents to ER via Wheelchair with complaints of dr5 Abdominal Pain. 15:11 The patient presents with abdominal distention that is diffuse. Onset: The dr5 symptoms/episode began/occurred acutely. Patient is a 64-year-old male with history of diabetes, hypertension, MS, GERD, and on dialysis due to end-stage renal disease Sunday. Patient reports that he was dialyzed yesterday. Patient reports intermittent left upper quadrant abdominal pain and swelling that is been going on since yesterday. Patient denies fever, nausea, vomiting, diarrhea, chest pain, shortness of breath. Patient reports he still makes urine and does not have any difficulty or pain with urinating.. Historical: - Allergies: 11:55 No Known Drug Allergies; me1 - PMHx: 11:55 Diabetes - IDDM; End stage renal disease; on HD M,W, F; Hypertension; Myocardial me1 infarction; Gastroesophageal reflux disease; stomach ulcer; - PSHx: 11:55 defib; triple bypass; me1 - Immunization history:: Adult Immunizations up to date. - Infectious Disease History:: Denies. - Social history:: Smoking status: Patient reports the use of cigarette tobacco products, 1 pack a week. ROS: 15:11 Constitutional: as per hpi dr5 Exam: 15:11 Constitutional: This is a well developed, well nourished patient who is awake, alert, dr5 and in no acute distress. Head/Face: Normocephalic, atraumatic. ENT: Nares patent. No nasal discharge, no septal abnormalities noted. Tympanic membranes are normal and external auditory canals are clear. Oropharynx with no redness, swelling, or masses, exudates, or evidence of obstruction, uvula midline. Mucous membranes moist. Chest/axilla: Normal chest wall appearance and motion. Nontender with no deformity. No lesions are appreciated. Cardiovascular: Regular rate and rhythm with a normal S1 and S2. Normal PMI, no JVD. No pulse deficits. Respiratory: Lungs have equal breath sounds bilaterally, clear to auscultation. No rales, rhonchi or wheezes noted. No increased work of breathing, no retractions or nasal flaring. Back: No spinal tenderness. No costovertebral tenderness. Full range of motion. Skin: Warm, dry with normal turgor. Normal color with no rashes, no lesions, and no evidence of cellulitis. MS/ Extremity: Pulses equal, no cyanosis. Neurovascular intact. Full, normal range of motion. Neuro: Awake and alert, GCS 15, oriented to person, place, time, and situation. Cranial nerves II-XII grossly intact. Motor strength 5/5 in all extremities. Sensory grossly intact. Cerebellar exam normal. Normal gait. 15:11 Abdomen/GI: Inspection: distension, that is mild, Bowel sounds: normal, Palpation: abdomen is soft and non-tender, in all quadrants, Rectal exam: Indicators: Liver: no appreciated palpable abnormalities, Vital Signs: 11:50 BP 82 / 54; Pulse 86; Resp 17; Temp 98.4; Pulse Ox 98% ; Weight 64.7 kg; Height 5 ft. 9 me1 in. ; Pain 3/10; 12:57 BP 105 / 56; Pulse 74; Resp 16; Pulse Ox 97% on R/A; jb4 13:40 BP 102 / 60; Pulse 76; Resp 16; Pulse Ox 98% on R/A; jb4 14:15 BP 92 / 58; Pulse 78; Resp 16; Pulse Ox 100% on R/A; jb4 11:50 Body Mass Index 21.06 (64.70 kg, 175.26 cm) me1 11:50 Pain Scale: Adult me1 14:15 provider notified of blood pressure, okayed pt for discharge jb4 MDM: 11:36 Medical Screening Exam initiated dr5 15:11 Differential diagnosis: diverticulitis, gastritis, gastroesophageal reflux disease, dr5 non-specific abd pain. Data reviewed: vital signs, nurses notes, lab test result(s), CBC, white blood cell count, hemoglobin, hematocrit, platelets, electrolytes, sodium, potassium, chloride, serum bicarbonate, BUN, creatinine, serum glucose, radiologic studies, CT scan. Consideration of Admission/Observation Escalation of care including admission/observation considered. Escalation considered patient found to have abnormality on CT scan or pain did not resolve.. I considered the following discharge prescriptions or medication management in the emergency department I discussed and recommended Over The Counter medications, Medications were administered in the Emergency Department. See MAR. Care significantly affected by the following chronic conditions: Diabetes, Hypertension, MS, GERD, end-stage renal disease. Care significantly affected by the following Social Determinants of Health: Poor access to healthcare and/or lack of insurance, Poor access to transportation, Problems related to employment. Counseling: I had a detailed discussion with the patient and/or guardian regarding the historical points, exam findings, and any diagnostic results supporting the discharge/admit diagnosis, the presence of at least one elevated blood pressure reading (>120/80) during this emergency department visit, lab results, radiology results, the need for outpatient follow up, for definitive care, a family practitioner, Nephrology, to return to the emergency department if symptoms worsen or persist or if there are any questions or concerns that arise at home. Medication response: Midodrine, NS. Response to treatment: the patient's symptoms have markedly improved after treatment. Special discussion: Based on the patient's Hx, exam, and Dx evaluation, there is no indication for emergent surgery or inpatient Tx. It is understood by the patient/guardian that if the Sx's persist or worsen they need to return immediately for re-evaluation. I discussed with the patient/guardian in detail that at this point there is no indication for admission to the hospital. It is understood, however, that if the symptoms persist or worsen the patient needs to return immediately for re-evaluation. Based on the history and exam findings, there is no indication for further emergent testing or inpatient evaluation. Nephrology. ED course: Recommended patient have dialysis tomorrow at 6 AM. Patient reports he is feeling better. No acute abnormalities noted on CT scan. Patient has ascites which is expected. No tenderness to palpation or fever concerning for SBP. Labs printed as well as CT scan to take with him to primary care doctor for further management. Discussed elevated liver enzymes. All questions answered. Strict ER precautions given to patient.. 12/18 12:08 Order name: CBC with Diff; Complete Time: 12:38 dr5 12/18 12:08 Order name: CMP; Complete Time: 13:13 dr5 12/18 12:08 Order name: CT Abd/Pelvis - Without Contrast; Complete Time: 13:27 dr5 Administered Medications: 12:20 Drug: NS 0.9% IV 250 ml IV at bolus once; to be given as a bolus over 30 minutes Route: jb4 IV; Rate: bolus; Site: left forearm; 12:50 Follow up: Response: No adverse reaction; Marked relief of symptoms; Blood pressure is jb4 elevated; IV Status: Completed infusion; IV Intake: 250ml 12:57 Drug: midodrine 5 mg PO once Route: PO; jb4 13:49 Follow up: Response: No adverse reaction; Marked relief of symptoms; Blood pressure is jb4 elevated 13:49 Not Given (Patient Refused; Reports feeling better.): [id number] mg PO once jb4 Disposition: 12/19 13:38 Co-signature as Attending Physician, Rich Ramirez MD I agree with the assessment and jameson plan of care. Disposition Summary: 12/18/24 14:05 Discharge Ordered Notes: Location: Home(12/18/24 14:05) dr5 Condition: Stable(12/18/24 14:05) dr5 Diagnosis - End stage renal disease(12/18/24 14:05) dr5 Followup: dr5 - With: Emergency Department - When: As needed - Reason: Worsening of condition Followup: dr5 - With: Private Physician - When: 1 - 2 days - Reason: Recheck today's complaints, Continuance of care, Re-evaluation by your physician Discharge Instructions: - Discharge Summary Sheet dr5 - End-Stage Kidney Disease dr5 Forms: - Medication Reconciliation Form dr5 - Patient Portal Instructions dr5 - Leadership Thank You Letter dr5 Signatures: Dispatcher [employer] Rich Desai MD MD cha Bryson, James, RN RN jb4 Marlene Enrique RN RN me1 Brandon Garcia, AUTOMATIC FANCY MACHINE OPERATOR-C AUTOMATIC FANCY MACHINE OPERATOR-Cdr5 Corrections: (The following items were deleted from the chart) 12/18 12:09 12:09 Abdomen Pelvis Wo Con+CT.RAD.BRZ ordered. MELISSA SHOEMAKERMS 13:44 13:44 Home dr5 dr5 13:44 13:44 Stable dr5 dr5 13:44 13:44 End stage renal disease dr5 dr5
--- NOTE | 2024-12-18 14:05 | ER ---
Nurse's Notes [facility] Name: Srinivasa Hernandez Age: 64 yrs Sex: Male : 1960 Arrival Date: 12/18/2024 Time: 11:25 Bed 23 Private MD: Diagnosis: End stage renal disease Presentation: 12/18 11:50 Chief complaint: Patient states: LUQ pain that started a few days ago. Only gets relief me1 when he lays on his back. Reports an episode of nausea yesterday. HD patient M,W,F and he had dialysis yesterday. Pain level 3/10, worst 8/10. Coronavirus screen: At this time, the client does not indicate any symptoms associated with coronavirus-19. Ebola Screen: No symptoms or risks identified at this time. Initial Sepsis Screen: Does the patient meet any 2 criteria? No. Patient's initial sepsis screen is negative. Does the patient have a suspected source of infection? No. Patient's initial sepsis screen is negative. Risk Assessment: Do you want to hurt yourself or someone else? Patient reports no desire to harm self or others. Onset of symptoms was December 15, 2024. 11:50 Method Of Arrival: Wheelchair me1 11:50 Acuity: MARILUZ 3 me1 Historical: - Allergies: 11:55 No Known Drug Allergies; me1 - PMHx: 11:55 Diabetes - IDDM; End stage renal disease; on HD M,W, F; Hypertension; Myocardial me1 infarction; Gastroesophageal reflux disease; stomach ulcer; - PSHx: 11:55 defib; triple bypass; me1 - Immunization history:: Adult Immunizations up to date. - Infectious Disease History:: Denies. - Social history:: Smoking status: Patient reports the use of cigarette tobacco products, 1 pack a week. Screenin:15 [facility] ED Fall Risk Assessment (Adult) History of falling in the last 3 months, jb4 including since admission No falls in past 3 months (0 pts) Confusion or Disorientation No (0 pts) Intoxicated or Sedated No (0 pts) Impaired Gait Yes (1 pt) Mobility Assist Device Used Yes (1 pt) Altered Elimination No (0 pt) Score/Fall Risk Level 0 - 2 = Low Risk Oriented to surroundings, Maintained a safe environment. Abuse screen: Denies threats or abuse. Nutritional screening: No deficits noted. Tuberculosis screening: No symptoms or risk factors identified. Assessment: 12:30 General: Appears in no apparent distress. uncomfortable, Behavior is calm, cooperative, jb4 appropriate for age. Pain: Complains of pain in abdomen Pain does not radiate. Pain currently is 3 out of 10 on a pain scale. Is continuous, Alleviated by rest. Neuro: Level of Consciousness is awake, alert, obeys commands, Oriented to person, place, time, situation. Cardiovascular: Patient's skin is warm and dry. Respiratory: Airway is patent Respiratory effort is even, unlabored, Respiratory pattern is regular, symmetrical. GI: Abdomen is round distended. Derm: Skin is intact, Skin is pink, warm \T\ dry. Musculoskeletal: Circulation, motion, and sensation intact. Range of motion: intact in all extremities. 13:07 Reassessment: Patient appears in no apparent distress at this time. Patient and/or jb4 family updated on plan of care and expected duration. Pain level reassessed. Patient is alert, oriented x 3, equal unlabored respirations, skin warm/dry/pink. 13:40 Reassessment: Patient appears in no apparent distress at this time. Patient and/or jb4 family updated on plan of care and expected duration. Pain level reassessed. Patient is alert, oriented x 3, equal unlabored respirations, skin warm/dry/pink. 14:19 Reassessment: Patient appears in no apparent distress at this time. Patient and/or jb4 family updated on plan of care and expected duration. Pain level reassessed. Patient is alert, oriented x 3, equal unlabored respirations, skin warm/dry/pink. Pt wanting to go home, provider notified. Vital Signs: 11:50 BP 82 / 54; Pulse 86; Resp 17; Temp 98.4; Pulse Ox 98% ; Weight 64.7 kg; Height 5 ft. 9 me1 in. ; Pain 3/10; 12:57 BP 105 / 56; Pulse 74; Resp 16; Pulse Ox 97% on R/A; jb4 13:40 BP 102 / 60; Pulse 76; Resp 16; Pulse Ox 98% on R/A; jb4 14:15 BP 92 / 58; Pulse 78; Resp 16; Pulse Ox 100% on R/A; jb4 11:50 Body Mass Index 21.06 (64.70 kg, 175.26 cm) me1 11:50 Pain Scale: Adult me1 14:15 provider notified of blood pressure, okayed pt for discharge jb4 ED Course: 11:28 Patient arrived in ED. mr 11:36 Brandon Garcia, SWITCHBOARD TROUBLESHOOTER-[facility] 11:36 Rich Ramirez MD is Attending Physician. dr5 11:55 Triage completed. me1 11:55 Arm band placed on Patient placed in an exam room. me1 12:04 Javid Bonner, RN is Primary Nurse. jb4 12:20 Inserted saline lock: 22 gauge in left forearm, using aseptic technique. Blood jb4 collected. 12:29 CMP Sent. jb4 12:29 CBC with Diff Sent. jb4 12:30 Patient has correct armband on for positive identification. Bed in low position. Call jb4 light in reach. Side rails up X 1. Provided Education on: plan of care. 12:33 CT Abd/Pelvis - Without Contrast In Process Unspecified. EDMS 14:22 No provider procedures requiring assistance completed. intact, bleeding controlled, No jb4 redness/swelling at site. Pressure dressing applied. Administered Medications: 12:20 Drug: NS 0.9% IV 250 ml IV at bolus once; to be given as a bolus over 30 minutes Route: jb4 IV; Rate: bolus; Site: left forearm; 12:50 Follow up: Response: No adverse reaction; Marked relief of symptoms; Blood pressure is jb4 elevated; IV Status: Completed infusion; IV Intake: 250ml 12:57 Drug: midodrine 5 mg PO once Route: PO; jb4 13:49 Follow up: Response: No adverse reaction; Marked relief of symptoms; Blood pressure is jb4 elevated 13:49 Not Given (Patient Refused; Reports feeling better.): [id number] mg PO once jb4 Medication: 14:15 VIS not applicable for this client. jb4 Intake: 12:50 IV: 250ml; Total: 250ml. jb4 Outcome: 13:44 Discharge ordered by . dr5 14:05 Discharge ordered by . dr5 14:22 Discharged to home ambulatory, jb4 14:22 Condition: stable 14:22 Discharge instructions given to patient, Instructed on discharge instructions, follow up and referral plans. Demonstrated understanding of instructions, follow-up care, 14:23 Patient left the ED. jb4 Signatures: Dispatcher [employer] EDAna Lares, Reg Reg mr Javid Bonner, RN RN jb4 Marlene Enrique, CATHY RN me1 Brandon Garcia, DARSHAN-C SWITCHBOARD TROUBLESHOOTER-[facility]5
[2024-12-18 21:16] VITALS: TEMP 98.4
[2024-12-18 21:21] VITALS: BP 92/58; O2SAT 100
== END 2024-12-18 14:23 | disposition home or self-care (01) ==
LOC: ER 11:25
DX: E11.22 Type 2 diabetes mellitus with diabetic chronic kidney disease (principal); I12.0 Hypertensive chronic kidney disease with stage 5 chronic kidney disease or end stage renal disease; N18.6 End stage renal disease; Z99.2 Dependence on renal dialysis; Z95.1 Presence of aortocoronary bypass graft; Z95.810 Presence of automatic (implantable) cardiac defibrillator
CPT/HCPCS: 96365; 85025; 36415; 80053; 74176; 99284; J7050